=== PATIENT | female | born 1980 | race Caucasian/White ===

== ENCOUNTER 2019-03-11 15:28 | Inpatient (IN) ==
[~2019-03-11 15:28] MED LIST: ETOMIDATE 2 MG/ML 20 ML VIAL IV ONE; ROCURONIUM BROMIDE 10 MG/ML 10 ML VIAL IV ONE
--- OUTSIDE RECORDS SUMMARY | 2019-03-11 15:31 | External Medical Summary | Continuity of Care Document ---
:1980 Author Name Per MAnjum Address Unavailable Unavailable , Care Team Providers Name Role Phone Unavailable Unavailable Unavailable PCP, UNKNOWN Unavailable Unavailable Unavailable Unavailable Unavailable Problems Active medical history not documented Allergies and Adverse Reactions No Known Drug Allergies (Allergy) Medications metFORMIN HCl - 500 MG Oral Tablet; TAKE 2 TABLETS TWICE JULIOCESAR LY , M.D. Refills: 0 Omeprazole 20 MG Oral Tablet Delayed Release; Take 1 tablet daily , M.D. Refills: 0 raNITIdine HCl - 150 MG Oral Tablet; TAKE 1 TABLET TWICE JULIOCESAR LY. , M.D. Refills: 0 Synthroid 300 MCG Oral Tablet; TAKE 1 TABLET Daily TDD:350 m cg , M.D. Refills: 0 Synthroid 50 MCG Oral Tablet; TAKE 1 TABLET Daily TDD:350 mc g , M.D. Refills: 0 Zoloft 100 MG Oral Tablet; TAKE 1 TABLET Daily TDD:150 mg , M.D. Refills: 0 Zoloft 50 MG Oral Tablet; TAKE 1 TABLET Daily TDD:150 mg , M .D. Refills: 0 Procedures Procedures not documented Immunizations Immunizations not documented Plan of Treatment Planned Observations Planned Goals not documented Results No Known Results Results not documented
[2019-03-11] MEDS ORDERED: RAPID SEQUENCE INDUCTION BAG ONE (15:38)
[2019-03-11 15:58] LABS: iSTAT Creatinine 1.1 mg/dl (0.6-1.3); iSTAT Hemoglobin 13.3 g/dl (12.0-16.0); iSTAT Ionized Calcium 1.13 mmol/l (1.12-1.32); iSTAT Potassium 5.6 mEq/L (3.3-5.0)
[2019-03-11 16:06] LABS: Hematocrit (blood only) 37.7 % (37-47); INR 1.2 (0.9-1.1); Mean Corpuscular Hgb Conc 29.2 g/dL (32-36); Mean Corpuscular Volume 80.4 fL (80-100); Mean Platelet Volume 9.6 fL (7.4-10.4); Partial Thromboplastin Ratio 0.8; Partial Thromboplastin Time 22.9 Seconds (21.0-31.0); Platelet Count 239 K/uL (130-400); Prothrombin Time 11.8 Seconds (9.0-12.0); RDW Coefficient of Variation 14.9 % (11.5-14.5); RDW Standard Deviation 43.4 fL (36.4-46.3); Red Blood Count 4.69 M/uL (4.2-5.4); White Blood Count 16.79 K/uL (4.8-10.8)
[2019-03-11 16:12] LABS: Albumin Level 3.9 gm/dl (3.4-5.0); BUN Creatinine Ratio 10.5 (10-20); Calcium 7.5 mg/dl (8.5-10.1); Creatinine Clr Calc Pharmacy 80.8 ml/min; Est GFR (African American) 76.3; Est GFR (Non-African American) 65.8; Magnesium 2.4 mg/dl (1.8-2.4); Potassium 5.5 mmol/L (3.5-5.1)
--- NOTE | 2019-03-11 16:12 | XRay Report ---
XR chest 1V portable CLINICAL HISTORY: Atypical chest pain. Overdose. COMPARISON STUDY: No previous studies for comparison. FINDINGS: The heart is normal in size. There is an endotracheal tube 3 centimeters above the milla.[ There is no pneumothorax on the supine study. There is no focal pulmonary consolidation. There are no pleural effusions. There is mild vascular and interstitial prominence, a finding which may be accent uated by the AP supine technique. Radiographic follow-up is recommended. There are postsurgical deleon es present within the cervical spine. IMPRESSION: 1. Endotracheal tube 3 cm above the milla 2. Mild vascular and interstitial prominence, a finding which may in part be accentuated by the AP acevedo pine technique 3. No evidence of lobar consolidation Electronically signed by: Matt Guillen M.D. 03/11/2019 4:11 PM
[2019-03-11 16:14] LABS: Acetaminophen < 2 ug/ml (10-30); Salicylate < 1.7 mg/dl (2.8-20)
[2019-03-11] MEDS ORDERED: PIPERACILL/TAZOBAC CONSULT ACTIVE PRN ×2 (16:16→19:38)
[2019-03-11] MEDS ORDERED: PIPERACILLIN/TAZOBACTAM 4.5 GM/120 ML BAG IV ONE (16:16)
[2019-03-11 16:17] LABS: Pregnancy Test, Serum Negative (Negative)
[2019-03-11 16:19] LABS: Bilirubin,Total 0.3 mg/dl (0.2-1); Globulin 3.8 gm/dl (2.5-4.0); Total Protein 7.7 gm/dl (6.4-8.2); Troponin I 0.061 ng/ml (0-0.045)
[2019-03-11] MEDS ORDERED: OPTIRAY 320 125ml IV PRN (16:22)
[2019-03-11 16:23] LABS: Appearance Urine Clear (Clear); Bacteria Urine Automated Negative (Negative); Bilirubin Urine Negative (Negative); Blood Urine 1+ (Negative); Color Urine Yellow; Epithelial Cell Urine Auto >30 /lpf (0-5); Glucose Urine UA Negative (Negative); Ketones Urine Negative (Negative); Leukocyte Esterase Urine Negative (Negative); Nitrite Urine Negative (Negative); Protein Urine 1+ (Negative); RBC Urine Automated 0-4 /hpf (0-4); Urobilinogen Urine Negative (Negative)
[2019-03-11 16:23] LABS: Basophils # (auto) 0.02 K/uL (0-0.2); Basophils % (auto) 0.1 %; Eosinophils # (auto) 0.02 K/uL (0-0.5); Eosinophils % (auto) 0.1 %; Hypochromasia Present; Immature Granulocytes # (auto) 0.06 K/uL (0.00-0.02); Immature Granulocytes % (auto) 0.4 %; Lymphocytes # (auto) 1.08 K/uL (1.2-3.4); Lymphocytes % (auto) 6.4 %; Monocytes % (auto) 4.8 %; Neutrophils # (auto) 14.81 K/uL (1.4-6.5); Neutrophils % (auto) 88.2 %; Ovalocytes 1+
[2019-03-11 16:33] LABS: Renal Epithelial Cells Urine 0-5 /lpf (0-5)
--- NOTE | 2019-03-11 16:35 | CT Scan Report ---
CT head/brain wo con CLINICAL HISTORY: altered MS UNRESPONSIVE PATIENT COMPARISON STUDY: No previous studies for comparison. TECHNIQUE: Axial CT of the brain is performed from the vertex to the skull base. IV contrast was not administered for this examination. A dose lowering technique was utilized adhering to the principles of ALARA. CT DOSE: FINDINGS: No intra or extra-axial mass lesions are visualized. There is no CT evidence of acute cortical infarc tion. There is no evidence of midline shift. There is no acute hemorrhage. No calvarial fractures ar e visualized. The study is mildly compromised due to mild motion artifact. There is no evidence of pathologic ventricular dilatation. There is no evidence of acute sinusitis IMPRESSION: No acute intracranial findings Electronically signed by: Matt Guillen M.D. 03/11/2019 4:33 PM
--- NOTE | 2019-03-11 16:39 | CT Scan Report ---
CT ANGIOGRAM OF THE CHEST CLINICAL HISTORY: Unresponsive patient. Possible acute pulmonary embolism. ATYPICAL CHEST PAIN. COMPARISON STUDY: Chest x-ray dated 03/11/2019 TECHNIQUE: Following the IV administration of 120 mL of Optiray-320, CT angiogram of the thorax was p erformed from the thoracic inlet to the lung bases utilizing the pulmonary embolus protocol. Images a re reviewed in the axial, sagittal, and coronal planes. IV contrast was administered without complica tion. MIP imaging was performed. A dose lowering technique was utilized adhering to the principles o f ALARA. CT DOSE: FINDINGS: Visualized portions the upper abdomen reveal hepatic steatosis. No pathologically enlarged axillary mediastinal or hilar lymph nodes were visualized. There was no evidence of thoracic aortic dilatation. There were no pulmonary artery filling defects to indicate acute pulmonary embolism. No pleural effusions are visualized. There are patchy bilateral airspace opacities with dense lower lobe atelectasis/consolidation. Aspira tion must be considered. There is mild interlobular septal edema visualized towards the lung apices. There is an endotracheal tube 22 mm above the milla. IMPRESSION: 1. No evidence of acute pulmonary pulmonary embolism 2. Endotracheal tube 22 mm above the milla 3. Mild interlobular septal edema visualized towards the lung apices 4. Patchy bilateral airspace opacities with dense dependent lower lobe atelectasis/consolidation. Asp iration must be considered. Electronically signed by: Matt Guillen M.D. 03/11/2019 4:37 PM
--- NOTE | 2019-03-11 16:41 | CT Scan Report ---
CT angio head w con CLINICAL HISTORY: Unresponsive patient with altered mental status. TECHNIQUE: CT angiography of the head was performed in a dynamic helical fashion during intravenous a dministration of 120 cc of Optiray 320. MIP imaging was performed. A dose lowering technique was util ized adhering to the principles of ALARA. CT DOSE: COMPARISON STUDY: Noncontrast head CT dated 03/11/2019 FINDINGS: There are no lesion suspicious for aneurysm. There are no major intracranial branch occlusi ons. The dural venous sinuses appear patent. IMPRESSION: Normal study. Electronically signed by: Matt Guillen M.D. 03/11/2019 4:40 PM
[2019-03-11 16:48] LABS: Amphetamines+Metham, Urine Neg (Neg); Barbiturates, Urine Pos (Neg); Benzodiazepine, Urine Pos (Neg); Cocaine, Urine Neg (Neg); MDMA (Ecstacy), Urine Neg (Neg); Methadone, Urine Neg (Neg); Opiate, Urine Pos (Neg); Phencyclidine, Urine Neg (Neg)
--- NOTE | 2019-03-11 16:48 | CT Scan Report ---
CT angio neck with con CLINICAL HISTORY: Altered mental status. Possible stroke. COMPARISON STUDY: No previous studies for comparison. TECHNIQUE: CT angiography was performed from the aortic arch to the skull base. MIP imaging was perfo rmed. The patient was scanned in a dynamic helical fashion during intravenous administration of 120 c c of Optiray 320. A dose lowering technique was utilized adhering to the principles of ALARA. CT DOSE: 2600.27 mGy.cm Technique: CT angiogram of the carotid and vertebral arteries was obtained using intravenous contrast and 3-D reconstruction. NASCET criteria was utilized. Findings: The visualized portions of lung apices reveal endotracheal tube. There is mild apical interlobular se ptal edema. There are bilateral pulmonary airspace opacities. The right carotid revealed no evidence of aneurysm and no evidence of dissection. There is no evidenc e of hemodynamic significant stenosis. The left carotid revealed no evidence of hemodynamic significant stenosis. There is no evidence of an eurysm. There is no evidence of dissection. There is a dominant left vertebral artery. Evaluation of the small right vertebral artery is limited due to artifact from cervical spinal hardware. The right vertebral artery is difficult to visualize a t the C5-C7 levels.. The proximal and distal right vertebral artery appear patent. IMPRESSION: 1. No evidence of hemodynamic significant carotid artery stenosis or dissection 2. Dominant left vertebral artery, no evidence of left vertebral artery stenosis or dissection 3. Nondiagnostic evaluation of the small right vertebral artery at the C5-C7 levels due to artifact f rom cervical spinal hardware Electronically signed by: Matt Guillen M.D. 03/11/2019 4:47 PM
--- NOTE | 2019-03-11 16:56 | CT Scan Report ---
CT SCAN OF THE ABDOMEN AND PELVIS WITH IV CONTRAST CLINICAL HISTORY: Unresponsive. COMPARISON STUDY: Pelvic ultrasound dated 08/24/2009. Abdominal ultrasound dated 08/16/2009. TECHNIQUE: Following the IV administration of 120 cc of Optiray 320, CT scan of the abdomen and pelv is is performed from the lung bases to the proximal femora. Images are reviewed in the axial, sagitta l, and coronal planes. IV contrast was administered without complication. A dose lowering technique w as utilized adhering to the principles of ALARA. The examination is degraded by motion artifact, as w ell as by streak artifact from the arms which could not elevated above the abdomen. FINDINGS: Lung bases: The heart is normal in size and without pericardial effusion. There is dense bibasilar ai rspace consolidation. Trace pleural effusions are noted. Liver: The contrast-enhanced liver is enlarged, measuring 21.5 cm in length. The liver demonstrates d iffusely heterogeneously diminished attenuation consistent with hepatic steatosis. There is nodularit y of the hepatic surface contour indicating early change of cirrhosis. There is no intrahepatic bilia ry ductal dilatation. The hepatic veins and portal veins are patent. There is recanalization of the p eriumbilical vein. Gallbladder: Surgically absent noting clips in the gallbladder fossa. Spleen: The spleen is enlarged, measuring 16.9 cm in length. Pancreas: Unremarkable. Adrenal glands: Adrenal glands appear hyperemic. This is a nonspecific finding and can be seen in set ting of hypotension/shock. Kidneys: The contrast enhanced kidneys are normal in size and without hydronephrosis. The kidneys enh ance symmetrically. There is an 11 mm low-attenuation lesion in the lower pole of the left kidney see n on image #[id number]. Abdominal vasculature: The abdominal aorta is normal in course and caliber. Bowel: Postoperative change is noted in the stomach. There is mild colonic fecal retention. No bowel obstruction is seen. The appendix is well-visualized and normal. Peritoneum: There is no intraperitoneal free air or abdominal ascites. Lymphadenopathy: None. Pelvic viscera: The bladder is partially decompressed and a Du catheter. Foci of intraluminal gas are likely related to instrumentation. The uterus is normal as imaged. There is a dilated tubular str ucture in the left adnexa seen on image #449. The measures up to 12 mm, and the wall appears thickene d and hyperemic. A similar-appearing dilated tubular structure seen in the right adnexa on image #410 . Skeletal structures: No lytic or blastic lesions are seen. IMPRESSION: 1. There is dense bibasilar airspace consolidation, typical in appearance for pneumonia. Clinical cor relation will be required and radiographic follow-up to resolution is recommended. 2. The liver is enlarged, cirrhotic in morphology, and steatotic. 3. Splenomegaly and recanalization of the periumbilical vein indicate portal hypertension. 4. The adrenal glands appear hyperemic. This is a nonspecific finding and can be seen in setting of h ypotension/shock. Clinical correlation will be required. 5. There is an indeterminant 11 mm low-attenuation lesion in the lower pole of the left kidney. This does not represent a simple cyst. Correlation with a nonemergent MRI of the kidneys recommended for f urther assessment. 6. There are dilated tubular structures seen in the adnexa bilaterally. These appear to be thick-wall ed and hyperemic, and may represent hydrosalpinx. Infection is not excluded. Gynecology follow-up is recommended. 7. Additional findings as above. Electronically signed by: Davide Vines M.D. 03/11/2019 4:55 PM
[2019-03-11] MEDS ORDERED: SODIUM CHLORIDE 0.9% 1000ML 1,000 ML IV ONE ×2 (16:57→17:44)
[2019-03-11] MEDS ORDERED: LIDOCAINE HCL 1% 20 ML VIAL INFIL ONE (17:15)
--- NOTE | 2019-03-11 17:40 | History & Physical Report ---
Date of Service March 11, 2019 Assessment & Plan (1) Unresponsive: Uncertain etiology, intubated prior to ED Starting to become responsive, following basic commands Ammonia levels elevated, uncertain as to why Utox + for opiates, benzos, barbituates but pt is prescribed all of these things LP pending, done in the ED Zosyn started in the ED, continue Lactulose given in the ED Holding home meds ICU transfer (2) Elevated troponin: 0.061, serials pending EKG WNL (3) DVT prophylaxis: As per ICU History of Present Illness Primary Care Provider: Endy Stanley 38 y/o F who was brought to the ED after being found unresponsive. She was intubated in the field pre-[facility]. it is unclear why pt is unresponsive. Unable to obtain HPI/ROS due to pt's current status Allergies Allergy/AdvReac Type Severity Reaction Status Date / Time acetaminophen Allergy Unknown FROM Verified 09/29/09 04:38 TYLENOL #3, HIVES/REDDENED SKIN codeine Allergy Unknown FROM Verified 09/29/09 04:38 TYLENOL #3, HIVES/REDDENED SKIN Home Medications Home Medications Medication Instructions Recorded Confirmed Type alprazolam [Xanax] 1 mg PO BID PRN 03/11/19 03/11/19 History aspirin [Aspir-81] 81 mg PO UD 03/11/19 03/11/19 History lykonfnzeh-sbagcjtpllmut-teho 1 cap PO Q4 PRN 03/11/19 03/11/19 History [Esgic] cyclobenzaprine 10 mg PO BID PRN 03/11/19 03/11/19 History esomeprazole magnesium [Nexium] 40 mg PO DAILY 03/11/19 03/11/19 History furosemide [Lasix] 20 mg PO DAILY 03/11/19 03/11/19 History gabapentin [Neurontin] 300 mg PO QID 03/11/19 03/11/19 History hydroxyzine HCl 10 mg PO QID PRN 03/11/19 03/11/19 History levothyroxine 300 mcg PO QAM 03/11/19 03/11/19 History linaclotide [Linzess] 290 mcg PO DAILY 03/11/19 03/11/19 History linagliptin [Tradjenta] 5 mg PO DAILY 03/11/19 03/11/19 History lisinopril 20 mg PO DAILY 03/11/19 03/11/19 History metformin 1,000 mg PO BID 03/11/19 03/11/19 History methocarbamol [Robaxin-750] 1,500 mg PO BID PRN 03/11/19 03/11/19 History nadolol 20 mg PO DAILY 03/11/19 03/11/19 History ondansetron HCl [Zofran] 4 mg PO UD PRN 03/11/19 03/11/19 History oxycodone [Roxicodone] 5 mg PO .Q4-6 PRN 03/11/19 03/11/19 History pantoprazole [Protonix] 40 mg PO QAM 03/11/19 03/11/19 History pseudoephedrine HCl 120 mg PO Q12H PRN 03/11/19 03/11/19 History ranitidine HCl 150 mg PO BID 03/11/19 03/11/19 History rifaximin [Xifaxan] 550 mg PO BID 03/11/19 03/11/19 History ropinirole 6 mg PO HS 03/11/19 03/11/19 History spironolactone [Aldactone] 150 mg PO DAILY 03/11/19 03/11/19 History tramadol [Ultram] 50 mg PO Q6 PRN 03/11/19 03/11/19 History venlafaxine [Effexor XR] 150 mg PO DAILY 03/11/19 03/11/19 History Past Med/Surg History Medical History No known problems Family History Other No known problems Social History Smoking Status: Current every day smoker Physical Exam Constitutional: WD/WN, vitals as above Eyes: normal visual poon by confrontation and + anicteric sclerae Neck: normal visual inspection and trachea midline Respiratory: normal respiratory effort, lungs clear to auscultation Cardiovascular: Rate/Rhythm: regular rate and regular rhythm Gastrointestinal (Abdomen): Inspection/Auscultation: abdomen not distended Percussion/Palpation: abdomen soft; abdomen nontender Musculoskeletal: Head/Neck/Chest: normocephalic; + evidence of head trauma (bruising around mouth) negative for edema, peripheral pulses intact Skin: no rashes, warm and dry Neurologic: awake; not confused Speech / Cognition: normal speech Psychiatric: opens eyes to name and made eye contact Attempting to mushroom picker hands b/l when instructed, but only minimal movement Wiggles toes and attempts to move LE when instructed, but only minimal movement Results & Data Vital Signs (Past 12 Hours) Vital Signs Temp Pulse Resp BP Pulse Ox 03/11/19 16:37 16 03/11/19 16:33 97 H 133/93 100 03/11/19 15:49 106 H 142/96 H 92 03/11/19 15:39 36.4 C L 96 H 10 L 121/88 98 03/11/19 15:32 95 H 9 L 121/88 97 Diagnostic Findings CXR: neg for acute CT head: neg for acute CTAP: 1. There is dense bibasilar airspace consolidation, typical in appearance for pneumonia. Clinical correlation will be required and radiographic follow-up to resolution is recommended. 2. The liver is enlarged, cirrhotic in morphology, and steatotic. 3. Splenomegaly and recanalization of the periumbilical vein indicate portal hypertension. 4. The adrenal glands appear hyperemic. This is a nonspecific finding and can be seen in setting of hypotension/shock. Clinical correlation will be required. 5. There is an indeterminant 11 mm low-attenuation lesion in the lower pole of the left kidney. This does not represent a simple cyst. Correlation with a nonemergent MRI of the kidneys recommended for further assessment. 6. There are dilated tubular structures seen in the adnexa bilaterally. These appear to be thick-walled and hyperemic, and may represent hydrosalpinx. Infection is not excluded. Gynecology follow-up is recommended. 7. Additional findings as above. CTA: neg PE, ?? asp PNA Head/neck CTA: neg for acute ECG Rhythm: normal sinus Code Status & VTE Plan Code Status unable to discuss VTE Prophylaxis Plan VTE Prophylaxis will be ordered: Yes PG Care Time/CCT Total # of Minutes Spent Total Time Spent with Patient: Total time spent is greater than 50% in coordination of care (as documented) at patient's floor/unit and/or counseling patient:
[2019-03-11 18:18] LABS: Total Protein CSF 38.8 mg/dl (15-45)
[2019-03-11 18:37] LABS: Appearance CSF Clear; CSF Count Tube # 3; Color CSF Colorless
[2019-03-11 18:38] LABS: CSF Xanthrochromic No xanthochromia
[2019-03-11] MEDS ORDERED: DEXAMETHASONE SOD PHOSPHATE 10 MG in SYRINGE 0 ML IV SCH (18:40)
[2019-03-11] MEDS ORDERED: cefTRIAXone SODIUM 2,000 MG in DEXTROSE 5% 50 ML IV STA (18:41)
[2019-03-11] MEDS ORDERED: VANCOMYCIN HCL 2,250 MG in SODIUM CHLORIDE 0.9% 500 ML IV STA (18:42)
[2019-03-11] MEDS ORDERED: DEXAMETHASONE SOD INJ 4 MG/ML VIAL IV STA (18:44)
[2019-03-11] MEDS ORDERED: AMPICILLIN 2,000 MG in SODIUM CHLOR 0.9% AD-VAN 100 ML IV ONE (19:30)
--- NOTE | 2019-03-11 19:35 | Emergency Department Note ---
Entered by Sonia Garcia acting as a scribe for Mikal Bellamy DO History of Present Illness General Chief complaint: Unresponsive Stated complaint: UNRESPONESIVE Source: EMS History of Present Illness Provider complaint: Unresponsive Onset (ago): hour(s) 4 Location: head (fatigue) The patient is a 38 year old female who presents to the ED with complaints of an episode of unresponsiveness that happened 4 hours ago. Per EMS: the patient was last talked to at 11 am and was fatigue and wanted to go back to bed. They found a lot of medications around her house including Flexeril and oxycodone. Her stats were low and she looked like she vomited. They note the patient opened her eyes when they talked to her. Her pupils were 4 mm and very sluggish. The patient has a history of a broken neck in December and has a neck collar. The patient had a 7.52 inner tracheal tube and 26 at the lip. HPI is limited secondary to the patients unresponsiveness. Home Medications Home Medications Medication Instructions Recorded Confirmed Type alprazolam [Xanax] 1 mg PO BID PRN 03/11/19 03/11/19 History aspirin [Aspir-81] 81 mg PO DAILY 03/11/19 03/12/19 History vbxtnuhoes-ktpiuhbhkhurc-qune 1 cap PO Q4 PRN 03/11/19 03/11/19 History [Esgic] cyclobenzaprine 10 mg PO BID PRN 03/11/19 03/11/19 History esomeprazole magnesium [Nexium] 40 mg PO DAILY 03/11/19 03/11/19 History furosemide [Lasix] 40 mg PO DAILY 03/11/19 03/12/19 History gabapentin [Neurontin] 900 mg PO QID 03/11/19 03/12/19 History levothyroxine 300 mcg PO QAM 03/11/19 03/11/19 History linaclotide [Linzess] 290 mcg PO DAILY 03/11/19 03/11/19 History linagliptin [Tradjenta] 5 mg PO DAILY 03/11/19 03/11/19 History lisinopril 20 mg PO DAILY 03/11/19 03/11/19 History metformin 500 mg PO BID 03/11/19 03/12/19 History methocarbamol [Robaxin-750] 1,500 mg PO TID PRN 03/11/19 03/12/19 History nadolol 20 mg PO DAILY 03/11/19 03/11/19 History ondansetron HCl [Zofran] 4 mg PO UD PRN 03/11/19 03/11/19 History oxycodone [Roxicodone] 5 mg PO .Q4-6 PRN 03/11/19 03/11/19 History ranitidine HCl 150 mg PO BID 03/11/19 03/11/19 History rifaximin [Xifaxan] 550 mg PO BID 03/11/19 03/11/19 History ropinirole 6 mg PO HS 03/11/19 03/11/19 History spironolactone [Aldactone] 150 mg PO DAILY 03/11/19 03/11/19 History tramadol [Ultram] 50 mg PO Q6 PRN 03/11/19 03/11/19 History venlafaxine [Effexor XR] 150 mg PO DAILY 03/11/19 03/11/19 History lactulose 10 g PO DAILY PRN 03/12/19 03/12/19 History metoclopramide HCl 5 mg PO DAILY PRN 03/12/19 03/12/19 History Allergies Allergy/AdvReac Type Severity Reaction Status Date / Time acetaminophen Allergy Unknown FROM Verified 09/29/09 04:38 TYLENOL #3, HIVES/REDDENED SKIN codeine Allergy Unknown FROM Verified 09/29/09 04:38 TYLENOL #3, HIVES/REDDENED SKIN Past Med/Surg History Medical History No known problems Anemia Cirrhosis Diabetes mellitus, type 2 Fusion of spine Hyperthyroidism Stroke Surgical History History of bilateral tubal ligation History of cholecystectomy Family History Other No known problems Social History Preferred Language: Hungarian Communication Ability: Effective Cottrell Operator Required: No Beliefs That Will Affect Care: None Current Living Situation: Family Other Information That Helps Us Care for You: Yes Feels Safe at Home: Yes Safety Concerns: Feels Safe At This Time Smoking Status: Never smoker Do You Dip or Chew Tobacco: No Second Hand Exposure: No Hx Alcohol Use: No Hx Substance Use: No Review of Systems Other (ROS is limited secondary to the patients unresponsiveness. ) Physical Exam Vital Signs Vital Signs - 24 hr 03/11/19 15:32 03/11/19 15:39 03/11/19 15:49 Temperature 36.4 C L Temperature Source Rectal Sepsis Recent Fever Within 48 Hours No Sepsis New/Unexplained Change in Mental Status No Sepsis Action Taken by Nursing No Action Required End-Tidal CO2 Pulse Rate 95 H 96 H 106 H Pulse Rate from SpO2 Sensor 96 H 107 H Pulse Rhythm Regular Pulse Strength Normal Respiratory Rate 9 L 10 L Blood Pressure 121/88 121/88 142/96 H Blood Pressure Mean 99 99 111 Blood Pressure Position Lying Pulse Oximetry 97 98 92 Oxygen Delivery Method Non-rebreather Oxygen Flow Rate 15 Fraction of Inspired Oxygen 03/11/19 16:33 03/11/19 16:37 03/11/19 16:49 Temperature Temperature Source Sepsis Recent Fever Within 48 Hours Sepsis New/Unexplained Change in Mental Status Sepsis Action Taken by Nursing End-Tidal CO2 61 54 Pulse Rate 97 H 92 H Pulse Rate from SpO2 Sensor 93 H Pulse Rhythm Pulse Strength Respiratory Rate 16 Blood Pressure 133/93 112/80 Blood Pressure Mean 106 90 Blood Pressure Position Pulse Oximetry 100 96 Oxygen Delivery Method Mechanical Vent Mechanical Vent Oxygen Flow Rate Fraction of Inspired Oxygen 100 03/11/19 17:00 03/11/19 17:15 03/11/19 17:31 Temperature Temperature Source Sepsis Recent Fever Within 48 Hours Sepsis New/Unexplained Change in Mental Status Sepsis Action Taken by Nursing End-Tidal CO2 53 49 49 Pulse Rate 90 89 93 H Pulse Rate from SpO2 Sensor 90 89 93 H Pulse Rhythm Pulse Strength Respiratory Rate Blood Pressure 106/79 117/82 109/64 Blood Pressure Mean 88 93 79 Blood Pressure Position Pulse Oximetry 97 99 100 Oxygen Delivery Method Mechanical Vent Mechanical Vent Mechanical Vent Oxygen Flow Rate Fraction of Inspired Oxygen 03/11/19 17:45 Temperature Temperature Source Sepsis Recent Fever Within 48 Hours Sepsis New/Unexplained Change in Mental Status Sepsis Action Taken by Nursing End-Tidal CO2 51 Pulse Rate 92 H Pulse Rate from SpO2 Sensor 92 H Pulse Rhythm Pulse Strength Respiratory Rate Blood Pressure 115/72 Blood Pressure Mean 86 Blood Pressure Position Pulse Oximetry 100 Oxygen Delivery Method Oxygen Flow Rate Fraction of Inspired Oxygen GENERAL: Patient does not respond to verbal or physical stimuli. Somnolent EYES: Pupils were mid-sized and reactive bilaterally. EARS, NOSE, MOUTH AND THROAT: The nose is without any evidence of any deformity. Mucous membranes are moist.Tongue is midline Jaw was quenched and secretion was noted. NECK: Rigid cervical collar was in place prior to arrival. RESPIRATORY: Shallow and ineffective respiration were noted. Scattered rhonchi were noted. to auscultation. CARDIOVASCULAR: Regular rate and rhythm noted. There no murmurs rubs or gallops normal S1 normal S2 GASTROINTESTINAL: The abdomen is soft and moderately distended. No rigidity n oted. Bowel sounds are present in all quadrants. Abdomen is nontender. MUSCULOSKELETAL/EXTREMITIES: There is no evidence of gross deformity. Full range of motion is noted in the hips and shoulders. SKIN: There is no obvious evidence of any rash. There are no petechiae, pallor or cyanosis noted. Cool and pale. No edema appreciated. NEUROLOGIC: Patient does not follow command and does not answer questions. Reflex is absent in extremities. Procedures Lumbar Puncture Time Out Performed: Yes Patient Position: right lateral decubitus Skin Prep: Povidone-Iodine 1% Local Anesthetic: lidocaine 1% Amount of anesthesia used (mL): 4 Spinal Needle Gauge: Other (18G) Interspace Used: L4-L5 Fluid Initially Obtained: clear Complications: none Course 1528: The patient was evaluated in room B1. A complete history and physical exam was performed. 1555: I talked to the family. The patient has a history of encephalopathy. The family notes the patient has been acting funny all day. 1702: I reviewed the patient's case with Dr. Ortega, [employer]. He recommends doing a lumbar puncture. 1707: I reviewed the patient's case with Dr. Suarez, [facility] Hospitalist. Administered Medications Aspirin (Ecotrin Ectab) 81 mg PO QAM [facility] Stop: 04/11/19 09:59 Last Admin: 03/13/19 08:12 Dose: 81 mg Documented by: [id number] Admin: 03/12/19 13:50 Dose: 81 mg Documented by: [id number] Furosemide (Lasix) 40 mg PO DAILY [facility] Stop: 04/11/19 10:29 Last Admin: 03/12/19 12:52 Dose: 40 mg Documented by: [id number] Gabapentin (Neurontin) 900 mg PO QID [facility] Stop: 04/11/19 20:59 Last Admin: 03/13/19 08:11 Dose: 900 mg Documented by: [id number] Admin: 03/12/19 21:04 Dose: 900 mg Documented by: [id number] Insulin Aspart (Novolog Flexpen) 0 units SC ACHS [facility] Stop: 04/11/19 12:40 Last Admin: 03/13/19 08:36 Dose: Not Given Documented by: [id number] Cosigned by: [id number] Admin: 03/12/19 21:24 Dose: Not Given Documented by: [id number] Cosigned by: [id number] Admin: 03/12/19 18:18 Dose: Not Given Documented by: [id number] Cosigned by: [id number] Admin: 03/12/19 14:57 Dose: Not Given Documented by: [id number] Cosigned by: [id number] Ioversol (Optiray 320 125ml) 120 ml IV ONCE PRN PRN Reason: Interaction Checking Stop: 03/15/19 16:21 Last Admin: 03/11/19 16:22 Dose: 120 ml Documented by: [id number] Levothyroxine Sodium (Synthroid) 300 mcg PO QAM [facility] Stop: 04/11/19 10:29 Last Admin: 03/13/19 08:12 Dose: 300 mcg Documented by: [id number] Admin: 03/12/19 12:54 Dose: 300 mcg Documented by: [id number] Metoclopramide HCl (Reglan) 5 mg PO DAILY PRN PRN Reason: Nausea Stop: 04/11/19 17:47 Last Admin: 03/13/19 09:21 Dose: 5 mg Documented by: [id number] Nadolol (Corgard) 20 mg PO DAILY [facility] Stop: 04/11/19 10:29 Last Admin: 03/13/19 08:11 Dose: 20 mg Documented by: [id number] Admin: 03/12/19 12:54 Dose: 20 mg Documented by: [id number] Ondansetron HCl (Zofran) 4 mg IV Q6H PRN PRN Reason: Nausea Stop: 04/12/19 06:17 Last Admin: 03/13/19 08:35 Dose: 4 mg Documented by: [id number] Pantoprazole Sodium (Protonix) 40 mg PO DAILYBB [facility] Stop: 04/11/19 10:29 Last Admin: 03/13/19 06:09 Dose: 40 mg Documented by: [id number] Admin: 03/12/19 12:56 Dose: 40 mg Documented by: [id number] Ranitidine HCl (Zantac) 150 mg PO BID [facility] Stop: 04/11/19 10:29 Last Admin: 03/13/19 08:12 Dose: 150 mg Documented by: [id number] Admin: 03/12/19 21:05 Dose: 150 mg Documented by: [id number] Admin: 03/12/19 12:56 Dose: 150 mg Documented by: [id number] Rifaximin (Xifaxan) 550 mg PO BID [facility] Stop: 04/11/19 10:29 Last Admin: 03/13/19 08:12 Dose: 550 mg Documented by: [id number] Admin: 03/12/19 21:05 Dose: 550 mg Documented by: [id number] Admin: 03/12/19 12:55 Dose: 550 mg Documented by: [id number] Ropinirole HCl (Requip) 6 mg PO HS [facility] Stop: 04/11/19 20:59 Last Admin: 03/12/19 21:04 Dose: 6 mg Documented by: [id number] Spironolactone (Aldactone) 150 mg PO DAILY [facility] Stop: 04/12/19 08:59 Last Admin: 03/13/19 08:10 Dose: 150 mg Documented by: [id number] Venlafaxine HCl (Effexor Extended Release) 150 mg PO DAILY [facility] Stop: 04/11/19 10:29 Last Admin: 03/13/19 08:12 Dose: 150 mg Documented by: [id number] Admin: 03/12/19 12:54 Dose: 150 mg Documented by: [id number] Discontinued Medications Acetaminophen (Tylenol) 325 mg PO NOW STA Stop: 03/13/19 02:59 Last Admin: 03/13/19 03:55 Dose: 325 mg Documented by: [id number] Alprazolam (Xanax) 0.5 mg PO ONE ONE Stop: 03/12/19 22:21 Last Admin: 03/12/19 22:31 Dose: 0.5 mg Documented by: [id number] Piperacillin Sod/Tazobactam Sod (Zosyn) 4.5 gm in 120 mls @ 240 mls/hr IV NOW ONE Stop: 03/11/19 16:45 Last Infusion: 03/11/19 17:15 Dose: 0 mls/hr Documented by: [id number] Admin: 03/11/19 16:46 Dose: 240 mls/hr Documented by: [id number] Sodium Chloride (Nss 1000ml) 1,000 mls @ 999 mls/hr IV .Q1H1M ONE Stop: 03/11/19 17:57 Last Infusion: 03/11/19 17:54 Dose: 0 mls/hr Documented by: [id number] Admin: 03/11/19 17:09 Dose: 999 mls/hr Documented by: [id number] Sodium Chloride (Nss 1000ml) 1,000 mls @ 999 mls/hr IV .Q1H1M ONE Stop: 03/11/19 18:44 Last Infusion: 03/11/19 21:50 Dose: 0 mls/hr Documented by: [id number] Admin: 03/11/19 17:48 Dose: 999 mls/hr Documented by: [id number] Ceftriaxone Sodium 2,000 mg/ (Dextrose) 70 mls @ 140 mls/hr IV NOW STA Stop: 03/11/19 19:10 Last Infusion: 03/11/19 20:30 Dose: 0 mls/hr Documented by: [id number] Admin: 03/11/19 19:49 Dose: 140 mls/hr Documented by: [id number] Vancomycin HCl 2,250 mg/ (Sodium Chloride) 545 mls @ 200 mls/hr IV NOW STA Stop: 03/11/19 21:25 Last Infusion: 03/11/19 23:00 Dose: 0 mls/hr Documented by: [id number] Admin: 03/11/19 19:49 Dose: 200 mls/hr Documented by: [id number] Dexamethasone Sodium Phosphate (10 mg/ Syringe) 2.5 mls @ 1 mls/min IV TODAY@1840 [facility] Stop: 03/11/19 23:59 Last Admin: 03/11/19 19:48 Dose: 1 mls/min Documented by: [id number] Ampicillin Sodium 2,000 mg/ (Sodium Chloride) 100 mls @ 200 mls/hr IV TODAY@1930 ONE Stop: 03/11/19 19:59 Last Infusion: 03/11/19 22:15 Dose: 0 mls/hr Documented by: [id number] Admin: 03/11/19 21:31 Dose: 200 mls/hr Documented by: [id number] Acyclovir Sodium 550 mg/ (Dextrose) 111 mls @ 100 mls/hr IV NOW ONE Stop: 03/11/19 21:06 Last Admin: 03/11/19 21:20 Dose: Not Given Documented by: [id number] Dextrose/Sodium Chloride (D5w And Nss) 1,000 mls @ 100 mls/hr IV .Q10H [facility] Stop: 04/10/19 19:59 Last Admin: 03/11/19 21:50 Dose: Not Given Documented by: [id number] Sodium Chloride (Nss) 500 mls @ 125 mls/hr IV .Q4H [facility] Stop: 03/12/19 00:14 Last Infusion: 03/12/19 01:45 Dose: 0 mls/hr Documented by: [id number] Admin: 03/11/19 21:30 Dose: 125 mls/hr Documented by: [id number] Lidocaine HCl (Xylocaine 1% (Local)) 20 ml INFIL NOW ONE Stop: 03/11/19 17:16 Last Admin: 03/11/19 17:42 Dose: Not Given Documented by: [id number] Miscellaneous () Confirm Administered Dose 1 ea .ROUTE .STK-MED ONE Stop: 03/11/19 15:39 Last Admin: 03/11/19 19:46 Dose: Not Given Documented by: [id number] Ondansetron HCl (Zofran) 4 mg IV ONE ONE Stop: 03/12/19 22:21 Last Admin: 03/12/19 22:31 Dose: 4 mg Documented by: [id number] Medical Decision Making Differential Diagnosis Differential Diagnosis: Etiologies such as metabolic, infection, hypoglycemia, electrolyte abnormalities, cardiac sources, intracerebral event, toxicologic, neurologic, as well as others were entertained, Medical Records Attestation: I reviewed the patient's medical records. Home Medications Current Medication List: was personally reviewed by me Laboratory Data Attestation: I reviewed the patient's lab results. Result diagrams: 03/13/19 06:20 03/13/19 06:20 Lab Results 03/11/19 03/11/19 03/11/19 Range/Units 15:38 15:38 15:38 WBC 16.79 H (4.8-10.8) K/uL RBC 4.69 (4.2-5.4) M/uL Hgb 11.0 L (12.0-16.0) g/dL POC Hgb (12.0-16.0) g/dl Hct 37.7 (37-47) % POC Hct (37-47) % MCV 80.4 (80-100) fL MCH 23.5 L (25-34) pg MCHC 29.2 L (32-36) g/dL RDW Std Deviation 43.4 (36.4-46.3) fL RDW Coeff of Henna 14.9 H (11.5-14.5) % Plt Count 239 (130-400) K/uL MPV 9.6 (7.4-10.4) fL Immature Gran % (Auto) 0.4 % Neut % (Auto) 88.2 % Lymph % (Auto) 6.4 % [place] % (Auto) 4.8 % Eos % (Auto) 0.1 % Baso % (Auto) 0.1 % Immature Gran # (Auto) 0.06 H (0.00-0.02) K/uL Neut # (Auto) 14.81 H (1.4-6.5) K/uL Lymph # (Auto) 1.08 L (1.2-3.4) K/uL [place] # (Auto) 0.80 H (0.11-0.59) K/uL Eos # (Auto) 0.02 (0-0.5) K/uL Baso # (Auto) 0.02 (0-0.2) K/uL Hypochromasia Present Ovalocytes 1+ PT 11.8 (9.0-12.0) Seconds INR 1.2 H (0.9-1.1) APTT 22.9 (21.0-31.0) Seconds PTT Ratio 0.8 Specimen Type POC pH (7.35-7.45) POC pCO2 (35-46) mmHg POC pO2 (80-95) mmHg POC HCO3 (19-24) neil/L POC Base Excess (-9-1.8) neil/L POC Sodium (135-144) mEq/L Sodium 139 (136-145) mmol/L POC Potassium (3.3-5.0) mEq/L Potassium 5.5 H (3.5-5.1) mmol/L POC Chloride (101-112) mEq/L Chloride 109 H (98-107) mmol/L Carbon Dioxide 26 (21-32) mmol/L POC Total CO2 (24-31) mEq/l Anion Gap 5.0 (3-11) POC Anion Gap (16-25) mmol/L POC BUN (7-18) mg/dl BUN 11 (7-18) mg/dl Creatinine 1.07 (0.6-1.2) mg/dl POC Creatinine (0.6-1.3) mg/dl Est Cr Clr Drug Dosing 80.8 ml/min Est GFR ( Amer) 76.3 Est GFR (Non-Af Amer) 65.8 BUN/Creatinine Ratio 10.5 (10-20) Glucose 100 H (70-99) mg/dl POC Glucose (other) (70-99) mg/dl Lactate (0.4-2.0) mmol/L Calcium 7.5 L (8.5-10.1) mg/dl POC Ioniz Calcium Carol (1.12-1.32) mmol/l Magnesium 2.4 (1.8-2.4) mg/dl Total Bilirubin 0.3 (0.2-1) mg/dl AST 137 H (15-37) U/L ALT 49 (12-78) U/L Alkaline Phosphatase 122 H (45-117) U/L Ammonia (11-32) umol/L Total Creatine Kinase 760 H (26-192) U/L Troponin I 0.061 H* (0-0.045) ng/ml Total Protein 7.7 (6.4-8.2) gm/dl Albumin 3.9 (3.4-5.0) gm/dl Globulin 3.8 (2.5-4.0) gm/dl Albumin/Globulin Ratio 1.0 (0.9-2) Lipase 134 (73-393) U/L HCG, Qual (Negative) Urine Color Urine Appearance (Clear) Urine pH (4.5-7.5) Ur Specific [facility] (1.000-1.030) Urine Protein (Negative) Urine Glucose (UA) (Negative) Urine Ketones (Negative) Urine Blood (Negative) Urine Nitrite (Negative) Urine Bilirubin (Negative) Urine Urobilinogen (Negative) Ur Leukocyte Esterase (Negative) Urine WBC (Auto) (0-5) /hpf Urine RBC (Auto) (0-4) /hpf U Hyaline Cast (Auto) (0-5) /lpf U Epithel Cells (Auto) (0-5) /lpf Urine Bacteria (Auto) (Negative) Ur Renal Epithelial Cell (0-5) /lpf CSF Appearance CSF Color Xanthrochromic CSF WBC (0-5) /uL CSF RBC (0-) /uL CSF Cell Count Tube # CSF Chemistry Tube # CSF Glucose (40-70) mg/dl CSF Total Protein (15-45) mg/dl Salicylates (2.8-20) mg/dl Urine Opiates Screen (Neg) Ur Methadone, Qual (Neg) Acetaminophen (10-30) ug/ml Urine Barbiturates (Neg) Ur Phencyclidine (PCP) (Neg) U Amphetamin/Meth Scrn (Neg) MDMA (Ecstasy) Screen (Neg) U Benzodiazepines Scrn (Neg) Ur Cocaine Metabolite (Neg) U Marijuana (THC) Screen (Neg) Ethyl Alcohol mg/dL (0-3) mg/dl 03/11/19 03/11/19 03/11/19 Range/Units 15:38 15:38 15:38 WBC (4.8-10.8) K/uL RBC (4.2-5.4) M/uL Hgb (12.0-16.0) g/dL POC Hgb (12.0-16.0) g/dl Hct (37-47) % POC Hct (37-47) % MCV (80-100) fL MCH (25-34) pg MCHC (32-36) g/dL RDW Std Deviation (36.4-46.3) fL RDW Coeff of Henna (11.5-14.5) % Plt Count (130-400) K/uL MPV (7.4-10.4) fL Immature Gran % (Auto) % Neut % (Auto) % Lymph % (Auto) % [place] % (Auto) % Eos % (Auto) % Baso % (Auto) % Immature Gran # (Auto) (0.00-0.02) K/uL Neut # (Auto) (1.4-6.5) K/uL Lymph # (Auto) (1.2-3.4) K/uL [place] # (Auto) (0.11-0.59) K/uL Eos # (Auto) (0-0.5) K/uL Baso # (Auto) (0-0.2) K/uL Hypochromasia Ovalocytes PT (9.0-12.0) Seconds INR (0.9-1.1) APTT (21.0-31.0) Seconds PTT Ratio Specimen Type POC pH (7.35-7.45) POC pCO2 (35-46) mmHg POC pO2 (80-95) mmHg POC HCO3 (19-24) neil/L POC Base Excess (-9-1.8) neil/L POC Sodium (135-144) mEq/L Sodium (136-145) mmol/L POC Potassium (3.3-5.0) mEq/L Potassium (3.5-5.1) mmol/L POC Chloride (101-112) mEq/L Chloride (98-107) mmol/L Carbon Dioxide (21-32) mmol/L POC Total CO2 (24-31) mEq/l Anion Gap (3-11) POC Anion Gap (16-25) mmol/L POC BUN (7-18) mg/dl BUN (7-18) mg/dl Creatinine (0.6-1.2) mg/dl POC Creatinine (0.6-1.3) mg/dl Est Cr Clr Drug Dosing ml/min Est GFR ( Amer) Est GFR (Non-Af Amer) BUN/Creatinine Ratio (10-20) Glucose (70-99) mg/dl POC Glucose (other) (70-99) mg/dl Lactate (0.4-2.0) mmol/L Calcium (8.5-10.1) mg/dl POC Ioniz Calcium Carol (1.12-1.32) mmol/l Magnesium (1.8-2.4) mg/dl Total Bilirubin (0.2-1) mg/dl AST (15-37) U/L ALT (12-78) U/L Alkaline Phosphatase (45-117) U/L Ammonia (11-32) umol/L Total Creatine Kinase (26-192) U/L Troponin I (0-0.045) ng/ml Total Protein (6.4-8.2) gm/dl Albumin (3.4-5.0) gm/dl Globulin (2.5-4.0) gm/dl Albumin/Globulin Ratio (0.9-2) Lipase (73-393) U/L HCG, Qual Negative (Negative) Urine Color Urine Appearance (Clear) Urine pH (4.5-7.5) Ur Specific [facility] (1.000-1.030) Urine Protein (Negative) Urine Glucose (UA) (Negative) Urine Ketones (Negative) Urine Blood (Negative) Urine Nitrite (Negative) Urine Bilirubin (Negative) Urine Urobilinogen (Negative) Ur Leukocyte Esterase (Negative) Urine WBC (Auto) (0-5) /hpf Urine RBC (Auto) (0-4) /hpf U Hyaline Cast (Auto) (0-5) /lpf U Epithel Cells (Auto) (0-5) /lpf Urine Bacteria (Auto) (Negative) Ur Renal Epithelial Cell (0-5) /lpf CSF Appearance CSF Color Xanthrochromic CSF WBC (0-5) /uL CSF RBC (0-) /uL CSF Cell Count Tube # CSF Chemistry Tube # CSF Glucose (40-70) mg/dl CSF Total Protein (15-45) mg/dl Salicylates < 1.7 L (2.8-20) mg/dl Urine Opiates Screen (Neg) Ur Methadone, Qual (Neg) Acetaminophen < 2 L (10-30) ug/ml Urine Barbiturates (Neg) Ur Phencyclidine (PCP) (Neg) U Amphetamin/Meth Scrn (Neg) MDMA (Ecstasy) Screen (Neg) U Benzodiazepines Scrn (Neg) Ur Cocaine Metabolite (Neg) U Marijuana (THC) Screen (Neg) Ethyl Alcohol mg/dL < 3.0 (0-3) mg/dl 03/11/19 03/11/19 03/11/19 Range/Units 15:39 15:42 15:52 WBC (4.8-10.8) K/uL RBC (4.2-5.4) M/uL Hgb (12.0-16.0) g/dL POC Hgb 13.3 (12.0-16.0) g/dl Hct (37-47) % POC Hct 39 (37-47) % MCV (80-100) fL MCH (25-34) pg MCHC (32-36) g/dL RDW Std Deviation (36.4-46.3) fL RDW Coeff of Henna (11.5-14.5) % Plt Count (130-400) K/uL MPV (7.4-10.4) fL Immature Gran % (Auto) % Neut % (Auto) % Lymph % (Auto) % [place] % (Auto) % Eos % (Auto) % Baso % (Auto) % Immature Gran # (Auto) (0.00-0.02) K/uL Neut # (Auto) (1.4-6.5) K/uL Lymph # (Auto) (1.2-3.4) K/uL [place] # (Auto) (0.11-0.59) K/uL Eos # (Auto) (0-0.5) K/uL Baso # (Auto) (0-0.2) K/uL Hypochromasia Ovalocytes PT (9.0-12.0) Seconds INR (0.9-1.1) APTT (21.0-31.0) Seconds PTT Ratio Specimen Type POC pH (7.35-7.45) POC pCO2 (35-46) mmHg POC pO2 (80-95) mmHg POC HCO3 (19-24) neil/L POC Base Excess (-9-1.8) neil/L POC Sodium 139 (135-144) mEq/L Sodium (136-145) mmol/L POC Potassium 5.6 H (3.3-5.0) mEq/L Potassium (3.5-5.1) mmol/L POC Chloride 104 (101-112) mEq/L Chloride (98-107) mmol/L Carbon Dioxide (21-32) mmol/L POC Total CO2 25 (24-31) mEq/l Anion Gap (3-11) POC Anion Gap 17.0 (16-25) mmol/L POC BUN 11 (7-18) mg/dl BUN (7-18) mg/dl Creatinine (0.6-1.2) mg/dl POC Creatinine 1.1 (0.6-1.3) mg/dl Est Cr Clr Drug Dosing ml/min Est GFR ( Amer) Est GFR (Non-Af Amer) BUN/Creatinine Ratio (10-20) Glucose (70-99) mg/dl POC Glucose (other) 102 H (70-99) mg/dl Lactate 3.0 H* (0.4-2.0) mmol/L Calcium (8.5-10.1) mg/dl POC Ioniz Calcium Carol 1.13 (1.12-1.32) mmol/l Magnesium (1.8-2.4) mg/dl Total Bilirubin (0.2-1) mg/dl AST (15-37) U/L ALT (12-78) U/L Alkaline Phosphatase (45-117) U/L Ammonia 65.0 H (11-32) umol/L Total Creatine Kinase (26-192) U/L Troponin I (0-0.045) ng/ml Total Protein (6.4-8.2) gm/dl Albumin (3.4-5.0) gm/dl Globulin (2.5-4.0) gm/dl Albumin/Globulin Ratio (0.9-2) Lipase (73-393) U/L HCG, Qual (Negative) Urine Color Urine Appearance (Clear) Urine pH (4.5-7.5) Ur Specific [facility] (1.000-1.030) Urine Protein (Negative) Urine Glucose (UA) (Negative) Urine Ketones (Negative) Urine Blood (Negative) Urine Nitrite (Negative) Urine Bilirubin (Negative) Urine Urobilinogen (Negative) Ur Leukocyte Esterase (Negative) Urine WBC (Auto) (0-5) /hpf Urine RBC (Auto) (0-4) /hpf U Hyaline Cast (Auto) (0-5) /lpf U Epithel Cells (Auto) (0-5) /lpf Urine Bacteria (Auto) (Negative) Ur Renal Epithelial Cell (0-5) /lpf CSF Appearance CSF Color Xanthrochromic CSF WBC (0-5) /uL CSF RBC (0-) /uL CSF Cell Count Tube # CSF Chemistry Tube # CSF Glucose (40-70) mg/dl CSF Total Protein (15-45) mg/dl Salicylates (2.8-20) mg/dl Urine Opiates Screen (Neg) Ur Methadone, Qual (Neg) Acetaminophen (10-30) ug/ml Urine Barbiturates (Neg) Ur Phencyclidine (PCP) (Neg) U Amphetamin/Meth Scrn (Neg) MDMA (Ecstasy) Screen (Neg) U Benzodiazepines Scrn (Neg) Ur Cocaine Metabolite (Neg) U Marijuana (THC) Screen (Neg) Ethyl Alcohol mg/dL (0-3) mg/dl 03/11/19 03/11/19 03/11/19 Range/Units 16:01 16:01 17:27 WBC (4.8-10.8) K/uL RBC (4.2-5.4) M/uL Hgb (12.0-16.0) g/dL POC Hgb (12.0-16.0) g/dl Hct (37-47) % POC Hct (37-47) % MCV (80-100) fL MCH (25-34) pg MCHC (32-36) g/dL RDW Std Deviation (36.4-46.3) fL RDW Coeff of [place] (11.5-14.5) % Plt Count (130-400) K/uL MPV (7.4-10.4) fL Immature Gran % (Auto) % Neut % (Auto) % Lymph % (Auto) % [place] % (Auto) % Eos % (Auto) % Baso % (Auto) % Immature Gran # (Auto) (0.00-0.02) K/uL Neut # (Auto) (1.4-6.5) K/uL Lymph # (Auto) (1.2-3.4) K/uL [place] # (Auto) (0.11-0.59) K/uL Eos # (Auto) (0-0.5) K/uL Baso # (Auto) (0-0.2) K/uL Hypochromasia Ovalocytes PT (9.0-12.0) Seconds INR (0.9-1.1) APTT (21.0-31.0) Seconds PTT Ratio Specimen Type POC pH (7.35-7.45) POC pCO2 (35-46) mmHg POC pO2 (80-95) mmHg POC HCO3 (19-24) neil/L POC Base Excess (-9-1.8) neil/L POC Sodium (135-144) mEq/L Sodium (136-145) mmol/L POC Potassium (3.3-5.0) mEq/L Potassium (3.5-5.1) mmol/L POC Chloride (101-112) mEq/L Chloride (98-107) mmol/L Carbon Dioxide (21-32) mmol/L POC Total CO2 (24-31) mEq/l Anion Gap (3-11) POC Anion Gap (16-25) mmol/L POC BUN (7-18) mg/dl BUN (7-18) mg/dl Creatinine (0.6-1.2) mg/dl POC Creatinine (0.6-1.3) mg/dl Est Cr Clr Drug Dosing ml/min Est GFR ( Amer) Est GFR (Non-Af Amer) BUN/Creatinine Ratio (10-20) Glucose (70-99) mg/dl POC Glucose (other) (70-99) mg/dl Lactate (0.4-2.0) mmol/L Calcium (8.5-10.1) mg/dl POC Ioniz Calcium Carol (1.12-1.32) mmol/l Magnesium (1.8-2.4) mg/dl Total Bilirubin (0.2-1) mg/dl AST (15-37) U/L ALT (12-78) U/L Alkaline Phosphatase (45-117) U/L Ammonia (11-32) umol/L Total Creatine Kinase (26-192) U/L Troponin I (0-0.045) ng/ml Total Protein (6.4-8.2) gm/dl Albumin (3.4-5.0) gm/dl Globulin (2.5-4.0) gm/dl Albumin/Globulin Ratio (0.9-2) Lipase (73-393) U/L HCG, Qual (Negative) Urine Color Yellow Urine Appearance Clear (Clear) Urine pH 5.0 (4.5-7.5) Ur Specific [facility] 1.020 (1.000-1.030) Urine Protein 1+ H (Negative) Urine Glucose (UA) Negative (Negative) Urine Ketones Negative (Negative) Urine Blood 1+ H (Negative) Urine Nitrite Negative (Negative) Urine Bilirubin Negative (Negative) Urine Urobilinogen Negative (Negative) Ur Leukocyte Esterase Negative (Negative) Urine WBC (Auto) 1-5 (0-5) /hpf Urine RBC (Auto) 0-4 (0-4) /hpf U Hyaline Cast (Auto) 10-30 H (0-5) /lpf U Epithel Cells (Auto) >30 H (0-5) /lpf Urine Bacteria (Auto) Negative (Negative) Ur Renal Epithelial Cell 0-5 (0-5) /lpf CSF Appearance Clear CSF Color Colorless Xanthrochromic No xanthochromia CSF WBC 1 (0-5) /uL CSF RBC 3 (0-) /uL CSF Cell Count Tube # 3 CSF Chemistry Tube # CSF Glucose (40-70) mg/dl CSF Total Protein (15-45) mg/dl Salicylates (2.8-20) mg/dl Urine Opiates Screen Pos H (Neg) Ur Methadone, Qual Neg (Neg) Acetaminophen (10-30) ug/ml Urine Barbiturates Pos H (Neg) Ur Phencyclidine (PCP) Neg (Neg) U Amphetamin/Meth Scrn Neg (Neg) MDMA (Ecstasy) Screen Neg (Neg) U Benzodiazepines Scrn Pos H (Neg) Ur Cocaine Metabolite Neg (Neg) U Marijuana (THC) Screen Neg (Neg) Ethyl Alcohol mg/dL (0-3) mg/dl 03/11/19 03/11/19 Range/Units 17:27 17:44 WBC (4.8-10.8) K/uL RBC (4.2-5.4) M/uL Hgb (12.0-16.0) g/dL POC Hgb (12.0-16.0) g/dl Hct (37-47) % POC Hct (37-47) % MCV (80-100) fL MCH (25-34) pg MCHC (32-36) g/dL RDW Std Deviation (36.4-46.3) fL RDW Coeff of [place] (11.5-14.5) % Plt Count (130-400) K/uL MPV (7.4-10.4) fL Immature Gran % (Auto) % Neut % (Auto) % Lymph % (Auto) % [place] % (Auto) % Eos % (Auto) % Baso % (Auto) % Immature Gran # (Auto) (0.00-0.02) K/uL Neut # (Auto) (1.4-6.5) K/uL Lymph # (Auto) (1.2-3.4) K/uL [place] # (Auto) (0.11-0.59) K/uL Eos # (Auto) (0-0.5) K/uL Baso # (Auto) (0-0.2) K/uL Hypochromasia Ovalocytes PT (9.0-12.0) Seconds INR (0.9-1.1) APTT (21.0-31.0) Seconds PTT Ratio Specimen Type Arterial POC pH 7.21 L (7.35-7.45) POC pCO2 58 H (35-46) mmHg POC pO2 86 (80-95) mmHg POC HCO3 23 (19-24) neil/L POC Base Excess -5.0 (-9-1.8) neil/L POC Sodium (135-144) mEq/L Sodium (136-145) mmol/L POC Potassium (3.3-5.0) mEq/L Potassium (3.5-5.1) mmol/L POC Chloride (101-112) mEq/L Chloride (98-107) mmol/L Carbon Dioxide (21-32) mmol/L POC Total CO2 25 (24-31) mEq/l Anion Gap (3-11) POC Anion Gap (16-25) mmol/L POC BUN (7-18) mg/dl BUN (7-18) mg/dl Creatinine (0.6-1.2) mg/dl POC Creatinine (0.6-1.3) mg/dl Est Cr Clr Drug Dosing ml/min Est GFR ( Amer) Est GFR (Non-Af Amer) BUN/Creatinine Ratio (10-20) Glucose (70-99) mg/dl POC Glucose (other) (70-99) mg/dl Lactate (0.4-2.0) mmol/L Calcium (8.5-10.1) mg/dl POC Ioniz Calcium Carol (1.12-1.32) mmol/l Magnesium (1.8-2.4) mg/dl Total Bilirubin (0.2-1) mg/dl AST (15-37) U/L ALT (12-78) U/L Alkaline Phosphatase (45-117) U/L Ammonia (11-32) umol/L Total Creatine Kinase (26-192) U/L Troponin I (0-0.045) ng/ml Total Protein (6.4-8.2) gm/dl Albumin (3.4-5.0) gm/dl Globulin (2.5-4.0) gm/dl Albumin/Globulin Ratio (0.9-2) Lipase (73-393) U/L HCG, Qual (Negative) Urine Color Urine Appearance (Clear) Urine pH (4.5-7.5) Ur Specific [facility] (1.000-1.030) Urine Protein (Negative) Urine Glucose (UA) (Negative) Urine Ketones (Negative) Urine Blood (Negative) Urine Nitrite (Negative) Urine Bilirubin (Negative) Urine Urobilinogen (Negative) Ur Leukocyte Esterase (Negative) Urine WBC (Auto) (0-5) /hpf Urine RBC (Auto) (0-4) /hpf U Hyaline Cast (Auto) (0-5) /lpf U Epithel Cells (Auto) (0-5) /lpf Urine Bacteria (Auto) (Negative) Ur Renal Epithelial Cell (0-5) /lpf CSF Appearance CSF Color Xanthrochromic CSF WBC (0-5) /uL CSF RBC (0-) /uL CSF Cell Count Tube # CSF Chemistry Tube # 1 CSF Glucose 97 H (40-70) mg/dl CSF Total Protein 38.8 (15-45) mg/dl Salicylates (2.8-20) mg/dl Urine Opiates Screen (Neg) Ur Methadone, Qual (Neg) Acetaminophen (10-30) ug/ml Urine Barbiturates (Neg) Ur Phencyclidine (PCP) (Neg) U Amphetamin/Meth Scrn (Neg) MDMA (Ecstasy) Screen (Neg) U Benzodiazepines Scrn (Neg) Ur Cocaine Metabolite (Neg) U Marijuana (THC) Screen (Neg) Ethyl Alcohol mg/dL (0-3) mg/dl Imaging Data Radiologist's Impression: Radiology results as stated below per my review and the radiologist's interpretation: XR chest 1V portable CLINICAL HISTORY: Atypical chest pain. Overdose. COMPARISON STUDY: No previous studies for comparison. FINDINGS: The heart is normal in size. There is an endotracheal tube 3 centimeters above the milla.[There is no pneumothorax on the supine study. There is no focal pulmonary consolidation. There are no pleural effusions. There is mild vascular and interstitial prominence, a finding which may be accentuated by the AP supine technique. Radiographic follow-up is recommended. There are postsurgical changes present within the cervical spine. IMPRESSION: 1. Endotracheal tube 3 cm above the milla 2. Mild vascular and interstitial prominence, a finding which may in part be accentuated by the AP supine technique 3. No evidence of lobar consolidation Electronically signed by: Matt Guillen M.D. 03/11/2019 4:[address] head/brain wo con CLINICAL HISTORY: altered MS UNRESPONSIVE PATIENT COMPARISON STUDY: No previous studies for comparison. TECHNIQUE: Axial CT of the brain is performed from the vertex to the skull base. IV contrast was not administered for this examination. A dose lowering technique was utilized adhering to the principles of ALARA. CT DOSE: FINDINGS: No intra or extra-axial mass lesions are visualized. There is no CT evidence of acute cortical infarction. There is no evidence of midline shift. There is no acute hemorrhage. No calvarial fractures are visualized. The study is mildly compromised due to mild motion artifact. There is no evidence of pathologic ventricular dilatation. There is no evidence of acute sinusitis IMPRESSION: No acute intracranial findings Electronically signed by: Matt Guillen M.D. 03/11/2019 4:[address] ANGIOGRAM OF THE CHEST CLINICAL HISTORY: Unresponsive patient. Possible acute pulmonary embolism. ATYPICAL CHEST PAIN. COMPARISON STUDY: Chest x-ray dated 03/11/2019 TECHNIQUE: Following the IV administration of 120 mL of Optiray-320, CT angiogram of the thorax was performed from the thoracic inlet to the lung bases utilizing the pulmonary embolus protocol. Images are reviewed in the axial, sagittal, and coronal planes. IV contrast was administered without complication. MIP imaging was performed. A dose lowering technique was utilized adhering to the principles of ALARA. CT DOSE: FINDINGS: Visualized portions the upper abdomen reveal hepatic steatosis. No pathologically enlarged axillary mediastinal or hilar lymph nodes were visualized. There was no evidence of thoracic aortic dilatation. There were no pulmonary artery filling defects to indicate acute pulmonary embolism. No pleural effusions are visualized. There are patchy bilateral airspace opacities with dense lower lobe atelectasis/consolidation. Aspiration must be considered. There is mild interlobular septal edema visualized towards the lung apices. There is an endotracheal tube 22 mm above the milla. IMPRESSION: 1. No evidence of acute pulmonary pulmonary embolism 2. Endotracheal tube 22 mm above the milla 3. Mild interlobular septal edema visualized towards the lung apices 4. Patchy bilateral airspace opacities with dense dependent lower lobe atelectasis/consolidation. Aspiration must be considered. Electronically signed by: Matt Guillen M.D. 03/11/2019 4:[address] angio head w con CLINICAL HISTORY: Unresponsive patient with altered mental status. TECHNIQUE: CT angiography of the head was performed in a dynamic helical fashion during intravenous administration of 120 cc of Optiray 320. MIP imaging was performed. A dose lowering technique was utilized adhering to the principles of ALARA. CT DOSE: COMPARISON STUDY: Noncontrast head CT dated 03/11/2019 FINDINGS: There are no lesion suspicious for aneurysm. There are no major intracranial branch occlusions. The dural venous sinuses appear patent. IMPRESSION: Normal study. Electronically signed by: Matt Guillen M.D. 03/11/2019 4:[address] SCAN OF THE ABDOMEN AND PELVIS WITH IV CONTRAST CLINICAL HISTORY: Unresponsive. COMPARISON STUDY: Pelvic ultrasound dated 08/24/2009. Abdominal ultrasound dated 08/16/2009. TECHNIQUE: Following the IV administration of 120 cc of Optiray 320, CT scan of the abdomen and pelvis is performed from the lung bases to the proximal femora. Images are reviewed in the axial, sagittal, and coronal planes. IV contrast was administered without complication. A dose lowering technique was utilized adhering to the principles of ALARA. The examination is degraded by motion artifact, as well as by streak artifact from the arms which could not elevated above the abdomen. FINDINGS: Lung bases: The heart is normal in size and without pericardial effusion. There is dense bibasilar airspace consolidation. Trace pleural effusions are noted. Liver: The contrast-enhanced liver is enlarged, measuring 21.5 cm in length. The liver demonstrates diffusely heterogeneously diminished attenuation consistent with hepatic steatosis. There is nodularity of the hepatic surface contour indicating early change of cirrhosis. There is no intrahepatic biliary ductal dilatation. The hepatic veins and portal veins are patent. There is recanalization of the periumbilical vein. Gallbladder: Surgically absent noting clips in the gallbladder fossa. Spleen: The spleen is enlarged, measuring 16.9 cm in length. Pancreas: Unremarkable. Adrenal glands: Adrenal glands appear hyperemic. This is a nonspecific finding and can be seen in setting of hypotension/shock. Kidneys: The contrast enhanced kidneys are normal in size and without hydronephrosis. The kidneys enhance symmetrically. There is an 11 mm low- attenuation lesion in the lower pole of the left kidney seen on image #[id number]. Abdominal vasculature: The abdominal aorta is normal in course and caliber. Bowel: Postoperative change is noted in the stomach. There is mild colonic fecal retention. No bowel obstruction is seen. The appendix is well-visualized and normal. Peritoneum: There is no intraperitoneal free air or abdominal ascites. Lymphadenopathy: None. Pelvic viscera: The bladder is partially decompressed and a Du catheter. Foci of intraluminal gas are likely related to instrumentation. The uterus is normal as imaged. There is a dilated tubular structure in the left adnexa seen on image #449. The measures up to 12 mm, and the wall appears thickened and hyperemic. A similar-appearing dilated tubular structure seen in the right adnexa on image #410. Skeletal structures: No lytic or blastic lesions are seen. IMPRESSION: 1. There is dense bibasilar airspace consolidation, typical in appearance for pneumonia. Clinical correlation will be required and radiographic follow-up to resolution is recommended. 2. The liver is enlarged, cirrhotic in morphology, and steatotic. 3. Splenomegaly and recanalization of the periumbilical vein indicate portal hypertension. 4. The adrenal glands appear hyperemic. This is a nonspecific finding and can be seen in setting of hypotension/shock. Clinical correlation will be required. 5. There is an indeterminant 11 mm low-attenuation lesion in the lower pole of the left kidney. This does not represent a simple cyst. Correlation with a nonemergent MRI of the kidneys recommended for further assessment. 6. There are dilated tubular structures seen in the adnexa bilaterally. These appear to be thick-walled and hyperemic, and may represent hydrosalpinx. I nfection is not excluded. Gynecology follow-up is recommended. 7. Additional findings as above. Electronically signed by: Davide Vines M.D. 03/11/2019 4:[address] angio neck with con CLINICAL HISTORY: Altered mental status. Possible stroke. COMPARISON STUDY: No previous studies for comparison. TECHNIQUE: CT angiography was performed from the aortic arch to the skull base. MIP imaging was performed. The patient was scanned in a dynamic helical fashion during intravenous administration of 120 cc of Optiray 320. A dose lowering technique was utilized adhering to the principles of ALARA. CT DOSE: 2600.27 mGy.cm Technique: CT angiogram of the carotid and vertebral arteries was obtained using intravenous contrast and 3-D reconstruction. NASCET criteria was utilized. Findings: The visualized portions of lung apices reveal endotracheal tube. There is mild apical interlobular septal edema. There are bilateral pulmonary airspace opacities. The right carotid revealed no evidence of aneurysm and no evidence of dissection. There is no evidence of hemodynamic significant stenosis. The left carotid revealed no evidence of hemodynamic significant stenosis. There is no evidence of aneurysm. There is no evidence of dissection. There is a dominant left vertebral artery. Evaluation of the small right vertebral artery is limited due to artifact from cervical spinal hardware. The right vertebral artery is difficult to visualize at the C5-C7 levels.. The proximal and distal right vertebral artery appear patent. IMPRESSION: 1. No evidence of hemodynamic significant carotid artery stenosis or dissection 2. Dominant left vertebral artery, no evidence of left vertebral artery stenosis or dissection 3. Nondiagnostic evaluation of the small right vertebral artery at the C5-C7 levels due to artifact from cervical spinal hardware Electronically signed by: Matt Guillen M.D. 03/11/2019 4:47 PM ECG Data Attestation: I personally reviewed and interpreted this ECG as follows: Indication: altered mental status Rate (beats per minute): 95 Rhythm: normal sinus Findings: + other (Anterior ST segments abnormalities noted); no ectopy Comparison ECG Date: no prior available Blood Pressure Blood Pressure Findings: Normal blood pressure Blood Pressure Disposition: did not require urgent referral MDM Narrative The patient is a 38-year-old female who presented to the emergency department for an evaluation of altered mental status. The patient was noted to be altered with her mentation in the morning. Her felt that it was close to her baseline and put her into bed. When he returned she was completely obtunded. The prehospital personnel were unable to obtain an advanced airway as the patient is in a rigid cervical collar from spinal surgery and is also clenched down. The patient was treated with supplemental oxygen to the best of their ability. The patient was treated with a small amount of Ativan in case this represented a seizure. The patient was intubated immediately as there was significant aspiration signs and emesis in the oropharynx. The patient had suctioning of the oropharynx but there is still significant emesis noted in the posterior oropharynx. The patient was intubated with the glide scope. She tolerated this procedure well. She was placed on a ventilator and her oxygen saturation significantly improved. I discussed the patient's laboratory and rad iographic studies with her significant other. I also discussed her case with the on-call [facility] hospitalist group. They have agreed to evaluate the patient in the emergency department for further management disposition. I also discussed this case with the transition specialist. The patient initially had a lumbar puncture for her altered mental status and possible infection. This was reported out as elevation in the CSF WBC count. She was then treated for meningitis however the lab contacted us hours later to let us know that the patient's CSF initial report was entered and air. On reevaluation it does not appear to be signs of meningitis based on her CSF. Impression & Plan Altered mental status, Hepatic encephalopathy, Pneumonia, Respiratory failure, Aspiration into respiratory tract, Respiratory acidosis Critical Care Time Critical Care Time: Yes Total Critical Care Time: 90 I have personally spent greater than 90 minutes of critical care time in the direct management of this patient. This includes bedside care, interpretation of diagnostic studies, and testing, discussion with consultants, patient, and family members, and other required patient management activities. This 90 minutes is in excess of all separately billable procedures. Discharge Plan Visit Data *Final* Discharge Date/Time: 03/11/19 19:00 Chief Complaint: Unresponsive Stated Complaint: UNRESPONESIVE ED Provider: Mikal Bellamy Discharge Problem: Altered mental status, Hepatic encephalopathy, Pneumonia, Respiratory failure, Aspiration into respiratory tract, Respiratory acidosis Patient Disposition: Admitted As Inpatient Discharge Instructions Interventions: ED Discharge Assessment Last Done: 03/11/19 19:00 Discharge Problem: Altered mental status Qualifiers: Altered mental status type: unspecified Qualified Code(s): R41.82 - Altered mental status, unspecified Pneumonia Qualifiers: Pneumonia type: due to unspecified organism Laterality: unspecified laterality Lung location: unspecified part of lung Qualified Code(s): J18.9 - Pneumonia, unspecified organism Respiratory failure Qualifiers: Chronicity: acute Respiratory failure complication: hypoxia and hypercapnia Qualified Code(s): J96.01 - Acute respiratory failure with hypoxia Aspiration into respiratory tract Qualifiers: Encounter type: initial encounter Qualified Code(s): T17.908A - Unspecified foreign body in respiratory tract, part unspecified causing other injury, initial encounter The scribe's documentation has been prepared under my direction and personally reviewed by me in its entirety. I confirm that the note above accurately reflects all work, treatment, procedures, and medical decision making performed by me.
[2019-03-11] MEDS ORDERED: ICU PROTOCOL FOR HYPERGLYCEMIA PRN (19:38)
[2019-03-11] MEDS ORDERED: LACTULOSE SYRUP 30 GM/45 ML UDP PO PRN (19:59)
[2019-03-11] MEDS ORDERED: ACYCLOVIR SOD 550 MG in DEXTROSE 5% 100 ML IV ONE (20:00)
[2019-03-11] MEDS ORDERED: D5W AND NSS 1,000 ML IV SCH (20:00)
--- NOTE | 2019-03-11 20:10 | Critical Care Consultation ---
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 (Neg) Ur Hydromorphone (GC/MS) Acetaminophen (10-30) ug/ml Urine Barbiturates (Neg) Ur Phencyclidine (PCP) (Neg) U Amphetamin/Meth Scrn (Neg) MDMA (Ecstasy) Screen (Neg) Urine Amobarbital Urine Pentobarbital Urine Phenobarbital Urine Secobarbital U OH-Alprazolam Confrm U Benzodiazepines Scrn (Neg) 7-Amino Clonazepam Ur Nordiazepam Confirm U OH-ethylflurazepam U Lorazepam Cnf GC/MS U Oxazepam Confm GC/MS Ur Temazepam Confirm U OH-Triazolam Confirm U OH-Midazolam Confirm Ur Cocaine Metabolite (Neg) U Marijuana (THC) Screen (Neg) Ethyl Alcohol mg/dL (0-3) mg/dl Herpes Virus Source HSV I DNA PCR HSV II DNA PCR Diagnostic Findings EKG reviewed normal sinus rhythm with QTC of 469. hCG was negative I reviewed the CSF studies there was elevated WBCs 400 and but also elevated white blood cells of 1500 which would be consistent with a traumatic tap. The chemistries were glucose of 97 and protein 38.8. 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
[2019-03-11] MEDS ORDERED: SODIUM CHLORIDE 0.9% 500 ML IV SCH (20:15)
[2019-03-11 20:49] LABS: Potassium 4.4 mmol/L (3.5-5.1)
[2019-03-11 20:50] LABS: Troponin I 0.126 ng/ml (0-0.045)
[2019-03-11 20:51] LABS: Red Blood Cell CSF (A) 3 /uL (0-); Red Blood Cell CSF (B) 2 /uL (0-); White Blood Cell CSF (B) 0 /uL (0-5)
[2019-03-11 21:15] LABS: White Blood Cell CSF (A) 1 /uL (0-5)
[2019-03-11] MEDS ORDERED: PIPERACILLIN/TAZOBACTAM 4.5 GM in DEXTROSE 5% 100 ML IV SCH (22:00)
[2019-03-12 05:52] LABS: BUN Creatinine Ratio 7.5 (10-20); Calcium 7.5 mg/dl (8.5-10.1); Creatinine Clr Calc Pharmacy 106.8 ml/min; Est GFR (African American) 110.1; Phosphorus 3.5 mg/dl (2.5-4.9)
[2019-03-12 05:55] LABS: Hemoglobin 9.2 g/dL (12.0-16.0); Mean Corpuscular Hgb Conc 28.8 g/dL (32-36); Mean Corpuscular Volume 79.2 fL (80-100); Mean Platelet Volume 9.2 fL (7.4-10.4); Platelet Count 78 K/uL (130-400); RDW Coefficient of Variation 14.7 % (11.5-14.5); RDW Standard Deviation 42.3 fL (36.4-46.3); Red Blood Count 4.04 M/uL (4.2-5.4); White Blood Count 6.25 K/uL (4.8-10.8)
[2019-03-12 05:59] LABS: Hypochromasia Present; Immature Granulocytes # (auto) 0.02 K/uL (0.00-0.02); Immature Granulocytes % (auto) 0.3 %; Lymphocytes # (auto) 0.37 K/uL (1.2-3.4); Lymphocytes % (auto) 5.9 %; Monocytes # (auto) 0.41 K/uL (0.11-0.59); Monocytes % (auto) 6.6 %; Neutrophils # (auto) 5.45 K/uL (1.4-6.5); Neutrophils % (auto) 87.2 %; Platelet Estimate Decreased (Normal)
--- NOTE | 2019-03-12 08:37 | Critical Care Progress Note ---
Date of Service March 12, 2019 Assessment & Plan (1) Acute encephalopathy: Reason Critically Ill: 38-year-old female with Hx of traumatic vertebral artery dissection with stroke who presented with acute encephalopathy and is now stable for downgrade. PLAN: Neuro: Acute encephalopathy: Improved Hyperammonemia: -History of hepatic encephalopathy - Lactulose 30 gram as needed twice daily as needed -Possible toxic/medication -Positive for opiates, positive for barbiturates positive for benzodiazepines -Slowly reinstitute sedating medications -Ideally 1 medication per each class not multiple benzodi azepines muscle relaxers in addition to worrisome combination including opiates -Rule out toxic ingestion: Tylenol negative salicylate negative -Rule out meningitis: Unlikely -Cell counts were misidentified, this still does not appear to be meningitis and I have discontinued all anti-infectives History of stroke -Per 's report this is secondary to traumatic dissection of the vertebral artery -81 mg aspirin daily Cervical fracture -Status post fixation [facility] 09 [facility]Dustin Kwon Resp: Acute hypoxic respiratory failure: Improving -Aspiration pneumonitis will hold antibiotics: Improving -speech eval pending given Hx of stroke and difficulty with advancing diet -End-tidal CO2 monitoring: Discontinue CV: Borderline EKG secondary to rightward axis deviation Elevated troponins: Improving -Suspect this is likely from aspiration pneumonitis Fluids/Renal: Elevated lactic acidosis: Resolved Mild hyperkalemia: Resolved ID: Meningitis effectively ruled out GI/Nutrition: Transaminitis - reports fatty liver disease Heme: Anemia -Unknown baseline Leukocytosis DVT prophylaxis: Will consider chemical prophylaxis in the morning however we should be able to ambulate the patient -Patient is able to ambulate therefore lower risk for DVT Endocrine: ICU hyperglycemia protocol Given steroids for possible meningitis -Discontinued steroids at this time -Discontinued dextrose containing fluids Vascular access: Peripheral IVs Code Status: Full code PT OT speech consults given history of trauma and encephalopathy Stable for downgrade out of ICU today (2) Aspiration into respiratory tract: (3) Transaminitis: Supervising Physician Co-Signing Physician Notes Dr. Cheung was resident physician during care of patient. I separately evaluated patient for norton portions of the history and the exam. I was present during the critical portion of medical decision making, and I discussed the case with the resident. I generally agree with the findings and plan. Patient was discussed in multidisciplinary rounds, stable for downgrade out of ICU Subjective Ms. Marla is AAOx2 this AM. Per nursing, having some difficulty with drinking and eating. Pt currently denies RAUSCH, blurry vision, dizziness, chest pain, SOB, palps, abd pain. Review of Systems Review of Systems: All systems reviewed & are unremarkable except as noted in HPI & below Physical Exam Physical Exam: General: Alert, orientedx2 HEENT: NC/AT, neck brace on Chest: Nontender to palpation. CV: RRR, Normal s1, s2. Resp: Breath sounds clear but decreased bilaterally, no increased effort of breathing. Abdomen: Soft, nontender. No guarding. Extremities: No edema. Results & Data Vital Signs (Past 12 Hours) Vital Signs Temp Pulse BP Pulse Ox 03/12/19 06:01 87 95 03/12/19 06:00 85 125/72 97 03/12/19 05:01 94 H 100 03/12/19 05:00 94 H 115/86 100 03/12/19 04:01 37.5 C 91 H 100 03/12/19 04:00 92 H 108/63 100 03/12/19 03:42 98 H 114/69 99 03/12/19 03:01 99 H 99 03/12/19 03:00 97 H 121/100 99 03/12/19 02:01 97 H 99 03/12/19 02:00 97 H 128/79 98 03/12/19 01:00 100 H 110/66 97 03/12/19 00:01 37.4 C 99 H 96 03/12/19 00:00 100 H 106/74 96 03/11/19 23:01 105 H 99 03/11/19 23:00 106 H 142/93 H 98 03/11/19 22:01 104 H 93 03/11/19 22:00 105 H 110/79 93 03/11/19 21:01 103 H 92 03/11/19 21:00 103 H 118/74 92 Laboratory Results Laboratory Results - last 24 hr 03/11/19 03/11/19 03/11/19 15:38 15:38 15:38 WBC 16.79 H RBC 4.69 Hgb 11.0 L POC Hgb Hct 37.7 POC Hct MCV 80.4 MCH 23.5 L MCHC 29.2 L RDW Std Deviation 43.4 RDW Coeff of Henna 14.9 H Plt Count 239 MPV 9.6 Immature Gran % (Auto) 0.4 Neut % (Auto) 88.2 Lymph % (Auto) 6.4 Alfalfa % (Auto) 4.8 Eos % (Auto) 0.1 Baso % (Auto) 0.1 Immature Gran # (Auto) 0.06 H Neut # (Auto) 14.81 H Lymph # (Auto) 1.08 L Alfalfa # (Auto) 0.80 H Eos # (Auto) 0.02 Baso # (Auto) 0.02 Platelet Estimate Hypochromasia Present Ovalocytes 1+ PT 11.8 INR 1.2 H APTT 22.9 PTT Ratio 0.8 Specimen Type POC pH POC pCO2 POC pO2 POC HCO3 POC Base Excess VBG pH POC Sodium Sodium 139 POC Potassium Potassium 5.5 H POC Chloride Chloride 109 H Carbon Dioxide 26 POC Total CO2 Anion Gap 5.0 POC Anion Gap POC BUN BUN 11 Creatinine 1.07 POC Creatinine Est Cr Clr Drug Dosing 80.8 Est GFR ( Amer) 76.3 Est GFR (Non-Af Amer) 65.8 BUN/Creatinine Ratio 10.5 Glucose 100 H POC Glucose POC Glucose (other) Lactate Calcium 7.5 L POC Ioniz Calcium Carol Phosphorus Magnesium 2.4 Total Bilirubin 0.3 AST 137 H ALT 49 Alkaline Phosphatase 122 H Ammonia Total Creatine Kinase 760 H Troponin I 0.061 H* Total Protein 7.7 Albumin 3.9 Globulin 3.8 Albumin/Globulin Ratio 1.0 Lipase 134 HCG, Qual Urine Color Urine Appearance Urine pH Ur Specific [place] Urine Protein Urine Glucose (UA) Urine Ketones Urine Blood Urine Nitrite Urine Bilirubin Urine Urobilinogen Ur Leukocyte Esterase Urine WBC (Auto) Urine RBC (Auto) U Hyaline Cast (Auto) U Epithel Cells (Auto) Urine Bacteria (Auto) Ur Renal Epithelial Cell CSF Appearance CSF Color Xanthrochromic CSF WBC CSF RBC CSF Cell Count Tube # CSF Chemistry Tube # CSF Glucose CSF Total Protein Nasal Screen MRSA (PCR) Urine Butalbital Salicylates Urine Opiates Screen U Codeine Confrm GC/MS Ur Morphine (GC/MS) Ur Hydrocodone (GC/MS) Ur Norhydrocodone Ur Noroxycodone Urine Oxycodone (GC/MS) U Oxymorphone GC/MS Ur Methadone, Qual Ur Hydromorphone (GC/MS) Acetaminophen Urine Barbiturates Ur Phencyclidine (PCP) U Amphetamin/Meth Scrn MDMA (Ecstasy) Screen Urine Amobarbital Urine Pentobarbital Urine Phenobarbital Urine Secobarbital U OH-Alprazolam Confrm U Benzodiazepines Scrn 7-Amino Clonazepam Ur Nordiazepam Confirm U OH-ethylflurazepam U Lorazepam Cnf GC/MS U Oxazepam Confm GC/MS Ur Temazepam Confirm U OH-Triazolam Confirm U OH-Midazolam Confirm Ur Cocaine Metabolite U Marijuana (THC) Screen Ethyl Alcohol mg/dL Cold Agglutinins Herpes Virus Source HSV I DNA PCR HSV II DNA PCR 03/11/19 03/11/19 03/11/19 15:38 15:38 15:38 WBC RBC Hgb POC Hgb Hct POC Hct MCV MCH MCHC RDW Std Deviation RDW Coeff of [place] Plt Count MPV Immature Gran % (Auto) Neut % (Auto) Lymph % (Auto) Alfalfa % (Auto) Eos % (Auto) Baso % (Auto) Immature Gran # (Auto) Neut # (Auto) Lymph # (Auto) Alfalfa # (Auto) Eos # (Auto) Baso # (Auto) Platelet Estimate Hypochromasia Ovalocytes PT INR APTT PTT Ratio Specimen Type POC pH POC pCO2 POC pO2 POC HCO3 POC Base Excess VBG pH POC Sodium Sodium POC Potassium Potassium POC Chloride Chloride Carbon Dioxide POC Total CO2 Anion Gap POC Anion Gap POC BUN BUN Creatinine POC Creatinine Est Cr Clr Drug Dosing Est GFR ( Amer) Est GFR (Non-Af Amer) BUN/Creatinine Ratio Glucose POC Glucose POC Glucose (other) Lactate Calcium POC Ioniz Calcium Carol Phosphorus Magnesium Total Bilirubin AST ALT Alkaline Phosphatase Ammonia Total Creatine Kinase Troponin I Total Protein Albumin Globulin Albumin/Globulin Ratio Lipase HCG, Qual Negative Urine Color Urine Appearance Urine pH Ur Specific [place] Urine Protein Urine Glucose (UA) Urine Ketones Urine Blood Urine Nitrite Urine Bilirubin Urine Urobilinogen Ur Leukocyte Esterase Urine WBC (Auto) Urine RBC (Auto) U Hyaline Cast (Auto) U Epithel Cells (Auto) Urine Bacteria (Auto) Ur Renal Epithelial Cell CSF Appearance CSF Color Xanthrochromic CSF WBC CSF RBC CSF Cell Count Tube # CSF Chemistry Tube # CSF Glucose CSF Total Protein Nasal Screen MRSA (PCR) Urine Butalbital Salicylates < 1.7 L Urine Opiates Screen U Codeine Confrm GC/MS Ur Morphine (GC/MS) Ur Hydrocodone (GC/MS) Ur Norhydrocodone Ur Noroxycodone Urine Oxycodone (GC/MS) U Oxymorphone GC/MS Ur Methadone, Qual Ur Hydromorphone (GC/MS) Acetaminophen < 2 L Urine Barbiturates Ur Phencyclidine (PCP) U Amphetamin/Meth Scrn MDMA (Ecstasy) Screen Urine Amobarbital Urine Pentobarbital Urine Phenobarbital Urine Secobarbital U OH-Alprazolam Confrm U Benzodiazepines Scrn 7-Amino Clonazepam Ur Nordiazepam Confirm U OH-ethylflurazepam U Lorazepam Cnf GC/MS U Oxazepam Confm GC/MS Ur Temazepam Confirm U OH-Triazolam Confirm U OH-Midazolam Confirm Ur Cocaine Metabolite U Marijuana (THC) Screen Ethyl Alcohol mg/dL < 3.0 Cold Agglutinins Herpes Virus Source HSV I DNA PCR HSV II DNA PCR 03/11/19 03/11/19 03/11/19 15:39 15:42 15:52 WBC RBC Hgb POC Hgb 13.3 Hct POC Hct 39 MCV MCH MCHC RDW Std Deviation RDW Coeff of [place] Plt Count MPV Immature Gran % (Auto) Neut % (Auto) Lymph % (Auto) Alfalfa % (Auto) Eos % (Auto) Baso % (Auto) Immature Gran # (Auto) Neut # (Auto) Lymph # (Auto) Alfalfa # (Auto) Eos # (Auto) Baso # (Auto) Platelet Estimate Hypochromasia Ovalocytes PT INR APTT PTT Ratio Specimen Type POC pH POC pCO2 POC pO2 POC HCO3 POC Base Excess VBG pH POC Sodium 139 Sodium POC Potassium 5.6 H Potassium POC Chloride 104 Chloride Carbon Dioxide POC Total CO2 25 Anion Gap POC Anion Gap 17.0 POC BUN 11 BUN Creatinine POC Creatinine 1.1 Est Cr Clr Drug Dosing Est GFR ( Amer) Est GFR (Non-Af Amer) BUN/Creatinine Ratio Glucose POC Glucose POC Glucose (other) 102 H Lactate 3.0 H* Calcium POC Ioniz Calcium Carol 1.13 Phosphorus Magnesium Total Bilirubin AST ALT Alkaline Phosphatase Ammonia 65.0 H Total Creatine Kinase Troponin I Total Protein Albumin Globulin Albumin/Globulin Ratio Lipase HCG, Qual Urine Color Urine Appearance Urine pH Ur Specific [place] Urine Protein Urine Glucose (UA) Urine Ketones Urine Blood Urine Nitrite Urine Bilirubin Urine Urobilinogen Ur Leukocyte Esterase Urine WBC (Auto) Urine RBC (Auto) U Hyaline Cast (Auto) U Epithel Cells (Auto) Urine Bacteria (Auto) Ur Renal Epithelial Cell CSF Appearance CSF Color Xanthrochromic CSF WBC CSF RBC CSF Cell Count Tube # CSF Chemistry Tube # CSF Glucose CSF Total Protein Nasal Screen MRSA (PCR) Urine Butalbital Salicylates Urine Opiates Screen U Codeine Confrm GC/MS Ur Morphine (GC/MS) Ur Hydrocodone (GC/MS) Ur Norhydrocodone Ur Noroxycodone Urine Oxycodone (GC/MS) U Oxymorphone GC/MS Ur Methadone, Qual Ur Hydromorphone (GC/MS) Acetaminophen Urine Barbiturates Ur Phencyclidine (PCP) U Amphetamin/Meth Scrn MDMA (Ecstasy) Screen Urine Amobarbital Urine Pentobarbital Urine Phenobarbital Urine Secobarbital U OH-Alprazolam Confrm U Benzodiazepines Scrn 7-Amino Clonazepam Ur Nordiazepam Confirm U OH-ethylflurazepam U Lorazepam Cnf GC/MS U Oxazepam Confm GC/MS Ur Temazepam Confirm U OH-Triazolam Confirm U OH-Midazolam Confirm Ur Cocaine Metabolite U Marijuana (THC) Screen Ethyl Alcohol mg/dL Cold Agglutinins Herpes Virus Source HSV I DNA PCR HSV II DNA PCR 03/11/19 03/11/19 03/11/19 16:01 16:01 16:01 WBC RBC Hgb POC Hgb Hct POC Hct MCV MCH MCHC RDW Std Deviation RDW Coeff of [place] Plt Count MPV Immature Gran % (Auto) Neut % (Auto) Lymph % (Auto) Alfalfa % (Auto) Eos % (Auto) Baso % (Auto) Immature Gran # (Auto) Neut # (Auto) Lymph # (Auto) Alfalfa # (Auto) Eos # (Auto) Baso # (Auto) Platelet Estimate Hypochromasia Ovalocytes PT INR APTT PTT Ratio Specimen Type POC pH POC pCO2 POC pO2 POC HCO3 POC Base Excess VBG pH POC Sodium Sodium POC Potassium Potassium POC Chloride Chloride Carbon Dioxide POC Total CO2 Anion Gap POC Anion Gap POC BUN BUN Creatinine POC Creatinine Est Cr Clr Drug Dosing Est GFR ( Amer) Est GFR (Non-Af Amer) BUN/Creatinine Ratio Glucose POC Glucose POC Glucose (other) Lactate Calcium POC Ioniz Calcium Carol Phosphorus Magnesium Total Bilirubin AST ALT Alkaline Phosphatase Ammonia Total Creatine Kinase Troponin I Total Protein Albumin Globulin Albumin/Globulin Ratio Lipase HCG, Qual Urine Color Yellow Urine Appearance Clear Urine pH 5.0 Ur Specific [place] 1.020 Urine Protein 1+ H Urine Glucose (UA) Negative Urine Ketones Negative Urine Blood 1+ H Urine Nitrite Negative Urine Bilirubin Negative Urine Urobilinogen Negative Ur Leukocyte Esterase Negative Urine WBC (Auto) 1-5 Urine RBC (Auto) 0-4 U Hyaline Cast (Auto) 10-30 H U Epithel Cells (Auto) >30 H Urine Bacteria (Auto) Negative Ur Renal Epithelial Cell 0-5 CSF Appearance CSF Color Xanthrochromic CSF WBC CSF RBC CSF Cell Count Tube # CSF Chemistry Tube # CSF Glucose CSF Total Protein Nasal Screen MRSA (PCR) Urine Butalbital Pending Salicylates Urine Opiates Screen Pos H U Codeine Confrm GC/MS Pending Ur Morphine (GC/MS) Pending Ur Hydrocodone (GC/MS) Pending Ur Norhydrocodone Pending Ur Noroxycodone Pending Urine Oxycodone (GC/MS) Pending U Oxymorphone GC/MS Pending Ur Methadone, Qual Neg Ur Hydromorphone (GC/MS) Pending Acetaminophen Urine Barbiturates Pos H Ur Phencyclidine (PCP) Neg U Amphetamin/Meth Scrn Neg MDMA (Ecstasy) Screen Neg Urine Amobarbital Pending Urine Pentobarbital Pending Urine Phenobarbital Pending Urine Secobarbital Pending U OH-Alprazolam Confrm Pending U Benzodiazepines Scrn Pos H 7-Amino Clonazepam Pending Ur Nordiazepam Confirm Pending U OH-ethylflurazepam Pending U Lorazepam Cnf GC/MS Pending U Oxazepam Confm GC/MS Pending Ur Temazepam Confirm Pending U OH-Triazolam Confirm Pending U OH-Midazolam Confirm Pending Ur Cocaine Metabolite Neg U Marijuana (THC) Screen Neg Ethyl Alcohol mg/dL Cold Agglutinins Herpes Virus Source HSV I DNA PCR HSV II DNA PCR 03/11/19 03/11/19 03/11/19 17:27 17:27 17:27 WBC RBC Hgb POC Hgb Hct POC Hct MCV MCH MCHC RDW Std Deviation RDW Coeff of [place] Plt Count MPV Immature Gran % (Auto) Neut % (Auto) Lymph % (Auto) Alfalfa % (Auto) Eos % (Auto) Baso % (Auto) Immature Gran # (Auto) Neut # (Auto) Lymph # (Auto) Alfalfa # (Auto) Eos # (Auto) Baso # (Auto) Platelet Estimate Hypochromasia Ovalocytes PT INR APTT PTT Ratio Specimen Type POC pH POC pCO2 POC pO2 POC HCO3 POC Base Excess VBG pH POC Sodium Sodium POC Potassium Potassium POC Chloride Chloride Carbon Dioxide POC Total CO2 Anion Gap POC Anion Gap POC BUN BUN Creatinine POC Creatinine Est Cr Clr Drug Dosing Est GFR ( Amer) Est GFR (Non-Af Amer) BUN/Creatinine Ratio Glucose POC Glucose POC Glucose (other) Lactate Calcium POC Ioniz Calcium Carol Phosphorus Magnesium Total Bilirubin AST ALT Alkaline Phosphatase Ammonia Total Creatine Kinase Troponin I Total Protein Albumin Globulin Albumin/Globulin Ratio Lipase HCG, Qual Urine Color Urine Appearance Urine pH Ur Specific [place] Urine Protein Urine Glucose (UA) Urine Ketones Urine Blood Urine Nitrite Urine Bilirubin Urine Urobilinogen Ur Leukocyte Esterase Urine WBC (Auto) Urine RBC (Auto) U Hyaline Cast (Auto) U Epithel Cells (Auto) Urine Bacteria (Auto) Ur Renal Epithelial Cell CSF Appearance Clear CSF Color Colorless Xanthrochromic No xanthochromia CSF WBC 1 CSF RBC 3 CSF Cell Count Tube # 3 CSF Chemistry Tube # 1 CSF Glucose 97 H CSF Total Protein 38.8 Nasal Screen MRSA (PCR) Urine Butalbital Salicylates Urine Opiates Screen U Codeine Confrm GC/MS Ur Morphine (GC/MS) Ur Hydrocodone (GC/MS) Ur Norhydrocodone Ur Noroxycodone Urine Oxycodone (GC/MS) U Oxymorphone GC/MS Ur Methadone, Qual Ur Hydromorphone (GC/MS) Acetaminophen Urine Barbiturates Ur Phencyclidine (PCP) U Amphetamin/Meth Scrn MDMA (Ecstasy) Screen Urine Amobarbital Urine Pentobarbital Urine Phenobarbital Urine Secobarbital U OH-Alprazolam Confrm U Benzodiazepines Scrn 7-Amino Clonazepam Ur Nordiazepam Confirm U OH-ethylflurazepam U Lorazepam Cnf GC/MS U Oxazepam Confm GC/MS Ur Temazepam Confirm U OH-Triazolam Confirm U OH-Midazolam Confirm Ur Cocaine Metabolite U Marijuana (THC) Screen Ethyl Alcohol mg/dL Cold Agglutinins Herpes Virus Source Pending HSV I DNA PCR Pending HSV II DNA PCR Pending 03/11/19 03/11/19 03/11/19 17:44 20:13 20:13 WBC RBC Hgb POC Hgb Hct POC Hct MCV MCH MCHC RDW Std Deviation RDW Coeff of [place] Plt Count MPV Immature Gran % (Auto) Neut % (Auto) Lymph % (Auto) Alfalfa % (Auto) Eos % (Auto) Baso % (Auto) Immature Gran # (Auto) Neut # (Auto) Lymph # (Auto) Alfalfa # (Auto) Eos # (Auto) Baso # (Auto) Platelet Estimate Hypochromasia Ovalocytes PT INR APTT PTT Ratio Specimen Type Arterial POC pH 7.21 L POC pCO2 58 H POC pO2 86 POC HCO3 23 POC Base Excess -5.0 VBG pH 7.13 L POC Sodium Sodium POC Potassium Potassium 4.4 D POC Chloride Chloride Carbon Dioxide POC Total CO2 25 Anion Gap POC Anion Gap POC BUN BUN Creatinine POC Creatinine Est Cr Clr Drug Dosing Est GFR ( Amer) Est GFR (Non-Af Amer) BUN/Creatinine Ratio Glucose POC Glucose POC Glucose (other) Lactate Calcium POC Ioniz Calcium Carol Phosphorus Magnesium Total Bilirubin AST ALT Alkaline Phosphatase Ammonia Total Creatine Kinase Troponin I 0.126 H* Total Protein Albumin Globulin Albumin/Globulin Ratio Lipase HCG, Qual Urine Color Urine Appearance Urine pH Ur Specific [place] Urine Protein Urine Glucose (UA) Urine Ketones Urine Blood Urine Nitrite Urine Bilirubin Urine Urobilinogen Ur Leukocyte Esterase Urine WBC (Auto) Urine RBC (Auto) U Hyaline Cast (Auto) U Epithel Cells (Auto) Urine Bacteria (Auto) Ur Renal Epithelial Cell CSF Appearance CSF Color Xanthrochromic CSF WBC CSF RBC CSF Cell Count Tube # CSF Chemistry Tube # CSF Glucose CSF Total Protein Nasal Screen MRSA (PCR) Urine Butalbital Salicylates Urine Opiates Screen U Codeine Confrm GC/MS Ur Morphine (GC/MS) Ur Hydrocodone (GC/MS) Ur Norhydrocodone Ur Noroxycodone Urine Oxycodone (GC/MS) U Oxymorphone GC/MS Ur Methadone, Qual Ur Hydromorphone (GC/MS) Acetaminophen Urine Barbiturates Ur Phencyclidine (PCP) U Amphetamin/Meth Scrn MDMA (Ecstasy) Screen Urine Amobarbital Urine Pentobarbital Urine Phenobarbital Urine Secobarbital U OH-Alprazolam Confrm U Benzodiazepines Scrn 7-Amino Clonazepam Ur Nordiazepam Confirm U OH-ethylflurazepam U Lorazepam Cnf GC/MS U Oxazepam Confm GC/MS Ur Temazepam Confirm U OH-Triazolam Confirm U OH-Midazolam Confirm Ur Cocaine Metabolite U Marijuana (THC) Screen Ethyl Alcohol mg/dL Cold Agglutinins Herpes Virus Source HSV I DNA PCR HSV II DNA PCR 03/11/19 03/11/19 03/12/19 20:13 Unknown 00:25 WBC RBC Hgb POC Hgb Hct POC Hct MCV MCH MCHC RDW Std Deviation RDW Coeff of [place] Plt Count MPV Immature Gran % (Auto) Neut % (Auto) Lymph % (Auto) Alfalfa % (Auto) Eos % (Auto) Baso % (Auto) Immature Gran # (Auto) Neut # (Auto) Lymph # (Auto) Alfalfa # (Auto) Eos # (Auto) Baso # (Auto) Platelet Estimate Hypochromasia Ovalocytes PT INR APTT PTT Ratio Specimen Type POC pH POC pCO2 POC pO2 POC HCO3 POC Base Excess VBG pH POC Sodium Sodium POC Potassium Potassium POC Chloride Chloride Carbon Dioxide POC Total CO2 Anion Gap POC Anion Gap POC BUN BUN Creatinine POC Creatinine Est Cr Clr Drug Dosing Est GFR ( Amer) Est GFR (Non-Af Amer) BUN/Creatinine Ratio Glucose POC Glucose 130 H POC Glucose (other) Lactate 1.9 Calcium POC Ioniz Calcium Carol Phosphorus Magnesium Total Bilirubin AST ALT Alkaline Phosphatase Ammonia Total Creatine Kinase Troponin I Total Protein Albumin Globulin Albumin/Globulin Ratio Lipase HCG, Qual Urine Color Urine Appearance Urine pH Ur Specific [place] Urine Protein Urine Glucose (UA) Urine Ketones Urine Blood Urine Nitrite Urine Bilirubin Urine Urobilinogen Ur Leukocyte Esterase Urine WBC (Auto) Urine RBC (Auto) U Hyaline Cast (Auto) U Epithel Cells (Auto) Urine Bacteria (Auto) Ur Renal Epithelial Cell CSF Appearance CSF Color Xanthrochromic CSF WBC CSF RBC CSF Cell Count Tube # CSF Chemistry Tube # CSF Glucose CSF Total Protein Nasal Screen MRSA (PCR) Negative Urine Butalbital Salicylates Urine Opiates Screen U Codeine Confrm GC/MS Ur Morphine (GC/MS) Ur Hydrocodone (GC/MS) Ur Norhydrocodone Ur Noroxycodone Urine Oxycodone (GC/MS) U Oxymorphone GC/MS Ur Methadone, Qual Ur Hydromorphone (GC/MS) Acetaminophen Urine Barbiturates Ur Phencyclidine (PCP) U Amphetamin/Meth Scrn MDMA (Ecstasy) Screen Urine Amobarbital Urine Pentobarbital Urine Phenobarbital Urine Secobarbital U OH-Alprazolam Confrm U Benzodiazepines Scrn 7-Amino Clonazepam Ur Nordiazepam Confirm U OH-ethylflurazepam U Lorazepam Cnf GC/MS U Oxazepam Confm GC/MS Ur Temazepam Confirm U OH-Triazolam Confirm U OH-Midazolam Confirm Ur Cocaine Metabolite U Marijuana (THC) Screen Ethyl Alcohol mg/dL Cold Agglutinins Herpes Virus Source HSV I DNA PCR HSV II DNA PCR 03/12/19 03/12/19 03/12/19 01:30 04:23 04:23 WBC 6.25 D RBC 4.04 L Hgb 9.2 L POC Hgb Hct 32.0 L POC Hct MCV 79.2 L MCH 22.8 L MCHC 28.8 L RDW Std Deviation 42.3 RDW Coeff of [place] 14.7 H Plt Count 78 L D MPV 9.2 Immature Gran % (Auto) 0.3 Neut % (Auto) 87.2 Lymph % (Auto) 5.9 Alfalfa % (Auto) 6.6 Eos % (Auto) 0.0 Baso % (Auto) 0.0 Immature Gran # (Auto) 0.02 Neut # (Auto) 5.45 Lymph # (Auto) 0.37 L Alfalfa # (Auto) 0.41 Eos # (Auto) 0.00 Baso # (Auto) 0.00 Platelet Estimate Decreased L Hypochromasia Present Ovalocytes PT INR APTT PTT Ratio Specimen Type POC pH POC pCO2 POC pO2 POC HCO3 POC Base Excess VBG pH POC Sodium Sodium 140 POC Potassium Potassium 4.0 POC Chloride Chloride 108 H Carbon Dioxide 25 POC Total CO2 Anion Gap 7.0 POC Anion Gap POC BUN BUN 6 L D Creatinine 0.79 POC Creatinine Est Cr Clr Drug Dosing 106.8 Est GFR ( Amer) 110.1 Est GFR (Non-Af Amer) 95.0 BUN/Creatinine Ratio 7.5 L Glucose 133 H POC Glucose POC Glucose (other) Lactate Calcium 7.5 L POC Ioniz Calcium Carol Phosphorus 3.5 Magnesium 2.0 Total Bilirubin AST ALT Alkaline Phosphatase Ammonia Total Creatine Kinase 996 H Troponin I 0.105 H* Total Protein Albumin Globulin Albumin/Globulin Ratio Lipase HCG, Qual Urine Color Urine Appearance Urine pH Ur Specific [place] Urine Protein Urine Glucose (UA) Urine Ketones Urine Blood Urine Nitrite Urine Bilirubin Urine Urobilinogen Ur Leukocyte Esterase Urine WBC (Auto) Urine RBC (Auto) U Hyaline Cast (Auto) U Epithel Cells (Auto) Urine Bacteria (Auto) Ur Renal Epithelial Cell CSF Appearance CSF Color Xanthrochromic CSF WBC CSF RBC CSF Cell Count Tube # CSF Chemistry Tube # CSF Glucose CSF Total Protein Nasal Screen MRSA (PCR) Urine Butalbital Salicylates Urine Opiates Screen U Codeine Confrm GC/MS Ur Morphine (GC/MS) Ur Hydrocodone (GC/MS) Ur Norhydrocodone Ur Noroxycodone Urine Oxycodone (GC/MS) U Oxymorphone GC/MS Ur Methadone, Qual Ur Hydromorphone (GC/MS) Acetaminophen Urine Barbiturates Ur Phencyclidine (PCP) U Amphetamin/Meth Scrn MDMA (Ecstasy) Screen Urine Amobarbital Urine Pentobarbital Urine Phenobarbital Urine Secobarbital U OH-Alprazolam Confrm U Benzodiazepines Scrn 7-Amino Clonazepam Ur Nordiazepam Confirm U OH-ethylflurazepam U Lorazepam Cnf GC/MS U Oxazepam Confm GC/MS Ur Temazepam Confirm U OH-Triazolam Confirm U OH-Midazolam Confirm Ur Cocaine Metabolite U Marijuana (THC) Screen Ethyl Alcohol mg/dL Cold Agglutinins Herpes Virus Source HSV I DNA PCR HSV II DNA PCR 03/12/19 03/12/19 03/12/19 10:54 10:55 10:55 WBC 5.12 RBC 4.06 L Hgb 9.4 L POC Hgb Hct 31.1 L POC Hct MCV 76.6 L MCH 23.2 L MCHC 30.2 L RDW Std Deviation 41.6 RDW Coeff of [place] 14.7 H Plt Count 82 L MPV 10.2 Immature Gran % (Auto) 0.0 Neut % (Auto) 80.3 Lymph % (Auto) 12.1 Alfalfa % (Auto) 7.4 Eos % (Auto) 0.0 Baso % (Auto) 0.2 Immature Gran # (Auto) 0.00 Neut # (Auto) 4.11 Lymph # (Auto) 0.62 L Alfalfa # (Auto) 0.38 Eos # (Auto) 0.00 Baso # (Auto) 0.01 Platelet Estimate Hypochromasia Ovalocytes PT INR APTT PTT Ratio Specimen Type POC pH POC pCO2 POC pO2 POC HCO3 POC Base Excess VBG pH POC Sodium Sodium POC Potassium Potassium POC Chloride Chloride Carbon Dioxide POC Total CO2 Anion Gap POC Anion Gap POC BUN BUN Creatinine POC Creatinine Est Cr Clr Drug Dosing Est GFR ( Amer) Est GFR (Non-Af Amer) BUN/Creatinine Ratio Glucose POC Glucose POC Glucose (other) Lactate Calcium POC Ioniz Calcium Carol Phosphorus Magnesium Total Bilirubin AST ALT Alkaline Phosphatase Ammonia Total Creatine Kinase Pending Troponin I Total Protein Albumin Globulin Albumin/Globulin Ratio Lipase HCG, Qual Urine Color Urine Appearance Urine pH Ur Specific [place] Urine Protein Urine Glucose (UA) Urine Ketones Urine Blood Urine Nitrite Urine Bilirubin Urine Urobilinogen Ur Leukocyte Esterase Urine WBC (Auto) Urine RBC (Auto) U Hyaline Cast (Auto) U Epithel Cells (Auto) Urine Bacteria (Auto) Ur Renal Epithelial Cell CSF Appearance CSF Color Xanthrochromic CSF WBC CSF RBC CSF Cell Count Tube # CSF Chemistry Tube # CSF Glucose CSF Total Protein Nasal Screen MRSA (PCR) Urine Butalbital Salicylates Urine Opiates Screen U Codeine Confrm GC/MS Ur Morphine (GC/MS) Ur Hydrocodone (GC/MS) Ur Norhydrocodone Ur Noroxycodone Urine Oxycodone (GC/MS) U Oxymorphone GC/MS Ur Methadone, Qual Ur Hydromorphone (GC/MS) Acetaminophen Urine Barbiturates Ur Phencyclidine (PCP) U Amphetamin/Meth Scrn MDMA (Ecstasy) Screen Urine Amobarbital Urine Pentobarbital Urine Phenobarbital Urine Secobarbital U OH-Alprazolam Confrm U Benzodiazepines Scrn 7-Amino Clonazepam Ur Nordiazepam Confirm U OH-ethylflurazepam U Lorazepam Cnf GC/MS U Oxazepam Confm GC/MS Ur Temazepam Confirm U OH-Triazolam Confirm U OH-Midazolam Confirm Ur Cocaine Metabolite U Marijuana (THC) Screen Ethyl Alcohol mg/dL Cold Agglutinins Pending Herpes Virus Source HSV I DNA PCR HSV II DNA PCR Medications Administered Home Medications alprazolam [Xanax] 1 mg PO BID PRN 03/11/19 [History Confirmed 03/11/19] aspirin [Aspir-81] 81 mg PO UD 03/11/19 [History Confirmed 03/11/19] pyisjusmsp-xyndljcrfqqca-mirp [Esgic] 1 cap PO Q4 PRN 03/11/19 [History Confirmed 03/11/19] cyclobenzaprine 10 mg PO BID PRN 03/11/19 [History Confirmed 03/11/19] esomeprazole magnesium [Nexium] 40 mg PO DAILY 03/11/19 [History Confirmed 03/11/19] furosemide [Lasix] 20 mg PO DAILY 03/11/19 [History Confirmed 03/11/19] gabapentin [Neurontin] 300 mg PO QID 03/11/19 [History Confirmed 03/11/19] hydroxyzine HCl 10 mg PO QID PRN 03/11/19 [History Confirmed 03/11/19] levothyroxine 300 mcg PO QAM 03/11/19 [History Confirmed 03/11/19] linaclotide [Linzess] 290 mcg PO DAILY 03/11/19 [History Confirmed 03/11/19] linagliptin [Tradjenta] 5 mg PO DAILY 03/11/19 [History Confirmed 03/11/19] lisinopril 20 mg PO DAILY 03/11/19 [History Confirmed 03/11/19] metformin 1,000 mg PO BID 03/11/19 [History Confirmed 03/11/19] methocarbamol [Robaxin-750] 1,500 mg PO BID PRN 03/11/19 [History Confirmed 03/11/19] nadolol 20 mg PO DAILY 03/11/19 [History Confirmed 03/11/19] ondansetron HCl [Zofran] 4 mg PO UD PRN 03/11/19 [History Confirmed 03/11/19] oxycodone [Roxicodone] 5 mg PO .Q4-6 PRN 03/11/19 [History Confirmed 03/11/19] pantoprazole [Protonix] 40 mg PO QAM 03/11/19 [History Confirmed 03/11/19] pseudoephedrine HCl 120 mg PO Q12H PRN 03/11/19 [History Confirmed 03/11/19] ranitidine HCl 150 mg PO BID 03/11/19 [History Confirmed 03/11/19] rifaximin [Xifaxan] 550 mg PO BID 03/11/19 [History Confirmed 03/11/19] ropinirole 6 mg PO HS 03/11/19 [History Confirmed 03/11/19] spironolactone [Aldactone] 150 mg PO DAILY 03/11/19 [History Confirmed 03/11/19] tramadol [Ultram] 50 mg PO Q6 PRN 03/11/19 [History Confirmed 03/11/19] venlafaxine [Effexor XR] 150 mg PO DAILY 03/11/19 [History Confirmed 03/11/19] Active Medications Aspirin (Ecotrin Ectab) 81 mg PO QAM CHERYLE Stop: 04/11/19 09:59 Furosemide (Lasix) 40 mg PO DAILY CHERYLE Stop: 04/11/19 10:29 Ioversol (Optiray 320 125ml) 120 ml IV ONCE PRN PRN Reason: Interaction Checking Stop: 03/15/19 16:21 Last Admin: 03/11/19 16:22 Dose: 120 ml Documented by: Lactulose (Chronulac) 30 gm PO BID PRN PRN Reason: Constipation Stop: 04/10/19 19:58 Levothyroxine Sodium (Synthroid) 300 mcg PO QAM CHERYLE Stop: 04/11/19 10:29 Miscellaneous (Icu Protocol For Hyperglycemia) 1 ea N/A PRN PRN; Protocol PRN Reason: Hyperglycemia Protocol Stop: 03/13/19 19:37 Nadolol (Corgard) 20 mg PO DAILY CHERYLE Stop: 04/11/19 10:29 Pantoprazole Sodium (Protonix) 40 mg PO DAILY CHERYLE Stop: 04/11/19 10:29 Ranitidine HCl (Zantac) 150 mg PO BID CHERYLE Stop: 04/11/19 10:29 Rifaximin (Xifaxan) 550 mg PO BID CHERYLE Stop: 04/11/19 10:29 Venlafaxine HCl (Effexor Extended Release) 150 mg PO DAILY CHERYLE Stop: 04/11/19 10:29 (1) Aspiration into respiratory tract Encounter type: initial encounter Qualified Code(s): T17.908A - Unspecified foreign body in respiratory tract, part unspecified causing other injury, initial encounter
[2019-03-12 09:27] LABS: iSTAT Arterial Blood Gas pCO2 58 mmHg (35-46); iSTAT Arterial Blood Gas pH 7.21 (7.35-7.45)
[2019-03-12 09:28] LABS: iSTAT Arterial Blood Gas HCO3 23 meg/L (19-24); iSTAT Carbon Dioxide 25 mEq/l (24-31); iSTAT Sample Type Arterial
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
[2019-03-12 11:01] LABS: Hematocrit (blood only) 31.1 % (37-47); Hemoglobin 9.4 g/dL (12.0-16.0); Mean Corpuscular Volume 76.6 fL (80-100); RDW Coefficient of Variation 14.7 % (11.5-14.5); RDW Standard Deviation 41.6 fL (36.4-46.3); Red Blood Count 4.06 M/uL (4.2-5.4); White Blood Count 5.12 K/uL (4.8-10.8)
[2019-03-12 11:14] LABS: Basophils # (auto) 0.01 K/uL (0-0.2); Basophils % (auto) 0.2 %; Lymphocytes # (auto) 0.62 K/uL (1.2-3.4); Lymphocytes % (auto) 12.1 %; Mean Corpuscular Hgb Conc 30.2 g/dL (32-36); Mean Platelet Volume 10.2 fL (7.4-10.4); Monocytes # (auto) 0.38 K/uL (0.11-0.59); Monocytes % (auto) 7.4 %; Neutrophils # (auto) 4.11 K/uL (1.4-6.5); Neutrophils % (auto) 80.3 %; Platelet Count 82 K/uL (130-400)
[2019-03-12] MEDS ORDERED: GLUCOSE 40% GEL 15 GM TUBE PO PRN (12:41)
[2019-03-12] MEDS ORDERED: DEXTROSE 50% 50 ML SYRINGE IV PRN (12:41)
[2019-03-12] MEDS ORDERED: GLUCOSE 10 TABS/TUBE PO PRN (12:41)
[2019-03-12] MEDS ORDERED: GLUCAGON FOR INJ 1 MG VIAL SQ PRN (12:41)
[2019-03-12] MEDS ORDERED: CARBOHYDRATES FOR HYPOGLYCEMIA PO PRN (12:41)
[2019-03-12] MEDS: FUROSEMIDE 40 MG TAB PO SCH (12:52)
[2019-03-12] MEDS: NADOLOL 40 MG TAB PO SCH (12:54)
[2019-03-12] MEDS: LEVOTHYROXINE SODIUM 150 MCG TABLET PO SCH (12:54)
[2019-03-12] MEDS: VENLAFAXINE HCL XR 150 MG CAPXR PO SCH (12:54)
[2019-03-12] MEDS: RIFAXIMIN 550 MG TABLET PO SCH ×2 (12:55→21:05)
[2019-03-12] MEDS: PANTOprazole 40 MG TAB PO SCH (12:56)
[2019-03-12 13:17] LABS: Hematocrit (blood only) 31.7 % (37-47); Hemoglobin 9.5 g/dL (12.0-16.0); Mean Corpuscular Volume 77.7 fL (80-100); RDW Coefficient of Variation 14.8 % (11.5-14.5); Red Blood Count 4.08 M/uL (4.2-5.4); White Blood Count 5.67 K/uL (4.8-10.8)
[2019-03-12 13:31] LABS: Albumin Level 3.5 gm/dl (3.4-5.0); Bilirubin Direct 0.1 mg/dl (0-0.2); Bilirubin,Total 0.4 mg/dl (0.2-1); Total Protein 7.2 gm/dl (6.4-8.2)
[2019-03-12 13:36] LABS: Basophils # (auto) 0.01 K/uL (0-0.2); Basophils % (auto) 0.2 %; Immature Granulocytes # (auto) 0.01 K/uL (0.00-0.02); Immature Granulocytes % (auto) 0.2 %; Lymphocytes # (auto) 0.57 K/uL (1.2-3.4); Lymphocytes % (auto) 10.1 %; Mean Platelet Volume 9.4 fL (7.4-10.4); Monocytes # (auto) 0.45 K/uL (0.11-0.59); Monocytes % (auto) 7.9 %; Neutrophils # (auto) 4.63 K/uL (1.4-6.5); Neutrophils % (auto) 81.6 %; Platelet Count 84 K/uL (130-400)
[2019-03-12] MEDS: ASPIRIN 81 MG ECTAB PO SCH (13:50)
[2019-03-12] MEDS: INSULIN ASPART 100 UNITS/ML 3 ML PEN SC SCH ×3 (14:57→21:24)
[2019-03-12] MEDS: GABAPENTIN 300 MG CAP PO SCH (21:04)
[2019-03-12] MEDS: ROPINIROLE HCL 1 MG TABLET PO SCH (21:04)
[2019-03-12] MEDS ORDERED: ONDANSETRON INJ 2 MG/ML 2 ML VIAL IV ONE (22:20)
[2019-03-12] MEDS ORDERED: ALPRAZolam 0.5 MG TABLET PO ONE (22:20)
--- NOTE | 2019-03-13 00:09 | Progress Note ---
Date of Service March 12, 2019 Called by the patient's bedside nurse stating that the patient seemed more restless than she was earlier in the evening. On brief review of the chart, patient was admitted yesterday for acute encephalopathy of unclear source. There is some concern for hepatic encephalopathy versus toxic ingestion. She was transferred out of the ICU earlier in the day due to apparent improvement. Vitals reviewed. Saw patient at bedside. She was sitting at the side of the bed and appeared a little disoriented. Initially she was a bit more conversational on questioning, stating that she was not in any pain. However, she states that she presently is at [facility] and then would not answer further on what city she was in or why she is here. When asked if she had taken any medicine this evening or drugs (heroin, marijuana) previously, she repeatedly said no. Later in our conversation she spontaneously said that she had to throw up. Exam: Patient only has a portion of her [place] J collar in place. She is moving her neck about spontaneously and easily with the portion of collar that is on. She seems to have some difficulty keeping her eyes open at times. She has a very distinct frequent yawn and occasionally makes startling movements with her arms. Her pupils are bilaterally dilated but reactive to light. Not tachycardic. Breathing comfortably on room air. She was cooperative when asked to sit back in the bed when we adjusted her [place] J collar. However immediately after this she again sat up and swung her legs to sit on the side of the bed. No present tremors. She did complain of some nausea and had an episode of dry heaves. A/P: Was called due to the patient's restlessness. It is unclear exactly what this is from, though with the information available & exam I suspect the patient is going through some level of opiate withdrawal. It is hard to know if she has a history of polysubstance abuse as well. - Provided a dose of Zofran IV for nausea. - Provided a single dose of her home Xanax, though at 0.5 mg p.o. - Her [place] J collar was reassembled upon her neck. - Recommended continuous pulse ox monitoring overnight. Doyle Sanchez, PGY3 Overnight call Results & Data Vital Signs (Past 12 Hours) Vital Signs Temp Pulse Pulse Resp BP BP Pulse Ox 03/12/19 23:50 123/82 94 07/19/19 23:41 36.8 C 20 172/111 H 95 03/12/19 23:06 03/12/19 22:03 36.8 C 82 22 150/104 H 94 03/12/19 15:33 36.7 C 82 21 122/84 93 03/12/19 12:40 36.9 C 93 H 18 127/80 95 Pulse Ox 03/12/19 23:50 03/12/19 23:41 03/12/19 23:06 96 03/12/19 22:03 03/12/19 15:33 03/12/19 12:40
[2019-03-13] MEDS ORDERED: ACETAMINOPHEN 325 MG TAB PO STA (02:58)
[2019-03-13] MEDS: PANTOprazole 40 MG TAB PO SCH (06:09)
[2019-03-13 06:34] LABS: Hemoglobin 9.1 g/dL (12.0-16.0); Mean Corpuscular Hgb Conc 30.3 g/dL (32-36); Mean Corpuscular Volume 75.9 fL (80-100); RDW Coefficient of Variation 14.7 % (11.5-14.5); RDW Standard Deviation 41.5 fL (36.4-46.3); Red Blood Count 3.95 M/uL (4.2-5.4); White Blood Count 4.28 K/uL (4.8-10.8)
[2019-03-13 07:15] LABS: BUN Creatinine Ratio 18.6 (10-20); Calcium 8.4 mg/dl (8.5-10.1); Creatinine Clr Calc Pharmacy 147.1 ml/min; Est GFR (African American) 136.3; Est GFR (Non-African American) 117.6; Magnesium 2.1 mg/dl (1.8-2.4); Phosphorus 1.6 mg/dl (2.5-4.9); Potassium 3.1 mmol/L (3.5-5.1)
[2019-03-13 07:25] LABS: Basophils # (auto) 0.01 K/uL (0-0.2); Basophils % (auto) 0.2 %; Eosinophils # (auto) 0.02 K/uL (0-0.5); Eosinophils % (auto) 0.5 %; Immature Granulocytes # (auto) 0.01 K/uL (0.00-0.02); Immature Granulocytes % (auto) 0.2 %; Lymphocytes # (auto) 0.57 K/uL (1.2-3.4); Lymphocytes % (auto) 13.3 %; Monocytes # (auto) 0.45 K/uL (0.11-0.59); Monocytes % (auto) 10.5 %; Neutrophils # (auto) 3.22 K/uL (1.4-6.5); Neutrophils % (auto) 75.3 %; Ovalocytes 1+; Platelet Count 92 K/uL (130-400); Tear Drop Cells 1+
[2019-03-13 07:55] LABS: Ferritin 20.9 ng/ml (8-388)
[2019-03-13 07:58] LABS: Estimated Average Glucose 126 mg/dl
[2019-03-13] MEDS: SPIRONOLACTONE 100 MG TAB PO SCH (08:10)
[2019-03-13] MEDS: GABAPENTIN 300 MG CAP PO SCH ×4 (08:11→20:34)
[2019-03-13] MEDS: NADOLOL 40 MG TAB PO SCH (08:11)
[2019-03-13] MEDS: RIFAXIMIN 550 MG TABLET PO SCH ×2 (08:12→20:36)
[2019-03-13] MEDS: ASPIRIN 81 MG ECTAB PO SCH (08:12)
[2019-03-13] MEDS: VENLAFAXINE HCL XR 150 MG CAPXR PO SCH (08:12)
[2019-03-13] MEDS: LEVOTHYROXINE SODIUM 150 MCG TABLET PO SCH (08:12)
[2019-03-13] MEDS: ONDANSETRON INJ 2 MG/ML 2 ML VIAL IV PRN ×2 (08:35→21:26)
[2019-03-13] MEDS: INSULIN ASPART 100 UNITS/ML 3 ML PEN SC SCH ×4 (08:36→20:54)
[2019-03-13] MEDS ORDERED: POTASSIUM PHOS 3 MMOL/1 ML INFUSION IV STA (08:45)
[2019-03-13] MEDS ORDERED: ALPRAZolam 0.25 MG TABLET PO PRN (08:50)
[2019-03-13] MEDS ORDERED: POTASSIUM PHOSPHATE 21 MMOL in SODIUM CHLORIDE 0.9% 500 ML IV ONE (09:00)
[2019-03-13] MEDS: METOCLOPRAMIDE HCL 5 MG TABLET PO PRN (09:21)
[2019-03-13] MEDS: OXYCODONE HCL IR 5 MG TAB (IMMEDIATE RELEASE) PO PRN ×2 (09:41→20:33)
[2019-03-13] MEDS: POTASSIUM CHLORIDE / WTR 10 MEQ/100 ML PLCT IV SCH ×2 (09:50→10:52)
[2019-03-13] MEDS: FUROSEMIDE 40 MG TAB PO SCH (09:51)
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
[2019-03-13] MEDS: IRON SUCROSE 100 MG in 0.9 % SODIUM CHLORIDE 100 ML IV SCH (17:48)
[2019-03-13] MEDS: ROPINIROLE HCL 1 MG TABLET PO SCH (20:35)
[2019-03-14] MEDS: OXYCODONE HCL IR 5 MG TAB (IMMEDIATE RELEASE) PO PRN ×3 (03:46→16:31)
[2019-03-14] MEDS: PANTOprazole 40 MG TAB PO SCH (05:53)
[2019-03-14 07:01] LABS: Hematocrit (blood only) 28.5 % (37-47); Hemoglobin 8.6 g/dL (12.0-16.0); Mean Corpuscular Hgb Conc 30.2 g/dL (32-36); Mean Corpuscular Volume 76.8 fL (80-100); RDW Coefficient of Variation 14.9 % (11.5-14.5); RDW Standard Deviation 42.4 fL (36.4-46.3); Red Blood Count 3.71 M/uL (4.2-5.4)
[2019-03-14 07:08] LABS: Mean Platelet Volume 9.7 fL (7.4-10.4); Platelet Count 79 K/uL (130-400)
[2019-03-14 07:34] LABS: Eosinophils # (auto) 0.02 K/uL (0-0.5); Eosinophils % (auto) 0.6 %; Hypochromasia Present; Lymphocytes # (auto) 0.57 K/uL (1.2-3.4); Lymphocytes % (auto) 17.3 %; Monocytes # (auto) 0.32 K/uL (0.11-0.59); Monocytes % (auto) 9.7 %; Neutrophils # (auto) 2.39 K/uL (1.4-6.5); Neutrophils % (auto) 72.4 %; Polychromasia 1+; Tear Drop Cells 1+
[2019-03-14 07:38] LABS: Alanine Aminotransferase 30 U/L (12-78); Albumin Level 3.3 gm/dl (3.4-5.0); Aspartate Aminotransferase 37 U/L (15-37); Bilirubin Direct < 0.1 mg/dl (0-0.2); Blood Urea Nitrogen 10 mg/dl (7-18); Calcium 8.3 mg/dl (8.5-10.1); Carbon Dioxide 32 mmol/L (21-32); Chloride 108 mmol/L (98-107); Creatinine Clr Calc Pharmacy 164.4 ml/min; Est GFR (African American) 141.4; Glucose 99 mg/dl (70-99); Potassium 2.9 mmol/L (3.5-5.1); Sodium 144 mmol/L (136-145)
[2019-03-14 07:47] LABS: Alkaline Phosphatase 63 U/L (45-117); Bilirubin,Total 0.3 mg/dl (0.2-1); Phosphorus 3.4 mg/dl (2.5-4.9); Total Protein 6.9 gm/dl (6.4-8.2)
[2019-03-14] MEDS: IRON SUCROSE 100 MG in 0.9 % SODIUM CHLORIDE 100 ML IV SCH (08:11)
[2019-03-14] MEDS: SPIRONOLACTONE 100 MG TAB PO SCH (08:13)
[2019-03-14] MEDS: LEVOTHYROXINE SODIUM 150 MCG TABLET PO SCH (08:13)
[2019-03-14] MEDS: NADOLOL 40 MG TAB PO SCH (08:14)
[2019-03-14] MEDS: VENLAFAXINE HCL XR 150 MG CAPXR PO SCH (08:15)
[2019-03-14] MEDS: GABAPENTIN 300 MG CAP PO SCH ×3 (08:15→17:21)
[2019-03-14] MEDS: INSULIN ASPART 100 UNITS/ML 3 ML PEN SC SCH ×3 (08:17→17:20)
[2019-03-14] MEDS: RIFAXIMIN 550 MG TABLET PO SCH (08:23)
[2019-03-14] MEDS: ASPIRIN 81 MG ECTAB PO SCH (08:23)
[2019-03-14] MEDS: METOCLOPRAMIDE HCL 5 MG TABLET PO PRN (08:31)
[2019-03-14] MEDS ORDERED: POTASSIUM CHLORIDE 20 MEQ TABCR PO STA (08:41)
[2019-03-14] MEDS: POTASSIUM CHLORIDE / WTR 10 MEQ/100 ML PLCT IV SCH ×4 (09:05→15:40)
[2019-03-14] MEDS: FUROSEMIDE 40 MG TAB PO SCH (09:19)
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
[2019-03-14 22:53] LABS: HSV Type 1 DNA Not Detected (Not Detected); HSV Type 1&2 DNA Source CSF; HSV Type 2 DNA Not Detected (Not Detected)
[2019-03-16 11:12] LABS: 7-Aminoclonaz, Confirm NEGATIVE NG/ML (CUTOFF=25); Amobarbital, Urine Conf NEGATIVE NG/ML (CUTOFF=100); Butalbital, Urine 3116 NG/ML (CUTOFF=100); Codeine Urine NEGATIVE NG/ML (CUTOFF=50); Hydro-Alp Ur, GC/MS 193 NG/ML (CUTOFF=25); Hydrocodone Urine NEGATIVE NG/ML (CUTOFF=50); Hydromor Urine NEGATIVE NG/ML (CUTOFF=50); Hydroxyethylflurazepam, Conf NEGATIVE NG/ML (CUTOFF=50); Hydroxytriazolam NEGATIVE NG/ML (CUTOFF=50); Lorazepam, Ur GC/MS NEGATIVE NG/ML (CUTOFF=50); Morphine Urine NEGATIVE NG/ML (CUTOFF=50); Nordiazepam, Confirm NEGATIVE NG/ML (CUTOFF=50); Norhydrocodone Conf Ur NEGATIVE NG/ML (CUTOFF=50); Noroxycodone Urine >20000 NG/ML (CUTOFF=50); Oxazepam Ur, GC/MS NEGATIVE NG/ML (CUTOFF=50); Oxycodone Urine 14400 NG/ML (CUTOFF=50); Oxymorph Urine 716 NG/ML (CUTOFF=50); Pentobarbital, Urine Conf NEGATIVE NG/ML (CUTOFF=100); Phenobarbital, Urine NEGATIVE NG/ML (CUTOFF=100); Secobarbital, Urine Conf NEGATIVE NG/ML (CUTOFF=100); Temazepam, Confirm NEGATIVE NG/ML (CUTOFF=50)
== END 2019-03-14 18:30 | disposition home health service (06) | DRG 208 ==
LOC: ED 15:28 → 1E 18:00 → SUATTDRO 18:00 → 1E 19:00 → 2N 03-12 13:08
DX: Z87.820 Personal history of traumatic brain injury; Z98.890 Other specified postprocedural states; K76.0 Fatty (change of) liver, not elsewhere classified; M62.82 Rhabdomyolysis; I24.8 Other forms of acute ischemic heart disease; F17.200 Nicotine dependence, unspecified, uncomplicated; K72.00 Acute and subacute hepatic failure without coma; K59.00 Constipation, unspecified; E87.6 Hypokalemia; Z79.899 Other long term (current) drug therapy; E11.9 Type 2 diabetes mellitus without complications; E87.5 Hyperkalemia; Z79.82 Long term (current) use of aspirin; J96.01 Acute respiratory failure with hypoxia; T50.905A Adverse effect of unspecified drugs, medicaments and biological substances, initial encounter; G92 Toxic encephalopathy; K76.6 Portal hypertension; J69.0 Pneumonitis due to inhalation of food and vomit; F41.9 Anxiety disorder, unspecified; J96.02 Acute respiratory failure with hypercapnia; Z79.84 Long term (current) use of oral hypoglycemic drugs

== ENCOUNTER 2020-07-31 06:04 | Observation (INO) ==
--- NOTE | 2020-07-11 14:24 | PAT Medication Instructions ---
Medication Instructions Date of Service July 11, 2020 Home Medications Medication Instructions Recorded alprazolam [Xanax] 0.5 mg PO HS PRN #0 tab 03/14/19 galcanezumab-gnlm 120 mg/mL 120 mg SUBCUT MONTHLY 30 Days #1 ml 05/26/20 subcutaneous pen injector Linzess 290 mcg PO QAM Xifaxan 1,100 mg PO QAM furosemide [Lasix] 40 mg PO QAM gabapentin [Neurontin] 900 mg PO QID levothyroxine 300 mcg PO QAM nadolol 20 mg PO QAM ropinirole 6 mg PO HS PRN spironolactone [Aldactone] 150 mg PO QAM venlafaxine [Effexor XR] 150 mg PO QAM lactulose 10 g PO DAILY PRN alprazolam [Xanax] 0.5 mg PO HS PRN linagliptin 5 mg tablet 5 mg PO QAM metformin 500 mg tablet,extended release 24hr 500 mg PO BID famotidine 20 mg tablet 20 mg PO BID omeprazole 40 mg capsule,delayed release 40 mg PO BID prochlorperazine maleate 10 mg tablet 10 mg PO TID PRN galcanezumab-gnlm 120 mg/mL subcutaneous pen injector 120 mg SUBCUT MONTHLY aspirin [Aspir-81] 81 mg PO QAM ipratropium-albuterol [Combivent Respimat] 1 puff INHALATION QID PRN oxycodone [Roxicodone] 10 mg PO BID PRN ASK your prescriber and surgeon aspirin [Aspir-81] 81 mg PO QAM galcanezumab-gnlm 120 mg/mL subcutaneous pen injector 120 mg SUBCUT MONTHLY DO NOT take the morning of surgery Linzess 290 mcg PO QAM furosemide [Lasix] 40 mg PO QAM spironolactone [Aldactone] 150 mg PO QAM linagliptin 5 mg tablet 5 mg PO QAM metformin 500 mg tablet,extended release 24hr 500 mg PO BID famotidine 20 mg tablet 20 mg PO BID Take morning of surgery With a small sip of water, OTHERWISE NOTHING TO EAT OR DRINK AFTER MIDNIGHT: Xifaxan 1,100 mg PO QAM gabapentin [Neurontin] 900 mg PO QID levothyroxine 300 mcg PO QAM nadolol 20 mg PO QAM venlafaxine [Effexor XR] 150 mg PO QAM lactulose 10 g PO DAILY PRN (if needed) famotidine 20 mg tablet 20 mg PO BID omeprazole 40 mg capsule,delayed release 40 mg PO BID prochlorperazine maleate 10 mg tablet 10 mg PO TID PRN (if needed) ipratropium-albuterol [Combivent Respimat] 1 puff INHALATION QID PRN (if needed) oxycodone [Roxicodone] 10 mg PO BID PRN (okay to take up to 4 hours prior to surgery if needed) Take evening before surgery gabapentin [Neurontin] 900 mg PO QID ropinirole 6 mg PO HS PRN (if needed) lactulose 10 g PO DAILY PRN (if needed) alprazolam [Xanax] 0.5 mg PO HS PRN (if needed) metformin 500 mg tablet,extended release 24hr 500 mg PO BID famotidine 20 mg tablet 20 mg PO BID omeprazole 40 mg capsule,delayed release 40 mg PO BID prochlorperazine maleate 10 mg tablet 10 mg PO TID PRN (if needed) ipratropium-albuterol [Combivent Respimat] 1 puff INHALATION QID PRN (if needed) oxycodone [Roxicodone] 10 mg PO BID PRN(if needed) Other Notes If you have any questions please call us at [phone] or [phone] or [phone] or [phone]
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
--- NOTE | 2020-07-14 13:03 | Electrocardiogram Report ---
Test Reason : Blood Pressure : / mmHG Vent. Rate : 063 BPM Atrial Rate : 063 BPM P-R Int : 170 ms QRS Dur : 096 ms QT Int : 476 ms P-R-T Axes : 052 080 031 degrees QTc Int : 487 ms Normal sinus rhythm Prolonged QT Abnormal ECG When compared with ECG of 11-MAR-2019 15:32, Vent. rate has decreased BY 32 BPM T wave amplitude has decreased in Anterior leads Confirmed by Mikal Blue ([id number]) on 07/14/2020 1:03:25 PM Referred By: Donovan Powell Confirmed By:Mikal Blue
[2020-07-14 13:33] LABS: Hematocrit (blood only) 35.8 % (37-47); Hemoglobin 11.1 g/dL (12.0-16.0); Mean Corpuscular Hemoglobin 28.2 pg (25-34); Mean Corpuscular Volume 91.1 fL (80-100); RDW Coefficient of Variation 13.2 % (11.5-14.5); RDW Standard Deviation 44.4 fL (36.4-46.3); Red Blood Count 3.93 M/uL (4.2-5.4); White Blood Count 2.37 K/uL (4.8-10.8)
[2020-07-14 13:43] LABS: Mean Platelet Volume 9.5 fL (7.4-10.4); Platelet Count 71 K/uL (130-400)
[2020-07-14 15:00] LABS: Basophils # (auto) 0.01 K/uL (0-0.2); Basophils % (auto) 0.4 %; Eosinophils # (auto) 0.08 K/uL (0-0.5); Eosinophils % (auto) 3.4 %; Lymphocytes # (auto) 0.54 K/uL (1.2-3.4); Lymphocytes % (auto) 22.8 %; Monocytes # (auto) 0.22 K/uL (0.11-0.59); Monocytes % (auto) 9.3 %; Neutrophils # (auto) 1.52 K/uL (1.4-6.5); Neutrophils % (auto) 64.1 %
[~2020-07-31 06:04] MED LIST changes: -ETOMIDATE 2 MG/ML 20 ML VIAL IV ONE; +LACTATED RINGER'S 1,000 ML IV SCH; +LR 15ML/HR IV SCH; -ROCURONIUM BROMIDE 10 MG/ML 10 ML VIAL IV ONE
[2020-07-31 06:59] LABS: Hemoglobin 12.5 g/dL (12.0-16.0); Mean Corpuscular Hemoglobin 29.3 pg (25-34); Mean Corpuscular Hgb Conc 32.9 g/dL (32-36); RDW Coefficient of Variation 13.6 % (11.5-14.5); RDW Standard Deviation 44.5 fL (36.4-46.3); Red Blood Count 4.27 M/uL (4.2-5.4); White Blood Count 2.71 K/uL (4.8-10.8)
[2020-07-31 07:06] LABS: Mean Platelet Volume 10.1 fL (7.4-10.4); Platelet Count 62 K/uL (130-400)
[2020-07-31] MEDS ORDERED: LARYING-O-JET KIT (LTA) ONE (07:07)
[2020-07-31] MEDS ORDERED: PROPOFOL IV EMULSION 10 MG/ML 20 ML VIAL IV ONE (07:07)
[2020-07-31] MEDS ORDERED: ONDANSETRON INJ 2 MG/ML 2 ML VIAL ONE ×2 (07:07→08:29)
[2020-07-31] MEDS ORDERED: ROCURONIUM BROMIDE 10 MG/ML 5 ML VIAL IV ONE ×3 (07:07→08:29)
[2020-07-31] MEDS ORDERED: NEOSTIGMINE METHYLSULFATE 5 MG/5 ML SYR ONE (07:07)
[2020-07-31] MEDS ORDERED: ePHEDrine sulfate 50 MG/ML SYR ONE (07:07)
[2020-07-31] MEDS ORDERED: MIDAZOLAM HCL 1 MG/ML 2ML VIAL ONE (07:07)
[2020-07-31] MEDS ORDERED: LIDOCAINE HCL 2% 2 ML VIAL/AMP(20MG/ML) INFIL ONE (07:07)
[2020-07-31] MEDS ORDERED: GLYCOPYRROLATE 0.2 MG/ML VIAL ONE (07:07)
[2020-07-31] MEDS ORDERED: PHENYLEPHRINE 100MCG/ML 5ML SYR ONE (07:07)
[2020-07-31] MEDS ORDERED: DEXAMETHASONE SOD INJ 4 MG/ML VIAL ONE ×2 (07:07→08:29)
[2020-07-31] MEDS ORDERED: fentaNYL citrate 100 MCG/2 ML VIAL ONE ×2 (07:08→08:08)
--- NOTE | 2020-07-31 07:13 | History & Physical Bridge Note ---
Date of Service July 31, 2020 History & Physical Bridge Note I have examined the patient, reviewed the History & Physical and in the interval since the performance of the History & Physical I have noted the following changes of clinical significance: no changes noted Note, reviewed higher risk for bleeding with lower platelet count and cirrhosis. Plt count 62 this am. Reviewed higher risk of internal organ injury with prior C/S
[2020-07-31 07:19] LABS: INR 1.2 (0.9-1.1); Partial Thromboplastin Time 27.9 Seconds (21.0-31.0); Prothrombin Time 12.8 Seconds (9.0-12.0)
[2020-07-31] MEDS ORDERED: BUPIVACAINE 0.5 % 5 MG/1 ML MPF 30ML VIAL ONE (07:22)
--- NOTE | 2020-07-31 07:22 | Communication Note ---
Date of Service: July 31, 2020 Spoke with anesthesia regarding her platelet count of 62 recommend having platelets available will do have this checked by staff
[2020-07-31] MEDS ORDERED: PROMETHAZINE HCL 12.5 MG in SODIUM CHLORIDE 0.9% 50 ML IV PRN ×2 (07:30→12:16)
[2020-07-31] MEDS ORDERED: ePHEDrine sulfate 50 MG/ML AMP IV PRN (07:30)
[2020-07-31] MEDS ORDERED: HYDROmorphone INJ 2 MG/ML SYR/VIAL IV PRN (07:30)
[2020-07-31] MEDS ORDERED: METOCLOPRAMIDE HCL INJ 5 MG/ML 2 ML VIAL IV PRN (07:30)
[2020-07-31] MEDS ORDERED: ATROPINE SULFATE 0.1 MG/ML 10ML SYR IV PRN (07:30)
[2020-07-31] MEDS ORDERED: ONDANSETRON INJ 2 MG/ML 2 ML VIAL IV PRN ×2 (07:30→12:16)
[2020-07-31 07:31] LABS: Basophils # (auto) 0.01 K/uL (0-0.2); Basophils % (auto) 0.4 %; Eosinophils # (auto) 0.05 K/uL (0-0.5); Eosinophils % (auto) 1.8 %; Lymphocytes % (auto) 22.1 %; Monocytes # (auto) 0.33 K/uL (0.11-0.59); Monocytes % (auto) 12.2 %; Neutrophils # (auto) 1.72 K/uL (1.4-6.5); Neutrophils % (auto) 63.5 %
[2020-07-31] MEDS ORDERED: TISSEEL FIBRIN SEALANT 4ML TOP ONE (08:36)
--- NOTE | 2020-07-31 10:00 | Operative Report ---
PG Post Operative Report Pre & Post Diagnosis Operation Date: 07/31/20 07:30 Pre-Op Diagnosis: Abnormal Uterine Bleeding, Uterine Fibroid Post-Op Diagnosis: Abnormal Uterine Bleeding, Uterine Fibroid I identified the patient and participated in the time-out.: Yes Procedure Operation Date: 07/31/20 07:30 Actual Procedures p Robotic Total Laparoscopic Hysterectomy, Bilateral Salpingectomy, Cystoscopy(Bilateral) - Donovan Powell MD, FACOG Surgeon Donovan Powell MD, FACOG Rice Drier Operator Dr. Alcaraz Estimated Blood Loss 50 Findings Consistent with Post-Op Diagnosis Specimens Uterus tubes cervix small left paratubal cyst Description of Procedure Patient was given a general anesthetic, prepped and draped in dorsal lithotomy position in yellow fin jesús stirrups. Care was taken to position the legs and arms properly with no excess pressure on any area. Pre-operative antibiotics were given and SCDs applied earlier. Granados catheter was inserted into her bladder, V-Care manipluator was placed in the uterus and sutured in place. Gloves were changed and then a supra-umbilical incision was made with scalpel, using Bryan technique, we dissected through the subcutaneous fat, fascia, split the rectus muscles and then entered the peritoneal cavity.. Blunt tip Bryan Trochar then inserted and balloon inflated to stabilize the port. CO2 gas was then used to insufflate the peritoneal cavity. Findings. Bilateral dilated fallopian tubes, small left charlene tubal cyst Deep tendelenberg position was obtained. 2 robotic ports were then placed, one on the left, one on the right side under direct visualization. 11mm bladeless accessory port placed in left upper quadrant under direct visualization. Robot docked. Arm #1 Monopolar daniel, arm #3 Bipolar [place] grasper. Fallopian tubes were identified and removed with the monoplar daniel and removed thru the accessory port. Ureter was identified on each side and followed a normal course. Distal to the left ovary, the blood supply was coagulated with the bipolar [place] and then cut with Daniel. We were well away from the ureter. Round ligament was coagulated and then cut. Uterine vessels were then skeletonized, bladder flap was sharply dissected away with daniel. Uterine vessels were then coagulated close to the cervix staying away from the left ureter. Vessels then cut. The exact same process was repeated on the right side taking note of the location of the right ureter at all times. Colpotomy was then performed with the monopolar daniel, once completed, the specimen was removed through the vagina. A sponge in a glove was then placed in the vagina to maintain pneumoperitoneum. It should be noted that the colpotomy initially was started on the cervix and there was some old blood within the cervix or possibly a degenerating fibroid in the cervix a yellowish type tissue this was suction irrigated out Instrument exchange then occurred. Arm #3 became the LOUISA needle special education bus driver, Arm # 1 became the [employer] Grasper. 12 inch 2-0 V-Lock 90 day suture was placed through the accessory port. Cuff was closed from left to right, then back taking at least 1cm full thickness bites of vaginal mucosa. Suture was cut so there was no tail, needle removed through the accessory port. Sponge removed from the vagina and seal air tight. Generous irrigation and suction, hemostasis excellent, Tisseal applied to pedicles. Cystoscopy performed and no injury to the bladder, no sutures noted, good strong jets of urine were noted from both right and left ureter openings. Cystoscope removed and a new granados catheter placed. Robot undocked, instruments, ports removed. gas allowed to escape. Incisions injected with Marcaine, fascia closed in the umbilical and a deep stitch into the accessory port with 0-Vicryl. 4-0 subcuticular skin closures on all incisions, dermabond apllied. Sponge and instrument counts correct. I attest to the content of the Intraoperative Record and any orders documented therein. Any exceptions are noted below. Procedure Pre-op/Post-op diagnoses: Pre-Op/Post-Op Diagnoses Operation Date: 07/31/20 07:30 Pre-Op Diagnosis: Abnormal Uterine Bleeding, Uterine Fibroid Post-Op Diagnosis: Abnormal Uterine Bleeding, Uterine Fibroid Procedure: Procedures Operation Date: 07/31/20 07:30 Actual Procedures Side Surgeon p Robotic Total Laparoscopic Hysterectomy, Bilateral Salpingectomy, Cystoscopy Bilateral Donovan Powell MD, FACOG
[2020-07-31] MEDS: fentaNYL citrate 100 MCG/2 ML VIAL IV PRN ×4 (10:40→11:00)
--- NOTE | 2020-07-31 12:02 | Anesthesiology Progress Note ---
Date of Service July 31, 2020 Anesthesia Post Procedure Vital Signs Vital Signs: Temp Pulse Pulse Resp BP BP Pulse Ox 07/31/20 11:40 36.8 C 77 17 138/79 07/31/20 11:30 36.8 C 73 11 L 144/84 H 93 07/31/20 11:20 36.8 C 80 14 138/71 95 07/31/20 11:10 36.8 C 92 H 14 144/82 H 97 07/31/20 11:00 36.8 C 88 21 142/76 H 95 07/31/20 10:50 36.8 C 81 18 137/83 94 07/31/20 10:40 79 15 138/83 97 07/31/20 10:30 88 15 143/81 H 97 07/31/20 10:20 87 17 137/85 97 07/31/20 10:10 36.3 C L 92 H 20 150/92 H 100 07/31/20 10:01 36.3 C L 97 H 16 138/87 100 07/31/20 06:48 37.2 C 77 18 121/81 96 Pain Intensity Head: Pain Intensity: 2 Abdomen: Pain Intensity: 2 Transfer of Care Handoff Completed per policy Notes Mental Status: alert / awake / arousable and participated in evaluation Patient Amnestic to Procedure: Yes Nausea / Vomiting: adequately controlled Pain: adequately controlled Airway Patency, RR, SpO2: stable & adequate BP & HR: stable & adequate Hydration State: stable & adequate Anesthetic Complications: no major complications apparent
[2020-07-31] MEDS ORDERED: IPRATROPIUM BROMIDE/ALBUTEROL respimat INH INH PRN (12:16)
[2020-07-31] MEDS ORDERED: PROMETHAZINE HCL 25 MG in SODIUM CHLORIDE 0.9% 50 ML IV PRN (12:16)
[2020-07-31] MEDS ORDERED: LACTULOSE SYRUP 10 GM/15 ML BTL 960 ML PO PRN (12:16)
[2020-07-31] MEDS ORDERED: rOPINIRole HCL 1 MG TABLET PO PRN (12:16)
[2020-07-31] MEDS ORDERED: MAGNESIUM HYDROXIDE SUSP 30 ML UDC PO PRN (12:16)
[2020-07-31] MEDS ORDERED: bisacodyL 10 MG SUPP PR PRN (12:16)
[2020-07-31] MEDS ORDERED: oxyCODONE/ACETAMINOPHEN 5mg/325mg TAB PO PRN ×2 (12:16)
[2020-07-31] MEDS ORDERED: NON-FORMULARY MEDICATION (Galcanezumab-Gnlm [Emgality Pen] 120 mg/mL pen injector) SQ SCH (12:16)
[2020-07-31] MEDS ORDERED: ALPRAZolam 0.5 MG TABLET PO PRN (12:16)
[2020-07-31] MEDS ORDERED: oxyCODONE HCL IR 5 MG TAB (IMMEDIATE RELEASE) PO PRN (12:16)
[2020-07-31] MEDS ORDERED: MEPERIDINE HCL 50 MG/ML CARP IV PRN (12:16)
[2020-07-31] MEDS: SIMETHICONE 80 MG CHEW PO PRN ×2 (12:56→16:20)
[2020-07-31] MEDS: GABAPENTIN 300 MG CAP PO SCH ×2 (12:59→16:21)
[2020-07-31] MEDS ORDERED: LACTATED RINGER'S 1,000 ML IV SCH (13:00)
[2020-07-31] MEDS ORDERED: MoRPHine SULFATE CR 15 MG TABCR PO SCH (14:00)
[2020-07-31] MEDS ORDERED: LINZESS: ORDER AWAITING ACTION SCH (16:00)
[2020-07-31 16:14] LABS: Hematocrit (blood only) 37.7 % (37-47); Hemoglobin 12.1 g/dL (12.0-16.0); Mean Corpuscular Hemoglobin 28.5 pg (25-34); Mean Corpuscular Hgb Conc 32.1 g/dL (32-36); Mean Corpuscular Volume 88.7 fL (80-100); RDW Coefficient of Variation 13.5 % (11.5-14.5); RDW Standard Deviation 43.9 fL (36.4-46.3); Red Blood Count 4.25 M/uL (4.2-5.4)
[2020-07-31 16:29] LABS: Mean Platelet Volume 10.1 fL (7.4-10.4); Platelet Count 67 K/uL (130-400)
[2020-07-31] MEDS ORDERED: metFORMIN HCL ER 500 MG TABCR PO SCH (17:00)
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
[2020-07-31] MEDS ORDERED: FAMOTIDINE 20 MG TAB PO SCH (21:00)
[2020-07-31] MEDS ORDERED: PANTOprazole 40 MG TAB PO SCH (21:00)
[2020-07-31] MEDS ORDERED: DOCUSATE SODIUM 100 MG CAP PO SCH (21:00)
[2020-08-01] MEDS ORDERED: LEVOTHYROXINE SODIUM 150 MCG TABLET PO SCH (06:30)
[2020-08-01] MEDS ORDERED: ASPIRIN 81 MG ECTAB PO SCH (09:00)
[2020-08-01] MEDS ORDERED: rifAXIMin 550 MG TABLET PO SCH (09:00)
[2020-08-01] MEDS ORDERED: FUROSEMIDE 40 MG TAB PO SCH (09:00)
[2020-08-01] MEDS ORDERED: nadoloL 40 MG TAB PO SCH (09:00)
[2020-08-01] MEDS ORDERED: SPIRONOLACTONE 100 MG TAB PO SCH (09:00)
--- NOTE | 2020-08-02 09:45 | Discharge Summary ---
Date of Service August 02, 2020 Discharge Data Consultations 07/31/20 12:16 Consult Hospitalist Routine Procedures Performed Operation Date: 07/31/20 07:30 Actual Procedures p Robotic Total Laparoscopic Hysterectomy, Bilateral Salpingectomy(Bilateral) - Donovan Powell MD, TANIA s Cystoscopy - Ant Alcaraz Jr, MD, FACOG Hospital Course (1) Pelvic pain: Patient with multiple medical problems including nonalcoholic cirrhosis and a low platelet count had a hysterectomy laparoscopically performed on July 31 this was uncomplicated and blood loss was in normal limits her course in hospital was short she was sent to the floor a repeat platelet count of 67 which was higher than her morning count of 62 was found at 4 PM the patient was ambulating well tolerating an oral diet pain was well controlled and she was discharged at that time she was voiding as well discharge instructions were reviewed and patient was to follow-up in the office and call sooner with any problems Coding Level of Care Code None Diagnoses Pelvic pain R10.2
== END 2020-07-31 17:45 | disposition home or self-care (01) ==
LOC: 4S2 06:04 → ASU 06:04

== ENCOUNTER 2023-01-08 12:33 | Inpatient (IN) ==
[2023-01-08] MEDS ORDERED: SODIUM CHLORIDE 0.9% 1000ML 1,000 ML IV SCH (12:45)
[2023-01-08 13:19] LABS: iSTAT Creatinine 1.4 mg/dl (0.6-1.3); iSTAT Hemoglobin 8.5 g/dl (12.0-16.0); iSTAT Ionized Calcium 1.05 mmol/l (1.12-1.32); iSTAT Potassium 4.4 mmol/L (3.3-5.0)
--- NOTE | 2023-01-08 13:22 | XRay Report ---
SINGLE VIEW CHEST CLINICAL HISTORY: Sepsis. FINDINGS: An AP, portable, upright chest radiograph is compared to chest x-ray and chest CT dated 02/22. The cardiomediastinal silhouette is unremarkable. There is mild elevation of the right hemidi aphragm. The lungs and pleural spaces are clear. No pneumothorax is seen. The bony thorax is grossly intact. Fusion hardware is noted in the lower cervical spine. Calcific tendinopathy is noted in the r ight shoulder. IMPRESSION: No active disease in the chest. ACT 112: Negative or not required by law. Electronically signed by: Davide Vines M.D. 01/08/2023 1:20 PM
[2023-01-08 13:24] LABS: HCO3 VBG 34 mmol/L; Oxygen Saturation VBG 77.3 %; PCO2 VBG 51 mmHg (38-50); PO2 VBG 46 mmHg; pH VBG 7.43 (7.36-7.41)
[2023-01-08 13:35] LABS: Hematocrit (blood only) 26.7 % (37.0-47.0); Hemoglobin 8.8 g/dl (12.0-16.0); Mean Corpuscular Hemoglobin 30.4 pg (25.0-34.0); Mean Corpuscular Volume 92.4 fL (80.0-100.0); Mean Platelet Volume 10.6 fL (9.4-12.4); Platelet Count 62 K/uL (130-400); RDW Coefficient of Variation 17.2 % (11.5-14.5); RDW Standard Deviation 58.7 fL (36.4-46.3); Red Blood Count 2.89 M/uL (4.20-5.40); White Blood Count 3.46 K/ul (4.8-10.8)
--- NOTE | 2023-01-08 13:38 | Electrocardiogram Report ---
Test Reason : Blood Pressure : / mmHG Vent. Rate : 068 BPM Atrial Rate : 068 BPM P-R Int : 136 ms QRS Dur : 092 ms QT Int : 482 ms P-R-T Axes : 048 019 021 degrees QTc Int : 512 ms Normal sinus rhythm Low voltage QRS Poor R wave progression, consider anterior [place] vs. lead placement vs. LVH Prolonged QT Abnormal ECG When compared with ECG of 14-JUL-2020 12:08, Questionable change in QRS axis Confirmed by Rafal Barrera ([id number]) on 01/08/2023 1:38:27 PM Referred By: Confirmed By:Adi Barrera
[2023-01-08 13:51] LABS: Alanine Aminotransferase 50 U/L (7-52); Albumin Level 2.5 gm/dl (3.4-5.0); Alkaline Phosphatase 81 U/L (34-104); Anion Gap 3 (3-11); Aspartate Aminotransferase 120 U/L (13-39); BUN Creatinine Ratio 19.7 (10-20); Bilirubin Direct 0.2 mg/dl (0-0.2); Bilirubin,Total 0.9 mg/dl (0.2-1.0); Blood Urea Nitrogen 24 mg/dl (6-23); Calcium 8.4 mg/dl (8.6-10.3); Chloride 101 mmol/L (98-107); Est GFR (African American) 63.3 ml/min; Est GFR (Non-African American) 54.6 ml/min; Glucose 108 mg/dl (70-99(Fasting)); Magnesium 2.1 mg/dl (1.7-2.4); Potassium 4.5 mmol/L (3.5-5.1); Sodium 138 mmol/L (136-145)
[2023-01-08 13:57] LABS: Troponin I High Sensitivity 5.4 pg/ml (0-14)
[2023-01-08 14:00] LABS: Carbon Dioxide 34 mmol/L (21-32)
--- NOTE | 2023-01-08 14:00 | CT Scan Report ---
CT SCAN OF THE BRAIN WITHOUT IV CONTRAST CLINICAL HISTORY: Fall. COMPARISON STUDY: CT of the brain dated 09/19/2022. TECHNIQUE: Unenhanced axial CT scan of the brain is performed from the vertex to the skull base. A d ose lowering technique was utilized adhering to the principles of ALARA. CT DOSE: 2301.57 mGy.cm FINDINGS: Brain parenchyma: The brain parenchyma is normal in appearance. There is no hemorrhage, mass effect, or evidence of acute territorial ischemia by CT criteria. Hyatt-white matter differentiation is preser chester. No extra-axial fluid collection is seen. Ventricles, sulci, cisterns: Normal in configuration. Intracranial vasculature: The visualized intracranial vasculature at the skull base is normal in appe arance. Calvarium: Unremarkable. Sinuses and mastoids: The visualized paranasal sinuses are clear. The mastoid air cells are well pneu matized. Orbits: The bony orbits are grossly intact. IMPRESSION: No acute intracranial abnormality. ACT 112: Negative or not required by law. Electronically signed by: Davide Vines M.D. 01/08/2023 1:58 PM
[2023-01-08] MEDS ORDERED: OPTIRAY 320 500ml IV ONE (14:02)
[2023-01-08 14:03] LABS: Basophils # (auto) 0.02 K/uL (0-0.2); Basophils % (auto) 0.6 %; Eosinophils # (auto) 0.15 K/uL (0-0.50); Eosinophils % (auto) 4.3 %; Immature Granulocytes # (auto) 0.01 K/uL (0.01-0.20); Immature Granulocytes % (auto) 0.3 %; Lymphocytes # (auto) 0.83 K/uL (1.2-3.4); Monocytes # (auto) 0.38 K/uL (0.11-0.59); Neutrophils # (auto) 2.07 K/uL (1.40-6.50); Neutrophils % (auto) 59.8 %
[2023-01-08] MEDS ORDERED: SODIUM CHLORIDE 0.9% 1000ML 1,000 ML IV ONE (14:10)
--- NOTE | 2023-01-08 14:13 | CT Scan Report ---
CT cervical spine wo con CLINICAL HISTORY: 42 years-old Female with fall. Acute neck pain status post fall COMPARISON: Head CT of same day, CTA neck 09/19/2022 TECHNIQUE: Multiple axial CT images of the cervical spine were obtained without contrast. A dose low ering technique was utilized adhering to the principles of ALARA. FINDINGS: No acute fracture or subluxation identified. Anterior plate and screw with posterior henri an d screw fusion at C5-C7. No evidence of hardware complication. Multilevel degenerative changes. The cervical soft tissues appear unremarkable. The visualized lung apices appear clear. IMPRESSION: No acute fracture or subluxation. ACT 112: Negative or not required by law. The above report was generated using voice recognition software. It may contain grammatical, syntax o r spelling errors. Electronically signed by: Lorenzo Ocampo M.D. 01/08/2023 2:11 PM
--- NOTE | 2023-01-08 14:25 | CT Scan Report ---
CT abd pelvis IV con only CLINICAL HISTORY: fall TECHNIQUE: Helical axial images of the abdomen and pelvis were obtained and displayed. Automated dose lowering techniques and/or adjustment according to patient size were utilized for this exam. This e xam was performed with intravenous contrast. COMPARISON: Comparison is made to CT abdomen pelvis 05/29/2020 FINDINGS: Lower chest: There is a 9 mm nodule in the left lower lobe (series 7 image 26) which was not seen on prior exam. Liver: Nodular contour of the liver is seen compatible with cirrhosis. Gallbladder and biliary tree: Patient is status post cholecystectomy. Physiologic prominence of the b iliary ducts is noted. Pancreas: Unremarkable, no focal lesions. Spleen: Splenomegaly is noted, the spleen measures 21 cm in craniocaudal dimension. Adrenals: Unremarkable. Kidneys and ureters: Unremarkable. Bladder: Unremarkable. Reproductive organs: Patient is status post hysterectomy. Bowel: The appendix is normal. Postsurgical changes are seen about the stomach. Lymph nodes Retroperitoneal: Subcentimeter lymph nodes are noted. Pelvic: Unremarkable. Mesenteric: Subcentimeter lymph nodes are noted. Peritoneum: Diffuse fat stranding and small ascites are noted. Vessels: Atherosclerotic calcifications are seen. Numerous varices are seen. There is recanalization of the paraumbilical vein. Abdominal wall: Body wall edema is seen. Bones: Degenerative changes in the visualized spine. A few bone islands are seen. No evidence of acut e fracture. IMPRESSION: 1. No acute fractures are seen in this patient status post fall. 2. Cirrhosis and portal hypertension findings noted. 3. Nonspecific ascites and mesenteric lymph nodes. 4. Interval hysterectomy. 5. Additional findings as above. ACT 112: Negative or not required by law. Electronically signed by: Mohit Perez M.D. 01/08/2023 2:24 PM
[2023-01-08] MEDS ORDERED: LACTULOSE SYRUP 30 GM/45 ML UDP PO STA (14:28)
[2023-01-08 14:56] LABS: INR 1.4 (0.9-1.1); Partial Thromboplastin Time 27.1 Seconds (21.0-31.0); Prothrombin Time 14.7 Seconds (9.0-12.0)
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
--- NOTE | 2023-01-08 15:28 | XRay Report ---
SINGLE VIEW PELVIS CLINICAL HISTORY: Fall. FINDINGS: An AP supine view of the pelvis is correlated with pelvic CT performed the same day 01/09/20. The skeletal structures are well mineralized. There is no radiographic evidence of acute fracture involving the hips or bony pelvis. The joint spaces of the hips are maintained. The sacroiliac joint s are normal. Excreted IV contrast fills the bladder. The overlying soft tissues are within normal li mits. IMPRESSION: No acute bony abnormality is identified. Electronically signed by: Davide Vines M.D. 01/08/2023 3:26 PM
[2023-01-08] MEDS ORDERED: PANTOPRAZOLE BOLUS/DRIP 1 EACH IV STA (15:39)
[2023-01-08] MEDS ORDERED: cefTRIAXone SODIUM 2,000 MG/70 ML BAG IV STA (15:58)
[2023-01-08] MEDS ORDERED: STAT IV STA (15:58)
[2023-01-08] MEDS ORDERED: PANTOprazole 80 MG in DEXTROSE 5% 100 ML IV ONE (16:00)
[2023-01-08] MEDS ORDERED: OCTREOTIDE ACETATE 50 MCG in SYRINGE 9.5 ML IV ONE (16:30)
--- NOTE | 2023-01-08 16:33 | Ultrasound Report ---
ULTRASOUND BILATERAL LOWER EXTREMITY VENOUS CLINICAL HISTORY: Bilateral leg pain and swelling. COMPARISON STUDY: No priors. TECHNIQUE: Real-time, grayscale, and color Doppler sonography of the deep veins of the right and left lower extremity was performed from the inguinal crease to the calf. Compression and augmentation wer e utilized. FINDINGS: There is no sonographic evidence of deep venous thrombosis identified in the right or left lower extremity. The common femoral, superficial femoral, and popliteal veins are patent and normally compressible bilaterally. The greater saphenous vein and the profunda femoris vein at the junction w ith the common femoral vein are clear in both legs. The visualized calf veins are patent bilaterally. IMPRESSION: There is no sonographic evidence of deep venous thrombosis identified in the right or lef t lower extremity. ACT 112: Negative or not required by law. Electronically signed by: Davide Vines M.D. 01/08/2023 4:31 PM
[2023-01-08] MEDS: Patient's HEIGHT &/or WEIGHT Needed SCH (16:40)
[2023-01-08 16:55] LABS: Iron 48 mcg/dl (35-150); Total Iron Binding Cap Calc 231 mcg/dl (250-450); Transferrin (FE) Percent Satur 21 % (15-50); Unsaturated Iron Binding Cap 183 mcg/dl (155-355)
[2023-01-08] MEDS: PANTOprazole 40 MG in DEXTROSE 5% 100 ML IV SCH ×2 (17:14→22:36)
[2023-01-08 17:15] LABS: Ferritin 46.2 ng/ml (8-388)
[2023-01-08 18:20] LABS: Reticulocyte % 3.7 % (0.5-2.0); Reticulocytes # 0.11 10^6/uL (0.02-0.10)
--- NOTE | 2023-01-08 18:43 | Emergency Department Note ---
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 (6-23) mg/dl Creatinine (0.6-1.2) mg/dl POC Creatinine (0.6-1.3) mg/dl Est Cr Clr Drug Dosing Est GFR ( Amer) ml/min Est GFR (Non-Af Amer) ml/min BUN/Creatinine Ratio (10-20) Glucose (70-99(Fasting)) mg/dl POC Glucose (other) (70-99) mg/dl Lactate (0.4-2.0) mmol/L Calcium (8.6-10.3) mg/dl POC Ioniz Calcium Carol (1.12-1.32) mmol/l Magnesium (1.7-2.4) mg/dl Iron (35-150) mcg/dl TIBC (250-450) mcg/dl Unsaturated IBC (155-355) mcg/dl Transferrin % Sat (15-50) % Ferritin (8-388) ng/ml Total Bilirubin (0.2-1.0) mg/dl Direct Bilirubin (0-0.2) mg/dl AST (13-39) U/L ALT (7-52) U/L Alkaline Phosphatase (34-104) U/L Ammonia (18-72) umol/L Troponin I High Sens (0-14) pg/ml Total Protein (6.0-8.3) gm/dl Albumin (3.4-5.0) gm/dl Vitamin B12 (180-914) pg/ml Folate (>5.38) ng/ml Procalcitonin (0-0.5) ng/ml SARS-CoV-2, RNA, NAAT (NEGATIVE) Blood Type A Positive Antibody Screen NEGATIVE Imaging Data Attestation: I personally reviewed and interpreted this imaging study as follows: My Impression: Chest x-ray negative. Airway clear. No pneumothorax. No consolidation. No cardiomegaly or cephalization.. No free air under the diaphragm. No fractures of the skeletal structures. Radiologist's Impression: Chest X-Ray 01/08/23 12:46 SINGLE VIEW CHEST CLINICAL HISTORY: Sepsis. FINDINGS: An AP, portable, upright chest radiograph is compared to chest x-ray and chest CT dated 03/11/2019. The cardiomediastinal silhouette is unremarkable. There is mild elevation of the right hemidiaphragm. The lungs and pleural spaces are clear. No pneumothorax is seen. The bony thorax is grossly intact. Fusion hardware is noted in the lower cervical spine. Calcific tendinopathy is noted in the right shoulder. IMPRESSION: No active disease in the chest. ACT 112: Negative or not required by law. Electronically signed by: Davide Vines M.D. 01/08/2023 1:20 PM Abdomen/Pelvis CT 01/08/23 12:55 CT abd pelvis IV con only CLINICAL HISTORY: fall TECHNIQUE: Helical axial images of the abdomen and pelvis were obtained and displayed. Automated dose lowering techniques and/or adjustment according to patient size were utilized for this exam. This exam was performed with intravenous contrast. COMPARISON: Comparison is made to CT abdomen pelvis 05/29/2020 FINDINGS: Lower chest: There is a 9 mm nodule in the left lower lobe (series 7 image 26) which was not seen on prior exam. Liver: Nodular contour of the liver is seen compatible with cirrhosis. Gallbladder and biliary tree: Patient is status post cholecystectomy. Physiologic prominence of the biliary ducts is noted. Pancreas: Unremarkable, no focal lesions. Spleen: Splenomegaly is noted, the spleen measures 21 cm in craniocaudal dimension. Adrenals: Unremarkable. Kidneys and ureters: Unremarkable. Bladder: Unremarkable. Reproductive organs: Patient is status post hysterectomy. Bowel: The appendix is normal. Postsurgical changes are seen about the stomach. Lymph nodes Retroperitoneal: Subcentimeter lymph nodes are noted. Pelvic: Unremarkable. Mesenteric: Subcentimeter lymph nodes are noted. Peritoneum: Diffuse fat stranding and small ascites are noted. Vessels: Atherosclerotic calcifications are seen. Numerous varices are seen. There is recanalization of the paraumbilical vein. Abdominal wall: Body wall edema is seen. Bones: Degenerative changes in the visualized spine. A few bone islands are s een. No evidence of acute fracture. IMPRESSION: 1. No acute fractures are seen in this patient status post fall. 2. Cirrhosis and portal hypertension findings noted. 3. Nonspecific ascites and mesenteric lymph nodes. 4. Interval hysterectomy. 5. Additional findings as above. ACT 112: Negative or not required by law. Electronically signed by: Mohit Perez M.D. 01/08/2023 2:[address] 01/08/23 12:55 CT cervical spine wo con CLINICAL HISTORY: 42 years-old Female with fall. Acute neck pain status post fall COMPARISON: Head CT of same day, CTA neck 09/19/2022 TECHNIQUE: Multiple axial CT images of the cervical spine were obtained without contrast. A dose lowering technique was utilized adhering to the principles of ALARA. FINDINGS: No acute fracture or subluxation identified. Anterior plate and screw with posterior henri and screw fusion at C5-C7. No evidence of hardware complication. Multilevel degenerative changes. The cervical soft tissues appear unremarkable. The visualized lung apices appear clear. IMPRESSION: No acute fracture or subluxation. ACT 112: Negative or not required by law. The above report was generated using voice recognition software. It may contain grammatical, syntax or spelling errors. Electronically signed by: Lorenzo Ocampo M.D. 01/08/2023 2:[address] 01/08/23 12:55 CT SCAN OF THE BRAIN WITHOUT IV CONTRAST CLINICAL HISTORY: Fall. COMPARISON STUDY: CT of the brain dated 09/19/2022. TECHNIQUE: Unenhanced axial CT scan of the brain is performed from the vertex to the skull base. A dose lowering technique was utilized adhering to the princ iples of RE. CT DOSE: 2301.57 mGy.cm FINDINGS: Brain parenchyma: The brain parenchyma is normal in appearance. There is no hemorrhage, mass effect, or evidence of acute territorial ischemia by CT criteria. Hyatt-white matter differentiation is preserved. No extra-axial fluid collection is seen. Ventricles, sulci, cisterns: Normal in configuration. Intracranial vasculature: The visualized intracranial vasculature at the skull base is normal in appearance. Calvarium: Unremarkable. Sinuses and mastoids: The visualized paranasal sinuses are clear. The mastoid air cells are well pneumatized. Orbits: The bony orbits are grossly intact. IMPRESSION: No acute intracranial abnormality. ACT 112: Negative or not required by law. Electronically signed by: Davide Vines M.D. 01/08/2023 1:58 PM Pelvis X-Ray 01/08/23 12:55 SINGLE VIEW PELVIS CLINICAL HISTORY: Fall. FINDINGS: An AP supine view of the pelvis is correlated with pelvic CT performed the same day 01/08/2023. The skeletal structures are well mineralized. There is no radiographic evidence of acute fracture involving the hips or bony pelvis. The joint spaces of the hips are maintained. The sacroiliac joints are normal. Excreted IV contrast fills the bladder. The overlying soft tissues are within normal limits. IMPRESSION: No acute bony abnormality is identified. Electronically signed by: Davide Vines M.D. 01/08/2023 3:26 PM Venous Doppler Study 01/08/23 15:33 ULTRASOUND BILATERAL LOWER EXTREMITY VENOUS CLINICAL HISTORY: Bilateral leg pain and swelling. COMPARISON STUDY: No priors. TECHNIQUE: Real-time, grayscale, and color Doppler sonography of the deep veins of the right and left lower extremity was performed from the inguinal crease to the calf. Compression and augmentation were utilized. FINDINGS: There is no sonographic evidence of deep venous thrombosis identified in the right or left lower extremity. The common femoral, superficial femoral, and popliteal veins are patent and normally compressible bilaterally. The greater saphenous vein and the profunda femoris vein at the junction with the common femoral vein are clear in both legs. The visualized calf veins are patent bilaterally. IMPRESSION: There is no sonographic evidence of deep venous thrombosis identified in the right or left lower extremity. ACT 112: Negative or not required by law. Electronically signed by: Davide Vines M.D. 01/08/2023 4:31 PM ECG Data Attestation: I personally reviewed and interpreted this ECG as follows: Rate (beats per minute): 68 Rhythm: + normal sinus ECG Intervals/blocks: + Normal QRS, + Normal NV and + Normal QT-c ECG ST segments: + Normal ST segments MDM Narrative 1245: The patient was evaluated in room C12. A complete history and physical exam was performed Cardiac monitoring: An order was placed for continuous cardiac monitoring. The monitor shows a rate of 90 with sinus rhythm interpreted by me Patient found to be hypotensive. Sepsis protocols initiated. 1430: Vital signs improved status post IV fluid bolus. Imaging shows no traumatic injuries. Labs show a white blood cell count of 3.46 hemoglobin 8.8 platelet count 62. Coagulation studies within normal limits. Patient's venous pH 7.43 venous PCO2 51 venous bicarb 34. AST is 120 ALT 50. Ammonia level is 154. Lactic acid within normal limits. Patient will be treated with lactulose in the emergency department and admitted to the [facility] hospitalist team. Dr. Stevens team notified. Impression & Plan Hepatic encephalopathy Discharge Plan Visit Data Chief Complaint: Hypotension Stated Complaint: EXTREMELY HYPOTENSIVE ED Provider: Qasim Pederson Discharge Problem: Hepatic encephalopathy Patient Disposition: Admitted As Inpatient Discharge Instructions Interventions: ED Discharge Assessment Last Done: 01/08/23 18:26 Forms Stand Alone Forms: My [facility] Prescriptions Prescriptions: No Action torsemide 20 mg tablet 60 mg PO BID quetiapine 50 mg tablet 50 mg PO HS Qty: 30 5RF levothyroxine 25 mcg tablet 25 mcg PO QAM Rx Instructions: take with 300mcg qam venlafaxine 37.5 mg capsule,extended release 24hr 37.5 mg PO QAM Rx Instructions: TAKE WITH 150MG Botox 200 unit recon soln 1 unit intradermal UD Rx Instructions: every 11 weeks omeprazole 40 mg capsule,delayed release(DR/EC) 40 mg PO BID gabapentin [Neurontin] 300 mg capsule 600 mg PO TID PRN (Reason: Pain) spironolactone [Aldactone] 50 mg tablet 100 mg PO BID venlafaxine [Effexor XR] 150 mg capsule,extended release 24hr 150 mg PO QAM Rx Instructions: TAKE WITH 37.5MG ropinirole 2 mg tablet 6 mg PO HS PRN (Reason: Restless Leg(S)) levothyroxine 150 mcg tablet 300 mcg PO QAM Rx Instructions: take with 25mcg qam Xifaxan 550 mg tablet 550 mg PO BID Linzess 290 mcg capsule 290 mcg PO QAM lactulose 10 gram/15 mL Solution 20 g PO DAILY Tradjenta 5 mg tablet 5 mg PO QAM metformin 500 mg tablet extended release 24hr 500 mg PO BID aspirin 81 mg Tablet,Delayed Release (Dr/Ec) 81 mg PO QAM Combivent Respimat 20-100 mcg/actuation Mist 1 puff INHALATION QID PRN (Reason: Wheezing) morphine [MS Contin] 30 mg Tablet Extended Release 30 mg PO TID MDD 3 tabs alprazolam [Xanax] 1 mg tablet 0.5 - 1 mg PO BID PRN (Reason: Anxiety) zolmitriptan [Zomig] 5 mg tablet 5 mg PO UD PRN (Reason: migraine headache) Rx Instructions: 5 mg PO PRN migraine, may repeat after 2 hours prn promethazine 25 mg tablet 25 mg PO Q6H PRN (Reason: Nausea) magnesium 200 mg tablet 500 mg PO QAM Nurtec ODT 75 mg tablet,disintegrating 75 mg PO UD Rx Instructions: 75 mg PO; every other day to prevent migraines. Do not take as needed famotidine 40 mg tablet 40 mg PO DAILY Rx Instructions: take this med daily before a meal oxycodone 15 mg Tablet 15 mg PO Q6H Rx Instructions: oxycodone IR potassium chloride 20 mEq tablet extended release 20 meq PO BIDM Rx Instructions: TAKE WITH 10MEQ potassium chloride 10 mEq capsule, extended release 10 meq PO BIDM Rx Instructions: TAKE WITH 20MEQ zolpidem 10 mg tablet 10 mg PO HS PRN (Reason: Insomnia) hydroxyzine HCl 25 mg tablet 25 mg PO HS PRN (Reason: Insomnia) tizanidine 4 mg tablet 4 mg PO Q6H PRN (Reason: Spasms) tramadol 50 mg Tablet 50 mg PO Q6H PRN (Reason: Pain) sucralfate 1 gram tablet 1 g PO BID cholecalciferol (vitamin D3) 125 mcg (5,000 unit) capsule 125 mcg PO DAILY valacyclovir 500 mg tablet 500 mg PO TID PRN (Reason: .FLARES) clobetasol 0.05 % solution 1 applic TOPICAL DAILY tretinoin 0.1 % Cream 1 applic TOPICAL HS [id number] 50-325-40 mg tablet 2 tab PO Q6H PRN (Reason: Migraine Headache) Referrals Referrals: Endy Stanley D.O. [Primary Care Provider] -
[2023-01-08] MEDS ORDERED: rOPINIRole HCL 2 MG TABLET PO PRN (19:11)
[2023-01-08] MEDS ORDERED: IPRATROPIUM BROMIDE/ALBUTEROL respimat INH INH PRN (19:11)
[2023-01-08] MEDS ORDERED: DEXTROSE 50% 50 ML SYRINGE IV PRN (19:11)
[2023-01-08] MEDS ORDERED: GLUCOSE 40% GEL 15 GM TUBE PO PRN (19:11)
[2023-01-08] MEDS ORDERED: GLUCAGON FOR INJ 1 MG VIAL SQ PRN (19:11)
[2023-01-08] MEDS ORDERED: CARBOHYDRATES FOR HYPOGLYCEMIA PO PRN (19:11)
[2023-01-08] MEDS ORDERED: GLUCOSE 10 TAB/TUBE PO PRN (19:11)
[2023-01-08] MEDS: OCTREOTIDE ACETATE 500 MCG in DEXTROSE 5% 100 ML IV SCH (19:28)
[2023-01-08] MEDS ORDERED: IPRATROPIUM BROMIDE HFA INHALER INH PRN (19:47)
[2023-01-08] MEDS ORDERED: ALBUTEROL HFA 8 GM INHALER INH PRN (19:47)
[2023-01-08 20:23] LABS: Hematocrit (blood only) 31.6 % (37.0-47.0); Hemoglobin 10.4 g/dl (12.0-16.0); Mean Corpuscular Hemoglobin 30.2 pg (25.0-34.0); Mean Corpuscular Hgb Conc 32.9 g/dL (32.0-36.0); Mean Corpuscular Volume 91.9 fL (80.0-100.0); Mean Platelet Volume 10.3 fL (9.4-12.4); Platelet Count 63 K/uL (130-400); RDW Coefficient of Variation 17.4 % (11.5-14.5); RDW Standard Deviation 58.4 fL (36.4-46.3); Red Blood Count 3.44 M/uL (4.20-5.40); White Blood Count 3.37 K/ul (4.8-10.8)
[2023-01-08] MEDS: LACTULOSE SYRUP 30 GM/45 ML UDP PO SCH ×3 (21:11→22:37)
[2023-01-08] MEDS: INSULIN ASPART PER UNIT CHARGE SC SCH (21:11)
[2023-01-08] MEDS: FAMOTIDINE 20 MG in SYRINGE 3 ML IV SCH (21:11)
[2023-01-08] MEDS: rifAXIMin 550 MG TABLET PO SCH (21:13)
[2023-01-08] MEDS: QUEtiapine FUMARATE 25 MG TABLET PO SCH (21:13)
[2023-01-08] MEDS: oxyCODONE HCL IR 5 MG TAB (IMMEDIATE RELEASE) PO PRN (21:23)
[2023-01-08] MEDS: MoRPHine SULFATE CR 15 MG TABCR PO SCH (21:25)
[2023-01-08] MEDS: ALPRAZolam 0.5 MG TABLET PO PRN (21:25)
[2023-01-08] MEDS ORDERED: GABAPENTIN 300 MG CAP PO PRN (22:09)
--- NOTE | 2023-01-08 23:29 | XRay Report ---
LEFT FOOT 3 VIEWS CLINICAL HISTORY: Fifth toe pain. FINDINGS: 3 views of the left foot are obtained. No prior studies are available for comparison at the time of dictation. The skeletal structures are osteopenic. No fracture is seen. There is mild osteoa rthritic change at the first metatarsophalangeal joint. The joint spaces of the foot otherwise mainta ined. Dorsal soft tissue edema is noted. IMPRESSION: Dorsal soft tissue swelling with no acute bony abnormality identified. Electronically signed by: Davide Vines M.D. 01/08/2023 11:27 PM
[2023-01-09 00:56] LABS: Hematocrit (blood only) 27.6 % (37.0-47.0); Hemoglobin 8.8 g/dl (12.0-16.0); Mean Corpuscular Hemoglobin 30.1 pg (25.0-34.0); Mean Corpuscular Hgb Conc 31.9 g/dL (32.0-36.0); Mean Corpuscular Volume 94.5 fL (80.0-100.0); Mean Platelet Volume 9.9 fL (9.4-12.4); Platelet Count 49 K/uL (130-400); RDW Coefficient of Variation 17.5 % (11.5-14.5); RDW Standard Deviation 60.7 fL (36.4-46.3); Red Blood Count 2.92 M/uL (4.20-5.40); White Blood Count 2.66 K/ul (4.8-10.8)
[2023-01-09 01:38] LABS: Appearance Urine Cloudy (Clear); Bacteria Urine Automated 1+ (Negative); Bilirubin Urine Negative (Negative); Blood Urine 3+ (Negative); Color Urine Orange; Epithelial Cell Urine Auto >30 /lpf (0-5); Glucose Urine UA Negative (Negative); Ketones Urine Negative (Negative); Leukocyte Esterase Urine Negative (Negative); Nitrite Urine Negative (Negative); Protein Urine Negative (Negative); Specific Gravity Urine 1.035 (1.000-1.030); Urobilinogen Urine Negative (Negative)
[2023-01-09] MEDS: PANTOprazole 40 MG in DEXTROSE 5% 100 ML IV SCH ×2 (04:30→09:33)
[2023-01-09] MEDS: OCTREOTIDE ACETATE 500 MCG in DEXTROSE 5% 100 ML IV SCH (05:00)
[2023-01-09] MEDS: LEVOTHYROXINE SODIUM 150 MCG TABLET PO SCH (06:39)
[2023-01-09] MEDS: LEVOTHYROXINE SODIUM 25 MCG TABLET PO SCH (06:39)
[2023-01-09] MEDS: Patient's HEIGHT &/or WEIGHT Needed SCH (07:23)
[2023-01-09] MEDS: INSULIN ASPART PER UNIT CHARGE SC SCH ×4 (07:51→20:32)
--- NOTE | 2023-01-09 07:54 | Hospitalist Progress Note ---
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 /hpf U Hyaline Cast (Auto) (0-5) /lpf U Epithel Cells (Auto) (0-5) /lpf Urine Bacteria (Auto) (Negative) Urine Yeast Stool Occult Bld Scrn (Negative) SARS-CoV-2, RNA, NAAT (NEGATIVE) Blood Type Antibody Screen 01/08/23 01/08/23 01/08/23 Range/Units 12:57 12:57 12:57 WBC (4.8-10.8) K/ul RBC (4.20-5.40) M/uL Hgb (12.0-16.0) g/dl POC Hgb (12.0-16.0) g/dl Hct (37.0-47.0) % POC Hct (37-47) % MCV (80.0-100.0) fL MCH (25.0-34.0) pg MCHC (32.0-36.0) g/dL RDW Std Deviation (36.4-46.3) fL RDW Coeff of Hen[place] (11.5-14.5) % Plt Count (130-400) K/uL MPV (9.4-12.4) fL Immature Gran % (Auto) % Neut % (Auto) % Lymph % (Auto) % [place] % (Auto) % Eos % (Auto) % Baso % (Auto) % Reticulocyte % (Auto) 3.7 H (0.5-2.0) % Neut # (Auto) (1.40-6.50) K/uL Lymph # (Auto) (1.2-3.4) K/uL [place] # (Auto) (0.11-0.59) K/uL Eos # (Auto) (0-0.50) K/uL Baso # (Auto) (0-0.2) K/uL Reticulocyte # 0.11 H (0.02-0.10) 10^6/uL Immature Gran # (Auto) (0.01-0.20) K/uL PT INR APTT PTT Ratio VBG pH (7.36-7.41) VBG pCO2 (38-50) mmHg VBG pO2 mmHg VBG HCO3 mmol/L VBG O2 Saturation % VBG Base Excess mEq/L POC Sodium (135-144) mmol/L Sodium (136-145) mmol/L POC Potassium (3.3-5.0) mmol/L Potassium (3.5-5.1) mmol/L POC Chloride (101-112) mmol/L Chloride (98-107) mmol/L Carbon Dioxide (21-32) mmol/L POC Total CO2 (24-31) mmol/L Anion Gap (3-11) POC Anion Gap (16-25) mmol/L POC BUN (7-18) mg/dl BUN (6-23) mg/dl Creatinine (0.6-1.2) mg/dl POC Creatinine (0.6-1.3) mg/dl Est Cr Clr Drug Dosing Est GFR ( Amer) ml/min Est GFR (Non-Af Amer) ml/min BUN/Creatinine Ratio (10-20) Glucose (70-99(Fasting)) mg/dl POC Glucose (70-99) mg/dl POC Glucose (other) (70-99) mg/dl Estimat Average Glucose mg/dl Hemoglobin A1c (4.5-5.6) % Lactate (0.4-2.0) mmol/L Calcium (8.6-10.3) mg/dl POC Ioniz Calcium Carol (1.12-1.32) mmol/l Magnesium (1.7-2.4) mg/dl Iron (35-150) mcg/dl TIBC (250-450) mcg/dl Unsaturated IBC (155-355) mcg/dl Transferrin % Sat (15-50) % Ferritin (8-388) ng/ml Total Bilirubin (0.2-1.0) mg/dl Direct Bilirubin (0-0.2) mg/dl AST (13-39) U/L ALT (7-52) U/L Alkaline Phosphatase (34-104) U/L Ammonia 154.0 H (18-72) umol/L Troponin I High Sens (0-14) pg/ml Total Protein (6.0-8.3) gm/dl Albumin (3.4-5.0) gm/dl Globulin (2.5-4.0) gm/dl Albumin/Globulin Ratio (0.9-2) Vitamin B12 (180-914) pg/ml Folate (>5.38) ng/ml Procalcitonin 0.12 (0-0.5) ng/ml TSH (0.300-4.500) uIu/ml Free T4 (0.61-1.60) ng/dl Urine Color Urine Appearance (Clear) Urine pH (4.5-7.5) Ur Specific [place] (1.000-1.030) Urine Protein (Negative) Urine Glucose (UA) (Negative) Urine Ketones (Negative) Urine Blood (Negative) Urine Nitrite (Negative) Urine Bilirubin (Negative) Urine Urobilinogen (Negative) Ur Leukocyte Esterase (Negative) Urine WBC (Auto) (0-5) /hpf Urine RBC (Auto) (0-4) /hpf U Hyaline Cast (Auto) (0-5) /lpf U Epithel Cells (Auto) (0-5) /lpf Urine Bacteria (Auto) (Negative) Urine Yeast Stool Occult Bld Scrn (Negative) SARS-CoV-2, RNA, NAAT (NEGATIVE) Blood Type Antibody Screen 01/08/23 01/08/23 01/08/23 Range/Units 12:57 12:57 12:57 WBC (4.8-10.8) K/ul RBC (4.20-5.40) M/uL Hgb (12.0-16.0) g/dl POC Hgb (12.0-16.0) g/dl Hct (37.0-47.0) % POC Hct (37-47) % MCV (80.0-100.0) fL MCH (25.0-34.0) pg MCHC (32.0-36.0) g/dL RDW Std Deviation (36.4-46.3) fL RDW Coeff of Henna (11.5-14.5) % Plt Count (130-400) K/uL MPV (9.4-12.4) fL Immature Gran % (Auto) % Neut % (Auto) % Lymph % (Auto) % [place] % (Auto) % Eos % (Auto) % Baso % (Auto) % Reticulocyte % (Auto) (0.5-2.0) % Neut # (Auto) (1.40-6.50) K/uL Lymph # (Auto) (1.2-3.4) K/uL [place] # (Auto) (0.11-0.59) K/uL Eos # (Auto) (0-0.50) K/uL Baso # (Auto) (0-0.2) K/uL Reticulocyte # (0.02-0.10) 10^6/uL Immature Gran # (Auto) (0.01-0.20) K/uL PT Cancelled INR Cancelled APTT Cancelled PTT Ratio Cancelled VBG pH (7.36-7.41) VBG pCO2 (38-50) mmHg VBG pO2 mmHg VBG HCO3 mmol/L VBG O2 Saturation % VBG Base Excess mEq/L POC Sodium (135-144) mmol/L Sodium 138 (136-145) mmol/L POC Potassium (3.3-5.0) mmol/L Potassium 4.5 (3.5-5.1) mmol/L POC Chloride (101-112) mmol/L Chloride 101 (98-107) mmol/L Carbon Dioxide 34 H (21-32) mmol/L POC Total CO2 (24-31) mmol/L Anion Gap 3 (3-11) POC Anion Gap (16-25) mmol/L POC BUN (7-18) mg/dl BUN 24 H (6-23) mg/dl Creatinine 1.22 H (0.6-1.2) mg/dl POC Creatinine (0.6-1.3) mg/dl Est Cr Clr Drug Dosing Not Reportable Est GFR ( Amer) 63.3 ml/min Est GFR (Non-Af Amer) 54.6 ml/min BUN/Creatinine Ratio 19.7 (10-20) Glucose 108 H (70-99(Fasting)) mg/dl POC Glucose (70-99) mg/dl POC Glucose (other) (70-99) mg/dl Estimat Average Glucose mg/dl Hemoglobin A1c (4.5-5.6) % Lactate 1.7 (0.4-2.0) mmol/L Calcium 8.4 L (8.6-10.3) mg/dl POC Ioniz Calcium Carol (1.12-1.32) mmol/l Magnesium 2.1 (1.7-2.4) mg/dl Iron 48 (35-150) mcg/dl TIBC 231 L (250-450) mcg/dl Unsaturated IBC 183 (155-355) mcg/dl Transferrin % Sat 21 (15-50) % Ferritin 46.2 (8-388) ng/ml Total Bilirubin 0.9 (0.2-1.0) mg/dl Direct Bilirubin 0.2 (0-0.2) mg/dl AST 120 H (13-39) U/L ALT 50 (7-52) U/L Alkaline Phosphatase 81 (34-104) U/L Ammonia (18-72) umol/L Troponin I High Sens 5.4 (0-14) pg/ml Total Protein 5.0 L (6.0-8.3) gm/dl Albumin 2.5 L (3.4-5.0) gm/dl Globulin (2.5-4.0) gm/dl Albumin/Globulin Ratio (0.9-2) Vitamin B12 (180-914) pg/ml Folate (>5.38) ng/ml Procalcitonin (0-0.5) ng/ml TSH (0.300-4.500) uIu/ml Free T4 (0.61-1.60) ng/dl Urine Color Urine Appearance (Clear) Urine pH (4.5-7.5) Ur Specific [place] (1.000-1.030) Urine Protein (Negative) Urine Glucose (UA) (Negative) Urine Ketones (Negative) Urine Blood (Negative) Urine Nitrite (Negative) Urine Bilirubin (Negative) Urine Urobilinogen (Negative) Ur Leukocyte Esterase (Negative) Urine WBC (Auto) (0-5) /hpf Urine RBC (Auto) (0-4) /hpf U Hyaline Cast (Auto) (0-5) /lpf U Epithel Cells (Auto) (0-5) /lpf Urine Bacteria (Auto) (Negative) Urine Yeast Stool Occult Bld Scrn (Negative) SARS-CoV-2, RNA, NAAT (NEGATIVE) Blood Type Antibody Screen 01/08/23 Range/Units 12:57 WBC 3.46 L (4.8-10.8) K/ul RBC 2.89 L (4.20-5.40) M/uL Hgb 8.8 L (12.0-16.0) g/dl POC Hgb (12.0-16.0) g/dl Hct 26.7 L (37.0-47.0) % POC Hct (37-47) % MCV 92.4 (80.0-100.0) fL MCH 30.4 (25.0-34.0) pg MCHC 33.0 (32.0-36.0) g/dL RDW Std Deviation 58.7 H (36.4-46.3) fL RDW Coeff of Henna 17.2 H (11.5-14.5) % Plt Count 62 L (130-400) K/uL MPV 10.6 (9.4-12.4) fL Immature Gran % (Auto) 0.3 % Neut % (Auto) 59.8 % Lymph % (Auto) 24.0 % [place] % (Auto) 11.0 % Eos % (Auto) 4.3 % Baso % (Auto) 0.6 % Reticulocyte % (Auto) (0.5-2.0) % Neut # (Auto) 2.07 (1.40-6.50) K/uL Lymph # (Auto) 0.83 L (1.2-3.4) K/uL [place] # (Auto) 0.38 (0.11-0.59) K/uL Eos # (Auto) 0.15 (0-0.50) K/uL Baso # (Auto) 0.02 (0-0.2) K/uL Reticulocyte # (0.02-0.10) 10^6/uL Immature Gran # (Auto) 0.01 (0.01-0.20) K/uL PT INR APTT PTT Ratio VBG pH (7.36-7.41) VBG pCO2 (38-50) mmHg VBG pO2 mmHg VBG HCO3 mmol/L VBG O2 Saturation % VBG Base Excess mEq/L POC Sodium (135-144) mmol/L Sodium (136-145) mmol/L POC Potassium (3.3-5.0) mmol/L Potassium (3.5-5.1) mmol/L POC Chloride (101-112) mmol/L Chloride (98-107) mmol/L Carbon Dioxide (21-32) mmol/L POC Total CO2 (24-31) mmol/L Anion Gap (3-11) POC Anion Gap (16-25) mmol/L POC BUN (7-18) mg/dl BUN (6-23) mg/dl Creatinine (0.6-1.2) mg/dl POC Creatinine (0.6-1.3) mg/dl Est Cr Clr Drug Dosing Est GFR ( Amer) ml/min Est GFR (Non-Af Amer) ml/min BUN/Creatinine Ratio (10-20) Glucose (70-99(Fasting)) mg/dl POC Glucose (70-99) mg/dl POC Glucose (other) (70-99) mg/dl Estimat Average Glucose mg/dl Hemoglobin A1c (4.5-5.6) % Lactate (0.4-2.0) mmol/L Calcium (8.6-10.3) mg/dl POC Ioniz Calcium Carol (1.12-1.32) mmol/l Magnesium (1.7-2.4) mg/dl Iron (35-150) mcg/dl TIBC (250-450) mcg/dl Unsaturated IBC (155-355) mcg/dl Transferrin % Sat (15-50) % Ferritin (8-388) ng/ml Total Bilirubin (0.2-1.0) mg/dl Direct Bilirubin (0-0.2) mg/dl AST (13-39) U/L ALT (7-52) U/L Alkaline Phosphatase (34-104) U/L Ammonia (18-72) umol/L Troponin I High Sens (0-14) pg/ml Total Protein (6.0-8.3) gm/dl Albumin (3.4-5.0) gm/dl Globulin (2.5-4.0) gm/dl Albumin/Globulin Ratio (0.9-2) Vitamin B12 (180-914) pg/ml Folate (>5.38) ng/ml Procalcitonin (0-0.5) ng/ml TSH (0.300-4.500) uIu/ml Free T4 (0.61-1.60) ng/dl Urine Color Urine Appearance (Clear) Urine pH (4.5-7.5) Ur Specific [place] (1.000-1.030) Urine Protein (Negative) Urine Glucose (UA) (Negative) Urine Ketones (Negative) Urine Blood (Negative) Urine Nitrite (Negative) Urine Bilirubin (Negative) Urine Urobilinogen (Negative) Ur Leukocyte Esterase (Negative) Urine WBC (Auto) (0-5) /hpf Urine RBC (Auto) (0-4) /hpf U Hyaline Cast (Auto) (0-5) /lpf U Epithel Cells (Auto) (0-5) /lpf Urine Bacteria (Auto) (Negative) Urine Yeast Stool Occult Bld Scrn (Negative) SARS-CoV-2, RNA, NAAT (NEGATIVE) Blood Type Antibody Screen Diagnostic Findings Chest X-Ray 01/08/23 12:46 SINGLE VIEW CHEST CLINICAL HISTORY: Sepsis. FINDINGS: An AP, portable, upright chest radiograph is compared to chest x-ray and chest CT dated 03/11/2019. The cardiomediastinal silhouette is unremarkable. There is mild elevation of the right hemidiaphragm. The lungs and pleural spaces are clear. No pneumothorax is seen. The bony thorax is grossly intact. Fusion hardware is noted in the lower cervical spine. Calcific tendinopathy is noted in the right shoulder. IMPRESSION: No active disease in the chest. ACT 112: Negative or not required by law. Electronically signed by: Davide Vines M.D. 01/08/2023 1:20 PM Abdomen/Pelvis CT 01/08/23 12:55 CT abd pelvis IV con only CLINICAL HISTORY: fall TECHNIQUE: Helical axial images of the abdomen and pelvis were obtained and displayed. Automated dose lowering techniques and/or adjustment according to patient size were utilized for this exam. This exam was performed with intravenous contrast. COMPARISON: Comparison is made to CT abdomen pelvis 05/29/2020 FINDINGS: Lower chest: There is a 9 mm nodule in the left lower lobe (series 7 image 26) which was not seen on prior exam. Liver: Nodular contour of the liver is seen compatible with cirrhosis. Gallbladder and biliary tree: Patient is status post cholecystectomy. Physiologic prominence of the biliary ducts is noted. Pancreas: Unremarkable, no focal lesions. Spleen: Splenomegaly is noted, the spleen measures 21 cm in craniocaudal dimension. Adrenals: Unremarkable. Kidneys and ureters: Unremarkable. Bladder: Unremarkable. Reproductive organs: Patient is status post hysterectomy. Bowel: The appendix is normal. Postsurgical changes are seen about the stomach. Lymph nodes Retroperitoneal: Subcentimeter lymph nodes are noted. Pelvic: Unremarkable. Mesenteric: Subcentimeter lymph nodes are noted. Peritoneum: Diffuse fat stranding and small ascites are noted. Vessels: Atherosclerotic calcifications are seen. Numerous varices are seen. There is recanalization of the paraumbilical vein. Abdominal wall: Body wall edema is seen. Bones: Degenerative changes in the visualized spine. A few bone islands are seen. No evidence of acute fracture. IMPRESSION: 1. No acute fractures are seen in this patient status post fall. 2. Cirrhosis and portal hypertension findings noted. 3. Nonspecific ascites and mesenteric lymph nodes. 4. Interval hysterectomy. 5. Additional findings as above. ACT 112: Negative or not required by law. Electronically signed by: Mohit Perez M.D. 01/08/2023 2:[address] 01/08/23 12:55 CT cervical spine wo con CLINICAL HISTORY: 42 years-old Female with fall. Acute neck pain status post fall COMPARISON: Head CT of same day, CTA neck 09/19/2022 TECHNIQUE: Multiple axial CT images of the cervical spine were obtained without contrast. A dose lowering technique was utilized adhering to the principles of ALARA. FINDINGS: No acute fracture or subluxation identified. Anterior plate and screw with posterior henri and screw fusion at C5-C7. No evidence of hardware complication. Multilevel degenerative changes. The cervical soft tissues appear unremarkable. The visualized lung apices appear clear. IMPRESSION: No acute fracture or subluxation. ACT 112: Negative or not required by law. The above report was generated using voice recognition software. It may contain grammatical, syntax or spelling errors. Electronically signed by: Lorenzo Ocampo M.D. 01/08/2023 2:[address] 01/08/23 12:55 CT SCAN OF THE BRAIN WITHOUT IV CONTRAST CLINICAL HISTORY: Fall. COMPARISON STUDY: CT of the brain dated 09/19/2022. TECHNIQUE: Unenhanced axial CT scan of the brain is performed from the vertex to the skull base. A dose lowering technique was utilized adhering to the principles of ALARA. CT DOSE: 2301.57 mGy.cm FINDINGS: Brain parenchyma: The brain parenchyma is normal in appearance. There is no hemorrhage, mass effect, or evidence of acute territorial ischemia by CT criteria. Hyatt-white matter differentiation is preserved. No extra-axial fluid collection is seen. Ventricles, sulci, cisterns: Normal in configuration. Intracranial vasculature: The visualized intracranial vasculature at the skull base is normal in appearance. Calvarium: Unremarkable. Sinuses and mastoids: The visualized paranasal sinuses are clear. The mastoid air cells are well pneumatized. Orbits: The bony orbits are grossly intact. IMPRESSION: No acute intracranial abnormality. ACT 112: Negative or not required by law. Electronically signed by: Davide Vines M.D. 01/08/2023 1:58 PM Pelvis X-Ray 01/08/23 12:55 SINGLE VIEW PELVIS CLINICAL HISTORY: Fall. FINDINGS: An AP supine view of the pelvis is correlated with pelvic CT performed the same day 01/08/2023. The skeletal structures are well mineralized. There is no radiographic evidence of acute fracture involving the hips or bony pelvis. The joint spaces of the hips are maintained. The sacroiliac joints are normal. Excreted IV contrast fills the bladder. The overlying soft tissues are within normal limits. IMPRESSION: No acute bony abnormality is identified. Electronically signed by: Davide Vines M.D. 01/08/2023 3:26 PM Foot X-Ray 01/08/23 15:32 LEFT FOOT 3 VIEWS CLINICAL HISTORY: Fifth toe pain. FINDINGS: 3 views of the left foot are obtained. No prior studies are available for comparison at the time of dictation. The skeletal structures are osteopenic. No fracture is seen. There is mild osteoarthritic change at the first metatarsophalangeal joint. The joint spaces of the foot otherwise maintained. Dorsal soft tissue edema is noted. IMPRESSION: Dorsal soft tissue swelling with no acute bony abnormality identified. ADDENDUM: Question mild cortical irregularity at the base of the fifth proximal phalanx. This may be artifactual. If there is clinical concern for fracture then dedicated views of the fifth toe should be obtained. Electronically signed by: Davide Vines M.D. 01/08/2023 11:27 PM Venous Doppler Study 01/08/23 15:33 ULTRASOUND BILATERAL LOWER EXTREMITY VENOUS CLINICAL HISTORY: Bilateral leg pain and swelling. COMPARISON STUDY: No priors. TECHNIQUE: Real-time, grayscale, and color Doppler sonography of the deep veins of the right and left lower extremity was performed from the inguinal crease to the calf. Compression and augmentation were utilized. FINDINGS: There is no sonographic evidence of deep venous thrombosis identified in the right or left lower extremity. The common femoral, superficial femoral, and popliteal veins are patent and normally compressible bilaterally. The greater saphenous vein and the profunda femoris vein at the junction with the common femoral vein are clear in both legs. The visualized calf veins are patent bilaterally. IMPRESSION: There is no sonographic evidence of deep venous thrombosis identified in the right or left lower extremity. ACT 112: Negative or not required by law. Electronically signed by: Davide Vines M.D. 01/08/2023 4:31 PM PG Care Time/CCT Total # of Minutes Spent Total Time Spent with Patient: Total time spent is greater than 50% in coordination of care (as documented) at patient's floor/unit and/or counseling patient: Coding Level of Care Code 24247 SUB INP/OBS CARE 3/50MIN Diagnoses Acute hypotension I95.9 Hepatic encephalopathy K72.90 Polypharmacy Z79.899 Low back pain M54.50 RUBEN (iron deficiency anemia) D50.9 Acute GI bleeding K92.2 Bilateral lower extremity edema R60.0 Constipation K59.00 Anxiety F41.9 Neuropathic pain M79.2 Hypothyroidism E03.9 Ascites R18.8 History of CVA (cerebrovascular accident) Z86.73 Diabetes mellitus E11.9 RLS (restless legs syndrome) G25.81 Transaminitis R74.0 Cirrhosis K74.60 Pancytopenia D61.818
[2023-01-09 08:05] LABS: Basophils # (auto) 0.02 K/uL (0-0.2); Basophils % (auto) 0.9 %; Eosinophils # (auto) 0.14 K/uL (0-0.50); Eosinophils % (auto) 6.4 %; Hematocrit (blood only) 29.3 % (37.0-47.0); Hemoglobin 9.4 g/dl (12.0-16.0); Immature Granulocytes # (auto) 0.01 K/uL (0.01-0.20); Immature Granulocytes % (auto) 0.5 %; Lymphocytes # (auto) 0.68 K/uL (1.2-3.4); Lymphocytes % (auto) 30.9 %; Mean Corpuscular Hemoglobin 30.1 pg (25.0-34.0); Mean Corpuscular Hgb Conc 32.1 g/dL (32.0-36.0); Mean Corpuscular Volume 93.9 fL (80.0-100.0); Monocytes # (auto) 0.19 K/uL (0.11-0.59); Monocytes % (auto) 8.6 %; Neutrophils # (auto) 1.16 K/uL (1.40-6.50); Neutrophils % (auto) 52.7 %; Platelet Count 52 K/uL (130-400); RDW Coefficient of Variation 17.5 % (11.5-14.5); RDW Standard Deviation 59.7 fL (36.4-46.3); Red Blood Count 3.12 M/uL (4.20-5.40)
[2023-01-09 08:20] LABS: Albumin Level 2.7 gm/dl (3.4-5.0); BUN Creatinine Ratio 20.2 (10-20); Bilirubin,Total 1.4 mg/dl (0.2-1.0); Calcium 8.9 mg/dl (8.6-10.3); Creatinine Clr Calc Pharmacy 81.6 ml/min; Est GFR (African American) 76.7 ml/min; Est GFR (Non-African American) 66.2 ml/min; Globulin 2.7 gm/dl (2.5-4.0); Potassium 4.1 mmol/L (3.5-5.1); Total Protein 5.4 gm/dl (6.0-8.3)
[2023-01-09 08:33] LABS: Thyroid Stimulating Hormone 0.114 uIu/ml (0.300-4.500)
[2023-01-09 08:34] LABS: INR 1.3 (0.9-1.1)
[2023-01-09 09:11] LABS: T4 Free Thyroxine 1.35 ng/dl (0.61-1.60)
[2023-01-09] MEDS: MoRPHine SULFATE CR 15 MG TABCR PO SCH ×3 (09:13→20:25)
[2023-01-09] MEDS: LACTULOSE SYRUP 30 GM/45 ML UDP PO SCH ×3 (09:13→17:47)
[2023-01-09] MEDS: FAMOTIDINE 20 MG in SYRINGE 3 ML IV SCH ×2 (09:13→20:25)
[2023-01-09] MEDS: CHOLECALCIFEROL 5,000 UNITS 125 MCG TAB PO SCH (09:13)
[2023-01-09] MEDS: VENLAFAXINE HCL XR 37.5 MG CAPXR PO SCH (09:14)
[2023-01-09] MEDS: rifAXIMin 550 MG TABLET PO SCH ×2 (09:14→20:25)
[2023-01-09] MEDS: LINACLOTIDE 145 MCG CAPSULE PO SCH (09:14)
[2023-01-09] MEDS: VENLAFAXINE HCL XR 150 MG CAPXR PO SCH (09:14)
[2023-01-09] MEDS: MAGNESIUM OXIDE 400 MG TAB PO SCH (09:14)
[2023-01-09 10:18] LABS: Estimated Average Glucose 108 mg/dl; Hemoglobin A1C 5.4 % (4.5-5.6)
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
[2023-01-09] MEDS: PANTOprazole 40 MG in SYRINGE 0 ML IV SCH ×2 (13:20→20:26)
[2023-01-09] MEDS: SUCRALFATE 1 GM/10 ML UDC PO SCH ×3 (13:20→20:26)
[2023-01-09] MEDS: oxyCODONE HCL IR 5 MG TAB (IMMEDIATE RELEASE) PO PRN ×2 (14:35→23:11)
[2023-01-09] MEDS ORDERED: cefTRIAXone SODIUM 2,000 MG in DEXTROSE 5% 50 ML IV SCH (16:00)
--- NOTE | 2023-01-09 16:06 | XRay Report ---
XR toe(s) LT min 2V CLINICAL HISTORY: 5th toe pain, eval fx COMPARISON: Left foot radiographs January 08, 2023. FINDINGS: No acute fracture within the left fifth toe is noted. The possible fracture within the bas e of the left fifth proximal phalanx on radiographs of January 08, 2023 was artifactual. There is osteoph ytosis at the left first PIP joint. There is no soft tissue swelling is present. IMPRESSION: 1. No acute fracture or dislocation within the left fifth toe. 2. Left fifth toe soft tissue swelling. ACT 112: Negative or not required by law. Electronically signed by: Guero Garcia M.D. 01/09/2023 4:05 PM
[2023-01-09] MEDS: TORSEMIDE 10 MG TAB PO SCH (16:46)
[2023-01-09] MEDS: PROMETHAZINE HCL 25 MG TAB PO PRN (17:51)
[2023-01-09] MEDS: QUEtiapine FUMARATE 25 MG TABLET PO SCH (20:26)
[2023-01-09] MEDS: SPIRONOLACTONE 25 MG TAB PO SCH (20:27)
[2023-01-09] MEDS: BENZOCAINE 20% (ORAJEL) 11.9 GM TUBE MT PRN (23:11)
[2023-01-09] MEDS: ALPRAZolam 0.5 MG TABLET PO PRN (23:11)
[2023-01-10 04:50] LABS: Hematocrit (blood only) 31.2 % (37.0-47.0); Hemoglobin 10.2 g/dl (12.0-16.0); Mean Corpuscular Hemoglobin 30.7 pg (25.0-34.0); Mean Corpuscular Hgb Conc 32.7 g/dL (32.0-36.0); Platelet Count 70 K/uL (130-400); RDW Coefficient of Variation 17.3 % (11.5-14.5); RDW Standard Deviation 59.1 fL (36.4-46.3); Red Blood Count 3.32 M/uL (4.20-5.40); White Blood Count 4.04 K/ul (4.8-10.8)
[2023-01-10 05:05] LABS: Albumin Globulin Ratio 0.9 (0.9-2); Albumin Level 2.7 gm/dl (3.4-5.0); BUN Creatinine Ratio 18.8 (10-20); Calcium 8.3 mg/dl (8.6-10.3); Creatinine Clr Calc Pharmacy 99.8 ml/min; Est GFR (Non-African American) 84.5 ml/min; Globulin 2.9 gm/dl (2.5-4.0); Magnesium 1.9 mg/dl (1.7-2.4); Potassium 3.8 mmol/L (3.5-5.1); Total Protein 5.6 gm/dl (6.0-8.3)
[2023-01-10] MEDS: LEVOTHYROXINE SODIUM 150 MCG TABLET PO SCH (05:23)
[2023-01-10] MEDS: LEVOTHYROXINE SODIUM 25 MCG TABLET PO SCH (05:23)
[2023-01-10 05:36] LABS: INR 1.3 (0.9-1.1); Prothrombin Time 14.2 Seconds (9.0-12.0)
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
[2023-01-10] MEDS: PROMETHAZINE HCL 25 MG TAB PO PRN (09:05)
[2023-01-10] MEDS: INSULIN ASPART PER UNIT CHARGE SC SCH ×2 (09:12→12:40)
[2023-01-10] MEDS: BENZOCAINE 20% (ORAJEL) 11.9 GM TUBE MT PRN (09:18)
[2023-01-10] MEDS: SUCRALFATE 1 GM/10 ML UDC PO SCH ×2 (09:19→12:41)
[2023-01-10] MEDS: FAMOTIDINE 20 MG in SYRINGE 3 ML IV SCH (09:19)
[2023-01-10] MEDS: LACTULOSE SYRUP 30 GM/45 ML UDP PO SCH ×2 (09:19→14:56)
[2023-01-10] MEDS: rifAXIMin 550 MG TABLET PO SCH (09:20)
[2023-01-10] MEDS: VENLAFAXINE HCL XR 150 MG CAPXR PO SCH (09:20)
[2023-01-10] MEDS: PANTOprazole 40 MG in SYRINGE 0 ML IV SCH (09:20)
[2023-01-10] MEDS: CHOLECALCIFEROL 5,000 UNITS 125 MCG TAB PO SCH (09:20)
[2023-01-10] MEDS: LINACLOTIDE 145 MCG CAPSULE PO SCH (09:20)
[2023-01-10] MEDS: VENLAFAXINE HCL XR 37.5 MG CAPXR PO SCH (09:21)
[2023-01-10] MEDS: MAGNESIUM OXIDE 400 MG TAB PO SCH (09:21)
[2023-01-10] MEDS: TORSEMIDE 10 MG TAB PO SCH ×2 (09:21→14:56)
[2023-01-10] MEDS: SPIRONOLACTONE 25 MG TAB PO SCH (09:21)
[2023-01-10] MEDS: MoRPHine SULFATE CR 15 MG TABCR PO SCH ×2 (09:22→14:50)
[2023-01-10] MEDS ORDERED: BENZONATATE 100 MG CAPSULE PO ONE (11:00)
--- NOTE | 2023-01-10 11:38 | Discharge Summary ---
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 The patient reports decline over the last week but minimizes her problems per her . Her is concerned regarding significant decline over the last month where she has been more confused, moving around less and complaining of back pain. No back pain from before a month ago. No radiation down her legs, worse on standing up and having to flex at her hips to reduce the pain. No change in bowel/urine incontinence but also only having one bowel movement per week. Regarding her anemia she reports no abdominal pain, melena, hematochezia, nausea or vomiting. She reports last EGD in December 11 by [facility] gastroenterology as part of routine monitoring which did show some small varices and persistent gastric ulcer. She has been having regular iron infusion with her motor vehicle lecturer for ongoing iron deficiency anemia. Regarding her fluid status, unknown regarding weight gain, she denies worsening shortness of breath. Leg swelling has been getting progressively worse over the last month and her PCP has been increasing her diuretics. Recently increased torsemide to 60mg PO BID in addition to her spironolactone. She is urinating frequently. Despite the increase in diuretics this has not helped her leg swelling. Never had paracentesis previously. Regarding her weakness she reports this is generalized but she has residual deficit on the left side due to a previous stroke. No upper respiratory or urinary infective symptoms. Her at bedside reports she appears much more cognitively alert after IV fluids given in the ER. Admission Exam Per Admitting Provider Constitutional: well developed; + not well nourished and no acute distress Eyes: PERRL, conjunctivae normal, anicteric sclerae ENMT: Mouth: + dry oral mucous membranes Neck: trachea midline, no thyromegaly Respiratory: normal respiratory effort, lungs clear to auscultation Cardiovascular: Rate/Rhythm: regular rate and regular rhythm Heart Sounds: no murmur Extremities: normal capillary refill, + calf tenderness (b/l) and + pedal edema (2+ b/l equal) Gastrointestinal (Abdomen): normal bowel sounds, soft, nontender, no hepatosplenomegaly Musculoskeletal: no cyanosis or clubbing, extremities motor strength 5/5 Skin: no rashes, warm and dry Neurologic: moves all extremities, + focal motor deficit (mild LLE weakness compared to RLE) and awake; not confused Speech / Cognition: normal speech Motor/Sensory: no tremor, no pronator drift and no asterixis Cranial Nerves: PERRL, EOM intact bilaterally, normal facial strength, able to rotate head bilaterally, able to elevate shoulders bilaterally, no nystagmus and symmetric palate elevation Coordination: normal [id number] test Psychiatric: A+Ox3, euthymic affect Genitourinary: no CVA tenderness Principal Diagnosis Hepatic Encephalopathy, Hyperammonemia , Hypotension Discharge Exam General: WD chronically ill appearing female , looks older than stated age, sitting up in recliner, NAD, wanting to go home to watch her son go to [facility] tomorrow HEENT: head normocephalic, mmm, trachea midline, prior scar to thyroid s/p thyroidectomy Resp: CTA, no w/c, slightly diminished in the bases, on room air CV: regular rhythm, rate (90s), no significant m/r/g, 1-2+ b/l LE edema, calves nontender GI: +BS, softer, less distension, nontender : no granados MSK/Neuro: moves all extremities, follows commands, no asterixis, slight LLE weakness compared to the right, walking in room Psych: alert to person/place/time, wanting to go home Discharge Data Allergies Allergy/AdvReac Type Severity Reaction Status Date / Time codeine Allergy Unknown Hives, Verified 01/08/23 16:54 [From Tylenol-Codeine #3] skin redness (Tyenol #3) Consultations 01/08/23 14:28 ED Decision to Admit Stat 01/08/23 19:11 Consult Gastroenterology Routine Ordered Studies Chest X-Ray 01/08/23 12:46 SINGLE VIEW CHEST CLINICAL HISTORY: Sepsis. FINDINGS: An AP, portable, upright chest radiograph is compared to chest x-ray and chest CT dated 03/11/2019. The cardiomediastinal silhouette is unremarkable. There is mild elevation of the right hemidiaphragm. The lungs and pleural spaces are clear. No pneumothorax is seen. The bony thorax is grossly intact. Fusion hardware is noted in the lower cervical spine. Calcific tendinopathy is noted in the right shoulder. IMPRESSION: No active disease in the chest. ACT 112: Negative or not required by law. Electronically signed by: Davide Vines M.D. 01/08/2023 1:20 PM Abdomen/Pelvis CT 01/08/23 12:55 CT abd pelvis IV con only CLINICAL HISTORY: fall TECHNIQUE: Helical axial images of the abdomen and pelvis were obtained and displayed. Automated dose lowering techniques and/or adjustment according to patient size were utilized for this exam. This exam was performed with intravenous contrast. COMPARISON: Comparison is made to CT abdomen pelvis 05/29/2020 FINDINGS: Lower chest: There is a 9 mm nodule in the left lower lobe (series 7 image 26) which was not seen on prior exam. Liver: Nodular contour of the liver is seen compatible with cirrhosis. Gallbladder and biliary tree: Patient is status post cholecystectomy. Physiologic prominence of the biliary ducts is noted. Pancreas: Unremarkable, no focal lesions. Spleen: Splenomegaly is noted, the spleen measures 21 cm in craniocaudal dimension. Adrenals: Unremarkable. Kidneys and ureters: Unremarkable. Bladder: Unremarkable. Reproductive organs: Patient is status post hysterectomy. Bowel: The appendix is normal. Postsurgical changes are seen about the stomach. Lymph nodes Retroperitoneal: Subcentimeter lymph nodes are noted. Pelvic: Unremarkable. Mesenteric: Subcentimeter lymph nodes are noted. Peritoneum: Diffuse fat stranding and small ascites are noted. Vessels: Atherosclerotic calcifications are seen. Numerous varices are seen. There is recanalization of the paraumbilical vein. Abdominal wall: Body wall edema is seen. Bones: Degenerative changes in the visualized spine. A few bone islands are seen. No evidence of acute fracture. IMPRESSION: 1. No acute fractures are seen in this patient status post fall. 2. Cirrhosis and portal hypertension findings noted. 3. Nonspecific ascites and mesenteric lymph nodes. 4. Interval hysterectomy. 5. Additional findings as above. ACT 112: Negative or not required by law. Electronically signed by: Mohit Perez M.D. 01/08/2023 2:[address] 01/08/23 12:55 CT cervical spine wo con CLINICAL HISTORY: 42 years-old Female with fall. Acute neck pain status post fall COMPARISON: Head CT of same day, CTA neck 09/19/2022 TECHNIQUE: Multiple axial CT images of the cervical spine were obtained without contrast. A dose lowering technique was utilized adhering to the principles of ALARA. FINDINGS: No acute fracture or subluxation identified. Anterior plate and screw with posterior henri and screw fusion at C5-C7. No evidence of hardware complication. Multilevel degenerative changes. The cervical soft tissues appear unremarkable. The visualized lung apices appear clear. IMPRESSION: No acute fracture or subluxation. ACT 112: Negative or not required by law. The above report was generated using voice recognition software. It may contain grammatical, syntax or spelling errors. Electronically signed by: Lorenzo Ocampo M.D. 01/08/2023 2:[address] 01/08/23 12:55 CT SCAN OF THE BRAIN WITHOUT IV CONTRAST CLINICAL HISTORY: Fall. COMPARISON STUDY: CT of the brain dated 09/19/2022. TECHNIQUE: Unenhanced axial CT scan of the brain is performed from the vertex to the skull base. A dose lowering technique was utilized adhering to the principles of ALARA. CT DOSE: 2301.57 mGy.cm FINDINGS: Brain parenchyma: The brain parenchyma is normal in appearance. There is no hemorrhage, mass effect, or evidence of acute territorial ischemia by CT criteria. Hyatt-white matter differentiation is preserved. No extra-axial fluid collection is seen. Ventricles, sulci, cisterns: Normal in configuration. Intracranial vasculature: The visualized intracranial vasculature at the skull base is normal in appearance. Calvarium: Unremarkable. Sinuses and mastoids: The visualized paranasal sinuses are clear. The mastoid air cells are well pneumatized. Orbits: The bony orbits are grossly intact. IMPRESSION: No acute intracranial abnormality. ACT 112: Negative or not required by law. Electronically signed by: Davide Vines M.D. 01/08/2023 1:58 PM Pelvis X-Ray 01/08/23 12:55 SINGLE VIEW PELVIS CLINICAL HISTORY: Fall. FINDINGS: An AP supine view of the pelvis is correlated with pelvic CT performed the same day 01/08/2023. The skeletal structures are well mineralized. There is no radiographic evidence of acute fracture involving the hips or bony pelvis. The joint spaces of the hips are maintained. The sacroiliac joints are normal. Excreted IV contrast fills the bladder. The overlying soft tissues are within normal limits. IMPRESSION: No acute bony abnormality is identified. Electronically signed by: Davide Vines M.D. 01/08/2023 3:26 PM Foot X-Ray 01/08/23 15:32 LEFT FOOT 3 VIEWS CLINICAL HISTORY: Fifth toe pain. FINDINGS: 3 views of the left foot are obtained. No prior studies are available for comparison at the time of dictation. The skeletal structures are osteopenic. No fracture is seen. There is mild osteoarthritic change at the first metatarsophalangeal joint. The joint spaces of the foot otherwise maintained. Dorsal soft tissue edema is noted. IMPRESSION: Dorsal soft tissue swelling with no acute bony abnormality identified. Electronically signed by: Davide Vines M.D. 01/08/2023 11:27 PM Venous Doppler Study 01/08/23 15:33 ULTRASOUND BILATERAL LOWER EXTREMITY VENOUS CLINICAL HISTORY: Bilateral leg pain and swelling. COMPARISON STUDY: No priors. TECHNIQUE: Real-time, grayscale, and color Doppler sonography of the deep veins of the right and left lower extremity was performed from the inguinal crease to the calf. Compression and augmentation were utilized. FINDINGS: There is no sonographic evidence of deep venous thrombosis identified in the right or left lower extremity. The common femoral, superficial femoral, and popliteal veins are patent and normally compressible bilaterally. The greater saphenous vein and the profunda femoris vein at the junction with the common femoral vein are clear in both legs. The visualized calf veins are patent bilaterally. IMPRESSION: There is no sonographic evidence of deep venous thrombosis identified in the right or left lower extremity. ACT 112: Negative or not required by law. Electronically signed by: Davide Vines M.D. 01/08/2023 4:31 PM Toe X-Ray 01/09/23 12:28 XR toe(s) LT min 2V CLINICAL HISTORY: 5th toe pain, eval fx COMPARISON: Left foot radiographs January 08, 2023. FINDINGS: No acute fracture within the left fifth toe is noted. The possible fracture within the base of the left fifth proximal phalanx on radiographs of 2022 was artifactual. There is osteophytosis at the left first PIP joint. There is no soft tissue swelling is present. IMPRESSION: 1. No acute fracture or dislocation within the left fifth toe. 2. Left fifth toe soft tissue swelling. ACT 112: Negative or not required by law. Electronically signed by: Guero Garcia M.D. 01/09/2023 4:05 PM Hospital Course (1) Acute hypotension: Hypotensive on arrival w/ lactic acid wnl at 1.7 Had recently apparently had her torsemide dose doubled to 60mg twice daily (med rec from PCP office obtained, does appear she has her spironolactone 50mg 2 tablets twice daily, torsemide 20mg three tablets twice daily -- she told me she takes "10 pills" and takes them in the morning and around 2pm with split dosing) Given 2L NSS on admission Cr normalized after IVF on admission and BPs stable and remained stable with resuming spironolactone 50mg BID and torsemide 20mg BID but did have some increased edema to legs and decision to dc on spironolactone 50mg BID and torsemide 40mg BID and had CM arrange for close f/u PCP on Friday for continued monitoring of blood pressure/can increase if needed but appears overdiuresis (in combination w/ elevated ammonia to 154/noncompliance with lactulose at home and only taking 20g daily but on HEAVY narcotic regimen - see below) BP 123/78 prior to discharge Encouraged patient to stay additional day but was alert/oriented, ammonia improving and labs stable. Eval by supervising provider and ok for discharge today and CLOSE f/u PCP (2) Hepatic encephalopathy: Ammonia 154 on admission. Only having once bowel movement a week likely exacerbated by opiate use and only on 20g daily lactulose Placed on lactulose 30mg QID, copious BMs, repeat in evening as she wanted to cut back the lactulose but was still in the 70s and was continued but decreased to TID Discussed with patient and recs to continue 30g TID for now and can back down to BID LONG SHE IS HAVING AT LEAST 3-4BM daily. Strongly encouraged her to continue through loose stools while on heavy opiates to prevent issues as this appears to happen quite frequently and she states there are whole weekends she cant rememebr (Ie w/ friends over for NFL draft and didn't remember entire course) Repeat ammonia improved to 69 but again, strongly encouraged heavy regimen at d/c to prevent issues Continued rifaximin BID, states is taking this at home Discussed decreased morphine ER to 15mg TID and would dc tramadol and limit to just as needed oxycodone to limit constipation/encephalopathy Was given Ceftriaxone x 2 days, no susp for SBP/pain reported above her baseline. No fever. Urine cx appeared infected, denied symptoms. >30 epi, 1+ bacteria but no WBC or leuk est. Pinpoint growth on preliminary but given no sx, no further abx at dc (3) Polypharmacy: Patient takes morphine ER 30mg TID, oxycodone 15mg QID, tramadol 50mg QID, Xanax, quetiapine, ropinerole, gabapentin and 5 days ago added zolpidem. Also on venlafaxine which likely not ideal w/ liver dysfunction Currently on morphine 15mg TID inpatient and tolerable pain w/ as needed oxycodone 15mg Discussed continuing the lower dose morphine at d/c and prn dosing oxycodone given repeated confusion/constipation/encephalopathy at home. DISCONTINUE tramadol She stated she would be agreeable CLose follow up with PCP -- arranged for friday Reduced ropinirole to 4mg HS as at max and likely 6mg daily contributing to her lethargy as well as other meds. Appears in past had even had rx for methocarbamol, not ideal strongly encourage f/u with pcp to see about further condensing medication regimen in patient in follow up (4) Low back pain: New over the last month. ?constipation from lack of bowel movements. Not as significant reported since moving her bowels Improving w/ bowel movements No fracture on CTAP PT/OT consulted, ok for return home and reported moving better than prior baseline function and wanting to go home (5) RUBEN (iron deficiency anemia): Ferritin, transferrin saturations. Discussed w/ heme/onc ASHLEY Hess and just got two iron transfusions in october, labs stable and would NOT order further iron Hgb stable, on IVF on admit for hypotension improved back to baseline w/ resuming diuretics outpt f/u CCP (6) Acute GI bleeding: Fluctuating, recent egd w/ nonhealing ulcer. Hgb was 11 in october, had egd w/ findings in November outpatient. 8.8 on admit, repeat 10.4 then 8.8, 9.4 fecal occult positive gi consulted, felt stable and stable cr and no plans for inpatient scope and to have outpt f/u [facility] hepatology. Stopped PPI gtt, convert to BID, stop octreotide Continued PPI BID, added carafate and continued carafate QID at discharge On aspirin due to hx CVA -- follows neurology. Switched to plavix given ongoing GI bleeding issues for less issues Outpt f/u hepatology as well as her usual neurology (7) Bilateral lower extremity edema: US venous doppler b/l to r/o DV -- NEGATIVE (8) Constipation: improving Linzess Lactulose as above Reduce opiates as above (9) Anxiety: Continued Xanax - consider switch to longer acting benzodiazepine as outpatient if taking regularly w/ PCP at dc (10) Neuropathic pain: Continued gabapentin PRN (11) Hypothyroidism: s/p thyroidectomy for hyperthyroidism. TSH low in May 2022, repeated with AM labs. Continue her usual levothyroxine dosing 325mcg TSH low, T4 wnl. T3 wnl F/u PCP (12) Ascites: No abdominal pain, low suspicion of SBP on exam. reports chronic nausea not worse than usual, likely from her nonhealing ulcer. tx as above (13) History of CVA (cerebrovascular accident): Hold aspirin due to concern for acute GI bleed -- prior neuro note suggests possible plavix in place of aspirin. Ordered while inpatient plavix and rx at [place] head negative on admit (14) Diabetes mellitus: HbA1C 5.6 [05/2022], repeat 5.4 SSI while inpatient, BSGs acceptable Continued home meds at dc f/u pcp (15) RLS (restless legs syndrome): Continued ropinirole but will reduce dose as above maximum recommended --> decreased to 4mg daily (16) Transaminitis: Known history of GILLESPIE causing liver cirrhosis, continue to monitor monitor meld labs in am -- currently 11 (17) Cirrhosis: 2/2 GILLESPIE (18) Pancytopenia: suspected due to liver cirrhosis -- also suspected such per discussion w/ heme/oncology improved on repeat outpt f/u heme/onc -- she plans on seeing in next 2 weeks Plan VTE Prophylaxis - SCDs, chemical contraindicated given bleeding Total Time Total Time Spent Total Time Spent (In Minutes): 50 Discharge Plan Discharge Items Patient Disposition: Home - Self-Care Reason For Visit: HYPOTENSION, HEPATORENAL SYNDROME, HEPATIC ENCEPHA Discharge Diagnosis: Hepatic Encephalopathy, elevated ammonia, Hypotension Goals: You have been hospitalized for an acute medical problem. During your stay at [facility], we have made an effort to correct the problem that brought you to the hospital while keeping you as comfortable as possible. Medications were used to bring your condition under control and your discharge instructions will include directions for any medications you should take after leaving the hospital. Please make sure you see your Primary Care Provider as part of your follow up plan. Activity: As commented below Non-emergency contact: Primary Care Provider and Building Construction Ironworker Call non-emergency contact if: you have any medication questions, your symptoms worsen, your pain is not controlled and you have a fever Follow-up/Referrals: Endy Stanley D.O. [Primary Care Provider] - 01/13/23 12:40 pm Diet: Heart Healthy and Low Sodium (2gm) Addtl Attending Provider Instructions: You have been hospitalized for low blood pressure and confusion which was likely from diuretics which were increased as an outpatient and your lack of bowel movements with elevated ammonia level. You were given lactulose for your elevated ammonia level and have had multiple bowel movements and this level has been decreasing. We recommend taking this at LEAST 2-3 times a day at home to ensure having at least 4 bowel movements a day and need to take extra if not moving them as frequently. We had consulted GI inpatient and they added Carafate four times daily before meals for the chronic ulcer. You should continue your omeprazole 40mg by mouth twice daily. Your spironolactone has been reduced to 50mg by mouth TWICE daily. Your torsemide is continued at 40mg by mouth TWICE daily. You will need close follow up with primary care to see about adjustments to the diuretics if your weight goes up/worsening swelling in your legs or belly but I suspect these may have been a little on the high side. We are recommending you decrease your morphine to 15mg by mouth three times a day to prevent worsening constipation which causes elevated ammonia levels. We have switched your aspirin to plavix daily to help prevent bleeding issues but that you need to be continued on daily medication to prevent strokes. Your CT of the head was negative on admission. We are arranging for close follow up with primary care this upcoming friday/friday and you should have repeat labs with your primary care provider. Please follow up with your meringuer as previously scheduled. Pending Studies at Discharge: Yes Studies:: blood, urine cultures -- no growth to date Stand-Alone Forms: My [employer], Smoking Cessation Medications and DC Order Prescriptions: New clopidogrel 75 mg tablet 75 mg PO DAILY Qty: 30 0RF Continued quetiapine 50 mg tablet 50 mg PO HS Qty: 30 5RF levothyroxine 25 mcg tablet 25 mcg PO QAM Rx Instructions: take with 300mcg qam venlafaxine 37.5 mg capsule,extended release 24hr 37.5 mg PO QAM Rx Instructions: TAKE WITH 150MG Botox 200 unit recon soln 1 unit intradermal UD Rx Instructions: every 11 weeks omeprazole 40 mg capsule,delayed release(DR/EC) 40 mg PO BID gabapentin [Neurontin] 300 mg capsule 600 mg PO TID PRN (Reason: Pain) venlafaxine [Effexor XR] 150 mg capsule,extended release 24hr 150 mg PO QAM Rx Instructions: TAKE WITH 37.5MG levothyroxine 150 mcg tablet 300 mcg PO QAM Rx Instructions: take with 25mcg qam Xifaxan 550 mg tablet 550 mg PO BID Linzess 290 mcg capsule 290 mcg PO QAM Tradjenta 5 mg tablet 5 mg PO QAM metformin 500 mg tablet extended release 24hr 500 mg PO BID Combivent Respimat 20-100 mcg/actuation Mist 1 puff INHALATION QID PRN (Reason: Wheezing) alprazolam [Xanax] 1 mg tablet 0.5 - 1 mg PO BID PRN (Reason: Anxiety) zolmitriptan [Zomig] 5 mg tablet 5 mg PO UD PRN (Reason: migraine headache) Rx Instructions: 5 mg PO PRN migraine, may repeat after 2 hours prn promethazine 25 mg tablet 25 mg PO Q6H PRN (Reason: Nausea) magnesium 200 mg tablet 500 mg PO QAM Nurtec ODT 75 mg tablet,disintegrating 75 mg PO UD Rx Instructions: 75 mg PO; every other day to prevent migraines. Do not take as needed famotidine 40 mg tablet 40 mg PO DAILY Rx Instructions: take this med daily before a meal oxycodone 15 mg Tablet 15 mg PO Q6H Rx Instructions: oxycodone IR potassium chloride 20 mEq tablet extended release 20 meq PO BIDM Rx Instructions: TAKE WITH 10MEQ hydroxyzine HCl 25 mg tablet 25 mg PO HS PRN (Reason: Itching) tizanidine 4 mg tablet 4 mg PO Q6H PRN (Reason: Spasms) cholecalciferol (vitamin D3) 125 mcg (5,000 unit) capsule 125 mcg PO DAILY valacyclovir 500 mg tablet 500 mg PO TID PRN (Reason: COLD SORE) clobetasol 0.05 % solution 1 applic TOPICAL DAILY PRN (Reason: SEBORRHEIC DERMATITIS) tretinoin 0.1 % Cream 1 applic TOPICAL HS PRN (Reason: Acne) [id number] 50-325-40 mg tablet 2 tab PO Q6H PRN (Reason: Migraine Headache) Changed torsemide 20 mg tablet 40 mg PO BID Qty: 60 0RF sucralfate 1 gram tablet 1 g PO QID Qty: 120 0RF morphine [MS Contin] 30 mg Tablet Extended Release 15 mg PO TID MDD 3 tabs Qty: 1 0RF ropinirole 2 mg tablet 4 mg PO HS PRN (Reason: Restless Leg(S)) Qty: 1 0RF spironolactone [Aldactone] 50 mg tablet 50 mg PO BID Qty: 60 0RF lactulose 10 gram/15 mL Solution 30 g PO TID Qty: 473 0RF Discontinued aspirin 81 mg Tablet,Delayed Release (Dr/Ec) 81 mg PO QAM potassium chloride 10 mEq capsule, extended release 10 meq PO BIDM Rx Instructions: TAKE WITH 20MEQ zolpidem 10 mg tablet 10 mg PO HS PRN (Reason: Insomnia) tramadol 50 mg Tablet 50 mg PO Q6H PRN (Reason: Pain) Discharge Orders: Discharge Order (Routine); Ordered 01/10/23 Ordered By: Kimberley Ta Admission Data Admit Date/Time: 01/08/23 16:02 Attending Provider: Ned Park Admit Provider: Yan Stevens Primary Care Provider: Endy Stanley Other Providers: Yan Stevens ; Horacio Barrett ; Ned Park Other Interventions: Discharge Summary Assessment (RN) Last Done: 01/10/23 14:59 Supervising Physician Co-Signing Physician Notes The patient was seen by me. The chart was reviewed. Case discussed with ASHLEY Powell. She is mildly lethargic due to multiple medications. Her PCP will need to address this. Agree with assessment and plan. She will be discharged home today. Coding Level of Care Code 98862 INP/OBS DISCH >30 MIN Diagnoses Acute hypotension I95.9 Hepatic encephalopathy K72.90 Polypharmacy Z79.899 Low back pain M54.50 RUBEN (iron deficiency anemia) D50.9 Acute GI bleeding K92.2 Bilateral lower extremity edema R60.0 Constipation K59.00 Anxiety F41.9 Neuropathic pain M79.2 Hypothyroidism E03.9 Ascites R18.8 History of CVA (cerebrovascular accident) Z86.73 Diabetes mellitus E11.9 RLS (restless legs syndrome) G25.81 Transaminitis R74.0 Cirrhosis K74.60 Pancytopenia D61.818
[2023-01-10] MEDS ORDERED: CLOPIDOGREL BISULFATE 75 MG TAB PO ONE (11:45)
== END 2023-01-10 16:28 | disposition home or self-care (01) | DRG 315 ==
LOC: ED 12:33 → 4W 16:02 → SUATTDRO 16:02 → 4W 18:26

== ENCOUNTER 2023-02-04 08:52 | Inpatient (IN) ==
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
[2023-02-04 10:24] LABS: Basophils # (auto) 0.05 K/uL (0-0.2); Basophils % (auto) 0.3 %; Eosinophils % (auto) 1.3 %; Hematocrit (blood only) 30.9 % (37.0-47.0); Immature Granulocytes # (auto) 0.14 K/uL (0.01-0.20); Immature Granulocytes % (auto) 0.9 %; Lymphocytes # (auto) 1.34 K/uL (1.2-3.4); Lymphocytes % (auto) 8.5 %; Mean Corpuscular Hemoglobin 28.4 pg (25.0-34.0); Mean Corpuscular Hgb Conc 32.4 g/dL (32.0-36.0); Mean Corpuscular Volume 87.8 fL (80.0-100.0); Mean Platelet Volume 9.4 fL (9.4-12.4); Monocytes # (auto) 1.17 K/uL (0.11-0.59); Monocytes % (auto) 7.4 %; Neutrophils # (auto) 12.94 K/uL (1.40-6.50); Neutrophils % (auto) 81.6 %; Platelet Count 183 K/uL (130-400); RDW Coefficient of Variation 15.6 % (11.5-14.5); RDW Standard Deviation 49.1 fL (36.4-46.3); Red Blood Count 3.52 M/uL (4.20-5.40); White Blood Count 15.84 K/ul (4.8-10.8)
[2023-02-04 10:52] LABS: Albumin Globulin Ratio 0.9 (0.9-2); Albumin Level 2.7 gm/dl (3.4-5.0); BUN Creatinine Ratio 10.9 (10-20); Bilirubin,Total 3.1 mg/dl (0.2-1.0); Calcium 8.4 mg/dl (8.6-10.3); Creatinine Clr Calc Pharmacy 28.3 ml/min; Est GFR (African American) 22.8 ml/min; Est GFR (Non-African American) 19.7 ml/min; Potassium 3.8 mmol/L (3.5-5.1); Total Protein 5.7 gm/dl (6.0-8.3)
--- NOTE | 2023-02-04 10:53 | XRay Report ---
XR chest 1V portable HISTORY: 42 years-old Female Altered Mental Status acutely altered mental status COMPARISON: 01/08/2023 TECHNIQUE: AP view of the chest FINDINGS: Cardiac silhouette is enlarged. Cervical spinal fusion hardware. No pneumothorax, pleural effusion, a irspace consolidation or pulmonary edema. Bones appear grossly intact. IMPRESSION: No acute process. ACT 112: Negative or not required by law. The above report was generated using voice recognition software. It may contain grammatical, syntax o r spelling errors. Electronically signed by: Lorenzo Ocampo M.D. 02/04/2023 10:51 AM
[2023-02-04 10:59] LABS: Appearance Urine Cloudy (Clear); Blood Urine 1+ (Negative); Color Urine Dark Yellow; Epithelial Cell Urine Auto 20-30 /lpf (0-5); Glucose Urine UA Negative (Negative); Ketones Urine Trace (Negative); Leukocyte Esterase Urine Trace (Negative); Nitrite Urine Negative (Negative); Protein Urine Negative (Negative); Specific Gravity Urine 1.016 (1.000-1.030); Urobilinogen Urine Negative (Negative)
[2023-02-04 11:23] LABS: Amphetamines+Metham, Urine Neg (Neg); Barbiturates, Urine Pos (Neg); Benzodiazepine, Urine Pos (Neg); Cocaine, Urine Neg (Neg); MDMA (Ecstacy), Urine Neg (Neg); Methadone, Urine Neg (Neg); Opiate, Urine Pos (Neg); Phencyclidine, Urine Neg (Neg)
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
[2023-02-04 12:11] LABS: Bilirubin Urine 1+ (Negative)
--- NOTE | 2023-02-04 12:11 | Electrocardiogram Report ---
Test Reason : Blood Pressure : / mmHG Vent. Rate : 093 BPM Atrial Rate : 093 BPM P-R Int : 158 ms QRS Dur : 082 ms QT Int : 408 ms P-R-T Axes : 023 004 034 degrees QTc Int : 507 ms Normal sinus rhythm Low voltage QRS Poor R wave progression, consider anterior AK vs. lead placement vs. LVH Prolonged QT Abnormal ECG When compared with ECG of 08-JAN-2023 12:55, Questionable change in initial forces of Anteroseptal leads Confirmed by Rafal Barrera ([id number]) on 02/04/2023 12:11:07 PM Referred By: REFERRED SELF Confirmed By:Adi Barrera
[2023-02-04 12:16] LABS: INR 1.7 (0.9-1.1); Partial Thromboplastin Time 27.1 Seconds (21.0-31.0); Prothrombin Time 17.9 Seconds (9.0-12.0)
[2023-02-04 12:23] LABS: Mucus Urine Present (None Prsent)
[2023-02-04 12:26] LABS: Bacteria Urine Automated 1+ (Negative)
[2023-02-04] MEDS ORDERED: cefTRIAXone SODIUM 2,000 MG/70 ML BAG IV STA (12:32)
--- NOTE | 2023-02-04 13:29 | CT Scan Report ---
CT OF THE ABDOMEN AND PELVIS WITHOUT CONTRAST CLINICAL HISTORY: Left flank pain, splenomegaly, falls w bruising. COMPARISON STUDY: CT of the abdomen and pelvis January 08, 2023. TECHNIQUE: Axial images of the abdomen and pelvis were obtained without IV contrast. Images were revi ewed in the axial, sagittal, and coronal planes. Automated exposure control was utilized for the eric dy. A dose lowering technique was utilized adhering to the principles of ALARA. FINDINGS: No acute rib fractures are identified within visualized portions of the lower chest. There is a trace left pleural effusion. Moderate ascites has increased since CT of January 08, 2023. Splenomega ly is again noted. Size of the spleen has decreased since prior CT. Low-attenuation perisplenic fluid represents ascites. There is no evidence for traumatic injury to the spleen although evaluation is s uboptimal on this unenhanced exam. The liver is cirrhotic. Abdominal varices are again noted. Unenhan ab images of the adrenal glands, kidneys and pancreas are normal. There is no pancreatic ductal dila tation. Mild dilatation of the common bile duct is unchanged and likely related to cholecystectomy. T here is no evidence for a bowel obstruction. There are postoperative findings within the stomach. No acute fractures are identified within the lumbar spine, pelvis or hips. Body wall edema favors anasar ca. No hemoperitoneum or pneumoperitoneum is identified. Sclerotic lesions within the pelvis are unch anged from earlier exams. These are benign. IMPRESSION: 1. No acute traumatic findings within the abdomen or pelvis although evaluation suboptimal on this un enhanced exam. 2. Cirrhosis with splenomegaly and varices formation. Increase in moderate ascites since CT of December. 3. Body wall edema suggestive of anasarca. 4. No acute fractures. ACT 112: Negative or not required by law. Electronically signed by: Guero Garcia M.D. 02/04/2023 1:27 PM
[2023-02-04] MEDS ORDERED: SODIUM CHLORIDE 0.9% 1000ML 1,000 ML IV ONE (13:34)
[2023-02-04] MEDS ORDERED: NALOXONE HCL 0.4 MG/1 ML VIAL/CARP IV PRN (13:52)
[2023-02-04] MEDS ORDERED: SODIUM CHLORIDE 0.9% 1000ML 500 ML IV ONE (15:28)
[2023-02-04] MEDS ORDERED: CARBOHYDRATES FOR HYPOGLYCEMIA PO PRN (15:45)
[2023-02-04] MEDS ORDERED: GLUCOSE 10 TAB/TUBE PO PRN (15:45)
[2023-02-04] MEDS ORDERED: GABAPENTIN 300 MG CAP PO PRN (15:45)
[2023-02-04] MEDS ORDERED: DEXTROSE 50% 50 ML SYRINGE IV PRN (15:45)
[2023-02-04] MEDS ORDERED: IPRATROPIUM BROMIDE/ALBUTEROL respimat INH INH PRN (15:45)
[2023-02-04] MEDS ORDERED: GLUCOSE 40% GEL 15 GM TUBE PO PRN (15:45)
[2023-02-04] MEDS ORDERED: GLUCAGON FOR INJ 1 MG VIAL SQ PRN (15:45)
[2023-02-04] MEDS: ALBUMIN 25% 25 GM/100 ML VIAL IV SCH ×5 (16:03→23:53)
[2023-02-04] MEDS ORDERED: Ipratropium HFA Inhaler (Combivent Respimat P&T Subs) INH PRN (16:12)
[2023-02-04] MEDS ORDERED: Albuterol HFA 8 GM Inhaler (Combivent Respimat P&T Subs) INH PRN (16:12)
[2023-02-04] MEDS: POTASSIUM CHLORIDE CRTAB 20 MEQ TABCR PO SCH (16:34)
[2023-02-04] MEDS: SUCRALFATE 1 GM TAB PO SCH ×2 (16:34→19:25)
[2023-02-04] MEDS: INSULIN ASPART PER UNIT CHARGE SC SCH ×2 (16:50→20:08)
[2023-02-04] MEDS: LACTULOSE SYRUP 30 GM/45 ML UDP PO SCH ×2 (18:15→22:38)
[2023-02-04] MEDS ORDERED: PHYTONADIONE 5 MG in DEXTROSE 5% 50 ML IV ONE (18:45)
[2023-02-04] MEDS: rifAXIMin 550 MG TABLET PO SCH (19:31)
[2023-02-04 20:10] LABS: Fibrinogen 115 mg/dl (184-400)
[2023-02-05] MEDS: ALBUMIN 25% 25 GM/100 ML VIAL IV SCH (01:30)
[2023-02-05] MEDS: LEVOTHYROXINE SODIUM 150 MCG TABLET PO SCH (05:15)
[2023-02-05] MEDS: FAMOTIDINE 40 MG TABLET PO SCH (05:15)
[2023-02-05 06:56] LABS: INR 2.1 (0.9-1.1); Prothrombin Time 21.9 Seconds (9.0-12.0)
[2023-02-05 06:59] LABS: Albumin Level 3.8 gm/dl (3.4-5.0); BUN Creatinine Ratio 13.6 (10-20); Bilirubin,Total 3.6 mg/dl (0.2-1.0); Calcium 8.3 mg/dl (8.6-10.3); Creatinine Clr Calc Pharmacy 33.9 ml/min; Est GFR (African American) 25.6 ml/min; Est GFR (Non-African American) 22.1 ml/min; Globulin 1.9 gm/dl (2.5-4.0); Potassium 3.8 mmol/L (3.5-5.1); Total Protein 5.7 gm/dl (6.0-8.3)
[2023-02-05 07:00] LABS: Basophils # (auto) 0.03 K/uL (0-0.2); Basophils % (auto) 0.4 %; Eosinophils # (auto) 0.21 K/uL (0-0.50); Eosinophils % (auto) 2.9 %; Hematocrit (blood only) 21.2 % (37.0-47.0); Immature Granulocytes # (auto) 0.02 K/uL (0.01-0.20); Immature Granulocytes % (auto) 0.3 %; Mean Corpuscular Hemoglobin 28.9 pg (25.0-34.0); Mean Corpuscular Volume 87.6 fL (80.0-100.0); Mean Platelet Volume 9.6 fL (9.4-12.4); Monocytes # (auto) 0.81 K/uL (0.11-0.59); Monocytes % (auto) 11.4 %; Neutrophils # (auto) 4.56 K/uL (1.40-6.50); Platelet Count 90 K/uL (130-400); Platelet Estimate Decreased (Normal); RBC Morphology Unremarkable; RDW Coefficient of Variation 15.5 % (11.5-14.5); RDW Standard Deviation 49.6 fL (36.4-46.3); Red Blood Count 2.42 M/uL (4.20-5.40); White Blood Count 7.13 K/ul (4.8-10.8)
[2023-02-05] MEDS: SUCRALFATE 1 GM TAB PO SCH ×4 (08:29→20:21)
[2023-02-05] MEDS: rifAXIMin 550 MG TABLET PO SCH ×2 (08:29→20:22)
[2023-02-05] MEDS: VENLAFAXINE HCL XR 150 MG CAPXR PO SCH (08:30)
[2023-02-05] MEDS: POTASSIUM CHLORIDE CRTAB 20 MEQ TABCR PO SCH ×2 (08:30→17:23)
[2023-02-05] MEDS: CLOPIDOGREL BISULFATE 75 MG TAB PO SCH (08:30)
[2023-02-05] MEDS: VENLAFAXINE HCL XR 37.5 MG CAPXR PO SCH (08:30)
[2023-02-05] MEDS: rOPINIRole HCL 2 MG TABLET PO PRN (08:30)
[2023-02-05] MEDS: LACTULOSE SYRUP 30 GM/45 ML UDP PO SCH ×3 (08:31→20:21)
[2023-02-05] MEDS: INSULIN ASPART PER UNIT CHARGE SC SCH ×4 (08:32→21:27)
[2023-02-05] MEDS ORDERED: NON-FORMULARY MEDICATION (Linaclotide [Linzess] 290 mcg capsule) PO SCH (09:00)
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
[2023-02-05] MEDS: PROMETHAZINE HCL 25 MG TAB PO PRN ×2 (11:05→18:45)
--- NOTE | 2023-02-05 15:07 | Hospitalist Progress Note ---
Date of Service February 05, 2023 Assessment & Plan (1) Acute hepatic encephalopathy: Plan: Patient has a history of [place], presents with acute encephalopathy. Although at home, on a lot of medications like opiates barbiturates benzos which could be contributing as well. Ammonia level elevated upon admission. CT scan of the head did not show any acute pathology. Was started on lactulose, although according to the has been taking lactulose at home with frequent loose stools. Upon further evaluation this morning, encephalopathy almost resolved according to the . We will continue to monitor ammonia level. While in hospital, will taper down her opiates., According to the she takes 30 mg of morphine in the morning 30 mg of OxyCodone in the morning and also 30 mg of morphine at night and 15 mg of oxycodone at night We will continue only 15 mg OxyContin every 6 as needed for now (2) DUNAWAY (nonalcoholic steatohepatitis): Plan: DUNAWAY cirrhosis with acute on chronic hepatic encephalopathy Leukocytosis of 15.8 with neutrophilic predominance but no left shift Last EGD 11/2022 at [facility], has known esophageal varices and a small gastric ulcer - Last colo [facility] 09/16 for RUBEN: Diverticulosis without diverticulitis. - Last prior CT of the abdomen pelvis has shown cirrhosis with portal hypertension, nonocclusive portal splenic thrombus Patient is on spironolactone 50 mg twice daily and torsemide 40 mg p.o. bid No hematemesis, melena, hematochezia in the last week Lactulose 30 g 4 times daily, titrate to 4 bowel movements daily. Her reports that he has been giving her at least 90 g daily, and she has been going to the bathroom near continuously for the last few days. LFTs are elevated above baseline. T. bili/AST/ALT/alk phos on admit are 3 .1/591/164/110 BP 130s/7080s in ER, mild tachycardia at 90 CTA/P:1. No acute traumatic findings within the abdomen or pelvis although evaluation suboptimal on this unenhanced exam. 2. Cirrhosis with splenomegaly and varices formation. Increase in moderate ascites since CT of January 08, 2023. 3. Body wall edema suggestive of anasarca. 4. No acute fractures. INR: 1.7 Continue Xifaxan Continue Linzess Continue Carafate, Protonix twice daily GI has followed) colonoscopy in August; however [facility] hepatology has requested keeping all of her routine GI and hepatology care within [facility] system for continuity as much as possible and failure to keep routine care within their system could result in dismissal MELDNa score 30 (creatinine 2.84, bilirubin 3.1, INR 1.7, sodium 129) 52% 3- month mortality Child-Chaudhari class C (bilirubin greater than 3, albumin less than 2.8, INR 1.7, moderate ascites with at least grade 12 encephalopathy) Message has been left with patient's [facility] hepatology group Dr. Prado/Dr. Liz for low back due to her progressive worsening and increased Child-Chaudhari/MELD scores. Pending callback Diagnostic and therapeutic paracentesis ordered. Will require albumin replacement (3) UTI (urinary tract infection): Plan: Urinalysis shows evidence of UTI Started empirically on IV ceftriaxone Monitor urine cultures (4) Diabetes mellitus: Plan: Recent A1c's have been normal We will hold long-acting; conservative sliding scale ordered based on weight - CF 45, carb ratio 15 Goal BSG [id number] -Glucose checks AC/at bedtime or every 6 hours if NPO (5) Ascites: (6) Thrombocytopenia: (7) Hepatic encephalopathy: (8) History of CVA (cerebrovascular accident): (9) Cancer: (10) Diabetes mellitus, type 2: (11) Esophageal varices: (12) Neurogenic bladder: (13) Neuropathy: (14) JOANNA (acute kidney injury): Plan DVT prophylaxis: Pharmacoppx deferred due to history of bleeding and varices Diet: Low-salt Disposition: telemetry for acute renal failure, cirrhosis with electrolyte abnormalities CODE STATUS: Full code Admission and Anticipated Discharge Date Admission Date: February 04, 2023 Subjective Patient seen and examined, by the bedside, according to the , and encephalopathy has resolved Review of Systems Review of Systems: All systems reviewed are negative, apart from the ones contained in the history. Physical Exam Physical Exam: The patient is awake, alert and oriented 3, well developed and well nourished, normocephalic and atraumatic, lying in bed and in no acute distress. HEENT--PERRL, EOMI, mucous membranes and oropharynx mildly dry Neck--supple. No JVD. No bruits. Thyroid normal, trachea midline, no adenopathy. Heart--normal S1 and S2. No murmurs, rubs or gallops. Lungs--clear bilaterally, no respiratory distress, no accessory muscle use. Abdomen--distended Extremities--no cyanosis or clubbing. No edema. Dermatologic--normal skin turgor, normal color, no abnormal lymph nodes, no rash. Neurologic--cranial nerves II through XII grossly intact. Rheumatologic--normal range of motion. Psychiatric--normal affect. Results & Data Results & Data Vital Signs (Past 12 Hours) Vital Signs Temp Pulse Resp BP Pulse Ox O2 Del Method 02/05/23 11:45 98.2 F 95 H 18 122/63 99 Room Air 02/05/23 07:49 98.2 F 91 H 18 112/72 97 Room Air PG Care Time/CCT Total # of Minutes Spent Total Time Spent with Patient: Total time spent is greater than 50% in coordination of care (as documented) at patient's floor/unit and/or counseling patient: Coding Level of Care Code 78371 SUB INP/OBS CARE 2/35MIN Diagnoses Acute hepatic encephalopathy K76.82 DUNAWAY (nonalcoholic steatohepatitis) K75.81 UTI (urinary tract infection) N39.0 Diabetes mellitus E11.9 Ascites R18.8 Thrombocytopenia D69.6 Hepatic encephalopathy K72.90 History of CVA (cerebrovascular accident) Z86.73 Cancer C80.1 Diabetes mellitus, type 2 E11.9 Esophageal varices I85.00 Neurogenic bladder N31.9 Neuropathy G62.9 JOANNA (acute kidney injury) N17.9 Time Spent (min) 35
[2023-02-05] MEDS: cefTRIAXone SODIUM 2,000 MG in DEXTROSE 5% 50 ML IV SCH (15:16)
[2023-02-05 17:24] LABS: Hematocrit (blood only) 22.3 % (37.0-47.0); Hemoglobin 7.3 g/dl (12.0-16.0)
--- NOTE | 2023-02-05 17:41 | Ultrasound Report ---
Ultrasound-guided paracentesis INDICATION: Ascites PROCEDURE: Procedure and risks were explained. Informed consent was obtained. A final time out was co mpleted. The left lower quadrant was prepped and draped in sterile fashion. 1% buffered lidocaine was utilized for skin anesthesia. Utilizing ultrasound guidance, a 5 [place] safety centesis catheter was advanced into the left lower q uadrant pocket of ascites. Ultrasound images were obtained. A total of 2.2 L of elda-colored fluid w as removed, with 1 L sent to lab for analysis. The catheter was removed and Band-Aid applied. The pat ient tolerated the procedure well. Vital signs will be monitored postprocedure. IMPRESSION: Ultrasound-guided paracentesis as above. Performed, dictated, and signed by Marvin Greene PA-C; to be co-signed by Dr. Mohit Perez. Electronically signed by: Mohit Perez M.D. 02/05/2023 5:39 PM
[2023-02-05] MEDS ORDERED: bisacodyL 10 MG SUPP PR STA (18:07)
[2023-02-05] MEDS: oxyCODONE HCL IR 5 MG TAB (IMMEDIATE RELEASE) PO PRN (20:21)
[2023-02-06] MEDS: rOPINIRole HCL 2 MG TABLET PO PRN ×2 (01:19→22:16)
[2023-02-06] MEDS: PROMETHAZINE HCL 25 MG TAB PO PRN ×2 (03:15→09:39)
[2023-02-06] MEDS: oxyCODONE HCL IR 5 MG TAB (IMMEDIATE RELEASE) PO PRN ×3 (04:53→22:34)
[2023-02-06] MEDS: FAMOTIDINE 40 MG TABLET PO SCH (04:54)
[2023-02-06] MEDS: LEVOTHYROXINE SODIUM 150 MCG TABLET PO SCH (04:55)
[2023-02-06 06:32] LABS: Basophils # (auto) 0.03 K/uL (0-0.2); Basophils % (auto) 0.4 %; Eosinophils # (auto) 0.11 K/uL (0-0.50); Eosinophils % (auto) 1.3 %; Hematocrit (blood only) 22.6 % (37.0-47.0); Hemoglobin 7.4 g/dl (12.0-16.0); Immature Granulocytes # (auto) 0.03 K/uL (0.01-0.20); Immature Granulocytes % (auto) 0.4 %; Lymphocytes # (auto) 1.23 K/uL (1.2-3.4); Lymphocytes % (auto) 15.1 %; Mean Corpuscular Hemoglobin 27.9 pg (25.0-34.0); Mean Corpuscular Hgb Conc 32.7 g/dL (32.0-36.0); Mean Corpuscular Volume 85.3 fL (80.0-100.0); Mean Platelet Volume 9.4 fL (9.4-12.4); Monocytes # (auto) 0.92 K/uL (0.11-0.59); Monocytes % (auto) 11.3 %; Neutrophils # (auto) 5.84 K/uL (1.40-6.50); Neutrophils % (auto) 71.5 %; Platelet Count 98 K/uL (130-400); RDW Coefficient of Variation 15.9 % (11.5-14.5); RDW Standard Deviation 48.4 fL (36.4-46.3); Red Blood Count 2.65 M/uL (4.20-5.40); White Blood Count 8.16 K/ul (4.8-10.8)
[2023-02-06 06:57] LABS: Polychromasia 1+
[2023-02-06 06:58] LABS: Albumin Globulin Ratio 1.6 (0.9-2); Albumin Level 3.3 gm/dl (3.4-5.0); BUN Creatinine Ratio 21.3 (10-20); Bilirubin,Total 2.8 mg/dl (0.2-1.0); Calcium 8.2 mg/dl (8.6-10.3); Creatinine Clr Calc Pharmacy 69.8 ml/min; Est GFR (African American) 63.3 ml/min; Est GFR (Non-African American) 54.6 ml/min; Globulin 2.1 gm/dl (2.5-4.0); Potassium 3.7 mmol/L (3.5-5.1); Total Protein 5.4 gm/dl (6.0-8.3)
[2023-02-06] MEDS: LACTULOSE SYRUP 30 GM/45 ML UDP PO SCH ×3 (08:56→21:17)
[2023-02-06] MEDS: POTASSIUM CHLORIDE CRTAB 20 MEQ TABCR PO SCH ×2 (08:56→17:11)
[2023-02-06] MEDS: CLOPIDOGREL BISULFATE 75 MG TAB PO SCH (08:56)
[2023-02-06] MEDS: rifAXIMin 550 MG TABLET PO SCH ×2 (08:56→21:18)
[2023-02-06] MEDS: VENLAFAXINE HCL XR 37.5 MG CAPXR PO SCH (08:56)
[2023-02-06] MEDS: VENLAFAXINE HCL XR 150 MG CAPXR PO SCH (08:56)
[2023-02-06] MEDS: SUCRALFATE 1 GM TAB PO SCH (08:56)
[2023-02-06] MEDS: INSULIN ASPART PER UNIT CHARGE SC SCH ×4 (08:58→21:00)
--- NOTE | 2023-02-06 11:16 | Gastroenterology Progress Note ---
Date of Service February 06, 2023 Assessment & Plan (1) Acute hepatic encephalopathy: (2) Ascites: (3) Cirrhosis: (4) Hepatic encephalopathy: (5) GILLESPIE (nonalcoholic steatohepatitis): Plan Patient is a 42 y.o. female with GILLESPIE cirrhosis followed by [facility] hepatology admitted with AMS changes and HE in the setting of polypharmacy and UTI. MELD-Na 30. -I had a long discussion with the patient and her significant other about the dangers of ongoing opiate use in the setting ESLD. Consider outpatient pain management evaluation. -Continue Lactulose 30 g TID with dose titration for goal of 3 bms daily and Xifaxan 550 mg BID. -If worsening abdominal distention or lower extremity edema, add Aldactone/Lasix. -Continue IV abx as currently prescribed. -Will stop tablet Carafate and initiate Carafate 10 ml QID as she reports intolerance to the oral formulation. -Outpatient follow up with hepatology. 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 Admission and Anticipated Discharge Date Admission Date: February 04, 2023 Subjective Patient with a tremor and reporting some nausea with medications. Refusing her oral Carafate. No confusion overnight. Has been adherent to her lactulose per nursing. H&H is stable. No overt GIB. No abdominal pain reported. Review of Systems Constitutional: + fatigue and + weakness Gastrointestinal: as per Subjective / HPI Physical Exam Constitutional: + morbidly obese; no acute distress Eyes: + dilated pupils and + fixed pupils Neck: normal visual inspection Respiratory: normal respiratory effort, lungs clear to auscultation Cardiovascular: Rate/Rhythm: regular rate and regular rhythm Gastrointestinal (Abdomen): Inspection/Auscultation: normal bowel sounds Percussion/Palpation: abdomen soft; abdomen nontender Musculoskeletal: Extremities: + lower leg abnormality (trace edema) Bilateral Results & Data Results & Data Vital Signs (Past 12 Hours) Vital Signs Temp Pulse Pulse Resp BP BP Pulse Ox 02/06/23 07:29 36.8 C 90 20 117/63 96 02/06/23 02:59 37.3 C 90 20 107/55 L 97 02/06/23 00:43 90 02/05/23 23:23 37.1 C 88 18 113/71 100 O2 Del Method 02/06/23 07:29 Room Air 02/06/23 02:59 Room Air 02/06/23 00:43 02/05/23 23:23 Room Air Diagnostic Findings Laboratory Results WBC 8.16 K/ul (4.8-10.8) 02/06/23 05:54 RBC 2.65 M/uL (4.20-5.40) L 02/06/23 05:54 Hgb 7.4 g/dl (12.0-16.0) L 02/06/23 05:54 Hct 22.6 % (37.0-47.0) L 02/06/23 05:54 MCV 85.3 fL (80.0-100.0) 02/06/23 05:54 MCH 27.9 pg (25.0-34.0) 02/06/23 05:54 MCHC 32.7 g/dL (32.0-36.0) 02/06/23 05:54 RDW Std Deviation 48.4 fL (36.4-46.3) H 02/06/23 05:54 RDW Coeff of Hen[place] 15.9 % (11.5-14.5) H 02/06/23 05:54 Plt Count 98 K/uL (130-400) L 02/06/23 05:54 MPV 9.4 fL (9.4-12.4) 02/06/23 05:54 Immature Gran % (Auto) 0.4 % 02/06/23 05:54 Neut % (Auto) 71.5 % 02/06/23 05:54 Lymph % (Auto) 15.1 % 02/06/23 05:54 [place] % (Auto) 11.3 % 02/06/23 05:54 Eos % (Auto) 1.3 % 02/06/23 05:54 Baso % (Auto) 0.4 % 02/06/23 05:54 Neut # (Auto) 5.84 K/uL (1.40-6.50) 02/06/23 05:54 Lymph # (Auto) 1.23 K/uL (1.2-3.4) 02/06/23 05:54 Benton # (Auto) 0.92 K/uL (0.11-0.59) H 02/06/23 05:54 Eos # (Auto) 0.11 K/uL (0-0.50) 02/06/23 05:54 Baso # (Auto) 0.03 K/uL (0-0.2) 02/06/23 05:54 Immature Gran # (Auto) 0.03 K/uL (0.01-0.20) 02/06/23 05:54 Platelet Estimate Decreased (Normal) L 02/05/23 06:12 RBC Morphology Unremarkable 02/05/23 06:12 Polychromasia 1+ 02/06/23 05:54 PT 21.9 Seconds (9.0-12.0) H 02/05/23 06:12 INR 2.1 (0.9-1.1) H 02/05/23 06:12 APTT 27.1 Seconds (21.0-31.0) 02/04/23 09:24 PTT Ratio 1.0 02/04/23 09:24 Fibrinogen 115 mg/dl (184-400) L 02/04/23 19:06 Sodium 138 mmol/L (136-145) 02/06/23 05:54 Potassium 3.7 mmol/L (3.5-5.1) 02/06/23 05:54 Chloride 99 mmol/L (98-107) 02/06/23 05:54 Carbon Dioxide 30 mmol/L (21-32) 02/06/23 05:54 Anion Gap 9 (3-11) 02/06/23 05:54 BUN 26 mg/dl (6-23) H 02/06/23 05:54 Creatinine 1.22 mg/dl (0.6-1.2) H D 02/06/23 05:54 Est Cr Clr Drug Dosing 69.8 ml/min 02/06/23 05:54 Est GFR ( Amer) 63.3 ml/min 02/06/23 05:54 Est GFR (Non-Af Amer) 54.6 ml/min 02/06/23 05:54 BUN/Creatinine Ratio 21.3 (10-20) H 02/06/23 05:54 Glucose 104 mg/dl (70-99(Fasting)) H 02/06/23 05:54 POC Glucose 104 mg/dl (70-99) H 02/06/23 07:19 Lactate 1.6 mmol/L (0.4-2.0) 02/05/23 06:12 Calcium 8.2 mg/dl (8.6-10.3) L 02/06/23 05:54 Total Bilirubin 2.8 mg/dl (0.2-1.0) H 02/06/23 05:54 AST 468 U/L (13-39) H 02/06/23 05:54 ALT 131 U/L (7-52) H 02/06/23 05:54 Alkaline Phosphatase 78 U/L (34-104) 02/06/23 05:54 Ammonia 146.0 umol/L (18-72) H 02/04/23 09:24 Total Protein 5.4 gm/dl (6.0-8.3) L 02/06/23 05:54 Albumin 3.3 gm/dl (3.4-5.0) L 02/06/23 05:54 Globulin 2.1 gm/dl (2.5-4.0) L 02/06/23 05:54 Albumin/Globulin Ratio 1.6 (0.9-2) 02/06/23 05:54 Urine Color Dark Yellow 02/04/23 10:35 Urine Appearance Cloudy (Clear) A 02/04/23 10:35 Urine pH 5.0 (4.5-7.5) 02/04/23 10:35 Ur Specific [place] 1.016 (1.000-1.030) 02/04/23 10:35 Urine Protein Negative (Negative) 02/04/23 10:35 Urine Glucose (UA) Negative (Negative) 02/04/23 10:35 Urine Ketones Trace (Negative) H 02/04/23 10:35 Urine Blood 1+ (Negative) H 02/04/23 10:35 Urine Nitrite Negative (Negative) 02/04/23 10:35 Urine Bilirubin 1+ (Negative) H 02/04/23 10:35 Urine Urobilinogen Negative (Negative) 02/04/23 10:35 Ur Leukocyte Esterase Trace (Negative) H 02/04/23 10:35 Urine WBC (Auto) 1-5 /hpf (0-5) 02/04/23 10:35 Urine RBC (Auto) 10-30 /hpf (0-4) H 02/04/23 10:35 U Hyaline Cast (Auto) 5-10 /lpf (0-5) H 02/04/23 10:35 U Epithel Cells (Auto) 20-30 /lpf (0-5) H 02/04/23 10:35 Urine Bacteria (Auto) 1+ (Negative) H 02/04/23 10:35 Urine Mucus Present (None Prsent) A 02/04/23 10:35 Urine Opiates Screen Pos (Neg) H 02/04/23 10:35 Ur Methadone, Qual Neg (Neg) 02/04/23 10:35 Urine Barbiturates Pos (Neg) H 02/04/23 10:35 Ur Phencyclidine (PCP) Neg (Neg) 02/04/23 10:35 U Amphetamin/Meth Scrn Neg (Neg) 02/04/23 10:35 MDMA (Ecstasy) Screen Neg (Neg) 02/04/23 10:35 U Benzodiazepines Scrn Pos (Neg) H 02/04/23 10:35 Ur Cocaine Metabolite Neg (Neg) 02/04/23 10:35 U Marijuana (THC) Screen Neg (Neg) 02/04/23 10:35 SARS-CoV-2, RNA, NAAT NEGATIVE (NEGATIVE) 02/04/23 10:43 Impressions Chest X-Ray 02/04/23 09:41 XR chest 1V portable HISTORY: 42 years-old Female Altered Mental Status acutely altered mental status COMPARISON: 01/08/2023 TECHNIQUE: AP view of the chest FINDINGS: Cardiac silhouette is enlarged. Cervical spinal fusion hardware. No pneumothorax, pleural effusion, airspace consolidation or pulmonary edema. Bones appear grossly intact. IMPRESSION: No acute process. ACT 112: Negative or not required by law. The above report was generated using voice recognition software. It may contain grammatical, syntax or spelling errors. Electronically signed by: Lorenzo Ocampo M.D. 02/04/2023 10:[address] 02/04/23 09:41 CT OF THE HEAD WITHOUT CONTRAST CLINICAL HISTORY: Trauma; Fell and hit head. COMPARISON STUDY: MRI of the brain May 18, [address] January 08, 2023. CT DOSE: 547.75 mGy.cm TECHNIQUE: Helical axial images of the head were obtained without IV contrast. Automated exposure control was utilized for the study. A dose lowering technique was utilized adhering to the principles of ALARA. FINDINGS: No acute intracranial hemorrhage, midline shift or mass effect is present. A hypodensity within left basal ganglia is unchanged. The ventricular system is unremarkable. The basal cisterns are patent. No extra-axial collections are present. There are no findings to suggest acute dural sinus thrombosis or acute territorial infarct. No significant calvarial abnormalities are present. Visualized portions of the sinuses and mastoid air cells are clear. There are no calvarial fractures. IMPRESSION: 1. No acute intracranial findings. 2. No calvarial fractures. ACT 112: Negative or not required by law. Electronically signed by: Guero Garcia M.D. 02/04/2023 10:08 AM Abdomen/Pelvis CT 02/04/23 11:39 CT OF THE ABDOMEN AND PELVIS WITHOUT CONTRAST CLINICAL HISTORY: Left flank pain, splenomegaly, falls w bruising. COMPARISON STUDY: CT of the abdomen and pelvis January 08, 2023. TECHNIQUE: Axial images of the abdomen and pelvis were obtained without IV contrast. Images were reviewed in the axial, sagittal, and coronal planes. Automated exposure control was utilized for the study. A dose lowering technique was utilized adhering to the principles of ALARA. FINDINGS: No acute rib fractures are identified within visualized portions of the lower chest. There is a trace left pleural effusion. Moderate ascites has increased since CT of January 08, 2023. Splenomegaly is again noted. Size of the spleen has decreased since prior CT. Low-attenuation perisplenic fluid represents ascites. There is no evidence for traumatic injury to the spleen although evaluation is suboptimal on this unenhanced exam. The liver is cirrhotic. Abdominal varices are again noted. Unenhanced images of the adrenal glands, kidneys and pancreas are normal. There is no pancreatic ductal dilatation. Mild dilatation of the common bile duct is unchanged and likely related to cholecystectomy. There is no evidence for a bowel obstruction. There are postoperative findings within the stomach. No acute fractures are identified within the lumbar spine, pelvis or hips. Body wall edema favors anasarca. No hemoperitoneum or pneumoperitoneum is identified. Sclerotic lesions within the pelvis are unchanged from earlier exams. These are benign. IMPRESSION: 1. No acute traumatic findings within the abdomen or pelvis although evaluation suboptimal on this unenhanced exam. 2. Cirrhosis with splenomegaly and varices formation. Increase in moderate a scites since CT of January 08, 2023. 3. Body wall edema suggestive of anasarca. 4. No acute fractures. ACT 112: Negative or not required by law. Electronically signed by: Guero Garcia M.D. 02/04/2023 1:27 PM Paracentesis Ultrasound 02/05/23 10:30 Ultrasound-guided paracentesis INDICATION: Ascites PROCEDURE: Procedure and risks were explained. Informed consent was obtained. A final time out was completed. The left lower quadrant was prepped and draped in sterile fashion. 1% buffered lidocaine was utilized for skin anesthesia. Utilizing ultrasound guidance, a 5 Wallisian safety centesis catheter was advanced into the left lower quadrant pocket of ascites. Ultrasound images were obtained. A total of 2.2 L of elda-colored fluid was removed, with 1 L sent to lab for analysis. The catheter was removed and Band-Aid applied. The patient tolerated the procedure well. Vital signs will be monitored postprocedure. IMPRESSION: Ultrasound-guided paracentesis as above. Performed, dictated, and signed by Marvin Greene PA-C; to be co-signed by Dr. Mohit Perez. Electronically signed by: Mohit Perez M.D. 02/05/2023 5:39 PM PG Care Time/CCT Total # of Minutes Spent Total Time Spent with Patient: Total time spent is greater than 50% in coordination of care (as documented) at patient's floor/unit and/or counseling patient: Coding Level of Care Code 69872 SUB INP/OBS CARE 3/50MIN Diagnoses Acute hepatic encephalopathy K76.82 Ascites R18.8 Cirrhosis K74.60 Hepatic encephalopathy K72.90 GILLESPIE (nonalcoholic steatohepatitis) K75.81
[2023-02-06] MEDS: ONDANSETRON INJ 2 MG/ML 2 ML VIAL IV PRN (11:52)
[2023-02-06] MEDS: SUCRALFATE 1 GM/10 ML UDC PO SCH ×3 (13:06→21:17)
[2023-02-06 13:11] LABS: 7-Aminoclonaz, Confirm NEGATIVE ng/mL (<25); Amobarbital, Urine Conf NEGATIVE ng/mL (<100); Butalbital, Urine 208 ng/mL (<100); Codeine Urine NEGATIVE ng/mL (<50); Hydro-Alp Ur, GC/MS 302 ng/mL (<25); Hydrocodone Urine NEGATIVE ng/mL (<50); Hydromor Urine 174 ng/mL (<50); Hydroxyethylflurazepam, Conf NEGATIVE ng/mL (<50); Hydroxymidazolam Ur, GC/MS NEGATIVE ng/mL (<50); Hydroxytriazolam NEGATIVE ng/mL (<50); Lorazepam, Ur GC/MS NEGATIVE ng/mL (<50); Morphine Urine >10000 ng/mL (<50); Nordiazepam, Confirm NEGATIVE ng/mL (<50); Norhydrocodone Conf Ur NEGATIVE ng/mL (<50); Noroxycodone Urine >10000 ng/mL (<50); Oxazepam Ur, GC/MS NEGATIVE ng/mL (<50); Oxycodone Urine >10000 ng/mL (<50); Oxymorph Urine 1510 ng/mL (<50); Pentobarbital, Urine Conf NEGATIVE ng/mL (<100); Phenobarbital, Urine NEGATIVE ng/mL (<100); Secobarbital, Urine Conf NEGATIVE ng/mL (<100); Temazepam, Confirm NEGATIVE ng/mL (<50)
[2023-02-06] MEDS: cefTRIAXone SODIUM 2,000 MG in DEXTROSE 5% 50 ML IV SCH (13:30)
[2023-02-06] MEDS ORDERED: DICYCLOMINE HCL 10 MG CAP PO ONE (13:45)
--- NOTE | 2023-02-06 14:14 | Hospitalist Progress Note ---
Date of Service February 06, 2023 Assessment & Plan (1) Acute hepatic encephalopathy: Plan: Patient has a history of [place], presents with acute encephalopathy. Although at home, on a lot of medications like opiates barbiturates benzos which could be contributing as well. Ammonia level elevated upon admission, but trending down CT scan of the head did not show any acute pathology. Continue Lactulose We will continue to monitor ammonia level. Encephlaopathy has resolved While in hospital, will taper down her opiates., According to the she takes 30 mg of morphine in the morning 30 mg of OxyCodone in the morning and also 30 mg of morphine at night and 15 mg of oxycodone at night We will continue only 15 mg OxyContin every 6 as needed for now (2) DUNAWAY (nonalcoholic steatohepatitis): Plan: DUNAWAY cirrhosis with acute on chronic hepatic encephalopathy Leukocytosis of 15.8 with neutrophilic predominance but no left shift Last EGD 11/2022 at [facility], has known esophageal varices and a small gastric ulcer - Last colo [facility] 09/16 for RUBEN: Diverticulosis without diverticulitis. - Last prior CT of the abdomen pelvis has shown cirrhosis with portal hypertension, nonocclusive portal splenic thrombus Patient is on spironolactone 50 mg twice daily and torsemide 40 mg p.o. bid No hematemesis, melena, hematochezia in the last week -Continue Lactulose Continue Xifaxan Continue Linzess Continue Carafate, Protonix twice daily GI has followed) colonoscopy in August; however [facility] hepatology has requested keeping all of her routine GI and hepatology care within [facility] system for continuity as much as possible and failure to keep routine care within their system could result in dismissal MELDNa score 30 (creatinine 2.84, bilirubin 3.1, INR 1.7, sodium 129) 52% 3- month mortality Child-Chaudhari class C (bilirubin greater than 3, albumin less than 2.8, INR 1.7, moderate ascites with at least grade 12 encephalopathy) Message has been left with patient's [facility] hepatology group Dr. Prado/Dr. Liz for low back due to her progressive worsening and increased Child-Chaudhari/MELD scores. Pending callback Diagnostic and therapeutic paracentesis done (3) UTI (urinary tract infection): Plan: Urinalysis shows evidence of UTI Started empirically on IV ceftriaxone Monitor urine cultures (4) Diabetes mellitus: Plan: Recent A1c's have been normal We will hold long-acting; conservative sliding scale ordered based on weight - CF 45, carb ratio 15 Goal BSG [id number] -Glucose checks AC/at bedtime or every 6 hours if NPO (5) Ascites: Plan: s/p paracentesis (6) Thrombocytopenia: Plan: from liver disease monitor (7) Hepatic encephalopathy: (8) History of CVA (cerebrovascular accident): (9) Cancer: (10) Diabetes mellitus, type 2: (11) Esophageal varices: (12) Neurogenic bladder: (13) Neuropathy: (14) JOANNA (acute kidney injury): Plan DVT prophylaxis: Pharmacoppx deferred due to history of bleeding and varices Diet: Low-salt Disposition: telemetry for acute renal failure, cirrhosis with electrolyte abnormalities CODE STATUS: Full code Admission and Anticipated Discharge Date Admission Date: February 04, 2023 Subjective patient seen and examined, said she had some abdominal cramps Review of Systems Review of Systems: All systems reviewed are negative, apart from the ones contained in the history. Physical Exam Physical Exam: The patient is awake, alert and oriented 3, well developed and well nourished, normocephalic and atraumatic, lying in bed and in no acute distress. HEENT--PERRL, EOMI, mucous membranes and oropharynx mildly dry Neck--supple. No JVD. No bruits. Thyroid normal, trachea midline, no adenopathy. Heart--normal S1 and S2. No murmurs, rubs or gallops. Lungs--clear bilaterally, no respiratory distress, no accessory muscle use. Abdomen--distended Extremities--no cyanosis or clubbing. No edema. Dermatologic--normal skin turgor, normal color, no abnormal lymph nodes, no rash. Neurologic--cranial nerves II through XII grossly intact. Rheumatologic--normal range of motion. Psychiatric--normal affect. Results & Data Results & Data Vital Signs (Past 12 Hours) Vital Signs Temp Pulse Resp BP BP Pulse Ox O2 Del Method 02/06/23 11:32 98.2 F 87 20 134/77 96 Room Air 02/06/23 07:29 98.2 F 90 20 117/63 96 Room Air 06/15/23 02:59 99.1 F 90 20 107/55 L 97 Room Air PG Care Time/CCT Total # of Minutes Spent Total Time Spent with Patient: Total time spent is greater than 50% in coordination of care (as documented) at patient's floor/unit and/or counseling patient: Coding Level of Care Code 39990 SUB INP/OBS CARE 2/35MIN Diagnoses Acute hepatic encephalopathy K76.82 DUNAWAY (nonalcoholic steatohepatitis) K75.81 UTI (urinary tract infection) N39.0 Diabetes mellitus E11.9 Ascites R18.8 Thrombocytopenia D69.6 Hepatic encephalopathy K72.90 History of CVA (cerebrovascular accident) Z86.73 Cancer C80.1 Diabetes mellitus, type 2 E11.9 Esophageal varices I85.00 Neurogenic bladder N31.9 Neuropathy G62.9 JOANNA (acute kidney injury) N17.9 Time Spent (min) 35
[2023-02-06] MEDS: MELATONIN 3 MG TAB PO PRN (21:17)
[2023-02-07] MEDS: FAMOTIDINE 40 MG TABLET PO SCH (05:09)
[2023-02-07] MEDS: LEVOTHYROXINE SODIUM 150 MCG TABLET PO SCH (05:10)
[2023-02-07 06:53] LABS: Basophils # (auto) 0.03 K/uL (0-0.2); Basophils % (auto) 0.5 %; Eosinophils # (auto) 0.13 K/uL (0-0.50); Hematocrit (blood only) 24.1 % (37.0-47.0); Hemoglobin 7.7 g/dl (12.0-16.0); Immature Granulocytes # (auto) 0.09 K/uL (0.01-0.20); Immature Granulocytes % (auto) 1.4 %; Lymphocytes # (auto) 1.35 K/uL (1.2-3.4); Lymphocytes % (auto) 20.3 %; Mean Corpuscular Hemoglobin 28.2 pg (25.0-34.0); Mean Corpuscular Volume 88.3 fL (80.0-100.0); Mean Platelet Volume 9.4 fL (9.4-12.4); Monocytes # (auto) 0.72 K/uL (0.11-0.59); Monocytes % (auto) 10.8 %; Neutrophils # (auto) 4.33 K/uL (1.40-6.50); Platelet Count 78 K/uL (130-400); RDW Coefficient of Variation 16.1 % (11.5-14.5); RDW Standard Deviation 50.7 fL (36.4-46.3); Red Blood Count 2.73 M/uL (4.20-5.40); White Blood Count 6.65 K/ul (4.8-10.8)
[2023-02-07 07:18] LABS: Albumin Globulin Ratio 1.5 (0.9-2); Albumin Level 3.2 gm/dl (3.4-5.0); BUN Creatinine Ratio 17.1 (10-20); Bilirubin,Total 3.6 mg/dl (0.2-1.0); Calcium 8.6 mg/dl (8.6-10.3); Creatinine Clr Calc Pharmacy 103.1 ml/min; Est GFR (African American) 102.3 ml/min; Est GFR (Non-African American) 88.3 ml/min; Globulin 2.2 gm/dl (2.5-4.0); Potassium 3.4 mmol/L (3.5-5.1); Total Protein 5.4 gm/dl (6.0-8.3)
[2023-02-07 07:26] LABS: Polychromasia 1+
[2023-02-07] MEDS: CLOPIDOGREL BISULFATE 75 MG TAB PO SCH (08:22)
[2023-02-07] MEDS: rifAXIMin 550 MG TABLET PO SCH ×2 (08:22→21:14)
[2023-02-07] MEDS: VENLAFAXINE HCL XR 150 MG CAPXR PO SCH (08:22)
[2023-02-07] MEDS: VENLAFAXINE HCL XR 37.5 MG CAPXR PO SCH (08:22)
[2023-02-07] MEDS: SUCRALFATE 1 GM/10 ML UDC PO SCH ×4 (08:23→21:12)
[2023-02-07] MEDS: LACTULOSE SYRUP 30 GM/45 ML UDP PO SCH ×3 (08:23→21:13)
[2023-02-07] MEDS: PROMETHAZINE HCL 25 MG TAB PO PRN ×2 (08:27→21:44)
[2023-02-07] MEDS: POTASSIUM CHLORIDE CRTAB 20 MEQ TABCR PO SCH ×2 (08:27→17:56)
[2023-02-07] MEDS: INSULIN ASPART PER UNIT CHARGE SC SCH ×4 (08:54→21:13)
[2023-02-07] MEDS: oxyCODONE HCL IR 5 MG TAB (IMMEDIATE RELEASE) PO PRN ×2 (10:06→21:11)
--- NOTE | 2023-02-07 10:40 | Hospitalist Progress Note ---
Date of Service February 07, 2023 Assessment & Plan (1) Acute hepatic encephalopathy: Plan: Now resolved Patient has a history of Gillespie, presents with acute encephalopathy. Although at home, on a lot of medications like opiates barbiturates benzos which could be contributing as well. Ammonia level elevated upon admission, but trending down CT scan of the head did not show any acute pathology. Continue Lactulose, although she often refuses We will continue to monitor ammonia level. While in hospital, will continue to taper down her opiates., According to the she takes 30 mg of morphine in the morning 30 mg of OxyCodone in the morning and also 30 mg of morphine at night and 15 mg of oxycodone at night We will continue only 15 mg OxyContin every 6 as needed for now (2) GILLESPIE (nonalcoholic steatohepatitis): Plan: GILLESPIE cirrhosis with acute on chronic hepatic encephalopathy Leukocytosis of 15.8 with neutrophilic predominance but no left shift Last EGD 11/2022 at [facility], has known esophageal varices and a small gastric ulcer - Last colo [facility] 09/16 for RUBEN: Diverticulosis without diverticulitis. - Last prior CT of the abdomen pelvis has shown cirrhosis with portal hyperten juli, nonocclusive portal splenic thrombus Patient is on spironolactone 50 mg twice daily and torsemide 40 mg p.o. bid No hematemesis, melena, hematochezia in the last week -Continue Lactulose Continue Xifaxan Continue Linzess Continue Carafate, Protonix twice daily GI has followed) colonoscopy in August; however [facility] hepatology has requested keeping all of her routine GI and hepatology care within [facility] system for continuity as much as possible and failure to keep routine care within their system could result in dismissal Diagnostic and therapeutic paracentesis done (3) UTI (urinary tract infection): Plan: Urinalysis shows evidence of UTI Started empirically on IV ceftriaxone cultures negative for now (4) Diabetes mellitus: Plan: Recent A1c's have been normal We will hold long-acting; conservative sliding scale ordered based on weight - CF 45, carb ratio 15 Goal BSG 404320 -Glucose checks AC/at bedtime or every 6 hours if NPO (5) Ascites: Plan: s/p paracentesis (6) Thrombocytopenia: Plan: from liver disease monitor (7) Hepatic encephalopathy: Plan: Resolved (8) History of CVA (cerebrovascular accident): (9) Cancer: (10) Diabetes mellitus, type 2: (11) Esophageal varices: (12) Neurogenic bladder: (13) Neuropathy: (14) JOANNA (acute kidney injury): Plan DVT prophylaxis: Pharmacoppx deferred due to history of bleeding and varices Diet: Low-salt Disposition: telemetry for acute renal failure, cirrhosis with electrolyte abnormalities CODE STATUS: Full code Hopefully d/c to SNF Admission and Anticipated Discharge Date Admission Date: February 04, 2023 Subjective patient seen and examined, worried about getting outpatient evaluation from a [employer] Systems [employer]ic Review of Systems Review of Systems: All systems reviewed are negative, apart from the ones contained in the history. Physical Exam Physical Exam: The patient is awake, alert and oriented 3, well developed and well nourished, normocephalic and atraumatic, lying in bed and in no acute distress. HEENT--PERRL, EOMI, mucous membranes and oropharynx mildly dry Neck--supple. No JVD. No bruits. Thyroid normal, trachea midline, no adenopathy. Heart--normal S1 and S2. No murmurs, rubs or gallops. Lungs--clear bilaterally, no respiratory distress, no accessory muscle use. Abdomen--distended Extremities--no cyanosis or clubbing. No edema. Dermatologic--normal skin turgor, normal color, no abnormal lymph nodes, no rash. Neurologic--cranial nerves II through XII grossly intact. Rheumatologic--normal range of motion. Psychiatric--normal affect. Results & Data Results & Data Vital Signs (Past 12 Hours) Vital Signs Temp Pulse Pulse Resp BP Pulse Ox O2 Del Method 02/07/23 07:45 78 02/07/23 07:27 98.2 F 83 18 148/77 H 98 Room Air 02/07/23 03:45 98.6 F 81 18 144/80 H 95 Room Air 02/06/23 23:00 87 PG Care Time/CCT Total # of Minutes Spent Total Time Spent with Patient: Total time spent is greater than 50% in coordination of care (as documented) at patient's floor/unit and/or counseling patient: Coding Level of Care Code 79821 SUB INP/OBS CARE 2/35MIN Diagnoses Acute hepatic encephalopathy K76.82 GILLESPIE (nonalcoholic steatohepatitis) K75.81 UTI (urinary tract infection) N39.0 Diabetes mellitus E11.9 Ascites R18.8 Thrombocytopenia D69.6 Hepatic encephalopathy K72.90 History of CVA (cerebrovascular accident) Z86.73 Cancer C80.1 Diabetes mellitus, type 2 E11.9 Esophageal varices I85.00 Neurogenic bladder N31.9 Neuropathy G62.9 JOANNA (acute kidney injury) N17.9 Time Spent (min) 35
[2023-02-07] MEDS: cefTRIAXone SODIUM 2,000 MG in DEXTROSE 5% 50 ML IV SCH (13:53)
[2023-02-07] MEDS ORDERED: FAMOTIDINE 40 MG TABLET PO ONE (20:30)
[2023-02-07] MEDS ORDERED: CALCIUM CARBONATE 500 MG CHEWABLE TAB PO ONE (20:30)
[2023-02-07] MEDS: MELATONIN 3 MG TAB PO PRN (21:11)
[2023-02-07] MEDS: ONDANSETRON INJ 2 MG/ML 2 ML VIAL IV PRN (21:12)
[2023-02-07] MEDS: rOPINIRole HCL 2 MG TABLET PO PRN (21:12)
[2023-02-07] MEDS: SPIRONOLACTONE 25 MG TAB PO SCH (21:14)
[2023-02-07] MEDS: TORSEMIDE 20 MG TAB PO SCH (21:15)
[2023-02-08] MEDS: LEVOTHYROXINE SODIUM 150 MCG TABLET PO SCH (06:10)
[2023-02-08] MEDS: FAMOTIDINE 40 MG TABLET PO SCH (06:10)
[2023-02-08 06:25] LABS: Hematocrit (blood only) 25.2 % (37.0-47.0); Hemoglobin 7.8 g/dl (12.0-16.0); Mean Corpuscular Hemoglobin 28.3 pg (25.0-34.0); Mean Corpuscular Volume 91.3 fL (80.0-100.0); Mean Platelet Volume 9.4 fL (9.4-12.4); Platelet Count 66 K/uL (130-400); RDW Coefficient of Variation 15.8 % (11.5-14.5); RDW Standard Deviation 51.8 fL (36.4-46.3); Red Blood Count 2.76 M/uL (4.20-5.40); White Blood Count 5.41 K/ul (4.8-10.8)
[2023-02-08 06:55] LABS: Albumin Globulin Ratio 1.3 (0.9-2); Albumin Level 3.1 gm/dl (3.4-5.0); Calcium 8.8 mg/dl (8.6-10.3); Creatinine Clr Calc Pharmacy 109.9 ml/min; Est GFR (African American) 110.4 ml/min; Est GFR (Non-African American) 95.2 ml/min; Globulin 2.4 gm/dl (2.5-4.0); Potassium 3.1 mmol/L (3.5-5.1); Total Protein 5.5 gm/dl (6.0-8.3)
[2023-02-08] MEDS ORDERED: POTASSIUM CHLORIDE CRTAB 20 MEQ TABCR PO STA (07:16)
[2023-02-08] MEDS: VENLAFAXINE HCL XR 150 MG CAPXR PO SCH (08:46)
[2023-02-08] MEDS: TORSEMIDE 20 MG TAB PO SCH ×2 (08:46→21:03)
[2023-02-08] MEDS: VENLAFAXINE HCL XR 37.5 MG CAPXR PO SCH (08:46)
[2023-02-08] MEDS: rifAXIMin 550 MG TABLET PO SCH ×2 (08:47→20:59)
[2023-02-08] MEDS: POTASSIUM CHLORIDE CRTAB 20 MEQ TABCR PO SCH ×2 (08:47→17:20)
[2023-02-08] MEDS: SPIRONOLACTONE 25 MG TAB PO SCH ×2 (08:47→21:03)
[2023-02-08] MEDS: SUCRALFATE 1 GM/10 ML UDC PO SCH ×4 (08:47→20:57)
[2023-02-08] MEDS: LACTULOSE SYRUP 30 GM/45 ML UDP PO SCH ×3 (08:47→20:57)
[2023-02-08] MEDS: CLOPIDOGREL BISULFATE 75 MG TAB PO SCH (08:47)
[2023-02-08] MEDS: INSULIN ASPART PER UNIT CHARGE SC SCH ×4 (09:31→20:13)
[2023-02-08] MEDS: cefTRIAXone SODIUM 2,000 MG in DEXTROSE 5% 50 ML IV SCH (13:44)
--- NOTE | 2023-02-08 15:26 | Hospitalist Progress Note ---
Date of Service February 08, 2023 Assessment & Plan (1) Acute hepatic encephalopathy: Plan: Now resolved Patient has a history of Gillespie, presents with acute encephalopathy. Although at home, on a lot of medications like opiates barbiturates benzos which could be contributing as well. Ammonia level elevated upon admission, but trending down CT scan of the head did not show any acute pathology. Continue Lactulose, although she often refuses We will continue to monitor ammonia level. While in hospital, will continue to taper down her opiates., According to the she takes 30 mg of morphine in the morning 30 mg of OxyCodone in the morning and also 30 mg of morphine at night and 15 mg of oxycodone at night We will continue only 15 mg OxyContin every 6 as needed for now (2) GILLESPIE (nonalcoholic steatohepatitis): Plan: GILLESPIE cirrhosis with acute on chronic hepatic encephalopathy Leukocytosis of 15.8 with neutrophilic predominance but no left shift Last EGD 11/2022 at [facility], has known esophageal varices and a small gastric ulcer - Last colo [facility] 09/16 for RUBEN: Diverticulosis without diverticulitis. - Last prior CT of the abdomen pelvis has shown cirrhosis with portal hyperten juli, nonocclusive portal splenic thrombus Patient is on spironolactone 50 mg twice daily and torsemide 40 mg p.o. bid No hematemesis, melena, hematochezia -Continue Lactulose Continue Xifaxan Continue Linzess Continue Carafate, famotidine GI has followed) colonoscopy in August; however [facility] hepatology has requested keeping all of her routine GI and hepatology care within [facility] system for continuity as much as possible and failure to keep routine care within their system could result in dismissal Diagnostic and therapeutic paracentesis done (3) UTI (urinary tract infection): Plan: Urinalysis shows evidence of UTI Started empirically on IV ceftriaxone cultures negative for now (4) Diabetes mellitus: Plan: Recent A1c's have been normal We will hold long-acting; conservative sliding scale ordered based on weight - CF 45, carb ratio 15 Goal BSG 567688 -Glucose checks AC/at bedtime or every 6 hours if NPO (5) Ascites: Plan: s/p paracentesis (6) Thrombocytopenia: Plan: from liver disease monitor (7) Hepatic encephalopathy: Plan: Resolved (8) History of CVA (cerebrovascular accident): (9) Cancer: (10) Diabetes mellitus, type 2: (11) Esophageal varices: (12) Neurogenic bladder: (13) Neuropathy: (14) JOANNA (acute kidney injury): Plan DVT prophylaxis: Pharmacoppx deferred due to history of bleeding and varices Diet: Low-salt Disposition: telemetry for acute renal failure, cirrhosis with electrolyte abnormalities CODE STATUS: Full code Hopefully d/c to SNF on friday Admission and Anticipated Discharge Date Admission Date: February 04, 2023 Subjective patient seen and examined, worried about itchy eyes today Review of Systems Review of Systems: All systems reviewed are negative, apart from the ones contained in the history. Physical Exam Physical Exam: The patient is awake, alert and oriented 3, well developed and well nourished, normocephalic and atraumatic, lying in bed and in no acute distress. HEENT--PERRL, EOMI, mucous membranes and oropharynx mildly dry Neck--supple. No JVD. No bruits. Thyroid normal, trachea midline, no adenopathy. Heart--normal S1 and S2. No murmurs, rubs or gallops. Lungs--clear bilaterally, no respiratory distress, no accessory muscle use. Abdomen--distended Extremities--no cyanosis or clubbing. No edema. Dermatologic--normal skin turgor, normal color, no abnormal lymph nodes, no rash. Neurologic--cranial nerves II through XII grossly intact. Rheumatologic--normal range of motion. Psychiatric--normal affect. Results & Data Results & Data Vital Signs (Past 12 Hours) Vital Signs Temp Pulse Pulse Resp BP Pulse Ox O2 Del Method 02/08/23 15:08 98.4 F 80 18 120/68 95 Room Air 02/08/23 12:18 98.1 F 86 17 128/72 100 Room Air 02/08/23 07:30 79 02/08/23 07:16 99.1 F 81 18 139/77 98 Room Air PG Care Time/CCT Total # of Minutes Spent Total Time Spent with Patient: Total time spent is greater than 50% in coordination of care (as documented) at patient's floor/unit and/or counseling patient: Coding Level of Care Code 33622 SUB INP/OBS CARE 2/35MIN Diagnoses Acute hepatic encephalopathy K76.82 GILLESPIE (nonalcoholic steatohepatitis) K75.81 UTI (urinary tract infection) N39.0 Diabetes mellitus E11.9 Ascites R18.8 Thrombocytopenia D69.6 Hepatic encephalopathy K72.90 History of CVA (cerebrovascular accident) Z86.73 Cancer C80.1 Diabetes mellitus, type 2 E11.9 Esophageal varices I85.00 Neurogenic bladder N31.9 Neuropathy G62.9 JOANNA (acute kidney injury) N17.9 Time Spent (min) 35
[2023-02-08] MEDS: oxyCODONE HCL IR 5 MG TAB (IMMEDIATE RELEASE) PO PRN (20:58)
[2023-02-08] MEDS: MELATONIN 3 MG TAB PO PRN (20:58)
[2023-02-08] MEDS: rOPINIRole HCL 2 MG TABLET PO PRN (20:58)
[2023-02-09] MEDS: LEVOTHYROXINE SODIUM 150 MCG TABLET PO SCH (06:32)
[2023-02-09] MEDS: FAMOTIDINE 40 MG TABLET PO SCH (06:32)
[2023-02-09] MEDS: VENLAFAXINE HCL XR 150 MG CAPXR PO SCH (08:40)
[2023-02-09] MEDS: SUCRALFATE 1 GM/10 ML UDC PO SCH ×2 (08:40→12:02)
[2023-02-09] MEDS: LACTULOSE SYRUP 30 GM/45 ML UDP PO SCH ×2 (08:40→14:17)
[2023-02-09] MEDS: rifAXIMin 550 MG TABLET PO SCH (08:40)
[2023-02-09] MEDS: TORSEMIDE 20 MG TAB PO SCH (08:40)
[2023-02-09] MEDS: POTASSIUM CHLORIDE CRTAB 20 MEQ TABCR PO SCH (08:40)
[2023-02-09] MEDS: SPIRONOLACTONE 25 MG TAB PO SCH (08:41)
[2023-02-09] MEDS: VENLAFAXINE HCL XR 37.5 MG CAPXR PO SCH (08:41)
[2023-02-09] MEDS: CLOPIDOGREL BISULFATE 75 MG TAB PO SCH (08:41)
[2023-02-09] MEDS: INSULIN ASPART PER UNIT CHARGE SC SCH ×2 (08:47→12:01)
--- NOTE | 2023-02-09 13:29 | Discharge Summary ---
Date of Service February 09, 2023 Admission HPI Per Admitting Provider Chaparrita is a 43-year-old female with a past medical history of Dunaway recently admitted from 01/08 - 01/10 for low back pain, lethargy, and hypotension with increased confusion. During that hospital admission she was hypotensive with hepatic encephalopathy and an ammonia of 154 with only 1 bowel movement a week exacerbated by opioid use, had notable sedation with polypharmacy, iron deficiency anemia, and GI bleeding that did not require endoscopy in which improved on PPI twice daily with Carafate added as adjunct. Chaparrita Teran presents to the ER 02/04 for confusion. Morning of admission she had a fall around 5:30 in the morning, fall was unwitnessed and while she did not lose consciousness she reports she did hit her head. found her talking to a water bottle thinking she was in a doctor's office. manages her opioid medications, but is not sure whether patient was taking her other medications properly. She is a [facility] GI/hepatology patient. She notes she has been peeing less than normal, urine has been more dark? Odoriferous. Denies fever/chills. Denies cough Per Pt with at bedside: Fell this morning against gun case. Was found on the ground talking to a water bottle She has ahistory of NAFLD. Denies ETOH use Significantly worsening over the last 3 months, much worse in the last week Weak, has trouble standing, has trouble walking at baseline but cannot support her weight or even sit up on the toilet with her own strength in the last week Seems like she drifts and daydreams in and out, is frequently very confused at home which is worse in the last week has been giving her the full 90mg of lactuolose daily total (uses the crystalose version). Has been 'going ot the bathroom everywhere'. Falls off the toilet and cannot sit up. Having bowel movements continuously for the last week - Peeing less often in the last week. No dysuria. - No cough, chest pain, chest pressure, nausea, vomiting - Has been on water pills to reduce fluid from legs. Legs seems worse than normal per her Abdomen is the worst it has ever been, significantly swollen. Abdomen is not tender, no warmth/redness/ They note she did have some medication changes after last hospitalization MS Contin went from 30mg q8h to 30mg q12h. Oxycodone 15mg q6h PRN. Has not been taking this lately due to sedation. Not sure about other mediscations Sees [facility] Hepatology. Sees Dr. Mathias [facility] and a doctor in [place] that she does not remember the name of (?Dr. Aaron) and Dr. Grider. Per her they are waiting for he rto worsen before making any interventions/changes. No tsure when next followup appt it. Medical History: Reviewed Medications: Reviewed Surgical History: Reviewed Family history: Reviewed Allergies: Reviewed Social History: Denies tobacco/alcohol Code Status: Full code Principal Diagnosis Acute hepatic encephalopathy Discharge Exam The patient is awake, alert and oriented 3, well developed and well nourished, normocephalic and atraumatic, lying in bed and in no acute distress. HEENT--PERRL, EOMI, mucous membranes and oropharynx mildly dry Neck--supple. No JVD. No bruits. Thyroid normal, trachea midline, no adenopathy. Heart--normal S1 and S2. No murmurs, rubs or gallops. Lungs--clear bilaterally, no respiratory distress, no accessory muscle use. Abdomen--distended Extremities--no cyanosis or clubbing. No edema. Dermatologic--normal skin turgor, normal color, no abnormal lymph nodes, no rash. Neurologic--cranial nerves II through XII grossly intact. Rheumatologic--normal range of motion. Psychiatric--normal affect. Discharge Data Allergies Allergy/AdvReac Type Severity Reaction Status Date / Time codeine Allergy Unknown Hives, Verified 02/04/23 13:33 [From Tylenol-Codeine #3] skin redness (Tyenol #3) Consultations 02/04/23 12:35 ED Decision to Admit Stat 02/04/23 13:59 Consult Gastroenterology Routine Ordered Studies 02/04/23 09:41 CT head/brain wo con Urgent 02/04/23 11:39 CT abd pelvis wo con Stat 02/05/23 10:30 IR paracentesis abd w/img US Routine Hospital Course (1) Acute hepatic encephalopathy: Now resolved Patient has a history of Dunaway, presents with acute encephalopathy. Although at home, on a lot of medications like opiates barbiturates benzos which could be contributing as well. Ammonia level elevated upon admission, but trending down CT scan of the head did not show any acute pathology. Continue Lactulose, although she often refuses We will continue to monitor ammonia level. While in hospital, will continue to taper down her opiates., According to the she takes 30 mg of morphine in the morning 30 mg of OxyCodone in the morning and also 30 mg of morphine at night and 15 mg of oxycodone at night We will continue only 15 mg OxyContin every 6 as needed for now (2) DUNAWAY (nonalcoholic steatohepatitis): DUNAWAY cirrhosis with acute on chronic hepatic encephalopathy Leukocytosis of 15.8 with neutrophilic predominance but no left shift Last EGD 11/2022 at [facility], has known esophageal varices and a small gastric ulcer - Last colo [facility] 09/16 for RUBEN: Diverticulosis without diverticulitis. - Last prior CT of the abdomen pelvis has shown cirrhosis with portal hypertension, nonocclusive portal splenic thrombus Patient is on spironolactone 50 mg twice daily and torsemide 40 mg p.o. bid No hematemesis, melena, hematochezia -Continue Lactulose Continue Xifaxan Continue Linzess Continue Carafate, famotidine GI has followed) colonoscopy in August; however [facility] hepatology has requested keeping all of her routine GI and hepatology care within [facility] system for continuity as much as possible and failure to keep routine care within their system could result in dismissal Diagnostic and therapeutic paracentesis done (3) UTI (urinary tract infection): Urinalysis shows evidence of UTI Started empirically on IV ceftriaxone cultures negative for now (4) Diabetes mellitus: Recent A1c's have been normal We will hold long-acting; conservative sliding scale ordered based on weight - CF 45, carb ratio 15 Goal BSG [id number] -Glucose checks AC/at bedtime or every 6 hours if NPO (5) Ascites: s/p paracentesis (6) Thrombocytopenia: from liver disease monitor (7) Hepatic encephalopathy: Resolved (8) History of CVA (cerebrovascular accident): (9) Cancer: (10) Diabetes mellitus, type 2: (11) Esophageal varices: (12) Neurogenic bladder: (13) Neuropathy: (14) JOANNA (acute kidney injury): Plan DVT prophylaxis: Pharmacoppx deferred due to history of bleeding and varices Diet: Low-salt Disposition: telemetry for acute renal failure, cirrhosis with electrolyte abnormalities CODE STATUS: Full code Discharge to SNF Total Time Total Time Spent Total Time Spent (In Minutes): 35 Discharge Plan Discharge Items Patient Disposition: Transfer Long-Term Fac Reason For Visit: UTI,AOC,ENCEPHALOPATHY,DUNAWAY Discharge Diagnosis: hepatic encephalopathy, UTI Activity: Resume your previous activity Non-emergency contact: Primary Care Provider and Range Operator Call non-emergency contact if: you have any medication questions Follow-up/Referrals: Endy Stanley D.O. [Primary Care Provider] - Diet: Regular Addtl Attending Provider Instructions: please follow up with your county treasurer Pending Studies at Discharge: No Stand-Alone Forms: My [facility] Skilled Items Patient informed of condition?: Yes DNR: No Discharge Level of Care: Skilled Communicable Disease: No Discharge Prognosis: Stable Lines: None Urinary Catheter: No Medications and DC Order Prescriptions: Continued quetiapine 50 mg tablet 50 mg PO HS Qty: 30 5RF venlafaxine [Effexor XR] 150 mg capsule,extended release 24hr 150 mg PO QAM Rx Instructions: TAKE WITH 37.5MG Xifaxan 550 mg tablet 550 mg PO BID Linzess 290 mcg capsule 290 mcg PO QAM Rx Instructions: said she is still on this but has not been filled since 09/26/22 for 30 day supply. Tradjenta 5 mg tablet 5 mg PO QAM metformin 500 mg tablet extended release 24hr 500 mg PO BID Rx Instructions: This was on last list but I can not see that it has been filled. Combivent Respimat 20-100 mcg/actuation Mist 1 puff INHALATION QID PRN (Reason: Wheezing) zolmitriptan [Zomig] 5 mg tablet 5 mg PO UD PRN (Reason: migraine headache) Rx Instructions: 5 mg PO PRN migraine, may repeat after 2 hours prn promethazine 25 mg tablet 25 mg PO Q6H PRN (Reason: Nausea) magnesium 200 mg tablet 500 mg PO QAM famotidine 40 mg tablet 40 mg PO DAILY Rx Instructions: take this med daily before a meal oxycodone 15 mg Tablet 15 mg PO Q6H Rx Instructions: oxycodone IR potassium chloride 20 mEq tablet extended release 20 meq PO BIDM Rx Instructions: TAKE WITH 10MEQ cholecalciferol (vitamin D3) 125 mcg (5,000 unit) capsule 125 mcg PO DAILY valacyclovir 500 mg tablet 500 mg PO TID PRN (Reason: COLD SORE) clobetasol 0.05 % solution 1 applic TOPICAL DAILY PRN (Reason: SEBORRHEIC DERMATITIS) tretinoin 0.1 % Cream 1 applic TOPICAL HS PRN (Reason: Acne) fnoiqacrjv-auushtjeoqjqc-foce 50-325-40 mg tablet 2 tab PO Q6H PRN (Reason: Migraine Headache) clopidogrel 75 mg tablet 75 mg PO DAILY Qty: 30 0RF torsemide 20 mg tablet 40 mg PO BID Qty: 60 0RF ropinirole 2 mg tablet 4 mg PO HS PRN (Reason: Restless Leg(S)) Qty: 1 0RF spironolactone [Aldactone] 50 mg tablet 50 mg PO BID Qty: 60 0RF lactulose 10 gram/15 mL Solution 30 g PO TID Qty: 473 0RF levothyroxine 300 mcg tablet 300 mcg PO DAILY Rx Instructions: Per Dr 1st Discontinued Botox 200 unit recon soln 1 unit intradermal UD Rx Instructions: every 11 weeks omeprazole 40 mg capsule,delayed release(DR/EC) 40 mg PO BID gabapentin [Neurontin] 300 mg capsule 600 mg PO TID PRN (Reason: Pain) alprazolam [Xanax] 1 mg tablet 0.5 - 1 mg PO BID PRN (Reason: Anxiety) hydroxyzine HCl 25 mg tablet 25 mg PO HS tizanidine 4 mg tablet 4 mg PO Q6H PRN (Reason: Spasms) sucralfate 1 gram tablet 1 g PO QID Qty: 120 0RF morphine [MS Contin] 30 mg tablet extended release 15 mg PO Q12 MDD 3 tabs Rx Instructions: states this dose. Discharge Orders: Discharge Order (Routine); Ordered 02/09/23 Ordered By: Tere Carrion Admission Data Admit Date/Time: 02/04/23 13:51 Attending Provider: Tere Carrion Admit Provider: Davide Galvez Primary Care Provider: Endy Stanley Other Providers: Horacio Barrett ; Davide Galvez ; [facility] Other Interventions: Discharge Summary Assessment (RN) Last Done: 06/18/23 10:12 Coding Level of Care Code 00070 INP/OBS DISCH >30 MIN Diagnoses Acute hepatic encephalopathy K76.82 DUNAWAY (nonalcoholic steatohepatitis) K75.81 UTI (urinary tract infection) N39.0 Diabetes mellitus E11.9 Ascites R18.8 Thrombocytopenia D69.6 Hepatic encephalopathy K72.90 History of CVA (cerebrovascular accident) Z86.73 Cancer C80.1 Diabetes mellitus, type 2 E11.9 Esophageal varices I85.00 Neurogenic bladder N31.9 Neuropathy G62.9 JOANNA (acute kidney injury) N17.9 Time Spent (min) 35
[2023-02-09] MEDS: cefTRIAXone SODIUM 2,000 MG in DEXTROSE 5% 50 ML IV SCH (14:17)
== END 2023-02-09 16:28 | DRG 441 ==
LOC: ED 08:52 → 2E 13:51 → SUATTDRO 13:51 → 2E 15:12

== ENCOUNTER 2023-02-14 19:07 | Inpatient (IN) ==
[2023-02-14 20:04] LABS: Basophils # (auto) 0.07 K/uL (0-0.2); Basophils % (auto) 0.6 %; Eosinophils # (auto) 0.38 K/uL (0-0.50); Hematocrit (blood only) 28.6 % (37.0-47.0); Hemoglobin 8.9 g/dl (12.0-16.0); Immature Granulocytes # (auto) 0.06 K/uL (0.01-0.20); Immature Granulocytes % (auto) 0.5 %; Lymphocytes # (auto) 2.52 K/uL (1.2-3.4); Lymphocytes % (auto) 19.9 %; Mean Corpuscular Hemoglobin 28.1 pg (25.0-34.0); Mean Corpuscular Hgb Conc 31.1 g/dL (32.0-36.0); Mean Corpuscular Volume 90.2 fL (80.0-100.0); Mean Platelet Volume 10.5 fL (9.4-12.4); Monocytes # (auto) 1.79 K/uL (0.11-0.59); Monocytes % (auto) 14.1 %; Neutrophils # (auto) 7.84 K/uL (1.40-6.50); Neutrophils % (auto) 61.9 %; Platelet Count 132 K/uL (130-400); RDW Coefficient of Variation 16.9 % (11.5-14.5); RDW Standard Deviation 54.7 fL (36.4-46.3); Red Blood Count 3.17 M/uL (4.20-5.40); White Blood Count 12.66 K/ul (4.8-10.8)
[2023-02-14 20:18] LABS: Alanine Aminotransferase 75 U/L (7-52); Albumin Globulin Ratio 1.1 (0.9-2); Albumin Level 3.4 gm/dl (3.4-5.0); Alkaline Phosphatase 107 U/L (34-104); Anion Gap 9 (3-11); Aspartate Aminotransferase 105 U/L (13-39); BUN Creatinine Ratio 21.7 (10-20); Bilirubin,Total 3.8 mg/dl (0.2-1.0); Blood Urea Nitrogen 39 mg/dl (6-23); Calcium 9.6 mg/dl (8.6-10.3); Carbon Dioxide 32 mmol/L (21-32); Chloride 88 mmol/L (98-107); Est GFR (African American) 39.5 ml/min; Est GFR (Non-African American) 34.1 ml/min; Glucose 93 mg/dl (70-99(Fasting)); Magnesium 1.8 mg/dl (1.7-2.4); Potassium 4.4 mmol/L (3.5-5.1); Sodium 129 mmol/L (136-145); Total Protein 6.4 gm/dl (6.0-8.3)
[2023-02-14 20:24] LABS: Troponin I High Sensitivity 4.9 pg/ml (0-14)
[2023-02-14 20:44] LABS: INR 1.9 (0.9-1.1); Partial Thromboplastin Time 29.4 Seconds (21.0-31.0); Prothrombin Time 20.2 Seconds (9.0-12.0)
[2023-02-14] MEDS: SODIUM CHLORIDE 0.9% 1000ML 1,000 ML IV SCH (20:54)
[2023-02-14] MEDS ORDERED: SODIUM CHLORIDE 0.9% 1000ML 1,000 ML IV ONE (21:01)
[2023-02-14] MEDS ORDERED: cefTRIAXone SODIUM 2,000 MG/70 ML BAG IV STA (21:17)
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
[2023-02-14 22:11] LABS: Appearance Urine Clear (Clear); Bilirubin Urine Negative (Negative); Blood Urine Negative (Negative); Color Urine Dark Yellow; Glucose Urine UA Negative (Negative); Ketones Urine Trace (Negative); Leukocyte Esterase Urine Negative (Negative); Nitrite Urine Negative (Negative); Protein Urine Negative (Negative); Specific Gravity Urine 1.013 (1.000-1.030); Urobilinogen Urine Negative (Negative)
--- NOTE | 2023-02-14 22:30 | XRay Report ---
SINGLE VIEW CHEST CLINICAL HISTORY: Generalized weakness. FINDINGS: An AP, portable, upright chest radiograph is compared to study dated 02/04/2023. The cardiom ediastinal silhouette is unremarkable. There are low lung volumes. The lungs and pleural spaces are c lear. No pneumothorax is seen. The bony thorax is grossly intact. Fusion hardware is seen at the in t he lower cervical spine. Calcific tendinopathy is noted in the right shoulder. Cholecystectomy clips are seen in the right upper quadrant. IMPRESSION: Low lung volumes with no active disease in the chest. ACT 112: Negative or not required by law. Electronically signed by: Davide Vines M.D. 02/14/2023 10:29 PM
[2023-02-15] MEDS ORDERED: GLUCOSE 40% GEL 15 GM TUBE PO PRN (00:29)
[2023-02-15] MEDS ORDERED: IPRATROPIUM BROMIDE/ALBUTEROL respimat INH INH PRN (00:29)
[2023-02-15] MEDS ORDERED: CARBOHYDRATES FOR HYPOGLYCEMIA PO PRN (00:29)
[2023-02-15] MEDS ORDERED: GLUCOSE 10 TAB/TUBE PO PRN (00:29)
[2023-02-15] MEDS ORDERED: GLUCAGON FOR INJ 1 MG VIAL SQ PRN (00:29)
[2023-02-15] MEDS ORDERED: DEXTROSE 50% 50 ML SYRINGE IV PRN (00:29)
[2023-02-15] MEDS ORDERED: Ipratropium HFA Inhaler (Combivent Respimat P&T Subs) INH PRN (01:14)
[2023-02-15] MEDS ORDERED: Albuterol HFA 8 GM Inhaler (Combivent Respimat P&T Subs) INH PRN (01:14)
[2023-02-15] MEDS: SODIUM CHLORIDE 0.9% 1000ML 1,000 ML IV SCH ×3 (01:22→05:21)
[2023-02-15] MEDS: LEVOTHYROXINE SODIUM 150 MCG TABLET PO SCH (05:21)
[2023-02-15 08:08] LABS: Albumin Level 2.9 gm/dl (3.4-5.0); BUN Creatinine Ratio 24.7 (10-20); Basophils # (auto) 0.04 K/uL (0-0.2); Basophils % (auto) 0.4 %; Bilirubin,Total 3.9 mg/dl (0.2-1.0); Calcium 8.9 mg/dl (8.6-10.3); Creatinine Clr Calc Pharmacy 53.1 ml/min; Eosinophils # (auto) 0.25 K/uL (0-0.50); Eosinophils % (auto) 2.8 %; Est GFR (African American) 49.3 ml/min; Est GFR (Non-African American) 42.5 ml/min; Globulin 2.9 gm/dl (2.5-4.0); Hematocrit (blood only) 26.1 % (37.0-47.0); Hemoglobin 8.4 g/dl (12.0-16.0); Immature Granulocytes # (auto) 0.04 K/uL (0.01-0.20); Immature Granulocytes % (auto) 0.4 %; Lymphocytes # (auto) 1.43 K/uL (1.2-3.4); Lymphocytes % (auto) 15.9 %; Magnesium 1.6 mg/dl (1.7-2.4); Mean Corpuscular Hemoglobin 28.1 pg (25.0-34.0); Mean Corpuscular Hgb Conc 32.2 g/dL (32.0-36.0); Mean Corpuscular Volume 87.3 fL (80.0-100.0); Mean Platelet Volume 10.4 fL (9.4-12.4); Monocytes # (auto) 1.33 K/uL (0.11-0.59); Monocytes % (auto) 14.8 %; Neutrophils # (auto) 5.89 K/uL (1.40-6.50); Neutrophils % (auto) 65.7 %; Platelet Count 103 K/uL (130-400); Potassium 4.1 mmol/L (3.5-5.1); RDW Coefficient of Variation 16.7 % (11.5-14.5); RDW Standard Deviation 51.8 fL (36.4-46.3); Red Blood Count 2.99 M/uL (4.20-5.40); Total Protein 5.8 gm/dl (6.0-8.3); White Blood Count 8.98 K/ul (4.8-10.8)
[2023-02-15 08:15] LABS: Partial Thromboplastin Ratio 1.1; Partial Thromboplastin Time 30.8 Seconds (21.0-31.0); Prothrombin Time 21.1 Seconds (9.0-12.0)
[2023-02-15] MEDS: LACTULOSE SYRUP 30 GM/45 ML UDP PO SCH ×3 (08:26→21:47)
[2023-02-15] MEDS: CLOPIDOGREL BISULFATE 75 MG TAB PO SCH (08:27)
[2023-02-15] MEDS: FAMOTIDINE 40 MG TABLET PO SCH (08:27)
[2023-02-15] MEDS: rifAXIMin 550 MG TABLET PO SCH ×2 (08:27→21:47)
[2023-02-15] MEDS: CHOLECALCIFEROL 5,000 UNITS 125 MCG TAB PO SCH (08:27)
[2023-02-15] MEDS: INSULIN ASPART PER UNIT CHARGE SC SCH ×4 (08:31→21:41)
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
[2023-02-15] MEDS: ONDANSETRON INJ 2 MG/ML 2 ML VIAL IV PRN ×3 (09:04→21:41)
[2023-02-15] MEDS: MAGNESIUM SULFATE / D5W 1 GM/100 ML BAG IV SCH ×5 (09:07→22:12)
[2023-02-15] MEDS ORDERED: LORazepam 1 MG TAB PO STA (10:11)
[2023-02-15] MEDS: oxyCODONE HCL IR 5 MG TAB (IMMEDIATE RELEASE) PO SCH ×3 (11:13→22:15)
--- NOTE | 2023-02-15 11:48 | XRay Report ---
XR KUB/Abdomen 1 view CLINICAL HISTORY: eval for clips TECHNIQUE: 1 view of the abdomen was obtained. Comparison: None available at the time of this dictation. FINDINGS: Cholecystomy clips are seen in the right upper quadrant. Postsurgical changes are seen about the stom ach likely due to gastric bypass surgery The osseous structures are grossly unremarkable. The bowel g as pattern is nonobstructive. A moderate amount of stool is noted within the large bowel. IMPRESSION: Cholecystomy clips are seen. No evidence of endoscopic clips on current exam or chest radiograph of . ACT 112: Negative or not required by law. Electronically signed by: Mohit Perez M.D. 02/15/2023 11:46 AM
--- NOTE | 2023-02-15 14:26 | Magnetic Resonance Report ---
MR brain wo con CLINICAL HISTORY: CT with basal ganglia infarct, confused TECHNIQUE: Multiplanar and multisequence MR images of the brain were obtained without intravenous con trast. Comparison: Comparison is made to CT head 02/14/2023 and MRI brain 05/18/2020 FINDINGS: No abnormal restricted diffusion is identified. Foci of T2 and FLAIR hyperintensity are noted in the paraventricular areas consistent with chronic small vessel ischemic disease. Focal encephalomalacia i s in the left basal ganglia compatible with lacunar infarct. The ventricular system is normal in appe arance. No mass is seen. There is no mass effect or midline shift. There is no evidence of acute intr aparenchymal hemorrhage. No extra axial fluid collections are seen. The corpus callosum, pituitary gl and, and cerebellar tonsils appear grossly unremarkable. Flow voids of the major intracranial arterial vessels are identified. The imaged portions of the para nasal sinuses, mastoid air cells, and orbits are unremarkable. IMPRESSION: Old lacunar infarct in the paranasal. No evidence of acute infarct. ACT 112: Negative or not required by law. Electronically signed by: Mohit Perez M.D. 02/15/2023 2:24 PM
[2023-02-15] MEDS ORDERED: BENZOCAINE 20% (ORAJEL) 11.9 GM TUBE MT PRN (15:06)
--- NOTE | 2023-02-15 17:35 | Electrocardiogram Report ---
Test Reason : Blood Pressure : / mmHG Vent. Rate : 082 BPM Atrial Rate : 082 BPM P-R Int : 138 ms QRS Dur : 092 ms QT Int : 400 ms P-R-T Axes : 016 034 037 degrees QTc Int : 468 ms Normal sinus rhythm Cannot rule out Anterior infarct (cited on or before 14-FEB-2023) Abnormal ECG When compared with ECG of 04-FEB-2023 09:51, Questionable change in initial forces of Anteroseptal leads Confirmed by Howard Pagan [id number]) on 02/15/2023 5:34:54 PM Referred By: [facility] Confirmed By:Howard Pagan
--- NOTE | 2023-02-15 18:09 | Billing Data ---
Date of Service February 15, 2023 Coding Level of Care Code 55412 SUB INP/OBS CARE MIN
[2023-02-15] MEDS: DICLOFENAC SOD 1% GEL 100 GM TUBE EXT SCH (21:44)
[2023-02-15] MEDS: QUEtiapine FUMARATE 25 MG TABLET PO SCH (21:47)
[2023-02-15] MEDS ORDERED: cefTRIAXone SODIUM 2,000 MG in DEXTROSE 5% 50 ML IV SCH (22:00)
[2023-02-16] MEDS: oxyCODONE HCL IR 5 MG TAB (IMMEDIATE RELEASE) PO SCH ×4 (05:27→22:44)
[2023-02-16] MEDS: LEVOTHYROXINE SODIUM 150 MCG TABLET PO SCH (05:27)
[2023-02-16 05:46] LABS: Basophils # (auto) 0.03 K/uL (0-0.2); Basophils % (auto) 0.5 %; Eosinophils # (auto) 0.27 K/uL (0-0.50); Eosinophils % (auto) 4.2 %; Hematocrit (blood only) 26.2 % (37.0-47.0); Hemoglobin 8.1 g/dl (12.0-16.0); Immature Granulocytes # (auto) 0.01 K/uL (0.01-0.20); Immature Granulocytes % (auto) 0.2 %; Lymphocytes % (auto) 29.4 %; Mean Corpuscular Hemoglobin 27.6 pg (25.0-34.0); Mean Corpuscular Hgb Conc 30.9 g/dL (32.0-36.0); Mean Corpuscular Volume 89.4 fL (80.0-100.0); Monocytes % (auto) 20.1 %; Neutrophils # (auto) 2.95 K/uL (1.40-6.50); Neutrophils % (auto) 45.6 %; Platelet Count 78 K/uL (130-400); RDW Coefficient of Variation 16.8 % (11.5-14.5); RDW Standard Deviation 54.3 fL (36.4-46.3); Red Blood Count 2.93 M/uL (4.20-5.40); White Blood Count 6.46 K/ul (4.8-10.8)
[2023-02-16 06:05] LABS: Albumin Globulin Ratio 0.9 (0.9-2); Albumin Level 2.9 gm/dl (3.4-5.0); BUN Creatinine Ratio 22.6 (10-20); Bilirubin,Total 3.2 mg/dl (0.2-1.0); Calcium 8.9 mg/dl (8.6-10.3); Est GFR (Non-African American) 53.5 ml/min; Globulin 3.1 gm/dl (2.5-4.0); Magnesium 2.3 mg/dl (1.7-2.4); Potassium 3.4 mmol/L (3.5-5.1)
[2023-02-16 06:19] LABS: INR 1.9 (0.9-1.1); Partial Thromboplastin Ratio 1.1; Partial Thromboplastin Time 29.9 Seconds (21.0-31.0); Prothrombin Time 20.2 Seconds (9.0-12.0)
[2023-02-16 06:25] LABS: Ferritin 33.3 ng/ml (8-388)
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
[2023-02-16] MEDS: CHOLECALCIFEROL 5,000 UNITS 125 MCG TAB PO SCH (08:19)
[2023-02-16] MEDS: FAMOTIDINE 40 MG TABLET PO SCH (08:19)
[2023-02-16] MEDS: rifAXIMin 550 MG TABLET PO SCH ×2 (08:19→22:44)
[2023-02-16] MEDS: LACTULOSE SYRUP 30 GM/45 ML UDP PO SCH ×3 (08:19→20:09)
[2023-02-16] MEDS: DICLOFENAC SOD 1% GEL 100 GM TUBE EXT SCH ×4 (08:19→22:45)
[2023-02-16] MEDS: CLOPIDOGREL BISULFATE 75 MG TAB PO SCH (08:19)
[2023-02-16] MEDS: ONDANSETRON INJ 2 MG/ML 2 ML VIAL IV PRN ×3 (08:22→22:45)
[2023-02-16] MEDS: INSULIN ASPART PER UNIT CHARGE SC SCH ×4 (08:24→20:49)
[2023-02-16] MEDS ORDERED: IRON SUCROSE 300 MG in SODIUM CHLORIDE 0.9% 250 ML IV ONE (08:30)
[2023-02-16] MEDS ORDERED: LORazepam 0.5 MG TAB PO STA (17:15)
--- NOTE | 2023-02-16 18:53 | Billing Data ---
Date of Service February 16, 2023 Coding Level of Care Code 02901 SUB INP/OBS CARE
[2023-02-16] MEDS: QUEtiapine FUMARATE 25 MG TABLET PO SCH (22:44)
[2023-02-17] MEDS: oxyCODONE HCL IR 5 MG TAB (IMMEDIATE RELEASE) PO SCH ×3 (05:16→17:34)
[2023-02-17] MEDS: LEVOTHYROXINE SODIUM 150 MCG TABLET PO SCH (05:16)
[2023-02-17 06:15] LABS: Basophils # (auto) 0.05 K/uL (0-0.2); Basophils % (auto) 0.9 %; Eosinophils # (auto) 0.21 K/uL (0-0.50); Eosinophils % (auto) 3.9 %; Hemoglobin 7.6 g/dl (12.0-16.0); Immature Granulocytes # (auto) 0.02 K/uL (0.01-0.20); Immature Granulocytes % (auto) 0.4 %; Lymphocytes # (auto) 1.31 K/uL (1.2-3.4); Lymphocytes % (auto) 24.3 %; Mean Corpuscular Hemoglobin 27.2 pg (25.0-34.0); Mean Corpuscular Hgb Conc 30.4 g/dL (32.0-36.0); Mean Corpuscular Volume 89.6 fL (80.0-100.0); Mean Platelet Volume 9.8 fL (9.4-12.4); Monocytes # (auto) 0.89 K/uL (0.11-0.59); Monocytes % (auto) 16.5 %; Platelet Count 68 K/uL (130-400); RDW Coefficient of Variation 16.6 % (11.5-14.5); RDW Standard Deviation 54.2 fL (36.4-46.3); Red Blood Count 2.79 M/uL (4.20-5.40); White Blood Count 5.38 K/ul (4.8-10.8)
[2023-02-17 06:35] LABS: RBC Morphology Unremarkable
[2023-02-17 06:36] LABS: Albumin Level 2.8 gm/dl (3.4-5.0); BUN Creatinine Ratio 16.5 (10-20); Bilirubin,Total 2.3 mg/dl (0.2-1.0); Calcium 8.5 mg/dl (8.6-10.3); Creatinine Clr Calc Pharmacy 82.1 ml/min; Est GFR (African American) 83.5 ml/min; Globulin 2.8 gm/dl (2.5-4.0); Magnesium 1.9 mg/dl (1.7-2.4); Potassium 3.4 mmol/L (3.5-5.1); Total Protein 5.6 gm/dl (6.0-8.3)
[2023-02-17 06:53] LABS: INR 1.9 (0.9-1.1); Partial Thromboplastin Ratio 1.2; Partial Thromboplastin Time 34.5 Seconds (21.0-31.0); Prothrombin Time 20.2 Seconds (9.0-12.0)
[2023-02-17] MEDS: CHOLECALCIFEROL 5,000 UNITS 125 MCG TAB PO SCH (08:46)
[2023-02-17] MEDS: FAMOTIDINE 40 MG TABLET PO SCH (08:46)
[2023-02-17] MEDS: LACTULOSE SYRUP 30 GM/45 ML UDP PO SCH ×2 (08:46→14:43)
[2023-02-17] MEDS: rifAXIMin 550 MG TABLET PO SCH (08:46)
[2023-02-17] MEDS: CLOPIDOGREL BISULFATE 75 MG TAB PO SCH (08:46)
[2023-02-17] MEDS: DICLOFENAC SOD 1% GEL 100 GM TUBE EXT SCH ×3 (08:47→17:34)
[2023-02-17] MEDS: ONDANSETRON INJ 2 MG/ML 2 ML VIAL IV PRN ×2 (08:47→14:45)
[2023-02-17] MEDS: INSULIN ASPART PER UNIT CHARGE SC SCH ×3 (08:56→17:34)
[2023-02-17] MEDS ORDERED: VENLAFAXINE HCL 50 MG TAB PO SCH (11:15)
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
[2023-02-17] MEDS ORDERED: VENLAFAXINE HCL XR 150 MG CAPXR PO SCH (11:30)
== END 2023-02-17 18:51 | DRG 71 ==
LOC: ED 19:07 → 4W 22:03 → SUATTDRO 22:03 → 4W 02-15 00:03

== ENCOUNTER 2023-03-04 16:32 | Inpatient (IN) ==
--- NOTE | 2023-03-04 16:37 | ED Triage Note ---
Date of Service March 04, 2023 History of Present Illness This patient was briefly evaluated while in triage. An abbreviated physical exam was performed. This patient is a 42-year-old Female who presents to the ED for evaluation of fluid in the abdomen. She was referred today by PCP. Last had paracentesis a few weeks ago she believes. No fevers. She notes here a few days ago. Physical Exam GENERAL: 42 year old female. In no acute distress. SKIN: No lesions or rashes. HEART: Regular rate and rhythm. LUNGS: Clear to auscultation. ABDOMEN: Bowel sounds normoactive. Ascites noted. NEURO: Alert and oriented. No deficits. MUSCULOSKELETAL: No deformities to inspection of the extremities. PSYCH: Patient is pleasant and answers all questions appropriately. Initial orders for labs and / or imaging were placed and patient was placed in the waiting area until a bed is available. Please see further documentation for the full ED course.
[2023-03-04 17:35] LABS: Appearance Urine Clear (Clear); Bilirubin Urine Negative (Negative); Blood Urine Negative (Negative); Color Urine Yellow; Glucose Urine UA Negative (Negative); Ketones Urine Negative (Negative); Leukocyte Esterase Urine Negative (Negative); Nitrite Urine Negative (Negative); Protein Urine Negative (Negative); Specific Gravity Urine 1.018 (1.000-1.030); Urobilinogen Urine Negative (Negative); pH Urine 5.5 (4.5-7.5)
[2023-03-04 17:41] LABS: Basophils # (auto) 0.05 K/uL (0-0.2); Basophils % (auto) 0.8 %; Eosinophils # (auto) 0.17 K/uL (0-0.50); Eosinophils % (auto) 2.7 %; Hemoglobin 8.7 g/dl (12.0-16.0); Immature Granulocytes # (auto) 0.02 K/uL (0.01-0.20); Immature Granulocytes % (auto) 0.3 %; Lymphocytes # (auto) 1.29 K/uL (1.2-3.4); Lymphocytes % (auto) 20.7 %; Mean Corpuscular Hemoglobin 27.8 pg (25.0-34.0); Mean Corpuscular Hgb Conc 31.1 g/dL (32.0-36.0); Mean Corpuscular Volume 89.5 fL (80.0-100.0); Mean Platelet Volume 9.9 fL (9.4-12.4); Monocytes # (auto) 0.81 K/uL (0.11-0.59); Neutrophils # (auto) 3.89 K/uL (1.40-6.50); Neutrophils % (auto) 62.5 %; Platelet Count 105 K/uL (130-400); RDW Coefficient of Variation 18.5 % (11.5-14.5); RDW Standard Deviation 58.9 fL (36.4-46.3); Red Blood Count 3.13 M/uL (4.20-5.40); White Blood Count 6.23 K/ul (4.8-10.8)
[2023-03-04 17:53] LABS: Alanine Aminotransferase 48 U/L (7-52); Albumin Globulin Ratio 0.8 (0.9-2); Albumin Level 2.8 gm/dl (3.4-5.0); Alkaline Phosphatase 107 U/L (34-104); Anion Gap 5 (3-11); Aspartate Aminotransferase 112 U/L (13-39); BUN Creatinine Ratio 15.2 (10-20); Bilirubin,Total 1.8 mg/dl (0.2-1.0); Blood Urea Nitrogen 21 mg/dl (6-23); Calcium 8.7 mg/dl (8.6-10.3); Carbon Dioxide 29 mmol/L (21-32); Chloride 101 mmol/L (98-107); Est GFR (African American) 54.5 ml/min; Globulin 3.4 gm/dl (2.5-4.0); Glucose 131 mg/dl (70-99(Fasting)); Lipase 33 U/L (11-82); Magnesium 1.8 mg/dl (1.7-2.4); Potassium 3.8 mmol/L (3.5-5.1); Sodium 135 mmol/L (136-145); Total Protein 6.2 gm/dl (6.0-8.3)
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
[2023-03-04 18:06] LABS: INR 1.6 (0.9-1.1); Prothrombin Time 16.8 Seconds (9.0-12.0)
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
[2023-03-04] MEDS ORDERED: HYDROmorphone INJ 0.5 MG/0.5 ML SYR IV STA (21:53)
[2023-03-04] MEDS ORDERED: ONDANSETRON INJ 2 MG/ML 2 ML VIAL IV STA (21:53)
[2023-03-04 22:06] LABS: Influenza A virus by PCR Negative (Neg); Influenza B virus by PCR Negative (Neg); RSV by PCR Negative (Neg); SARS CoV2 RNA(COVID-19) Ceph NEGATIVE (Negative)
[2023-03-04] MEDS ORDERED: PROCHLORPERAZINE MALEATE 10 MG TAB PO STA (22:58)
[2023-03-04] MEDS ORDERED: oxyCODONE HCL IR 5 MG TAB (IMMEDIATE RELEASE) PO STA (22:58)
[2023-03-05] MEDS ORDERED: IPRATROPIUM BROMIDE/ALBUTEROL respimat INH INH SCH (00:13)
[2023-03-05] MEDS ORDERED: CARBOHYDRATES FOR HYPOGLYCEMIA PO PRN (00:13)
[2023-03-05] MEDS ORDERED: DOCUSATE SODIUM/SENNA 50/8.6MG TAB PO PRN (00:13)
[2023-03-05] MEDS ORDERED: GLUCAGON FOR INJ 1 MG VIAL SQ PRN (00:13)
[2023-03-05] MEDS ORDERED: LACTULOSE SYRUP 20 GM/30 ML UDC PO SCH ×3 (00:13→14:00)
[2023-03-05] MEDS ORDERED: PROCHLORPERAZINE MALEATE 5 MG TAB PO PRN (00:13)
[2023-03-05] MEDS ORDERED: DEXTROSE 50% 50 ML SYRINGE IV PRN (00:13)
[2023-03-05] MEDS ORDERED: HYDROmorphone INJ 0.5 MG/0.5 ML SYR IV PRN (00:13)
[2023-03-05] MEDS ORDERED: GLUCOSE 40% GEL 15 GM TUBE PO PRN (00:13)
[2023-03-05] MEDS ORDERED: GLUCOSE 10 TAB/TUBE PO PRN (00:13)
[2023-03-05] MEDS ORDERED: PHYTONADIONE 5 MG in DEXTROSE 5% 50 ML IV ONE (00:45)
[2023-03-05] MEDS: POTASSIUM CHLORIDE CRTAB 20 MEQ TABCR PO SCH ×3 (01:22→17:35)
[2023-03-05] MEDS: FUROSEMIDE 80 MG TAB PO SCH ×5 (01:23→17:37)
[2023-03-05] MEDS: SPIRONOLACTONE 25 MG TAB PO SCH ×3 (01:25→17:35)
[2023-03-05] MEDS: rifAXIMin 550 MG TABLET PO SCH ×3 (01:25→20:33)
[2023-03-05] MEDS: rOPINIRole HCL 2 MG TABLET PO PRN ×2 (01:47→20:34)
[2023-03-05] MEDS: IPRATROPIUM BROMIDE HFA INHALER INH SCH ×5 (02:05→19:25)
[2023-03-05] MEDS: ALBUTEROL HFA 8 GM INHALER INH SCH ×5 (02:05→19:25)
[2023-03-05 02:09] LABS: Phosphorus 3.5 mg/dl (2.5-4.9)
[2023-03-05] MEDS: MELATONIN 3 MG TAB PO PRN (02:18)
[2023-03-05] MEDS: ACETAMINOPHEN 325 MG TAB PO PRN (03:39)
[2023-03-05] MEDS: LEVOTHYROXINE SODIUM 25 MCG TABLET PO SCH (05:56)
[2023-03-05] MEDS: LEVOTHYROXINE SODIUM 150 MCG TABLET PO SCH (05:56)
[2023-03-05] MEDS: oxyCODONE HCL IR 5 MG TAB (IMMEDIATE RELEASE) PO PRN ×2 (05:56→16:35)
[2023-03-05 07:37] LABS: Hematocrit (blood only) 27.5 % (37.0-47.0); Hemoglobin 8.8 g/dl (12.0-16.0); Mean Corpuscular Hemoglobin 27.3 pg (25.0-34.0); Mean Corpuscular Volume 85.4 fL (80.0-100.0); Mean Platelet Volume 9.3 fL (9.4-12.4); Platelet Count 80 K/uL (130-400); RDW Coefficient of Variation 18.7 % (11.5-14.5); RDW Standard Deviation 58.7 fL (36.4-46.3); Red Blood Count 3.22 M/uL (4.20-5.40); White Blood Count 6.33 K/ul (4.8-10.8)
[2023-03-05 07:54] LABS: Albumin Level 2.8 gm/dl (3.4-5.0); BUN Creatinine Ratio 16.1 (10-20); Bilirubin Direct 0.8 mg/dl (0-0.2); Bilirubin,Total 2.2 mg/dl (0.2-1.0); Calcium 8.3 mg/dl (8.6-10.3); Creatinine Clr Calc Pharmacy 90.3 ml/min; Est GFR (African American) 87.9 ml/min; Est GFR (Non-African American) 75.8 ml/min; Potassium 3.3 mmol/L (3.5-5.1)
[2023-03-05 07:59] LABS: INR 1.6 (0.9-1.1); Prothrombin Time 16.9 Seconds (9.0-12.0)
[2023-03-05] MEDS ORDERED: POTASSIUM CHLORIDE CRTAB 20 MEQ TABCR PO STA (08:12)
--- NOTE | 2023-03-05 08:14 | Hospitalist Progress Note ---
Date of Service March 05, 2023 Assessment & Plan (1) Abdominal ascites: Plan: 42yo female with NAFLD, Cirrhosis with known varices, abdominal ascites and hepatic encephalopathy presenting with acute on chronic liver failure - worsening ascites despite diuretic therapy as well as generalized weakness and ambulatory dysfunction. Patient recently returned from rehab and has been having a difficult time at home. She is afebrile, HD stable and NAD +abdominal ascites, abdomen is soft but is tender Labs otherwise with stable normochromic/normocytic anemia, thrombocytopenia with platelets of 105 - improved from prior level of 68 on 02/17/23 INR=1.6 - improved from prior of 1.9 Tv=428. BUN and Cr are near baseline. -Continue Oxycodone 15mg po q 6 hours PRN -Dilaudid 0.25mg IV q 6 hours as needed for pain -Zofran as needed for nausea -Prochlorperazine as needed for nausea -Vitamin K 5mg IV x 1 dose now -Repeat INR in AM -IR consultation appreciated for paracentesis - check cell count, gram stain and culture -Continue diuretics - Spironolactone and Lasix (while admitted - patient is on Torsemide outpatient) 03/05 Plavix on hold for para, patient stable. Diet ordered (also discussed w/ IR provider, does not need to be NPO for paracentesis and he will plan for tomorrow at 9am) GI on consult * rec aldactone:lasix 100:40 ratio. 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 Apparently had reductions in diuretics due to hypotension recently. ?causing increased ascites Continue aldactone/lasix at present dose for now. Renal function stable/Cr back to baseline, BP stable Continues on metoprolol (states this is new medication recently since diuretics reduced) Lactulose increased to 30mg TID and titrate to aim for 3-4BM/daily. Discussed can hold 2pm dose and continue tonight given continued BMs as she does at [facility] Continue protonix, pepcid. Patient on omeprazole at home -- discussed as she reports this works better that if someone wanted to bring in we can have pharmacy label/provide Continue rifaximin BID. Ammonia 66 on admit Monitor labs on repeat (2) Esophageal varices: Plan: continue PPI, pepcid. Prior carafate use noted given +fecal occult testing (I switched her from aspirin to plavix earlier this year to prevent GI bleeding issues as well given hx CVA) (3) Diabetes mellitus, type 2: Plan: Chronic. Well controlled. Last [id number]=0.4 on 01/09/23. Patient is on Tradjenta outpatient -ISS. No basal insulin - well controlled -Goal blood sugar 110 - 140 Monitor BSGs (4) GILLESPIE (nonalcoholic steatohepatitis): Plan: as above, needs hepatology [facility] f/u (5) Hypothyroidism: Plan: Chronic. -Continue Synthroid (6) History of CVA (cerebrovascular accident): Plan: Chronic. Stable. Alert/oriented -Holding Plavix in preparation for paracentesis actually appears much better than I've had during prior admission at present resume plavix as able Plan planning for paracentesis in AM (does not need to be NPO) Admission and Anticipated Discharge Date Admission Date: March 04, 2023 Supervising Physician Co-Signing Physician Notes The patient was not seen by me. The chart was reviewed. Case discussed with ASHLEY Cortez. Agree with assessment and plan Subjective eval this morning, doing alright. increased lactulose this morning and softer BM. Discussed at least 3-4BM daily. She reports being told 5x in the past. Discussed aiming for loose stools and prevention of constipation. Currently hungry, awaiting paracentesis which should be this afternoon. GI on consult as well. No chest pain/shortness of breath. To see Tasha Lawrence in place of [facility] end of next month w/ daughter for iron infusions and wanting levels checked. Also now on Plavix in place of aspirin. Needing refill once done at [facility]. Can send closer to [place] to ensure she has this. Questions/concerns addressed at this time. Her last dose of Plavix was yesterday morning -- will need to touch base w/ IR provider to ensure paracentesis for today vs waiting the 3 days. Will wait until tomorrow and aim for 9am. Physical Exam Physical Exam: General: WD, chronically ill appearing female sitting up in bed (appears improved from last time I saw her), NAD HEENT: head atraumatic, normocephalic,mm slightly dry, trachea midline Resp: CTA, diminished in the bases, no w/c, on room air CV: RRR, no significant m/r/g, 2+ pitting edema, calves nontender GI: significant distension, mild-mod tenderness to palpation, soft, no guarding/rigidity, no warmth/erythema : no granados Ext: warm, 2+ pulses in UE/LE bilaterally, no clubbing/cyanosis, 2+ pitting edema Neuro: nonfocal, patient AA&O x 4, speech intact, no facial droop, moving all extremities on command with equal strength 5/5, no asterixis at present Results & Data Results & Data Vital Signs (Past 12 Hours) Vital Signs Temp Pulse Pulse Resp BP BP Pulse Ox 03/05/23 07:44 36.8 C 111 H 16 106/70 94 03/05/23 07:15 108 H 18 96 03/05/23 06:55 95 H 03/05/23 00:30 36.9 C 93 H 18 147/88 H 98 03/05/23 03:37 37.0 C 108 H 18 157/81 H 97 03/05/23 00:03 36.9 C 93 H 18 147/88 H 98 03/05/23 02:09 99 H 18 98 03/04/23 22:50 99 03/04/23 22:40 97 03/04/23 22:30 95 03/04/23 22:30 18 105/56 L 03/04/23 22:20 95 03/04/23 22:10 96 03/04/23 22:03 99 03/04/23 22:03 18 118/89 03/04/23 22:02 96 03/04/23 21:46 93 H 03/04/23 21:20 103 H 03/04/23 21:10 90 03/04/23 21:00 92 H 18 03/04/23 20:50 93 H 20 03/04/23 20:40 90 13 03/04/23 20:30 88 20 03/04/23 20:20 100 H 16 O2 Del Method 03/05/23 07:44 Room Air 03/05/23 07:15 Room Air 03/05/23 06:55 03/05/23 00:30 Room Air 03/05/23 03:37 Room Air 03/05/23 00:03 Room Air 03/05/23 02:09 Room Air 03/04/23 22:50 03/04/23 22:40 03/04/23 22:30 03/04/23 22:30 03/04/23 22:20 03/04/23 22:10 03/04/23 22:03 03/04/23 22:03 03/04/23 22:02 03/04/23 21:46 03/04/23 21:20 03/04/23 21:10 03/04/23 21:00 03/04/23 20:50 03/04/23 20:40 03/04/23 20:30 03/04/23 20:20 Laboratory Results 03/05/23 03/05/23 03/05/23 Range/Units 11:42 06:44 06:44 WBC (4.8-10.8) K/ul RBC (4.20-5.40) M/uL Hgb (12.0-16.0) g/dl Hct (37.0-47.0) % MCV (80.0-100.0) fL MCH (25.0-34.0) pg MCHC (32.0-36.0) g/dL RDW Std Deviation (36.4-46.3) fL RDW Coeff of Henna (11.5-14.5) % Plt Count (130-400) K/uL MPV (9.4-12.4) fL Immature Gran % (Auto) % Neut % (Auto) % Lymph % (Auto) % Garvin % (Auto) % Eos % (Auto) % Baso % (Auto) % Neut # (Auto) (1.40-6.50) K/uL Lymph # (Auto) (1.2-3.4) K/uL Garvin # (Auto) (0.11-0.59) K/uL Eos # (Auto) (0-0.50) K/uL Baso # (Auto) (0-0.2) K/uL Immature Gran # (Auto) (0.01-0.20) K/uL PT 16.9 H (9.0-12.0) Seconds INR 1.6 H (0.9-1.1) APTT (21.0-31.0) Seconds PTT Ratio Sodium 136 (136-145) mmol/L Potassium 3.3 L (3.5-5.1) mmol/L Chloride 101 (98-107) mmol/L Carbon Dioxide 28 (21-32) mmol/L Anion Gap 7 (3-11) BUN 15 (6-23) mg/dl Creatinine 0.93 D (0.6-1.2) mg/dl Est Cr Clr Drug Dosing 90.3 Est GFR ( Amer) 87.9 ml/min Est GFR (Non-Af Amer) 75.8 ml/min BUN/Creatinine Ratio 16.1 (10-20) Glucose 104 H (70-99(Fasting)) mg/dl POC Glucose 111 H (70-99) mg/dl Calcium 8.3 L (8.6-10.3) mg/dl Phosphorus (2.5-4.9) mg/dl Magnesium 1.5 L (1.7-2.4) mg/dl Total Bilirubin 2.2 H (0.2-1.0) mg/dl Direct Bilirubin 0.8 H (0-0.2) mg/dl AST 102 H (13-39) U/L ALT 45 (7-52) U/L Alkaline Phosphatase 81 (34-104) U/L Ammonia (18-72) umol/L Total Protein 6.0 (6.0-8.3) gm/dl Albumin 2.8 L (3.4-5.0) gm/dl Globulin (2.5-4.0) gm/dl Albumin/Globulin Ratio (0.9-2) Lipase (11-82) U/L Urine Color Urine Appearance (Clear) Urine pH (4.5-7.5) Ur Specific Sayre (1.000-1.030) Urine Protein (Negative) Urine Glucose (UA) (Negative) Urine Ketones (Negative) Urine Blood (Negative) Urine Nitrite (Negative) Urine Bilirubin (Negative) Urine Urobilinogen (Negative) Ur Leukocyte Esterase (Negative) Nasal Screen MRSA (PCR) (Negative) SARS-CoV-2 (PCR) (Negative) Influenza Type A (PCR) (Neg) Influenza Type B (PCR) (Neg) RSV (RT-PCR) (Neg) 03/05/23 03/05/23 03/05/23 Range/Units 06:44 06:00 00:07 WBC 6.33 (4.8-10.8) K/ul RBC 3.22 L (4.20-5.40) M/uL Hgb 8.8 L (12.0-16.0) g/dl Hct 27.5 L (37.0-47.0) % MCV 85.4 (80.0-100.0) fL MCH 27.3 (25.0-34.0) pg MCHC 32.0 (32.0-36.0) g/dL RDW Std Deviation 58.7 H (36.4-46.3) fL RDW Coeff of Henna 18.7 H (11.5-14.5) % Plt Count 80 L (130-400) K/uL MPV 9.3 L (9.4-12.4) fL Immature Gran % (Auto) % Neut % (Auto) % Lymph % (Auto) % Garvin % (Auto) % Eos % (Auto) % Baso % (Auto) % Neut # (Auto) (1.40-6.50) K/uL Lymph # (Auto) (1.2-3.4) K/uL Garvin # (Auto) (0.11-0.59) K/uL Eos # (Auto) (0-0.50) K/uL Baso # (Auto) (0-0.2) K/uL Immature Gran # (Auto) (0.01-0.20) K/uL PT (9.0-12.0) Seconds INR (0.9-1.1) APTT (21.0-31.0) Seconds PTT Ratio Sodium (136-145) mmol/L Potassium (3.5-5.1) mmol/L Chloride (98-107) mmol/L Carbon Dioxide (21-32) mmol/L Anion Gap (3-11) BUN (6-23) mg/dl Creatinine (0.6-1.2) mg/dl Est Cr Clr Drug Dosing Est GFR ( Amer) ml/min Est GFR (Non-Af Amer) ml/min BUN/Creatinine Ratio (10-20) Glucose (70-99(Fasting)) mg/dl POC Glucose 134 H (70-99) mg/dl Calcium (8.6-10.3) mg/dl Phosphorus (2.5-4.9) mg/dl Magnesium (1.7-2.4) mg/dl Total Bilirubin (0.2-1.0) mg/dl Direct Bilirubin (0-0.2) mg/dl AST (13-39) U/L ALT (7-52) U/L Alkaline Phosphatase (34-104) U/L Ammonia (18-72) umol/L Total Protein (6.0-8.3) gm/dl Albumin (3.4-5.0) gm/dl Globulin (2.5-4.0) gm/dl Albumin/Globulin Ratio (0.9-2) Lipase (11-82) U/L Urine Color Urine Appearance (Clear) Urine pH (4.5-7.5) Ur Specific Sayre (1.000-1.030) Urine Protein (Negative) Urine Glucose (UA) (Negative) Urine Ketones (Negative) Urine Blood (Negative) Urine Nitrite (Negative) Urine Bilirubin (Negative) Urine Urobilinogen (Negative) Ur Leukocyte Esterase (Negative) Nasal Screen MRSA (PCR) Negative (Negative) SARS-CoV-2 (PCR) (Negative) Influenza Type A (PCR) (Neg) Influenza Type B (PCR) (Neg) RSV (RT-PCR) (Neg) 03/04/23 03/04/23 03/04/23 Range/Units 21:13 17:51 17:21 WBC (4.8-10.8) K/ul RBC (4.20-5.40) M/uL Hgb (12.0-16.0) g/dl Hct (37.0-47.0) % MCV (80.0-100.0) fL MCH (25.0-34.0) pg MCHC (32.0-36.0) g/dL RDW Std Deviation (36.4-46.3) fL RDW Coeff of Henna (11.5-14.5) % Plt Count (130-400) K/uL MPV (9.4-12.4) fL Immature Gran % (Auto) % Neut % (Auto) % Lymph % (Auto) % Garvin % (Auto) % Eos % (Auto) % Baso % (Auto) % Neut # (Auto) (1.40-6.50) K/uL Lymph # (Auto) (1.2-3.4) K/uL Garvin # (Auto) (0.11-0.59) K/uL Eos # (Auto) (0-0.50) K/uL Baso # (Auto) (0-0.2) K/uL Immature Gran # (Auto) (0.01-0.20) K/uL PT (9.0-12.0) Seconds INR (0.9-1.1) APTT (21.0-31.0) Seconds PTT Ratio Sodium (136-145) mmol/L Potassium (3.5-5.1) mmol/L Chloride (98-107) mmol/L Carbon Dioxide (21-32) mmol/L Anion Gap (3-11) BUN (6-23) mg/dl Creatinine (0.6-1.2) mg/dl Est Cr Clr Drug Dosing Est GFR ( Amer) ml/min Est GFR (Non-Af Amer) ml/min BUN/Creatinine Ratio (10-20) Glucose (70-99(Fasting)) mg/dl POC Glucose (70-99) mg/dl Calcium (8.6-10.3) mg/dl Phosphorus (2.5-4.9) mg/dl Magnesium (1.7-2.4) mg/dl Total Bilirubin (0.2-1.0) mg/dl Direct Bilirubin (0-0.2) mg/dl AST (13-39) U/L ALT (7-52) U/L Alkaline Phosphatase (34-104) U/L Ammonia 66.0 (18-72) umol/L Total Protein (6.0-8.3) gm/dl Albumin (3.4-5.0) gm/dl Globulin (2.5-4.0) gm/dl Albumin/Globulin Ratio (0.9-2) Lipase (11-82) U/L Urine Color Yellow Urine Appearance Clear (Clear) Urine pH 5.5 (4.5-7.5) Ur Specific Sayre 1.018 (1.000-1.030) Urine Protein Negative (Negative) Urine Glucose (UA) Negative (Negative) Urine Ketones Negative (Negative) Urine Blood Negative (Negative) Urine Nitrite Negative (Negative) Urine Bilirubin Negative (Negative) Urine Urobilinogen Negative (Negative) Ur Leukocyte Esterase Negative (Negative) Nasal Screen MRSA (PCR) (Negative) SARS-CoV-2 (PCR) NEGATIVE (Negative) Influenza Type A (PCR) Negative (Neg) Influenza Type B (PCR) Negative (Neg) RSV (RT-PCR) Negative (Neg) 03/04/23 03/04/23 03/04/23 Range/Units 17:21 17:21 17:21 WBC 6.23 (4.8-10.8) K/ul RBC 3.13 L (4.20-5.40) M/uL Hgb 8.7 L (12.0-16.0) g/dl Hct 28.0 L (37.0-47.0) % MCV 89.5 (80.0-100.0) fL MCH 27.8 (25.0-34.0) pg MCHC 31.1 L (32.0-36.0) g/dL RDW Std Deviation 58.9 H (36.4-46.3) fL RDW Coeff of Henna 18.5 H (11.5-14.5) % Plt Count 105 L (130-400) K/uL MPV 9.9 (9.4-12.4) fL Immature Gran % (Auto) 0.3 % Neut % (Auto) 62.5 % Lymph % (Auto) 20.7 % Garvin % (Auto) 13.0 % Eos % (Auto) 2.7 % Baso % (Auto) 0.8 % Neut # (Auto) 3.89 (1.40-6.50) K/uL Lymph # (Auto) 1.29 (1.2-3.4) K/uL Garvin # (Auto) 0.81 H (0.11-0.59) K/uL Eos # (Auto) 0.17 (0-0.50) K/uL Baso # (Auto) 0.05 (0-0.2) K/uL Immature Gran # (Auto) 0.02 (0.01-0.20) K/uL PT 16.8 H (9.0-12.0) Seconds INR 1.6 H (0.9-1.1) APTT 27.0 (21.0-31.0) Seconds PTT Ratio 1.0 Sodium 135 L (136-145) mmol/L Potassium 3.8 (3.5-5.1) mmol/L Chloride 101 (98-107) mmol/L Carbon Dioxide 29 (21-32) mmol/L Anion Gap 5 (3-11) BUN 21 (6-23) mg/dl Creatinine 1.38 H (0.6-1.2) mg/dl Est Cr Clr Drug Dosing Not Reportable Est GFR ( Amer) 54.5 ml/min Est GFR (Non-Af Amer) 47.0 ml/min BUN/Creatinine Ratio 15.2 (10-20) Glucose 131 H (70-99(Fasting)) mg/dl POC Glucose (70-99) mg/dl Calcium 8.7 (8.6-10.3) mg/dl Phosphorus 3.5 (2.5-4.9) mg/dl Magnesium 1.8 (1.7-2.4) mg/dl Total Bilirubin 1.8 H (0.2-1.0) mg/dl Direct Bilirubin (0-0.2) mg/dl AST 112 H (13-39) U/L ALT 48 (7-52) U/L Alkaline Phosphatase 107 H (34-104) U/L Ammonia (18-72) umol/L Total Protein 6.2 (6.0-8.3) gm/dl Albumin 2.8 L (3.4-5.0) gm/dl Globulin 3.4 (2.5-4.0) gm/dl Albumin/Globulin Ratio 0.8 L (0.9-2) Lipase 33 (11-82) U/L Urine Color Urine Appearance (Clear) Urine pH (4.5-7.5) Ur Specific Sayre (1.000-1.030) Urine Protein (Negative) Urine Glucose (UA) (Negative) Urine Ketones (Negative) Urine Blood (Negative) Urine Nitrite (Negative) Urine Bilirubin (Negative) Urine Urobilinogen (Negative) Ur Leukocyte Esterase (Negative) Nasal Screen MRSA (PCR) (Negative) SARS-CoV-2 (PCR) (Negative) Influenza Type A (PCR) (Neg) Influenza Type B (PCR) (Neg) RSV (RT-PCR) (Neg) PG Care Time/CCT Total # of Minutes Spent Total Time Spent with Patient: Total time spent is greater than 50% in coordination of care (as documented) at patient's floor/unit and/or counseling patient: Coding Level of Care Code 74305 SUB INP/OBS CARE 350MIN Diagnoses Abdominal ascites R18.8 Esophageal varices I85.00 Diabetes mellitus, type 2 E11.9 GILLESPIE (nonalcoholic steatohepatitis) K75.81 Hypothyroidism E03.9 History of CVA (cerebrovascular accident) Z86.73
[2023-03-05] MEDS: METOPROLOL SUCC 25MG EXT REL TAB PO SCH (08:38)
[2023-03-05] MEDS: FAMOTIDINE 40 MG TABLET PO SCH (08:40)
[2023-03-05] MEDS: INSULIN ASPART PER UNIT CHARGE SC SCH ×4 (08:48→20:27)
[2023-03-05] MEDS ORDERED: PANTOprazole 40 MG TAB PO SCH (09:00)
[2023-03-05 09:18] LABS: Magnesium 1.5 mg/dl (1.7-2.4)
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
[2023-03-05] MEDS: PANTOprazole 40 MG in SYRINGE 0 ML IV SCH ×2 (11:02→20:33)
[2023-03-05] MEDS ORDERED: Nursing to Pharmacy Communication SCH (11:15)
[2023-03-05] MEDS: LACTULOSE SYRUP 20 GM/30 ML UDC PO SCH ×3 (11:21→20:33)
[2023-03-05] MEDS: ONDANSETRON INJ 2 MG/ML 2 ML VIAL IV PRN (11:36)
--- NOTE | 2023-03-05 14:13 | Electrocardiogram Report ---
Test Reason : Blood Pressure : / mmHG Vent. Rate : 096 BPM Atrial Rate : 096 BPM P-R Int : 142 ms QRS Dur : 088 ms QT Int : 378 ms P-R-T Axes : 057 007 050 degrees QTc Int : 477 ms Normal sinus rhythm Poor R wave progression, consider anterior DE vs. lead placement vs. LVH Abnormal ECG When compared with ECG of 14-FEB-2023 19:42, QT has shortened Confirmed by Rafal Barrera ([id number]) on 03/05/2023 2:12:30 PM Referred By: REFERRED SELF Confirmed By:Adi Barrera
[2023-03-05] MEDS: VENLAFAXINE HCL 37.5 MG TAB PO SCH (15:26)
[2023-03-05] MEDS: MAGNESIUM SULFATE / D5W 1 GM/100 ML BAG IV SCH ×3 (15:27→20:06)
[2023-03-06] MEDS: ONDANSETRON INJ 2 MG/ML 2 ML VIAL IV PRN ×3 (02:18→23:21)
[2023-03-06] MEDS: oxyCODONE HCL IR 5 MG TAB (IMMEDIATE RELEASE) PO PRN ×4 (02:18→23:08)
[2023-03-06] MEDS: ACETAMINOPHEN 325 MG TAB PO PRN (04:23)
[2023-03-06] MEDS: LEVOTHYROXINE SODIUM 25 MCG TABLET PO SCH (06:40)
[2023-03-06] MEDS: LEVOTHYROXINE SODIUM 150 MCG TABLET PO SCH (06:40)
[2023-03-06] MEDS: IPRATROPIUM BROMIDE HFA INHALER INH SCH ×4 (07:16→19:10)
[2023-03-06] MEDS: ALBUTEROL HFA 8 GM INHALER INH SCH ×4 (07:17→19:09)
--- NOTE | 2023-03-06 07:57 | Hospitalist Progress Note ---
Date of Service March 06, 2023 Assessment & Plan (1) Abdominal ascites: Plan: 42yo female with NAFLD, Cirrhosis with known varices, abdominal ascites and hepatic encephalopathy presenting with acute on chronic liver failure - worsening ascites despite diuretic therapy as well as generalized weakness and ambulatory dysfunction. Patient recently returned from rehab and has been having a difficult time at home. +abdominal ascites, abdomen is soft but is tender Labs otherwise with stable normochromic/normocytic anemia, thrombocytopenia with platelets of 105 - improved from prior level of 68 on 02/17/23 INR=1.6 - improved from prior of 1.9 Ad=969. BUN and Cr are near baseline. 03/06 Plavix placed on hold for paracentesis, completed this morning for 5L volume. 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 Has appt telehealth with GI provider tomorrow morning. Can also reach out to Dr Stanley to discuss regimen. Will continue current regimen for now given large volume paracentesis to prevent hypotension issues. Stable VSS/exam and no need for albumin per discussion w/ supervising provider at present Lactulose decreased to 20mg TID -- continue for now. Moving her bowels. Continues rifaximin BID. Ammonia w/o significant elevation on admission. Mentation stable on exam LFTs improving Fluid restriction IV mag replacement -- will start mag-oxide BID. K replacement and again, likely benefit from increasing her dose of aldactone Daily weights ordered Continue her usual PPI/Pepcid as takes at home (if someone brings omeprazole can utilize this instead as she reports improvement) Plavix able to be resumed tomorrow morning PT/OT consulted -- wanting to return to [facility] to follow Monitor status on repeat exam/labs GI consulted --rec aldatone:lasix 100L40 ration. Discussed this AM given her current dosing -- defers on adjustment at this time. MELD score currently 16 F.u GI provider tomorrow morning (2) Esophageal varices: Plan: continue PPI, pepcid. Prior carafate use noted given +fecal occult testing (I switched her from aspirin to plavix earlier this year to prevent GI bleeding issues as well given hx CVA) (3) Diabetes mellitus, type 2: Plan: Chronic. Well controlled. Last QafO7X=3.4 on 01/09/23. Patient is on Tradjenta outpatient ISS ordered but has only required 1unit during entire inpatient stay and is tolerating diet and wanting to avoid at present D/c Insulin orders -- if BSGs stable today can stop finger sticks (4) GILLESPIE (nonalcoholic steatohepatitis): Plan: as above, needs f/u GI at discharge (5) Hypothyroidism: Plan: Chronic. Continue Synthroid (6) History of CVA (cerebrovascular accident): Plan: Chronic. Stable. Alert/oriented Appears much better than I've had during prior admission at present -Held Plavix in preparation for paracentesis --> to resume for tomorrow (7) Depression: Plan: prior on seroquel, ambien, effexor, requip, opiates -- meds have been changed and mood appears stable had been off her effexor/issues w/ withdrawal symptoms -improved since restarting lower dose effexor 75mg and discussed w/ her cirrhosis the higher doses were really not ideal as discussed prior admissions (max dose rec was 112.5mg and was taking 150+mg daily previously) -if stable on the 75mg dose would recommend decreasing to 37.5mg next week to prevent worsening issues w/ her cirrhosis (8) Anemia: Plan: chronic anemia, component related to her liver dysfunction prior + fecal occult testing on ASA. Switched to plavix per neuro recs given hx CVA Continues on PPI BID, pepcid Hgb stable compared to priors, suspect decrease dilutional from significant ascites Iron studies obtained, Venofer transfusion ordered as done previously for iron 27, trans % sat 14. Ferritin low at 50.8 Outpt f/u CCP next month -- can see if CM able to arrange sooner No bleeding reported Monitor CBC on repeat (9) Hypomagnesemia: Plan: low on check, prior lows -- IV replacement (not completed last night) and repeat again low. IV replacement ordered and plan to start mag-oxide BID to prevent need for IV/volume replacement and can continue at discharge (consider slow mag if needed for diarrhea complaints, but using lactulose to assit w/ BMs/pr evention of hepatic encephalopathy) monitor level on repeat in AM Plan continued inpatient stay, PT/OT consults pending but hopeful for d/c back to [facility] tomorrow Admission and Anticipated Discharge Date Admission Date: March 04, 2023 Supervising Physician Co-Signing Physician Notes The patient was not seen by me. The chart was reviewed. Case discussed with ASHLEY Cortez. Agree with assessment and plan Subjective Eval this afternoon, working with therapy. Wanting to go back to [facility] CM to follow. Had paracentesis this morning for 5L. Feeling much better since. Discussed diuretics. Initially once daily Aldactone/Lasix. Then had it increased to two Aldactone and changed to once torsemide before increasing to twice daily Aldactone and torsemide most recently. Has appt w/ her GI telehealth [facility] tomorrow. Number is [phone]. To touch base after appt to confirm medication regimen. Discussed Aldactone probably better in higher amount to prevent hypokalemia and maintain volume status. No fever/chills, chest pain/shortness of breath. Wanting powerade. Discussed will have RN provide. Loosen fluid restriction but also discussed limiting total volume in general as well as salt. Did resume effexor, discussed at lower dose and if stable can decrease further to 37.5mg and recommended limiting to effective dose given effects on liver. 1-2BM thus far, continues on 20mg lactulose TID. If 1-2 more today, can hold off dose this evening. Tolerating diet. Questioning insulin/carbs. Will look into such. States recent d/c of her metformin given liver dysfunction. Questions/concerns addressed at this time. Hopeful for dc back to [facility] tomorrow. CM to f/u. Review of Systems Review of Systems: All systems reviewed & are unremarkable except as noted in HPI & below Physical Exam Physical Exam: General: WD, chronically ill appearing female ambulating with walker with therapy, NAD HEENT: head atraumatic, normocephalic,mmm, trachea midline Resp: CTA, diminished in the bases, no w/c, on room air CV: RRR, +murmur, +pitting edema/no calf tenderness GI: +BS, decreased distension/ascites, decreased tenderness, no guarding/rigidity/warmth/erythema : no granados Ext: warm, 2+ pulses in UE/LE bilaterally, no clubbing/cyanosis, 2+ pitting edema Neuro: nonfocal, patient AA&O x 4, speech intact, no facial droop, moving all extremities on command with equal strength bilaterally (slightly reduced dorsiflexion), no asterixis at present Results & Data Results & Data Vital Signs (Past 12 Hours) Vital Signs Temp Pulse Pulse Resp BP Pulse Ox O2 Del Method 03/06/23 07:27 72 03/06/23 07:17 89 18 98 Room Air 03/05/23 22:34 81 03/06/23 04:13 36.7 C 89 18 118/73 94 Room Air 03/05/23 22:59 36.7 C 81 18 108/57 L 96 Room Air Laboratory Results 03/06/23 03/06/23 03/06/23 Range/Units 11:39 09:30 09:30 WBC (4.8-10.8) K/ul RBC (4.20-5.40) M/uL Hgb (12.0-16.0) g/dl Hct (37.0-47.0) % MCV (80.0-100.0) fL MCH (25.0-34.0) pg MCHC (32.0-36.0) g/dL RDW Std Deviation (36.4-46.3) fL RDW Coeff of Henna (11.5-14.5) % Plt Count (130-400) K/uL MPV (9.4-12.4) fL PT (9.0-12.0) Seconds INR (0.9-1.1) Sodium (136-145) mmol/L Potassium (3.5-5.1) mmol/L Chloride (98-107) mmol/L Carbon Dioxide (21-32) mmol/L Anion Gap (3-11) BUN (6-23) mg/dl Creatinine (0.6-1.2) mg/dl Est Cr Clr Drug Dosing ml/min Est GFR ( Amer) ml/min Est GFR (Non-Af Amer) ml/min BUN/Creatinine Ratio (10-20) Glucose (70-99(Fasting)) mg/dl POC Glucose 129 H (70-99) mg/dl Calcium (8.6-10.3) mg/dl Magnesium (1.7-2.4) mg/dl Iron (35-150) mcg/dl TIBC (250-450) mcg/dl Unsaturated IBC (155-355) mcg/dl Transferrin % Sat (15-50) % Ferritin (8-388) ng/ml Total Bilirubin (0.2-1.0) mg/dl Direct Bilirubin (0-0.2) mg/dl AST (13-39) U/L ALT (7-52) U/L Alkaline Phosphatase (34-104) U/L Total Protein (6.0-8.3) gm/dl Albumin (3.4-5.0) gm/dl Fluid Neutrophils % % Fluid Lymphocytes % % Fluid Meso/Macro/Barnes % % Fluid Comment Peritoneal Color Peritoneal Appearance Peritoneal WBC (Auto) (0-300) /ul Peritoneal RBC (Auto) /uL Peritoneal Tot Protein < 3.0 gm/dl Peritoneal Albumin < 1.5 Cancelled 03/06/23 03/06/23 03/06/23 Range/Units 09:30 07:56 06:43 WBC (4.8-10.8) K/ul RBC (4.20-5.40) M/uL Hgb (12.0-16.0) g/dl Hct (37.0-47.0) % MCV (80.0-100.0) fL MCH (25.0-34.0) pg MCHC (32.0-36.0) g/dL RDW Std Deviation (36.4-46.3) fL RDW Coeff of Henna (11.5-14.5) % Plt Count (130-400) K/uL MPV (9.4-12.4) fL PT (9.0-12.0) Seconds INR (0.9-1.1) Sodium 135 L (136-145) mmol/L Potassium 3.4 L (3.5-5.1) mmol/L Chloride 100 (98-107) mmol/L Carbon Dioxide 31 (21-32) mmol/L Anion Gap 4 (3-11) BUN 12 (6-23) mg/dl Creatinine 0.85 (0.6-1.2) mg/dl Est Cr Clr Drug Dosing 100.2 ml/min Est GFR ( Amer) 98.0 ml/min Est GFR (Non-Af Amer) 84.5 ml/min BUN/Creatinine Ratio 14.1 (10-20) Glucose 112 H (70-99(Fasting)) mg/dl POC Glucose 106 H (70-99) mg/dl Calcium 7.8 L (8.6-10.3) mg/dl Magnesium 1.5 L (1.7-2.4) mg/dl Iron 27 L (35-150) mcg/dl TIBC 190 L (250-450) mcg/dl Unsaturated IBC 163 (155-355) mcg/dl Transferrin % Sat 14 L (15-50) % Ferritin 50.8 (8-388) ng/ml Total Bilirubin 1.8 H (0.2-1.0) mg/dl Direct Bilirubin 0.8 H (0-0.2) mg/dl AST 81 H (13-39) U/L ALT 38 (7-52) U/L Alkaline Phosphatase 76 (34-104) U/L Total Protein 5.8 L (6.0-8.3) gm/dl Albumin 2.7 L (3.4-5.0) gm/dl Fluid Neutrophils % 17 % Fluid Lymphocytes % 63 % Fluid Meso/Macro/Barnes % 20 % Fluid Comment Peritoneal Color Pale Yellow Peritoneal Appearance Hazy Peritoneal WBC (Auto) 421 H (0-300) /ul Peritoneal RBC (Auto) < 2000 /uL Peritoneal Tot Protein gm/dl Peritoneal Albumin 03/06/23 03/06/23 03/05/23 Range/Units 06:43 06:43 20:05 WBC 5.01 (4.8-10.8) K/ul RBC 3.06 L (4.20-5.40) M/uL Hgb 8.3 L (12.0-16.0) g/dl Hct 26.3 L (37.0-47.0) % MCV 85.9 (80.0-100.0) fL MCH 27.1 (25.0-34.0) pg MCHC 31.6 L (32.0-36.0) g/dL RDW Std Deviation 59.6 H (36.4-46.3) fL RDW Coeff of Henna 19.2 H (11.5-14.5) % Plt Count 81 L (130-400) K/uL MPV 9.9 (9.4-12.4) fL PT 16.7 H (9.0-12.0) Seconds INR 1.6 H (0.9-1.1) Sodium (136-145) mmol/L Potassium (3.5-5.1) mmol/L Chloride (98-107) mmol/L Carbon Dioxide (21-32) mmol/L Anion Gap (3-11) BUN (6-23) mg/dl Creatinine (0.6-1.2) mg/dl Est Cr Clr Drug Dosing ml/min Est GFR ( Amer) ml/min Est GFR (Non-Af Amer) ml/min BUN/Creatinine Ratio (10-20) Glucose (70-99(Fasting)) mg/dl POC Glucose 143 H (70-99) mg/dl Calcium (8.6-10.3) mg/dl Magnesium (1.7-2.4) mg/dl Iron (35-150) mcg/dl TIBC (250-450) mcg/dl Unsaturated IBC (155-355) mcg/dl Transferrin % Sat (15-50) % Ferritin (8-388) ng/ml Total Bilirubin (0.2-1.0) mg/dl Direct Bilirubin (0-0.2) mg/dl AST (13-39) U/L ALT (7-52) U/L Alkaline Phosphatase (34-104) U/L Total Protein (6.0-8.3) gm/dl Albumin (3.4-5.0) gm/dl Fluid Neutrophils % % Fluid Lymphocytes % % Fluid Meso/Macro/Barnes % % Fluid Comment Peritoneal Color Peritoneal Appearance Peritoneal WBC (Auto) (0-300) /ul Peritoneal RBC (Auto) /uL Peritoneal Tot Protein gm/dl Peritoneal Albumin Diagnostic Findings Paracentesis Ultrasound 03/06/23 09:00 Ultrasound-guided paracentesis INDICATION: Ascites PROCEDURE: Procedure and risks were explained. Informed consent was obtained. A final time out was completed. The left lower quadrant was prepped and draped in sterile fashion. 1% buffered lidocaine was utilized for skin anesthesia. Utilizing ultrasound guidance, a 5 German safety centesis catheter was advanced into the left lower quadrant pocket of ascites. Ultrasound images were obtained. A total of 5 L of yellow-colored fluid was removed, with 1 L sent to lab for analysis. The catheter was removed and Band-Aid applied. The patient tolerated the procedure well. Vital signs will be monitored postprocedure. IMPRESSION: Ultrasound-guided paracentesis as above. Performed, dictated, and signed by Marvin Greene PA-C; to be co-signed by Dr. Lorenzo Ocampo. Electronically signed by: Lorenzo Ocampo M.D. 03/06/2023 1:51 PM PG Care Time/CCT Total # of Minutes Spent Total Time Spent with Patient: Total time spent is greater than 50% in coordination of care (as documented) at patient's floor/unit and/or counseling patient: Coding Level of Care Code 26827 SUB INP/OBS CARE 3/50MIN Diagnoses Abdominal ascites R18.8 Esophageal varices I85.00 Diabetes mellitus, type 2 E11.9 GILLESPIE (nonalcoholic steatohepatitis) K75.81 Hypothyroidism E03.9 History of CVA (cerebrovascular accident) Z86.73 Depression F32.9 Anemia D64.9 Hypomagnesemia E83.42
[2023-03-06 08:05] LABS: Hematocrit (blood only) 26.3 % (37.0-47.0); Hemoglobin 8.3 g/dl (12.0-16.0); Mean Corpuscular Hemoglobin 27.1 pg (25.0-34.0); Mean Corpuscular Hgb Conc 31.6 g/dL (32.0-36.0); Mean Corpuscular Volume 85.9 fL (80.0-100.0); Mean Platelet Volume 9.9 fL (9.4-12.4); Platelet Count 81 K/uL (130-400); RDW Coefficient of Variation 19.2 % (11.5-14.5); RDW Standard Deviation 59.6 fL (36.4-46.3); Red Blood Count 3.06 M/uL (4.20-5.40); White Blood Count 5.01 K/ul (4.8-10.8)
[2023-03-06] MEDS: BENZOCAINE 20% (ORAJEL) 11.9 GM TUBE MT PRN ×2 (08:08→16:42)
[2023-03-06] MEDS: rifAXIMin 550 MG TABLET PO SCH ×2 (08:10→23:08)
[2023-03-06] MEDS: PANTOprazole 40 MG in SYRINGE 0 ML IV SCH ×2 (08:10→23:08)
[2023-03-06] MEDS: VENLAFAXINE HCL 37.5 MG TAB PO SCH (08:10)
[2023-03-06] MEDS: POTASSIUM CHLORIDE CRTAB 20 MEQ TABCR PO SCH ×3 (08:10→16:41)
[2023-03-06] MEDS: METOPROLOL SUCC 25MG EXT REL TAB PO SCH (08:11)
[2023-03-06] MEDS: FAMOTIDINE 40 MG TABLET PO SCH (08:11)
[2023-03-06] MEDS: SPIRONOLACTONE 25 MG TAB PO SCH ×2 (08:11→16:44)
[2023-03-06] MEDS: FUROSEMIDE 80 MG TAB PO SCH ×3 (08:11→16:42)
[2023-03-06 08:14] LABS: Albumin Level 2.7 gm/dl (3.4-5.0); BUN Creatinine Ratio 14.1 (10-20); Bilirubin Direct 0.8 mg/dl (0-0.2); Bilirubin,Total 1.8 mg/dl (0.2-1.0); Calcium 7.8 mg/dl (8.6-10.3); Creatinine Clr Calc Pharmacy 100.2 ml/min; Est GFR (Non-African American) 84.5 ml/min; Magnesium 1.5 mg/dl (1.7-2.4); Potassium 3.4 mmol/L (3.5-5.1); Total Protein 5.8 gm/dl (6.0-8.3)
[2023-03-06] MEDS: LACTULOSE SYRUP 20 GM/30 ML UDC PO SCH ×3 (08:15→21:05)
[2023-03-06 08:20] LABS: INR 1.6 (0.9-1.1); Prothrombin Time 16.7 Seconds (9.0-12.0)
[2023-03-06 08:33] LABS: Ferritin 50.8 ng/ml (8-388)
[2023-03-06] MEDS ORDERED: IRON SUCROSE 300 MG in SODIUM CHLORIDE 0.9% 250 ML IV ONE (08:55)
[2023-03-06] MEDS: INSULIN ASPART PER UNIT CHARGE SC SCH ×2 (11:08→12:50)
[2023-03-06 11:37] LABS: Albumin Peritoneal Fluid < 1.5 gm/dl
[2023-03-06 11:42] LABS: Total Protein Peritoneal Fluid < 3.0 gm/dl
[2023-03-06 12:17] LABS: Appearance Peritoneal Fluid Hazy; Color Peritoneal Fluid Pale Yellow; RBC Peritoneal Fluid Auto < 2000 /uL; WBC Peritoneal Fluid Auto 421 /ul (0-300)
[2023-03-06 12:18] LABS: Lymphocytes, Fluid 63 %; Mono,Macrophage,Mesothelial 20 %; Neutrophils, Fluid 17 %
[2023-03-06] MEDS: MAGNESIUM SULFATE / D5W 1 GM/100 ML BAG IV SCH ×3 (12:49→16:52)
--- NOTE | 2023-03-06 13:51 | Ultrasound Report ---
Ultrasound-guided paracentesis INDICATION: Ascites PROCEDURE: Procedure and risks were explained. Informed consent was obtained. A final time out was co mpleted. The left lower quadrant was prepped and draped in sterile fashion. 1% buffered lidocaine was utilized for skin anesthesia. Utilizing ultrasound guidance, a 5 Israeli safety centesis catheter was advanced into the left lower q uadrant pocket of ascites. Ultrasound images were obtained. A total of 5 L of yellow-colored fluid wa s removed, with 1 L sent to lab for analysis. The catheter was removed and Band-Aid applied. The chelly ent tolerated the procedure well. Vital signs will be monitored postprocedure. IMPRESSION: Ultrasound-guided paracentesis as above. Performed, dictated, and signed by Marvin Greene PA-C; to be co-signed by Dr. Lorenzo Ocampo. Electronically signed by: Lorenzo Ocampo M.D. 03/06/2023 1:51 PM
[2023-03-06] MEDS: MAGNESIUM OXIDE 400 MG TAB PO SCH (23:07)
[2023-03-06] MEDS: MELATONIN 3 MG TAB PO PRN (23:07)
[2023-03-06] MEDS: rOPINIRole HCL 2 MG TABLET PO PRN (23:08)
[2023-03-07] MEDS: ACETAMINOPHEN 325 MG TAB PO PRN (03:24)
[2023-03-07] MEDS: oxyCODONE HCL IR 5 MG TAB (IMMEDIATE RELEASE) PO PRN ×2 (06:26→14:28)
[2023-03-07] MEDS: LEVOTHYROXINE SODIUM 150 MCG TABLET PO SCH (06:26)
[2023-03-07] MEDS: LEVOTHYROXINE SODIUM 25 MCG TABLET PO SCH (06:26)
[2023-03-07] MEDS: ALBUTEROL HFA 8 GM INHALER INH SCH ×3 (06:58→15:15)
[2023-03-07] MEDS: IPRATROPIUM BROMIDE HFA INHALER INH SCH ×3 (06:58→15:16)
--- NOTE | 2023-03-07 07:33 | Hospitalist Progress Note ---
Date of Service March 07, 2023 Assessment & Plan (1) Abdominal ascites: Plan: 42yo female with NAFLD, Cirrhosis with known varices, abdominal ascites and hepatic encephalopathy presenting with acute on chronic liver failure - worsening ascites despite diuretic therapy as well as generalized weakness and ambulatory dysfunction. Patient recently returned from rehab and has been having a difficult time at home. +abdominal ascites, abdomen is soft but is tender Labs otherwise with stable normochromic/normocytic anemia, thrombocytopenia with platelets of 105 - improved from prior level of 68 on 02/17/23 INR=1.6 - improved from prior of 1.9 Gf=863. BUN and Cr are near baseline. 03/06 Plavix placed on hold for paracentesis, completed this morning for 5L volume. 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 Has appt telehealth with GI provider tomorrow morning. Can also reach out to Dr Stanley to discuss regimen. Will continue current regimen for now given large volume paracentesis to prevent hypotension issues. Stable VSS/exam and no need for albumin per discussion w/ supervising provider at present Lactulose decreased to 20mg TID -- continue for now. Moving her bowels. Continues rifaximin BID. Ammonia w/o significant elevation on admission. Mentation stable on exam LFTs improving Fluid restriction IV mag replacement -- will start mag-oxide BID. K replacement and again, likely benefit from increasing her dose of aldactone Daily weights ordered Continue her usual PPI/Pepcid as takes at home (if someone brings omeprazole can utilize this instead as she reports improvement) Plavix able to be resumed tomorrow morning PT/OT consulted -- wanting to return to [facility]. to follow Monitor status on repeat exam/labs GI consulted --rec aldatone:lasix 100L40 ration. Discussed this AM given her current dosing -- defers on adjustment at this time. MELD score currently 16 F.u GI provider tomorrow morning (2) Esophageal varices: Plan: continue PPI, pepcid. Prior carafate use noted given +fecal occult testing (I switched her from aspirin to plavix earlier this year to prevent GI bleeding issues as well given hx CVA) (3) Diabetes mellitus, type 2: Plan: Chronic. Well controlled. Last [id number]=9.4 on 01/09/23. Patient is on Tradjenta outpatient ISS ordered but has only required 1unit during entire inpatient stay and is tolerating diet and wanting to avoid at present D/c Insulin orders -- if BSGs stable today can stop finger sticks (4) GILLESPIE (nonalcoholic steatohepatitis): Plan: as above, needs f/u GI at discharge (5) Hypothyroidism: Plan: Chronic. Continue Synthroid (6) History of CVA (cerebrovascular accident): Plan: Chronic. Stable. Alert/oriented Appears much better than I've had during prior admission at present -Held Plavix in preparation for paracentesis --> to resume for tomorrow (7) Depression: Plan: prior on seroquel, ambien, effexor, requip, opiates -- meds have been changed and mood appears stable had been off her effexor/issues w/ withdrawal symptoms -improved since restarting lower dose effexor 75mg and discussed w/ her cirrhosis the higher doses were really not ideal as discussed prior admissions (max dose rec was 112.5mg and was taking 150+mg daily previously) -if stable on the 75mg dose would recommend decreasing to 37.5mg next week to prevent worsening issues w/ her cirrhosis (8) Anemia: Plan: chronic anemia, component related to her liver dysfunction prior + fecal occult testing on ASA. Switched to plavix per neuro recs given hx CVA Continues on PPI BID, pepcid Hgb stable compared to priors, suspect decrease dilutional from significant ascites Iron studies obtained, Venofer transfusion ordered as done previously for iron 27, trans % sat 14. Ferritin low at 50.8 Outpt f/u [facility] next month -- can see if CM able to arrange sooner No bleeding reported Monitor CBC on repeat (9) Hypomagnesemia: Plan: low on check, prior lows -- IV replacement (not completed last night) and repeat again low. IV replacement ordered and plan to start mag-oxide BID to prevent need for IV/volume replacement and can continue at discharge (consider slow mag if needed for diarrhea complaints, but using lactulose to assit w/ BMs/pr evention of hepatic encephalopathy) monitor level on repeat in AM Plan continued inpatient stay, PT/OT consults pending but hopeful for d/c back to [facility] tomorrow Admission and Anticipated Discharge Date Admission Date: March 04, 2023 Subjective eval this morning had appt w/ Anju from [facility] this morning. Stated would be better served with following locally and not following with them as progression seems quick. She is ok w following Dr Barrett but needing hepatology through [facility] -- appt in June. Wanting to see if we can set her up local. She feels better but having increased abd fluid. Discussed held PM lasix, resumed this morning but to increase her aldactone to 75mg BID (eventual hope to get to 100mg BID) and switch her back to usual torsemide for increased gut absorption. Discussed if unable to maintain her fluid balance w/ increasing diuretics may be able ot get scheduled for paracentesis to prevent need for hospitalization. Waiting determination to [facility]. Moving bowels -- 2x thus far. Will dc tele monitor as well. Hopeful d/c [facility] tomorrow. Results & Data Results & Data Vital Signs (Past 12 Hours) Vital Signs Temp Pulse Pulse Resp BP Pulse Ox O2 Del Method 03/07/23 07:01 87 20 95 Room Air 03/06/23 20:00 Room Air 03/06/23 23:31 36.5 C 71 18 94 Room Air 03/06/23 20:17 36.4 C L 18 L 74 97 H 119/77 Room Air PG Care Time/CCT Total # of Minutes Spent Total Time Spent with Patient: Total time spent is greater than 50% in coordination of care (as documented) at patient's floor/unit and/or counseling patient: Coding Diagnoses Abdominal ascites R18.8 Esophageal varices I85.00 Diabetes mellitus, type 2 E11.9 GILLESPIE (nonalcoholic steatohepatitis) K75.81 Hypothyroidism E03.9 History of CVA (cerebrovascular accident) Z86.73 Depression F32.9 Anemia D64.9 Hypomagnesemia E83.42
[2023-03-07 07:56] LABS: Hematocrit (blood only) 30.7 % (37.0-47.0); Hemoglobin 9.6 g/dl (12.0-16.0); Mean Corpuscular Hgb Conc 31.3 g/dL (32.0-36.0); Mean Corpuscular Volume 86.5 fL (80.0-100.0); Mean Platelet Volume 9.3 fL (9.4-12.4); Platelet Count 96 K/uL (130-400); RDW Coefficient of Variation 18.5 % (11.5-14.5); RDW Standard Deviation 58.2 fL (36.4-46.3); Red Blood Count 3.55 M/uL (4.20-5.40)
[2023-03-07 08:03] LABS: Albumin Level 2.8 gm/dl (3.4-5.0); BUN Creatinine Ratio 11.8 (10-20); Bilirubin Direct 0.9 mg/dl (0-0.2); Bilirubin,Total 2.3 mg/dl (0.2-1.0); Calcium 7.5 mg/dl (8.6-10.3); Creatinine Clr Calc Pharmacy 108.2 ml/min; Est GFR (African American) 112.1 ml/min; Est GFR (Non-African American) 96.8 ml/min; Magnesium 1.8 mg/dl (1.7-2.4); Potassium 3.8 mmol/L (3.5-5.1); Total Protein 6.7 gm/dl (6.0-8.3)
[2023-03-07 08:21] LABS: INR 1.4 (0.9-1.1); Prothrombin Time 15.2 Seconds (9.0-12.0)
[2023-03-07] MEDS: SPIRONOLACTONE 25 MG TAB PO SCH (08:36)
[2023-03-07] MEDS: rifAXIMin 550 MG TABLET PO SCH (08:36)
[2023-03-07] MEDS: MAGNESIUM OXIDE 400 MG TAB PO SCH (08:36)
[2023-03-07] MEDS: PANTOprazole 40 MG in SYRINGE 0 ML IV SCH (08:36)
[2023-03-07] MEDS: POTASSIUM CHLORIDE CRTAB 20 MEQ TABCR PO SCH (08:36)
[2023-03-07] MEDS: FUROSEMIDE 80 MG TAB PO SCH (08:36)
[2023-03-07] MEDS: FAMOTIDINE 40 MG TABLET PO SCH (08:37)
[2023-03-07] MEDS: VENLAFAXINE HCL 37.5 MG TAB PO SCH (08:37)
[2023-03-07] MEDS: METOPROLOL SUCC 25MG EXT REL TAB PO SCH (08:38)
[2023-03-07] MEDS: LACTULOSE SYRUP 20 GM/30 ML UDC PO SCH ×2 (08:38→13:46)
[2023-03-07] MEDS: ONDANSETRON INJ 2 MG/ML 2 ML VIAL IV PRN ×2 (08:51→14:26)
[2023-03-07] MEDS ORDERED: CLOPIDOGREL BISULFATE 75 MG TAB PO SCH (09:00)
[2023-03-07] MEDS ORDERED: BUTALBITAL/ACETAMIN/CAFFEINE TAB PO STA (10:05)
[2023-03-07] MEDS ORDERED: IRON SUCROSE 300 MG in SODIUM CHLORIDE 0.9% 250 ML IV ONE (12:00)
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
[2023-03-07] MEDS ORDERED: SPIRONOLACTONE 25 MG TAB PO SCH (17:00)
[2023-03-07] MEDS ORDERED: TORSEMIDE 10 MG TAB PO SCH (21:00)
[2023-03-07] MEDS ORDERED: PANTOprazole 40 MG TAB PO SCH (21:00)
== END 2023-03-07 16:00 | DRG 442 ==
LOC: ED 16:32 → 2W 20:02 → SUATTDRO 20:02 → 2W 23:36

== ENCOUNTER 2023-03-26 08:08 | Inpatient (IN) ==
[2023-03-26 09:39] LABS: Basophils # (auto) 0.05 K/uL (0-0.2); Basophils % (auto) 0.6 %; Eosinophils # (auto) 0.01 K/uL (0-0.50); Eosinophils % (auto) 0.1 %; Hematocrit (blood only) 36.1 % (37.0-47.0); Immature Granulocytes # (auto) 0.03 K/uL (0.01-0.20); Immature Granulocytes % (auto) 0.4 %; Lymphocytes # (auto) 1.09 K/uL (1.2-3.4); Lymphocytes % (auto) 13.8 %; Mean Corpuscular Hemoglobin 28.6 pg (25.0-34.0); Mean Corpuscular Hgb Conc 33.2 g/dL (32.0-36.0); Mean Platelet Volume 9.5 fL (9.4-12.4); Monocytes # (auto) 0.76 K/uL (0.11-0.59); Monocytes % (auto) 9.6 %; Neutrophils # (auto) 5.94 K/uL (1.40-6.50); Neutrophils % (auto) 75.5 %; Platelet Count 142 K/uL (130-400); RDW Coefficient of Variation 20.3 % (11.5-14.5); White Blood Count 7.88 K/ul (4.8-10.8)
[2023-03-26 09:40] LABS: Albumin Level 3.1 gm/dl (3.4-5.0); Anion Gap 8 (3-11); Bilirubin Direct 0.9 mg/dl (0-0.2); Bilirubin,Total 2.9 mg/dl (0.2-1.0); Calcium 9.2 mg/dl (8.6-10.3); Carbon Dioxide 35 mmol/L (21-32); Chloride 90 mmol/L (98-107); Magnesium 1.8 mg/dl (1.7-2.4); Potassium 2.9 mmol/L (3.5-5.1); Sodium 133 mmol/L (136-145)
[2023-03-26 09:46] LABS: Alanine Aminotransferase 41 U/L (7-52); Albumin Globulin Ratio 0.7 (0.9-2); Alkaline Phosphatase 102 U/L (34-104); Aspartate Aminotransferase 92 U/L (13-39); BUN Creatinine Ratio 8.8 (10-20); Blood Urea Nitrogen 7 mg/dl (6-23); Est GFR (African American) 105.4 ml/min; Est GFR (Non-African American) 90.9 ml/min; Globulin 4.2 gm/dl (2.5-4.0); Glucose 105 mg/dl (70-99(Fasting)); Total Protein 7.3 gm/dl (6.0-8.3)
[2023-03-26 09:51] LABS: Troponin I High Sensitivity 4.7 pg/ml (0-14)
[2023-03-26 09:56] LABS: Anisocytosis Present; Polychromasia 1+
--- NOTE | 2023-03-26 09:56 | XRay Report ---
XR chest 1V portable HISTORY: 42 years-old Female Weakness acute weakness COMPARISON: Chest radiograph 03/15/2023 TECHNIQUE: AP view of the chest FINDINGS: Cardiac silhouette is upper limits of normal in size. No pneumothorax, pleural effusion, airspace con solidation or pulmonary edema. Hypoinflation with bronchovascular crowding. Right shoulder rotator cu ff calcific tendinosis. Cervical spinal fusion hardware. IMPRESSION: No acute process. ACT 112: Negative or not required by law. The above report was generated using voice recognition software. It may contain grammatical, syntax o r spelling errors. Electronically signed by: Lorenzo Ocampo M.D. 03/26/2023 9:54 AM
[2023-03-26 10:05] LABS: INR 1.4 (0.9-1.1); Partial Thromboplastin Time 28.4 Seconds (21.0-31.0); Prothrombin Time 15.4 Seconds (9.0-12.0)
[2023-03-26 10:08] LABS: Thyroid Stimulating Hormone 0.248 uIu/ml (0.300-4.500)
[2023-03-26 10:34] LABS: Appearance Urine Cloudy (Clear); Bacteria Urine Automated Negative (Negative); Blood Urine Negative (Negative); Color Urine Dark Yellow; Epithelial Cell Urine Auto >30 /lpf (0-5); Glucose Urine UA Negative (Negative); Ketones Urine Trace (Negative); Leukocyte Esterase Urine Negative (Negative); Nitrite Urine Negative (Negative); Protein Urine Negative (Negative); Specific Gravity Urine 1.019 (1.000-1.030); Urobilinogen Urine Negative (Negative); pH Urine 5.5 (4.5-7.5)
[2023-03-26 10:35] LABS: Bilirubin Urine 1+ (Negative)
--- NOTE | 2023-03-26 10:39 | Emergency Department Note ---
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 Documented By: Infusion: 03/26/23 13:27 Dose: 100 mls/hr Documented By: Admin: 03/26/23 12:27 Dose: 100 mls/hr Documented By: QGV Sodium Chloride (Nss) 500 mls @ 80 mls/hr IV .[id number] CHERYLE Stop: 04/25/23 11:59 Last Infusion: 03/26/23 18:17 Dose: 0 mls/hr Documented By: Admin: 03/26/23 12:27 Dose: 80 mls/hr Documented By: QGV Potassium Chloride (K Sal / Wtr) 10 meq in 100 mls @ 100 mls/hr IV Q1H CHERYLE Stop: 03/26/23 17:29 Last Infusion: 03/26/23 19:28 Dose: 0 mls/hr Documented By: Admin: 03/26/23 18:22 Dose: 100 mls/hr Documented By: Infusion: 03/26/23 17:54 Dose: 0 mls/hr Documented By: Admin: 03/26/23 16:33 Dose: 100 mls/hr Documented By: QGV Ioversol (Optiray 320 100ml) 92 ml IV ONCE ONE Stop: 03/26/23 12:04 Last Admin: 03/26/23 12:04 Dose: 92 ml Documented By: DANNYP Imaging Data Radiologist's Impression: Cervical Spine CT 03/26/23 09:39 CT cervical spine wo con CLINICAL HISTORY: 42 years-old Female with fall pain ams. Acute neck pain status post fall COMPARISON: CT cervical spine 01/08/2023. TECHNIQUE: Multiple axial CT images of the cervical spine were obtained without contrast. A dose lowering technique was utilized adhering to the principles of ALARA. FINDINGS: Anterior plate and screw fusion with posterior interbody fusion again noted at C5-C7. The left-sided C7 posterior screw partially extends into the C7- T1 facet joint. No acute cervical spine fracture or subluxation. The cervical soft tissues appear unremarkable. The visualized lung apices appear clear. IMPRESSION: 1. No acute cervical spine fracture or subluxation. 2. Anterior and posterior fusion of the cervical spine again noted at C5-C7. The left-sided C7 posterior screw partially extends into the C7-T1 facet joint. ACT 112: Negative or not required by law. The above report was generated using voice recognition software. It may contain grammatical, syntax or spelling errors. Electronically signed by: Lorenzo Ocampo M.D. 03/26/2023 12:[address] 03/26/23 09:39 CT OF THE CHEST WITH IV CONTRAST CLINICAL HISTORY: fall pain ams COMPARISON STUDY: Chest CT March 11, 2019. Chest radiograph performed earlier today. TECHNIQUE: Following IV administration of Optiray, helical axial images of the chest were obtained. Sagittal and coronal reconstructions were viewed as well as maximal intensity projections on an independent 3-D workstation. Automated exposure control was utilized for the study. A dose lowering technique was utilized adhering to the principles of ALARA. FINDINGS: There is no evidence for traumatic injury to the thoracic aorta. There is no pericardial effusion. No mediastinal hematoma is present. There is mild cardiomegaly. No pneumothorax or pleural effusion is present. There is no pulmonary contusion. Lungs are clear. No acute rib or thoracic spine fracture is noted. Postoperative findings within the cervical spine are partially imaged. Large volume ascites is better depicted on the abdomen and pelvis CT which will be reported separately. Abdominal varices, splenomegaly as well as body wall edema are better depicted on that exam. IMPRESSION: 1. No acute traumatic findings within the chest. 2. Cirrhosis with splenomegaly, varices and large volume ascites better depicted on the CT of the abdomen and pelvis which will be reported separately. ACT 112: Negative or not required by law. Electronically signed by: Guero Garcia M.D. 03/26/2023 12:[address] 03/26/23 09:39 CT head/brain wo con CLINICAL HISTORY: 42 years-old Female with fall pain ams. Acute head and neck injury status post fall TECHNIQUE: Multiple axial CT images of the head were obtained without contrast. A dose lowering technique was utilized adhering to the principles of ALARA. COMPARISON: CT cervical spine of same day, head CT 02/14/2023 FINDINGS: No acute intracranial hemorrhage, midline shift, intracranial mass, hydroc ephalus, territorial ischemia or abnormal extra-axial collection. Calcifications of the falx cerebri. The study is motion degraded. Unchanged hypodense focus in the inferior left lentiform nuclear distribution, likely a prominent perivascular space. The calvarium is intact. The paranasal sinuses, mastoid air cells, and middle ear cavities are clear. IMPRESSION: No acute intracranial abnormality. ACT 112: Negative or not required by law. The above report was generated using voice recognition software. It may contain grammatical, syntax or spelling errors. Electronically signed by: Lorenzo Ocampo M.D. 03/26/2023 12:50 PM Abdomen/Pelvis CT 03/26/23 09:41 CT SCAN OF THE ABDOMEN AND PELVIS WITH IV CONTRAST CLINICAL HISTORY: Fall. COMPARISON STUDY: Abdominal CT dated 02/04/2023. TECHNIQUE: Following the IV administration of 92 cc of Optiray 320, CT scan of the abdomen and pelvis is performed from the lung bases to the proximal femora. Images are reviewed in the axial, sagittal, and coronal planes. IV contrast was administered without complication. A dose lowering technique was utilized adhering to the principles of ALARA. The examination is degraded by streak artifact from the arms which could not be elevated above the abdomen or pelvis. CT DOSE: 4485.66 mGy.cm FINDINGS: Lung bases: The heart is normal in size and without pericardial effusion. The lung bases are clear. Liver: The contrast-enhanced liver is cirrhotic in morphology and heterogeneous in attenuation. There is nodularity of the hepatic surface contour. There is no intrahepatic biliary ductal dilatation. There is nonocclusive thrombus within the main portal vein, the portosplenic confluence, and within the splenic vein. The intrahepatic portal veins are patent. There is recanalization of the periumbilical vein. Gallbladder: Surgically absent noting clips in the gallbladder fossa. Spleen: The spleen is enlarged, measuring 18.9 cm in length. Pancreas: Moderately atrophic and grossly unremarkable. Adrenal glands: Unremarkable. Kidneys: The contrast enhanced kidneys are normal in size and without hydronephrosis. The kidneys enhance symmetrically. Abdominal vasculature: The abdominal aorta is normal in course and caliber. Bowel: Postsurgical changes noted in the stomach. No bowel obstruction is seen. There is mild colonic diverticulosis without CT evidence of acute diverticulitis. There are perirectal varices. The appendix is well-visualized and normal. Peritoneum: There is a moderate volume of abdominopelvic ascites. No intraperitoneal free air is identified. Lymphadenopathy: None. Pelvic viscera: The bladder is normal as visualized. The uterus is surgically absent. No adnexal lesion is seen. Skeletal structures: No lytic or blastic lesions are seen. Soft tissues: There is anasarca of the body wall. IMPRESSION: 1. The liver is cirrhotic in morphology and heterogeneous in attenuation. 2. There is nonocclusive thrombus within the main portal vein, the portosplenic confluence, and the splenic vein. Thrombus in the splenic vein has significantly increased from prior studies. 3. Marked splenomegaly, a moderate volume of abdominopelvic ascites, recanalization of the periumbilical vein, upper abdominal varices, and perirecta l varices indicate portal hypertension. 4. No acute infectious or inflammatory findings are identified and there is no evidence of solid organ injury in the abdomen or pelvis. 5. Additional findings as above. ACT 112: Negative or not required by law. Electronically signed by: Davide Vines M.D. 03/26/2023 12:39 PM Discharge Plan Visit Data Chief Complaint: Altered Mental Status Stated Complaint: LIVER ISSUES,SWELLING TO STOMACH,PAIN,FALLING,AMS ED Provider: Myron Reyes Discharge Problem: Confusion, Abdominal ascites, Splenic vein thrombosis, Portal hypertension, Hypokalemia, Liver cirrhosis secondary to DUNAWAY Patient Disposition: Admitted As Inpatient Discharge Instructions Interventions: ED Discharge Assessment Last Done: 03/26/23 16:13
[2023-03-26 10:45] LABS: RBC Urine Automated 0-4 /hpf (0-4)
[2023-03-26 10:48] LABS: T4 Free Thyroxine 2.07 ng/dl (0.61-1.60)
[2023-03-26 11:14] LABS: Base Excess VBG 10.8 mEq/L; HCO3 VBG 36 mmol/L; Oxygen Saturation VBG 80.5 %; PCO2 VBG 48 mmHg (38-50); PO2 VBG 51 mmHg; pH VBG 7.48 (7.36-7.41)
[2023-03-26 11:20] LABS: Amphetamines+Metham, Urine Neg (Neg); Barbiturates, Urine Pos (Neg); Benzodiazepine, Urine Pos (Neg); Cocaine, Urine Neg (Neg); MDMA (Ecstacy), Urine Neg (Neg); Methadone, Urine Neg (Neg); Opiate, Urine Neg (Neg); Phencyclidine, Urine Neg (Neg)
[2023-03-26] MEDS ORDERED: SODIUM CHLORIDE 0.9% 500 ML IV SCH (12:00)
[2023-03-26] MEDS ORDERED: OPTIRAY 320 100ml IV ONE (12:03)
[2023-03-26] MEDS: POTASSIUM CHLORIDE / WTR 10 MEQ/100 ML PLCT IV SCH ×4 (12:27→18:22)
--- NOTE | 2023-03-26 12:40 | CT Scan Report ---
CT SCAN OF THE ABDOMEN AND PELVIS WITH IV CONTRAST CLINICAL HISTORY: Fall. COMPARISON STUDY: Abdominal CT dated 02/04/2023. TECHNIQUE: Following the IV administration of 92 cc of Optiray 320, CT scan of the abdomen and pelvi s is performed from the lung bases to the proximal femora. Images are reviewed in the axial, sagittal , and coronal planes. IV contrast was administered without complication. A dose lowering technique wa s utilized adhering to the principles of ALARA. The examination is degraded by streak artifact from t he arms which could not be elevated above the abdomen or pelvis. CT DOSE: 4485.66 mGy.cm FINDINGS: Lung bases: The heart is normal in size and without pericardial effusion. The lung bases are clear. Liver: The contrast-enhanced liver is cirrhotic in morphology and heterogeneous in attenuation. There is nodularity of the hepatic surface contour. There is no intrahepatic biliary ductal dilatation. Th ere is nonocclusive thrombus within the main portal vein, the portosplenic confluence, and within the splenic vein. The intrahepatic portal veins are patent. There is recanalization of the periumbilical vein. Gallbladder: Surgically absent noting clips in the gallbladder fossa. Spleen: The spleen is enlarged, measuring 18.9 cm in length. Pancreas: Moderately atrophic and grossly unremarkable. Adrenal glands: Unremarkable. Kidneys: The contrast enhanced kidneys are normal in size and without hydronephrosis. The kidneys enh ance symmetrically. Abdominal vasculature: The abdominal aorta is normal in course and caliber. Bowel: Postsurgical changes noted in the stomach. No bowel obstruction is seen. There is mild colonic diverticulosis without CT evidence of acute diverticulitis. There are perirectal varices. The append ix is well-visualized and normal. Peritoneum: There is a moderate volume of abdominopelvic ascites. No intraperitoneal free air is iden tified. Lymphadenopathy: None. Pelvic viscera: The bladder is normal as visualized. The uterus is surgically absent. No adnexal lesi on is seen. Skeletal structures: No lytic or blastic lesions are seen. Soft tissues: There is anasarca of the body wall. IMPRESSION: 1. The liver is cirrhotic in morphology and heterogeneous in attenuation. 2. There is nonocclusive thrombus within the main portal vein, the portosplenic confluence, and the s plenic vein. Thrombus in the splenic vein has significantly increased from prior studies. 3. Marked splenomegaly, a moderate volume of abdominopelvic ascites, recanalization of the periumbili kvng vein, upper abdominal varices, and perirectal varices indicate portal hypertension. 4. No acute infectious or inflammatory findings are identified and there is no evidence of solid orga n injury in the abdomen or pelvis. 5. Additional findings as above. ACT 112: Negative or not required by law. Electronically signed by: Davide Vines M.D. 03/26/2023 12:39 PM
--- NOTE | 2023-03-26 12:42 | CT Scan Report ---
CT OF THE CHEST WITH IV CONTRAST CLINICAL HISTORY: fall pain ams COMPARISON STUDY: Chest CT March 11, 2019. Chest radiograph performed earlier today. TECHNIQUE: Following IV administration of Optiray, helical axial images of the chest were obtained. Sagittal and coronal reconstructions were viewed as well as maximal intensity projections on an [employer] 3-D workstation. Automated exposure control was utilized for the study. A dose lowering lucero hnique was utilized adhering to the principles of ALARA. FINDINGS: There is no evidence for traumatic injury to the thoracic aorta. There is no pericardial e ffusion. No mediastinal hematoma is present. There is mild cardiomegaly. No pneumothorax or pleural e ffusion is present. There is no pulmonary contusion. Lungs are clear. No acute rib or thoracic spine fracture is noted. Postoperative findings within the cervical spine are partially imaged. Large volum e ascites is better depicted on the abdomen and pelvis CT which will be reported separately. Abdomina l varices, splenomegaly as well as body wall edema are better depicted on that exam. IMPRESSION: 1. No acute traumatic findings within the chest. 2. Cirrhosis with splenomegaly, varices and large volume ascites better depicted on the CT of the abd omen and pelvis which will be reported separately. ACT 112: Negative or not required by law. Electronically signed by: Guero Garcia M.D. 03/26/2023 12:40 PM
--- NOTE | 2023-03-26 12:51 | CT Scan Report ---
CT cervical spine wo con CLINICAL HISTORY: 42 years-old Female with fall pain ams. Acute neck pain status post fall COMPARISON: CT cervical spine 01/08/2023. TECHNIQUE: Multiple axial CT images of the cervical spine were obtained without contrast. A dose low ering technique was utilized adhering to the principles of ALARA. FINDINGS: Anterior plate and screw fusion with posterior interbody fusion again noted at C5-C7. The l eft-sided C7 posterior screw partially extends into the C7-T1 facet joint. No acute cervical spine fr acture or subluxation. The cervical soft tissues appear unremarkable. The visualized lung apices appear clear. IMPRESSION: 1. No acute cervical spine fracture or subluxation. 2. Anterior and posterior fusion of the cervical spine again noted at C5-C7. The left-sided C7 ict help desk technician ior screw partially extends into the C7-T1 facet joint. ACT 112: Negative or not required by law. The above report was generated using voice recognition software. It may contain grammatical, syntax o r spelling errors. Electronically signed by: Lorenzo Ocampo M.D. 03/26/2023 12:50 PM
--- NOTE | 2023-03-26 12:52 | CT Scan Report ---
CT head/brain wo con CLINICAL HISTORY: 42 years-old Female with fall pain ams. Acute head and neck injury status post fal l TECHNIQUE: Multiple axial CT images of the head were obtained without contrast. A dose lowering tech nique was utilized adhering to the principles of ALARA. COMPARISON: CT cervical spine of same day, head CT 02/14/2023 FINDINGS: No acute intracranial hemorrhage, midline shift, intracranial mass, hydrocephalus, territorial ischem ia or abnormal extra-axial collection. Calcifications of the falx cerebri. The study is motion degrad ed. Unchanged hypodense focus in the inferior left lentiform nuclear distribution, likely a prominent perivascular space. The calvarium is intact. The paranasal sinuses, mastoid air cells, and middle ear cavities are clear . IMPRESSION: No acute intracranial abnormality. ACT 112: Negative or not required by law. The above report was generated using voice recognition software. It may contain grammatical, syntax o r spelling errors. Electronically signed by: Lorenzo Ocampo M.D. 03/26/2023 12:50 PM
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
[2023-03-26] MEDS ORDERED: CARBOHYDRATES FOR HYPOGLYCEMIA PO PRN (15:23)
[2023-03-26] MEDS ORDERED: GLUCOSE 10 TAB/TUBE PO PRN (15:23)
[2023-03-26] MEDS ORDERED: GLUCOSE 40% GEL 15 GM TUBE PO PRN (15:23)
[2023-03-26] MEDS ORDERED: PHARMACY GLYCEMIC MGMT CONSULT PRN (15:23)
[2023-03-26] MEDS ORDERED: DEXTROSE 50% 50 ML SYRINGE IV PRN (15:23)
[2023-03-26] MEDS ORDERED: GLUCAGON FOR INJ 1 MG VIAL SQ PRN (15:23)
--- NOTE | 2023-03-26 16:43 | Ultrasound Report ---
Ultrasound-guided paracentesis INDICATION: Ascites PROCEDURE: Procedure and risks were explained. Informed consent was obtained. A final time out was co mpleted. The left lower quadrant was prepped and draped in sterile fashion. 1% buffered lidocaine was utilized for skin anesthesia. Utilizing ultrasound guidance, a 5 [place] safety centesis catheter was advanced into the left lower q uadrant pocket of ascites. Ultrasound images were obtained. A total of 3.9 L of yellow ascites fluid was removed, with 1 L sent to lab for analysis. The catheter was removed and Band-Aid applied. The pa tient tolerated the procedure well. Vital signs will be monitored postprocedure. IMPRESSION: Ultrasound-guided paracentesis as above. Performed, dictated, and signed by Marvin Greene PA-C; to be co-signed by Dr. Guero Garcia. Electronically signed by: Guero Garcia M.D. 03/26/2023 7:08 PM
[2023-03-26] MEDS ORDERED: IPRATROPIUM BROMIDE/ALBUTEROL respimat INH INH PRN (17:20)
[2023-03-26] MEDS ORDERED: rOPINIRole HCL 2 MG TABLET PO PRN (17:20)
[2023-03-26] MEDS ORDERED: hydrOXYzine HCl 10 MG TAB PO PRN (17:20)
[2023-03-26] MEDS ORDERED: bisacodyL 10 MG SUPP PR PRN (17:20)
[2023-03-26] MEDS ORDERED: ENOXAPARIN 1 MG/KG SQ SCH (17:20)
[2023-03-26] MEDS ORDERED: PROCHLORPERAZINE MALEATE 5 MG TAB PO PRN (17:20)
[2023-03-26] MEDS ORDERED: DOCUSATE SODIUM/SENNA 50/8.6MG TAB PO PRN (17:20)
[2023-03-26] MEDS ORDERED: POLYETHYLENE (MIRALAX) 17 GM PACK PO PRN (17:20)
[2023-03-26] MEDS ORDERED: IPRATROPIUM BROMIDE HFA INHALER INH PRN (17:55)
[2023-03-26] MEDS ORDERED: ALBUTEROL HFA 8 GM INHALER INH PRN (17:55)
[2023-03-26] MEDS: INSULIN ASPART PER UNIT CHARGE SC SCH ×2 (18:07→21:03)
[2023-03-26] MEDS: SPIRONOLACTONE 25 MG TAB PO SCH (18:20)
[2023-03-26 19:03] LABS: Appearance Peritoneal Fluid Hazy; Color Peritoneal Fluid Yellow; RBC Peritoneal Fluid Auto < 2000 /uL; WBC Peritoneal Fluid Auto 307 /ul (0-300)
[2023-03-26 19:22] LABS: BUN Creatinine Ratio 8.8 (10-20); Calcium 8.4 mg/dl (8.6-10.3); Creatinine Clr Calc Pharmacy 62.4 ml/min; Est GFR (Non-African American) 107.9 ml/min; Potassium 3.1 mmol/L (3.5-5.1)
[2023-03-26 19:29] LABS: Lymphocytes, Fluid 39 %; Mono,Macrophage,Mesothelial 53 %; Neutrophils, Fluid 8 %
[2023-03-26] MEDS: cefTRIAXone SODIUM 2,000 MG in DEXTROSE 5% 50 ML IV SCH (19:47)
[2023-03-26] MEDS: TORSEMIDE 10 MG TAB PO SCH (20:20)
[2023-03-26] MEDS: MAGNESIUM OXIDE 400 MG TAB PO SCH (20:20)
[2023-03-26] MEDS: LACTULOSE SYRUP 20 GM/30 ML UDC PO SCH (20:20)
[2023-03-26] MEDS: rifAXIMin 550 MG TABLET PO SCH (20:20)
[2023-03-26] MEDS: POTASSIUM CHLORIDE CRTAB 20 MEQ TABCR PO SCH (20:20)
[2023-03-26] MEDS: ENOXAPARIN INJ 40 MG/0.4 ML SYR SQ SCH (22:27)
[2023-03-26 23:59] LABS: BUN Creatinine Ratio 8.1 (10-20); Calcium 8.3 mg/dl (8.6-10.3); Creatinine Clr Calc Pharmacy 57.4 ml/min; Est GFR (African American) 115.8 ml/min; Est GFR (Non-African American) 99.9 ml/min; Potassium 3.2 mmol/L (3.5-5.1)
[2023-03-27] MEDS: oxyCODONE HCL IR 5 MG TAB (IMMEDIATE RELEASE) PO PRN ×3 (03:08→23:00)
[2023-03-27] MEDS ORDERED: LEVOTHYROXINE SODIUM 150 MCG TABLET PO SCH (06:30)
[2023-03-27 07:15] LABS: Basophils # (auto) 0.09 K/uL (0-0.2); Eosinophils # (auto) 0.24 K/uL (0-0.50); Eosinophils % (auto) 2.5 %; Hematocrit (blood only) 31.6 % (37.0-47.0); Hemoglobin 10.6 g/dl (12.0-16.0); Immature Granulocytes # (auto) 0.02 K/uL (0.01-0.20); Immature Granulocytes % (auto) 0.2 %; Lymphocytes # (auto) 2.91 K/uL (1.2-3.4); Lymphocytes % (auto) 30.8 %; Mean Corpuscular Hemoglobin 28.4 pg (25.0-34.0); Mean Corpuscular Hgb Conc 33.5 g/dL (32.0-36.0); Mean Corpuscular Volume 84.7 fL (80.0-100.0); Mean Platelet Volume 9.5 fL (9.4-12.4); Monocytes # (auto) 1.31 K/uL (0.11-0.59); Monocytes % (auto) 13.8 %; Neutrophils # (auto) 4.89 K/uL (1.40-6.50); Neutrophils % (auto) 51.7 %; Platelet Count 140 K/uL (130-400); RDW Coefficient of Variation 20.8 % (11.5-14.5); RDW Standard Deviation 64.1 fL (36.4-46.3); Red Blood Count 3.73 M/uL (4.20-5.40); White Blood Count 9.46 K/ul (4.8-10.8)
[2023-03-27 07:35] LABS: Polychromasia 1+
[2023-03-27 07:37] LABS: Albumin Globulin Ratio 0.7 (0.9-2); Albumin Level 2.5 gm/dl (3.4-5.0); BUN Creatinine Ratio 8.3 (10-20); Bilirubin,Total 3.3 mg/dl (0.2-1.0); Calcium 8.5 mg/dl (8.6-10.3); Creatinine Clr Calc Pharmacy 112.5 ml/min; Est GFR (African American) 119.7 ml/min; Est GFR (Non-African American) 103.3 ml/min; Globulin 3.5 gm/dl (2.5-4.0); Magnesium 1.8 mg/dl (1.7-2.4); Potassium 3.3 mmol/L (3.5-5.1)
[2023-03-27] MEDS: INSULIN ASPART PER UNIT CHARGE SC SCH ×4 (08:20→20:17)
[2023-03-27] MEDS: FAMOTIDINE 40 MG TABLET PO SCH (08:21)
[2023-03-27] MEDS: VENLAFAXINE HCL XR 75 MG CAPXR PO SCH (08:21)
[2023-03-27] MEDS: PANTOprazole 40 MG TAB PO SCH (08:22)
[2023-03-27] MEDS: DOCUSATE SODIUM 100 MG CAP PO SCH (08:23)
[2023-03-27] MEDS: METOPROLOL SUCC 25MG EXT REL TAB PO SCH (08:23)
[2023-03-27] MEDS: CHOLECALCIFEROL 5,000 UNITS 125 MCG TAB PO SCH (08:24)
[2023-03-27] MEDS: SPIRONOLACTONE 25 MG TAB PO SCH ×2 (08:25→16:00)
[2023-03-27] MEDS: rifAXIMin 550 MG TABLET PO SCH ×2 (08:25→20:19)
[2023-03-27] MEDS: LACTULOSE SYRUP 20 GM/30 ML UDC PO SCH ×3 (08:25→20:17)
[2023-03-27] MEDS: POTASSIUM CHLORIDE CRTAB 20 MEQ TABCR PO SCH ×2 (08:25→20:19)
[2023-03-27] MEDS: MAGNESIUM OXIDE 400 MG TAB PO SCH ×2 (08:26→20:22)
[2023-03-27] MEDS: TORSEMIDE 10 MG TAB PO SCH ×2 (08:26→20:18)
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
[2023-03-27] MEDS: ENOXAPARIN INJ 40 MG/0.4 ML SYR SQ SCH (10:04)
--- NOTE | 2023-03-27 13:50 | Hospitalist Progress Note ---
Date of Service March 27, 2023 Assessment & Plan (1) Acute hepatic encephalopathy: Plan: Acute hepatic encephalopathy, exacerbated by use of narcotics -Patient continues to take narcotics at home despite repeated attempts to wean her off -Also claims to be compliant with her lactulose and rifaximin -Serum ammonia level 51 on admission, will recheck -Continue lactulose and rifaximin, titrate to at least 3 bowel movements daily. -Avoid narcotics (2) Diabetes mellitus: Plan: Type II DM A1c 5.4 on 12/2022 ISS Goal BSG [id number] - Glycemic consult placed, following (3) Ascites: Plan: Secondary to liver cirrhosis Patient had paracentesis yesterday at the ER, with tapping of 4 L of fluid. Sent to the labs, awaiting results. Patient has an appointment with transplant team at [facility] tomorrow, she has been urged to make the appointment. (4) Splenic vein thrombosis: Plan: Nonocclusive portal vein thrombus, splenic vein thrombus Increased on repeat imaging despite Plavix treatment GI consulted to follow as inpatient Did discuss with Dr. Lawrence at [facility] hepatology. Patient is scheduled to establish with [facility] hepatology as outpatient this coming week. Given advanced portal vein thrombus despite Plavix treatment do recommend anticoagulation at this time. While sometimes these are not treated and followed, given that she is a potential transplant candidate in the future and untreated advancement of thrombus is with increased risk of bleeding due to portal pressure do agree with anticoagulation at this time. recommend Lovenox twice daily as therapeutic option, studies with good data for efficacy and recommend use out to 1 year. Can also be held around paracentesis as needed patient is at risk of bleeding, her platelets are currently improved from prior. Would not hold anticoagulation based on these unless critically low. She is at risk of bleeding, and if bleeding would require transfer to tertiary care where IR and additional services are available; however do not recommend that patient be transferred at this time. Recommend initiating anticoagulation and following and then if clinical bleeding occurs, transfer at that time. Appreciate consultation. We will start Lovenox 1 M PK twice daily 6 hours post paracentesis Child-Chaudhari, MELD score is noted (5) Esophageal varices: (6) Hypokalemia: (7) Hepatic encephalopathy: (8) History of CVA (cerebrovascular accident): (9) Opioid dependence: (10) Sleep apnea: (11) Neurogenic bladder: Plan Continue hospitalization, plan is to discharge tomorrow so she can make an appointment with [facility] transplant Admission and Anticipated Discharge Date Admission Date: March 26, 2023 Subjective Patient seen and examined, by the bedside, has an appointment tomorrow with hepatology at [facility], Review of Systems Review of Systems: All systems reviewed are negative, apart from the ones contained in the history. Physical Exam Physical Exam: The patient is awake, alert and oriented 3, well developed and well nourished, HEENT--PERRL, EOMI, mucous membranes and oropharynx mildly dry Neck--supple. No JVD. No bruits. Thyroid normal, trachea midline, no adenopathy. Heart--normal S1 and S2. No murmurs, rubs or gallops. Lungs--clear bilaterally, no respiratory distress, no accessory muscle use. Abdomen--distended abdomen Extremities--no cyanosis or clubbing. No edema. Dermatologic--normal skin turgor, normal color, no abnormal lymph nodes, no rash. Neurologic--coarse tremors Rheumatologic--normal range of motion. Psychiatric--normal affect. Results & Data Results & Data Vital Signs (Past 12 Hours) Vital Signs Temp Pulse Resp BP Pulse Ox O2 Del Method 03/27/23 12:29 98.2 F 86 18 141/85 H 95 Room Air 03/27/23 09:15 98.2 F 81 18 147/89 H 97 Room Air 03/27/23 03:14 98.1 F 88 20 127/82 94 Room Air PG Care Time/CCT Total # of Minutes Spent Total Time Spent with Patient: Total time spent is greater than 50% in coordination of care (as documented) at patient's floor/unit and/or counseling patient: Coding Level of Care Code 76661 SUB INP/OBS CARE 2/35MIN Diagnoses Acute hepatic encephalopathy K76.82 Diabetes mellitus E11.9 Ascites R18.8 Splenic vein thrombosis I82.890 Esophageal varices I85.00 Hypokalemia E87.6 Hepatic encephalopathy K72.90 History of CVA (cerebrovascular accident) Z86.73 Opioid dependence F11.20 Sleep apnea G47.30 Neurogenic bladder N31.9 Time Spent (min) 35
--- NOTE | 2023-03-27 15:01 | Pharmacy Report ---
Pharmacy Glycemic Short Note 2 - Date of Service March 27, 2023 - Glycemic Short BSG Results (Last 24 hours): 03/26/23 03/26/23 03/26/23 17:58 18:19 20:42 Glucose 112 H POC Glucose 93 99 03/26/23 03/27/23 03/27/23 23:27 06:32 07:32 Glucose 94 93 POC Glucose 87 03/27/23 11:10 Glucose POC Glucose 124 H OUTPATIENT ANTIDIABETIC REGIMEN: * Tradjenta 5 mg daily * A1c 5.4% 01/09/23 ASSESSMENT: * Patient admitted 03/26 with encephalopathy. Patient has hx of hepatic encephalopathy, ascites secondary to cirrhosis. * Now alert and oriented, ordered type II DM diet, plan for discharge tomorrow with follow up with hepatology * BSGs have ranged 87-124 mg/dL in the past 24 hours with 2 units of insulin. Will continue the current novolog parameters * Hold basal PLAN FOR INPATIENT GLYCEMIC CONTROL: * Hold outpatient oral diabetes medications * Basal insulin * hold * Bolus insulin * NovoLog per scale ACHS or Q6hrs while NPO * Goal Range: Low 110 mg/dL - High 140 mg/dL * Correction Factor: 25 mg/dL/unit * Nutritional / Prandial insulin per carb ratio of 1 unit per 14 grams CHO consumed
[2023-03-27] MEDS: cefTRIAXone SODIUM 2,000 MG in DEXTROSE 5% 50 ML IV SCH (17:05)
[2023-03-27] MEDS ORDERED: ACETAMINOPHEN 325 MG TAB ONE ×2 (19:59→20:24)
[2023-03-27] MEDS: ENOXAPARIN 100 MG/1ML SYR SQ SCH (23:11)
[2023-03-28 07:07] LABS: Albumin Globulin Ratio 0.7 (0.9-2); Albumin Level 2.4 gm/dl (3.4-5.0); BUN Creatinine Ratio 6.9 (10-20); Bilirubin,Total 2.2 mg/dl (0.2-1.0); Creatinine Clr Calc Pharmacy 93.1 ml/min; Est GFR (African American) 95.2 ml/min; Est GFR (Non-African American) 82.2 ml/min; Globulin 3.5 gm/dl (2.5-4.0); Potassium 3.3 mmol/L (3.5-5.1); Total Protein 5.9 gm/dl (6.0-8.3)
--- NOTE | 2023-03-28 07:08 | Electrocardiogram Report ---
Test Reason : Blood Pressure : / mmHG Vent. Rate : 083 BPM Atrial Rate : 083 BPM P-R Int : 144 ms QRS Dur : 094 ms QT Int : 476 ms P-R-T Axes : 059 000 020 degrees QTc Int : 559 ms Poor data quality, interpretation may be adversely affected Normal sinus rhythm Cannot rule out Anterior infarct (cited on or before 15-MAR-2023) Prolonged QT Nonspecific T wave abnormality Abnormal ECG When compared with ECG of 15-MAR-2023 15:33, No significant change was found Confirmed by Jose Azul ([id number]) on 03/28/2023 7:08:10 AM Referred By: REFERRED SELF Confirmed By:Jose Azul
[2023-03-28] MEDS: oxyCODONE HCL IR 5 MG TAB (IMMEDIATE RELEASE) PO PRN (08:23)
[2023-03-28] MEDS: FAMOTIDINE 40 MG TABLET PO SCH (08:24)
[2023-03-28] MEDS: MAGNESIUM OXIDE 400 MG TAB PO SCH (08:24)
[2023-03-28] MEDS: VENLAFAXINE HCL XR 75 MG CAPXR PO SCH (08:25)
[2023-03-28] MEDS: POTASSIUM CHLORIDE CRTAB 20 MEQ TABCR PO SCH (08:25)
[2023-03-28] MEDS: DOCUSATE SODIUM 100 MG CAP PO SCH (08:25)
[2023-03-28] MEDS: rifAXIMin 550 MG TABLET PO SCH (08:25)
[2023-03-28] MEDS: CHOLECALCIFEROL 5,000 UNITS 125 MCG TAB PO SCH (08:26)
[2023-03-28] MEDS: METOPROLOL SUCC 25MG EXT REL TAB PO SCH (08:26)
[2023-03-28] MEDS: SPIRONOLACTONE 25 MG TAB PO SCH (08:27)
[2023-03-28] MEDS: PANTOprazole 40 MG TAB PO SCH (08:27)
[2023-03-28] MEDS: TORSEMIDE 10 MG TAB PO SCH (08:27)
[2023-03-28] MEDS: LACTULOSE SYRUP 20 GM/30 ML UDC PO SCH (08:28)
[2023-03-28] MEDS: INSULIN ASPART PER UNIT CHARGE SC SCH (08:36)
[2023-03-28 09:37] LABS: 7-Aminoclonaz, Confirm NEGATIVE ng/mL (<25); Amobarbital, Urine Conf NEGATIVE ng/mL (<100); Butalbital, Urine 237 ng/mL (<100); Hydro-Alp Ur, GC/MS 1170 ng/mL (<25); Hydroxyethylflurazepam, Conf NEGATIVE ng/mL (<50); Hydroxymidazolam Ur, GC/MS NEGATIVE ng/mL (<50); Hydroxytriazolam NEGATIVE ng/mL (<50); Lorazepam, Ur GC/MS NEGATIVE ng/mL (<50); Nordiazepam, Confirm NEGATIVE ng/mL (<50); Oxazepam Ur, GC/MS NEGATIVE ng/mL (<50); Pentobarbital, Urine Conf NEGATIVE ng/mL (<100); Phenobarbital, Urine NEGATIVE ng/mL (<100); Secobarbital, Urine Conf NEGATIVE ng/mL (<100); Temazepam, Confirm NEGATIVE ng/mL (<50)
[2023-03-28] MEDS: ENOXAPARIN 100 MG/1ML SYR SQ SCH (10:20)
--- NOTE | 2023-03-28 13:43 | Discharge Summary ---
Date of Service March 28, 2023 Admission HPI Per Admitting Provider 42yo F Chart Review: MELD- MELD17. 6% 3-Month Mortality Bili 2.9 Albumin 3.1 INR 1.4 Mod ascites, Mod encephalopathy Child Chaudhari Class C Admit 03/15/-03/17 for hyperammonemia + encephalopathy. Started on xifaxan. Outpt GI 03/14/23. GI concerned for med compliance. Pending enrollment with hepatology in June. Per GI 03/05/23: Lactulose 30g TID, Xifaxan 550mg BID, Aldactone:lasix 100:40 for ascites (50 mg Aldactone twice daily, Lasix 80 mg twice daily (. Had paracentesis at that hospitalization 5 L withdrawn 03/06. Admitted 01/08 - 01/10/2023 for pain, lethargy, confusion 2/2 hepatic encepha lopathy worsened with chronic opioid use and GI bleed. Switched from aspirin to Plavix during that admission. 02/04 - 02/09/2023: Confusion, falls, hepatic encephalopathy in the setting of UTI. Paracentesis of 2.2 L and discharged to [facility] Admitted 02/14 - 02/17/2023 with altered mental status suspected due to hepatic encephalopathy with additional baclofen use and hyponatremia. Baclofen discon tinued, mental state improved. Return to [facility] and was discharged home 03/01/2023 Admitted 03/04/2023 - 03/07/2023 for upper abdominal pain, back pain, poor p.o. intake and significant ascites. In admission she saw GI who made diuretic recommendations, patient had 5 L paracentesis on 03/06 by IR. She was discharged to [facility] 03/07 and then was discharged home 03/14. MHX: Hepatic Encephalopathy, migraine without aura, GERD, portal HTN, GILLESPIE cirrhosis, thrombocytopenia NAFLD with cirrhosis, known esophageal varices and gastric ulcer (per EGD 11/2022 at [facility]). Follows [facility] Hepatology. CT-A/P: 1. The liver is cirrhotic in morphology and heterogeneous in attenuation. 2. There is nonocclusive thrombus within the main portal vein, the portosplenic confluence, and the splenic vein. Thrombus in the splenic vein has significantly increased from prior studies. 3. Marked splenomegaly, a moderate volume of abdominopelvic ascites, recanalization of the periumbilical vein, upper abdominal varices, and perirectal varices indicate portal hypertension. 4. No acute infectious or inflammatory findings are identified and there is no evidence of solid organ injury in the abdomen or pelvis. 5. Additional findings as above. Exam limited by somnolence and encephalopathy. Answers some questions appropriately, increased speech latency and falls asleep easily Taking medication as directed. Thinks she is taking her rifaxamin and lactulose as directed. Takes oxycodone TID. No extra. Denies taking butalbitol for headache, takes excedrine instead once every few days. Last hospitalization reports they took of 9L paracentis Paracentesis every 2 weeks current. With tha IR at [facility]. Endorses abdominal discomfort. Denies fever, chills, sweats. Denies melena/hem atochezia/hematemesis. Does feel nauseous. Does feel shaky. Reports she has taking all medications as directed and took her medications this morning Medical History: Reviewed Medications: Reviewed Surgical History: Reviewed Family history: Reviewed Allergies: Reviewed Social History: Denies tobacco, etoh use Code Status: Full Code Principal Diagnosis Splenic vein thrombosis Discharge Exam The patient is awake, alert and oriented 3, well developed and well nourished, HEENT--PERRL, EOMI, mucous membranes and oropharynx mildly dry Neck--supple. No JVD. No bruits. Thyroid normal, trachea midline, no adenopathy. Heart--normal S1 and S2. No murmurs, rubs or gallops. Lungs--clear bilaterally, no respiratory distress, no accessory muscle use. Abdomen--distended abdomen Extremities--no cyanosis or clubbing. No edema. Dermatologic--normal skin turgor, normal color, no abnormal lymph nodes, no rash. Neurologic--coarse tremors Rheumatologic--normal range of motion. Psychiatric--normal affect. Discharge Data Allergies Allergy/AdvReac Type Severity Reaction Status Date / Time codeine Allergy Unknown Hives, Verified 03/14/23 15:40 [From Tylenol-Codeine #3] skin redness (Tyenol #3) Consultations 03/26/23 12:44 ED Decision to Admit Stat 03/26/23 17:20 Consult Gastroenterology Routine Ordered Studies 03/26/23 09:39 CT cervical spine wo con Stat CT chest diagnostic w con Stat CT head/brain wo con Stat 03/26/23 09:41 CT abd pelvis IV con only Stat 03/26/23 15:22 IR paracentesis abd w/img US Stat Hospital Course (1) Acute hepatic encephalopathy: Acute hepatic encephalopathy, exacerbated by use of narcotics -Patient continues to take narcotics at home despite repeated attempts to wean her off -Also claims to be compliant with her lactulose and rifaximin -Serum ammonia level 51 on admission, -Continue lactulose and rifaximin, titrate to at least 3 bowel movements daily. -Avoid narcotics (2) Diabetes mellitus: Type II DM A1c 5.4 on 12/2022 ISS Goal BSG [id number] - Glycemic consult placed, following (3) Ascites: Secondary to liver cirrhosis Patient had paracentesis yesterday at the ER, with tapping of 4 L of fluid. Sent to the labs, awaiting results. Patient has an appointment with transplant team at [facility] today, she has been urged to make the appointment. 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 Lawrence at [facility] hepatology. Patient is scheduled to establish with [facility] hepatology as outpatient this coming week. Given advanced portal vein thrombus despite Plavix treatment do recommend anticoagulation at this time. While sometimes these are not treated and followed, given that she is a potential transplant candidate in the future and untreated advancement of thrombus is with increased risk of bleeding due to portal pressure do agree with anticoagulation at this time. recommend Lovenox twice daily as therapeutic option, studies with good data for efficacy and recommend use out to 1 year. Can also be held around paracentesis as needed patient is at risk of bleeding, her platelets are currently improved from prior. Would not hold anticoagulation based on these unless critically low. She is at risk of bleeding, and if bleeding would require transfer to tertiary care where IR and additional services are available; however do not recommend that patient be transferred at this time. Recommend initiating anticoagulation and following and then if clinical bleeding occurs, transfer at that time. Appreciate consultation. We will start Lovenox 1 M PK twice daily 6 hours post paracentesis Child-Chaudhari, MELD score is noted (5) Esophageal varices: (6) Hypokalemia: (7) Hepatic encephalopathy: (8) History of CVA (cerebrovascular accident): (9) Opioid dependence: (10) Sleep apnea: (11) Neurogenic bladder: Plan Patient has an appointment with [facility] transplant team today, she will make the appointment Total Time Total Time Spent Total Time Spent (In Minutes): 35 Discharge Plan Discharge Items Patient Disposition: Home - Self-Care Reason For Visit: AMS, SPLENTIC THROMBOSIS, GILLESPIE Discharge Diagnosis: splenic thrombosis Activity: Resume your previous activity Non-emergency contact: Primary Care Provider and [employer] Call non-emergency contact if: you have any medication questions Follow-up/Referrals: Endy Stanley D.O. [Primary Care Provider] - Diet: Regular Addtl Attending Provider Instructions: please follow up with your transplant team at [facility] Pending Studies at Discharge: No Stand-Alone Forms: [employer], Smoking Cessation Medications and DC Order Prescriptions: New enoxaparin 100 mg/mL Syringe 100 mg subcut Q12H 30 Days Qty: 60 0RF Continued acetaminophen 500 mg capsule 500 mg PO Q6H PRN (Reason: Pain) venlafaxine 75 mg tablet 75 mg PO DAILY Rx Instructions: per they are trying to cut her down and wean her off pantoprazole 40 mg tablet,delayed release (DR/EC) 40 mg PO DAILY docusate sodium 100 mg capsule 100 mg PO DAILY bisacodyl 10 mg suppository 10 mg MO DAILY PRN (Reason: Constipation) hydroxyzine HCl 10 mg tablet 10 mg PO TID PRN (Reason: other) levothyroxine 300 mcg tablet 300 mcg PO DAILY levothyroxine 25 mcg Tablet 0 mcg PO DAILY Rx Instructions: isn't sure, he says he only saw 300 mg on her paper. spironolactone 25 mg Tablet 75 mg PO BID17 30 Days Qty: 180 0RF magnesium oxide 400 mg (241.3 mg magnesium) Tablet 400 mg PO BID Qty: 60 0RF lactulose 20 gram/30 mL solution 20 g PO TID Qty: 1200 0RF torsemide 20 mg tablet See Rx Instructions .ROUTE .COMPLEX Rx Instructions: per pt she takes 2 two times daily polyethylene glycol 3350 [Miralax] 17 gram Powder In Packet 17 g PO BID PRN (Reason: Constipation) Rx Instructions: gIVE AT LUNCH naloxone 0.4 mg/mL Solution 0 mg intranasal DIRECTED PRN (Reason: .OPIOD OD) prochlorperazine maleate 5 mg Tablet 5 mg PO Q6 PRN (Reason: Nausea) ondansetron HCl 4 mg Tablet 8 mg PO Q4 PRN (Reason: Nausea) Rx Instructions: per pt 8 mg sennosides-docusate sodium [Senna-S] 8.6-50 mg Tablet 1 tab-cap PO DAILY PRN (Reason: Constipation) valacyclovir 500 mg Tablet 500 mg PO Q8 PRN (Reason: .BREAKOUTS) famotidine 20 mg Tablet 40 mg PO DAILY ropinirole 2 mg Tablet 4 mg PO HS PRN (Reason: .restless legs) Rx Instructions: per pt she takes 3 tablet administer 1-3 hours before bedtime metoprolol succinate [Toprol XL] 25 mg Tablet Extended Release 24 Hr 12.5 mg PO DAILY oxycodone 5 mg Tablet 15 mg PO Q6H Rx Instructions: MAY REQUEST LOWER DOSE OF LESS POTENT MED. Mouth [place] Aerosol,[place] 1 spray MUCOUS MEMBRANE QID PRN (Reason: .DRY MOUTH) cholecalciferol (vitamin D3) [Vitamin D3] 125 mcg (5,000 unit) Tablet 125 mcg PO DAILY Xifaxan 550 mg tablet 550 mg PO Q12 Tradjenta 5 mg tablet 5 mg PO DAILY potassium chloride 20 mEq tablet extended release 20 meq PO BID Hold Instructions: Resume on 03/08/23. can resume if repeat labs with hypokalemia Combivent Respimat 20-100 mcg/actuation Mist 1 puff INHALATION QID PRN (Reason: Other) Rx Instructions: space evenly during waking hours Kristalose Powder 1 dose PO TID Rx Instructions: 30 GRAM PER 1.5 PACKET. Tums Gas Relief 750mg/80mg 1 tab PO Q6 Discharge Orders: Discharge Order (Routine); Ordered 03/28/23 Ordered By: Tere Carrion Admission Data Admit Date/Time: 03/26/23 15:18 Attending Provider: Tere Carrion Admit Provider: Davide Galvez Primary Care Provider: Endy Stanley Other Providers: Davide Galvez ; Horacio Barrett G. Other Interventions: Discharge Summary Assessment (RN) Last Done: 03/28/23 10:21 Coding Level of Care Code 68266 INP/OBS DISCH >30 MIN Diagnoses Acute hepatic encephalopathy K76.82 Diabetes mellitus E11.9 Ascites R18.8 Splenic vein thrombosis I82.890 Esophageal varices I85.00 Hypokalemia E87.6 Hepatic encephalopathy K72.90 History of CVA (cerebrovascular accident) Z86.73 Opioid dependence F11.20 Sleep apnea G47.30 Neurogenic bladder N31.9 Time Spent (min) 35
[2023-03-29] MEDS ORDERED: LEVOTHYROXINE SODIUM 125 MCG TABLET PO SCH (06:30)
== END 2023-03-28 11:06 | disposition home or self-care (01) | DRG 441 ==
LOC: ED 08:08 → 2E 15:18 → SUATTDRO 15:18 → 2E 16:13

== ENCOUNTER 2023-03-30 11:38 | Inpatient (IN) ==
[2023-03-30] MEDS ORDERED: RAPID SEQUENCE INDUCTION BAG ONE (11:39)
[2023-03-30] MEDS ORDERED: NALOXONE HCL 0.4 MG/1 ML VIAL/CARP ONE (11:40)
--- NOTE | 2023-03-30 11:49 | Emergency Department Note ---
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 (Negative) Urine Glucose (UA) Negative (Negative) Urine Ketones Negative (Negative) Urine Blood Negative (Negative) Urine Nitrite Negative (Negative) Urine Bilirubin Negative (Negative) Urine Urobilinogen Negative (Negative) Ur Leukocyte Esterase Negative (Negative) Salicylates (3.0-30) mg/dl Urine Opiates Screen Pos H (Neg) Ur Methadone, Qual Neg (Neg) Acetaminophen (10-30) ug/ml Urine Barbiturates Pos H (Neg) Ur Phencyclidine (PCP) Neg (Neg) U Amphetamin/Meth Scrn Neg (Neg) MDMA (Ecstasy) Screen Neg (Neg) U Benzodiazepines Scrn Pos H (Neg) Ur Cocaine Metabolite Neg (Neg) U Marijuana (THC) Screen Neg (Neg) Ethyl Alcohol mg/dL (<10.0) mg/dl SARS-CoV-2, RNA, NAAT (NEGATIVE) 03/30/23 03/30/23 03/30/23 Range/Units 12:27 12:53 12:53 WBC (4.8-10.8) K/ul RBC (4.20-5.40) M/uL Hgb (12.0-16.0) g/dl POC Hgb (12.0-16.0) g/dl Hct (37.0-47.0) % POC Hct (37-47) % MCV (80.0-100.0) fL MCH (25.0-34.0) pg MCHC (32.0-36.0) g/dL RDW Std Deviation (36.4-46.3) fL RDW Coeff of Henna (11.5-14.5) % Plt Count (130-400) K/uL MPV (9.4-12.4) fL Immature Gran % (Auto) % Neut % (Auto) % Lymph % (Auto) % [place] % (Auto) % Eos % (Auto) % Baso % (Auto) % Neut # (Auto) (1.40-6.50) K/uL Lymph # (Auto) (1.2-3.4) K/uL Waller # (Auto) (0.11-0.59) K/uL Eos # (Auto) (0-0.50) K/uL Baso # (Auto) (0-0.2) K/uL Immature Gran # (Auto) (0.01-0.20) K/uL Polychromasia Anisocytosis PT (9.0-12.0) Seconds INR (0.9-1.1) ABG pH (7.35-7.45) ABG pCO2 (35-46) mmHg ABG pO2 (80-95) mmHg ABG HCO3 (19-24) mmol/L ABG O2 Saturation (90-95) % ABG Base Excess (-9-1.8) mEq/L Rodrigue Test (Pos) Oxygen Given POC Sodium (135-144) mmol/L Sodium (136-145) mmol/L POC Potassium (3.3-5.0) mmol/L Potassium (3.5-5.1) mmol/L POC Chloride (101-112) mmol/L Chloride (98-107) mmol/L Carbon Dioxide (21-32) mmol/L POC Total CO2 (24-31) mmol/L Anion Gap (3-11) POC Anion Gap (16-25) mmol/L POC BUN (7-18) mg/dl BUN (6-23) mg/dl Creatinine (0.6-1.2) mg/dl POC Creatinine (0.6-1.3) mg/dl Est Cr Clr Drug Dosing ml/min Est GFR ( Amer) ml/min Est GFR (Non-Af Amer) ml/min BUN/Creatinine Ratio (10-20) Glucose (70-99(Fasting)) mg/dl POC Glucose (other) (70-99) mg/dl Lactate 4.5 H* (0.4-2.0) mmol/L Calcium (8.6-10.3) mg/dl POC Ioniz Calcium Carol (1.12-1.32) mmol/l Magnesium (1.7-2.4) mg/dl Total Bilirubin (0.2-1.0) mg/dl AST (13-39) U/L ALT (7-52) U/L Alkaline Phosphatase (34-104) U/L Ammonia (18-72) umol/L Troponin I High Sens (0-14) pg/ml Total Protein (6.0-8.3) gm/dl Albumin (3.4-5.0) gm/dl Globulin (2.5-4.0) gm/dl Albumin/Globulin Ratio (0.9-2) Procalcitonin 0.22 Urine Color Urine Appearance (Clear) Urine pH (4.5-7.5) Ur Specific [place] (1.000-1.030) Urine Protein (Negative) Urine Glucose (UA) (Negative) Urine Ketones (Negative) Urine Blood (Negative) Urine Nitrite (Negative) Urine Bilirubin (Negative) Urine Urobilinogen (Negative) Ur Leukocyte Esterase (Negative) Salicylates (3.0-30) mg/dl Urine Opiates Screen (Neg) Ur Methadone, Qual (Neg) Acetaminophen (10-30) ug/ml Urine Barbiturates (Neg) Ur Phencyclidine (PCP) (Neg) U Amphetamin/Meth Scrn (Neg) MDMA (Ecstasy) Screen (Neg) U Benzodiazepines Scrn (Neg) Ur Cocaine Metabolite (Neg) U Marijuana (THC) Screen (Neg) Ethyl Alcohol mg/dL < 10.0 (<10.0) mg/dl SARS-CoV-2, RNA, NAAT (NEGATIVE) 03/30/23 03/30/23 03/30/23 Range/Units 14:14 14:14 15:15 WBC (4.8-10.8) K/ul RBC (4.20-5.40) M/uL Hgb (12.0-16.0) g/dl POC Hgb (12.0-16.0) g/dl Hct (37.0-47.0) % POC Hct (37-47) % MCV (80.0-100.0) fL MCH (25.0-34.0) pg MCHC (32.0-36.0) g/dL RDW Std Deviation (36.4-46.3) fL RDW Coeff of Henna (11.5-14.5) % Plt Count (130-400) K/uL MPV (9.4-12.4) fL Immature Gran % (Auto) % Neut % (Auto) % Lymph % (Auto) % [place] % (Auto) % Eos % (Auto) % Baso % (Auto) % Neut # (Auto) (1.40-6.50) K/uL Lymph # (Auto) (1.2-3.4) K/uL [place] # (Auto) (0.11-0.59) K/uL Eos # (Auto) (0-0.50) K/uL Baso # (Auto) (0-0.2) K/uL Immature Gran # (Auto) (0.01-0.20) K/uL Polychromasia Anisocytosis PT (9.0-12.0) Seconds INR (0.9-1.1) ABG pH (7.35-7.45) ABG pCO2 (35-46) mmHg ABG pO2 (80-95) mmHg ABG HCO3 (19-24) mmol/L ABG O2 Saturation (90-95) % ABG Base Excess (-9-1.8) mEq/L Rodrigue Test (Pos) Oxygen Given POC Sodium (135-144) mmol/L Sodium (136-145) mmol/L POC Potassium (3.3-5.0) mmol/L Potassium (3.5-5.1) mmol/L POC Chloride (101-112) mmol/L Chloride (98-107) mmol/L Carbon Dioxide (21-32) mmol/L POC Total CO2 (24-31) mmol/L Anion Gap (3-11) POC Anion Gap (16-25) mmol/L POC BUN (7-18) mg/dl BUN (6-23) mg/dl Creatinine (0.6-1.2) mg/dl POC Creatinine (0.6-1.3) mg/dl Est Cr Clr Drug Dosing ml/min Est GFR ( Amer) ml/min Est GFR (Non-Af Amer) ml/min BUN/Creatinine Ratio (10-20) Glucose (70-99(Fasting)) mg/dl POC Glucose (other) (70-99) mg/dl Lactate 5.1 H* (0.4-2.0) mmol/L Calcium (8.6-10.3) mg/dl POC Ioniz Calcium Carol (1.12-1.32) mmol/l Magnesium (1.7-2.4) mg/dl Total Bilirubin (0.2-1.0) mg/dl AST (13-39) U/L ALT (7-52) U/L Alkaline Phosphatase (34-104) U/L Ammonia (18-72) umol/L Troponin I High Sens 58.9 H* (0-14) pg/ml Total Protein (6.0-8.3) gm/dl Albumin (3.4-5.0) gm/dl Globulin (2.5-4.0) gm/dl Albumin/Globulin Ratio (0.9-2) Procalcitonin Urine Color Urine Appearance (Clear) Urine pH (4.5-7.5) Ur Specific [place] (1.000-1.030) Urine Protein (Negative) Urine Glucose (UA) (Negative) Urine Ketones (Negative) Urine Blood (Negative) Urine Nitrite (Negative) Urine Bilirubin (Negative) Urine Urobilinogen (Negative) Ur Leukocyte Esterase (Negative) Salicylates (3.0-30) mg/dl Urine Opiates Screen (Neg) Ur Methadone, Qual (Neg) Acetaminophen (10-30) ug/ml Urine Barbiturates (Neg) Ur Phencyclidine (PCP) (Neg) U Amphetamin/Meth Scrn (Neg) MDMA (Ecstasy) Screen (Neg) U Benzodiazepines Scrn (Neg) Ur Cocaine Metabolite (Neg) U Marijuana (THC) Screen (Neg) Ethyl Alcohol mg/dL (<10.0) mg/dl SARS-CoV-2, RNA, NAAT NEGATIVE (NEGATIVE) 03/30/23 Range/Units 15:15 WBC (4.8-10.8) K/ul RBC (4.20-5.40) M/uL Hgb (12.0-16.0) g/dl POC Hgb (12.0-16.0) g/dl Hct (37.0-47.0) % POC Hct (37-47) % MCV (80.0-100.0) fL MCH (25.0-34.0) pg MCHC (32.0-36.0) g/dL RDW Std Deviation (36.4-46.3) fL RDW Coeff of [place] (11.5-14.5) % Plt Count (130-400) K/uL MPV (9.4-12.4) fL Immature Gran % (Auto) % Neut % (Auto) % Lymph % (Auto) % [place] % (Auto) % Eos % (Auto) % Baso % (Auto) % Neut # (Auto) (1.40-6.50) K/uL Lymph # (Auto) (1.2-3.4) K/uL [place] # (Auto) (0.11-0.59) K/uL Eos # (Auto) (0-0.50) K/uL Baso # (Auto) (0-0.2) K/uL Immature Gran # (Auto) (0.01-0.20) K/uL Polychromasia Anisocytosis PT (9.0-12.0) Seconds INR (0.9-1.1) ABG pH 7.30 L (7.35-7.45) ABG pCO2 57 H (35-46) mmHg ABG pO2 127 H (80-95) mmHg ABG HCO3 28 H (19-24) mmol/L ABG O2 Saturation 99.6 H (90-95) % ABG Base Excess 0.4 (-9-1.8) mEq/L Rodrigue Test POS (Pos) Oxygen Given 4 L POC Sodium (135-144) mmol/L Sodium (136-145) mmol/L POC Potassium (3.3-5.0) mmol/L Potassium (3.5-5.1) mmol/L POC Chloride (101-112) mmol/L Chloride (98-107) mmol/L Carbon Dioxide (21-32) mmol/L POC Total CO2 (24-31) mmol/L Anion Gap (3-11) POC Anion Gap (16-25) mmol/L POC BUN (7-18) mg/dl BUN (6-23) mg/dl Creatinine (0.6-1.2) mg/dl POC Creatinine (0.6-1.3) mg/dl Est Cr Clr Drug Dosing ml/min Est GFR ( Amer) ml/min Est GFR (Non-Af Amer) ml/min BUN/Creatinine Ratio (10-20) Glucose (70-99(Fasting)) mg/dl POC Glucose (other) (70-99) mg/dl Lactate (0.4-2.0) mmol/L Calcium (8.6-10.3) mg/dl POC Ioniz Calcium Carol (1.12-1.32) mmol/l Magnesium (1.7-2.4) mg/dl Total Bilirubin (0.2-1.0) mg/dl AST (13-39) U/L ALT (7-52) U/L Alkaline Phosphatase (34-104) U/L Ammonia (18-72) umol/L Troponin I High Sens (0-14) pg/ml Total Protein (6.0-8.3) gm/dl Albumin (3.4-5.0) gm/dl Globulin (2.5-4.0) gm/dl Albumin/Globulin Ratio (0.9-2) Procalcitonin Urine Color Urine Appearance (Clear) Urine pH (4.5-7.5) Ur Specific [place] (1.000-1.030) Urine Protein (Negative) Urine Glucose (UA) (Negative) Urine Ketones (Negative) Urine Blood (Negative) Urine Nitrite (Negative) Urine Bilirubin (Negative) Urine Urobilinogen (Negative) Ur Leukocyte Esterase (Negative) Salicylates (3.0-30) mg/dl Urine Opiates Screen (Neg) Ur Methadone, Qual (Neg) Acetaminophen (10-30) ug/ml Urine Barbiturates (Neg) Ur Phencyclidine (PCP) (Neg) U Amphetamin/Meth Scrn (Neg) MDMA (Ecstasy) Screen (Neg) U Benzodiazepines Scrn (Neg) Ur Cocaine Metabolite (Neg) U Marijuana (THC) Screen (Neg) Ethyl Alcohol mg/dL (<10.0) mg/dl SARS-CoV-2, RNA, NAAT (NEGATIVE) Administered Medications Sodium Chloride (Nss 1000ml) 2,000 mls @ 999 mls/hr IV .Q2H1M ONE Stop: 03/30/23 16:32 Last Admin: 03/30/23 15:48 Dose: 999 mls/hr Documented By: ACC Discontinued Medications Ceftriaxone Sodium (Rocephin) 2,000 mg in 70 mls @ 140 mls/hr IV NOW STA Stop: 03/30/23 12:27 Last Infusion: 03/30/23 13:40 Dose: 0 mls/hr Documented By: Admin: 03/30/23 12:29 Dose: 140 mls/hr Documented By: ARCHANAK Sodium Chloride (Nss 1000ml) 1,000 mls @ 999 mls/hr IV .Q1H1M ONE Stop: 03/30/23 14:27 Last Admin: 03/30/23 13:49 Dose: 999 mls/hr Documented By: AP Ioversol (Optiray 350 500ml) 87 ml IV ONCE ONE Stop: 03/30/23 15:39 Last Admin: 03/30/23 15:40 Dose: 87 ml Documented By: LANETTE Lactulose (Lactulose Syrup 20 Gm/30 Ml Udc) 20 gm NG NOW ONE Stop: 03/30/23 12:21 Last Admin: 03/30/23 12:52 Dose: 20 gm Documented By: MITZI Miscellaneous (Rapid Sequence Induction Bag) Confirm Administered Dose 1 each N/A .STK-MED ONE Stop: 03/30/23 11:40 Last Admin: 03/30/23 12:57 Dose: Not Given Documented By: MITZI Naloxone HCl (Naloxone Hcl 0.4 Mg/1 Ml Vial/Carp) Confirm Administered Dose 0.8 mg .ROUTE .STK-MED ONE Stop: 03/30/23 11:41 Last Admin: 03/30/23 12:57 Dose: Not Given Documented By: MITZI Imaging Data Radiologist's Impression: Head CT 03/30/23 11:45 CT head/brain wo con CLINICAL HISTORY: 42 years-old Female with altered mental status. Acute altered mental status TECHNIQUE: Multiple axial CT images of the head were obtained without contrast. A dose lowering technique was utilized adhering to the principles of ALARA. CT DOSE: 1094.10 mGy.cm COMPARISON: 03/26/2023 FINDINGS: No acute intracranial hemorrhage, midline shift, intracranial mass, hydrocephalus, territorial ischemia or abnormal extra-axial collection. Calcifications of the falx cerebri. The study is motion degraded. Unchanged hypodense focus in the inferior left lentiform nuclear distribution, likely a prominent perivascular space or chronic lacunar infarct. The calvarium is intact. Small left maxillary air-fluid level. Mastoid air cells are clear. IMPRESSION: No acute intracranial abnormality. ACT 112: Negative or not required by law. The above report was generated using voice recognition software. It may contain grammatical, syntax or spelling errors. Electronically signed by: Lorenzo Ocampo M.D. 03/30/2023 12:24 PM Chest X-Ray 03/30/23 12:31 XR chest 1V portable HISTORY: NG tube placement. COMPARISON: Chest 03/26/2023. FINDINGS: A nasogastric tube is not identified on this study. Cervical spinal fusion hardware persists. There are low lung volumes. Perihilar interstitial thickening could be due to the vascular crowding from the low lung volumes or mild congestive change. Otherwise, no new focal lung consolidations to suggest a pneumonia. No pleural effusions. No pneumothorax. The cardiac silhouette is stable in size. No acute fractures. IMPRESSION: 1. A nasogastric tube is not identified on this study. 2. Low lung volumes. 3. Perihilar interstitial thickening. This is likely due to vascular crowding from the low lung volumes. Mild congestive change could also have a similar appearance. ACT 112: Negative or not required by law. Electronically signed by: Forrest Byrne M.D. 03/30/2023 3:09 PM Discharge Plan Visit Data Chief Complaint: Altered Mental Status Stated Complaint: SEMI RESPONSIVE, ED Provider: Nighat Best Discharge Problem: AMS (altered mental status), Hyperammonemia, Non-ST elevation GA (NSTEMI), JOANNA (acute kidney injury), Elevated lactic acid level Forms Stand Alone Forms: [facility] Prescriptions Prescriptions: No Action acetaminophen 500 mg capsule 500 mg PO Q6H PRN (Reason: Pain) venlafaxine 75 mg tablet 75 mg PO DAILY Rx Instructions: per they are trying to cut her down and wean her off pantoprazole 40 mg tablet,delayed release (DR/EC) 40 mg PO DAILY docusate sodium 100 mg capsule 100 mg PO DAILY bisacodyl 10 mg suppository 10 mg NE DAILY PRN (Reason: Constipation) hydroxyzine HCl 10 mg tablet 10 mg PO TID PRN (Reason: other) levothyroxine 300 mcg tablet 300 mcg PO DAILY levothyroxine 25 mcg Tablet 0 mcg PO DAILY Rx Instructions: isn't sure, he says he only saw 300 mg on her paper. magnesium oxide 400 mg (241.3 mg magnesium) Tablet 400 mg PO BID Qty: 60 0RF lactulose 20 gram/30 mL solution 20 g PO TID Qty: 1200 0RF enoxaparin 100 mg/mL Syringe 100 mg subcut Q12H 30 Days Qty: 60 0RF polyethylene glycol 3350 [Miralax] 17 gram Powder In Packet 17 g PO BID PRN (Reason: Constipation) Rx Instructions: gIVE AT LUNCH naloxone 0.4 mg/mL Solution 0 mg intranasal DIRECTED PRN (Reason: .OPIOD OD) prochlorperazine maleate 5 mg Tablet 5 mg PO Q6 PRN (Reason: Nausea) ondansetron HCl 4 mg Tablet 8 mg PO Q4 PRN (Reason: Nausea) Rx Instructions: per pt 8 mg sennosides-docusate sodium [Senna-S] 8.6-50 mg Tablet 1 tab-cap PO DAILY PRN (Reason: Constipation) valacyclovir 500 mg Tablet 500 mg PO Q8 PRN (Reason: .BREAKOUTS) famotidine 20 mg Tablet 40 mg PO DAILY ropinirole 2 mg Tablet 4 mg PO HS PRN (Reason: .restless legs) Rx Instructions: per pt she takes 3 tablet administer 1-3 hours before bedtime metoprolol succinate [Toprol XL] 25 mg Tablet Extended Release 24 Hr 12.5 mg PO DAILY oxycodone 5 mg Tablet 15 mg PO Q6H Rx Instructions: MAY REQUEST LOWER DOSE OF LESS POTENT MED. Mouth Kote Aerosol,Excelsior 1 spray MUCOUS MEMBRANE QID PRN (Reason: .DRY MOUTH) cholecalciferol (vitamin D3) [Vitamin D3] 125 mcg (5,000 unit) Tablet 125 mcg PO DAILY Xifaxan 550 mg tablet 550 mg PO Q12 Tradjenta 5 mg tablet 5 mg PO DAILY potassium chloride 20 mEq tablet extended release 20 meq PO BID Hold Instructions: Resume on 03/08/23. can resume if repeat labs with hypokalemia Combivent Respimat 20-100 mcg/actuation Mist 1 puff INHALATION QID PRN (Reason: Other) Rx Instructions: space evenly during waking hours Kristalose Powder 1 dose PO TID Rx Instructions: 30 GRAM PER 1.5 PACKET. Tums Gas Relief 750mg/80mg 1 tab PO Q6 alprazolam 1 mg tablet See Rx Instructions .ROUTE .COMPLEX PRN (Reason: Other) Rx Instructions: as directed bumetanide 1 mg tablet 0 mg PO USEASDIRECTD Rx Instructions: took first dose last night at 7pm. thinks this is what caused her to be sick bupropion HCl 150 mg tablet extended release 24 hr 150 mg PO DAILY spironolactone 25 mg tablet 0 mg PO [id number] Rx Instructions: per its now 100 mg bid Referrals Referrals: Endy Stanley D.O. [Primary Care Provider] -
[2023-03-30] MEDS ORDERED: cefTRIAXone SODIUM 2,000 MG/70 ML BAG IV STA (11:58)
[2023-03-30 12:05] LABS: Basophils # (auto) 0.11 K/uL (0-0.2); Basophils % (auto) 0.8 %; Eosinophils # (auto) 0.01 K/uL (0-0.50); Eosinophils % (auto) 0.1 %; Hematocrit (blood only) 39.3 % (37.0-47.0); Hemoglobin 12.3 g/dl (12.0-16.0); Immature Granulocytes # (auto) 0.05 K/uL (0.01-0.20); Immature Granulocytes % (auto) 0.4 %; Lymphocytes # (auto) 1.63 K/uL (1.2-3.4); Lymphocytes % (auto) 12.4 %; Mean Corpuscular Hemoglobin 28.5 pg (25.0-34.0); Mean Corpuscular Hgb Conc 31.3 g/dL (32.0-36.0); Mean Platelet Volume 8.7 fL (9.4-12.4); Monocytes # (auto) 1.57 K/uL (0.11-0.59); Monocytes % (auto) 11.9 %; Neutrophils # (auto) 9.82 K/uL (1.40-6.50); Neutrophils % (auto) 74.4 %; Platelet Count 182 K/uL (130-400); RDW Coefficient of Variation 21.2 % (11.5-14.5); RDW Standard Deviation 69.5 fL (36.4-46.3); Red Blood Count 4.32 M/uL (4.20-5.40); White Blood Count 13.19 K/ul (4.8-10.8)
[2023-03-30 12:07] LABS: iSTAT Creatinine 1.4 mg/dl (0.6-1.3); iSTAT Hemoglobin 13.3 g/dl (12.0-16.0); iSTAT Ionized Calcium 1.04 mmol/l (1.12-1.32); iSTAT Potassium 4.7 mmol/L (3.3-5.0)
[2023-03-30 12:16] LABS: Acetaminophen < 3 ug/ml (10-30); Salicylate < 3.0 mg/dl (3.0-30)
[2023-03-30 12:20] LABS: Albumin Globulin Ratio 0.7 (0.9-2); Albumin Level 2.7 gm/dl (3.4-5.0); BUN Creatinine Ratio 9.2 (10-20); Bilirubin,Total 2.6 mg/dl (0.2-1.0); Calcium 8.7 mg/dl (8.6-10.3); Creatinine Clr Calc Pharmacy 69.6 ml/min; Est GFR (African American) 58.6 ml/min; Est GFR (Non-African American) 50.6 ml/min; Globulin 4.1 gm/dl (2.5-4.0); Potassium 4.6 mmol/L (3.5-5.1); Total Protein 6.8 gm/dl (6.0-8.3)
[2023-03-30] MEDS ORDERED: LACTULOSE SYRUP 20 GM/30 ML UDC NG ONE (12:20)
[2023-03-30 12:23] LABS: Anisocytosis Present; Polychromasia 1+
--- NOTE | 2023-03-30 12:25 | CT Scan Report ---
CT head/brain wo con CLINICAL HISTORY: 42 years-old Female with altered mental status. Acute altered mental status TECHNIQUE: Multiple axial CT images of the head were obtained without contrast. A dose lowering tech nique was utilized adhering to the principles of ALARA. CT DOSE: 1094.10 mGy.cm COMPARISON: 03/26/2023 FINDINGS: No acute intracranial hemorrhage, midline shift, intracranial mass, hydrocephalus, territorial ischem ia or abnormal extra-axial collection. Calcifications of the falx cerebri. The study is motion degrad ed. Unchanged hypodense focus in the inferior left lentiform nuclear distribution, likely a prominent perivascular space or chronic lacunar infarct. The calvarium is intact. Small left maxillary air-flu id level. Mastoid air cells are clear. IMPRESSION: No acute intracranial abnormality. ACT 112: Negative or not required by law. The above report was generated using voice recognition software. It may contain grammatical, syntax o r spelling errors. Electronically signed by: Lorenzo Ocampo M.D. 03/30/2023 12:24 PM
[2023-03-30 12:29] LABS: Troponin I High Sensitivity 67.6 pg/ml (0-14)
[2023-03-30 12:35] LABS: INR 1.6 (0.9-1.1); Prothrombin Time 16.7 Seconds (9.0-12.0)
[2023-03-30 12:40] LABS: Appearance Urine Clear (Clear); Bilirubin Urine Negative (Negative); Blood Urine Negative (Negative); Color Urine Dark Yellow; Glucose Urine UA Negative (Negative); Ketones Urine Negative (Negative); Leukocyte Esterase Urine Negative (Negative); Nitrite Urine Negative (Negative); Protein Urine Negative (Negative); Specific Gravity Urine 1.016 (1.000-1.030); Urobilinogen Urine Negative (Negative)
--- NOTE | 2023-03-30 12:45 | Electrocardiogram Report ---
Test Reason : Blood Pressure : / mmHG Vent. Rate : 106 BPM Atrial Rate : 106 BPM P-R Int : 136 ms QRS Dur : 082 ms QT Int : 398 ms P-R-T Axes : 065 000 028 degrees QTc Int : 528 ms Sinus tachycardia Low voltage QRS Prolonged QT Abnormal ECG Confirmed by Rafal Barrera ([id number]) on 03/30/2023 12:44:50 PM Referred By: Confirmed By:Adi Barrera
[2023-03-30 13:22] LABS: Amphetamines+Metham, Urine Neg (Neg); Barbiturates, Urine Pos (Neg); Benzodiazepine, Urine Pos (Neg); Cocaine, Urine Neg (Neg); MDMA (Ecstacy), Urine Neg (Neg); Methadone, Urine Neg (Neg); Opiate, Urine Pos (Neg); Phencyclidine, Urine Neg (Neg)
[2023-03-30] MEDS ORDERED: SODIUM CHLORIDE 0.9% 1,000 ML IV ONE (13:27)
[2023-03-30] MEDS ORDERED: SODIUM CHLORIDE 0.9% 2,000 ML IV ONE (14:32)
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
--- NOTE | 2023-03-30 15:12 | XRay Report ---
XR chest 1V portable HISTORY: NG tube placement. COMPARISON: Chest 03/26/2023. FINDINGS: A nasogastric tube is not identified on this study. Cervical spinal fusion hardware persist s. There are low lung volumes. Perihilar interstitial thickening could be due to the vascular crowdin g from the low lung volumes or mild congestive change. Otherwise, no new focal lung consolidations to suggest a pneumonia. No pleural effusions. No pneumothorax. The cardiac silhouette is stable in size . No acute fractures. IMPRESSION: 1. A nasogastric tube is not identified on this study. 2. Low lung volumes. 3. Perihilar interstitial thickening. This is likely due to vascular crowding from the low lung volum es. Mild congestive change could also have a similar appearance. ACT 112: Negative or not required by law. Electronically signed by: Forrest Byrne M.D. 03/30/2023 3:09 PM
[2023-03-30 15:30] LABS: Base Excess ABG 0.4 mEq/L (-9-1.8); HCO3 ABG 28 mmol/L (19-24); Oxygen Saturation ABG 99.6 % (90-95); PCO2 ABG 57 mmHg (35-46); PO2 ABG 127 mmHg (80-95)
[2023-03-30 15:31] LABS: Allen Test POS (Pos)
[2023-03-30] MEDS ORDERED: OPTIRAY 350 500ml IV ONE (15:38)
--- NOTE | 2023-03-30 16:17 | CT Scan Report ---
ABDOMEN AND PELVIS CT WITH IV CONTRAST CT DOSE: 1923.69 mGy.cm HISTORY: Generalized abdominal pain, encephalopathy, Dunaway splenic thrombus hx TECHNIQUE: Multiaxial CT images of the abdomen and pelvis were performed following the use of intrave nous contrast. A dose lowering technique was utilized adhering to the principles of ALARA. COMPARISON STUDY: Abdomen and pelvis CT 03/26/2023. FINDINGS: Lung bases: The heart is normal in size and without pericardial effusion. The lung bases are clear. Liver: The contrast-enhanced liver is cirrhotic in morphology and heterogeneous in attenuation. There is nodularity of the hepatic surface contour. There is no intrahepatic biliary ductal dilatation. Th ere is nonocclusive thrombus within the main portal vein, the portosplenic confluence, and within the splenic vein. This remains unchanged. The intrahepatic portal veins are patent. There is recanalizat ion of the periumbilical vein. Gallbladder: Surgically absent noting clips in the gallbladder fossa. Spleen: The spleen is enlarged, measuring 18.9 cm in length, unchanged. Heterogeneous enhancement wit hin the spleen is likely due to the timing of contrast. No splenic masses. Pancreas: Moderately atrophic and grossly unremarkable. Adrenal glands: Unremarkable. Kidneys: Subtle heterogeneous enhancement within the kidneys may be due to the timing of contrast. No perinephric fat stranding to suggest an infectious process. Recommend correlation with urinalysis to exclude the less likely possibility of an underlying pyelonephritis. No hydronephrosis. Abdominal vasculature: The abdominal aorta is normal in course and caliber. Bowel: Postsurgical changes noted in the stomach. No bowel obstruction is seen. There is mild colonic diverticulosis without CT evidence of acute diverticulitis. There are perirectal varices. The append ix is well-visualized and normal. Mild thickening within the ascending colon likely represents a por serina colopathy. A low-grade colitis could also have a similar appearance. Peritoneum: There is a moderate volume of abdominopelvic ascites, unchanged. No intraperitoneal free air is identified. Lymphadenopathy: None. Pelvic viscera: The bladder is decompressed by a Du catheter. The uterus is surgically absent. No adnexal lesion is seen. Skeletal structures: No lytic or blastic lesions are seen. Soft tissues: There is anasarca of the body wall. IMPRESSION: 1. The liver is cirrhotic in morphology and heterogeneous in attenuation. 2. There is nonocclusive thrombus within the main portal vein, the portosplenic confluence, and the s plenic vein. This is similar to the prior study. 3. Splenomegaly, a moderate volume of abdominopelvic ascites, recanalization of the periumbilical vei n, upper abdominal varices, and perirectal varices indicate portal hypertension. 4. Mild thickening of the ascending colon likely represents a portal colopathy. A nonspecific colitis is considered less likely but not entirely excluded. 5. Subtle heterogeneous enhancement within the kidneys likely due to the timing of contrast. A pyelon ephritis is considered less likely but not entirely excluded. Recommend correlation with urinalysis. 6. Additional findings as above. ACT 112: Negative or not required by law. Electronically signed by: Forrest Byrne M.D. 03/30/2023 4:14 PM
[2023-03-30 16:48] LABS: Base Excess VBG 0.5 mEq/L; HCO3 VBG 29 mmol/L; Oxygen Saturation VBG 98.6 %; PCO2 VBG 61 mmHg (38-50); PO2 VBG 98 mmHg; pH VBG 7.28 (7.36-7.41)
[2023-03-30] MEDS ORDERED: CARBOHYDRATES FOR HYPOGLYCEMIA PO PRN (17:48)
[2023-03-30] MEDS ORDERED: GLUCAGON FOR INJ 1 MG VIAL SQ PRN (17:48)
[2023-03-30] MEDS ORDERED: DEXTROSE 50% 50 ML SYRINGE IV PRN (17:48)
[2023-03-30] MEDS ORDERED: PLASMA-LYTE A 1,000 ML IV SCH (17:48)
[2023-03-30] MEDS ORDERED: POLYETHYLENE (MIRALAX) 17 GM PACK PO PRN (17:48)
[2023-03-30] MEDS ORDERED: GLUCOSE 10 TAB/TUBE PO PRN (17:48)
[2023-03-30] MEDS ORDERED: bisacodyL 10 MG SUPP PR PRN (17:48)
[2023-03-30] MEDS ORDERED: GLUCOSE 40% GEL 15 GM TUBE PO PRN (17:48)
[2023-03-30] MEDS ORDERED: IPRATROPIUM BROMIDE/ALBUTEROL respimat INH INH PRN (17:48)
[2023-03-30] MEDS ORDERED: DOCUSATE SODIUM/SENNA 50/8.6MG TAB PO PRN (17:48)
[2023-03-30] MEDS ORDERED: IPRATROPIUM BROMIDE HFA INHALER INH PRN (18:33)
[2023-03-30] MEDS ORDERED: ALBUTEROL HFA 8 GM INHALER INH PRN (18:33)
[2023-03-30] MEDS: INSULIN ASPART PER UNIT CHARGE SC SCH ×2 (19:03→19:58)
[2023-03-30] MEDS ORDERED: LORazepam 2 MG/1 ML VIAL IV STA (19:39)
[2023-03-30] MEDS: ENOXAPARIN 100 MG/1ML SYR SQ SCH (19:55)
[2023-03-30] MEDS: LACTULOSE SYRUP 20 GM/30 ML UDC PO SCH (19:58)
[2023-03-30] MEDS: MAGNESIUM OXIDE 400 MG TAB PO SCH (19:59)
[2023-03-30] MEDS: rifAXIMin 550 MG TABLET PO SCH (19:59)
[2023-03-30] MEDS: POTASSIUM CHLORIDE CRTAB 20 MEQ TABCR PO SCH (19:59)
[2023-03-30 20:37] LABS: iSTAT Allen Test Pass; iSTAT Art Bld Gas pCO2 Correct 57 mmHg (35-46); iSTAT Arterial Blood Gas HCO3 29 meg/L (19-24); iSTAT Arterial Blood Gas pCO2 57 mmHg (35-46); iSTAT Arterial Blood Gas pH 7.31 (7.35-7.45); iSTAT Arterial Blood Gas pO2 91 mmHg (80-95); iSTAT Arterial Blood Gas pO2 C 90; iSTAT Carbon Dioxide 30 mmol/L (24-31); iSTAT Hematocrit 36 % (37-47); iSTAT Hemoglobin 12.2 g/dl (12.0-16.0); iSTAT Potassium 4.3 mmol/L (3.3-5.0); iSTAT Site R Radial; iSTAT Sodium 135 mmol/L (135-144)
[2023-03-30] MEDS: NALOXONE HCL 0.4 MG/1 ML VIAL/CARP IV PRN ×2 (21:17→23:11)
[2023-03-30 21:20] LABS: HCO3 VBG 28 mmol/L; Oxygen Saturation VBG 98.2 %; PCO2 VBG 53 mmHg (38-50); PO2 VBG 88 mmHg; pH VBG 7.33 (7.36-7.41)
[2023-03-31 00:27] LABS: Base Excess VBG 7.5 mEq/L; HCO3 VBG 33 mmol/L; Oxygen Saturation VBG 88.7 %; PCO2 VBG 50 mmHg (38-50); PO2 VBG 56 mmHg; pH VBG 7.43 (7.36-7.41)
[2023-03-31] MEDS: NALOXONE HCL 0.4 MG/1 ML VIAL/CARP IV PRN (02:13)
[2023-03-31] MEDS: LACTULOSE SYRUP 20 GM/30 ML UDC PO SCH ×4 (02:17→20:17)
[2023-03-31 04:29] LABS: Albumin Globulin Ratio 0.7 (0.9-2); Albumin Level 2.4 gm/dl (3.4-5.0); BUN Creatinine Ratio 13.6 (10-20); Bilirubin,Total 2.2 mg/dl (0.2-1.0); Calcium 8.1 mg/dl (8.6-10.3); Creatinine Clr Calc Pharmacy 89.3 ml/min; Est GFR (African American) 77.6 ml/min; Globulin 3.5 gm/dl (2.5-4.0); Potassium 4.5 mmol/L (3.5-5.1); Total Protein 5.9 gm/dl (6.0-8.3)
[2023-03-31] MEDS: LEVOTHYROXINE SODIUM 125 MCG TABLET PO SCH (05:25)
--- NOTE | 2023-03-31 05:38 | Communication Note ---
Date of Service: March 31, 2023 Upon admission, patient was fighting off use of bipap. She did become obtunded likely due to respiratory acidosis as seen on blood gas. Once obtunded, bipap was able to be used appropriately. VBGs were monitored q4h. There was some thought her state was due to narcotic use at home so several doses of Narcan were administered every couple of hours. Around 0100, patient was alert and speaking through the bipap. VBG was improved so we decided to trial her without the bipap and she maintained quite well. She was the able to take her evening lactulose dose as well. Unclear if narcan played a role in her overall improvement. Cont. to monitor VBG and clinical stability. Resident Activity Tracking Resident Involvement: Resident Care Provided Care Provided: Adult Hospital Medicine
[2023-03-31 05:50] LABS: Basophils # (auto) 0.08 K/uL (0-0.2); Basophils % (auto) 0.8 %; Eosinophils # (auto) 0.17 K/uL (0-0.50); Eosinophils % (auto) 1.7 %; Hematocrit (blood only) 33.1 % (37.0-47.0); Hemoglobin 10.3 g/dl (12.0-16.0); Immature Granulocytes # (auto) 0.03 K/uL (0.01-0.20); Immature Granulocytes % (auto) 0.3 %; Lymphocytes # (auto) 1.91 K/uL (1.2-3.4); Lymphocytes % (auto) 19.3 %; Mean Corpuscular Hemoglobin 28.5 pg (25.0-34.0); Mean Corpuscular Hgb Conc 31.1 g/dL (32.0-36.0); Mean Corpuscular Volume 91.4 fL (80.0-100.0); Mean Platelet Volume 8.9 fL (9.4-12.4); Monocytes # (auto) 1.36 K/uL (0.11-0.59); Monocytes % (auto) 13.7 %; Neutrophils # (auto) 6.36 K/uL (1.40-6.50); Neutrophils % (auto) 64.2 %; Platelet Count 104 K/uL (130-400); RDW Coefficient of Variation 21.1 % (11.5-14.5); Red Blood Count 3.62 M/uL (4.20-5.40); White Blood Count 9.91 K/ul (4.8-10.8)
[2023-03-31 06:14] LABS: Anisocytosis Present; Polychromasia 1+
[2023-03-31] MEDS: MAGNESIUM OXIDE 400 MG TAB PO SCH ×2 (07:58→20:18)
[2023-03-31] MEDS: POTASSIUM CHLORIDE CRTAB 20 MEQ TABCR PO SCH ×2 (07:58→20:18)
[2023-03-31] MEDS: buPROPion XL 150 MG TABCR PO SCH (07:58)
[2023-03-31] MEDS: FAMOTIDINE 40 MG TABLET PO SCH (07:58)
[2023-03-31] MEDS: CHOLECALCIFEROL 5,000 UNITS 125 MCG TAB PO SCH (07:59)
[2023-03-31] MEDS: VENLAFAXINE HCL XR 75 MG CAPXR PO SCH (07:59)
[2023-03-31] MEDS: PANTOprazole 40 MG TAB PO SCH (07:59)
[2023-03-31] MEDS: METOPROLOL SUCC 25MG EXT REL TAB PO SCH (07:59)
[2023-03-31] MEDS: rifAXIMin 550 MG TABLET PO SCH ×2 (07:59→20:17)
[2023-03-31] MEDS: DOCUSATE SODIUM 100 MG CAP PO SCH (07:59)
[2023-03-31] MEDS: ENOXAPARIN 100 MG/1ML SYR SQ SCH ×2 (07:59→20:17)
[2023-03-31 08:08] LABS: Estimated Average Glucose 85 mg/dl; Hemoglobin A1C 4.6 % (4.5-5.6)
[2023-03-31] MEDS: INSULIN ASPART PER UNIT CHARGE SC SCH ×4 (08:46→20:37)
[2023-03-31] MEDS: ACETAMINOPHEN 325 MG TAB PO PRN ×2 (10:31→22:01)
--- NOTE | 2023-03-31 13:31 | Hospitalist Progress Note ---
Date of Service March 31, 2023 Assessment & Plan (1) Acute encephalopathy: Plan: improved/back to baseline multifactorial - elevated ammonia levels, hypercapnea, polypharmacy (narcotics, benzos) - PDMP confirms Rx for both of these meds, etc. cannot rule out subacute CVA but less likely - MRI brain pending ammonia being treated with lactulose/rifaximin hypercapnea - BIPAP overnight benzos/narcs held (received narcan multiple times overnight) blood cx's pending to r/o infection doubt SBP but obtain paracentesis tomorrow - on rocephin until blood cx's neg and paracentesis is done (2) Acute hypercapnic respiratory failure: Plan: resolved s/p BIPAP overnight etiology? narcotics/benzos leading to CO2 retention? hepatic encephalopathy along with controlled substances? she also has untreated CHIVO despite having sleep study confirmed CHIVO (3) Ascites: Plan: last paracentesis 03/26 with nearly 4 L removed has reaccumulated since then cell counts 03/26 without SBP will order paracentesis for tomorrow hold lovenox tomorrow am in prep for paracentesis (4) Opioid dependence: Plan: as confirmed by PDMP (5) Hyperammonemia: Plan: improved cont lactulose - aim 3BMs/day cont rifaximin (6) JOANNA (acute kidney injury): Plan: presenting Cr 1.3 now 1 today resolved (7) 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: Plan: just saw [facility] at [facility] last week per known varices 03/26/23 - last paracentesis at [facility] (no evidence SBP by way of cell counts) aldactone/bumex on hold due to JOANNA can resume these following paracentesis continue rifaximin and lactulose paracentesis ordered for tomorrow with IR (Marvin RAMIREZ) has not gone on transplant list yet (8) Sleep apnea: Plan: known dx but is not on CPAP sleep study was several years ago in 2019 report stated it was moderate she never had CPAP trial she would need a repeat study in the near future (9) Neurogenic bladder: Plan: granados (10) Esophageal varices: Plan: would benefit from BB uncertain why she is not on inderal or nadalol defer to GI hemoglobin stable; no signs of GI bleeding (11) Polypharmacy: Plan: benzos, narcotics, etc (12) 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 will obtain MRI brain (she thinks she can tolerate such) to r/o subacute CVA given her altered MS at time of admission and charlene-oral paresthesias (13) Diabetes mellitus: Plan: resolved a1c <6% (14) Hypothyroidism: Plan: last several TSH levels all low agree with dose reduction from 300mcg/day to 275 mcg/day or 250mcg/day (15) Portal vein thrombosis: Plan: as seen on imaging Dr Galvez spoke with hepatology at [facility] they advised lovenox 100mg BID and to stop plavix (16) Splenic vein thrombosis: Plan: as seen on imaging Dr Galvez spoke with hepatology at [facility] they advised lovenox 100mg BID and to stop plavix Plan updated by phone this evening Admission and Anticipated Discharge Date Admission Date: March 30, 2023 Subjective patient had just finished eating lunch during my visit she feels much better today awake, alert denies complaints except for occipital headache that she has had for 4-5 days she has baseline memory difficulties but feels she is about at baseline thinks she had GI appointment at [facility] yesterday?? ( reported it was last Friday) denies frontal headache denies fevers or chills denies focal motor weakness of arms/legs she reports mild numbness around her lips/mouth?? has been getting paracentesis about every 1-2 weeks at [facility] by Cole RAMIREZ she feels she is ready for one -- is very distended and full in her abdomen Review of Systems Review of Systems: gen - no fevers or chills cv - no chest pain pulm - no dyspnea or cough GI - bloating/distension but no pain; no nausea or vomiting Physical Exam Physical Exam: gen - sitting at side of bed; NAD, looks well; mild memory issues neck - no obvious JVD face - no facial asymmetry mouth - MMM heart - RRR, s1 s2 lungs - CTA b/l abd - distended with ascites, nontender, liver edge not palpable, BS+ ext - pulses 2+ b/l; trace edema neuro - no asterixis; strength 5/5 x 4 exts; no dysarthria or aphasia; nonfocal exam psych - awake, alert, oriented to person/place Results & Data Results & Data Vital Signs (Past 12 Hours) Vital Signs Temp Pulse Pulse Resp BP Pulse Ox O2 Del Method 03/31/23 07:16 92 H 03/31/23 11:20 36.6 C 86 17 125/76 95 Room Air 03/31/23 07:04 37.3 C 92 H 20 142/87 H 97 Room Air 03/31/23 04:16 37.4 C 93 H 16 132/76 94 Room Air 03/31/23 02:11 98 H 11 L 97 Nasal Cannula O2 Flow Rate 03/31/23 07:16 03/31/23 11:20 03/31/23 07:04 03/31/23 04:16 03/31/23 02:11 2 Laboratory Results Laboratory Results - last 48 hr 03/30/23 03/30/23 03/30/23 11:49 11:49 11:49 WBC 13.19 H RBC 4.32 Hgb 12.3 POC Hgb Hct 39.3 POC Hct MCV 91.0 MCH 28.5 MCHC 31.3 L RDW Std Deviation 69.5 H RDW Coeff of Henna 21.2 H Plt Count 182 MPV 8.7 L Immature Gran % (Auto) 0.4 Neut % (Auto) 74.4 Lymph % (Auto) 12.4 [place] % (Auto) 11.9 Eos % (Auto) 0.1 Baso % (Auto) 0.8 Neut # (Auto) 9.82 H Lymph # (Auto) 1.63 [place] # (Auto) 1.57 H Eos # (Auto) 0.01 Baso # (Auto) 0.11 Immature Gran # (Auto) 0.05 Absolute Nucleated RBC Nucleated RBC % (auto) Neutrophils % (Manual) Band Neutrophils % Lymphocytes % (Manual) Prolymphocyte % Reactive Lymphs % (Man) Monocytes % (Manual) Eosinophils % (Manual) Basophils % (Manual) Metamyelocytes % (Man) Myelocytes % (Man) Promyelocytes % (Man) Blast Cells % (Manual) Plasma Cell % (Manual) Other Cells % Nucleated RBC % Neutrophils # (Manual) Band Neutrophils # Total Absolute Neuts Lymphocytes # (Manual) Prolymphocyte # Reactive Lymphs # Total Abs Lymphocytes Monocytes # (Manual) Eosinophils # (Manual) Basophils # (Manual) Metamyelocytes # (Man) Myelocytes # (Manual) Promyelocytes # (Man) Blast Cells # (Man) Plasma Cell # (Manual) Other Cells # Nucleated RBCs # (Man) Hypersegmented Neuts Hyposegmented Neuts Hypogranular Neuts Large Granular Lymphs # Lrg Granular Lymphs Hairy Cells Smudge Cells Toxic Granulation Toxic Vacuolation Dohle Bodies Herebr[place] Rods Platelet Estimate Hypogranular Platelets Giant Platelets Platelet Satelliting RBC Morphology Polychromasia 1+ Hypochromasia Poikilocytosis Basophilic Stippling Anisocytosis Present Microcytosis Macrocytosis Spherocytes Pappenheimer Bodies Sickle Cells Target Cells Tear Drop Cells Ovalocytes Stomatocytes [place] Bodies Echinocytes Acanthocytes (Spur) Rouleaux RBC Agglutinates Schistocytes Sezary Cell PT 16.7 H INR 1.6 H Sample Site POC pH POC pCO2 POC pO2 POC HCO3 POC Base Excess ABG pH ABG pH (Temp Correct) ABG pCO2 ABG pCO2 (Temp Corrct ABG pO2 POC ABG pO2 at Pt Temp ABG HCO3 POC ABG O2 Sat ABG O2 Saturation ABG Base Excess Rodrigue Test VBG pH VBG pCO2 VBG pO2 VBG HCO3 VBG O2 Saturation VBG Base Excess Barometric Pressure Oxygen Given O2 Delivery Device POC Sodium Sodium 133 L POC Potassium Potassium 4.6 POC Chloride Chloride 96 L Carbon Dioxide 29 POC Total CO2 Anion Gap 8 POC Anion Gap POC BUN BUN 12 Creatinine 1.30 H POC Creatinine Est Cr Clr Drug Dosing 69.6 Est GFR ( Amer) 58.6 Est GFR (Non-Af Amer) 50.6 BUN/Creatinine Ratio 9.2 L Glucose 115 H POC Glucose POC Glucose (other) Estimat Average Glucose Hemoglobin A1c Lactate Calcium 8.7 POC Ioniz Calcium Carol Magnesium 2.0 Total Bilirubin 2.6 H AST 100 H ALT 38 Alkaline Phosphatase 93 Ammonia Troponin I High Sens 67.6 H* Total Protein 6.8 Albumin 2.7 L Globulin 4.1 H Albumin/Globulin Ratio 0.7 L Procalcitonin Urine Color Urine Appearance Urine pH Ur Specific [place] Urine Protein Urine Glucose (UA) Urine Ketones Urine Blood Urine Nitrite Urine Bilirubin Urine Urobilinogen Ur Leukocyte Esterase Salicylates Urine Opiates Screen Ur Methadone, Qual Acetaminophen Urine Barbiturates Ur Phencyclidine (PCP) U Amphetamin/Meth Scrn MDMA (Ecstasy) Screen U Benzodiazepines Scrn Ur Cocaine Metabolite U Marijuana (THC) Screen Ethyl Alcohol mg/dL SARS-CoV-2, RNA, NAAT Blood Parasites ID 03/30/23 03/30/23 03/30/23 11:49 11:49 11:49 WBC RBC Hgb POC Hgb Hct POC Hct MCV MCH MCHC RDW Std Deviation RDW Coeff of [place] Plt Count MPV Immature Gran % (Auto) Neut % (Auto) Lymph % (Auto) [place] % (Auto) Eos % (Auto) Baso % (Auto) Neut # (Auto) Lymph # (Auto) [place] # (Auto) Eos # (Auto) Baso # (Auto) Immature Gran # (Auto) Absolute Nucleated RBC Nucleated RBC % (auto) Neutrophils % (Manual) Band Neutrophils % Lymphocytes % (Manual) Prolymphocyte % Reactive Lymphs % (Man) Monocytes % (Manual) Eosinophils % (Manual) Basophils % (Manual) Metamyelocytes % (Man) Myelocytes % (Man) Promyelocytes % (Man) Blast Cells % (Manual) Plasma Cell % (Manual) Other Cells % Nucleated RBC % Neutrophils # (Manual) Band Neutrophils # Total Absolute Neuts Lymphocytes # (Manual) Prolymphocyte # Reactive Lymphs # Total Abs Lymphocytes Monocytes # (Manual) Eosinophils # (Manual) Basophils # (Manual) Metamyelocytes # (Man) Myelocytes # (Manual) Promyelocytes # (Man) Blast Cells # (Man) Plasma Cell # (Manual) Other Cells # Nucleated RBCs # (Man) Hypersegmented Neuts Hyposegmented Neuts Hypogranular Neuts Large Granular Lymphs # Lrg Granular Lymphs Hairy Cells Smudge Cells Toxic Granulation Toxic Vacuolation Dohle Bodies Herbert Rods Platelet Estimate Hypogranular Platelets Giant Platelets Platelet Satelliting RBC Morphology Polychromasia Hypochromasia Poikilocytosis Basophilic Stippling Anisocytosis Microcytosis Macrocytosis Spherocytes Pappenheimer Bodies Sickle Cells Target Cells Tear Drop Cells Ovalocytes Stomatocytes [place] Bodies Echinocytes Acanthocytes (Spur) Rouleaux RBC Agglutinates Schistocytes Sezary Cell PT INR Sample Site POC pH POC pCO2 POC pO2 POC HCO3 POC Base Excess ABG pH ABG pH (Temp Correct) ABG pCO2 ABG pCO2 (Temp Corrct ABG pO2 POC ABG pO2 at Pt Temp ABG HCO3 POC ABG O2 Sat ABG O2 Saturation ABG Base Excess Rodrigue Test VBG pH VBG pCO2 VBG pO2 VBG HCO3 VBG O2 Saturation VBG Base Excess Barometric Pressure Oxygen Given O2 Delivery Device POC Sodium Sodium POC Potassium Potassium POC Chloride Chloride Carbon Dioxide POC Total CO2 Anion Gap POC Anion Gap POC BUN BUN Creatinine POC Creatinine Est Cr Clr Drug Dosing Est GFR ( Amer) Est GFR (Non-Af Amer) BUN/Creatinine Ratio Glucose POC Glucose POC Glucose (other) Estimat Average Glucose Hemoglobin A1c Lactate Calcium POC Ioniz Calcium Carol Magnesium Total Bilirubin AST ALT Alkaline Phosphatase Ammonia 98.0 H Troponin I High Sens Total Protein Albumin Globulin Albumin/Globulin Ratio Procalcitonin Cancelled Urine Color Urine Appearance Urine pH Ur Specific [place] Urine Protein Urine Glucose (UA) Urine Ketones Urine Blood Urine Nitrite Urine Bilirubin Urine Urobilinogen Ur Leukocyte Esterase Salicylates < 3.0 L Urine Opiates Screen Ur Methadone, Qual Acetaminophen < 3 L Urine Barbiturates Ur Phencyclidine (PCP) U Amphetamin/Meth Scrn MDMA (Ecstasy) Screen U Benzodiazepines Scrn Ur Cocaine Metabolite U Marijuana (THC) Screen Ethyl Alcohol mg/dL SARS-CoV-2, RNA, NAAT Blood Parasites ID 03/30/23 03/30/23 03/30/23 11:54 11:55 11:55 WBC RBC Hgb POC Hgb 13.3 Hct POC Hct 39 MCV MCH MCHC RDW Std Deviation RDW Coeff of [place] Plt Count MPV Immature Gran % (Auto) Neut % (Auto) Lymph % (Auto) [place] % (Auto) Eos % (Auto) Baso % (Auto) Neut # (Auto) Lymph # (Auto) [place] # (Auto) Eos # (Auto) Baso # (Auto) Immature Gran # (Auto) Absolute Nucleated RBC Nucleated RBC % (auto) Neutrophils % (Manual) Band Neutrophils % Lymphocytes % (Manual) Prolymphocyte % Reactive Lymphs % (Man) Monocytes % (Manual) Eosinophils % (Manual) Basophils % (Manual) Metamyelocytes % (Man) Myelocytes % (Man) Promyelocytes % (Man) Blast Cells % (Manual) Plasma Cell % (Manual) Other Cells % Nucleated RBC % Neutrophils # (Manual) Band Neutrophils # Total Absolute Neuts Lymphocytes # (Manual) Prolymphocyte # Reactive Lymphs # Total Abs Lymphocytes Monocytes # (Manual) Eosinophils # (Manual) Basophils # (Manual) Metamyelocytes # (Man) Myelocytes # (Manual) Promyelocytes # (Man) Blast Cells # (Man) Plasma Cell # (Manual) Other Cells # Nucleated RBCs # (Man) Hypersegmented Neuts Hyposegmented Neuts Hypogranular Neuts Large Granular Lymphs # Lrg Granular Lymphs Hairy Cells Smudge Cells Toxic Granulation Toxic Vacuolation Dohle Bodies Herbert Rods Platelet Estimate Hypogranular Platelets Giant Platelets Platelet Satelliting RBC Morphology Polychromasia Hypochromasia Poikilocytosis Basophilic Stippling Anisocytosis Microcytosis Macrocytosis Spherocytes Pappenheimer Bodies Sickle Cells Target Cells Tear Drop Cells Ovalocytes Stomatocytes [place] Bodies Echinocytes Acanthocytes (Spur) Rouleaux RBC Agglutinates Schistocytes Sezary Cell PT INR Sample Site POC pH POC pCO2 POC pO2 POC HCO3 POC Base Excess ABG pH ABG pH (Temp Correct) ABG pCO2 ABG pCO2 (Temp Corrct ABG pO2 POC ABG pO2 at Pt Temp ABG HCO3 POC ABG O2 Sat ABG O2 Saturation ABG Base Excess Rodrigue Test VBG pH VBG pCO2 VBG pO2 VBG HCO3 VBG O2 Saturation VBG Base Excess Barometric Pressure Oxygen Given O2 Delivery Device POC Sodium 134 L Sodium POC Potassium 4.7 Potassium POC Chloride 95 L Chloride Carbon Dioxide POC Total CO2 31 Anion Gap POC Anion Gap 13.0 L POC BUN 11 BUN Creatinine POC Creatinine 1.4 H Est Cr Clr Drug Dosing Est GFR ( Amer) Est GFR (Non-Af Amer) BUN/Creatinine Ratio Glucose POC Glucose POC Glucose (other) 111 H Estimat Average Glucose Hemoglobin A1c Lactate Calcium POC Ioniz Calcium Carol 1.04 L Magnesium Total Bilirubin AST ALT Alkaline Phosphatase Ammonia Troponin I High Sens Total Protein Albumin Globulin Albumin/Globulin Ratio Procalcitonin Urine Color Dark Yellow Urine Appearance Clear Urine pH 5.0 Ur Specific [place] 1.016 Urine Protein Negative Urine Glucose (UA) Negative Urine Ketones Negative Urine Blood Negative Urine Nitrite Negative Urine Bilirubin Negative Urine Urobilinogen Negative Ur Leukocyte Esterase Negative Salicylates Urine Opiates Screen Pos H Ur Methadone, Qual Neg Acetaminophen Urine Barbiturates Pos H Ur Phencyclidine (PCP) Neg U Amphetamin/Meth Scrn Neg MDMA (Ecstasy) Screen Neg U Benzodiazepines Scrn Pos H Ur Cocaine Metabolite Neg U Marijuana (THC) Screen Neg Ethyl Alcohol mg/dL SARS-CoV-2, RNA, NAAT Blood Parasites ID 03/30/23 03/30/23 03/30/23 12:27 12:53 12:53 WBC RBC Hgb POC Hgb Hct POC Hct MCV MCH MCHC RDW Std Deviation RDW Coeff of [place] Plt Count MPV Immature Gran % (Auto) Neut % (Auto) Lymph % (Auto) [place] % (Auto) Eos % (Auto) Baso % (Auto) Neut # (Auto) Lymph # (Auto) [place] # (Auto) Eos # (Auto) Baso # (Auto) Immature Gran # (Auto) Absolute Nucleated RBC Nucleated RBC % (auto) Neutrophils % (Manual) Band Neutrophils % Lymphocytes % (Manual) Prolymphocyte % Reactive Lymphs % (Man) Monocytes % (Manual) Eosinophils % (Manual) Basophils % (Manual) Metamyelocytes % (Man) Myelocytes % (Man) Promyelocytes % (Man) Blast Cells % (Manual) Plasma Cell % (Manual) Other Cells % Nucleated RBC % Neutrophils # (Manual) Band Neutrophils # Total Absolute Neuts Lymphocytes # (Manual) Prolymphocyte # Reactive Lymphs # Total Abs Lymphocytes Monocytes # (Manual) Eosinophils # (Manual) Basophils # (Manual) Metamyelocytes # (Man) Myelocytes # (Manual) Promyelocytes # (Man) Blast Cells # (Man) Plasma Cell # (Manual) Other Cells # Nucleated RBCs # (Man) Hypersegmented Neuts Hyposegmented Neuts Hypogranular Neuts Large Granular Lymphs # Lrg Granular Lymphs Hairy Cells Smudge Cells Toxic Granulation Toxic Vacuolation Dohle Bodies Herbert Rods Platelet Estimate Hypogranular Platelets Giant Platelets Platelet Satelliting RBC Morphology Polychromasia Hypochromasia Poikilocytosis Basophilic Stippling Anisocytosis Microcytosis Macrocytosis Spherocytes Pappenheimer Bodies Sickle Cells Target Cells Tear Drop Cells Ovalocytes Stomatocytes [place] Bodies Echinocytes Acanthocytes (Spur) Rouleaux RBC Agglutinates Schistocytes Sezary Cell PT INR Sample Site POC pH POC pCO2 POC pO2 POC HCO3 POC Base Excess ABG pH ABG pH (Temp Correct) ABG pCO2 ABG pCO2 (Temp Corrct ABG pO2 POC ABG pO2 at Pt Temp ABG HCO3 POC ABG O2 Sat ABG O2 Saturation ABG Base Excess Rodrigue Test VBG pH VBG pCO2 VBG pO2 VBG HCO3 VBG O2 Saturation VBG Base Excess Barometric Pressure Oxygen Given O2 Delivery Device POC Sodium Sodium POC Potassium Potassium POC Chloride Chloride Carbon Dioxide POC Total CO2 Anion Gap POC Anion Gap POC BUN BUN Creatinine POC Creatinine Est Cr Clr Drug Dosing Est GFR ( Amer) Est GFR (Non-Af Amer) BUN/Creatinine Ratio Glucose POC Glucose POC Glucose (other) Estimat Average Glucose Hemoglobin A1c Lactate 4.5 H* Calcium POC Ioniz Calcium Carol Magnesium Total Bilirubin AST ALT Alkaline Phosphatase Ammonia Troponin I High Sens Total Protein Albumin Globulin Albumin/Globulin Ratio Procalcitonin 0.22 Urine Color Urine Appearance Urine pH Ur Specific [place] Urine Protein Urine Glucose (UA) Urine Ketones Urine Blood Urine Nitrite Urine Bilirubin Urine Urobilinogen Ur Leukocyte Esterase Salicylates Urine Opiates Screen Ur Methadone, Qual Acetaminophen Urine Barbiturates Ur Phencyclidine (PCP) U Amphetamin/Meth Scrn MDMA (Ecstasy) Screen U Benzodiazepines Scrn Ur Cocaine Metabolite U Marijuana (THC) Screen Ethyl Alcohol mg/dL < 10.0 SARS-CoV-2, RNA, NAAT Blood Parasites ID 03/30/23 03/30/23 03/30/23 14:14 14:14 15:15 WBC RBC Hgb POC Hgb Hct POC Hct MCV MCH MCHC RDW Std Deviation RDW Coeff of [place] Plt Count MPV Immature Gran % (Auto) Neut % (Auto) Lymph % (Auto) [place] % (Auto) Eos % (Auto) Baso % (Auto) Neut # (Auto) Lymph # (Auto) [place] # (Auto) Eos # (Auto) Baso # (Auto) Immature Gran # (Auto) Absolute Nucleated RBC Nucleated RBC % (auto) Neutrophils % (Manual) Band Neutrophils % Lymphocytes % (Manual) Prolymphocyte % Reactive Lymphs % (Man) Monocytes % (Manual) Eosinophils % (Manual) Basophils % (Manual) Metamyelocytes % (Man) Myelocytes % (Man) Promyelocytes % (Man) Blast Cells % (Manual) Plasma Cell % (Manual) Other Cells % Nucleated RBC % Neutrophils # (Manual) Band Neutrophils # Total Absolute Neuts Lymphocytes # (Manual) Prolymphocyte # Reactive Lymphs # Total Abs Lymphocytes Monocytes # (Manual) Eosinophils # (Manual) Basophils # (Manual) Metamyelocytes # (Man) Myelocytes # (Manual) Promyelocytes # (Man) Blast Cells # (Man) Plasma Cell # (Manual) Other Cells # Nucleated RBCs # (Man) Hypersegmented Neuts Hyposegmented Neuts Hypogranular Neuts Large Granular Lymphs # Lrg Granular Lymphs Hairy Cells Smudge Cells Toxic Granulation Toxic Vacuolation Dohle Bodies Herbert Rods Platelet Estimate Hypogranular Platelets Giant Platelets Platelet Satelliting RBC Morphology Polychromasia Hypochromasia Poikilocytosis Basophilic Stippling Anisocytosis Microcytosis Macrocytosis Spherocytes Pappenheimer Bodies Sickle Cells Target Cells Tear Drop Cells Ovalocytes Stomatocytes [place] Bodies Echinocytes Acanthocytes (Spur) Rouleaux RBC Agglutinates Schistocytes Sezary Cell PT INR Sample Site POC pH POC pCO2 POC pO2 POC HCO3 POC Base Excess ABG pH ABG pH (Temp Correct) ABG pCO2 ABG pCO2 (Temp Corrct ABG pO2 POC ABG pO2 at Pt Temp ABG HCO3 POC ABG O2 Sat ABG O2 Saturation ABG Base Excess Rodrigue Test VBG pH VBG pCO2 VBG pO2 VBG HCO3 VBG O2 Saturation VBG Base Excess Barometric Pressure Oxygen Given O2 Delivery Device POC Sodium Sodium POC Potassium Potassium POC Chloride Chloride Carbon Dioxide POC Total CO2 Anion Gap POC Anion Gap POC BUN BUN Creatinine POC Creatinine Est Cr Clr Drug Dosing Est GFR ( Amer) Est GFR (Non-Af Amer) BUN/Creatinine Ratio Glucose POC Glucose POC Glucose (other) Estimat Average Glucose Hemoglobin A1c Lactate 5.1 H* Calcium POC Ioniz Calcium Carol Magnesium Total Bilirubin AST ALT Alkaline Phosphatase Ammonia Troponin I High Sens 58.9 H* Total Protein Albumin Globulin Albumin/Globulin Ratio Procalcitonin Urine Color Urine Appearance Urine pH Ur Specific [place] Urine Protein Urine Glucose (UA) Urine Ketones Urine Blood Urine Nitrite Urine Bilirubin Urine Urobilinogen Ur Leukocyte Esterase Salicylates Urine Opiates Screen Ur Methadone, Qual Acetaminophen Urine Barbiturates Ur Phencyclidine (PCP) U Amphetamin/Meth Scrn MDMA (Ecstasy) Screen U Benzodiazepines Scrn Ur Cocaine Metabolite U Marijuana (THC) Screen Ethyl Alcohol mg/dL SARS-CoV-2, RNA, NAAT NEGATIVE Blood Parasites ID 03/30/23 03/30/23 03/30/23 15:15 16:36 16:36 WBC RBC Hgb POC Hgb Hct POC Hct MCV MCH MCHC RDW Std Deviation RDW Coeff of [place] Plt Count MPV Immature Gran % (Auto) Neut % (Auto) Lymph % (Auto) [place] % (Auto) Eos % (Auto) Baso % (Auto) Neut # (Auto) Lymph # (Auto) [place] # (Auto) Eos # (Auto) Baso # (Auto) Immature Gran # (Auto) Absolute Nucleated RBC Nucleated RBC % (auto) Neutrophils % (Manual) Band Neutrophils % Lymphocytes % (Manual) Prolymphocyte % Reactive Lymphs % (Man) Monocytes % (Manual) Eosinophils % (Manual) Basophils % (Manual) Metamyelocytes % (Man) Myelocytes % (Man) Promyelocytes % (Man) Blast Cells % (Manual) Plasma Cell % (Manual) Other Cells % Nucleated RBC % Neutrophils # (Manual) Band Neutrophils # Total Absolute Neuts Lymphocytes # (Manual) Prolymphocyte # Reactive Lymphs # Total Abs Lymphocytes Monocytes # (Manual) Eosinophils # (Manual) Basophils # (Manual) Metamyelocytes # (Man) Myelocytes # (Manual) Promyelocytes # (Man) Blast Cells # (Man) Plasma Cell # (Manual) Other Cells # Nucleated RBCs # (Man) Hypersegmented Neuts Hyposegmented Neuts Hypogranular Neuts Large Granular Lymphs # Lrg Granular Lymphs Hairy Cells Smudge Cells Toxic Granulation Toxic Vacuolation Dohle Bodies Herbert Rods Platelet Estimate Hypogranular Platelets Giant Platelets Platelet Satelliting RBC Morphology Polychromasia Hypochromasia Poikilocytosis Basophilic Stippling Anisocytosis Microcytosis Macrocytosis Spherocytes Pappenheimer Bodies Sickle Cells Target Cells Tear Drop Cells Ovalocytes Stomatocytes [place] Bodies Echinocytes Acanthocytes (Spur) Rouleaux RBC Agglutinates Schistocytes Sezary Cell PT INR Sample Site POC pH POC pCO2 POC pO2 POC HCO3 POC Base Excess ABG pH 7.30 L ABG pH (Temp Correct) ABG pCO2 57 H ABG pCO2 (Temp Corrct ABG pO2 127 H POC ABG pO2 at Pt Temp ABG HCO3 28 H POC ABG O2 Sat ABG O2 Saturation 99.6 H ABG Base Excess 0.4 Rodrigue Test POS VBG pH 7.28 L VBG pCO2 61 H VBG pO2 98 VBG HCO3 29 VBG O2 Saturation 98.6 VBG Base Excess 0.5 Barometric Pressure Oxygen Given 4 L O2 Delivery Device POC Sodium Sodium POC Potassium Potassium POC Chloride Chloride Carbon Dioxide POC Total CO2 Anion Gap POC Anion Gap POC BUN BUN Creatinine POC Creatinine Est Cr Clr Drug Dosing Est GFR ( Amer) Est GFR (Non-Af Amer) BUN/Creatinine Ratio Glucose POC Glucose POC Glucose (other) Estimat Average Glucose Hemoglobin A1c Lactate 4.3 H* Calcium POC Ioniz Calcium Carol Magnesium Total Bilirubin AST ALT Alkaline Phosphatase Ammonia Troponin I High Sens Total Protein Albumin Globulin Albumin/Globulin Ratio Procalcitonin Urine Color Urine Appearance Urine pH Ur Specific [place] Urine Protein Urine Glucose (UA) Urine Ketones Urine Blood Urine Nitrite Urine Bilirubin Urine Urobilinogen Ur Leukocyte Esterase Salicylates Urine Opiates Screen Ur Methadone, Qual Acetaminophen Urine Barbiturates Ur Phencyclidine (PCP) U Amphetamin/Meth Scrn MDMA (Ecstasy) Screen U Benzodiazepines Scrn Ur Cocaine Metabolite U Marijuana (THC) Screen Ethyl Alcohol mg/dL SARS-CoV-2, RNA, NAAT Blood Parasites ID 03/30/23 03/30/23 03/30/23 18:22 18:40 19:45 WBC RBC Hgb POC Hgb 12.2 Hct POC Hct 36 L MCV MCH MCHC RDW Std Deviation RDW Coeff of [place] Plt Count MPV Immature Gran % (Auto) Neut % (Auto) Lymph % (Auto) [place] % (Auto) Eos % (Auto) Baso % (Auto) Neut # (Auto) Lymph # (Auto) [place] # (Auto) Eos # (Auto) Baso # (Auto) Immature Gran # (Auto) Absolute Nucleated RBC Nucleated RBC % (auto) Neutrophils % (Manual) Band Neutrophils % Lymphocytes % (Manual) Prolymphocyte % Reactive Lymphs % (Man) Monocytes % (Manual) Eosinophils % (Manual) Basophils % (Manual) Metamyelocytes % (Man) Myelocytes % (Man) Promyelocytes % (Man) Blast Cells % (Manual) Plasma Cell % (Manual) Other Cells % Nucleated RBC % Neutrophils # (Manual) Band Neutrophils # Total Absolute Neuts Lymphocytes # (Manual) Prolymphocyte # Reactive Lymphs # Total Abs Lymphocytes Monocytes # (Manual) Eosinophils # (Manual) Basophils # (Manual) Metamyelocytes # (Man) Myelocytes # (Manual) Promyelocytes # (Man) Blast Cells # (Man) Plasma Cell # (Manual) Other Cells # Nucleated RBCs # (Man) Hypersegmented Neuts Hyposegmented Neuts Hypogranular Neuts Large Granular Lymphs # Lrg Granular Lymphs Hairy Cells Smudge Cells Toxic Granulation Toxic Vacuolation Dohle Bodies Herbert Rods Platelet Estimate Hypogranular Platelets Giant Platelets Platelet Satelliting RBC Morphology Polychromasia Hypochromasia Poikilocytosis Basophilic Stippling Anisocytosis Microcytosis Macrocytosis Spherocytes Pappenheimer Bodies Sickle Cells Target Cells Tear Drop Cells Ovalocytes Stomatocytes [place]uff[place] Bodies Echinocytes Acanthocytes (Spur) Rouleaux RBC Agglutinates Schistocytes Sezary Cell PT INR Sample Site R Radial POC pH 7.31 L POC pCO2 57 H POC pO2 91 POC HCO3 29 H POC Base Excess 2.0 H ABG pH ABG pH (Temp Correct) 7.310 L ABG pCO2 ABG pCO2 (Temp Corrct 57 H ABG pO2 POC ABG pO2 at Pt Temp 90 ABG HCO3 POC ABG O2 Sat 96.0 H ABG O2 Saturation ABG Base Excess Rodrigue Test Pass VBG pH VBG pCO2 VBG pO2 VBG HCO3 VBG O2 Saturation VBG Base Excess Barometric Pressure Oxygen Given O2 Delivery Device Cannula POC Sodium 135 Sodium POC Potassium 4.3 Potassium POC Chloride Chloride Carbon Dioxide POC Total CO2 30 Anion Gap POC Anion Gap POC BUN BUN Creatinine POC Creatinine Est Cr Clr Drug Dosing Est GFR ( Amer) Est GFR (Non-Af Amer) BUN/Creatinine Ratio Glucose POC Glucose 122 H POC Glucose (other) Estimat Average Glucose Hemoglobin A1c Lactate 6.5 H* Calcium POC Ioniz Calcium Carol Magnesium Total Bilirubin AST ALT Alkaline Phosphatase Ammonia Troponin I High Sens Total Protein Albumin Globulin Albumin/Globulin Ratio Procalcitonin Urine Color Urine Appearance Urine pH Ur Specific [place] Urine Protein Urine Glucose (UA) Urine Ketones Urine Blood Urine Nitrite Urine Bilirubin Urine Urobilinogen Ur Leukocyte Esterase Salicylates Urine Opiates Screen Ur Methadone, Qual Acetaminophen Urine Barbiturates Ur Phencyclidine (PCP) U Amphetamin/Meth Scrn MDMA (Ecstasy) Screen U Benzodiazepines Scrn Ur Cocaine Metabolite U Marijuana (THC) Screen Ethyl Alcohol mg/dL SARS-CoV-2, RNA, NAAT Blood Parasites ID 03/30/23 03/31/23 21:06 00:22 WBC RBC Hgb POC Hgb Hct POC Hct MCV MCH MCHC RDW Std Deviation RDW Coeff of [place] Plt Count MPV Immature Gran % (Auto) Neut % (Auto) Lymph % (Auto) [place] % (Auto) Eos % (Auto) Baso % (Auto) Neut # (Auto) Lymph # (Auto) [place] # (Auto) Eos # (Auto) Baso # (Auto) Immature Gran # (Auto) Absolute Nucleated RBC Nucleated RBC % (auto) Neutrophils % (Manual) Band Neutrophils % Lymphocytes % (Manual) Prolymphocyte % Reactive Lymphs % (Man) Monocytes % (Manual) Eosinophils % (Manual) Basophils % (Manual) Metamyelocytes % (Man) Myelocytes % (Man) Promyelocytes % (Man) Blast Cells % (Manual) Plasma Cell % (Manual) Other Cells % Nucleated RBC % Neutrophils # (Manual) Band Neutrophils # Total Absolute Neuts Lymphocytes # (Manual) Prolymphocyte # Reactive Lymphs # Total Abs Lymphocytes Monocytes # (Manual) Eosinophils # (Manual) Basophils # (Manual) Metamyelocytes # (Man) Myelocytes # (Manual) Promyelocytes # (Man) Blast Cells # (Man) Plasma Cell # (Manual) Other Cells # Nucleated RBCs # (Man) Hypersegmented Neuts Hyposegmented Neuts Hypogranular Neuts Large Granular Lymphs # Lrg Granular Lymphs Hairy Cells Smudge Cells Toxic Granulation Toxic Vacuolation Dohle Bodies Herbert Rods Platelet Estimate Hypogranular Platelets Giant Platelets Platelet Satelliting RBC Morphology Polychromasia Hypochromasia Poikilocytosis Basophilic Stippling Anisocytosis Microcytosis Macrocytosis Spherocytes Pappenheimer Bodies Sickle Cells Target Cells Tear Drop Cells Ovalocytes Stomatocytes [place] Bodies Echinocytes Acanthocytes (Spur) Rouleaux RBC Agglutinates Schistocytes Sezary Cell PT INR Sample Site POC pH POC pCO2 POC pO2 POC HCO3 POC Base Excess ABG pH ABG pH (Temp Correct) ABG pCO2 ABG pCO2 (Temp Corrct ABG pO2 POC ABG pO2 at Pt Temp ABG HCO3 POC ABG O2 Sat ABG O2 Saturation ABG Base Excess Rodrigue Test VBG pH 7.33 L 7.43 H VBG pCO2 53 H 50 VBG pO2 88 56 VBG HCO3 28 33 VBG O2 Saturation 98.2 88.7 VBG Base Excess 1.0 7.5 Barometric Pressure Oxygen Given O2 Delivery Device POC Sodium Sodium POC Potassium Potassium POC Chloride Chloride Carbon Dioxide POC Total CO2 Anion Gap POC Anion Gap POC BUN BUN Creatinine POC Creatinine Est Cr Clr Drug Dosing Est GFR ( Amer) Est GFR (Non-Af Amer) BUN/Creatinine Ratio Glucose POC Glucose POC Glucose (other) Estimat Average Glucose Hemoglobin A1c Lactate Calcium POC Ioniz Calcium Carol Magnesium Total Bilirubin AST ALT Alkaline Phosphatase Ammonia Troponin I High Sens Total Protein Albumin Globulin Albumin/Globulin Ratio Procalcitonin Urine Color Urine Appearance Urine pH Ur Specific [place] Urine Protein Urine Glucose (UA) Urine Ketones Urine Blood Urine Nitrite Urine Bilirubin Urine Urobilinogen Ur Leukocyte Esterase Salicylates Urine Opiates Screen Ur Methadone, Qual Acetaminophen Urine Barbiturates Ur Phencyclidine (PCP) U Amphetamin/Meth Scrn MDMA (Ecstasy) Screen U Benzodiazepines Scrn Ur Cocaine Metabolite U Marijuana (THC) Screen Ethyl Alcohol mg/dL SARS-CoV-2, RNA, NAAT Blood Parasites ID 03/31/23 03:58 WBC RBC Hgb POC Hgb Hct POC Hct MCV MCH MCHC RDW Std Deviation RDW Coeff of [place] Plt Count MPV Immature Gran % (Auto) Neut % (Auto) Lymph % (Auto) [place] % (Auto) Eos % (Auto) Baso % (Auto) Neut # (Auto) Lymph # (Auto) [place] # (Auto) Eos # (Auto) Baso # (Auto) Immature Gran # (Auto) Absolute Nucleated RBC Nucleated RBC % (auto) Neutrophils % (Manual) Band Neutrophils % Lymphocytes % (Manual) Prolymphocyte % Reactive Lymphs % (Man) Monocytes % (Manual) Eosinophils % (Manual) Basophils % (Manual) Metamyelocytes % (Man) Myelocytes % (Man) Promyelocytes % (Man) Blast Cells % (Manual) Plasma Cell % (Manual) Other Cells % Nucleated RBC % Neutrophils # (Manual) Band Neutrophils # Total Absolute Neuts Lymphocytes # (Manual) Prolymphocyte # Reactive Lymphs # Total Abs Lymphocytes Monocytes # (Manual) Eosinophils # (Manual) Basophils # (Manual) Metamyelocytes # (Man) Myelocytes # (Manual) Promyelocytes # (Man) Blast Cells # (Man) Plasma Cell # (Manual) Other Cells # Nucleated RBCs # (Man) Hypersegmented Neuts Hyposegmented Neuts Hypogranular Neuts Large Granular Lymphs # Lrg Granular Lymphs Hairy Cells Smudge Cells Toxic Granulation Toxic Vacuolation Dohle Bodies Herbert Rods Platelet Estimate Hypogranular Platelets Giant Platelets Platelet Satelliting RBC Morphology Polychromasia Hypochromasia Poikilocytosis Basophilic Stippling Anisocytosis Microcytosis Macrocytosis Spherocytes Pappenheimer Bodies Sickle Cells Target Cells Tear Drop Cells Ovalocytes Stomatocytes [place] Bodies Echinocytes Acanthocytes (Spur) Rouleaux RBC Agglutinates Schistocytes Sezary Cell PT INR Sample Site POC pH POC pCO2 POC pO2 POC HCO3 POC Base Excess ABG pH ABG pH (Temp Correct) ABG pCO2 ABG pCO2 (Temp Corrct ABG pO2 POC ABG pO2 at Pt Temp ABG HCO3 POC ABG O2 Sat ABG O2 Saturation ABG Base Excess Rodrigue Test VBG pH VBG pCO2 VBG pO2 VBG HCO3 VBG O2 Saturation VBG Base Excess Barometric Pressure Oxygen Given O2 Delivery Device POC Sodium Sodium 135 L POC Potassium Potassium 4.5 POC Chloride Chloride 99 Carbon Dioxide 30 POC Total CO2 Anion Gap 6 POC Anion Gap POC BUN BUN 14 Creatinine 1.03 POC Creatinine Est Cr Clr Drug Dosing 89.3 Est GFR ( Amer) 77.6 Est GFR (Non-Af Amer) 67.0 BUN/Creatinine Ratio 13.6 Glucose 124 H POC Glucose POC Glucose (other) Estimat Average Glucose Hemoglobin A1c Lactate Calcium 8.1 L POC Ioniz Calcium Carol Magnesium Total Bilirubin 2.2 H AST 97 H ALT 34 Alkaline Phosphatase 72 Ammonia Troponin I High Sens Total Protein 5.9 L Albumin 2.4 L Globulin 3.5 Albumin/Globulin Ratio 0.7 L Procalcitonin Urine Color Urine Appearance Urine pH Ur Specific [place] Urine Protein Urine Glucose (UA) Urine Ketones Urine Blood Urine Nitrite Urine Bilirubin Urine Urobilinogen Ur Leukocyte Esterase Salicylates Urine Opiates Screen Ur Methadone, Qual Acetaminophen Urine Barbiturates Ur Phencyclidine (PCP) U Amphetamin/Meth Scrn MDMA (Ecstasy) Screen U Benzodiazepines Scrn Ur Cocaine Metabolite U Marijuana (THC) Screen Ethyl Alcohol mg/dL SARS-CoV-2, RNA, NAAT Blood Parasites ID 03/31/23 03/31/23 03/31/23 05:00 05:27 07:28 WBC 9.91 RBC 3.62 L Hgb 10.3 L POC Hgb Hct 33.1 L POC Hct MCV 91.4 MCH 28.5 MCHC 31.1 L RDW Std Deviation 70.0 H RDW Coeff of [place] 21.1 H Plt Count 104 L MPV 8.9 L Immature Gran % (Auto) 0.3 Neut % (Auto) 64.2 Lymph % (Auto) 19.3 [place] % (Auto) 13.7 Eos % (Auto) 1.7 Baso % (Auto) 0.8 Neut # (Auto) 6.36 Lymph # (Auto) 1.91 [place] # (Auto) 1.36 H Eos # (Auto) 0.17 Baso # (Auto) 0.08 Immature Gran # (Auto) 0.03 Absolute Nucleated RBC Nucleated RBC % (auto) Neutrophils % (Manual) Band Neutrophils % Lymphocytes % (Manual) Prolymphocyte % Reactive Lymphs % (Man) Monocytes % (Manual) Eosinophils % (Manual) Basophils % (Manual) Metamyelocytes % (Man) Myelocytes % (Man) Promyelocytes % (Man) Blast Cells % (Manual) Plasma Cell % (Manual) Other Cells % Nucleated RBC % Neutrophils # (Manual) Band Neutrophils # Total Absolute Neuts Lymphocytes # (Manual) Prolymphocyte # Reactive Lymphs # Total Abs Lymphocytes Monocytes # (Manual) Eosinophils # (Manual) Basophils # (Manual) Metamyelocytes # (Man) Myelocytes # (Manual) Promyelocytes # (Man) Blast Cells # (Man) Plasma Cell # (Manual) Other Cells # Nucleated RBCs # (Man) Hypersegmented Neuts Hyposegmented Neuts Hypogranular Neuts Large Granular Lymphs # Lrg Granular Lymphs Hairy Cells Smudge Cells Toxic Granulation Toxic Vacuolation Dohle Bodies Herbert Rods Platelet Estimate Hypogranular Platelets [place] Platelets Platelet Satelliting RBC Morphology Polychromasia 1+ Hypochromasia Poikilocytosis Basophilic Stippling Anisocytosis Present Microcytosis Macrocytosis Spherocytes Pappenheimer Bodies Sickle Cells Target Cells Tear Drop Cells Ovalocytes Stomatocytes [place] Bodies Echinocytes Acanthocytes (Spur) Rouleaux RBC Agglutinates Schistocytes Sezary Cell PT INR Sample Site POC pH POC pCO2 POC pO2 POC HCO3 POC Base Excess ABG pH ABG pH (Temp Correct) ABG pCO2 ABG pCO2 (Temp Corrct ABG pO2 POC ABG pO2 at Pt Temp ABG HCO3 POC ABG O2 Sat ABG O2 Saturation ABG Base Excess Rodrigue Test VBG pH VBG pCO2 VBG pO2 VBG HCO3 VBG O2 Saturation VBG Base Excess Barometric Pressure Oxygen Given O2 Delivery Device POC Sodium Sodium POC Potassium Potassium POC Chloride Chloride Carbon Dioxide POC Total CO2 Anion Gap POC Anion Gap POC BUN BUN Creatinine POC Creatinine Est Cr Clr Drug Dosing Est GFR ( Amer) Est GFR (Non-Af Amer) BUN/Creatinine Ratio Glucose POC Glucose 107 H POC Glucose (other) Estimat Average Glucose 85 Hemoglobin A1c 4.6 Lactate Calcium POC Ioniz Calcium Carol Magnesium Total Bilirubin AST ALT Alkaline Phosphatase Ammonia Troponin I High Sens Total Protein Albumin Globulin Albumin/Globulin Ratio Procalcitonin Urine Color Urine Appearance Urine pH Ur Specific [place] Urine Protein Urine Glucose (UA) Urine Ketones Urine Blood Urine Nitrite Urine Bilirubin Urine Urobilinogen Ur Leukocyte Esterase Salicylates Urine Opiates Screen Ur Methadone, Qual Acetaminophen Urine Barbiturates Ur Phencyclidine (PCP) U Amphetamin/Meth Scrn MDMA (Ecstasy) Screen U Benzodiazepines Scrn Ur Cocaine Metabolite U Marijuana (THC) Screen Ethyl Alcohol mg/dL SARS-CoV-2, RNA, NAAT Blood Parasites ID PG Care Time/CCT Total # of Minutes Spent Total Time Spent with Patient: Total time spent is greater than 50% in coordination of care (as documented) at patient's floor/unit and/or counseling patient: Coding Level of Care Code 80115 SUB INP/OBS CARE 3/50MIN Diagnoses Acute encephalopathy G93.40 Acute hypercapnic respiratory failure J96.02 Ascites R18.8 Opioid dependence F11.20 Hyperammonemia E72.20 JOANNA (acute kidney injury) N17.9 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 Sleep apnea G47.30 Neurogenic bladder N31.9 Esophageal varices I85.00 Polypharmacy Z79.899 History of CVA (cerebrovascular accident) Z86.73 Diabetes mellitus E11.9 Hypothyroidism E03.9 Portal vein thrombosis I81 Splenic vein thrombosis I82.890
[2023-03-31] MEDS: cefTRIAXone SODIUM 2,000 MG in DEXTROSE 5% 50 ML IV SCH (17:47)
[2023-03-31] MEDS ORDERED: rOPINIRole HCL 2 MG TABLET PO PRN (19:36)
[2023-04-01] MEDS: PROCHLORPERAZINE MALEATE 5 MG TAB PO PRN ×3 (00:23→13:46)
--- NOTE | 2023-04-01 01:12 | Communication Note ---
Date of Service: April 01, 2023 Pt was unable to perform MRI due to orthopnea. She felt the sob was due to abdominal distention. Lungs clear. May need therapeutic paracentesis in the . Will hold off on MRI for now. Resident Activity Tracking Resident Involvement: Resident Care Provided Care Provided: Adult Hospital Medicine
[2023-04-01] MEDS: LEVOTHYROXINE SODIUM 125 MCG TABLET PO SCH (05:56)
--- NOTE | 2023-04-01 07:54 | Hospitalist Progress Note ---
Date of Service April 01, 2023 Assessment & Plan (1) Acute encephalopathy: Plan: Resolved, now at baseline Metabolic multifactorial encephalopathy - elevated ammonia levels, hypercapnia, polypharmacy with prescribed medications (narcotics, benzos) MRI brain unable to be performed due to orthopnea from ascites, however less likely given resolution at this time Hyperammonemia resolved with lactulose/rifaximin Hypercapnia - recommend BIPAP overnight Benzos/narcs held, only prn in outpatient setting with oversight by caregiver to monitor use given obtundation Hx blood cx's NGTD Doubt SBP, paracentesis without elevated WBCs or increased PMNs, ceftriaxone discontinued (2) Acute hypercapnic respiratory failure: Plan: Resolved s/p BIPAP overnight 03/31 Question involvement of narcotics/benzos leading to CO2 retention, multifactorial with hepatic encephalopathy Also with Hx CHIVO (3) Ascites: Plan: Paracentesis 03/26 with nearly 4 L removed Today 04/01 with removal of 7.5L ascitic fluid, ordered albumin 25g following this Follow up with Hepatology Resume spironolactone 100mg BID, Bumex 1mg BID tomorrow AM (recently adjusted by [facility] after last admission) (4) Opioid dependence: Plan: As confirmed by PDMP Highly recommend cessation if possible however at least moving to PRN dosing given by for severe pain (5) Hyperammonemia: Plan: Resolved Cont lactulose - aim 3 BMs/day Cont rifaximin (6) JOANNA (acute kidney injury): Plan: Creatinine 0.65 today, JOANNA resolved Resume home dose diuretics tomorrow (7) 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: Plan: Saw [facility] at [facility], getting records Known varices 03/26/23 - last paracentesis at [facility] (no evidence SBP by way of cell counts) aldactone/bumex resumed as JOANNA has resolved Continue rifaximin and lactulose Has not gone on transplant list yet (8) Sleep apnea: Plan: Known dx but is not on CPAP Sleep study was several years ago in 2020, needs repeat study and stressed importance of this (9) Neurogenic bladder: Plan: Du (10) Esophageal varices: Plan: would benefit from BB uncertain why she is not on inderal or nadalol defer to GI hemoglobin stable; no signs of GI bleeding (11) Polypharmacy: Plan: benzos, narcotics, etc (12) 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 Unable to tolerate MRI as above, defer at this time (13) Diabetes mellitus: Plan: Resolved A1c <6% (14) Hypothyroidism: Plan: Last several TSH levels all low Agree with levothyroxine dose reduction to 250mcg/day (15) Portal vein thrombosis: Plan: Dr Galvez [facility] advised Lovenox 100mg BID and to stop Plavix (16) Splenic vein thrombosis: Plan: Dr Galvez spoke [facility] they advised Lovenox 100mg BID and to stop Plavix Plan CM assisting with outpatient needs, will need pill packs and new prescriptions, good advisement on next steps for patient and her who are both overwhelmed with the medical changes Admission and Anticipated Discharge Date Admission Date: March 30, 2023 Subjective Very uncomfortable prior to paracentesis, however with significant improvement in symptoms post para. Denies abdominal pain. Feeling very anxious. Review of Systems Review of Systems: All systems reviewed & are unremarkable except as noted in Subjective Physical Exam Constitutional: WD/WN, vitals as above Respiratory: normal respiratory effort, lungs clear to auscultation Cardiovascular: RRR, no murmur, no edema Gastrointestinal (Abdomen): abdomen soft, distended, no abd pain but some pressure sensation Skin: no rashes, warm and dry Psychiatric: alert and oriented, anxious affect Results & Data Results & Data Vital Signs (Past 12 Hours) Vital Signs Temp Pulse Pulse Resp BP BP Pulse Ox 04/01/23 07:26 36.9 C 95 H 20 110/75 96 04/01/23 02:54 36.7 C 84 18 135/73 94 03/31/23 23:13 87 03/31/23 23:10 36.9 C 86 18 115/68 95 03/31/23 20:03 37.1 C 88 20 138/84 98 O2 Del Method 04/01/23 07:26 Room Air 04/01/23 02:54 Room Air 03/31/23 23:13 03/31/23 23:10 Room Air 03/31/23 20:03 Room Air PG Care Time/CCT Total # of Minutes Spent Total Time Spent with Patient: Total time spent is greater than 50% in coordination of care (as documented) at patient's floor/unit and/or counseling patient: Coding Level of Care Code 20424 SUB INP/OBS CARE 3/50MIN Diagnoses Acute encephalopathy G93.40 Acute hypercapnic respiratory failure J96.02 Ascites R18.8 Opioid dependence F11.20 Hyperammonemia E72.20 JOANNA (acute kidney injury) N17.9 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 Sleep apnea G47.30 Neurogenic bladder N31.9 Esophageal varices I85.00 Polypharmacy Z79.899 History of CVA (cerebrovascular accident) Z86.73 Diabetes mellitus E11.9 Hypothyroidism E03.9 Portal vein thrombosis I81 Splenic vein thrombosis I82.890
[2023-04-01 08:01] LABS: Basophils # (auto) 0.07 K/uL (0-0.2); Basophils % (auto) 0.7 %; Eosinophils # (auto) 0.37 K/uL (0-0.50); Eosinophils % (auto) 3.8 %; Hematocrit (blood only) 33.6 % (37.0-47.0); Hemoglobin 11.1 g/dl (12.0-16.0); Immature Granulocytes # (auto) 0.05 K/uL (0.01-0.20); Immature Granulocytes % (auto) 0.5 %; Lymphocytes # (auto) 1.92 K/uL (1.2-3.4); Lymphocytes % (auto) 19.6 %; Mean Corpuscular Volume 87.7 fL (80.0-100.0); Mean Platelet Volume 9.1 fL (9.4-12.4); Monocytes # (auto) 1.07 K/uL (0.11-0.59); Monocytes % (auto) 10.9 %; Neutrophils # (auto) 6.31 K/uL (1.40-6.50); Neutrophils % (auto) 64.5 %; Platelet Count 122 K/uL (130-400); RDW Coefficient of Variation 21.3 % (11.5-14.5); RDW Standard Deviation 68.6 fL (36.4-46.3); Red Blood Count 3.83 M/uL (4.20-5.40); White Blood Count 9.79 K/ul (4.8-10.8)
[2023-04-01 08:29] LABS: Anisocytosis Present
[2023-04-01] MEDS: PANTOprazole 40 MG TAB PO SCH (08:52)
[2023-04-01] MEDS: POTASSIUM CHLORIDE CRTAB 20 MEQ TABCR PO SCH ×2 (08:53→20:13)
[2023-04-01] MEDS: rifAXIMin 550 MG TABLET PO SCH ×2 (08:54→20:13)
[2023-04-01] MEDS: FAMOTIDINE 40 MG TABLET PO SCH (08:54)
[2023-04-01] MEDS: CHOLECALCIFEROL 5,000 UNITS 125 MCG TAB PO SCH (08:55)
[2023-04-01] MEDS: DOCUSATE SODIUM 100 MG CAP PO SCH (08:57)
[2023-04-01] MEDS: METOPROLOL SUCC 25MG EXT REL TAB PO SCH (08:58)
[2023-04-01] MEDS: VENLAFAXINE HCL XR 75 MG CAPXR PO SCH (08:59)
[2023-04-01] MEDS: buPROPion XL 150 MG TABCR PO SCH (08:59)
[2023-04-01] MEDS: MAGNESIUM OXIDE 400 MG TAB PO SCH ×2 (09:00→20:12)
[2023-04-01] MEDS: LACTULOSE SYRUP 20 GM/30 ML UDC PO SCH ×3 (09:01→20:15)
[2023-04-01] MEDS ORDERED: LORazepam 0.5 MG TAB PO STA ×2 (09:08→16:39)
[2023-04-01] MEDS: INSULIN ASPART PER UNIT CHARGE SC SCH ×4 (09:28→20:54)
[2023-04-01] MEDS ORDERED: ONDANSETRON INJ 2 MG/ML 2 ML VIAL IV STA (09:37)
[2023-04-01 10:46] LABS: BUN Creatinine Ratio 16.9 (10-20); Calcium 8.6 mg/dl (8.6-10.3); Creatinine Clr Calc Pharmacy 140.8 ml/min; Est GFR (African American) 126.9 ml/min; Est GFR (Non-African American) 109.5 ml/min; Potassium 3.5 mmol/L (3.5-5.1)
[2023-04-01] MEDS: rOPINIRole HCL 2 MG TABLET PO PRN ×2 (13:43→21:43)
--- NOTE | 2023-04-01 15:59 | Ultrasound Report ---
Ultrasound-guided paracentesis INDICATION: Ascites PROCEDURE: Procedure and risks were explained. Informed consent was obtained. A final time out was co mpleted. The left lower quadrant was prepped and draped in sterile fashion. 1% buffered lidocaine was utilized for skin anesthesia. Utilizing ultrasound guidance, a 5 Brazilian safety centesis catheter was advanced into the left lower q uadrant pocket of ascites. Ultrasound images were obtained. A total of 7.4 L of yellow ascites fluid was removed, with 1 L sent to lab for analysis. The catheter was removed and Band-Aid applied. The pa tient tolerated the procedure well. Vital signs will be monitored postprocedure. IMPRESSION: Ultrasound-guided paracentesis as above. Performed, dictated, and signed by Marvin Greene PA-C; to be co-signed by Dr. Forrest Byrne. Electronically signed by: Forrest Byrne M.D. 04/01/2023 3:59 PM
[2023-04-01] MEDS: cefTRIAXone SODIUM 2,000 MG in DEXTROSE 5% 50 ML IV SCH (16:12)
[2023-04-01 16:44] LABS: Appearance Peritoneal Fluid Clear; Color Peritoneal Fluid Pale Yellow; Eosinophils, Fluid 1 %; Lymphocytes, Fluid 46 %; Mono,Macrophage,Mesothelial 30 %; Neutrophils, Fluid 23 %; RBC Peritoneal Fluid Auto < 2000 /uL; WBC Peritoneal Fluid Auto 215 /ul (0-300)
[2023-04-01] MEDS ORDERED: ALBUMIN 25% 25 GM/100 ML VIAL IV ONE (18:00)
[2023-04-01] MEDS: PROCHLORPERAZINE 5 MG in SYRINGE 4 ML IV PRN (18:09)
[2023-04-01] MEDS ORDERED: BUMETANIDE 1 MG TAB PO SCH (21:00)
[2023-04-01] MEDS ORDERED: LORazepam 2 MG/1 ML VIAL IV STA (23:34)
[2023-04-02] MEDS: LEVOTHYROXINE SODIUM 125 MCG TABLET PO SCH (05:45)
[2023-04-02 07:18] LABS: Basophils # (auto) 0.05 K/uL (0-0.2); Basophils % (auto) 0.7 %; Eosinophils # (auto) 0.18 K/uL (0-0.50); Eosinophils % (auto) 2.7 %; Hematocrit (blood only) 30.1 % (37.0-47.0); Hemoglobin 9.8 g/dl (12.0-16.0); Immature Granulocytes # (auto) 0.02 K/uL (0.01-0.20); Immature Granulocytes % (auto) 0.3 %; Mean Corpuscular Hgb Conc 32.6 g/dL (32.0-36.0); Mean Platelet Volume 9.4 fL (9.4-12.4); Monocytes # (auto) 0.78 K/uL (0.11-0.59); Monocytes % (auto) 11.7 %; Neutrophils # (auto) 4.05 K/uL (1.40-6.50); Neutrophils % (auto) 60.6 %; Platelet Count 97 K/uL (130-400); RDW Coefficient of Variation 21.6 % (11.5-14.5); RDW Standard Deviation 67.4 fL (36.4-46.3); White Blood Count 6.68 K/ul (4.8-10.8)
[2023-04-02 07:30] LABS: Creatinine Clr Calc Pharmacy 154.5 ml/min; Est GFR (African American) 132.5 ml/min; Est GFR (Non-African American) 114.3 ml/min
[2023-04-02 07:46] LABS: Anisocytosis Present
[2023-04-02] MEDS: INSULIN ASPART PER UNIT CHARGE SC SCH (07:54)
--- NOTE | 2023-04-02 07:58 | Discharge Summary ---
Discharge Summary Date of Service April 02, 2023 Notes For Next Care Provider Decrease levothyroxine home dose with repeat TSH in future Lovenox 100 BID SQ for portal/splenic vein thrombosis Bumex 1mg BID, spironolactone 100mg BID per Hepatology on 03/28 Patient doing home pill packs, handling opiate medications to prevent obtundation from polypharmacy Admission HPI Per Admitting Provider Admit sx: GI appointment 03/29: Per patient switched to Bumex twice daily, Spyro increased to 100 twice daily, Lovenox held pending clarification of Plavix recommendations due to bleeding risk Admit 03/26 - 03/28: Hepatic encephalopathy, hyperammonemia. Started on Lovenox in place of Plavix for extension of splenic thrombus after discussion with [facility] hepatology Admit -03/17 for hyperammonemia + encephalopathy. Started on xifaxan. Outpt GI 03/14/23. GI concerned for med compliance. Pending enrollment with hepatology in June. Per GI 03/05/23: Lactulose 30g TID, Xifaxan 550mg BID, Aldactone:lasix 100:40 for ascites (50 mg Aldactone twice daily, Lasix 80 mg twice daily (. Had paracentesis at that hospitalization 5 L withdrawn 03/06. Admitted 01/08 - 01/10/2023 for pain, lethargy, confusion 2/2 hepatic encephalopathy worsened with chronic opioid use and GI bleed. Switched from aspirin to Plavix during that admission. 02/04 - 02/09/2023: Confusion, falls, hepatic encephalopathy in the setting of UTI. Paracentesis of 2.2 L and discharged to [facility] Admitted 02/14 - 02/17/2023 with altered mental status suspected due to hepatic encephalopathy with additional baclofen use and hyponatremia. Baclofen discontinued, mental state improved. Return to [facility] and was discharged home 03/01/2023 Admitted 03/04/2023 - 03/07/2023 for upper abdominal pain, back pain, poor p.o. intake and significant ascites. In admission she saw GI who made diuretic recommendations, patient had 5 L paracentesis on 03/06 by IR. She was discharged to [facility] 03/07 and then was discharged home 03/14. Patient seen at the bedside. Her called 91 this morning when she was found on the couch altered with decreased responsiveness and coarse breath sounds. Patient was brought in by ambulance with intermittent periods of apnea. Has been taking medications as directed per report. While under ER care patient reportedly had episodes in which eyes rolled back into her head and become slightly apneic, but did not have shaking and would respond shortly after and did not appear postictal. Patient's reports that they just saw Jessica hepatology for the first time at [facility] yesterday. They held Lovenox pending clarification of what to do with her Plavix due to bleeding risk. They also changed her torsemide to Bumex and increased her spironolactone to 100 mg twice daily. She is not yet on a liver transplant list but was pending a follow-up visit later this month to do potential transplant intake evaluation. She reports she did well up until Friday and that appointment, and then she seemed a little off over the weekend and ultimately was found to be apneic with greatly increased confusion as otherwise noted. At bedside history is limited by hepatic encephalopathy. She awakens to voice and responds and follows some one-step commands, but is very somnolent and intermittently falls asleep and then wakes back up. Frequently says that she has to pee, expresses confusion over the fact that she can be with a Du catheter in place and recurrently tries to get out of bed. Somewhat difficult to reorient. Denies chest pain, chest pressure. Reports she felt very cold last night. Endorses abdominal tenderness. Her and her at bedside who offers collateral report that she is taking medications as directed, has not taken any extra narcotic medications, and has not missed any occasions other than having the Lovenox stopped. Her mentation and breathing did not improve following administration of 1 dose of Narcan while in the ER. Medical History: Reviewed Medications: Reviewed Surgical History: Reviewed Family history: Reviewed Allergies: Reviewed Social History: Reviewed Code Status: Full Admission Exam Per Admitting Provider General: Extremely somnolent, awakens transiently. Appears confused. HEENT: Atraumatic, normocephalic. Pulm: Coarse upper airway respirations, lower poon clear and without rales symmetrical chest rise. No increased work of breathing. No respiratory distress. Cardiac: Regular, tachycardia. Radial pulses intact and symmetrical. Abdominal: Distended, moderate ascites. Mildly tender diffusely to palpation, no rebound tenderness/guarding. Principal Dx & Hospital Course #1 = Principal Diagnosis (1) Acute encephalopathy: Resolved, now at baseline Metabolic multifactorial encephalopathy - elevated ammonia levels, hypercapnia, polypharmacy with prescribed medications (narcotics, benzos) MRI brain unable to be performed due to orthopnea from ascites, however less likely CVA related given resolution at this time Hyperammonemia resolved with lactulose/rifaximin Hypercapnia - recommend BIPAP overnights Benzos/narcs held, only prn in outpatient setting with oversight by caregiver to monitor use given obtundation Hx Blood cx's NGTD Doubt SBP, paracentesis without elevated WBCs or increased PMNs, ceftriaxone discontinued (2) Acute hypercapnic respiratory failure: Resolved s/p BIPAP overnight 03/31 Question involvement of narcotics/benzos leading to CO2 retention, multifactorial with hepatic encephalopathy Also with Hx CHIVO (3) Ascites: Paracentesis 03/26 with nearly 4 L removed 04/01 had paracentesis with removal of 7.5L ascitic fluid, ordered albumin 25g following this Follow up with Hepatology Resume spironolactone 100mg BID, Bumex 1mg BID (recently adjusted by [facility]atology on 03/28) Close GI follow up for serial paracentesis and medication adjustment (4) Opioid dependence: As confirmed by PDMP Highly recommend cessation if possible however at least moving to PRN sparing dosing given by for severe pain (5) Hyperammonemia: Resolved Cont lactulose - aim 3 BMs/day Cont rifaximin (6) JOANNA (acute kidney injury): Creatinine reviewed, 0.57 today, JOANNA resolved Resume home dose diuretics (7) 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: Saw Jessica GI at [facility] on 03/28/23, getting records placed into chart Known varices No evidence of SBP on para 04/01 Aldactone/Bumex resumed as JOANNA has resolved Continue rifaximin and lactulose Has not gone on transplant list yet Has a lot of illness related anxiety and depression, given resources for counseling and also to f/u PCP for antidepressant adjustment (8) Sleep apnea: Known dx but is not on CPAP Sleep study was several years ago in 2020, needs repeat study and stressed importance of this given can contribute greatly to obtundation (9) Neurogenic bladder: Du (10) Esophageal varices: Would benefit from BB Uncertain why she is not on inderal or nadalol Defer to GI Hemoglobin stable; no signs of GI bleeding (11) 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 Unable to tolerate MRI as above, defer at this time (12) Diabetes mellitus: Resolved A1c <6% (13) Hypothyroidism: Last several TSH levels all low Agree with levothyroxine dose reduction from 300mcg daily (14) Portal vein thrombosis: Dr Galvez spoke with hepatology at [facility] They advised Lovenox 100mg BID and to stop Plavix (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: Dr Galvez spoke with hepatology at [facility] they advised Lovenox 100mg BID and to stop Plavix Plan CM assisting with outpatient needs, will need pill packs and new prescriptions, good advisement on next steps for patient and her who are both overwhelmed with the medical changes Discharge Exam Constitutional WD/WN, vitals as above Respiratory normal respiratory effort, lungs clear to auscultation Gastrointestinal (Abdomen) abdomen distended but skin not tight, much improved from yesterday's exam, some ecchymosis without drainage or bleeding from puncture site in left abdominal wall Skin no rashes, warm and dry Psychiatric A+Ox3, euthymic affect Updated Medication List Medication Instructions Recorded Confirmed Type Kristalose Powder 1 dose PO TID 02/14/23 03/30/23 History Tums Gas Relief 750mg/80mg 1 tab PO Q6 02/14/23 03/30/23 History artificial saliva (yerba demar and 1 spray mucous membrane QID PRN 02/14/23 03/30/23 History lytes) spray (Mouth [place]) .DRY MOUTH cholecalciferol (vitamin D3) 125 125 mcg PO DAILY 02/14/23 03/30/23 History mcg (5,000 unit) tablet (Vitamin D3) famotidine 20 mg tablet 40 mg PO DAILY 02/14/23 03/30/23 History ipratropium 20 mcg-albuterol 100 1 puff inhalation QID PRN Other 02/14/23 03/30/23 History mcg/actuation mist for inhalation (Combivent Respimat) linagliptin 5 mg tablet (Tradjenta) 5 mg PO DAILY 02/14/23 03/30/23 History metoprolol succinate 25 mg 12.5 mg PO DAILY 02/14/23 03/30/23 History tablet,extended release 24 hr (Toprol XL) naloxone 0.4 mg/mL injection 0 mg intranasal DIRECTED PRN 02/14/23 03/30/23 History solution .OPIOD OD ondansetron HCl 4 mg tablet 8 mg PO Q4 PRN Nausea 02/14/23 03/30/23 History oxycodone 5 mg tablet 15 mg PO Q6H 02/14/23 03/30/23 History polyethylene glycol 3350 17 gram 17 g PO BID PRN Constipation 02/14/23 03/30/23 History oral powder packet (Miralax) potassium chloride 20 mEq 20 meq PO BID 02/14/23 03/30/23 History tablet,extended release prochlorperazine maleate 5 mg 5 mg PO Q6 PRN Nausea 02/14/23 03/30/23 History tablet rifaximin 550 mg tablet (Xifaxan) 550 mg PO Q12 02/14/23 03/30/23 History ropinirole 2 mg tablet 4 mg PO HS PRN .restless legs 02/14/23 03/30/23 History sennosides 8.6 mg-docusate sodium 1 tab-cap PO DAILY PRN Constipation 02/14/23 03/30/23 History 50 mg tablet (Senna-S) valacyclovir 500 mg tablet 500 mg PO Q8 PRN .BREAKOUTS 02/14/23 03/30/23 History levothyroxine 25 mcg tablet 0 mcg PO DAILY 03/04/23 03/26/23 History levothyroxine 300 mcg tablet 300 mcg PO DAILY 03/04/23 03/30/23 History lactulose 20 gram/30 mL oral 20 g (30 mL) PO TID #1,200 mL 03/07/23 03/30/23 Rx solution magnesium oxide 400 mg (241.3 mg 400 mg PO BID #60 tabs 03/07/23 03/30/23 Rx magnesium) tablet acetaminophen 500 mg capsule 500 mg PO Q6H PRN Pain 03/14/23 03/30/23 History bisacodyl 10 mg rectal suppository 10 mg W[place] DAILY PRN Constipation 03/14/23 03/30/23 History docusate sodium 100 mg capsule 100 mg PO DAILY 03/14/23 03/30/23 History hydroxyzine HCl 10 mg tablet 10 mg PO TID PRN other 03/14/23 03/30/23 History pantoprazole 40 mg tablet,delayed 40 mg PO DAILY 03/14/23 03/30/23 History release venlafaxine 75 mg tablet 75 mg PO DAILY 03/14/23 03/30/23 History enoxaparin 100 mg/mL subcutaneous 100 mg subcut Q12H 30 days #60 mL 03/28/23 03/30/23 Rx syringe alprazolam 1 mg tablet See Rx Instructions .Route 03/30/23 03/30/23 History .COMPLEX PRN Other bupropion HCl 150 mg 24 hr tablet, 150 mg PO DAILY 03/30/23 03/30/23 History extended release bumetanide 1 mg tablet 1 mg PO BID #60 tabs 04/02/23 03/30/23 Rx spironolactone 25 mg tablet 100 mg PO BID17 30 days #120 tabs 04/02/23 03/30/23 Rx Hospital Stay Data Consultations 04/01/23 12:57 Consult Behavioral Health Liaison Routine Diagnostic Imagining Performed 03/30/23 11:45 CT head/brain wo con Stat 03/30/23 14:54 CT Abd and Pelvis [CT abd pelvis IV con only] Stat 04/01/23 06:43 IR paracentesis abd w/img US Routine Discharge Instructions Given to Patient (Per Discharging Provider) You were admitted to the hospital for evaluation and management of altered mental status and elevated ammonia levels. You were also given a paracentesis for your ascites, and had 7.5 L taken off. You were given medications to help you have bowel movements, and your ammonia level returned to normal. With these interventions, your symptoms improved greatly. Please continue the medications as described on this medication list below. If any of the medications do not match the medications that you have at home, please immediately call your primary care provider/family doctor. It is critical that you maintain a low-sodium diet, and that you only take your opiate pain medications on an as-needed basis in the instances of very severe pain, because you are at increased risk for mental status changes due to your liver troubles. You will have services at home in order to help with your therapy, blood draws, and any other care needs you may have. You should contact your pharmacy in [place] in order to opt in for the $5 a month pill packs, to make your medications easier. In order to set this up, you have to take all of your medications in a bag to your pharmacist, and they will take the medications and make pill packs out of them. They will ask you to bring every medication you use, including as needed medications. They will also ask you to keep about a week's worth at home, so that they can have time to make the packs. It is critical that you maintain contact with both hepatology and GI services, as we anticipate that you will need paracentesis on an intermittent basis until you are evaluated for liver transplant. Total Time Total Time Spent Total Time Spent (In Minutes): 45 mins Coding Level of Care Code 68680 INP/OBS DISCH >30 MIN Diagnoses Acute encephalopathy G93.40 Acute hypercapnic respiratory failure J96.02 Ascites R18.8 Opioid dependence F11.20 Hyperammonemia E72.20 JOANNA (acute kidney injury) N17.9 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 Sleep apnea G47.30 Neurogenic bladder N31.9 Esophageal varices I85.00 History of CVA (cerebrovascular accident) Z86.73 Diabetes mellitus E11.9 Hypothyroidism E03.9 Portal vein thrombosis I81 Splenic vein thrombosis I82.890
[2023-04-02] MEDS: buPROPion XL 150 MG TABCR PO SCH (08:50)
[2023-04-02] MEDS: CHOLECALCIFEROL 5,000 UNITS 125 MCG TAB PO SCH (08:50)
[2023-04-02] MEDS: DOCUSATE SODIUM 100 MG CAP PO SCH (08:51)
[2023-04-02] MEDS: FAMOTIDINE 40 MG TABLET PO SCH (08:51)
[2023-04-02] MEDS: MAGNESIUM OXIDE 400 MG TAB PO SCH (08:53)
[2023-04-02] MEDS: LACTULOSE SYRUP 20 GM/30 ML UDC PO SCH (08:53)
[2023-04-02] MEDS: METOPROLOL SUCC 25MG EXT REL TAB PO SCH (08:54)
[2023-04-02] MEDS: PANTOprazole 40 MG TAB PO SCH (08:54)
[2023-04-02] MEDS: POTASSIUM CHLORIDE CRTAB 20 MEQ TABCR PO SCH (08:55)
[2023-04-02] MEDS: rifAXIMin 550 MG TABLET PO SCH (08:56)
[2023-04-02] MEDS: VENLAFAXINE HCL XR 75 MG CAPXR PO SCH (08:57)
[2023-04-02] MEDS ORDERED: SPIRONOLACTONE 100 MG TAB PO SCH (09:00)
[2023-04-02] MEDS ORDERED: BUMETANIDE 1 MG TAB PO SCH (09:00)
[2023-04-02] MEDS: PROCHLORPERAZINE 5 MG in SYRINGE 4 ML IV PRN (09:39)
[2023-04-02] MEDS: ENOXAPARIN 100 MG/1ML SYR SQ SCH (10:54)
[2023-04-02 11:17] LABS: 7-Aminoclonaz, Confirm NEGATIVE ng/mL (<25); Amobarbital, Urine Conf NEGATIVE ng/mL (<100); Butalbital, Urine 117 ng/mL (<100); Codeine Urine NEGATIVE ng/mL (<50); Hydro-Alp Ur, GC/MS 387 ng/mL (<25); Hydrocodone Urine NEGATIVE ng/mL (<50); Hydromor Urine NEGATIVE ng/mL (<50); Hydroxyethylflurazepam, Conf NEGATIVE ng/mL (<50); Hydroxymidazolam Ur, GC/MS NEGATIVE ng/mL (<50); Hydroxytriazolam NEGATIVE ng/mL (<50); Lorazepam, Ur GC/MS NEGATIVE ng/mL (<50); Morphine Urine >10000 ng/mL (<50); Nordiazepam, Confirm NEGATIVE ng/mL (<50); Norhydrocodone Conf Ur NEGATIVE ng/mL (<50); Noroxycodone Urine >10000 ng/mL (<50); Oxazepam Ur, GC/MS NEGATIVE ng/mL (<50); Oxycodone Urine >10000 ng/mL (<50); Oxymorph Urine 668 ng/mL (<50); Pentobarbital, Urine Conf NEGATIVE ng/mL (<100); Phenobarbital, Urine NEGATIVE ng/mL (<100); Secobarbital, Urine Conf NEGATIVE ng/mL (<100); Temazepam, Confirm NEGATIVE ng/mL (<50)
== END 2023-04-02 11:25 | disposition home health service (06) | DRG 70 ==
LOC: ED 11:38 → 2S 16:33 → SUATTDRO 16:33 → 2S 17:31

== ENCOUNTER 2023-04-27 15:42 | Inpatient (IN) ==
[2023-04-27 16:40] LABS: Basophils # (auto) 0.04 K/uL (0.00-0.20); Basophils % (auto) 0.7 %; Eosinophils # (auto) 0.35 K/uL (0.00-0.50); Eosinophils % (auto) 6.1 %; Hematocrit (blood only) 24.5 % (37.0-47.0); Hemoglobin 7.9 g/dl (12.0-16.0); Immature Granulocytes # (auto) 0.02 K/uL (0.01-0.20); Immature Granulocytes % (auto) 0.3 %; Lymphocytes # (auto) 0.95 K/uL (1.20-3.40); Lymphocytes % (auto) 16.5 %; Mean Corpuscular Hemoglobin 29.2 pg (25.0-34.0); Mean Corpuscular Hgb Conc 32.2 g/dL (32.0-36.0); Mean Corpuscular Volume 90.4 fL (80.0-100.0); Mean Platelet Volume 9.8 fL (9.4-12.4); Monocytes # (auto) 0.77 K/uL (0.11-0.59); Monocytes % (auto) 13.4 %; Neutrophils # (auto) 3.62 K/uL (1.40-6.50); Platelet Count 115 K/uL (130-400); RDW Coefficient of Variation 19.4 % (11.5-14.5); Red Blood Count 2.71 M/uL (4.20-5.40); White Blood Count 5.75 K/ul (4.8-10.8)
[2023-04-27 16:54] LABS: Alanine Aminotransferase 28 U/L (7-52); Albumin Globulin Ratio 1.2 (0.9-2); Albumin Level 2.8 gm/dl (3.4-5.0); Alkaline Phosphatase 71 U/L (34-104); Anion Gap 6 (3-11); Aspartate Aminotransferase 52 U/L (13-39); BUN Creatinine Ratio 14.4 (10-20); Bilirubin,Total 1.7 mg/dl (0.2-1.0); Blood Urea Nitrogen 18 mg/dl (6-23); Calcium 8.5 mg/dl (8.6-10.3); Carbon Dioxide 27 mmol/L (21-32); Chloride 100 mmol/L (98-107); Est GFR (African American) 61.4 ml/min; Globulin 2.4 gm/dl (2.5-4.0); Glucose 139 mg/dl (70-99(Fasting)); Sodium 133 mmol/L (136-145); Total Protein 5.2 gm/dl (6.0-8.3)
[2023-04-27 16:59] LABS: Hypochromasia Present; Polychromasia 1+; Tear Drop Cells 1+
[2023-04-27 17:25] LABS: Lipase 37 U/L (11-82)
[2023-04-27 18:27] LABS: INR 1.4 (0.9-1.1); Partial Thromboplastin Ratio 1.1; Partial Thromboplastin Time 30.3 Seconds (21.0-31.0); Prothrombin Time 15.1 Seconds (9.0-12.0)
[2023-04-27] MEDS ORDERED: PANTOprazole 80 MG in DEXTROSE 5% 100 ML IV ONE (18:53)
[2023-04-27] MEDS ORDERED: PANTOPRAZOLE BOLUS/DRIP IV STA (18:53)
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
[2023-04-27 19:51] LABS: Influenza A virus by PCR Negative (Neg); Influenza B virus by PCR Negative (Neg); RSV by PCR Negative (Neg); SARS CoV2 RNA(COVID-19) Ceph NEGATIVE (Negative)
[2023-04-27] MEDS: PANTOprazole 40 MG in DEXTROSE 5% 100 ML IV SCH (20:16)
--- NOTE | 2023-04-27 21:02 | CT Scan Report ---
Exam(s): CT HEAD Without Contrast EXAM: CT Head Without Intravenous Contrast CLINICAL HISTORY: Reason for exam: weakness confusion. TECHNIQUE: Axial computed tomography images of the head/brain without intravenous contrast. CTDI is 36.62 mGy and DLP is 547.75 mGy-cm. Automated exposure control was utilized for the study. A dose lowering technique was utilized adhering to the principles of ALARA. COMPARISON: No relevant prior studies available. FINDINGS: No acute intracranial hemorrhage. No midline shift or mass effect. The territorial coelho-white matter differentiation is maintained throughout. The ventricles and sulci are commensurate with age. The visualized orbits appear grossly unremarkable. The calvarium is intact. The visualized paranasal sinuses and mastoid air cells are grossly clear. IMPRESSION: No acute intracranial hemorrhage, midline shift, or mass effect. Electronically signed by: Lito Urias MD 04/27/23 21:01 PM
[2023-04-27] MEDS ORDERED: LACTULOSE SYRUP 30 GM/45 ML UDP PO STA (21:04)
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
[2023-04-28] MEDS: PANTOprazole 40 MG in DEXTROSE 5% 100 ML IV SCH ×3 (00:55→13:11)
[2023-04-28] MEDS ORDERED: rOPINIRole HCL 2 MG TABLET PO ONE (01:47)
[2023-04-28] MEDS ORDERED: ONDANSETRON INJ 2 MG/ML 2 ML VIAL IV PRN (02:08)
[2023-04-28] MEDS ORDERED: bisacodyL 10 MG SUPP PR PRN (02:08)
[2023-04-28] MEDS ORDERED: hydrOXYzine HCl 10 MG TAB PO PRN (02:08)
[2023-04-28] MEDS ORDERED: IPRATROPIUM BROMIDE/ALBUTEROL respimat INH INH PRN (02:08)
[2023-04-28] MEDS ORDERED: ACETAMINOPHEN 500 MG TAB PO PRN (02:30)
[2023-04-28] MEDS ORDERED: Albuterol HFA 8 GM Inhaler (Combivent Respimat P&T Subs) INH PRN (02:35)
[2023-04-28] MEDS ORDERED: Ipratropium HFA Inhaler (Combivent Respimat P&T Subs) INH PRN (02:36)
[2023-04-28 03:08] LABS: Basophils # (auto) 0.05 K/uL (0.00-0.20); Basophils % (auto) 0.9 %; Eosinophils # (auto) 0.33 K/uL (0.00-0.50); Eosinophils % (auto) 6.1 %; Hematocrit (blood only) 24.9 % (37.0-47.0); Hemoglobin 7.9 g/dl (12.0-16.0); Immature Granulocytes # (auto) 0.02 K/uL (0.01-0.20); Immature Granulocytes % (auto) 0.4 %; Lymphocytes # (auto) 1.14 K/uL (1.20-3.40); Lymphocytes % (auto) 21.2 %; Mean Corpuscular Hemoglobin 29.2 pg (25.0-34.0); Mean Corpuscular Hgb Conc 31.7 g/dL (32.0-36.0); Mean Corpuscular Volume 91.9 fL (80.0-100.0); Mean Platelet Volume 9.7 fL (9.4-12.4); Monocytes # (auto) 0.62 K/uL (0.11-0.59); Monocytes % (auto) 11.5 %; Neutrophils # (auto) 3.23 K/uL (1.40-6.50); Neutrophils % (auto) 59.9 %; Platelet Count 99 K/uL (130-400); RDW Coefficient of Variation 19.9 % (11.5-14.5); RDW Standard Deviation 67.6 fL (36.4-46.3); Red Blood Count 2.71 M/uL (4.20-5.40); White Blood Count 5.39 K/ul (4.8-10.8)
[2023-04-28 03:19] LABS: Albumin Globulin Ratio 1.1 (0.9-2); Albumin Level 2.7 gm/dl (3.4-5.0); BUN Creatinine Ratio 14.1 (10-20); Bilirubin,Total 1.8 mg/dl (0.2-1.0); Calcium 8.3 mg/dl (8.6-10.3); Creatinine Clr Calc Pharmacy 65.7 ml/min; Est GFR (African American) 59.7 ml/min; Est GFR (Non-African American) 51.5 ml/min; Globulin 2.4 gm/dl (2.5-4.0); Potassium 3.4 mmol/L (3.5-5.1); Total Protein 5.1 gm/dl (6.0-8.3)
[2023-04-28 03:56] LABS: Polychromasia 1+
[2023-04-28] MEDS: LEVOTHYROXINE SODIUM 150 MCG TABLET PO SCH (06:24)
[2023-04-28] MEDS ORDERED: LEVOTHYROXINE SODIUM 25 MCG TABLET PO SCH (09:00)
--- NOTE | 2023-04-28 09:02 | Hospitalist Progress Note ---
Date of Service April 28, 2023 Assessment & Plan (1) Abdominal ascites: Plan: 42 year old female w/ complex past history for cirrhosis admitted for possible GI bleeding and ascites. Abdominal Ascites/Possible GI bleeding: -Patient with history of G[place]E cirrhosis, weekly paracentesis, which patient states has not been adequate as of late. -Ammonia 116, higher than last admission. -CT head negative. -Consulted GI for recommendations regarding ascites, possible paracentesis. -This is patient's second admission in the past month, would greatly benefit from liver transplant. -Continue lactulose and rifaximin, transition to bolus pantoprazole at this point - MELD score calculated on 04/28 to be 17 with a 6% 3-month mortality Anemia: -Hgb 7.9 on admission, has been slowly coming down over past month, previously 11 at the beginning of March. -Fecal occult positive in the ED. -History of varices however no margoth blood in vomit per patient. - continue pantoprazole -Type and screen ordered, will trend Hgb with daily CBC. Hx of splenic vein thrombosis: -Patient with past history of splenic vein thrombosis, on Lovenox daily. -Given potential for GI bleed with declining hemoglobin will pause Lovenox and place on SCD. May restart Lovenox after therapeutic paracentesis which is likely be performed on 04/29 JOANNA: CKD2 -Creatinine 1.25 on admission. -Baseline 0.65-1.0. -May be secondary to anemia and fluid depletion from ascites -Will trend with AM CMP. Hypothyroidism: -Continue home levothyroxine. T2DM: -A1c of 4.6 on 03/31. -Can add glycemic control if necessary. CHIVO: -CPAP nightly. F/E/N/GI: Low sodium diet. DVT Prophlyaxis: SCDs Code status: Full (2) JOANNA (acute kidney injury): (3) Splenic vein thrombosis: (4) Hypothyroidism: (5) Cirrhosis: (6) Sleep apnea: (7) Esophageal varices: (8) Polypharmacy: (9) Neurogenic bladder: (10) Acute GI bleeding: (11) Anxiety: Admission and Anticipated Discharge Date Admission Date: April 27, 2023 Subjective pt is with slow mentation but is able to speak and make sense. Pt with ascites, but non tender but examines like recurrent ascites Physical Exam Physical Exam: pt is awake and alert, abdomen is with dullness and fluid wave Results & Data Results & Data Vital Signs (Past 12 Hours) Vital Signs Temp Pulse Pulse Resp BP Pulse Ox Pulse Ox 04/28/23 06:00 83 04/28/23 05:33 87 18 127/70 100 04/28/23 05:33 100 04/28/23 02:50 97.9 F 81 17 111/68 96 04/28/23 00:00 97.7 F 83 17 111/67 99 O2 Del Method O2 Del Method 04/28/23 06:00 04/28/23 05:33 Room Air 04/28/23 05:33 Room Air 04/28/23 02:50 Room Air 04/28/23 00:00 Room Air Laboratory Results normal CBC normal PRP reviewed INR PG Care Time/CCT Total # of Minutes Spent Total Time Spent with Patient: Total time spent is greater than 50% in coordination of care (as documented) at patient's floor/unit and/or counseling patient: Coding Level of Care Code 00003 SUB INP/OBS CARE 3/50MIN Diagnoses Abdominal ascites R18.8 JOANNA (acute kidney injury) N17.9 Splenic vein thrombosis I82.890 Hypothyroidism E03.9 Cirrhosis K74.60 Sleep apnea G47.30 Esophageal varices I85.00 Polypharmacy Z79.899 Neurogenic bladder N31.9 Acute GI bleeding K92.2 Anxiety F41.9
[2023-04-28] MEDS: BUMETANIDE 1 MG TAB PO SCH ×2 (09:29→17:44)
[2023-04-28] MEDS: CHOLECALCIFEROL 5,000 UNITS 125 MCG TAB PO SCH (09:30)
[2023-04-28] MEDS: buPROPion XL 300 MG TABCR PO SCH (09:30)
[2023-04-28] MEDS: MAGNESIUM OXIDE 400 MG TAB PO SCH ×2 (09:31→20:58)
[2023-04-28] MEDS: METOPROLOL SUCC 25MG EXT REL TAB PO SCH (09:32)
[2023-04-28] MEDS: rifAXIMin 550 MG TABLET PO SCH ×2 (09:32→20:58)
[2023-04-28] MEDS: SPIRONOLACTONE 100 MG TAB PO SCH ×2 (09:33→17:44)
[2023-04-28] MEDS: oxyCODONE HCL IR 5 MG TAB (IMMEDIATE RELEASE) PO PRN ×2 (09:33→17:42)
[2023-04-28] MEDS: VENLAFAXINE HCL 37.5 MG TAB PO SCH (09:33)
[2023-04-28] MEDS: LACTULOSE SYRUP 20 GM/30 ML UDC PO SCH ×3 (10:36→20:58)
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
[2023-04-28] MEDS: PANTOprazole 40 MG in SYRINGE 0 ML IV SCH (20:58)
[2023-04-29] MEDS: oxyCODONE HCL IR 5 MG TAB (IMMEDIATE RELEASE) PO PRN ×2 (01:49→08:13)
[2023-04-29] MEDS: LEVOTHYROXINE SODIUM 150 MCG TABLET PO SCH (05:38)
[2023-04-29 07:47] LABS: Basophils # (auto) 0.09 K/uL (0.00-0.20); Basophils % (auto) 1.3 %; Eosinophils # (auto) 0.48 K/uL (0.00-0.50); Eosinophils % (auto) 6.8 %; Hematocrit (blood only) 24.6 % (37.0-47.0); Hemoglobin 7.9 g/dl (12.0-16.0); Immature Granulocytes # (auto) 0.02 K/uL (0.01-0.20); Immature Granulocytes % (auto) 0.3 %; Lymphocytes % (auto) 21.3 %; Mean Corpuscular Hemoglobin 28.6 pg (25.0-34.0); Mean Corpuscular Hgb Conc 32.1 g/dL (32.0-36.0); Mean Corpuscular Volume 89.1 fL (80.0-100.0); Mean Platelet Volume 9.1 fL (9.4-12.4); Monocytes # (auto) 0.84 K/uL (0.11-0.59); Monocytes % (auto) 11.9 %; Neutrophils # (auto) 4.11 K/uL (1.40-6.50); Neutrophils % (auto) 58.4 %; Platelet Count 107 K/uL (130-400); RDW Coefficient of Variation 19.6 % (11.5-14.5); RDW Standard Deviation 64.1 fL (36.4-46.3); Red Blood Count 2.76 M/uL (4.20-5.40); White Blood Count 7.04 K/ul (4.8-10.8)
[2023-04-29] MEDS: LACTULOSE SYRUP 20 GM/30 ML UDC PO SCH ×3 (08:02→21:01)
[2023-04-29] MEDS: PANTOprazole 40 MG in SYRINGE 0 ML IV SCH ×2 (08:02→21:12)
[2023-04-29] MEDS: CHOLECALCIFEROL 5,000 UNITS 125 MCG TAB PO SCH (08:03)
[2023-04-29] MEDS: buPROPion XL 300 MG TABCR PO SCH (08:03)
[2023-04-29 08:04] LABS: Albumin Level 2.8 gm/dl (3.4-5.0); BUN Creatinine Ratio 14.8 (10-20); Calcium 7.9 mg/dl (8.6-10.3); Creatinine Clr Calc Pharmacy 65.9 ml/min; Est GFR (African American) 59.7 ml/min; Est GFR (Non-African American) 51.5 ml/min; Globulin 2.8 gm/dl (2.5-4.0); Potassium 3.8 mmol/L (3.5-5.1); Total Protein 5.6 gm/dl (6.0-8.3)
[2023-04-29] MEDS: METOPROLOL SUCC 25MG EXT REL TAB PO SCH (08:04)
[2023-04-29] MEDS: rifAXIMin 550 MG TABLET PO SCH ×2 (08:04→21:12)
[2023-04-29] MEDS: MAGNESIUM OXIDE 400 MG TAB PO SCH ×2 (08:05→21:12)
[2023-04-29] MEDS: SPIRONOLACTONE 100 MG TAB PO SCH ×2 (08:05→16:32)
[2023-04-29] MEDS: VENLAFAXINE HCL 37.5 MG TAB PO SCH (08:05)
[2023-04-29] MEDS: BUMETANIDE 1 MG TAB PO SCH ×2 (08:06→16:32)
[2023-04-29 08:09] LABS: RBC Morphology Unremarkable
[2023-04-29] MEDS ORDERED: LACTULOSE SYRUP 20 GM/30 ML UDC PO SCH (09:00)
--- NOTE | 2023-04-29 11:26 | Gastroenterology Progress Note ---
Date of Service April 29, 2023 Assessment & Plan (1) Cirrhosis: (2) Acute encephalopathy: (3) Ascites: Plan GILLESPIE cirrhosis with ascites and HE, MELD-Na is 17 recs: --obtain paracentesis tomorrow but would be careful upon removing too much fluid given her JOANNA, send for diagnostic studies to r/o SBP given her confusion --rifaximin 550 mg BID, lactulose 20 mg TID titrate to 3 loose bowel movements daily, zinc sulfate daily --continue beta chacha for her varices/portal HTN, <2 g Na diet daily --consider TIPS evaluation in the near future. This was discussed with Dr. Calvert who follows her for hepatology outpt. -Avoid substances harmful to the liver such as alcohol. Avoid raw oysters due to vibrio concerns. Avoid NSAIDs. Ok to use Tylenol with a total daily limit of 2000 mg daily divided between q 6 hr doses if needed. -Would strongly emphasize the importance of making a plan to eliminate her chronic narcotic use as this seems to be exacerbating her episodes of confusion/HE contributing to her frequent readmissions. -Compliance with medications should be repeatedly emphasized as patient did seem to do better when her medications were administered to her at her acute rehab facility vs when she is responsible for administering her own medications. -Continue to trend MELD labs. -If patient acutely decompensates, would transfer to [facility] at that time Thank you for allowing me to participate in the care of this patient Admission and Anticipated Discharge Date Admission Date: April 27, 2023 Supervising Physician Co-Signing Physician Notes I saw the patient and agree with the findings as documented by FRANK Donnelly Subjective Patient was evaluated while consuming her breakfast this morning. She reports she is feeling full in her abdomen awaiting her next paracentesis tomorrow. Labs stable. Review of Systems Constitutional: no fever and no chills Gastrointestinal: as per Subjective / HPI Physical Exam Constitutional: no acute distress Respiratory: normal respiratory effort, lungs clear to auscultation Cardiovascular: Rate/Rhythm: regular rate and regular rhythm Gastrointestinal (Abdomen): Inspection/Auscultation: normal bowel sounds Percussion/Palpation: + ascites; abdomen nontender, no guarding and abdomen not rigid Psychiatric: A+Ox3, euthymic affect Results & Data Results & Data Vital Signs (Past 12 Hours) Vital Signs Temp Pulse Resp BP Pulse Ox O2 Del Method 09/05/23 08:08 36.8 C 90 16 131/84 97 Room Air 04/29/23 04:27 36.9 C 90 18 129/80 98 Room Air Diagnostic Findings Laboratory Results WBC 7.04 K/ul (4.8-10.8) 04/29/23 07:25 RBC 2.76 M/uL (4.20-5.40) L 04/29/23 07:25 Hgb 7.9 g/dl (12.0-16.0) L 04/29/23 07:25 Hct 24.6 % (37.0-47.0) L 04/29/23 07:25 MCV 89.1 fL (80.0-100.0) 04/29/23 07:25 MCH 28.6 pg (25.0-34.0) 04/29/23 07:25 MCHC 32.1 g/dL (32.0-36.0) 04/29/23 07:25 RDW Std Deviation 64.1 fL (36.4-46.3) H 04/29/23 07:25 RDW Coeff of Henna 19.6 % (11.5-14.5) H 04/29/23 07:25 Plt Count 107 K/uL (130-400) L 04/29/23 07:25 MPV 9.1 fL (9.4-12.4) L 04/29/23 07:25 Immature Gran % (Auto) 0.3 % 04/29/23 07:25 Neut % (Auto) 58.4 % 04/29/23 07:25 Lymph % (Auto) 21.3 % 04/29/23 07:25 Tillman % (Auto) 11.9 % 04/29/23 07:25 Eos % (Auto) 6.8 % 04/29/23 07:25 Baso % (Auto) 1.3 % 04/29/23 07:25 Neut # (Auto) 4.11 K/uL (1.40-6.50) 04/29/23 07:25 Lymph # (Auto) 1.50 K/uL (1.20-3.40) 04/29/23 07:25 Tillman # (Auto) 0.84 K/uL (0.11-0.59) H 04/29/23 07:25 Eos # (Auto) 0.48 K/uL (0.00-0.50) 04/29/23 07:25 Baso # (Auto) 0.09 K/uL (0.00-0.20) 04/29/23 07:25 Immature Gran # (Auto) 0.02 K/uL (0.01-0.20) 04/29/23 07:25 RBC Morphology Unremarkable 04/29/23 07:25 Polychromasia 1+ 04/28/23 02:33 Hypochromasia Present 04/27/23 16:04 Tear Drop Cells 1+ 04/27/23 16:04 PT 15.1 Seconds (9.0-12.0) H 04/27/23 16:04 INR 1.4 (0.9-1.1) H 04/27/23 16:04 APTT 30.3 Seconds (21.0-31.0) 04/27/23 16:04 PTT Ratio 1.1 04/27/23 16:04 Sodium 133 mmol/L (136-145) L 04/29/23 07:25 Potassium 3.8 mmol/L (3.5-5.1) 04/29/23 07:25 Chloride 100 mmol/L (98-107) 04/29/23 07:25 Carbon Dioxide 27 mmol/L (21-32) 04/29/23 07:25 Anion Gap 6 (3-11) 04/29/23 07:25 BUN 19 mg/dl (6-23) 04/29/23 07:25 Creatinine 1.28 mg/dl (0.6-1.2) H 04/29/23 07:25 Est Cr Clr Drug Dosing 65.9 ml/min 04/29/23 07:25 Est GFR ( Amer) 59.7 ml/min 04/29/23 07:25 Est GFR (Non-Af Amer) 51.5 ml/min 04/29/23 07:25 BUN/Creatinine Ratio 14.8 (10-20) 04/29/23 07:25 Glucose 210 mg/dl (70-99(Fasting)) H 04/29/23 07:25 Calcium 7.9 mg/dl (8.6-10.3) L 04/29/23 07:25 Magnesium 2.0 mg/dl (1.7-2.4) 04/27/23 16:04 Total Bilirubin 2.0 mg/dl (0.2-1.0) H 04/29/23 07:25 AST 47 U/L (13-39) H 04/29/23 07:25 ALT 26 U/L (7-52) 04/29/23 07:25 Alkaline Phosphatase 71 U/L (34-104) 04/29/23 07:25 Ammonia 96.0 umol/L (18-72) H 04/29/23 07:25 Total Protein 5.6 gm/dl (6.0-8.3) L 04/29/23 07:25 Albumin 2.8 gm/dl (3.4-5.0) L 04/29/23 07:25 Globulin 2.8 gm/dl (2.5-4.0) 04/29/23 07:25 Albumin/Globulin Ratio 1.0 (0.9-2) 04/29/23 07:25 Lipase 37 U/L (11-82) 04/27/23 16:04 SARS-CoV-2 (PCR) NEGATIVE (Negative) 04/27/23 18:48 Influenza Type A (PCR) Negative (Neg) 04/27/23 18:48 Influenza Type B (PCR) Negative (Neg) 04/27/23 18:48 RSV (RT-PCR) Negative (Neg) 04/27/23 18:48 Blood Type A Positive 04/28/23 02:33 Antibody Screen NEGATIVE 04/28/23 02:[address] 04/27/23 18:40 Exam(s): CT HEAD Without Contrast EXAM: CT Head Without Intravenous Contrast CLINICAL HISTORY: Reason for exam: weakness confusion. TECHNIQUE: Axial computed tomography images of the head/brain without intravenous contrast. CTDI is 36.62 mGy and DLP is 547.75 mGy-cm. Automated exposure control was utilized for the study. A dose lowering technique was utilized adhering to the principles of ALARA. COMPARISON: No relevant prior studies available. FINDINGS: No acute intracranial hemorrhage. No midline shift or mass effect. The territorial coelho-white matter differentiation is maintained throughout. The ventricles and sulci are commensurate with age. The visualized orbits appear grossly unremarkable. The calvarium is intact. The visualized paranasal sinuses and mastoid air cells are grossly clear. IMPRESSION: No acute intracranial hemorrhage, midline shift, or mass effect. Electronically signed by: Lito Urias MD 04/27/23 21:01 PM PG Care Time/CCT Total # of Minutes Spent Total Time Spent with Patient: Total time spent is greater than 50% in coordination of care (as documented) at patient's floor/unit and/or counseling patient: Coding Level of Care Code 37332 SUB INP/OBS CARE 3/50MIN Diagnoses Cirrhosis K74.60 Acute encephalopathy G93.40 Ascites R18.8
--- NOTE | 2023-04-29 13:29 | Hospitalist Progress Note ---
Date of Service April 29, 2023 Assessment & Plan (1) Abdominal ascites: Plan: 42 year old female w/ complex past history for cirrhosis admitted for possible GI bleeding and ascites. Abdominal Ascites/Possible GI bleeding: -Patient with history of GILLESPIE cirrhosis, weekly paracentesis, 04/30/23 will be next -Ammonia improved with reinforced lactulose -CT head negative. -Consulted GI for recommendations endorses paracentesis. -This is patient's second admission in the past month, would greatly benefit from liver transplant. -Continue lactulose and rifaximin, transition to bolus pantoprazole at this point - MELD score calculated on 04/28 to be 17 with a 6% 3-month mortality Anemia: -Hgb 7.9 on admission, stable at 7.9 on repeat -Fecal occult positive in the ED. -History of varices however no margoth blood in vomit per patient. - continue pantoprazole -GI medicine followed Hx of splenic vein thrombosis: -Patient with past history of splenic vein thrombosis, on Lovenox daily. -Given potential for GI bleed with declining hemoglobin will pause Lovenox and place on SCD. May restart Lovenox after therapeutic paracentesis which is likely be performed on 04/30 JOANNA: CKD2 -Creatinine 1.25 on admission. -Baseline 0.65-1.0. -May be secondary to anemia and fluid depletion from ascites Hypothyroidism: -Continue home levothyroxine. T2DM: -A1c of 4.6 on 03/31. -Can add glycemic control if necessary. CHIVO: -CPAP nightly. F/E/N/GI: Low sodium diet. DVT Prophlyaxis: SCDs Code status: Full (2) Splenic vein thrombosis: (3) Sleep apnea: Admission and Anticipated Discharge Date Admission Date: April 27, 2023 Subjective pt is improving although a modest change in her ammonia, was seen by GI medicine and endorsed repeat paracentesis Physical Exam Physical Exam: pt is awake and alert, abdomen is with dullness and fluid wave claims is leaking at abdominal site, bandage in place, will suture if needed Results & Data Results & Data Vital Signs (Past 12 Hours) Vital Signs Temp Pulse Pulse Resp BP Pulse Ox O2 Del Method 04/29/23 08:00 96 H 04/29/23 12:02 98.6 F 91 H 18 125/76 96 Room Air 09/05/23 08:08 98.2 F 90 16 131/84 97 Room Air 04/29/23 04:27 98.4 F 90 18 129/80 98 Room Air Laboratory Results reviewed cbc reviewed chemistry PG Care Time/CCT Total # of Minutes Spent Total Time Spent with Patient: Total time spent is greater than 50% in coordination of care (as documented) at patient's floor/unit and/or counseling patient: Coding Level of Care Code 88278 SUB INP/OBS CARE 3/50MIN Diagnoses Abdominal ascites R18.8 Splenic vein thrombosis I82.890 Sleep apnea G47.30
[2023-04-29] MEDS: rOPINIRole HCL 2 MG TABLET PO PRN (21:57)
[2023-04-30] MEDS: ALPRAZolam 0.5 MG TABLET PO PRN (01:12)
[2023-04-30] MEDS: LEVOTHYROXINE SODIUM 150 MCG TABLET PO SCH (06:41)
[2023-04-30 07:06] LABS: Basophils # (auto) 0.07 K/uL (0.00-0.20); Basophils % (auto) 1.2 %; Eosinophils % (auto) 8.3 %; Hematocrit (blood only) 23.8 % (37.0-47.0); Hemoglobin 7.8 g/dl (12.0-16.0); Immature Granulocytes # (auto) 0.02 K/uL (0.01-0.20); Immature Granulocytes % (auto) 0.3 %; Lymphocytes # (auto) 1.35 K/uL (1.20-3.40); Lymphocytes % (auto) 22.3 %; Mean Corpuscular Hemoglobin 29.3 pg (25.0-34.0); Mean Corpuscular Hgb Conc 32.8 g/dL (32.0-36.0); Mean Corpuscular Volume 89.5 fL (80.0-100.0); Mean Platelet Volume 9.7 fL (9.4-12.4); Monocytes # (auto) 0.85 K/uL (0.11-0.59); Neutrophils # (auto) 3.26 K/uL (1.40-6.50); Neutrophils % (auto) 53.9 %; Platelet Count 86 K/uL (130-400); RDW Coefficient of Variation 18.8 % (11.5-14.5); RDW Standard Deviation 62.4 fL (36.4-46.3); Red Blood Count 2.66 M/uL (4.20-5.40); White Blood Count 6.05 K/ul (4.8-10.8)
[2023-04-30 07:26] LABS: Polychromasia 1+
[2023-04-30 07:33] LABS: Albumin Level 2.7 gm/dl (3.4-5.0); Bilirubin,Total 1.8 mg/dl (0.2-1.0); Calcium 7.9 mg/dl (8.6-10.3); Creatinine Clr Calc Pharmacy 94.7 ml/min; Est GFR (African American) 92.7 ml/min; Est GFR (Non-African American) 79.9 ml/min; Globulin 2.8 gm/dl (2.5-4.0); Potassium 3.5 mmol/L (3.5-5.1); Total Protein 5.5 gm/dl (6.0-8.3)
[2023-04-30] MEDS: oxyCODONE HCL IR 5 MG TAB (IMMEDIATE RELEASE) PO PRN ×3 (07:51→23:37)
[2023-04-30] MEDS: CHOLECALCIFEROL 5,000 UNITS 125 MCG TAB PO SCH (10:00)
[2023-04-30] MEDS: BUMETANIDE 1 MG TAB PO SCH ×2 (10:00→16:52)
[2023-04-30] MEDS: buPROPion XL 300 MG TABCR PO SCH (10:01)
[2023-04-30] MEDS: LACTULOSE SYRUP 20 GM/30 ML UDC PO SCH ×3 (10:01→20:01)
[2023-04-30] MEDS: METOPROLOL SUCC 25MG EXT REL TAB PO SCH (10:01)
[2023-04-30] MEDS: rifAXIMin 550 MG TABLET PO SCH ×2 (10:03→20:02)
[2023-04-30] MEDS: PANTOprazole 40 MG in SYRINGE 0 ML IV SCH ×2 (10:03→20:04)
[2023-04-30] MEDS: SPIRONOLACTONE 100 MG TAB PO SCH ×2 (10:04→16:52)
[2023-04-30] MEDS: VENLAFAXINE HCL 37.5 MG TAB PO SCH (10:04)
[2023-04-30] MEDS ORDERED: LORATADINE 10 MG TAB PO ONE (11:15)
[2023-04-30] MEDS ORDERED: FUROSEMIDE 40 MG/4 ML VIAL IV ONE (11:30)
[2023-04-30] MEDS: ALBUMIN 25% 25 GM/100 ML VIAL IV SCH ×2 (11:43→13:42)
[2023-04-30] MEDS: MAGNESIUM OXIDE 400 MG TAB PO SCH ×2 (12:08→20:36)
--- NOTE | 2023-04-30 12:37 | Ultrasound Report ---
Ultrasound-guided paracentesis INDICATION: Ascites PROCEDURE: Procedure and risks were explained. Informed consent was obtained. A final time out was co mpleted. The right lower quadrant was prepped and draped in sterile fashion. 1% buffered lidocaine wa s utilized for skin anesthesia. Utilizing ultrasound guidance, a 5 Malay safety centesis catheter was advanced into the right lower quadrant pocket of ascites. Ultrasound images were obtained. A total of 5.7 L of yellow-colored fluid was removed, with 1 L sent to lab for analysis. The catheter was removed and Band-Aid applied. The p atient tolerated the procedure well. Vital signs will be monitored postprocedure. IMPRESSION: Ultrasound-guided paracentesis as above. Performed, dictated, and signed by Marvin Greene PA-C; to be co-signed by Dr. Lorenzo Ocampo. Electronically signed by: Lorenzo Ocampo M.D. 04/30/2023 12:42 PM
[2023-04-30] MEDS ORDERED: LIDOCAINE 1% LOCAL 20 ML VIAL INFIL ONE (17:14)
--- NOTE | 2023-04-30 18:30 | Hospitalist Progress Note ---
Date of Service April 30, 2023 Assessment & Plan (1) Abdominal ascites: Plan: 42 year old female w/ complex past history for cirrhosis admitted for possible GI bleeding and ascites. Abdominal Ascites/Possible GI bleeding: -Patient with history of GILLESPIE cirrhosis, weekly paracentesis, 04/30/23 will be next -Ammonia improved with reinforced lactulose -CT head negative. -Consulted GI for recommendations endorses paracentesis 4.7 L obtained 50 g of albumin given Lasix given after that -This is patient's second admission in the past month, would greatly benefit from liver transplant. -Continue lactulose and rifaximin, transition to bolus pantoprazole at this point - MELD score calculated on 04/28 to be 17 with a 6% 3-month mortality Anemia: -Hgb 7.9 on admission, stable at 7.9 on repeat -Fecal occult positive in the ED. -History of varices however no margoth blood in vomit per patient. - continue pantoprazole -GI medicine followed Hx of splenic vein thrombosis: -Patient with past history of splenic vein thrombosis, on Lovenox daily. -Given potential for GI bleed with declining hemoglobin will pause Lovenox and place on SCD. Consideration to restart Lovenox 05/01/2023 JOANNA: CKD2 -Creatinine 1.25 on admission. -Baseline 0.65-1.0. -May be secondary to anemia and fluid depletion from ascites Hypothyroidism: -Continue home levothyroxine. T2DM: -A1c of 4.6 on 03/31. -Can add glycemic control if necessary. CHIVO: -CPAP nightly. F/E/N/GI: Low sodium diet. DVT Prophlyaxis: SCDs Code status: Full (2) Splenic vein thrombosis: (3) Sleep apnea: Admission and Anticipated Discharge Date Admission Date: April 27, 2023 Subjective Patient had moderate volume paracentesis of almost 5 L today. She given albumin after the procedure. She given additional Lasix due to peripheral edema and her feeling uncomfortable due to her leg swelling as her legs were "almost gone apart". Persistent leaking from left-sided previous paracentesis site was closed under sterile technique with 4-0 Prolene in a [id number]-wn-gojrn stitch non- epinephrine lidocaine was used to anesthetize the area prior to procedure and verbal consent was given to me by the patient. Physical Exam Physical Exam: pt is awake and alert, abdomen is with dullness and fluid wave claims is leaking at abdominal site, there is a small area in the left side that is leaking clear fluid. This area was cleaned and prepped with ChloraPrep. It was anesthetized with 2 mL of lidocaine plain 1% there is a figure it states stitch placed of 4-0 nylon good achievement of reduction of ascitic fluid escaping was accomplished there was some mild bleeding from the puncture wounds of the nylon. A folded 4 x 4 was placed and we will see if this accomplishes stopping the paracentesis site leak Results & Data Results & Data Vital Signs (Past 12 Hours) Vital Signs Temp Pulse Pulse Resp BP Pulse Ox O2 Del Method 04/30/23 16:00 97.7 F 97 H 18 128/66 98 Room Air 04/30/23 16:27 92 H 04/30/23 16:25 92 H 04/30/23 12:28 97.5 F L 88 16 130/73 04/30/23 11:52 86 128/83 04/30/23 11:00 82 109/69 04/30/23 08:03 88 PG Care Time/CCT Total # of Minutes Spent Total Time Spent with Patient: Total time spent is greater than 50% in coordination of care (as documented) at patient's floor/unit and/or counseling patient: Coding Level of Care Code 26629 SUB INP/OBS CARE 3/50MIN Diagnoses Abdominal ascites R18.8 Splenic vein thrombosis I82.890 Sleep apnea G47.30 Comment Includes figure 8 stitch to stave off paracentesis site leaking
[2023-04-30] MEDS: ACETIC AC/HYDROCORTISONE OTIC 10ML BTL OT SCH (20:01)
[2023-04-30] MEDS: rOPINIRole HCL 2 MG TABLET PO PRN (23:37)
[2023-05-01] MEDS: LEVOTHYROXINE SODIUM 150 MCG TABLET PO SCH (05:37)
--- NOTE | 2023-05-01 07:24 | Hospitalist Progress Note ---
Date of Service May 01, 2023 Assessment & Plan (1) Abdominal ascites: Plan: 42 year old female w/ complex past history for cirrhosis admitted for possible GI bleeding and ascites. Abdominal Ascites/Possible GI bleeding: -Patient with history of GILLESPIE cirrhosis, weekly paracentesis, 04/30/23 will be next -Ammonia improved with reinforced lactulose -CT head negative. -Consulted GI for recommendations endorses paracentesis 4.7 L obtained 50 g of albumin given Lasix given after that significant LE edema given additional lasix 05/01/23 -This is patient's second admission in the past month, would greatly benefit from liver transplant, follows locally with Dr. Enrike whitaker GI -Continue lactulose and rifaximin, transition to bolus pantoprazole at this point - MELD score calculated on 04/28 to be 17 with a 6% 3-month mortality Anemia: -Hgb 7.9 on admission, stable at 7.9 on repeat -Fecal occult positive in the ED. -History of varices however no margoth blood in vomit per patient. - continue pantoprazole Hx of splenic vein thrombosis: -Patient with past history of splenic vein thrombosis, on Lovenox daily. -Given potential for GI bleed with declining hemoglobin will pause Lovenox and place on SCD. restart Lovenox 05/01/2023 JOANNA: CKD2, joanna resolved -Creatinine 1.25 on admission. -Baseline 0.65-1.0. Hypothyroidism: -Continue home levothyroxine. T2DM: -A1c of 4.6 on 03/31. -Can add glycemic control if necessary. CHIVO: -CPAP nightly. F/E/N/GI: Low sodium diet. DVT Prophlyaxis: SCDs Code status: Full Persistent leaking from left-sided previous paracentesis site was closed under sterile technique with 4-0 Prolene in a [id number] stitch non-epinephrine lidocaine was used to anesthetize the area prior to procedure and verbal consent was given to me by the patient. suture out next paracentesis possible dc 05/02/23 (2) Splenic vein thrombosis: (3) Sleep apnea: Admission and Anticipated Discharge Date Admission Date: April 27, 2023 Subjective Patient had moderate volume paracentesis of almost 5 L 04/30/23. She given albumin after the procedure. She given additional Lasix, peripheral edema and her feeling uncomfortable due to her leg swelling Physical Exam Physical Exam: pt is awake and alert, abdomen is with dullness and fluid wave claims is leaking at abdominal site, there is a small area in the left side that is leaking clear fluid. This area was cleaned and prepped with ChloraPrep. It was anesthetized with 2 mL of lidocaine plain 1% there is a figure it states stitch placed of 4-0 nylon good achievement of reduction of ascitic fluid escaping was accomplished there was some mild bleeding from the puncture wounds of the nylon. A folded 4 x 4 was placed and we will see if this accomplishes stopping the paracentesis site leak Results & Data Results & Data Vital Signs (Past 12 Hours) Vital Signs Temp Pulse Pulse Resp BP Pulse Ox O2 Del Method 05/01/23 05:00 05/01/23 04:24 98.2 F 80 18 121/79 98 Room Air 05/01/23 01:02 92 H 04/30/23 23:46 98.1 F 89 18 115/74 98 Room Air 04/30/23 19:34 98.1 F 65 18 129/71 97 Room Air O2 Del Method 05/01/23 05:00 Room Air 05/01/23 04:24 05/01/23 01:02 04/30/23 23:46 04/30/23 19:34 Laboratory Results reviewed chemistry reviewed lft's PG Care Time/CCT Total # of Minutes Spent Total Time Spent with Patient: Total time spent is greater than 50% in coordination of care (as documented) at patient's floor/unit and/or counseling patient: Coding Level of Care Code 56089 SUB INP/OBS CARE 2/35MIN Diagnoses Abdominal ascites R18.8 Splenic vein thrombosis I82.890 Sleep apnea G47.30
[2023-05-01] MEDS: BUMETANIDE 1 MG TAB PO SCH ×2 (08:28→16:42)
[2023-05-01] MEDS: rifAXIMin 550 MG TABLET PO SCH ×2 (08:28→20:33)
[2023-05-01] MEDS: LACTULOSE SYRUP 20 GM/30 ML UDC PO SCH ×3 (08:29→20:32)
[2023-05-01] MEDS: LORATADINE 10 MG TAB PO SCH (08:29)
[2023-05-01] MEDS: buPROPion XL 300 MG TABCR PO SCH (08:29)
[2023-05-01] MEDS: CHOLECALCIFEROL 5,000 UNITS 125 MCG TAB PO SCH (08:29)
[2023-05-01] MEDS: METOPROLOL SUCC 25MG EXT REL TAB PO SCH (08:29)
[2023-05-01] MEDS: PANTOprazole 40 MG in SYRINGE 0 ML IV SCH ×2 (08:35→20:33)
[2023-05-01] MEDS: ACETIC AC/HYDROCORTISONE OTIC 10ML BTL OT SCH ×2 (08:36→20:42)
[2023-05-01] MEDS: VENLAFAXINE HCL 37.5 MG TAB PO SCH (08:36)
[2023-05-01 09:56] LABS: Albumin Globulin Ratio 1.1 (0.9-2); Albumin Level 3.2 gm/dl (3.4-5.0); BUN Creatinine Ratio 18.5 (10-20); Bilirubin,Total 1.8 mg/dl (0.2-1.0); Calcium 8.4 mg/dl (8.6-10.3); Creatinine Clr Calc Pharmacy 91.6 ml/min; Est GFR (Non-African American) 76.8 ml/min; Globulin 2.8 gm/dl (2.5-4.0); Potassium 3.6 mmol/L (3.5-5.1)
[2023-05-01] MEDS: MAGNESIUM OXIDE 400 MG TAB PO SCH ×2 (09:59→20:28)
[2023-05-01] MEDS: SPIRONOLACTONE 100 MG TAB PO SCH ×2 (09:59→16:42)
[2023-05-01] MEDS: oxyCODONE HCL IR 5 MG TAB (IMMEDIATE RELEASE) PO PRN ×2 (12:25→20:40)
[2023-05-01] MEDS ORDERED: BUMETANIDE 1 MG in SYRINGE 0 ML IV ONE (13:31)
[2023-05-01] MEDS: cephALEXin 500 MG CAP PO SCH ×3 (13:41→20:33)
[2023-05-01] MEDS: ALPRAZolam 0.5 MG TABLET PO PRN (20:28)
[2023-05-01] MEDS: rOPINIRole HCL 2 MG TABLET PO PRN (20:32)
[2023-05-02] MEDS: LEVOTHYROXINE SODIUM 150 MCG TABLET PO SCH (06:13)
[2023-05-02] MEDS: oxyCODONE HCL IR 5 MG TAB (IMMEDIATE RELEASE) PO PRN ×2 (06:17→13:04)
[2023-05-02] MEDS: LORATADINE 10 MG TAB PO SCH (08:55)
[2023-05-02] MEDS: buPROPion XL 300 MG TABCR PO SCH (08:55)
[2023-05-02] MEDS: ACETIC AC/HYDROCORTISONE OTIC 10ML BTL OT SCH (08:55)
[2023-05-02] MEDS: PANTOprazole 40 MG in SYRINGE 0 ML IV SCH (08:55)
[2023-05-02] MEDS: BUMETANIDE 1 MG TAB PO SCH ×2 (08:55→16:46)
[2023-05-02] MEDS: LACTULOSE SYRUP 20 GM/30 ML UDC PO SCH ×2 (08:55→13:00)
[2023-05-02] MEDS: rifAXIMin 550 MG TABLET PO SCH (08:56)
[2023-05-02] MEDS: MAGNESIUM OXIDE 400 MG TAB PO SCH (08:56)
[2023-05-02] MEDS: CHOLECALCIFEROL 5,000 UNITS 125 MCG TAB PO SCH (08:56)
[2023-05-02] MEDS: cephALEXin 500 MG CAP PO SCH ×3 (08:56→16:46)
[2023-05-02] MEDS: VENLAFAXINE HCL 37.5 MG TAB PO SCH (08:56)
[2023-05-02] MEDS: METOPROLOL SUCC 25MG EXT REL TAB PO SCH (08:57)
[2023-05-02] MEDS: SPIRONOLACTONE 100 MG TAB PO SCH ×2 (08:57→16:46)
--- NOTE | 2023-05-02 12:29 | Discharge Summary ---
Date of Service May 02, 2023 Admission HPI Per Admitting Provider Niesha is a 42 year old female w/ PmHx hepatic encephalopathy, migraine without aura, GERD, portal HTN, GILLESPIE cirrhosis, thrombocytopenia, NAFLD w/ cirrhosis, known esophageal varices and gastric ulcer (per EGD 11/2022 at [facility]) coming into the ED for abdominal distention and worsening weakness/fatigue. Patient relays that she follows with Dr. Hilda Calvert in hepatology outpatient as well as IR here for weekly paracentesis. She usually gets paracentesis draw every Friday and usually has around 7.5L drained every time she goes. She has been in talks with her doctor on getting drainage twice a week however her doctor stated it would not be ideal. She states that her belly reaccumulating fluid is one of the reasons why she came in tonight. Another reason is due to overwhelming fatigue that has been plaguing her. She states she is beyond beat which makes her want to sleep but she doesn't want to just sleep all the time. She has had some chills since first getting paracentesis and this has persisted. She feels some abdominal pain due to the accumulation of the fluid but no change in bowel habits. She has also had some vomiting and relays the vomit is green in appearance without any blood. She has a past history of varices which were too small to be ligated at the time of her EGD. In the ED Hgb 7.9, WBC 5.75, platelet 115, PT 15.1, INR 1.4, Na 133, Creatinine 1.25, T bili 1.7, AST 52, ALT 28, Ammonia 116, COVID/Flu/RSV negative. CT head negative for any acute processes. She was given lactulose and started on pantoprazole bolus and drip. Admission Exam Per Admitting Provider Constitutional: WD/WN, vitals as above Respiratory: normal respiratory effort, lungs clear to auscultation Cardiovascular: Rate/Rhythm: + tachycardic Heart Sounds: normal S1 and normal S2 3+ pitting edema at the bilateral lower extremities going up to the knees. Gastrointestinal (Abdomen): BS+, distended abdomen, area of drainage for last paracentesis with some scar tissue without active drainage. B Psychiatric: Patient slow to speak with difficulty finding short and terminal worker memories at times. Principal Diagnosis Abdominal ascites and fluid overload related to cirrhosis JOANNA on CKD, resolved Discharge Exam general: Awake, conversant Heart: S1, S2/regular rate and rhythm, no murmur rubs or gallops Lungs: Clear to auscultation bilaterally. Normal effort Abdomen: Soft/nontender/nondistended. Extremities: No clubbing/cyanosis. 1+ pitting bilateral edema Behavior: Appropriate, cooperative Discharge Data Allergies Allergy/AdvReac Type Severity Reaction Status Date / Time codeine Allergy Unknown Hives, Verified 04/27/23 22:16 [From Tylenol-Codeine #3] skin redness (Tyenol #3) Consultations 04/27/23 21:09 ED Decision to Admit Stat 04/28/23 02:08 Consult Gastroenterology Routine Ordered Studies 04/27/23 18:40 CT head/brain wo con Stat 04/30/23 08:00 IR paracentesis abd w/img US Routine Hospital Course (1) Abdominal ascites: 42 year old female w/ complex past history for cirrhosis admitted for possible GI bleeding and ascites. Abdominal Ascites/Possible GI bleeding: -Patient with history of GILLESPIE cirrhosis, weekly paracentesis -CT head negative. -Consulted GI for recommendations endorses paracentesis 4.7 L obtained 50 g of albumin given Lasix given after that significant LE edema given additional lasix 05/01/23 -This is patient's second admission in the past month, would greatly benefit from liver transplant, follows locally with Dr. Enrike whitaker GI -Continue lactulose and rifaximin - MELD score calculated on 04/28 to be 17 with a 6% 3-month mortality Ammonia level is high but the patient is clinically not encephalopathic. She is awake, able to hold a conversation. She is walking around in the room in the hallway. Anemia: -Hgb 7.9 on admission, stable at 7.9 on repeat -Fecal occult positive in the ED. -History of varices however no margoth blood in vomit per patient. - continue pantoprazole Hx of splenic vein thrombosis: -Patient with past history of splenic vein thrombosis, on Lovenox daily. -Given potential for GI bleed with declining hemoglobin . Lovenox was paused. restart Lovenox now that hemoglobin stable and no GI bleed Follow-up with coagulation clinic at [facility]. Patient already has an appointment, was referred to by air defense artillery officer JOANNA: CKD2, joanna resolved -Creatinine 1.25 on admission. -Baseline 0.65-1.0. Hypothyroidism: -Continue home levothyroxine. T2DM: -A1c of 4.6 on 03/31. -Can add glycemic control if necessary. CHIVO: -CPAP nightly. F/E/N/GI: Low sodium diet. DVT Prophlyaxis: SCDs Code status: Full Discharge to home (2) Splenic vein thrombosis: (3) Sleep apnea: Total Time Total Time Spent Total Time Spent (In Minutes): 35 Discharge Plan Discharge Items Patient Disposition: Home - Self-Care Reason For Visit: WEAKNESS, ASCITES Discharge Diagnosis: Ascites Activity: Resume your previous activity Non-emergency contact: Primary Care Provider Call non-emergency contact if: you have any medication questions and your symptoms worsen Follow-up/Referrals: Endy Stanley D.O. [Primary Care Provider] - (Pt will call coag clinic when she gets home and [facility] PCP.) Diet: Low Sodium (2gm) Addtl Attending Provider Instructions: Advised to follow-up with PCP in 1 week, GI stand up forklift operator in 1 week, air defense artillery officer in 2 weeks, coagulation clinic at [facility] in 1 week Pending Studies at Discharge: No Stand-Alone Forms: [facility] [place] Medications and DC Order Prescriptions: New cephalexin 500 mg Capsule 500 mg PO BID 6 Days Qty: 12 0RF potassium chloride 20 mEq/15 mL liquid 20 meq PO BID Qty: 473 0RF Continued acetaminophen 500 mg capsule 500 mg PO Q6H PRN (Reason: Pain) docusate sodium 100 mg capsule 100 mg PO DAILY bisacodyl 10 mg suppository 10 mg KS DAILY PRN (Reason: Constipation) hydroxyzine HCl 10 mg tablet 10 mg PO TID PRN (Reason: other) levothyroxine 300 mcg tablet 300 mcg PO DAILY levothyroxine 25 mcg Tablet 0 mcg PO DAILY Rx Instructions: isn't sure, he says he only saw 300 mg on her paper. magnesium oxide 400 mg (241.3 mg magnesium) Tablet 400 mg PO BID Qty: 60 0RF lactulose 20 gram/30 mL solution 20 g PO TID Qty: 1200 0RF polyethylene glycol 3350 [Miralax] 17 gram Powder In Packet 17 g PO BID PRN (Reason: Constipation) Rx Instructions: gIVE AT LUNCH naloxone 0.4 mg/mL Solution 0 mg intranasal DIRECTED PRN (Reason: .OPIOD OD) prochlorperazine maleate 5 mg Tablet 5 mg PO Q6 PRN (Reason: Nausea) ondansetron HCl 4 mg Tablet 8 mg PO Q4 PRN (Reason: Nausea) Rx Instructions: per pt 8 mg sennosides-docusate sodium [Senna-S] 8.6-50 mg Tablet 1 tab-cap PO DAILY PRN (Reason: Constipation) valacyclovir 500 mg Tablet 500 mg PO Q8 PRN (Reason: .BREAKOUTS) famotidine 20 mg Tablet 40 mg PO DAILY ropinirole 2 mg Tablet 4 mg PO HS PRN (Reason: .restless legs) Rx Instructions: per pt she takes 3 tablet administer 1-3 hours before bedtime metoprolol succinate [Toprol XL] 25 mg Tablet Extended Release 24 Hr 12.5 mg PO DAILY oxycodone 5 mg Tablet 15 mg PO Q6H PRN (Reason: Pain) Rx Instructions: MAY REQUEST LOWER DOSE OF LESS POTENT MED. Mouth [place] A[place] 1 spray MUCOUS MEMBRANE QID PRN (Reason: .DRY MOUTH) cholecalciferol (vitamin D3) [Vitamin D3] 125 mcg (5,000 unit) Tablet 125 mcg PO DAILY Xifaxan 550 mg tablet 550 mg PO Q12 Tradjenta 5 mg tablet 5 mg PO DAILY Combivent Respimat 20-100 mcg/actuation Mist 1 puff INHALATION QID PRN (Reason: Other) Rx Instructions: space evenly during waking hours Kristalose Powder 1 dose PO TID Rx Instructions: 30 GRAM PER 1.5 PACKET. Does not take as much if she has more then 3 bms or gets diarrhea. Tums Gas Relief 750mg/80mg 1 tab PO Q6 alprazolam 1 mg tablet 1 mg PO BID PRN (Reason: Anxiety) bupropion HCl 150 mg tablet extended release 24 hr 300 mg PO DAILY Rx Instructions: This dose was from patient spironolactone 25 mg tablet 100 mg PO BID17 30 Days Qty: 120 0RF Rx Instructions: per its now 100 mg bid bumetanide 1 mg tablet 1 mg PO BID Qty: 60 0RF omeprazole 40 mg capsule,delayed release(DR/EC) 40 mg PO BID venlafaxine 37.5 mg tablet 37.5 mg PO DAILY enoxaparin 100 mg/mL syringe 0 mg subcut DAILY promethazine 25 mg tablet 25 mg PO DIRECTED Discontinued potassium chloride 20 mEq tablet extended release 20 meq PO BID Hold Instructions: Resume on 03/08/23. can resume if repeat labs with hypokalemia Discharge Orders: Discharge Order (Routine); Ordered 05/02/23 Ordered By: Jose Heath Admission Data Admit Date/Time: 04/27/23 23:10 Attending Provider: Jose Heath Admit Provider: Shravan Salas Primary Care Provider: Endy Stanley Other Providers: Angel Hope ; Paulino Cerrato ; [place] Other Interventions: Discharge Summary Assessment (RN) Last Done: 05/02/23 11:45 Coding Level of Care Code 28527 INP/OBS DISCH >30 MIN Diagnoses Abdominal ascites R18.8 Splenic vein thrombosis I82.890 Sleep apnea G47.30
--- NOTE | 2023-05-05 16:20 | Billing Data ---
Date of Service May 05, 2023 Coding Level of Care Code 45593 INT INP/OBS CARE
== END 2023-05-02 17:58 | disposition home health service (06) | DRG 433 ==
LOC: ED 15:42 → EDINP 23:10 → SUATTDRO 23:10 → EDINP 04-28 14:19 → 2E 04-28 14:49

== ENCOUNTER 2023-06-05 12:03 | Inpatient (IN) ==
[2023-06-05] MEDS ORDERED: FUROSEMIDE 40 MG/4 ML VIAL IV STA (12:54)
[2023-06-05 13:22] LABS: Basophils # (auto) 0.07 K/uL (0.00-0.20); Basophils % (auto) 1.3 %; Eosinophils # (auto) 0.41 K/uL (0.00-0.50); Eosinophils % (auto) 7.4 %; Hematocrit (blood only) 24.1 % (37.0-47.0); Hemoglobin 7.4 g/dl (12.0-16.0); Immature Granulocytes # (auto) 0.02 K/uL (0.01-0.20); Immature Granulocytes % (auto) 0.4 %; Lymphocytes % (auto) 14.4 %; Mean Corpuscular Hemoglobin 26.8 pg (25.0-34.0); Mean Corpuscular Hgb Conc 30.7 g/dL (32.0-36.0); Mean Corpuscular Volume 87.3 fL (80.0-100.0); Mean Platelet Volume 10.1 fL (9.4-12.4); Monocytes # (auto) 0.64 K/uL (0.11-0.59); Monocytes % (auto) 11.5 %; Neutrophils # (auto) 3.62 K/uL (1.40-6.50); Platelet Count 101 K/uL (130-400); RDW Coefficient of Variation 16.5 % (11.5-14.5); RDW Standard Deviation 52.4 fL (36.4-46.3); Red Blood Count 2.76 M/uL (4.20-5.40); White Blood Count 5.56 K/ul (4.8-10.8)
--- NOTE | 2023-06-05 13:39 | XRay Report ---
XR chest 1V portable HISTORY: 42 years-old Female Chest pain, nonspecific COMPARISON: 05/07/2023 TECHNIQUE: AP view the chest FINDINGS: Cardiac silhouette is enlarged. No pneumothorax, pleural effusion, airspace consolidation or pulmonar y edema. Bones appear grossly intact. Cervical spinal fusion hardware. IMPRESSION: No acute process. ACT 112: Negative or not required by law. The above report was generated using voice recognition software. It may contain grammatical, syntax o r spelling errors. Electronically signed by: Lorenzo Ocampo M.D. 06/05/2023 1:38 PM
[2023-06-05 13:46] LABS: Troponin I High Sensitivity < 2.3 pg/ml (0-14)
[2023-06-05 13:47] LABS: Alanine Aminotransferase 23 U/L (7-52); Albumin Globulin Ratio 1.1 (0.9-2); Albumin Level 3.1 gm/dl (3.4-5.0); Alkaline Phosphatase 68 U/L (34-104); Anion Gap 4 (3-11); Aspartate Aminotransferase 44 U/L (13-39); BUN Creatinine Ratio 19.8 (10-20); Bilirubin,Total 1.2 mg/dl (0.2-1.0); Blood Urea Nitrogen 17 mg/dl (6-23); Calcium 8.8 mg/dl (8.6-10.3); Carbon Dioxide 31 mmol/L (21-32); Chloride 97 mmol/L (98-107); Est GFR (African American) 96.6 ml/min; Est GFR (Non-African American) 83.3 ml/min; Globulin 2.7 gm/dl (2.5-4.0); Glucose 137 mg/dl (70-99(Fasting)); Potassium 4.4 mmol/L (3.5-5.1); Sodium 132 mmol/L (136-145); Total Protein 5.8 gm/dl (6.0-8.3)
[2023-06-05 13:50] LABS: Polychromasia 1+
--- NOTE | 2023-06-05 14:00 | Electrocardiogram Report ---
Test Reason : Blood Pressure : / mmHG Vent. Rate : 083 BPM Atrial Rate : 083 BPM P-R Int : 132 ms QRS Dur : 086 ms QT Int : 412 ms P-R-T Axes : 029 087 043 degrees QTc Int : 484 ms Normal sinus rhythm Low voltage QRS Poor R wave progression, consider anterior OH vs. lead placement vs. LVH Abnormal ECG When compared with ECG of 07-MAY-2023 07:50, No significant change Confirmed by Mikal Blue ([id number]) on 06/05/2023 1:59:57 PM Referred By: Confirmed By:Mikal Blue
[2023-06-05 14:12] LABS: Magnesium 1.8 mg/dl (1.7-2.4)
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
[2023-06-05] MEDS ORDERED: CARBOHYDRATES FOR HYPOGLYCEMIA PO PRN (16:06)
[2023-06-05] MEDS ORDERED: GLUCAGON FOR INJ 1 MG VIAL SQ PRN (16:06)
[2023-06-05] MEDS ORDERED: DEXTROSE 50% 50 ML SYRINGE IV PRN (16:06)
[2023-06-05] MEDS ORDERED: GLUCOSE 40% GEL 15 GM TUBE PO PRN (16:06)
[2023-06-05] MEDS ORDERED: GLUCOSE 10 TAB/TUBE PO PRN (16:06)
[2023-06-05 16:10] LABS: INR 1.3 (0.9-1.1); Partial Thromboplastin Ratio 0.9; Partial Thromboplastin Time 25.9 Seconds (21.0-31.0); Prothrombin Time 14.3 Seconds (9.0-12.0)
[2023-06-05] MEDS ORDERED: IPRATROPIUM BROMIDE/ALBUTEROL respimat INH INH PRN (18:04)
[2023-06-05] MEDS ORDERED: Albuterol HFA 8 GM Inhaler (Combivent Respimat P&T Subs) INH PRN (19:03)
[2023-06-05] MEDS ORDERED: Ipratropium HFA Inhaler (Combivent Respimat P&T Subs) INH PRN (19:04)
[2023-06-05] MEDS: oxyCODONE HCL IR 5 MG TAB (IMMEDIATE RELEASE) PO PRN (19:07)
[2023-06-05] MEDS ORDERED: ONDANSETRON INJ 2 MG/ML 2 ML VIAL ONE (19:21)
[2023-06-05] MEDS: INSULIN ASPART PER UNIT CHARGE SC SCH ×2 (19:23→22:10)
[2023-06-05] MEDS: SPIRONOLACTONE 100 MG TAB PO SCH (21:47)
[2023-06-05] MEDS: MAGNESIUM OXIDE 400 MG TAB PO SCH (21:49)
[2023-06-05] MEDS: rOPINIRole HCL 2 MG TABLET PO SCH (21:49)
[2023-06-05] MEDS: POTASSIUM CHLORIDE 20 MEQ/15 ML UDC PO SCH (21:50)
[2023-06-05] MEDS: LACTULOSE SYRUP 30 GM/45 ML UDP PO SCH (21:50)
[2023-06-05] MEDS: rifAXIMin 550 MG TABLET PO SCH (22:05)
[2023-06-05] MEDS: BENZOCAINE 20% (ORAJEL) 11.9 GM TUBE MT SCH (23:40)
[2023-06-05] MEDS: ALPRAZolam 0.5 MG TABLET PO PRN (23:56)
[2023-06-06] MEDS: BENZOCAINE 20% (ORAJEL) 11.9 GM TUBE MT SCH ×6 (01:22→20:30)
[2023-06-06] MEDS: oxyCODONE HCL IR 5 MG TAB (IMMEDIATE RELEASE) PO PRN ×2 (05:37→11:40)
[2023-06-06] MEDS: LEVOTHYROXINE SODIUM 150 MCG TABLET PO SCH (05:37)
[2023-06-06] MEDS: METHOCARBAMOL 750 MG TABLET PO PRN ×3 (05:38→21:13)
[2023-06-06] MEDS: DOCUSATE SODIUM 100 MG CAP PO SCH (07:45)
[2023-06-06] MEDS: CHOLECALCIFEROL 5,000 UNITS 125 MCG TAB PO SCH (07:45)
[2023-06-06] MEDS: ESCITALOPRAM OXALATE 10 MG TAB PO SCH (07:45)
[2023-06-06] MEDS: FAMOTIDINE 40 MG TABLET PO SCH (07:46)
[2023-06-06] MEDS: LACTULOSE SYRUP 30 GM/45 ML UDP PO SCH ×3 (07:48→21:12)
[2023-06-06] MEDS: MAGNESIUM OXIDE 400 MG TAB PO SCH ×2 (07:50→21:13)
[2023-06-06] MEDS: METOPROLOL SUCC 25MG EXT REL TAB PO SCH (07:50)
[2023-06-06] MEDS: POTASSIUM CHLORIDE 20 MEQ/15 ML UDC PO SCH ×2 (07:51→21:15)
[2023-06-06] MEDS: rOPINIRole HCL 2 MG TABLET PO SCH ×3 (07:52→21:14)
[2023-06-06] MEDS: rifAXIMin 550 MG TABLET PO SCH ×2 (07:52→21:15)
[2023-06-06] MEDS: SPIRONOLACTONE 100 MG TAB PO SCH ×2 (07:52→17:53)
[2023-06-06] MEDS ORDERED: FUROSEMIDE 40 MG/4 ML VIAL IV SCH (09:00)
[2023-06-06] MEDS: INSULIN ASPART PER UNIT CHARGE SC SCH ×4 (09:22→21:20)
[2023-06-06] MEDS ORDERED: ALBUMIN 25% 25 GM/100 ML VIAL IV ONE ×2 (12:42→15:43)
--- NOTE | 2023-06-06 12:47 | Hospitalist Progress Note ---
Date of Service June 06, 2023 Assessment & Plan (1) Refractory ascites: Plan: weekly paracentesis since early February 2023. this is despite use of bumex BID + aldactone BID. uncertain of compliance with her diuretics, salt restriction, etc. she just had a paracentesis on 06/04/23 at [facility]. she has already had reaccumulation of ascites since the , and is quite uncomfortable. ordered paracentesis with IR and 6 liters of fluid removed w/o incident today. total of 50grams of albumin administered before/after the tap. cell counts NOT c/w SBP. will call [facility] in am tomorrow to request transfer for consideration of TIPS procedure. BMP this afternoon is stable. resume normal bumex dosing. stop IV lasix. cont aldactone BID. (2) Dyspnea: Plan: o2 sats 100% in RA. CXR wnl. likely 2nd to restriction from morbid obesity as well as severe abd distension from massive ascites. 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 bili 1.2, INR 1.3 -- MELD score of 10 Ammonia level is wnl; she overtly has no symptoms/signs of hepatic encephalop athy Follows with Dr Calvert - [facility]hepatology at [facility] Has upcoming appt with Dr Calvert Cont lactulose TID Cont rifaximin BID (5) Portal vein thrombosis: Plan: known diagnosis has been on lovenox 150mg once daily over the last several months on hold for paracentesis today also with splenic vein thrombosis (6) Hypothyroidism: Plan: TSH was low, and FT4 was high in March repeat TFTs while here cont synthroid in meantime (7) Opioid dependence: Plan: PDMP shows ongoing scripts for oxycodone and tramadol (8) Sleep apnea: (9) Splenic vein thrombosis: Plan: lovenox 150mg daily known diagnosis (10) Hyponatremia: Plan: 2nd to cirrhosis chronic, stable (11) Esophageal varices: Plan: known diagnosis previously on beta chacha but was ultimately d/c per records (12) Portal hypertension: (13) History of CVA (cerebrovascular accident): Plan: 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 previously on plavix - has been d/c (14) Morbid obesity with BMI of 40.0-44.9, adult: (15) Diabetes mellitus, type 2: Plan: a1c <5% in March suspect this may not be accurate due to anemia and frequent PRBC infusions with that said glucose levels have been wnl follow Plan called and spoke with pt's by phone this evening change OBS to admission status Admission and Anticipated Discharge Date Admission Date: June 05, 2023 Subjective patient c/o ongoing severe abd distension from her ascites she is uncomfortable could not sleep at home due to the amount of ascites she just had a paracentesis on 06/04 at [facility] -- 6.7 L removed she is hoping to have another tap due to how uncomfortable she is denies abd pain denies melena stool she reports she sees Dr Calvert - [facility]/hepatology - at [facility] there has been discussion about possible TIPS procedure in the future due to refractory ascites there has been some early discussion about transplant as well pt denies any cough/congestion she has had numerous stools today (5+) later in the afternoon a repeat hemoglobin was 6.8 consent obtained from patient for PRBCs 1 unit of PRBCs ordered to be transfused she has had blood and iron infusions in the past w/o difficulty after seeing her I called radiology and they were agreeable to paracentesis I also spoke with Jessica MILES (in [place]) informally and, given the frequency of paracentesis, very reasonable to see if we can get her transferred to [place] for consideration of TIPS procedure Review of Systems Review of Systems: gen - no fevers or chills cv - no chest pain; no orthopnea pulm - dyspnea and YAN due to the abd ascites causing distension GI - chronic nausea; no melena or BRBPR Physical Exam Physical Exam: gen - obese, NAD, lying in bed face - hemangioma on left lower face mouth - MMM neck - no JVD heart - RRR, s1 s2, 2/6 EDUARDO LSB lungs - CTA b/l abd - severe distension due to ascites, NT; dressing on right side of abdomen clean (from prior paracentesis) ext - severe edema, 3-4+ from feet to upper thighs neuro - no asterixis; speech is slow but not dysarthric psych - a/o x 3 Results & Data Results & Data Vital Signs (Past 12 Hours) Vital Signs Temp Pulse Resp BP Pulse Ox O2 Del Method 06/06/23 07:57 36.8 C 89 16 138/84 100 Room Air Laboratory Results Laboratory Results - last 48 hr 06/05/23 06/06/23 06/06/23 22:09 07:52 11:35 WBC RBC Hgb Hct MCV MCH MCHC RDW Std Deviation RDW Coeff of Henna Plt Count MPV Sodium Potassium Chloride Carbon Dioxide Anion Gap BUN Creatinine Est Cr Clr Drug Dosing Est GFR ( Amer) Est GFR (Non-Af Amer) BUN/Creatinine Ratio Glucose POC Glucose 110 H 148 H 114 H Calcium Iron TIBC Unsaturated IBC Transferrin % Sat Ferritin Urine Test Fluid Neutrophils % Fluid Lymphocytes % Fluid [place] % Fluid Comment Peritoneal Color Peritoneal Appearance Peritoneal WBC (Auto) Peritoneal RBC (Auto) Blood Type Antibody Screen Crossmatch 06/06/23 06/06/23 06/06/23 14:57 16:51 16:51 WBC 5.09 RBC 2.51 L Hgb 6.8 L* Hct 21.2 L MCV 84.5 MCH 27.1 MCHC 32.1 RDW Std Deviation 51.3 H RDW Coeff of Henna 16.5 H Plt Count 76 L MPV 9.7 Sodium 132 L Potassium 4.6 Chloride 98 Carbon Dioxide 32 Anion Gap 2 L BUN 15 Creatinine 1.14 Est Cr Clr Drug Dosing 76.1 Est GFR ( Amer) 68.7 Est GFR (Non-Af Amer) 59.3 BUN/Creatinine Ratio 13.2 Glucose 82 POC Glucose Calcium 8.4 L Iron TIBC Unsaturated IBC Transferrin % Sat Ferritin Urine Test Fluid Neutrophils % 11 Fluid Lymphocytes % 48 Fluid [place] % 41 Fluid Comment Peritoneal Color Pale Yellow Peritoneal Appearance Hazy Peritoneal WBC (Auto) 278 Peritoneal RBC (Auto) 3000 Blood Type Antibody Screen Crossmatch 06/06/23 06/06/23 16:57 19:30 WBC RBC Hgb Hct MCV MCH MCHC RDW Std Deviation RDW Coeff of Henna Plt Count MPV Sodium Potassium Chloride Carbon Dioxide Anion Gap BUN Creatinine Est Cr Clr Drug Dosing Est GFR ( Amer) Est GFR (Non-Af Amer) BUN/Creatinine Ratio Glucose POC Glucose 97 Calcium Iron TIBC Unsaturated IBC Transferrin % Sat Ferritin Urine Test Fluid Neutrophils % Fluid Lymphocytes % Fluid [place] % Fluid Comment Peritoneal Color Peritoneal Appearance Peritoneal WBC (Auto) Peritoneal RBC (Auto) Blood Type A Positive Antibody Screen NEGATIVE Crossmatch See Detail PG Care Time/CCT Total # of Minutes Spent Total Time Spent with Patient: Total time spent is greater than 50% in coordination of care (as documented) at patient's floor/unit and/or counseling patient: Coding Level of Care Code 10744 SUB INP/OBS CARE 3/50MIN Diagnoses Refractory ascites R18.8 Dyspnea R06.00 Anemia D64.9 Cirrhosis K74.60 Portal vein thrombosis I81 Hypothyroidism E03.9 Opioid dependence F11.20 Sleep apnea G47.30 Splenic vein thrombosis I82.890 Hyponatremia E87.1 Esophageal varices I85.00 Portal hypertension K76.6 History of CVA (cerebrovascular accident) Z86.73 Morbid obesity with BMI of 40.0-44.9, adult E66.01; Z68.41 Diabetes mellitus, type 2 E11.9
--- NOTE | 2023-06-06 15:33 | Ultrasound Report ---
ULTRASOUND-GUIDED DIAGNOSTIC AND THERAPEUTIC PARACENTESIS: HISTORY: Ascites. Procedure: The procedure and its risks, benefits and alternatives were discussed with the patient and written informed consent was obtained. Preliminary ultrasound of the abdomen was performed to determ ine a safe needle entry site. The left lateral abdomen was prepped and draped in the usual sterile fashion. 1% Lidocaine was used f or local anesthesia. A paracentesis needle-sheath was inserted into the peritoneal space using ultras ound guidance. The needle was removed and the sheath was connected to tubing and a vacuum suction dev ice. A total of 6 liters of cloudy yellow ascites was aspirated. The sheath was removed and a sterile dressing applied. The patient tolerated the procedure well and there were no immediate complications. IMPRESSION: Ultrasound-guided therapeutic and diagnostic paracentesis with aspiration of 6 liters of ascites. 1 L was sent to the laboratory at the request of the referring physician. ACT 112: Negative or not required by law. Electronically signed by: Forrest Byrne M.D. 06/06/2023 3:32 PM
[2023-06-06 16:57] LABS: Appearance Peritoneal Fluid Hazy; Color Peritoneal Fluid Pale Yellow; RBC Peritoneal Fluid Auto 3000 /uL; WBC Peritoneal Fluid Auto 278 /ul (0-300)
[2023-06-06 17:31] LABS: BUN Creatinine Ratio 13.2 (10-20); Calcium 8.4 mg/dl (8.6-10.3); Creatinine Clr Calc Pharmacy 76.1 ml/min; Est GFR (African American) 68.7 ml/min; Est GFR (Non-African American) 59.3 ml/min; Potassium 4.6 mmol/L (3.5-5.1)
[2023-06-06 17:42] LABS: Hematocrit (blood only) 21.2 % (37.0-47.0); Hemoglobin 6.8 g/dl (12.0-16.0); Mean Corpuscular Hemoglobin 27.1 pg (25.0-34.0); Mean Corpuscular Hgb Conc 32.1 g/dL (32.0-36.0); Mean Corpuscular Volume 84.5 fL (80.0-100.0); Mean Platelet Volume 9.7 fL (9.4-12.4); Platelet Count 76 K/uL (130-400); RDW Coefficient of Variation 16.5 % (11.5-14.5); RDW Standard Deviation 51.3 fL (36.4-46.3); Red Blood Count 2.51 M/uL (4.20-5.40); White Blood Count 5.09 K/ul (4.8-10.8)
[2023-06-06] MEDS ORDERED: SODIUM CHLORIDE 0.9% 250 ML IV PRN (18:29)
[2023-06-06 18:46] LABS: Lymphocytes, Fluid 48 %; Neutrophils, Fluid 11 %
[2023-06-06 18:47] LABS: Mono,Macrophage,Mesothelial 41 %
[2023-06-07] MEDS: oxyCODONE HCL IR 5 MG TAB (IMMEDIATE RELEASE) PO PRN ×3 (00:20→23:09)
[2023-06-07] MEDS: ACETAMINOPHEN 500 MG TAB PO PRN (00:20)
[2023-06-07] MEDS: BENZOCAINE 20% (ORAJEL) 11.9 GM TUBE MT SCH ×7 (00:22→23:12)
[2023-06-07 02:44] LABS: Pregnancy Test, Urine Negative (Negative)
[2023-06-07] MEDS: LEVOTHYROXINE SODIUM 150 MCG TABLET PO SCH (05:32)
[2023-06-07 08:01] LABS: Hematocrit (blood only) 25.2 % (37.0-47.0); Mean Corpuscular Hemoglobin 27.1 pg (25.0-34.0); Mean Corpuscular Hgb Conc 31.7 g/dL (32.0-36.0); Mean Corpuscular Volume 85.4 fL (80.0-100.0); Mean Platelet Volume 9.9 fL (9.4-12.4); Platelet Count 81 K/uL (130-400); RDW Coefficient of Variation 16.5 % (11.5-14.5); RDW Standard Deviation 50.9 fL (36.4-46.3); Red Blood Count 2.95 M/uL (4.20-5.40)
[2023-06-07] MEDS: INSULIN ASPART PER UNIT CHARGE SC SCH ×4 (09:06→20:21)
[2023-06-07] MEDS: rOPINIRole HCL 2 MG TABLET PO SCH ×3 (09:08→20:16)
[2023-06-07] MEDS: POTASSIUM CHLORIDE 20 MEQ/15 ML UDC PO SCH ×2 (09:08→20:10)
[2023-06-07] MEDS: rifAXIMin 550 MG TABLET PO SCH ×2 (09:08→20:16)
[2023-06-07] MEDS: CHOLECALCIFEROL 5,000 UNITS 125 MCG TAB PO SCH (09:09)
[2023-06-07] MEDS: MAGNESIUM OXIDE 400 MG TAB PO SCH ×2 (09:09→20:16)
[2023-06-07] MEDS: SPIRONOLACTONE 100 MG TAB PO SCH ×2 (09:09→16:20)
[2023-06-07] MEDS: FAMOTIDINE 40 MG TABLET PO SCH (09:09)
[2023-06-07] MEDS: ESCITALOPRAM OXALATE 10 MG TAB PO SCH (09:09)
[2023-06-07] MEDS: METOPROLOL SUCC 25MG EXT REL TAB PO SCH (09:09)
[2023-06-07] MEDS: LACTULOSE SYRUP 30 GM/45 ML UDP PO SCH ×3 (09:09→20:15)
[2023-06-07] MEDS: DOCUSATE SODIUM 100 MG CAP PO SCH (09:19)
[2023-06-07] MEDS: ONDANSETRON INJ 2 MG/ML 2 ML VIAL IV PRN ×3 (09:19→23:10)
[2023-06-07 09:36] LABS: Calcium 8.7 mg/dl (8.6-10.3); Potassium 4.5 mmol/L (3.5-5.1)
[2023-06-07 09:42] LABS: BUN Creatinine Ratio 15.7 (10-20); Creatinine Clr Calc Pharmacy 80.3 ml/min; Est GFR (African American) 73.3 ml/min; Est GFR (Non-African American) 63.3 ml/min
[2023-06-07] MEDS: BUMETANIDE 1 MG TAB PO SCH ×2 (12:31→16:21)
[2023-06-07 14:51] LABS: Hematocrit (blood only) 23.8 % (37.0-47.0); Hemoglobin 7.6 g/dl (12.0-16.0)
[2023-06-07 15:30] LABS: Ferritin 18.3 ng/ml (8-388)
[2023-06-07] MEDS ORDERED: METOCLOPRAMIDE HCL INJ 5 MG/ML 2 ML VIAL IV ONE (15:30)
[2023-06-07] MEDS ORDERED: IRON SUCROSE 300 MG in SODIUM CHLORIDE 0.9% 250 ML IV ONE (15:45)
[2023-06-07] MEDS: TRIAMCINOLONE ACET 0.1% CR 15 GM TUBE EXT SCH ×2 (15:57→20:10)
[2023-06-07] MEDS: PANTOprazole 40 MG in SYRINGE 0 ML IV SCH ×2 (15:58→23:04)
--- NOTE | 2023-06-07 21:16 | Hospitalist Progress Note ---
Date of Service June 07, 2023 Assessment & Plan (1) Refractory ascites: Plan: weekly paracentesis since early February 2023. this is despite use of bumex BID + aldactone BID. uncertain of compliance with her diuretics, salt restriction, etc. she just had a paracentesis on 06/04/23 at [facility]. required a 2nd one yesterday, 06/06/23, with 6 L removed. cell counts NOT c/w SBP. cx from 06/06/23 fluid negative to date. spoke with transfer center at [facility] this am -- request to transfer acutely for consideration of TIPS procedure declined. GI there felt she needs additional pre-TIPS w/u including echo while here, followed by f/u with Dr Calvert this week at GI clinic [facility]. cont bumex 2mg BID. cont aldactone 100mg BID. ascites today- stable. (2) Dyspnea: Plan: o2 sats 100% in RA. CXR wnl. likely 2nd to restriction from morbid obesity as well as severe abd distension from massive ascites. no dyspnea or YAN today. (3) Anemia: Plan: acute/chronic h/o iron deficiency Hb baseline 8-9 6.8 yesterday s/p 1 unit PRBCs appropriate response to such, then trended back down to 7.6 this afternoon stools w/o melena or BRBPR ; no overt GI bleeding; holding lovenox until we know for sure that there is no occult bleeding Fe studies c/w Fe def - will give 300mg of IV venofer today B12/folate both normal in January 2023 repeat CBC am (4) Cirrhosis: Plan: 2nd to [place] cirrhosis Decompensated - massive ascites, severe LE edema Sodium 132, T. bili 1.2, INR 1.3 -- MELD score of 10 Ammonia level is wnl; she overtly has no symptoms/signs of hepatic encephalopathy Follows with Dr Calvert - Jessica GI/hepatology at [facility] Has upcoming appt with Dr Calvert Cont lactulose TID Cont rifaximin BID see #1 above re: discussion with [facility] this am (5) Portal vein thrombosis: Plan: known diagnosis has been on lovenox 150mg once daily over the last several months on hold due to H/H trending down; ?bleeding? also with splenic vein thrombosis (6) Hypothyroidism: Plan: TSH was low, and FT4 was high in March repeat TFTs in am tomorrow cont synthroid in meantime (7) Opioid dependence: Plan: PDMP shows ongoing scripts for oxycodone and tramadol cont oxy 10mg prn (8) Sleep apnea: Plan: should be on therapy for such but is no longer on Rx (9) Splenic vein thrombosis: Plan: lovenox 150mg daily when felt safe from hemoglobin standpoint known diagnosis (10) Hyponatremia: Plan: 2nd to cirrhosis chronic, stable BMP am (11) Esophageal varices: Plan: known diagnosis previously on beta chacha but was ultimately d/c per records should ideally be on PPI - will add, especially in light of upper GI symptoms today (12) Portal hypertension: (13) History of CVA (cerebrovascular accident): Plan: 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 Admission and Anticipated Discharge Date Admission Date: June 06, 2023 Subjective pt's main complaint today is that of nausea, dry heaves no hematemesis or coffee-grounds she also has headache she has these symptoms at home frequently denies abd pain has had 3 stools already today - no melena, no BRBPR this am I called the transfer center at [facility] I was connected with the chief system triage medical genetics director and on-call GI I requested transfer for consideration of TIPS procedure in light of refractory ascites discussed her case in detail GI there was in agreement with TIPS if deemed a candidate they confirmed she has f/u with Dr Calvert within the next week at [facility] GI at [facility] recommended an echo in preparation for TIPS ultimately they did not feel she should be acutely transferred; preferred outpatient management of this they advised ongoing paracentesis even if it is 2x/week Review of Systems Review of Systems: gen - no fevers or chills cv - no chest pain pulm - no dyspnea; no YAN with walking the hallways GI - no abd pain Physical Exam Physical Exam: gen - obese, NAD, sitting at side of bed face - hemangioma on left lower face mouth - MMM neck - no JVD heart - RRR, s1 s2, 2/6 EDUARDO LSB lungs - CTA b/l abd - distension from ascites mildly improved s/p paracentesis yesterday; NT; dressing on right side of abdomen lifted up - prior paracentesis site with sutures in place; 1-2 drops of ascites fluid drained from site with pushing on abdomen ext - severe edema, 3-4+ from feet to upper thighs neuro - no asterixis; speech is slow but not dysarthric psych - a/o x 3 Results & Data Results & Data Vital Signs (Past 12 Hours) Vital Signs Temp Pulse Resp BP Pulse Ox O2 Del Method 06/07/23 15:23 37.0 C 74 18 110/68 98 Room Air Laboratory Results Laboratory Results - last 24 hr 06/06/23 06/07/23 06/07/23 19:30 02:20 07:26 WBC RBC Hgb Hct MCV MCH MCHC RDW Std Deviation RDW Coeff of Henna Plt Count MPV Sodium Potassium Chloride Carbon Dioxide Anion Gap BUN Creatinine Est Cr Clr Drug Dosing Est GFR ( Amer) Est GFR (Non-Af Amer) BUN/Creatinine Ratio Glucose POC Glucose 94 Calcium Iron TIBC Unsaturated IBC Transferrin % Sat Ferritin Urine Test Negative Blood Type A Positive Antibody Screen NEGATIVE Crossmatch See Detail 06/07/23 06/07/23 06/07/23 07:40 07:40 11:36 WBC 5.30 RBC 2.95 L Hgb 8.0 L Hct 25.2 L MCV 85.4 MCH 27.1 MCHC 31.7 L RDW Std Deviation 50.9 H RDW Coeff of Henna 16.5 H Plt Count 81 L MPV 9.9 Sodium 132 L Potassium 4.5 Chloride 98 Carbon Dioxide 30 Anion Gap 4 BUN 17 Creatinine 1.08 Est Cr Clr Drug Dosing 80.3 Est GFR ( Amer) 73.3 Est GFR (Non-Af Amer) 63.3 BUN/Creatinine Ratio 15.7 Glucose 86 POC Glucose 116 H Calcium 8.7 Iron TIBC Unsaturated IBC Transferrin % Sat Ferritin Urine Test Blood Type Antibody Screen Crossmatch 06/07/23 06/07/23 06/07/23 14:27 14:27 16:29 WBC RBC Hgb 7.6 L Hct 23.8 L MCV MCH MCHC RDW Std Deviation RDW Coeff of Henna Plt Count MPV Sodium Potassium Chloride Carbon Dioxide Anion Gap BUN Creatinine Est Cr Clr Drug Dosing Est GFR ( Amer) Est GFR (Non-Af Amer) BUN/Creatinine Ratio Glucose POC Glucose 94 Calcium Iron 13 L TIBC 206 L Unsaturated IBC 193 Transferrin % Sat 6 L Ferritin 18.3 Urine Test Blood Type Antibody Screen Crossmatch 06/07/23 20:20 WBC RBC Hgb Hct MCV MCH MCHC RDW Std Deviation RDW Coeff of Henna Plt Count MPV Sodium Potassium Chloride Carbon Dioxide Anion Gap BUN Creatinine Est Cr Clr Drug Dosing Est GFR ( Amer) Est GFR (Non-Af Amer) BUN/Creatinine Ratio Glucose POC Glucose 140 H Calcium Iron TIBC Unsaturated IBC Transferrin % Sat Ferritin Urine Test Blood Type Antibody Screen Crossmatch PG Care Time/CCT Total # of Minutes Spent Total Time Spent with Patient: Total time spent is greater than 50% in coordination of care (as documented) at patient's floor/unit and/or counseling patient: Coding Level of Care Code 53207 SUB INP/OBS CARE 3/50MIN Diagnoses Refractory ascites R18.8 Dyspnea R06.00 Anemia D64.9 Cirrhosis K74.60 Portal vein thrombosis I81 Hypothyroidism E03.9 Opioid dependence F11.20 Sleep apnea G47.30 Splenic vein thrombosis I82.890 Hyponatremia E87.1 Esophageal varices I85.00 Portal hypertension K76.6 History of CVA (cerebrovascular accident) Z86.73 Morbid obesity with BMI of 40.0-44.9, adult E66.01; Z68.41 Diabetes mellitus, type 2 E11.9 Nausea & vomiting R11.2
--- NOTE | 2023-06-07 22:59 | XCELERA ---
[id number]
[2023-06-07] MEDS: ALPRAZolam 0.5 MG TABLET PO PRN (23:09)
[2023-06-07] MEDS: METHOCARBAMOL 750 MG TABLET PO PRN (23:10)
[2023-06-08] MEDS: LEVOTHYROXINE SODIUM 150 MCG TABLET PO SCH (05:12)
[2023-06-08] MEDS: ONDANSETRON INJ 2 MG/ML 2 ML VIAL IV PRN ×2 (05:24→11:45)
[2023-06-08] MEDS: BENZOCAINE 20% (ORAJEL) 11.9 GM TUBE MT SCH ×5 (05:26→21:00)
[2023-06-08 07:46] LABS: Hematocrit (blood only) 23.2 % (37.0-47.0); Hemoglobin 7.4 g/dl (12.0-16.0); Mean Corpuscular Hemoglobin 26.5 pg (25.0-34.0); Mean Corpuscular Hgb Conc 31.9 g/dL (32.0-36.0); Mean Corpuscular Volume 83.2 fL (80.0-100.0); Mean Platelet Volume 10.4 fL (9.4-12.4); Platelet Count 79 K/uL (130-400); RDW Coefficient of Variation 16.7 % (11.5-14.5); RDW Standard Deviation 50.4 fL (36.4-46.3); Red Blood Count 2.79 M/uL (4.20-5.40); White Blood Count 5.82 K/ul (4.8-10.8)
[2023-06-08 08:01] LABS: BUN Creatinine Ratio 16.4 (10-20); Calcium 8.2 mg/dl (8.6-10.3); Creatinine Clr Calc Pharmacy 78.8 ml/min; Est GFR (African American) 71.7 ml/min; Est GFR (Non-African American) 61.9 ml/min; Potassium 3.7 mmol/L (3.5-5.1)
[2023-06-08] MEDS: PANTOprazole 40 MG in SYRINGE 0 ML IV SCH ×2 (08:15→20:58)
[2023-06-08] MEDS: BUMETANIDE 1 MG TAB PO SCH ×2 (08:15→16:46)
[2023-06-08] MEDS: METHOCARBAMOL 750 MG TABLET PO PRN ×2 (08:15→23:14)
[2023-06-08] MEDS: ESCITALOPRAM OXALATE 10 MG TAB PO SCH (08:16)
[2023-06-08] MEDS: rOPINIRole HCL 2 MG TABLET PO SCH ×3 (08:16→20:59)
[2023-06-08] MEDS: MAGNESIUM OXIDE 400 MG TAB PO SCH ×2 (08:16→20:58)
[2023-06-08] MEDS: SPIRONOLACTONE 100 MG TAB PO SCH ×2 (08:16→16:46)
[2023-06-08] MEDS: FAMOTIDINE 40 MG TABLET PO SCH (08:16)
[2023-06-08] MEDS: METOPROLOL SUCC 25MG EXT REL TAB PO SCH (08:16)
[2023-06-08] MEDS: CHOLECALCIFEROL 5,000 UNITS 125 MCG TAB PO SCH (08:16)
[2023-06-08] MEDS: rifAXIMin 550 MG TABLET PO SCH ×2 (08:16→20:59)
[2023-06-08 08:18] LABS: Thyroid Stimulating Hormone 17.663 uIu/ml (0.300-4.500)
[2023-06-08 08:20] LABS: T4 Free Thyroxine 1.8 ng/dl (0.61-1.60)
[2023-06-08] MEDS: POTASSIUM CHLORIDE 20 MEQ/15 ML UDC PO SCH ×2 (08:27→20:59)
[2023-06-08] MEDS: LACTULOSE SYRUP 30 GM/45 ML UDP PO SCH ×3 (08:28→21:01)
[2023-06-08] MEDS: DOCUSATE SODIUM 100 MG CAP PO SCH (08:29)
[2023-06-08] MEDS: TRIAMCINOLONE ACET 0.1% CR 15 GM TUBE EXT SCH ×3 (08:30→21:00)
[2023-06-08] MEDS: INSULIN ASPART PER UNIT CHARGE SC SCH ×4 (08:52→21:01)
[2023-06-08] MEDS ORDERED: IRON SUCROSE 300 MG in SODIUM CHLORIDE 0.9% 250 ML IV ONE (09:00)
[2023-06-08] MEDS: SUCRALFATE 1 GM/10 ML UDC PO SCH ×4 (09:40→20:59)
[2023-06-08] MEDS: oxyCODONE HCL IR 5 MG TAB (IMMEDIATE RELEASE) PO PRN ×2 (11:46→23:13)
--- NOTE | 2023-06-08 13:59 | Emergency Department Note ---
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 CHERYLE Stop: 07/08/23 08:59 Last Admin: 06/08/23 11:51 Dose: 1 gm Documented By: Admin: 06/08/23 09:40 Dose: 1 gm Documented By: ELIZABETH Triamcinolone Acetonide (Triamcinolone Acet 0.1% Cr 15 Gm Tube) 1 appln EXT TID CHERYLE Stop: 07/07/23 15:29 Last Admin: 06/08/23 12:32 Dose: 1 appln Documented By: Admin: 06/08/23 08:30 Dose: 1 appln Documented By: Admin: 06/07/23 20:10 Dose: 1 appln Documented By: Admin: 06/07/23 15:57 Dose: 1 appln Documented By: ELIZABETH Vitamin D (Cholecalciferol 5,000 Units 125 Mcg Tab) 5,000 units PO DAILY CHERYLE Stop: 07/06/23 08:59 Last Admin: 06/08/23 08:16 Dose: 5,000 units Documented By: Admin: 06/07/23 09:09 Dose: 5,000 units Documented By: Admin: 06/06/23 07:45 Dose: 5,000 units Documented By: ELIZABETH Discontinued Medications Furosemide (Furosemide 40 Mg/4 Ml Vial) 80 mg IV NOW STA Stop: 06/05/23 12:55 Last Admin: 06/05/23 13:16 Dose: 80 mg Documented By: EDGAR Albumin Human (Albumin 25%) 25 gm in 100 mls @ 50 mls/hr IV ONE ONE Stop: 06/06/23 14:41 Last Infusion: 06/06/23 17:48 Dose: 0 mls/hr Documented By: Admin: 06/06/23 15:46 Dose: 50 mls/hr Documented By: ELIZABETH Albumin Human (Albumin 25%) 25 gm in 100 mls @ 50 mls/hr IV ONE ONE Stop: 06/06/23 17:42 Last Infusion: 06/06/23 19:39 Dose: 0 mls/hr Documented By: Admin: 06/06/23 17:54 Dose: 50 mls/hr Documented By: ELIZABETH Iron Sucrose 300 mg/ Sodium (Chloride) 265 mls @ 176.667 mls/hr IV ONE ONE Stop: 06/07/23 17:14 Last Infusion: 06/07/23 17:53 Dose: 0 mls/hr Documented By: Admin: 06/07/23 16:21 Dose: 176.7 mls/hr Documented By: ELIZABETH Iron Sucrose 300 mg/ Sodium (Chloride) 265 mls @ 176.667 mls/hr IV 0900 ONE Stop: 06/08/23 10:29 Last Infusion: 06/08/23 11:50 Dose: 0 mls/hr Documented By: Admin: 06/08/23 09:43 Dose: 176.7 mls/hr Documented By: ELIZABETH Metoclopramide HCl (Metoclopramide Hcl Inj 5 Mg/Ml 2 Ml Vial) 5 mg IV ONE ONE Stop: 06/07/23 15:31 Last Admin: 06/07/23 16:46 Dose: 5 mg Documented By: ELIZABETH Ondansetron HCl (Ondansetron Inj 2 Mg/Ml 2 Ml Vial) Confirm Administered Dose 4 mg .ROUTE .STK-MED ONE Stop: 06/05/23 19:22 Last Admin: 06/05/23 19:23 Dose: 4 mg Documented By: EDGAR Imaging Data Radiologist's Impression: Chest X-Ray 06/05/23 12:20 XR chest 1V portable HISTORY: 42 years-old Female Chest pain, nonspecific COMPARISON: 05/07/2023 TECHNIQUE: AP view the chest FINDINGS: Cardiac silhouette is enlarged. No pneumothorax, pleural effusion, airspace consolidation or pulmonary edema. Bones appear grossly intact. Cervical spinal fusion hardware. IMPRESSION: No acute process. ACT 112: Negative or not required by law. The above report was generated using voice recognition software. It may contain grammatical, syntax or spelling errors. Electronically signed by: Lorenzo Ocampo M.D. 06/05/2023 1:38 PM Paracentesis Ultrasound 06/06/23 12:34 ULTRASOUND-GUIDED DIAGNOSTIC AND THERAPEUTIC PARACENTESIS: HISTORY: Ascites. Procedure: The procedure and its risks, benefits and alternatives were discussed with the patient and written informed consent was obtained. Preliminary ultrasound of the abdomen was performed to determine a safe needle entry site. The left lateral abdomen was prepped and draped in the usual sterile fashion. 1% Lidocaine was used for local anesthesia. A paracentesis needle-sheath was inserted into the peritoneal space using ultrasound guidance. The needle was removed and the sheath was connected to tubing and a vacuum suction device. A total of 6 liters of cloudy yellow ascites was aspirated. The sheath was removed and a sterile dressing applied. The patient tolerated the procedure well and there were no immediate complications. IMPRESSION: Ultrasound-guided therapeutic and diagnostic paracentesis with aspiration of 6 liters of ascites. 1 L was sent to the laboratory at the request of the referring physician. ACT 112: Negative or not required by law. Electronically signed by: Forrest Byrne M.D. 06/06/2023 3:32 PM Discharge Plan Visit Data Chief Complaint: Shortness of Breath/Dyspnea Stated Complaint: SOB,DOC REF ED Provider: Jolene Sanchez Discharge Problem: Abdominal ascites Patient Disposition: Admitted As Inpatient Discharge Instructions Interventions: ED Discharge Assessment Last Done: 06/05/23 18:03
[2023-06-08 14:32] LABS: Hematocrit (blood only) 26.1 % (37.0-47.0); Hemoglobin 8.5 g/dl (12.0-16.0)
--- NOTE | 2023-06-08 17:06 | Hospitalist Progress Note ---
Date of Service June 08, 2023 Assessment & Plan (1) Refractory ascites: Plan: weekly paracentesis since early February 2023. this is despite use of bumex BID + aldactone BID. uncertain of compliance with her diuretics, salt restriction, etc. she just had a paracentesis on 06/04/23 at [facility]. required a 2nd one yesterday, 06/06/23, with 6 L removed. cell counts NOT c/w SBP. cx from 06/06/23 fluid negative to date. spoke with transfer center at [facility] AM of 06/07 -- request to transfer acutely for consideration of TIPS procedure declined. GI there felt she needs additional pre-TIPS w/u including echo while here, followed by f/u with Dr Calvert this week at GI clinic [facility] (06/13). cont bumex 2mg BID. cont aldactone 100mg BID. ascites today- stable. may need a stitch in prior paracentesis site if it continues to leak; place ostomy bag over site in meantime. (2) Dyspnea: Plan: o2 sats 100% in RA. CXR wnl. likely 2nd to restriction from morbid obesity as well as severe abd distension from massive ascites. no dyspnea or YAN today. 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 bili 1.2, INR 1.3 -- MELD score of 10 Ammonia level is wnl; she overtly has no symptoms/signs of hepatic encephalopathy Follows with Dr Calvert - [facility]ology at [facility] Has upcoming appt with Dr Calvert Cont lactulose TID Cont rifaximin BID see #1 above re: discussion with [facility] this am will reach out via [place] to Dr Calvert tomorrow on Friday (5) Portal vein thrombosis: Plan: known diagnosis has been on lovenox 150mg once daily over the last several months on hold due to H/H trending down; ?bleeding? also with splenic vein thrombosis (6) Hypothyroidism: Plan: TSH was low, and FT4 was high in March today TSH is high, FT4 is high - will reach out to Dr Workman for assistance with this cont synthroid in meantime (7) Opioid dependence: Plan: PDMP shows ongoing scripts for oxycodone and tramadol cont oxy 10mg prn (8) Sleep apnea: Plan: should be on therapy for such but is no longer on Rx (9) Splenic vein thrombosis: Plan: lovenox 150mg daily when felt safe from hemoglobin standpoint known diagnosis (10) Hyponatremia: Plan: 2nd to cirrhosis chronic, stable BMP am (11) Esophageal varices: Plan: known diagnosis previously on beta chacha but was ultimately d/c per records should ideally be on PPI - I did add such (12) Portal hypertension: (13) History of CVA (cerebrovascular accident): Plan: 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 cont PPI cont pepcid 40mg daily cont carafate Plan called and spoke with pt's by phone richy - gave update home tomorrow ?? depends on conversation with [facility] and how ascites is doing Admission and Anticipated Discharge Date Admission Date: June 06, 2023 Subjective no new events except she states she is having constant liquid stools - 10+ since overnight ? no abd pain dyspepsia/dry heaves - improved NO coffee-ground emesis, hematemesis per nursing - stools are NOT melena, no BRB pt's prior paracentesis site on left is leaking ascitic fluid denies new complaints she is upset that [facility] did not accept her in transfer to [facility] for TIPS Review of Systems Review of Systems: gen - no fevers cv - no chest pain; LE edema slightly improved; "I can see space in between my toes!" pulm - dyspnea at times from her massive ascites GI - no vomiting today Physical Exam Physical Exam: gen - obese, NAD, sitting at side of bed - looks better today face - hemangioma on left lower face unchanged mouth - MMM neck - no JVD heart - RRR, s1 s2, 2/6 EDUARDO LSB lungs - CTA b/l abd - distension from ascites unchanged; NT; dressing on right side of abdomen intact; paracentesis site L abdomen leaking fluid - clear ext - severe edema, 3+ from feet to upper thighs neuro - no asterixis; speech is slow but not dysarthric (baseline) psych - a/o x 3 Results & Data Results & Data Vital Signs (Past 12 Hours) Vital Signs Temp Pulse Pulse Resp BP BP Pulse Ox 06/08/23 09:05 06/08/23 08:00 36.7 C 73 16 126/72 98 06/08/23 06:08 36.8 C 85 18 105/62 95 O2 Del Method 06/08/23 09:05 Room Air 06/08/23 08:00 Room Air 06/08/23 06:08 Room Air Laboratory Results Laboratory Results - last 24 hr 06/07/23 06/08/23 06/08/23 20:20 06:44 06:44 WBC 5.82 RBC 2.79 L Hgb 7.4 L Hct 23.2 L MCV 83.2 MCH 26.5 MCHC 31.9 L RDW Std Deviation 50.4 H RDW Coeff of Henna 16.7 H Plt Count 79 L MPV 10.4 Sodium 132 L Potassium 3.7 Chloride 98 Carbon Dioxide 29 Anion Gap 5 BUN 18 Creatinine 1.10 Est Cr Clr Drug Dosing 78.8 Est GFR ( Amer) 71.7 Est GFR (Non-Af Amer) 61.9 BUN/Creatinine Ratio 16.4 Glucose 116 H POC Glucose 140 H Calcium 8.2 L TSH 17.663 H Free T4 1.80 H 06/08/23 06/08/23 06/08/23 08:20 12:17 14:20 WBC RBC Hgb 8.5 L Hct 26.1 L MCV MCH MCHC RDW Std Deviation RDW Coeff of Henna Plt Count MPV Sodium Potassium Chloride Carbon Dioxide Anion Gap BUN Creatinine Est Cr Clr Drug Dosing Est GFR ( Amer) Est GFR (Non-Af Amer) BUN/Creatinine Ratio Glucose POC Glucose 122 H 128 H Calcium TSH Free T4 Diagnostic Findings ascites culture from 06/06 negative to date PG Care Time/CCT Total # of Minutes Spent Total Time Spent with Patient: Total time spent is greater than 50% in coordination of care (as documented) at patient's floor/unit and/or counseling patient: Coding Level of Care Code 21571 SUB INP/OBS CARE 3/50MIN Diagnoses Refractory ascites R18.8 Dyspnea R06.00 Anemia D64.9 Cirrhosis K74.60 Portal vein thrombosis I81 Hypothyroidism E03.9 Opioid dependence F11.20 Sleep apnea G47.30 Splenic vein thrombosis I82.890 Hyponatremia E87.1 Esophageal varices I85.00 Portal hypertension K76.6 History of CVA (cerebrovascular accident) Z86.73 Morbid obesity with BMI of 40.0-44.9, adult E66.01; Z68.41 Diabetes mellitus, type 2 E11.9 Nausea & vomiting R11.2
[2023-06-08] MEDS: METOCLOPRAMIDE HCL INJ 5 MG/ML 2 ML VIAL IV PRN (19:53)
[2023-06-08] MEDS: ALPRAZolam 0.5 MG TABLET PO PRN (23:14)
[2023-06-09] MEDS: BENZOCAINE 20% (ORAJEL) 11.9 GM TUBE MT SCH ×7 (00:01→23:12)
[2023-06-09] MEDS: ACETAMINOPHEN 500 MG TAB PO PRN ×2 (02:10→10:47)
[2023-06-09] MEDS ORDERED: BUTALBITAL/ACETAMIN/CAFFEINE TAB PO STA (02:16)
[2023-06-09] MEDS: LEVOTHYROXINE SODIUM 150 MCG TABLET PO SCH (05:10)
[2023-06-09] MEDS: METHOCARBAMOL 750 MG TABLET PO PRN ×3 (07:10→23:01)
[2023-06-09] MEDS: SUCRALFATE 1 GM/10 ML UDC PO SCH ×4 (07:13→20:55)
[2023-06-09] MEDS: oxyCODONE HCL IR 5 MG TAB (IMMEDIATE RELEASE) PO PRN ×3 (07:28→23:01)
[2023-06-09 07:40] LABS: Hematocrit (blood only) 25.8 % (37.0-47.0); Hemoglobin 8.2 g/dl (12.0-16.0); Mean Corpuscular Hemoglobin 27.1 pg (25.0-34.0); Mean Corpuscular Hgb Conc 31.8 g/dL (32.0-36.0); Mean Corpuscular Volume 85.1 fL (80.0-100.0); Mean Platelet Volume 10.3 fL (9.4-12.4); Platelet Count 100 K/uL (130-400); RDW Coefficient of Variation 16.8 % (11.5-14.5); RDW Standard Deviation 51.7 fL (36.4-46.3); Red Blood Count 3.03 M/uL (4.20-5.40); White Blood Count 9.54 K/ul (4.8-10.8)
[2023-06-09 08:01] LABS: Albumin Globulin Ratio 1.2 (0.9-2); Albumin Level 3.1 gm/dl (3.4-5.0); BUN Creatinine Ratio 13.2 (10-20); Bilirubin,Total 1.4 mg/dl (0.2-1.0); Calcium 8.5 mg/dl (8.6-10.3); Creatinine Clr Calc Pharmacy 67.2 ml/min; Est GFR (African American) 59.2 ml/min; Globulin 2.5 gm/dl (2.5-4.0); Total Protein 5.6 gm/dl (6.0-8.3)
[2023-06-09] MEDS: CHOLECALCIFEROL 5,000 UNITS 125 MCG TAB PO SCH (08:32)
[2023-06-09] MEDS: ESCITALOPRAM OXALATE 10 MG TAB PO SCH (08:32)
[2023-06-09] MEDS: rifAXIMin 550 MG TABLET PO SCH ×2 (08:32→20:54)
[2023-06-09] MEDS: FAMOTIDINE 40 MG TABLET PO SCH (08:32)
[2023-06-09] MEDS: BUMETANIDE 1 MG TAB PO SCH ×2 (08:33→17:35)
[2023-06-09] MEDS: MAGNESIUM OXIDE 400 MG TAB PO SCH ×2 (08:33→20:54)
[2023-06-09] MEDS: SPIRONOLACTONE 100 MG TAB PO SCH ×2 (08:33→17:36)
[2023-06-09] MEDS: rOPINIRole HCL 2 MG TABLET PO SCH ×3 (08:33→20:54)
[2023-06-09] MEDS: TRIAMCINOLONE ACET 0.1% CR 15 GM TUBE EXT SCH ×3 (08:34→20:55)
[2023-06-09] MEDS: PANTOprazole 40 MG in SYRINGE 0 ML IV SCH ×2 (08:34→20:54)
[2023-06-09] MEDS: POTASSIUM CHLORIDE 20 MEQ/15 ML UDC PO SCH ×2 (08:36→20:54)
[2023-06-09] MEDS: INSULIN ASPART PER UNIT CHARGE SC SCH ×4 (08:47→21:00)
[2023-06-09] MEDS: DOCUSATE SODIUM 100 MG CAP PO SCH (09:51)
[2023-06-09] MEDS: LACTULOSE SYRUP 30 GM/45 ML UDP PO SCH ×3 (09:51→20:49)
[2023-06-09] MEDS: METOPROLOL SUCC 25MG EXT REL TAB PO SCH (09:51)
[2023-06-09] MEDS ORDERED: IRON SUCROSE 300 MG in SODIUM CHLORIDE 0.9% 250 ML IV ONE (11:01)
[2023-06-09] MEDS ORDERED: FEXOFENADINE 60 MG TAB PO ONE (15:35)
--- NOTE | 2023-06-09 15:36 | Hospitalist Progress Note ---
Date of Service June 09, 2023 Assessment & Plan (1) Refractory ascites: Plan: weekly paracentesis since early February 2023. this is despite use of bumex BID + aldactone BID. suspect some element of noncompliance with her diuretics, salt restriction, etc. she just had a paracentesis on 06/04/23 at [facility]. required a 2nd one on 06/06/23 (while inpatient) -- 6 L removed. she feels she is ready for another tap - ordered for tomorrow AM; remove 6 L again. will need IV albumin after the tap. cell counts from 06/06/23 paracentesis NOT c/w SBP. cx from 06/06/23 fluid negative to date. spoke with transfer center at [facility] AM of 06/07 -- request for transfer for consideration of TIPS procedure was declined. GI there felt she needs additional pre-TIPS w/u including echo while here, followed by f/u with Dr Calvert this week at GI clinic [facility] (06/13). I spoke today with Dr Hilda Calvert, [facility] Hepatology/GI, who agrees with decision made by Francisco Javier on 06/07. Dr Calvert confirmed that Arjun sees her on Friday of this week - [facility] office. Dr Calvert encouraged compliance with diuretics, salt restriction, etc. cont bumex 2mg BID. cont aldactone 100mg BID. unfortunately her prior paracentesis site on left continues to leak; placed ostomy bag over site. Sent message to Cole Greene from IR for consideration of suture closure tomorrow during her paracentesis if it is still leaking. she has sutures in place from her 06/04/23 paracentesis on right abdomen - these will need to be removed at 10 days out (06/14/23). (2) Dyspnea: Plan: o2 sats 100% in RA. CXR wnl. 2nd to restriction from morbid obesity as well as severe abd distension from massive ascites. mild dyspnea only when she lays in bed. 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 bili 1.2, INR 1.3 -- MELD score of 10 Ammonia level is wnl; she overtly has no symptoms/signs of hepatic encephalopathy Follows with Dr Calvert - [facility]hepatology at [facility] Has upcoming appt with Dr Calvert as noted above Cont lactulose TID Cont rifaximin BID (5) Portal vein thrombosis: Plan: known diagnosis has been on lovenox 150mg once daily over the last several months for this on hold due to H/H trending down early in the stay and need for paracentesis on 06/10 also with splenic vein thrombosis resume lovenox at d/c (6) Hypothyroidism: Plan: TSH was low, and FT4 was high in March this admission -- TSH is high, FT4 is high - sent [place] message to Dr Workman for assistance with this (he sees her in endo clinic) cont synthroid in meantime (7) Opioid dependence: Plan: PDMP shows ongoing scripts for oxycodone and tramadol cont oxy 10mg prn (8) Sleep apnea: Plan: should be on therapy for such but is no longer on Rx (9) Splenic vein thrombosis: Plan: lovenox 150mg daily when felt safe from hemoglobin standpoint and after procedures are complete known diagnosis (10) Hyponatremia: Plan: 2nd to cirrhosis chronic, stable BMP am (11) Esophageal varices: Plan: known diagnosis previously on beta chacha but was ultimately d/c per records should ideally be on PPI - I did add such while here (12) Portal hypertension: (13) History of CVA (cerebrovascular accident): Plan: 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 cont PPI cont pepcid 40mg daily cont carafate but would not prescribe at d/c Plan pt's updated at bedside today care d/w Dr Calvert - [facility] Hepatology corresponded with Cole RAMIREZ (IR) home tomorrow if AM labs stable and following his paracentesis Admission and Anticipated Discharge Date Admission Date: June 06, 2023 Subjective patient reports that her prior paracentesis site on the left continues to leak clear ascitic fluid we placed an ostomy bag over the site and she is remaining dry she is eating better no further nausea/emesis walking the hallway she states she has a scheduled paracentesis with Cole RAMIREZ - IR - tomorrow am tolerated her IV venofer again today during my visit arrived; gave him update did tell them I spoke with Dr Calvert from [facility] she has f/u with Dr Calvert THIS FRIDAY Dr Calvert agrees with Chilo that there is no indication for urgent transfer for TIPS procedure told Niesha that I would consult nutrition to give her dietary information/handouts on low salt diet we briefly discussed high salt foods Review of Systems Review of Systems: gen - no fevers/chills cv - no chest pain pulm - no cough; some dyspnea at times when laying down due to severe ascites skin - stasis rash on abd wall improved with steroid cream Physical Exam Physical Exam: gen - obese, NAD, sitting at side of bed face - hemangioma on left lower face unchanged mouth - MMM neck - no JVD heart - RRR, s1 s2, 2/6 EDUARDO LSB lungs - CTA b/l abd - distension from ascites unchanged or slightly worse; NT; dressing on right side of abdomen intact; paracentesis site L abdomen cont leaking fluid - clear - ostomy bag over site ext - severe edema, 3+ from feet to upper thighs - no change neuro - no asterixis; speech is slow but not dysarthric (baseline) psych - a/o x 3 Results & Data Results & Data Vital Signs (Past 12 Hours) Vital Signs Temp Pulse Resp BP Pulse Ox O2 Del Method 06/09/23 15:28 36.8 C 73 18 124/79 97 Room Air 06/09/23 07:34 36.8 C 77 16 97/58 L 95 Room Air Laboratory Results Laboratory Results - last 24 hr 06/09/23 06/09/23 06/09/23 07:12 07:12 08:05 WBC 9.54 RBC 3.03 L Hgb 8.2 L Hct 25.8 L MCV 85.1 MCH 27.1 MCHC 31.8 L RDW Std Deviation 51.7 H RDW Coeff of Henna 16.8 H Plt Count 100 L MPV 10.3 Sodium 132 L Potassium 4.0 Chloride 98 Carbon Dioxide 28 Anion Gap 6 BUN 17 Creatinine 1.29 H Est Cr Clr Drug Dosing 67.2 Est GFR ( Amer) 59.2 Est GFR (Non-Af Amer) 51.0 BUN/Creatinine Ratio 13.2 Glucose 134 H POC Glucose 127 H Calcium 8.5 L Total Bilirubin 1.4 H AST 52 H ALT 25 Alkaline Phosphatase 75 Total Protein 5.6 L Albumin 3.1 L Globulin 2.5 Albumin/Globulin Ratio 1.2 06/09/23 12:17 WBC RBC Hgb Hct MCV MCH MCHC RDW Std Deviation RDW Coeff of Henna Plt Count MPV Sodium Potassium Chloride Carbon Dioxide Anion Gap BUN Creatinine Est Cr Clr Drug Dosing Est GFR ( Amer) Est GFR (Non-Af Amer) BUN/Creatinine Ratio Glucose POC Glucose 137 H Calcium Total Bilirubin AST ALT Alkaline Phosphatase Total Protein Albumin Globulin Albumin/Globulin Ratio PG Care Time/CCT Total # of Minutes Spent Total Time Spent with Patient: Total time spent is greater than 50% in coordination of care (as documented) at patient's floor/unit and/or counseling patient: Coding Level of Care Code 91304 SUB INP/OBS CARE 3/50MIN Diagnoses Refractory ascites R18.8 Dyspnea R06.00 Anemia D64.9 Cirrhosis K74.60 Portal vein thrombosis I81 Hypothyroidism E03.9 Opioid dependence F11.20 Sleep apnea G47.30 Splenic vein thrombosis I82.890 Hyponatremia E87.1 Esophageal varices I85.00 Portal hypertension K76.6 History of CVA (cerebrovascular accident) Z86.73 Morbid obesity with BMI of 40.0-44.9, adult E66.01; Z68.41 Diabetes mellitus, type 2 E11.9 Nausea & vomiting R11.2
[2023-06-09] MEDS: METOCLOPRAMIDE HCL INJ 5 MG/ML 2 ML VIAL IV PRN (16:26)
[2023-06-09] MEDS: ALPRAZolam 0.5 MG TABLET PO PRN (23:01)
[2023-06-10] MEDS: BENZOCAINE 20% (ORAJEL) 11.9 GM TUBE MT SCH ×5 (04:10→19:39)
[2023-06-10] MEDS: LEVOTHYROXINE SODIUM 150 MCG TABLET PO SCH (05:03)
[2023-06-10] MEDS: LACTULOSE SYRUP 30 GM/45 ML UDP PO SCH ×3 (08:16→20:04)
[2023-06-10 08:37] LABS: Hematocrit (blood only) 25.6 % (37.0-47.0); Hemoglobin 8.1 g/dl (12.0-16.0); Mean Corpuscular Hemoglobin 26.8 pg (25.0-34.0); Mean Corpuscular Hgb Conc 31.6 g/dL (32.0-36.0); Mean Corpuscular Volume 84.8 fL (80.0-100.0); Mean Platelet Volume 9.8 fL (9.4-12.4); Platelet Count 100 K/uL (130-400); RDW Coefficient of Variation 16.9 % (11.5-14.5); Red Blood Count 3.02 M/uL (4.20-5.40); White Blood Count 9.22 K/ul (4.8-10.8)
[2023-06-10 08:38] LABS: BUN Creatinine Ratio 13.2 (10-20); Calcium 8.2 mg/dl (8.6-10.3); Creatinine Clr Calc Pharmacy 76.1 ml/min; Est GFR (African American) 68.7 ml/min; Est GFR (Non-African American) 59.3 ml/min; Magnesium 2.4 mg/dl (1.7-2.4); Potassium 4.1 mmol/L (3.5-5.1)
[2023-06-10] MEDS: INSULIN ASPART PER UNIT CHARGE SC SCH ×4 (08:38→20:37)
[2023-06-10] MEDS: SUCRALFATE 1 GM/10 ML UDC PO SCH ×4 (08:39→20:00)
[2023-06-10] MEDS: DOCUSATE SODIUM 100 MG CAP PO SCH (10:08)
[2023-06-10] MEDS: rifAXIMin 550 MG TABLET PO SCH ×2 (10:09→20:00)
[2023-06-10] MEDS: ESCITALOPRAM OXALATE 10 MG TAB PO SCH (10:10)
[2023-06-10] MEDS: POTASSIUM CHLORIDE 20 MEQ/15 ML UDC PO SCH ×2 (10:10→20:00)
[2023-06-10] MEDS: METOPROLOL SUCC 25MG EXT REL TAB PO SCH (10:10)
[2023-06-10] MEDS: FAMOTIDINE 40 MG TABLET PO SCH (10:10)
[2023-06-10] MEDS: MAGNESIUM OXIDE 400 MG TAB PO SCH ×2 (10:11→20:00)
[2023-06-10] MEDS: BUMETANIDE 1 MG TAB PO SCH ×2 (10:11→17:07)
[2023-06-10] MEDS: CHOLECALCIFEROL 5,000 UNITS 125 MCG TAB PO SCH (10:11)
[2023-06-10] MEDS: SPIRONOLACTONE 100 MG TAB PO SCH ×2 (10:12→17:07)
[2023-06-10] MEDS: rOPINIRole HCL 2 MG TABLET PO SCH ×3 (10:12→20:00)
[2023-06-10] MEDS: TRIAMCINOLONE ACET 0.1% CR 15 GM TUBE EXT SCH ×3 (10:14→20:00)
[2023-06-10] MEDS: PANTOprazole 40 MG TAB PO SCH (10:16)
[2023-06-10] MEDS: oxyCODONE HCL IR 5 MG TAB (IMMEDIATE RELEASE) PO PRN (10:25)
--- NOTE | 2023-06-10 12:45 | Ultrasound Report ---
Ultrasound-guided paracentesis INDICATION: Ascites PROCEDURE: Procedure and risks were explained. Informed consent was obtained. A final timeout was com pleted. The abdomen was prepped and draped in sterile fashion. 1% buffered lidocaine was utilized for skin anesthesia. Utilizing ultrasound guidance, a 5 Indian safety centesis catheter was advanced into the left lower q uadrant pocket of ascites. Ultrasound images were obtained. A total of 6 L of ascites fluid was remov ed, with 1 L sent to lab for analysis. The catheter was removed and one 2-0 silk suture was utilized to close the puncture site. The patient tolerated the procedure well. Vital signs will be monitored o n the floor. IMPRESSION: Paracentesis as above. Performed, dictated, and signed by Marvin Greene PA-C; to be co-signed by Dr. Lorenzo Ocampo. Electronically signed by: Lorenzo Ocampo M.D. 06/10/2023 1:26 PM
--- NOTE | 2023-06-10 18:55 | Hospitalist Progress Note ---
Date of Service June 10, 2023 Assessment & Plan (1) Refractory ascites: Plan: weekly paracentesis since early February 2023. this is despite use of bumex BID + aldactone BID. suspect some element of noncompliance with her diuretics, salt restriction, etc. she just had a paracentesis on 06/04/23 at [facility]. required a 2nd one on 06/06/23 (while inpatient) -- 6 L removed. she feels she is ready for another tap - ordered for tomorrow AM; remove 6 L again. will need IV albumin after the tap. cell counts from 06/06/23 paracentesis NOT c/w SBP. cx from 06/06/23 fluid negative to date. spoke with transfer center at [facility] AM of 06/07 -- request for transfer for consideration of TIPS procedure was declined. GI there felt she needs additional pre-TIPS w/u including echo while here, followed by f/u with Dr Calvert this week at GI clinic [facility] (06/13). Dr. Rodriguez spoke with Dr Hilda Calvert, [facility] Hepatology/GI, who agrees with decision made by Francisco Javier on 06/07. Dr Calvert confirmed that rAjun sees her on Friday of this week - [facility] office. Dr Calvert encouraged compliance with diuretics, salt restriction, etc. cont bumex 2mg BID. cont aldactone 100mg BID. she has sutures in place from her 06/04/23 paracentesis on right abdomen - these will need to be removed at 10 days out (06/14/23). (2) Dyspnea: Plan: o2 sats 100% in RA. CXR wnl. 2nd to restriction from morbid obesity as well as severe abd distension from massive ascites. mild dyspnea only when she lays in bed. 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 bili 1.2, INR 1.3 -- MELD score of 10 Ammonia level is wnl; she overtly has no symptoms/signs of hepatic encephalopathy Follows with Dr Calvert - faye GI/hepatology at [facility] Has upcoming appt with Dr Calvert as noted above Cont lactulose TID Cont rifaximin BID (5) Portal vein thrombosis: Plan: known diagnosis has been on lovenox 150mg once daily over the last several months for this on hold due to H/H trending down early in the stay and need for paracentesis on 06/10 also with splenic vein thrombosis resume lovenox at d/c (6) Hypothyroidism: Plan: TSH was low, and FT4 was high in March this admission -- TSH is high, FT4 is high - sent [place] message to Dr Workman for assistance with this (he sees her in endo clinic) cont synthroid in meantime (7) Opioid dependence: Plan: PDMP shows ongoing scripts for oxycodone and tramadol cont oxy 10mg prn (8) Sleep apnea: Plan: should be on therapy for such but is no longer on Rx (9) Splenic vein thrombosis: Plan: lovenox 150mg daily when felt safe from hemoglobin standpoint and after procedures are complete known diagnosis (10) Hyponatremia: Plan: 2nd to cirrhosis chronic, stable BMP am (11) Esophageal varices: Plan: known diagnosis previously on beta chacha but was ultimately d/c per records should ideally be on PPI - I did add such while here (12) Portal hypertension: (13) History of CVA (cerebrovascular accident): Plan: 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 cont PPI cont pepcid 40mg daily cont carafate but would not prescribe at d/c Plan home tomorrow Admission and Anticipated Discharge Date Admission Date: June 06, 2023 Subjective Patient feels well. Complains of oozing from previous paracentesis site. She had a paracentesis done today. Review of Systems Review of Systems: All systems reviewed & are unremarkable except as noted in Subjective Physical Exam Physical Exam: General: Awake, conversant Heart: S1, S2/regular rate and rhythm, no murmur rubs or gallops Lungs: Clear to auscultation bilaterally. Normal effort Abdomen: Soft/nontender/distended. Positive ascites . positive bowel sounds. Extremities: No clubbing/cyanosis. No edema Behavior: Appropriate, cooperative Results & Data Results & Data Vital Signs (Past 12 Hours) Vital Signs Temp Pulse Resp BP Pulse Ox O2 Del Method 06/10/23 15:24 72 110/60 100 Room Air 06/10/23 15:17 36.5 C 121 H 18 93/55 L 99 Room Air 06/10/23 12:44 36.7 C 76 18 118/58 L 97 Room Air 06/10/23 12:13 36.8 C 78 16 122/74 98 Room Air 06/10/23 11:32 36.8 C 75 16 96/56 L 94 Room Air 06/10/23 10:19 36.9 C 89 19 111/64 100 Room Air 06/10/23 07:41 36.7 C 83 16 110/62 96 Room Air Laboratory Results Abnormal lab results 06/09/23 06/10/23 06/10/23 Range/Units 20:29 07:44 08:10 RBC 3.02 L (4.20-5.40) M/uL Hgb 8.1 L (12.0-16.0) g/dl Hct 25.6 L (37.0-47.0) % MCHC 31.6 L (32.0-36.0) g/dL RDW Std Deviation 51.0 H (36.4-46.3) fL RDW Coeff of Henna 16.9 H (11.5-14.5) % Plt Count 100 L (130-400) K/uL Sodium (136-145) mmol/L Glucose (70-99(Fasting)) mg/dl POC Glucose 180 H 146 H (70-99) mg/dl Calcium (8.6-10.3) mg/dl 06/10/23 06/10/23 06/10/23 Range/Units 08:10 11:33 16:27 RBC (4.20-5.40) M/uL Hgb (12.0-16.0) g/dl Hct (37.0-47.0) % MCHC (32.0-36.0) g/dL RDW Std Deviation (36.4-46.3) fL RDW Coeff of [place]na (11.5-14.5) % Plt Count (130-400) K/uL Sodium 132 L (136-145) mmol/L Glucose 122 H (70-99(Fasting)) mg/dl POC Glucose 127 H 129 H (70-99) mg/dl Calcium 8.2 L (8.6-10.3) mg/dl Diagnostic Findings Paracentesis Ultrasound 06/10/23 07:30 Ultrasound-guided paracentesis INDICATION: Ascites PROCEDURE: Procedure and risks were explained. Informed consent was obtained. A final timeout was completed. The abdomen was prepped and draped in sterile fashion. 1% buffered lidocaine was utilized for skin anesthesia. Utilizing ultrasound guidance, a 5 Tamazight safety centesis catheter was advanced into the left lower quadrant pocket of ascites. Ultrasound images were obtained. A total of 6 L of ascites fluid was removed, with 1 L sent to lab for analysis. The catheter was removed and one 2-0 silk suture was utilized to close the puncture site. The patient tolerated the procedure well. Vital signs will be monitored on the floor. IMPRESSION: Paracentesis as above. Performed, dictated, and signed by Marvin Greene PA-C; to be co-signed by Dr. Lorenzo Ocampo. Electronically signed by: Lorenzo Ocampo M.D. 06/10/2023 1:26 PM PG Care Time/CCT Total # of Minutes Spent Total Time Spent with Patient: Total time spent is greater than 50% in coordination of care (as documented) at patient's floor/unit and/or counseling patient: Coding Level of Care Code 99568 SUB INP/OBS CARE 2/35MIN Diagnoses Refractory ascites R18.8 Dyspnea R06.00 Anemia D64.9 Cirrhosis K74.60 Portal vein thrombosis I81 Hypothyroidism E03.9 Opioid dependence F11.20 Sleep apnea G47.30 Splenic vein thrombosis I82.890 Hyponatremia E87.1 Esophageal varices I85.00 Portal hypertension K76.6 History of CVA (cerebrovascular accident) Z86.73 Morbid obesity with BMI of 40.0-44.9, adult E66.01; Z68.41 Diabetes mellitus, type 2 E11.9 Nausea & vomiting R11.2
[2023-06-10] MEDS ORDERED: ALBUMIN 25% 12.5 GM/50 ML VIAL IV ONE (19:11)
[2023-06-10] MEDS: METOCLOPRAMIDE HCL INJ 5 MG/ML 2 ML VIAL IV PRN (20:03)
[2023-06-11] MEDS: METHOCARBAMOL 750 MG TABLET PO PRN (00:01)
[2023-06-11] MEDS: oxyCODONE HCL IR 5 MG TAB (IMMEDIATE RELEASE) PO PRN ×2 (00:07→11:38)
[2023-06-11] MEDS: ALPRAZolam 0.5 MG TABLET PO PRN (00:07)
[2023-06-11] MEDS: BENZOCAINE 20% (ORAJEL) 11.9 GM TUBE MT SCH ×4 (00:30→11:39)
[2023-06-11] MEDS: LEVOTHYROXINE SODIUM 150 MCG TABLET PO SCH (05:41)
[2023-06-11] MEDS: SUCRALFATE 1 GM/10 ML UDC PO SCH ×2 (08:09→11:39)
[2023-06-11] MEDS: ESCITALOPRAM OXALATE 10 MG TAB PO SCH (08:09)
[2023-06-11] MEDS: SPIRONOLACTONE 100 MG TAB PO SCH (08:09)
[2023-06-11] MEDS: CHOLECALCIFEROL 5,000 UNITS 125 MCG TAB PO SCH (08:09)
[2023-06-11] MEDS: PANTOprazole 40 MG TAB PO SCH (08:10)
[2023-06-11] MEDS: MAGNESIUM OXIDE 400 MG TAB PO SCH (08:10)
[2023-06-11] MEDS: POTASSIUM CHLORIDE 20 MEQ/15 ML UDC PO SCH (08:10)
[2023-06-11] MEDS: METOPROLOL SUCC 25MG EXT REL TAB PO SCH (08:10)
[2023-06-11] MEDS: rOPINIRole HCL 2 MG TABLET PO SCH ×2 (08:10→14:43)
[2023-06-11] MEDS: BUMETANIDE 1 MG TAB PO SCH (08:10)
[2023-06-11] MEDS: rifAXIMin 550 MG TABLET PO SCH (08:10)
[2023-06-11] MEDS: FAMOTIDINE 40 MG TABLET PO SCH (08:10)
[2023-06-11] MEDS: TRIAMCINOLONE ACET 0.1% CR 15 GM TUBE EXT SCH ×2 (08:12→14:43)
[2023-06-11] MEDS: LACTULOSE SYRUP 30 GM/45 ML UDP PO SCH ×2 (08:14→14:43)
[2023-06-11] MEDS: INSULIN ASPART PER UNIT CHARGE SC SCH ×2 (08:53→12:44)
[2023-06-11] MEDS: DOCUSATE SODIUM 100 MG CAP PO SCH (08:55)
[2023-06-11] MEDS: METOCLOPRAMIDE HCL INJ 5 MG/ML 2 ML VIAL IV PRN (10:16)
--- NOTE | 2023-06-11 13:00 | Discharge Summary ---
Date of Service June 11, 2023 Admission HPI Per Admitting Provider Niesha reports she has been having paracentesis every or with Cole who she reports she really likes. He was unfortunately away this week, but still had a therapeutic paracentesis yesterday with radiology. Took off 7.8L yesterday, largest volume she has had to have removed was ~9L. She has had 2x leakes which improved with suturing at prior paracentesis sites. She reports she feels very weak and confused, and cannot ambulate due to severe shortness of breath due to fullness in her abdomen. She reports she feels that she still has a large amount of fluid, notices a weight, and is too weak to return home. Her L side was reportedly dry to US, but R sided fluid pocket could not be accessed and did not appear amenable to drainage at that time. Medical History: Reviewed Medications: Reviewed Surgical History: Reviewed Family history: Reviewed Allergies: Reviewed Social History: Reviewed Code Status: Full Code Admission Exam Per Admitting Provider General: Fatigued but well oriented .NAD. Cooperative. HEENT: Atraumatic, normocephalic. Pulm: Diminished. -wheezes, -rales, -rhonchi. Symmetrical chest rise. No increased work of breathing. No respiratory distress. Cardiac: RRR, -mrg. Radial pulses intact and symmetrical. Abdominal: Tensely distended. +fluid wave. No warmth/tenderness. Ext: Warm/dry. +Pitting edema of the legs bilaterally. Principal Diagnosis 1. refractory ascites Patient to follow-up with [facility] hepatology/GI Dr. Hilda Calvert 2. GILLESPIE cirrhosis Discharge Exam General: Awake, conversant Heart: S1, S2/regular rate and rhythm, no murmur rubs or gallops Lungs: Clear to auscultation bilaterally. Normal effort Abdomen: Soft/nontender/distended. Positive ascites . positive bowel sounds. Extremities: No clubbing/cyanosis. trace bilateral edema Behavior: Appropriate, cooperative Discharge Data Allergies Allergy/AdvReac Type Severity Reaction Status Date / Time codeine Allergy Unknown Hives, Verified 06/05/23 15:52 [From Tylenol-Codeine #3] skin redness (Tyenol #3) Consultations 06/05/23 14:19 ED Decision to Admit Stat Ordered Studies 06/06/23 12:34 IR paracentesis abd w/img US Urgent 06/10/23 07:30 IR paracentesis abd w/img US Routine Hospital Course (1) Refractory ascites: weekly paracentesis since early February 2023. this is despite use of bumex BID + aldactone BID. suspect some element of noncompliance with her diuretics, salt restriction, etc. she just had a paracentesis on 06/04/23 at [facility]. required a 2nd one on 06/06/23 (while inpatient) -- 6 L removed. she had another paracentesis done on 06/10 followed by IV albumin cell counts from 06/06/23 paracentesis NOT c/w SBP. cx from 06/06/23 fluid negative to date. spoke with transfer center at [facility] AM of 06/07 -- request for transfer for consideration of TIPS procedure was declined. GI there felt she needs additional pre-TIPS w/u including echo while here, followed by f/u with Dr Calvert this week at GI clinic [facility] (06/13). Dr. Rodriguez spoke with Dr Hilda Calvert, [facility] Hepatology/GI, who agrees with decision made by Francisco Javier on 06/07. Dr Calvert confirmed that Arjun sees her on Friday of this week - [facility] office. Dr Calvert encouraged compliance with diuretics, salt restriction, etc. cont bumex 2mg BID. cont aldactone 100mg BID. she has sutures in place from her 06/04/23 paracentesis on right abdomen - these will need to be removed at 10 days out (06/14/23). (2) Dyspnea: o2 sats 100% in RA. CXR wnl. 2nd to restriction from morbid obesity as well as severe abd distension from massive ascites. mild dyspnea only when she lays in bed. (3) Anemia: acute/chronic iron deficient Hb baseline 8-9 6.8 - lowest Hb here - s/p 1 unit PRBCs appropriate response to such with Hemoglobin in the 8's since stools w/o melena or BRBPR ; no overt GI bleeding; holding lovenox Fe studies c/w Fe def - gave 3rd dose of 300mg of IV venofer today; stop after the 3rd dose B12/folate both normal in January 2023 (4) Cirrhosis: 2nd to GILLESPIE cirrhosis Decompensated - massive ascites, severe LE edema Sodium 132, T. bili 1.2, INR 1.3 -- MELD score of 10 Ammonia level is wnl; she overtly has no symptoms/signs of hepatic encephalopathy Follows with Dr Calvert - faye GI/hepatology at [facility] Has upcoming appt with Dr Calvert as noted above Cont lactulose TID Cont rifaximin BID (5) Portal vein thrombosis: known diagnosis has been on lovenox 150mg once daily over the last several months for this on hold due to H/H trending down early in the stay and need for paracentesis on 06/10 also with splenic vein thrombosis resume lovenox at d/c (6) Hypothyroidism: TSH was low, and FT4 was high in March this admission -- TSH is high, FT4 is high - sent [place] message to Dr Workman for assistance with this (he sees her in endo clinic) cont synthroid in meantime (7) Opioid dependence: PDMP shows ongoing scripts for oxycodone and tramadol cont oxy 10mg prn (8) Sleep apnea: should be on therapy for such but is no longer on Rx (9) Splenic vein thrombosis: lovenox 150mg daily when felt safe from hemoglobin standpoint and after procedures are complete known diagnosis (10) Hyponatremia: 2nd to cirrhosis chronic, stable BMP am (11) Esophageal varices: known diagnosis previously on beta chacha but was ultimately d/c per records should ideally be on PPI - I did add such while here (12) Portal hypertension: (13) History of CVA (cerebrovascular accident): 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 previously on plavix - has been d/c (14) Morbid obesity with BMI of 40.0-44.9, adult: BMI low 40s (15) Diabetes mellitus, type 2: a1c <5% in March suspect this may not be accurate due to anemia and frequent PRBC infusions with that said glucose levels have been wnl follow (16) Nausea & vomiting: chronic reglan working better than zofran - cont with former gastroparesis?? cont PPI cont pepcid 40mg daily cont carafate Plan home today Total Time Total Time Spent Total Time Spent (In Minutes): 35 Discharge Plan Discharge Items Patient Disposition: Home - Home Health Services Reason For Visit: REFRACTORY ASCITES, ACUTE/CHRONIC ANEMIA Discharge Diagnosis: 1. refractory ascites Patient to follow-up with [facility]/GI Dr. Hilda Calvert 2. GILLESPIE cirrhosis Activity: Resume your previous activity Non-emergency contact: Primary Care Provider Call non-emergency contact if: you have any medication questions and your symptoms worsen Follow-up/Referrals: Endy Stanley D.O. [Primary Care Provider] - 06/16/23 10:30 am Diet: Carb Consistent or DM2 and Low Sodium (2gm) Addtl Attending Provider Instructions: Advised to follow-up with PCP in 1 week Advised to follow-up with [facility]GI. Confirmed that you have an appointment this Wednesday 06/13. Emphasized on the importance of compliance with diuretics and salt restriction. Pending Studies at Discharge: No Stand-Alone Forms: [facility] Medications and DC Order Prescriptions: New pantoprazole 40 mg Tablet,Delayed Release (Dr/Ec) 40 mg PO QAM 14 Days Qty: 14 0RF sucralfate 100 mg/mL Suspension 1 g PO ACHS 7 Days Qty: 70 0RF Continued acetaminophen 500 mg capsule 500 mg PO Q6H PRN (Reason: Pain) docusate sodium 100 mg capsule 100 mg PO DAILY levothyroxine 300 mcg tablet 300 mcg PO DAILY magnesium oxide 400 mg (241.3 mg magnesium) Tablet 400 mg PO BID Qty: 60 0RF bumetanide 1 mg tablet 2 mg PO BID ondansetron 8 mg tablet,disintegrating 8 mg translingual Q8 PRN (Reason: Nausea) oxycodone 15 mg tablet 15 mg PO Q6 PRN (Reason: Pain) methocarbamol 750 mg Tablet 750 mg PO TID PRN (Reason: muscle spasms) ropinirole 4 mg tablet 4 mg PO TID escitalopram oxalate 10 mg tablet 10 mg PO DAILY alprazolam 1 mg tablet 1 mg PO BID PRN (Reason: Anxiety) valacyclovir 500 mg Tablet 500 mg PO Q8 PRN (Reason: .BREAKOUTS) famotidine 20 mg Tablet 40 mg PO DAILY metoprolol succinate [Toprol XL] 25 mg Tablet Extended Release 24 Hr 12.5 mg PO DAILY Mouth Kote Aerosol,[place] 1 spray MUCOUS MEMBRANE QID PRN (Reason: .DRY MOUTH) cholecalciferol (vitamin D3) [Vitamin D3] 125 mcg (5,000 unit) Tablet 125 mcg PO DAILY Xifaxan 550 mg tablet 550 mg PO Q12 Tradjenta 5 mg tablet 5 mg PO DAILY Combivent Respimat 20-100 mcg/actuation Mist 1 puff INHALATION QID PRN (Reason: Other) Rx Instructions: space evenly during waking hours Kristalose Powder 1 dose PO TID Rx Instructions: 30 GRAM PER 1.5 PACKET. Does not take as much if she has more then 3 bms or gets diarrhea. Tums Gas Relief 750mg/80mg 1 tab PO Q6 potassium chloride 20 mEq/15 mL liquid 20 meq PO BID Qty: 473 0RF Rx Instructions: Patient thinks she is taking 40 meq bid spironolactone 100 mg Tablet 100 mg PO BID17 Qty: 60 5RF enoxaparin 100 mg/mL syringe 150 mg subcut DAILY Qty: 45 3RF Rx Instructions: take once a day if you have 150mg syringes substitute and make one month supply Discharge Orders: Discharge Order (Routine); Ordered 06/11/23 Ordered By: Jose Heath Admission Data Admit Date/Time: 06/06/23 18:31 Attending Provider: Jose Heath Admit Provider: Davide Galvez Primary Care Provider: Endy Stanley Other Providers: Davide Galvez ; [place] Other Interventions: Discharge Summary Assessment (RN) Last Done: 06/11/23 13:20 Coding Level of Care Code 99306 INP/OBS DISCH >30 MIN Diagnoses Refractory ascites R18.8 Dyspnea R06.00 Anemia D64.9 Cirrhosis K74.60 Portal vein thrombosis I81 Hypothyroidism E03.9 Opioid dependence F11.20 Sleep apnea G47.30 Splenic vein thrombosis I82.890 Hyponatremia E87.1 Esophageal varices I85.00 Portal hypertension K76.6 History of CVA (cerebrovascular accident) Z86.73 Morbid obesity with BMI of 40.0-44.9, adult E66.01; Z68.41 Diabetes mellitus, type 2 E11.9 Nausea & vomiting R11.2
== END 2023-06-11 15:40 | disposition home health service (06) | DRG 432 ==
LOC: ED 12:03 → EDINP 12:03 → SUATTDRO 15:56 → EDINP 18:03 → 3N 22:36 → SUATTDRO 06-06 18:31

== ENCOUNTER 2023-06-15 10:05 | Inpatient (IN) ==
--- NOTE | 2023-06-15 11:11 | XRay Report ---
XR chest 1V portable CLINICAL HISTORY: ams TECHNIQUE: Single frontal radiograph of the chest was obtained. Comparison: Comparison is made to chest radiograph 06/05/2023 FINDINGS: Cervical fixation hardware is seen. The cardiomediastinal silhouette is normal. The lungs are clear. No evidence of pleural effusion or pneumothorax. IMPRESSION: No acute chest disease. ACT 112: Negative or not required by law. Electronically signed by: Mohit Perez M.D. 06/15/2023 11:10 AM
[2023-06-15 11:15] LABS: Basophils # (auto) 0.06 K/uL (0.00-0.20); Eosinophils # (auto) 0.26 K/uL (0.00-0.50); Eosinophils % (auto) 4.5 %; Hematocrit (blood only) 29.4 % (37.0-47.0); Hemoglobin 9.3 g/dl (12.0-16.0); Immature Granulocytes # (auto) 0.02 K/uL (0.01-0.20); Immature Granulocytes % (auto) 0.3 %; Lymphocytes # (auto) 0.88 K/uL (1.20-3.40); Lymphocytes % (auto) 15.1 %; Mean Corpuscular Hemoglobin 27.5 pg (25.0-34.0); Mean Corpuscular Hgb Conc 31.6 g/dL (32.0-36.0); Monocytes # (auto) 0.56 K/uL (0.11-0.59); Monocytes % (auto) 9.6 %; Neutrophils # (auto) 4.04 K/uL (1.40-6.50); Neutrophils % (auto) 69.5 %; Platelet Count 72 K/uL (130-400); RDW Coefficient of Variation 19.9 % (11.5-14.5); RDW Standard Deviation 61.4 fL (36.4-46.3); Red Blood Count 3.38 M/uL (4.20-5.40); White Blood Count 5.82 K/ul (4.8-10.8)
[2023-06-15 11:33] LABS: Albumin Level 3.4 gm/dl (3.4-5.0); BUN Creatinine Ratio 18.2 (10-20); Bilirubin Direct 0.8 mg/dl (0-0.2); Bilirubin,Total 2.6 mg/dl (0.2-1.0); Creatinine Clr Calc Pharmacy 92.8 ml/min; Est GFR (African American) 93.9 ml/min; Magnesium 2.1 mg/dl (1.7-2.4); Potassium 3.5 mmol/L (3.5-5.1); Total Protein 6.3 gm/dl (6.0-8.3)
[2023-06-15 11:38] LABS: Base Excess VBG 4.7 mEq/L; HCO3 VBG 29 mmol/L; Oxygen Saturation VBG < 60.0 %; PCO2 VBG 42 mmHg (38-50); PO2 VBG 34 mmHg; pH VBG 7.45 (7.36-7.41)
[2023-06-15 11:40] LABS: INR 1.4 (0.9-1.1); Partial Thromboplastin Time 27.4 Seconds (21.0-31.0); Prothrombin Time 14.9 Seconds (9.0-12.0)
--- NOTE | 2023-06-15 12:04 | CT Scan Report ---
CT head/brain wo con CLINICAL HISTORY: ams Technique: Contiguous axial CT images of the head were acquired from the base of the skull to the jean carlos salvador without intravenous contrast administration. Images were viewed in brain, subdural and bone [facility]. Automated dose lowering techniques and/or adjustment according to patient size were utilized for this exam. Comparison: Comparison is made to CT head 05/07/2023 Findings: The ventricles, basal cisterns, and cerebral sulci are normal. There is no acute intracranial hemorrh age or evidence of acute territorial infarction. Neither mass effect, shift of the midline structures , nor abnormal extra-axial fluid collections are shown. Calcification of the falx is seen. Imaged portions of the paranasal sinuses and mastoid air cells are clear. The orbits appear normal. There are no acute fractures of the calvaria or scalp swelling. Impression: No acute intracranial hemorrhage, no evidence of acute territorial infarction or other acute intracra nial disease process. ACT 112: Negative or not required by law. Electronically signed by: Mohit Perez M.D. 06/15/2023 12:02 PM
[2023-06-15] MEDS ORDERED: LACTULOSE SYRUP 30 GM/45 ML UDP PO STA (12:16)
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
[2023-06-15] MEDS ORDERED: cefTRIAXone SODIUM 1,000 MG in DEXTROSE 5 % MINI-B 50 ML IV STA (13:06)
[2023-06-15] MEDS ORDERED: cefTRIAXone SODIUM 2,000 MG in DEXTROSE 5 % MINI-B 50 ML IV STA (13:13)
[2023-06-15] MEDS ORDERED: PANTOprazole 40 MG TAB PO STA (13:20)
[2023-06-15] MEDS ORDERED: rifAXIMin 550 MG TABLET PO STA (13:26)
[2023-06-15] MEDS ORDERED: METOPROLOL SUCC 50MG EXT REL TAB PO STA (13:26)
[2023-06-15] MEDS ORDERED: FAMOTIDINE 40 MG TABLET PO ONE (13:30)
[2023-06-15] MEDS ORDERED: GLUCAGON FOR INJ 1 MG VIAL SQ PRN (13:38)
[2023-06-15] MEDS ORDERED: GLUCOSE 40% GEL 15 GM TUBE PO PRN (13:38)
[2023-06-15] MEDS ORDERED: DEXTROSE 50% 50 ML SYRINGE IV PRN (13:38)
[2023-06-15] MEDS ORDERED: GLUCOSE 10 TAB/TUBE PO PRN (13:38)
[2023-06-15] MEDS ORDERED: CARBOHYDRATES FOR HYPOGLYCEMIA PO PRN (13:38)
[2023-06-15 14:08] LABS: C Reactive Protein 0.64 mg/dl (0-0.5)
[2023-06-15 14:30] LABS: Appearance Urine Clear (Clear); Bilirubin Urine Negative (Negative); Blood Urine Negative (Negative); Color Urine Dark Yellow; Glucose Urine UA Negative (Negative); Ketones Urine Negative (Negative); Leukocyte Esterase Urine Negative (Negative); Nitrite Urine Negative (Negative); Protein Urine Negative (Negative); Specific Gravity Urine 1.024 (1.000-1.030); Urobilinogen Urine Negative (Negative); pH Urine 5.5 (4.5-7.5)
[2023-06-15] MEDS ORDERED: OPTIRAY 320 100ml IV ONE (15:17)
--- NOTE | 2023-06-15 15:36 | CT Scan Report ---
CT abd pelvis IV con only CLINICAL HISTORY: cirrhosis, concern for SBO/abd infection TECHNIQUE: Helical axial images of the abdomen and pelvis were obtained and displayed. Automated dose lowering techniques and/or adjustment according to patient size were utilized for this exam. This e xam was performed with intravenous contrast. CT DOSE: 1392.54 mGy.cm COMPARISON: Comparison is made to CT abdomen pelvis 03/30/2023 FINDINGS: Lower chest: No acute abnormality. Liver: Nodular contour of the liver is seen compatible with cirrhosis. Gallbladder and biliary tree: Patient is status post cholecystectomy. No intra- or extrahepatic bilia ry ductal dilation. Pancreas: Unremarkable, no focal lesions. Spleen: Splenomegaly is noted, the spleen measures 17.6 cm. Adrenals: Unremarkable. Kidneys and ureters: Unremarkable. Bladder: Limited evaluation due to underdistention. Reproductive organs: Patient is status post hysterectomy. Bowel: Patient is status post gastric surgery. No evidence of small bowel obstruction or other acute abnormality. Lymph nodes Retroperitoneal: Unremarkable. Pelvic: Unremarkable. Mesenteric: Unremarkable. Peritoneum: Moderate to large ascites noted. Vessels: Varices are seen most prominently about the spleen. There is recanalization of the umbilical vein. Abdominal wall: Body wall edema is seen. Soft tissue densities in the anterior pannus may represent i njection granulomata. Bones: Unremarkable. IMPRESSION: 1. No acute abnormalities and in particular no evidence of small bowel obstruction. 2. Cirrhosis with stigmata of portal hypertension. 3. Moderate to large ascites and body wall edema. ACT 112: Negative or not required by law. Electronically signed by: Mohit Perez M.D. 06/15/2023 3:34 PM
[2023-06-15] MEDS ORDERED: IPRATROPIUM BROMIDE/ALBUTEROL respimat INH INH PRN (15:42)
[2023-06-15] MEDS ORDERED: ARTIFICIAL SALIVA MUCOUS MEMBRANE PRN (15:42)
[2023-06-15] MEDS ORDERED: BUMETANIDE 4 MG in SYRINGE 0 ML IV ONE (16:30)
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
[2023-06-15] MEDS: rOPINIRole HCL 2 MG TABLET PO SCH ×2 (16:52→20:05)
[2023-06-15] MEDS ORDERED: BUMETANIDE 1 MG TAB PO SCH (17:00)
[2023-06-15] MEDS: INSULIN ASPART PER UNIT CHARGE SC SCH ×2 (18:21→21:18)
[2023-06-15] MEDS: CALCIUM CARBONATE 500 MG CHEWABLE TAB PO SCH (18:22)
[2023-06-15] MEDS: SUCRALFATE 1 GM/10 ML UDC PO SCH ×2 (18:22→20:08)
[2023-06-15] MEDS: SPIRONOLACTONE 100 MG TAB PO SCH (18:22)
[2023-06-15] MEDS: MAGNESIUM OXIDE 400 MG TAB PO SCH (20:06)
[2023-06-15] MEDS: LACTULOSE SYRUP 30 GM/45 ML UDP PO SCH ×2 (20:06→22:13)
[2023-06-15] MEDS: rifAXIMin 550 MG TABLET PO SCH (20:06)
[2023-06-15] MEDS: POTASSIUM CHLORIDE 20 MEQ/15 ML UDC PO SCH (20:08)
[2023-06-15] MEDS: Ipratropium HFA Inhaler (Combivent Respimat P&T Subs) INH SCH (20:13)
[2023-06-15] MEDS: Albuterol HFA 8 GM Inhaler (Combivent Respimat P&T Subs) INH SCH (20:14)
[2023-06-15] MEDS ORDERED: KETOROLAC TROMETHAMINE 15 MG/ML VIAL IV ONE (21:14)
[2023-06-15] MEDS: ACETAMINOPHEN 500 MG TAB PO PRN (21:18)
[2023-06-15] MEDS: BUMETANIDE 4 MG in SYRINGE 0 ML IV SCH (21:19)
[2023-06-15] MEDS: ALPRAZolam 0.5 MG TABLET PO PRN (21:20)
[2023-06-16] MEDS: CALCIUM CARBONATE 500 MG CHEWABLE TAB PO SCH ×5 (01:25→22:26)
[2023-06-16 06:06] LABS: Basophils # (auto) 0.04 K/uL (0.00-0.20); Eosinophils % (auto) 7.3 %; Hemoglobin 8.5 g/dl (12.0-16.0); Immature Granulocytes # (auto) 0.02 K/uL (0.01-0.20); Immature Granulocytes % (auto) 0.5 %; Lymphocytes # (auto) 0.72 K/uL (1.20-3.40); Lymphocytes % (auto) 17.6 %; Mean Corpuscular Hemoglobin 28.1 pg (25.0-34.0); Mean Corpuscular Hgb Conc 32.7 g/dL (32.0-36.0); Mean Corpuscular Volume 85.8 fL (80.0-100.0); Mean Platelet Volume 9.7 fL (9.4-12.4); Monocytes # (auto) 0.46 K/uL (0.11-0.59); Monocytes % (auto) 11.2 %; Neutrophils # (auto) 2.56 K/uL (1.40-6.50); Neutrophils % (auto) 62.4 %; Platelet Count 52 K/uL (130-400); RDW Coefficient of Variation 20.2 % (11.5-14.5); RDW Standard Deviation 61.5 fL (36.4-46.3); Red Blood Count 3.03 M/uL (4.20-5.40)
[2023-06-16 06:24] LABS: Albumin Globulin Ratio 1.1 (0.9-2); Albumin Level 2.9 gm/dl (3.4-5.0); BUN Creatinine Ratio 13.8 (10-20); Calcium 8.3 mg/dl (8.6-10.3); Creatinine Clr Calc Pharmacy 86.9 ml/min; Est GFR (African American) 86.7 ml/min; Est GFR (Non-African American) 74.8 ml/min; Globulin 2.6 gm/dl (2.5-4.0); Magnesium 1.9 mg/dl (1.7-2.4); Potassium 3.1 mmol/L (3.5-5.1); Total Protein 5.5 gm/dl (6.0-8.3)
[2023-06-16 06:29] LABS: Anisocytosis Present; Tear Drop Cells 1+
[2023-06-16] MEDS: LEVOTHYROXINE SODIUM 150 MCG TABLET PO SCH (06:40)
[2023-06-16 06:42] LABS: INR 1.5 (0.9-1.1); Prothrombin Time 16.1 Seconds (9.0-12.0)
[2023-06-16] MEDS: Ipratropium HFA Inhaler (Combivent Respimat P&T Subs) INH SCH (07:05)
[2023-06-16] MEDS: Albuterol HFA 8 GM Inhaler (Combivent Respimat P&T Subs) INH SCH (07:05)
[2023-06-16] MEDS: SPIRONOLACTONE 100 MG TAB PO SCH ×2 (08:50→17:28)
[2023-06-16] MEDS: PANTOprazole 40 MG TAB PO SCH (08:50)
[2023-06-16] MEDS: rOPINIRole HCL 2 MG TABLET PO SCH ×3 (08:50→21:28)
[2023-06-16] MEDS: MAGNESIUM OXIDE 400 MG TAB PO SCH ×2 (08:51→21:27)
[2023-06-16] MEDS: SUCRALFATE 1 GM/10 ML UDC PO SCH ×4 (08:51→21:29)
[2023-06-16] MEDS: BUMETANIDE 4 MG in SYRINGE 0 ML IV SCH ×2 (08:51→21:27)
[2023-06-16] MEDS: DOCUSATE SODIUM 100 MG CAP PO SCH (08:52)
[2023-06-16] MEDS: rifAXIMin 550 MG TABLET PO SCH ×2 (08:52→21:28)
[2023-06-16] MEDS: ESCITALOPRAM OXALATE 10 MG TAB PO SCH (08:52)
[2023-06-16] MEDS: FAMOTIDINE 40 MG TABLET PO SCH (08:52)
[2023-06-16] MEDS: LACTULOSE SYRUP 30 GM/45 ML UDP PO SCH ×3 (08:53→21:29)
[2023-06-16] MEDS: POTASSIUM CHLORIDE 20 MEQ/15 ML UDC PO SCH ×2 (08:53→21:27)
[2023-06-16] MEDS ORDERED: ALBUTEROL HFA 8 GM INHALER INH PRN (08:55)
[2023-06-16] MEDS ORDERED: IPRATROPIUM BROMIDE HFA INHALER INH PRN (08:56)
[2023-06-16] MEDS: INSULIN ASPART PER UNIT CHARGE SC SCH ×4 (08:56→21:24)
[2023-06-16] MEDS ORDERED: METOPROLOL SUCC 25MG EXT REL TAB PO SCH (09:00)
[2023-06-16 11:44] LABS: Albumin Peritoneal Fluid < 1.5 gm/dl
--- NOTE | 2023-06-16 11:47 | Ultrasound Report ---
Ultrasound-guided paracentesis INDICATION: Ascites PROCEDURE: Procedure and risks were explained. Informed consent was obtained. A final timeout was com pleted. The abdomen was prepped and draped in sterile fashion. 1% buffered lidocaine was utilized for skin anesthesia. Utilizing ultrasound guidance, a 5 [place]ian safety centesis catheter was advanced into the left upper q uadrant pocket of ascites. Ultrasound images were obtained. A total of 3.4 L of ascites fluid was rem kurtis, with 1 L sent to lab for analysis. The catheter was removed and one 2-0 silk suture was utilize d to close the puncture site. The patient tolerated the procedure well. Vital signs will be monitored on the floor. IMPRESSION: Paracentesis as above. Performed, dictated, and signed by Marvin Greene PA-C; to be co-signed by Dr. Guero Garcia. Electronically signed by: Guero Garcia M.D. 06/16/2023 5:19 PM
[2023-06-16 11:49] LABS: LDH Peritoneal Fluid 36 U/L; Total Protein Peritoneal Fluid < 3.0 gm/dl
[2023-06-16] MEDS ORDERED: ONDANSETRON INJ 2 MG/ML 2 ML VIAL IV PRN (12:49)
[2023-06-16] MEDS ORDERED: cefTRIAXone SODIUM 2,000 MG in DEXTROSE 5 % MINI-B 50 ML IV SCH (13:00)
[2023-06-16] MEDS ORDERED: ALBUMIN 25% 12.5 GM/50 ML VIAL IV ONE (13:41)
--- NOTE | 2023-06-16 13:47 | Hospitalist Progress Note ---
Date of Service June 16, 2023 Assessment & Plan (1) AMS (altered mental status): Plan: seems to have resolved. Seems to be at baseline Mental status No leukocytosis. CT head negative. There is concern for SBP and thus the patient was started on empiric ce ftriaxone We will continue until ascitic fluid analysis returns (2) Abdominal pain: Plan: -Concern for SBP with increased distention, peritoneal pain, and discolored drainage -Blood cultures sent, pending results Started on IV ceftriaxone. We will continue ascites fluid analysis sent after paracentesis done today -Home pain meds (3) Diabetes mellitus, type 2: Plan: -Monitor BSG ACHS , goal is 110-140 -Last A1c in March was 4.6 -CF 50 ACHS -HH/DMII with 2gm sodium restriction (4) Cirrhosis: Plan: -LFT's are currently stable, does not appear to be in decompensation -Will continue Lactulose and Xifaxan -Patient is significantly volume overloaded on exam, states has not been taking medications consistently -Will hold oral bumex and continue 4 mg IV BID -Continue spironolactone -Will place granados cath for close I's & O's monitoring (5) Hyperammonemia: Plan: -Noted to be 89 , came down to 50s today -Did not take her typical meds yesterday -Given 30 gm PO lactulose in the ED -Conitnue home lactulose and Xifaxan (6) Hyponatremia: Plan: -Sodium at 135 today -Chronic issue due to Cirrhosis -Has been stable at 132 -Continue typical cirrhosis management (7) Portal vein thrombosis: Plan: paracentesis completed Resume Lovenox (8) Hypothyroidism: Plan: -Continue levothyroxine (9) Opioid dependence: Plan: -Will try and hold her home oxy for now with confusion (10) Sleep apnea: Plan: -No longer is compliant with HS CPAP (11) History of CVA (cerebrovascular accident): Plan: -Due to previous vertebral dissection -Previously taken off plavix -Monitor Admission and Anticipated Discharge Date Admission Date: June 15, 2023 Subjective patient was discharged in the hospital on 06/11. She was supposed to follow-up with [facility] hepatology on 06/13. However she missed that appointment. She says that she was getting her paracentesis done and [facility] She comes back to the hospital with altered mental status, abdominal pain, increasing abdominal distention. She was admitted with concerns for SBP. She was started on empiric ceftriaxone. She had a paracentesis done today and labs were sent for fluid analysis. She says that she is feeling better. Review of Systems Review of Systems: All systems reviewed & are unremarkable except as noted in Subjective Physical Exam Physical Exam: General: Awake, conversant Heart: S1, S2/regular rate and rhythm, no murmur rubs or gallops Lungs: Clear to auscultation bilaterally. Normal effort Abdomen: distended abdomen. Positive for ascites. Mild tenderness to palpation diffusely without rebound, rigidity or guarding. No hepatosplenomegaly Extremities: No clubbing/cyanosis. 1-2+ bilateral pitting edema that is her baseline Behavior: Appropriate, cooperative Results & Data Results & Data Vital Signs (Past 12 Hours) Vital Signs Temp Pulse Pulse Resp BP Pulse Ox O2 Del Method 06/16/23 09:00 Room Air 06/16/23 07:58 36.6 C 80 16 96/55 L 98 Room Air 06/16/23 07:00 80 06/16/23 07:06 78 16 99 Room Air 06/16/23 04:06 36.4 C L 78 20 94/49 L 98 Room Air Laboratory Results Abnormal lab results 06/15/23 06/15/23 06/16/23 Range/Units 17:09 20:35 05:51 WBC 4.10 L (4.8-10.8) K/ul RBC 3.03 L (4.20-5.40) M/uL Hgb 8.5 L (12.0-16.0) g/dl Hct 26.0 L (37.0-47.0) % RDW Std Deviation 61.5 H (36.4-46.3) fL RDW Coeff of Henna 20.2 H (11.5-14.5) % Plt Count 52 L (130-400) K/uL Lymph # (Auto) 0.72 L (1.20-3.40) K/uL PT (9.0-12.0) Seconds INR (0.9-1.1) Sodium (136-145) mmol/L Potassium (3.5-5.1) mmol/L POC Glucose 105 H 208 H (70-99) mg/dl Calcium (8.6-10.3) mg/dl Total Bilirubin (0.2-1.0) mg/dl AST (13-39) U/L Total Protein (6.0-8.3) gm/dl Albumin (3.4-5.0) gm/dl 06/16/23 06/16/23 06/16/23 Range/Units 05:51 05:51 08:17 WBC (4.8-10.8) K/ul RBC (4.20-5.40) M/uL Hgb (12.0-16.0) g/dl Hct (37.0-47.0) % RDW Std Deviation (36.4-46.3) fL RDW Coeff of Henna (11.5-14.5) % Plt Count (130-400) K/uL Lymph # (Auto) (1.20-3.40) K/uL PT 16.1 H (9.0-12.0) Seconds INR 1.5 H (0.9-1.1) Sodium 135 L (136-145) mmol/L Potassium 3.1 L (3.5-5.1) mmol/L POC Glucose 108 H (70-99) mg/dl Calcium 8.3 L (8.6-10.3) mg/dl Total Bilirubin 3.0 H (0.2-1.0) mg/dl AST 57 H (13-39) U/L Total Protein 5.5 L (6.0-8.3) gm/dl Albumin 2.9 L (3.4-5.0) gm/dl 06/16/23 Range/Units 12:13 WBC (4.8-10.8) K/ul RBC (4.20-5.40) M/uL Hgb (12.0-16.0) g/dl Hct (37.0-47.0) % RDW Std Deviation (36.4-46.3) fL RDW Coeff of Ehnna (11.5-14.5) % Plt Count (130-400) K/uL Lymph # (Auto) (1.20-3.40) K/uL PT (9.0-12.0) Seconds INR (0.9-1.1) Sodium (136-145) mmol/L Potassium (3.5-5.1) mmol/L POC Glucose 157 H (70-99) mg/dl Calcium (8.6-10.3) mg/dl Total Bilirubin (0.2-1.0) mg/dl AST (13-39) U/L Total Protein (6.0-8.3) gm/dl Albumin (3.4-5.0) gm/dl Diagnostic Findings Abdomen/Pelvis CT 06/15/23 13:10 CT abd pelvis IV con only CLINICAL HISTORY: cirrhosis, concern for SBO/abd infection TECHNIQUE: Helical axial images of the abdomen and pelvis were obtained and displayed. Automated dose lowering techniques and/or adjustment according to patient size were utilized for this exam. This exam was performed with intravenous contrast. CT DOSE: 1392.54 mGy.cm COMPARISON: Comparison is made to CT abdomen pelvis 03/30/2023 FINDINGS: Lower chest: No acute abnormality. Liver: Nodular contour of the liver is seen compatible with cirrhosis. Gallbladder and biliary tree: Patient is status post cholecystectomy. No intra- or extrahepatic biliary ductal dilation. Pancreas: Unremarkable, no focal lesions. Spleen: Splenomegaly is noted, the spleen measures 17.6 cm. Adrenals: Unremarkable. Kidneys and ureters: Unremarkable. Bladder: Limited evaluation due to underdistention. Reproductive organs: Patient is status post hysterectomy. Bowel: Patient is status post gastric surgery. No evidence of small bowel obstruction or other acute abnormality. Lymph nodes Retroperitoneal: Unremarkable. Pelvic: Unremarkable. Mesenteric: Unremarkable. Peritoneum: Moderate to large ascites noted. Vessels: Varices are seen most prominently about the spleen. There is recanalization of the umbilical vein. Abdominal wall: Body wall edema is seen. Soft tissue densities in the anterior pannus may represent injection granulomata. Bones: Unremarkable. IMPRESSION: 1. No acute abnormalities and in particular no evidence of small bowel obstruction. 2. Cirrhosis with stigmata of portal hypertension. 3. Moderate to large ascites and body wall edema. ACT 112: Negative or not required by law. Electronically signed by: Mohit Perez M.D. 06/15/2023 3:34 PM Paracentesis Ultrasound 06/16/23 00:00 Ultrasound-guided paracentesis INDICATION: Ascites PROCEDURE: Procedure and risks were explained. Informed consent was obtained. A final timeout was completed. The abdomen was prepped and draped in sterile fashion. 1% buffered lidocaine was utilized for skin anesthesia. Utilizing ultrasound guidance, a 5 Latvian safety centesis catheter was advanced into the left upper quadrant pocket of ascites. Ultrasound images were obtained. A total of 3.4 L of ascites fluid was removed, with 1 L sent to lab for analysis. The catheter was removed and one 2-0 silk suture was utilized to close the puncture site. The patient tolerated the procedure well. Vital signs will be monitored on the floor. IMPRESSION: Paracentesis as above. Performed, dictated, and signed by Marvin Greene PA-C; to be co-signed by Dr. Guero Garcia. PG Care Time/CCT Total # of Minutes Spent Total Time Spent with Patient: Total time spent is greater than 50% in coordination of care (as documented) at patient's floor/unit and/or counseling patient: Coding Level of Care Code 11626 SUB INP/OBS CARE 2/35MIN Diagnoses AMS (altered mental status) R41.82 Abdominal pain R10.9 Diabetes mellitus, type 2 E11.9 Cirrhosis K74.60 Hyperammonemia E72.20 Hyponatremia E87.1 Portal vein thrombosis I81 Hypothyroidism E03.9 Opioid dependence F11.20 Sleep apnea G47.30 History of CVA (cerebrovascular accident) Z86.73
[2023-06-16 14:14] LABS: Appearance Peritoneal Fluid Cloudy; Color Peritoneal Fluid Yellow; Lymphocytes, Fluid 27 %; Mono,Macrophage,Mesothelial 68 %; Neutrophils, Fluid 5 %; RBC Peritoneal Fluid Auto 6000 /uL; WBC Peritoneal Fluid Auto 302 /ul (0-300)
[2023-06-16] MEDS: ALPRAZolam 0.5 MG TABLET PO PRN (21:26)
[2023-06-16] MEDS: ACETAMINOPHEN 500 MG TAB PO PRN (21:26)
[2023-06-17] MEDS ORDERED: KETOROLAC TROMETHAMINE 15 MG/ML VIAL IV ONE (00:32)
[2023-06-17] MEDS: CALCIUM CARBONATE 500 MG CHEWABLE TAB PO SCH ×3 (05:35→17:39)
[2023-06-17] MEDS: LEVOTHYROXINE SODIUM 150 MCG TABLET PO SCH (06:01)
--- NOTE | 2023-06-17 06:08 | Electrocardiogram Report ---
Test Reason : Blood Pressure : / mmHG Vent. Rate : 083 BPM Atrial Rate : 083 BPM P-R Int : 150 ms QRS Dur : 090 ms QT Int : 414 ms P-R-T Axes : 055 -21 015 degrees QTc Int : 487 ms Normal sinus rhythm Possible Anterior infarct (cited on or before 15-JUN-2023) Prolonged QT Nonspecific T wave abnormality Abnormal ECG When compared with ECG of 05-JUN-2023 12:40, Questionable change in QRS axis Inverted T waves have replaced nonspecific T wave abnormality in Inferior leads Nonspecific T wave abnormality now evident in Anterior leads QT has lengthened Confirmed by Jose Azul ([id number]) on 06/17/2023 6:07:46 AM Referred By: REFERRED SELF Confirmed By:Jose Azul
[2023-06-17 06:39] LABS: Hematocrit (blood only) 23.7 % (37.0-47.0); Hemoglobin 7.4 g/dl (12.0-16.0); Mean Corpuscular Hemoglobin 27.6 pg (25.0-34.0); Mean Corpuscular Hgb Conc 31.2 g/dL (32.0-36.0); Mean Corpuscular Volume 88.4 fL (80.0-100.0); Mean Platelet Volume 11.1 fL (9.4-12.4); Platelet Count 42 K/uL (130-400); RDW Coefficient of Variation 19.9 % (11.5-14.5); RDW Standard Deviation 64.2 fL (36.4-46.3); Red Blood Count 2.68 M/uL (4.20-5.40); White Blood Count 2.87 K/ul (4.8-10.8)
[2023-06-17 06:54] LABS: Anisocytosis Present; Basophils # (auto) 0.02 K/uL (0.00-0.20); Basophils % (auto) 0.7 %; Eosinophils # (auto) 0.27 K/uL (0.00-0.50); Eosinophils % (auto) 9.4 %; Immature Granulocytes # (auto) 0.01 K/uL (0.01-0.20); Immature Granulocytes % (auto) 0.3 %; Lymphocytes # (auto) 0.68 K/uL (1.20-3.40); Lymphocytes % (auto) 23.7 %; Monocytes # (auto) 0.33 K/uL (0.11-0.59); Monocytes % (auto) 11.5 %; Neutrophils # (auto) 1.56 K/uL (1.40-6.50); Neutrophils % (auto) 54.4 %; Polychromasia 1+
[2023-06-17 07:10] LABS: INR 1.6 (0.9-1.1); Prothrombin Time 17.3 Seconds (9.0-12.0)
[2023-06-17 07:41] LABS: Albumin Globulin Ratio 1.1 (0.9-2); Albumin Level 2.5 gm/dl (3.4-5.0); BUN Creatinine Ratio 13.7 (10-20); Bilirubin,Total 1.6 mg/dl (0.2-1.0); Calcium 8.2 mg/dl (8.6-10.3); Creatinine Clr Calc Pharmacy 62.3 ml/min; Est GFR (African American) 58.1 ml/min; Est GFR (Non-African American) 50.1 ml/min; Globulin 2.3 gm/dl (2.5-4.0); Magnesium 2.2 mg/dl (1.7-2.4); Potassium 3.6 mmol/L (3.5-5.1); Total Protein 4.8 gm/dl (6.0-8.3)
[2023-06-17] MEDS ORDERED: ENOXAPARIN 150 MG/ML SYR SQ SCH (08:00)
[2023-06-17] MEDS: INSULIN ASPART PER UNIT CHARGE SC SCH ×4 (08:53→21:15)
[2023-06-17] MEDS: rifAXIMin 550 MG TABLET PO SCH ×2 (09:01→21:27)
[2023-06-17] MEDS: DOCUSATE SODIUM 100 MG CAP PO SCH (09:02)
[2023-06-17] MEDS: LACTULOSE SYRUP 30 GM/45 ML UDP PO SCH ×3 (09:02→21:26)
[2023-06-17] MEDS: SUCRALFATE 1 GM/10 ML UDC PO SCH ×4 (09:02→21:27)
[2023-06-17] MEDS: rOPINIRole HCL 2 MG TABLET PO SCH ×3 (09:03→21:28)
[2023-06-17] MEDS: ESCITALOPRAM OXALATE 10 MG TAB PO SCH (09:03)
[2023-06-17] MEDS: PANTOprazole 40 MG TAB PO SCH (09:03)
[2023-06-17] MEDS: FAMOTIDINE 40 MG TABLET PO SCH (09:04)
[2023-06-17] MEDS: MAGNESIUM OXIDE 400 MG TAB PO SCH ×2 (09:04→21:27)
[2023-06-17] MEDS: POTASSIUM CHLORIDE 20 MEQ/15 ML UDC PO SCH ×2 (09:04→21:27)
[2023-06-17] MEDS: MIDODRINE HCL 2.5 MG TAB PO SCH ×3 (09:31→16:02)
[2023-06-17] MEDS: ACETAMINOPHEN 500 MG TAB PO PRN (12:15)
[2023-06-17] MEDS ORDERED: cefTRIAXone SODIUM 2,000 MG in DEXTROSE 5% MINI-B 100 ML IV SCH (13:00)
[2023-06-17 15:27] LABS: Hemoglobin 8.9 g/dl (12.0-16.0); Mean Corpuscular Hemoglobin 27.4 pg (25.0-34.0); Mean Corpuscular Hgb Conc 30.7 g/dL (32.0-36.0); Mean Corpuscular Volume 89.2 fL (80.0-100.0); Platelet Count 69 K/uL (130-400); RDW Standard Deviation 65.8 fL (36.4-46.3); Red Blood Count 3.25 M/uL (4.20-5.40); White Blood Count 5.22 K/ul (4.8-10.8)
[2023-06-17 15:32] LABS: Creatinine Clr Calc Pharmacy 57.1 ml/min; Est GFR (African American) 52.2 ml/min; Est GFR (Non-African American) 45.1 ml/min
--- NOTE | 2023-06-17 15:52 | Hospitalist Progress Note ---
Date of Service June 17, 2023 Assessment & Plan (1) JOANNA (acute kidney injury): Plan: baseline Cr <1 was 1.3 this am then 1.4 again this afternoon appears intra-vascularly volume depleted she has been getting frequent paracentesis and her diuretics had been pushed to 4mg IV BID earlier in this stay she was hypotensive overnight as well consistent with the above thus - HOLD bumex; HOLD aldactone; HOLD metoprolol start midodrine 2.5mg TID start albumin 25% - 1gm/kg/day x 48 hours hopefully JOANNA resolves with the above defer on octreotide for now BMP am (2) Abdominal pain: Plan: s/p paracentesis yesterday, 06/16. cell counts not c/w SBP and culture thus far negative. she had abdominal pain during her prior hospitalization (06/06 to 06/11) -- pain had improved then with IV PPI + carafate QID. will change PPI back to IV PPI and continue the carafate along with pepcid. CT a/p without acute findings. she does not have clinical evidence of abdominal wall cellulitis or panniculitis. [facility] - need for EGD due to h/o varices, gastritis, etc?? defer that decision to GI. will keep NPO after MN tonight in the event they proceed with EGD. although H/H were lower this am (Hb 7.4) repeat Hb later in the day was 8.9. further, no overt GI bleeding (staff report normal appearing brown stool). (3) AMS (altered mental status): Plan: resolved mild hepatic encephalopathy at admission?? cont lactulose - titrate for 3+ BMs/day cont rifaximin BID (4) Diabetes mellitus, type 2: Plan: Cont DM diet last hemoglobin a1c4.6% in 03/2023 suspect that value is not accurate due to ongoing anemia issues (5) Cirrhosis: Plan: with weekly paracentesis since ~February 2023 last 2 weeks has been requiring twice weekly paracentesis last paracentesis was yesterday, 06/16; cell counts not c/w SBP her edema of the LEs and ascites is actually MUCH better than my prior exams during the previous hospitalization last week she had hypotension overnight and creatinine has risen today - may be intravascularly volume contracted due to aggressive diuresis last couple of days place BB and diuretics on hold - see "JOANNA" below consult [facility] due to abdominal pain cont lactulose cont rifaximin for HE prophylaxis follows with Dr Calvert - [facility] - TIPS procedure has been discussed recently and referral was being arranged unfortunately she missed her appt with Dr Calvert on 06/13/23, at [facility] (6) Hyperammonemia: Plan: Noted to be 89 at admission, now down to 50s Cont home lactulose and Xifaxan (7) Hyponatremia: Plan: 2nd cirrhosis 2nd JOANNA 2nd to diuretics BMP am (8) Portal vein thrombosis: Plan: On chronic lovenox but held yesterday due to paracentesis and held today due to fluctuating H/H levels and potential for needing EGD due to abdominal pain (9) Hypothyroidism: Plan: Continue levothyroxine On very large dose Follows with [facility] (10) Opioid dependence: Plan: Holding oxycodone prn for now due to recent confusion and episodes of sleepiness (11) Sleep apnea: Plan: No longer on HS CPAP (12) History of CVA (cerebrovascular accident): Plan: 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 Previously was on plavix - this has been stopped (13) Morbid obesity with BMI of 40.0-44.9, adult: (14) Refractory ascites: Plan: now having paracentesis about twice weekly outpatient GI - [facility] Dr Calvert had been preparing referral for TIPS procedure noncompliance with diuretics and salt restriction have been 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 refractory ascites (15) RUBEN (iron deficiency anemia): Plan: most recent ferritin 18 during previous admission s/p Venofer IV x 3 doses during that admission H/H fluctuate during her hospital stays was <8 this am; repeat this afternoon 8.9 no overt GI bleeding repeat CBC and ferritin in am if ferritin still low consider additional IV venofer follows with CCP for iron management (16) Splenic vein thrombosis: Plan: previous dx typically on once daily lovenox SC (17) Hepatic encephalopathy: Plan: resolved clinically cont lactulose cont rifaximin (18) Esophageal varices: Plan: known diagnosis holding beta chacha due to JOANNA and hypotension Plan leaking paracentesis site on left despite suture in place -- if still leaking tomorrow will ask IR to place additional suture, etc Admission and Anticipated Discharge Date Admission Date: June 15, 2023 Subjective tele overnight wnl patient reports diffuse abdominal pain - some of it feels on the surface, some o f it deep; worse upper portions of abdomen despite the pain she is eating - states that food doesn't make pain worse she continues to drain ascites fluid from her prior paracentesis site despite the site having a suture in it (last paracentesis - 06/16/23 by IR here) ostomy bag is present to collect the fluid states she vomited yesterday but no vomiting today ongoing nausea edema in legs much better in comparison to last week ascites overall improved denies any dyspnea or orthopnea/PND per staff stools have been wnl -- NO melena, NO BRBPR Review of Systems Review of Systems: gen - no fevers cv - no chest pain pulm - no cough GI - no hematemesis or coffee-ground emesis HENT - denies URI symptoms Physical Exam Physical Exam: gen - sleepy but arouses easily and answers questions mouth - MM and lips dry neck - no JVD heart - RRR, s1 s2, 1/6 EDUARDO LSB lungs - CTA b/l abd - moderate ascites but improved from prior exams during last hospitalization; despite c/o pain she was not tender in any location on exam; prior paracentesis site on left abdomen with suture intact but indeed there is ascites leaking into ostomy bag; fluid is clear, not cloudy; prior paracentesis sites on right abdomen and LLQ are healed; no HSM; no peritoneal signs ext -1-2+ edema b/l, pulses 2+ b/l; edema is improved in comparison to prior exams neuro - mild tremor but no asterixis Results & Data Results & Data Vital Signs (Past 12 Hours) Vital Signs Temp Pulse Pulse Resp BP BP Pulse Ox 06/17/23 11:42 06/17/23 11:06 36.7 C 60 18 97/62 L 97 06/17/23 07:35 36.4 C L 57 L 19 89/52 L 98 06/17/23 07:00 63 O2 Del Method 06/17/23 11:42 Room Air 06/17/23 11:06 Room Air 06/17/23 07:35 Room Air 06/17/23 07:00 Laboratory Results Laboratory Results - last 24 hr 06/17/23 06/17/23 06/17/23 05:53 05:53 05:53 WBC 2.87 L RBC 2.68 L Hgb 7.4 L Hct 23.7 L MCV 88.4 MCH 27.6 MCHC 31.2 L RDW Std Deviation 64.2 H RDW Coeff of Henna 19.9 H Plt Count 42 L MPV 11.1 Immature Gran % (Auto) 0.3 Neut % (Auto) 54.4 Lymph % (Auto) 23.7 [place] % (Auto) 11.5 Eos % (Auto) 9.4 Baso % (Auto) 0.7 Neut # (Auto) 1.56 Lymph # (Auto) 0.68 L [place] # (Auto) 0.33 Eos # (Auto) 0.27 Baso # (Auto) 0.02 Immature Gran # (Auto) 0.01 Polychromasia 1+ Anisocytosis Present PT 17.3 H INR 1.6 H Sodium 131 L Potassium 3.6 Chloride 99 Carbon Dioxide 28 Anion Gap 4 BUN 18 Creatinine 1.31 H D Est Cr Clr Drug Dosing 62.3 Est GFR ( Amer) 58.1 Est GFR (Non-Af Amer) 50.1 BUN/Creatinine Ratio 13.7 Glucose 105 H POC Glucose Calcium 8.2 L Magnesium 2.2 Total Bilirubin 1.6 H AST 46 H ALT 24 Alkaline Phosphatase 48 Total Protein 4.8 L Albumin 2.5 L Globulin 2.3 L Albumin/Globulin Ratio 1.1 06/17/23 06/17/23 06/17/23 12:29 14:45 14:45 WBC 5.22 RBC 3.25 L Hgb 8.9 L Hct 29.0 L MCV 89.2 MCH 27.4 MCHC 30.7 L RDW Std Deviation 65.8 H RDW Coeff of Henna 20.0 H Plt Count 69 L D MPV 10.0 Immature Gran % (Auto) Neut % (Auto) Lymph % (Auto) [place] % (Auto) Eos % (Auto) Baso % (Auto) Neut # (Auto) Lymph # (Auto) [place] # (Auto) Eos # (Auto) Baso # (Auto) Immature Gran # (Auto) Polychromasia Anisocytosis PT INR Sodium Potassium Chloride Carbon Dioxide Anion Gap BUN Creatinine 1.43 H Est Cr Clr Drug Dosing 57.1 Est GFR ( Amer) 52.2 Est GFR (Non-Af Amer) 45.1 BUN/Creatinine Ratio Glucose POC Glucose 132 H Calcium Magnesium Total Bilirubin AST ALT Alkaline Phosphatase Total Protein Albumin Globulin Albumin/Globulin Ratio 06/17/23 06/17/23 16:35 20:28 WBC RBC Hgb Hct MCV MCH MCHC RDW Std Deviation RDW Coeff of Henna Plt Count MPV Immature Gran % (Auto) Neut % (Auto) Lymph % (Auto) [place] % (Auto) Eos % (Auto) Baso % (Auto) Neut # (Auto) Lymph # (Auto) [place] # (Auto) Eos # (Auto) Baso # (Auto) Immature Gran # (Auto) Polychromasia Anisocytosis PT INR Sodium Potassium Chloride Carbon Dioxide Anion Gap BUN Creatinine Est Cr Clr Drug Dosing Est GFR ( Amer) Est GFR (Non-Af Amer) BUN/Creatinine Ratio Glucose POC Glucose 128 H 123 H Calcium Magnesium Total Bilirubin AST ALT Alkaline Phosphatase Total Protein Albumin Globulin Albumin/Globulin Ratio PG Care Time/CCT Total # of Minutes Spent Total Time Spent with Patient: Total time spent is greater than 50% in coordination of care (as documented) at patient's floor/unit and/or counseling patient: Coding Level of Care Code 46605 SUB INP/OBS CARE 3/50MIN Diagnoses JOANNA (acute kidney injury) N17.9 Abdominal pain R10.9 AMS (altered mental status) R41.82 Diabetes mellitus, type 2 E11.9 Cirrhosis K74.60 Hyperammonemia E72.20 Hyponatremia E87.1 Portal vein thrombosis I81 Hypothyroidism E03.9 Opioid dependence F11.20 Sleep apnea G47.30 History of CVA (cerebrovascular accident) Z86.73 Morbid obesity with BMI of 40.0-44.9, adult E66.01; Z68.41 Refractory ascites R18.8 RUBEN (iron deficiency anemia) D50.9 Splenic vein thrombosis I82.890 Hepatic encephalopathy K72.90 Esophageal varices I85.00
[2023-06-17] MEDS: ALBUMIN 25% 25 GM/100 ML VIAL IV SCH ×2 (16:00→22:31)
[2023-06-17] MEDS: BENZOCAINE 20% (ORAJEL) 11.9 GM TUBE MT PRN (21:24)
[2023-06-17] MEDS: ALPRAZolam 0.5 MG TABLET PO PRN (21:28)
[2023-06-17] MEDS: PANTOprazole 40 MG in SYRINGE 0 ML IV SCH (21:28)
[2023-06-18] MEDS: CALCIUM CARBONATE 500 MG CHEWABLE TAB PO SCH ×5 (00:33→23:39)
[2023-06-18] MEDS: ALBUMIN 25% 25 GM/100 ML VIAL IV SCH ×4 (04:11→21:51)
[2023-06-18] MEDS: LEVOTHYROXINE SODIUM 150 MCG TABLET PO SCH (05:47)
[2023-06-18 07:09] LABS: Basophils # (auto) 0.04 K/uL (0.00-0.20); Basophils % (auto) 1.3 %; Eosinophils # (auto) 0.23 K/uL (0.00-0.50); Eosinophils % (auto) 7.4 %; Hematocrit (blood only) 25.6 % (37.0-47.0); Lymphocytes # (auto) 0.78 K/uL (1.20-3.40); Lymphocytes % (auto) 25.2 %; Mean Corpuscular Hgb Conc 31.3 g/dL (32.0-36.0); Mean Corpuscular Volume 89.5 fL (80.0-100.0); Monocytes # (auto) 0.33 K/uL (0.11-0.59); Monocytes % (auto) 10.6 %; Neutrophils # (auto) 1.72 K/uL (1.40-6.50); Neutrophils % (auto) 55.5 %; Platelet Count 48 K/uL (130-400); RDW Coefficient of Variation 19.8 % (11.5-14.5); RDW Standard Deviation 63.5 fL (36.4-46.3); Red Blood Count 2.86 M/uL (4.20-5.40)
[2023-06-18 07:27] LABS: Albumin Globulin Ratio 1.7 (0.9-2); Albumin Level 3.7 gm/dl (3.4-5.0); BUN Creatinine Ratio 14.6 (10-20); Bilirubin,Total 1.5 mg/dl (0.2-1.0); Creatinine Clr Calc Pharmacy 61.5 ml/min; Est GFR (African American) 58.6 ml/min; Est GFR (Non-African American) 50.6 ml/min; Globulin 2.2 gm/dl (2.5-4.0); Potassium 3.9 mmol/L (3.5-5.1); Total Protein 5.9 gm/dl (6.0-8.3)
[2023-06-18 07:33] LABS: INR 1.6 (0.9-1.1); Prothrombin Time 16.7 Seconds (9.0-12.0)
[2023-06-18 07:48] LABS: Ferritin 92.8 ng/ml (8-388)
[2023-06-18] MEDS: PANTOprazole 40 MG in SYRINGE 0 ML IV SCH ×2 (08:35→21:50)
[2023-06-18] MEDS: MAGNESIUM OXIDE 400 MG TAB PO SCH ×2 (08:35→21:51)
[2023-06-18] MEDS: rOPINIRole HCL 2 MG TABLET PO SCH ×3 (08:35→21:50)
[2023-06-18] MEDS: LACTULOSE SYRUP 30 GM/45 ML UDP PO SCH ×3 (08:36→21:51)
[2023-06-18] MEDS: rifAXIMin 550 MG TABLET PO SCH ×2 (08:36→21:50)
[2023-06-18] MEDS: ESCITALOPRAM OXALATE 10 MG TAB PO SCH (08:37)
[2023-06-18] MEDS: DOCUSATE SODIUM 100 MG CAP PO SCH (08:37)
[2023-06-18] MEDS: FAMOTIDINE 40 MG TABLET PO SCH (08:38)
[2023-06-18] MEDS: MIDODRINE HCL 2.5 MG TAB PO SCH ×3 (08:38→16:13)
[2023-06-18] MEDS: POTASSIUM CHLORIDE 20 MEQ/15 ML UDC PO SCH (08:39)
[2023-06-18] MEDS: SUCRALFATE 1 GM/10 ML UDC PO SCH ×4 (08:40→21:49)
[2023-06-18] MEDS: INSULIN ASPART PER UNIT CHARGE SC SCH ×4 (08:43→21:09)
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
[2023-06-18] MEDS ORDERED: oxyCODONE HCL IR 5 MG TAB (IMMEDIATE RELEASE) PO PRN (18:41)
[2023-06-18] MEDS: ALPRAZolam 0.5 MG TABLET PO PRN (21:47)
[2023-06-18] MEDS: TRIAMCINOLONE ACET 0.1% CR 15 GM TUBE EXT SCH (21:49)
--- NOTE | 2023-06-18 23:13 | Hospitalist Progress Note ---
Date of Service June 18, 2023 Assessment & Plan (1) JOANNA (acute kidney injury): Plan: baseline Cr <1 peak Cr 1.4 now 1.3 IMPROVED s/p holding diuretics/beta chacha and starting 1gm/kg albumin daily x 48 hours & midodrine 2.5mg TID BPs also improved cont midodrine 2.5mg TID cont albumin 25% - 1gm/kg/day x 48 hours - day #2 today defer on octreotide for now BMP am (2) Abdominal pain: Plan: etiology?? s/p paracentesis 06/16. cell counts not c/w SBP and culture remains negative. she had abdominal pain during her prior hospitalization (06/06 to 06/11) -- pain had improved then with IV PPI + carafate QID. cont PPI continue carafate along with pepcid. CT a/p without acute findings. she does not have clinical evidence of abdominal wall cellulitis or panniculitis. consulted Dr Barrett from GI - need for EGD? (3) AMS (altered mental status): Plan: resolved mild hepatic encephalopathy at admission cont lactulose - titrate for 3 BMs/day cont rifaximin BID (4) Diabetes mellitus, type 2: Plan: Cont DM diet BSGs well controlled last hemoglobin a1c4.6% in 03/2023 suspect that value is not accurate due to ongoing anemia issues (5) Cirrhosis: Plan: with weekly paracentesis since ~February 2023 last 2 weeks has been requiring twice weekly paracentesis last paracentesis was 06/16; cell counts not c/w SBP her edema of the LEs and ascites is actually MUCH better than my prior exams during the previous hospitalization last week she had hypotension overnight and creatinine has risen today - may be intravascularly volume contracted due to aggressive diuresis last week placed BB and diuretics on hold - see "JOANNA" below cont lactulose cont rifaximin for HE prophylaxis follows with Dr Calvert - [facility] - TIPS procedure has been discussed recently and referral was being arranged unfortunately she missed her appt with Dr Calvert on 06/13/23, at [facility] she has continued leak from her LUQ paracentesis site - fluid collected w/ ostomy bag will inform interventional radiology about this (6) Hyperammonemia: Plan: Noted to be 89 at admission, now down to 50s Cont home lactulose and Xifaxan (7) Hyponatremia: Plan: 2nd cirrhosis 2nd JOANNA 2nd to diuretics stable at 133 today BMP am (8) Portal vein thrombosis: Plan: On chronic lovenox but held due to recent paracentesis and potential for needing EGD due to abdominal pain (9) Hypothyroidism: Plan: Continue levothyroxine On very large dose Follows with [facility] (10) Opioid dependence: Plan: resume oxycodone prn albeit at low doses (11) Sleep apnea: Plan: No longer on HS CPAP could consider overnight oximetry study prior to d/c to see if we can qualify her for home night-time O2 (12) History of CVA (cerebrovascular accident): Plan: 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 Previously was on plavix - this has been stopped (13) Morbid obesity with BMI of 40.0-44.9, adult: (14) Refractory ascites: Plan: now having paracentesis about twice weekly outpatient GI - [facility] [address] hepatology Dr Calvert had been preparing referral for TIPS procedure noncompliance with diuretics and salt restriction 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 ascites (15) RUBEN (iron deficiency anemia): Plan: most recent ferritin 18 during previous admission s/p Venofer IV x 3 doses during that admission H/H fluctuate during her hospital stays was <8 this am; repeat this afternoon 8.9 no overt GI bleeding ferritin today in the 90s defer on additional IV venofer follows with CCP for iron management (16) Splenic vein thrombosis: Plan: previous dx typically on once daily lovenox SC (17) Hepatic encephalopathy: Plan: resolved clinically cont lactulose cont rifaximin (18) Esophageal varices: Plan: known diagnosis holding beta chacha due to JOANNA and hypotension Plan care d/w [facility] today ok to d/c monitors Admission and Anticipated Discharge Date Admission Date: June 15, 2023 Subjective patient continues with abdominal pain - still in multiple locations - no worse, but no better able to tolerate a diet still states she is having dry heaves but no margoth emesis stools are "near-normal" - no melena, no BRBPR, no diarrhea - near-normal calibre asks for steroid cream for abd wall due to itching her prior paracentesis site LUQ continues to leak about 1L/day despite a suture in place over the site tele overnight wnl asks for pain meds as well for pain patient has requested a hospital bed for home due to difficulty breathing from her ascites the ascites is very uncomfortable for her I agree w/ such - currently has to sleep with bed elevated here, and at home sleeping on 4+ pillows also w/ the ascites she has hard time getting out of a normal bed at home THUS -- Patient needs a hospital bed due to requiring frequent changes in body position. The patient requires positioning of the body not feasible with an ordinary bed in order to alleviate pain and discomfort. Review of Systems Review of Systems: gen - no fevers or chills cv - no chest pain pulm - no cough or dyspnea today GI - no hematemesis; no coffee-ground emesis Physical Exam Physical Exam: gen - awake, alert, just finished eating; best she has looked in the last 2 weeks mouth - MMM neck - no JVD heart - RRR, s1 s2, 1/6 EDUARDO LSB lungs - CTA b/l abd - mild-moderate ascites at most today; prior paracentesis site on left abdomen with suture intact but continues with ascites leaking into ostomy bag; fluid is clear, not cloudy; prior paracentesis sites on right abdomen and LLQ are healed; no HSM; no peritoneal signs; despite her c/o pain she is nontender on exam today ext - 1-2+ edema b/l, pulses 2+ b/l neuro - mild tremor but no asterixis psych - a/o x 3 Results & Data Results & Data Vital Signs (Past 12 Hours) Vital Signs Temp Pulse Pulse Resp BP BP Pulse Ox 06/18/23 19:19 37.1 C 75 18 108/67 100 06/18/23 14:08 63 06/18/23 15:40 36.8 C 82 20 113/64 96 06/18/23 11:13 36.9 C 84 18 118/70 99 O2 Del Method 06/18/23 19:19 Room Air 06/18/23 14:08 06/18/23 15:40 Room Air 06/18/23 11:13 Room Air Laboratory Results Laboratory Results - last 24 hr 06/18/23 06/18/23 06/18/23 06:15 06:15 06:15 WBC 3.10 L RBC 2.86 L Hgb 8.0 L Hct 25.6 L MCV 89.5 MCH 28.0 MCHC 31.3 L RDW Std Deviation 63.5 H RDW Coeff of [place] 19.8 H Plt Count 48 L MPV 11.0 Immature Gran % (Auto) 0.0 Neut % (Auto) 55.5 Lymph % (Auto) 25.2 [place] % (Auto) 10.6 Eos % (Auto) 7.4 Baso % (Auto) 1.3 Neut # (Auto) 1.72 Lymph # (Auto) 0.78 L [place] # (Auto) 0.33 Eos # (Auto) 0.23 Baso # (Auto) 0.04 Immature Gran # (Auto) 0.00 L PT 16.7 H INR 1.6 H Sodium 133 L Potassium 3.9 Chloride 98 Carbon Dioxide 30 Anion Gap 5 BUN 19 Creatinine 1.30 H Est Cr Clr Drug Dosing 61.5 Est GFR ( Amer) 58.6 Est GFR (Non-Af Amer) 50.6 BUN/Creatinine Ratio 14.6 Glucose 79 POC Glucose Calcium 9.0 Ferritin 92.8 Total Bilirubin 1.5 H AST 54 H ALT 26 Alkaline Phosphatase 55 Total Protein 5.9 L D Albumin 3.7 Globulin 2.2 L Albumin/Globulin Ratio 1.7 06/18/23 06/18/23 06/18/23 08:19 12:42 17:49 WBC RBC Hgb Hct MCV MCH MCHC RDW Std Deviation RDW Coeff of [place] Plt Count MPV Immature Gran % (Auto) Neut % (Auto) Lymph % (Auto) [place] % (Auto) Eos % (Auto) Baso % (Auto) Neut # (Auto) Lymph # (Auto) [place] # (Auto) Eos # (Auto) Baso # (Auto) Immature Gran # (Auto) PT INR Sodium Potassium Chloride Carbon Dioxide Anion Gap BUN Creatinine Est Cr Clr Drug Dosing Est GFR ( Amer) Est GFR (Non-Af Amer) BUN/Creatinine Ratio Glucose POC Glucose 94 109 H 105 H Calcium Ferritin Total Bilirubin AST ALT Alkaline Phosphatase Total Protein Albumin Globulin Albumin/Globulin Ratio 06/18/23 20:08 WBC RBC Hgb Hct MCV MCH MCHC RDW Std Deviation RDW Coeff of [place] Plt Count MPV Immature Gran % (Auto) Neut % (Auto) Lymph % (Auto) [place] % (Auto) Eos % (Auto) Baso % (Auto) Neut # (Auto) Lymph # (Auto) [place] # (Auto) Eos # (Auto) Baso # (Auto) Immature Gran # (Auto) PT INR Sodium Potassium Chloride Carbon Dioxide Anion Gap BUN Creatinine Est Cr Clr Drug Dosing Est GFR ( Amer) Est GFR (Non-Af Amer) BUN/Creatinine Ratio Glucose POC Glucose 92 Calcium Ferritin Total Bilirubin AST ALT Alkaline Phosphatase Total Protein Albumin Globulin Albumin/Globulin Ratio PG Care Time/CCT Total # of Minutes Spent Total Time Spent with Patient: Total time spent is greater than 50% in coordination of care (as documented) at patient's floor/unit and/or counseling patient: Coding Level of Care Code 08159 SUB INP/OBS CARE 3/50MIN Diagnoses JOANNA (acute kidney injury) N17.9 Abdominal pain R10.9 AMS (altered mental status) R41.82 Diabetes mellitus, type 2 E11.9 Cirrhosis K74.60 Hyperammonemia E72.20 Hyponatremia E87.1 Portal vein thrombosis I81 Hypothyroidism E03.9 Opioid dependence F11.20 Sleep apnea G47.30 History of CVA (cerebrovascular accident) Z86.73 Morbid obesity with BMI of 40.0-44.9, adult E66.01; Z68.41 Refractory ascites R18.8 RUBEN (iron deficiency anemia) D50.9 Splenic vein thrombosis I82.890 Hepatic encephalopathy K72.90 Esophageal varices I85.00
[2023-06-19] MEDS: ALBUMIN 25% 25 GM/100 ML VIAL IV SCH ×2 (04:28→10:33)
[2023-06-19] MEDS: LEVOTHYROXINE SODIUM 150 MCG TABLET PO SCH (05:44)
[2023-06-19] MEDS: CALCIUM CARBONATE 500 MG CHEWABLE TAB PO SCH ×4 (05:44→23:25)
[2023-06-19 08:05] LABS: BUN Creatinine Ratio 16.7 (10-20); Calcium 8.9 mg/dl (8.6-10.3); Creatinine Clr Calc Pharmacy 51.3 ml/min; Est GFR (Non-African American) 40.6 ml/min
[2023-06-19 08:15] LABS: Hematocrit (blood only) 21.7 % (37.0-47.0); Hemoglobin 6.6 g/dl (12.0-16.0); Mean Corpuscular Hgb Conc 30.4 g/dL (32.0-36.0); Mean Corpuscular Volume 91.9 fL (80.0-100.0); Mean Platelet Volume 10.6 fL (9.4-12.4); Platelet Count 37 K/uL (130-400); RDW Coefficient of Variation 20.3 % (11.5-14.5); RDW Standard Deviation 67.3 fL (36.4-46.3); Red Blood Count 2.36 M/uL (4.20-5.40); White Blood Count 2.09 K/ul (4.8-10.8)
[2023-06-19] MEDS: INSULIN ASPART PER UNIT CHARGE SC SCH ×4 (08:30→22:07)
[2023-06-19] MEDS ORDERED: SODIUM CHLORIDE 0.9% 250 ML IV PRN ×2 (08:51→13:51)
[2023-06-19 09:24] LABS: Hematocrit (blood only) 22.4 % (37.0-47.0); Hemoglobin 6.8 g/dl (12.0-16.0); Mean Corpuscular Hemoglobin 27.8 pg (25.0-34.0); Mean Corpuscular Hgb Conc 30.4 g/dL (32.0-36.0); Mean Corpuscular Volume 91.4 fL (80.0-100.0); Mean Platelet Volume 9.7 fL (9.4-12.4); Platelet Count 37 K/uL (130-400); RDW Standard Deviation 66.1 fL (36.4-46.3); Red Blood Count 2.45 M/uL (4.20-5.40); White Blood Count 2.25 K/ul (4.8-10.8)
[2023-06-19] MEDS: SUCRALFATE 1 GM/10 ML UDC PO SCH ×4 (10:03→22:02)
[2023-06-19] MEDS: LACTULOSE SYRUP 30 GM/45 ML UDP PO SCH ×3 (10:03→22:02)
[2023-06-19] MEDS: MAGNESIUM OXIDE 400 MG TAB PO SCH ×2 (10:04→22:03)
[2023-06-19] MEDS: rifAXIMin 550 MG TABLET PO SCH ×2 (10:04→22:05)
[2023-06-19] MEDS: DOCUSATE SODIUM 100 MG CAP PO SCH (10:04)
[2023-06-19] MEDS: rOPINIRole HCL 2 MG TABLET PO SCH ×3 (10:04→22:06)
[2023-06-19] MEDS: ESCITALOPRAM OXALATE 10 MG TAB PO SCH (10:04)
[2023-06-19] MEDS: FAMOTIDINE 40 MG TABLET PO SCH (10:05)
[2023-06-19] MEDS: MIDODRINE HCL 2.5 MG TAB PO SCH ×3 (10:05→17:46)
[2023-06-19] MEDS: PANTOprazole 40 MG in SYRINGE 0 ML IV SCH ×2 (10:09→22:03)
[2023-06-19] MEDS: TRIAMCINOLONE ACET 0.1% CR 15 GM TUBE EXT SCH ×3 (10:33→22:04)
[2023-06-19] MEDS ORDERED: STAT IV/IM STA (11:00)
--- NOTE | 2023-06-19 12:20 | Gastroenterology Progress Note ---
Date of Service June 19, 2023 Assessment & Plan (1) Anemia: Plan: Acute on chronic. Sees hematology for this. H/H 6.8/22.4 at present without overt GI bleeding. -Continue IV PPI -No current clinical evidence of active/uncontrolled variceal bleeding. It does appear Octreotide is initiated by primary team. -NPO after midnight for EGD on 06/20/23 Admission and Anticipated Discharge Date Admission Date: June 15, 2023 Subjective Our service was contacted after rounds on 06/19/23 due to concerns regarding patients H/H. H/H 6.8/22.4. No overt bleeding. Patient has had this happen while hospitalized during previous admissions as well. She is on IV Protonix, no overt signs of variceal bleeding. Vitals are stable. She is not NPO at this time. PG Care Time/CCT Total # of Minutes Spent Total Time Spent with Patient: Total time spent is greater than 50% in coordination of care (as documented) at patient's floor/unit and/or counseling patient: Coding Level of Care Code None Diagnoses Anemia D64.9
[2023-06-19] MEDS: OCTREOTIDE ACETATE 500 MCG in 0.9 % SODIUM CHLORIDE 100 ML IV SCH ×2 (13:29→23:23)
--- NOTE | 2023-06-19 13:53 | Hospitalist Progress Note ---
Date of Service June 19, 2023 Assessment & Plan (1) JOANNA (acute kidney injury): Plan: baseline Cr <1 now 1.5 despite supportive care including albumin x 48 hours, midodrine 2.5mg TID and holding diuretics/beta chacha cont midodrine but increase to 5mg TID start octreotide drip (to treat potential HRS and, if there is GI bleeding from varices, will help w/ that as well) BMP tonight and in am cont granados for now (2) Abdominal pain: Plan: etiology?? s/p paracentesis 06/16. cell counts not c/w SBP and culture remains negative. she had abdominal pain during her prior hospitalization (06/06 to 06/11) -- pain had improved then with IV PPI + carafate QID. cont PPI continue carafate along with pepcid. CT a/p without acute findings. she does not have clinical evidence of abdominal wall cellulitis or panniculitis. consulted [facility] - likely EGD tomorrow cont PPI with carafate octreotide drip as above (3) AMS (altered mental status): Plan: resolved mild hepatic encephalopathy at admission cont lactulose - titrate for 3 BMs/day cont rifaximin BID c diff negative today (4) Diabetes mellitus, type 2: Plan: Cont DM diet BSGs well controlled last hemoglobin a1c4.6% in 03/2023 suspect that value is not accurate due to ongoing anemia issues (5) Cirrhosis: Plan: with weekly paracentesis since ~February 2023 last 2 weeks has been requiring twice weekly paracentesis last paracentesis was 06/16; cell counts not c/w SBP her edema of the LEs and ascites is actually MUCH better than my prior exams during the previous hospitalization last week she had hypotension earlier this week and developed JOANNA placed BB and diuretics on hold - see "JOANNA" below cont lactulose cont rifaximin for HE prophylaxis follows with Dr Calvert [facility] - TIPS procedure has been discussed recently and referral was being arranged unfortunately she missed her appt with Dr Calvert on 06/13/23, at [facility] she has continued leak from her LUQ paracentesis site - fluid collected w/ ostomy bag informed IR about this also discussed informally with general surgery - concensus is to leave para site alone since it is already stitched and hopefully tract will close soon (6) Hyperammonemia: Plan: Noted to be 89 at admission, now down to 50s Cont home lactulose and Xifaxan (7) Hyponatremia: Plan: 2nd cirrhosis 2nd JOANNA 2nd to diuretics serial BMP (8) Portal vein thrombosis: Plan: On chronic lovenox but held due to recent paracentesis and ?GI bleeding (9) Hypothyroidism: Plan: Continue levothyroxine On very large dose Follows with [facility] recent TFTs were abnormal - repeat in 3-4 weeks (10) Opioid dependence: Plan: resumed oxycodone prn albeit at low doses (11) Sleep apnea: Plan: No longer on HS CPAP could consider overnight oximetry study prior to d/c to see if we can qualify her for home night-time O2 (12) History of CVA (cerebrovascular accident): Plan: 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 Previously was on plavix - this has been stopped (13) Morbid obesity with BMI of 40.0-44.9, adult: (14) Refractory ascites: Plan: now having paracentesis about twice weekly outpatient GI - [facility] Dr Calvert had been preparing referral for TIPS procedure noncompliance with diuretics and salt restriction 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 (15) RUBEN (iron deficiency anemia): Plan: most recent ferritin 18 during previous admission s/p Venofer IV x 3 doses during that admission H/H fluctuate during her hospital stays but this am her Hb x 2 is <7 no overt GI bleeding but certainly the acute drop is worrisome for such ferritin this admission in the 90s defer on additional IV venofer at this time follows with CCP for iron management plan - Tx 1 unit of PRBCs; serial H/H's EGD tomorrow am by [facility] (16) Splenic vein thrombosis: Plan: previous dx typically on once daily lovenox SC but holding for now (17) Hepatic encephalopathy: Plan: resolved clinically cont lactulose cont rifaximin (18) Esophageal varices: Plan: known diagnosis holding beta chacha due to JOANNA and hypotension octreotide drip --- see above discussion Plan care d/w [facility] Admission and Anticipated Discharge Date Admission Date: June 15, 2023 Subjective patient had a slimy, dark-appearing loose stool earlier today sent for c. diff and was negative she continues with abdominal pain but is tolerating meals no hematemesis or coffee-ground emesis she asks for steroid cream for her abdominal wall to control itching continues to drain from former paracentesis site LUQ ambulating without dizziness asks permission to shower Review of Systems Review of Systems: gen - weak; no fever or chills cv - no chest pain pulm - no dyspnea or YAN GI - no vomiting - granados in place Physical Exam Physical Exam: gen - awake, alert, sitting on side of bed, looks similar to yesterday mouth - MMM neck - no JVD heart - RRR, s1 s2, 1/6 EDUARDO LSB lungs - CTA b/l abd - mild-moderate ascites at most today; prior paracentesis site on left abdomen with suture intact but continues with ascites leaking into ostomy bag; fluid is clear, not cloudy; no HSM; no peritoneal signs; nontender all quadrants ext - 1+ edema b/l, pulses 2+ b/l neuro - mild tremor but no asterixis psych - a/o x 3 skin - mild scaly dry skin on abdominal wall; stasis changes b/l shins; generalized pallor Results & Data Results & Data Vital Signs (Past 12 Hours) Vital Signs Temp Pulse Pulse Resp BP BP Pulse Ox 06/19/23 18:49 36.7 C 68 16 106/63 98 06/19/23 16:35 36.8 C 68 16 113/67 98 06/19/23 15:15 36.9 C 61 18 114/68 97 06/19/23 14:59 37.0 C 65 18 110/68 96 Laboratory Results Laboratory Results - last 48 hr 06/18/23 06/18/23 06/18/23 08:19 12:42 17:49 WBC RBC Hgb Hct MCV MCH MCHC RDW Std Deviation RDW Coeff of Henna Plt Count MPV Immature Gran % (Auto) Neut % (Auto) Lymph % (Auto) [place] % (Auto) Eos % (Auto) Baso % (Auto) Neut # (Auto) Lymph # (Auto) [place] # (Auto) Eos # (Auto) Baso # (Auto) Immature Gran # (Auto) PT INR Sodium Potassium Chloride Carbon Dioxide Anion Gap BUN Creatinine Est Cr Clr Drug Dosing Est GFR ( Amer) Est GFR (Non-Af Amer) BUN/Creatinine Ratio Glucose POC Glucose 94 109 H 105 H Calcium Stl C. diff Tox B Gene Blood Type Antibody Screen Crossmatch 06/18/23 06/19/23 06/19/23 20:08 07:14 07:14 WBC 2.09 L RBC 2.36 L Hgb 6.6 L* Hct 21.7 L MCV 91.9 MCH 28.0 MCHC 30.4 L RDW Std Deviation 67.3 H RDW Coeff of Henna 20.3 H Plt Count 37 L MPV 10.6 Immature Gran % (Auto) Neut % (Auto) Lymph % (Auto) [place] % (Auto) Eos % (Auto) Baso % (Auto) Neut # (Auto) Lymph # (Auto) [place] # (Auto) Eos # (Auto) Baso # (Auto) Immature Gran # (Auto) PT INR Sodium 132 L Potassium 4.0 Chloride 100 Carbon Dioxide 28 Anion Gap 4 BUN 26 H Creatinine 1.56 H Est Cr Clr Drug Dosing 51.3 Est GFR ( Amer) 47.0 Est GFR (Non-Af Amer) 40.6 BUN/Creatinine Ratio 16.7 Glucose 103 H POC Glucose 92 Calcium 8.9 Stl C. diff Tox B Gene Blood Type Antibody Screen Crossmatch 06/19/23 06/19/23 06/19/23 07:37 09:00 09:00 WBC 2.25 L RBC 2.45 L Hgb 6.8 L* Hct 22.4 L MCV 91.4 MCH 27.8 MCHC 30.4 L RDW Std Deviation 66.1 H RDW Coeff of Henna 20.0 H Plt Count 37 L MPV 9.7 Immature Gran % (Auto) Neut % (Auto) Lymph % (Auto) [place] % (Auto) Eos % (Auto) Baso % (Auto) Neut # (Auto) Lymph # (Auto) [place] # (Auto) Eos # (Auto) Baso # (Auto) Immature Gran # (Auto) PT INR Sodium Potassium Chloride Carbon Dioxide Anion Gap BUN Creatinine Est Cr Clr Drug Dosing Est GFR ( Amer) Est GFR (Non-Af Amer) BUN/Creatinine Ratio Glucose POC Glucose 116 H Calcium Stl C. diff Tox B Gene Blood Type A Positive Antibody Screen NEGATIVE Crossmatch See Detail 06/19/23 06/19/23 06/19/23 11:36 14:20 16:57 WBC RBC Hgb Hct MCV MCH MCHC RDW Std Deviation RDW Coeff of Henna Plt Count MPV Immature Gran % (Auto) Neut % (Auto) Lymph % (Auto) [place] % (Auto) Eos % (Auto) Baso % (Auto) Neut # (Auto) Lymph # (Auto) [place] # (Auto) Eos # (Auto) Baso # (Auto) Immature Gran # (Auto) PT INR Sodium Potassium Chloride Carbon Dioxide Anion Gap BUN Creatinine Est Cr Clr Drug Dosing Est GFR ( Amer) Est GFR (Non-Af Amer) BUN/Creatinine Ratio Glucose POC Glucose 127 H 296 H Calcium Stl C. diff Tox B Gene Negative Cdiff Gene Blood Type Antibody Screen Crossmatch PG Care Time/CCT Total # of Minutes Spent Total Time Spent with Patient: Total time spent is greater than 50% in coordination of care (as documented) at patient's floor/unit and/or counseling patient: Coding Level of Care Code 88742 SUB INP/OBS CARE 3/50MIN Diagnoses JOANNA (acute kidney injury) N17.9 Abdominal pain R10.9 AMS (altered mental status) R41.82 Diabetes mellitus, type 2 E11.9 Cirrhosis K74.60 Hyperammonemia E72.20 Hyponatremia E87.1 Portal vein thrombosis I81 Hypothyroidism E03.9 Opioid dependence F11.20 Sleep apnea G47.30 History of CVA (cerebrovascular accident) Z86.73 Morbid obesity with BMI of 40.0-44.9, adult E66.01; Z68.41 Refractory ascites R18.8 RUBEN (iron deficiency anemia) D50.9 Splenic vein thrombosis I82.890 Hepatic encephalopathy K72.90 Esophageal varices I85.00
[2023-06-19] MEDS: ACETAMINOPHEN 500 MG TAB PO PRN (14:44)
[2023-06-19] MEDS: BENZOCAINE 20% (ORAJEL) 11.9 GM TUBE MT PRN (15:53)
[2023-06-19] MEDS: LIDOCAINE 5% 1 PATCH TD SCH (15:53)
[2023-06-19 21:52] LABS: Basophils # (auto) 0.05 K/uL (0.00-0.20); Basophils % (auto) 1.1 %; Eosinophils # (auto) 0.38 K/uL (0.00-0.50); Eosinophils % (auto) 8.4 %; Hematocrit (blood only) 25.7 % (37.0-47.0); Hemoglobin 8.1 g/dl (12.0-16.0); Immature Granulocytes # (auto) 0.01 K/uL (0.01-0.20); Immature Granulocytes % (auto) 0.2 %; Lymphocytes # (auto) 0.91 K/uL (1.20-3.40); Lymphocytes % (auto) 20.1 %; Mean Corpuscular Hemoglobin 28.1 pg (25.0-34.0); Mean Corpuscular Hgb Conc 31.5 g/dL (32.0-36.0); Mean Corpuscular Volume 89.2 fL (80.0-100.0); Mean Platelet Volume 11.4 fL (9.4-12.4); Monocytes % (auto) 15.5 %; Neutrophils # (auto) 2.47 K/uL (1.40-6.50); Neutrophils % (auto) 54.7 %; Platelet Count 58 K/uL (130-400); RDW Coefficient of Variation 19.2 % (11.5-14.5); RDW Standard Deviation 61.4 fL (36.4-46.3); Red Blood Count 2.88 M/uL (4.20-5.40); White Blood Count 4.52 K/ul (4.8-10.8)
[2023-06-19 22:02] LABS: BUN Creatinine Ratio 18.7 (10-20); Calcium 9.2 mg/dl (8.6-10.3); Creatinine Clr Calc Pharmacy 53.3 ml/min; Est GFR (African American) 49.3 ml/min; Est GFR (Non-African American) 42.5 ml/min; Potassium 4.1 mmol/L (3.5-5.1)
[2023-06-19 22:21] LABS: INR 1.7 (0.9-1.1)
[2023-06-19] MEDS: ALPRAZolam 0.5 MG TABLET PO PRN (23:24)
[2023-06-20] MEDS: LEVOTHYROXINE SODIUM 150 MCG TABLET PO SCH (05:00)
[2023-06-20] MEDS: CALCIUM CARBONATE 500 MG CHEWABLE TAB PO SCH ×4 (05:00→23:34)
[2023-06-20 06:45] LABS: Hematocrit (blood only) 25.3 % (37.0-47.0); Hemoglobin 8.1 g/dl (12.0-16.0)
[2023-06-20] MEDS ORDERED: MIDAZOLAM HCL 1 MG/ML 2ML VIAL ONE (08:29)
[2023-06-20] MEDS ORDERED: LIDOCAINE 2% 2 ML VIAL/AMP(20MG/ML) INFIL ONE (08:33)
[2023-06-20] MEDS ORDERED: ONDANSETRON INJ 2 MG/ML 2 ML VIAL ONE (08:33)
[2023-06-20] MEDS ORDERED: DEXAMETHASONE SOD INJ 4 MG/ML VIAL ONE (08:33)
[2023-06-20] MEDS ORDERED: PROPOFOL IV EMULSION 10 MG/ML 20 ML VIAL IV ONE (08:33)
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
[2023-06-20 08:50] LABS: BUN Creatinine Ratio 20.1 (10-20); Calcium 8.9 mg/dl (8.6-10.3); Creatinine Clr Calc Pharmacy 59.7 ml/min; Est GFR (African American) 56.5 ml/min; Est GFR (Non-African American) 48.7 ml/min; Potassium 4.3 mmol/L (3.5-5.1)
--- NOTE | 2023-06-20 08:54 | History & Physical Bridge Note ---
Date of Service June 20, 2023 History & Physical Bridge Note I have examined the patient, reviewed the History & Physical and in the interval since the performance of the History & Physical I have noted the following changes of clinical significance: no changes noted Proceed with EGD. risks/benefits and procedure discussed with patient, who agrees to proceed
[2023-06-20] MEDS ORDERED: ePHEDrine sulfate 50 MG/ML AMP ONE (09:13)
[2023-06-20] MEDS ORDERED: PHENYLEPHRINE HCL 10 MG/ML VIAL ONE (09:13)
--- NOTE | 2023-06-20 09:37 | GI REPORT ---
Patient Name: Niesha Gutiérrez Procedure Date: 06/20/2023 8:42 AM Date of : 1980 Admit Type: Inpatient Age: 42 Gender: Female Attending MD: Paulino Cerrato MD, Procedure: Upper GI endoscopy Providers: Paulino Cerrato MD Referring MD: Yan Rodriguez Indications: Unexplained iron deficiency anemia Medicines: Monitored Anesthesia Care Complications: No immediate complications. Estimated blood loss: None. Estimated Blood Loss: Estimated blood loss: none. Procedure: Pre-Anesthesia Assessment: - Prior Anticoagulants: The patient has taken no anticoagulant or antiplatelet agents. - ASA Grade Assessment: IV - A patient with severe systemic disease that is a constant threat to life. After obtaining informed consent, the endoscope was passed under direct vision. Throughout the procedure, the patient's blood pressure, pulse, and oxygen saturations were monitored continuously. The Endoscope was introduced through the mouth, and advanced to the second part of duodenum. The upper GI endoscopy was accomplished without difficulty. The patient tolerated the procedure well. Findings: The examined esophagus was normal. No evidence of esophageal varices. Diffuse moderate inflammation characterized by erythema was found in the stomach. Biopsies were taken with a cold forceps for Helicobacter pylori testing. Estimated blood loss: none. The duodenal bulb and second portion of the duodenum were normal. no active bleeding noted. Impression: - Normal esophagus. - Gastritis. Biopsied. - Normal duodenal bulb and second portion of the duodenum. Recommendation: - [facility] patient to [facility] for [facility] care. - Advance diet as tolerated today. - Await pathology results. -protonix 40 mg daily -repeat EGD in 1 year for surveillance Paulino Cerrato MD 06/20/2023 9:37:16 AM This report has been signed electronically. Note Initiated On: 06/20/2023 8:42 AM Number of Addenda: 0 I attest to the content of the Intraoperative Record and orders documented therein, exceptions below {[id number]}
--- NOTE | 2023-06-20 09:50 | Anesthesiology Progress Note ---
Date of Service June 20, 2023 Anesthesia Post Procedure Vital Signs Vital Signs: Temp Pulse Pulse Resp BP BP BP 06/20/23 09:39 67 16 99/49 L 06/20/23 09:24 68 16 110/56 L 06/20/23 09:09 71 16 102/44 L 06/20/23 08:33 36.4 C L 71 18 106/54 L 06/20/23 08:11 36.5 C 75 16 108/64 06/20/23 00:59 06/19/23 20:14 36.8 C 69 16 93/56 L 06/19/23 18:49 36.7 C 68 16 106/63 06/19/23 16:35 36.8 C 68 16 113/67 06/19/23 15:15 36.9 C 61 18 114/68 06/19/23 14:59 37.0 C 65 18 110/68 Pulse Ox O2 Del Method O2 Flow Rate 06/20/23 09:39 95 Room Air 06/20/23 09:24 99 Room Air 06/20/23 09:09 98 Oxymask 4 06/20/23 08:33 98 Room Air 06/20/23 08:11 97 Room Air 06/20/23 00:59 Room Air 06/19/23 20:14 96 Room Air 06/19/23 18:49 98 06/19/23 16:35 98 Room Air 06/19/23 15:15 97 0 06/19/23 14:59 96 0 Pain Intensity Abdomen: Pain Intensity: 5 Transfer of Care Handoff Completed per policy Notes Mental Status: alert / awake / arousable and participated in evaluation Patient Amnestic to Procedure: Yes Nausea / Vomiting: adequately controlled Pain: adequately controlled Airway Patency, RR, SpO2: stable & adequate BP & HR: stable & adequate Hydration State: stable & adequate Anesthetic Complications: no major complications apparent and Pt Satisfied with anesthetic care
[2023-06-20] MEDS: SUCRALFATE 1 GM/10 ML UDC PO SCH ×4 (10:19→21:47)
[2023-06-20] MEDS: MIDODRINE HCL 2.5 MG TAB PO SCH ×3 (10:20→16:45)
[2023-06-20] MEDS: LACTULOSE SYRUP 30 GM/45 ML UDP PO SCH ×3 (10:22→21:46)
[2023-06-20] MEDS: LIDOCAINE 5% 1 PATCH TD SCH (10:22)
[2023-06-20] MEDS: PANTOprazole 40 MG in SYRINGE 0 ML IV SCH (10:22)
[2023-06-20] MEDS: ESCITALOPRAM OXALATE 10 MG TAB PO SCH (10:22)
[2023-06-20] MEDS: rifAXIMin 550 MG TABLET PO SCH ×2 (10:23→21:49)
[2023-06-20] MEDS: MAGNESIUM OXIDE 400 MG TAB PO SCH ×2 (10:23→21:49)
[2023-06-20] MEDS: TRIAMCINOLONE ACET 0.1% CR 15 GM TUBE EXT SCH ×3 (10:25→21:51)
[2023-06-20] MEDS: BENZOCAINE 20% (ORAJEL) 11.9 GM TUBE MT PRN (10:26)
[2023-06-20] MEDS: rOPINIRole HCL 2 MG TABLET PO SCH ×3 (10:27→21:50)
[2023-06-20] MEDS: INSULIN ASPART PER UNIT CHARGE SC SCH ×4 (11:43→21:57)
[2023-06-20] MEDS: DOCUSATE SODIUM 100 MG CAP PO SCH (11:44)
[2023-06-20] MEDS: OCTREOTIDE ACETATE 500 MCG in 0.9 % SODIUM CHLORIDE 100 ML IV SCH ×2 (11:44→18:39)
[2023-06-20] MEDS: FAMOTIDINE 40 MG TABLET PO SCH (13:25)
[2023-06-20] MEDS ORDERED: oxyCODONE HCL IR 5 MG TAB (IMMEDIATE RELEASE) PO PRN (19:47)
--- NOTE | 2023-06-20 19:53 | Hospitalist Progress Note ---
Date of Service June 20, 2023 Assessment & Plan (1) JOANNA (acute kidney injury): Plan: baseline Cr <1 peak Cr 1.5 s/p albumin x 48 hours, midodrine 5mg TID, octreotide drip, and holding diuretics/beta chacha Cr now 1.3 cont midodrine 5mg TID stop octreotide drip tonight (and no varices on EGD today) BMP am stop granados in am (2) Abdominal pain: Plan: etiology - 2nd gastritis? cont PPI cont carafate cont pepcid no other pathology on EGD today s/p paracentesis 06/16. cell counts not c/w SBP and culture remains negative. she had abdominal pain during her prior hospitalization (06/06 to 06/11) -- pain had improved then with IV PPI + carafate QID. CT a/p without acute findings. she does not have clinical evidence of abdominal wall cellulitis or panniculitis. (3) AMS (altered mental status): Plan: mild hepatic encephalopathy at admission had improved - today a little groggy/sleepy but could be due to narcotics; but recheck ammonia level am cont lactulose - titrate for 3 BMs/day cont rifaximin BID c diff negative (4) Diabetes mellitus, type 2: Plan: Cont DM diet BSGs well controlled last hemoglobin a1c 4.6% in 03/2023 suspect that value is not accurate due to ongoing anemia issues (5) Cirrhosis: Plan: with weekly paracentesis since ~February 2023 last 2 weeks has been requiring twice weekly paracentesis last paracentesis was 06/16; cell counts not c/w SBP her edema of the LEs and ascites is actually MUCH better than my prior exams during the previous hospitalization last week she had hypotension earlier this week and developed JOANNA placed BB and diuretics on hold due to JOANNA cont lactulose cont rifaximin for HE prophylaxis follows with Dr Calvert [facility] - TIPS procedure has been discussed recently and referral was being arranged she has her TIPS consultation appt with Jessica Mcintyre on Friday at 3pm -- patient aware she has continued leak from her LUQ paracentesis site - fluid collected w/ ostomy bag will consult gen surgery to see what they can do to stop the leak (6) Hyperammonemia: Plan: Noted to be 89 at admission Remains on lactulose and Xifaxan Recheck ammonia level am (7) Hyponatremia: Plan: 2nd cirrhosis 2nd JOANNA 2nd to diuretics improved today - was 129, now 132 BMP am (8) Portal vein thrombosis: Plan: On chronic lovenox but held due to recent paracentesis, EGD Today, and fluctuating H/H along with low platelets (9) Hypothyroidism: Plan: Continue levothyroxine On very large dose Follows with [facility] recent TFTs were abnormal - repeat in 3-4 weeks (10) Opioid dependence: Plan: resumed oxycodone prn albeit at low doses (11) Sleep apnea: Plan: No longer on HS CPAP could consider overnight oximetry study prior to d/c to see if we can qualify her for home night-time O2 (12) History of CVA (cerebrovascular accident): Plan: 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 Previously was on plavix - this has been stopped (13) Morbid obesity with BMI of 40.0-44.9, adult: (14) Refractory ascites: Plan: now having paracentesis about twice weekly outpatient GI - [facility] Dr Calvert had been preparing referral for TIPS procedure; this appt is scheduled on Friday, 06/23 at 3pm noncompliance with diuretics and salt restriction have been suspected as 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 of refractory ascites continue ascites leak from recent paracentesis --> gen surg consultation (15) RUBEN (iron deficiency anemia): Plan: most recent ferritin 18 during previous admission s/p Venofer IV x 3 doses during that admission H/H fluctuate during her hospital stays but this am her Hb x 2 is <7 no overt GI bleeding but certainly the acute drop is worrisome for such ferritin this admission in the 90s defer on additional IV venofer at this time follows with [facility]CP for iron management s/p 1 unit of PRBCs yesterday; appropriate H/H rise today EGD w/o source of bleeding CBC am (16) Splenic vein thrombosis: Plan: previous dx typically on once daily lovenox SC but holding (17) Hepatic encephalopathy: Plan: recheck ammonia am cont lactulose cont rifaximin (18) Esophageal varices: Plan: history of, but none seen on EGD today holding beta chacha due to JOANNA and hypotension octreotide drip --- will stop [place] [facility] [place] Admission and Anticipated Discharge Date Admission Date: June 15, 2023 Subjective saw patient post-EGD she reports minimal abd pain today has had 4 BMs today dark in color but no margoth blood and not black no emesis no mention of nausea today ambulating w/o dizziness continues to leak ascites fluid via the former paracentesis site left side of abdomen about 1000cc of fluid/day she is aware that she has TIPS consultation appt in [place] on Friday at 3pm Review of Systems Review of Systems: gen - no fevers cv - no chest pain, no orthopnea; edema legs ongoing pulm - mild dyspnea at times; no cough - granados is still in place Physical Exam Physical Exam: gen - awake but sleepy; sitting on side of bed, NAD mouth - MMM, no thrush neck - no JVD heart - RRR, s1 s2, 1/6 EDUARDO LSB lungs - CTA b/l abd - mild-moderate ascites; prior paracentesis site on left abdomen with suture intact but continues with ascites leaking into ostomy bag; fluid is clear/elda; no HSM; no peritoneal signs; nontender all quadrants today ext - 1+ edema b/l, pulses 2+ b/l neuro - mild asterixis? psych - a/o x 3 Results & Data Results & Data Vital Signs (Past 12 Hours) Vital Signs Temp Pulse Resp BP Pulse Ox O2 Del Method O2 Flow Rate 06/20/23 16:36 Room Air 06/20/23 14:31 36.7 C 65 16 115/67 95 Room Air 06/20/23 08:00 Room Air 06/20/23 09:39 67 16 99/49 L 95 Room Air 06/20/23 09:24 68 16 110/56 L 99 Room Air 06/20/23 09:09 71 16 102/44 L 98 Oxymask 4 06/20/23 08:33 36.4 C L 71 18 106/54 L 98 Room Air 06/20/23 08:11 36.5 C 75 16 108/64 97 Room Air Laboratory Results Laboratory Results - last 24 hr 06/19/23 06/19/23 06/19/23 20:55 21:11 21:12 WBC 4.52 L RBC 2.88 L Hgb 8.1 L Hct 25.7 L MCV 89.2 MCH 28.1 MCHC 31.5 L RDW Std Deviation 61.4 H RDW Coeff of Henna 19.2 H Plt Count 58 L D MPV 11.4 Immature Gran % (Auto) 0.2 Neut % (Auto) 54.7 Lymph % (Auto) 20.1 [place] % (Auto) 15.5 Eos % (Auto) 8.4 Baso % (Auto) 1.1 Neut # (Auto) 2.47 Lymph # (Auto) 0.91 L [place] # (Auto) 0.70 H Eos # (Auto) 0.38 Baso # (Auto) 0.05 Immature Gran # (Auto) 0.01 PT INR Sodium Potassium Chloride Carbon Dioxide Anion Gap BUN Creatinine Est Cr Clr Drug Dosing Est GFR ( Amer) Est GFR (Non-Af Amer) BUN/Creatinine Ratio Glucose POC Glucose 95 87 Calcium 06/19/23 06/19/23 06/20/23 21:12 21:12 06:07 WBC RBC Hgb Hct MCV MCH MCHC RDW Std Deviation RDW Coeff of Henna Plt Count MPV Immature Gran % (Auto) Neut % (Auto) Lymph % (Auto) [place] % (Auto) Eos % (Auto) Baso % (Auto) Neut # (Auto) Lymph # (Auto) [place] # (Auto) Eos # (Auto) Baso # (Auto) Immature Gran # (Auto) PT 18.0 H INR 1.7 H Sodium 129 L 132 L Potassium 4.1 4.3 Chloride 100 101 Carbon Dioxide 24 25 Anion Gap 5 6 BUN 28 H 27 H Creatinine 1.50 H 1.34 H Est Cr Clr Drug Dosing 53.3 59.7 Est GFR ( Amer) 49.3 56.5 Est GFR (Non-Af Amer) 42.5 48.7 BUN/Creatinine Ratio 18.7 20.1 H Glucose 78 126 H POC Glucose Calcium 9.2 8.9 06/20/23 06/20/23 06/20/23 06:13 08:09 10:19 WBC RBC Hgb 8.1 L Hct 25.3 L MCV MCH MCHC RDW Std Deviation RDW Coeff of Henna Plt Count MPV Immature Gran % (Auto) Neut % (Auto) Lymph % (Auto) [place] % (Auto) Eos % (Auto) Baso % (Auto) Neut # (Auto) Lymph # (Auto) [place] # (Auto) Eos # (Auto) Baso # (Auto) Immature Gran # (Auto) PT INR Sodium Potassium Chloride Carbon Dioxide Anion Gap BUN Creatinine Est Cr Clr Drug Dosing Est GFR ( Amer) Est GFR (Non-Af Amer) BUN/Creatinine Ratio Glucose POC Glucose 134 H 113 H Calcium 06/20/23 06/20/23 11:55 16:47 WBC RBC Hgb Hct MCV MCH MCHC RDW Std Deviation RDW Coeff of Henna Plt Count MPV Immature Gran % (Auto) Neut % (Auto) Lymph % (Auto) [place] % (Auto) Eos % (Auto) Baso % (Auto) Neut # (Auto) Lymph # (Auto) [place] # (Auto) Eos # (Auto) Baso # (Auto) Immature Gran # (Auto) PT INR Sodium Potassium Chloride Carbon Dioxide Anion Gap BUN Creatinine Est Cr Clr Drug Dosing Est GFR ( Amer) Est GFR (Non-Af Amer) BUN/Creatinine Ratio Glucose POC Glucose 167 H 171 H Calcium PG Care Time/CCT Total # of Minutes Spent Total Time Spent with Patient: Total time spent is greater than 50% in coordination of care (as documented) at patient's floor/unit and/or counseling patient: Coding Level of Care Code 38009 SUB INP/OBS CARE 3/50MIN Diagnoses JOANNA (acute kidney injury) N17.9 Abdominal pain R10.9 AMS (altered mental status) R41.82 Diabetes mellitus, type 2 E11.9 Cirrhosis K74.60 Hyperammonemia E72.20 Hyponatremia E87.1 Portal vein thrombosis I81 Hypothyroidism E03.9 Opioid dependence F11.20 Sleep apnea G47.30 History of CVA (cerebrovascular accident) Z86.73 Morbid obesity with BMI of 40.0-44.9, adult E66.01; Z68.41 Refractory ascites R18.8 RUBEN (iron deficiency anemia) D50.9 Splenic vein thrombosis I82.890 Hepatic encephalopathy K72.90 Esophageal varices I85.00
[2023-06-20] MEDS: PANTOprazole 40 MG TAB PO SCH (21:49)
[2023-06-20] MEDS: ALPRAZolam 0.5 MG TABLET PO PRN (22:42)
[2023-06-21] MEDS: CALCIUM CARBONATE 500 MG CHEWABLE TAB PO SCH ×4 (05:16→22:42)
[2023-06-21] MEDS: LEVOTHYROXINE SODIUM 150 MCG TABLET PO SCH (06:24)
[2023-06-21 06:41] LABS: Hematocrit (blood only) 24.6 % (37.0-47.0); Hemoglobin 7.9 g/dl (12.0-16.0); Mean Corpuscular Hemoglobin 28.3 pg (25.0-34.0); Mean Corpuscular Hgb Conc 32.1 g/dL (32.0-36.0); Mean Corpuscular Volume 88.2 fL (80.0-100.0); Mean Platelet Volume 10.6 fL (9.4-12.4); Platelet Count 53 K/uL (130-400); RDW Coefficient of Variation 19.3 % (11.5-14.5); RDW Standard Deviation 62.6 fL (36.4-46.3); Red Blood Count 2.79 M/uL (4.20-5.40); White Blood Count 5.21 K/ul (4.8-10.8)
[2023-06-21 07:15] LABS: BUN Creatinine Ratio 22.3 (10-20); Calcium 8.8 mg/dl (8.6-10.3); Creatinine Clr Calc Pharmacy 77.6 ml/min; Est GFR (African American) 77.6 ml/min; Potassium 4.6 mmol/L (3.5-5.1)
[2023-06-21] MEDS: SUCRALFATE 1 GM/10 ML UDC PO SCH ×4 (08:34→20:24)
[2023-06-21] MEDS: PANTOprazole 40 MG TAB PO SCH ×2 (08:35→20:22)
[2023-06-21] MEDS: rOPINIRole HCL 2 MG TABLET PO SCH ×3 (08:36→20:23)
[2023-06-21] MEDS: MAGNESIUM OXIDE 400 MG TAB PO SCH ×2 (08:36→20:21)
[2023-06-21] MEDS: LIDOCAINE 5% 1 PATCH TD SCH (08:37)
[2023-06-21] MEDS: rifAXIMin 550 MG TABLET PO SCH ×2 (08:37→20:23)
[2023-06-21] MEDS: TRIAMCINOLONE ACET 0.1% CR 15 GM TUBE EXT SCH ×3 (08:37→20:26)
[2023-06-21] MEDS: ESCITALOPRAM OXALATE 10 MG TAB PO SCH (08:38)
[2023-06-21] MEDS: FAMOTIDINE 40 MG TABLET PO SCH (08:39)
[2023-06-21] MEDS: LACTULOSE SYRUP 30 GM/45 ML UDP PO SCH ×3 (08:39→20:19)
[2023-06-21] MEDS: MIDODRINE HCL 2.5 MG TAB PO SCH ×3 (08:45→17:31)
[2023-06-21] MEDS: INSULIN ASPART PER UNIT CHARGE SC SCH ×4 (08:46→20:20)
[2023-06-21] MEDS: DOCUSATE SODIUM 100 MG CAP PO SCH (09:32)
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
--- NOTE | 2023-06-21 20:07 | Hospitalist Progress Note ---
Date of Service June 21, 2023 Assessment & Plan (1) JOANNA (acute kidney injury): Plan: IMPROVING baseline Cr <1 peak Cr 1.5 s/p albumin x 48 hours, midodrine 5mg TID, octreotide drip, and holding diuretics/beta chacha Cr now 1 cont midodrine 5mg TID BMP am remove granados this am (2) Abdominal pain: Plan: etiology - suspect 2nd gastritis cont PPI cont carafate cont pepcid no other pathology on EGD yesterday s/p paracentesis 06/16. cell counts not c/w SBP and culture remains negative. she had abdominal pain during her prior hospitalization (06/06 to 06/11) -- pain had improved then with IV PPI + carafate QID. CT a/p without acute findings. she does not have clinical evidence of abdominal wall cellulitis or ferreira niculitis. (3) AMS (altered mental status): Plan: 2nd mild hepatic encephalopathy encouraged/recommended compliance with lactulose - needs at least 3BMs/day cont rifaximin BID c diff negative (4) Diabetes mellitus, type 2: Plan: Cont DM diet BSGs well controlled last hemoglobin a1c 4.6% in 03/2023 suspect that value is not accurate due to ongoing anemia issues (5) Cirrhosis: Plan: with weekly paracentesis since ~February 2023 last 2 weeks has been requiring twice weekly paracentesis last paracentesis was 06/16; cell counts not c/w SBP her edema of the LEs and ascites is actually MUCH better than my prior exams during the previous hospitalization last week she had hypotension earlier this week and developed JOANNA placed BB and diuretics on hold due to JOANNA cont lactulose cont rifaximin for HE prophylaxis follows with Dr Calvert [facility] - TIPS procedure has been discussed recently and referral was being arranged she has her TIPS consultation appt with [facility] Mcinty[facility] on Friday at 3pm -- patient aware she has continued leak from her LUQ paracentesis site - fluid collected w/ ostomy bag consulted gen surgery today for this (6) Hyperammonemia: Plan: see above needs better compliance with lactulose cont Xifaxan Recheck ammonia level am (7) Hyponatremia: Plan: 2nd cirrhosis 2nd JOANNA 2nd to diuretics improved today - was 129, now 134 BMP am (8) Portal vein thrombosis: Plan: On chronic lovenox but held due to recent paracentesis, EGD, and fluctuating H/H along with low platelets (9) Hypothyroidism: Plan: Continue levothyroxine On very large dose Follows with [facility] recent TFTs were abnormal - repeat in 3-4 weeks (10) Opioid dependence: Plan: resumed oxycodone prn albeit at low doses but hasn't needed any (11) Sleep apnea: Plan: No longer on HS CPAP (12) History of CVA (cerebrovascular accident): Plan: 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 Previously was on plavix - this has been stopped (13) Morbid obesity with BMI of 40.0-44.9, adult: (14) Refractory ascites: Plan: now having paracentesis about twice weekly outpatient GI - [facility] hepatology Dr Calvert had been preparing referral for TIPS procedure; this appt is scheduled on Friday, 06/23 at 3pm noncompliance with diuretics and salt restriction 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 continue ascites leak from recent paracentesis --> gen surg consultation (15) RUBEN (iron deficiency anemia): Plan: most recent ferritin 18 during previous admission s/p Venofer IV x 3 doses during that admission H/H fluctuate during her hospital stays but this am her Hb x 2 is <7 no overt GI bleeding but certainly the acute drop is worrisome for such ferritin this admission in the 90s defer on additional IV venofer at this time follows with CCP for iron management s/p 1 unit of PRBCs this week; H/H remain stable EGD w/o source of bleeding CBC am for stability (16) Splenic vein thrombosis: Plan: previous dx typically on once daily lovenox SC but holding (17) Hepatic encephalopathy: Plan: as above cont lactulose cont rifaximin (18) Esophageal varices: Plan: history of, but none seen on EGD yesterday holding beta chacha due to JOANNA and hypotension Plan spoke with tonight by phone - hoping for d/c home tomorrow so she can attend her TIPS consultation in [place] tomorrow Admission and Anticipated Discharge Date Admission Date: June 15, 2023 Subjective patient with improved abd pain tolerating meals multiple BMs today - did take AM and afternoon lactulose encouraged CONSISTENT lactulose use or else ammonia will rise we discussed the rise in ammonia level today (>100) denies any new complaints continues with ascites leak Review of Systems Review of Systems: cv - no cp; occasional orthopnea due to ascites pulm - no YAN neuro - no dizziness upon standing or walking Physical Exam Physical Exam: gen - sitting at side of bed, a little groggy but able to answer questions and carry conversation mouth - MMM, no thrush neck - no JVD heart - RRR, s1 s2, 1/6 EDUARDO LSB lungs - CTA b/l abd - mild-moderate ascites; prior paracentesis site on left abdomen with suture intact but continues with ascites leaking into ostomy bag; fluid is clear/elda; no HSM; no peritoneal signs; nontender ext - 1+ edema b/l, pulses 2+ b/l; some chronic lymphedema of feet/ankles neuro - mild asterixis psych - a/o x 3 Results & Data Results & Data Vital Signs (Past 12 Hours) Vital Signs Temp Pulse Resp BP BP Pulse Ox O2 Del Method 06/21/23 17:30 79 118/74 06/21/23 14:30 36.7 C 66 16 124/73 94 Room Air 06/21/23 12:26 70 103/64 06/21/23 08:49 36.8 C 70 14 103/72 98 Room Air 06/21/23 08:45 73 114/70 Laboratory Results Laboratory Results - last 24 hr 06/20/23 06/21/23 06/21/23 20:29 06:12 06:12 WBC 5.21 RBC 2.79 L Hgb 7.9 L Hct 24.6 L MCV 88.2 MCH 28.3 MCHC 32.1 RDW Std Deviation 62.6 H RDW Coeff of Henna 19.3 H Plt Count 53 L MPV 10.6 Sodium 134 L Potassium 4.6 Chloride 104 Carbon Dioxide 26 Anion Gap 4 BUN 23 Creatinine 1.03 D Est Cr Clr Drug Dosing 77.6 Est GFR ( Amer) 77.6 Est GFR (Non-Af Amer) 67.0 BUN/Creatinine Ratio 22.3 H Glucose 139 H POC Glucose 153 H Calcium 8.8 Ammonia 06/21/23 06/21/23 06/21/23 06:12 07:57 11:46 WBC RBC Hgb Hct MCV MCH MCHC RDW Std Deviation RDW Coeff of Henna Plt Count MPV Sodium Potassium Chloride Carbon Dioxide Anion Gap BUN Creatinine Est Cr Clr Drug Dosing Est GFR ( Amer) Est GFR (Non-Af Amer) BUN/Creatinine Ratio Glucose POC Glucose 126 H 126 H Calcium Ammonia 138.0 H 06/21/23 16:32 WBC RBC Hgb Hct MCV MCH MCHC RDW Std Deviation RDW Coeff of Henna Plt Count MPV Sodium Potassium Chloride Carbon Dioxide Anion Gap BUN Creatinine Est Cr Clr Drug Dosing Est GFR ( Amer) Est GFR (Non-Af Amer) BUN/Creatinine Ratio Glucose POC Glucose 178 H Calcium Ammonia PG Care Time/CCT Total # of Minutes Spent Total Time Spent with Patient: Total time spent is greater than 50% in coordination of care (as documented) at patient's floor/unit and/or counseling patient: Coding Level of Care Code 36550 SUB INP/OBS CARE 2/35MIN Diagnoses JOANNA (acute kidney injury) N17.9 Abdominal pain R10.9 AMS (altered mental status) R41.82 Diabetes mellitus, type 2 E11.9 Cirrhosis K74.60 Hyperammonemia E72.20 Hyponatremia E87.1 Portal vein thrombosis I81 Hypothyroidism E03.9 Opioid dependence F11.20 Sleep apnea G47.30 History of CVA (cerebrovascular accident) Z86.73 Morbid obesity with BMI of 40.0-44.9, adult E66.01; Z68.41 Refractory ascites R18.8 RUBEN (iron deficiency anemia) D50.9 Splenic vein thrombosis I82.890 Hepatic encephalopathy K72.90 Esophageal varices I85.00
[2023-06-21] MEDS: ALPRAZolam 0.5 MG TABLET PO PRN (22:41)
[2023-06-22] MEDS: CALCIUM CARBONATE 500 MG CHEWABLE TAB PO SCH ×3 (05:38→16:59)
[2023-06-22] MEDS: LEVOTHYROXINE SODIUM 150 MCG TABLET PO SCH (05:50)
[2023-06-22 08:12] LABS: Hematocrit (blood only) 25.1 % (37.0-47.0); Hemoglobin 8.1 g/dl (12.0-16.0); Mean Corpuscular Hemoglobin 28.5 pg (25.0-34.0); Mean Corpuscular Hgb Conc 32.3 g/dL (32.0-36.0); Mean Corpuscular Volume 88.4 fL (80.0-100.0); Mean Platelet Volume 9.6 fL (9.4-12.4); Platelet Count 56 K/uL (130-400); RDW Coefficient of Variation 19.7 % (11.5-14.5); RDW Standard Deviation 62.7 fL (36.4-46.3); Red Blood Count 2.84 M/uL (4.20-5.40); White Blood Count 3.57 K/ul (4.8-10.8)
[2023-06-22 08:33] LABS: BUN Creatinine Ratio 17.9 (10-20); Calcium 8.9 mg/dl (8.6-10.3); Creatinine Clr Calc Pharmacy 95.2 ml/min; Est GFR (African American) 99.4 ml/min; Est GFR (Non-African American) 85.7 ml/min
[2023-06-22] MEDS: rifAXIMin 550 MG TABLET PO SCH ×2 (08:45→22:04)
[2023-06-22] MEDS: MAGNESIUM OXIDE 400 MG TAB PO SCH ×2 (08:45→22:05)
[2023-06-22] MEDS: rOPINIRole HCL 2 MG TABLET PO SCH ×3 (08:45→22:05)
[2023-06-22] MEDS: FAMOTIDINE 40 MG TABLET PO SCH (08:45)
[2023-06-22] MEDS: MIDODRINE HCL 2.5 MG TAB PO SCH ×3 (08:45→16:58)
[2023-06-22] MEDS: PANTOprazole 40 MG TAB PO SCH ×2 (08:45→22:04)
[2023-06-22] MEDS: SUCRALFATE 1 GM/10 ML UDC PO SCH ×4 (08:46→22:06)
[2023-06-22] MEDS: ESCITALOPRAM OXALATE 10 MG TAB PO SCH (08:46)
[2023-06-22] MEDS: LACTULOSE SYRUP 30 GM/45 ML UDP PO SCH ×3 (08:47→21:37)
[2023-06-22] MEDS: LIDOCAINE 5% 1 PATCH TD SCH (08:48)
[2023-06-22] MEDS: TRIAMCINOLONE ACET 0.1% CR 15 GM TUBE EXT SCH ×3 (08:50→22:06)
[2023-06-22] MEDS: BENZOCAINE 20% (ORAJEL) 11.9 GM TUBE MT PRN (08:51)
[2023-06-22] MEDS: INSULIN ASPART PER UNIT CHARGE SC SCH ×4 (08:51→21:36)
[2023-06-22] MEDS: BUMETANIDE 1 MG TAB PO SCH ×2 (11:35→16:58)
[2023-06-22] MEDS: DOCUSATE SODIUM 100 MG CAP PO SCH (11:35)
[2023-06-22] MEDS: SPIRONOLACTONE 100 MG TAB PO SCH ×2 (11:36→16:58)
[2023-06-22] MEDS ORDERED: LIDOCAINE 1% LOCAL 20 ML VIAL INFIL ONE (14:29)
--- NOTE | 2023-06-22 20:40 | Hospitalist Progress Note ---
Date of Service June 22, 2023 Assessment & Plan (1) OJANNA (acute kidney injury): Plan: resolved baseline Cr <1 peak Cr 1.5 s/p albumin x 48 hours, midodrine 5mg TID, octreotide drip, and holding diuretics/beta chacha Cr now <1 BMP am (2) Abdominal pain: Plan: etiology - suspect 2nd gastritis resolved cont PPI cont carafate cont pepcid no other pathology on EGD this admission s/p paracentesis 06/16. cell counts not c/w SBP and culture remains negative. she had abdominal pain during her prior hospitalization (06/06 to 06/11) -- pain had improved then with IV PPI + carafate QID. CT a/p without acute findings. she does not have clinical evidence of abdominal wall cellulitis or panniculitis. (3) AMS (altered mental status): Plan: 2nd mild hepatic encephalopathy - resolved cont rifaximin BID c diff negative (4) Diabetes mellitus, type 2: Plan: Cont DM diet BSGs well controlled last hemoglobin a1c 4.6% in 03/2023 suspect that value is not accurate due to ongoing anemia issues (5) Cirrhosis: Plan: with weekly paracentesis since ~February 2023 last 2 weeks has been requiring twice weekly paracentesis last paracentesis was 06/16; cell counts not c/w SBP her edema of the LEs and ascites is actually MUCH better than my prior exams during the previous hospitalization last week she had hypotension earlier this week and developed JOANNA placed BB and diuretics on hold due to JOANNA cont lactulose cont rifaximin for HE prophylaxis follows with Dr Calvert [facility] - TIPS procedure has been discussed recently and referral was being arranged she has her TIPS consultation appt with Jessica Mcintyre on Friday at 3pm (TOMORROW) she has continued leak from her LUQ paracentesis site - fluid collected w/ ostomy bag; I closed the site today with a new suture (see this note) (6) Hyperammonemia: Plan: level is improved needs better compliance with lactulose - did take her scheduled doses yesterday/today and is having 5+ BMs/day cont Xifaxan Recheck ammonia level am (7) Hyponatremia: Plan: 2nd cirrhosis 2nd JOANNA 2nd to diuretics resolved was 129 now 136 BMP am (8) Portal vein thrombosis: Plan: On chronic lovenox but held due to recent paracentesis, EGD, and fluctuating H/H along with low platelets recheck cbc tomorrow if platelets are higher then resume lovenox at d/c (9) Hypothyroidism: Plan: Continue levothyroxine On very large dose Follows with [facility] recent TFTs were abnormal - repeat in 3-4 weeks (10) Opioid dependence: Plan: resumed oxycodone prn albeit at low doses but hasn't needed any (11) Sleep apnea: Plan: No longer on HS CPAP (12) History of CVA (cerebrovascular accident): Plan: 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 Previously was on plavix - this has been stopped (13) Morbid obesity with BMI of 40.0-44.9, adult: (14) Refractory ascites: Plan: now having paracentesis about twice weekly outpatient GI - [facility] Dr Calvert had been preparing referral for TIPS procedure; this appt is scheduled on Friday, 06/23 at 3pm noncompliance with diuretics and salt restriction 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 continue ascites leak from recent paracentesis --> site closed with single suture today by myself with resolution of leak (15) RUBEN (iron deficiency anemia): Plan: most recent ferritin 18 during previous admission s/p Venofer IV x 3 doses during that admission H/H fluctuate during her hospital stays but this am her Hb x 2 is <7 no overt GI bleeding but certainly the acute drop is worrisome for such ferritin this admission in the 90s defer on additional IV venofer at this time follows with [facility]CP for iron management s/p 1 unit of PRBCs this week; H/H remain stable EGD w/o source of bleeding CBC am today stable (16) Splenic vein thrombosis: Plan: previous dx typically on once daily lovenox SC but holding (17) Hepatic encephalopathy: Plan: resolved ammonia level improved ; recheck am cont lactulose cont rifaximin (18) Esophageal varices: Plan: history of, but none seen on EGD this admission holding beta chacha due to recent JOANNA and hypotension Plan spoke with this evening by phone - hoping for d/c home tomorrow AM (early) so she can attend her TIPS consultation in [place] at 3pm Admission and Anticipated Discharge Date Admission Date: June 15, 2023 Subjective no new issues today stomach pain largely resolved eating w/o difficulty no melena stools ambulating the hallways w/o dizziness or lightheadedness continues to leak ascites fluid from prior paracentesis site has had 5+ BMs today with lactulose taken this am and this afternoon we discussed re-suturing her paracentesis site to stop the ascites leak after verbal consent was obtained, the ostomy bag was removed by nursing prior suture x 1 was removed then- betadine was used to prep the paracentesis site (it continued to drip clear ascites during the procedure) 3cc of 1% lidocaine was used to anesthetize the skin locally sterile field then placed around the paracentesis hole using 3-0 nylon a single "figure of 8" suture was placed without difficulty ascites leak stopped following the above area washed with saline and dressing placed over site tolerated procedure without difficulty no blood loss pt's prefers she d/c in the am as opposed to today Review of Systems Review of Systems: gen - no fevers or chills cv - no chest pain; some orthopnea (chronic) pulm - some dyspnea if lying in a certain position in bed GI - scant abd pain, no nausea/emesis Physical Exam Physical Exam: gen - sitting at side of bed, looks good, awake, alert, oriented; no confusion mouth - MMM, no thrush neck - no JVD heart - RRR, s1 s2, 1/6 EDUARDO LSB lungs - CTA b/l abd - mild-moderate ascites - no change; prior paracentesis site on left abdomen with suture intact but continues with ascites leaking into ostomy bag; fluid is clear/elda; no HSM; no peritoneal signs; nontender ext - 1+ edema b/l - no change; pulses 2+ b/l; some chronic lymphedema of feet/ankles neuro - no asterixis psych - a/o x 3 Results & Data Results & Data Vital Signs (Past 12 Hours) Vital Signs Temp Pulse Resp BP BP Pulse Ox O2 Del Method 06/22/23 20:30 36.9 C 78 18 136/81 99 Room Air 06/22/23 15:06 36.6 C 76 16 128/75 96 Room Air 06/22/23 11:37 77 20 122/68 96 Room Air Laboratory Results Laboratory Results - last 24 hr 06/22/23 06/22/23 06/22/23 07:49 08:00 08:00 WBC 3.57 L RBC 2.84 L Hgb 8.1 L Hct 25.1 L MCV 88.4 MCH 28.5 MCHC 32.3 RDW Std Deviation 62.7 H RDW Coeff of Henna 19.7 H Plt Count 56 L MPV 9.6 Sodium 136 Potassium 4.0 Chloride 104 Carbon Dioxide 28 Anion Gap 4 BUN 15 Creatinine 0.84 Est Cr Clr Drug Dosing 95.2 Est GFR ( Amer) 99.4 Est GFR (Non-Af Amer) 85.7 BUN/Creatinine Ratio 17.9 Glucose 89 POC Glucose 101 H Calcium 8.9 Ammonia 06/22/23 06/22/23 06/22/23 08:00 11:45 16:58 WBC RBC Hgb Hct MCV MCH MCHC RDW Std Deviation RDW Coeff of Henna Plt Count MPV Sodium Potassium Chloride Carbon Dioxide Anion Gap BUN Creatinine Est Cr Clr Drug Dosing Est GFR ( Amer) Est GFR (Non-Af Amer) BUN/Creatinine Ratio Glucose POC Glucose 121 H 117 H Calcium Ammonia 89.0 H 06/22/23 20:30 WBC RBC Hgb Hct MCV MCH MCHC RDW Std Deviation RDW Coeff of Henna Plt Count MPV Sodium Potassium Chloride Carbon Dioxide Anion Gap BUN Creatinine Est Cr Clr Drug Dosing Est GFR ( Amer) Est GFR (Non-Af Amer) BUN/Creatinine Ratio Glucose POC Glucose 73 Calcium Ammonia PG Care Time/CCT Total # of Minutes Spent Total Time Spent with Patient: Total time spent is greater than 50% in coordination of care (as documented) at patient's floor/unit and/or counseling patient: Coding Level of Care Code 46871 SUB INP/OBS CARE 3/50MIN Diagnoses JOANNA (acute kidney injury) N17.9 Abdominal pain R10.9 AMS (altered mental status) R41.82 Diabetes mellitus, type 2 E11.9 Cirrhosis K74.60 Hyperammonemia E72.20 Hyponatremia E87.1 Portal vein thrombosis I81 Hypothyroidism E03.9 Opioid dependence F11.20 Sleep apnea G47.30 History of CVA (cerebrovascular accident) Z86.73 Morbid obesity with BMI of 40.0-44.9, adult E66.01; Z68.41 Refractory ascites R18.8 RUBEN (iron deficiency anemia) D50.9 Splenic vein thrombosis I82.890 Hepatic encephalopathy K72.90 Esophageal varices I85.00
[2023-06-22] MEDS: ACETAMINOPHEN 500 MG TAB PO PRN (22:05)
[2023-06-23] MEDS: CALCIUM CARBONATE 500 MG CHEWABLE TAB PO SCH ×3 (01:28→12:10)
[2023-06-23] MEDS: LEVOTHYROXINE SODIUM 150 MCG TABLET PO SCH (05:46)
[2023-06-23] MEDS: INSULIN ASPART PER UNIT CHARGE SC SCH ×2 (07:49→11:30)
[2023-06-23] MEDS: BUMETANIDE 1 MG TAB PO SCH (07:51)
[2023-06-23] MEDS: MAGNESIUM OXIDE 400 MG TAB PO SCH (07:51)
[2023-06-23] MEDS: MIDODRINE HCL 2.5 MG TAB PO SCH ×2 (07:51→12:10)
[2023-06-23] MEDS: rOPINIRole HCL 2 MG TABLET PO SCH (07:51)
[2023-06-23] MEDS: PANTOprazole 40 MG TAB PO SCH (07:51)
[2023-06-23] MEDS: SUCRALFATE 1 GM/10 ML UDC PO SCH ×2 (07:52→12:10)
[2023-06-23] MEDS: rifAXIMin 550 MG TABLET PO SCH (07:52)
[2023-06-23] MEDS: ESCITALOPRAM OXALATE 10 MG TAB PO SCH (07:52)
[2023-06-23] MEDS: LACTULOSE SYRUP 30 GM/45 ML UDP PO SCH (07:52)
[2023-06-23] MEDS: SPIRONOLACTONE 100 MG TAB PO SCH (07:52)
[2023-06-23] MEDS: FAMOTIDINE 40 MG TABLET PO SCH (07:53)
[2023-06-23] MEDS: LIDOCAINE 5% 1 PATCH TD SCH (07:53)
[2023-06-23] MEDS: DOCUSATE SODIUM 100 MG CAP PO SCH (07:54)
[2023-06-23] MEDS: TRIAMCINOLONE ACET 0.1% CR 15 GM TUBE EXT SCH (07:54)
[2023-06-23 07:56] LABS: Hematocrit (blood only) 25.4 % (37.0-47.0); Hemoglobin 8.2 g/dl (12.0-16.0); Mean Corpuscular Hemoglobin 28.6 pg (25.0-34.0); Mean Corpuscular Hgb Conc 32.3 g/dL (32.0-36.0); Mean Corpuscular Volume 88.5 fL (80.0-100.0); Mean Platelet Volume 10.5 fL (9.4-12.4); Platelet Count 52 K/uL (130-400); RDW Coefficient of Variation 19.5 % (11.5-14.5); RDW Standard Deviation 62.6 fL (36.4-46.3); Red Blood Count 2.87 M/uL (4.20-5.40); White Blood Count 2.65 K/ul (4.8-10.8)
[2023-06-23] MEDS: ACETAMINOPHEN 500 MG TAB PO PRN (08:00)
[2023-06-23 08:26] LABS: BUN Creatinine Ratio 14.8 (10-20); Calcium 8.3 mg/dl (8.6-10.3); Creatinine Clr Calc Pharmacy 90.9 ml/min; Est GFR (African American) 93.9 ml/min; Potassium 3.3 mmol/L (3.5-5.1)
[2023-06-23] MEDS ORDERED: POTASSIUM CHLORIDE CRTAB 20 MEQ TABCR PO STA ×2 (09:02→11:46)
--- NOTE | 2023-06-23 11:47 | Discharge Summary ---
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 She remained stable in the ED. Labs were significant for WBC WNL, stable anemia, platelets of 72 (down from 79 as of 06/13), stable INR of 1.4, VBG with PH of 7.45 and otherwise stable, sodium of 132, chloride of 97, total bili of 2.6 (up from 1.4 as of 06/09), stable direct bili of 0.8, AST of 66, ammonia of 89. CT of the head/brain wo con was negative for acute findings. Chest xray was also negative for acute findings. Prior to admission the patient was given 30 gm PO Lactulose. At the time of the exam the patient was sitting in bed in no acute distress w ith her sitting bedside, history was obtained from both but the patient is currently a poor historian due to her confusion. They state that the patient had a paracentesis on Friday (06/13), she is now getting a paracentesis twice weekly. Since her last paracentesis on 06/13 she has been experiencing progressive abdominal swelling, pain, and increased drainage from her sutured paracenteses sites. Her states that the drainage has been pink-red, which is not normal. They deny recent fevers, she denies recent chest pain, SOB, nausea, vomiting, dysuria hematuria, diarrhea, dysuria, hematuria, melena, and recent trauma. Her legs are always swollen but seem more severe over the past 2 days per the patient and her . When asked, her states that he does not think that she was taking her medications as prescribed yesterday. She has not had medication changes since her last discharge on 06/11. When asked, they missed her appointment with Jessica MILES on 06/13. She is a full code and wishes for her to make medical decisions for her if she cannot make them herself. Principal Diagnosis 1. Hepatic encephalopathy - improved/resolved 2. Abdominal pain - likely due to gastritis as seen on EGD - improved 3. Cirrhosis 4. Ascites with reaccumulation - paracentesis 06/16/23 negative for infection 5. Post-paracentesis leak - resolved with suture placement on 06/22; suture removal needed in 10 days 6. 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 Iron deficiency anemia 8. Leukopenia due to cirrhosis 9. History of stroke 10. History of portal vein thrombosis 11. Hypothyroidism - repeat TFTs in 4 weeks 12. Acute kidney injury - peak creatinine 1.56; discharge creatinine 0.8 13. Chronic headaches Discharge Exam gen - resting comfortably in bed, awake, alert, oriented; no confusion mouth - MMM, no thrush neck - no JVD heart - RRR, s1 s2, 1/6 EDUARDO LSB lungs - CTA b/l abd - mild-moderate ascites - no change; prior paracentesis site on left abdomen with optifoam in place; no HSM; no peritoneal signs; nontender ext - <1+ edema b/l; pulses 2+ b/l; some chronic lymphedema of feet/ankles neuro - no asterixis psych - a/o x 3 Discharge Data Allergies Allergy/AdvReac Type Severity Reaction Status Date / Time codeine Allergy Unknown Hives, Verified 06/20/23 08:32 [From Tylenol-Codeine #3] skin redness (Tyenol #3) Consultations [facility] Gastroenterology [facility] General Surgery Procedures Performed Operation Date: 06/20/23 16:30 Actual Procedures p EGD Biopsy Cytology - Paulino Cerrato MD Findings: The examined esophagus was normal. No evidence of esophageal varices. Diffuse moderate inflammation characterized by erythema was found in the stomach. Biopsies were taken with a cold forceps for Helicobacter pylori testing. Estimated blood loss: none. The duodenal bulb and second portion of the duodenum were normal. no active bleeding noted. PRBCs x 1 unit Ordered Studies Chest X-Ray 06/15/23 10:40 XR chest 1V portable CLINICAL HISTORY: ams TECHNIQUE: Single frontal radiograph of the chest was obtained. Comparison: Comparison is made to chest radiograph 06/05/2023 FINDINGS: Cervical fixation hardware is seen. The cardiomediastinal silhouette is normal. The lungs are clear. No evidence of pleural effusion or pneumothorax. IMPRESSION: No acute chest disease. ACT 112: Negative or not required by law. Electronically signed by: Mohit Perez M.D. 06/15/2023 11:[address] 06/15/23 10:40 CT head/brain wo con CLINICAL HISTORY: ams Technique: Contiguous axial CT images of the head were acquired from the base of the skull to the vertex without intravenous contrast administration. Images were viewed in brain, subdural and bone windows. Automated dose lowering techniques and/or adjustment according to patient size were utilized for this exam. Comparison: Comparison is made to CT head 05/07/2023 Findings: The ventricles, basal cisterns, and cerebral sulci are normal. There is no acute intracranial hemorrhage or evidence of acute territorial infarction. Neither mass effect, shift of the midline structures, nor abnormal extra-axial fluid collections are shown. Calcification of the falx is seen. Imaged portions of the paranasal sinuses and mastoid air cells are clear. The orbits appear normal. There are no acute fractures of the calvaria or scalp swelling. Impression: No acute intracranial hemorrhage, no evidence of acute territorial infarction or other acute intracranial disease process. ACT 112: Negative or not required by law. Electronically signed by: Mohit Perez M.D. 06/15/2023 12:02 PM Abdomen/Pelvis CT 06/15/23 13:10 CT abd pelvis IV con only CLINICAL HISTORY: cirrhosis, concern for SBO/abd infection TECHNIQUE: Helical axial images of the abdomen and pelvis were obtained and displayed. Automated dose lowering techniques and/or adjustment according to patient size were utilized for this exam. This exam was performed with intravenous contrast. CT DOSE: 1392.54 mGy.cm COMPARISON: Comparison is made to CT abdomen pelvis 03/30/2023 FINDINGS: Lower chest: No acute abnormality. Liver: Nodular contour of the liver is seen compatible with cirrhosis. Gallbladder and biliary tree: Patient is status post cholecystectomy. No intra- or extrahepatic biliary ductal dilation. Pancreas: Unremarkable, no focal lesions. Spleen: Splenomegaly is noted, the spleen measures 17.6 cm. Adrenals: Unremarkable. Kidneys and ureters: Unremarkable. Bladder: Limited evaluation due to underdistention. Reproductive organs: Patient is status post hysterectomy. Bowel: Patient is status post gastric surgery. No evidence of small bowel obstruction or other acute abnormality. Lymph nodes Retroperitoneal: Unremarkable. Pelvic: Unremarkable. Mesenteric: Unremarkable. Peritoneum: Moderate to large ascites noted. Vessels: Varices are seen most prominently about the spleen. There is recanalization of the umbilical vein. Abdominal wall: Body wall edema is seen. Soft tissue densities in the anterior pannus may represent injection granulomata. Bones: Unremarkable. IMPRESSION: 1. No acute abnormalities and in particular no evidence of small bowel obstruction. 2. Cirrhosis with stigmata of portal hypertension. 3. Moderate to large ascites and body wall edema. ACT 112: Negative or not required by law. Electronically signed by: Mohit Perez M.D. 06/15/2023 3:34 PM Paracentesis Ultrasound 06/16/23 00:00 Ultrasound-guided paracentesis INDICATION: Ascites PROCEDURE: Procedure and risks were explained. Informed consent was obtained. A final timeout was completed. The abdomen was prepped and draped in sterile fashion. 1% buffered lidocaine was utilized for skin anesthesia. Utilizing ultrasound guidance, a 5 Pashto safety centesis catheter was advanced into the left upper quadrant pocket of ascites. Ultrasound images were obtained. A total of 3.4 L of ascites fluid was removed, with 1 L sent to lab for analysis. The catheter was removed and one 2-0 silk suture was utilized to close the puncture site. The patient tolerated the procedure well. Vital signs will be monitored on the floor. IMPRESSION: Paracentesis as above. Performed, dictated, and signed by Marvin Greene PA-C; to be co-signed by Dr. Guero Garcia. Electronically signed by: Guero Garcia M.D. 06/16/2023 5:19 PM Hospital Course (1) Hepatic encephalopathy: Presented with hepatic encephalopathy. Admission ammonia level was 89. Improved with lactulose + rifaximin. Later in the stay her ammonia levels constance to >100 and once again she had mild hepatic encephalopathy symptoms. Improved with increased lactulose dosing. Ammonia level prior to discharge was <80. She was counseled multiple times on importance of compliance with lactulose as well as her rifaximin. (2) JOANNA (acute kidney injury): resolved baseline Cr <1 peak Cr 1.5 s/p albumin x 48 hours, midodrine TID, octreotide drip, and holding her diuretics/beta chacha Cr was 0.88 at discharge suspect JOANNA was pre-renal in etiology as a result of increased diuretic usage early in the hospitalization can't rule out HRS but much less likely (3) Abdominal pain: etiology - suspect 2nd gastritis as seen on EGD; no other pathology on EGD to account for her pain pain resolved by time of discharge cont PPI cont carafate cont pepcid s/p paracentesis 06/16/23 by interventional radiology cell counts not c/w SBP and culture remained negative she had abdominal pain during her prior hospitalization (06/06 to 06/11) -- pain had improved then with IV PPI + carafate QID CT a/p without acute findings she never had clinical evidence of abdominal wall cellulitis or panniculitis (4) AMS (altered mental status): 2nd mild hepatic encephalopathy - resolved cont rifaximin BID c diff negative (5) Diabetes mellitus, type 2: Continue DM diet BSGs well controlled while here last hemoglobin a1c was 4.6% in 03/2023 suspect that value is not accurate due to ongoing anemia issues (6) Cirrhosis: with weekly paracentesis since ~February 2023 last 2 weeks has been requiring twice weekly paracentesis last paracentesis was 06/16; cell counts not c/w SBP she had a post-paracentesis leak from the 06/16 paracentesis procedure on 06/22 a single 3-0 nylon suture was placed to close this site her edema of the LEs and ascites is actually MUCH better than my prior exams during the previous hospitalization last week she had hypotension earlier this week and developed JOANNA placed BB and diuretics on hold due to JOANNA; at discharge she was resumed on her usual diuretics including bumex 2mg BID along with aldactone 100mg BID cont lactulose cont rifaximin for HE prophylaxis follows with Dr Calvert - [facility] she has a TIPS consultation appt with Jessica Mcintyre on Friday06/23/23 (7) Hyponatremia: 2nd cirrhosis 2nd JOANNA 2nd to diuretics resolved was 129 now 136 (8) Portal vein thrombosis: On chronic lovenox but held due to recent paracentesis, EGD, and fluctuating H/H along with low platelets lovenox held at discharge due to platelet count of 52 (9) Hypothyroidism: Continue levothyroxine On very large dose of 300mcg daily Follows with [facility] Endocrinology Recent TFTs were abnormal - repeat levels needed in 3-4 weeks as outpatient (10) Opioid dependence: oxycodone prn (11) Sleep apnea: No longer on HS CPAP (12) History of CVA (cerebrovascular accident): 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 Previously was on plavix - this has been stopped (13) Morbid obesity with BMI of 40.0-44.9, adult: (14) Refractory ascites: now having paracentesis about twice [facility] had been preparing referral for TIPS procedure; this appt is scheduled on Friday, 06/23 at 3pm noncompliance with diuretics and salt restriction 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 diuretics had been held during the stay for several days due to JOANNA at discharge resumed on bumex 2mg BID + aldactone 100mg BID (15) RUBEN (iron deficiency anemia): most recent ferritin 18 during previous admission s/p Venofer IV x 3 doses during that admission ferritin this admission in the 90s deferred on additional IV venofer at this time follows with [facility] for iron management s/p 1 unit of PRBCs during this hospitalization EGD was completed by [facility] GI due to drop in H/H EGD w/o source of bleeding Discharge hemoglobin was 8.2 (16) Splenic vein thrombosis: previous dx typically on once daily lovenox SC but holding such due to thrombocytopenia (discharge level 52) (17) Esophageal varices: history of, but none seen on EGD this admission holding beta chacha due to recent JOANNA and hypotension Total Time Total Time Spent Total Time Spent (In Minutes): 50 Discharge Plan Discharge Items Patient Disposition: Home - Home Health Services Reason For Visit: Confusion Discharge Diagnosis: 1. Confusion at time of admission - due to elevated ammonia levels ("hepatic encephalopathy") - improved/resolved 2. Abdominal pain - likely due to gastritis as seen on EGD - improved 3. Cirrhosis 4. Ascites with reaccumulation - paracentesis 06/16 negative for infection 5. Post-paracentesis leak - resolved with suture placement on 06/22; suture removal needed in 10 days 6. Low platelets - due to cirrhosis 7. Iron deficiency anemia 8. Low white blood cell count - due to cirrhosis 9. History of stroke 10. History of portal vein thrombosis 11. Hypothyroidism - repeat thyroid blood test needed in about 4 weeks 12. Acute kidney injury - peak creatinine 1.56; discharge creatinine 0.8 (normal) 13. Chronic headaches Activity: Resume your previous activity Activity Comment: as tolerated Non-emergency contact: Primary Care Provider and Textile Supervisor Call non-emergency contact if: you have any medication questions, your symptoms worsen and you have a fever Follow-up/Referrals: Endy Stanley D.O. [Primary Care Provider] - 06/27/23 10:00 am (within 1 week ) Hilda Calvert DO [Physician] - (see Dr Calvert in early June as scheduled at [facility]) Diet: Carb Consistent or DM2 and Low Sodium (2gm) Fluids: 1800ml (7 cups) Addtl Attending Provider Instructions: Mrs Gutiérrez, You were admitted to [facility] due to confusion and abdominal pain. Your confusion was due to elevated ammonia levels. This improved with lactulose and rifaximin. Your abdominal pain was likely due to gastritis of the stomach which is irritation of the stomach lining. Your pain improved with increased acid reducers. Ascites fluid removed by interventional radiology on 06/16 did NOT show infection. We found no other infections while here. You required a blood transfusion for your anemia. Upper endoscopy was done due to concerns that bleeding was causing the anemia. We did not see bleeding in your esophagus or stomach. Varices were also NOT found in your esophagus this time. You had a leaking paracentesis site and a new stitch was placed on 06/22 across this site. The leaking has stopped. Please have your primary care doctor or Mr Greene from interventional radiology at [facility] remove that stitch in about 10 days. During the stay you developed low blood pressure and your kidney function temporarily deteriorated. Your kidney function improved with use of midodrine, albumin infusions, and octreotide. Your low blood pressure improved with the above as well. Since your platelet count is 52 (normal 150 or higher) please do NOT take your lovenox injection at this time. Your discharge hemoglobin level is 8.2. Your discharge white blood cell level is 2.6. Recommendations - 1. Please DO NOT TAKE the following medications - * lovenox injection * metoprolol succinate * methocarbamol * Tradjenta * oxycodone if at all possible DO NOT TAKE anti-inflammatory pills of any kind. This includes aspirin, motrin, ibuprofen, alleve, naprosyn. 2. For your stomach - * INCREASE pantoprazole to 40mg twice daily * sucralfate (carafate) 1gm prior to meals as needed for reflux/stomach upset/stomach discomfort 3. For your blood pressure (to keep it in normal range) - * midodrine 2.5mg with breakfast, lunch, and dinner 4. Diet - * LIMIT TOTAL SALT INTAKE to NO MORE than 2000mg (2 grams) in a 24 hour period * if you watch your salt intake you are less likely to develop fluid retention in your abdomen and legs * see handout on low salt * high salt culprits include - fast foods, fried foods, certain frozen goods (TV dinners, etc), canned soup, potato chips, etc * please avoid these foods 5. Titrate (increase or decrease) your lactulose to have 3 bowel movements every day. On average you need to take the lactulose at least twice a day. 6. You will need repeat thyroid blood tests in about 4 weeks. Please have your family doctor or your rubber splicer do this for you. 7. I would recommend a repeat blood test later this week when you come for your paracentesis. These labs can be drawn at the main hospital lab. I will place lab orders for you. Follow-up - * primary care within 1 week * Dr Calvert - hepatology with Jessica - as scheduled in early June * Jessica Mcintyre - TODAY at 3pm; TIPS procedure evaluation; bring the packet with the 2 CDs and endoscopy report to that appointment * I will let Mr Greene in interventional radiology know to re-schedule your paracentesis to later this week Return to [facility] ER if - * you develop worsening shortness of breath * you have fever over 100 degrees * you have uncontrolled pain in any location especially the abdomen * any other concerns It was our pleasure to care for you! -Dr Rodriguez Pending Studies at Discharge: No Stand-Alone Forms: My [facility], Smoking Cessation Medications and DC Order Prescriptions: New midodrine 2.5 mg Tablet 2.5 mg PO TID@0800,1200,1700 Qty: 60 2RF Rx Instructions: to prevent low blood pressure triamcinolone acetonide 0.1 % Cream 1 applic EXT TID PRN (Reason: dry, itchy skin on legs/abdominal wall) Qty: 15 0RF Rx Instructions: use for 5 days then stop. Apply in very thin amounts only. Continued docusate sodium 100 mg capsule 100 mg PO DAILY levothyroxine 300 mcg tablet 300 mcg PO DAILY magnesium oxide 400 mg (241.3 mg magnesium) Tablet 400 mg PO BID Qty: 60 0RF bumetanide 1 mg tablet 2 mg PO BID ondansetron 8 mg tablet,disintegrating 8 mg translingual Q8 PRN (Reason: Nausea) ropinirole 4 mg tablet 4 mg PO TID escitalopram oxalate 10 mg tablet 10 mg PO DAILY alprazolam 1 mg tablet 1 mg PO BID PRN (Reason: Anxiety) valacyclovir 500 mg Tablet 500 mg PO Q8 PRN (Reason: .BREAKOUTS) famotidine 20 mg Tablet 40 mg PO DAILY Mouth Kote Aerosol,[place] 1 spray MUCOUS MEMBRANE QID PRN (Reason: .DRY MOUTH) cholecalciferol (vitamin D3) [Vitamin D3] 125 mcg (5,000 unit) Tablet 125 mcg PO DAILY Xifaxan 550 mg tablet 550 mg PO Q12 Kristalose Powder 1 dose PO TID Rx Instructions: 30 GRAM PER 1.5 PACKET. Does not take as much if she has more then 3 bms or gets diarrhea. Tums Gas Relief 750mg/80mg 1 tab PO Q6 spironolactone 100 mg Tablet 100 mg PO BID17 Qty: 60 5RF potassium chloride 20 mEq/15 mL liquid 20 meq PO BID Qty: 473 0RF acetaminophen 500 mg capsule 500 mg PO Q6H PRN (Reason: Pain) Qty: 1 0RF Rx Instructions: maximum 2000mg in 24 hours; over the counter. Combivent Respimat 20-100 mcg/actuation Mist 1 puff INHALATION QID PRN (Reason: cough/wheeze/shortness of breath) Qty: 1 0RF Rx Instructions: space evenly during waking hours Changed sucralfate 1 gram tablet 1 g PO AC PRN (Reason: stomach upset/heartburn) Qty: 30 0RF Held oxycodone 15 mg tablet 15 mg PO Q6 PRN (Reason: Pain) Hold Instructions: These make you VERY SLEEPY and confused. Please hold. Tradjenta 5 mg tablet 5 mg PO DAILY Hold Instructions: HOLD unless your family doctor recommends resuming. Your blood sugars have been well-controlled at [facility] without this medication. enoxaparin 100 mg/mL syringe 150 mg subcut DAILY Qty: 45 3RF Hold Instructions: HOLD due to low platelets; only resume if Dr Calvert recommends resuming it. Rx Instructions: take once a day if you have 150mg syringes substitute and make one month supply Discontinued methocarbamol 750 mg Tablet 750 mg PO TID PRN (Reason: muscle spasms) pantoprazole 40 mg Tablet,Delayed Release (Dr/Ec) 40 mg PO QAM 14 Days Qty: 14 0RF metoprolol succinate [Toprol XL] 25 mg Tablet Extended Release 24 Hr 12.5 mg PO DAILY No Action pantoprazole [Protonix] 40 mg tablet,delayed release (DR/EC) 40 mg PO DAILY Qty: 60 0RF Discharge Orders: Discharge Order (Routine); Ordered 06/23/23 Ordered By: Yan Tamayo/Other Patient Handouts: Tips for Using Less Salt, Managing Type 2 Diabetes, Low Salt Diet Dc Admission Data Admit Date/Time: 06/15/23 12:42 Attending Provider: Yan Rodriguez Admit Provider: Yan Stevens Primary Care Provider: Endy Stanley Other Providers: [place]; Yan Stevens; Hroacio Barrett; Marvin Black Other Interventions: Discharge Summary Assessment (RN) Last Done: 06/23/23 11:33 Coding Level of Care Code 61508 INP/OBS DISCH >30 MIN Diagnoses Hepatic encephalopathy K72.90 JOANNA (acute kidney injury) N17.9 Abdominal pain R10.9 AMS (altered mental status) R41.82 Diabetes mellitus, type 2 E11.9 Cirrhosis K74.60 Hyponatremia E87.1 Portal vein thrombosis I81 Hypothyroidism E03.9 Opioid dependence F11.20 Sleep apnea G47.30 History of CVA (cerebrovascular accident) Z86.73 Morbid obesity with BMI of 40.0-44.9, adult E66.01; Z68.41 Refractory ascites R18.8 RUBEN (iron deficiency anemia) D50.9 Splenic vein thrombosis I82.890 Esophageal varices I85.00
== END 2023-06-23 12:35 | disposition home health service (06) | DRG 441 ==
LOC: ED 10:05 → SUATTDRO 12:42 → 2N 12:42 → 3W 06-18 23:03

== ENCOUNTER 2023-07-01 09:22 | Observation (INO) ==
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
--- NOTE | 2023-07-01 10:02 | XRay Report ---
SINGLE VIEW CHEST CLINICAL HISTORY: Sepsis. FINDINGS: An AP, portable, upright chest radiograph is compared to study dated 06/15/2023 and correla sangeeta with chest CT dated 03/26/2023. The cardiac silhouette appears enlarged. There is pulmonary vascula r congestion. Bilateral airspace opacities are noted. No large pleural effusion or pneumothorax is se en. The bony thorax is grossly intact. Fusion hardware is noted in the lower cervical spine. Calcific tendinopathy is seen in the right shoulder. IMPRESSION: 1. The cardiac silhouette appears enlarged and there is pulmonary vascular congestion. 2. Bilateral airspace opacities likely represent pulmonary edema. Correlate clinically for evidence o f a superimposed infectious/inflammatory pneumonitis. Radiographic follow-up to resolution is recomme nded. ACT 112: Negative or not required by law. Electronically signed by: Davide Vines M.D. 07/01/2023 10:00 AM
[2023-07-01 10:26] LABS: Base Excess VBG 5.8 mEq/L; HCO3 VBG 31 mmol/L; Oxygen Saturation VBG 77.8 %; PCO2 VBG 47 mmHg (38-50); PO2 VBG 47 mmHg; pH VBG 7.43 (7.36-7.41)
[2023-07-01 10:27] LABS: Basophils # (auto) 0.02 K/uL (0.00-0.20); Basophils % (auto) 0.5 %; Eosinophils # (auto) 0.15 K/uL (0.00-0.50); Hematocrit (blood only) 25.8 % (37.0-47.0); Hemoglobin 8.4 g/dl (12.0-16.0); Immature Granulocytes # (auto) 0.02 K/uL (0.01-0.20); Immature Granulocytes % (auto) 0.5 %; Lymphocytes % (auto) 13.4 %; Mean Corpuscular Hemoglobin 28.1 pg (25.0-34.0); Mean Corpuscular Hgb Conc 32.6 g/dL (32.0-36.0); Mean Corpuscular Volume 86.3 fL (80.0-100.0); Mean Platelet Volume 10.2 fL (9.4-12.4); Monocytes # (auto) 0.38 K/uL (0.11-0.59); Monocytes % (auto) 10.2 %; Neutrophils # (auto) 2.67 K/uL (1.40-6.50); Neutrophils % (auto) 71.4 %; Platelet Count 52 K/uL (130-400); RDW Coefficient of Variation 19.7 % (11.5-14.5); RDW Standard Deviation 62.1 fL (36.4-46.3); Red Blood Count 2.99 M/uL (4.20-5.40); White Blood Count 3.74 K/ul (4.8-10.8)
--- NOTE | 2023-07-01 10:38 | CT Scan Report ---
HEAD CT NONCONTRAST CT DOSE: 1094.1 mGy.cm HISTORY: Altered mental status. Confusion. TECHNIQUE: Multiaxial CT images of the head were performed without the use of intravenous contrast. A utomated exposure control was utilized for this study. A dose lowering technique was utilized adheri ng to the principles of ALARA. Comparison: Head CT 06/15/2023. Findings: The paranasal sinuses and mastoid air cells are clear. The calvarium and skull base are int act. The ventricles and sulci are within normal limits. There is no mass, hematoma, midline shift, or acute infarct. Impression: No acute intracranial abnormality. ACT 112: Negative or not required by law. Electronically signed by: Forrest Byrne M.D. 07/01/2023 10:36 AM
[2023-07-01] MEDS ORDERED: LACTULOSE SYRUP 30 GM/45 ML UDP PO STA (10:43)
[2023-07-01 10:44] LABS: Alanine Aminotransferase 23 U/L (7-52); Albumin Level 3.5 gm/dl (3.4-5.0); Alkaline Phosphatase 59 U/L (34-104); Anion Gap 8 (3-11); Aspartate Aminotransferase 56 U/L (13-39); BUN Creatinine Ratio 17.5 (10-20); Bilirubin Direct 0.6 mg/dl (0-0.2); Bilirubin,Total 1.9 mg/dl (0.2-1.0); Blood Urea Nitrogen 30 mg/dl (6-23); C Reactive Protein 1.23 mg/dl (0-0.5); Calcium 9.1 mg/dl (8.6-10.3); Carbon Dioxide 30 mmol/L (21-32); Chloride 96 mmol/L (98-107); Creatine Kinase 263 U/L (26-192); Est GFR (African American) 42.1 ml/min; Est GFR (Non-African American) 36.3 ml/min; Glucose 83 mg/dl (70-99(Fasting)); Magnesium 1.9 mg/dl (1.7-2.4); Potassium 3.1 mmol/L (3.5-5.1); Sodium 134 mmol/L (136-145); Total Protein 6.1 gm/dl (6.0-8.3)
[2023-07-01 10:50] LABS: Troponin I High Sensitivity 3.7 pg/ml (0-14)
[2023-07-01 10:54] LABS: INR 1.4 (0.9-1.1); Partial Thromboplastin Time 26.8 Seconds (21.0-31.0); Prothrombin Time 14.7 Seconds (9.0-12.0)
[2023-07-01 10:59] LABS: Thyroid Stimulating Hormone 33.164 uIu/ml (0.300-4.500)
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
[2023-07-01 11:33] LABS: T4 Free Thyroxine 0.72 ng/dl (0.61-1.60)
[2023-07-01 12:30] LABS: Influenza A virus by PCR Negative (Neg); Influenza B virus by PCR Negative (Neg); RSV by PCR Negative (Neg); SARS CoV2 RNA(COVID-19) Ceph NEGATIVE (Negative)
[2023-07-01] MEDS ORDERED: MAGNESIUM SULFATE / D5W 1 GM/100 ML BAG IV STA (12:40)
[2023-07-01] MEDS ORDERED: CARBOHYDRATES FOR HYPOGLYCEMIA PO PRN (12:45)
[2023-07-01] MEDS ORDERED: GLUCOSE 40% GEL 15 GM TUBE PO PRN (12:45)
[2023-07-01] MEDS ORDERED: GLUCOSE 10 TAB/TUBE PO PRN (12:45)
[2023-07-01] MEDS ORDERED: GLUCAGON FOR INJ 1 MG VIAL SQ PRN (12:45)
[2023-07-01] MEDS ORDERED: DEXTROSE 50% 50 ML SYRINGE IV PRN (12:45)
[2023-07-01 13:04] LABS: Appearance Urine Turbid (Clear); Bacteria Urine Automated Negative (Negative); Bilirubin Urine Negative (Negative); Blood Urine Negative (Negative); Color Urine Yellow; Glucose Urine UA Negative (Negative); Ketones Urine Negative (Negative); Leukocyte Esterase Urine 1+ (Negative); Nitrite Urine Negative (Negative); Protein Urine Negative (Negative); RBC Urine Automated 0-4 /hpf (0-4); Urobilinogen Urine Negative (Negative)
[2023-07-01 13:31] LABS: Amphetamines+Metham, Urine Neg (Neg); Barbiturates, Urine Pos (Neg); Benzodiazepine, Urine Pos (Neg); Cocaine, Urine Neg (Neg); MDMA (Ecstacy), Urine Neg (Neg); Methadone, Urine Neg (Neg); Opiate, Urine Pos (Neg); Phencyclidine, Urine Neg (Neg)
--- NOTE | 2023-07-01 13:55 | Electrocardiogram Report ---
Test Reason : Blood Pressure : / mmHG Vent. Rate : 073 BPM Atrial Rate : 073 BPM P-R Int : 152 ms QRS Dur : 092 ms QT Int : 530 ms P-R-T Axes : 060 008 036 degrees QTc Int : 583 ms Normal sinus rhythm Low voltage QRS Cannot rule out Anterior infarct (cited on or before 15-JUN-2023) Prolonged QT Abnormal ECG When compared with ECG of 15-JUN-2023 11:11, No significant change was found Confirmed by Mikal Blue ([id number]) on 07/01/2023 1:54:54 PM Referred By: REFERRED SELF Confirmed By:Mikal Blue
[2023-07-01] MEDS ORDERED: SUCRALFATE 1 GM TAB PO PRN (16:44)
[2023-07-01] MEDS ORDERED: TRIAMCINOLONE ACET 0.1% CR 15 GM TUBE EXT PRN (16:44)
[2023-07-01] MEDS ORDERED: valACYclovir HCL 500 MG TABLET PO PRN (16:44)
[2023-07-01] MEDS ORDERED: IPRATROPIUM BROMIDE/ALBUTEROL respimat INH INH PRN (16:44)
[2023-07-01] MEDS ORDERED: ARTIFICIAL SALIVA MUCOUS MEMBRANE PRN (16:44)
[2023-07-01] MEDS ORDERED: ACETAMINOPHEN 325 MG TAB PO PRN (16:44)
[2023-07-01] MEDS: INSULIN ASPART PER UNIT CHARGE SC SCH ×2 (16:45→22:15)
[2023-07-01] MEDS ORDERED: ALBUTEROL HFA 8 GM INHALER INH PRN (17:27)
[2023-07-01] MEDS ORDERED: IPRATROPIUM BROMIDE HFA INHALER INH PRN (17:27)
[2023-07-01] MEDS: MIDODRINE HCL 2.5 MG TAB PO SCH (19:54)
[2023-07-01] MEDS: SPIRONOLACTONE 100 MG TAB PO SCH (19:55)
[2023-07-01] MEDS: rOPINIRole HCL 2 MG TABLET PO SCH ×2 (19:55→22:17)
[2023-07-01] MEDS: LACTULOSE SYRUP 30 GM/45 ML UDP PO SCH (19:56)
[2023-07-01] MEDS: CALCIUM CARBONATE 500 MG CHEWABLE TAB PO SCH ×2 (19:57→23:50)
[2023-07-01] MEDS: POTASSIUM CHLORIDE 20 MEQ/15 ML UDC PO SCH (22:16)
[2023-07-01] MEDS: MAGNESIUM OXIDE 400 MG TAB PO SCH (22:18)
[2023-07-01] MEDS: rifAXIMin 550 MG TABLET PO SCH (22:19)
[2023-07-01] MEDS ORDERED: ONDANSETRON INJ 2 MG/ML 2 ML VIAL IV STA (23:53)
[2023-07-02] MEDS: ALPRAZolam 0.5 MG TABLET PO PRN ×2 (00:13→22:04)
[2023-07-02] MEDS: CALCIUM CARBONATE 500 MG CHEWABLE TAB PO SCH ×3 (05:02→18:12)
[2023-07-02 05:24] LABS: Basophils # (auto) 0.04 K/uL (0.00-0.20); Basophils % (auto) 1.1 %; Eosinophils # (auto) 0.09 K/uL (0.00-0.50); Eosinophils % (auto) 2.5 %; Hematocrit (blood only) 24.4 % (37.0-47.0); Hemoglobin 7.9 g/dl (12.0-16.0); Immature Granulocytes # (auto) 0.01 K/uL (0.01-0.20); Immature Granulocytes % (auto) 0.3 %; Lymphocytes # (auto) 0.62 K/uL (1.20-3.40); Lymphocytes % (auto) 17.3 %; Mean Corpuscular Hemoglobin 27.8 pg (25.0-34.0); Mean Corpuscular Hgb Conc 32.4 g/dL (32.0-36.0); Mean Corpuscular Volume 85.9 fL (80.0-100.0); Mean Platelet Volume 10.8 fL (9.4-12.4); Monocytes # (auto) 0.49 K/uL (0.11-0.59); Monocytes % (auto) 13.7 %; Neutrophils # (auto) 2.33 K/uL (1.40-6.50); Neutrophils % (auto) 65.1 %; Platelet Count 56 K/uL (130-400); RDW Coefficient of Variation 19.8 % (11.5-14.5); RDW Standard Deviation 61.6 fL (36.4-46.3); Red Blood Count 2.84 M/uL (4.20-5.40); White Blood Count 3.58 K/ul (4.8-10.8)
[2023-07-02 05:33] LABS: INR 1.4 (0.9-1.1); Prothrombin Time 15.4 Seconds (9.0-12.0)
[2023-07-02 05:36] LABS: Albumin Level 3.1 gm/dl (3.4-5.0); Bilirubin,Total 2.1 mg/dl (0.2-1.0); Calcium 8.6 mg/dl (8.6-10.3); Magnesium 2.2 mg/dl (1.7-2.4); Potassium 3.1 mmol/L (3.5-5.1)
[2023-07-02 05:42] LABS: Albumin Globulin Ratio 1.2 (0.9-2); BUN Creatinine Ratio 20.5 (10-20); Creatinine Clr Calc Pharmacy 72.6 ml/min; Est GFR (African American) 57.5 ml/min; Est GFR (Non-African American) 49.6 ml/min; Globulin 2.5 gm/dl (2.5-4.0); Total Protein 5.6 gm/dl (6.0-8.3)
[2023-07-02 07:07] LABS: Estimated Average Glucose 97 mg/dl
[2023-07-02] MEDS: LEVOTHYROXINE SODIUM 150 MCG TABLET PO SCH (07:57)
[2023-07-02 07:58] LABS: RBC Morphology Unremarkable
[2023-07-02] MEDS ORDERED: PANTOprazole 40 MG TAB PO SCH (09:00)
[2023-07-02] MEDS: MAGNESIUM OXIDE 400 MG TAB PO SCH ×2 (09:03→20:46)
[2023-07-02] MEDS: rifAXIMin 550 MG TABLET PO SCH ×2 (09:03→20:46)
[2023-07-02] MEDS: MIDODRINE HCL 2.5 MG TAB PO SCH ×3 (09:03→17:59)
[2023-07-02] MEDS: SPIRONOLACTONE 100 MG TAB PO SCH ×2 (09:03→18:12)
[2023-07-02] MEDS: DOCUSATE SODIUM 100 MG CAP PO SCH (09:03)
[2023-07-02] MEDS: LACTULOSE SYRUP 30 GM/45 ML UDP PO SCH ×3 (09:04→20:45)
[2023-07-02] MEDS: FAMOTIDINE 40 MG TABLET PO SCH (09:04)
[2023-07-02] MEDS: POTASSIUM CHLORIDE 20 MEQ/15 ML UDC PO SCH ×3 (09:04→20:46)
[2023-07-02] MEDS: rOPINIRole HCL 2 MG TABLET PO SCH ×3 (09:04→20:47)
[2023-07-02] MEDS ORDERED: ONDANSETRON INJ 2 MG/ML 2 ML VIAL IV PRN (10:03)
[2023-07-02] MEDS: INSULIN ASPART PER UNIT CHARGE SC SCH ×4 (10:12→20:42)
[2023-07-02] MEDS ORDERED: oxyCODONE HCL IR 5 MG TAB (IMMEDIATE RELEASE) PO STA ×2 (13:23→22:26)
[2023-07-02] MEDS ORDERED: METOCLOPRAMIDE HCL INJ 5 MG/ML 2 ML VIAL IV ONE (14:34)
[2023-07-02] MEDS: SUCRALFATE 1 GM TAB PO SCH (17:25)
--- NOTE | 2023-07-02 20:16 | Hospitalist Progress Note ---
Date of Service July 02, 2023 Assessment & Plan (1) Acute hepatic encephalopathy: Plan: improving with rifaximin BID + lactulose TID has had recurrent admissions for this issue cause - usually 2nd to noncompliance with lactulose during prior admissions she often declines taking the lactulose, sometimes for 1-2 days at a time she gets frustrated by the diarrhea she has from such either way she is improving recheck ammonia level am (2) Diabetes mellitus, type 2: Plan: HbA1c 5% l Hold Tradjenta loose novolog SSI (3) Prolonged QT interval: Plan: QTc >500mec 2nd electrolyte deficiencies, medications, etc replace low K keep mag wnl holding lexapro recheck EKG in am cautious use with anti-emetics although she needs them due to frequent nausea (4) Hypokalemia: Plan: increase K supplement to 40meq TID BMP am 2nd bumex, diarrhea, etc (5) Cirrhosis: Plan: follows with Dr Calvert, [facility] [place] has appt with her tomorrow - perhaps we can get it switched to telehealth? will call in am recent TIPS evaluation - felt not to be candidate despite frequent paracentesis cont diuretics paracentesis tomorrow by IR repeat labs am (6) Portal vein thrombosis: Plan: Hold Lovenox due to low platelet count at 52 Continue to monitor platelets daily (7) Anemia: Plan: 2nd Fe def, cirrhosis, etc daily CBC (8) Hypothyroidism: Plan: TSH elevated at 33.164 Free T4 WNL at 0.72 Continue levothyroxine Compliance?? is she absorbing the medication?? (9) Hyponatremia: Plan: Na mildly low at 134 Chronic 2nd to cirrhosis, diuretics, etc (10) Morbid obesity with BMI of 40.0-44.9, adult: (11) JOANNA (acute kidney injury): Plan: typical Cr <1 now 1.3 bmp in am required albumin infusions, octreotide, and midodrine last admission for JOANNA (12) Refractory ascites: Plan: 2nd to noncompliance with low salt diet along with diuretics plan for paracentesis tomorrow by IR (13) Opioid dependence: Plan: has taken oxycodone for chronic headaches and other ailments limit this as she is often very sleepy from the meds (14) Pancytopenia: Plan: 2nd cirrhosis cbc daily (15) History of CVA (cerebrovascular accident): Plan: vertebral artery dissection - h/o (16) Gastritis: Plan: as seen on recent admission's EGD increase PPI to BID dosing due to upper abd discomfort & nausea schedule carafate TID prior to meals Plan DVT proph - hold Lovenox in the setting of low platelet count / upcoming paracentesis Admission and Anticipated Discharge Date Admission Date: July 01, 2023 Subjective patient is mentating better s/p multiple doses of lactulose today with at least 4-5 stools since this am she admits to struggling with her diet at home along with salt intake she states that she & are committed to following low salt moving forward as she is tired of the fluid issues, frequent hospitalizations, etc she admits to not taking lactulose TID at home she struggles with diarrhea and will often hold doses in response to such she is frustrated by the stool issues from lactulose but even more frustrated that her ammonia levels constance so high denies any infectious symptoms or illness since leaving the hospital recently she c/o dyspnea due to the severity of her current ascites she met with Jessica Mcintyre following her recent hospital stay was told she was NOT a TIPS candidate but they offered her something called a "Esequiel stent" ?? she was distraught to hear that she was not a TIPS candidate she is also supposed to see Dr Calvert - hepatology [facility] - tomorrow at 1045am Review of Systems Review of Systems: gen - no fevers cv - no chest pain; +orthopnea and PND but no cough GI - nausea earlier today - relieved with reglan; mild upper abd discomfort pulm - dyspnea and YAN Physical Exam Physical Exam: gen - sitting at side of bed, mentation nearing her usual baseline, mild tremors noted of arms, speech slightly dysarthric (baseline) mouth - MMM neck - no JVD at 90 degrees heart - RRR, s1 s2, 2/6 EDUARDO LSB lungs - mildly decreased BS bases, CTA b/l otherwise abd - massive ascites/distended; nontender; BS+ ext - 2+ edema b/l extending to the thighs; pulses 2+ b/l neuro - tremors with mild asterixis b/l Results & Data Results & Data Vital Signs (Past 12 Hours) Vital Signs Temp Pulse Pulse Pulse Resp BP BP 07/02/23 19:45 36.8 C 85 18 07/02/23 17:56 07/02/23 17:48 36.8 C 85 16 146/85 H 07/02/23 16:44 07/02/23 13:14 87 19 127/86 07/02/23 09:01 83 20 127/69 BP Pulse Ox Pulse Ox O2 Del Method O2 Del Method 07/02/23 19:45 135/84 98 Room Air 07/02/23 17:56 Room Air 07/02/23 17:48 100 Room Air 07/02/23 16:44 98 Room Air 07/02/23 13:14 97 Room Air 07/02/23 09:01 95 Laboratory Results Laboratory Results - last 24 hr 07/01/23 07/02/23 07/02/23 22:14 00:12 05:02 WBC 3.58 L RBC 2.84 L Hgb 7.9 L Hct 24.4 L MCV 85.9 MCH 27.8 MCHC 32.4 RDW Std Deviation 61.6 H RDW Coeff of Henna 19.8 H Plt Count 56 L MPV 10.8 Immature Gran % (Auto) 0.3 Neut % (Auto) 65.1 Lymph % (Auto) 17.3 [place] % (Auto) 13.7 Eos % (Auto) 2.5 Baso % (Auto) 1.1 Neut # (Auto) 2.33 Lymph # (Auto) 0.62 L [place] # (Auto) 0.49 Eos # (Auto) 0.09 Baso # (Auto) 0.04 Immature Gran # (Auto) 0.01 RBC Morphology Unremarkable PT 15.4 H INR 1.4 H Sodium 138 Potassium 3.1 L Chloride 100 Carbon Dioxide 31 Anion Gap 7 BUN 27 H Creatinine 1.32 H D Est Cr Clr Drug Dosing 72.6 Est GFR ( Amer) 57.5 Est GFR (Non-Af Amer) 49.6 BUN/Creatinine Ratio 20.5 H Glucose 99 POC Glucose 125 H 148 H Estimat Average Glucose 97 Hemoglobin A1c 5.0 Calcium 8.6 Magnesium 2.2 Total Bilirubin 2.1 H AST 54 H ALT 23 Alkaline Phosphatase 54 Total Protein 5.6 L Albumin 3.1 L Globulin 2.5 Albumin/Globulin Ratio 1.2 07/02/23 07/02/23 07/02/23 09:00 12:39 16:45 WBC RBC Hgb Hct MCV MCH MCHC RDW Std Deviation RDW Coeff of Henna Plt Count MPV Immature Gran % (Auto) Neut % (Auto) Lymph % (Auto) [place] % (Auto) Eos % (Auto) Baso % (Auto) Neut # (Auto) Lymph # (Auto) [place] # (Auto) Eos # (Auto) Baso # (Auto) Immature Gran # (Auto) RBC Morphology PT INR Sodium Potassium Chloride Carbon Dioxide Anion Gap BUN Creatinine Est Cr Clr Drug Dosing Est GFR ( Amer) Est GFR (Non-Af Amer) BUN/Creatinine Ratio Glucose POC Glucose 103 H 152 H 163 H Estimat Average Glucose Hemoglobin A1c Calcium Magnesium Total Bilirubin AST ALT Alkaline Phosphatase Total Protein Albumin Globulin Albumin/Globulin Ratio 07/02/23 07/02/23 17:45 20:08 WBC RBC Hgb Hct MCV MCH MCHC RDW Std Deviation RDW Coeff of Henna Plt Count MPV Immature Gran % (Auto) Neut % (Auto) Lymph % (Auto) [place] % (Auto) Eos % (Auto) Baso % (Auto) Neut # (Auto) Lymph # (Auto) [place] # (Auto) Eos # (Auto) Baso # (Auto) Immature Gran # (Auto) RBC Morphology PT INR Sodium Potassium Chloride Carbon Dioxide Anion Gap BUN Creatinine Est Cr Clr Drug Dosing Est GFR ( Amer) Est GFR (Non-Af Amer) BUN/Creatinine Ratio Glucose POC Glucose 159 H 118 H Estimat Average Glucose Hemoglobin A1c Calcium Magnesium Total Bilirubin AST ALT Alkaline Phosphatase Total Protein Albumin Globulin Albumin/Globulin Ratio PG Care Time/CCT Total # of Minutes Spent Total Time Spent with Patient: Total time spent is greater than 50% in coordination of care (as documented) at patient's floor/unit and/or counseling patient: Coding Level of Care Code 82923 SUB INP/OBS CARE 3/50MIN Diagnoses Acute hepatic encephalopathy K76.82 Diabetes mellitus, type 2 E11.9 Prolonged QT interval R94.31 Hypokalemia E87.6 Cirrhosis K74.60 Portal vein thrombosis I81 Anemia D64.9 Hypothyroidism E03.9 Hyponatremia E87.1 Morbid obesity with BMI of 40.0-44.9, adult E66.01; Z68.41 JOANNA (acute kidney injury) N17.9 Refractory ascites R18.8 Opioid dependence F11.20 Pancytopenia D61.818 History of CVA (cerebrovascular accident) Z86.73 Gastritis K29.70
[2023-07-02] MEDS: PANTOprazole 40 MG TAB PO SCH (20:46)
[2023-07-02] MEDS ORDERED: ACETAMINOPHEN 500 MG TAB PO PRN (21:30)
[2023-07-02] MEDS ORDERED: KETOROLAC TROMETHAMINE 15 MG/ML VIAL IV ONE (21:39)
[2023-07-03] MEDS: CALCIUM CARBONATE 500 MG CHEWABLE TAB PO SCH ×5 (00:12→23:20)
[2023-07-03] MEDS: LEVOTHYROXINE SODIUM 150 MCG TABLET PO SCH (05:06)
[2023-07-03 06:10] LABS: Basophils # (auto) 0.06 K/uL (0.00-0.20); Basophils % (auto) 1.1 %; Eosinophils # (auto) 0.22 K/uL (0.00-0.50); Eosinophils % (auto) 4.2 %; Hematocrit (blood only) 26.7 % (37.0-47.0); Hemoglobin 8.4 g/dl (12.0-16.0); Immature Granulocytes # (auto) 0.02 K/uL (0.01-0.20); Immature Granulocytes % (auto) 0.4 %; Lymphocytes # (auto) 1.05 K/uL (1.20-3.40); Lymphocytes % (auto) 19.9 %; Mean Corpuscular Hemoglobin 27.8 pg (25.0-34.0); Mean Corpuscular Hgb Conc 31.5 g/dL (32.0-36.0); Mean Corpuscular Volume 88.4 fL (80.0-100.0); Mean Platelet Volume 10.3 fL (9.4-12.4); Monocytes # (auto) 0.62 K/uL (0.11-0.59); Monocytes % (auto) 11.8 %; Neutrophils % (auto) 62.6 %; Platelet Count 66 K/uL (130-400); RDW Coefficient of Variation 19.9 % (11.5-14.5); RDW Standard Deviation 63.7 fL (36.4-46.3); Red Blood Count 3.02 M/uL (4.20-5.40); White Blood Count 5.27 K/ul (4.8-10.8)
[2023-07-03 06:29] LABS: Albumin Globulin Ratio 1.3 (0.9-2); Albumin Level 3.3 gm/dl (3.4-5.0); BUN Creatinine Ratio 17.2 (10-20); Bilirubin,Total 2.9 mg/dl (0.2-1.0); Calcium 8.9 mg/dl (8.6-10.3); Creatinine Clr Calc Pharmacy 87.6 ml/min; Est GFR (African American) 81.5 ml/min; Est GFR (Non-African American) 70.3 ml/min; Globulin 2.6 gm/dl (2.5-4.0); Potassium 3.4 mmol/L (3.5-5.1); Total Protein 5.9 gm/dl (6.0-8.3)
[2023-07-03] MEDS: rOPINIRole HCL 2 MG TABLET PO SCH ×3 (10:00→22:00)
[2023-07-03] MEDS: LACTULOSE SYRUP 30 GM/45 ML UDP PO SCH ×3 (10:03→21:59)
[2023-07-03] MEDS: MAGNESIUM OXIDE 400 MG TAB PO SCH ×2 (10:04→22:00)
[2023-07-03] MEDS: MIDODRINE HCL 2.5 MG TAB PO SCH ×3 (10:05→18:05)
[2023-07-03] MEDS: SUCRALFATE 1 GM TAB PO SCH ×3 (10:05→18:05)
[2023-07-03] MEDS: BUMETANIDE 1 MG TAB PO SCH ×2 (10:06→18:06)
[2023-07-03] MEDS: SPIRONOLACTONE 100 MG TAB PO SCH ×2 (10:06→18:06)
[2023-07-03] MEDS: FAMOTIDINE 40 MG TABLET PO SCH (10:06)
[2023-07-03] MEDS: rifAXIMin 550 MG TABLET PO SCH ×2 (10:07→22:00)
[2023-07-03] MEDS: PANTOprazole 40 MG TAB PO SCH ×2 (10:07→22:00)
[2023-07-03] MEDS: POTASSIUM CHLORIDE 20 MEQ/15 ML UDC PO SCH ×3 (10:07→21:59)
[2023-07-03] MEDS: INSULIN ASPART PER UNIT CHARGE SC SCH ×4 (10:10→21:22)
[2023-07-03] MEDS: ALBUMIN 25% 25 GM/100 ML VIAL IV SCH ×2 (11:05→13:15)
[2023-07-03 11:44] LABS: Appearance Peritoneal Fluid Cloudy; Basophils, Fluid 1 %; Color Peritoneal Fluid Straw; Lymphocytes, Fluid 54 %; Mono,Macrophage,Mesothelial 36 %; Neutrophils, Fluid 9 %; RBC Peritoneal Fluid Auto 6000 /uL; WBC Peritoneal Fluid Auto 210 /ul (0-300)
--- NOTE | 2023-07-03 12:26 | Electrocardiogram Report ---
Test Reason : Blood Pressure : / mmHG Vent. Rate : 081 BPM Atrial Rate : 081 BPM P-R Int : 150 ms QRS Dur : 092 ms QT Int : 458 ms P-R-T Axes : 058 016 033 degrees QTc Int : 532 ms Sinus rhythm with Premature supraventricular complexes Low voltage QRS Poor R wave progression, consider anterior TN vs. lead placement vs. LVH Prolonged QT Abnormal ECG When compared with ECG of 01-JUL-2023 10:57, Premature supraventricular complexes are now Present Nonspecific T wave abnormality no longer evident in Anterior leads QT has shortened Confirmed by Mikal Blue ([id number]) on 07/03/2023 12:25:52 PM Referred By: REFERRED SELF Confirmed By:Mikal Blue
[2023-07-03] MEDS: DOCUSATE SODIUM 100 MG CAP PO SCH (12:36)
--- NOTE | 2023-07-03 13:07 | Electrocardiogram Report ---
Test Reason : Blood Pressure : / mmHG Vent. Rate : 083 BPM Atrial Rate : 083 BPM P-R Int : 150 ms QRS Dur : 092 ms QT Int : 442 ms P-R-T Axes : 059 002 028 degrees QTc Int : 519 ms Normal sinus rhythm with sinus arrhythmia Low voltage QRS Poor R wave progression, consider anterior WA vs. lead placement vs. LVH Prolonged QT Abnormal ECG When compared with ECG of 02-JUL-2023 14:53, (unconfirmed) Premature supraventricular complexes are no longer Present Confirmed by Mikal Blue ([id number]) on 07/03/2023 1:07:34 PM Referred By: REFERRED SELF Confirmed By:Mikal Blue
--- NOTE | 2023-07-03 13:08 | Ultrasound Report ---
Ultrasound-guided paracentesis INDICATION: Ascites PROCEDURE: Procedure and risks were explained. Informed consent was obtained. A final timeout was com pleted. The abdomen was prepped and draped in sterile fashion. 1% buffered lidocaine was utilized for skin anesthesia. Utilizing ultrasound guidance, a 5 [place] safety centesis catheter was advanced into the left lower q uadrant pocket of ascites. Ultrasound images were obtained. A total of 8 L of ascites fluid was remov ed, with 1 L sent to lab for analysis. The catheter was removed and (2) 2-0 silk sutures were utilize d to close the puncture site. The patient tolerated the procedure well. Vital signs will be monitored on the floor. IMPRESSION: Paracentesis as above. Performed, dictated, and signed by Marvin Greene PA-C; to be co-signed by Dr. Lorenzo Ocampo. Electronically signed by: Lorenzo Ocampo M.D. 07/03/2023 1:43 PM
[2023-07-03] MEDS ORDERED: oxyCODONE HCL IR 5 MG TAB (IMMEDIATE RELEASE) PO PRN (20:14)
[2023-07-03] MEDS ORDERED: METOCLOPRAMIDE HCL INJ 5 MG/ML 2 ML VIAL IV PRN (20:14)
--- NOTE | 2023-07-03 20:14 | Hospitalist Progress Note ---
Date of Service July 03, 2023 Assessment & Plan (1) Acute hepatic encephalopathy: Plan: resolve with simply resuming rifaximin BID + lactulose TID has had recurrent admissions for this issue cause - usually 2nd to noncompliance with lactulose during prior admissions she often declines taking the lactulose, sometimes for 1-2 days at a time she gets frustrated by the diarrhea she has from such either way she is improved ammonia level wnl today (2) Diabetes mellitus, type 2: Plan: HbA1c 5% l Hold Tradjenta loose novolog SSI (3) Prolonged QT interval: Plan: QTc >500mec 2nd electrolyte deficiencies, medications, etc replace low K keep mag wnl holding lexapro recheck EKG in am tomorrow 07/04 cautious use with anti-emetics although she needs them due to frequent nausea (4) Hypokalemia: Plan: increased K supplement to 40meq TID - K slowly improving - 3.4 today BMP am 2nd bumex, diarrhea, etc (5) Cirrhosis: Plan: follows with Dr Calvert, [facility] [place] [facility] Hepatology [facility] Kiran [place] texted with her today - Niesha was to have had office visit with Dr Calvert today; Dr Calvert aware she is hospitalized they will get her rescheduled next 1-2 weeks recent TIPS evaluation - felt not to be candidate despite frequent paracentesis but possibly candidate for [place] Shunt cont diuretics s/p paracentesis today 8 L removed no SBP based on cell counts albumin 50gm IV x 1 (25% formulation) repeat labs am (6) Portal vein thrombosis: Plan: Hold Lovenox due to low platelet count low 50s Continue to monitor platelets daily (7) Anemia: Plan: 2nd Fe def, cirrhosis, etc daily CBC (8) Hypothyroidism: Plan: TSH elevated at 33.164 Free T4 WNL at 0.72 Continue levothyroxine Compliance?? is she absorbing the medication?? (9) Hyponatremia: Plan: improved to 137 today Chronic 2nd to cirrhosis, diuretics, etc (10) Morbid obesity with BMI of 40.0-44.9, adult: Plan: BMI ~40 (11) JOANNA (acute kidney injury): Plan: typical Cr <1 now 0.99 bmp in am required albumin infusions, octreotide, and midodrine last admission for JOANNA (12) Refractory ascites: Plan: 2nd to noncompliance with low salt diet along with diuretics s/p paracentesis today by IR appreciate their assistance (13) Opioid dependence: Plan: has taken oxycodone for chronic headaches and other ailments limit this as she is often very sleepy from the meds (14) Pancytopenia: Plan: 2nd cirrhosis cbc daily (15) History of CVA (cerebrovascular accident): Plan: vertebral artery dissection - h/o (16) Gastritis: Plan: as seen on recent admission's EGD increase PPI to BID dosing due to upper abd discomfort & nausea schedule carafate TID prior to meals Plan DVT proph - hold Lovenox in the setting of low platelet count / upcoming paracentesis likely can d/c home tomorrow am if stable overnight and labs acceptable Admission and Anticipated Discharge Date Admission Date: July 01, 2023 Subjective had mild abd pain following her paracentesis today mild nausea (this is a frequent issue for her) paracentesis - took 8 L today cell counts not c/w SBP her breathing is improved s/p paracentesis ambulating mentating normally 4 loose BMs today she expresses anxiety about her loose stools, the lactulose, dietary restriction/low salt, etc she did speak with nutrition today about low salt diet no new issues Review of Systems Review of Systems: cv - no orthopnea pulm - no cough GI - no vomiting despite nausea Physical Exam Physical Exam: gen - laying in bed comfortably, NAD mouth - MMM neck - no JVD heart - RRR, s1 s2, 2/6 EDUARDO LSB lungs - mildly decreased BS bases, CTA b/l otherwise abd - ascites improved s/p paracentesis today; nontender; paracentesis site covered with band-aid - no leaking of fluid; BS+ ext - 2+ edema b/l extending to the thighs - scantly better today ; pulses 2+ b/l neuro - tremors/asterixis improved Results & Data Results & Data Vital Signs (Past 12 Hours) Vital Signs Temp Pulse Pulse Resp BP Pulse Ox O2 Del Method 07/03/23 20:00 36.7 C 83 18 130/79 95 Room Air 07/03/23 17:33 84 07/03/23 14:43 37.0 C 78 16 106/65 98 Room Air 07/03/23 11:51 36.6 C 81 16 120/76 96 Room Air Laboratory Results Laboratory Results - last 24 hr 07/03/23 07/03/23 07/03/23 05:55 07:59 11:57 WBC 5.27 RBC 3.02 L Hgb 8.4 L Hct 26.7 L MCV 88.4 MCH 27.8 MCHC 31.5 L RDW Std Deviation 63.7 H RDW Coeff of Henna 19.9 H Plt Count 66 L MPV 10.3 Immature Gran % (Auto) 0.4 Neut % (Auto) 62.6 Lymph % (Auto) 19.9 [place] % (Auto) 11.8 Eos % (Auto) 4.2 Baso % (Auto) 1.1 Neut # (Auto) 3.30 Lymph # (Auto) 1.05 L [place] # (Auto) 0.62 H Eos # (Auto) 0.22 Baso # (Auto) 0.06 Immature Gran # (Auto) 0.02 Sodium 137 Potassium 3.4 L Chloride 101 Carbon Dioxide 31 Anion Gap 5 BUN 17 Creatinine 0.99 D Est Cr Clr Drug Dosing 87.6 Est GFR ( Amer) 81.5 Est GFR (Non-Af Amer) 70.3 BUN/Creatinine Ratio 17.2 Glucose 102 H POC Glucose 98 131 H Calcium 8.9 Total Bilirubin 2.9 H AST 54 H ALT 24 Alkaline Phosphatase 56 Ammonia 47.0 Total Protein 5.9 L Albumin 3.3 L Globulin 2.6 Albumin/Globulin Ratio 1.3 Fluid Neutrophils % Fluid Lymphocytes % Fluid Basophils % Fluid Meso/Macro/[place] % Fluid Comment Peritoneal Color Peritoneal Appearance Peritoneal WBC (Auto) Peritoneal RBC (Auto) 07/03/23 07/03/23 17:30 Unknown WBC RBC Hgb Hct MCV MCH MCHC RDW Std Deviation RDW Coeff of Henna Plt Count MPV Immature Gran % (Auto) Neut % (Auto) Lymph % (Auto) [place] % (Auto) Eos % (Auto) Baso % (Auto) Neut # (Auto) Lymph # (Auto) [place] # (Auto) Eos # (Auto) Baso # (Auto) Immature Gran # (Auto) Sodium Potassium Chloride Carbon Dioxide Anion Gap BUN Creatinine Est Cr Clr Drug Dosing Est GFR ( Amer) Est GFR (Non-Af Amer) BUN/Creatinine Ratio Glucose POC Glucose 113 H Calcium Total Bilirubin AST ALT Alkaline Phosphatase Ammonia Total Protein Albumin Globulin Albumin/Globulin Ratio Fluid Neutrophils % 9 Fluid Lymphocytes % 54 Fluid Basophils % 1 Fluid Meso/Macro/[place] % 36 Fluid Comment Peritoneal Color Straw Peritoneal Appearance Cloudy Peritoneal WBC (Auto) 210 Peritoneal RBC (Auto) 6000 PG Care Time/CCT Total # of Minutes Spent Total Time Spent with Patient: Total time spent is greater than 50% in coordination of care (as documented) at patient's floor/unit and/or counseling patient: Coding Level of Care Code 75982 SUB INP/OBS CARE 2/35MIN Diagnoses Acute hepatic encephalopathy K76.82 Diabetes mellitus, type 2 E11.9 Prolonged QT interval R94.31 Hypokalemia E87.6 Cirrhosis K74.60 Portal vein thrombosis I81 Anemia D64.9 Hypothyroidism E03.9 Hyponatremia E87.1 Morbid obesity with BMI of 40.0-44.9, adult E66.01; Z68.41 JOANNA (acute kidney injury) N17.9 Refractory ascites R18.8 Opioid dependence F11.20 Pancytopenia D61.818 History of CVA (cerebrovascular accident) Z86.73 Gastritis K29.70
[2023-07-03] MEDS: ALPRAZolam 0.5 MG TABLET PO PRN (22:01)
[2023-07-04] MEDS: CALCIUM CARBONATE 500 MG CHEWABLE TAB PO SCH ×2 (05:42→12:32)
[2023-07-04] MEDS: LEVOTHYROXINE SODIUM 150 MCG TABLET PO SCH (05:42)
[2023-07-04 06:47] LABS: Basophils # (auto) 0.06 K/uL (0.00-0.20); Basophils % (auto) 1.3 %; Eosinophils # (auto) 0.36 K/uL (0.00-0.50); Eosinophils % (auto) 7.8 %; Hematocrit (blood only) 25.5 % (37.0-47.0); Hemoglobin 8.1 g/dl (12.0-16.0); Immature Granulocytes # (auto) 0.02 K/uL (0.01-0.20); Immature Granulocytes % (auto) 0.4 %; Lymphocytes % (auto) 21.6 %; Mean Corpuscular Hemoglobin 27.7 pg (25.0-34.0); Mean Corpuscular Hgb Conc 31.8 g/dL (32.0-36.0); Mean Corpuscular Volume 87.3 fL (80.0-100.0); Mean Platelet Volume 10.1 fL (9.4-12.4); Monocytes # (auto) 0.53 K/uL (0.11-0.59); Monocytes % (auto) 11.4 %; Neutrophils # (auto) 2.66 K/uL (1.40-6.50); Neutrophils % (auto) 57.5 %; Platelet Count 58 K/uL (130-400); RDW Coefficient of Variation 19.9 % (11.5-14.5); RDW Standard Deviation 63.4 fL (36.4-46.3); Red Blood Count 2.92 M/uL (4.20-5.40); White Blood Count 4.63 K/ul (4.8-10.8)
[2023-07-04 07:08] LABS: Albumin Globulin Ratio 1.6 (0.9-2); Albumin Level 3.6 gm/dl (3.4-5.0); BUN Creatinine Ratio 14.1 (10-20); Calcium 8.3 mg/dl (8.6-10.3); Creatinine Clr Calc Pharmacy 90.1 ml/min; Est GFR (Non-African American) 76.8 ml/min; Globulin 2.3 gm/dl (2.5-4.0); Potassium 3.5 mmol/L (3.5-5.1); Total Protein 5.9 gm/dl (6.0-8.3)
[2023-07-04] MEDS: LACTULOSE SYRUP 30 GM/45 ML UDP PO SCH ×2 (08:14→14:39)
[2023-07-04] MEDS: DOCUSATE SODIUM 100 MG CAP PO SCH (08:14)
[2023-07-04] MEDS: FAMOTIDINE 40 MG TABLET PO SCH (08:14)
[2023-07-04] MEDS: MIDODRINE HCL 2.5 MG TAB PO SCH ×2 (08:14→12:32)
[2023-07-04] MEDS: SPIRONOLACTONE 100 MG TAB PO SCH (08:15)
[2023-07-04] MEDS: SUCRALFATE 1 GM TAB PO SCH ×2 (08:15→12:31)
[2023-07-04] MEDS: rOPINIRole HCL 2 MG TABLET PO SCH ×2 (08:15→14:39)
[2023-07-04] MEDS: BUMETANIDE 1 MG TAB PO SCH (08:15)
[2023-07-04] MEDS: PANTOprazole 40 MG TAB PO SCH (08:16)
[2023-07-04] MEDS: rifAXIMin 550 MG TABLET PO SCH (08:16)
[2023-07-04] MEDS: MAGNESIUM OXIDE 400 MG TAB PO SCH (08:16)
[2023-07-04] MEDS: INSULIN ASPART PER UNIT CHARGE SC SCH ×2 (08:45→12:31)
[2023-07-04] MEDS: POTASSIUM CHLORIDE 20 MEQ/15 ML UDC PO SCH ×2 (12:32→14:40)
--- NOTE | 2023-07-04 12:54 | Discharge Summary ---
Date of Service July 04, 2023 Admission HPI Per Admitting Provider Niesha is a 42-year-old female with PMH of GILLESPIE cirrhosis with esophageal varices, T2DM, recurrent paracenteses, chronic anemia, hypothyroidism, anxiety, depression, opioid dependence, CHIVO, portal HTN, previous CVA with vertebral artery dissection. She was sent to the ED from ultrasound at 0800 on 07/01 for AMS. She was originally scheduled to have a paracentesis with Marvin Greene PA-C that morning, but reportedly could not give her date of . Hx of recurrent AMS due to hepatic encephalopathy. [facility] admissions on 06/05 and 06/15. Patient received lactulose 30 g p.o. in the ED. Unable to obtain hi story at time of admission; the patient was able to open her eyes and follow commands, but was not able to articulate appropriate responses. Vitals stable at time of admission. ED course: Lactulose 30gm Discharge Exam gen - laying in bed comfortably, NAD mouth - MMM neck - no JVD heart - RRR, s1 s2, 2/6 EDUARDO LSB lungs - mildly decreased BS bases, CTA b/l otherwise abd - ascites improved s/p paracentesis today; nontender; paracentesis site covered with band-aid - no leaking of fluid; BS+ ext - 2+ edema b/l extending to the thighs - scantly better today ; pulses 2+ b/l neuro - tremors/asterixis improved Discharge Data Allergies Allergy/AdvReac Type Severity Reaction Status Date / Time codeine Allergy Unknown Hives, Verified 06/20/23 08:32 [From Tylenol-Codeine #3] skin redness (Tyenol #3) Consultations 07/01/23 11:10 ED Decision to Admit Stat Ordered Studies 07/01/23 09:34 CT head/brain wo con Stat 07/03/23 IR paracentesis abd w/img US Routine Hospital Course (1) Acute hepatic encephalopathy: resolve with simply resuming rifaximin BID + lactulose TID has had recurrent admissions for this issue cause - usually 2nd to noncompliance with lactulose during prior admissions she often declines taking the lactulose, sometimes for 1-2 days at a time she gets frustrated by the diarrhea she has from such either way she is improved ammonia level wnl today (2) Diabetes mellitus, type 2: HbA1c 5% l Hold Tradjenta loose novolog SSI (3) Prolonged QT interval: QTc >500mec 2nd electrolyte deficiencies, medications, etc replace low K keep mag wnl holding lexapro recheck EKG in am tomorrow 07/04 cautious use with anti-emetics although she needs them due to frequent nausea (4) Hypokalemia: increased K supplement to 40meq TID - K slowly improving - 3.4 today BMP am 2nd bumex, diarrhea, etc (5) Cirrhosis: follows with Dr Calvert, [facility] [place] Hepatology [place] Kiran [place] texted with her today - Niesha was to have had office visit with Dr Calvert today; Dr Calvert aware she is hospitalized they will get her rescheduled next 1-2 weeks recent TIPS evaluation - felt not to be candidate despite frequent paracentesis but possibly candidate for [place] Shunt cont diuretics s/p paracentesis today 8 L removed no SBP based on cell counts albumin 50gm IV x 1 (25% formulation) repeat labs am (6) Portal vein thrombosis: Hold Lovenox due to low platelet count low 50s Continue to monitor platelets daily (7) Anemia: 2nd Fe def, cirrhosis, etc daily CBC (8) Hypothyroidism: TSH elevated at 33.164 Free T4 WNL at 0.72 Continue levothyroxine Compliance?? is she absorbing the medication?? (9) Hyponatremia: improved to 137 today Chronic 2nd to cirrhosis, diuretics, etc (10) Morbid obesity with BMI of 40.0-44.9, adult: BMI ~40 (11) JOANNA (acute kidney injury): typical Cr <1 now 0.99 bmp in am required albumin infusions, octreotide, and midodrine last admission for JOANNA (12) Refractory ascites: 2nd to noncompliance with low salt diet along with diuretics s/p paracentesis today by IR appreciate their assistance (13) Opioid dependence: has taken oxycodone for chronic headaches and other ailments limit this as she is often very sleepy from the meds (14) Pancytopenia: 2nd cirrhosis cbc daily (15) History of CVA (cerebrovascular accident): vertebral artery dissection - h/o (16) Gastritis: as seen on recent admission's EGD increase PPI to BID dosing due to upper abd discomfort & nausea schedule carafate TID prior to meals Plan DVT proph - hold Lovenox in the setting of low platelet count / upcoming paracentesis likely can d/c home tomorrow am if stable overnight and labs acceptable Home Health Attestation I certify that this patient is under my care and that I, or a physicians switchboard operator assistant working with me, had a face to-face encounter that meets the home health [id number] encounter requirements with this patient. The encounter with the patient was in whole, or in part, for the following medical condition, which is the primary reason for home health care (list medical condition): altered mental status; resumption of care I certify that, based on my findings, the following services are medically necessary home health services: My clinical findings support the need for the above services because: Home Safety Assessment Medication Compliance OT Assess ADL Status and Restore Function w ADLs PT Assessment for Endurance / Balance / Strength PT Eval for Safety and Mobility PT Eval for Safety, Gait Training, Assistive Devices PT Gait and Balance Training, Strengthening and Safety Safety Skilled Nsg Assessment Skilled Nsg Instruction New Medications Skilled Nsg Assess Pt Illness, Disease and Sx Monitoring Skilled Nsg to Assess, Perform and Teach Wound Care S/S to Report to Provider ST Eval Cognition and Speech and Ensure Safety w Oral Feedings Teach on Disease Management and Interventions Vital Signs Further, I certify that my clinical findings support that this patient is homebound (i.e. absences from home require considerable and taxing effort and are for medical reasons or tenriism services or infrequently or of short duration when for other reasons) because: Transportation Assistance/Unable to Leave Home Unassisted Certification for Home Health Services: Based on the above findings, I certify that this patient is confined to the home and needs intermittent snf care, physical therapy and/or speech therapy or continues to need occupational therapy. The patient is under my care, and I have initiated the establishment of the plan of care. This patient will be followed by a physician who will periodically review the plan of care. Discharge Plan Discharge Items Patient Disposition: Home - Home Health Services Reason For Visit: Confusion/lethargy Discharge Diagnosis: 1. confusion/lethargy due to hepatic encephalopathy (elevated ammonia levels) - improved with lactulose & rifaximin 2. cirrhosis 3. recurrent ascites - paracentesis completed 07/03/23 4. low hemoglobin, low white blood cells, and low platelets - due to cirrhosis; counts were stable this admission Activity: Resume your previous activity Non-emergency contact: Primary Care Provider and Parts Salvager Call non-emergency contact if: you have any medication questions, your symptoms worsen, your pain is not controlled and you have a fever Follow-up/Referrals: Marvin Greene [Other] (future paracentesis appointments with ASHLEY Liu: 1) 07/07/23 at 1pm 2) 07/11/23 at 7am 3) 07/16/23 at 7am 4) 07/22/23 at 8am 5) 07/25/23 at 7am ) Endy Stanley D.O. [Primary Care Provider] - 07/07/23 1:00 pm Hilda Calvert, [Physician] - (THE OFFICE WILL CALL YOU WITH AN AVAILABLE APPOINTMENT.) Diet: Carb Consistent or DM2 and Low Sodium (2gm) Addtl Attending Provider Instructions: Ms Gutiérrez, You were hospitalized due to confusion & lethargy. This was due to elevated ammonia levels - also known as "hepatic encephalopathy." Your ammonia level was nearly 200 the day you were admitted. Your level normalized and you felt better with use of lactulose and rifaximin. Mr Greene from interventional radiology performed paracentesis on 07/03/23. 8 liters of fluid was removed. He placed stitches to close the needle site. You will need these removed by Mr Greene in about 10 days. You received IV albumin (protein) following the procedure. The fluid studies do not show any infection. Recommendations - 1. Please continue to HOLD your lovenox injections due to low platelets. 2. It is vital to your health to take the lactulose EVERY DAY as well as the rifaximin. We recognize that it is very hard to take lactulose because of its effects on the bowels, but without lactulose you will continue to have episodes of confusion due to the ammonia building up in your body. You must have at least 3-4 bowel movements each day. On most days you will need the lactulose AT LEAST TWICE. There may be days where you need to take it three times. Again you must have at least 3-4 bowel movements daily. 3. Please avoid use of oxycodone, tramadol, and pain killers as these make you sleepy and confused. You can use up to 2000mg of tylenol in a 24-hour period for aches/pains/headaches/etc. If possible please try to avoid use of ibuprofen/motrin/naprosyn/aleve/aspirin. 4. Your blood sugars have remained under excellent control. I would recommend to continue to HOLD Tradjenta. 5. Finally, limit total salt intake to no more than 2000mg (2 grams) in a 24- hour period. This is so important. Excessive salt intake will make your ascites & your edema in your legs much worse. Follow-up - see separate section Return to [facility] if - * you have fevers over 100 degrees * you have shortness of breath * you have lethargy (sleepiness), worsening confusion, etc * you have severe abdominal pains * any other concerns Take good care! -Dr Rodriguez Pending Studies at Discharge: Yes Studies:: ascites culture but thus far negative for bacteria Stand-Alone Forms: My [facility], Smoking Cessation Medications and DC Order Prescriptions: Continued pantoprazole [Protonix] 40 mg tablet,delayed release (DR/EC) 40 mg PO DAILY Qty: 60 0RF docusate sodium 100 mg capsule 100 mg PO DAILY levothyroxine 300 mcg tablet 300 mcg PO DAILY magnesium oxide 400 mg (241.3 mg magnesium) Tablet 400 mg PO BID Qty: 60 0RF ondansetron 8 mg tablet,disintegrating 8 mg translingual Q8 PRN (Reason: Nausea) ropinirole 4 mg tablet 4 mg PO TID escitalopram oxalate 10 mg tablet 10 mg PO DAILY alprazolam 1 mg tablet 1 mg PO BID PRN (Reason: Anxiety) valacyclovir 500 mg Tablet 500 mg PO Q8 PRN (Reason: .BREAKOUTS) famotidine 20 mg Tablet 40 mg PO DAILY Mouth Kote Aerosol,Botkins 1 spray MUCOUS MEMBRANE QID PRN (Reason: .DRY MOUTH) cholecalciferol (vitamin D3) [Vitamin D3] 125 mcg (5,000 unit) Tablet 125 mcg PO DAILY Xifaxan 550 mg tablet 550 mg PO Q12 Kristalose Powder 1 dose PO TID Rx Instructions: 30 GRAM PER 1.5 PACKET. Does not take as much if she has more then 3 bms or gets diarrhea. Tums Gas Relief 750mg/80mg 1 tab PO Q6 midodrine 2.5 mg Tablet 2.5 mg PO TID@0800,1200,1700 Qty: 60 2RF Rx Instructions: to prevent low blood pressure triamcinolone acetonide 0.1 % Cream 1 applic EXT TID PRN (Reason: dry, itchy skin on legs/abdominal wall) Qty: 15 0RF Rx Instructions: use for 5 days then stop. Apply in very thin amounts only. sucralfate 1 gram tablet 1 g PO AC PRN (Reason: stomach upset/heartburn) Qty: 30 0RF potassium chloride 20 mEq/15 mL liquid 20 meq PO BID Qty: 473 0RF Combivent Respimat 20-100 mcg/actuation Mist 1 puff INHALATION QID PRN (Reason: cough/wheeze/shortness of breath) Qty: 1 0RF Rx Instructions: space evenly during waking hours bumetanide 1 mg tablet 2 mg PO BID Qty: 1 0RF Rx Instructions: take each morning, and every afternoon about 4 and 5pm. spironolactone 100 mg Tablet 100 mg PO BID17 Qty: 60 5RF Rx Instructions: take each morning, and every afternoon between 4 and 5pm. Held enoxaparin 100 mg/mL syringe 150 mg subcut DAILY Qty: 45 3RF Hold Instructions: HOLD due to low platelets; only resume if Dr Calvert recommends resuming it. Rx Instructions: take once a day if you have 150mg syringes substitute and make one month supply Discontinued oxycodone 15 mg tablet 15 mg PO Q6 PRN (Reason: Pain) Hold Instructions: These make you VERY SLEEPY and confused. Please hold. Tradjenta 5 mg tablet 5 mg PO DAILY Hold Instructions: HOLD unless your family doctor recommends resuming. Your blood sugars have been well-controlled at [facility] without this medication. Admission Data Admit Date/Time: 07/01/23 12:26 Attending Provider: Yan Rodriguez Admit Provider: Yan Stevens Primary Care Provider: Endy Stanley Other Providers: Yan Stevens; Minor Hill,Home Care Coding Diagnoses Acute hepatic encephalopathy K76.82 Diabetes mellitus, type 2 E11.9 Prolonged QT interval R94.31 Hypokalemia E87.6 Cirrhosis K74.60 Portal vein thrombosis I81 Anemia D64.9 Hypothyroidism E03.9 Hyponatremia E87.1 Morbid obesity with BMI of 40.0-44.9, adult E66.01; Z68.41 JOANNA (acute kidney injury) N17.9 Refractory ascites R18.8 Opioid dependence F11.20 Pancytopenia D61.818 History of CVA (cerebrovascular accident) Z86.73 Gastritis K29.70
--- NOTE | 2023-07-04 13:08 | Electrocardiogram Report ---
Test Reason : Blood Pressure : / mmHG Vent. Rate : 072 BPM Atrial Rate : 072 BPM P-R Int : 152 ms QRS Dur : 092 ms QT Int : 464 ms P-R-T Axes : 067 039 039 degrees QTc Int : 508 ms Normal sinus rhythm Low voltage QRS Prolonged QT Abnormal ECG When compared with ECG of 03-JUL-2023 05:27, No significant change was found Confirmed by Mikal Blue ([id number]) on 07/04/2023 1:07:58 PM Referred By: REFERRED SELF Confirmed By:Mikal Blue
[2023-07-05 15:22] LABS: 7-Aminoclonaz, Confirm NEGATIVE ng/mL (<25); Amobarbital, Urine Conf NEGATIVE ng/mL (<100); Butalbital, Urine 938 ng/mL (<100); Codeine Urine NEGATIVE ng/mL (<50); Hydro-Alp Ur, GC/MS 97 ng/mL (<25); Hydrocodone Urine NEGATIVE ng/mL (<50); Hydromor Urine NEGATIVE ng/mL (<50); Hydroxyethylflurazepam, Conf NEGATIVE ng/mL (<50); Hydroxymidazolam Ur, GC/MS NEGATIVE ng/mL (<50); Hydroxytriazolam NEGATIVE ng/mL (<50); Lorazepam, Ur GC/MS NEGATIVE ng/mL (<50); Morphine Urine NEGATIVE ng/mL (<50); Nordiazepam, Confirm NEGATIVE ng/mL (<50); Norhydrocodone Conf Ur NEGATIVE ng/mL (<50); Noroxycodone Urine 5530 ng/mL (<50); Oxazepam Ur, GC/MS NEGATIVE ng/mL (<50); Oxycodone Urine 4840 ng/mL (<50); Oxymorph Urine 465 ng/mL (<50); Pentobarbital, Urine Conf NEGATIVE ng/mL (<100); Phenobarbital, Urine NEGATIVE ng/mL (<100); Secobarbital, Urine Conf NEGATIVE ng/mL (<100); Temazepam, Confirm NEGATIVE ng/mL (<50)
--- OUTSIDE RECORDS SUMMARY | 2023-07-05 19:32 | External Medical Summary ---
Author Name UNSPECIFIED Address Unknown Organization [facility] History of Encounters Reason for Assessment: Resumption of car e (after inpatient stay) Inpatient discharge facility: Past 14 Da ys: Discharged From Short Stay Acute Hospital Most Recent Inpatient Discharge Date: Functional Assessment Patient Living Situation: Patient lives with other person(s) in the home: Around the clock When Dyspneic: When walking more th an 20 feet, climbing stairs Bowel Incontinence Frequency: Very rarel y or never has bowel incontinence When Anxious (Reported or Observed): Les s often than daily Cognitive and Behavioral and Psychiatric Symptoms: None Current Ability: Bathing: Able to bathe in shower or tub with the intermittent assistance of another person: (a) for intermittent supervision or encouragement or reminders, OR (b) to get in and out of the shower or tub, OR (c) for washing difficult to reach areas. Current Ability: Ambulation: Able to wal k only with the supervision or assistance of another person at all times. Current: Management Of Oral Medications: Able to independently take the correct oral medication(s) and proper dosage(s) at the correct time Problems Primary Home Care Diagnosis ICD Code: K7 6.82^^ Home Care Diagnosis 1: ICD Code: K74.60, Unspecified cirrhosis of liver Home Care Diagnosis 1: Severity Ratin Home Care Diagnosis 2: ICD Code: K75.81, Nonalcoholic steatohepatitis (GILLESPIE) Home Care Diagnosis 2: Severity Ratin Home Care Diagnosis 3: ICD Code: R18.8, Other ascites Home Care Diagnosis 3: Severity Ratin Home Care Diagnosis 4: ICD Code: I81., P ortal vein thrombosis Home Care Diagnosis 4: Severity Ratin Home Care Diagnosis 5: ICD Code: K76.6, Portal hypertension Home Care Diagnosis 5: Severity Ratin
--- OUTSIDE RECORDS SUMMARY | 2023-07-05 19:32 | External Medical Summary ---
Author Name UNSPECIFIED Address Unknown Organization [facility] History of Encounters Reason for Assessment: Recertification ( follow-up) reassessment Functional Assessment Current Ability: Bathing: Able to bathe in [...]
--- OUTSIDE RECORDS SUMMARY | 2023-07-05 19:32 | External Medical Summary | Summary of Care ---
Author Name Unknown Organization [facility] Address [address] [place] [address] Phone [phone] Care Team Providers Care Gis Mapping Technician Name Role Phone Endy Stanley Primary Care Provider [phone] Encounter Details Date Type Department Care Team (Latest Contact Info) Description 06/15/2023 1:10 PM EDT - 06/15/2023 11:59 PM EDT Hospital Encounter Radiology Film File [address] [place] [address] Discharge Disposition: Home - Self Care Allergies Active Allergy Reactions Criticality Noted Date Comments Codeine Hives 07/18/2012 Metformin Abdominal pain Low 03/30/2013 documented as of this encounter (statuses as of 06/25/2023) Medications Medication Sig Dispensed Refills Start Date End Date Status ONETOUCH ULTRASOFT LANCETS MISCIndications:Type II or unspecified type diabetes mellitus without mention of complication, uncontrolled use as directed 1 Box 11 04/05/2013 Active Additional Information Patient not taking.Reported on 03/28/2023 TRETINOIN 0.05 % EX CREAIndications:Other acne APPLY TO SKIN AT BEDTIME 30 MINUTES AFTER WASHING AND DRYING SKIN 45 g 11 03/21/2014 Active valACYclovir (VALTREX) 1000 MG TabletIndications:Col d sore Take 2 Tabs by mouth every 12 hours. For 1 day for cold sores 4 Tab 11 05/03/2016 Active Venlafaxine HCl ER 150 MG Oral Capsule Extended Release 24 Hour Take 37.5 mg by mouth in the morning. Do not cut, crush, or chew.. 30 Cap 5 01/13/2018 Active LINZESS 290 MCG Capsule TAKE 1 CAPSULE BY MOUTH DAILY 90 Cap 3 03/04/2018 Active lactulose (CONSTULOSE) 10 GM/15ML solutionIndications:N LISET (nonalcoholic steatohepatitis),Bili krista cirrhosis (HCC) Take 30 ml by mouth three times a day 2700 mL 5 04/01/2018 Active XIFAXAN 550 MG Tablet Take 1 Tab by mouth 2 times a day. 60 Tab 2 07/20/2018 Active linagliptin (TRADJENTA) 5 MG Tablet Take 1 Tablet by mouth in the morning. 0 Active famotidine (PEPCID) 20 MG Tablet Take 1 Tablet by mouth in the morning and 1 Tablet before bedtime. 0 Active Clobetasol Propionate 0.05 % External Solution apply to the scalp 1-2 times daily as needed 50 mL 2 10/31/2021 Active Lactulose 20 GM Oral Packet (Kristalose) Take 1.5 Packets by mouth in the morning and 1.5 Packets at noon and 1.5 Packets in the evening. Goal BM=3-4 times daily. 0 02/14/2023 Active Ondansetron HCl 8 MG Oral Tablet (Zofran) Take by mouth every 8 hours as needed for Nausea. 0 Active Polyethylene Glycol 3350 17 GM Oral Packet Take 1 Packet by mouth 2 times a day as needed. 0 Active Ipratropium-Albuterol 20-100 MCG/ACT Inhalation Aerosol Solution Inhale 1 Puff by mouth in the morning and 1 Puff at noon and 1 Puff in the evening and 1 Puff before bedtime. 0 Active Metoprolol Tartrate 12.5 MG OR Tablet Take 0.5 Tablets by mouth in the morning. 0 Active Naloxone HCl 4 MG/0.1ML Nasal Liquid Administer 0.1 mL into nostril as needed. Administer 1 spray into 1 nostril for suspected opioid overdose. Seek immediate medical attention. [email or web address]://[email or web address] 0 Active Prochlorperazine Maleate 5 MG Oral Tablet (Compazine) Take 1 Tablet by mouth every 6 hours as needed for Nausea. 0 Active Sennosides-Docusate Sodium 8.6-50 MG Oral Tablet Take 1 Tablet by mouth daily as needed for Constipation. 0 Active Magnesium 400 MG Oral Capsule Take 1 Capsule by mouth in the morning and 1 Capsule before bedtime. 0 Active Bisacodyl 10 MG Rectal Suppository Administer 1 Suppository into the rectum daily as needed. 0 Active oxyCODONE HCl 10 MG/0.5ML Oral Concentrate Take 15 mL by mouth every 6 hours. 0 Active hydrOXYzine HCl 10 MG Oral Tablet (Atarax) Take 1 Tablet by mouth 3 times a day as needed. 0 Active Docusate Sodium 100 MG Oral Capsule (Colace) Take 1 Capsule by mouth every evening. 0 Active rOPINIRole HCl 4 MG Oral Tablet (Requip) Take 1 Tablet by mouth at bedtime as needed. 0 Active Cholecalciferol 125 MCG (5000 UT) Oral Tablet Take by mouth. 0 Active Enoxaparin Sodium 100 MG/ML Injection Solution Prefilled Syringe Inject 100 mg under the skin in the morning. 0 Active Spironolactone 100 MG Oral Tablet (Aldactone)Indication s: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),Splenic vein thrombosis Take 1 Tablet by mouth in the morning and 1 Tablet before bedtime. 180 Tablet 1 03/28/2023 Active Albumin Human 25 % Intravenous Solution If paracentesis yields a total volume of more than 3 L of fluid, give 25% Albumin as follows: 3 L to 5 L give 1 unit Albumin (25 gm in 100ml) 5 L to 7.5 L give 2 units Albumin (25 gm in 100 ml x2) 7.5 L to 12 L give 3 units Albumin (25 mg in 100 ml x3) Infuse Albumin over 30 to 60 minutes for each unit 100 mL 0 03/31/2023 Active Omeprazole 40 MG Oral Capsule Delayed Release (PriLOSEC) Take 1 Capsule by mouth in the morning. 0 Active Escitalopram Oxalate 5 MG Oral Tablet (Lexapro) Take 1 Tablet by mouth in the morning. 0 Active Bumetanide 1 MG Oral TabletIndications:Cari er cirrhosis secondary to nonalcoholic steatohepatitis ([place]) (HCC) Take 2 Tablets by mouth in the morning and 2 Tablets before bedtime. 180 Tablet 1 06/04/2023 Active documented as of this encounter (statuses as of 06/25/2023) Active Problems Problem Noted Date Diagnosed Date Recurrent major depressive disorder, in partial remission 05/14/2017 Bariatric surgery status 08/10/2015 Liver cirrhosis 08/10/2015 GILLESPIE (nonalcoholic steatohepatitis) 08/10/2015 Type 2 diabetes mellitus wit h hemoglobin A1c goal of less than 8.0% 12/23/2014 Overview: ICD-10 update of inactive term Dyslipidemia, goal LDL below 100 01/29/2012 BMI 35-39 ISOLATED (SEE ACTUAL BMI) 02/05/2010 Overview: Per Obesity Protocol, #19 Adult Acne 09/23/2008 Major depressive disorder 07/20/2008 Overview: ICD-10 update of inactive term Headache 12/16/2007 Overview: ICD-10 update of inactive term Malignant neoplasm of thyroid gland 10/15/2007 Overview: 8 mm microfocus of Papillary Cancer--R lobe Adult Acne 10/22/2006 ADVANCE DIRECTIVE INFORMATION 08/06/2005 Overview: No, Advance Directive brochure given to patient at prior appointment. 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 other cause, without mention of thyrotoxic crisis or storm 06/26/2007 05/14/2017 BREECH PRESENT-ANTEPART 10/30/200512/24 CORD ENTANG NEC-ANTEPAR 10/30/200512/24 Other constipation 09/13/2005 6 Hyperthyroidism 05/21/2005 05/14/2017 Overview: diag with preg 2004, off PTU since 06/29 Supervision of other high-risk 05/21/2005 01/13/2006 Overview: 1st del at 34 wks, arrived 6 cm poss clot umbilical vein 2001 elev BP in labor 2003 ICD-10 update of inactive term Encounter for supervision of other normal 04/15/2005 01/13/2006 Overview: closely spaced pregs: 03/26 PTD at 32w, 08/28 39w ICD-10 update of inactive term Absence of menstruation 04/15/200504/26 Dysplasia of cervix (uteri) 04/24/2004 05/14/2017 Overview: LG 04/29, Leep 12/26 and 07/30 ICD-10 update of inactive term Headache 10/01/2003 05/21/2005 Overview: ICD-10 update of inactive term GALACTORRHEA-ANTEPARTUM 03/25/200203/26 Other viral warts 03/25/2002 04/15/2005 Overview: ICD-10 update of inactive term Other viral warts 03/25/2002 05/21/2005 Overview: ICD-10 update of inactive term Abnormal findings on screening 03/24/2002 04/15/2005 Menstruation, irregular 09/25 Anemia 05/21/2005 PRESCRIP-ORAL CONTRACEPT Normal , first 03/25 documented as of this encounter (statuses as of 06/25/2023) Immunizations Name Administration Dates Next Due H1N1 2009 Influenza, IM 06/28/2009 Seasonal Influenza, Split, I IV3, With Preserve, Inj 05/09/2023,05/25/2016,06/08/2015, 0 12,05/10/2009 TDAP (age 11 and older)(Adacel) 05/18/20 09,09/12/2008(Deferred: Patient Refused) documented as of this encounter Social History Tobacco Use Types Packs/Day Years Used Date Smoking Tobacco: Never Smokeless Tobacco: Never Alcohol Use Standard Drinks/Week Comments Not Currently 0 (1 standard drink = 0.6 oz pur e alcohol) 3 x yr Sex and Gender Information Value Date Recorded Sex Assigned at Not on file Gender Identity Not on file Sexual Orientation Not on file Job Start Date Occupation Industry Not on file Not on file Not on file documented as of this encounter Plan of Treatment Upcoming Encounters Date Type Department Care Team (Late st Contact Info) Description 07/03/2023 11:00 AM EST Office Visit Hepatology, [facility] [address] [place] [address] Hilda Calvert DO [address] [place] [address] 08/12/2023 12:30 PM EST Laboratory Laboratory, [place] [address] [place] [address] [place], [facility] [address] [place] [address] 08/19/2023 12:30 PM EST Office Visit Hematology/Oncology [facility] [address] [place] [address] Sandra Evans MD [address] [place] [address] Health Maintenance Due Date Last Done Comments Hepatitis B (1 of 3 - 3-dose series) 1980 Pneumococcal Vaccine: Pediatrics (0 to 5 Years) and At-Risk Patients (6 to 64 Years) (1 - PCV) 1986 Diabetic Eye Exam 1998 HPV/Co-Test 2010 Cervical Cancer Screening 09/08/2011 Pap Smear 09/08/2011 09/08/2008, 07/25, 01/13/2006, Additional history exists Albumin/Creatinine Ratio 11/25/2015 11/24/2014, 02/2013 Depression Screening 10/15/2017 10/15/2016 Diabetic Foot Exam 05/14/2018 05/14/2017, 0 11/15/2015, 12/23/2014 TSH 05/21/2018 05/21/2017, 11/24, 09/30/2016, Additional history exists DTaP,Tdap,and Td Vaccines (2 - Td or Tdap) 05/18/2019 05/18/2009 B-12 08/19/2019 08/19/2018 Mammogram 2020 Lipid Panel 03/05/2022 03/05/2017, 09/2014, 03/31/2013, Additional history exists COVID-19 Vaccine ( season) 2023 07/02/2022, 01/23/2022, 07/24/2021, Additional history exists HbA1c 07/06/2023 01/03/2023, 08/2021, 10/26/2020, Additional history exists GFR 04/15/2024 04/15/2023, 03/25, 04/07/2023, Additional history exists Hepatitis C Screening Completed 07/03/2009, 009 Influenza Vaccine (FLU shot) Completed , 07/04/2020, 09/20/2019, Additional history exists GARDASIL-HPV IMMUNIZATION SERIES Aged Out No longer eligible based on patient's age to complete this topic MENINGOCOCCAL (MENACTRA/MENVEO) Aged Out No longer eligible based on patient's age to complete this topic documented as of this encounter Medical Devices Not on filedocumented as of this encounter Procedures Procedure Name Priority Date/Time Associated Diagnosis Comments RADIOLOGY EXAM - CT (IMAGES ONLY, NO REPORT) Routine 06/15/2023 1:10 PM EDT documented in this encounter Results * RADIOLOGY EXAM - CT (IMAGES ONLY, NO REPORT) (06/15/2023 1:10 PM EDT) 06/15/2023 1:10 PM EDT Narrative Scheduling, Silent - 06/24/2023 1:26 PM EDT This is an imaging study not interpreted or resulted by a [facility] or [facility] contracted radiologist. Hilda Calvert DO RAD CT documented in this encounter Advance Directives Latest Code Status on File Code Status Date Activated Date Inactivated Comments Full Code 10/15/2007 5:16 PM 10/17/2007 5:01 PM Care Teams Gis Mapping Technician Relationship Specialty Start Date End Date Endy Stanley DO [address] [address] [place] [address] PCP - General Family Medicine 07/13/18 documented as of this encounter
--- OUTSIDE RECORDS SUMMARY | 2023-07-05 19:32 | External Medical Summary | Summary of Care ---
Author Name Unknown Organization [facility] Address [address] [place] [address] Phone [phone] Care Team Providers Care Low Voltage Electrician Name Role Phone LizethEndy Primary Care Provider [phone] Reason for Visit * Reason Comments Ascites Encounter Details Date Type Department Care Team (Late st Contact Info) Description 06/23/2023 3:00 PM EDT Office Visit Radiology, [place] [address] [place] [address] José Noble MD [address] [place] [address] Cirrhosis of liver with ascites, unspecified hepatic cirrhosis type *; Cold sore Allergies Active Allergy Reactions Criticality Noted Date Comments Codeine Hives 07/18/2012 Metformin Abdominal pain Low 03/30/2013 documented as of this encounter (statuses as of 06/29/2023) Medications Medication Sig Dispensed Refills Start Date End Date Status ONETOUCH ULTRASOFT LANCETS MISCIndications:Type II or unspecified type diabetes mellitus without mention of complication, uncontrolled use as directed 1 [address] 3 Active Additional Information Patient not taking.Reported on 03/28/2023 TRETINOIN 0.05 % EX CREAIndications:Othe r acne APPLY TO SKIN AT BEDTIME 30 MINUTES AFTER WASHING AND DRYING SKIN 45 g 11 4 Active valACYclovir (VALTREX) 1000 MG TabletIndications:Co ld sore Take 2 Tabs by mouth every 12 hours. For 1 day for cold sores 4 Tab 11 6 Active Venlafaxine HCl ER 150 MG Oral Capsule Extended Release 24 Hour Take 37.5 mg by mouth in the morning. Do not cut, crush, or chew.. 30 Cap 5 8 Active LINZESS 290 MCG Capsule TAKE 1 CAPSULE BY MOUTH DAILY 90 Cap 3 8 Active lactulose (CONSTULOSE) 10 GM/15ML solutionIndications: GILLESPIE (nonalcoholic steatohepatitis),Lino iary cirrhosis (HCC) Take 30 ml by mouth three times a day 2700 mL 5 8 Active XIFAXAN 550 MG Tablet Take 1 Tab by mouth 2 times a day. 60 Tab 2 8 Active linagliptin (TRADJENTA) 5 MG Tablet Take 1 Tablet by mouth in the morning. 0 Active famotidine (PEPCID) 20 MG Tablet Take 1 Tablet by mouth in the morning and 1 Tablet before bedtime. 0 Active Clobetasol Propionate 0.05 % External Solution apply to the scalp 1-2 times daily as needed 50 mL 2 2 Active Lactulose 20 GM Oral Packet (Kristalose) Take 1.5 Packets by mouth in the morning and 1.5 Packets at noon and 1.5 Packets in the evening. Goal BM=3-4 times daily. 0 3 Active Ondansetron HCl 8 MG Oral Tablet (Zofran) Take by mouth every 8 hours as needed for Nausea. 0 Active Polyethylene Glycol 3350 17 GM Oral Packet Take 1 Packet by mouth 2 times a day as needed. 0 Active Ipratropium-Albutero l 20-100 MCG/ACT Inhalation Aerosol Solution Inhale 1 [...] suspected opioid overdose. Seek immediate medical attention. [email or web address] 0 Active Prochlorperazine Maleate 5 MG Oral [...] 0 Active Spironolactone 100 MG Oral Tablet (Aldactone)Indicatio ns: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),Splenic vein thrombosis Take 1 Tablet by mouth in the morning and 1 Tablet before bedtime. 180 Tablet 1 3 Active Albumin Human 25 % Intravenous Solution [...] minutes for each unit 100 mL 0 3 Active Omeprazole 40 MG Oral Capsule Delayed Release (PriLOSEC) Take 1 Capsule by mouth in the morning. 0 Active Escitalopram Oxalate 5 MG Oral Tablet (Lexapro) Take 1 Tablet by mouth in the morning. 0 Active Bumetanide 1 MG Oral TabletIndications:Li jean carlos cirrhosis secondary to nonalcoholic steatohepatitis (GILLESPIE) (HCC) Take 2 Tablets by mouth in the morning and 2 Tablets before bedtime. 180 Tablet 1 3 Active Pantoprazole Sodium 40 MG Oral Tablet Delayed Release (Protonix) Take 1 Tablet by mouth in the morning and 1 Tablet before bedtime. 0 3 Active Klor-Con 20 MEQ Oral Packet Take 20 mEq by mouth in the morning and 20 mEq before bedtime. 0 3 Active Levothyroxine Sodium 300 MCG Oral Tablet Take 1 Tablet by mouth in the morning. 0 3 Active Midodrine HCl 2.5 MG Oral Tablet (Proamatine) Take 1 Tablet by mouth in the morning and 1 Tablet at noon and 1 Tablet before bedtime. 0 Active Tums Extra Strength 750 750 MG Oral Tablet Chewable (calcium CARBonate) Take 1 Tablet by mouth every 6 hours as needed for Heartburn. 0 Active ALPRAZolam 1 MG Oral Tablet (xaNAX) Take 1 Tablet by mouth 2 times a day as needed for Anxiety. 0 Active Acetaminophen 500 MG Oral Tablet (Tylenol) Take 1 Tablet by mouth every 6 hours as needed for Pain, Mild. 0 Active Sucralfate 1 GM Oral Tablet (Carafate) Take 1 Tablet by mouth in the morning and 1 Tablet before bedtime. 0 Active SYNTHROID 200 MCG TabletIndications:Ma lignant neoplasm of thyroid gland (HCC),Postsurgical hypothyroidism take one tablet by mouth at least 30 mins prior to breakfast or other meds. take with 75mg tablet to total 275mg dose 30 Tab 10 8 06/23/20 23 Discontinue d(Medicatio n/Dose Changed) SYNTHROID 75 MCG TabletIndications:Ma lignant neoplasm of thyroid gland (HCC),Postsurgical hypothyroidism TAKE 1 TABLET BY MOUTH ONCE DAILY AT LEAST 30 MINUTES BEFORE BREAKFAST OR OTHER MEDS (275 MCG TOTAL DAILY DOSE). 30 Tab 5 8 06/23/20 23 Discontinue d(Medicatio n/Dose Changed) Magnesium Oxide 400 MG Oral Tablet Take 1 Tablet by mouth in the morning and 1 Tablet before bedtime. 0 3 06/23/20 23 Discontinue d(Medicatio n List Clean Up) Triamcinolone Acetonide 0.05 % External Ointment Apply 1 Application topically to affected area 3 times a day as needed for Dry Skin. Apply to affected area 0 3 06/27/20 23 documented as of this encounter (statuses as of 06/29/2023) Active Problems Problem Noted Date Diagnosed Date [...] as of this encounter (statuses as of 06/29/2023) Resolved Problems Problem Noted Date Diagnosed Date [...] as of this encounter (statuses as of 06/29/2023) Immunizations Name Administration Dates Next Due H1N1 [...] on file documented as of this encounter Last Filed Vital Signs Vital Sign Reading Time Taken Comments Blood Pressure 127/67 06/23/2023 2:57 PM EDT Pulse 70 06/23/2023 2:57 PM EDT Temperature 36.6 C (97.9 F) 06/23/2023 2:57 PM ED T Respiratory Rate 18 06/23/2023 2:57 PM EDT Oxygen Saturation 97% 06/23/2023 2:57 PM EDT Inhaled Oxygen Concentration - - Weight - - Height - - Body Mass Index - - documented in this encounter Progress Notes * José Noble MD - 06/23/2023 3:00 PM EDT INTERVENTIONAL RADIOLOGY - CLINIC VISIT [place] [address] CHIEF COMPLAINT Recurrent ascites - TIPS evaluation HPI Niesha Gutiérrez is a 42 year old female with history of sleeve gastrectomy, thyroid cancer s/p thyroidectomy, type II diabetes, hypertension, strokes, vertebral artery dissection no longer on Plavix, multiple episodes of GI bleeding attributed to non-healing gastric ulcer (04/08/23), GILLESPIE cirrhosis complicated by hepatic encephalopathy, esophageal varices, 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 She was referred for TIPS evaluation for recurrent ascites. She presents today with her significant other, Augie. She reports she was discharged from [facility] this morning. She was admitted for altered mental status and abdominal pain. Discharge paperwork supplied by patient indicates AMS was attributed to hepatic encephalopathy and abdominal pain was attributed to gastritis. Her hospital course was notable for paracentesis (-5L complicated by post-paracentesis leak with approximately another 5L collected in ostomy bag placed over puncture site. Thisultimately resolved with placement of suture.) Lovenox was stopped due to platelets of 52. She was started on midodrine for hypotension, lowest BP during hospitalization was 76/45. With regards to her ascites, she reports she is having paracenteses twice weekly for the past 2-3 weeks. She has around 5-7 liters removed each time. She reports poor healing of punctures sites and often leaks ascites fluid after katarzyna. Last paracentesis was within the past week. She is on Bumex 2mg BID and spironolactone 100mg BID. Augie reports her hepatic encephalopathy is characterized by Niesha being mean, headstrong, and monosyllabic. He finds these episodes very challenging. She has had at least 4 admissions for hepatic encephalopathy in the past year, most recent discharge date 06/23/2023 (today). She reports compliance with lactulose and xifaxan. ROS: - confusion - jaundice - chest pain - shortness of breath + diffuse abdominal pain + abdominal distension - mild + lower extremity swelling, but reports it is significantly improved PAST MEDICAL HISTORY Past Medical History: Diagnosis Date Acute kidney injury (HCC) Anemia Anxiety Ascites Cancer (HCC) thyroid, s/p total thryoidectomy Cirrhosis (HCC) DM type 2, goal A1c below 7 Diabetes Type II, Controlled Dyslipidemia, goal LDL below 100 01/29/2012 Dysmenorrhea 09/08/2008 Dysplasia of cervix (uteri) Esophageal reflux Esophageal varices (HCC) Gastroparesis GERD (gastroesophageal reflux disease) Hepatic encephalopathy (HCC) HTN, goal below 140/90 Hypertension, benign Hyperthyroidism 05/21/2005 diag with preg 2004 Hypothyroidism, postsurgical Malignant neoplasm of thyroid gland (HCC) 10/15/2007 8 mm microfocus of Papillary Cancer--R lobe GILLESPIE (nonalcoholic steatohepatitis) Neurogenic bladder Postsurgical hypothyroidism Stomach ulcer Stroke (HCC) Thrombocytopenia (HCC) Varicella without complication age 8 PAST SURGICAL HISTORY Past Surgical History: Procedure Laterality Date DELIVERY 2005 w/ BTL COLPSCPY CERVIX W/LOOP ELECT 07/30 Dr Ron [facility] no dysplasia DENTAL SURGERY PROCEDURE NEC wisdom teeth EGD, FLEXIBLE, DIAGNOSTIC N/A 06/18/2016 ESOPHAGOGASTRODUODENOSCOPY (EGD), FLEXIBLE, TRANSORAL, DIAGNOSTIC [place] Lavelle Cerv[place] [facility], W/ENDOSCOPIC US N/A 06/18/2016 ESOPHAGOGASTRODUODENOSCOPY (EGD), FLEXIBLE, TRANSORAL, ENDOSCOPIC ULTRASOUND performed by Lavelle Cervantes DO [place] [facility] [place] ENDOMETRIAL CRYOABLATION US GUIDED 07/30 Dr Ron GALLBLADDER/CHOLECYSTO W/CONT 10/23 patricia lap GASTRIC BAND PLACEMENT/PORT, LAPAROSCOPIC 07/2015 REDUCTION OF BREAST 1995 REMOVAL OF THYROID GLAND 10/15/07 THYROIDECTOMY COMPLETE performed [place] YANET ERAZO [place] [facility] [place] REMOVAL OF TONSILS, UNDER AGE 12 REMOVE CERVIX CONE W/LOOP ELECTRODE 12/01/03 Dr Collazo, ecc LG, portio HG FAMILY HISTORY Family History Problem Relation Age of Onset Cancer Mother squamous cell lung Cirrhosis Father Alcohol and Other Disorders Associated Father ETOH Asthma Sister activity induced Eye Problems Son coloboma's blindness Mental Disorder Son ADHD, oppositional, ? bipolar Arthritis Aunt (Unspecified) maternal aunt Ear Problems Aunt (Unspecified) childhood fever and infection induced, deaf and mute Eye Problems Aunt (Unspecified) same as above Diabetes Grandfather (Maternal) Diabetes Grandfather (Paternal) Cancer Grandfather (Paternal) type unknown SOCIAL HISTORY Social History Socioeconomic History Marital status: Spouse name: Not on file Number of children: 2 Years of education: 15 Highest education level: Not on file Occupational History Occupation: [employer] Comment: [employer] Employer: [employer] Tobacco Use Smoking status: Never Smokeless tobacco: Never Substance and Sexual Activity Alcohol use: Not Currently Comment: 3 x yr Drug use: No Sexual activity: Yes Partners: Male control/protection: Surgical Comment: m in mar 2004, Augie Other Topics Concern Not on file Social History Narrative born [place] raised [place] Social Determinants of Health Financial Resource Strain: Not on file Food Insecurity: Not on file Transportation Needs: Not on file Physical Activity: Not on file Stress: Not on file Social Connections: Not on file Intimate Partner Violence: Not on file Housing Stability: Not on file HOME MEDICATIONS Current Outpatient Medications: Bumetanide 1 MG Oral Tablet, Take 2 Tablets by mouth in the morning and 2 Tablets before bedtime., Disp: 180 Tablet, Rfl: 1 Escitalopram Oxalate 5 MG Oral Tablet (Lexapro), Take 1 Tablet by mouth in the morning., Disp: , Rfl: Omeprazole 40 MG Oral Capsule Delayed Release (PriLOSEC), Take 1 Capsule by mouth in the morning., Disp: , Rfl: Albumin Human 25 % Intravenous Solution, If paracentesis yields a total volume of [...] over 30 to 60 minutes for each unit, Disp: 100 mL, Rfl: 0 Bisacodyl 10 MG Rectal Suppository, Administer 1 Suppository into the rectum daily as needed., Disp: , Rfl: Cholecalciferol 125 MCG (5000 UT) Oral Tablet, Take by mouth., Disp: , Rfl: Docusate Sodium 100 MG Oral Capsule (Colace), Take 1 Capsule by mouth every evening., Disp: , Rfl: Enoxaparin Sodium 100 MG/ML Injection Solution Prefilled Syringe, Inject 100 mg under the skin in the morning., Disp: , Rfl: hydrOXYzine HCl 10 MG Oral Tablet (Atarax), Take 1 Tablet by mouth 3 times a day as needed., Disp: , Rfl: Ipratropium-Albuterol 20-100 MCG/ACT Inhalation Aerosol Solution, Inhale 1 Puff by mouth in the morning and 1 Puff at noon and 1 Puff in the evening and 1 Puff before bedtime., Disp: , Rfl: Lactulose 20 GM Oral Packet (Kristalose), Take 1.5 Packets by mouth in the morning and 1.5 Packets at noon and 1.5 Packets in the evening. Goal BM=3-4 times daily., Disp: , Rfl: Magnesium 400 MG Oral Capsule, Take 1 Capsule by mouth in the morning and 1 Capsule before bedtime., Disp: , Rfl: Metoprolol Tartrate 12.5 MG OR Tablet, Take 0.5 Tablets by mouth in the morning., Disp: , Rfl: Naloxone HCl 4 MG/0.1ML Nasal Liquid, Administer 0.1 mL into nostril as needed. Administer 1 spray into 1 nostril for suspected opioid overdose. Seek immediate medical attention. [email or web address], Disp: , Rfl: Ondansetron HCl 8 MG Oral Tablet (Zofran), Take by mouth every 8 hours as needed for Nausea., Disp:, Rfl: oxyCODONE HCl 10 MG/0.5ML Oral Concentrate, Take 15 mL by mouth every 6 hours., Disp: , Rfl: Polyethylene Glycol 3350 17 GM Oral Packet, Take 1 Packet by mouth 2 times a day as needed., Disp: , Rfl: Prochlorperazine Maleate 5 MG Oral Tablet (Compazine), Take 1 Tablet by mouth every 6 hours as needed for Nausea., Disp: , Rfl: rOPINIRole HCl 4 MG Oral Tablet (Requip), Take 1 Tablet by mouth at bedtime as needed., Disp: , Rfl: Sennosides-Docusate Sodium 8.6-50 MG Oral Tablet, Take 1 Tablet by mouth daily as needed for Constipation., Disp: , Rfl: Spironolactone 100 MG Oral Tablet (Aldactone), Take 1 Tablet by mouth in the morning and 1 Tablet before bedtime., Disp: 180 Tablet, Rfl: 1 Clobetasol Propionate 0.05 % External Solution, apply to the scalp 1-2 times daily as needed, Disp:50 mL, Rfl: 2 famotidine (PEPCID) 20 MG Tablet, Take 1 Tablet by mouth in the morning and 1 Tablet before bedtime., Disp: , Rfl: linagliptin (TRADJENTA) 5 MG Tablet, Take 1 Tablet by mouth in the morning., Disp: , Rfl: XIFAXAN 550 MG Tablet, Take 1 Tab by mouth 2 times a day., Disp: 60 Tab, Rfl: 2 lactulose (CONSTULOSE) 10 GM/15ML solution, Take 30 ml by mouth three times a day, Disp: 2700 mL, Rfl: 5 LINZESS 290 MCG Capsule, TAKE 1 CAPSULE BY MOUTH DAILY, Disp: 90 Cap, Rfl: 3 SYNTHROID 75 MCG Tablet, TAKE 1 TABLET BY MOUTH ONCE DAILY AT LEAST 30 MINUTES BEFORE BREAKFAST OR OTHER MEDS (275 MCG TOTAL DAILY DOSE)., Disp: 30 Tab, Rfl: 5 Venlafaxine HCl ER 150 MG Oral Capsule Extended Release 24 Hour, Take 37.5 mg by mouth in the morning. Do not cut, crush, or chew.., Disp: 30 Cap, Rfl: 5 SYNTHROID 200 MCG Tablet, take one tablet by mouth at least 30 mins prior to breakfast or other meds. take with 75mg tablet to total 275mg dose (Patient taking differently: Take 1 Tablet by mouth daily first thing in the morning.), Disp: 30 Tab, Rfl: 10 valACYclovir (VALTREX) 1000 MG Tablet, Take 2 Tabs by mouth every 12 hours. For 1 day for cold sores, Disp: 4 Tab, Rfl: 11 TRETINOIN 0.05 % EX CREA, APPLY TO SKIN AT BEDTIME 30 MINUTES AFTER WASHING AND DRYING SKIN, Disp: 45 g, Rfl: 11 ONETOUCH ULTRASOFT LANCETS [facility], use as directed (Patient not taking: Reported on 03/28/2023), Disp: 1 Box, Rfl: 11 ALLERGIES Review of patient's allergies indicates: Allergen Reactions Codeine Hives Metformin Abdominal pain PHYSICAL EXAMINATION: Vital Signs : There were no vitals taken for this visit. General : Alert & oriented. HEENT : Oral mucosa moist, no scleral icterus Chest : Symmetric chest rise, normal respiratory effort. Abdomen : Non tender, moderately distended. Well-healed small scars over lower quadrants. EXHIBIT ARTIST : Left hand tremor. No asterixis. Extremities : Warm well perfused, +3 edema to mid-daily Skin : Warm, no jaundice LAB DATA: 06/04/2023 WBC 7.93 Hgb 8.1 Plt 126 INR 1.27 March 2023 Na 130 Cr 1.2 Tbili 1.7 Albumin 2.8 MELD 13 based on above data IMAGING: CT (06/15/23) : Personally reviewed 06/23/2023 Report unavailable. On my read, the liver is cirrhotic. Focal, non-occlusive thrombus in main portal vein. Left and right portal veins are patent. Splenomegaly. Gastric varices. Moderate ascites. Small splenorenal shunt. EGD 06/20/2023 No esophageal varices. Gastritis. 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 She requires twice weekly paracenteses, complicated by leakage from puncture sites. She reports transplant has been mentioned but she has not yet been evaluated. Her recurrent ascites is clearly distressing to her and to her significant other, particularly the leakage after paracenteses. Given her history of hepatic encephalopathy, she is a poor TIPS candidate. We discussed the importance of medical optimization for ascites management. Procedural managementoptions for ascites include paracenteses, Brent shunt, tunneled peritoneal drain, TIPS. We discussed the risks and benefits of each procedure. She is most interested in a Brent shunt. Given her encephalopathy and ascites, I would like to discuss her case with colleagues. If she wants to pursue [place] shunt, I will need to discuss shunt placement with transplant surgery at [facility] and [facility] to ensure they would not regard shunt placement as a contraindication to transplant. I will also find data on long-term shunt patency. At least 60 minutes spent in direct patient care & coordination. More than 50% of time was spent in discussion with patient regarding lab results & diagnosis testing, treatment options and possible risks / benefits involved. Patient's questions and concerns were answered to the best of my knowledge & ability. documented in this encounter Plan of Treatment Upcoming Encounters Date Type Department Care Team (Late st Contact Info) Description 07/03/2023 11:00 AM EST Office Visit Hepatology, [facility] [address] [place] [address] Hilda Calvert DO [address] [place] [address] 08/12/2023 12:30 PM EST Laboratory Laboratory, [place] [address] [place] [address] [place], Laboratory [address] [place] [address] 08/19/2023 12:30 PM EST Office Visit Hematology/Oncology [facility] [place] [address] [place] [address] Sandra Evans MD [address] [place] [address] Health Maintenance Due Date Last Done Comments Hepatitis B (1 of 3 - 3-dose series) 1980 Pneumococcal Vaccine: Pediatrics (0 to 5 Years) and At-Risk Patients (6 to 64 Years) (1 - PCV) 1986 Diabetic Eye Exam 1998 HPV/Co-Test 2010 Cervical Cancer Screening 09/08/2011 Pap Smear 09/08/2011 09/08/2008, 07/25, 01/13/2006, Additional history exists Albumin/Creatinine Ratio 11/25/2015 11/24/2014, 0802/2013 Depression Screening 10/15/2017 10/15/2016 Diabetic Foot Exam 05/14/2018 05/14/2017, 0 11/15/2015, 12/23/2014 TSH 05/21/2018 05/21/2017, 11/24, 09/30/2016, Additional history exists DTaP,Tdap,and Td Vaccines (2 - Td or Tdap) 05/18/2019 05/18/2009 B-12 08/19/2019 08/19/2018 Mammogram 2020 Lipid Panel 03/05/2022 03/05/2017, 040 09/2014, 03/31/2013, Additional history exists COVID-19 Vaccine ( season) 2023 07/02/2022, 01/23/2022, 07/24/2021, Additional history exists HbA1c 07/06/2023 01/03/2023, 06/0 08/2021, 10/26/2020, Additional history exists GFR 04/15/2024 [...] Not on filedocumented as of this encounter Visit Diagnoses Diagnosis Cirrhosis of liver with ascites, unspecified hepatic cirrhosis type- Primary Cold sore Herpes simplex without mention of complication documented in this encounter Advance Directives Latest Code Status on File Code Status Date Activated Date Inactivated Comments Full Code 10/15/2007 5:16 PM 10/17/2007 5:01 PM Care Teams Low Voltage Electrician Relationship Specialty Start Date End Date Endy Stanley DO 1 [facility] [address] [address] PCP - General Family Medicine 07/13/18 documented as of this encounter
--- OUTSIDE RECORDS SUMMARY | 2023-07-05 19:32 | External Medical Summary | Summary of Care ---
Author Name Unknown Organization [facility] Address [address] [facility] [place] [address] Phone [phone] Care Team Providers Care Roll Plugger Name Role Phone Lizeth Endy Mora DO Primary Care Provider [phone] Encounter Details Date Type Department Care Team (Late st Contact Info) Description 06/15/2023 Orders Only Gastroenterology, [facility] [address] [place] [address] Hilda Calvert DO [address] [place] [address] Allergies Active Allergy Reactions Criticality Noted Date Comments Codeine Hives 07/18/2012 Metformin Abdominal pain Low 03/30/2013 documented as of this encounter (statuses as of 06/24/2023) Medications Medication Sig Dispensed Refills Start Date [...] suspected opioid overdose. Seek immediate medical attention. [email or web address] 0 Active Prochlorperazine Maleate 5 MG Oral [...] as of this encounter (statuses as of 06/24/2023) Active Problems Problem Noted Date Diagnosed Date [...] as of this encounter (statuses as of 06/24/2023) Resolved Problems Problem Noted Date Diagnosed Date [...] as of this encounter (statuses as of 06/24/2023) Immunizations Name Administration Dates Next Due H1N1 [...] 07/03/2023 11:00 AM EST Office Visit Hepatology, [facility] [address] [facility] [place] [address] Hilda Calvert DO [address] [place] [address] 08/12/2023 12:30 PM EST Laboratory Laboratory, [place] [address] [place] [id number] [place], [facility] [address] [place] [address] 08/19/2023 12:30 PM EST Office Visit Hematology/Oncology [facility] [address] [facility] [place] [address] Sandra Evans MD [address] [facility] [place] [address] Health Maintenance Due Date Last Done Comments [...] 08/19/2018 Mammogram 2020 Lipid Panel 03/05/2022 03/05/2017, 04/0 09/2014, 03/31/2013, Additional history exists COVID-19 Vaccine [...] interpreted or resulted by a [facility] or [employer]. Hilda Calvert DO RAD CT documented in this encounter Advance Directives Latest Code Status on File Code Status Date Activated Date Inactivated Comments Full Code 10/15/2007 5:16 PM 10/17/2007 5:01 PM Care Teams Roll Plugger Relationship Specialty Start Date End Date LizethEndy DO [place] [address] [place] [address] PCP - General Family Medicine 07/13/18 documented as of this encounter
--- OUTSIDE RECORDS SUMMARY | 2023-07-05 19:32 | External Medical Summary ---
Author Name UNSPECIFIED Address Unknown Organization [facility] History of Encounters Reason for Assessment: Transferred to an inpatient facility - patient not discharged from agency Inpatient Facility where the patient been admitted: Hospital
--- OUTSIDE RECORDS SUMMARY | 2023-07-05 19:33 | External Medical Summary | Summary of Care ---
Author Name Unknown Organization [facility] Address [address] [facility] [place] [address] Phone [phone] Care Team Providers Care Service Officer Name Role Phone Lizeth Endy Mora DO Primary Care Provider [phone] Reason for Visit * Reason Onset Date Comments Advice 06/02/2023 Advice after her paracentesis Encounter Details Date Type Department Care Team Description 06/02/2023 Telephone Gastroenterology, [facility] [address] [place] [address] Silva Pacheco DO [address] [place] [address] Advice (Advice after her paracentesis ) Allergies Active Allergy Reactions Severity Noted Date Comments Codeine Hives 07/18/2012 Metformin Abdominal pain Low 03/30/2013 documented as of this encounter (statuses as of 06/05/2023) Medications Medication Sig Dispensed Refills Start Date [...] cold sores 4 Tab 11 6 Active SYNTHROID 200 MCG TabletIndications:Ma lignant neoplasm of thyroid gland (HCC),Postsurgical hypothyroidism take one tablet by mouth at least 30 mins prior to breakfast or other meds. take with 75mg tablet to total 275mg dose 30 Tab 10 8 Active Additional Information Patient taking differently: 200 mcg Oral [id number], Reported on 03/28/2023 Venlafaxine HCl ER 150 MG Oral Capsule Extended Release 24 Hour Take 37.5 mg by mouth in the morning. Do not cut, crush, or chew.. 30 Cap 5 8 Active SYNTHROID 75 MCG TabletIndications:Ma lignant neoplasm of thyroid gland (HCC),Postsurgical hypothyroidism TAKE 1 TABLET BY MOUTH ONCE DAILY AT LEAST 30 MINUTES BEFORE BREAKFAST OR OTHER MEDS (275 MCG TOTAL DAILY DOSE). 30 Tab 5 8 Active LINZESS 290 MCG Capsule [...] suspected opioid overdose. Seek immediate medical attention. [email or web address] Active Prochlorperazine Maleate 5 MG Oral [...] before bedtime. 180 Tablet 1 3 Active Bumetanide 1 MG Oral TabletIndications:Li jean carlos cirrhosis secondary to nonalcoholic steatohepatitis (GILLESPIE) (HCC) Take 1 Tablet by mouth in the morning and 1 Tablet before bedtime. 180 Tablet 1 3 06/03/20 23 Discontinu ed(Refill) documented as of this encounter (statuses as of 06/05/2023) Active Problems Problem Noted Date Recurrent major depressive disorder, in partial remission 05/14/2017 Bariatric surgery status 08/10/2015 Liver cirrhosis 08/10/2015 GILLESPIE (nonalcoholic steatohepatitis) 07/25 Type 2 diabetes mellitus with hemoglobin A1c goal of less than 8.0% 12/23/2014 Overview: ICD-10 update of inactive term Dyslipidemia, goal LDL below 100 012 BMI 35-39 ISOLATED (SEE ACTUAL BMI) 01/23 Overview: Per Obesity Protocol, #19 Adult Acne 09/23/2008 Major depressive disorder 07/20/2008 Overview: ICD-10 update of inactive term Headache 12/16/2007 Overview: ICD-10 update of inactive term Malignant neoplasm of thyroid gland 09/26 Overview: 8 mm microfocus of Papillary Cancer--R lobe Adult Acne 10/22/2006 ADVANCE DIRECTIVE INFORMATION 08/06/2005 Overview: No, Advance Directive brochure given to patient at prior appointment. Esophageal reflux Postsurgical hypothyroidism documented as of this encounter (statuses as of 06/05/2023) Resolved Problems Problem Noted Date Resolved Date Iron deficiency anemia 11/15/2015 7 Type 2 diabetes mellitus wit h hemoglobin A1c goal of less than 7.0% 12/16/2013 12/23/2014 Overview: ICD-10 update of inactive term Dysmenorrhea 09/08/2008 05/14/2017 Hypocalcemia 10/16/2007 05/14/2017 Thyrotoxicosis without menti on of goiter or other cause, without mention of thyrotoxic crisis or storm 06/26/2007 05/14/20 17 BREECH PRESENT-ANTEPART 10/30/2005 01/14/20 06 CORD ENTANG NEC-ANTEPAR 10/30/2005 01/14/20 06 Other constipation 09/13/2005 01/13/2006 Hyperthyroidism 05/21/2005 05/14/2017 Overview: diag with preg 2004, off PTU since 06/29 Supervision of other high-risk 005 01/13/2006 Overview: 1st del at 34 wks, arrived 6 cm poss clot umbilical vein 2001 elev BP in labor 2003 ICD-10 update of inactive term Encounter for supervision of other normal pregna ncy 04/15/2005 01/13/2006 Overview: closely spaced pregs: 03/26 PTD at 32w, 08/28 39w ICD-10 update of inactive term Absence of menstruation 04/15/2005 05/21/20 05 Dysplasia of cervix (uteri) 04/24/200404/26 Overview: LG 04/29, Leep 12/26 and 07/30 ICD-10 update of inactive term Headache 10/01/2003 05/21/2005 Overview: ICD-10 update of inactive term GALACTORRHEA-ANTEPARTUM 03/25/2002 04/15/20 05 Other viral warts 03/25/2002 04/15/2005 Overview: ICD-10 update of inactive term Other viral warts 03/25/2002 05/21/2005 Overview: ICD-10 update of inactive term Abnormal findings on screening 002 04/15/2005 Menstruation, irregular 10/09/19 02 Anemia 05/21/2005 PRESCRIP-ORAL CONTRACEPT 002 Normal , first 04/04/20 02 documented as of this encounter (statuses as of 06/05/2023) Immunizations Name Administration Dates Next Due H1N1 2009 Influenza, IM 06/28/2009 PPD 07/13/2001 Seasonal Influenza, Split, I IV3, With Preserve, Inj 05/09/2023,05/25/2016,06/08/2015, 0 12,05/10/2009 TDAP (age 11 and older)(Adacel) 05/18/20 09,09/12/2008(Deferred: Patient Refused) documented as of this encounter Social History Tobacco Use Types Packs/Day Years Used Date Smoking Tobacco: Never Smokeless Tobacco: Never Alcohol Use Standard Drinks/Week Comments Not Currently 0 (1 standard drink = 0.6 oz pur e alcohol) 3 x yr Sex Assigned at Date Recorded Not on file Job Start Date Occupation Industry Not on file Not on file Not on file documented as of this encounter Miscellaneous Notes * Telephone Encounter - Darling Zelaya RN - 06/05/2023 9:14 AM EDT Images from the original note were not included. "Silva Pacheco, DO to [facility] Nurse Pool/Class 8:53 AM Please make sure the IR referral is sent to [place]. I had placed IR referral for TIPS last visit. IF she is short of breath and distended she needs to go to ER. Please make sure the transplant team in [place] ([facility]) has received our transplant order. Silva Pacheco, DO" I called and spoke to Niesha's . He answered the cell phone listed for her. The tells me they share this phone now. Reports her cell phone broke and they do not have a home phone. Reports he is at the dentist but when he goes back home he will relay this message. Reports she has been feelingthis way and did not feel much better after her paracentesis yesterday. He is agreeable to taking her to the ER. I asked if he could have her maybe call me back so I also can call report to the ER when I know she is on her way. He was agreeable to this. Scheduling can you assist with referrals? * Telephone Encounter - Shobha Wen LPN - 06/05/2023 8:21 AM EDT Pt calling in stating that she had a paracentesis yesterday( was on the phone for a great deal of time with pt),pt stating that her normal provider didn't tap her and she feels that she is filling upwith fluid. Pt doesn't feel any relief from her paracentesis. Pt stating that she is 237 lbs, same as she was yesterday. She is requesting to have a paracentesis 2 times a week, also stating that no one called her for the consult for the tips procedure and no one called her regarding transplant. She states that she does have some SOB, however, I could barely get a word in when trying to ask her more questions about her status. Pt denies abd pain but does have some intermittent cramping. Pt does state that she is distended and does have fluid in her legs. Pt is taking bumetanide 2 mg in the morning and one in the evening ( told her this changed yesterday per script that was signed, she stated that she was not aware) pt also taking spirolactone 1 in the morning and one in the evening. * Addendum Note - Silva Pacheco DO - 06/04/2023 7:58 AM EDTAddended by: SILVA PACHECO on: 06/04/2023 07:58 AM Modules accepted: Orders * Addendum Note - Dianne Bloom RN - 06/03/2023 3:28 PM EDTAddended by: DIANNE BLOOM on: 06/03/2023 03:28 PM Modules accepted: Orders * Telephone Encounter - Dianne Bloom RN - 06/03/2023 3:28 PM EDT Pended 2mg BID. * Telephone Encounter - Dianne Bloom RN - 06/03/2023 3:26 PM EDT Images from the original note were not included. Silva Pacheco, DO Darling Zelaya RN; [facility] Nurse Pool/Class34 minutes ago (2:44 PM) Ok for new bumex script * Telephone Encounter - Darling Zelaya RN - 06/03/2023 1:55 PM EDT Pt calling back in. I was on the phone with her for 14 minutes. Calling to see the outcome of the encounter from yesterday. Has a paracentesis tomorrow. Relayed that Dianne attempted to pass this onto the nurses at [facility] yesterday and is waiting a call back from her conditioning yard supervisor. Checked with Dianne and she has not heard back yet. Aware to express concerns tomorrow at her paracentesis appt as well. Also wanted to discuss her bumex and what dose she is to be on. I relayed dosing from last officenotes. Also reviewed she is to be on a low sodium diet. Copied last office visit notes below " -Liver disease severity. Pt.'s last MELD was 17. We will get MELD labs today. -Variceal screening: she reports she had an EGD in November through [facility] with small/tracevarices. Denies any history of banding. We will need a record of this. If small she needs repeat in1 year. -Fluid status: based on today's physical exam, the pt. has 3+ pedal edema and very large ascites almost tense. She is on bumex 3 mg BID and aldactone 100 mg BID. [facility] ER increased her from the 1 mg BID of bumex I had prescribed to 3 mg BID. Will decrease down to 2 mg BID. I strongly encouraged her to follow a low sodium diet no more than 2 grams/daily." She is asking if she can have a new prescription so that her bottle matches what she is to be taking. Dr. Pacheco are you willing to send in a script for the bumex? She tells me she has a differentprescription for bumex at home. She has been in and out of [facility] several times but tells me they have not changed her meds since her last OV. * Telephone Encounter - Dianne Bloom RN - 06/02/2023 3:05 PM EDT Pt calling to report that she has been experiencing abdominal pain and joint cramping during her albumin infusions at [facility] pre and post paracentesis. She states her next scheduled paracentesis is 06/04/23 and she is asking if they could ensure that her rate is 100 ml/hr to avoid any unfavorable symptoms. I called and spoke with [facility] who explained that the radiology nursing staff gives pre/post albumin. When I was transferred, I spoke with a nurse who explained that she did not know what the full name of her conditioning yard supervisor was, only that it was Bonnie, and that there are only 3-4 regular nurses (she beingone of them as a Traveler.) I explained the complaint and she replied, " I highly doubt that anyone would run Albumin in 20 minutes or less but I will pass it on." I left another message for Raymond Ferro RN conditioning yard supervisor to see if she can help me contact a conditioning yard supervisor to discuss. documented in this encounter Plan of Treatment Upcoming Encounters Date Type Specialty Care Team Description 06/13/2023 Office Visit Gastroenterology Silva Pacheco, [address] [place] [address] 08/12/2023 Laboratory Laboratory [place], [facility] [address] [place] [id number] 08/19/2023 Office Visit Hematology Oncology Sandra Evans MD [address] [place] [address] Health Maintenance Due Date Last Done Comments Hepatitis B (1 of 3 - 3-dose series) 1980 Pneumococcal Vaccine: Pediatrics (0 to 5 Years) and At-Risk Patients (6 to 64 Years) (1 - PCV) 1986 DIABETES-EYE EXAM 1998 HPV/Co-Test 2010 Cervical Cancer Screening 09/08/2011 Pap Smear 09/08/2011 09/08/2008, 07/25, 01/13/2006, Additional history exists Albumin/Creatinine Ratio 11/25/2015 11/24/2014, 02/2013 Depression Screening 10/15/2017 10/15/2016 Diabetic Foot Exam 05/14/2018 05/14/2017, 0 11/15/2015, 12/23/2014 TSH 05/21/2018 05/21/2017, 11/24, 09/30/2016, Additional history exists DTaP,Tdap,and Td Vaccines (2 - Td or Tdap) 05/18/2019 05/18/2009 B-12 08/19/2019 08/19/2018 Mammogram 2020 Lipid Panel 03/05/2022 03/05/2017, 0 09/2014, 03/31/2013, Additional history exists COVID-19 Vaccine (2022- season) 2023 07/02/2022, 01/23/2022, 07/24/2021, Additional history exists HbA1c 07/06/2023 01/03/2023, 0608/2021, 10/26/2020, Additional history exists GFR 04/15/2024 04/15/2023, [...] as of this encounter Visit Diagnoses Diagnosis 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) documented in this encounter Advance Directives Latest Code Status on File Code Status Date Activated Date Inactivated Comments Full Code 10/15/2007 5:16 PM 10/17/2007 5:01 PM Care Teams Service Officer Relationship Specialty Start Date End Date Endy Stanley, DO [address] [address] [place] [address] PCP - General Family Medicine 07/13/18 documented as of this encounter
--- OUTSIDE RECORDS SUMMARY | 2023-07-05 19:33 | External Medical Summary | Summary of Care ---
Author Name Unknown Organization [facility] Address [address] [facility] [place] [address] Phone [phone] Care Team Providers Care Business Case Analyst Name Role Phone Lizeth nEdy Mora DO Primary Care Provider [phone] Reason for Visit * Reason Onset Date Comments Advice 06/02/2023 Advice after her paracentesis Encounter Details Date Type Department Care Team Description 06/02/2023 Telephone Gastroenterology, [facility] [address] [place] [address] Silva Pacheco DO [address] [place] [address] Advice (Advice after her paracentesis ) Allergies [...] Information Patient taking differently: 200 mcg Oral [id number], Reported on 03/28/2023 Venlafaxine HCl ER 150 [...] suspected opioid overdose. Seek immediate medical attention. [email or web address] 0 Active Prochlorperazine Maleate 5 MG Oral [...] encounter Miscellaneous Notes * Telephone Encounter - Randa Lau LPN - 06/05/2023 10:47 AM EDT Call received from pt. Read below. Pt agreeable to go to ED. Will leave in about 20 mins. Pt askingfor PE study to make sure that is not the cause of there Trouble breathing. [place] Text sent to Dr. Pacheco with information. * Telephone Encounter - Darling Zelaya RN - 06/05/2023 9:14 AM EDT Images from the original note were not included. "Silva Pacheco, DO to [facility] Nurse [place]/Class 8:53 AM Please make sure the IR referral is sent to [place]. I had placed IR referral for TIPS last visit. IF she is short of breath and distended she needs to go to ER. Please make sure the transplant team in [place] ([facility] Heredia) has received our transplant order. [...] from the original note were not included. DO Darling Art, TIGIST; [facility] Nurse Pool/Class34 minutes ago (2:44 PM) Ok for new bumex script * Telephone Encounter - Darling Zelaya RN - 06/03/2023 1:55 PM EDT Pt calling back in. I was on the phone with her for 14 minutes. Calling to see the outcome of the encounter from yesterday. Has a paracentesis tomorrow. Relayed that Dianne attempted to pass this onto the nurses at [facility] yesterday and is waiting a call back from her switch operators supervisor. Checked with Dianne and she has [...] she had an EGD in November through [facility] with small/tracevarices. Denies any history of banding. We will need a record of this. If small she needs repeat in1 year. -Fluid status: based on today's physical exam, the pt. has 3+ pedal edema and very large ascites almost tense. She is on bumex 3 mg BID and aldactone 100 mg BID. [facility] ER increased her from the 1 mg [...] She has been in and out of [facility] several times but tells me they have not changed her meds since her last OV. * Telephone Encounter - Dianne Bloom RN - 06/02/2023 3:05 PM EDT Pt calling to report that she has been experiencing abdominal pain and joint cramping during her albumin infusions at [facility] pre and post paracentesis. She states her next scheduled paracentesis is 06/04/23 and she is asking if they could ensure that her rate is 100 ml/hr to avoid any unfavorable symptoms. I called and spoke with [facility] who explained that the radiology nursing staff gives pre/post albumin. When I was transferred, I spoke with a nurse who explained that she did not know what the full name of her switch operators supervisor was, only that it was Bonnie, and that there are only 3-4 regular nurses (she beingone of them as a Traveler.) I explained the complaint and she replied, " I highly doubt that anyone would run Albumin in 20 minutes or less but I will pass it on." I left another message for Raymond Ferro, TIGIST switch operators supervisor to see if she can help me contact a switch operators supervisor to discuss. documented in this encounter Plan of Treatment Upcoming Encounters Date Type Specialty Care Team Description 06/13/2023 Office Visit Gastroenterology Silva Pacheco DO [address] [place] [address] 08/12/2023 Laboratory Laboratory [facility] [address] [place] [address] 08/19/2023 Office Visit Hematology Oncology Nathan, Sandra Mcqueen MD [address] [facility], [place] [address] Health Maintenance Due Date Last Done Comments [...] 09/2014, 03/31/2013, Additional history exists COVID-19 Vaccine (6 - 2023-24 season) 2023 07/02/2022, 01/23/2022, 07/24/2021, Additional history [...] 5:16 PM 10/17/2007 5:01 PM Care Teams Business Case Analyst Relationship Specialty Start Date End Date Endy Stanley, DO [address] [address] [place] [address] PCP - General Family Medicine 07/13/18 documented as of this encounter
--- OUTSIDE RECORDS SUMMARY | 2023-07-05 19:33 | External Medical Summary | Summary of Care ---
Author Name Unknown Organization [facility] Address [address] [facility] [place] [address] Phone [phone] Care Team Providers Care [employer] Name Role Phone Lizeth Endy Mora DO Primary Care Provider [phone] Reason for Visit * Reason Onset Date Comments Follow Up 06/13/2023 Pt missed appt, pt asking if provider can call and discuss TIF with her via phone or video to be seen sooner. Encounter Details Date Type Department Care Team (Late st Contact Info) Description 06/13/2023 Telephone Gastroenterology, [facility] [address] [place] [address] Hilda Harper DO [address] [place] [address] Follow Up (Pt missed appt, pt asking if pr... Allergies Active Allergy Reactions Criticality Noted Date Comments Codeine Hives 07/18/2012 Metformin Abdominal pain Low 03/30/2013 documented as of this encounter (statuses as of 06/17/2023) Medications Medication Sig Dispensed Refills Start Date [...] cold sores 4 Tab 11 05/03/2016 Active SYNTHROID 200 MCG TabletIndications:Mal ignant neoplasm of thyroid gland (HCC),Postsurgical hypothyroidism take one tablet by mouth at least 30 mins prior to breakfast or other meds. take with 75mg tablet to total 275mg dose 30 Tab 10 11/10/2017 Active Additional Information Patient taking differently: 200 mcg Oral [id number], Reported on 03/28/2023 Venlafaxine HCl ER 150 MG Oral Capsule Extended Release 24 Hour Take 37.5 mg by mouth in the morning. Do not cut, crush, or chew.. 30 Cap 5 01/13/2018 Active SYNTHROID 75 MCG TabletIndications:Mal ignant neoplasm of thyroid gland (HCC),Postsurgical hypothyroidism TAKE 1 TABLET BY MOUTH ONCE DAILY AT LEAST 30 MINUTES BEFORE BREAKFAST OR OTHER MEDS (275 MCG TOTAL DAILY DOSE). 30 Tab 5 03/03/2018 Active LINZESS 290 MCG Capsule TAKE 1 [...] suspected opioid overdose. Seek immediate medical attention. [email or web address]?v=[email or web address] 0 Active Prochlorperazine Maleate 5 MG Oral [...] as of this encounter (statuses as of 06/17/2023) Active Problems Problem Noted Date Diagnosed Date [...] as of this encounter (statuses as of 06/17/2023) Resolved Problems Problem Noted Date Diagnosed Date [...] of cervix (uteri) 04/24/2004 05/14/2017 Overview: LG 9/05, Leep 12/26 and 07/30 ICD-10 update of [...] as of this encounter (statuses as of 06/17/2023) Immunizations Name Administration Dates Next Due H1N1 [...] encounter Miscellaneous Notes * Telephone Encounter - Dianne Bloom RN - 06/17/2023 4:21 PM EDT Appt noted for 06/23. * Telephone Encounter - CHIVO Warren - 06/13/2023 3:14 PM EDT IR reviewing and will reach out to pt regarding appt. 07/03 appt w/ Enrike fraser * Telephone Encounter - CHIVO Warren - 06/13/2023 3:01 PM EDT She needs to schedule follow up appointment with me. Also, I placed IR referral at last visit one month ago. I do not see this was scheduled for her or anything. Can we please make sure IR is aware of this referral she needs this scheduled. I had already discussed TIPS with her at last visit and put referral in. Please resend the IR referral. Hilda Harper DO * Telephone Encounter - Shobha Wen LPN - 06/13/2023 11:59 AM EDT Pt missed her appt today, pt asked when trying to reschedule if dr harper would see her via video or call her on the phone to discuss the TIPS Dr harper? documented in this encounter Plan of Treatment Upcoming Encounters Date Type Department Care Team (Late st Contact Info) Description 06/23/2023 3:00 PM EDT Office Visit Radiology, [place] [address] [place] [address] José Noble MD [address] [place] [address] 07/03/2023 11:00 AM EST Office Visit Hepatology, [facility] [address] [facility] [place] [address] Hilda Harper [facility] [address] [facility] [address] 08/12/2023 12:30 PM EST Laboratory Laboratory, [address] [id number] [address] [address] [place] [address] 08/19/2023 12:30 PM EST Office Visit Hematology/Oncology [facility] [address] [place] [address] Sandra Evans MD [address] [place] [address] Health Maintenance Due Date Last Done Comments Hepatitis B (1 of 3 - 3-dose series) 1980 Pneumococcal Vaccine: Pediatrics (0 to 5 Years) and At-Risk Patients (6 to 64 Years) (1 - PCV) 1986 DIABETES-EYE EXAM 1998 HPV/Co-Test 2010 Cervical Cancer Screening 09/08/2011 Pap Smear 09/08/2011 09/08/2008, 07/25, 01/13/2006, Additional history exists Albumin/Creatinine Ratio 11/25/2015 11/24/2014, 080 02/2013 Depression Screening 10/15/2017 10/15/2016 Diabetic Foot Exam 05/14/2018 05/14/2017, 0 11/15/2015, 12/23/2014 TSH 05/21/2018 05/21/2017, 11/24, 09/30/2016, Additional history exists DTaP,Tdap,and Td Vaccines (2 - Td or Tdap) 05/18/2019 05/18/2009 B-12 08/19/2019 08/19/2018 Mammogram 2020 Lipid Panel 03/05/2022 03/05/2017, 0409/2014, 03/31/2013, Additional history exists COVID-19 Vaccine ( [...] Not on filedocumented as of this encounter Advance Directives Latest Code Status on File Code Status Date Activated Date Inactivated Comments Full Code 10/15/2007 5:16 PM 10/17/2007 5:01 PM Care Teams Junior [employer] Relationship Specialty Start Date End Date Endy Stanley DO [address] [address] [place] [address] PCP - General Family Medicine 07/13/18 documented as of this encounter
--- OUTSIDE RECORDS SUMMARY | 2023-07-05 19:33 | External Medical Summary | Summary of Care ---
Author Name Unknown Organization [facility] Address [address] 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 Seek immediate medical attention. [email or web address]?v=[email or web address] 0 Active Prochlorperazine Maleate 5 MG Oral [...] as of this encounter (statuses as of 06/16/2023) Active Problems Problem Noted Date Diagnosed Date [...] as of this encounter (statuses as of 06/16/2023) Resolved Problems Problem Noted Date Diagnosed Date [...] as of this encounter (statuses as of 06/16/2023) Immunizations Name Administration Dates Next Due H1N1 [...] 07/03/2023 11:00 AM EST Office Visit Hepatology, [facility] [address] [place] [address] Hilda Calvert DO [address] [place] [address] 08/12/2023 12:30 PM EST Laboratory Laboratory, [place] [address] [place] [address] [place] [place] [address] 08/19/2023 12:30 PM EST Office Visit Hematology/Oncology [facility] [address] [place] [address] [place] [address] Sandra Evans MD [address] [place] [address] Health Maintenance Due Date Last Done Comments [...] 07/24/2021, Additional history exists HbA1c 07/06/2023 01/03/2023, 060 08/2021, 10/26/2020, Additional history exists GFR 04/15/2024 [...] Procedure Name Priority Date/Time Associated Diagnosis Comments IR PARACENTESIS Routine 06/13/2023 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) CHEMISTRY-OUTSIDE Routine 06/13/2023 documented in this encounter Results * (ABNORMAL) CHEMISTRY-OUTSIDE (06/13/2023) Not all results display below - see scan for full detail OUTSIDE LAB (SEE SCANNED REPORT) Comment:SCAN INCL: PT, INR, PTT, CBC CREATININE-OUTSID E LAB OUTSIDE LAB (SEE SCANNED REPORT) EGFR-OUTSIDE LAB OUT SIDE LAB (SEE SCANNED REPORT) POTASSIUM-OUTSIDE LAB OUTSIDE LAB (SEE SCANNED REPORT) GLUCOSE-OUTSIDE LAB OUTSIDE LAB (SEE SCANNED REPORT) HOURS FASTING OUTSID E LAB (SEE SCANNED REPORT) TRIGLYCERIDES-OUT SIDE LAB OUTSIDE LAB (SEE SCANNED REPORT) CHOLESTEROL-OUTSI DE LAB OUTSIDE LAB (SEE SCANNED REPORT) HDL-OUTSIDE LAB OUTS GRECIA LAB (SEE SCANNED REPORT) CHOL/HDL RATIO-OUTSIDE LAB OUTSIDE LA B (SEE SCANNED REPORT) LDL (CALCULATED)-OUTS GRECIA LAB OUTSIDE LAB (SEE SCANNED REPORT) LDL (DIRECT MEASURE)-OUTSIDE LAB OUTSIDE LAB (SEE SCANNED REPORT) HEMOGLOBIN, W5M-JPRQRGR LAB OUTSIDE LAB (SEE SCANNED REPORT) PHOSPHORUS-OUTSID E LAB OUTSIDE LAB (SEE SCANNED REPORT) PTH-OUTSIDE LAB OUTS GRECIA LAB (SEE SCANNED REPORT) MICROALBUMIN RATIO-OUTSIDE LAB OUTSIDE LA B (SEE SCANNED REPORT) PROTEIN, UA-OUTSIDE LAB OUTSIDE LAB (SEE SCANNED REPORT) HEMOGLOBIN-OUTSID E LAB 8.3(A) 12.0 - 16.0 G/DL OUTSIDE LAB (SEE SCANNED REPORT) 06/13/2023 Hilda Calvert DO LABORATORY OUTSIDE LAB (SEE SCANNED REPORT) * IR PARACENTESIS (06/13/2023) Anatomical Region Laterality Modality Any Other 06/13/2023 Hilda Calvert DO RAD SPECIAL WI OCEDURES documented in this encounter Visit Diagnoses Diagnosis 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
--- OUTSIDE RECORDS SUMMARY | 2023-07-05 19:33 | External Medical Summary | Summary of Care ---
Author Name Unknown Organization [facility] Address [address] [facility] [place] [address] Phone [phone] Care Team Providers Care Service Desk Analyst Name Role Phone Lizeth Endy Mora DO Primary Care Provider +1 [phone] Reason for Visit * Reason Onset Date Comments Advice 06/02/2023 Advice after her paracentesis Encounter Details Date Type Department Care Team Description 06/02/2023 Telephone Gastroenterology, [facility] [address] [place] [address] Silva Pacheco DO [address] [place] [address] Advice (Advice after her paracentesis ) Allergies [...] Information Patient taking differently: 200 mcg Oral [id number], Reported on 03/28/2023 Venlafaxine HCl ER 150 [...] suspected opioid overdose. Seek immediate medical attention. [email or web address]/watch?v=[email or web address] 0 Active Prochlorperazine Maleate 5 MG Oral [...] were not included. "Silva Pacheco, DO to [facility] Nurse Pool/Class 8:53 AM Please make sure the IR referral is sent to [place]. I had placed IR referral for [facility] last visit. IF she is short of breath and distended she needs to go to ER. Please make sure the transplant team in [place] (Juliana Heredia) has received our transplant order. [...] Silva Pacheco, DO Darling Zelaya RN; [facility] Nurse Pool/Class34 minutes ago (2:44 PM) Ok for new bumex script * Telephone Encounter - Darling Zelaya RN - 06/03/2023 1:55 PM EDT Pt calling back in. I was on the phone with her for 14 minutes. Calling to see the outcome of the encounter from yesterday. Has a paracentesis tomorrow. Relayed that Dianne attempted to pass this onto the nurses at [facility] yesterday and is waiting a call back from her treating plant supervisor. Checked with Dianne and she has [...] she had an EGD in November through [facility] with small/tracevarices. Denies any history of banding. We will need a record of this. If small she needs repeat in1 year. -Fluid status: based on today's physical exam, the pt. has 3+ pedal edema and very large ascites almost tense. She is on bumex 3 mg BID and aldactone 100 mg BID. [facility] ER increased her from the 1 mg [...] She has been in and out of [facility] several times but tells me they have not changed her meds since her last OV. * Telephone Encounter - Dianne Bloom RN - 06/02/2023 3:05 PM EDT Pt calling to report that she has been experiencing abdominal pain and joint cramping during her albumin infusions at [facility] pre and post paracentesis. She states her [...] know what the full name of her treating plant supervisor was, only that it was Bonnie, and that there are only 3-4 regular nurses (she beingone of them as a Traveler.) I explained the complaint and she replied, " I highly doubt that anyone would run Albumin in 20 minutes or less but I will pass it on." I left another message for Raymond Ferro RN treating plant supervisor to see if she can help me contact a treating plant supervisor to discuss. documented in this encounter Plan of Treatment Upcoming Encounters Date Type Specialty Care Team Description 06/13/2023 Office Visit Gastroenterology Silva Pacheco, [address] [place] [address] 08/12/2023 Laboratory Laboratory [place], [facility] [address] [place] [address] 08/19/2023 Office Visit Hematology Oncology Sandra Evans MD [address] [place] [address] Health Maintenance Due Date Last Done Comments [...] PM 10/17/2007 5:01 PM Care Teams Service Desk Analyst Relationship Specialty Start Date End Date Endy Stanley, DO [address] [address] [place] [address] PCP - General Family Medicine 07/13/18 documented as of this encounter
--- OUTSIDE RECORDS SUMMARY | 2023-07-05 19:33 | External Medical Summary | Summary of Care ---
Author Name Unknown Organization [facility] Address [address] [facility] [place] [address] Phone [phone] Care Team Providers Care Steward/Stewardess Dining Room Name Role Phone Lizeth Endy Mora DO Primary Care Provider [phone] [phone] Reason for Visit * Reason Onset Date Comments Advice 06/02/2023 Encounter Details Date Type Department Care Team Description 06/02/2023 Telephone Gastroenterology, [facility] [address] [place] [address] Hilda Calvert DO [address] [place] [address] Advice Allergies Active Allergy Reactions Severity Noted Date Comments Codeine Hives 07/18/2012 Metformin Abdominal pain Low 03/30/2013 documented as of this encounter (statuses as of 06/03/2023) Medications Medication Sig Dispensed Refills Start Date [...] Information Patient taking differently: 200 mcg Oral [id number], Reported on 03/28/2023 Venlafaxine HCl ER 150 [...] suspected opioid overdose. Seek immediate medical attention. [email or web address]/watch?v=[email or web address] 0 Active Prochlorperazine Maleate 5 MG Oral [...] the skin in the morning. 0 Active Bumetanide 1 MG Oral TabletIndications:Cari er cirrhosis secondary to nonalcoholic steatohepatitis (GILLESPIE) (HCC) Take 1 Tablet by mouth in the morning and 1 Tablet before bedtime. 180 Tablet 1 03/28/2023 Active Additional Information Patient taking differently: 3 mgOral BID (.AM/PM), Reported on 05/23/2023 Spironolactone 100 MG Oral Tablet (Aldactone)Indication s:Liver [...] by mouth in the morning. 0 Active documented as of this encounter (statuses as of 06/03/2023) Active Problems Problem Noted Date Recurrent major [...] as of this encounter (statuses as of 06/03/2023) Resolved Problems Problem Noted Date Resolved Date [...] Dysplasia of cervix (uteri) 04/24/200404/26 Overview: LG 9/05, Leep 12/26 and 07/30 [...] as of this encounter (statuses as of 06/03/2023) Immunizations Name Administration Dates Next Due H1N1 [...] as of this encounter Miscellaneous Notes * Addendum Note - Dianne Bloom RN - 06/03/2023 3:28 PM EDTAddended by: DIANNE BLOOM on: 06/03/2023 03:28 PM Modules accepted: Orders * Telephone Encounter - Dianne Bloom RN - 06/03/2023 3:28 PM EDT Pended 2mg BID. * Telephone Encounter - Dianne Bloom RN - 06/03/2023 3:26 PM EDT Images from the original note were not included. Hilda Calvert, DO Darling Zelaya RN; [facility] Nurse Pool/Class34 minutes ago (2:44 PM) Ok for new bumex script * Telephone Encounter - Darling Zelaya RN - 06/03/2023 1:55 PM EDT Pt calling back in. I was on the phone with her for 14 minutes. Calling to see the outcome of the encounter from yesterday. Has a paracentesis tomorrow. Relayed that Dianne attempted to pass this onto the nurses at [facility] yesterday and is waiting a call back from her supervisor [employer] primer canning. Checked with Dianne and she has not [...] she had an EGD in November [facility] with small/tracevarices. Denies any history of banding. We will need a record of this. If small she needs repeat in1 year. -Fluid status: based on today's physical exam, the pt. has 3+ pedal edema and very large ascites almost tense. She is on bumex 3 mg BID and aldactone 100 mg BID. [facility] ER increased her from the 1 mg BID of bumex I had prescribed to 3 mg BID. Will decrease down to 2 mg BID. I strongly encouraged her to follow a low sodium diet no more than 2 grams/daily." She is asking if she can have a new prescription so that her bottle matches what she is to be taking. Dr. Calvert are you willing to send in a script for the bumex? She tells me she has a differentprescription for bumex at home. She has been in and out of [facility] several times but tells me they have not changed her meds since her last OV. * Telephone Encounter - Dianne Bloom RN - 06/02/2023 3:05 PM EDT Pt calling to report that she has been experiencing abdominal pain and joint cramping during her albumin infusions at [facility] pre and post paracentesis. She [...] know what the full name of her supervisor powder and primer canning was, only that it was Bonnie, and that there are only 3-4 regular nurses (she beingone of them as a Traveler.) I explained the complaint and she replied, " I highly doubt that anyone would run Albumin in 20 minutes or less but I will pass it on." I left another message for Raymond Ferro, TIGIST supervisor powder and primer canning to see if she can help me contact a supervisor powder and primer canning to discuss. documented in this encounter Plan of Treatment Upcoming Encounters Date Type Specialty Care Team Description 06/13/2023 Office Visit Gastroenterology Hilda Calvert DO [address] [place] [address] 08/12/2023 Laboratory Laboratory [facility] [address] [place] [address] 08/19/2023 Office Visit Hematology Oncology Sandra Evans MD [address] [facility] [address] Health Maintenance Due Date Last Done Comments Hepatitis B (1 of 3 - 3-dose series) 1980 Pneumococcal Vaccine: Pediatrics (0 to 5 Years) and At-Risk Patients (6 to 64 Years) (1 - PCV) 1986 DIABETES-EYE EXAM 1998 HPV/Co-Test 2010 Cervical Cancer Screening 09/08/2011 Pap Smear 09/08/2011 09/08/2008, 07/25, 01/13/2006, Additional history exists Albumin/Creatinine Ratio 11/25/2015 11/24/2014, 08/0 02/2013 Depression Screening 10/15/2017 10/15/2016 Diabetic Foot [...] 5:16 PM 10/17/2007 5:01 PM Care Teams Steward/Stewardess Dining Room Relationship Specialty Start Date End Date Endy Stanley, DO [address] [facility] [address] [place] [address] [place] [address] PCP - General Family Medicine 07/13/18 documented as of this encounter
--- OUTSIDE RECORDS SUMMARY | 2023-07-05 19:33 | External Medical Summary | Summary of Care ---
Author Name Unknown Organization [facility] Address [address] [facility] [place] [address] Phone [phone] Care Team Providers Care Furnace Caretaker Name Role Phone Lizeth Endy Mora DO Primary Care Provider +1 [phone] Reason for Visit * Reason Onset Date Comments Scheduling 06/16/2023 Encounter Details Date Type Department Care Team (Late st Contact Info) Description 06/16/2023 Telephone Gastroenterology, [facility] [address] [place] [address] Hilda Calvert DO [address] [place] [address] Scheduling Allergies Active Allergy Reactions Criticality Noted Date [...] Information Patient taking differently: 200 mcg Oral [id number], Reported on 03/28/2023 Venlafaxine HCl ER 150 [...] suspected opioid overdose. Seek immediate medical attention. [email or web address]?v=[email or web address] 0 Active Prochlorperazine Maleate 5 MG Oral [...] encounter Miscellaneous Notes * Telephone Encounter - CHIVO Yu - 06/16/2023 7:54 AM EDT The order was sent to the IR Doctor in [place] to review and he suggests that the patient be seen at [facility], since the Locums here don't see patients here for Tipps and or a consult , and we don't haveour own IR doctor at [facility] to treat the patient. The [facility] IR utilities estimator and drafter will be reaching out to the patient to schedule. Sorry for any incontinence. documented in this encounter Plan of Treatment Upcoming Encounters Date Type Department Care Team (Late st Contact Info) Description 07/03/2023 11:00 AM EST Office Visit Hepatology, [facility] [address] [place] [address] Hilda Calvert DO [address] [place] [address] 08/12/2023 12:30 PM EST Laboratory Laboratory, [address] [place] [id number] [facility] [address] [facility] [place] [address] 08/19/2023 12:30 PM EST Office Visit Hematology/Oncology [facility] [address] [facility] [place] [address] Sandra Evans MD 200 [facility] [place] [address] Health Maintenance Due Date Last Done Comments [...] 0409/2014, 03/31/2013, Additional history exists COVID-19 Vaccine (2022- [...] 5:16 PM 10/17/2007 5:01 PM Care Teams Furnace Caretaker Relationship Specialty Start Date End Date Endy Stanley DO [address] [place] [address] [place] [address] PCP - General Family Medicine 07/13/18 documented as of this encounter
--- OUTSIDE RECORDS SUMMARY | 2023-07-05 19:33 | External Medical Summary | Summary of Care ---
Author Name Unknown Organization [facility] Address [address] [facility] [place] [address] Phone [phone] Care Team Providers Care Stockholder Name Role Phone Lizeth Endy Mora DO Primary Care Provider +1 [phone] Reason for Visit * Reason Onset Date Comments Advice 06/02/2023 Encounter Details Date Type Department Care Team Description 06/02/2023 Telephone Gastroenterology, [facility] [address] [place] [address] Hilda Calvert DO [address] [place] [address] Advice Allergies Active Allergy Reactions Severity Noted [...] Information Patient taking differently: 200 mcg Oral [id number], Reported on 03/28/2023 Venlafaxine HCl ER 150 [...] suspected opioid overdose. Seek immediate medical attention. [email or web address]/watch?v=[email or web address] 0 Active Prochlorperazine Maleate 5 MG Oral [...] Calvert, DO Darling Zelaya RN; [facility] Nurse Pool/Class34 minutes ago (2:44 PM) Ok for new bumex script * Telephone Encounter - Darling Zelaya RN - 06/03/2023 1:55 PM EDT Pt calling back in. I was on the phone with her for 14 minutes. Calling to see the outcome of the encounter from yesterday. Has a paracentesis tomorrow. Relayed that Dianne attempted to pass this onto the nurses at [facility] yesterday and is waiting a call back from her processing talc and borate supervisor. Checked with Dianne and she has [...] she had an EGD in November through [facility] with small/tracevarices. Denies any history of banding. We will need a record of this. If small she needs repeat in1 year. -Fluid status: based on today's physical exam, the pt. has 3+ pedal edema and very large ascites almost tense. She is on bumex 3 mg BID and aldactone 100 mg BID. [facility] ER increased her from the [...] She has been in and out of [facility] several times but tells me they have not changed her meds since her last OV. * Telephone Encounter - Dianne Bloom RN - 06/02/2023 3:05 PM EDT Pt calling to report that she has been experiencing abdominal pain and joint cramping during her albumin infusions at [facility] pre and post paracentesis. She [...] know what the full name of her processing talc and borate supervisor was, only that it was Bonnie, and that there are only 3-4 regular nurses (she beingone of them as a Traveler.) I explained the complaint and she replied, " I highly doubt that anyone would run Albumin in 20 minutes or less but I will pass it on." I left another message for Raymond Ferro, TIGIST processing talc and borate supervisor to see if she can help me contact a processing talc and borate supervisor to discuss. documented in this encounter Plan of Treatment Upcoming Encounters Date Type Specialty Care Team Description 06/13/2023 Office Visit Gastroenterology Hilda Calvert DO [address] [place] [address] 08/12/2023 Laboratory Laboratory [facility] [address] [facility] [place] [address] 08/19/2023 Office Visit Hematology Oncology Sandra Evans MD [address] [facility] [address] Health Maintenance Due Date Last Done Comments [...] 5:16 PM 10/17/2007 5:01 PM Care Teams Stockholder Relationship Specialty Start Date End Date Endy Stanley, DO 1 [facility] [address] [place] [address] [place] [address] PCP - General Family Medicine 07/13/18 documented as of this encounter
--- OUTSIDE RECORDS SUMMARY | 2023-07-05 19:33 | External Medical Summary | Summary of Care ---
Author Name Unknown Organization [facility] Address [address] [facility] [place] [address] Phone [phone] Care Team Providers Care Construction Checker Name Role Phone Endy Stanley DO Primary Care Provider +1 [phone] Reason for Visit * Reason Onset Date Comments Follow Up 06/13/2023 Pt missed appt, pt asking if provider can call and discuss TIF with her via phone or video to be seen sooner. Encounter Details Date Type Department Care Team Description 06/13/2023 Telephone Gastroenterology, [facility] [address] [place] [address] Hilda Harper DO [address] [place] [address] Follow Up (Pt missed appt, pt asking if pr... Allergies Active Allergy Reactions Severity Noted Date Comments Codeine Hives 07/18/2012 Metformin Abdominal pain Low 03/30/2013 documented as of this encounter (statuses as of 06/13/2023) Medications Medication Sig Dispensed Refills Start Date [...] Information Patient taking differently: 200 mcg Oral [id number], Reported on 03/28/2023 Venlafaxine HCl ER 150 [...] suspected opioid overdose. Seek immediate medical attention. [email or web address]/[email or web address]?v=[email or web address] 0 Active Prochlorperazine Maleate 5 MG Oral [...] as of this encounter (statuses as of 06/13/2023) Active Problems Problem Noted Date Recurrent major [...] as of this encounter (statuses as of 06/13/2023) Resolved Problems Problem Noted Date Resolved Date [...] as of this encounter (statuses as of 06/13/2023) Immunizations Name Administration Dates Next Due H1N1 [...] Miscellaneous Notes * Telephone Encounter - CHIVO Warren - [...] Encounters Date Type Specialty Care Team Description 07/03/2023 Office Visit Gastroenterology Hilda Harper, [address] [place] [address] 08/12/2023 Laboratory Laboratory [facility] [address] [place] [address] 08/19/2023 Office Visit Hematology Oncology Sandra Evans MD [address] [facility] [address] Health Maintenance Due Date Last Done Comments [...] 5:16 PM 10/17/2007 5:01 PM Care Teams Construction Checker Relationship Specialty Start Date End Date Endy Stanley, DO [address] [address] [place] [address] PCP - General Family Medicine 07/13/18 documented as of this encounter
--- OUTSIDE RECORDS SUMMARY | 2023-07-05 19:33 | External Medical Summary | Summary of Care ---
Author Name Unknown Organization [facility] Address [address] [facility] [place] [address] Phone [phone] Care Team Providers Care School Resource Officer Name Role Phone Lizeth Endy Mora DO Primary Care Provider +1 [phone] Reason for Visit * Reason Onset Date Comments Advice 06/02/2023 Advice after her paracentesis Encounter Details Date Type Department Care Team Description 06/02/2023 Telephone Gastroenterology, [facility] [address] [place] [address] Silva Pacheco DO [address] [place] [address] Advice (Advice after her paracentesis ) Allergies [...] Information Patient taking differently: 200 mcg Oral [id number], Reported on 03/28/2023 Venlafaxine HCl ER 150 [...] suspected opioid overdose. Seek immediate medical attention. [email or web address]?v=[email or web address] 0 Active Prochlorperazine Maleate 5 MG Oral [...] encounter Miscellaneous Notes * Telephone Encounter - Shobha Wen LPN [...] were not included. DO Darling Art, TIGIST; [facility] Nurse Pool/Class34 minutes ago (2:44 PM) [...] pass this onto the nurses at [facility] yesterday and is waiting a call back from her merchandise supervisor. Checked with Dianne and she has [...] she had an EGD in November through [facility] with small/tracevarices. Denies any history of banding. We will need a record of this. If small she needs repeat in1 year. -Fluid status: based on today's physical exam, the pt. has 3+ pedal edema and very large ascites almost tense. She is on bumex 3 mg BID and aldactone 100 mg BID. [facility] ER increased her from the 1 [...] She has been in and out of [facility] several times but tells me they have not changed her meds since her last OV. * Telephone Encounter - Dianne Bloom RN - 06/02/2023 3:05 PM EDT Pt calling to report that she has been experiencing abdominal pain and joint cramping during her albumin infusions at [facility] pre and post paracentesis. She states her next scheduled paracentesis is 06/04/23 and she is asking if they could ensure that her rate is 100 ml/hr to avoid any unfavorable symptoms. I called and spoke with [facility] who explained that the radiology nursing staff gives pre/post albumin. When I was transferred, I spoke with a nurse who explained that she did not know what the full name of her merchandise supervisor was, only that it was Bonnie, and that there are only 3-4 regular nurses (she beingone of them as a Traveler.) I explained the complaint and she replied, " I highly doubt that anyone would run Albumin in 20 minutes or less but I will pass it on." I left another message for Raymond Ferro RN merchandise supervisor to see if she can help me contact a merchandise supervisor to discuss. documented in this encounter Plan of Treatment Upcoming Encounters Date Type Specialty Care Team Description 06/13/2023 Office Visit Gastroenterology Silva Pacheco DO [address] [place] [address] 08/12/2023 Laboratory Laboratory [facility] [address] [place] [address] 08/19/2023 Office Visit Hematology Oncology Sandra Evans MD [address] [place] [address] Health Maintenance Due Date Last Done Comments [...] 07/24/2021, Additional history exists HbA1c 07/06/2023 01/03/2023, 0 08/2021, 10/26/2020, Additional history exists GFR 04/15/2024 [...] 5:16 PM 10/17/2007 5:01 PM Care Teams School Resource Officer Relationship Specialty Start Date End Date Endy Stanley, DO [address] [place] [address] [place] [address] PCP - General Family Medicine 07/13/18 documented as of this encounter
--- OUTSIDE RECORDS SUMMARY | 2023-07-05 19:33 | External Medical Summary | Summary of Care ---
Author Name Unknown Organization [facility] Address [address] [facility] [place] [address] Phone [phone] Care Team Providers Care Road Marker Name Role Phone Lizeth Endy Mora DO Primary Care Provider +1 [phone] Encounter Details Date Type Department Care Team Description 06/05/2023 Orders Only Gastroenterology, [facility] [address] [place] [address] Hilda Calvert DO [address] [place] [address] 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) Allergies Active Allergy Reactions Severity Noted Date [...] Information Patient taking differently: 200 mcg Oral [id number], Reported on 03/28/2023 Venlafaxine HCl ER 150 [...] suspected opioid overdose. Seek immediate medical attention. [email or web address] 0 Active Prochlorperazine Maleate 5 MG Oral [...] morning. 0 Active Bumetanide 1 MG Oral TabletIndications:Cair er cirrhosis secondary to nonalcoholic steatohepatitis (GILLESPIE) [...] cervix (uteri) 04/24/200404/26 Overview: LG 9/05, Leep 5/04 and 12/06 ICD-10 update of inactive term Headache 10/01/2003 [...] Visit Gastroenterology Hilda Calvert DO [address] [place] [address] 08/12/2023 Laboratory [facility] [address] [place] [address] 08/19/2023 Office Visit Hematology Oncology Sandra Evans MD [address] [place] [address] Health Maintenance Due Date Last Done Comments [...] Procedure Name Priority Date/Time Associated Diagnosis Comments PT INR Routine 06/04/2023 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) CBC Routine 06/04/2023 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) documented in this encounter Results * PT INR (06/04/2023) Blood Venous blood specimen / Unknown 06/04/2023 Hildakathrin Loyola Enrike DO LAB BLOOD ORDBlaze [facility] OUTSIDE LAB (SEE SCANNED REPORT) * (ABNORMAL) CBC (06/04/2023) HEMOGLOBIN-OUT SIDE LAB 8.1(A) 12 - 16 G/DL OUTSIDE LAB (SEE SCANNED REPORT) Blood Venous blood specimen / Unknown 06/04/2023 Hilda Millablaze Calvert LAB BLOOD ARELIS [facility] OUTSIDE [facility] (SEE SCANNED REPORT) documented in this encounter Visit Diagnoses Diagnosis 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
--- OUTSIDE RECORDS SUMMARY | 2023-07-05 19:33 | External Medical Summary | Summary of Care ---
Author Name Unknown Organization [facility] Address [address] [facility] [place] [address] Phone [phone] Care Team Providers Care Electronic Page Makeup System Operator Name Role Phone Lizeth Endy Mora DO Primary Care Provider [phone] [phone] Encounter Details Date Type Department Care Team Description 06/05/2023 Orders Only Gastroenterology, [facility] [address] [place] [address] Hilda Calvert DO [address] [place] [address] 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) [...] Information Patient taking differently: 200 mcg Oral [id number], Reported on 03/28/2023 Venlafaxine HCl ER 150 [...] suspected opioid overdose. Seek immediate medical attention. [email or web address] 0 Active Prochlorperazine Maleate 5 MG Oral [...] Visit Gastroenterology Hilda Calvert DO [address] [place] [address] 08/12/[address] 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
--- OUTSIDE RECORDS SUMMARY | 2023-07-05 19:33 | External Medical Summary | Summary of Care ---
Author Name Unknown Organization [facility] Address [address] [facility] [place] [address] Phone [phone] Care Team Providers Care Almond Blancher Hand Name Role Phone Endy Stanley DO Primary Care Provider [phone] [phone] Reason for Visit * Reason Onset Date Comments Advice 06/02/2023 Encounter Details Date Type Department Care Team Description 06/02/2023 Telephone Gastroenterology, [facility] [address] [place] [address] Hilda Calvert DO [address] [place] [address] Advice Allergies Active Allergy Reactions Severity Noted Date Comments Codeine Hives 07/18/2012 Metformin Abdominal pain Low 03/30/2013 documented as of this encounter (statuses as of 06/04/2023) Medications Medication Sig Dispensed Refills Start Date End Date Status ONETOUCH ULTRASOFT LANCETS MISCIndications:Type II or unspecified type diabetes mellitus without mention of complication, uncontrolled use as directed [address] 3 Active Additional Information Patient not taking.Reported on 03/28/2023 TRETINOIN 0.05 % EX CREAIndications:Othe r acne APPLY TO SKIN AT BEDTIME 30 MINUTES AFTER WASHING AND DRYING SKIN 45 g 4 Active valACYclovir (VALTREX) 1000 MG TabletIndications:Co [...] Information Patient taking differently: 200 mcg Oral [id number], Reported on 03/28/2023 Venlafaxine HCl ER 150 [...] suspected opioid overdose. Seek immediate medical attention. [email or web address]?v=[email or web address] 0 Active Prochlorperazine Maleate 5 MG Oral [...] as of this encounter (statuses as of 06/04/2023) Active Problems Problem Noted Date Recurrent major [...] as of this encounter (statuses as of 06/04/2023) Resolved Problems Problem Noted Date Resolved Date [...] as of this encounter (statuses as of 06/04/2023) Immunizations Name Administration Dates Next Due H1N1 [...] encounter Miscellaneous Notes * Addendum Note - Hilda Calvert DO - 06/04/2023 7:58 AM EDTAddended by: HILDA CALVERT on: 06/04/2023 07:58 AM Modules accepted: Orders [...] were not included. Hilda Calvert, DO Darling Zelaya, RN; [facility] Nurse Pool/Class34 minutes ago (2:44 [...] to pass this onto the nurses at [facility] yesterday and is waiting a call back from her packing shed supervisor. Checked with Dianne and she has [...] she had an EGD in November through [facility] with small/tracevarices. Denies any history of banding. We will need a record of this. If small she needs repeat in1 year. -Fluid status: based on today's physical exam, the pt. has 3+ pedal edema and very large ascites almost tense. She is on bumex 3 mg BID and aldactone [address] [facility] ER increased her from the 1 [...] She has been in and out of [facility] several times but tells me they have not changed her meds since her last OV. * Telephone Encounter - Dianne Bloom RN - 06/02/2023 3:05 PM EDT Pt calling to report that she has been experiencing abdominal pain and joint cramping during her albumin infusions at [facility] pre and post paracentesis. She states [...] know what the full name of her packing shed supervisor was, only that it was Bonnie, and that there are only 3-4 regular nurses (she beingone of them as a Traveler.) I explained the complaint and she replied, " I highly doubt that anyone would run Albumin in 20 minutes or less but I will pass it on." I left another message for Raymond Ferro RN packing shed supervisor to see if she can help me contact a packing shed supervisor to discuss. documented in this encounter Plan of Treatment Upcoming Encounters Date Type Specialty Care Team Description 06/13/2023 Office Visit Gastroenterology Hilda Calvert, [address] [place] [address] 08/12/2023 Laboratory Laboratory [place] [id number] [facility] [place] [address] 08/19/2023 Office Visit Hematology Oncology Sandra Evans MD [address] [facility] [place] [address] Health Maintenance Due Date Last Done Comments [...] 5:16 PM 10/17/2007 5:01 PM Care Teams Almond Blancher Hand Relationship Specialty Start Date End Date Endy Stanley, DO [address] [place] [address] [place] [address] PCP - General Family Medicine 07/13/18 documented as of this encounter
--- OUTSIDE RECORDS SUMMARY | 2023-07-05 19:34 | External Medical Summary ---
Author Name UNSPECIFIED Address Unknown Organization [facility] History of Encounters Reason for Assessment: Transferred to an inpatient facility - patient not discharged from agency Inpatient Facility where the patient been admitted: Hospital
--- OUTSIDE RECORDS SUMMARY | 2023-07-05 19:34 | External Medical Summary | Summary of Care ---
Author Name Unknown Organization [facility] Address [address] [facility] [place] [address] Phone [phone] Care Team Providers Care Philatelic Consultant Name Role Phone Lizeth, Endy Mora DO Primary Care Provider [phone] [phone] Encounter Details Date Type Department Care Team Description 05/21/2023 Result Scan Unspecified Department Hilda Calvert DO [address] [place] [address] <No scans attached> Allergies Active Allergy Reactions Severity Noted Date Comments Codeine Hives 07/18/2012 Metformin Abdominal pain Low 03/30/2013 documented as of this encounter (statuses as of 05/22/2023) Medications Medication Sig Dispensed Refills Start Date [...] cold sores 4 Tab 11 05/03/2016 Active Cyanocobalamin (B-12 MICROLOZENGE) 500 MCG SUBLIndications:Baria tric surgery status Place 500 mcg under the tongue daily. 30 Tab 5 01/28/2017 Active Additional Information Patient not taking.Reported on 11/09/2019 furosemide (LASIX) 20 MG Tablet Take 1 Tab by mouth daily as needed (edema). 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 take with 75mg tablet to total 275mg dose 30 Tab 10 11/10/2017 Active Additional Information Patient taking differently: 200 mcg Oral [id number], Reported on 03/28/2023 Venlafaxine HCl ER 150 MG Oral Capsule Extended Release 24 Hour Take 75 mg by mouth in the morning. Do [...] MOUTH DAILY 90 Cap 3 03/04/2018 Active Additional Information Patient not taking.Reported on 03/28/2023 promethazine (PHENERGAN) 25 MG Tablet Take 1 Tab by mouth every 6 hours as needed for Nausea. or vomiting 12 Tab 0 03/06/2018 Active Additional Information Patient not taking.Reported on 11/09/2019 lactulose (CONSTULOSE) 10 GM/15ML solutionIndications:N LISET (nonalcoholic steatohepatitis),Bili krista cirrhosis (HCC) Take 30 ml by mouth three times a day 2700 mL 5 04/01/2018 Active Additional Information Patient not taking.Reported on 03/28/2023 XIFAXAN 550 MG Tablet Take 1 Tab [...] Polyethylene Glycol 3350 17 GM Oral Packet (Miralax) Take 1 Packet by mouth 2 times a day as needed. 0 Active Potassium Chloride 20 MEQ Oral Packet Take 20 mEq by mouth in the morning and 20 mEq before bedtime. 0 Active Ipratropium-Albuterol 20-100 MCG/ACT Inhalation Aerosol Solution (Combivent Respimat) Inhale 1 Puff by mouth in the morning and 1 Puff at noon and 1 Puff in the evening and 1 Puff before bedtime. 0 Active Metoprolol Tartrate 12.5 MG OR Tablet Take 0.5 Tablets by mouth in the morning. 0 Active Naloxone HCl 4 MG/0.1ML Nasal Liquid (Narcan Nasal) Administer 0.1 mL into nostril as needed. Administer 1 spray into 1 nostril for suspected opioid overdose. Seek immediate medical attention. [email or web address]?v=[email or web address] 0 Active Prochlorperazine Maleate 5 MG Oral Tablet (Compazine) Take 1 Tablet by mouth every 6 hours as needed for Nausea. 0 Active Sennosides-Docusate Sodium 8.6-50 MG Oral Tablet (Senna S) Take 1 Tablet by mouth daily as needed for Constipation. 0 Active Magnesium 400 MG Oral Capsule Take 1 Capsule by mouth in the morning and 1 Capsule before bedtime. 0 Active Bisacodyl 10 MG Rectal Suppository (Dulcolax) Administer 1 Suppository into the rectum daily as needed. 0 Active oxyCODONE HCl 10 MG/0.5ML Oral Concentrate Take 15 mL by mouth every 6 hours. 0 Active hydrOXYzine HCl 10 MG Oral Tablet (Atarax) Take 1 Tablet by mouth 3 times a day as needed. 0 Active Pantoprazole Sodium 40 MG Oral Tablet Delayed Release (Protonix) Take 1 Tablet by mouth in the morning. 0 Active Docusate Sodium 100 MG Oral Capsule (Colace) Take 1 Capsule by mouth every evening. 0 Active rOPINIRole HCl 4 MG Oral Tablet (Requip) Take 1 Tablet by mouth at bedtime as needed. 0 Active Cholecalciferol 125 MCG (5000 UT) Oral Tablet Take by mouth. 0 Active Enoxaparin Sodium 100 MG/ML Injection Solution Prefilled Syringe (Lovenox) Inject 100 mg under the skin in the morning and 100 mg before bedtime. 0 Active Bumetanide 1 MG Oral TabletIndications:Cari er cirrhosis secondary to nonalcoholic steatohepatitis (GILLESPIE) (HCC) Take 1 Tablet by mouth in the morning and 1 Tablet before bedtime. 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 180 Tablet 1 03/28/2023 Active Clopidogrel Bisulfate 75 MG Oral Tablet (pLAVix) Take 1 Tablet by mouth in the morning. 0 01/10/2023 Active Albumin Human 25 % Intravenous Solution [...] each unit 100 mL 0 03/31/2023 Active documented as of this encounter (statuses as of 05/22/2023) Active Problems Problem Noted Date Recurrent major [...] as of this encounter (statuses as of 05/22/2023) Resolved Problems Problem Noted Date Resolved Date [...] of inactive term Absence of menstruation 04/15/2005 09/27/20 05 Dysplasia of cervix (uteri) 04/24/200404/26 Overview: LG 9/, Leep 12/26 and 07/30 ICD-10 update of [...] as of this encounter (statuses as of 05/22/2023) Immunizations Name Administration Dates Next Due H1N1 2009 Influenza, IM 06/28/2009 Seasonal Influenza, Split, I IV3, With Preserve, Inj 05/25/2016,06/08/2015,05/25/2012, 0 09 TDAP (age 11 and older)(Adacel) 05/18/20 09,09/12/2008(Deferred: [...] Encounters Date Type Specialty Care Team Description 05/23/2023 Office Visit Gastroenterology Hilda Calvert DO [address] [place] [address] 08/12/2023 Laboratory [facility] [address] [place] [address] [place] [address] 08/19/2023 Office Visit Hematology Oncology Sandra Evans MD [address] [place] [address] Health Maintenance Due Date Last Done Comments [...] 03/05/2017, 040 09/2014, 03/31/2013, Additional history exists Influenza Vaccine (FLU shot) (#1) 2023 07/04/2020, 09/20/2019, 06/19/2018, Additional history exists HbA1c 07/06/2023 01/03/2023, 06/0 08/2021, 10/26/2020, Additional history exists GFR 04/15/2024 04/15/2023, 03/25, 04/07/2023, Additional history exists Hepatitis C Screening Completed 07/03/2009, 009 COVID-19 Vaccine Completed 07/02/2022, 08/2021, 07/24/2021, Additional history exists GARDASIL-HPV IMMUNIZATION SERIES Aged Out No longer eligible based on patient's age to complete this topic MENINGOCOCCAL (MENACTRA/MENVEO) Aged Out No longer eligible based on patient's age to complete this topic documented as of this encounter Medical Devices Not on filedocumented as of this encounter Procedures Procedure Name Priority Date/Time Associated Diagnosis Comments RADIOLOGY SCANNED RESULT 05/21/2023 documented in this encounter Results * RADIOLOGY SCANNED RESULT (05/21/2023) 05/21/2023 Hilda Calvert DO DIAGNOSTIC RAD IOLOGY SERVICES documented in this encounter Advance Directives Latest Code Status on File Code Status Date Activated Date Inactivated Comments Full Code 10/15/2007 5:16 PM 10/17/2007 5:01 PM Care Teams Philatelic Consultant Relationship Specialty Start Date End Date Endy Stanley DO [address] [place] [address] PCP - General Family Medicine 07/13/18 documented as of this encounter
--- OUTSIDE RECORDS SUMMARY | 2023-07-05 19:34 | External Medical Summary | Summary of Care ---
Author Name Unknown Organization [facility] Address [address] [facility] [place] [address] Phone [phone] Care Team Providers Care Geoscience Technician Name Role Phone Lizeth Endy Mora DO Primary Care Provider +1 [phone] Reason for Visit * Reason Onset Date Comments Advice 06/02/2023 Encounter Details Date Type Department Care Team Description 06/02/2023 Telephone Gastroenterology, [facility] [address] [place] [address] Hilda Calvert DO [address] [place] [address] Advice Allergies Active Allergy Reactions Severity Noted [...] Information Patient taking differently: 200 mcg Oral [id number], Reported on 03/28/2023 Venlafaxine HCl ER 150 [...] suspected opioid overdose. Seek immediate medical attention. [email or web address]?v=[email or web address] 0 Active Prochlorperazine Maleate 5 MG Oral [...] to pass this onto the nurses at [facility] yesterday and is waiting a call back from her preparation supervisor. Checked with Dianne and she has [...] had an EGD in November through [facility] with small/tracevarices. Denies any history of banding. [...] know what the full name of her preparation supervisor was, only that it was Bonnie, and that there are only 3-4 regular nurses (she beingone of them as a Traveler.) I explained the complaint and she replied, " I highly doubt that anyone would run Albumin in 20 minutes or less but I will pass it on." I left another message for Raymond Ferro RN preparation supervisor to see if she can help me contact a preparation supervisor to discuss. documented in this encounter Plan of Treatment Upcoming Encounters Date Type Specialty Care Team Description 06/13/2023 Office Visit Gastroenterology Hilda Calvert, [address] [place] [address] 08/12/2023 Laboratory Laboratory [address] [address] 08/19/2023 Office Visit Hematology Oncology Sandra Evans MD [address] [place] [address] Health Maintenance Due Date Last Done Comments [...] 5:16 PM 10/17/2007 5:01 PM Care Teams Geoscience Technician Relationship Specialty Start Date End Date Endy Stanley, DO [address] [place] [address] [place] [address] PCP - General Family Medicine 07/13/18 documented as of this encounter
--- OUTSIDE RECORDS SUMMARY | 2023-07-05 19:34 | External Medical Summary | Summary of Care ---
Author Name Unknown Organization [facility] Address [address] [place] [address] Phone [phone] Care Team Providers Care Miniature Model Maker Name Role Phone Endy Stanley Primary Care Provider [phone] Reason for Referral * Ancillary Services (Within 10 days (routine)) - Authorized Specialty Diagnoses / Procedures Referred By Contact Referred To Contact Interventional Radiology / Radiology Diagnoses 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) Hilda Calvert DO [address] [place] [address] Referral ID Status Reason Start Date Expiration Date Visits Requested Visits Authorized [id number] Authorized Ancillary Services Required 05/23/2023 [id number] Question Answer Referral Priority Within 10 days (routine) Where Will The Procedure Be Performed? [facility] Comments Please enter the reason for consult: assess patient for TIPS candidacy. Requiring weekly paracentesis. Are outside images available?: no * Evaluate & Treat - Unlimited Visits (Within 10 days (routine)) - Authorized Specialty Diagnoses / Procedures Referred By Contac t Referred To Contact [facility] / Transplant Surgery Diagnoses 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) Hilda Calvert DO [address] [place] [address] Referral ID Status Reason Start Date Expiration Date Visits Requested Visits Authorized [id number] Authorized Specialty Services Required 05/23/2023 [id number] Question Answer Referral Priority Within 10 days (routine) What is the patient being referred for? Solid Organ Transplant Evaluation Please indicate which organ(s) Liver Reason for Visit * Reason Comments Liver Disease Encounter Details Date Type Department Care Team Description 05/23/2023 Office Visit Hepatology, [facility] [address] [place] [address] Hilda Calvert DO [address] [place] [address] 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)* Allergies Active Allergy Reactions Severity Noted Date Comments Codeine Hives 07/18/2012 Metformin Abdominal pain Low 03/30/2013 documented as of this encounter (statuses as of 05/23/2023) Medications Medication Sig Dispensed Refills Start Date End Date Status ONETOUCH ULTRASOFT LANCETS MISCIndications:Typ e II or unspecified type diabetes mellitus without mention of complication, uncontrolled use as directed 1 [address] 3 Active Additional Information Patient not taking.Reported on 03/28/2023 TRETINOIN 0.05 % EX CREAIndications:Oth er acne APPLY TO SKIN AT BEDTIME 30 MINUTES AFTER WASHING AND DRYING SKIN 45 g 11 4 Active valACYclovir (VALTREX) 1000 MG TabletIndications:C old sore Take 2 Tabs by mouth every 12 hours. 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 take with 75mg tablet to total 275mg dose 30 Tab 10 8 Active Additional Information Patient taking differently: 200 mcg Oral [id number], Reported on 03/28/2023 Venlafaxine HCl ER 150 MG Oral Capsule Extended Release 24 Hour Take 37.5 mg by mouth in the morning. Do not cut, crush, or chew.. 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 30 Tab 5 8 Active LINZESS 290 MCG Capsule TAKE 1 CAPSULE BY MOUTH DAILY 90 Cap 3 8 Active lactulose (CONSTULOSE) 10 GM/15ML solutionIndications :GILLESPIE (nonalcoholic steatohepatitis),Bi liary cirrhosis (HCC) Take 30 ml by mouth [...] times a day as needed. 0 Active Ipratropium-Albuter ol 20-100 MCG/ACT Inhalation Aerosol Solution Inhale 1 [...] suspected opioid overdose. Seek immediate medical attention. [email or web address] 0 Active Prochlorperazine Maleate 5 MG Oral [...] morning. 0 Active Bumetanide 1 MG Oral TabletIndications:L iver cirrhosis secondary to nonalcoholic steatohepatitis (GILLESPIE) (HCC) Take 1 Tablet by mouth in the morning and 1 Tablet before bedtime. 180 Tablet 1 3 Active Additional Information Patient taking differently: 3 mgOral BID (.AM/PM), Reported on 05/23/2023 Spironolactone 100 MG Oral Tablet (Aldactone)Indicati ons: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),Splenic [...] by mouth in the morning. 0 Active Cyanocobalamin (B-12 MICROLOZENGE) 500 MCG SUBLIndications:Bar iatric surgery status Place 500 mcg under the tongue daily. 30 Tab 5 7 023 Discontinued furosemide (LASIX) 20 MG Tablet Take 1 Tab by mouth daily as needed (edema). for fluid accumulation or weight gain 30 Tab 11 7 023 Discontinued promethazine (PHENERGAN) 25 MG Tablet Take 1 Tab by mouth every 6 hours as needed for Nausea. or vomiting 12 Tab 0 8 023 Discontinued Potassium Chloride 20 MEQ Oral Packet Take 20 mEq by mouth in the morning and 20 mEq before bedtime. 0 023 Discontinued Pantoprazole Sodium 40 MG Oral Tablet Delayed Release (Protonix) Take 1 Tablet by mouth in the morning. 0 023 Discontinued Clopidogrel Bisulfate 75 MG Oral Tablet (pLAVix) Take 1 Tablet by mouth in the morning. 0 3 023 Discontinued documented as of this encounter (statuses as of 05/23/2023) Active Problems Problem Noted Date Recurrent major [...] as of this encounter (statuses as of 05/23/2023) Resolved Problems Problem Noted Date Resolved Date [...] as of this encounter (statuses as of 05/23/2023) Immunizations Name Administration Dates Next Due H1N1 [...] Sign Reading Time Taken Comments Blood Pressure 138/68 05/23/2023 12:05 PM EDT Pulse 85 05/23/2023 12:05 PM EDT Temperature 36.6 C (97.9 F) 05/23/2023 1 2:05 PM EDT Respiratory Rate - - Oxygen Saturation - - Inhaled Oxygen Concentration - - Weight 99.2 kg (218 lb 12.8 oz) 023 12:05 PM EDT Height - - Body Mass Index 38.76 04/16/2023 2:57 PM EDT documented in this encounter Progress Notes * Hilda Calvert, - 05/23/2023 11:58 AM EDT Hepatology Clinic Note Date of appointment: 05/23/2023 Referred by: History of Present Illness: Niesha Gutiérrez is a 42 year old F with 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 She has other PMH notable for obesity with history of sleeve gastrectomy, thyroid cancer s/p thyroidectomy, multiple strokes and vertebral artery dissection on Plavix, HTN, HLD, DM2. She was just discharged today from [facility] in March. 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 She has been admitted multiple times as outlined below mainly for encephalopathy. She saw Dr. Evans from hematology here on 04/17 for the portal and splenic veinthrombosis. He had recommended Lovenox once daily. Admit -03/17 for hyperammonemia + encephalopathy. Started on xifaxan. Outpt GI 03/14/23. GI concerned for med compliance. Pending enrollment with hepatology in June. Per GI 03/05/23: Lactulose 30g TID, Xifaxan 550mg BID, Aldactone:lasix 100:40 for ascites (50 mg Aldactone twice daily, Lasix 80 mg twice daily (. Had paracentesis at that hospitalization 5 L withdrawn 03/06. Admitted 01/08 - 01/10/2023 for pain, lethargy, confusion 2/2 hepatic encephalopathy worsened with chronic opioid use and GI bleed. Switched from aspirin to Plavix during that admission. 02/04 - 02/09/2023: Confusion, falls, hepatic encephalopathy in the setting of UTI. Paracentesis of 2.[address] [facility] Admitted 02/14 - 02/17/2023 with altered mental status suspected due to hepatic encephalopathy with additional baclofen use and hyponatremia. Baclofen discontinued, mental state improved. Return to [facility] and was discharged home 03/01/2023 Admitted 03/04/2023 - 03/07/2023 for upper abdominal pain, back pain, poor p.o. intake and significant ascites. Admitted multiple times since March for Hepatic encephalopathy Admitted 05/07-05/14 for hepatic encephalopathy. Presented to [facility] for paracentesis and was found to be confused. She states 13 years ago was when she was diagnosed with cirrhosis after her gastric sleeve surgery.She states she didn't get a liver biopsy at that time but they could tell just by looking at the liver. She states she was then sent to [place] and underwent a liver biopsy and was told the sample wasn't enough to perform a reading. She states she then went to [place] and had a liver biopsy there and they told her on another liver biopsy she had done that she did indeed have liver cirrhosis. She states she has never drank alcohol before and was told this was from GILLESPIE. She then saw Dr. Cummings in 2017. She is currently on lactulose and rifaximin. Keeps getting admitted multiple times for hepatic encephalopathy. She states she is having 3 bowel movements/daily. She does state she sometimes doesn't take it because she gets diarrhea. She states her ascites is so bad she could probably get one every 2 days. She states she is gettinga weekly paracentesis of 9L. She has been non-compliant following a low salt diet. She states she is "trying to get there to be compliant" but not fully strict about this. She states the [facility] increased her bumex to 3 mg BID (from 1 the mg BID I had prescribed) due to her frequent admissions for ascites. She states she was following with Dr. Prado hepatology from [facility]. She states one time in the past she was told she may need a liver transplant but no one has discussed this with her recently. Her MELDwas 30 at one point but most recently on hospital discharge was 17. Per notes she has issues with medication non-compliance with prompts her to get admitted frequentlyfor HE exacerbations. She saw Dr. Evans from hematology since last visit for her portal vein and splenic vein thrombus and he recommended Lovenox once daily. Decompensations: Varices: yes Ascites: yes- requiring paracentesis frequently SBP: no HRS: no HE: yes HCC: no Screening: EGD: states last one 4 months ago [facility] with small EV Colonoscopy. none Liver imagin03/2023- CT abdomen from [facility]. No liver lesions. Review of systems: Positives in HPI. Negative for: Denies headache, lightheadedness, chest pain, cough, SOB, fever, chills, nausea, vomiting, heart burn, bloating, decreased appetite, early satiety, abdominal pain, diarrhea, fecal incontinence, constipation, rectal bleeding, weight loss, dysuria, frequency, incontinence, joint pain, back pain, weakness, fatigue, anxiety, depressed mood, difficulty sleeping. The remaining ROS reviewed and are negative. Past Medical History: Diagnosis Date Acute kidney [...] Thrombocytopenia (HCC) Varicella without complication age 8 Past Surgical History: Procedure Laterality Date DELIVERY 2005 w/ BTL COLPSCPY CERVIX W/LOOP ELECT 07/[address] [facility] no dysplasia DENTAL SURGERY PROCEDURE NEC wisdom teeth EGD, FLEXIBLE, DIAGNOSTIC N/A 06/18/2016 ESOPHAGOGASTRODUODENOSCOPY (EGD), FLEXIBLE, TRANSORAL, DIAGNOSTIC performed by Lavelle Cervantes DO at ENDOSCOPY [facility] [place] [place] EGD, W/ENDOSCOPIC US N/A 06/18/2016 ESOPHAGOGASTRODUODENOSCOPY (EGD), FLEXIBLE, TRANSORAL, ENDOSCOPIC ULTRASOUND performed by Lavelle Cervantes DO at ENDOSCOPY [facility] [place] [place] ENDOMETRIAL CRYOABLATION US GUIDED 07/30 Dr Ron GALLBLADDER/CHOLECYSTO W/CONT 10/23 patricia lap GASTRIC BAND PLACEMENT/PORT, LAPAROSCOPIC 07/2015 REDUCTION OF BREAST 1995 REMOVAL OF THYROID GLAND 10/15/07 THYROIDECTOMY COMPLETE performed by YANET ERAZO at OR [facility] [place] [place] REMOVAL OF TONSILS, UNDER AGE 12 REMOVE CERVIX CONE W/LOOP ELECTRODE 12/01/03 Dr Collazo, ecc LG, portio HG Family History Problem Relation Age of Onset [...] Grandfather (Paternal) Cancer Grandfather (Paternal) type unknown Current Outpatient Medications Medication Sig Dispense Refill TRETINOIN 0.05 % EX CREA APPLY TO SKIN AT BEDTIME 30 MINUTES AFTER WASHING AND DRYING SKIN 45 g 11 valACYclovir (VALTREX) 1000 MG Tablet Take 2 Tabs by mouth every 12 hours. For 1 day for cold sores4 Tab 11 SYNTHROID 200 MCG Tablet take one tablet by mouth at least 30 mins prior to breakfast or other meds. take with 75mg tablet to total 275mg dose (Patient taking differently: Take 1 Tablet by mouth daily first thing in the morning.) 30 Tab 10 Venlafaxine HCl ER 150 MG Oral Capsule Extended Release 24 Hour Take 37.5 mg by mouth in the morning. Do not cut, crush, or chew.. 30 Cap 5 SYNTHROID 75 MCG Tablet TAKE 1 TABLET BY MOUTH ONCE DAILY AT LEAST 30 MINUTES BEFORE BREAKFAST OR OTHER MEDS (275 MCG TOTAL DAILY DOSE). 30 Tab 5 LINZESS 290 MCG Capsule TAKE 1 CAPSULE BY MOUTH DAILY 90 Cap 3 lactulose (CONSTULOSE) 10 GM/15ML solution Take 30 ml by mouth three times a day 2700 mL 5 XIFAXAN 550 MG Tablet Take 1 Tab by mouth 2 times a day. 60 Tab 2 linagliptin (TRADJENTA) 5 MG Tablet Take 1 Tablet by mouth in the morning. famotidine (PEPCID) 20 MG Tablet Take 1 Tablet by mouth in the morning and 1 Tablet before bedtime. Clobetasol Propionate 0.05 % External Solution apply to the scalp 1-2 times daily as needed 50 mL 2 Ondansetron HCl 8 MG Oral Tablet (Zofran) Take by mouth every 8 hours as needed for Nausea. Polyethylene Glycol 3350 17 GM Oral Packet Take 1 Packet by mouth 2 times a day as needed. Ipratropium-Albuterol 20-100 MCG/ACT Inhalation Aerosol Solution Inhale 1 Puff by mouth in the morning and 1 Puff at noon and 1 Puff in the evening and 1 Puff before bedtime. Metoprolol Tartrate 12.5 MG OR Tablet Take 0.5 Tablets by mouth in the morning. Naloxone HCl 4 MG/0.1ML Nasal Liquid Administer 0.1 mL into nostril as needed. Administer 1 spray into 1 nostril for suspected opioid overdose. Seek immediate medical attention. [email or web address]://[email or web address].com/[email or web address] Prochlorperazine Maleate 5 MG Oral Tablet (Compazine) Take 1 Tablet by mouth every 6 hours as needed for Nausea. Sennosides-Docusate Sodium 8.6-50 MG Oral Tablet Take 1 Tablet by mouth daily as needed for Constipation. Magnesium 400 MG Oral Capsule Take 1 Capsule by mouth in the morning and 1 Capsule before bedtime. Bisacodyl 10 MG Rectal Suppository Administer 1 Suppository into the rectum daily as needed. oxyCODONE HCl 10 MG/0.5ML Oral Concentrate Take 15 mL by mouth every 6 hours. hydrOXYzine HCl 10 MG Oral Tablet (Atarax) Take 1 Tablet by mouth 3 times a day as needed. Docusate Sodium 100 MG Oral Capsule (Colace) Take 1 Capsule by mouth every evening. rOPINIRole HCl 4 MG Oral Tablet (Requip) Take 1 Tablet by mouth at bedtime as needed. Cholecalciferol 125 MCG (5000 UT) Oral Tablet Take by mouth. Enoxaparin Sodium 100 MG/ML Injection Solution Prefilled Syringe Inject 100 mg under the skin in the morning. Bumetanide 1 MG Oral Tablet Take 1 Tablet by mouth in the morning and 1 Tablet before bedtime. (Patient taking differently: Take 3 Tablets by mouth in the morning and 3 Tablets before bedtime.) 180 Tablet 1 Spironolactone 100 MG Oral Tablet (Aldactone) Take 1 Tablet by mouth in the morning and 1 Tablet before bedtime. 180 Tablet 1 Albumin Human 25 % Intravenous Solution If [...] minutes for each unit 100 mL 0 Omeprazole 40 MG Oral Capsule Delayed Release (PriLOSEC) Take 1 Capsule by mouth in the morning. ONETOUCH ULTRASOFT LANCETS MISC use as directed (Patient not taking: Reported on 03/28/2023) 1 Box 11 Lactulose 20 GM Oral Packet (Kristalose) Take 1.5 Packets by mouth in the morning and 1.5 Packets at noon and 1.5 Packets in the evening. Goal BM=3-4 times daily. Escitalopram Oxalate 5 MG Oral Tablet (Lexapro) Take 1 Tablet by mouth in the morning. No current facility-administered medications for this visit. Review of patient's allergies indicates: Allergen Reactions Codeine Hives Metformin Abdominal pain Physical Exam: vitals: BP 138/68 | Pulse 85 | Temp 36.6 C (97.9 F) | Wt 99.2 kg (218 lb 12.8 oz) | BMI 38.76 kg/m | BSA 2.1 m GENERAL: Chronically ill appearing. Very slow to talk. No asterixis on exam. Notable sarcopenia with some temporal muscle wasting. SKIN: No rashes, ulcers, jaundice. Multiple spider angiomas over chest wall. HEENT: Normocephalic, sclera anicteric NECK: Supple LUNGS: Clear to auscultation bilaterally, no respiratory distress or accessory muscles used. HEART: Regular rate & rhythm, no murmurs ABDOMEN: Large ascites, tense, multiple bandages over abdomen from leaking paracentesis sites EXTREMITIES: No palmar erythema, 4+ lower extremity edema. NEURO: No asterixis present on exam. Recent Labs: Reviewed MELD 3.0: 17 at 04/11/2023 9:24 AM Calculated from: Serum Creatinine: 1.0 mg/dL at 04/11/2023 9:24 AM Serum Sodium: 134 mmol/L at 04/11/2023 9:24 AM Total Bilirubin: 1.7 mg/dL at 04/11/2023 9:24 AM Serum Albumin: 2.8 g/dL at 04/11/2023 9:24 AM INR(ratio): 1.6 at 04/11/2023 9:24 AM Age at listing (hypothetical): 42 years Sex: Female at 04/11/2023 9:24 AM Recent Imaging Studies: Reviewed Liver doppler US 05/09/2023 [facility]: IMPRESSION: 1. No flow was shown within the main portal vein at the hilum. The vessel is likely occluded. 2. Hepatofugal flow as suggested above the portosplenic confluence, and there is likely nonocclusive thrombus within the splenic vein. 3. No flow was clearly shown within the intrahepatic right or left lobe portal veins. 4. The hepatic artery is patent, as are the hepatic veins. 5. Cirrhotic liver morphology and ascites. CT abd/pelvis 03/26/2023 [facility]: IMPRESSION: 1. The liver is cirrhotic in morphology and heterogeneous in attenuation. 2. There is nonocclusive thrombus within the main portal vein, the portosplenic confluence, and thesplenic vein. Thrombus in the splenic vein has significantly increased from prior studies. 3. Marked splenomegaly, a moderate volume of abdominopelvic ascites, recanalization of the periumbilical vein, upper abdominal varices, and perirectal varices indicate portal hypertension. 4. No acute infectious or inflammatory findings are identified and there is no evidence of solid organ injury in the abdomen or pelvis. 5. Additional findings as above. Recent Endoscopic Procedures: Reviewed EGD 05/2016: Impression: - Normal esophagus. - A sleeve gastrectomy was found, characterized by healthy appearing mucosa. - Erythematous mucosa in the antrum. - Normal examined duodenum. - No specimens collected. EUS 2016: Impression: - There was diffuse abnormal echotexture in the left lobe of the liver and in the right lobe of the liver. This was characterized by a lobulated appearance. This can be seen in early cirrhosis Fine needle biopsy performed. - There was no sign of significant pathology in the entire pancreas. - There was no sign of significant pathology in the common bile duct. - There was no sign of significant pathology in the ampulla. Assessment and plan: Niesha Gutiérrez is a 42 year old F with history of decompensated GILLESPIE cirrhosis c/b HE, ascites, varices, and portal and splenic vein thrombosis here today to establish care. She has other PMH notable for obesity with history of sleeve gastrectomy, thyroid cancer s/p thyroidectomy, multiple strokes and vertebral artery dissection, HTN, HLD, DM2. -Liver disease severity. Pt.'s last MELD was 17. We will get MELD labs today. -Variceal screening: she reports she had an EGD in November through [facility] with small/tracevarices. Denies any history of banding. We will need a record of this. If small she needs repeat in1 year. -Fluid status: based on today's physical exam, the pt. has 3+ pedal edema and very large ascites almost tense. She is on bumex 3 mg BID and aldactone 100 mg BID. [facility] ER increased her from the 1 mg BID of bumex I had prescribed to 3 mg BID. Will decrease down to 2 mg BID. I strongly encouraged her to follow a low sodium diet no more than 2 grams/daily. She admits she has not been compliant following a low salt diet. She thought she could have 2 grams per meal not daily. She states she now understands. She would not be a good TIPS candidate as she is frequently admitted for HE exacerbations and this would worsen that. She is requesting an evaluation as she wants twice weekly paracentesis which I explained that if she is taking her diuretics and following a low salt diet she should not needparacentesis more than once weekly. Will place IR referral but I have strong concerns with her HE. She has been admitted over 15 times in 3 months for HE in the setting of medication non-compliance. She is also on chronic narcotic (unclear reason) and multiple medications which are worsening her encephalopathy (oxycodone and atarax). I STRONGLY recommend that she be weaned off all narcotics. -Hepatic encephalopathy: based on today's examination, the pt. does not have asterixis. Continue lactulose and rifaximin and titrate for 3-4 soft bowel movements/daily. Can use Zinc supplement 220 mgdaily. High protein snack before bedtime. She is on oxycodone at home for chronic pain but this can worsen/preciptiate HE and I highly encourage her to wean off this. -Renal function: pt.'s most recent SCr was normal. We will get another BMP and monitor her renal function periodically. -HCC screening. Pt.'s last liver imaging study was done 03/2023. Pt will need HCC screening every 6 months with imaging in conjunction with an AFP. -Avoid liver toxins including over the counter herbal supplements. May take Acetaminophen up to 2 grams a day. Avoid NSAIDS due to increased risk of GI bleeding and fluid retention. Avoid all alcohol. Patient encouraged to avoid benzodiazepines and opiate pain medications due to risk of precipitating HE. -Transplant evaluation: Discussed with patient that we will start the transplant evaluation given her decompensations and frequent hospitalizations. Her MELD is 17 but she is very decompensated getting admitted at least 4x monthly with HE and ascites. Will place transplant referral today but her best bet may be to investigate living donor given her low MELD. Will also place referral to [facility] to assess for living donor. Her MELD does not reflect how sick she truly is. 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 Recent increase in splenic vein thrombus. Continue Lovenox daily as outlined by hematology. While sometimes these are not treated and followed, given that she is a potential transplant candidate in the future and untreated advancement of thrombus is with increased risk of bleeding due to portal pressure increase do agree with anticoagulation at this time. Recommend Lovenox twice daily as therapeutic option, studies with good data for efficacy and recommend use out to 1 year. Can also be heldaround paracentesis as needed patient is at risk of bleeding. She did not want to continue BID so agreed with Dr. Evans to use once daily. -Debility/sarcopenia: boost/ensure BID -Follow up in 1 month Hilda Calvert DO Gastroenterology and Hepatology I spent a total of 50 minutes on the date of service in review of patient's record, and previously obtained information in person and appropriate medical visit, discussion and education of plan, withpatient and/or caregiver, placing orders for tests/referral/procedures as medically necessary and documentation of pertinent clinical information in patient's medical records for their visit today. documented in this encounter Nursing Notes * Niru Elkins RN - 05/23/2023 12:03 PM EDT Pt c/o paracentesis site leaking. Last para was wed. Was recently in the hospital got IV lasix, blood transfusion. Pt has para wed and "by it's already filling up." Bumex dose was increased to 3 mg BID by ER doctor. Patient was instructed to not get up on the exam table/exam chair until directed and assisted by their provider; patient is to remain seated in the chair/ wheelchair/ exam table/ exam chair for fall prevention and safety reasons. Patient is aware to have assistance to step down off exam table/exam chair with personnel. Patient voiced full comprehension of instructions. documented in this encounter Plan of Treatment Upcoming Encounters Date Type Specialty Care Team Description 08/12/2023 Laboratory Laboratory [address] [address] 08/19/2023 Office Visit Hematology Oncology Sandra Evans MD [address] [place] [address] Scheduled Orders Name Type Priority Associated Diagnoses Orde r Schedule PT INR Lab Routine 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) Ordered: 05/23/2023 CBC WITH WBC DIFFERENTIAL Lab Routine 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) Ordered: 05/23/2023 BASIC METABOLIC PANEL Lab Routine 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) Ordered: 05/23/2023 HEPATIC FUNCTION PANEL Lab Routine 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) Ordered: 05/23/2023 Scheduled Referrals Name Type Priority Associated Diagnoses Orde r Schedule TRANSPLANT SURGERY REFERRAL OP Referral Within 10 days (routine) 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) Ordered: 05/23/2023 INTERVENTIONAL RADIOLOGY REFERRAL OP Referral Within 10 days (routine) 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) Ordered: 05/23/2023 Health Maintenance Due Date Last Done Comments [...] 05/14/2017, 0 11/15/2015, 12/23/2014 TSH 05/21/2018 05/21/2017, 042 02/2017, 09/30/2016, Additional history exists DTaP,Tdap,and Td Vaccines (2 - Td or Tdap) 05/18/2019 05/18/2009 B-12 08/19/2019 08/19/2018 Mammogram 2020 Lipid Panel 03/05/2022 03/05/2017, 04/0 09/2014, 03/31/2013, Additional history exists HbA1c 07/06/2023 01/03/2023, 060 08/2021, 10/26/2020, Additional history exists GFR 04/15/2024 04/15/2023, 03/25, 04/07/2023, Additional history exists Hepatitis C Screening Completed 07/03/2009, 009 COVID-19 Vaccine Completed 07/02/2022, 08/2021, 07/24/2021, Additional history exists Influenza Vaccine (FLU shot) Completed , 07/04/2020, [...] 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)- Primary documented in this encounter Advance Directives Latest Code Status on File Code Status Date Activated Date Inactivated Comments Full Code 10/15/2007 5:16 PM 10/17/2007 5:01 PM Care Teams Miniature Model Maker Relationship Specialty Start Date End Date Endy Stanley, DO [address] [place] [address] [place] [id number] PCP - General Family Medicine 07/13/18 documented as of this encounter
--- OUTSIDE RECORDS SUMMARY | 2023-07-05 19:34 | External Medical Summary | Summary of Care ---
Author Name Unknown Organization [facility] Address [address] [facility] [place] [address] Phone [phone] Care Team Providers Care Traffic Incident Management Manager Name Role Phone Lizeth Endy Mora DO Primary Care Provider [phone] Encounter Details Date Type Department Care Team Description 05/29/2023 Orders Only Gastroenterology, [facility] [address] [place] [address] Hilda Calvert DO [address] [place] [address] 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) Allergies Active Allergy Reactions Severity Noted Date Comments Codeine Hives 07/18/2012 Metformin Abdominal pain Low 03/30/2013 documented as of this encounter (statuses as of 05/29/2023) Medications Medication Sig Dispensed Refills Start Date [...] Information Patient taking differently: 200 mcg Oral [id number], Reported on 03/28/2023 Venlafaxine HCl ER 150 [...] suspected opioid overdose. Seek immediate medical attention. [email or web address] Active Prochlorperazine Maleate 5 MG Oral [...] as of this encounter (statuses as of 05/29/2023) Active Problems Problem Noted Date Recurrent major [...] as of this encounter (statuses as of 05/29/2023) Resolved Problems Problem Noted Date Resolved Date [...] as of this encounter (statuses as of 05/29/2023) Immunizations Name Administration Dates Next Due H1N1 [...] Gastroenterology Hilda Calvert DO [address] [place] [address] 08/12/2023 Laboratory Laboratory [facility] [address] [place] [address] 08/19/2023 Office Visit Hematology Oncology Sandra Evans MD [address] [place] [address] Health Maintenance Due Date Last Done Comments [...] 05/14/2017, 0 11/15/2015, 12/23/2014 TSH 05/21/2018 05/21/2017, 2 02/2017, 09/30/2016, Additional history exists DTaP,Tdap,and Td [...] Date/Time Associated Diagnosis Comments IR PARACENTESIS Routine 05/28/2023 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) CHEMISTRY-OUTSIDE Routine 05/28/2023 documented in this encounter Results * (ABNORMAL) CHEMISTRY-OUTSIDE (05/28/2023) Not all results display below - see scan for full detail OUTSIDE LAB (SEE SCANNED REPORT) Comment:SCAN INCLUDES - PT, INR, PTT, CBCD CREATININE-OUTSID E LAB OUTSIDE LAB (SEE SCANNED [...] LAB OUTSIDE LAB (SEE SCANNED REPORT) HEMOGLOBIN, Q3P-KLMMQOD LAB OUTSIDE LAB (SEE SCANNED REPORT) PHOSPHORUS-OUTSID E LAB OUTSIDE LAB (SEE SCANNED REPORT) PTH-OUTSIDE LAB OUTS GRECIA LAB (SEE SCANNED REPORT) MICROALBUMIN RATIO-OUTSIDE LAB OUTSIDE LA B (SEE SCANNED REPORT) PROTEIN, UA-OUTSIDE LAB OUTSIDE LAB (SEE SCANNED REPORT) HEMOGLOBIN-OUTSID E LAB 8.7(A) 12.0 - 16.0 G/DL OUTSIDE LAB (SEE SCANNED REPORT) 05/28/2023 Hilda Calvert DO LABORATORY OUTSIDE LAB (SEE SCANNED REPORT) * IR PARACENTESIS (05/28/2023) Anatomical Region Laterality Modality Any Other 05/28/2023 Hilda Calvert DO RAD SPECIAL [place] OCEDURES documented in this encounter Visit Diagnoses Diagnosis 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) documented in this encounter Advance Directives Latest Code Status on File Code Status Date Activated Date Inactivated Comments Full Code 10/15/2007 5:16 PM 10/17/2007 5:01 PM Care Teams Traffic Incident Management Manager Relationship Specialty Start Date End Date Endy Stanley DO [address] [place] [phone] PCP - General Family Medicine 07/13/18 documented as of this encounter
--- OUTSIDE RECORDS SUMMARY | 2023-07-05 19:34 | External Medical Summary | Summary of Care ---
Author Name Unknown Organization [facility] Address [address] [facility] [place] [address] Phone [phone] Care Team Providers Care Communications Associate Name Role Phone Endy Stanley DO Primary Care Provider [phone] Reason for Referral * Precert (Within 10 days (routine)) - Authorized Specialty Diagnoses / Procedures Referred By Contac t Referred To Contact Radiology Diagnoses 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) Procedures IR PARACENTESIS Silva Pacheco DO [address] [place] [address] Referral ID Status Reason Start Date Expiration Date V isits Requested Visits Authorized [id number] Authorized 04/04/2023 24 24 Reason for Visit * Reason Onset Date Comments Scheduling 03/28/2023 Encounter Details Date Type Department Care Team Description 03/28/2023 Refill Gastroenterology, [facility] [address] [place] [address] Silva Pacheco DO [address] [place] [address] 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)* Allergies Active Allergy Reactions Severity Noted Date Comments Codeine Hives 07/18/2012 Metformin Abdominal pain Low 03/30/2013 documented as of this encounter (statuses as of 05/14/2023) Medications Medication Sig Dispensed Refills Start Date [...] Information Patient taking differently: 200 mcg Oral [id number], Reported on 03/28/2023 Venlafaxine HCl ER 150 [...] suspected opioid overdose. Seek immediate medical attention. [email or web address] 0 Active Prochlorperazine Maleate 5 MG Oral [...] as of this encounter (statuses as of 05/14/2023) Active Problems Problem Noted Date Recurrent major [...] as of this encounter (statuses as of 05/14/2023) Resolved Problems Problem Noted Date Resolved Date [...] as of this encounter (statuses as of 05/14/2023) Immunizations Name Administration Dates Next Due H1N1 [...] encounter Miscellaneous Notes * Telephone Encounter - Forrest Couch RN - 04/04/2023 9:20 AM EDT Orders signed and faxed to [facility]. * Telephone Encounter - Silva Pacheco DO - 03/31/2023 1:54 PM EDT Signed Prescriptions: Disp Refills Albumin Human 25 % Intravenous Solution 100 mL 0 Sig: If paracentesis yields a total volume of [...] 30 to 60 minutes for each unit Authorizing Provider: SILVA PACHECO * Telephone Encounter - Forrest Couch RN - 03/31/2023 8:10 AM EDTPending Prescriptions: Disp Refills Albumin Human 25 % Intravenous Solution 100 mL 0 Sig: If paracentesis yields a total volume of [...] 30 to 60 minutes for each unit * Telephone Encounter - Forrest Couch RN - 03/31/2023 8:09 AM EDT Sent medical records request to [facility] for Neurology consultations with a provider on [facility] office. Standing orders for CBC, PT/INR, APTT, IR Paracentesis, and Albumin orders pended. * Telephone Encounter - Dianne Bloom RN - 03/28/2023 3:40 PM EDT Pt was seen in office as a hospital discharge for HE in the setting of [place] cirrhosis. 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 Med Req completed based on hospital discharge med list and neither anticoagulant was listed. Per Dr. Pacheco, patient and her verbalized that she is on Plavix 75 mg daily, but they are unable to recall who has prescribed this. I called Dr. Stanley office and spoke to a nurse, Yumiko. She and I reviewed the patients chart and she was unable to locate any script for clopidogrel derived from the [facility] system. Records identified from a OV on 10/16/[address] Correa who suggested Plavix, but no history of ordering this. There is mention of a [facility] Neurologist in her chart. I called [facility] in [place] to identify fills for this patient-- they have a 30 day script that was filled on 01/10/[address] Kimberley Ta ([facility] Hospitalist) I called [facility] pharmacy in [place], they have no history of this med. I called to follow up with the patient and her . Per Augie, he things she has seen a neurologist on [address]in [place]. I ran through the [facility] Neurology team and he thinks it may be JUNAID Hand. Will need to call Friday for Records. Dr. Pacheco- orders pended. Will be faxed on Friday by nursing staff to schedule weekly paracentesis' GI Nurses- please print and fax orders and call to schedule 8 sessions of weekly paracentesis- any MORNING only. Please call Augie with the dates and times. documented in this encounter Plan of Treatment Upcoming Encounters Date Type Specialty Care Team Description 05/23/2023 Office Visit Gastroenterology Silva Pacheco DO [address] [place] [address] 08/12/2023 Laboratory [facility] [place] [address] [facility] [address] 08/19/2023 Office Visit Hematology Oncology Nathan, Sandra Mcqueen MD [address] [place] [address] Scheduled Orders Name Type Priority Associated Diagnoses Orde r Schedule IR PARACENTESIS Medical Imaging Routine 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) Every Week for 24 Occurrences starting 04/04/2023 until 09/28/2023, 1 completed APTT Lab Routine 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) Every Week for 24 Occurrences starting 04/04/2023 until 03/31/2024, 2 completed PT INR Lab Routine 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) Every Week for 24 Occurrences starting 04/04/2023 until 03/31/2024, 1 completed CBC Lab Routine 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) Every Week for 24 Occurrences starting 04/04/2023 until 03/31/2024, 1 completed Health Maintenance Due Date Last Done Comments [...] 03/05/2022 03/05/2017, 0409/2014, 03/31/2013, Additional history exists Influenza Vaccine (FLU [...] Not on filedocumented as of this encounter Results * IR PARACENTESIS (04/23/2023) Anatomical Region Laterality Modality Any Other 04/23/2023 Silva Pacheco DO RAD SPECIAL [place] OCEDURES * (ABNORMAL) CBC (04/15/2023 9:24 AM EDT) WBC 8.93 4.00 - 10.80 K/uL 04/15/2023 1:54 PM EDT LAB[facility]ORY [facility] RBC 3.40 3.85 - 5.15 M/uL 04/15/2023 1:54 PM EDT LAB[facility]ORY [facility] HGB 9.8(L) 12.0 - 15.3 g/dL 04/15/2023 1:54 PM EDT [facility] HCT 31.9(L) 36.0 - 45.2 % 04/15/2023 1:54 PM EDT LAB[facility] MCV 93.8 81.5 - 97.5 fL 04/15/2023 1:54 PM EDT LAB[facility] MCH 28.8 27.0 - 34.0 pg 04/15/2023 1:54 PM EDT LAB[facility]ORY [facility] MCHC 30.7 32.0 - 36.0 g/dL 04/15/2023 1:54 PM EDT LAB[facility] RDW 21.0 11.5 - 15.5 % 04/15/2023 1:54 PM EDT LAB[facility] PLT 132(L) 140 - 400 K/uL 04/15/2023 1:54 PM EDT [facility] MPV 9.2 6.6 - 11.1 fL 04/15/2023 1:54 PM EDT [facility] nRBCs 0 <=0 /100 WBCs 04/15/2023 1:54 PM EDT [facility] Blood Venous blood specimen / Unknown Venipuncture / Unknown 04/15/2023 9:24 AM EDT 04/15/2023 9:24 AM EDT Silva Pacheco DO LAB BLOOD LORIE RAAD [facility] Organization Address City/State/ZIP Co de Phone Number LAB[facility]ATORY [facility] [address] [place] [address] * (ABNORMAL) PT INR (04/15/2023 9:24 AM EDT) Prothrombin Time 19.8(H) 11.6 - 15.2 seconds 04/15/2023 1:37 PM EDT LABORATORY [facility] INR 1.7(H) 0.8 - 1.2 04/15/2023 1:37 PM EDT LABORATORY [facility] Blood Venous blood specimen / Unknown Venipuncture / Unknown 04/15/2023 9:24 AM EDT 04/15/2023 9:24 AM EDT Narrative LABORATORY [facility] - 04/15/2023 1:37 PM EDT Warfarin Therapy INR: 2.0-3.0 conventional anticoagulation INR: 2.5-3.5 high intensity anticoagulation Silva [employer] LAB BLOOD ARELIS SHANKAR Performing Organization Address [facility] Co de Phone Number LABORATORY [facility] [address] [place] [address] * (ABNORMAL) APTT (04/15/2023 9:24 AM EDT) aPTT 46(H) 21 - 38 seconds 04/15/2023 1:39 PM EDT LABORATORY [facility] Blood Venous blood specimen / Unknown Venipuncture / Unknown 04/15/2023 9:24 AM EDT 04/15/2023 9:24 AM EDT Narrative LABORATORY [facility] - 04/15/2023 1:39 PM EDT Anticoagulation may affect testing. Refer to [employer] Test Catalog for a list of effects. Silva Pacheco LAB BLOOD ORDNaomi SHANKAR Performing Organization Address City/[facility]/ZIP Co de Phone Number LABORATORY [facility] [address] [place] [address] * (ABNORMAL) APTT (04/11/2023 9:25 AM EDT) aPTT 40(H) 21 - 38 seconds 04/11/2023 3:19 PM EDT LABORATORY [facility] Blood Venous blood specimen / Unknown Venipuncture / Unknown 04/11/2023 9:25 AM EDT 04/11/2023 9:25 AM EDT Narrative LABORATORY [facility] - 04/11/2023 3:19 PM EDT Anticoagulation may affect testing. Refer to [employer] [facility] Test Catalog for a list of effects. Silva Pacheco DO LAB BLOOD ORDE RAAD LABORATORY [facility] [address] [facility] [place] [address] documented in this encounter Visit Diagnoses Diagnosis 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)- Primary documented in this encounter Advance Directives Latest Code Status on File Code Status Date Activated Date Inactivated Comments Full Code 10/15/2007 5:16 PM 10/17/2007 5:01 PM Care Teams Communications Associate Relationship Specialty Start Date End Date Endy Stanley DO [address] [facility] [address] [place] [address] PCP - General Family Medicine 07/13/18 documented as of this encounter
--- OUTSIDE RECORDS SUMMARY | 2023-07-06 07:16 | External Medical Summary | Summary of Care ---
Author Name Unknown Organization [facility] Address [address] [place] [address] Phone [phone] Care Team Providers Care Ground Services Instructor Name Role Phone LizethEndy Primary Care Provider [phone] Reason for Referral * Precert (Within 10 days (routine)) - Pending Review Specialty Diagnoses / Procedures Referred By Rich de la fuente Referred To Contact [facility] Diagnoses [place]E (nonalcoholic steatohepatitis) Other cirrhosis of liver (HCC) Hilda Calvert DO [address] [place] [address] Referral ID Status Reason Start Date Expiration Date Visits Requested Visits Authorized [id number] Pending Review Specialty Services Required 07/01/[phone] Question Answer Referral Priority Within 10 days (routine) Where should this appointment be scheduled? Jessica Encounter Details Date Type Department Care Team (Late st Contact Info) Description 07/01/2023 [facility], [facility] [address] [place], [place] [id number] Juliana Heredia, RN [place]E (nonalcoholic steatohepatitis)*; Other cirrhosis of liver (HCC) Allergies Active Allergy Reactions Criticality Noted Date Comments Codeine Hives 07/18/2012 Metformin Abdominal pain Low 03/30/2013 documented as of this encounter (statuses as of 07/01/2023) Medications Medication Sig Dispensed Refills Start Date [...] suspected opioid overdose. Seek immediate medical attention. [email or web address] 0 Active Prochlorperazine Maleate 5 MG Oral [...] before bedtime. 180 Tablet 1 06/04/2023 Active Pantoprazole Sodium 40 MG Oral Tablet Delayed Release (Protonix) Take 1 Tablet by mouth in the morning and 1 Tablet before bedtime. 0 06/10/2023 Active Klor-Con 20 MEQ Oral Packet Take 20 mEq by mouth in the morning and 20 mEq before bedtime. 0 06/22/2023 Active Levothyroxine Sodium 300 MCG Oral Tablet Take 1 Tablet by mouth in the morning. 0 06/02/2023 Active Midodrine HCl 2.5 MG Oral Tablet [...] and 1 Tablet before bedtime. 0 Active documented as of this encounter (statuses as of 07/01/2023) Active Problems Problem Noted Date Diagnosed Date [...] as of this encounter (statuses as of 07/01/2023) Resolved Problems Problem Noted Date Diagnosed Date [...] as of this encounter (statuses as of 07/01/2023) Immunizations Name Administration Dates Next Due H1N1 [...] 07/03/2023 11:00 AM EST Office Visit Hepatology, [facility] [address] [facility] [place] [id number] Hilda Calvert DO [address] [place] [address] 08/12/2023 12:30 PM EST Laboratory [facility], [place] [address] [facility] [phone] [place] [address] [place] [facility] [place] [address] 08/19/2023 12:30 PM EST Office Visit Hematology/Oncology Joshua Martinez [place] [address] [facility] [place] [address] Sandra Evans MD [address] [facility] [place] [address] Scheduled Referrals Name Type Priority Associated Diagnoses Orde r Schedule [facility]PL[facility] [employer]AN[facility]ARANCE REFERRAL OP Referral Within 10 days (routine) [place] (nonalcoholic steatohepatitis) Other cirrhosis of liver (HCC) Ordered: 07/01/2023 Health Maintenance Due Date Last Done Comments [...] as of this encounter Visit Diagnoses Diagnosis G[place]ESPIE (nonalcoholic steatohepatitis)- Primary Other chronic nonalcoholic liver disease Other cirrhosis of liver (HCC) documented in this encounter Advance Directives Latest Code Status on File Code Status Date Activated Date Inactivated Comments Full Code 10/15/2007 5:16 PM 10/17/2007 5:01 PM Care Teams Ground Services Instructor Relationship Specialty Start Date End Date Endy Stanley DO [address] [place] [address] [place] [address] PCP - General Family Medicine 07/13/18 documented as of this encounter
== END 2023-07-04 16:05 | disposition home health service (06) ==
LOC: ED 09:22 → EDINP 09:22 → SUATTDRO 12:26 → EDINP 07-02 17:17 → 2N 07-02 17:52
DX: I81 Portal vein thrombosis; D50.9 Iron deficiency anemia, unspecified; K76.82 Hepatic encephalopathy; N17.9 Acute kidney failure, unspecified; E87.6 Hypokalemia; Z86.73 Personal history of transient ischemic attack (TIA), and cerebral infarction without residual deficits; K29.70 Gastritis, unspecified, without bleeding; E11.9 Type 2 diabetes mellitus without complications; Z68.41 Body mass index [BMI] 40.0-44.9, adult; D61.818 Other pancytopenia; Z79.84 Long term (current) use of oral hypoglycemic drugs; E03.9 Hypothyroidism, unspecified; R18.8 Other ascites; F11.20 Opioid dependence, uncomplicated; E87.1 Hypo-osmolality and hyponatremia; R94.31 Abnormal electrocardiogram [ECG] [EKG]; K75.81 Nonalcoholic steatohepatitis (NASH); Z88.6 Allergy status to analgesic agent; E66.01 Morbid (severe) obesity due to excess calories; Z79.899 Other long term (current) drug therapy; K74.60 Unspecified cirrhosis of liver

== ENCOUNTER 2023-07-21 17:11 | Inpatient (IN) ==
--- NOTE | 2023-07-21 17:30 | ED Triage Note ---
Date of Service July 21, 2023 History of Present Illness This patient was briefly evaluated while in triage. An abbreviated physical exam was performed. This patient is a 42-year-old Female who presents to the ED for evaluation of []. admitted 07/01-07/04 confusion acutely today SO thinks her ammonia level is high due to Thanksgiving diet and not taking lactulose scheduled paracentesis tomorrow Physical Exam GENERAL: Lethargic 42-year-old female seated in a wheelchair. CARDIOVASCULAR: RRR RESPIRATORY: CTA ABDOMEN: BS x 4. moderately distended Initial orders for labs and / or imaging were placed and patient was placed in the waiting area until a bed is available. Please see further documentation for the full ED course.
[2023-07-21] MEDS ORDERED: SODIUM CHLORIDE 0.9% 2,000 ML IV ONE (17:48)
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
--- NOTE | 2023-07-21 18:15 | XRay Report ---
XR chest 1V portable CLINICAL HISTORY: Sepsis. COMPARISON STUDY: Chest CT March 26, 2023. Chest radiograph July 01, 2023. FINDINGS: Postoperative findings within the spine are incidentally noted. There are low lung volumes. No consolidation is identified. Cardiomediastinal silhouette is stable. Elevation of the right hemid iaphragm is again noted. There is no evidence for overt pulmonary edema. Pleural vascular congestion has improved. IMPRESSION: 1. Low lung volumes. 2. No consolidation to suggest pneumonia. 3. Interval improvement in pulmonary vascular congestion. ACT 112: Negative or not required by law. Electronically signed by: Guero Garcia M.D. 07/21/2023 6:14 PM
[2023-07-21 19:02] LABS: Basophils # (auto) 0.05 K/uL (0.00-0.20); Basophils % (auto) 0.9 %; Eosinophils # (auto) 0.19 K/uL (0.00-0.50); Eosinophils % (auto) 3.3 %; Hematocrit (blood only) 24.3 % (37.0-47.0); Hemoglobin 7.5 g/dl (12.0-16.0); Immature Granulocytes # (auto) 0.03 K/uL (0.01-0.20); Immature Granulocytes % (auto) 0.5 %; Lymphocytes # (auto) 1.05 K/uL (1.20-3.40); Lymphocytes % (auto) 18.3 %; Mean Corpuscular Hemoglobin 26.9 pg (25.0-34.0); Mean Corpuscular Hgb Conc 30.9 g/dL (32.0-36.0); Mean Corpuscular Volume 87.1 fL (80.0-100.0); Mean Platelet Volume 10.4 fL (9.4-12.4); Monocytes # (auto) 0.88 K/uL (0.11-0.59); Monocytes % (auto) 15.4 %; Neutrophils # (auto) 3.53 K/uL (1.40-6.50); Neutrophils % (auto) 61.6 %; Platelet Count 86 K/uL (130-400); RDW Coefficient of Variation 18.1 % (11.5-14.5); RDW Standard Deviation 58.3 fL (36.4-46.3); Red Blood Count 2.79 M/uL (4.20-5.40); White Blood Count 5.73 K/ul (4.8-10.8)
[2023-07-21 19:08] LABS: HCO3 VBG 27 mmol/L; Oxygen Saturation VBG 92.6 %; PCO2 VBG 45 mmHg (38-50); PO2 VBG 66 mmHg; pH VBG 7.38 (7.36-7.41)
[2023-07-21 19:20] LABS: Alanine Aminotransferase 35 U/L (7-52); Albumin Level 3.1 gm/dl (3.4-5.0); Alkaline Phosphatase 54 U/L (34-104); Anion Gap 5 (3-11); Aspartate Aminotransferase 91 U/L (13-39); BUN Creatinine Ratio 17.3 (10-20); Bilirubin Direct 0.5 mg/dl (0-0.2); Bilirubin,Total 1.3 mg/dl (0.2-1.0); Blood Urea Nitrogen 44 mg/dl (6-23); Calcium 8.5 mg/dl (8.6-10.3); Carbon Dioxide 27 mmol/L (21-32); Chloride 97 mmol/L (98-107); Est GFR (African American) 26.1 ml/min; Est GFR (Non-African American) 22.5 ml/min; Glucose 100 mg/dl (70-99(Fasting)); Lipase 45 U/L (11-82); Magnesium 2.2 mg/dl (1.7-2.4); Phosphorus 5.8 mg/dl (2.5-4.9); Potassium 5.3 mmol/L (3.5-5.1); Sodium 129 mmol/L (136-145); Total Protein 5.1 gm/dl (6.0-8.3)
[2023-07-21 19:24] LABS: Polychromasia 1+
[2023-07-21 19:26] LABS: Troponin I High Sensitivity 3.9 pg/ml (0-14)
[2023-07-21 19:35] LABS: Thyroid Stimulating Hormone 11.315 uIu/ml (0.300-4.500)
[2023-07-21 19:36] LABS: INR 1.4 (0.9-1.1); Partial Thromboplastin Ratio 0.9; Partial Thromboplastin Time 25.1 Seconds (21.0-31.0); Prothrombin Time 14.6 Seconds (9.0-12.0)
[2023-07-21] MEDS ORDERED: LACTULOSE SYRUP 30 GM/45 ML UDP PO STA (19:41)
--- NOTE | 2023-07-21 19:58 | CT Scan Report ---
Exam(s): CT HEAD Without Contrast EXAM: CT Head Without Intravenous Contrast CLINICAL HISTORY: Reason for exam: confusion. TECHNIQUE: Axial computed tomography images of the head/brain without intravenous contrast. CTDI is 36.18 mGy and DLP is 546.36 mGy-cm. Automated exposure control was utilized for the study. A dose lowering technique was utilized adhering to the principles of ALARA. COMPARISON: No relevant prior studies available. FINDINGS: Brain: Unremarkable. No hemorrhage. No significant white matter disease. No edema. Ventricles: Unremarkable. No ventriculomegaly. Bones/joints: Unremarkable. No acute fracture. Soft tissues: Unremarkable. Sinuses: Unremarkable as visualized. No acute sinusitis. Mastoid air cells: Unremarkable as visualized. No mastoid effusion. IMPRESSION: Normal head/brain CT. Electronically signed by: Alessandro Lucas MD 07/21/23 19:57 PM
[2023-07-21 20:09] LABS: T4 Free Thyroxine 1.19 ng/dl (0.61-1.60)
--- OUTSIDE RECORDS SUMMARY | 2023-07-21 23:37 | External Medical Summary | Summary of Care ---
Author Name Unknown Organization [facility] Address [address] [place] [address] Phone [phone] Care Team Providers Care Tour Driver Name Role Phone Endy Stanley DO Primary Care Provider [phone] Reason for Visit * Reason Onset Date Comments Pre-Transplant Evaluation 07/11/2023 Encounter Details Date Type Department Care Team (Late st Contact Info) Description 07/11/2023 Telephone Transplant Clinic, [address] [id number] Juliana Heredia RN Pre-Transplant Evaluation Allergies Active Allergy Reactions Criticality Noted Date Comments Codeine Hives 07/18/2012 Metformin Abdominal pain Low 03/30/2013 documented as of this encounter (statuses as of 07/16/2023) Medications Medication Sig Dispensed Refills Start Date [...] and 1 Puff before bedtime. 0 Active Naloxone HCl 4 MG/0.1ML Nasal Liquid Administer 0.1 mL into nostril as needed. Administer 1 spray into 1 nostril for suspected opioid overdose. Seek immediate medical attention. [email or web address] 0 Active Prochlorperazine Maleate 5 MG Oral [...] Capsule (Colace) Take 1 Capsule by mouth in the morning and 1 Capsule before bedtime. 0 Active rOPINIRole HCl 4 MG Oral [...] before bedtime. 180 Tablet 1 03/28/2023 Active Omeprazole 40 MG Oral Capsule Delayed [...] and 1 Tablet before bedtime. 0 Active Albumin Human 25 % Intravenous SolutionIndications:Mimi tee cirrhosis secondary to nonalcoholic steatohepatitis ([place]) (HCC) 25Gm before and after paracentesis. May run at 100ml/hr 100 mL 0 07/11/2023 Active documented as of this encounter (statuses as of 07/16/2023) Active Problems Problem Noted Date Diagnosed Date [...] as of this encounter (statuses as of 07/16/2023) Resolved Problems Problem Noted Date Diagnosed Date [...] as of this encounter (statuses as of 07/16/2023) Immunizations Name Administration Dates Next Due H1N1 [...] encounter Miscellaneous Notes * Telephone Encounter - Juana Brewster OSA - 07/11/2023 2:17 PM EST Completed screening documented in this encounter Plan of Treatment Upcoming Encounters Date Type Department Care Team (Late st Contact Info) Description 07/28/2023 8:45 AM EST Office Visit Hematology/[facility] [address] [facility] [place] [address] Sandra Evans MD [address] [facility] [place] [address] 08/12/2023 12:30 PM EST [facility] [place] [address] [facility] [id number] [place], Laboratory [address] [place] [address] 09/09/2023 8:00 AM EST Office Visit Hepatology, [facility] [address] [facility] [place] [address] Hilda Calvret, DO [address] [place] [id number] Health Maintenance Due Date Last Done Comments Hepatitis B (1 of 3 - 3-dose series) 1980 Diabetic Eye Exam 1998 HPV/Co-Test 2010 Cervical [...] exists Hepatitis C Screening Completed 07/03/2009, 009 Pneumococcal Vaccine: Pediatrics (0 to 5 Years) and At-Risk Patients (6 to 64 Years) Completed 06/04/2022, 07/04/2020 Influenza Vaccine (FLU shot) Completed , 07/04/2020, [...] 5:16 PM 10/17/2007 5:01 PM Care Teams Tour Driver Relationship Specialty Start Date End Date Endy Stanley DO [address] [facility] [address] [place] [address] PCP - General Family Medicine 07/13/18 documented as of this encounter
--- OUTSIDE RECORDS SUMMARY | 2023-07-21 23:37 | External Medical Summary | Summary of Care ---
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) Procedures IR PARACENTESIS Hilda Pacheco DO [address] [place] [address] Referral ID Status Reason Start Date Expiration Date V isits Requested Visits Authorized [id number] Authorized 07/11/2023 24 24 Reason for Visit * Reason Onset Date Comments Follow Up 07/09/2023 Encounter Details Date Type Department Care Team (Late st Contact Info) Description 07/09/2023 Telephone Gastroenterology, Health system [address] [place] [address] Hilda Pacheco DO [address] [place] [address] Follow Up Allergies Active Allergy Reactions Criticality Noted Date Comments Codeine Hives 07/18/2012 Metformin Abdominal pain Low 03/30/2013 documented as of this encounter (statuses as of 07/11/2023) Medications Medication Sig Dispensed Refills Start Date [...] suspected opioid overdose. Seek immediate medical attention. 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 May run at 100ml/hr 100 mL 0 3 Active Albumin Human 25 % Intravenous [...] for each unit 100 mL 0 3 023 Discontinued documented as of this encounter (statuses as of 07/11/2023) Active Problems Problem Noted Date Diagnosed Date [...] as of this encounter (statuses as of 07/11/2023) Resolved Problems Problem Noted Date Diagnosed Date [...] as of this encounter (statuses as of 07/11/2023) Immunizations Name Administration Dates Next Due H1N1 [...] encounter Miscellaneous Notes * Telephone Encounter - Lisa Westfall RN - 07/11/2023 4:27 PM EST Just an FYI * Telephone Encounter - Cassie Shelton RN - 07/11/2023 4:04 PM EST Patient returned call. Clarified that she is no longer following with [facility] since Kimberley Hess left. She states that she was admitted at [facility] a lot of April and most of May. She has several blood transfusions and multiple paracentesis. Her lovenox has been held multiple times, she is off it more than she is on it, as she had a EGD 2 weeks ago and needed to hold it and needs to hold it the night before each paracentesis. One of her admissions, her platelet count was 50 so the hospitalist told her to hold it and to follow up with us to recheck labs before restarting (she doesn't rememberhow long ago this was). The last time she was in, the hospitalist asked her what dose of lovenox she was on. She didn't remember. They asked her if it was 150mg once a day and she didn't know. Advised her that since so much has been going on, patient should see Dr Evans to review and advise on continuation of lovenox. Patient is agreeable. Scheduling: - please contact [facility] to get all discharge summaries over the last 3 months - please contact patient to move up appt with Dr Evans. She will need labs "CBCd, CMP" prior to appt Thanks! * Telephone Encounter - Cassie Shelton RN - 07/11/2023 1:[address] Evans's office note 04/16/23: "She has nonocclusive portal vein thrombosis. I think at this point the best option is to continue Lovenox once a day instead of twice a day as she has a history of varices, thrombocytopenia and anemia. With full anticoagulation she will be at significant risk for bleeding and other complication. Discussed with the patient and in detail about the diagnosis and reviewed all the availableblood test result with them. After detailed discussion she agrees to change the Lovenox to once a day. I will also request the lab to add iron studies in the blood test done yesterday." Patient has not spoken to our office since this visit. Unsure when she was told to hold lovenox. Attempted to call patient- left message for return call to clarify what is going on with her lovenox. Of note, patient follows primarily with [facility]- was sent to [facility] for 2nd hematology opinion as she did not want to continue lovenox and wanted to try to switch to a oral medication instead. * Telephone Encounter - Lisa Westfall RN - 07/11/2023 12:33 PM EST Faxed orders to [facility] main fax and IR fax. Called patient. Reports she will call to schedule herself. Already has the number and able to schedule her own paracentesis. Reports she will go to the ER If she has any worsening symptoms such as shortness of breath. Reports she currently is not on a blood thinners. Reports she is awaiting to hearback from Dr. Rider office regarding if she is to be on them again. FYI? * Addendum Note - Hilda Pacheco DO - 07/11/2023 12:28 PM ESTAddended by: HILDA PACHECO on: 07/11/2023 12:28 PM Modules accepted: Orders * Telephone Encounter - Lisa Westfall RN - 07/11/2023 11:59 AM EST Pt calling back in . Made aware we will be faxing orders once singed. Agreeable to ER for worseningshortness of breath. TT sent. * Addendum Note - Lisa Westfall RN - 07/11/2023 9:58 AM ESTAddended by: LISA WESTFALL on: 07/11/2023 09:58 AM Modules accepted: Orders * Telephone Encounter - Lisa Westfall RN - 07/11/2023 9:56 AM EST Images from the original note were not included. "Hilda Pacheco, DO to [facility] Nurse Pool/Class 07/11/23 9:43 AM She is not a candidate for any IR procedures. Can adjust paracentesis orders to twice weekly 10 L max." Pended please review / sign. Then we can fax to [facility]. The albumin I pended is for 25G before and after paracentesis . I was not sure if you wanted this or a different albumin order. * Telephone Encounter - Shobha Wen LPN - 07/11/2023 9:24 AM EST Pt calling in asking about her paracentesis. Pt asking about whether Dr fitzpatrick had reached out to Dr Pacheco regarding her paracentesis or not. Pt stating that Dr fitzpatrick said she was going to reach out to her. Also stating that she was told ,if she can handle it , that should not be a problem. Dr Pacheco, I don't see any documentation of this( as I told the pt) Please advise. * Telephone Encounter - Lisa Westfall RN - 07/09/2023 2:19 PM EST Hilda Pacheco DO to [facility] Nurse Pool/Class 07/09/23 11:23 AM I am going to discuss with IR today from [facility] if she is a candidate for any procedures to reduce the ascites though she is very high risk for these. If they dont think she's a candidate and she needs them twice weekly we may do that but I want to discuss with them first. Hilda Pacheco, DO." Pt calling in . I relayed this message to her. She was tearful would like me to send a messafge to Dr. Pacheco to see is she has an answer for her yet. Would like her to know she has had multiple liters removed her last few paracentesis. She is aware Dr. Pacheco has access to those records * Telephone Encounter - Lisa Westfall RN - 07/09/2023 10:55 AM EST I called IR to clarify our orders for paracentesis are only for once a week. These orders were previously faxed. She should not be scheduled for anything other than what is ordered. Reports they willask scheduling to call and cancel her appt for this week as she has already had a paracentesis thisweek. I let them know they should reach out to their scheduling department to make sure they are aware they can not schedule her more often than what is ordered. I called [facility] to see if I could get the dates of all her last recent paracentesis. I can not see them in our system. Dr Kannan Pacheco FYI. I am not sure if you can see all the last dates. * Telephone Encounter - Shobha Wen LPN - 07/09/2023 10:37 AM EST Received a call from IR at [facility]. This pt was giving them a hard time about paracentesis. Since pt giving them a hard time - nurse worried that we should get updated orders, stating that her para orders state to only have this once a week, however, Pt has been getting paracentesis 2x a week. The nurse is asking for updated orders stating 2 times a week , also asking for blood work, is thisto be every time before paracentesis ? Since pt getting 2x a week, should she get labs 2x a week orjust once a week? Currently getting prior to every paracentesis ( 2x a week) Please clarify and fax orders to [phone] Nurse number if need to call is : [phone]( back line) documented in this encounter Plan of Treatment Upcoming Encounters Date Type Department Care Team (Late st Contact Info) Description 07/15/2023 2:00 PM EST Office Visit Hepatology, Health [facility] [address] 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) Other, Please specify in Comments field for 24 Occurrences starting 07/11/2023 until 04/16/2024 PT INR Lab Routine 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) Other, Please specify in Comments field for 24 Occurrences starting 07/11/2023 until 07/11/2024 APTT Lab Routine 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
--- OUTSIDE RECORDS SUMMARY | 2023-07-21 23:37 | External Medical Summary | Summary of Care ---
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 Seek immediate medical attention. [email or web address]?[email or web address] 0 Active Prochlorperazine Maleate 5 MG Oral [...] morning. 0 Active Bumetanide 1 MG Oral TabletIndications:Crai er cirrhosis secondary to nonalcoholic steatohepatitis (GILLESPIE) [...] as of this encounter (statuses as of 07/18/2023) Active Problems Problem Noted Date Diagnosed Date [...] as of this encounter (statuses as of 07/18/2023) Resolved Problems Problem Noted Date Diagnosed Date [...] as of this encounter (statuses as of 07/18/2023) Immunizations Name Administration Dates Next Due H1N1 [...] 07/28/2023 8:45 AM EST Office Visit Hematology/Oncology [facility] [address] [place] [address] Sandra Evans MD [address] 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 [place] [address] [place] [address] PCP - General Family Medicine 07/13/18 documented as of this encounter
--- OUTSIDE RECORDS SUMMARY | 2023-07-21 23:37 | External Medical Summary | Summary of Care ---
Author Name Unknown Organization [facility] Address [address] [facility] [place] [address] Phone [phone] Care Team Providers Care Library Consultant Name Role Phone LizethEndy Morgan SUMNER Primary Care Provider [phone] Reason for Visit * Reason Onset Date Comments Fax 07/15/2023 Encounter Details Date Type Department Care Team (Late st Contact Info) Description 07/15/2023 Telephone Hepatology, [facility] [address] [place] [address] Hilda Calvert DO [address] [place] [address] Fax Allergies Active Allergy Reactions Criticality Noted Date Comments Codeine Hives 07/18/2012 Metformin Abdominal pain Low 03/30/2013 documented as of this encounter (statuses as of 07/15/2023) Medications Medication Sig Dispensed Refills Start Date [...] suspected opioid overdose. Seek immediate medical attention. [email or web address] 0 Active Prochlorperazine Maleate 5 MG Oral [...] as of this encounter (statuses as of 07/15/2023) Active Problems Problem Noted Date Diagnosed Date [...] as of this encounter (statuses as of 07/15/2023) Resolved Problems Problem Noted Date Diagnosed Date [...] as of this encounter (statuses as of 07/15/2023) Immunizations Name Administration Dates Next Due H1N1 [...] encounter Miscellaneous Notes * Telephone Encounter - Tanya Zamora OSA - 07/15/2023 2:51 PM EST Transplant referral faxed to [phone]. review coordinator is Awilda Blackman, her phone # is [phone]. documented in this encounter Plan of Treatment Upcoming Encounters Date Type Department Care Team (Late st Contact Info) Description 07/28/2023 8:45 AM EST Office Visit Hematology/Oncology [address] [place] [address] [place] [address] Sandra Evans MD [address] [place] [address] 08/12/2023 12:30 PM EST Laboratory [facility], [place] [address] [address] [facility] [address] [place] [address] [address] [facility] [place] [address] 09/09/2023 8:00 AM EST Office Visit Hepatology, [facility] [address] [place] [address] Hilda Calvert MillaDO [address] [place] [address] Health Maintenance Due Date Last Done Comments [...] 5:16 PM 10/17/2007 5:01 PM Care Teams Library Consultant Relationship Specialty Start Date End Date Endy [place] DO [address] [place] [address] [place] [address] PCP - General Family Medicine 07/13/18 documented as of this encounter
--- OUTSIDE RECORDS SUMMARY | 2023-07-21 23:37 | External Medical Summary | Summary of Care ---
Author Name Unknown Organization [facility] Address [address] [facility] [place] [address] Phone [phone] Care Team Providers Care Director Of Medical Staff Services Name Role Phone Lizeth Endy Morgan SUMNER Primary Care Provider [phone] Reason for Visit * Reason Comments Hospital Follow-Up Cirrhosis Encounter Details Date Type Department Care Team (Latest Contact Info) Description 07/15/2023 2:00 PM EST Office Visit Hepatology, [facility] [address] [place] [address] Hilda Calvert DO [address] [place] [address] 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)* Allergies Active Allergy Reactions Criticality Noted Date [...] 8 Active lactulose (CONSTULOSE) 10 GM/15ML solutionIndications :IGLLESPIE (nonalcoholic steatohepatitis),Bi liary cirrhosis (HCC) Take 30 [...] suspected opioid overdose. Seek immediate medical attention. [email or web address] [email or web address]/watch? [email or web address] 0 Active Prochlorperazine Maleate 5 MG Oral [...] at 100ml/hr 100 mL 0 3 Active Metoprolol Tartrate 12.5 MG OR Tablet Take 0.5 Tablets by mouth in the morning. 0 07/15/20 23 Discontinued documented as of this encounter (statuses [...] Date Smoking Tobacco: Never Smokeless Tobacco: Never Tobacco Cessation:Counseling Given: Not Answered Alcohol Use Standard Drinks/Week Comments Not Currently [...] Sign Reading Time Taken Comments Blood Pressure 116/58 07/15/2023 1:54 PM EST Pulse 88 07/15/2023 1:54 PM EST Temperature 36.6 C (97.9 F) 07/15/2023 1:54 PM ES T Respiratory Rate 18 07/15/2023 1:54 PM EST Oxygen Saturation 98% 07/15/2023 1:54 PM EST Inhaled Oxygen Concentration - - Weight 106.4 kg (234 lb 9.6 oz) 07/15/2023 1:54 PM EST Height - - Body Mass Index 41.56 04/16/2023 2:57 PM EDT documented in this encounter Progress Notes * Hilda Calvert DO - 07/15/2023 1:37 PM EST Hepatology Clinic Note Date of appointment: 07/15/2023 History of Present Illness: Niesha Gutiérrez is [...] DM2. She was just discharged today from [facility] in March. She was admitted for HE [...] Paracentesis of 2.2 L and discharged to [facility] Admitted 02/14 - 02/17/2023 with altered mental status suspected due to hepatic encephalopathy with additional baclofen use and hyponatremia. Baclofen discontinued, mental state improved. Return to [facility] and was discharged home 03/01/2023 Admitted 03/04/2023 - 03/07/2023 for upper abdominal pain, back pain, poor p.o. intake and significant ascites. Admitted multiple times since March for Hepatic encephalopathy Admitted 05/07-05/14 for hepatic encephalopathy. Presented to [facility] for paracentesis and was found to be confused. Admitted In May (06/05 and 06/15) for HE and volume overload Admitted 07/01-07/04 for HE. Went to paracentesis outpatient and found to be confused. She states 13 years ago was when she was diagnosed with cirrhosis after her gastric sleeve surgery.She states she didn't get a liver biopsy at that time but they could tell just by looking at the liver. She states she was then sent to [place] and underwent a liver biopsy and was told the sample wasn't enough to perform a reading. She states she then went to [place] and had a liver biopsy there and [...] doesn't take it because she gets diarrhea. she states today she doesn't always take her lactulose three times daily because her butt gets so sore so as long as its all liquid she "feels it enough." Encouraged again today to maintain goal of 3-4 bowel movements/daily. She states her ascites is so bad she could probably get one every 2 days. Currently prescribed a paracentesis twice weekly. On bumex 2 mg BID and aldactone 100 mg BID. She saw IR in [place] but given her multiple recurrent admissions for HE they felt she was a poor TIPS candidate and a Brent shunt was not a good idea and recommended increasing paracentesis from once to twice weekly. She has been non-compliant with low salt diet. She has a bag over her paracentesis site today ad its leaking 500 cc of serosanguinous fluid every 2 hours. She states this is normal for her and she is sutured every time she gets a paracentesis but it doesn't help with the leakage. Had 8.6L removed yesterday andis going back tomorrow. She states today she is still trying to work on the low sale diet and this has been hard but they are reading all the labels. Per notes she has issues with medication non-compliance with prompts her to get admitted frequentlyfor HE exacerbations. she is admitted at least 3-4 times monthly for HE or volume overload. She saw Dr. Evans from hematology since last visit for her portal vein and splenic vein thrombus and he recommended Lovenox once daily. she states she is not currently taking this because the hospital stopped it as she kept getting admitted so many times, platelets were low at 52, and she is getting paracentesis twice weekly. She has an upcoming appointment with him to discuss 07/28. Decompensations: Varices: yes Ascites: yes- requiring paracentesis frequently twice weekly SBP: no HRS: no HE: yes HCC: no Screening: EGD: states last one 4 months ago [facility] with small EV Colonoscopy. none Liver imagin03/2023- CT abdomen from [facility]. No liver lesions. Review of systems: Positives [...] W/LOOP ELECT 07/[address] [facility] no dysplasia DENTAL SURGERY PROCEDURE NEC wisdom teeth EGD, FLEXIBLE, DIAGNOSTIC N/A 06/18/2016 ESOPHAGOGASTRODUODENOSCOPY (EGD), FLEXIBLE, TRANSORAL, DIAGNOSTIC performed [place] Lavelle Cervantes [place] [facility] [place], W/ENDOSCOPIC US N/A 06/18/2016 ESOPHAGOGASTRODUODENOSCOPY (EGD), FLEXIBLE, TRANSORAL, ENDOSCOPIC ULTRASOUND performed by Lavelle Cervantes DO [place] [facility] [place] ENDOMETRIAL CRYOABLATION US GUIDED 07/30 Dr Ron GALLBLADDER/CHOLECYSTO W/CONT 10/23 patricia lap GASTRIC BAND PLACEMENT/PORT, LAPAROSCOPIC 07/2015 REDUCTION OF BREAST 1995 REMOVAL OF THYROID GLAND 10/15/07 THYROIDECTOMY COMPLETE performed by YANET ERAZO [place] [facility] [place] REMOVAL OF TONSILS, UNDER AGE 12 REMOVE [...] Current Outpatient Medications Medication Sig Dispense Refill valACYclovir (VALTREX) 1000 MG Tablet Take 2 Tabs by mouth every 12 hours. For 1 day for cold sores4 Tab 11 LINZESS 290 MCG Capsule TAKE 1 CAPSULE BY MOUTH DAILY 90 Cap 3 XIFAXAN 550 MG Tablet Take 1 Tab by mouth 2 times a day. 60 Tab 2 famotidine (PEPCID) 20 MG Tablet Take 1 Tablet by mouth in the morning and 1 Tablet before bedtime. Lactulose 20 GM Oral Packet (Kristalose) Take 1.5 Packets by mouth in the morning and 1.5 Packets at noon and 1.5 Packets in the evening. Goal BM=3-4 times daily. Ondansetron HCl 8 MG Oral Tablet (Zofran) Take by mouth every 8 hours as needed for Nausea. Ipratropium-Albuterol 20-100 MCG/ACT Inhalation Aerosol Solution Inhale 1 Puff by mouth in the morning and 1 Puff at noon and 1 Puff in the evening and 1 Puff before bedtime. Naloxone HCl 4 MG/0.1ML Nasal Liquid Administer 0.1 mL into nostril as needed. Administer 1 spray into 1 nostril for suspected opioid overdose. Seek immediate medical attention. https://[email or web address].[email or web address]/watch?v=[email or web address] Prochlorperazine Maleate 5 MG Oral Tablet (Compazine) Take 1 Tablet by mouth every 6 hours as needed for Nausea. Sennosides-Docusate Sodium 8.6-50 MG Oral Tablet Take 1 Tablet by mouth daily as needed for Constipation. Magnesium 400 MG Oral Capsule Take 1 Capsule by mouth in the morning and 1 Capsule before bedtime. oxyCODONE HCl 10 MG/0.5ML Oral Concentrate Take 15 mL by mouth every 6 hours. hydrOXYzine HCl 10 MG Oral Tablet (Atarax) Take 1 Tablet by mouth 3 times a day as needed. Docusate Sodium 100 MG Oral Capsule (Colace) Take 1 Capsule by mouth in the morning and 1 Capsule before bedtime. rOPINIRole HCl 4 MG Oral Tablet (Requip) Take 1 Tablet by mouth at bedtime as needed. Cholecalciferol 125 MCG (5000 UT) Oral Tablet Take by mouth. Spironolactone 100 MG Oral Tablet (Aldactone) Take 1 Tablet by mouth in the morning and 1 Tablet before bedtime. 180 Tablet 1 Omeprazole 40 MG Oral Capsule Delayed Release (PriLOSEC) Take 1 Capsule by mouth in the morning. Escitalopram Oxalate 5 MG Oral Tablet (Lexapro) Take 1 Tablet by mouth in the morning. Bumetanide 1 MG Oral Tablet Take 2 Tablets by mouth in the morning and 2 Tablets before bedtime. 180 Tablet 1 Pantoprazole Sodium 40 MG Oral Tablet Delayed Release (Protonix) Take 1 Tablet by mouth in the morning and 1 Tablet before bedtime. Klor-Con 20 MEQ Oral Packet Take 20 mEq by mouth in the morning and 20 mEq before bedtime. Levothyroxine Sodium 300 MCG Oral Tablet Take 1 Tablet by mouth in the morning. Midodrine HCl 2.5 MG Oral Tablet (Proamatine) Take 1 Tablet by mouth in the morning and 1 Tablet atnoon and 1 Tablet before bedtime. Tums Extra Strength 750 750 MG Oral Tablet Chewable (calcium CARBonate) Take 1 Tablet by mouth every 6 hours as needed for Heartburn. ALPRAZolam 1 MG Oral Tablet (xaNAX) Take 1 Tablet by mouth 2 times a day as needed for Anxiety. Acetaminophen 500 MG Oral Tablet (Tylenol) Take 1 Tablet by mouth every 6 hours as needed for Pain,Mild. Sucralfate 1 GM Oral Tablet (Carafate) Take 1 Tablet by mouth in the morning and 1 Tablet before bedtime. ONETOUCH ULTRASOFT LANCETS [facility] use as directed (Patient not taking: Reported on 03/28/2023) 1 Box 11 TRETINOIN 0.05 % EX CREA APPLY TO SKIN AT BEDTIME 30 MINUTES AFTER WASHING AND DRYING SKIN 45 g 11 Venlafaxine HCl ER 150 MG Oral Capsule Extended Release 24 Hour Take 37.5 mg by mouth in the morning. Do not cut, crush, or chew.. (Patient not taking: Reported on 06/23/2023) 30 Cap 5 lactulose (CONSTULOSE) 10 GM/15ML solution Take 30 ml by mouth three times a day 2700 mL 5 linagliptin (TRADJENTA) 5 MG Tablet Take 1 Tablet by mouth in the morning. (Patient not taking: Reported on 07/15/2023) Clobetasol Propionate 0.05 % External Solution apply to the scalp 1-2 times daily as needed 50 mL 2 Polyethylene Glycol 3350 17 GM Oral Packet Take 1 Packet by mouth 2 times a day as needed. (Patientnot taking: Reported on 06/23/2023) Bisacodyl 10 MG Rectal Suppository Administer 1 Suppository into the rectum daily as needed. Enoxaparin Sodium 100 MG/ML Injection Solution Prefilled Syringe Inject 100 mg under the skin in the morning. (Patient not taking: Reported on 07/15/2023) Albumin Human 25 % Intravenous Solution 25Gm before and after paracentesis. May run at 100ml/hr 100 mL 0 No current facility-administered medications for this visit. Review of patient's allergies indicates: Allergen Reactions Codeine Hives Metformin Abdominal pain Physical Exam: vitals: BP 116/58 | Pulse 88 | Temp 36.6 C (97.9 F) | Resp 18 | Wt 106.4 kg (234 lb 9.6 oz) | SpO2 98% | BMI 41.56 kg/m | BSA 2.17 m GENERAL: Chronically ill appearing. Slow to talk but AAOx3. No asterixis on exam. Notable sarcopenia with some temporal muscle wasting. SKIN: No rashes, ulcers, jaundice. Multiple spider angiomas over chest wall. HEENT: Normocephalic, sclera anicteric NECK: Supple LUNGS: Clear to auscultation bilaterally, no respiratory distress or accessory muscles used. HEART: Regular rate & rhythm, no murmurs ABDOMEN: Large ascites, tense, 2 ostomy bags over leaking paracentesis sites. 1 bag has 500 cc of serosanguinous fluid in it and the other 30 cc of yellow ascites fluid. EXTREMITIES: No palmar erythema, 4+ lower extremity [...] Imaging Studies: Reviewed Liver doppler US 05/09/2023 [facility]: IMPRESSION: 1. No flow was shown within [...] liver morphology and ascites. CT abd/pelvis 03/26/2023 [facility]: IMPRESSION: 1. The liver is cirrhotic in [...] she had an EGD in November through [facility] with small/tracevarices. Denies any history of banding. We will need a record of this. If small she needs repeat in1 year. -Fluid status: based on today's physical exam, the pt. has 3+ pedal edema and very large ascites almost tense. She is on bumex 2 mg BID and aldactone 100 mg BID. I strongly encouraged her to follow alow sodium diet no more than 2 grams/daily. She was seen by IR and felt to be a very poor candidatefor TIPS given recurrent admissions for HE. Currently getting paracentesis twice weekly. She has been admitted countless times for HE in the setting of medication non- compliance. She is also on chronic narcotics (unclear reason) and multiple medications which are worsening her encephalopathy (oxycodone, xanax, and atarax). I STRONGLY recommend that she [...] highly encourage her to wean off this. Also encourage to wean off Xanaxgiven recurrent admissions for HE. -Renal function: pt.'s most recent SCr was [...] least 4x monthly with HE and ascites. Transplant referral to [facility] placed last visit but her best bet may be to investigate living donor given her low MELD. Will also place referral to [facility] to assess for living donor. Her [...] with Dr. Evans to use once daily. She states she is not currently taking this because the hospital stopped it as she kept getting admitted so many times, platelets were low at 52, and she is getting paracentesis twice weekly. She has an upcoming appointment with him to discuss 07/28. -Debility/sarcopenia: boost/ensure BID -Follow up in 2 months Hilda Calvert DO Gastroenterology and Hepatology I [...] documented in this encounter Nursing Notes * Imani Bravo RN - 07/15/2023 2:04 PM EST Hospital follow up visit. Last Paracentesis was yesterday. She states that she has an ostomy bag over site and it is leaking about 500cc every 2 hours. Tap yesterday drained 8.6 liters. She reports she is feeling pretty good today. Was discharged from [facility] last Friday. documented in this encounter Plan of Treatment Upcoming Encounters Date Type Department Care Team (Late st Contact Info) Description 07/28/2023 8:45 AM EST Office Visit Hematology/Oncology [facility] [address] [facility] [place] [address] Sandra Evans MD [address] [facility] [place] [address] 08/12/2023 12:30 PM EST Laboratory Laboratory, [place] [address] [place] [address] [place] [address] [place] [address] 09/09/2023 8:00 AM EST Office Visit Hepatology, [facility] [address] [place] [id number] Hilda Calvert DO [address] [place] [address] Scheduled Orders Name Type Priority Associated Diagnoses Orde r Schedule HEPATIC FUNCTION PANEL Lab Routine 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) Ordered: 07/15/2023 PT INR Lab Routine 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) Ordered: 07/15/2023 CBC WITH WBC DIFFERENTIAL Lab Routine 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) Ordered: 07/15/2023 BASIC METABOLIC PANEL Lab Routine 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) Ordered: 07/15/2023 Health Maintenance Due Date Last Done Comments [...] 5:16 PM 10/17/2007 5:01 PM Care Teams Director Of Medical Staff Services Relationship Specialty Start Date End Date Endy [place] DO [address] [address] [place] [address] PCP - General Family Medicine 07/13/18 documented as of this encounter
--- OUTSIDE RECORDS SUMMARY | 2023-07-21 23:37 | External Medical Summary | Summary of Care ---
Author Name Unknown Organization [facility] Address [address] [facility] [place] [address] Phone [phone] Care Team Providers Care Liquor Department Manager Name Role Phone Lizeth Endy Mora DO Primary Care Provider [phone] Encounter Details Date Type Department Care Team (Late st Contact Info) Description 07/15/2023 Orders Only Gastroenterology, [facility] [address] [place] [address] Hidla Calvert DO [address] [place] [address] Allergies Active Allergy Reactions Criticality Noted Date [...] suspected opioid overdose. Seek immediate medical attention. [email or web address]?[email or web address] 0 Active Prochlorperazine Maleate 5 MG Oral [...] 07/15/2023 2:00 PM EST Office Visit Hepatology, [facility] [address] [facility] [place] [address] Hilda Calvert DO [address] [place] [address] 07/28/2023 8:45 AM EST Office Visit Hematology/Oncology [facility] [place] [address] [place] [address] Sandra Evans MD [address] [place] [address] 08/12/2023 12:30 PM EST Laboratory Laboratory, [place] [address] [facility] [id number] [place], Laboratory [address] [place] [address] Health Maintenance Due Date Last Done Comments [...] Procedure Name Priority Date/Time Associated Diagnosis Comments CHEMISTRY-OUTSIDE Routine 07/14/2023 documented in this encounter Results * (ABNORMAL) CHEMISTRY-OUTSIDE (07/14/2023) Not all results display below - see scan for full detail OUTSIDE LAB (SEE SCANNED REPORT) Comment:SCAN INCL: PT, INR, PTT, CBCD CREATININE-OUTSID E LAB OUTSIDE LAB (SEE SCANNED REPORT) EGFR-OUTSIDE LAB OUT SIDE LAB (SEE SCANNED REPORT) POTASSIUM-OUTSIDE LAB OUTSIDE LAB (SEE SCANNED REPORT) GLUCOSE-OUTSIDE LAB OUTSIDE LAB (SEE SCANNED REPORT) HOURS FASTING OUTSID E LAB (SEE SCANNED REPORT) TRIGLYCERIDES-OUT SIDE LAB OUTSIDE LAB (SEE SCANNED REPORT) CHOLESTEROL-OUTSI DE LAB OUTSIDE LAB (SEE SCANNED REPORT) HDL-OUTSIDE LAB OUTS GRCEIA LAB (SEE SCANNED REPORT) CHOL/HDL RATIO-OUTSIDE LAB OUTSIDE LA B (SEE SCANNED REPORT) LDL (CALCULATED)-OUTS GRECIA LAB OUTSIDE LAB (SEE SCANNED REPORT) LDL (DIRECT MEASURE)-OUTSIDE LAB OUTSIDE LAB (SEE SCANNED REPORT) HEMOGLOBIN, W8U-ZWSTARS LAB OUTSIDE LAB (SEE SCANNED REPORT) PHOSPHORUS-OUTSID E LAB OUTSIDE LAB (SEE SCANNED REPORT) PTH-OUTSIDE LAB OUTS GRECIA LAB (SEE SCANNED REPORT) MICROALBUMIN RATIO-OUTSIDE LAB OUTSIDE LA B (SEE SCANNED REPORT) PROTEIN, UA-OUTSIDE LAB OUTSIDE LAB (SEE SCANNED REPORT) HEMOGLOBIN-OUTSID E LAB 8.9(A) 12.0 - 16.0 G/DL OUTSIDE LAB (SEE SCANNED REPORT) 07/14/2023 Hilda Calvert DO LABORATORY OUTSIDE LAB (SEE SCANNED REPORT) documented in this encounter Advance Directives Latest Code Status on File Code Status Date Activated Date Inactivated Comments Full Code 10/15/2007 5:16 PM 10/17/2007 5:01 PM Care Teams Liquor Department Manager Relationship Specialty Start Date End Date Endy [place] DO [address] [place] [address] [place] [id number] PCP - General Family Medicine 07/13/18 documented as of this encounter
--- OUTSIDE RECORDS SUMMARY | 2023-07-21 23:37 | External Medical Summary | Summary of Care ---
Author Name Unknown Organization [facility] Address [address] [facility] [place] [address] Phone [phone] Care Team Providers Care Carding Supervisor Name Role Phone Lizeth Endy Morgan SUMNER Primary Care Provider +1 -[phone] Reason for Referral * Precert (Within 10 days (routine)) - Authorized Specialty Diagnoses / Procedures Referred By Contac t Referred To Contact Radiology Diagnoses Liver cirrhosis secondary to nonalcoholic steatohepatitis (GILELSPIE) (HCC) Procedures IR PARACENTESIS Silva Pacheco DO [address] [place] [address] Referral ID Status Reason Start Date Expiration Date V isits Requested Visits Authorized [id number] Authorized 07/11/2023 24 24 Reason for Visit * Reason Onset Date Comments Follow Up 07/09/2023 Encounter Details Date Type Department Care Team (Late st Contact Info) Description 07/09/2023 Telephone Gastroenterology, [facility] [address] [place] [address] Silva Pacheco DO [address] [place] [address] Follow Up Allergies Active Allergy Reactions Criticality Noted Date Comments Codeine Hives 07/18/2012 Metformin Abdominal pain Low 03/30/2013 documented as of this encounter (statuses as of 07/14/2023) Medications Medication Sig Dispensed Refills Start Date [...] suspected opioid overdose. Seek immediate medical attention. [email or web address]?[email or web address] 0 Active Prochlorperazine Maleate 5 MG Oral [...] as of this encounter (statuses as of 07/14/2023) Active Problems Problem Noted Date Diagnosed Date [...] as of this encounter (statuses as of 07/14/2023) Resolved Problems Problem Noted Date Diagnosed Date [...] as of this encounter (statuses as of 07/14/2023) Immunizations Name Administration Dates Next Due H1N1 [...] encounter Miscellaneous Notes * Telephone Encounter - Araceli Wooten OSA - 07/14/2023 9:01 AM EST Spoke to patient, rescheduled follow up with Dr Evans to 07/28/23 @ 8:45 am. * Telephone Encounter - Araceli Wooten OSA - 07/14/2023 8:55 AM EST Requested records from [facility], will have scanned in to chart once received. * Telephone Encounter - Darling Westfall RN - 07/11/2023 4:27 PM EST Just an FYI * Telephone Encounter - Cassie Shelton RN - 07/11/2023 4:04 PM EST Patient returned call. Clarified that she is no longer following with [facility] since Kimberley Hess left. She states that she was admitted at [facility] a lot of April and most of [...] Patient is agreeable. Scheduling: - please contact [facility] to get all discharge summaries over the [...] lovenox. Of note, patient follows primarily with [facility]- was sent to [facility] for 2nd hematology opinion as she did not want to continue lovenox and wanted to try to switch to a oral medication instead. * Telephone Encounter - Darling Westfall RN - 07/11/2023 12:33 PM EST Faxed orders to [facility] main fax and IR fax. Called patient. Reports she will call to schedule herself. Already has the number and able to schedule her own paracentesis. Reports she will go to the ER If she has any worsening symptoms such as shortness of breath. Reports she currently is not on a blood thinners. Reports she is awaiting to hearback from Dr. Memons office regarding if she is to be on them again. FYI? * Addendum Note - Silva Pacheco DO - 07/11/2023 12:28 PM ESTAddended by: SILVA PACHECO on: 07/11/2023 12:28 PM Modules accepted: Orders * Telephone Encounter - Darling Westfall RN - 07/11/2023 11:59 AM EST Pt calling back in . Made aware we will be faxing orders once singed. Agreeable to ER for worseningshortness of breath. TT sent. * Addendum Note - Darling Westfall RN - 07/11/2023 9:58 AM ESTAddended by: DARLING WESTFALL on: 07/11/2023 09:58 AM Modules accepted: Orders * Telephone Encounter - Darling Westfall RN - 07/11/2023 9:56 AM EST Images from the original note were not included. "Silva Pacheco, DO to [facility] Nurse Ada/Class 07/11/23 9:43 AM She is not a candidate for any IR procedures. Can adjust paracentesis orders to twice weekly 10 L max." Pended please review / sign. Then we can fax to [facility]. The albumin I pended is for 25G [...] pt) Please advise. * Telephone Encounter - Darling Westfall RN - 07/09/2023 2:19 PM EST Silva Pacheco, DO to [facility] Nurse Ada/Class 07/09/23 11:23 AM I am going to discuss with IR today from [place] if she is a candidate for any procedures to reduce the ascites though she is very high risk for these. If they dont think she's a candidate and she needs them twice weekly we may do that but I want to discuss with them first. Silva Pacheco, DO." Pt calling in . I [...] to those records * Telephone Encounter - Darling Westfall RN - 07/09/2023 10:55 AM EST [...] often than what is ordered. I called [facility] to see if I could get the dates of all her last recent paracentesis. I can not see them in our system. Dr Kannan EVERETT. I am not sure if you can see all the last dates. * Telephone Encounter - Shobha Wen LPN - 07/09/2023 10:37 AM EST Received a call from IR at [facility]. This pt was giving them a hard [...] week) Please clarify and fax orders to [phone] Nurse number if need to call is : [phone]( back line) documented in this encounter Plan of Treatment Upcoming Encounters Date Type Department Care Team (Late st Contact Info) Description 07/15/2023 2:00 PM EST Office Visit [facility]atology, [facility] [place] [address] Silva Pacheco DO [address] [facility] [place] [address] 07/28/2023 8:45 AM EST Office Visit Hematology/Oncology [facility] [place] [address] [place] [address] Sandra Evans MD [address] [place] [address] 08/12/2023 12:30 PM EST Laboratory Laboratory, [address] [place] [id number] [address] [place] [address] Scheduled Orders Name Type Priority Associated Diagnoses [...] 5:16 PM 10/17/2007 5:01 PM Care Teams Carding Supervisor Relationship Specialty Start Date End Date Endy Stanley DO [address] [place] [address] [place] [address] PCP - General Family Medicine 07/13/18 documented as of this encounter
--- OUTSIDE RECORDS SUMMARY | 2023-07-21 23:37 | External Medical Summary | Summary of Care ---
Author Name Unknown Organization [facility] Address [address] [facility] [place] [address] Phone [phone] Care Team Providers Care Burner Operator Name Role Phone Lizeth Endy Morgan SUMNER Primary Care Provider +1 [phone] Reason for Referral * Precert (Within 10 days (routine)) - Authorized Specialty Diagnoses / Procedures Referred By Contac t Referred To Contact Radiology Diagnoses 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) Procedures IR PARACENTESIS Silva Pacheco DO [address] [place] [address] Referral ID Status Reason Start Date Expiration Date V isits Requested Visits Authorized [id number] Authorized 07/11/2023 24 24 Reason for Visit * Reason Onset Date Comments Follow Up 07/09/2023 Encounter Details Date Type Department Care Team (Late st Contact Info) Description 07/09/2023 Telephone Gastroenterology, [facility] [address] [place] [address] Silva Pacheco DO [address] [place] [address] Follow Up Allergies Active Allergy Reactions Criticality [...] suspected opioid overdose. Seek immediate medical attention. [email or web address]?[email or web address] 0 Active Prochlorperazine Maleate 5 MG Oral [...] 07/14/2023 8:55 AM EST Requested records from [facility], will have scanned in to chart once received. * Telephone Encounter - Darling Westfall RN - 07/11/2023 4:27 PM EST Just an FYI * Telephone Encounter - Cassie Shelton RN - 07/11/2023 4:04 PM EST Patient returned call. Clarified that she is no longer following with [facility] since Kimberley Paigebrycejohn left. She states that she was admitted at [facility] a lot of April and most of [...] Patient is agreeable. Scheduling: - please contact [facility] to get all discharge summaries over the [...] lovenox. Of note, patient follows primarily with [facility]- was sent to [facility] for 2nd hematology opinion as she did not want to continue lovenox and wanted to try to switch to a oral medication instead. * Telephone Encounter - Darling Westfall RN - 07/11/2023 12:33 PM EST Faxed orders to [facility] main fax and IR fax. Called patient. [...] the original note were not included. "Silva Pacheco DO to [facility] Nurse Pool/Class 07/11/23 9:43 AM She is not a candidate for any IR procedures. Can adjust paracentesis orders to twice weekly 10 L max." Pended please review / sign. Then we can fax to [facility]. The albumin I pended is for 25G [...] 2:19 PM EST Silva Pacheco, DO to [facility] Nurse Pool/Class 07/09/23 11:23 AM I am going to discuss with IR today from [place] if she is a candidate for any [...] often than what is ordered. I called [facility] to see if I could get the dates of all her last recent paracentesis. I can not see them in our system. Dr Kannan Pacheco FYI. I am not sure if you can see all the last dates. * Telephone Encounter - Shobha Wen LPN - 07/09/2023 10:37 AM EST Received a call from IR at [facility]. This pt was giving them a hard [...] week) Please clarify and fax orders to [phone] Nurse number if need to call is : [phone]( back line) documented in this encounter Plan of Treatment Upcoming Encounters Date Type Department Care Team (Late st Contact Info) Description 07/15/2023 2:00 PM EST Office Visit [facility]atology, [facility] [place] [address] Silva [facility] DO [facility] [place] [address] 08/12/2023 12:30 PM EST Laboratory Laboratory, [place] [address] [place] [address] [place] [address] [place] [address] 08/19/2023 12:30 PM EST Office Visit Hematology/Oncology [facility] [address] [facility] [place] [address] aSndra Evans MD 200 [facility] [place] [address] Scheduled Orders Name Type Priority Associated Diagnoses [...] 5:16 PM 10/17/2007 5:01 PM Care Teams Burner Operator Relationship Specialty Start Date End Date Endy [place] DO [address] [facility] [place] [address] [place] [address] PCP - General Family Medicine 07/13/18 documented as of this encounter
--- OUTSIDE RECORDS SUMMARY | 2023-07-21 23:38 | External Medical Summary | Summary of Care ---
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 Seek immediate medical attention. [email or web address]/watch?v= [email or web address] 0 Active Prochlorperazine Maleate 5 MG Oral [...] She states that she was admitted at [facility] a lot of April and [...] Patient is agreeable. Scheduling: - please contact [facility] to get all discharge summaries [...] lovenox. Of note, patient follows primarily with [facility]- was sent to [facility] [address] for 2nd hematology opinion as she did not want to continue lovenox and wanted to try to switch to a oral medication instead. * Telephone Encounter - Lisa Westfall RN - 07/11/2023 12:33 PM EST Faxed orders to [facility] main fax and IR fax. [...] were not included. "Hilda Pacheco, DO to [facility] Nurse Pool/Class 07/11/23 9:43 AM She is not a candidate for any IR procedures. Can adjust paracentesis orders to twice weekly 10 L max." Pended please review / sign. Then we can fax to [facility]. The albumin I pended is [...] 2:19 PM EST Hilda Pacheco DO to [facility] Nurse Pool/Class 07/09/23 11:23 AM I am going to discuss with IR today from [place] if she is a candidate for any [...] often than what is ordered. I called [facility] to see if I could get the dates of all her last recent paracentesis. I can not see them in our system. Dr Kannan Pacheco FYI. I am not sure if you can see all the last dates. * Telephone Encounter - Shobha Wen LPN - 07/09/2023 10:37 AM EST Received a call from IR at [facility]. This pt was giving them [...] week) Please clarify and fax orders to [phone] Nurse number if need to call is : [phone]( back line) documented in this encounter Plan of Treatment Upcoming Encounters Date Type Department Care Team (Late st Contact Info) Description 07/15/2023 2:00 PM EST Office Visit Hepatology, [facility] [address] [facility] [place] [address] Hilda Pacheco DO [address] [place] [address] 08/12/2023 12:30 PM EST Laboratory Laboratory, [place] [address] [place] [id number] [place], Laboratory [address] [place] [address] 08/19/2023 12:30 PM EST Office Visit Hematology/Oncology [facility] 200 [facility] [place] [address] Sandra Evans MD 200 [place] [address] Scheduled Orders Name Type Priority Associated Diagnoses [...] 5:16 PM 10/17/2007 5:01 PM Care Teams Student Success Coach Relationship Specialty Start Date End Date Endy [place] DO [address] [place] [address] PCP - General Family Medicine 07/13/18 documented as of this encounter
--- OUTSIDE RECORDS SUMMARY | 2023-07-21 23:38 | External Medical Summary | Summary of Care ---
Author Name Unknown Organization [facility] Address [address] [facility] [place] [address] Phone [phone] Care Team Providers Care Street Worker Name Role Phone Lizeth Endy Morgan SUMNER Primary Care Provider +1 -[phone] Reason for Visit * Reason Onset Date Comments Follow Up 07/09/2023 Encounter Details Date Type Department Care Team (Late st Contact Info) Description 07/09/2023 Telephone Gastroenterology, [facility] [address] [place] [address] Hilda Calvert DO [address] [place] [address] Follow Up Allergies Active Allergy Reactions Criticality [...] g 4 Active valACYclovir (VALTREX) 1000 MG TabletIndications:C [...] suspected opioid overdose. Seek immediate medical attention. [email or web address]?[email or web address] 0 Active Prochlorperazine Maleate 5 MG Oral [...] 0 Active Albumin Human 25 % Intravenous Solution [...] of cervix (uteri) 04/24/2004 05/14/2017 Overview: LG 9, Leep 12/26 and 07/30 ICD-10 update of [...] Agreeable to ER for worseningshortness of breath. * Addendum Note - Lisa Westfall RN - 07/11/2023 9:58 AM ESTAddended by: LISA WESTFALL on: 07/11/2023 09:58 AM Modules accepted: Orders * Telephone Encounter - Lisa Westfall RN - 07/11/2023 9:56 AM EST Images from the original note were not included. "Hilda Calvert, DO to [facility] Nurse Pool/Class 07/11/23 9:43 AM She is not a candidate for any IR procedures. Can adjust paracentesis orders to twice weekly 10 L max." Pended please review / sign. Then we can fax to [facility]. The albumin I pended is for 25G before and after paracentesis . I was not sure if you wanted this or a different albumin order. * Telephone Encounter - Shobha Wen LPN - 07/11/2023 9:24 AM EST Pt calling in asking about her paracentesis. Pt asking about whether Dr fitzpatrick had reached out to Dr Calvert regarding her paracentesis or not. Pt stating that Dr fitzpatrick said she was going to reach out to her. Also stating that she was told ,if she can handle it , that should not be a problem. Dr Calvert, I don't see any documentation of this( as I told the pt) Please advise. * Telephone Encounter - Lisa Westfall RN - 07/09/2023 2:19 PM EST Hilda Calvert, DO to [facility] Nurse Pool/Class 07/09/23 11:23 AM I am going to discuss with IR today from [place] if she is a candidate for any procedures to reduce the ascites though she is very high risk for these. If they dont think she's a candidate and she needs them twice weekly we may do that but I want to discuss with them first. Hilda Calvert, DO." Pt calling in . I relayed this message to her. She was tearful would like me to send a messafge to Dr. Calvert to see is she has an answer for her yet. Would like her to know she has had multiple liters removed her last few paracentesis. She is aware Dr. Calvert has access to those records * Telephone [...] often than what is ordered. I called [facility] to see if I could get the dates of all her last recent paracentesis. I can not see them in our system. Dr Kannan EVERETT. I am not sure if you can see all the last dates. * Telephone Encounter - Shobha Wen LPN - 07/09/2023 10:37 AM EST Received a call from IR at [facility]. This pt was giving them [...] week) Please clarify and fax orders to [phone] Nurse number if need to call is : [phone]( back line) documented in this encounter Plan of Treatment Upcoming Encounters Date Type Department Care Team (Late st Contact Info) Description 07/15/2023 2:00 PM EST Office Visit Hepatology, [facility] [address] [place] [address] Hilda Calvert DO [address] [place] [address] 08/12/2023 12:30 PM EST Laboratory Laboratory, [place] [address] [facility] [id number] [place], Laboratory [address] [place] [address] 08/19/2023 12:30 PM EST Office Visit Hematology/Oncology [facility] 200 [facility] [place] [address] Sandra Evans MD 200 [facility] [place] [address] Health Maintenance Due Date Last Done Comments [...] 09/2014, 03/31/2013, Additional history exists COVID-19 Vaccine (24 season) 2023 07/02/2022, 01/23/2022, 07/24/2021, Additional history [...] 5:16 PM 10/17/2007 5:[address] Worker Relationship Specialty Start Date End Date Endy Stanley DO 1 [facility] [place] [address] [place] [address] PCP - General Family Medicine 07/13/18 documented as of this encounter
--- OUTSIDE RECORDS SUMMARY | 2023-07-21 23:38 | External Medical Summary | Summary of Care ---
Author Name Unknown Organization [facility] Address [address] [place] [address] Phone [phone] Care Team Providers Care Health Safety Manager Name Role Phone Endy Stanley Primary Care Provider +1 [phone] Reason for Visit * Reason Onset Date Comments Follow Up 07/11/2023 Encounter Details Date Type Department Care Team (Late st Contact Info) Description 07/11/2023 Telephone Radiology, [place] [address] [place] [address] José Noble MD [address] [place] [address] Follow Up Allergies Active Allergy Reactions Criticality [...] suspected opioid overdose. Seek immediate medical attention. [email or web address] 0 Active Prochlorperazine Maleate 5 MG Oral [...] encounter Miscellaneous Notes * Telephone Encounter - José Noble MD - 07/11/2023 12:21 PM EST I spoke with Ms. Gutiérrez on 07/10/23 and 07/11/23. Given her hepatic encephalopathy, she is not a good candidate for TIPS at this time. I am concerned that a Butler shunt will occlude within a matter of months. A tunneled drainage catheter increases her risk for infection. I would hold on any inter ventional procedures until her HE is improved. Ms. Gutiérrez states she is okay getting frequent paracenteses for the time being. She would like toget them twice weekly. This was conveyed to Dr. Calvert who also agreed and placed orders for more frequent katarzyna at [facility]. This was discussed with Ms. Gutiérrez. I will follow up with Ms. Gutiérrez by phone in approximately 1 month. documented in this encounter Plan of Treatment Upcoming Encounters Date Type Department Care Team (Late st Contact Info) Description 07/15/2023 2:00 PM EST Office Visit Hepatology, [facility] [address] [place] [place] [address] Hilda Calvert DO [address] [place] [address] 08/12/2023 12:30 PM EST Laboratory Laboratory, [place] [address] [facility] [id number] [place], Laboratory [address] [facility], [place] [address] 08/19/2023 12:30 PM EST Office Visit Hematology/Oncology [facility] [place] 200 [facility] [place] [address] Sandra Evans MD 200 [facility] [place] [address] Health Maintenance Due Date Last Done Comments [...] 5:16 PM 10/17/2007 5:01 PM Care Teams Health Safety Manager Relationship Specialty Start Date End Date Endy Stanley DO [address] [place] [address] [place] [address] PCP - General Family Medicine 07/13/18 documented as of this encounter
--- OUTSIDE RECORDS SUMMARY | 2023-07-21 23:38 | External Medical Summary | Summary of Care ---
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) Procedures IR PARACENTESIS Silva Pacheco DO [address] [place] [address] Referral ID Status Reason Start Date Expiration Date V isits Requested Visits Authorized [id number] Authorized 07/11/2023 24 24 Reason for Visit * Reason Onset Date Comments Follow Up 07/09/2023 Encounter Details Date Type Department Care Team (Late st Contact Info) Description 07/09/2023 Telephone Gastroenterology, [facility] [address] [place] [address] Silva Pacheco DO [address] [place] [address] Follow Up Allergies Active Allergy Reactions Criticality [...] suspected opioid overdose. Seek immediate medical attention. [email or web address] [employer] [email or web address]/watch?v= [email or web address] 0 Active Prochlorperazine Maleate 5 MG Oral [...] encounter Miscellaneous Notes * Addendum Note - Silva Pacheco DO [...] were not included. "Silva Pacheco, DO to [facility] Nurse [place]/Class 07/11/23 9:43 AM She is not a candidate for any IR procedures. Can adjust paracentesis orders to twice weekly 10 L max." Pended please review / sign. Then we can fax to [facility]. The albumin I pended is for 25G before and after paracentesis . I was not sure if you wanted this or a different albumin order. * Telephone Encounter - Shohba Wen LPN - 07/11/2023 9:24 AM EST [...] 2:19 PM EST Silva Pacheco, DO to [facility] Nurse [place]/Class 07/09/23 11:23 AM I am going to discuss with IR today from [place] if she is a candidate for any [...] often than what is ordered. I called [facility] CLAR[facility]SA to see if I could get the dates of all her last recent paracentesis. I can not see them in our system. Dr Kannan EVERETT. I am not sure if you can see all the last dates. * Telephone Encounter - Shobha Wen LPN - 07/09/2023 10:37 AM EST Received a call from IR at [facility]. This pt was giving them a [...] week) Please clarify and fax orders to [phone] Nurse number if need to call is : [phone]( back line) documented in this encounter Plan of Treatment Upcoming Encounters Date Type Department Care Team (Late st Contact Info) Description 07/15/2023 2:00 PM EST Office Visit Hepatology, [facility] [address] [facility] [place] [address] Silva Pacheco DO [address] [place] [address] 08/12/2023 12:30 PM EST Laboratory Laboratory, [place] [address] [place] [phone] [facility] [address] [place] [address] 08/19/2023 12:30 PM EST Office Visit Hematology/Oncology [facility] [address] [place] [address] Sandra Evans MD [address] [place] [address] Scheduled Orders Name Type Priority Associated Diagnoses [...] 5:16 PM 10/17/2007 5:01 PM Care Teams Fabric Finisher Relationship Specialty Start Date End Date Endy Stanley DO 1 [facility] [place] [address] [place] [address] PCP - General Family Medicine 07/13/18 documented as of this encounter
--- OUTSIDE RECORDS SUMMARY | 2023-07-21 23:38 | External Medical Summary | Summary of Care ---
Author Name Unknown Organization [facility] Address [address] [facility] [place] [address] Phone [phone] Care Team Providers Care Injection Molding Machine Setter Name Role Phone Lizeth Endy Morgan SUMNER Primary Care Provider +1 -[phone] Reason for Visit * Reason Onset Date Comments Follow Up 07/09/2023 Encounter Details Date Type Department Care Team (Late st Contact Info) Description 07/09/2023 Telephone Gastroenterology, [facility] [address] [place] [place] [address] Hilda Calvert DO [address] [place] [address] Follow Up Allergies Active Allergy Reactions Criticality [...] suspected opioid overdose. Seek immediate medical attention. [email or web address]/watch?v= [email or web address] 0 Active Prochlorperazine Maleate 5 MG Oral [...] were not included. "Hilda Calvert, DO to [facility] Nurse [place]/Class 07/11/23 9:43 AM She is not a candidate for any IR procedures. Can adjust paracentesis orders to twice weekly 10 L max." Pended please review / sign. Then we can fax to [facility]. The albumin I pended is for 25G [...] 2:19 PM EST Hilda Calvert, DO to [facility] Nurse Pool/Class 07/09/23 11:23 AM I am going to discuss with IR today from [place] if she is a candidate for any [...] ordered. I called [facility] CL[facility]SA to see if I could get the dates of all her last recent paracentesis. I can not see them in our system. Dr Kannan EVERETT. I am not sure if you can see all the last dates. * Telephone Encounter - Shobha Wen LPN - 07/09/2023 10:37 AM EST Received a call from IR at [facility]. This pt was giving them a hard [...] week) Please clarify and fax orders to [phone] Nurse number if need to call is : [phone]( back line) documented in this encounter Plan of Treatment Upcoming Encounters Date Type Department Care Team (Late st Contact Info) Description 07/15/2023 2:00 PM EST Office Visit Hepatology, [facility] [address] [place] [place] [address] Hilda Calvert DO [address] [place] [address] 08/12/2023 12:30 PM EST Laboratory Laboratory, [place] [address] [facility] [phone] [place], Laboratory [address] [place] [address] 08/19/2023 12:30 PM EST Office Visit Hematology/Oncology [facility] [place] [address] Sandra Evans MD [address] [facility] [place] [address] Health Maintenance Due Date Last Done Comments [...] 09/2014, 03/31/2013, Additional history exists COVID-19 Vaccine (2022-24 season) 2023 07/02/2022, 01/23/2022, 07/24/2021, Additional history [...] 5:16 PM 10/17/2007 5:01 PM Care Teams Injection Molding Machine Setter Relationship Specialty Start Date End Date Endy Stanley DO 1 [facility] Randell [place] [facility] [place] [address] PCP - General Family Medicine 07/13/18 documented as of this encounter
--- OUTSIDE RECORDS SUMMARY | 2023-07-21 23:38 | External Medical Summary | Summary of Care ---
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) Procedures IR PARACENTESIS Hilda Pacheco DO [address] [place] [address] Referral ID Status Reason Start Date Expiration Date V isits Requested Visits Authorized [id number] Authorized 07/11/2023 24 24 Reason for Visit * Reason Onset Date Comments Follow Up 07/09/2023 Encounter Details Date Type Department Care Team (Late st Contact Info) Description 07/09/2023 Telephone Gastroenterology, [facility] [address] [place] [address] Hilda Pacheco DO [address] [place] [address] Follow Up Allergies Active Allergy Reactions Criticality [...] suspected opioid overdose. Seek immediate medical attention. [email or web address]://www.My [email or web address]/watch?v= [email or web address] 0 Active Prochlorperazine Maleate 5 MG Oral [...] 07/11/2023 12:33 PM EST Faxed orders to [facility] main fax and IR fax. Called patient. [...] the original note were not included. "Hilda Pacheco DO to [facility] Nurse Pool/Class 07/11/23 9:43 AM She is not a candidate for any IR procedures. Can adjust paracentesis orders to twice weekly 10 L max." Pended please review / sign. Then we can fax to [facility]. The albumin I pended is for 25G [...] RN - 07/09/2023 2:19 PM EST Hilda Pacheco, DO to [facility] Nurse [facility] 07/09/23 11:23 AM I am going to discuss with IR today from [place] if she is a candidate for any procedures to reduce the ascites though she is very high risk for these. If they dont think she's a candidate and she needs them twice weekly we may do that but I want to discuss with them first. Hilda Pacheco, ." Pt calling in . I relayed this [...] what is ordered. I called [facility] CLAR[facility]SA to see if I could get the dates of all her last recent paracentesis. I can not see them in our system. Dr Kannan EVERETT. I am not sure if you can see all the last dates. * Telephone Encounter - Shobha Wen LPN - 07/09/2023 10:37 AM EST Received a call from IR at [facility]. This pt was giving them a hard [...] week) Please clarify and fax orders to [phone] Nurse number if need to call is : [phone]( back line) documented in this encounter Plan of Treatment Upcoming Encounters Date Type Department Care Team (Late st Contact Info) Description 07/15/2023 2:00 PM EST Office Visit Hepatology, [facility] [address] [place] [address] Hilda Pacheco DO [address] [place] [address] 08/12/2023 12:30 PM EST Laboratory Laboratory, [place] [address] [place] [phone] [place], Laboratory [address] [place] [address] 08/19/2023 12:30 PM EST Office Visit Hematology/Oncology [place] [facility] [place] [address] Sandra Evans MD [address] [facility] [place] [address] Scheduled Orders Name Type Priority Associated Diagnoses [...] 05/14/2017, 0 11/15/2015, 12/23/2014 TSH 05/21/2018 05/21/2017, 0402/2017, 09/30/2016, Additional history exists DTaP,Tdap,and Td Vaccines [...] 5:16 PM 10/17/2007 5:01 PM Care Teams Firer Retort Relationship Specialty Start Date End Date Endy Stanley DO [address] [place] [address] [place] [address] PCP - General Family Medicine 07/13/18 documented as of this encounter
--- OUTSIDE RECORDS SUMMARY | 2023-07-21 23:38 | External Medical Summary | Summary of Care ---
Author Name Unknown Organization [facility] Address [address] [facility] [place] [address] Phone [phone] Care Team Providers Care Seat Trimmer Name Role Phone Lizeth Endy Morgan SUMNER Primary Care Provider [phone] Reason for Referral * Precert (Within 10 days (routine)) - Authorized Specialty Diagnoses / Procedures Referred By Contac t Referred To Contact Radiology Diagnoses 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) Procedures IR PARACENTESIS Silva Pacheco DO [address] [place] [address] Referral ID Status Reason Start Date Expiration Date V isits Requested Visits Authorized [id number] Authorized 07/11/2023 24 24 Reason for Visit * Reason Onset Date Comments Follow Up 07/09/2023 Encounter Details Date Type Department Care Team (Late st Contact Info) Description 07/09/2023 Telephone Gastroenterology, [facility] [address] [place] [address] Silva Pacheco DO [address] [place] [address] Follow Up Allergies Active Allergy Reactions Criticality [...] suspected opioid overdose. Seek immediate medical attention. https://www.[employer]isions [email or web address]/watch?v= [email or web address] 0 Active Prochlorperazine Maleate 5 MG Oral [...] encounter Miscellaneous Notes * Telephone Encounter - Casise Shelton RN - 07/11/2023 4:04 PM EST Patient returned call. Clarified that she is no longer following with [facility] since Kimberley Hess left. She states that she was admitted at [facility] a lot of April and most [...] Patient is agreeable. Scheduling: - please contact [facility] to get all discharge summaries over [...] primarily with [facility]- was sent to [facility] for 2nd hematology opinion as she did not want to continue lovenox and wanted to try to switch to a oral medication instead. * Telephone Encounter - Darling Westfall RN - 07/11/2023 12:33 PM EST Faxed orders to [facility] main fax and IR fax. Called [...] were not included. "Silva Pacheco, DO to [facility] Nurse Pool/Class 07/11/23 9:43 AM She is not a candidate for any IR procedures. Can adjust paracentesis orders to twice weekly 10 L max." Pended please review / sign. Then we can fax to [facility]. The albumin I pended is for [...] RN - 07/09/2023 2:19 PM EST Silva Pacheco DO to [facility] Nurse Pool/Class 07/09/23 11:23 AM I am going to discuss with IR today from [place] if she is a candidate for any [...] often than what is ordered. I called [facility] CLAR[facility]SA to see if I could get the dates of all her last recent paracentesis. I can not see them in our system. Dr Kannan Pacheco FYKiran. I am not sure if you can see all the last dates. * Telephone Encounter - Behzad Shobha CHANCE Kwon - 07/09/2023 10:37 AM EST Received a call from IR at [facility]. This pt was giving them a [...] week) Please clarify and fax orders to [phone] Nurse number if need to call is : [phone]( back line) documented in this encounter Plan of Treatment Upcoming Encounters Date Type Department Care Team (Late st Contact Info) Description 07/15/2023 2:00 PM EST Office Visit Hepatology, [facility] [address] [facility] [place] [address] Silva Pacheco DO [address] [place] [address] 08/12/2023 12:30 PM EST Laboratory Laboratory, [place] [address] [place] [phone] [place], Laboratory [address] [place] [address] 08/19/2023 12:30 PM EST Office Visit Hematology/Oncology [facility] 200 [facility] [place] [address] Sandra Evans MD 200 [facility] [place] [address] Scheduled Orders Name Type Priority Associated Diagnoses [...] 5:16 PM 10/17/2007 5:01 PM Care Teams Seat Trimmer Relationship Specialty Start Date End Date Endy [place] DO [address] [place] [address] [place] [address] PCP - General Family Medicine 07/13/18 documented as of this encounter
--- OUTSIDE RECORDS SUMMARY | 2023-07-21 23:38 | External Medical Summary | Summary of Care ---
Author Name Unknown Organization [facility] Address [address] [facility] [place] [address] Phone [phone] Care Team Providers Care Manager Monitoring Name Role Phone Lizeth Endy Morgan SUMNER Primary Care Provider +1 -[phone] Reason for Visit * Reason Onset Date Comments Follow Up 07/09/2023 Encounter Details Date Type Department Care Team (Late st Contact Info) Description 07/09/2023 Telephone Gastroenterology, [facility] [address] [place] [address] Hilda Calvert DO [address] [place] [address] Follow Up Allergies Active Allergy Reactions Criticality [...] suspected opioid overdose. Seek immediate medical attention. https://www.[email or web address].com/watch?v= [email or web address] 0 Active Prochlorperazine Maleate 5 MG Oral [...] were not included. "Hilda Calvert, DO to [facility] Nurse Pool/Class 07/11/23 9:43 AM She is not a candidate for any IR procedures. Can adjust paracentesis orders to twice weekly 10 L max." Pended please review / sign. Then we can fax to [facility]. The albumin I pended is for 25G [...] 2:19 PM EST Hilda Calvert, DO to [facility] Nurse Pool/Class 07/09/23 11:23 AM I am going to discuss with IR today from [place] if she is a candidate for any [...] often than what is ordered. I called [facility] CL[facility] to see if I could get the dates of all her last recent paracentesis. I can not see them in our system. Dr Kannan EVERETT. I am not sure if you can see all the last dates. * Telephone Encounter - Shobha Wen LPN - 07/09/2023 10:37 AM EST Received a call from IR at [facility]. This pt was giving them a hard [...] week) Please clarify and fax orders to [phone] Nurse number if need to call is : [phone]( back line) documented in this encounter Plan of Treatment Upcoming Encounters Date Type Department Care Team (Late st Contact Info) Description 07/15/2023 2:00 PM EST Office Visit Hepatology, [facility] [address] [place] [address] Hilda Calvert DO [address] [place] [address] 08/12/2023 12:30 PM EST Laboratory Laboratory, [place] [address] [facility] [phone] [place], Laboratory [address] [place] [address] 08/19/2023 12:30 PM EST Office Visit Hematology/Oncology [facility] 200 [facility] [place] [address] Sandra Evans MD 200 [facility] [place] [address] Health Maintenance Due Date Last Done Comments [...] 5:16 PM 10/17/2007 5:01 PM Care Teams Manager Monitoring Relationship Specialty Start Date End Date Endy Stanley DO 1 [facility] [address] [address] [place] [address] PCP - General Family Medicine 07/13/18 documented as of this encounter
--- OUTSIDE RECORDS SUMMARY | 2023-07-21 23:38 | External Medical Summary | Summary of Care ---
Author Name Unknown Organization [facility] Address [address] [facility] [place] [address] Phone [phone] Care Team Providers Care Elderly Sitter Name Role Phone Lizeth Endy Morgan SUMNER Primary Care Provider +1 [phone] Reason for Referral * Precert (Within 10 days (routine)) - Authorized Specialty Diagnoses / Procedures Referred By Contac t Referred To Contact Radiology Diagnoses 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) Procedures IR PARACENTESIS Silva Pacheco DO [address] [employer] [place] [address] Referral ID Status Reason Start Date Expiration Date V isits Requested Visits Authorized [id number] Authorized 07/11/2023 24 24 Reason for Visit * Reason Onset Date Comments Follow Up 07/09/2023 Encounter Details Date Type Department Care Team (Late st Contact Info) Description 07/09/2023 Telephone Gastroenterology, [facility] [address] [place] [address] Silva Pacheco DO [address] [place] [address] Follow Up Allergies Active Allergy Reactions Criticality [...] suspected opioid overdose. Seek immediate medical attention. [email or web address].[email or web address]/watch?v= [email or web address] 0 Active Prochlorperazine Maleate 5 MG Oral [...] encounter Miscellaneous Notes * Telephone Encounter - Cassie Shelton RN [...] lovenox. Of note, patient follows primarily with [facility]- was sent to [facility] for 2nd hematology opinion as she did not want to continue lovenox and wanted to try to switch to a oral medication instead. * Telephone Encounter - Darling Westfall RN - 07/11/2023 12:33 PM EST Faxed orders to [facility] main fax and IR fax. Called patient. [...] were not included. "Silva Pacheco, DO to [facility] Nurse Pool/Class 07/11/23 9:43 AM She is not a candidate for any IR procedures. Can adjust paracentesis orders to twice weekly 10 L max." Pended please review / sign. Then we can fax to [facility]. The albumin I pended is for 25G [...] 2:19 PM EST Silva Pacheco, DO to [facility]/Class 07/09/23 11:23 AM I am going to discuss with IR today from [place] if she is a candidate for any [...] often than what is ordered. I called [facility] CLARISSA to see if I could get the dates of all her last recent paracentesis. I can not see them in our system. Dr Kannan EVERETT. I am not sure if you can see all the last dates. * Telephone Encounter - Shobha Wen LPN - 07/09/2023 10:37 AM EST Received a call from IR at [facility]. This pt was giving them a hard [...] week) Please clarify and fax orders to [phone] Nurse number if need to call is : [phone]( back line) documented in this encounter Plan of Treatment Upcoming Encounters Date Type Department Care Team (Late st Contact Info) Description 07/15/2023 2:00 PM EST Office Visit Hepatology, [facility] [address] [facility] [place] [address] Silva Pacheco DO [address] [facility] [place] [address] 08/12/2023 12:30 PM EST Laboratory Laboratory, [place] [address] [place] [phone] [facility] [address] [place] [address] 08/19/2023 12:30 PM EST Office Visit Hematology/Oncology [place] [address] [place] [address] Sandra Evans MD 200 [facility] [place] [address] Scheduled Orders Name Type Priority Associated Diagnoses [...] 5:16 PM 10/17/2007 5:01 PM Care Teams Elderly Sitter Relationship Specialty Start Date End Date Endy Stanlye DO [address] [place] [address] [place] [address] PCP - General Family Medicine 07/13/18 documented as of this encounter
--- OUTSIDE RECORDS SUMMARY | 2023-07-21 23:38 | External Medical Summary | Summary of Care ---
Author Name Unknown Organization [facility] Address [address] [facility] [place] [address] Phone [phone] Care Team Providers Care Membership Coordinator Name Role Phone Lizeth Endy Morgan SUMNER Primary Care Provider +1 -[phone] Reason for Visit * Reason Onset Date Comments Follow Up 07/09/2023 Encounter Details Date Type Department Care Team (Late st Contact Info) Description 07/09/2023 Telephone Gastroenterology, [facility] [address] [place] [address] Hilda Calvert DO [address] [place] [address] Follow Up Allergies Active Allergy Reactions Criticality [...] suspected opioid overdose. Seek immediate medical attention. [email or web address].[email or web address]/watch?v= [email or web address] 0 Active Prochlorperazine Maleate 5 MG Oral [...] were not included. "Hilda Calvert, DO to [facility] Nurse Pool/Class 07/11/23 9:43 AM She is [...] 2:19 PM EST Hilda Calvert, DO to [facility] Nurse Pool/Class 07/09/23 11:23 AM I am going to discuss with IR today from [place] if she is a candidate for any [...] week) Please clarify and fax orders to [phone] Nurse number if need to call is : [phone]( back line) documented in this encounter Plan of Treatment Upcoming Encounters Date Type Department Care Team (Late st Contact Info) Description 07/15/2023 2:00 PM EST Office Visit Hepatology, [facility] [address] [place] [address] Hilda Calvert DO [address] [place] [address] 08/12/2023 12:30 PM EST Laboratory Laboratory, [place] [address] [facility] [phone] [place], Laboratory [address] [place] [address] 08/19/2023 12:30 PM EST Office Visit Hematology/Oncology [facility] [address] [facility] [address] [facility] [place] [address] Sandra Evans MD [address] [facility] [place] [address] Health Maintenance Due Date Last Done Comments [...] 5:16 PM 10/17/2007 5:01 PM Care Teams Membership Coordinator Relationship Specialty Start Date End Date Endy Stanley DO 1 [facility] [address] [place] [address] [place] [address] PCP - General Family Medicine 07/13/18 documented as of this encounter
--- OUTSIDE RECORDS SUMMARY | 2023-07-21 23:38 | External Medical Summary | Summary of Care ---
Author Name Unknown Organization [facility] Address [address] [facility] [place] [address] Phone [phone] Care Team Providers Care Medical Researcher Name Role Phone Lizeth Endy Morgan SUMNER Primary Care Provider +1 [phone] Reason for Visit * Reason Onset Date Comments Follow Up 07/09/2023 Encounter Details Date Type Department Care Team (Late st Contact Info) Description 07/09/2023 Telephone Gastroenterology, [facility] [address] [place] [address] Hilda Calvert DO [address] [place] [address] Follow Up Allergies Active Allergy Reactions Criticality [...] suspected opioid overdose. Seek immediate medical attention. [email or web address] 0 Active Prochlorperazine Maleate 5 MG Oral [...] were not included. "Hilda Calvert, DO to [facility] Nurse Pool/Class 07/11/23 9:43 AM She is not a candidate for any IR procedures. Can adjust paracentesis orders to twice weekly 10 L max." Pended please review / sign. Then we can fax to [facility]. The albumin I pended is for [...] 2:19 PM EST Hilda Calvert, DO to [facility] Nurse Pool/Class 07/09/23 11:23 AM I am going to discuss with IR today from [place] if she is a candidate for any [...] often than what is ordered. I called [facility] to see if I could get the dates of all her last recent paracentesis. I can not see them in our system. Dr Kannan EVERETT. I am not sure if you can see all the last dates. * Telephone Encounter - Shobha Wen LPN - 07/09/2023 10:37 AM EST Received a call from IR at [facility]. This pt was giving them a [...] week) Please clarify and fax orders to [phone] Nurse number if need to call is : [phone]( back line) documented in this encounter Plan of Treatment Upcoming Encounters Date Type Department Care Team (Late st Contact Info) Description 07/15/2023 2:00 PM EST Office Visit Hepatology, [facility] [address] [place] [address] Hilda Calvert DO [address] [place] [address] 08/12/2023 12:30 PM EST Laboratory [facility] [place] [address] [facility] [phone] [place], Laboratory [address] [place] [address] 08/19/2023 12:30 PM EST Office Visit Hematology/Oncology [facility] [address] [facility] [place] [address] Sandra Evans MD [address] [facility] [place] [address] Health Maintenance Due Date Last Done Comments [...] 5:16 PM 10/17/2007 5:01 PM Care Teams Medical Researcher Relationship Specialty Start Date End Date Endy Stanley DO 1 [facility] [place] [address] [place] [address] PCP - General Family Medicine 07/13/18 documented as of this encounter
--- OUTSIDE RECORDS SUMMARY | 2023-07-21 23:38 | External Medical Summary | Summary of Care ---
Author Name Unknown Organization [facility] Address [address] [facility] [place] [address] Phone [phone] Care Team Providers Care Book Illustrator Name Role Phone Lizeth Endy Morgan SUMNER Primary Care Provider +1 [phone] Reason for Visit * Reason Onset Date Comments Follow Up 07/09/2023 Encounter Details Date Type Department Care Team (Late st Contact Info) Description 07/09/2023 Telephone Gastroenterology, [facility] [address] [place] [address] Hilda Calvert DO [address] [place] [address] Follow Up Allergies Active Allergy Reactions Criticality [...] suspected opioid overdose. Seek immediate medical attention. [email or web address]?v= [email or web address] 0 Active Prochlorperazine Maleate 5 MG Oral [...] were not included. "Hilda Calvert, DO to [facility] Nurse Pool/Class 07/11/23 9:43 AM She is not a candidate for any IR procedures. Can adjust paracentesis orders to twice weekly 10 L max." Pended please review / sign. Then we can fax to [facility]. The albumin I pended is [...] 2:19 PM EST Hilda Calvert, DO to [facility] Nurse Pool/Class 07/09/23 11:23 AM I am going to discuss with IR today from [place] if she is a candidate for any [...] often than what is ordered. I called [facility] to see if I could get the dates of all her last recent paracentesis. I can not see them in our system. Dr Kannan EVERETT. I am not sure if you can see all the last dates. * Telephone Encounter - Shobha Wen LPN - 07/09/2023 10:37 AM EST Received a call from IR at [facility]. This pt was giving them [...] week) Please clarify and fax orders to [phone] Nurse number if need to call is : [phone]( back line) documented in this encounter Plan of Treatment Upcoming Encounters Date Type Department Care Team (Late st Contact Info) Description 07/15/2023 2:00 PM EST Office Visit Hepatology, [facility] [address] [place] [address] Hilda Calvert DO [address] [place] [address] 08/12/2023 12:30 PM EST Laboratory Laboratory, [place] [address] [facility] [phone] [place], Laboratory [address] [place] [address] 08/19/2023 12:30 PM EST Office Visit Hematology/Oncology [facility] [address] [facility] [place] [address] Sandra Evans MD [address] [facility] [place] [address] Health Maintenance Due Date Last Done Comments [...] 5:16 PM 10/17/2007 5:01 PM Care Teams Book Illustrator Relationship Specialty Start Date End Date Endy Stanley DO 1 [facility] [address] [place] [address] [place] [address] PCP - General Family Medicine 07/13/18 documented as of this encounter
--- OUTSIDE RECORDS SUMMARY | 2023-07-21 23:38 | External Medical Summary | Summary of Care ---
Author Name Unknown Organization [facility] Address [address] [facility] [place] [address] Phone [phone] Care Team Providers Care Pad Assembler Name Role Phone Lizeth Endy Morgan SUMNER Primary Care Provider +1 [phone] Reason for Visit * Reason Onset Date Comments Follow Up 07/09/2023 Encounter Details Date Type Department Care Team (Late st Contact Info) Description 07/09/2023 Telephone Gastroenterology, [facility] [address] [place] [address] Hilda Calvert DO [address] [place] [address] Follow Up Allergies Active Allergy Reactions Criticality [...] suspected opioid overdose. Seek immediate medical attention. [email or web address]?v= [email or web address] 0 Active Prochlorperazine Maleate 5 MG Oral [...] were not included. "Hilda Calvert, DO to [facility] Nurse Pool/Class 07/11/23 9:43 AM She is not a candidate for any IR procedures. Can adjust paracentesis orders to twice weekly 10 L max." Pended please review / sign. Then we can fax to [facility]. The albumin I pended is for 25G [...] 2:19 PM EST Hilda Calvert, DO to [facility] Nurse Pool/Class 07/09/23 11:23 AM I am going to discuss with IR today from [place] if she is a candidate for any [...] often than what is ordered. I called [facility] to see if I could get the dates of all her last recent paracentesis. I can not see them in our system. Dr Kannan EVERETT. I am not sure if you can see all the last dates. * Telephone Encounter - Shobha Wen LPN - 07/09/2023 10:37 AM EST Received a call from IR at [facility]. This pt was giving them a hard [...] week) Please clarify and fax orders to [phone] Nurse number if need to call is : [phone]( back line) documented in this encounter Plan of Treatment Upcoming Encounters Date Type Department Care Team (Late st Contact Info) Description 07/15/2023 2:00 PM EST Office Visit Hepatology, [facility] [address] [place] [address] Hilda Calvert DO [address] [place] [address] 08/12/2023 12:30 PM EST Laboratory Laboratory, [place] [address] [facility] [phone] [place], Laboratory [address] [place] [address] 08/19/2023 12:30 PM EST Office Visit Hematology/Oncology [facility] [address] [facility] [place] [address] Sandra Evans MD [address] [facility] [place] [address] Health Maintenance Due Date Last Done Comments [...] 5:16 PM 10/17/2007 5:01 PM Care Teams Pad Assembler Relationship Specialty Start Date End Date Endy [place] DO 1 [facility] [place] [address] [place] [address] PCP - General Family Medicine 07/13/18 documented as of this encounter
--- OUTSIDE RECORDS SUMMARY | 2023-07-21 23:39 | External Medical Summary | Summary of Care ---
Author Name Unknown Organization [facility] Address [address] [facility] [place] [address] Phone [phone] Care Team Providers Care Sales Special Agent Name Role Phone Lizeth Endy Morgan SUMNER Primary Care Provider [phone] [phone] Reason for Visit * Reason Onset Date Comments Appointment 07/04/2023 hepatology Encounter Details Date Type Department Care Team (Late st Contact Info) Description 07/04/2023 Telephone Gastroenterology, [facility] [address] [place] [address] Hilda Calvert DO [address] [place] [address] Appointment (hepatology) Allergies Active Allergy Reactions Criticality Noted Date Comments Codeine Hives 07/18/2012 Metformin Abdominal pain Low 03/30/2013 documented as of this encounter (statuses as of 07/07/2023) Medications Medication Sig Dispensed Refills Start Date [...] suspected opioid overdose. Seek immediate medical attention. [email or web address]?v=[email or web address] 0 Active Prochlorperazine Maleate 5 MG Oral [...] as of this encounter (statuses as of 07/07/2023) Active Problems Problem Noted Date Diagnosed Date [...] as of this encounter (statuses as of 07/07/2023) Resolved Problems Problem Noted Date Diagnosed Date [...] as of this encounter (statuses as of 07/07/2023) Immunizations Name Administration Dates Next Due H1N1 [...] encounter Miscellaneous Notes * Telephone Encounter - Kendrick Richey OSA - 07/07/2023 12:38 PM EST 07/15 appt franchesca'd w/ Enrike * Telephone Encounter - Kendrick Richey OSA - 07/04/2023 12:33 PM EST Pt was to be seen in clinic on 07/03 for hepatology f/u. Appt was cx'd because she [facility] inpt [facility] for altered [facility] status. [facility] called to schedule f/u appt, nothing available until October 2023. Please review and advise on scheduling. documented in this encounter Plan of Treatment Upcoming Encounters Date Type Department Care Team (Late st Contact Info) Description 07/15/2023 2:00 PM EST Office Visit Hepatology, [facility] [address] [place] [address] Hilda Calvert DO [address] [place] [address] 08/12/2023 12:30 PM EST Laboratory Laboratory, [place] [address] [place] [address] [place], [facility] [address] [place] [address] 08/19/2023 12:30 PM EST Office Visit Hematology/Oncology [facility] [place] [address] Sandra Evans MD [address] [facility] [place] [address] Health Maintenance Due Date Last Done Comments [...] 5:16 PM 10/17/2007 5:01 PM Care Teams Sales Special Agent Relationship Specialty Start Date End Date Endy [place] DO [address] [place] [address] [place] [address] PCP - General Family Medicine 07/13/18 documented as of this encounter
--- OUTSIDE RECORDS SUMMARY | 2023-07-21 23:39 | External Medical Summary | Summary of Care ---
Author Name Unknown Organization [facility] Address [address] [facility] [place] [address] Phone [phone] Care Team Providers Care Enrichment Director Name Role Phone Lizeth Endy Morgan SUMNER Primary Care Provider +1 -[phone] Reason for Visit * Reason Onset Date Comments Follow Up 07/09/2023 Encounter Details Date Type Department Care Team (Late st Contact Info) Description 07/09/2023 Telephone Gastroenterology, [facility] [address] [place] [address] Hilda Calvert DO [address] [place] [address] Follow Up Allergies Active Allergy Reactions Criticality [...] suspected opioid overdose. Seek immediate medical attention. [email or web address]?v= [email or web address] 0 Active Prochlorperazine Maleate 5 MG Oral [...] encounter Miscellaneous Notes * Addendum Note - Lisa Westfall RN - 07/11/2023 9:58 AM ESTAddended by: LISA WESTFALL on: 07/11/2023 09:58 AM Modules accepted: Orders * Telephone Encounter - Lisa Westfall RN - 07/11/2023 9:56 AM EST Images from the original note were not included. "Hilda Calvert, DO to [facility] Nurse [place]/Class 07/11/23 9:43 AM She is not a candidate for any IR procedures. Can adjust paracentesis orders to twice weekly 10 L max." Pended please review / sign. Then we can fax to [facility]. The albumin I pended is for 25G before and after paracentesis . I was not sure if you wanted this or a different albumin order. * Telephone Encounter - Shobha Wen LPN - 07/11/2023 9:24 AM EST Pt calling in asking about her paracentesis. Pt asking about whether Dr iftzpatrick had reached out to Dr Calvert regarding [...] - 07/09/2023 2:19 PM EST Hilda Calvert, to [facility] Nurse Pool/Class 07/09/23 11:23 AM I am going to discuss with IR today from [place] if she is a candidate for any procedures to reduce the ascites though she is very high risk for these. If they dont think she's a candidate and she needs them twice weekly we may do that but I want to discuss with them first. Hilda Calvert, ." Pt calling in . I relayed [...] often than what is ordered. I called [facility] to see if I could get the dates of all her last recent paracentesis. I can not see them in our system. Dr Kannan EVERETT. I am not sure if you can see all the last dates. * Telephone Encounter - Shobha Wen LPN - 07/09/2023 10:37 AM EST Received a call from IR at [facility]. This pt was giving them a hard [...] week) Please clarify and fax orders to [phone] Nurse number if need to call is : [phone]( back line) documented in this encounter Plan of Treatment Upcoming Encounters Date Type Department Care Team (Late st Contact Info) Description 07/15/2023 2:00 PM EST Office Visit Hepatology, [facility] [address] [place] [address] Hilda Calvert, [address] [place] [address] 08/12/2023 12:30 PM EST Laboratory Laboratory, [place] [address] [facility] [phone] [place], Laboratory [address] [place] [facility] [place] [address] 08/19/2023 12:30 PM EST Office Visit Hematology/Oncology [facility] [place] [address] [facility] [place] [address] Sandra Evans MD [address] [facility] [place] [address] Health Maintenance Due Date Last Done Comments [...] 5:16 PM 10/17/2007 5:01 PM Care Teams Enrichment Director Relationship Specialty Start Date End Date Endy Stanley DO [address] [place] [address] [place] [address] PCP - General Family Medicine 07/13/18 documented as of this encounter
--- OUTSIDE RECORDS SUMMARY | 2023-07-21 23:39 | External Medical Summary | Summary of Care ---
Author Name Unknown Organization [facility] Address [address] [facility] [place] [address] Phone [phone] Care Team Providers Care Liability Claims Manager Name Role Phone Lizeth Endy Morgan SUMNER Primary Care Provider +1 [phone] Reason for Visit * Reason Onset Date Comments Follow Up 07/09/2023 Encounter Details Date Type Department Care Team (Late st Contact Info) Description 07/09/2023 Telephone Gastroenterology, [facility] [address] [place] [address] Hilda Calvert DO [address] [place] [address] Follow Up Allergies Active Allergy Reactions Criticality [...] suspected opioid overdose. Seek immediate medical attention. [email or web address]?v=[email or web address] 0 Active Prochlorperazine Maleate 5 MG Oral [...] Please advise. * Telephone Encounter - Darling Zelaya RN - 07/09/2023 2:19 PM EST Hilda Calvert, DO to [facility] Nurse [place]/Class 07/09/23 11:23 AM I am going to discuss with IR today from [place] if she is a candidate for any [...] those records * Telephone Encounter - Darling Zelaya RN - 07/09/2023 10:55 AM EST I [...] often than what is ordered. I called [facility] to see if I could get the dates of all her last recent paracentesis. I can not see them in our system. Dr Kannan EVERETT. I am not sure if you can see all the last dates. * Telephone Encounter - Shobha Wen LPN - 07/09/2023 10:37 AM EST Received a call from IR at [facility]. This pt was giving them [...] week) Please clarify and fax orders to [phone] Nurse number if need to call is : [phone]( back line) documented in this encounter Plan of Treatment Upcoming Encounters Date Type Department Care Team (Late st Contact Info) Description 07/15/2023 2:00 PM EST Office Visit Hepatology, [facility] [address] [place] [address] Hilda Calvert DO [address] [place] [address] 08/12/2023 12:30 PM EST Laboratory Laboratory, [place] [address] [place] [phone] [place], Laboratory [address] [place] [address] 08/19/2023 12:30 PM EST Office Visit Hematology/Oncology [facility] [address] [place] [address] Sandra Evans MD 200 [facility] [place] [address] Health Maintenance Due Date Last Done Comments [...] 5:16 PM 10/17/2007 5:01 PM Care Teams Liability Claims Manager Relationship Specialty Start Date End Date Endy Stanley DO [address] [place] [address] [place] [address] PCP - General Family Medicine 07/13/18 documented as of this encounter
--- OUTSIDE RECORDS SUMMARY | 2023-07-21 23:39 | External Medical Summary ---
[...] and Psychiatric Symptoms: None Current Ability: Bathing: able to partic ipate in bathing self in shower or tub, but requires presence of another person throughout the bath for assistance or supervision. Current Ability: Ambulation: Requires us e of a two-handed device (e.g., walker or crutches) to walk alone on a level surface and/or requires human supervision or assistance to negotiate stairs or steps or uneven surfaces. 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
--- OUTSIDE RECORDS SUMMARY | 2023-07-21 23:39 | External Medical Summary | Summary of Care ---
Author Name Unknown Organization [facility] Address [address] [place] [address] Phone [phone] Care Team Providers Care Physician Anesthesiologist Name Role Phone Endy Stanley Primary Care Provider +1 [phone] Reason for Visit * Reason Onset Date Comments Advice 07/09/2023 Encounter Details Date Type Department Care Team (Late st Contact Info) Description 07/09/2023 Telephone Interventional Radiology [facility], [facility] [address] [place] [address] José Noble MD [address] [place] [address] Advice Allergies Active Allergy Reactions Criticality Noted Date Comments Codeine Hives 07/18/2012 Metformin Abdominal pain Low 03/30/2013 documented as of this encounter (statuses as of 07/09/2023) Medications Medication Sig Dispensed Refills Start Date [...] suspected opioid overdose. Seek immediate medical attention. [email or web address]://[email or web address]/watch?v=[email or web address] 0 Active Prochlorperazine Maleate 5 MG Oral [...] as of this encounter (statuses as of 07/09/2023) Active Problems Problem Noted Date Diagnosed Date [...] as of this encounter (statuses as of 07/09/2023) Resolved Problems Problem Noted Date Diagnosed Date [...] as of this encounter (statuses as of 07/09/2023) Immunizations Name Administration Dates Next Due H1N1 [...] encounter Miscellaneous Notes * Telephone Encounter - Nighat Fields, RN - 07/09/2023 2:41 PM EST Pt calling [facility] IR very upset, stating that [facility] told her that she isn't able to come twice weekly despite filling with 8-9 L fluid every few days. Pt mentioned that she had seen Dr José Nbole about a possible TIPS procedure but has not heard back. Pt's concerns and phone number relayed to Dr José Noble who will call patientback later today. documented in this encounter Plan of Treatment Upcoming Encounters Date Type Department Care Team (Late st Contact Info) Description 07/15/2023 2:00 PM EST Office Visit Hepatology, [facility] [address] [place] [address] Hilda Calvert DO [address] [place] [address] 08/12/2023 12:30 PM EST Laboratory Laboratory, [place] [address] [facility] [address] [place], Laboratory [address] [facility] [place] [address] 08/19/2023 12:30 PM EST Office Visit Hematology/Oncology [facility] [place] 200 [facility] [place] [address] Sandra Evans MD [address] [place] [address] Health Maintenance Due Date Last Done Comments [...] 5:16 PM 10/17/2007 5:01 PM Care Teams Physician Anesthesiologist Relationship Specialty Start Date End Date Endy Stanley DO [address] [place] [address] [place] [address] PCP - General Family Medicine 07/13/18 documented as of this encounter
--- OUTSIDE RECORDS SUMMARY | 2023-07-21 23:39 | External Medical Summary | Summary of Care ---
Author Name Unknown Organization [facility] Address [address] [facility] [place] [address] Phone [phone] Care Team Providers Care Umbrella Tipper Machine Name Role Phone Lizeth Endy Morgan SUMNER Primary Care Provider [phone] Reason for Visit * Reason Onset Date Comments Follow Up 07/09/2023 Encounter Details Date Type Department Care Team (Late st Contact Info) Description 07/09/2023 Telephone Gastroenterology, [facility] [address] [place] [address] Hilda Calvert DO [address] [place] [address] Follow Up Allergies Active Allergy Reactions Criticality Noted Date Comments Codeine Hives 07/18/2012 Metformin Abdominal pain Low 03/30/2013 documented as of this encounter (statuses as of 07/10/2023) Medications Medication Sig Dispensed Refills Start Date [...] suspected opioid overdose. Seek immediate medical attention. [email or web address] Active Prochlorperazine Maleate 5 MG Oral [...] as of this encounter (statuses as of 07/10/2023) Active Problems Problem Noted Date Diagnosed Date [...] as of this encounter (statuses as of 07/10/2023) Resolved Problems Problem Noted Date Diagnosed Date [...] as of this encounter (statuses as of 07/10/2023) Immunizations Name Administration Dates Next Due H1N1 [...] RN - 07/09/2023 2:19 PM EST Hilda Calvert DO to [facility] Nurse Pool/Class 07/09/23 11:23 AM I am going to discuss with IR today from [place] if she is a candidate for any procedures to reduce the ascites though she is very high risk for these. If they dont think she's a candidate and she needs them twice weekly we may do that but I want to discuss with them first. Hilda Calvert DO." Pt calling in . I relayed [...] often than what is ordered. I called [facility] to see if I could get the dates of all her last recent paracentesis. I can not see them in our system. Dr Kannan EVERETT. I am not sure if you can see all the last dates. * Telephone Encounter - Shobha Wen LPN - 07/09/2023 10:37 AM EST Received a call from IR at [facility]. This pt was giving them a [...] week) Please clarify and fax orders to [phone] Nurse number if need to call is : [phone]( back line) documented in this encounter Plan of Treatment Upcoming Encounters Date Type Department Care Team (Late st Contact Info) Description 07/15/2023 2:00 PM EST Office Visit Hepatology, [facility] [address] [place] [address] Hilda Calvert DO [address] [place] [address] 08/12/2023 12:30 PM EST Laboratory Laboratory, [place] [address] [place] [id number] [place], Laboratory [address] [place] [address] 08/19/2023 12:30 PM EST Office Visit Hematology/Oncology [facility] [address] [facility] [place] [address] Sandra Evans MD [address] [facility] [address] Health Maintenance Due Date Last Done Comments [...] 5:16 PM 10/17/2007 5:01 PM Care Teams U[employer]rella Tipper Machine Relationship Specialty Start Date End Date Endy Stanley DO [address] [place] [address] [place] [address] PCP - General Family Medicine 07/13/18 documented as of this encounter
--- OUTSIDE RECORDS SUMMARY | 2023-07-21 23:39 | External Medical Summary | Summary of Care ---
Author Name Unknown Organization [facility] Address [address] [facility] [place] [address] Phone [phone] Care Team Providers Care Motor Patrol Operator Name Role Phone Lizeth Endy Morgan SUMNER Primary Care Provider [phone] Encounter Details Date Type Department Care Team (Late st Contact Info) Description 07/07/2023 Result Scan Unspecified Department Hilda Calvert DO [address] [place] [address] <No scans attached> Allergies Active Allergy Reactions Criticality Noted Date Comments Codeine Hives 07/18/2012 Metformin Abdominal pain Low 03/30/2013 documented as of this encounter (statuses as of 07/08/2023) Medications Medication Sig Dispensed Refills Start Date [...] overdose. Seek immediate medical attention. [email or web address]?[email or web address] Active Prochlorperazine Maleate 5 MG Oral [...] as of this encounter (statuses as of 07/08/2023) Active Problems Problem Noted Date Diagnosed Date [...] as of this encounter (statuses as of 07/08/2023) Resolved Problems Problem Noted Date Diagnosed Date [...] as of this encounter (statuses as of 07/08/2023) Immunizations Name Administration Dates Next Due H1N1 [...] Visit [facility]at[facility], [facility] [address] [facility] [address] Hilda Calvert DO [address] [place] [address] 08/12/2023 12:30 PM EST Laboratory [facility], [place] [address] [facility] [phone] [place], Laboratory [address] [place] [address] 08/19/2023 12:30 PM EST Office Visit Hematology/Oncology [facility] [address] [facility] [address] Sandra Evans MD [address] [facility] [place] [address] Health Maintenance Due Date Last Done Comments [...] Date/Time Associated Diagnosis Comments RADIOLOGY SCANNED RESULT 07/07/2023 documented in this encounter Results * RADIOLOGY SCANNED RESULT (07/07/2023) 07/07/2023 Hilda Calvert DO [facility] documented in this encounter Advance Directives Latest Code Status on File Code Status Date Activated Date Inactivated Comments Full Code 10/15/2007 5:16 PM 10/17/2007 5:01 PM Care Teams Motor Patrol Operator Relationship Specialty Start Date End Date Endy Stanley DO [address] [place] [address] PCP - General Family Medicine 07/13/18 documented as of this encounter
[2023-07-22] MEDS ORDERED: BUTALBITAL/ACETAMIN/CAFFEINE TAB PO PRN (00:19)
[2023-07-22] MEDS ORDERED: SUCRALFATE 1 GM TAB PO PRN (00:19)
[2023-07-22] MEDS ORDERED: hydrOXYzine HCl 10 MG TAB PO PRN (00:19)
[2023-07-22] MEDS ORDERED: IPRATROPIUM BROMIDE/ALBUTEROL respimat INH INH PRN (00:19)
[2023-07-22 01:17] LABS: Creatine Kinase 916 U/L (26-192)
[2023-07-22] MEDS: ALBUMIN 25% 25 GM/100 ML VIAL IV SCH ×3 (01:23→17:46)
[2023-07-22 01:52] LABS: Appearance Urine Cloudy (Clear); Bilirubin Urine Negative (Negative); Blood Urine Negative (Negative); Color Urine Dark Yellow; Epithelial Cell Urine Auto >30 /lpf (0-5); Glucose Urine UA Negative (Negative); Ketones Urine Negative (Negative); Leukocyte Esterase Urine Negative (Negative); Nitrite Urine Negative (Negative); Protein Urine Negative (Negative); RBC Urine Automated 0-4 /hpf (0-4); Specific Gravity Urine 1.014 (1.000-1.030); Urobilinogen Urine Negative (Negative)
[2023-07-22 02:09] LABS: Creatinine Urine Random 115.9 mg/dl
[2023-07-22 02:22] LABS: Bacteria Urine Automated 4+ (Negative); Calcium Oxalate Crystals Urine Present (None Prsent)
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
[2023-07-22 03:41] LABS: Hematocrit (blood only) 22.5 % (37.0-47.0); Hemoglobin 7.1 g/dl (12.0-16.0); Mean Corpuscular Hemoglobin 27.2 pg (25.0-34.0); Mean Corpuscular Hgb Conc 31.6 g/dL (32.0-36.0); Mean Corpuscular Volume 86.2 fL (80.0-100.0); Platelet Count 59 K/uL (130-400); RDW Coefficient of Variation 18.1 % (11.5-14.5); RDW Standard Deviation 57.5 fL (36.4-46.3); Red Blood Count 2.61 M/uL (4.20-5.40); White Blood Count 3.06 K/ul (4.8-10.8)
[2023-07-22 03:57] LABS: Albumin Level 3.1 gm/dl (3.4-5.0); Bilirubin Direct 0.5 mg/dl (0-0.2); Bilirubin,Total 1.4 mg/dl (0.2-1.0); Calcium 8.4 mg/dl (8.6-10.3); Est GFR (African American) 27.6 ml/min; Est GFR (Non-African American) 23.9 ml/min; Phosphorus 5.5 mg/dl (2.5-4.9); Potassium 4.6 mmol/L (3.5-5.1); Total Protein 5.3 gm/dl (6.0-8.3)
[2023-07-22] MEDS: LEVOTHYROXINE SODIUM 150 MCG TABLET PO SCH (06:45)
[2023-07-22] MEDS: HEPARIN SOD 5,000 UNIT/0.5 ML VIAL SQ SCH ×3 (06:45→22:54)
[2023-07-22] MEDS: rOPINIRole HCL 2 MG TABLET PO SCH ×3 (09:37→20:18)
[2023-07-22] MEDS: rifAXIMin 550 MG TABLET PO SCH ×2 (09:38→20:17)
[2023-07-22] MEDS: PANTOprazole 40 MG TAB PO SCH (09:38)
[2023-07-22] MEDS: MAGNESIUM OXIDE 400 MG TAB PO SCH ×2 (09:38→20:18)
[2023-07-22] MEDS: FAMOTIDINE 20 MG TAB PO SCH (09:39)
[2023-07-22] MEDS: ESCITALOPRAM OXALATE 10 MG TAB PO SCH (09:39)
[2023-07-22] MEDS: LACTULOSE SYRUP 20 GM/30 ML UDC PO SCH ×4 (09:39→20:17)
--- NOTE | 2023-07-22 10:53 | Ultrasound Report ---
RENAL ULTRASOUND CLINICAL HISTORY: Acute kidney injury. COMPARISON STUDY: CT of the abdomen and pelvis June 15, 2023. TECHNIQUE: Sonography of the kidneys and the urinary bladder was performed. FINDINGS: Moderate ascites and cirrhosis are incidentally noted. The right kidney measures 9.5 cm in maximal dimension. There is no right hydronephrosis. The left kidney is partially obscured and diffic ult to measure however there is no left hydronephrosis. No renal calculi or masses are identified by sonography. Bladder was collapsed. IMPRESSION: 1. No hydronephrosis. Left kidney partially obscured no sonographic abnormality identified. 2. Cirrhosis with moderate ascites. ACT 112: Negative or not required by law. Electronically signed by: Guero Garcia M.D. 07/22/2023 10:51 AM
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
--- NOTE | 2023-07-22 13:56 | Electrocardiogram Report ---
Test Reason : Blood Pressure : / mmHG Vent. Rate : 058 BPM Atrial Rate : 058 BPM P-R Int : 140 ms QRS Dur : 090 ms QT Int : 500 ms P-R-T Axes : 046 030 021 degrees QTc Int : 492 ms Sinus bradycardia Low voltage QRS Prolonged QT Abnormal ECG When compared with ECG of 04-JUL-2023 09:28, No significant change was found Confirmed by Rafal Barrera ([id number]) on 07/22/2023 1:56:43 PM Referred By: REFERRED SELF Confirmed By:Adi Barrera
[2023-07-22] MEDS: oxyCODONE HCL IR 5 MG TAB (IMMEDIATE RELEASE) PO PRN ×2 (15:16→21:26)
[2023-07-22] MEDS: IPRATROPIUM BROMIDE HFA INHALER INH PRN (15:19)
[2023-07-22] MEDS: ALBUTEROL HFA 8 GM INHALER INH PRN (15:20)
--- NOTE | 2023-07-22 16:23 | Hospitalist Progress Note ---
Date of Service July 22, 2023 Assessment & Plan (1) JOANNA (acute kidney injury): Plan: 42yo medically complex female with history of NAFLD, liver cirrhosis presenting with increased somnolence. Nephrology evaluation feels she has serology consistent with hepatorenal syndrome type I-could have been precipitated from paracentesis without albumin repletion. Holding diuretics at this point in time. No indication for renal replacement therapy. Nephrology has initiated albumin 25 3 times daily at this point time for 48 hours. No focal signs and symptoms of infection at consider SBP or other etiologies to precipitate her hepatic encephalopathy with marked elevation of ammonia on presentation. -Hold diuretics - Bumex and Spironolactone -Hold Potassium supplement Persistent mild hyponatremia -Volume expansion with 25% Albumin q 8 hours (2) Hyperammonemia: Plan: Patient reports compliance with her Lactulose and Xifaxan -Lactulose QID - titrate to 2-3 soft BMs daily -Continue Xifaxan 550mg po BID (3) 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: Plan: Chronic. Concern for hepatorenal syndrome as above. Patient with persistent ascites. Elevated ammonia level. -Continue Xifaxan and Lactulose -Holding diuretics as above -Patient may need to have a paracentesis while admitted, however, would hold off for now pending improvement in renal function -Continue Sucralfate -Continue Pepcid -Protonix 40mg po daily while admitted (4) Hypothyroidism: Plan: Chronic. Stable -Continue Synthroid F/E/N- Volume expansion with IV Albumin, monitor electrolytes and renal function, Low K/CC diet as tolerated Ppx - Heparin 5000u q 8 Code - Full per discussion with patient Dispo -Admit to medical with telemetry Admission and Anticipated Discharge Date Admission Date: July 21, 2023 Subjective Patient much more awake than what was described. Patient has massive ascites and lower extremity edema with weeping of fluid from her previous paracentesis site. However patient has developed progressive renal dysfunction appears to be in hepatorenal syndrome type I at this time she is being followed by nephrology for assistance to manage volume balance. Physical Exam Physical Exam: Awake and appropriate. Asking for pain medications. Massive ascites with distended abdomen and 2-3+ edema to her legs with weeping of fluid from her lower extremities Results & Data Results & Data Vital Signs (Past 12 Hours) Vital Signs Temp Pulse Pulse Resp BP Pulse Ox O2 Del Method 07/22/23 15:25 98.8 F 90 16 139/77 98 Room Air 07/22/23 15:20 99 H 16 98 Room Air 07/22/23 09:43 89 18 129/74 98 Room Air 07/22/23 08:55 78 07/22/23 07:48 98.2 F 86 25 H 117/66 98 Room Air Laboratory Results Reviewed CBC reviewed chemistry reviewed LFTs PG Care Time/CCT Total # of Minutes Spent Total Time Spent with Patient: Total time spent is greater than 50% in coordination of care (as documented) at patient's floor/unit and/or counseling patient: Coding Level of Care Code 20097 SUB INP/OBS CARE 3/50MIN Diagnoses JOANNA (acute kidney injury) N17.9 Hyperammonemia E72.20 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
[2023-07-22 16:51] LABS: BUN Creatinine Ratio 22.2 (10-20); Calcium 9.2 mg/dl (8.6-10.3); Creatinine Clr Calc Pharmacy 56.5 ml/min; Est GFR (African American) 43.3 ml/min; Est GFR (Non-African American) 37.4 ml/min; Potassium 4.4 mmol/L (3.5-5.1)
[2023-07-22] MEDS: ALPRAZolam 0.5 MG TABLET PO PRN (21:26)
[2023-07-22] MEDS: ONDANSETRON INJ 2 MG/ML 2 ML VIAL IV PRN (21:42)
[2023-07-23] MEDS: ALBUMIN 25% 25 GM/100 ML VIAL IV SCH ×3 (01:57→17:58)
[2023-07-23] MEDS: ALBUTEROL HFA 8 GM INHALER INH PRN ×2 (02:21→08:07)
[2023-07-23 02:47] LABS: Appearance Urine Clear (Clear); Bilirubin Urine Negative (Negative); Blood Urine Negative (Negative); Color Urine Yellow; Glucose Urine UA Negative (Negative); Ketones Urine Negative (Negative); Leukocyte Esterase Urine Negative (Negative); Nitrite Urine Negative (Negative); Protein Urine Negative (Negative); Specific Gravity Urine 1.014 (1.000-1.030); Urobilinogen Urine Negative (Negative); pH Urine 5.5 (4.5-7.5)
[2023-07-23 03:31] LABS: Total Protein Urine Random 5.5 mg/dl (0-11.9)
[2023-07-23] MEDS: oxyCODONE HCL IR 5 MG TAB (IMMEDIATE RELEASE) PO PRN ×3 (03:40→19:46)
[2023-07-23 05:00] LABS: Creatinine Urine Random 76.4 mg/dl; Protein Creatinine Ratio Urine 0.1 (0-0.2)
[2023-07-23] MEDS: HEPARIN SOD 5,000 UNIT/0.5 ML VIAL SQ SCH ×3 (06:16→21:26)
[2023-07-23 06:29] LABS: Hematocrit (blood only) 23.5 % (37.0-47.0); Hemoglobin 7.5 g/dl (12.0-16.0); Mean Corpuscular Hemoglobin 27.1 pg (25.0-34.0); Mean Corpuscular Hgb Conc 31.9 g/dL (32.0-36.0); Mean Corpuscular Volume 84.8 fL (80.0-100.0); Mean Platelet Volume 9.8 fL (9.4-12.4); Platelet Count 77 K/uL (130-400); RDW Coefficient of Variation 18.4 % (11.5-14.5); Red Blood Count 2.77 M/uL (4.20-5.40); White Blood Count 4.38 K/ul (4.8-10.8)
[2023-07-23 06:52] LABS: Albumin Globulin Ratio 1.9 (0.9-2); BUN Creatinine Ratio 22.9 (10-20); Bilirubin,Total 1.5 mg/dl (0.2-1.0); Calcium 8.9 mg/dl (8.6-10.3); Est GFR (African American) 58.1 ml/min; Est GFR (Non-African American) 50.1 ml/min; Globulin 2.1 gm/dl (2.5-4.0); Total Protein 6.1 gm/dl (6.0-8.3)
[2023-07-23] MEDS: IPRATROPIUM BROMIDE HFA INHALER INH PRN (08:10)
--- NOTE | 2023-07-23 08:40 | Nephrology Progress Note ---
Date of Service July 23, 2023 Assessment & Plan (1) JOANNA (acute kidney injury): (2) Hyperammonemia: Plan JOANNA improving following correction of hypotension and administration of colloid. Blood cultures are NGTD. Urine culture + for Kayla. Patient is asymptomatic and does not require therapy at this time. Continue IV albumin 25 g TID. Patient has already received 4/6 doses. No indication for IV fluid bolus, Midodrine & Octreotide at this time. Electrolyte balance remains acceptable. Consider consultation w/ VIR to determine whether patient can have low volume paracentesis (< 3L) on a scheduled basis or place a peritoneal drain for daily vascitic fluid removal. Consultation with VIR and transplant service for possible TIPS may be beneficial as well. Ideally would postpone paracentesis until creatinine fully corrects, however, if volume removal is necessary for comfort recommend 3L or less to be removed followed by 25g IV albumin TID x 3 doses and close monitoring of kidney function. No further Nephrology evaluation indicated at this time. Will sign off. Please call if further assistance is needed. Admission and Anticipated Discharge Date Admission Date: July 21, 2023 Subjective Mrs. Gutiérrez was evaluated in her hospital room this morning. She c/o abdominal discomfort related to ascites. She denied fever, dysuria, uremic symptoms Review of Systems Constitutional: no fever Eyes: no worsening vision Ear, Nose, Mouth, Throat: no problem reported Respiratory: no cough and no dyspnea Cardiovascular: no chest pain Gastrointestinal: no abdominal pain, no nausea, no vomiting and no diarrhea/loose stools Genitourinary: no dysuria and no hematuria Physical Exam Constitutional: + ill appearing Eyes: PERRL, conjunctivae normal, anicteric sclerae ENMT: external ear and nose normal, oropharynx normal Neck: trachea midline, no thyromegaly Respiratory: normal respiratory effort, lungs clear to auscultation Cardiovascular: Rate/Rhythm: regular rate and regular rhythm Extremities: + edema (3+ LE swelling) Gastrointestinal (Abdomen): Inspection/Auscultation: + abdomen distended and + hypoactive bowel sounds Percussion/Palpation: abdomen soft, + ascites and + fluid wave; abdomen nontender and no guarding Neurologic: Speech / Cognition: normal speech and normal cognition Results & Data Vital Signs (Past 12 Hours) Vital Signs Temp Pulse Pulse Resp BP BP Pulse Ox 07/23/23 08:10 87 18 99 07/23/23 08:06 07/23/23 07:52 37.0 C 89 20 143/85 H 95 07/23/23 07:51 96 H 07/23/23 02:22 88 18 94 07/23/23 02:15 07/23/23 02:15 89 07/23/23 01:58 36.7 C 89 16 131/78 96 07/23/23 01:00 98 07/23/23 01:00 07/23/23 00:56 96 07/23/23 00:56 155/80 H 07/23/23 00:12 91 07/22/23 23:00 96 07/22/23 22:00 96 07/22/23 21:17 164/70 H 07/22/23 21:17 98 Pulse Ox O2 Del Method 07/23/23 08:10 Room Air 07/23/23 08:06 Room Air 07/23/23 07:52 Room Air 07/23/23 07:51 07/23/23 02:22 Room Air 07/23/23 02:15 Room Air 07/23/23 02:15 07/23/23 01:58 Room Air 07/23/23 01:00 07/23/23 01:00 97 07/23/23 00:56 07/23/23 00:56 07/23/23 00:12 07/22/23 23:00 07/22/23 22:00 07/22/23 21:17 07/22/23 21:17 Laboratory Results Laboratory Results - last 24 hr 07/22/23 07/23/23 07/23/23 16:03 02:40 06:05 WBC 4.38 L RBC 2.77 L Hgb 7.5 L Hct 23.5 L MCV 84.8 MCH 27.1 MCHC 31.9 L RDW Std Deviation 57.0 H RDW Coeff of Henna 18.4 H Plt Count 77 L MPV 9.8 Sodium 133 L 133 L Potassium 4.4 4.0 Chloride 97 L 99 Carbon Dioxide 28 29 Anion Gap 8 5 BUN 37 H 30 H Creatinine 1.67 H D 1.31 H D Est Cr Clr Drug Dosing 56.5 69.0 Est GFR ( Amer) 43.3 58.1 Est GFR (Non-Af Amer) 37.4 50.1 BUN/Creatinine Ratio 22.2 H 22.9 H Glucose 129 H 125 H Calcium 9.2 8.9 Total Bilirubin 1.5 H AST 76 H ALT 31 Alkaline Phosphatase 56 Ammonia 77.0 H Total Protein 6.1 Albumin 4.0 Globulin 2.1 L Albumin/Globulin Ratio 1.9 Urine Color Yellow Urine Appearance Clear Urine pH 5.5 Ur Specific [place] 1.014 Urine Protein Negative Urine Glucose (UA) Negative Urine Ketones Negative Urine Blood Negative Urine Nitrite Negative Urine Bilirubin Negative Urine Urobilinogen Negative Ur Leukocyte Esterase Negative Ur Random Creatinine 76.4 U Random Total Protein 5.5 Protein/Creatinin Ratio 0.1 PG Care Time/CCT Total # of Minutes Spent Total Time Spent with Patient: Total time spent is greater than 50% in coordination of care (as documented) at patient's floor/unit and/or counseling patient: Coding Level of Care Code 97713 SUB INP/OBS CARE 3/50MIN Diagnoses JOANNA (acute kidney injury) N17.9 Hyperammonemia E72.20
[2023-07-23] MEDS: LEVOTHYROXINE SODIUM 150 MCG TABLET PO SCH (09:42)
[2023-07-23] MEDS: MAGNESIUM OXIDE 400 MG TAB PO SCH ×2 (09:43→21:25)
[2023-07-23] MEDS: LACTULOSE SYRUP 20 GM/30 ML UDC PO SCH ×4 (09:43→21:25)
[2023-07-23] MEDS: PROCHLORPERAZINE MALEATE 5 MG TAB PO PRN (09:43)
[2023-07-23] MEDS: ESCITALOPRAM OXALATE 10 MG TAB PO SCH (09:43)
[2023-07-23] MEDS: PANTOprazole 40 MG TAB PO SCH (09:44)
[2023-07-23] MEDS: FAMOTIDINE 20 MG TAB PO SCH (09:44)
[2023-07-23] MEDS: rOPINIRole HCL 2 MG TABLET PO SCH ×3 (09:44→21:26)
[2023-07-23] MEDS: rifAXIMin 550 MG TABLET PO SCH ×2 (09:44→21:25)
--- NOTE | 2023-07-23 14:12 | Ultrasound Report ---
Ultrasound-guided paracentesis INDICATION: Ascites PROCEDURE: Procedure and risks were explained. Informed consent was obtained. A final timeout was com pleted. The abdomen was prepped and draped in sterile fashion. 1% buffered lidocaine was utilized for skin anesthesia. Utilizing ultrasound guidance, a 5 [place] safety centesis catheter was advanced into the right lower quadrant pocket of ascites. Ultrasound images were obtained. A total of 5 L of ascites fluid was pita chester, with 1 L sent to lab for analysis. The catheter was removed and (2) 3-0 Prolene sutures were uti lized to close the puncture site. The patient tolerated the procedure well. Vital signs will be monit ored on the floor. IMPRESSION: Paracentesis as above. Performed, dictated, and signed by Marvin Greene PA-C; to be co-signed by Dr. Lornezo Ocampo. Electronically signed by: Lorenzo Ocampo M.D. 07/23/2023 2:13 PM
--- NOTE | 2023-07-23 18:02 | Hospitalist Progress Note ---
Date of Service July 23, 2023 Assessment & Plan (1) JOANNA (acute kidney injury): Plan: 42yo medically complex female with history of NAFLD, liver cirrhosis presenting with increased somnolence. Nephrology evaluation feels she has serology consistent with hepatorenal syndrome type I-could have been precipitated from paracentesis without albumin repletion. Holding diuretics at this point in time. No indication for renal replacement therapy. Nephrology has initiated albumin 25 3 times daily at this point time for 48 hours. No focal signs and symptoms of infection at consider SBP or other etiologies to precipitate her hepatic encephalopathy with marked elevation of ammonia on presentation. -Hold diuretics - Bumex and Spironolactone -Hold Potassium supplement Persistent mild hyponatremia -Volume expansion with 25% Albumin q 8 hours since had paracentesis 07/23/23, will have additional albumin thru pm of 07/24 discussion with nephrology about more frequent paracentesis low volumes, attempted to discuss with leroy about if should have pleurex placed for home drainage , likley will need surgery imput (2) Hyperammonemia: Plan: Patient reports compliance with her Lactulose and Xifaxan -Lactulose QID - titrate to 2-3 soft BMs daily -Continue Xifaxan 550mg po BID (3) 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: Plan: Chronic. Concern for hepatorenal syndrome as above. Patient with persistent ascites. Elevated ammonia level. -Continue Xifaxan and Lactulose -Holding diuretics as above -Patient may need to have a paracentesis while admitted, however, would hold off for now pending improvement in renal function -Continue Sucralfate -Continue Pepcid -Protonix 40mg po daily while admitted (4) Hypothyroidism: Plan: Chronic. Stable -Continue Synthroid F/E/N- Volume expansion with IV Albumin, monitor electrolytes and renal function, Low K/CC diet as tolerated Ppx - Heparin 5000u q 8 Code - Full per discussion with patient Dispo -Admit to medical with telemetry Admission and Anticipated Discharge Date Admission Date: July 21, 2023 Subjective Pt is s/p paracentesis, still has leaking site, only took 5L today. Improved renal function. She c/o abdominal discomfort related to ascites. She denied fever, dysuria, uremic symptoms Physical Exam Physical Exam: Awake and appropriate. Asking for pain medications. Massive ascites with distended abdomen and 2-3+ edema to her legs with weeping of fluid from her low er extremities Results & Data Results & Data Vital Signs (Past 12 Hours) Vital Signs Temp Pulse Pulse Resp BP Pulse Ox O2 Del Method 07/23/23 16:09 89 07/23/23 14:38 98.4 F 85 124/76 97 Room Air 07/23/23 14:01 97.7 F 85 124/78 97 Room Air 07/23/23 13:20 98.1 F 85 125/57 L 97 Room Air 07/23/23 13:19 98.1 F 85 125/57 L 97 Room Air 07/23/23 12:49 98.2 F 82 130/75 96 Room Air 07/23/23 12:45 98.2 F 78 117/61 97 Room Air 07/23/23 12:38 98.2 F 81 117/61 96 Room Air 07/23/23 11:29 98.2 F 88 20 127/80 97 Room Air 07/23/23 08:10 87 18 99 Room Air 07/23/23 08:06 Room Air 07/23/23 07:52 98.6 F 89 20 143/85 H 95 Room Air 07/23/23 07:51 96 H Laboratory Results reviewed cbc and chemistry PG Care Time/CCT Total # of Minutes Spent Total Time Spent with Patient: Total time spent is greater than 50% in coordination of care (as documented) at patient's floor/unit and/or counseling patient: Coding Level of Care Code 71126 SUB INP/OBS CARE 2/35MIN Diagnoses JOANNA (acute kidney injury) N17.9 Hyperammonemia E72.20 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
[2023-07-23] MEDS: ONDANSETRON INJ 2 MG/ML 2 ML VIAL IV PRN (18:03)
--- NOTE | 2023-07-23 19:07 | Hospitalist Progress Note ---
Date of Service July 23, 2023 Assessment & Plan (1) JOANNA (acute kidney injury): Plan: 42yo medically complex female with history of NAFLD, liver cirrhosis presenting with increased somnolence. Nephrology evaluation feels she has serology consistent with hepatorenal syndrome type I-could have been precipitated from paracentesis without albumin repletion. Holding diuretics at this point in time. No indication for renal replacement therapy. Nephrology has initiated albumin 25 3 times daily at this point time for 48 hours. No focal signs and symptoms of infection at consider SBP or other etiologies to precipitate her hepatic encephalopathy with marked elevation of ammonia on presentation. -Hold diuretics - Bumex and Spironolactone -Hold Potassium supplement Persistent mild hyponatremia -Volume expansion with 25% Albumin q 8 hours since had paracentesis 07/23/23, will have additional albumin thru pm of 07/24 discussion with nephrology about more frequent paracentesis low volumes, attempted to discuss with leroy about if should have pleurex placed for home drainage , likley will need surgery imput (2) Hyperammonemia: Plan: Patient reports compliance with her Lactulose and Xifaxan -Lactulose QID - titrate to 2-3 soft BMs daily -Continue Xifaxan 550mg po BID *Metabolic encephalopathy, resolved (3) 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: Plan: Chronic. Concern for hepatorenal syndrome as above. Patient with persistent ascites. Elevated ammonia level. -Continue Xifaxan and Lactulose -Holding diuretics as above -Patient may need to have a paracentesis while admitted, however, would hold off for now pending improvement in renal function -Continue Sucralfate -Continue Pepcid -Protonix 40mg po daily while admitted (4) Hypothyroidism: Plan: Chronic. Stable -Continue Synthroid F/E/N- Volume expansion with IV Albumin, monitor electrolytes and renal function, Low K/CC diet as tolerated Ppx - Heparin 5000u q 8 Code - Full per discussion with patient Dispo -Admit to medical with telemetry Admission and Anticipated Discharge Date Admission Date: July 21, 2023 Results & Data Results & Data Vital Signs (Past 12 Hours) Vital Signs Temp Pulse Pulse Resp BP Pulse Ox O2 Del Method 07/23/23 16:09 89 07/23/23 14:38 98.4 F 85 124/76 97 Room Air 07/23/23 14:01 97.7 F 85 124/78 97 Room Air 07/23/23 13:20 98.1 F 85 125/57 L 97 Room Air 07/23/23 13:19 98.1 F 85 125/57 L 97 Room Air 07/23/23 12:49 98.2 F 82 130/75 96 Room Air 07/23/23 12:45 98.2 F 78 117/61 97 Room Air 07/23/23 12:38 98.2 F 81 117/61 96 Room Air 07/23/23 11:29 98.2 F 88 20 127/80 97 Room Air 07/23/23 08:10 87 18 99 Room Air 07/23/23 08:06 Room Air 07/23/23 07:52 98.6 F 89 20 143/85 H 95 Room Air 07/23/23 07:51 96 H PG Care Time/CCT Total # of Minutes Spent Total Time Spent with Patient: Total time spent is greater than 50% in coordination of care (as documented) at patient's floor/unit and/or counseling patient: Coding Level of Care Code None Diagnoses JOANNA (acute kidney injury) N17.9 Hyperammonemia E72.20 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
[2023-07-23] MEDS: ALPRAZolam 0.5 MG TABLET PO PRN (21:24)
[2023-07-24] MEDS: ALBUMIN 25% 25 GM/100 ML VIAL IV SCH ×3 (01:50→16:20)
[2023-07-24] MEDS: oxyCODONE HCL IR 5 MG TAB (IMMEDIATE RELEASE) PO PRN ×3 (04:03→19:17)
[2023-07-24] MEDS: HEPARIN SOD 5,000 UNIT/0.5 ML VIAL SQ SCH ×3 (05:41→21:04)
[2023-07-24] MEDS: LEVOTHYROXINE SODIUM 150 MCG TABLET PO SCH (05:41)
[2023-07-24] MEDS: FAMOTIDINE 20 MG TAB PO SCH (08:49)
[2023-07-24] MEDS: MAGNESIUM OXIDE 400 MG TAB PO SCH ×2 (08:50→21:03)
[2023-07-24] MEDS: rifAXIMin 550 MG TABLET PO SCH ×2 (08:50→21:03)
[2023-07-24] MEDS: rOPINIRole HCL 2 MG TABLET PO SCH ×3 (08:50→21:04)
[2023-07-24] MEDS: ESCITALOPRAM OXALATE 10 MG TAB PO SCH (08:51)
[2023-07-24] MEDS: PANTOprazole 40 MG TAB PO SCH (08:51)
[2023-07-24] MEDS: LACTULOSE SYRUP 20 GM/30 ML UDC PO SCH ×4 (08:52→21:03)
[2023-07-24] MEDS: ONDANSETRON INJ 2 MG/ML 2 ML VIAL IV PRN ×2 (09:00→16:24)
--- NOTE | 2023-07-24 18:54 | Hospitalist Progress Note ---
Date of Service July 24, 2023 Assessment & Plan (1) JOANNA (acute kidney injury): Plan: 42yo medically complex female with history of NAFLD, liver cirrhosis presenting with increased somnolence. Nephrology evaluation feels she has serology consistent with hepatorenal syndrome type I-could have been precipitated from paracentesis without albumin repletion. Holding diuretics at this point in time. No indication for renal replacement therapy. Nephrology has initiated albumin 25 3 times daily at this point time for 48 hours. No focal signs and symptoms of infection at consider SBP or other etiologies to precipitate her hepatic encephalopathy with marked elevation of ammonia on presentation. -Hold diuretics - Bumex and Spironolactone -Hold Potassium supplement Persistent mild hyponatremia -Volume expansion with 25% Albumin q 8 hours since had paracentesis 07/23/23, will have additional albumin thru pm of 07/24 discussion with nephrology about more frequent paracentesis low volumes, discussed with Dr. Calvert, pleurex does not appear to be recommended due to risk of infection., (2) Hyperammonemia: Plan: Patient reports compliance with her Lactulose and Xifaxan -Lactulose QID - titrate to 2-3 soft BMs daily -Continue Xifaxan 550mg po BID *Metabolic encephalopathy, resolved (3) 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: Plan: Chronic. Concern for hepatorenal syndrome as above. Patient with persistent ascites. Elevated ammonia level. -Continue Xifaxan and Lactulose -Holding diuretics as above -Patient may need to have a paracentesis while admitted, however, would hold off for now pending improvement in renal function -Continue Sucralfate -Continue Pepcid -Protonix 40mg po daily while admitted (4) Hypothyroidism: Plan: Chronic. Stable -Continue Synthroid F/E/N- Volume expansion with IV Albumin, monitor electrolytes and renal function, Low K/CC diet as tolerated Ppx - Heparin 5000u q 8 Code - Full per discussion with patient Dispo -Admit to medical with telemetry Admission and Anticipated Discharge Date Admission Date: July 21, 2023 Subjective 42 yo female reports no new symptoms. Patient continues to have leakage in her abdomen. Review of Systems Review of Systems: All systems reviewed & are unremarkable except as noted in Subjective Physical Exam Constitutional: WD/WN, vitals as above Gastrointestinal (Abdomen): Inspection/Auscultation: + abdomen distended ascities Psychiatric: A+Ox3, euthymic affect Results & Data Results & Data Vital Signs (Past 12 Hours) Vital Signs Temp Pulse Pulse Resp BP Pulse Ox O2 Del Method 07/24/23 16:43 81 07/24/23 16:09 36.9 C 80 18 124/74 97 Room Air 07/24/23 11:23 37.1 C 88 16 117/72 97 Room Air 07/24/23 11:01 93 H 07/24/23 11:00 Room Air 07/24/23 07:58 36.8 C 87 20 131/80 99 Room Air PG Care Time/CCT Total # of Minutes Spent Total Time Spent with Patient: Total time spent is greater than 50% in coordination of care (as documented) at patient's floor/unit and/or counseling patient: Coding Level of Care Code 95834 SUB INP/OBS CARE 2/35MIN Diagnoses JOANNA (acute kidney injury) N17.9 Hyperammonemia E72.20 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
[2023-07-24] MEDS: ALBUTEROL HFA 8 GM INHALER INH PRN (19:52)
[2023-07-24] MEDS: IPRATROPIUM BROMIDE HFA INHALER INH PRN (19:53)
[2023-07-24] MEDS: ALPRAZolam 0.5 MG TABLET PO PRN (21:02)
[2023-07-25] MEDS: oxyCODONE HCL IR 5 MG TAB (IMMEDIATE RELEASE) PO PRN ×4 (04:24→21:30)
[2023-07-25] MEDS: LEVOTHYROXINE SODIUM 150 MCG TABLET PO SCH (05:26)
[2023-07-25] MEDS: HEPARIN SOD 5,000 UNIT/0.5 ML VIAL SQ SCH ×3 (05:27→21:24)
[2023-07-25 07:22] LABS: Hematocrit (blood only) 21.5 % (37.0-47.0); Hemoglobin 6.9 g/dl (12.0-16.0); Mean Corpuscular Hemoglobin 27.7 pg (25.0-34.0); Mean Corpuscular Hgb Conc 32.1 g/dL (32.0-36.0); Mean Corpuscular Volume 86.3 fL (80.0-100.0); Platelet Count 58 K/uL (130-400); RDW Coefficient of Variation 18.2 % (11.5-14.5); RDW Standard Deviation 58.7 fL (36.4-46.3); Red Blood Count 2.49 M/uL (4.20-5.40); White Blood Count 2.54 K/ul (4.8-10.8)
[2023-07-25 07:39] LABS: Albumin Globulin Ratio 2.3 (0.9-2); Albumin Level 4.1 gm/dl (3.4-5.0); BUN Creatinine Ratio 16.7 (10-20); Bilirubin,Total 1.6 mg/dl (0.2-1.0); Calcium 8.8 mg/dl (8.6-10.3); Creatinine Clr Calc Pharmacy 104.3 ml/min; Est GFR (African American) 99.4 ml/min; Est GFR (Non-African American) 85.7 ml/min; Globulin 1.8 gm/dl (2.5-4.0); Potassium 4.4 mmol/L (3.5-5.1); Total Protein 5.9 gm/dl (6.0-8.3)
[2023-07-25] MEDS ORDERED: SODIUM CHLORIDE 0.9% 250 ML IV PRN (08:01)
[2023-07-25] MEDS: FAMOTIDINE 20 MG TAB PO SCH (08:50)
[2023-07-25] MEDS: rOPINIRole HCL 2 MG TABLET PO SCH ×3 (08:50→21:21)
[2023-07-25] MEDS: rifAXIMin 550 MG TABLET PO SCH ×2 (08:50→21:22)
[2023-07-25] MEDS: ESCITALOPRAM OXALATE 10 MG TAB PO SCH (08:50)
[2023-07-25] MEDS: PANTOprazole 40 MG TAB PO SCH (08:50)
[2023-07-25] MEDS: LACTULOSE SYRUP 20 GM/30 ML UDC PO SCH ×4 (08:50→21:20)
[2023-07-25] MEDS: FUROSEMIDE 40 MG TAB PO SCH (08:52)
[2023-07-25] MEDS: SPIRONOLACTONE 100 MG TAB PO SCH (08:52)
[2023-07-25] MEDS: ONDANSETRON INJ 2 MG/ML 2 ML VIAL IV PRN ×2 (09:01→15:54)
[2023-07-25] MEDS: MAGNESIUM OXIDE 400 MG TAB PO SCH ×2 (12:15→21:23)
--- NOTE | 2023-07-25 15:01 | Ultrasound Report ---
Ultrasound-guided paracentesis INDICATION: Ascites PROCEDURE: Procedure and risks were explained. Informed consent was obtained. A final timeout was com pleted. The abdomen was prepped and draped in sterile fashion. 1% buffered lidocaine was utilized for skin anesthesia. Utilizing ultrasound guidance, a 5 [place] safety centesis catheter was advanced into the left lower q uadrant pocket of ascites. Ultrasound images were obtained. A total of 6.8 L of ascites fluid was rem kurtis, with 1 L sent to lab for analysis. The catheter was removed and (1) 2-0 silk stitch was utilize d to close the puncture site. The patient tolerated the procedure well. Vital signs will be monitored on the floor. IMPRESSION: Paracentesis as above. Performed, dictated, and signed by Marvin Greene PA-C; to be co-signed by Dr. Mohit Perez. Electronically signed by: Mohit Perez M.D. 07/25/2023 9:57 PM
[2023-07-25] MEDS: ALBUMIN 25% 25 GM/100 ML VIAL IV SCH (18:14)
[2023-07-25 18:37] LABS: Hemoglobin 7.4 g/dl (12.0-16.0)
[2023-07-25] MEDS: ALPRAZolam 0.5 MG TABLET PO PRN (21:21)
--- NOTE | 2023-07-25 22:35 | Hospitalist Progress Note ---
Date of Service July 25, 2023 Assessment & Plan (1) JOANNA (acute kidney injury): Plan: 42yo medically complex female with history of NAFLD, liver cirrhosis presenting with increased somnolence. Nephrology evaluation feels she has serology consistent with hepatorenal syndrome type I-could have been precipitated from paracentesis without albumin repletion. Holding diuretics at this point in time. No indication for renal replacement therapy. Nephrology has initiated albumin 25 3 times daily at this point time for 48 hours. No focal signs and symptoms of infection at consider SBP or other etiologies to precipitate her hepatic encephalopathy with marked elevation of ammonia on presentation. -Hold diuretics - Bumex and Spironolactone -Hold Potassium supplement Persistent mild hyponatremia -Volume expansion with 25% Albumin q 8 hours since had paracentesis 07/23/23, will have additional albumin thru pm of 07/24 discussion with nephrology about more frequent paracentesis low volumes, discussed with Dr. Calvert, pleurex does not appear to be recommended due to risk of infection., As JOANNA has resolved, patient will need to be on diuretics moving forward, will switch bumex to lasix as the high dose loop diuretic was probably causing JOANNA. will also resume spironolactone at 100 mg. Patient had paracenthesis on 07/25, this was about 6.7 liters will remove as much as possible and order some albumin. Hemoglobin was below 7, could be dilutional, rechecked after paracenthesis, was above 7. (2) Hyperammonemia: Plan: Patient reports compliance with her Lactulose and Xifaxan -Lactulose QID - titrate to 2-3 soft BMs daily -Continue Xifaxan 550mg po BID *Metabolic encephalopathy, resolved (3) 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: Plan: Chronic. Concern for hepatorenal syndrome as above. Patient with persistent ascites. Elevated ammonia level. -Continue Xifaxan and Lactulose -Holding diuretics as above -Patient may need to have a paracentesis while admitted, however, would hold off for now pending improvement in renal function -Continue Sucralfate -Continue Pepcid -Protonix 40mg po daily while admitted (4) Hypothyroidism: Plan: Chronic. Stable -Continue Synthroid F/E/N- Volume expansion with IV Albumin, monitor electrolytes and renal function, Low K/CC diet as tolerated Ppx - Heparin 5000u q 8 Code - Full per discussion with patient Dispo -Admit to medical with telemetry Admission and Anticipated Discharge Date Admission Date: July 21, 2023 Subjective 42 yo female reports feeling better after her paracenthesis. Review of Systems Review of Systems: All systems reviewed & are unremarkable except as noted in HPI & below Physical Exam Constitutional: WD/WN, vitals as above Gastrointestinal (Abdomen): Inspection/Auscultation: + abdomen distended Psychiatric: A+Ox3, euthymic affect Results & Data Results & Data Vital Signs (Past 12 Hours) Vital Signs Temp Pulse Resp BP Pulse Ox O2 Del Method 07/25/23 22:28 36.8 C 84 18 124/73 97 Room Air 07/25/23 19:37 36.6 C 86 18 126/72 99 Room Air 07/25/23 17:45 72 16 115/73 96 Room Air 07/25/23 16:17 36.9 C 74 18 113/68 96 Room Air 07/25/23 15:58 36.9 C 72 18 106/64 96 Room Air 07/25/23 15:57 36.7 C 70 16 104/63 96 Room Air 07/25/23 15:33 36.7 C 75 16 99/59 L 98 Room Air 07/25/23 15:30 36.7 C 84 16 115/64 100 Room Air 07/25/23 12:04 36.4 C L 85 18 120/63 99 Room Air PG Care Time/CCT Total # of Minutes Spent Total Time Spent with Patient: Total time spent is greater than 50% in coordination of care (as documented) at patient's floor/unit and/or counseling patient: Coding Level of Care Code 80569 SUB INP/OBS CARE 3/50MIN Diagnoses JOANNA (acute kidney injury) N17.9 Hyperammonemia E72.20 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
[2023-07-26] MEDS: ALBUMIN 25% 25 GM/100 ML VIAL IV SCH ×2 (01:25→12:47)
[2023-07-26] MEDS: LEVOTHYROXINE SODIUM 150 MCG TABLET PO SCH (05:34)
[2023-07-26] MEDS: HEPARIN SOD 5,000 UNIT/0.5 ML VIAL SQ SCH ×3 (05:35→21:52)
[2023-07-26] MEDS: oxyCODONE HCL IR 5 MG TAB (IMMEDIATE RELEASE) PO PRN ×2 (06:26→18:50)
[2023-07-26 07:32] LABS: Hemoglobin 6.4 g/dl (12.0-16.0); Mean Corpuscular Hemoglobin 26.7 pg (25.0-34.0); Mean Corpuscular Hgb Conc 30.5 g/dL (32.0-36.0); Mean Corpuscular Volume 87.5 fL (80.0-100.0); Mean Platelet Volume 10.2 fL (9.4-12.4); Platelet Count 45 K/uL (130-400); RDW Standard Deviation 58.2 fL (36.4-46.3); White Blood Count 2.23 K/ul (4.8-10.8)
[2023-07-26 07:37] LABS: BUN Creatinine Ratio 15.5 (10-20); Calcium 8.4 mg/dl (8.6-10.3); Creatinine Clr Calc Pharmacy 103.8 ml/min; Est GFR (African American) 99.4 ml/min; Est GFR (Non-African American) 85.7 ml/min; Potassium 3.8 mmol/L (3.5-5.1)
[2023-07-26] MEDS ORDERED: SODIUM CHLORIDE 0.9% 250 ML IV PRN (08:21)
--- NOTE | 2023-07-26 08:41 | Hospitalist Progress Note ---
Date of Service July 26, 2023 Assessment & Plan (1) JOANNA (acute kidney injury): Plan: 42yo medically complex female with history of NAFLD, liver cirrhosis presenting with increased somnolence. Nephrology evaluation feels she has serology consistent with hepatorenal syndrome type I-could have been precipitated from paracentesis without albumin repletion. Holding diuretics at this point in time. No indication for renal replacement therapy. Nephrology has initiated albumin 25 3 times daily at this point time for 48 hours. No focal signs and symptoms of infection at consider SBP or other etiologies to precipitate her hepatic encephalopathy with marked elevation of ammonia on presentation. -Hold diuretics - Bumex and Spironolactone -Hold Potassium supplement Persistent mild hyponatremia -Volume expansion with 25% Albumin q 8 hours since had paracentesis 07/23/23, will have additional albumin thru pm of 07/24 discussion with nephrology about more frequent paracentesis low volumes, discussed with Dr. Calvert, pleurex does not appear to be recommended due to risk of infection., As JOANNA has resolved, patient will need to be on diuretics moving forward, will switch bumex to lasix as the high dose loop diuretic was probably causing JOANNA. will also resume spironolactone at 100 mg. Patient had paracenthesis on 07/25, this was about 6.7 liters will remove as much as possible and order some albumin. Anemia Hemoglobin was below 7 again on 07/26, will transfuse, given dark stools will recheck hemoccult and consult Gastro. (2) Hyperammonemia: Plan: Patient reports compliance with her Lactulose and Xifaxan -Lactulose QID - titrate to 2-3 soft BMs daily -Continue Xifaxan 550mg po BID Given that her goal is above 2-3 BMs in day, will cut back her lactulose to TID. *Metabolic encephalopathy, resolved (3) 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: Plan: Chronic. Concern for hepatorenal syndrome as above. Patient with persistent ascites. Elevated ammonia level. -Continue Xifaxan and Lactulose -Holding diuretics as above -Patient may need to have a paracentesis while admitted, however, would hold off for now pending improvement in renal function -Continue Sucralfate -Continue Pepcid -Protonix 40mg po daily while admitted (4) Hypothyroidism: Plan: Chronic. Stable -Continue Synthroid F/E/N- Volume expansion with IV Albumin, monitor electrolytes and renal function, Low K/CC diet as tolerated Ppx - Heparin 5000u q 8 Code - Full per discussion with patient Dispo -Admit to medical with telemetry Admission and Anticipated Discharge Date Admission Date: July 21, 2023 Subjective 42 yo female reports having dark stools. She has been going about 4 times a day. She reports having a recent Endoscopy about [address] Cerrato, no varices were noted. Patient reports she has been urinating more here than at home. Review of Systems Review of Systems: All systems reviewed & are unremarkable except as noted in HPI & below Physical Exam Constitutional: WD/WN, vitals as above Gastrointestinal (Abdomen): Inspection/Auscultation: + abdomen distended Psychiatric: A+Ox3, euthymic affect Results & Data Results & Data Vital Signs (Past 12 Hours) Vital Signs Temp Pulse Pulse Resp BP BP Pulse Ox 07/26/23 07:39 37.2 C 79 16 129/83 92 07/26/23 03:31 36.8 C 80 18 119/66 97 07/25/23 22:28 36.8 C 84 18 124/73 97 07/25/23 22:00 77 O2 Del Method 07/26/23 07:39 Room Air 07/26/23 03:31 Room Air 07/25/23 22:28 Room Air 07/25/23 22:00 PG Care Time/CCT Total # of Minutes Spent Total Time Spent with Patient: Total time spent is greater than 50% in coordination of care (as documented) at patient's floor/unit and/or counseling patient: Coding Level of Care Code 79194 SUB INP/OBS CARE 3/50MIN Diagnoses JOANNA (acute kidney injury) N17.9 Hyperammonemia E72.20 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
[2023-07-26] MEDS: ONDANSETRON INJ 2 MG/ML 2 ML VIAL IV PRN ×2 (09:23→18:50)
[2023-07-26] MEDS: ESCITALOPRAM OXALATE 10 MG TAB PO SCH (09:30)
[2023-07-26] MEDS: FAMOTIDINE 20 MG TAB PO SCH (09:32)
[2023-07-26] MEDS: MAGNESIUM OXIDE 400 MG TAB PO SCH ×2 (09:32→21:51)
[2023-07-26] MEDS: rOPINIRole HCL 2 MG TABLET PO SCH ×3 (09:32→21:49)
[2023-07-26] MEDS: SPIRONOLACTONE 100 MG TAB PO SCH (09:32)
[2023-07-26] MEDS: FUROSEMIDE 40 MG TAB PO SCH (09:32)
[2023-07-26] MEDS: PANTOprazole 40 MG TAB PO SCH (09:32)
[2023-07-26] MEDS: rifAXIMin 550 MG TABLET PO SCH ×2 (09:32→21:51)
[2023-07-26] MEDS: LACTULOSE SYRUP 20 GM/30 ML UDC PO SCH ×3 (09:32→21:51)
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
[2023-07-26] MEDS ORDERED: BENZOCAINE 20% (ORAJEL) 11.9 GM TUBE MT PRN (18:23)
[2023-07-26] MEDS: PROCHLORPERAZINE MALEATE 5 MG TAB PO PRN (21:50)
[2023-07-26] MEDS: ALPRAZolam 0.5 MG TABLET PO PRN (21:54)
[2023-07-27] MEDS: LEVOTHYROXINE SODIUM 150 MCG TABLET PO SCH (05:37)
[2023-07-27] MEDS: HEPARIN SOD 5,000 UNIT/0.5 ML VIAL SQ SCH ×3 (05:38→21:40)
[2023-07-27 06:57] LABS: Hematocrit (blood only) 22.1 % (37.0-47.0); Hemoglobin 6.9 g/dl (12.0-16.0); Mean Corpuscular Hemoglobin 26.4 pg (25.0-34.0); Mean Corpuscular Hgb Conc 31.2 g/dL (32.0-36.0); Mean Corpuscular Volume 84.7 fL (80.0-100.0); Mean Platelet Volume 9.7 fL (9.4-12.4); Platelet Count 46 K/uL (130-400); RDW Coefficient of Variation 18.3 % (11.5-14.5); RDW Standard Deviation 56.3 fL (36.4-46.3); Red Blood Count 2.61 M/uL (4.20-5.40); White Blood Count 2.55 K/ul (4.8-10.8)
[2023-07-27 06:59] LABS: BUN Creatinine Ratio 16.5 (10-20); Creatinine Clr Calc Pharmacy 95.8 ml/min; Est GFR (African American) 90.2 ml/min; Est GFR (Non-African American) 77.8 ml/min; Potassium 3.8 mmol/L (3.5-5.1)
[2023-07-27] MEDS ORDERED: SODIUM CHLORIDE 0.9% 250 ML IV PRN (08:07)
[2023-07-27] MEDS: ONDANSETRON INJ 2 MG/ML 2 ML VIAL IV PRN (09:08)
[2023-07-27] MEDS: FAMOTIDINE 20 MG TAB PO SCH (09:32)
[2023-07-27] MEDS: ESCITALOPRAM OXALATE 10 MG TAB PO SCH (09:32)
[2023-07-27] MEDS: LACTULOSE SYRUP 20 GM/30 ML UDC PO SCH ×3 (09:32→21:40)
[2023-07-27] MEDS: FUROSEMIDE 40 MG TAB PO SCH (09:32)
[2023-07-27] MEDS: rOPINIRole HCL 2 MG TABLET PO SCH ×3 (09:33→21:39)
[2023-07-27] MEDS: PANTOprazole 40 MG TAB PO SCH (09:33)
[2023-07-27] MEDS: rifAXIMin 550 MG TABLET PO SCH ×2 (09:33→21:39)
[2023-07-27] MEDS: MAGNESIUM OXIDE 400 MG TAB PO SCH ×2 (09:33→21:40)
[2023-07-27] MEDS: SPIRONOLACTONE 100 MG TAB PO SCH (09:34)
[2023-07-27] MEDS: oxyCODONE HCL IR 5 MG TAB (IMMEDIATE RELEASE) PO PRN ×2 (10:17→21:43)
--- NOTE | 2023-07-27 12:21 | Gastroenterology Progress Note ---
Date of Service July 27, 2023 Assessment & Plan (1) JOANNA (acute kidney injury): (2) Anemia requiring transfusions: (3) Cirrhosis: Plan: Continue Lactulose and rifaximin and titrate for 3-4 soft bowel movements daily. her JOANNA has resolved with IV albumin so would start to slowly reintroduce diuretics. Would not use lasix instead would start Bumex 1 mg BID today with aldactone 100 mg daily. She was on bumex 2 mg BID and aldactone 100 mg BID as outpatient. Unfortunately, she will need to continue with twice weekly paracentesis and we had discussed risks with her in clinic (infection, large fluid shifts precipitating HE and JOANNA) but she is not a candidate for any IR procedure including TIPS or Stockwell shunt and has already been evaluated by them. They recommended twice weekly paracentesis as well. I would NOT recommend a pleurx drain as this is used in hospice/palliative patients and she is being evaluated for transplant. This runs the risk of infection and we do not recommend this in patients being worked up for transplant. The ultimate goal will be to get her a transplant and she is in the process of this at [facility] and [facility]. I STRONGLY advise that she be weaned off all narcotics which is going to continue worsening her HE which results in almost weekly hospital admission. No plan for EGD at this time. She has no overt signs of GI bleeding including melena, hematemesis, or hematochezia. Bowel movement this AM is brown that I witnessed. She just had an EGD at the end of May without any varices and only notable for gastritis. PPI 40 mg BID. She frequently has anemia due to JOANNA and chronic illness. She will not benefit from any endoscopy at this time unless she develops overt bleeding. Trend H/H and transfuse for hgb <7. I would recommend she gets a paracentesis tomorrow before discharge. She is extremely distended with tense ascites on exam today. She will follow up with me in clinic in 2-3 weeks and has all her transplant appointments set up. Hilda Calvert, Gastroenterology and Hepatology Admission and Anticipated Discharge Date Admission Date: July 21, 2023 Subjective Patient reports she is feeling well today. AAOx3. hgb is 6.9 today but stools have been brown and i personalized witnessed her having a bowel movement and it was formed and light brown. No evidence of GI bleeding. Her abdomen has large ascites and is tense. Has 4+ LE swelling bilaterally still. She is hopeful to be discharged tomorrow. Has appointments in [place] on 09/01 for transplant work up. Review of Systems Review of Systems: All systems reviewed & are unremarkable except as noted in HPI & below Physical Exam Constitutional: WD/WN, vitals as above Eyes: PERRL, conjunctivae normal, anicteric sclerae Respiratory: normal respiratory effort, lungs clear to auscultation Cardiovascular: RRR, no murmur, no edema Gastrointestinal (Abdomen): large ascites, tense, + fluid wave, non-tender to palpation, multiple areas that are bandaged due to leaking paracentesis sites Skin: 4+ LE swelling to thighs bilaterally Neurologic: AAOx3 but slow to respond, no asterixis present Results & Data Vital Signs (Past 12 Hours) Vital Signs Temp Pulse Pulse Resp BP BP BP 07/27/23 12:11 36.6 C 80 20 122/77 07/27/23 10:51 36.6 C 83 24 119/73 07/27/23 10:46 36.7 C 77 16 116/72 07/27/23 09:55 36.7 C 79 16 126/74 07/27/23 09:31 36.7 C 78 16 111/66 07/27/23 09:21 36.7 C 77 16 116/72 07/27/23 09:06 36.7 C 88 16 118/69 07/27/23 08:47 36.8 C 158 H 16 120/72 07/27/23 08:01 36.7 C 82 14 122/75 07/27/23 07:21 78 07/27/23 03:10 36.8 C 81 18 119/69 Pulse Ox O2 Del Method O2 Flow Rate 07/27/23 12:11 100 07/27/23 10:51 96 0 07/27/23 10:46 96 07/27/23 09:55 100 07/27/23 09:31 100 0 07/27/23 09:21 96 07/27/23 09:06 97 07/27/23 08:47 99 07/27/23 08:01 99 Room Air 07/27/23 07:21 07/27/23 03:10 94 Room Air
[2023-07-27] MEDS: BUMETANIDE 1 MG TAB PO SCH (18:32)
[2023-07-27] MEDS: IPRATROPIUM BROMIDE HFA INHALER INH PRN (20:15)
[2023-07-27] MEDS: ALBUTEROL HFA 8 GM INHALER INH PRN (20:17)
[2023-07-27] MEDS: ALPRAZolam 0.5 MG TABLET PO PRN (21:38)
[2023-07-27] MEDS ORDERED: METOCLOPRAMIDE HCL INJ 5 MG/ML 2 ML VIAL IV ONE (22:00)
[2023-07-28] MEDS: IPRATROPIUM BROMIDE HFA INHALER INH PRN (04:19)
[2023-07-28] MEDS: ALBUTEROL HFA 8 GM INHALER INH PRN (04:19)
[2023-07-28] MEDS: LEVOTHYROXINE SODIUM 150 MCG TABLET PO SCH (06:16)
[2023-07-28] MEDS: HEPARIN SOD 5,000 UNIT/0.5 ML VIAL SQ SCH ×2 (06:18→14:38)
[2023-07-28 06:57] LABS: Hematocrit (blood only) 25.3 % (37.0-47.0); Mean Corpuscular Hemoglobin 26.7 pg (25.0-34.0); Mean Corpuscular Hgb Conc 31.6 g/dL (32.0-36.0); Mean Corpuscular Volume 84.3 fL (80.0-100.0); Mean Platelet Volume 10.9 fL (9.4-12.4); Platelet Count 62 K/uL (130-400); RDW Coefficient of Variation 17.7 % (11.5-14.5); RDW Standard Deviation 54.6 fL (36.4-46.3); White Blood Count 3.53 K/ul (4.8-10.8)
--- NOTE | 2023-07-28 08:11 | Hospitalist Progress Note ---
Date of Service July 27, 2023 Assessment & Plan (1) JOANNA (acute kidney injury): Plan: 42yo medically complex female with history of NAFLD, liver cirrhosis presenting with increased somnolence. Nephrology evaluation feels she has serology consistent with hepatorenal syndrome type I-could have been precipitated from paracentesis without albumin repletion. Holding diuretics at this point in time. No indication for renal replacement therapy. Nephrology has initiated albumin 25 3 times daily at this point time for 48 hours. No focal signs and symptoms of infection at consider SBP or other etiologies to precipitate her hepatic encephalopathy with marked elevation of ammonia on presentation. -Hold diuretics - Bumex and Spironolactone -Hold Potassium supplement Persistent mild hyponatremia -Volume expansion with 25% Albumin q 8 hours since had paracentesis 07/23/23, will have additional albumin thru pm of 07/24 discussion with nephrology about more frequent paracentesis low volumes, discussed with Dr. Calvert, pleurex does not appear to be recommended due to risk of infection., As JOANNA has resolved, patient will need to be on diuretics moving forward, will switch bumex to lasix as the high dose loop diuretic was probably causing JOANNA. will also resume spironolactone at 100 mg. Patient had paracenthesis on 07/25, this was about 6.7 liters will remove as much as possible and order some albumin. GI recommend to try bumex at a lower dose. Concerned over possible JOANNA, but patient is willing to try. will start and monitor. Anemia Hemoglobin was below 7 again on 07/26, will transfuse, given dark stools will recheck hemoccult and consult Gastro. (2) Hyperammonemia: Plan: Patient reports compliance with her Lactulose and Xifaxan -Lactulose QID - titrate to 2-3 soft BMs daily -Continue Xifaxan 550mg po BID Given that her goal is above 2-3 BMs in day, will cut back her lactulose to TID. *Metabolic encephalopathy, resolved (3) 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: Plan: Chronic. Concern for hepatorenal syndrome as above. Patient with persistent ascites. Elevated ammonia level. -Continue Xifaxan and Lactulose -Holding diuretics as above -Patient may need to have a paracentesis while admitted, however, would hold off for now pending improvement in renal function -Continue Sucralfate -Continue Pepcid -Protonix 40mg po daily while admitted (4) Hypothyroidism: Plan: Chronic. Stable -Continue Synthroid Admission and Anticipated Discharge Date Admission Date: July 21, 2023 Subjective Patient reports no new symptoms. Review of Systems Review of Systems: All systems reviewed & are unremarkable except as noted in HPI & below Physical Exam Constitutional: WD/WN, vitals as above Gastrointestinal (Abdomen): Inspection/Auscultation: + abdomen distended Psychiatric: A+Ox3, euthymic affect Results & Data Results & Data Vital Signs (Past 12 Hours) Vital Signs Temp Pulse Pulse Resp BP Pulse Ox O2 Del Method 07/28/23 04:22 83 18 97 Room Air 07/28/23 04:17 36.5 C 83 18 121/69 97 Room Air 07/28/23 00:12 36.8 C 18 109/68 96 Room Air 07/27/23 22:02 84 PG Care Time/CCT Total # of Minutes Spent Total Time Spent with Patient: Total time spent is greater than 50% in coordination of care (as documented) at patient's floor/unit and/or counseling patient: Coding Level of Care Code 91796 SUB INP/OBS CARE 2/35MIN Diagnoses JOANNA (acute kidney injury) N17.9 Hyperammonemia E72.20 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
[2023-07-28] MEDS: ONDANSETRON INJ 2 MG/ML 2 ML VIAL IV PRN (08:25)
[2023-07-28] MEDS: FAMOTIDINE 20 MG TAB PO SCH (08:32)
[2023-07-28] MEDS: ESCITALOPRAM OXALATE 10 MG TAB PO SCH (08:32)
[2023-07-28] MEDS: rOPINIRole HCL 2 MG TABLET PO SCH ×2 (08:32→14:38)
[2023-07-28] MEDS: MAGNESIUM OXIDE 400 MG TAB PO SCH (08:32)
[2023-07-28] MEDS: SPIRONOLACTONE 100 MG TAB PO SCH (08:33)
[2023-07-28] MEDS: PROCHLORPERAZINE MALEATE 5 MG TAB PO PRN (08:33)
[2023-07-28] MEDS: rifAXIMin 550 MG TABLET PO SCH (08:33)
[2023-07-28] MEDS: PANTOprazole 40 MG TAB PO SCH (08:33)
[2023-07-28] MEDS: BUMETANIDE 1 MG TAB PO SCH ×2 (08:33→16:55)
[2023-07-28] MEDS: LACTULOSE SYRUP 20 GM/30 ML UDC PO SCH ×2 (08:35→14:38)
[2023-07-28 08:54] LABS: BUN Creatinine Ratio 14.9 (10-20); Calcium 8.3 mg/dl (8.6-10.3); Creatinine Clr Calc Pharmacy 86.3 ml/min; Est GFR (African American) 79.5 ml/min; Est GFR (Non-African American) 68.6 ml/min
[2023-07-28] MEDS ORDERED: METOCLOPRAMIDE HCL 5 MG TABLET PO PRN (11:18)
--- NOTE | 2023-07-28 14:12 | Ultrasound Report ---
Ultrasound-guided paracentesis INDICATION: Ascites PROCEDURE: Procedure and risks were explained. Informed consent was obtained. A final timeout was com pleted. The abdomen was prepped and draped in sterile fashion. 1% buffered lidocaine was utilized for skin anesthesia. Utilizing ultrasound guidance, a 5 [place] safety centesis catheter was advanced into the left lower q uadrant pocket of ascites. Ultrasound images were obtained. A total of 6.8 L of ascites fluid was rem kurtis, with 1 L sent to lab for analysis. The catheter was removed and (1) 3-0 nylon stitch was utiliz ed to close the puncture site. The patient tolerated the procedure well. Vital signs will be monitore d on the floor. IMPRESSION: Paracentesis as above. Performed, dictated, and signed by Marvin Greene PA-C; to be co-signed by Dr. Mohit Perez. Electronically signed by: Mohit Perez M.D. 07/28/2023 5:23 PM
[2023-07-28] MEDS: oxyCODONE HCL IR 5 MG TAB (IMMEDIATE RELEASE) PO PRN (14:39)
[2023-07-28] MEDS: ALBUMIN 25% 12.5 GM/50 ML VIAL IV SCH ×3 (14:49→16:54)
--- NOTE | 2023-07-28 17:00 | Discharge Summary ---
Date of Service July 28, 2023 Admission HPI Per Admitting Provider Niesha Gutiérrez is a 42yo female with history of liver cirrhosis secondary to NAFLD, known esophageal varices and prior ulcers, recurrent ascites on diuretic therapy and receiving twice weekly paracenteses. Patient reports she has been doing well for the last couple of weeks. She last had a paracentesis performed on 07/16/23 reported 8.5L removed. She was given Albumin with the procedure but thinks she only got 1 bottle. She last saw Hepatology on 07/15/23. No medication changes. She has been taking her Lactulose as directed and has been having 2-3 soft BMs daily. She reports no change in her UOP. No dysuria or hematuria. Today she ate then laid down to take a nap. Her tried to wake her up and she was very somnolent an difficult to arouse. She reports ongoing bilateral LE edema with weeping wounds specifically on her RLE. She has baseline shortness of breath but otherwise denies fever, chills, cough, chest pain, palpitations, vomiting, hematemesis, diarrhea, melena or hem atochezia. Principal Diagnosis JOANNA Discharge Exam Constitutional WD/WN, vitals as above Gastrointestinal (Abdomen) Inspection/Auscultation: + abdomen distended Psychiatric A+Ox3, euthymic affect Discharge Data Allergies Allergy/AdvReac Type Severity Reaction Status Date / Time codeine Allergy Unknown Hives, Verified 07/29/23 12:07 [From Tylenol-Codeine #3] skin redness (Tyenol #3) Consultations 07/21/23 19:48 ED Decision to Admit Stat 07/22/23 00:19 Consult Nephrology Routine 07/26/23 08:29 Consult Gastroenterology Routine Ordered Studies 07/21/23 17:40 CT head/brain wo con Stat 07/22/23 00:19 US Renal Bladder [US renal/blad retro comp] Urgent 07/23/23 07:18 IR paracentesis abd w/img US Routine 07/25/23 IR paracentesis abd w/img US Routine 07/28/23 IR paracentesis abd w/img US Routine Hospital Course (1) JOANNA (acute kidney injury): 42yo medically complex female with history of NAFLD, liver cirrhosis presenting with increased somnolence. Nephrology evaluation feels she has serology consistent with hepatorenal syndrome type I-could have been precipitated from paracentesis without albumin repletion. Holding diuretics at this point in time. No indication for renal replacement therapy. Nephrology has initiated albumin 25 3 times daily at this point time for 48 hours. No focal signs and symptoms of infection at consider SBP or other etiologies to precipitate her hepatic encephalopathy with marked elevation of ammonia on presentation. -Hold diuretics - Bumex and Spironolactone -Hold Potassium supplement Persistent mild hyponatremia -Volume expansion with 25% Albumin q 8 hours since had paracentesis 07/23/23, will have additional albumin thru pm of 07/24 discussion with nephrology about more frequent paracentesis low volumes, discussed with Dr. Calvert, pleurex does not appear to be recommended due to risk of infection., As JOANNA has resolved, patient will need to be on diuretics moving forward, will switch bumex to lasix as the high dose loop diuretic was probably causing JOANNA. will also resume spironolactone at 100 mg. Patient had paracenthesis on 07/25, this was about 6.7 liters will remove as much as possible and order some albumin. GI recommend to try bumex at a lower dose. Concerned over possible JOANNA, but patient is willing to try Anemia Hemoglobin was below 7 again on 07/26, will transfuse, no signs of active GI bleed. (2) Hyperammonemia: Patient reports compliance with her Lactulose and Xifaxan -Lactulose QID - titrate to 2-3 soft BMs daily -Continue Xifaxan 550mg po BID Given that her goal is above 2-3 BMs in day, will cut back her lactulose to TID. *Metabolic encephalopathy, resolved (3) 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: Chronic. Concern for hepatorenal syndrome as above. Patient with persistent ascites. Elevated ammonia level. -Continue Xifaxan and Lactulose -Holding diuretics as above -Patient may need to have a paracentesis while admitted, however, would hold off for now pending improvement in renal function -Continue Sucralfate -Continue Pepcid -Protonix 40mg po daily while admitted (4) Hypothyroidism: Chronic. Stable -Continue Synthroid Total Time Total Time Spent Total Time Spent (In Minutes): 32 Discharge Plan Discharge Items Patient Disposition: Home - Self-Care Reason For Visit: JOANNA, ELEVATED AMMONIA Discharge Diagnosis: JOANNA Activity: Resume your previous activity Non-emergency contact: Primary Care Provider Call non-emergency contact if: you have any medication questions Follow-up/Referrals: Endy Stanley D.O. [Primary Care Provider] - Diet: Carb Consistent or DM2 and Low Potassium (2gm) Addtl Attending Provider Instructions: Ms Gutiérrez, You were hospitalized due to acute kindey injury. I was concerned about your diuretics, that could be placing too much stress on your kidneys. Spironolactone is actually the stronger diuretic in patients with liver failure. We will start at 100 mg of spironolactone daily and likely will go back up to 200 mg if you tolerate it. I will also resume bumex at twice a day. Recommendations - Goal will be about 3-4 bowel movements daily. Please avoid use of oxycodone, tramadol, and pain killers as these make you sleepy and confused. You can use up to 2000mg of tylenol in a 24-hour period for aches/pains/headaches/etc. If possible please try to avoid use of ibuprofen/motrin/naprosyn/aleve/aspirin. Finally, limit total salt intake to no more than 2000mg (2 grams) in a 24-hour period. This is so important. Excessive salt intake will make your ascites & your edema in your legs much worse. Return to [facility] if - you have fevers over 100 degrees you have shortness of breath you have lethargy (sleepiness), worsening confusion, etc you have severe abdominal pains any other concerns It was a pleasure. Hope you have a Merry [place] and a Happy New Year. Al Giang Pending Studies at Discharge: No Stand-Alone Forms: My [facility], Smoking Cessation Medications and DC Order Prescriptions: Continued docusate sodium 100 mg capsule 100 mg PO BID levothyroxine 300 mcg tablet 300 mcg PO DAILYBB magnesium oxide 400 mg (241.3 mg magnesium) Tablet 400 mg PO BID Qty: 60 0RF ondansetron 8 mg tablet,disintegrating 8 mg translingual Q8 PRN (Reason: Nausea) ropinirole 4 mg tablet 4 mg PO TID escitalopram oxalate 10 mg tablet 10 mg PO QAM alprazolam 1 mg tablet 1 mg PO BID PRN (Reason: Anxiety) valacyclovir 500 mg Tablet 500 mg PO Q8 PRN (Reason: .BREAKOUTS) cholecalciferol (vitamin D3) [Vitamin D3] 125 mcg (5,000 unit) Tablet 125 mcg PO QAM Xifaxan 550 mg tablet 550 mg PO Q12 Kristalose Powder 1 dose PO TID Rx Instructions: 30 GRAM PER 1.5 PACKET. Does not take as much if she has more then 3 bms or gets diarrhea. Tums Gas Relief 750mg/80mg 1 tab PO TIDM triamcinolone acetonide 0.1 % Cream 1 applic EXT TID PRN (Reason: dry, itchy skin on legs/abdominal wall) Qty: 15 0RF Rx Instructions: use for 5 days then stop. Apply in very thin amounts only. sucralfate 1 gram tablet 1 g PO AC PRN (Reason: stomach upset/heartburn) Qty: 30 0RF Combivent Respimat 20-100 mcg/actuation Mist 1 puff INHALATION QID PRN (Reason: cough/wheeze/shortness of breath) Qty: 1 0RF Rx Instructions: space evenly during waking hours clobetasol 0.05 % solution 1 applic TOPICAL BID PRN (Reason: for scalp) [id number] 50-325-40 mg tablet 2 tab PO Q6 MDD 8 tablets PRN (Reason: Pain) oxycodone 15 mg tablet 15 mg PO Q6 PRN (Reason: Pain) tizanidine 4 mg tablet 4 mg PO HS promethazine [Promethegan] 25 mg suppository 25 mg ME UD PRN (Reason: Nausea) famotidine 40 mg tablet 40 mg PO QAM hydroxyzine HCl 10 mg tablet 10 mg PO TID PRN (Reason: Itching) potassium chloride 10 mEq tablet extended release 20 meq PO BID omeprazole 40 mg Capsule,Delayed Release(Dr/Ec) 40 mg PO BID prochlorperazine maleate 5 mg tablet 5 mg PO QID PRN (Reason: Nausea) Discontinued spironolactone 100 mg Tablet 100 mg PO BID17 Qty: 60 5RF Rx Instructions: take each morning, and every afternoon between 4 and 5pm. bumetanide 1 mg tablet 3 mg PO BID No Action spironolactone 100 mg tablet 100 mg PO BID Rx Instructions: take each morning, and every afternoon between 4 and 5pm. bumetanide 1 mg tablet 1 mg PO BID Discharge Orders: Discharge Order (Routine); Ordered 07/28/23 Ordered By: Al Giang Admission Data Admit Date/Time: 07/21/23 23:35 Attending Provider: Al Giang Admit Provider: Christal Metcalf Primary Care Provider: Endy Stanley Other Providers: Christal Metcalf; Jacoby Villanueva; [place],[facility]; Hilda Calvert Other Interventions: Discharge Summary Assessment (RN) Last Done: 07/28/23 17:19 Coding Level of Care Code 21133 INP/OBS DISCH >30 MIN Diagnoses JOANNA (acute kidney injury) N17.9 Hyperammonemia E72.20 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
== END 2023-07-28 19:17 | disposition home or self-care (01) | DRG 441 ==
LOC: ED 17:11 → SUATTDRO 23:35 → EDINP 23:35 → 2N 07-23 00:19

== ENCOUNTER 2023-07-29 08:54 | Inpatient (IN) ==
[2023-07-29] MEDS ORDERED: ALBUMIN 5% 250 ML IV ONE (09:13)
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
[2023-07-29 10:44] LABS: Basophils # (auto) 0.02 K/uL (0.00-0.20); Basophils % (auto) 0.8 %; Eosinophils # (auto) 0.06 K/uL (0.00-0.50); Eosinophils % (auto) 2.3 %; Hematocrit (blood only) 26.3 % (37.0-47.0); Immature Granulocytes # (auto) 0.01 K/uL (0.01-0.20); Immature Granulocytes % (auto) 0.4 %; Lymphocytes # (auto) 0.42 K/uL (1.20-3.40); Lymphocytes % (auto) 15.8 %; Mean Corpuscular Hemoglobin 26.4 pg (25.0-34.0); Mean Corpuscular Hgb Conc 30.4 g/dL (32.0-36.0); Mean Corpuscular Volume 86.8 fL (80.0-100.0); Mean Platelet Volume 10.2 fL (9.4-12.4); Monocytes # (auto) 0.32 K/uL (0.11-0.59); Neutrophils # (auto) 1.83 K/uL (1.40-6.50); Neutrophils % (auto) 68.7 %; Platelet Count 49 K/uL (130-400); RDW Coefficient of Variation 17.3 % (11.5-14.5); RDW Standard Deviation 55.4 fL (36.4-46.3); Red Blood Count 3.03 M/uL (4.20-5.40); White Blood Count 2.66 K/ul (4.8-10.8)
[2023-07-29 11:09] LABS: INR 1.5 (0.9-1.1); Prothrombin Time 16.4 Seconds (9.0-12.0)
[2023-07-29 11:47] LABS: Albumin Globulin Ratio 2.3 (0.9-2); Albumin Level 3.6 gm/dl (3.4-5.0); BUN Creatinine Ratio 15.2 (10-20); Calcium 8.5 mg/dl (8.6-10.3); Creatinine Clr Calc Pharmacy 53.3 ml/min; Est GFR (African American) 46.3 ml/min; Est GFR (Non-African American) 39.9 ml/min; Globulin 1.6 gm/dl (2.5-4.0); Potassium 4.1 mmol/L (3.5-5.1); Total Protein 5.2 gm/dl (6.0-8.3)
[2023-07-29] MEDS ORDERED: LACTULOSE SYRUP 30 GM/45 ML UDP PO STA (11:49)
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
[2023-07-29 14:38] LABS: Reticulocyte % 1.8 % (0.5-2.0); Reticulocytes # 0.06 10^6/uL (0.02-0.10)
[2023-07-29 14:44] LABS: Ferritin 19.9 ng/ml (8-388)
[2023-07-29] MEDS ORDERED: MIDODRINE HCL 10 MG TAB PO SCH (15:05)
[2023-07-29] MEDS ORDERED: SODIUM CHLORIDE 0.9% 250 ML IV PRN (15:09)
[2023-07-29 15:11] LABS: Folate (Folic Acid),Ser orPlas 18.39 ng/ml (>5.38)
[2023-07-29] MEDS ORDERED: PROMETHAZINE HCL 25 MG SUPP PR PRN (16:18)
[2023-07-29] MEDS ORDERED: ONDANSETRON 8MG OD TAB SL PRN (16:18)
[2023-07-29] MEDS ORDERED: IPRATROPIUM BROMIDE/ALBUTEROL respimat INH INH PRN (16:18)
[2023-07-29] MEDS ORDERED: PROCHLORPERAZINE MALEATE 5 MG TAB PO PRN (16:18)
[2023-07-29] MEDS: MIDODRINE HCL 2.5 MG TAB PO SCH (16:24)
[2023-07-29] MEDS ORDERED: IPRATROPIUM BROMIDE HFA INHALER INH PRN (16:26)
[2023-07-29] MEDS ORDERED: LACTULOSE SYRUP 20 GM/30 ML UDC PO STA (16:31)
[2023-07-29] MEDS: CALCIUM CARBONATE 500 MG CHEWABLE TAB PO SCH (18:08)
[2023-07-29] MEDS ORDERED: BUMETANIDE 1 MG TAB PO STA (19:30)
[2023-07-29] MEDS: LACTULOSE SYRUP 20 GM/30 ML UDC PO SCH (20:36)
[2023-07-29] MEDS: DOCUSATE SODIUM 100 MG CAP PO SCH (20:36)
[2023-07-29] MEDS: ALPRAZolam 0.5 MG TABLET PO PRN (20:44)
[2023-07-29] MEDS: oxyCODONE HCL IR 5 MG TAB (IMMEDIATE RELEASE) PO PRN (20:44)
[2023-07-29] MEDS: MAGNESIUM OXIDE 400 MG TAB PO SCH (20:45)
[2023-07-29] MEDS: rifAXIMin 550 MG TABLET PO SCH (20:45)
[2023-07-29] MEDS: PANTOprazole 40 MG TAB PO SCH (20:45)
[2023-07-29] MEDS: rOPINIRole HCL 2 MG TABLET PO SCH (20:45)
[2023-07-29] MEDS: POTASSIUM CHLORIDE CRTAB 20 MEQ TABCR PO SCH (20:46)
[2023-07-29] MEDS: HEPARIN SOD 5,000 UNIT/0.5 ML VIAL SQ SCH (20:46)
[2023-07-29 22:00] LABS: Appearance Urine Clear (Clear); Bilirubin Urine Negative (Negative); Blood Urine Negative (Negative); Color Urine Yellow; Glucose Urine UA Negative (Negative); Ketones Urine Negative (Negative); Leukocyte Esterase Urine Negative (Negative); Nitrite Urine Negative (Negative); Protein Urine Negative (Negative); Specific Gravity Urine 1.019 (1.000-1.030); Urobilinogen Urine Negative (Negative); pH Urine 5.5 (4.5-7.5)
[2023-07-29] MEDS ORDERED: HEPARIN SOD 5,000 UNIT/0.5 ML VIAL SQ SCH (22:00)
[2023-07-29 22:24] LABS: Creatinine Urine Random 127.6 mg/dl; Sodium Random Urine < 10 mmol/L
[2023-07-30] MEDS ORDERED: BENZOCAINE 20% (ORAJEL) 11.9 GM TUBE MT PRN (03:32)
--- OUTSIDE RECORDS SUMMARY | 2023-07-30 05:18 | External Medical Summary | Summary of Care ---
Author Name Unknown Organization [facility] Address [address] [facility] [place] [address] Phone [phone] Care Team Providers Care Gore Maker Name Role Phone LizethEndy hernandez Primary Care Provider [phone] Reason for Visit * Reason Comments Follow Up Encounter Details Date Type Department Care Team (Late st Contact Info) Description 07/29/2023 8:00 AM EST Office Visit Hematology/Oncology [facility] [place] [address] [facility] [place] [address] Sandra Evans MD [address] [place] [address] Other cirrhosis of liver (HCC)*; GILLESPIE (nonalcoholic steatohepatitis) Allergies Active Allergy Reactions Criticality Noted Date Comments Codeine Hives 07/18/2012 Metformin Abdominal pain Low 03/30/2013 documented as of this encounter (statuses as of 07/29/2023) Medications Medication Sig Dispensed Refills Start Date [...] overdose. Seek immediate medical attention. [email or web address]?[email or web address] 0 Active Prochlorperazine Maleate 5 MG Oral [...] 0 Active Albumin Human 25 % Intravenous SolutionIndications:L iver cirrhosis secondary to nonalcoholic steatohepatitis (GILLESPIE) (HCC) 25Gm before and after paracentesis. May run at 100ml/hr 100 mL 0 07/11/2023 Active Clobetasol Propionate 0.05 % External Solution apply to the scalp 1-2 times daily as needed 50 mL 2 07/18/2023 Active documented as of this encounter (statuses as of 07/29/2023) Active Problems Problem Noted Date Diagnosed Date [...] as of this encounter (statuses as of 07/29/2023) Resolved Problems Problem Noted Date Diagnosed Date [...] as of this encounter (statuses as of 07/29/2023) Immunizations Name Administration Dates Next Due H1N1 [...] Sign Reading Time Taken Comments Blood Pressure 68/44 07/29/2023 8:11 AM EST Pulse 65 07/29/2023 8:11 AM EST Temperature 37 C (98.6 F) 07/29/2023 8:11 AM EST Respiratory Rate - - Oxygen Saturation 96% 07/29/2023 8:11 AM EST Inhaled Oxygen Concentration - - Weight 100.7 kg (222 lb 1.6 oz) 07/29/2023 8:11 AM EST Height - - Body Mass Index 39.34 04/16/2023 2:57 PM EDT documented in this encounter Progress Notes * Sandra Evans MD - 07/29/2023 8:12 AM EST Outpatient Consult Note Data Source: Patient, Epic record. Data Source: Patient, Epic record. 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 Her history is also significant iron deficiency anemia andreceived iron infusion several times in the past. Patient was recently admitted to the hospital confusion and hepatic encephalopathy. Because of the liver cirrhosis and ascites she is having paracentesis done on weekly basis. Last paracentesis done today. 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 There is also splenomegaly and ascites and recanalization ofthe periumbilical vein and upper abdominal varices. She also received iron infusion during the recent admission at [facility]. She had a CBC done yesterday which shows WBC count of 8.93, hemoglobin 9.8 and platelet count 132. MCV and RDW were normal. Overall her hemoglobin is stable. Creatinine is 1.2 and the rest of the electrolytes in acceptable range. Sodium was 130 which is stable. PT and PTT are elevated. She was on Plavix which was recently changed to Lovenox. Currently she is taking 100 mg twice a day. She was diagnosed of liver cirrhosis about 13 years ago when after her gastric sleeve surgery. She would a couple of biopsy done and finally she would biopsy done at [facility] and they told her she has liver cirrhosis. She states she has never drank alcohol before and was told this was from GILLESPIE. She denies smoking all drinking alcohol. Family history significant for mother was diagnosed skin cancer. Father was also diagnosed of livercirrhosis. He was alcoholic Interval History: Patient was discharged from the hospital yesterday. She was admitted with acute kidney injury and generalized weakness and increasing confusion. She had paracentesis and also received albumin. She also received blood transfusion because of the low hemoglobin and dark stool. Today she has low blood pressure and still confused at time. LABS/IMAGING: Results for orders placed or performed in visit on 07/15/23 CHEMISTRY-OUTSIDE Result Value Ref Range Not all results display below - see scan for full detail CREATININE-OUTSIDE LAB EGFR-OUTSIDE LAB POTASSIUM-OUTSIDE LAB GLUCOSE-OUTSIDE LAB HOURS FASTING TRIGLYCERIDES-OUTSIDE LAB CHOLESTEROL-OUTSIDE LAB HDL-OUTSIDE LAB CHOL/HDL RATIO-OUTSIDE LAB LDL (CALCULATED)-OUTSIDE LAB LDL (DIRECT MEASURE)-OUTSIDE LAB HEMOGLOBIN, [id number] LAB PHOSPHORUS-OUTSIDE LAB PTH-OUTSIDE LAB MICROALBUMIN RATIO-OUTSIDE LAB PROTEIN, UA-OUTSIDE LAB HEMOGLOBIN-OUTSIDE LAB 8.9 (A) 12.0 - 16.0 G/DL *Note: Due to a large number of results and/or encounters for the requested time period, some results have not been displayed. A complete set of results can be found in Results Review. REVIEW OF SYSTEMS: General: No Fever, chills, night sweats, or weight loss. HEENT: No change in visual acuity, blurred or double vision. No epistaxis, facial pain, nasal discharge or change in hearing. Denies dysphagia, no muscosal ulceration, or sores noted. Cardiovascular: No chest pain, YAN, or palpitations Respiratory: stable shortness of breath, No cough, hemoptysis, or pleuritic chest pain Gastrointestinal: Abdominal distention Genitourinary: Denies Hematuria or dysuria Musculoskeletal: Generalized weakness, fatigue and confusion Psychiatric: No vegetative signs of depression Endocrine: No symptoms of hypothyroidism or hyperglycemia Hematologic: No bleeding or lymph nodes noted As mentioned above, all of the systems were reviewed in full and are unremarkable. Past Medical History: Diagnosis Date Acute kidney [...] Thrombocytopenia (HCC) Varicella without complication age 8 Current Outpatient Medications Medication Sig Dispense Refill ON[facility]OUCH UL[facility]ASOFT LANC[facility] use as directed (Patient not taking: Reported on 03/28/2023) 1 Box 11 TRETINOIN 0.05 % EX CREA APPLY TO SKIN AT BEDTIME 30 MINUTES AFTER WASHING AND DRYING SKIN 45 g 11 valACYclovir (VALTREX) 1000 MG Tablet Take 2 Tabs by mouth every 12 hours. For 1 day for cold sores4 Tab 11 Venlafaxine HCl ER 150 MG Oral Capsule Extended Release 24 Hour Take 37.5 mg by mouth in the morning. Do not cut, crush, or chew.. (Patient not taking: Reported on 06/23/2023) 30 Cap 5 LINZESS 290 MCG Capsule TAKE 1 [...] morning. (Patient not taking: Reported on 07/15/2023) famotidine (PEPCID) 20 MG Tablet Take 1 [...] as needed. (Patientnot taking: Reported on 06/23/2023) Ipratropium-Albuterol 20-100 MCG/ACT Inhalation Aerosol Solution Inhale 1 Puff by mouth in the morning and 1 Puff at noon and 1 Puff in the evening and 1 Puff before bedtime. Naloxone HCl 4 MG/0.1ML Nasal Liquid Administer 0.1 mL into nostril as needed. Administer 1 spray into 1 nostril for suspected opioid overdose. Seek immediate medical attention. [email or web address] Prochlorperazine Maleate 5 MG Oral Tablet (Compazine) [...] morning. (Patient not taking: Reported on 07/15/2023) Spironolactone 100 MG Oral Tablet (Aldactone) Take [...] the morning and 1 Tablet before bedtime. Albumin Human 25 % Intravenous Solution 25Gm before and after paracentesis. May run at 100ml/hr 100 mL 0 Clobetasol Propionate 0.05 % External Solution apply to the scalp 1-2 times daily as needed 50 mL 2 No current facility-administered medications for this visit. Social History Tobacco Use Smoking status: Never Smokeless tobacco: Never Substance Use Topics Alcohol use: Not Currently Comment: 3 x yr Drug use: No Review of patient's allergies indicates: Allergen Reactions Codeine Hives Metformin Abdominal pain PHYSICAL EXAMINATION: General Appearance: Weak and confuse appearing patient in no acute distress BP 68/44 (BP Site: Right Arm, BP Position: Sitting, BP Cuff Size: Regular) | Pulse 65 | Temp 37 C(98.6 F) | Wt 100.7 kg (222 lb 1.6 oz) | SpO2 96% | BMI 39.34 kg/m | BSA 2.12 m Vitals reviewed. HEENT: Jaundice. Neck is supple with no thyromegaly or JVD noted. Lymph Nodes: No lymphadenopathy noted in the occipital, pre and post auricular, cervical, supra andinfraclavicular, axillary, epitrochlear, inguinal, and popliteal region. Lungs/Thorax: Clear to auscultation, no accessory muscles of respiration being used. Heart: Regular rate and rhythm, normal S1, S2 Abdomen: distended with ascites Extremeties: Good pulses bilaterally, bilateral lower extremity edema ASSESSMENT: 42-year-old female with a complicated past medical history including decompensated GILLESPIE cirrhosis, ascites, varices, portal hypertension, portal and splenic vein thrombosis, anemia, history of thyroid cancer status post thyroidectomy in 2006, diabetes, hypertension and history of hepatic encephalopa thy was referred for further evaluation and continuation of iron infusion and anticoagulation treatment. She would a CT scan done which shows nonocclusive thrombus within the portal vein and splenic vein. She was on Plavix which was changed to Lovenox 100 mg twice a day. Because of underlying livercirrhosis she has elevated PT and PTT. In liver cirrhosis, portal vein thrombosis that occurs within the main portal vein and intrahepaticportal branches, is one of the most common complications. High incidence of portal vein thrombosis in the setting of liver cirrhosis is mainly due to hypercoagulable state and altered blood flow in the portal vein. Patient history of multiple other medical problems and high-risk or bleeding. She was discharged from the hospital yesterday. She also received blood transfusion. She is not on Lovenox anymore because of the bleeding. Today she is confused, low blood pressure. Discussed with the patient about the diagnosis and reviewed all the available blood test result with them. Because of her overall clinical condition, patient will be sent to the hospital for further evaluation. After discussion patient and agreed and will drive her to the ED. PLAN: As above. Will return clinic for follow-up in 3 months The patient voiced understanding of all of the above. All questions and concerns were addressed in an apparently satisfactory manner. Sandra Evans MD (This note was completed using the dictation program Fluency Direct. As such, there may be misspellings, word substitutions, or other variations that should not change the essence of the clinical content of this encounter note. If there is need for further clarification, please direct questions to me.) documented in this encounter Nursing Notes * Raymond Ferrer, MED ASSIST - 07/29/2023 8:14 AM EST Chief Complaint Patient presents with Follow Up BP 68/44 (BP Site: Right Arm, BP Position: Sitting, BP Cuff Size: Regular) | Pulse 65 | Temp 37 C(98.6 F) | Wt 100.7 kg (222 lb 1.6 oz) | SpO2 96% | BMI 39.34 kg/m | BSA 2.12 m Patient identified by name and date of . Do you have any concerns about pain management for today's visit? Yes. Patient instructed to discuss pain concerns with provider during the visit today Living Will or Advance Directive for Health Care as noted on problem list. My Snatch that Jerkyer is a way you can talk to your provider online through e-mail. Would you like to sign up? I can activate it for you? ALREADY ACTIVE Patient was instructed to not get up on the exam table/exam chair until directed and assisted by their provider; patient is to remain seated in the chair/ wheelchair/ exam table/ exam chair for fall prevention and safety reasons. Patient is aware to have assistance to step down off exam table/exam chair with personnel. Patient voiced full comprehension of instructions. Patient states she was in Emergency Room last 6 days., just released yesterday. documented in this encounter Plan of Treatment Upcoming Encounters Date Type Department Care Team (Late st Contact Info) Description 08/12/2023 12:30 PM EST Laboratory Laboratory, [place] [address] [place] [address] [place], Laboratory [facility] [place] [address] 09/01/2023 9:00 AM EST Office Visit Transplant Clinic, [place] [address], [place] [id number] Ganga Cummings [place] [address] Deep Marino MD [address] [place] [address] Nurse [facility] [address] [place] [address] Brina Nuñez LSW [address] [place] [address] 09/01/2023 1:30 PM EST Laboratory Outpatient Laboratory, [place] [address] [place] [phone] [place], Lab [address] [place] [address] 09/01/2023 2:00 PM EST Appointment Radiology, [address] [phone] 09/09/2023 8:00 AM EST Office Visit Hepatology, [facility] [address] [facility] [place] [address] Hilda Calvert DO [address] [facility] [place] [address] Health Maintenance Due Date Last Done Comments [...] as of this encounter Visit Diagnoses Diagnosis Other cirrhosis of liver (HCC)- Primary GILLESPIE (nonalcoholic steatohepatitis) Other chronic nonalcoholic liver disease documented in this encounter Advance Directives Latest Code Status on File Code Status Date Activated Date Inactivated Comments Full Code 10/15/2007 5:16 PM 10/17/2007 5:01 PM Care Teams Gore Maker Relationship Specialty Start Date End Date Endy Stanley DO [address] [address] [place] [address] PCP - General Family Medicine 07/13/18 documented as of this encounter"
[2023-07-30] MEDS: LEVOTHYROXINE SODIUM 150 MCG TABLET PO SCH (06:06)
[2023-07-30] MEDS: oxyCODONE HCL IR 5 MG TAB (IMMEDIATE RELEASE) PO PRN ×3 (06:06→18:26)
[2023-07-30 06:33] LABS: Basophils # (auto) 0.04 K/uL (0.00-0.20); Basophils % (auto) 0.8 %; Eosinophils # (auto) 0.06 K/uL (0.00-0.50); Eosinophils % (auto) 1.1 %; Hematocrit (blood only) 29.7 % (37.0-47.0); Hemoglobin 9.6 g/dl (12.0-16.0); Immature Granulocytes # (auto) 0.02 K/uL (0.01-0.20); Immature Granulocytes % (auto) 0.4 %; Lymphocytes # (auto) 0.57 K/uL (1.20-3.40); Lymphocytes % (auto) 10.9 %; Mean Corpuscular Hemoglobin 27.4 pg (25.0-34.0); Mean Corpuscular Hgb Conc 32.3 g/dL (32.0-36.0); Mean Corpuscular Volume 84.9 fL (80.0-100.0); Mean Platelet Volume 11.2 fL (9.4-12.4); Monocytes # (auto) 0.48 K/uL (0.11-0.59); Monocytes % (auto) 9.2 %; Neutrophils # (auto) 4.05 K/uL (1.40-6.50); Neutrophils % (auto) 77.6 %; Platelet Count 82 K/uL (130-400); RDW Standard Deviation 52.7 fL (36.4-46.3); White Blood Count 5.22 K/ul (4.8-10.8)
[2023-07-30 06:52] LABS: INR 1.4 (0.9-1.1); Prothrombin Time 15.3 Seconds (9.0-12.0)
[2023-07-30 06:54] LABS: Albumin Globulin Ratio 1.9 (0.9-2); Albumin Level 3.8 gm/dl (3.4-5.0); Bilirubin,Total 2.8 mg/dl (0.2-1.0); Calcium 8.8 mg/dl (8.6-10.3); Creatinine Clr Calc Pharmacy 71.5 ml/min; Est GFR (African American) 63.3 ml/min; Est GFR (Non-African American) 54.6 ml/min; Potassium 4.1 mmol/L (3.5-5.1); Total Protein 5.8 gm/dl (6.0-8.3)
[2023-07-30] MEDS ORDERED: SPIRONOLACTONE 100 MG TAB PO SCH (09:00)
[2023-07-30] MEDS: BUMETANIDE 1 MG TAB PO SCH ×2 (09:26→17:27)
[2023-07-30] MEDS: ESCITALOPRAM OXALATE 10 MG TAB PO SCH (09:26)
[2023-07-30] MEDS: MIDODRINE HCL 2.5 MG TAB PO SCH ×3 (09:26→17:31)
[2023-07-30] MEDS: PANTOprazole 40 MG TAB PO SCH ×2 (09:27→21:44)
[2023-07-30] MEDS: FAMOTIDINE 40 MG TABLET PO SCH (09:28)
[2023-07-30] MEDS: DOCUSATE SODIUM 100 MG CAP PO SCH ×2 (09:28→21:51)
[2023-07-30] MEDS: rOPINIRole HCL 2 MG TABLET PO SCH ×3 (09:29→21:44)
[2023-07-30] MEDS: rifAXIMin 550 MG TABLET PO SCH ×2 (09:29→21:43)
[2023-07-30] MEDS: MAGNESIUM OXIDE 400 MG TAB PO SCH ×2 (09:30→21:45)
[2023-07-30] MEDS: POTASSIUM CHLORIDE CRTAB 20 MEQ TABCR PO SCH ×2 (09:30→21:51)
[2023-07-30] MEDS: CALCIUM CARBONATE 500 MG CHEWABLE TAB PO SCH ×4 (09:31→17:27)
[2023-07-30] MEDS: HEPARIN SOD 5,000 UNIT/0.5 ML VIAL SQ SCH ×2 (09:31→21:39)
[2023-07-30] MEDS: LACTULOSE SYRUP 20 GM/30 ML UDC PO SCH ×3 (09:36→21:39)
--- NOTE | 2023-07-30 09:36 | Billing Data ---
Date of Service July 29, 2023 Coding Level of Care Code 17661 INT INP/OBS CARE
--- NOTE | 2023-07-30 22:05 | Hospitalist Progress Note ---
Date of Service July 30, 2023 Assessment & Plan (1) Acute hypotension: Plan: #Acute Hypotension Less likely hemorrhagic hypotension as H&H stable. Less like severe sepsis as patient does not meet SIRS criteria. Lactate 1.1. Most likely in the setting of diuretic use. Patient was HDS after paracentesis 07/25. Spironolactone restarted 07/25. Lasix 40 mg QD last dose 07/27. Transitioned to Bumex 1 mg 07/27. BP tolerated. Discharge meds - Bumex 1 mg BID and spironolactone 100 mg. Uncertain if this is what patient was taking at home. BP improved after albumin bolus. Patient is hypervolemic and will need diuresis of some sort. Will start midodrine 5 mg TID for BP support. Resume diuresis : but will place on lasix 80 mg/spironolactone 200 mg PO daily starting on 07/31 Patient is not tolerating bumex as it is causing renal failure. Oral lasix usually does not provoke JOANNA in cirrhotic patients. Will need to taper. Patient will have large paracenthesis on 07/31 will analyze fluid in case SBP, will need albumin ordered. ANticipate discharge. Also order SHIVA hoses to help decrease edema in lower extremities May need midodrine at discharge. (2) Acute alteration in mental status: Plan: #Encephalopathy Etiology not entirely clear - HE, infectious, hypotension, polypharmacy. Would recommend limiting mental status altering medications - holding Fioricet and tizanidine. Decreased dose of Xanax to 0.5 mg. Continue ropinirole 4 mg TID. Oxycodone 10 mg PRN attempt to wean over hospital stay. Awaiting UA results. Continue lactulose 30 mg TID and Xifaxan 550 BID. Continue to monitor. Monitor for signs of benzo withdrawal f/u UA (3) Cirrhosis: Plan: #Cirrhosis #GILLESPIE Patient with history of cirrhosis 2/2 GILLESPIE currently working on getting on the transplant list. Has appointment 09/01/23. Reviewed GI consult from last admission - recommended bi-weekly paracentesis, d/c opioid therapy, spironola ctone 100 mg BID, bumex 1 mg BID. No indication for scope at that time. Not a candidate for IR procedure such as TIPS/[place] shunt. Last paracentesis 07/25 - 6.7 L removed. Patient was discharged 07/28. Developed hypotension and AMS overnight and was readmitted. Ammonia 74. Less likely causative for current presentation. Additional lactulose can be given as indicated. Patient will likely require a paracentesis during this admission - would hold off at this time as she has been hypotensive and has an JOANNA. May need paracentesis this admission Daily MELD labs - MELD 20 Continue Xifaxan 500 mg BID, lactulose 30 mg TID (4) JOANNA (acute kidney injury): Plan: #JOANNA Patient was admitted for JOANNA 07/21 - 07/28. Diuretics were held and Cr normalized. Creatinine has bumped at this time likely pre-renal in nature with overdiuresis vs hypotensive episodes. Likely self limiting. No indication for TECHNOLOGY METHODOLOGY CONSULTANT at this point. AM CMP f/u urine lytes (5) Anemia: Plan: #Anemia Patient with transfusion of 7 units of blood in the last 3 months. 2 units during the last admission. Hemoglobin stable at 8. Iron studies and retic count ordered. Will transfuse 1U PRBCs with goal >9 in order to optimize her status. Could also do Venofer while inpatient for further optimization. (6) Leukopenia: Plan: #Leukopenia Appears chronic. Continue to monitor. AM CBC (7) GERD (gastroesophageal reflux disease): Plan: #GERD Patient on omeprazole 40 mg BID, famotidine 20 mg QAM, and sucralfate as needed. Esomeprazole is generally regarded as the safest PPI in decompensated cirrhosis. Consider switching PPIs outpatient. (8) Diabetes mellitus, type 2: Plan: #T2DM Last HbA1c 5.0 on 07/02/23. No longer on diabetes medications. Patient likely no longer has diabetes. No need for BSG. (9) Encounter for wound care: Plan: #Right Calf Wound Wrapped with an TIERRA bandage on my examination. Wound nurse consult. Continue to follow. (10) Acute hepatic encephalopathy: Plan Code status: full DVT ppx: heparin 5000 SQ Q8 FENGI: low sodium diet Dispo: PCU Possible discharge on 07/31 Admission and Anticipated Discharge Date Admission Date: July 29, 2023 Subjective Patient reports feeling better. She is asking for a shower. Review of Systems Review of Systems: All systems reviewed & are unremarkable except as noted in HPI & below Physical Exam Physical Exam: Gen: sitting upright. No longer lethargic HEENT: AT NC MMM Resp: CTAB no wheezing no increased work of breathing CV: RRR no m/r/g clinically well perfused Abd: distended, soft, mildly tender Skin: right calf wound wrapped with tierra bandage, notably edematous MSK: no obvious deformities Neuro: No longer lethargic Psych: appropriate mood and affect Results & Data Results & Data Vital Signs (Past 12 Hours) Vital Signs Temp Pulse Pulse Resp BP Pulse Ox Pulse Ox 07/30/23 19:19 36.8 C 82 19 142/78 H 92 07/30/23 19:00 92 07/30/23 17:53 93 H 07/30/23 15:58 36.7 C 76 20 114/60 97 07/30/23 11:35 36.8 C 96 H 18 127/72 96 O2 Del Method O2 Del Method 07/30/23 19:19 Room Air 07/30/23 19:00 Room Air 07/30/23 17:53 07/30/23 15:58 Room Air 07/30/23 11:35 Room Air PG Care Time/CCT Total # of Minutes Spent Total Time Spent with Patient: Total time spent is greater than 50% in coordination of care (as documented) at patient's floor/unit and/or counseling patient: Coding Level of Care Code 60443 SUB INP/OBS CARE 3/50MIN Diagnoses Acute hypotension I95.9 Acute alteration in mental status R41.82 Cirrhosis K74.60 JOANNA (acute kidney injury) N17.9 Anemia D64.9 Leukopenia D72.819 GERD (gastroesophageal reflux disease) K21.9 Diabetes mellitus, type 2 E11.9 Encounter for wound care Acute hepatic encephalopathy K76.82
[2023-07-30] MEDS: hydrOXYzine HCl 10 MG TAB PO PRN (22:39)
[2023-07-30] MEDS: ALBUTEROL HFA 8 GM INHALER INH PRN (23:36)
[2023-07-31] MEDS: ALPRAZolam 0.5 MG TABLET PO PRN (00:46)
[2023-07-31] MEDS: oxyCODONE HCL IR 5 MG TAB (IMMEDIATE RELEASE) PO PRN ×2 (00:49→08:43)
[2023-07-31 06:50] LABS: Basophils # (auto) 0.08 K/uL (0.00-0.20); Basophils % (auto) 0.9 %; Eosinophils # (auto) 0.14 K/uL (0.00-0.50); Eosinophils % (auto) 1.6 %; Hematocrit (blood only) 31.2 % (37.0-47.0); Hemoglobin 9.7 g/dl (12.0-16.0); Immature Granulocytes # (auto) 0.05 K/uL (0.01-0.20); Immature Granulocytes % (auto) 0.6 %; Lymphocytes # (auto) 0.64 K/uL (1.20-3.40); Lymphocytes % (auto) 7.4 %; Mean Corpuscular Hemoglobin 26.6 pg (25.0-34.0); Mean Corpuscular Hgb Conc 31.1 g/dL (32.0-36.0); Mean Corpuscular Volume 85.7 fL (80.0-100.0); Mean Platelet Volume 10.1 fL (9.4-12.4); Monocytes % (auto) 10.4 %; Neutrophils # (auto) 6.86 K/uL (1.40-6.50); Neutrophils % (auto) 79.1 %; Platelet Count 83 K/uL (130-400); RDW Coefficient of Variation 17.2 % (11.5-14.5); Red Blood Count 3.64 M/uL (4.20-5.40); White Blood Count 8.67 K/ul (4.8-10.8)
[2023-07-31] MEDS: LEVOTHYROXINE SODIUM 150 MCG TABLET PO SCH (06:55)
[2023-07-31 06:56] LABS: Albumin Globulin Ratio 1.8 (0.9-2); BUN Creatinine Ratio 17.9 (10-20); Bilirubin,Total 4.1 mg/dl (0.2-1.0); Calcium 9.1 mg/dl (8.6-10.3); Creatinine Clr Calc Pharmacy 83.2 ml/min; Est GFR (Non-African American) 64.7 ml/min; Globulin 2.2 gm/dl (2.5-4.0); Potassium 4.4 mmol/L (3.5-5.1); Total Protein 6.2 gm/dl (6.0-8.3)
[2023-07-31 07:33] LABS: INR 1.4 (0.9-1.1); Prothrombin Time 14.8 Seconds (9.0-12.0)
[2023-07-31] MEDS: MIDODRINE HCL 2.5 MG TAB PO SCH ×3 (07:44→17:09)
[2023-07-31] MEDS: MAGNESIUM OXIDE 400 MG TAB PO SCH ×2 (07:45→22:19)
[2023-07-31] MEDS: rOPINIRole HCL 2 MG TABLET PO SCH ×3 (07:45→22:19)
[2023-07-31] MEDS: PANTOprazole 40 MG TAB PO SCH ×2 (07:45→22:18)
[2023-07-31] MEDS: rifAXIMin 550 MG TABLET PO SCH ×2 (07:45→22:20)
[2023-07-31] MEDS: FAMOTIDINE 40 MG TABLET PO SCH (07:46)
[2023-07-31] MEDS: hydrOXYzine HCl 10 MG TAB PO PRN (07:46)
[2023-07-31] MEDS: LACTULOSE SYRUP 20 GM/30 ML UDC PO SCH ×3 (07:47→22:17)
[2023-07-31] MEDS: CALCIUM CARBONATE 500 MG CHEWABLE TAB PO SCH ×3 (07:47→17:09)
[2023-07-31] MEDS: ESCITALOPRAM OXALATE 10 MG TAB PO SCH (07:47)
[2023-07-31] MEDS: HEPARIN SOD 5,000 UNIT/0.5 ML VIAL SQ SCH ×2 (07:47→22:16)
[2023-07-31] MEDS: POTASSIUM CHLORIDE CRTAB 20 MEQ TABCR PO SCH ×2 (07:48→22:19)
[2023-07-31] MEDS: DOCUSATE SODIUM 100 MG CAP PO SCH ×2 (07:53→22:22)
[2023-07-31] MEDS ORDERED: SPIRONOLACTONE 100 MG TAB PO SCH (09:00)
[2023-07-31] MEDS ORDERED: FUROSEMIDE 80 MG TAB PO SCH (09:00)
[2023-07-31] MEDS: SUCRALFATE 1 GM TAB PO PRN (09:14)
--- NOTE | 2023-07-31 11:01 | Ultrasound Report ---
PROCEDURE: Ultrasound-Guided Diagnostic/Therapeutic Paracentesis CLINICAL HISTORY: ascities MEDICATIONS: Subcutaneous Lidocaine 2%. PROCEDURE: The procedure itself was explained to the patient carefully. The patient was brought into the IR suite and a time-out was performed. The patient was positioned supine on the table. Preliminar y ultrasound of the abdomen was performed to determine a safe needle entry site. The most appropriat e approach for safe needle entry site was planned and the site for puncture was marked. The right low er quadrant was prepped and draped in the usual sterile fashion. Subcutaneous 2% lidocaine was used f or local anesthesia along the expected needle tract. Under ultrasound-guidance, an 5 Portuguese Yueh needle-sheath was inserted carefully into the peritoneal space towards the abdominal ascites fluid collection. The needle was removed and the sheath was conn ected to tubing and a vacuum suction device. A total of 6000 cc of serous ascites was aspirated. The sheath was removed and a sterile dressing applied. The patient tolerated the procedure well without i mmediate complications. Sample of ascites was sent for analysis. IMPRESSION: Ultrasound-guided diagnostic/therapeutic paracentesis. Electronically signed by: Mohit Perez M.D. 07/31/2023 11:00 AM
[2023-07-31 11:33] LABS: Glucose Peritoneal Fluid 142 mg/dl; LDH Peritoneal Fluid 49 U/L; Lipase Peritoneal Fluid 44 U/L; Total Protein Peritoneal Fluid < 3.0 gm/dl
[2023-07-31 11:54] LABS: Appearance Peritoneal Fluid Cloudy; Color Peritoneal Fluid Amber; RBC Peritoneal Fluid Auto 27000 /uL; WBC Peritoneal Fluid Auto 357 /ul (0-300)
[2023-07-31] MEDS: METOCLOPRAMIDE HCL INJ 5 MG/ML 2 ML VIAL IV PRN (12:44)
[2023-07-31 13:13] LABS: Basophils, Fluid 1 %; Lymphocytes, Fluid 32 %; Mono,Macrophage,Mesothelial 55 %; Neutrophils, Fluid 12 %
[2023-07-31] MEDS: ALBUMIN 25% 25 GM/100 ML VIAL IV SCH ×2 (13:20→16:24)
--- NOTE | 2023-07-31 15:37 | Hospitalist Progress Note ---
Date of Service July 31, 2023 Assessment & Plan (1) Abdominal wall cellulitis: Plan: obtain blood cultures start rocephin 2gm daily start daptomycin 400mg daily serial exams no evidence of panniculitis on physical exam or a definable abscess of the abd wall (2) Cellulitis of leg: Plan: b/l shins, worse on right Rx for #1 should suffice (3) Acute hypotension: Plan: present on admission resolved cont midodrine 5mg TID in light of #1, #2, and fevers hold diuretics and recheck labs/clinical status in am (4) JOANNA (acute kidney injury): Plan: peak Cr 1.58 now 1 resolved likely pre-renal from volume shifts from paracentesis, copious diuretics, hypo tension, etc (5) Diabetes mellitus, type 2: Plan: last a1c 5% in June uncertain accuracy of her a1c due to chronic anemia but either way her glucose levels have been acceptable in back to back hospital stays (6) Morbid obesity with BMI of 40.0-44.9, adult: Plan: patient's BMI has gone down with loss of volume from cirrhosis (7) Refractory ascites: Plan: at this point is on twice weekly schedule for paracentesis pleurX contraindication/not advised due to infection risk and will ultimately be seeking out liver transplant appreciate IR assistance fluid studies today not suggestive of SBP did receive diuretics today - re-eval tomorrow for stability and if labs are acceptable continue bumex/aldactone (8) Anemia: Plan: multi-factorial has had significant Fe Def in the recent past s/p IV venofer daily CBC no evidence of any GI bleeding (9) Portal vein thrombosis: Plan: previously on lovenox but this has been stopped due to frequent paracentesis, low platelets, etc (10) Cirrhosis: Plan: 2nd GILLESPIE frequent admissions for complications from such - HE, volume overload, JOANNA, etc follows with Dr Hilda Calvert [facility] (11) Hyponatremia: Plan: 2nd to diuretics, cirrhosis, etc daily BMP (12) Pancytopenia: Plan: 2nd cirrhosis (13) TBI (traumatic brain injury): Plan: history of such (14) History of CVA (cerebrovascular accident): Plan: 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 (15) Chronic post-traumatic headache: Plan: treat symptoms Admission and Anticipated Discharge Date Admission Date: July 29, 2023 Subjective patient had 6 L of fluid removed via paracentesis in IR this morning 50gm of albumin 25% ordered post-tap I received a [place] correspondence from Cole Brock in IR who mentioned that when he was doing the tap he noted that her abdominal wall was quite erythematous when I came to see Niesha on the PCU she was complaining of "not feeling well," feeling cold/chilly, having headache, and her appetite was off she denied any abdominal pain she voiced frustration over her current medical situation, frequent admissions, etc she asked multiple questions about her diuretics Review of Systems Review of Systems: gen - fever/chills cv - no chest pain pulm - no cough GI - no abd pain or emesis - no dysuria but c/o itchiness in her vagina Physical Exam Physical Exam: gen - sitting at side of bed, slightly confused at times (loses her train of thought, etc), looks tired mouth - MMM, no lesions neck - no JVD heart - RRR, s1 s2, 2/6 EDUARDO LUSB lungs - CTA b/l abd - distended, BS+, NT abdominal wall and abdomen, no HSM; 2 paracentesis sites with sutures intact and no leaking of ascites; abdominal wall - lower wall with warm erythema extending all the way inferiorly to the junction with the groin/pelvic region ext - 1+ edema from feet to thighs; pulses 2+ b/l skin - abd wall findings as above; stasis changes b/l shins but both shins are quite warm & very red today - more so than baseline; R>L Results & Data Results & Data Vital Signs (Past 12 Hours) Vital Signs Temp Pulse Pulse Resp BP Pulse Ox O2 Del Method 07/31/23 14:17 85 07/31/23 12:43 38.0 C H 89 18 118/65 93 Room Air 07/31/23 11:05 36.9 C 95 H 18 135/70 97 Room Air 07/31/23 08:20 37.3 C 88 18 143/78 H 96 Room Air 07/31/23 05:57 86 07/31/23 03:40 37 C 88 17 127/73 93 Room Air Laboratory Results Laboratory Results - last 24 hr 07/31/23 07/31/23 06:01 Unknown WBC 8.67 RBC 3.64 L Hgb 9.7 L Hct 31.2 L MCV 85.7 MCH 26.6 MCHC 31.1 L RDW Std Deviation 54.0 H RDW Coeff of Henna 17.2 H Plt Count 83 L MPV 10.1 Immature Gran % (Auto) 0.6 Neut % (Auto) 79.1 Lymph % (Auto) 7.4 [place] % (Auto) 10.4 Eos % (Auto) 1.6 Baso % (Auto) 0.9 Neut # (Auto) 6.86 H Lymph # (Auto) 0.64 L [place] # (Auto) 0.90 H Eos # (Auto) 0.14 Baso # (Auto) 0.08 Immature Gran # (Auto) 0.05 PT 14.8 H INR 1.4 H Sodium 132 L Potassium 4.4 Chloride 99 Carbon Dioxide 25 Anion Gap 8 BUN 19 Creatinine 1.06 Est Cr Clr Drug Dosing 83.2 Est GFR ( Amer) 75.0 Est GFR (Non-Af Amer) 64.7 BUN/Creatinine Ratio 17.9 Glucose 122 H Calcium 9.1 Total Bilirubin 4.1 H AST 55 H ALT 23 Alkaline Phosphatase 46 Total Protein 6.2 Albumin 4.0 Globulin 2.2 L Albumin/Globulin Ratio 1.8 Fluid Neutrophils % 12 Fluid Lymphocytes % 32 Fluid Basophils % 1 Fluid Meso/Macro/[place] % 55 Fluid Comment Peritoneal Color Jolene Peritoneal Appearance Cloudy Peritoneal WBC (Auto) 357 H Peritoneal RBC (Auto) 13400 Peritoneal Tot Protein < 3.0 Peritoneal LDH 49 Peritoneal Glucose 142 Peritoneal Lipase 44 Stool Occult Bld Scrn Negative PG Care Time/CCT Total # of Minutes Spent Total Time Spent with Patient: Total time spent is greater than 50% in coordination of care (as documented) at patient's floor/unit and/or counseling patient: Coding Level of Care Code 63657 SUB INP/OBS CARE 3/50MIN Diagnoses Abdominal wall cellulitis L03.311 Cellulitis of leg L03.119 Acute hypotension I95.9 JOANNA (acute kidney injury) N17.9 Diabetes mellitus, type 2 E11.9 Morbid obesity with BMI of 40.0-44.9, adult E66.01; Z68.41 Refractory ascites R18.8 Anemia D64.9 Portal vein thrombosis I81 Cirrhosis K74.60 Hyponatremia E87.1 Pancytopenia D61.818 TBI (traumatic brain injury) S06.9X9A History of CVA (cerebrovascular accident) Z86.73 Chronic post-traumatic headache G44.329
[2023-07-31] MEDS ORDERED: ACETAMINOPHEN 325 MG TAB PO STA (15:55)
[2023-07-31] MEDS: DAPTOmycin 400 MG in SYRINGE 0 ML IV SCH (16:25)
[2023-07-31] MEDS: cefTRIAXone SODIUM 2,000 MG in DEXTROSE 5 % MINI-B 50 ML IV SCH (17:06)
[2023-08-01] MEDS: ALPRAZolam 0.5 MG TABLET PO PRN (03:03)
[2023-08-01] MEDS: oxyCODONE HCL IR 5 MG TAB (IMMEDIATE RELEASE) PO PRN ×2 (03:03→13:08)
[2023-08-01 06:40] LABS: BUN Creatinine Ratio 16.7 (10-20); Calcium 8.4 mg/dl (8.6-10.3); Creatinine Clr Calc Pharmacy 89.8 ml/min; Est GFR (African American) 84.5 ml/min; Est GFR (Non-African American) 72.9 ml/min; Potassium 3.5 mmol/L (3.5-5.1)
[2023-08-01] MEDS: LEVOTHYROXINE SODIUM 150 MCG TABLET PO SCH (06:46)
[2023-08-01] MEDS: MIDODRINE HCL 2.5 MG TAB PO SCH ×3 (06:49→16:46)
[2023-08-01] MEDS: CALCIUM CARBONATE 500 MG CHEWABLE TAB PO SCH ×3 (06:50→16:46)
[2023-08-01 06:57] LABS: Hematocrit (blood only) 25.5 % (37.0-47.0); Hemoglobin 7.8 g/dl (12.0-16.0); Mean Corpuscular Hemoglobin 26.8 pg (25.0-34.0); Mean Corpuscular Hgb Conc 30.6 g/dL (32.0-36.0); Mean Corpuscular Volume 87.6 fL (80.0-100.0); Mean Platelet Volume 9.6 fL (9.4-12.4); Platelet Count 47 K/uL (130-400); RDW Coefficient of Variation 17.3 % (11.5-14.5); RDW Standard Deviation 55.2 fL (36.4-46.3); Red Blood Count 2.91 M/uL (4.20-5.40); White Blood Count 3.46 K/ul (4.8-10.8)
[2023-08-01 07:03] LABS: Basophils # (auto) 0.03 K/uL (0.00-0.20); Basophils % (auto) 0.9 %; Eosinophils # (auto) 0.06 K/uL (0.00-0.50); Eosinophils % (auto) 1.7 %; Hypochromasia Present; Immature Granulocytes # (auto) 0.03 K/uL (0.01-0.20); Immature Granulocytes % (auto) 0.9 %; Lymphocytes # (auto) 0.28 K/uL (1.20-3.40); Lymphocytes % (auto) 8.1 %; Monocytes # (auto) 0.44 K/uL (0.11-0.59); Monocytes % (auto) 12.7 %; Neutrophils # (auto) 2.62 K/uL (1.40-6.50); Neutrophils % (auto) 75.7 %; Tear Drop Cells 1+
[2023-08-01] MEDS: rOPINIRole HCL 2 MG TABLET PO SCH ×4 (08:35→20:20)
[2023-08-01] MEDS: FAMOTIDINE 40 MG TABLET PO SCH (08:35)
[2023-08-01] MEDS: BUMETANIDE 1 MG TAB PO SCH ×2 (08:35→16:45)
[2023-08-01] MEDS: hydrOXYzine HCl 10 MG TAB PO PRN ×2 (08:35→22:15)
[2023-08-01] MEDS: PANTOprazole 40 MG TAB PO SCH ×3 (08:36→20:20)
[2023-08-01] MEDS: LACTULOSE SYRUP 20 GM/30 ML UDC PO SCH ×3 (08:36→20:12)
[2023-08-01] MEDS: ESCITALOPRAM OXALATE 10 MG TAB PO SCH (08:36)
[2023-08-01] MEDS: MAGNESIUM OXIDE 400 MG TAB PO SCH ×3 (08:36→20:21)
[2023-08-01] MEDS: rifAXIMin 550 MG TABLET PO SCH ×3 (08:36→20:20)
[2023-08-01] MEDS: HEPARIN SOD 5,000 UNIT/0.5 ML VIAL SQ SCH ×2 (08:37→20:12)
[2023-08-01] MEDS: POTASSIUM CHLORIDE CRTAB 20 MEQ TABCR PO SCH (08:40)
[2023-08-01] MEDS: DOCUSATE SODIUM 100 MG CAP PO SCH ×3 (08:40→20:20)
[2023-08-01] MEDS: ACETAMINOPHEN 500 MG TAB PO PRN ×3 (10:28→20:20)
[2023-08-01] MEDS: MICONAZOLE NITRATE 2% CR 30 GM TUBE EXT SCH ×2 (10:28→21:10)
[2023-08-01] MEDS: POTASSIUM CHLORIDE PWD 20 MEQ PACK PO SCH ×3 (10:29→20:12)
[2023-08-01] MEDS: ALBUTEROL HFA 8 GM INHALER INH PRN (10:57)
[2023-08-01] MEDS: METOCLOPRAMIDE HCL INJ 5 MG/ML 2 ML VIAL IV PRN ×2 (13:09→21:09)
[2023-08-01] MEDS: DAPTOmycin 400 MG in SYRINGE 0 ML IV SCH (16:44)
[2023-08-01] MEDS: cefTRIAXone SODIUM 2,000 MG in DEXTROSE 5 % MINI-B 50 ML IV SCH (16:44)
--- NOTE | 2023-08-01 17:48 | Hospitalist Progress Note ---
Date of Service August 01, 2023 Assessment & Plan (1) Abdominal wall cellulitis: Plan: IMPROVED cont rocephin 2gm daily cont daptomycin 400mg daily no evidence of panniculitis on physical exam or a definable abscess of the abd wall (2) Cellulitis of leg: Plan: b/l shins and b/l thighs left thigh is worse than right thigh Rx for #1 should suffice serial exams (3) Acute hypotension: Plan: present on admission resolved cont midodrine 5mg TID resume bumex 1mg BID today hold aldactone until tomorrow (4) JOANNA (acute kidney injury): Plan: peak Cr 1.58 now <1 resolved likely had been pre-renal from volume shifts from paracentesis, copious diuretics, hypotension, etc (5) Diabetes mellitus, type 2: Plan: last a1c 5% in June uncertain accuracy of her a1c due to chronic anemia but either way her glucose levels have been acceptable in back to back hospital stays (6) Morbid obesity with BMI of 40.0-44.9, adult: Plan: patient's BMI has gone down with loss of volume from cirrhosis (7) Refractory ascites: Plan: at this point is on twice weekly schedule for paracentesis pleurX contraindication/not advised due to infection risk and will ultimately be seeking out liver transplant appreciate IR assistance s/p paracentesis yesterday fluid studies not suggestive of SBP culture thus far negative resume bumex 1mg BID hold aldactone 1 more day (8) Anemia: Plan: multi-factorial has had significant Fe Def in the recent past s/p IV venofer daily CBC no evidence of any GI bleeding stool heme neg uncertain why H/H dropped from yesterday given no overt bleeding and heme neg stool simply repeat cbc am (9) Portal vein thrombosis: Plan: previously on lovenox but this has been stopped due to frequent paracentesis, low platelets, etc (10) Cirrhosis: Plan: 2nd GILLESPIE frequent admissions for complications from such - HE, volume overload, JOANNA, etc [facility] (11) Hyponatremia: Plan: 2nd to diuretics, cirrhosis, etc daily BMP (12) Pancytopenia: Plan: 2nd cirrhosis (13) TBI (traumatic brain injury): Plan: history of such (14) History of CVA (cerebrovascular accident): Plan: 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 (15) Chronic post-traumatic headache: Plan: treat symptoms Admission and Anticipated Discharge Date Admission Date: July 29, 2023 Subjective tele overnight wnl overall feels better today appetite is better still a little nausea at times no abdominal pain still with chills but no fever has "burning" sensation in both legs - medial thighs particularly, especially on the left side mild vaginal itching as well Review of Systems Review of Systems: gen - no fevers but still with chills at times cv - no chest pain pulm - no dyspnea GI - no vomiting today Physical Exam Physical Exam: gen - sitting at side of bed, mentation much better today; more awake/alert mouth - MMM, no lesions neck - no JVD heart - RRR, s1 s2, 2/6 EDUARDO LUSB lungs - CTA b/l abd - distended (mild-mod), BS+, NT abdominal wall and abdomen, no HSM; 2 paracentesis sites with sutures intact and no leaking of ascites; abdominal wall - lower wall with warm erythema extending all the way inferiorly to the junction with the groin/pelvic region - IMPROVED today; not as warm; only mild pink color today ext - 1-2+ edema from feet to thighs; pulses 2+ b/l skin - abd wall findings as above; stasis changes b/l shins; suspected cellulitis b/l shins and b/l thighs, worse L thigh medially Results & Data Results & Data Vital Signs (Past 12 Hours) Vital Signs Temp Pulse Pulse Resp BP Pulse Ox O2 Del Method 08/01/23 15:45 37.2 C 81 20 117/65 96 Room Air 08/01/23 14:36 84 08/01/23 11:33 37.4 C 85 18 118/65 96 Room Air 08/01/23 10:58 68 16 98 Room Air 08/01/23 08:05 37.4 C 86 18 126/75 97 Room Air 08/01/23 05:51 89 Laboratory Results Laboratory Results - last 24 hr 08/01/23 05:39 WBC 3.46 L D RBC 2.91 L Hgb 7.8 L Hct 25.5 L MCV 87.6 MCH 26.8 MCHC 30.6 L RDW Std Deviation 55.2 H RDW Coeff of Henna 17.3 H Plt Count 47 L MPV 9.6 Immature Gran % (Auto) 0.9 Neut % (Auto) 75.7 Lymph % (Auto) 8.1 [place] % (Auto) 12.7 Eos % (Auto) 1.7 Baso % (Auto) 0.9 Neut # (Auto) 2.62 Lymph # (Auto) 0.28 L [place] # (Auto) 0.44 Eos # (Auto) 0.06 Baso # (Auto) 0.03 Immature Gran # (Auto) 0.03 Hypochromasia Present Tear Drop Cells 1+ Sodium 132 L Potassium 3.5 D Chloride 100 Carbon Dioxide 24 Anion Gap 8 BUN 16 Creatinine 0.96 Est Cr Clr Drug Dosing 89.8 Est GFR ( Amer) 84.5 Est GFR (Non-Af Amer) 72.9 BUN/Creatinine Ratio 16.7 Glucose 152 H Calcium 8.4 L Diagnostic Findings blood and ascites cx negative PG Care Time/CCT Total # of Minutes Spent Total Time Spent with Patient: Total time spent is greater than 50% in coordination of care (as documented) at patient's floor/unit and/or counseling patient: Coding Level of Care Code 82285 SUB INP/OBS CARE 2/35MIN Diagnoses Abdominal wall cellulitis L03.311 Cellulitis of leg L03.119 Acute hypotension I95.9 JOANNA (acute kidney injury) N17.9 Diabetes mellitus, type 2 E11.9 Morbid obesity with BMI of 40.0-44.9, adult E66.01; Z68.41 Refractory ascites R18.8 Anemia D64.9 Portal vein thrombosis I81 Cirrhosis K74.60 Hyponatremia E87.1 Pancytopenia D61.818 TBI (traumatic brain injury) S06.9X9A History of CVA (cerebrovascular accident) Z86.73 Chronic post-traumatic headache G44.329
[2023-08-01] MEDS: MICONAZOLE NITRATE 2% VAG CR 45 GM TUBE PV SCH (21:15)
--- NOTE | 2023-08-01 23:40 | Ultrasound Report ---
Exam(s): US VENOUS BILATERAL LOWER EXTREMITIES EXAM: US Duplex Bilateral Lower Extremities Veins CLINICAL HISTORY: Reason for exam: cirrhosis, b/l leg pain, erythema thighs; eval DVT. TECHNIQUE: Real-time duplex ultrasound scan of the bilateral lower extremity veins integrating B-mode two-dimensional vascular structure, Doppler spectral analysis, color flow Doppler imaging and compression. COMPARISON: None. FINDINGS: Right deep veins: Unremarkable. No DVT in the right common femoral, femoral, proximal deep femoral or popliteal veins. The veins demonstrate normal color flow, are normally compressible, with normal phasic flow and/or augmentation response. Right superficial veins: Unremarkable. No thrombus in the visualized right great saphenous vein. Left deep veins: Unremarkable. No DVT in the left common femoral, femoral, proximal deep femoral or popliteal veins. The veins demonstrate normal color flow, are normally compressible, with normal phasic flow and/or augmentation response. Left superficial veins: Unremarkable. No thrombus in the visualized left great saphenous vein. Soft tissues: Specific edema throughout the bilateral calf region. No popliteal cyst. IMPRESSION: No ultrasonographic evidence of deep venous thrombosis involving the bilateral lower extremities. Electronically signed by: Paloma De La Cruz MD 08/01/23 23:39 PM
[2023-08-02] MEDS: ALPRAZolam 0.5 MG TABLET PO PRN (00:30)
[2023-08-02] MEDS: oxyCODONE HCL IR 5 MG TAB (IMMEDIATE RELEASE) PO PRN ×3 (04:30→22:18)
[2023-08-02] MEDS: LEVOTHYROXINE SODIUM 150 MCG TABLET PO SCH (05:30)
[2023-08-02] MEDS: ALBUTEROL HFA 8 GM INHALER INH PRN (05:37)
[2023-08-02 07:20] LABS: Albumin Globulin Ratio 1.8 (0.9-2); Albumin Level 3.5 gm/dl (3.4-5.0); BUN Creatinine Ratio 14.5 (10-20); Bilirubin,Total 1.6 mg/dl (0.2-1.0); Calcium 8.4 mg/dl (8.6-10.3); Creatinine Clr Calc Pharmacy 103.9 ml/min; Est GFR (African American) 100.8 ml/min; Globulin 1.9 gm/dl (2.5-4.0); Potassium 3.1 mmol/L (3.5-5.1); Total Protein 5.4 gm/dl (6.0-8.3)
[2023-08-02] MEDS: hydrOXYzine HCl 10 MG TAB PO PRN (07:55)
[2023-08-02] MEDS: rOPINIRole HCL 2 MG TABLET PO SCH ×3 (07:56→20:47)
[2023-08-02] MEDS: SUCRALFATE 1 GM TAB PO PRN (07:56)
[2023-08-02] MEDS: FAMOTIDINE 40 MG TABLET PO SCH (07:56)
[2023-08-02] MEDS: MIDODRINE HCL 2.5 MG TAB PO SCH ×3 (07:56→16:18)
[2023-08-02] MEDS: ESCITALOPRAM OXALATE 10 MG TAB PO SCH (07:56)
[2023-08-02] MEDS: MAGNESIUM OXIDE 400 MG TAB PO SCH ×2 (07:56→20:47)
[2023-08-02] MEDS: BUMETANIDE 1 MG TAB PO SCH ×2 (07:56→16:17)
[2023-08-02] MEDS: LACTULOSE SYRUP 20 GM/30 ML UDC PO SCH ×4 (07:57→20:46)
[2023-08-02] MEDS: HEPARIN SOD 5,000 UNIT/0.5 ML VIAL SQ SCH ×2 (07:57→20:46)
[2023-08-02] MEDS: CALCIUM CARBONATE 500 MG CHEWABLE TAB PO SCH ×3 (07:57→16:18)
[2023-08-02] MEDS: POTASSIUM CHLORIDE PWD 20 MEQ PACK PO SCH (08:01)
[2023-08-02] MEDS: MICONAZOLE NITRATE 2% CR 30 GM TUBE EXT SCH ×2 (08:02→20:49)
[2023-08-02 08:10] LABS: Basophils # (auto) 0.02 K/uL (0.00-0.20); Basophils % (auto) 0.7 %; Eosinophils # (auto) 0.08 K/uL (0.00-0.50); Eosinophils % (auto) 2.7 %; Hematocrit (blood only) 26.7 % (37.0-47.0); Hemoglobin 8.4 g/dl (12.0-16.0); Immature Granulocytes # (auto) 0.02 K/uL (0.01-0.20); Immature Granulocytes % (auto) 0.7 %; Lymphocytes # (auto) 0.46 K/uL (1.20-3.40); Lymphocytes % (auto) 15.5 %; Mean Corpuscular Hemoglobin 27.2 pg (25.0-34.0); Mean Corpuscular Hgb Conc 31.5 g/dL (32.0-36.0); Mean Corpuscular Volume 86.4 fL (80.0-100.0); Mean Platelet Volume 9.7 fL (9.4-12.4); Monocytes # (auto) 0.53 K/uL (0.11-0.59); Monocytes % (auto) 17.9 %; Neutrophils # (auto) 1.85 K/uL (1.40-6.50); Neutrophils % (auto) 62.5 %; Platelet Count 51 K/uL (130-400); RDW Coefficient of Variation 17.3 % (11.5-14.5); RDW Standard Deviation 54.4 fL (36.4-46.3); Red Blood Count 3.09 M/uL (4.20-5.40); White Blood Count 2.96 K/ul (4.8-10.8)
[2023-08-02] MEDS: DOCUSATE SODIUM 100 MG CAP PO SCH ×2 (09:39→20:46)
[2023-08-02] MEDS: POTASSIUM CHLORIDE / WTR 10 MEQ/100 ML PLCT IV SCH ×3 (09:39→13:04)
[2023-08-02] MEDS: rifAXIMin 550 MG TABLET PO SCH ×2 (09:39→20:50)
[2023-08-02] MEDS: PANTOprazole 40 MG TAB PO SCH ×2 (09:39→20:49)
[2023-08-02] MEDS: SPIRONOLACTONE 100 MG TAB PO SCH (09:39)
[2023-08-02] MEDS: cefTRIAXone SODIUM 2,000 MG in DEXTROSE 5 % MINI-B 50 ML IV SCH (16:16)
[2023-08-02] MEDS: DAPTOmycin 400 MG in SYRINGE 0 ML IV SCH (16:16)
[2023-08-02] MEDS: METOCLOPRAMIDE HCL INJ 5 MG/ML 2 ML VIAL IV PRN ×2 (16:22→22:19)
--- NOTE | 2023-08-02 17:15 | CT Scan Report ---
LEFT FEMUR CT CT DOSE: 1094.59 mGy.cm HISTORY: L prox medial thigh pain; abscess? phlegmon? TECHNIQUE: Multiaxial CT images of the left femur were performed and reformatted in the sagittal and coronal plane without the use of contrast. A dose lowering technique was utilized adhering to the pr inciples of RE. COMPARISON: None. FINDINGS: Small amount of ascites seen within the pelvis. There is skin thickening and subcutaneous e kenrick seen throughout the left thigh. No loculated fluid collections to suggest an abscess. No fractur e or dislocation within the left femur. No significant hip effusion. No significant knee effusion. Sc lerotic foci within the proximal left femur favor bone islands. The visualized pelvic bones are intac t. IMPRESSION: Subcutaneous edema and skin thickening throughout the left thigh. No loculated fluid collections to s uggest an abscess. ACT 112: Negative or not required by law. Electronically signed by: Forrest Byrne M.D. 08/02/2023 5:13 PM
--- NOTE | 2023-08-02 18:37 | Hospitalist Progress Note ---
Date of Service August 02, 2023 Assessment & Plan (1) Abdominal wall cellulitis: Plan: IMPROVED / nearly resolved cont rocephin 2gm daily cont daptomycin 400mg daily no evidence of panniculitis on physical exam or a definable abscess of the abd wall (2) Cellulitis of leg: Plan: b/l shins and b/l thighs left thigh is worse than right thigh ?phlegmon or abscess L prox medial ?? obtain CT femur/thigh to rule such out ice prn Rx for #1 should suffice serial exams (3) Acute hypotension: Plan: present on admission resolved cont midodrine 5mg TID resume bumex 1mg BID today resume aldactone today (4) JOANNA (acute kidney injury): Plan: peak Cr 1.58 now <1 resolved likely had been pre-renal from volume shifts from paracentesis, copious diuretics, hypotension, etc (5) Diabetes mellitus, type 2: Plan: last a1c 5% in June uncertain accuracy of her a1c due to chronic anemia but either way her glucose levels have been acceptable in back to back hospital stays (6) Morbid obesity with BMI of 40.0-44.9, adult: Plan: patient's BMI has gone down with loss of volume from cirrhosis (7) Refractory ascites: Plan: at this point is on twice weekly schedule for paracentesis pleurX contraindication/not advised due to infection risk and will ultimately be seeking out liver transplant appreciate IR assistance s/p paracentesis 2 days ago fluid studies not suggestive of SBP culture remains negative cont bumex 1mg BID resume aldactone today (8) Anemia: Plan: multi-factorial has had significant Fe Def in the recent past s/p IV venofer daily CBC while here H/H acceptable today no evidence of any GI bleeding stool heme neg (9) Portal vein thrombosis: Plan: previously on lovenox but this has been stopped due to frequent paracentesis, low platelets, etc (10) Cirrhosis: Plan: 2nd GILLESPIE frequent admissions for complications from such - HE, volume overload, JOANNA, etc [facility] ([facility]) Hyponatremia: Plan: 2nd to diuretics, cirrhosis, etc stable Na level today daily BMP (12) Pancytopenia: Plan: 2nd cirrhosis stable cell lines today (13) TBI (traumatic brain injury): Plan: history of such (14) History of CVA (cerebrovascular accident): Plan: 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 (15) Chronic post-traumatic headache: Plan: treat symptoms Plan progressing at her request will obtain psych consult update when able replace low K Admission and Anticipated Discharge Date Admission Date: July 29, 2023 Subjective appetite still off nausea still present no abd pain no melena stools but having frequent loose stools from lactulose main complaint is that of L proximal medial thigh pain - she feels a "lump" in this region legs are still sore b/l no further chills no fevers wants to talk with the behavioral liasion Review of Systems Review of Systems: gen - no fevers or chills cv - no chest pain, no orthopnea pulm - no dyspnea or YAN or wheezing Physical Exam Physical Exam: gen - sitting at side of bed, mentation and speech wnl today; awake/alert mouth - MMM, no lesions neck - no JVD heart - RRR, s1 s2, 2/6 EDUARDO LUSB lungs - CTA b/l abd - distension (ascites) modestly worse today, BS+, NT abdominal wall and abdomen, no HSM; 2 paracentesis sites with sutures intact and no leaking of ascites; abdominal wall - lower wall cellulitis nearly resolved; no warmth, scant pink erythema only ext - 2+ edema from feet to thighs; pulses 2+ b/l skin - abd wall findings as above; stasis changes b/l shins; suspected cellulitis b/l shins improved; R thigh erythema improved; left thigh proximal medial aspect - thickened, edematous skin but palpable abscess but she is very tender in this location to palpation psych - borderline tearful Results & Data Results & Data Vital Signs (Past 12 Hours) Vital Signs Temp Pulse Pulse Resp BP Pulse Ox O2 Del Method 08/02/23 15:34 36.9 C 86 18 152/84 H 97 Room Air 08/02/23 13:59 78 08/02/23 12:00 36.6 C 88 18 134/79 97 Room Air 08/02/23 07:53 36.4 C L 79 18 118/75 98 Room Air Laboratory Results Laboratory Results - last 24 hr 08/02/23 05:40 WBC 2.96 L RBC 3.09 L Hgb 8.4 L Hct 26.7 L MCV 86.4 MCH 27.2 MCHC 31.5 L RDW Std Deviation 54.4 H RDW Coeff of Henna 17.3 H Plt Count 51 L MPV 9.7 Immature Gran % (Auto) 0.7 Neut % (Auto) 62.5 Lymph % (Auto) 15.5 [place] % (Auto) 17.9 Eos % (Auto) 2.7 Baso % (Auto) 0.7 Neut # (Auto) 1.85 Lymph # (Auto) 0.46 L [place] # (Auto) 0.53 Eos # (Auto) 0.08 Baso # (Auto) 0.02 Immature Gran # (Auto) 0.02 Sodium 134 L Potassium 3.1 L Chloride 101 Carbon Dioxide 27 Anion Gap 6 BUN 12 Creatinine 0.83 Est Cr Clr Drug Dosing 103.9 Est GFR ( Amer) 100.8 Est GFR (Non-Af Amer) 87.0 BUN/Creatinine Ratio 14.5 Glucose 120 H Calcium 8.4 L Total Bilirubin 1.6 H D AST 42 H ALT 18 Alkaline Phosphatase 57 Total Protein 5.4 L Albumin 3.5 Globulin 1.9 L Albumin/Globulin Ratio 1.8 PG Care Time/CCT Total # of Minutes Spent Total Time Spent with Patient: Total time spent is greater than 50% in coordination of care (as documented) at patient's floor/unit and/or counseling patient: Coding Level of Care Code 64347 SUB INP/OBS CARE 2/35MIN Diagnoses Abdominal wall cellulitis L03.311 Cellulitis of leg L03.119 Acute hypotension I95.9 JOANNA (acute kidney injury) N17.9 Diabetes mellitus, type 2 E11.9 Morbid obesity with BMI of 40.0-44.9, adult E66.01; Z68.41 Refractory ascites R18.8 Anemia D64.9 Portal vein thrombosis I81 Cirrhosis K74.60 Hyponatremia E87.1 Pancytopenia D61.818 TBI (traumatic brain injury) S06.9X9A History of CVA (cerebrovascular accident) Z86.73 Chronic post-traumatic headache G44.329
[2023-08-02] MEDS: MICONAZOLE NITRATE 2% VAG CR 45 GM TUBE PV SCH (20:49)
[2023-08-03] MEDS: hydrOXYzine HCl 10 MG TAB PO PRN ×2 (00:26→10:08)
[2023-08-03] MEDS: ALPRAZolam 0.5 MG TABLET PO PRN ×2 (00:39→23:01)
[2023-08-03] MEDS: LEVOTHYROXINE SODIUM 150 MCG TABLET PO SCH (05:34)
[2023-08-03 07:05] LABS: BUN Creatinine Ratio 13.5 (10-20); Calcium 8.7 mg/dl (8.6-10.3); Creatinine Clr Calc Pharmacy 96.9 ml/min; Est GFR (African American) 92.7 ml/min; Est GFR (Non-African American) 79.9 ml/min; Potassium 3.3 mmol/L (3.5-5.1)
[2023-08-03 07:19] LABS: Basophils # (auto) 0.04 K/uL (0.00-0.20); Eosinophils # (auto) 0.29 K/uL (0.00-0.50); Eosinophils % (auto) 7.1 %; Hematocrit (blood only) 29.1 % (37.0-47.0); Hemoglobin 9.1 g/dl (12.0-16.0); Immature Granulocytes # (auto) 0.01 K/uL (0.01-0.20); Immature Granulocytes % (auto) 0.2 %; Lymphocytes # (auto) 0.65 K/uL (1.20-3.40); Mean Corpuscular Hemoglobin 26.8 pg (25.0-34.0); Mean Corpuscular Hgb Conc 31.3 g/dL (32.0-36.0); Mean Corpuscular Volume 85.8 fL (80.0-100.0); Mean Platelet Volume 9.5 fL (9.4-12.4); Monocytes # (auto) 0.56 K/uL (0.11-0.59); Monocytes % (auto) 13.8 %; Neutrophils # (auto) 2.52 K/uL (1.40-6.50); Neutrophils % (auto) 61.9 %; Platelet Count 64 K/uL (130-400); RDW Coefficient of Variation 17.7 % (11.5-14.5); RDW Standard Deviation 54.5 fL (36.4-46.3); Red Blood Count 3.39 M/uL (4.20-5.40); White Blood Count 4.07 K/ul (4.8-10.8)
[2023-08-03] MEDS: MAGNESIUM OXIDE 400 MG TAB PO SCH ×2 (08:01→20:47)
[2023-08-03] MEDS: SPIRONOLACTONE 100 MG TAB PO SCH (08:01)
[2023-08-03] MEDS: CALCIUM CARBONATE 500 MG CHEWABLE TAB PO SCH ×3 (08:01→17:35)
[2023-08-03] MEDS: rOPINIRole HCL 2 MG TABLET PO SCH ×3 (08:01→23:00)
[2023-08-03] MEDS: BUMETANIDE 1 MG TAB PO SCH ×2 (08:01→17:34)
[2023-08-03] MEDS: rifAXIMin 550 MG TABLET PO SCH ×2 (08:01→20:50)
[2023-08-03] MEDS: ESCITALOPRAM OXALATE 10 MG TAB PO SCH (08:01)
[2023-08-03] MEDS: MIDODRINE HCL 2.5 MG TAB PO SCH ×3 (08:01→17:33)
[2023-08-03] MEDS: PANTOprazole 40 MG TAB PO SCH ×2 (08:01→20:48)
[2023-08-03] MEDS: HEPARIN SOD 5,000 UNIT/0.5 ML VIAL SQ SCH ×2 (08:02→20:44)
[2023-08-03] MEDS: MICONAZOLE NITRATE 2% CR 30 GM TUBE EXT SCH ×2 (08:02→20:48)
[2023-08-03] MEDS: FAMOTIDINE 40 MG TABLET PO SCH (08:02)
[2023-08-03] MEDS: LACTULOSE SYRUP 20 GM/30 ML UDC PO SCH ×3 (08:02→20:47)
[2023-08-03] MEDS: oxyCODONE HCL IR 5 MG TAB (IMMEDIATE RELEASE) PO PRN ×2 (10:08→23:02)
[2023-08-03] MEDS: METOCLOPRAMIDE HCL INJ 5 MG/ML 2 ML VIAL IV PRN ×2 (10:08→18:53)
[2023-08-03] MEDS: DOCUSATE SODIUM 100 MG CAP PO SCH ×2 (10:09→20:44)
[2023-08-03] MEDS: POTASSIUM CHLORIDE CRTAB 20 MEQ TABCR PO SCH ×3 (10:18→20:49)
[2023-08-03] MEDS: DAPTOmycin 400 MG in SYRINGE 0 ML IV SCH (15:48)
[2023-08-03] MEDS: cefTRIAXone SODIUM 2,000 MG in DEXTROSE 5 % MINI-B 50 ML IV SCH (15:49)
[2023-08-03 18:46] LABS: Influenza A virus by PCR Negative (Neg); Influenza B virus by PCR Negative (Neg); RSV by PCR Negative (Neg)
[2023-08-03] MEDS: ACETAMINOPHEN 500 MG TAB PO PRN (18:52)
[2023-08-03 19:03] LABS: SARS CoV2 RNA(COVID-19) Ceph POSITIVE (Negative)
--- NOTE | 2023-08-03 20:12 | Hospitalist Progress Note ---
Date of Service August 03, 2023 Assessment & Plan (1) COVID-19: Plan: patient with systemic infectious symptoms - cold chills, fatigue, poor appetite, nausea, diarrhea, myalgias. these symptoms had persisted despite Rx of her abdominal wall cellulitis (which is nearly resolved) and cellulitis of her legs - also improved. elected to perform COVID/flu/RSV swab. this returned POSITIVE for COVID. Although she had a + COVID test in early April her COVID PCR in June was negative. thus, I do believe this is RECURRENT COVID infection. COVID would explain many of her reported symptoms. Move to airborne isolation. no indication for steroids at this time. Remdesivir contraindicated due to cirrhosis. supportive care. check cbc, cmp, CPK in am. (2) Diarrhea: Plan: could be due to #1 could be from her laxatives could be c diff in light of antibiotic usage for #3 below thus check a c diff (3) Abdominal wall cellulitis: Plan: resolved remains on rocephin 2gm daily + daptomycin 400mg daily -- mainly for #4 at this point there has been no evidence of panniculitis on physical exam or a definable abscess of the abd wall at any time (4) Cellulitis of leg: Plan: b/l shins and b/l thighs daily cellulitis resolved right thigh cellulitis resolved left thigh cellulitis nearly resolved cont rocephin/dapto 1 more day then convert to PO abx (5) Acute hypotension: Plan: present on admission resolved cont midodrine 5mg TID (6) JOANNA (acute kidney injury): Plan: peak Cr 1.58 at admission now <1 resolved likely had been pre-renal from volume shifts from paracentesis, copious diuretics, hypotension, etc (7) Diabetes mellitus, type 2: Plan: last a1c 5% in June uncertain accuracy of her a1c due to chronic anemia but either way her glucose levels have been acceptable in back to back hospital stays (8) Morbid obesity with BMI of 40.0-44.9, adult: Plan: patient's BMI has gone down with loss of volume from cirrhosis (9) Refractory ascites: Plan: at this point is on twice weekly schedule for paracentesis pleurX contraindication/not advised due to infection risk and will ultimately be seeking out liver transplant appreciate IR assistance s/p paracentesis late this past week fluid studies not suggestive of SBP culture negative cont bumex 1mg BID cont aldactone 100mg daily (10) Anemia: Plan: multi-factorial has had significant Fe Def in the recent past s/p IV venofer daily CBC while here H/H acceptable today no evidence of any GI bleeding stool heme neg (11) Portal vein thrombosis: Plan: previously on lovenox but this has been stopped due to frequent paracentesis, low platelets, etc (12) Cirrhosis: Plan: 2nd [place] frequent admissions for complications from such - HE, volume overload, JOANNA, etc follows with Dr Hilda Calvert [facility] GI (13) Hyponatremia: Plan: 2nd to diuretics, cirrhosis, etc stable Na level again today daily BMP (14) Pancytopenia: Plan: 2nd cirrhosis stable cell lines (15) TBI (traumatic brain injury): Plan: history of such (16) History of CVA (cerebrovascular accident): Plan: 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 (17) Chronic post-traumatic headache: Plan: treat symptoms (18) Hypothyroidism: Plan: last TSH 11.3 in late June which had been improving remains on levothyroxine 300mcg daily repeat a TSH in 2-3 weeks as outpatient Plan updated pt's by phone this evening told him about +COVID test for itching of skin - triamcinolone cream tid Admission and Anticipated Discharge Date Admission Date: July 29, 2023 Subjective having cold chills again appetite still very poor today - just doesn't feel like eating, and nausea continues having SEVERE diarrhea - numerous BMs starting about 0500 this am pure liquid stool has body aches especially in her legs b/l her legs have discomfort, pain/burning, and they "itch" mild stomach upset and abdominal wall pain off and on headaches anxious to talk with psychiatrist tele overnight wnl Review of Systems Review of Systems: gen - no fever, but having cold chills and simply doesn't feel well cv - no chest pain pulm - no cough or dyspnea GI - mild abdominal discomforts and cramps; no vomiting; severe diarrhea - no dysuria Physical Exam Physical Exam: gen - sitting at side of bed, looks tired, but awake and oriented mouth - MMM, no lesions neck - no JVD heart - RRR, s1 s2, 2/6 EDUARDO LUSB lungs - CTA b/l abd - ascites about the same, BS+, NT abdominal wall and abdomen, no HSM; 2 paracentesis sites with sutures intact and no leaking of ascites from any loc ation; abdominal wall cellulitis resolved ext - 2+ edema from feet to thighs; pulses 2+ b/l skin - stasis changes b/l shins; mild scale/peeling of skin on b/l shins; suspected cellulitis b/l shins just about resolved; R thigh erythema resolved; left thigh proximal medial aspect - thickened, edematous skin still present but the cellulitis portion is improved neuro - baseline tremors Results & Data Results & Data Vital Signs (Past 12 Hours) Vital Signs Temp Pulse Pulse Resp BP Pulse Ox O2 Del Method 08/03/23 19:54 36.7 C 88 20 151/96 H 99 Room Air 08/03/23 14:03 89 08/03/23 12:22 36.6 C 93 H 16 137/78 96 Room Air Laboratory Results Laboratory Results - last 24 hr 08/03/23 08/03/23 05:59 Unknown WBC 4.07 L RBC 3.39 L Hgb 9.1 L Hct 29.1 L MCV 85.8 MCH 26.8 MCHC 31.3 L RDW Std Deviation 54.5 H RDW Coeff of [place] 17.7 H Plt Count 64 L MPV 9.5 Immature Gran % (Auto) 0.2 Neut % (Auto) 61.9 Lymph % (Auto) 16.0 [place] % (Auto) 13.8 Eos % (Auto) 7.1 Baso % (Auto) 1.0 Neut # (Auto) 2.52 Lymph # (Auto) 0.65 L [place] # (Auto) 0.56 Eos # (Auto) 0.29 Baso # (Auto) 0.04 Immature Gran # (Auto) 0.01 Sodium 134 L Potassium 3.3 L Chloride 100 Carbon Dioxide 26 Anion Gap 8 BUN 12 Creatinine 0.89 Est Cr Clr Drug Dosing 96.9 Est GFR ( Amer) 92.7 Est GFR (Non-Af Amer) 79.9 BUN/Creatinine Ratio 13.5 Glucose 106 H Calcium 8.7 SARS-CoV-2 (PCR) POSITIVE A* Influenza Type A (PCR) Negative Influenza Type B (PCR) Negative RSV (RT-PCR) Negative PG Care Time/CCT Total # of Minutes Spent Total Time Spent with Patient: Total time spent is greater than 50% in coordination of care (as documented) at patient's floor/unit and/or counseling patient: Coding Level of Care Code 52303 SUB INP/OBS CARE 50MIN Diagnoses COVID-19 U07.1 Diarrhea R19.7 Abdominal wall cellulitis L03.311 Cellulitis of leg L03.119 Acute hypotension I95.9 JOANNA (acute kidney injury) N17.9 Diabetes mellitus, type 2 E11.9 Morbid obesity with BMI of 40.0-44.9, adult E66.01; Z68.41 Refractory ascites R18.8 Anemia D64.9 Portal vein thrombosis I81 Cirrhosis K74.60 Hyponatremia E87.1 Pancytopenia D61.818 TBI (traumatic brain injury) S06.9X9A History of CVA (cerebrovascular accident) Z86.73 Chronic post-traumatic headache G44.329 Hypothyroidism E03.9
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
[2023-08-03] MEDS: TRIAMCINOLONE ACET 0.1% CR 80 GM TUBE EXT SCH (20:50)
[2023-08-03] MEDS: MICONAZOLE NITRATE 2% VAG CR 45 GM TUBE PV SCH (20:52)
[2023-08-04] MEDS: hydrOXYzine HCl 10 MG TAB PO PRN ×3 (00:18→22:31)
[2023-08-04] MEDS ORDERED: CYCLOBENZAPRINE HCL 10 MG TAB PO STA (03:50)
[2023-08-04] MEDS: LEVOTHYROXINE SODIUM 150 MCG TABLET PO SCH (05:54)
[2023-08-04] MEDS: MIDODRINE HCL 2.5 MG TAB PO SCH ×3 (08:57→16:36)
[2023-08-04] MEDS: BUMETANIDE 1 MG TAB PO SCH ×2 (08:57→16:36)
[2023-08-04] MEDS: FAMOTIDINE 40 MG TABLET PO SCH (08:58)
[2023-08-04] MEDS: ESCITALOPRAM OXALATE 10 MG TAB PO SCH (08:58)
[2023-08-04] MEDS: HEPARIN SOD 5,000 UNIT/0.5 ML VIAL SQ SCH ×2 (08:58→20:14)
[2023-08-04] MEDS: LACTULOSE SYRUP 20 GM/30 ML UDC PO SCH ×3 (08:59→20:11)
[2023-08-04] MEDS: CALCIUM CARBONATE 500 MG CHEWABLE TAB PO SCH ×3 (08:59→16:36)
[2023-08-04] MEDS: MAGNESIUM OXIDE 400 MG TAB PO SCH ×2 (09:00→20:13)
[2023-08-04] MEDS: PANTOprazole 40 MG TAB PO SCH ×2 (09:00→20:12)
[2023-08-04] MEDS: MICONAZOLE NITRATE 2% CR 30 GM TUBE EXT SCH ×2 (09:00→20:15)
[2023-08-04] MEDS: POTASSIUM CHLORIDE CRTAB 20 MEQ TABCR PO SCH ×3 (09:01→20:14)
[2023-08-04] MEDS: rOPINIRole HCL 2 MG TABLET PO SCH ×3 (09:01→22:29)
[2023-08-04] MEDS: SPIRONOLACTONE 100 MG TAB PO SCH (09:01)
[2023-08-04] MEDS: rifAXIMin 550 MG TABLET PO SCH ×2 (09:01→20:13)
[2023-08-04] MEDS: TRIAMCINOLONE ACET 0.1% CR 80 GM TUBE EXT SCH ×3 (09:02→20:15)
[2023-08-04] MEDS: DOCUSATE SODIUM 100 MG CAP PO SCH ×2 (09:21→20:12)
[2023-08-04] MEDS: METOCLOPRAMIDE HCL INJ 5 MG/ML 2 ML VIAL IV PRN ×2 (09:22→20:23)
[2023-08-04 10:07] LABS: Basophils # (auto) 0.04 K/uL (0.00-0.20); Basophils % (auto) 1.2 %; Eosinophils # (auto) 0.21 K/uL (0.00-0.50); Eosinophils % (auto) 6.1 %; Hematocrit (blood only) 29.7 % (37.0-47.0); Hemoglobin 9.5 g/dl (12.0-16.0); Immature Granulocytes # (auto) 0.02 K/uL (0.01-0.20); Immature Granulocytes % (auto) 0.6 %; Lymphocytes # (auto) 0.64 K/uL (1.20-3.40); Lymphocytes % (auto) 18.7 %; Mean Corpuscular Hemoglobin 27.3 pg (25.0-34.0); Mean Corpuscular Volume 85.3 fL (80.0-100.0); Mean Platelet Volume 9.8 fL (9.4-12.4); Monocytes # (auto) 0.44 K/uL (0.11-0.59); Monocytes % (auto) 12.9 %; Neutrophils # (auto) 2.07 K/uL (1.40-6.50); Neutrophils % (auto) 60.5 %; Platelet Count 67 K/uL (130-400); RDW Coefficient of Variation 17.9 % (11.5-14.5); RDW Standard Deviation 54.8 fL (36.4-46.3); Red Blood Count 3.48 M/uL (4.20-5.40); White Blood Count 3.42 K/ul (4.8-10.8)
[2023-08-04 10:22] LABS: Albumin Globulin Ratio 1.6 (0.9-2); Albumin Level 3.8 gm/dl (3.4-5.0); BUN Creatinine Ratio 12.8 (10-20); Bilirubin,Total 2.4 mg/dl (0.2-1.0); Creatinine Clr Calc Pharmacy 101.4 ml/min; Est GFR (African American) 96.6 ml/min; Est GFR (Non-African American) 83.3 ml/min; Globulin 2.4 gm/dl (2.5-4.0); Potassium 3.7 mmol/L (3.5-5.1); Total Protein 6.2 gm/dl (6.0-8.3)
[2023-08-04] MEDS: oxyCODONE HCL IR 5 MG TAB (IMMEDIATE RELEASE) PO PRN ×2 (11:16→18:37)
[2023-08-04] MEDS ORDERED: CYCLOBENZAPRINE HCL 5 MG TAB PO ONE (15:23)
[2023-08-04] MEDS: cefTRIAXone SODIUM 2,000 MG in DEXTROSE 5 % MINI-B 50 ML IV SCH (15:41)
[2023-08-04] MEDS: DAPTOmycin 400 MG in SYRINGE 0 ML IV SCH (15:41)
[2023-08-04] MEDS ORDERED: VENLAFAXINE HCL XR 37.5 MG CAPXR PO ONE (16:27)
--- NOTE | 2023-08-04 18:57 | Hospitalist Progress Note ---
Date of Service August 04, 2023 Assessment & Plan (1) COVID-19: Plan: patient with systemic infectious symptoms - cold chills, fatigue, poor appetite, nausea, diarrhea, myalgias. these symptoms had persisted despite Rx of her abdominal wall cellulitis (which is now resolved) and ?cellulitis of her legs. elected to perform COVID/flu/RSV swab 08/03/23 - returned POSITIVE for COVID. Although she had a + COVID test in early April her COVID PCR in June was negative. thus, I do believe this is RECURRENT COVID infection. COVID would explain many of her reported symptoms. Cont airborne isolation. no indication for steroids at this time. Remdesivir contraindicated due to cirrhosis. supportive care. labs stable today. (2) Rash: Plan: b/l thighs, b/l shins. at baseline she has chronic stasis changes over the shins. for the last few days both shins have been more erythematous and warm than baseline. the rash over both thighs and the skin over both shins started prior to this hospitalization or about the time of admission - she is not certain. at times the thighs are pruritic, at other times they are painful ("burning" sensation) CT L thigh without abscess/phlegmon/air in tissue to suggest nec fasc/etc b/l LE dopplers neg for DVT despite rocephin/daptomycin (has been on such for abdominal wall cellulitis) her rash and the erythema of both legs hasn't changed - maybe only slightly improved. pictures taken today after verbal consent - photos sent to [facility] dermatology - capillaritis?? other? could rash be due to COVID infection?? may need formal derm consultation some of the rash looks like vasculitis, some of it looks like cellulitis, some of it looks irritant in nature. does NOT look like drug rxn. ordered triamcinolone cream 0.1% TID for the thighs to help with itching, etc. re-eval tomorrow; low threshold for derm consultation. check esr/crp to r/o vasculitis. (3) Abdominal wall cellulitis: Plan: resolved remains on rocephin 2gm daily + daptomycin 400mg daily -- mainly to cover #4 there has been no evidence of panniculitis on physical exam or a definable abscess of the abd wall at any time (4) Cellulitis of leg: Plan: b/l shins and ?? b/l thighs cont rocephin/dapto to be on safe side re-eval tomorrow see discussion in #2 (5) Diarrhea: Plan: c diff negative partially due to lactulose could be due to COVID-19 infection could be abx-associated diarrhea titrate lactulose for 3 BMs/day (6) Acute hypotension: Plan: present on admission resolved cont midodrine 5mg TID (7) JOANNA (acute kidney injury): Plan: peak Cr 1.58 at admission remains <1 resolved likely had been pre-renal from volume shifts from paracentesis, copious diuretics, hypotension, etc (8) Diabetes mellitus, type 2: Plan: last a1c 5% in June uncertain accuracy of her a1c due to chronic anemia but either way her glucose levels have been acceptable in back to back hospital stays (9) Morbid obesity with BMI of 40.0-44.9, adult: Plan: patient's BMI has gone down with loss of volume from cirrhosis BMI now 35 (10) Refractory ascites: Plan: at this point is on twice weekly schedule for paracentesis pleurX contraindicated/not advised due to infection risk and will ultimately be seeking out liver transplant appreciate IR assistance s/p paracentesis late this past week fluid studies not suggestive of SBP culture negative cont bumex 1mg BID cont aldactone 100mg daily in light of abd wall cellulitis would wait a few more days for a repeat paracentesis to ensure the abdominal wall remains stable (11) Anemia: Plan: multi-factorial has had significant Fe Def in the recent past s/p IV venofer daily CBC while here H/H again acceptable today no evidence of any GI bleeding stool heme neg (12) Portal vein thrombosis: Plan: previously on lovenox but this has been stopped due to frequent paracentesis, low platelets, etc (13) Cirrhosis: Plan: 2nd GILLESPIE frequent admissions for complications from such - HE, volume overload, JOANNA, etc follows with Dr Hilda Calvert [facility] GI (14) Hyponatremia: Plan: 2nd to diuretics, cirrhosis, etc stable Na level again today (134) daily BMP (15) Pancytopenia: Plan: 2nd cirrhosis stable cell lines on CBC today (16) TBI (traumatic brain injury): Plan: history of such (17) History of CVA (cerebrovascular accident): Plan: 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 (18) Chronic post-traumatic headache: Plan: treat symptoms (19) Hypothyroidism: Plan: last TSH 11.3 in late June which had been improving remains on levothyroxine 300mcg daily repeat a TSH in 2-3 weeks as outpatient Plan updated pt's by phone yesterday evening told him about +COVID test cont airborne isolation Admission and Anticipated Discharge Date Admission Date: July 29, 2023 Subjective remains fatigued/tired no fevers chills are better appetite still not great still with nausea stooling has slowed down she is frustrated that she has COVID again - had it in March when her entire family was sick with COVID main complaint today again is discomfort in her legs, L>R, especially in the thighs burning sensation some itching abdominal wall - not painful, not itchy Review of Systems 2 Review of Systems: gen - no fevers cv - no chest pain, no orthopnea, ongoing edema pulm - no dyspnea or cough or wheezing or YAN GI - no vomiting but continues with nausea - no dysuria musculo - myalgias resolved; no arthralgias Physical Exam 2 Physical Exam: gen - sitting at side of bed, looks tired and fatigued, but awake and oriented mouth - MMM, no lesions neck - no JVD heart - RRR, s1 s2, 2/6 EDUARDO LUSB lungs - CTA b/l, no rales or wheeze abd - ascites about the same, BS+, NT abdominal wall and abdomen, no HSM; 2 paracentesis sites with sutures intact and no leaking of ascites from any location; abdominal wall cellulitis fully resolved; she has lymphedema of abdominal wall at inferior most portion of abdomen ext - 2+ edema from feet to thighs - about the same as previous; pulses 2+ b/l skin - see photos below; verbal consent obtained from patient to take these photos; background of stasis changes b/l shins; mild scale/peeling of skin on b/l shins the shins are warm to touch; occasional petechial lesion on the shins; left thigh - petechiae present, mild erythema medial thigh - modestly warm; lymphedema present of left medial thigh; tender to touch medial thigh; right thigh - similar to left thigh (erythema, some petechiae, etc); rash on thighs does not marcy neuro - baseline tremors psych - a/o x 3 Results & Data Results & Data Vital Signs (Past 12 Hours) Vital Signs Temp Pulse Pulse Pulse Resp BP Pulse Ox 08/04/23 16:41 36.8 C 82 18 128/81 98 08/04/23 15:05 85 08/04/23 11:45 37.0 C 81 20 117/73 93 08/04/23 11:14 36.5 C 70 20 135/90 96 08/04/23 07:55 36.7 C 82 18 115/71 96 08/04/23 07:08 84 O2 Del Method 08/04/23 16:41 Room Air 08/04/23 15:05 08/04/23 11:45 Room Air 08/04/23 11:14 Room Air 08/04/23 07:55 Room Air 08/04/23 07:08 Laboratory Results Laboratory Results - last 24 hr 08/03/23 08/04/23 Unknown 09:40 WBC 3.42 L RBC 3.48 L Hgb 9.5 L Hct 29.7 L MCV 85.3 MCH 27.3 MCHC 32.0 RDW Std Deviation 54.8 H RDW Coeff of Henna 17.9 H Plt Count 67 L MPV 9.8 Immature Gran % (Auto) 0.6 Neut % (Auto) 60.5 Lymph % (Auto) 18.7 Mayes % (Auto) 12.9 Eos % (Auto) 6.1 Baso % (Auto) 1.2 Neut # (Auto) 2.07 Lymph # (Auto) 0.64 L Mayes # (Auto) 0.44 Eos # (Auto) 0.21 Baso # (Auto) 0.04 Immature Gran # (Auto) 0.02 Sodium 134 L Potassium 3.7 Chloride 99 Carbon Dioxide 28 Anion Gap 7 BUN 11 Creatinine 0.86 Est Cr Clr Drug Dosing 101.4 Est GFR ( Amer) 96.6 Est GFR (Non-Af Amer) 83.3 BUN/Creatinine Ratio 12.8 Glucose 98 Calcium 9.0 Total Bilirubin 2.4 H AST 52 H ALT 22 Alkaline Phosphatase 57 Total Creatine Kinase 191 Total Protein 6.2 Albumin 3.8 Globulin 2.4 L Albumin/Globulin Ratio 1.6 Stl C. diff Tox B Gene Negative Cdiff Gene SARS-CoV-2 (PCR) POSITIVE A* Influenza Type A (PCR) Negative Influenza Type B (PCR) Negative RSV (RT-PCR) Negative PG Care Time/CCT Total # of Minutes Spent Total Time Spent with Patient: Total time spent is greater than 50% in coordination of care (as documented) at patient's floor/unit and/or counseling patient: Coding Level of Care Code 98475 SUB INP/OBS CARE 3/50MIN Diagnoses COVID-19 U07.1 Rash R21 Abdominal wall cellulitis L03.311 Cellulitis of leg L03.119 Diarrhea R19.7 Acute hypotension I95.9 JOANNA (acute kidney injury) N17.9 Diabetes mellitus, type 2 E11.9 Morbid obesity with BMI of 40.0-44.9, adult E66.01; Z68.41 Refractory ascites R18.8 Anemia D64.9 Portal vein thrombosis I81 Cirrhosis K74.60 Hyponatremia E87.1 Pancytopenia D61.818 TBI (traumatic brain injury) S06.9X9A History of CVA (cerebrovascular accident) Z86.73 Chronic post-traumatic headache G44.329 Hypothyroidism E03.9
[2023-08-04] MEDS: MICONAZOLE NITRATE 2% VAG CR 45 GM TUBE PV SCH (20:18)
[2023-08-04] MEDS ORDERED: CYCLOBENZAPRINE HCL 5 MG TAB PO STA (21:44)
[2023-08-04] MEDS: ALPRAZolam 0.5 MG TABLET PO PRN (22:30)
[2023-08-05] MEDS: oxyCODONE HCL IR 5 MG TAB (IMMEDIATE RELEASE) PO PRN ×3 (04:30→23:58)
[2023-08-05] MEDS: LEVOTHYROXINE SODIUM 150 MCG TABLET PO SCH (05:44)
[2023-08-05 06:52] LABS: Basophils # (auto) 0.05 K/uL (0.00-0.20); Basophils % (auto) 1.1 %; Eosinophils # (auto) 0.33 K/uL (0.00-0.50); Hematocrit (blood only) 31.1 % (37.0-47.0); Hemoglobin 9.6 g/dl (12.0-16.0); Immature Granulocytes # (auto) 0.02 K/uL (0.01-0.20); Immature Granulocytes % (auto) 0.4 %; Lymphocytes # (auto) 0.74 K/uL (1.20-3.40); Lymphocytes % (auto) 15.7 %; Mean Corpuscular Hemoglobin 27.1 pg (25.0-34.0); Mean Corpuscular Hgb Conc 30.9 g/dL (32.0-36.0); Mean Corpuscular Volume 87.9 fL (80.0-100.0); Mean Platelet Volume 9.2 fL (9.4-12.4); Monocytes # (auto) 0.68 K/uL (0.11-0.59); Monocytes % (auto) 14.4 %; Neutrophils % (auto) 61.4 %; Platelet Count 69 K/uL (130-400); RDW Coefficient of Variation 17.6 % (11.5-14.5); RDW Standard Deviation 56.6 fL (36.4-46.3); Red Blood Count 3.54 M/uL (4.20-5.40); White Blood Count 4.72 K/ul (4.8-10.8)
[2023-08-05 07:13] LABS: BUN Creatinine Ratio 13.3 (10-20); Calcium 8.9 mg/dl (8.6-10.3); Creatinine Clr Calc Pharmacy 96.9 ml/min; Est GFR (African American) 91.4 ml/min; Est GFR (Non-African American) 78.9 ml/min; Potassium 3.9 mmol/L (3.5-5.1)
[2023-08-05] MEDS ORDERED: VENLAFAXINE HCL XR 75 MG CAPXR PO ONE (09:00)
[2023-08-05] MEDS: FAMOTIDINE 40 MG TABLET PO SCH (09:04)
[2023-08-05] MEDS: BUMETANIDE 1 MG TAB PO SCH (09:04)
[2023-08-05] MEDS: CALCIUM CARBONATE 500 MG CHEWABLE TAB PO SCH ×3 (09:04→16:47)
[2023-08-05] MEDS: HEPARIN SOD 5,000 UNIT/0.5 ML VIAL SQ SCH ×2 (09:05→21:18)
[2023-08-05] MEDS: LACTULOSE SYRUP 20 GM/30 ML UDC PO SCH ×3 (09:05→21:19)
[2023-08-05] MEDS: MAGNESIUM OXIDE 400 MG TAB PO SCH (09:05)
[2023-08-05] MEDS: MICONAZOLE NITRATE 2% CR 30 GM TUBE EXT SCH ×2 (09:05→21:13)
[2023-08-05] MEDS: SPIRONOLACTONE 100 MG TAB PO SCH (09:06)
[2023-08-05] MEDS: rifAXIMin 550 MG TABLET PO SCH ×2 (09:06→21:16)
[2023-08-05] MEDS: PANTOprazole 40 MG TAB PO SCH ×2 (09:06→21:16)
[2023-08-05] MEDS: rOPINIRole HCL 2 MG TABLET PO SCH ×3 (09:06→23:58)
[2023-08-05] MEDS: TRIAMCINOLONE ACET 0.1% CR 80 GM TUBE EXT SCH ×3 (09:07→21:13)
[2023-08-05] MEDS: MIDODRINE HCL 2.5 MG TAB PO SCH ×3 (09:07→16:46)
[2023-08-05] MEDS: DOCUSATE SODIUM 100 MG CAP PO SCH ×2 (09:21→21:18)
[2023-08-05] MEDS: ACETAMINOPHEN 500 MG TAB PO PRN (09:21)
[2023-08-05] MEDS: POTASSIUM CHLORIDE CRTAB 20 MEQ TABCR PO SCH ×3 (09:21→21:39)
--- NOTE | 2023-08-05 13:02 | Ultrasound Report ---
ULTRASOUND-GUIDED PARACENTESIS CLINICAL HISTORY: Ascites PROCEDURE: Procedure and risks were explained. Informed consent was obtained. A final timeout was com pleted. The abdomen was prepped and draped in sterile fashion. 1% buffered lidocaine was utilized for skin anesthesia. Utilizing ultrasound guidance, a 5 Faro[place] safety centesis catheter was advanced into the right upper quadrant pocket of ascites. Ultrasound images were obtained. A total of 4.7 L of ascites fluid was re moved, with 1 L sent to lab for analysis. The catheter was removed and (1) 3-0 nylon suture was utili zed to close the puncture site. The patient tolerated the procedure well. Vital signs will be monitor ed prior to discharge. IMPRESSION: Ultrasound-guided paracentesis as above. Performed, dictated, and signed by Marvin Greene PA-C; to be co-signed by Dr. Forrest Byrne. Electronically signed by: Forrest Byrne M.D. 08/05/2023 1:33 PM
[2023-08-05 13:13] LABS: Appearance Peritoneal Fluid Cloudy; Color Peritoneal Fluid Pink; Lymphocytes, Fluid 43 %; Mono,Macrophage,Mesothelial 50 %; Neutrophils, Fluid 7 %; RBC Peritoneal Fluid Auto 25000 /uL; WBC Peritoneal Fluid Auto 338 /ul (0-300)
[2023-08-05] MEDS: ALBUMIN 25% 25 GM/100 ML VIAL IV SCH ×4 (14:48→21:39)
[2023-08-05] MEDS: PROCHLORPERAZINE 5 MG in SYRINGE 4 ML IV SCH (16:44)
[2023-08-05] MEDS: cefTRIAXone SODIUM 2,000 MG in DEXTROSE 5 % MINI-B 50 ML IV SCH (16:44)
[2023-08-05] MEDS: BUMETANIDE 1 MG in SYRINGE 0 ML IV SCH (16:45)
[2023-08-05] MEDS: DAPTOmycin 400 MG in SYRINGE 0 ML IV SCH (16:45)
--- NOTE | 2023-08-05 17:39 | Hospitalist Progress Note ---
Date of Service August 05, 2023 Assessment & Plan (1) COVID-19: Plan: patient with systemic infectious symptoms - cold chills, fatigue, poor appetite, nausea, diarrhea, myalgias. these symptoms had persisted despite Rx of her abdominal wall cellulitis (which is now resolved) and ?cellulitis of her legs. elected to perform COVID/flu/RSV swab 08/03/23 - returned POSITIVE for COVID. Although she had a + COVID test in early April her COVID PCR in June was negative. thus, I do believe this is RECURRENT COVID infection. COVID would explain many of her reported symptoms. Cont airborne isolation. no indication for steroids at this time. Remdesivir contraindicated due to cirrhosis. supportive care. reviewed CBC and BMP 08/05 and these are stable and unchanged continues to be highly symptomatic of diarrhea and constitutional symptoms, no hypoxia or dyspnea (2) Rash: Plan: b/l thighs, b/l shins. at baseline she has chronic stasis changes over the shins. for the last few days both shins have been more erythematous and warm than baseline. the rash over both thighs and the skin over both shins started prior to this hospitalization or about the time of admission - she is not certain. at times the thighs are pruritic, at other times they are painful ("burning" sensation) CT L thigh without abscess/phlegmon/air in tissue to suggest nec fasc/etc b/l LE dopplers neg for DVT despite rocephin/daptomycin (has been on such for abdominal wall cellulitis) her rash and the erythema of both legs hasn't changed - maybe only slightly improved. reviewed photos 08/[address] Rodriguez's note - unchanged on my exam today. some of the rash looks like vasculitis, some of it looks like cellulitis, some of it looks irritant in nature. does NOT look like drug rxn. I also wonder about inflamed edema in setting of thrombocytopenia causing the appearance of this rash continue triamcinolone cream 0.1% TID for the thighs to help with itching, etc. re-eval tomorrow; low threshold for derm consultation. esr/crp reviewed and they are low (3) Abdominal wall cellulitis: Plan: resolved remains on rocephin 2gm daily + daptomycin 400mg daily -- mainly to cover #4 there has been no evidence of panniculitis on physical exam or a definable abscess of the abd wall at any time (4) Cellulitis of leg: Plan: b/l shins and ?? b/l thighs cont rocephin/dapto to be on safe side appears unchanged 08/05, will continue same antibiotics see discussion in #2 (5) Diarrhea: Plan: c diff negative partially due to lactulose - being held could be due to COVID-19 infection could be abx-associated diarrhea stop magnesium oxide titrate lactulose for 3 BMs/day (6) Acute hypotension: Plan: present on admission resolved cont midodrine 5mg TID (7) JOANNA (acute kidney injury): Plan: peak Cr 1.58 at admission remains <1 resolved likely had been pre-renal from volume shifts from paracentesis, copious diuretics, hypotension, etc (8) Diabetes mellitus, type 2: Plan: last a1c 5% in June uncertain accuracy of her a1c due to chronic anemia but either way her glucose levels have been acceptable in back to back hospital stays (9) Morbid obesity with BMI of 40.0-44.9, adult: Plan: patient's BMI has gone down with loss of volume from cirrhosis BMI now 35 (10) Refractory ascites: Plan: at this point is on twice weekly schedule for paracentesis pleurX contraindicated/not advised due to infection risk and will ultimately be seeking out liver transplant appreciate IR assistance s/p paracentesis late this past week fluid studies not suggestive of SBP culture negative she had increasing symptoms due to large ascites today ordered paracentesis, 4.7 L removed. cell count is elevated but only a few percent are polys not consistent with SBP, follow-up culture. ordered albumin 100 g x 1 following paracentesis cont bumex - but will change to IV because of severe edema and anasarca potentially contributing to issues with cellulitis and skin inflammation above, will diurese with albumin starting tomorrow cont aldactone 100mg daily (11) Anemia: Plan: multi-factorial has had significant Fe Def in the recent past s/p IV venofer daily CBC while here H/H again acceptable 08/05 no evidence of any GI bleeding stool heme neg (12) Portal vein thrombosis: Plan: previously on lovenox but this has been stopped due to frequent paracentesis, low platelets, etc (13) Cirrhosis: Plan: 2nd GILLESPIE frequent admissions for complications from such - HE, volume overload, JOANNA, etc follows with Dr Hilda Calvert, [facility] GI has follow-ups with liver transplant in August both at [facility] and [facility] (14) Hyponatremia: Plan: 2nd to diuretics, cirrhosis, etc stable Na level again today (133) daily BMP (15) Pancytopenia: Plan: 2nd cirrhosis stable cell lines on CBC today (16) TBI (traumatic brain injury): Plan: history of such (17) History of CVA (cerebrovascular accident): Plan: 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 Seen following paracentesis she reports improvement in abdominal pain and distention and now breathing is normal. She has severe bilateral lower extremity edema and abdominal wall edema that she states is relatively new. She has a tender painful rash on legs especially upper inner thighs and her buttocks area. She is having frequent diarrhea stools states 15 times despite not being on lactulose for a few days Physical Exam 2 Physical Exam: PHYSICAL EXAMINATION Last 24h vital signs reviewed, see documentation in flowsheet General: comfortable appearing, no distress, sitting in chair HEENT: Normocephalic, atraumatic, pupils round and equal, sclerae anicteric, no conjunctival injection, moist mucus membranes Lungs: Normal respiratory effort. Clear to auscultation bilaterally. No RRW Heart: Regular rate and rhythm, hyperdynamic,no murmurs. No JVD Abdomen: Soft, nontender, distended with large ascites, abdominal wall edema present. Bowel sounds present. Extremities: Warm, dry, well-perfused. 3+ extremity edema. feet legs thighs and pannus skin: Warm dry there is some chronic bilateral lower extremity erythema at the shins but on the right it appears much more red and is warm, there is erythema present both inner thighs with warmth appearance of dilated capillaries not discrete petechia, abdominal wall cellulitis appears to have resolved there is mild erythema of the edematous part of the pannus which appears a little bit inflamed in the central area Neuro: Alert and oriented x 4, face symmetric, no margoth asterixis but having some gross tremor of left upper extremity that is chronic Psych: Normal affect and behavior Results & Data Results & Data Vital Signs (Past 12 Hours) Vital Signs Temp Pulse Pulse Pulse Resp BP Pulse Ox 08/05/23 16:41 36.8 C 81 20 112/71 97 08/05/23 13:03 85 110/67 08/05/23 12:40 36.7 C 93 H 19 119/68 97 08/05/23 12:07 81 19 118/78 100 08/05/23 11:47 83 19 128/80 95 08/05/23 11:03 85 132/80 08/05/23 10:48 36.6 C 82 135/85 96 08/05/23 08:04 87 19 136/92 99 08/05/23 07:18 84 O2 Del Method 08/05/23 16:41 Room Air 08/05/23 13:03 08/05/23 12:40 Room Air 08/05/23 12:07 Room Air 08/05/23 11:47 Room Air 08/05/23 11:03 08/05/23 10:48 Room Air 08/05/23 08:04 Room Air 08/05/23 07:18 Laboratory Results 08/05/23 06:37 08/05/23 06:37 PG Care Time/CCT Total # of Minutes Spent Total Time Spent with Patient: Total time spent is greater than 50% in coordination of care (as documented) at patient's floor/unit and/or counseling patient: Coding Level of Care Code 68794 SUB INP/OBS CARE 3/50MIN Diagnoses COVID-19 U07.1 Rash R21 Abdominal wall cellulitis L03.311 Cellulitis of leg L03.119 Diarrhea R19.7 Acute hypotension I95.9 JOANNA (acute kidney injury) N17.9 Diabetes mellitus, type 2 E11.9 Morbid obesity with BMI of 40.0-44.9, adult E66.01; Z68.41 Refractory ascites R18.8 Anemia D64.9 Portal vein thrombosis I81 Cirrhosis K74.60 Hyponatremia E87.1 Pancytopenia D61.818 TBI (traumatic brain injury) S06.9X9A History of CVA (cerebrovascular accident) Z86.73 Chronic post-traumatic headache G44.329 Hypothyroidism E03.9
[2023-08-05] MEDS: MICONAZOLE NITRATE 2% VAG CR 45 GM TUBE PV SCH (21:14)
[2023-08-05] MEDS: hydrOXYzine HCl 10 MG TAB PO PRN (23:58)
[2023-08-05] MEDS: ALPRAZolam 0.5 MG TABLET PO PRN (23:58)
[2023-08-06] MEDS: LEVOTHYROXINE SODIUM 150 MCG TABLET PO SCH (06:03)
[2023-08-06 07:13] LABS: BUN Creatinine Ratio 18.7 (10-20); Calcium 8.7 mg/dl (8.6-10.3); Creatinine Clr Calc Pharmacy 116.3 ml/min; Est GFR (African American) 113.9 ml/min; Est GFR (Non-African American) 98.3 ml/min; Magnesium 1.9 mg/dl (1.7-2.4); Potassium 3.6 mmol/L (3.5-5.1)
[2023-08-06] MEDS: MIDODRINE HCL 2.5 MG TAB PO SCH ×3 (09:17→18:27)
[2023-08-06] MEDS: PANTOprazole 40 MG TAB PO SCH ×2 (09:17→20:32)
[2023-08-06] MEDS: MICONAZOLE NITRATE 2% CR 30 GM TUBE EXT SCH ×2 (09:17→20:30)
[2023-08-06] MEDS: LACTULOSE SYRUP 20 GM/30 ML UDC PO SCH ×3 (09:17→20:02)
[2023-08-06] MEDS: FAMOTIDINE 40 MG TABLET PO SCH (09:17)
[2023-08-06] MEDS: TRIAMCINOLONE ACET 0.1% CR 80 GM TUBE EXT SCH ×3 (09:17→20:30)
[2023-08-06] MEDS: SPIRONOLACTONE 100 MG TAB PO SCH (09:17)
[2023-08-06] MEDS: rOPINIRole HCL 2 MG TABLET PO SCH ×2 (09:17→14:44)
[2023-08-06] MEDS: rifAXIMin 550 MG TABLET PO SCH ×2 (09:17→20:31)
[2023-08-06] MEDS: HEPARIN SOD 5,000 UNIT/0.5 ML VIAL SQ SCH ×2 (09:18→20:02)
[2023-08-06] MEDS: BUMETANIDE 1 MG in SYRINGE 0 ML IV SCH (09:18)
[2023-08-06] MEDS: DOCUSATE SODIUM 100 MG CAP PO SCH ×2 (09:18→20:02)
[2023-08-06] MEDS: CALCIUM CARBONATE 500 MG CHEWABLE TAB PO SCH ×3 (09:18→16:52)
[2023-08-06] MEDS: PROCHLORPERAZINE 5 MG in SYRINGE 4 ML IV SCH ×3 (09:18→16:14)
[2023-08-06] MEDS: POTASSIUM CHLORIDE CRTAB 20 MEQ TABCR PO SCH ×3 (09:23→20:31)
[2023-08-06] MEDS: ALBUMIN 25% 25 GM/100 ML VIAL IV SCH ×2 (09:26→16:52)
[2023-08-06] MEDS: oxyCODONE HCL IR 5 MG TAB (IMMEDIATE RELEASE) PO PRN (14:44)
[2023-08-06] MEDS: CYCLOBENZAPRINE HCL 5 MG TAB PO PRN (16:12)
[2023-08-06] MEDS: VENLAFAXINE HCL XR 150 MG CAPXR PO SCH (16:12)
[2023-08-06] MEDS: cefTRIAXone SODIUM 2,000 MG in DEXTROSE 5 % MINI-B 50 ML IV SCH (16:13)
--- NOTE | 2023-08-06 16:47 | Hospitalist Progress Note ---
Date of Service August 06, 2023 Assessment & Plan (1) COVID-19: Plan: patient with systemic infectious symptoms - cold chills, fatigue, poor appetite, nausea, diarrhea, myalgias. these symptoms had persisted despite Rx of her abdominal wall cellulitis (which is now resolved) and ?cellulitis of her legs. elected to perform COVID/flu/RSV swab 08/03/23 - returned POSITIVE for COVID. Although she had a + COVID test in early April her COVID PCR in June was negative. c/w recurrent COVID Cont airborne isolation. no indication for steroids at this time. Remdesivir contraindicated due to cirrhosis. supportive care. reviewed BMP 08/06 and these are stable and unchanged continues to be highly symptomatic of diarrhea and constitutional symptoms (both improving 08/06), no hypoxia or dyspnea (2) Rash: Plan: b/l thighs, b/l shins. CT L thigh without abscess/phlegmon/air in tissue to suggest nec fasc/etc b/l LE dopplers neg for DVT esr/crp reviewed and they are low despite rocephin/daptomycin (has been on such for abdominal wall cellulitis) her rash and the erythema of both legs hasn't changed - maybe only slightly improved. continue triamcinolone topical continue diuresis - the inflamed areas are all in dependent/edematous areas and possibly all inflamed edema setting of thrombocytopenia - though not distinctly petechial (3) Abdominal wall cellulitis: Plan: resolved remains on rocephin 2gm daily + daptomycin 400mg daily -- mainly to cover #4 there has been no evidence of panniculitis on physical exam or a definable abscess of the abd wall at any time (4) Cellulitis of leg: Plan: R daily at this time cont rocephin/dapto to be on safe side appears unchanged to slightly improved 08/06, will continue same antibiotics (5) Depression: Plan: discussed with psychiatric nurse - effexor had inadvertently not been ordered. Reviewed psychiatrist consult recs 08/03 continue increasing dose per recs 150 mg today and tomorrow, then increase to 225 mg if tolerating (6) Diarrhea: Plan: c diff negative partially due to lactulose - being held could be due to COVID-19 infection could be abx-associated diarrhea improved with stopping magnesium oxide titrate lactulose for 3 BMs/day (7) Acute hypotension: Plan: present on admission resolved cont midodrine 5mg TID has developed JOANNA as outpatient when not on midodrine (8) JOANNA (acute kidney injury): Plan: peak Cr 1.58 at admission remains <1 resolved likely had been pre-renal from volume shifts from paracentesis, copious diuretics, hypotension, etc (9) Diabetes mellitus, type 2: Plan: last a1c 5% in June uncertain accuracy of her a1c due to chronic anemia but either way her glucose levels have been acceptable in back to back hospital stays (10) Morbid obesity with BMI of 40.0-44.9, adult: Plan: patient's BMI has gone down with loss of volume from cirrhosis BMI now 35 (11) Refractory ascites: Plan: at this point is on twice weekly schedule for paracentesis pleurX contraindicated/not advised due to infection risk and will ultimately be seeking out liver transplant appreciate IR assistance ascitic culture from para 07/31 with CONS growing late. potentially this is a contaminant however, CONS could cause a nosocomial SBP. cell count 07/31 reviewed not suggestive of SBP. Regardless has had seven days treatment with daptomycin. last para 08/05 for 4.7 L, followed by albumin fluid studies not suggestive of SBP culture negative to date cont bumex IV, increased to 1.5 mg bid give with 25g albumin. serum albumin has not always been low but has had recurrent JOANNA. cont aldactone 100mg daily (12) Anemia: Plan: multi-factorial has had significant Fe Def in the recent past s/p IV venofer daily CBC while here H/H again acceptable 08/05 no evidence of any GI bleeding stool heme neg (13) Portal vein thrombosis: Plan: previously on lovenox but this has been stopped due to frequent paracentesis, low platelets, etc (14) Cirrhosis: Plan: 2nd GILLESPIE frequent admissions for complications from such - HE, volume overload, JOANNA, etc follows with Dr Hilda Calvert, [facility] GI has follow-ups with liver transplant in August both at [facility] and 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 (19) Chronic post-traumatic headache: Plan: treat symptoms (20) Hypothyroidism: Plan: last TSH 11.3 in late June which had been improving remains on levothyroxine 300mcg daily repeat a TSH in 2-3 weeks as outpatient Plan updated pt's by phone evening of 08/03 told him about +COVID test cont airborne isolation Admission and Anticipated Discharge Date Admission Date: July 29, 2023 Subjective leg swelling slightly improved, pain of skin interior thighs improved a little, no significant increase in UOP noted, has less diarrhea took 1 dose lactulose Physical Exam 2 Physical Exam: PHYSICAL EXAMINATION Last 24h vital signs reviewed, see documentation in flowsheet General: comfortable appearing, no distress, sitting on bed HEENT: Normocephalic, atraumatic, pupils round and equal, sclerae anicteric, no conjunctival injection, moist mucus membranes Lungs: Normal respiratory effort. Clear to auscultation bilaterally. No RRW Heart: Regular rate and rhythm, hyperdynamic,no murmurs. No JVD Abdomen: Soft, nontender, distended with large ascites, abdominal wall edema present central pannus improved?. Bowel sounds present. Extremities: Warm, dry, well-perfused. 3+ extremity edema slightly improved. feet legs thighs and pannus skin: Warm dry there is some chronic bilateral lower extremity erythema at the shins but on the right it appears much more red and is warm slightly improved, there is erythema present both inner thighs with warmth also upper posterior calves appearance of dilated capillaries not discrete petechia - this is in dependent/edematous areas, abdominal wall cellulitis appears to have resolved there is mild erythema of the edematous part of the pannus which appears a little bit inflamed in the central area Neuro: Alert and oriented x 4, face symmetric, no tremor right now Psych: Normal affect and behavior Results & Data Results & Data Vital Signs (Past 12 Hours) Vital Signs Temp Pulse Pulse Resp BP Pulse Ox O2 Del Method 08/06/23 15:58 83 08/06/23 09:55 82 08/06/23 07:00 36.8 C 88 19 108/63 97 Room Air Laboratory Results 08/05/23 06:37 08/06/23 06:27 PG Care Time/CCT Total # of Minutes Spent Total Time Spent with Patient: Total time spent is greater than 50% in coordination of care (as documented) at patient's floor/unit and/or counseling patient: Coding Level of Care Code 75415 SUB INP/OBS CARE 3/50MIN Diagnoses COVID-19 U07.1 Rash R21 Abdominal wall cellulitis L03.311 Cellulitis of leg L03.119 Depression F32.9 Diarrhea R19.7 Acute hypotension I95.9 JOANNA (acute kidney injury) N17.9 Diabetes mellitus, type 2 E11.9 Morbid obesity with BMI of 40.0-44.9, adult E66.01; Z68.41 Refractory ascites R18.8 Anemia D64.9 Portal vein thrombosis I81 Cirrhosis K74.60 Hyponatremia E87.1 Pancytopenia D61.818 TBI (traumatic brain injury) S06.9X9A History of CVA (cerebrovascular accident) Z86.73 Chronic post-traumatic headache G44.329 Hypothyroidism E03.9
[2023-08-06] MEDS: DAPTOmycin 400 MG in SYRINGE 0 ML IV SCH (16:51)
[2023-08-06] MEDS ORDERED: BUMETANIDE 1.5 MG in SYRINGE 0 ML IV SCH (17:00)
[2023-08-06] MEDS: MICONAZOLE NITRATE 2% VAG CR 45 GM TUBE PV SCH (20:30)
[2023-08-07] MEDS: rOPINIRole HCL 2 MG TABLET PO SCH ×4 (00:28→23:40)
[2023-08-07] MEDS: ALPRAZolam 0.5 MG TABLET PO PRN ×2 (00:29→23:39)
[2023-08-07] MEDS: oxyCODONE HCL IR 5 MG TAB (IMMEDIATE RELEASE) PO PRN ×4 (00:29→23:39)
[2023-08-07] MEDS: LEVOTHYROXINE SODIUM 150 MCG TABLET PO SCH (06:10)
[2023-08-07 07:33] LABS: Albumin Level 4.1 gm/dl (3.4-5.0); BUN Creatinine Ratio 17.1 (10-20); Bilirubin Direct 0.5 mg/dl (0-0.2); Bilirubin,Total 1.4 mg/dl (0.2-1.0); Calcium 9.1 mg/dl (8.6-10.3); Creatinine Clr Calc Pharmacy 124.5 ml/min; Est GFR (African American) 123.9 ml/min; Est GFR (Non-African American) 106.9 ml/min; Magnesium 1.9 mg/dl (1.7-2.4); Potassium 3.7 mmol/L (3.5-5.1)
[2023-08-07 07:38] LABS: INR 1.5 (0.9-1.1); Prothrombin Time 16.3 Seconds (9.0-12.0)
--- NOTE | 2023-08-07 07:50 | Hospitalist Progress Note ---
Date of Service August 07, 2023 Assessment & Plan (1) COVID-19: Plan: patient with systemic infectious symptoms - cold chills, fatigue, poor appetite, nausea, diarrhea, myalgias. these symptoms had persisted despite Rx of her abdominal wall cellulitis (which is now resolved) and ?cellulitis of her legs. elected to perform COVID/flu/RSV swab 08/03/23 - returned POSITIVE for COVID. Although she had a + COVID test in early April her COVID PCR in June was negative. c/w recurrent COVID Cont airborne isolation. no indication for steroids at this time. Remdesivir contraindicated due to cirrhosis. supportive care. reviewed CMP 08/07 and these are stable to improved Diarrhea and chills are improving, no hypoxia or dyspnea (2) Rash: Plan: b/l thighs, b/l shins. CT L thigh without abscess/phlegmon/air in tissue to suggest nec fasc/etc b/l LE dopplers neg for DVT esr/crp reviewed and they are low despite rocephin/daptomycin (has been on such for abdominal wall cellulitis) her rash and the erythema of both legs hasn't changed -completing 7-day course of these tonight and then will discontinue. continue triamcinolone topical continue diuresis - the inflamed areas are all in dependent/edematous areas and possibly all inflamed edema setting of thrombocytopenia - though not distinctly petechial. Erythema and pain are significantly improved after effective diuresis, will continue with Bumex 2 mg IV twice daily along with albumin continue to assess response with lower extremities (3) Abdominal wall cellulitis: Plan: resolved Completed treatment with ceftriaxone and daptomycin (4) Cellulitis of leg: Plan: R daily -improved. Completed treatment with Rocephin and daptomycin, doubt any ongoing infectious process (5) Depression: Plan: discussed with psychiatric nurse - effexor had inadvertently not been ordered. Reviewed psychiatrist consult recs 08/03 continue increasing dose per recs 150 mg today, then increase to 225 mg tomorrow if tolerating -Mood seems improved -CMP with improved bili, stable INR (6) Diarrhea: Plan: c diff negative partially due to lactulose - being held when necessary could be due to COVID-19 infection could be abx-associated diarrhea improved with stopping magnesium oxide titrate lactulose for 3 BMs/day (7) Acute hypotension: Plan: present on admission resolved cont midodrine 5mg TID has developed JOANNA as outpatient when not on midodrine (8) JOANNA (acute kidney injury): Plan: peak Cr 1.58 at admission now stable at 0.7 remains <1 resolved likely had been pre-renal from volume shifts from paracentesis, copious diuretics, hypotension, etc (9) Diabetes mellitus, type 2: Plan: last a1c 5% in June uncertain accuracy of her a1c due to chronic anemia but either way her glucose levels have been acceptable in back to back hospital stays -BG rev 08/07 at goal (10) Morbid obesity with BMI of 40.0-44.9, adult: Plan: patient's BMI has gone down with loss of volume from cirrhosis BMI now 35 (11) Refractory ascites: Plan: at this point is on twice weekly schedule for paracentesis pleurX contraindicated/not advised due to infection risk and will ultimately be seeking out liver transplant appreciate IR assistance ascitic culture from para 07/31 with CONS growing late. potentially this is a contaminant however, CONS could cause a nosocomial SBP. cell count 07/31 reviewed not suggestive of SBP. Regardless received seven days treatment with daptomycin. last para 08/05 for 4.7 L, followed by albumin fluid studies not suggestive of SBP culture negative to date cont bumex IV, increased to 2 mg bid give with 25g albumin. serum albumin has not always been low but has had recurrent JOANNA. cont aldactone 100mg daily - K okay Paracentesis ordered for 08/08 with cell count and ascitic culture, per her routine for large refractory ascites. Discussed with patient (12) Anemia: Plan: multi-factorial has had significant Fe Def in the recent past s/p IV venofer daily CBC while here H/H again acceptable 08/05 no evidence of any GI bleeding stool heme neg (13) Portal vein thrombosis: Plan: previously on lovenox but this has been stopped due to frequent paracentesis, low platelets, etc (14) Cirrhosis: Plan: 2nd [place] frequent admissions for complications from such - HE, volume overload, JOANNA, etc follows with Dr Hilda Calvert [facility] GI has follow-ups with liver transplant in August both at [facility] and [facility] (15) Hyponatremia: Plan: 2nd to diuretics, cirrhosis, etc Na nl 137 today (on albumin and diuretics) daily BMP (16) Pancytopenia: Plan: 2nd cirrhosis stable cell lines on CBC (17) TBI (traumatic brain injury): Plan: history of such (18) History of CVA (cerebrovascular accident): Plan: 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 (19) Chronic post-traumatic headache: Plan: treat symptoms (20) Hypothyroidism: Plan: last TSH 11.3 in late June which had been improving remains on levothyroxine 300mcg daily repeat a TSH in 2-3 weeks as outpatient Plan updated pt's by phone evening of 08/03 told him about +COVID test cont airborne isolation Admission and Anticipated Discharge Date Admission Date: July 29, 2023 Physical Exam 2 Physical Exam: PHYSICAL EXAMINATION Last 24h vital signs reviewed, see documentation in flowsheet General: comfortable appearing, no distress, sitting on bed HEENT: Normocephalic, atraumatic, pupils round and equal, sclerae anicteric, no conjunctival injection, moist mucus membranes Lungs: Normal respiratory effort. Clear to auscultation bilaterally. No RRW Heart: Regular rate and rhythm, hyperdynamic,no murmurs. No JVD Abdomen: Soft, nontender, distended with large ascites, abdominal wall edema present central pannus improved?. Bowel sounds present. Extremities: Warm, dry, well-perfused. 3+ extremity edema slightly improved. feet legs thighs and pannus skin: Warm dry there is some chronic bilateral lower extremity erythema at the shins but on the right it appears much more red and is warm slightly improved, there is erythema present both inner thighs with warmth also upper posterior calves appearance of dilated capillaries not discrete petechia - this is in dependent/edematous areas, abdominal wall cellulitis appears to have resolved there is mild erythema of the edematous part of the pannus which appears a little bit inflamed in the central area Neuro: Alert and oriented x 4, face symmetric, no tremor right now Psych: Normal affect and behavior Results & Data Results & Data Vital Signs (Past 12 Hours) Vital Signs Temp Pulse Pulse Resp BP Pulse Ox O2 Del Method 08/07/23 07:28 77 08/07/23 02:52 36.6 C 85 18 112/72 97 Room Air 08/06/23 23:23 36.8 C 86 18 117/72 98 Room Air 08/06/23 22:52 77 08/06/23 19:57 36.9 C 88 18 119/75 100 Room Air Laboratory Results 08/05/23 06:37 08/07/23 06:29 PG Care Time/CCT Total # of Minutes Spent Total Time Spent with Patient: Total time spent is greater than 50% in coordination of care (as documented) at patient's floor/unit and/or counseling patient: Coding Level of Care Code 64509 SUB INP/OBS CARE 3/50MIN Diagnoses COVID-19 U07.1 Rash R21 Abdominal wall cellulitis L03.311 Cellulitis of leg L03.119 Depression F32.9 Diarrhea R19.7 Acute hypotension I95.9 JOANNA (acute kidney injury) N17.9 Diabetes mellitus, type 2 E11.9 Morbid obesity with BMI of 40.0-44.9, adult E66.01; Z68.41 Refractory ascites R18.8 Anemia D64.9 Portal vein thrombosis I81 Cirrhosis K74.60 Hyponatremia E87.1 Pancytopenia D61.818 TBI (traumatic brain injury) S06.9X9A History of CVA (cerebrovascular accident) Z86.73 Chronic post-traumatic headache G44.329 Hypothyroidism E03.9
[2023-08-07] MEDS: hydrOXYzine HCl 10 MG TAB PO PRN ×2 (09:19→17:59)
[2023-08-07] MEDS: POTASSIUM CHLORIDE CRTAB 20 MEQ TABCR PO SCH ×3 (09:20→20:34)
[2023-08-07] MEDS: MIDODRINE HCL 2.5 MG TAB PO SCH ×3 (09:20→17:22)
[2023-08-07] MEDS: MICONAZOLE NITRATE 2% CR 30 GM TUBE EXT SCH ×3 (09:20→23:40)
[2023-08-07] MEDS: SPIRONOLACTONE 100 MG TAB PO SCH (09:22)
[2023-08-07] MEDS: BUMETANIDE 2 MG in SYRINGE 0 ML IV SCH ×2 (09:22→17:21)
[2023-08-07] MEDS: rifAXIMin 550 MG TABLET PO SCH ×2 (09:22→20:36)
[2023-08-07] MEDS: PANTOprazole 40 MG TAB PO SCH ×2 (09:22→20:37)
[2023-08-07] MEDS: LACTULOSE SYRUP 20 GM/30 ML UDC PO SCH ×3 (09:22→20:38)
[2023-08-07] MEDS: FAMOTIDINE 40 MG TABLET PO SCH (09:22)
[2023-08-07] MEDS: VENLAFAXINE HCL XR 150 MG CAPXR PO SCH (09:22)
[2023-08-07] MEDS: TRIAMCINOLONE ACET 0.1% CR 80 GM TUBE EXT SCH ×4 (09:23→23:40)
[2023-08-07] MEDS: HEPARIN SOD 5,000 UNIT/0.5 ML VIAL SQ SCH ×2 (09:23→20:36)
[2023-08-07] MEDS: CALCIUM CARBONATE 500 MG CHEWABLE TAB PO SCH ×3 (09:23→17:22)
[2023-08-07] MEDS: ALBUMIN 25% 25 GM/100 ML VIAL IV SCH ×2 (09:30→17:21)
[2023-08-07] MEDS: PROCHLORPERAZINE 5 MG in SYRINGE 4 ML IV SCH ×3 (09:31→17:21)
[2023-08-07] MEDS: DOCUSATE SODIUM 100 MG CAP PO SCH ×2 (09:44→20:18)
[2023-08-07] MEDS ORDERED: IRON SUCROSE 200 MG in 0.9 % SODIUM CHLORIDE 100 ML IV ONE (20:00)
[2023-08-07] MEDS: MICONAZOLE NITRATE 2% VAG CR 45 GM TUBE PV SCH (20:39)
[2023-08-07] MEDS: CYCLOBENZAPRINE HCL 5 MG TAB PO PRN (23:39)
[2023-08-08] MEDS: LEVOTHYROXINE SODIUM 150 MCG TABLET PO SCH (06:10)
[2023-08-08 07:52] LABS: BUN Creatinine Ratio 16.9 (10-20); Calcium 8.8 mg/dl (8.6-10.3); Creatinine Clr Calc Pharmacy 113.9 ml/min; Est GFR (African American) 110.4 ml/min; Est GFR (Non-African American) 95.2 ml/min; Magnesium 1.8 mg/dl (1.7-2.4); Potassium 3.8 mmol/L (3.5-5.1)
[2023-08-08] MEDS: LACTULOSE SYRUP 20 GM/30 ML UDC PO SCH ×4 (08:38→21:43)
[2023-08-08] MEDS: PROCHLORPERAZINE 5 MG in SYRINGE 4 ML IV SCH ×2 (08:39→11:18)
[2023-08-08] MEDS: MIDODRINE HCL 2.5 MG TAB PO SCH ×3 (08:40→16:13)
[2023-08-08] MEDS ORDERED: SODIUM CHLORIDE 0.65% NA SOLN 45 ML (OCEAN) ONE (08:44)
[2023-08-08] MEDS: rOPINIRole HCL 2 MG TABLET PO SCH ×3 (10:03→23:30)
[2023-08-08] MEDS: CALCIUM CARBONATE 500 MG CHEWABLE TAB PO SCH ×3 (10:03→16:12)
[2023-08-08] MEDS: DOCUSATE SODIUM 100 MG CAP PO SCH ×2 (10:03→23:31)
[2023-08-08] MEDS: POTASSIUM CHLORIDE CRTAB 20 MEQ TABCR PO SCH ×3 (10:03→21:45)
[2023-08-08] MEDS: rifAXIMin 550 MG TABLET PO SCH ×2 (10:04→21:46)
[2023-08-08] MEDS: PANTOprazole 40 MG TAB PO SCH ×2 (10:04→21:44)
[2023-08-08] MEDS: TRIAMCINOLONE ACET 0.1% CR 80 GM TUBE EXT SCH ×3 (10:05→23:32)
[2023-08-08] MEDS: SPIRONOLACTONE 100 MG TAB PO SCH (10:06)
[2023-08-08] MEDS: FAMOTIDINE 40 MG TABLET PO SCH (10:07)
[2023-08-08] MEDS: BUMETANIDE 2 MG in SYRINGE 0 ML IV SCH (10:07)
[2023-08-08] MEDS: ALBUMIN 25% 25 GM/100 ML VIAL IV SCH ×2 (10:07→17:48)
[2023-08-08] MEDS: VENLAFAXINE HCL XR 75 MG CAPXR PO SCH (10:08)
[2023-08-08] MEDS: MICONAZOLE NITRATE 2% CR 30 GM TUBE EXT SCH ×2 (10:09→21:46)
[2023-08-08] MEDS: HEPARIN SOD 5,000 UNIT/0.5 ML VIAL SQ SCH ×2 (10:09→21:47)
[2023-08-08] MEDS: oxyCODONE HCL IR 5 MG TAB (IMMEDIATE RELEASE) PO PRN ×3 (10:22→23:31)
[2023-08-08 12:55] LABS: Appearance Peritoneal Fluid Cloudy; Color Peritoneal Fluid Amber; Lymphocytes, Fluid 17 %; Mono,Macrophage,Mesothelial 81 %; Neutrophils, Fluid 2 %; RBC Peritoneal Fluid Auto 23000 /uL; WBC Peritoneal Fluid Auto 491 /ul (0-300)
[2023-08-08] MEDS ORDERED: LIDOCAINE 5% 1 PATCH TD STA (13:05)
--- NOTE | 2023-08-08 13:56 | Ultrasound Report ---
ULTRASOUND-GUIDED PARACENTESIS CLINICAL HISTORY: Ascites PROCEDURE: Procedure and risks were explained. Informed consent was obtained. A final timeout was com pleted. The abdomen was prepped and draped in sterile fashion. 1% buffered lidocaine was utilized for skin anesthesia. Utilizing ultrasound guidance, a 5 [place] safety centesis catheter was advanced into the left upper q uadrant pocket of ascites. Ultrasound images were obtained. A total of 2.1 L of ascites fluid was rem kurtis, with 1 L sent to lab for analysis. The catheter was removed and (1) 3-0 nylon suture was utiliz ed to close the puncture site. The patient tolerated the procedure well. Vital signs will be monitore d prior to discharge. IMPRESSION: Ultrasound-guided paracentesis as above. Performed, dictated, and signed by Marvin Greene PA-C; to be co-signed by Dr. Davide Vines. Electronically signed by: Davide Vines M.D. 08/08/2023 1:59 PM
[2023-08-08] MEDS: PROCHLORPERAZINE MALEATE 10 MG TAB PO SCH (16:11)
[2023-08-08] MEDS: BUMETANIDE 3 MG in SYRINGE 0 ML IV SCH (17:52)
--- NOTE | 2023-08-08 18:38 | Hospitalist Progress Note ---
Date of Service August 08, 2023 Assessment & Plan (1) COVID-19: Plan: patient with systemic infectious symptoms - cold chills, fatigue, poor appetite, nausea, diarrhea, myalgias. All improving COVID/flu/RSV swab 08/03/23 - returned POSITIVE for COVID. Although she had a + COVID test in early April her COVID PCR in June was negative. c/w recurrent COVID Cont airborne isolation. no indication for steroids at this time. Remdesivir contraindicated due to cirrhosis. supportive care. reviewed CMP 08/07 and these are stable to improved. BMP stable today Diarrhea and chills are much improving, no hypoxia or dyspnea (2) Rash: Plan: b/l thighs, b/l shins. CT L thigh without abscess/phlegmon/air in tissue to suggest nec fasc/etc b/l LE dopplers neg for DVT esr/crp reviewed and they are low did not improve on 7d course rocephin/daptomycin continue triamcinolone topical continue diuresis - the inflamed areas are all in dependent/edematous areas and possibly all inflamed edema setting of thrombocytopenia - though not distinctly petechial. Erythema and pain are significantly improved after effective diuresis, will continue with Bumex but increase to 3 mg IV twice daily along with albumin continue to assess response with lower extremities -definitely improving (3) Abdominal wall cellulitis: Plan: resolved Completed treatment with ceftriaxone and daptomycin x 7 days (4) Cellulitis of leg: Plan: R daily -improved. Completed treatment with Rocephin and daptomycin, doubt any ongoing infectious process (5) Depression: Plan: titrated up to current dose of effexor 225 mg daily per psychiatrist recs -Mood clearly improved -CMP with improved bili, stable INR -CMP INR in 1-2 days (6) Diarrhea: Plan: Combination of COVID-19 and scheduled magnesium oxide (which she does NOT take regularly bid at home, but gets scheduled in the hospital) c diff negative titrate lactulose for 3 BMs/day (7) Acute hypotension: Plan: present on admission resolved cont midodrine 5mg TID has developed JOANNA as outpatient when not on midodrine (8) JOANNA (acute kidney injury): Plan: peak Cr 1.58 at admission now stable at 0.7 remains <1 resolved likely had been pre-renal from volume shifts from paracentesis, copious diuretics, hypotension, etc would not stop midodrine - this seems to allow her to tolerate diuretics without JOANNA (9) Diabetes mellitus, type 2: Plan: last a1c 5% in June uncertain accuracy of her a1c due to chronic anemia but either way her glucose levels have been acceptable in back to back hospital stays -BG rev 08/08 at goal (10) Morbid obesity with BMI of 40.0-44.9, adult: Plan: patient's BMI has gone down with loss of volume from cirrhosis BMI now 35 (11) Refractory ascites: Plan: at this point is on twice weekly schedule for paracentesis pleurX contraindicated/not advised due to infection risk and will ultimately be seeking out liver transplant appreciate IR assistance ascitic culture from para 07/31 with CONS growing late. potentially this is a contaminant however, CONS could cause a nosocomial SBP. cell count 07/31 reviewed not suggestive of SBP. Regardless received seven days treatment with daptomycin. para 08/05 for 4.7 L, followed by albumin fluid studies not suggestive of SBP culture negative to date para today 08/08 <3L removed reflects diuretics WBC mildly elevated but PMN not elevated - only 2% follow culture cont bumex IV, increased to 3 mg bid give with 25g albumin. serum albumin has not always been low but has had recurrent JOANNA. cont aldactone 100mg daily - K char (12) Anemia: Plan: multi-factorial history of iron deficiency, requires venofer, intolerant of oral iron phlebotomy during frequent hospitalizations playing a role H/H again acceptable 08/05, recheck in 1-2 days Anemic and iron stores mildly low this admission - gave venofer 200 mg IV on 08/07 no evidence of any GI bleeding stool heme neg (13) Portal vein thrombosis: Plan: previously on lovenox but this has been stopped due to frequent paracentesis, low platelets, etc (14) Cirrhosis: Plan: 2nd [place] frequent admissions for complications from such - HE, volume overload, JOANNA, etc follows with Dr Hilda Calvert, [facility] GI has follow-ups with liver transplant in August both at [facility] and [facility] (15) Hyponatremia: Plan: 2nd to diuretics, cirrhosis, etc Na nl 136 today (on albumin and diuretics) daily BMP (16) Pancytopenia: Plan: 2nd cirrhosis stable cell lines on CBC (17) TBI (traumatic brain injury): Plan: history of such (18) History of CVA (cerebrovascular accident): Plan: 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 (19) Chronic post-traumatic headache: Plan: treat symptoms (20) Hypothyroidism: Plan: last TSH 11.3 in late June which had been improving remains on levothyroxine 300mcg daily repeat a TSH in 2-3 weeks as outpatient Plan updated pt's by phone last on 08/03 told him about +COVID test cont airborne isolation Admission and Anticipated Discharge Date Admission Date: July 29, 2023 Subjective Feeling better. Skin on legs enma L upper thigh still sensitive to touch but no longer spontaneously painful. Redness definitely improved of legs, buttocks and pannus redness resolved. Had para today <3L present for removal. Diarrhea seems to be resolving. no abdominal pain. mood significantly improved on effexor Physical Exam 2 Physical Exam: PHYSICAL EXAMINATION Last 24h vital signs reviewed, see documentation in flowsheet General: comfortable appearing, no distress, sitting in chair walked to bed with steady gait HEENT: Normocephalic, atraumatic, pupils round and equal, sclerae anicteric, no conjunctival injection, moist mucus membranes Lungs: Normal respiratory effort. Heart: def Abdomen: Soft, nontender, distended/round, abdominal wall edema present central pannus edema much improved no abdominal erythema. Extremities: Warm, dry, well-perfused. 3+ extremity edema improved. feet legs thighs and abdominal wall. UE edema resolved skin: Warm dry there is some chronic bilateral lower extremity erythema at the shins but much improved, there is erythema present both inner thighs also upper posterior calves but significant clearing. tiny petechial / capillary pattern rash unchanged but no spreading Neuro: Alert and oriented x 4, face symmetric, no tremor right now Psych: Normal affect and behavior Results & Data Results & Data Vital Signs (Past 12 Hours) Vital Signs Temp Pulse Pulse Resp BP BP Pulse Ox 08/08/23 16:31 88 08/08/23 15:38 36.8 C 83 18 109/67 96 08/08/23 15:37 36.8 C 83 16 08/08/23 11:14 36.6 C 89 16 116/75 96 08/08/23 10:12 85 16 109/65 96 08/08/23 08:12 08/08/23 08:10 36.9 C 85 20 111/71 96 08/08/23 08:00 90 O2 Del Method 08/08/23 16:31 08/08/23 15:38 Room Air 08/08/23 15:37 08/08/23 11:14 Room Air 08/08/23 10:12 Room Air 08/08/23 08:12 Room Air 08/08/23 08:10 Room Air 08/08/23 08:00 Laboratory Results 08/05/23 06:37 08/08/23 06:50 PG Care Time/CCT Total # of Minutes Spent Total Time Spent with Patient: Total time spent is greater than 50% in coordination of care (as documented) at patient's floor/unit and/or counseling patient: Coding Level of Care Code 60234 SUB INP/OBS CARE 2/35MIN Diagnoses COVID-19 U07.1 Rash R21 Abdominal wall cellulitis L03.311 Cellulitis of leg L03.119 Depression F32.9 Diarrhea R19.7 Acute hypotension I95.9 JOANNA (acute kidney injury) N17.9 Diabetes mellitus, type 2 E11.9 Morbid obesity with BMI of 40.0-44.9, adult E66.01; Z68.41 Refractory ascites R18.8 Anemia D64.9 Portal vein thrombosis I81 Cirrhosis K74.60 Hyponatremia E87.1 Pancytopenia D61.818 TBI (traumatic brain injury) S06.9X9A History of CVA (cerebrovascular accident) Z86.73 Chronic post-traumatic headache G44.329 Hypothyroidism E03.9
[2023-08-08] MEDS: MICONAZOLE NITRATE POWDER 85 GM EXT SCH (21:46)
[2023-08-08] MEDS: ALPRAZolam 0.5 MG TABLET PO PRN (23:31)
[2023-08-09] MEDS: LEVOTHYROXINE SODIUM 150 MCG TABLET PO SCH (06:08)
[2023-08-09 06:25] LABS: BUN Creatinine Ratio 17.3 (10-20); Creatinine Clr Calc Pharmacy 108.5 ml/min; Est GFR (African American) 103.8 ml/min; Est GFR (Non-African American) 89.6 ml/min; Magnesium 1.9 mg/dl (1.7-2.4); Potassium 4.2 mmol/L (3.5-5.1)
[2023-08-09] MEDS: MIDODRINE HCL 2.5 MG TAB PO SCH ×3 (09:40→16:15)
[2023-08-09] MEDS: VENLAFAXINE HCL XR 75 MG CAPXR PO SCH (09:41)
[2023-08-09] MEDS: rOPINIRole HCL 2 MG TABLET PO SCH ×3 (09:41→23:15)
[2023-08-09] MEDS: PANTOprazole 40 MG TAB PO SCH ×2 (09:43→20:19)
[2023-08-09] MEDS: rifAXIMin 550 MG TABLET PO SCH ×2 (09:43→20:20)
[2023-08-09] MEDS: FAMOTIDINE 40 MG TABLET PO SCH (09:43)
[2023-08-09] MEDS: PROCHLORPERAZINE MALEATE 10 MG TAB PO SCH ×3 (09:44→16:50)
[2023-08-09] MEDS: CALCIUM CARBONATE 500 MG CHEWABLE TAB PO SCH ×3 (09:44→16:16)
[2023-08-09] MEDS: POTASSIUM CHLORIDE CRTAB 20 MEQ TABCR PO SCH ×3 (09:49→20:21)
[2023-08-09] MEDS: HEPARIN SOD 5,000 UNIT/0.5 ML VIAL SQ SCH ×2 (09:51→20:18)
[2023-08-09] MEDS: LACTULOSE SYRUP 20 GM/30 ML UDC PO SCH ×3 (09:51→20:18)
[2023-08-09] MEDS: DOCUSATE SODIUM 100 MG CAP PO SCH ×2 (09:51→20:18)
[2023-08-09] MEDS: TRIAMCINOLONE ACET 0.1% CR 80 GM TUBE EXT SCH ×2 (09:52→13:17)
[2023-08-09] MEDS: MICONAZOLE NITRATE 2% CR 30 GM TUBE EXT SCH ×2 (09:52→20:18)
[2023-08-09] MEDS: MICONAZOLE NITRATE POWDER 85 GM EXT SCH ×2 (09:54→20:18)
[2023-08-09] MEDS: BUMETANIDE 3 MG in SYRINGE 0 ML IV SCH ×2 (10:57→16:49)
[2023-08-09] MEDS: SPIRONOLACTONE 100 MG TAB PO SCH (10:57)
[2023-08-09] MEDS: hydrOXYzine HCl 10 MG TAB PO PRN ×2 (11:00→20:20)
[2023-08-09] MEDS: oxyCODONE HCL IR 5 MG TAB (IMMEDIATE RELEASE) PO PRN ×2 (12:17→23:15)
[2023-08-09] MEDS: CYCLOBENZAPRINE HCL 5 MG TAB PO PRN (12:18)
--- NOTE | 2023-08-09 16:34 | Hospitalist Progress Note ---
Date of Service August 09, 2023 Assessment & Plan (1) Anasarca: Plan: Very slowly improving continue bumex 3 mg IV bid with 25g albumin bid and spironolactone 100 mg Weight down 115 --> 101 kg since 07/22 but static last few days, though edema and skin changes clearly improving and less ascites accumulation -may need bumex drip (2) Rash: Plan: b/l thighs, b/l shins. CT L thigh without abscess/phlegmon/air in tissue to suggest nec fasc/etc b/l LE dopplers neg for DVT esr/crp reviewed and they are low did not improve on 7d course rocephin/daptomycin continue triamcinolone topical continue diuresis - the inflamed areas are all in dependent/edematous areas and may be inflamed edema setting of thrombocytopenia. Erythema and pain are significantly improved after effective diuresis, redness has cleared substantially and pain resolving, petechial areas will take weeks to resolve -definitely improving (3) COVID-19: Plan: patient with systemic infectious symptoms - cold chills, fatigue, poor appetite, nausea, diarrhea, myalgias. Seems to be resolving COVID/flu/RSV swab 08/03/23 - returned POSITIVE for COVID. Although she had a + COVID test in early April her COVID PCR in June was negative. c/w recurrent COVID there was no indication for steroids Remdesivir contraindicated due to cirrhosis. (4) Abdominal wall cellulitis: Plan: resolved Completed treatment with ceftriaxone and daptomycin x 7 days (5) Cellulitis of leg: Plan: R daily -improved. Completed treatment with Rocephin and daptomycin, doubt any ongoing infectious process -improving with diuresis -remaining erythema may be mostly venous stasis (6) Depression: Plan: titrated up to current dose of effexor 225 mg daily per psychiatrist recs -Mood clearly improved -CMP with improved bili, stable INR -CMP INR in 1-2 days (7) Diarrhea: Plan: Combination of COVID-19 and scheduled magnesium oxide (which she does NOT take regularly bid at home, but gets scheduled in the hospital). mag 1.9 today. c diff negative titrate lactulose for 3 BMs/day for chronic hepatic encephalopathy - resuming usual schedule 08/09 (8) Acute hypotension: Plan: present on admission resolved cont midodrine 5mg TID has developed JOANNA as outpatient when not on midodrine (9) JOANNA (acute kidney injury): Plan: peak Cr 1.58 at admission now stable at 0.8 remains <1 resolved likely had been pre-renal from volume shifts from paracentesis, copious diuretics, hypotension, etc would not stop midodrine - this seems to allow her to tolerate diuretics without JOANNA (10) Diabetes mellitus, type 2: Plan: last a1c 5% in June uncertain accuracy of her a1c due to chronic anemia but either way her glucose levels have been acceptable in back to back hospital stays -BG rev 08/09 at goal (11) Morbid obesity with BMI of 40.0-44.9, adult: Plan: patient's BMI has gone down with loss of volume from cirrhosis BMI now 35 (12) Refractory ascites: Plan: at this point is on twice weekly schedule for paracentesis pleurX contraindicated/not advised due to infection risk and will ultimately be seeking out liver transplant appreciate IR assistance ascitic culture from para 07/31 with CONS growing late. potentially this is a contaminant however, CONS could cause a nosocomial SBP. cell count 07/31 reviewed not suggestive of SBP. Regardless received seven days treatment with daptomycin. para 08/05 for 4.7 L, followed by albumin fluid studies not suggestive of SBP culture negative to date para 08/08 <3L removed reflects diuretics WBC mildly elevated but PMN not elevated - only 2% follow culture cont bumex/aldactone (13) Anemia: Plan: multi-factorial history of iron deficiency, requires venofer, intolerant of oral iron phlebotomy during frequent hospitalizations playing a role H/H again acceptable 08/05, recheck in 1-2 days Anemic and iron stores mildly low this admission - gave venofer 200 mg IV on 08/07 no evidence of any GI bleeding stool heme neg (14) Portal vein thrombosis: Plan: previously on lovenox but this has been stopped due to frequent paracentesis, low platelets, etc (15) Cirrhosis: Plan: 2nd GILLESPIE frequent admissions for complications from such - HE, volume overload, JOANNA, etc [facility] has follow-ups with liver transplant in August both at [facility] and [facility] (16) Hyponatremia: Plan: 2nd to diuretics, cirrhosis, etc daily BMP, stable today (17) Pancytopenia: Plan: 2nd cirrhosis stable cell lines on CBC (18) TBI (traumatic brain injury): Plan: history of such (19) History of CVA (cerebrovascular accident): Plan: 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 legs and buttocks pain much better. redness of legs much better. swelling a little better skin enma on abdomen feels itchy. Physical Exam 2 Physical Exam: PHYSICAL EXAMINATION Last 24h vital signs reviewed, see documentation in flowsheet General: sitting EOB HEENT: Normocephalic, atraumatic, pupils round and equal, sclerae anicteric, no conjunctival injection, moist mucus membranes Lungs: Normal respiratory effort. Heart: def Abdomen: Soft, nontender, distended/round, abdominal wall edema present but improved, striae now visible, central pannus edema resolved no abdominal erythema. Extremities: Warm, dry, well-perfused. 3+ extremity edema a little improved. feet legs thighs and abdominal wall. UE edema resolved skin: Warm dry there is some chronic bilateral lower extremity erythema at the shins but much improved, there is erythema present both inner thighs also upper posterior calves but significant clearing. tiny petechial / capillary pattern rash unchanged but no spreading. All looks much better compared to 72h ago Neuro: Alert and oriented x 4, face symmetric, baseline UE tremor apparent. Not confused. Psych: Normal affect and behavior Results & Data Results & Data Vital Signs (Past 12 Hours) Vital Signs Temp Pulse Pulse Resp BP BP Pulse Ox 08/09/23 11:51 36.5 C 79 20 102/63 98 08/09/23 10:50 86 107/66 08/09/23 09:54 101/62 98/57 L 08/09/23 08:00 77 08/09/23 07:44 36.9 C 90 18 99/63 L 98 O2 Del Method 08/09/23 11:51 Room Air 08/09/23 10:50 08/09/23 09:54 08/09/23 08:00 08/09/23 07:44 Room Air Laboratory Results 08/05/23 06:37 08/09/23 05:19 PG Care Time/CCT Total # of Minutes Spent Total Time Spent with Patient: Total time spent is greater than 50% in coordination of care (as documented) at patient's floor/unit and/or counseling patient: Coding Level of Care Code 58307 SUB INP/OBS CARE 2/35MIN Diagnoses Anasarca R60.1 Rash R21 COVID-19 U07.1 Abdominal wall cellulitis L03.311 Cellulitis of leg L03.119 Depression F32.9 Diarrhea R19.7 Acute hypotension I95.9 JOANNA (acute kidney injury) N17.9 Diabetes mellitus, type 2 E11.9 Morbid obesity with BMI of 40.0-44.9, adult E66.01; Z68.41 Refractory ascites R18.8 Anemia D64.9 Portal vein thrombosis I81 Cirrhosis K74.60 Hyponatremia E87.1 Pancytopenia D61.818 TBI (traumatic brain injury) S06.9X9A History of CVA (cerebrovascular accident) Z86.73 Chronic post-traumatic headache G44.329 Hypothyroidism E03.9
[2023-08-09] MEDS: ALPRAZolam 0.5 MG TABLET PO PRN (23:15)
[2023-08-10] MEDS: CYCLOBENZAPRINE HCL 5 MG TAB PO PRN ×2 (00:47→09:27)
[2023-08-10] MEDS: TRIAMCINOLONE ACET 0.1% CR 80 GM TUBE EXT SCH ×3 (00:48→14:00)
[2023-08-10] MEDS: LEVOTHYROXINE SODIUM 150 MCG TABLET PO SCH (06:23)
[2023-08-10 08:56] LABS: Albumin Level 3.9 gm/dl (3.4-5.0); Bilirubin Direct 0.6 mg/dl (0-0.2); Bilirubin,Total 1.7 mg/dl (0.2-1.0); Calcium 9.1 mg/dl (8.6-10.3); Creatinine Clr Calc Pharmacy 112.7 ml/min; Est GFR (Non-African American) 92.3 ml/min; Total Protein 5.7 gm/dl (6.0-8.3)
[2023-08-10] MEDS: LACTULOSE SYRUP 20 GM/30 ML UDC PO SCH ×3 (09:20→20:23)
[2023-08-10] MEDS: MIDODRINE HCL 2.5 MG TAB PO SCH ×3 (09:21→16:15)
[2023-08-10] MEDS: PANTOprazole 40 MG TAB PO SCH ×2 (09:23→20:25)
[2023-08-10] MEDS: rOPINIRole HCL 2 MG TABLET PO SCH ×3 (09:23→20:30)
[2023-08-10] MEDS: rifAXIMin 550 MG TABLET PO SCH ×2 (09:24→20:27)
[2023-08-10] MEDS: VENLAFAXINE HCL XR 75 MG CAPXR PO SCH (09:24)
[2023-08-10] MEDS: FAMOTIDINE 40 MG TABLET PO SCH (09:25)
[2023-08-10] MEDS: HEPARIN SOD 5,000 UNIT/0.5 ML VIAL SQ SCH ×2 (09:26→20:23)
[2023-08-10] MEDS: POTASSIUM CHLORIDE CRTAB 20 MEQ TABCR PO SCH ×3 (09:26→20:24)
[2023-08-10] MEDS: DOCUSATE SODIUM 100 MG CAP PO SCH ×2 (09:26→20:23)
[2023-08-10] MEDS: CALCIUM CARBONATE 500 MG CHEWABLE TAB PO SCH ×3 (09:26→16:15)
[2023-08-10] MEDS: PROCHLORPERAZINE MALEATE 10 MG TAB PO SCH ×3 (09:26→16:20)
[2023-08-10] MEDS: MICONAZOLE NITRATE POWDER 85 GM EXT SCH ×2 (09:28→20:23)
[2023-08-10] MEDS: MICONAZOLE NITRATE 2% CR 30 GM TUBE EXT SCH ×2 (09:29→20:23)
[2023-08-10] MEDS: BUMETANIDE 3 MG in SYRINGE 0 ML IV SCH (09:32)
[2023-08-10] MEDS: SPIRONOLACTONE 100 MG TAB PO SCH (09:32)
[2023-08-10 09:44] LABS: INR 1.6 (0.9-1.1); Prothrombin Time 17.2 Seconds (9.0-12.0)
[2023-08-10] MEDS: oxyCODONE HCL IR 5 MG TAB (IMMEDIATE RELEASE) PO PRN (11:25)
--- NOTE | 2023-08-10 11:46 | Hospitalist Progress Note ---
Date of Service August 10, 2023 Assessment & Plan (1) Anasarca: Plan: Very slowly improving -cont 25g albumin bid and spironolactone 100 mg Weight down 115 --> 101 kg since 07/22 but static last few days and increased today though was bed weight -bp has been intermittently soft, will try bumex drip at 0.5 mg/h - this is roughly equivalent dosing to the 3 IV bid -BMP and mag at 6pm and in am C/O foamy urine which is new this admission -check urine prot/Cr ratio. Was normal in june. (2) Rash: Plan: b/l thighs, b/l shins. CT L thigh without abscess/phlegmon/air in tissue to suggest nec fasc/etc b/l LE dopplers neg for DVT esr/crp reviewed and they are low did not improve on 7d course rocephin/daptomycin this finally resolved once effective diuresis started. suspect it was primarily inflamed edema, setting of thrombocytopenia which caused tiny petechial/capillary leak (3) COVID-19: Plan: patient with systemic infectious symptoms - cold chills, fatigue, poor appetite, nausea, diarrhea, myalgias. Resolved COVID/flu/RSV swab 08/03/23 - returned POSITIVE for COVID. Although she had a + COVID test in early April her COVID PCR in June was negative. c/w recurrent COVID there was no indication for steroids, Remdesivir contraindicated due to cirrhosis. symptoms resolved (4) Abdominal wall cellulitis: Plan: resolved Completed treatment with ceftriaxone and daptomycin x 7 days. Remainder of pannus inflammation resolved with diuresis (5) Cellulitis of leg: Plan: R daily -resolved. Completed treatment with Rocephin and daptomycin -improved with diuresis as well -remaining erythema related to venous stasis (6) Depression: Plan: titrated up to current dose of effexor 225 mg daily per psychiatrist recs -Mood clearly improved -CMP with improved bili, stable INR -CMP INR in 1-2 days (7) Diarrhea: Plan: Combination of COVID-19 and scheduled magnesium oxide (which she does NOT take regularly bid at home, but gets scheduled in the hospital). mag 1.9 today. c diff negative titrate lactulose for 3 BMs/day for chronic hepatic encephalopathy - resumed usual schedule 08/09. Ammonia 79 which is baseline for her. (8) Acute hypotension: Plan: present on admission resolved cont midodrine 5mg TID has developed JOANNA as outpatient when not on midodrine (9) JOANNA (acute kidney injury): Plan: peak Cr 1.58 at admission now stable at 0.8 remains <1 resolved likely had been pre-renal from volume shifts from paracentesis, copious diuretics, hypotension, etc would not stop midodrine - this seems to allow her to tolerate diuretics without JOANNA (10) Diabetes mellitus, type 2: Plan: last a1c 5% in June uncertain accuracy of her a1c due to chronic anemia but either way her glucose levels have been acceptable in back to back hospital stays -BG rev 08/10 at goal (11) Morbid obesity with BMI of 40.0-44.9, adult: Plan: patient's BMI has gone down with loss of volume from cirrhosis BMI now 35, likely has 30+ pounds of edema and ascites (12) Refractory ascites: Plan: at this point is on twice weekly schedule for paracentesis pleurX contraindicated/not advised due to infection risk and will ultimately be seeking out liver transplant appreciate IR assistance ascitic culture from para 07/31 with CONS growing late. potentially this is a contaminant however, CONS could cause a nosocomial SBP. cell count 07/31 reviewed not suggestive of SBP. Regardless received seven days treatment with daptomycin. para 08/05 for 4.7 L, followed by albumin fluid studies not suggestive of SBP culture negative to date - rev 08/10 para 08/08 <3L removed reflects diuretics WBC mildly elevated but PMN not elevated - only 2% follow culture - reviewed 08/10 remains negative cont bumex/aldactone (13) Anemia: Plan: multi-factorial history of iron deficiency, requires venofer, intolerant of oral iron phlebotomy during frequent hospitalizations playing a role Anemic and iron stores mildly low this admission - gave venofer 200 mg IV on 08/07 no evidence of any GI bleeding stool heme neg H/H improved to 31 08/10, stable thrombocytopenia and leukopenia (14) Portal vein thrombosis: Plan: previously on lovenox but this has been stopped due to frequent paracentesis, low platelets, etc (15) Cirrhosis: Plan: 2nd GILLESPIE frequent admissions for complications from such - HE, volume overload, JOANNA, etc follows with [facility] has follow-ups with liver transplant in August both at [facility] (09/01) and [facility] - they won't schedule until out of hospital. critical not to miss these intake appointments (16) Hyponatremia: Plan: 2nd to diuretics, cirrhosis, etc daily BMP, stable today 135 (17) Pancytopenia: Plan: 2nd cirrhosis stable cell lines on CBC - rev 08/10 (18) TBI (traumatic brain injury): Plan: history of such (19) History of CVA (cerebrovascular accident): Plan: 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 (20) Chronic post-traumatic headache: Plan: treat symptoms (21) Hypothyroidism: Plan: last TSH 11.3 in late June which had been improving remains on levothyroxine 300mcg daily repeat a TSH in 2-3 weeks as outpatient Plan reviewed 08/10: CBC CMP INR ammonia - all stable. Check CBC CMP INR every few days DVT ppx: not on chemo ppx because of thrombocytopenia <70 and elevated INR, risks>benefits. Ambulates frequently in room. cont airborne isolation Admission and Anticipated Discharge Date Admission Date: July 29, 2023 Subjective hands are cramping a lot today. Having regular BMs on lactulose now - 4 yesterday. Leg erythema and swelling much improved. Still very edematous. Bp's now trending low more often on diuresis. Physical Exam 2 Physical Exam: PHYSICAL EXAMINATION Last 24h vital signs reviewed, see documentation in flowsheet General: sitting in chair. looks much better HEENT: Normocephalic, atraumatic, pupils round and equal, sclerae anicteric, no conjunctival injection, moist mucus membranes Lungs: Normal respiratory effort. CTAB Heart: hyperdynamic, syst M, no JVD Abdomen: Soft, nontender, distended/round, severe abdominal wall edema present but improved, striae now visible, no erythema today, central pannus edema resolved Extremities: Warm, dry, well-perfused. 2-3+ lower extremity edema improved. feet legs thighs and abdominal wall. UE edema resolved skin: Warm dry there is some chronic bilateral lower extremity erythema at the shins MUCH better 08/10, erythema inner thighs also upper posterior calves significant clearing again improved 08/10. tiny petechial / capillary pattern rash unchanged but no spreading and some fading Neuro: Alert and oriented x 4, face symmetric, baseline UE tremor prominent today. Not confused. Psych: Normal affect and behavior Results & Data Results & Data Vital Signs (Past 12 Hours) Vital Signs Temp Pulse Pulse Pulse Resp BP BP 08/10/23 11:27 105/64 08/10/23 09:32 80 109/66 08/10/23 07:45 36.6 C 81 19 95/59 L 08/10/23 04:04 36.7 C 86 19 106/64 08/10/23 00:08 36.6 C 83 20 99/62 L 08/09/23 23:42 81 Pulse Ox O2 Del Method 08/10/23 11:27 08/10/23 09:32 08/10/23 07:45 95 Room Air 08/10/23 04:04 96 Room Air 08/10/23 00:08 96 Room Air 08/09/23 23:42 Laboratory Results 08/05/23 06:37 08/10/23 07:57 PG Care Time/CCT Total # of Minutes Spent Total Time Spent with Patient: Total time spent is greater than 50% in coordination of care (as documented) at patient's floor/unit and/or counseling patient: Coding Level of Care Code 15599 SUB INP/OBS CARE 3/50MIN Diagnoses Anasarca R60.1 Rash R21 COVID-19 U07.1 Abdominal wall cellulitis L03.311 Cellulitis of leg L03.119 Depression F32.9 Diarrhea R19.7 Acute hypotension I95.9 JOANNA (acute kidney injury) N17.9 Diabetes mellitus, type 2 E11.9 Morbid obesity with BMI of 40.0-44.9, adult E66.01; Z68.41 Refractory ascites R18.8 Anemia D64.9 Portal vein thrombosis I81 Cirrhosis K74.60 Hyponatremia E87.1 Pancytopenia D61.818 TBI (traumatic brain injury) S06.9X9A History of CVA (cerebrovascular accident) Z86.73 Chronic post-traumatic headache G44.329 Hypothyroidism E03.9
[2023-08-10] MEDS: BUMETANIDE 10 MG in DEXTROSE 5% 10 ML IV SCH (12:08)
[2023-08-10 16:45] LABS: Total Protein Urine Random < 4.0 mg/dl (0-11.9)
[2023-08-10 19:16] LABS: Calcium 8.8 mg/dl (8.6-10.3); Potassium 3.7 mmol/L (3.5-5.1)
[2023-08-10 19:22] LABS: BUN Creatinine Ratio 15.4 (10-20); Creatinine Clr Calc Pharmacy 97.8 ml/min; Est GFR (African American) 90.2 ml/min; Est GFR (Non-African American) 77.8 ml/min
[2023-08-11] MEDS: CYCLOBENZAPRINE HCL 5 MG TAB PO PRN ×3 (00:01→20:42)
[2023-08-11] MEDS: ALPRAZolam 0.5 MG TABLET PO PRN ×2 (00:01→23:52)
[2023-08-11] MEDS: TRIAMCINOLONE ACET 0.1% CR 80 GM TUBE EXT SCH ×4 (00:03→23:53)
[2023-08-11] MEDS: LEVOTHYROXINE SODIUM 150 MCG TABLET PO SCH (06:06)
[2023-08-11] MEDS: rOPINIRole HCL 2 MG TABLET PO SCH ×3 (07:48→23:52)
[2023-08-11] MEDS: FAMOTIDINE 40 MG TABLET PO SCH (07:49)
[2023-08-11] MEDS: MIDODRINE HCL 2.5 MG TAB PO SCH ×3 (07:49→17:45)
[2023-08-11] MEDS: rifAXIMin 550 MG TABLET PO SCH ×2 (07:49→20:42)
[2023-08-11] MEDS: PANTOprazole 40 MG TAB PO SCH ×2 (07:49→20:41)
[2023-08-11] MEDS: SPIRONOLACTONE 100 MG TAB PO SCH (07:50)
[2023-08-11] MEDS: PROCHLORPERAZINE MALEATE 10 MG TAB PO SCH ×3 (07:50→17:46)
[2023-08-11] MEDS: hydrOXYzine HCl 10 MG TAB PO PRN ×2 (07:50→20:43)
[2023-08-11] MEDS: HEPARIN SOD 5,000 UNIT/0.5 ML VIAL SQ SCH ×2 (07:51→20:40)
[2023-08-11] MEDS: VENLAFAXINE HCL XR 75 MG CAPXR PO SCH (07:51)
[2023-08-11] MEDS: CALCIUM CARBONATE 500 MG CHEWABLE TAB PO SCH ×3 (07:52→17:46)
[2023-08-11] MEDS: MICONAZOLE NITRATE POWDER 85 GM EXT SCH ×2 (07:53→20:40)
[2023-08-11] MEDS: MICONAZOLE NITRATE 2% CR 30 GM TUBE EXT SCH ×2 (07:53→20:40)
[2023-08-11 08:52] LABS: BUN Creatinine Ratio 17.4 (10-20); Calcium 8.7 mg/dl (8.6-10.3); Creatinine Clr Calc Pharmacy 103.2 ml/min; Est GFR (African American) 96.6 ml/min; Est GFR (Non-African American) 83.3 ml/min; Potassium 3.9 mmol/L (3.5-5.1)
[2023-08-11] MEDS: LACTULOSE SYRUP 20 GM/30 ML UDC PO SCH ×3 (09:05→20:40)
[2023-08-11] MEDS: POTASSIUM CHLORIDE CRTAB 20 MEQ TABCR PO SCH ×3 (09:05→20:41)
[2023-08-11] MEDS: DOCUSATE SODIUM 100 MG CAP PO SCH ×2 (09:05→23:53)
[2023-08-11] MEDS: oxyCODONE HCL IR 5 MG TAB (IMMEDIATE RELEASE) PO PRN ×4 (11:17→23:52)
[2023-08-11] MEDS: BUMETANIDE 10 MG in DEXTROSE 5% 10 ML IV SCH (14:10)
--- NOTE | 2023-08-11 16:54 | Hospitalist Progress Note ---
Date of Service August 11, 2023 Assessment & Plan (1) Anasarca: Plan: Very slowly improving -cont 25g albumin bid and spironolactone 100 mg Weight down 115 --> 101 kg since 07/22 last few weights were bed weights and none today -bp has been intermittently soft, much better response with bumex drip at 0.5 mg/h - this is roughly equivalent dosing to the 3 IV bid but had much better UOP. Drip held overnight since Cr up a little. -BMP and mag reviewed today - K/mag normal Cr down a little overnight -will do bumex drip for 8h today (similar to yesterday). Running it all night seems too risky wrt causing JOANNA. -likely will benefit from 1-2 more days of IV diuresis then transition to oral C/O foamy urine which is new this admission, anasarca. -checked urine prot/Cr ratio. No proteinuria. Was also neg in fall. (2) Rash: Plan: b/l thighs, b/l shins. CT L thigh without abscess/phlegmon/air in tissue to suggest nec fasc/etc b/l LE dopplers neg for DVT esr/crp reviewed and they are low did not improve on 7d course rocephin/daptomycin this finally resolved once effective diuresis started. suspect it was primarily inflamed edema, setting of thrombocytopenia which caused tiny petechial/capillary leak (3) COVID-19: Plan: patient with systemic infectious symptoms - cold chills, fatigue, poor appetite, nausea, diarrhea, myalgias. Resolved COVID/flu/RSV swab 08/03/23 - returned POSITIVE for COVID. Although she had a + COVID test in early April her COVID PCR in June was negative. c/w recurrent COVID there was no indication for steroids, Remdesivir contraindicated due to cirrhosis. symptoms resolved off isolation d/w infection control (4) Abdominal wall cellulitis: Plan: resolved Completed treatment with ceftriaxone and daptomycin x 7 days. Remainder of pannus inflammation resolved with diuresis (5) Cellulitis of leg: Plan: R daily -resolved. Completed treatment with Rocephin and daptomycin -improved with diuresis as well -remaining erythema related to venous stasis (6) Depression: Plan: titrated up to current dose of effexor 225 mg daily per psychiatrist recs -Mood clearly improved -CMP with improved bili, stable INR -CMP INR in AM ordered (7) Diarrhea: Plan: Combination of COVID-19 and scheduled magnesium oxide (which she does NOT take regularly bid at home, but gets scheduled in the hospital). mag 1.9 today. c diff negative titrate lactulose for 3 BMs/day for chronic hepatic encephalopathy - resumed usual schedule 08/09. Ammonia 79 which is baseline for her. (8) Acute hypotension: Plan: present on admission resolved cont midodrine 5mg TID has developed JOANNA as outpatient when not on midodrine (9) JOANNA (acute kidney injury): Plan: peak Cr 1.58 at admission now stable at 0.8 remains <1 resolved likely had been pre-renal from volume shifts from paracentesis, copious diuretics, hypotension, etc would not stop midodrine - this seems to allow her to tolerate diuretics without JOANNA (10) Diabetes mellitus, type 2: Plan: last a1c 5% in June uncertain accuracy of her a1c due to chronic anemia but either way her glucose levels have been acceptable in back to back hospital stays -BG rev 08/11 at goal (11) Morbid obesity with BMI of 40.0-44.9, adult: Plan: patient's BMI has gone down with loss of volume from cirrhosis BMI now 35, likely has 30+ pounds of edema and ascites (12) Refractory ascites: Plan: at this point is on twice weekly schedule for paracentesis pleurX contraindicated/not advised due to infection risk and will ultimately be seeking out liver transplant appreciate IR assistance ascitic culture from para 07/31 with CONS growing late. potentially this is a contaminant however, CONS could cause a nosocomial SBP. cell count 07/31 reviewed not suggestive of SBP. Regardless received seven days treatment with daptomycin. para 08/05 for 4.7 L, followed by albumin fluid studies not suggestive of SBP culture negative to date - rev 08/10 para 08/08 <3L removed reflects diuretics WBC mildly elevated but PMN not elevated - only 2% follow culture - reviewed 08/10 remains negative ordered para for 08/12 per her routine cont bumex/aldactone (13) Anemia: Plan: multi-factorial history of iron deficiency, requires venofer, intolerant of oral iron phlebotomy during frequent hospitalizations playing a role Anemic and iron stores mildly low this admission - gave venofer 200 mg IV on 08/07 no evidence of any GI bleeding stool heme neg H/H improved to 31 08/10, stable thrombocytopenia and leukopenia (14) Portal vein thrombosis: Plan: previously on lovenox but this has been stopped due to frequent paracentesis, low platelets, etc (15) Cirrhosis: Plan: 2nd GILLESPIE frequent admissions for complications from such - HE, volume overload, JOANNA, etc follows with Dr Hilda Calvert, [facility] GI has follow-ups with liver transplant in August both at [facility] (09/01) and [facility] - they won't schedule until out of hospital. critical not to miss these intake appointments (16) Hyponatremia: Plan: 2nd to diuretics, cirrhosis, etc. hypervolemic and improved with diuresis daily BMP, stable today 137 (17) Pancytopenia: Plan: 2nd cirrhosis stable cell lines on CBC - rev 08/10 (18) TBI (traumatic brain injury): Plan: history of such (19) History of CVA (cerebrovascular accident): Plan: 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 (20) Chronic post-traumatic headache: Plan: treat symptoms (21) Hypothyroidism: Plan: last TSH 11.3 in late June which had been improving remains on levothyroxine 300mcg daily repeat a TSH in 2-3 weeks as outpatient Plan reviewed 08/10: CBC CMP INR ammonia - all stable. Check CBC CMP INR every few days DVT ppx: not on chemo ppx because of thrombocytopenia <70 and elevated INR, risks>benefits. Ambulates frequently in room. I updated her in room 08/11 Admission and Anticipated Discharge Date Admission Date: July 29, 2023 Subjective doing better. made a LOT more urine on bumex drip yesterday compared to 3 mg IV bid dosing. leg edema is down. abdominal wall edema also improved. Though still very edematous. No COVID sx. Physical Exam 2 Physical Exam: PHYSICAL EXAMINATION Last 24h vital signs reviewed, see documentation in flowsheet General: standing up in room HEENT: Normocephalic, atraumatic, pupils round and equal, sclerae anicteric, no conjunctival injection, moist mucus membranes Lungs: Normal respiratory effort. Heart: def Abdomen: Soft, nontender, distended/round, severe abdominal wall edema present but definitely improved, striae now visible, no erythema, central pannus edema and inflammation resolved Extremities: Warm, dry, well-perfused. 2-3+ lower extremity edema significantly improved. feet legs thighs and abdominal wall. UE edema resolved skin: Warm dry there is some chronic bilateral lower extremity erythema at the shins tiny petechial / capillary pattern rash improved no spreading and some fading Neuro: Alert and oriented x 4, face symmetric, baseline UE tremor unchanged. Not confused. Psych: Normal affect and behavior Results & Data Results & Data Vital Signs (Past 12 Hours) Vital Signs Temp Pulse Pulse Resp BP Pulse Ox O2 Del Method 08/11/23 12:53 36.8 C 83 18 100/61 97 Room Air 08/11/23 08:00 77 08/11/23 07:40 36.7 C 82 18 98/56 L Room Air Laboratory Results 08/05/23 06:37 08/11/23 08:07 PG Care Time/CCT Total # of Minutes Spent Total Time Spent with Patient: Total time spent is greater than 50% in coordination of care (as documented) at patient's floor/unit and/or counseling patient: Coding Level of Care Code 61165 SUB INP/OBS CARE 2/35MIN Diagnoses Anasarca R60.1 Rash R21 COVID-19 U07.1 Abdominal wall cellulitis L03.311 Cellulitis of leg L03.119 Depression F32.9 Diarrhea R19.7 Acute hypotension I95.9 JOANNA (acute kidney injury) N17.9 Diabetes mellitus, type 2 E11.9 Morbid obesity with BMI of 40.0-44.9, adult E66.01; Z68.41 Refractory ascites R18.8 Anemia D64.9 Portal vein thrombosis I81 Cirrhosis K74.60 Hyponatremia E87.1 Pancytopenia D61.818 TBI (traumatic brain injury) S06.9X9A History of CVA (cerebrovascular accident) Z86.73 Chronic post-traumatic headache G44.329 Hypothyroidism E03.9
[2023-08-12] MEDS: LEVOTHYROXINE SODIUM 150 MCG TABLET PO SCH (05:17)
[2023-08-12 06:46] LABS: Hemoglobin 7.5 g/dl (12.0-16.0); Mean Corpuscular Hemoglobin 27.3 pg (25.0-34.0); Mean Corpuscular Hgb Conc 31.3 g/dL (32.0-36.0); Mean Corpuscular Volume 87.3 fL (80.0-100.0); Mean Platelet Volume 9.8 fL (9.4-12.4); Platelet Count 62 K/uL (130-400); RDW Coefficient of Variation 18.6 % (11.5-14.5); Red Blood Count 2.75 M/uL (4.20-5.40); White Blood Count 2.28 K/ul (4.8-10.8)
[2023-08-12 07:22] LABS: Albumin Level 3.6 gm/dl (3.4-5.0); BUN Creatinine Ratio 16.5 (10-20); Bilirubin,Total 1.5 mg/dl (0.2-1.0); Calcium 8.6 mg/dl (8.6-10.3); Creatinine Clr Calc Pharmacy 91.1 ml/min; Est GFR (African American) 83.5 ml/min; Globulin 1.8 gm/dl (2.5-4.0); Potassium 3.7 mmol/L (3.5-5.1); Total Protein 5.4 gm/dl (6.0-8.3)
[2023-08-12 07:29] LABS: INR 1.5 (0.9-1.1); Prothrombin Time 16.3 Seconds (9.0-12.0)
[2023-08-12] MEDS: POTASSIUM CHLORIDE CRTAB 20 MEQ TABCR PO SCH ×4 (08:27→20:42)
[2023-08-12] MEDS: DOCUSATE SODIUM 100 MG CAP PO SCH ×2 (08:28→20:23)
[2023-08-12] MEDS: rOPINIRole HCL 2 MG TABLET PO SCH ×3 (08:29→20:18)
[2023-08-12] MEDS: MIDODRINE HCL 2.5 MG TAB PO SCH ×3 (08:29→16:36)
[2023-08-12] MEDS: hydrOXYzine HCl 10 MG TAB PO PRN ×2 (08:30→20:15)
[2023-08-12] MEDS: VENLAFAXINE HCL XR 75 MG CAPXR PO SCH (08:30)
[2023-08-12] MEDS: rifAXIMin 550 MG TABLET PO SCH ×2 (08:30→20:18)
[2023-08-12] MEDS: SPIRONOLACTONE 100 MG TAB PO SCH (08:30)
[2023-08-12] MEDS: LACTULOSE SYRUP 20 GM/30 ML UDC PO SCH ×3 (08:31→20:16)
[2023-08-12] MEDS: FAMOTIDINE 40 MG TABLET PO SCH (08:31)
[2023-08-12] MEDS: HEPARIN SOD 5,000 UNIT/0.5 ML VIAL SQ SCH ×2 (08:31→20:18)
[2023-08-12] MEDS: PROCHLORPERAZINE MALEATE 10 MG TAB PO SCH ×3 (08:31→16:36)
[2023-08-12] MEDS: CALCIUM CARBONATE 500 MG CHEWABLE TAB PO SCH ×3 (08:31→16:37)
[2023-08-12] MEDS: MICONAZOLE NITRATE 2% CR 30 GM TUBE EXT SCH ×2 (08:32→20:22)
[2023-08-12] MEDS: MICONAZOLE NITRATE POWDER 85 GM EXT SCH ×2 (08:32→20:22)
[2023-08-12] MEDS: PANTOprazole 40 MG TAB PO SCH ×2 (08:32→20:19)
[2023-08-12] MEDS: TRIAMCINOLONE ACET 0.1% CR 80 GM TUBE EXT SCH ×3 (08:33→20:22)
[2023-08-12] MEDS: oxyCODONE HCL IR 5 MG TAB (IMMEDIATE RELEASE) PO PRN (08:45)
[2023-08-12] MEDS: CYCLOBENZAPRINE HCL 5 MG TAB PO PRN ×2 (11:37→20:17)
[2023-08-12 13:33] LABS: Appearance Peritoneal Fluid Cloudy; Color Peritoneal Fluid Straw; Lymphocytes, Fluid 28 %; Mono,Macrophage,Mesothelial 55 %; Neutrophils, Fluid 17 %; RBC Peritoneal Fluid Auto 19000 /uL; WBC Peritoneal Fluid Auto 437 /ul (0-300)
[2023-08-12] MEDS: ALBUMIN 25% 25 GM/100 ML VIAL IV SCH ×2 (14:46→16:37)
--- NOTE | 2023-08-12 14:49 | Ultrasound Report ---
ULTRASOUND-GUIDED PARACENTESIS CLINICAL HISTORY: Ascites PROCEDURE: Procedure and risks were explained. Informed consent was obtained. A final timeout was com pleted. The abdomen was prepped and draped in sterile fashion. 1% buffered lidocaine was utilized for skin anesthesia. Utilizing ultrasound guidance, a 5 Amharic safety centesis catheter was advanced into the left upper q uadrant pocket of ascites. Ultrasound images were obtained. A total of 2.7 L of ascites fluid was rem kurtis, with 1 L sent to lab for analysis. The catheter was removed and (1) 3-0 nylon suture was utiliz ed to close the puncture site. The patient tolerated the procedure well. Vital signs will be monitore d prior to discharge. IMPRESSION: Ultrasound-guided paracentesis as above. Performed, dictated, and signed by Marvin Greene PA-C; to be co-signed by Dr. Guero Garcia. Electronically signed by: Guero Garcia M.D. 08/12/2023 3:16 PM
[2023-08-12] MEDS ORDERED: BUMETANIDE 1 MG TAB PO ONE (17:42)
--- NOTE | 2023-08-12 20:07 | Hospitalist Progress Note ---
Date of Service August 12, 2023 Assessment & Plan (1) COVID-19: Plan: resolved flu-like symptoms including fever early in the stay tested + 08/03/23 likely with RECURRENT COVID infection (had COVID in 04/16 as well) airborne isolation has been d/c (2) Rash: Plan: b/l thighs, b/l shins. resolved. was likely due to severe edema / capillaritis. (3) Abdominal wall cellulitis: Plan: resolved completed full course of abx (4) Cellulitis of leg: Plan: b/l shins resolved (5) Diarrhea: Plan: resolved (6) Acute hypotension: Plan: present on admission resolved cont midodrine 5mg TID (7) JOANNA (acute kidney injury): Plan: peak Cr 1.58 at admission remains <1 resolved likely had been pre-renal from volume shifts from paracentesis, copious diuretics, hypotension, etc (8) Diabetes mellitus, type 2: Plan: last a1c 5% in June uncertain accuracy of her a1c due to chronic anemia but either way her glucose levels have been acceptable in back to back hospital stays (9) Morbid obesity with BMI of 40.0-44.9, adult: Plan: patient's BMI has gone down with loss of volume from cirrhosis BMI now 36 (10) Refractory ascites: Plan: cont twice weekly schedule for paracentesis pleurX contraindicated/not advised due to infection risk and will ultimately be seeking out liver transplant appreciate IR assistance s/p paracentesis ltoday - again fluid studies not suggestive of SBP resume PO bumex 1mg BID cont aldactone 100mg daily (11) Anemia: Plan: multi-factorial has had significant Fe Def in the recent past s/p IV venofer did get 1 dose of venofer in the last week likely to need another tomorrow daily CBC while here no evidence of any GI bleeding stool heme neg (12) Portal vein thrombosis: Plan: previously on lovenox but this has been stopped due to frequent paracentesis, low platelets, etc (13) Cirrhosis: Plan: 2nd GILLESPIE frequent admissions for complications from such - HE, volume overload, JOANNA, etc follows with Dr Hilda Calvert [facility] (14) Hyponatremia: Plan: 2nd to diuretics, cirrhosis, etc resolved daily BMP (15) Pancytopenia: Plan: 2nd cirrhosis repeat cbc am (16) TBI (traumatic brain injury): Plan: history of such (17) History of CVA (cerebrovascular accident): Plan: 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 (18) Chronic post-traumatic headache: Plan: treat symptoms (19) Hypothyroidism: Plan: last TSH 11.3 in late June which had been improving remains on levothyroxine 300mcg daily repeat a TSH next couple of days Plan hopefully home soon Admission and Anticipated Discharge Date Admission Date: July 29, 2023 Subjective underwent paracentesis this am just shy of 3 L removed w/o events Niesha overall feels much better in comparison to earlier in the stay eating/drinking does have baseline nausea denies vomiting however stools - about 3 per day at this point rash on legs resolved no cellulitis any location hoping to go home soon Review of Systems Review of Systems: gen - no fevers or chills cv - no chest pain pulm - no dyspnea GI - no abd pain Physical Exam Physical Exam: gen - NAD, looks much better than previous mouth - MMM; no thrush neck - no JVD heart - RRR, s1 s2, 2/6 EDUARDO LSB lungs - CTA b/l abd - abdominal wall edema, maybe minimal ascites; prior paracentesis sites covered w/ optifoams; no abdominal wall cellulitis ext - 2+ edema b/l to the thighs (improved from prior exams) neuro - no asterixis, speech clear psych - a/o x 3 Results & Data Results & Data Vital Signs (Past 12 Hours) Vital Signs Temp Pulse Resp BP Pulse Ox O2 Del Method 08/12/23 19:00 36.3 C L 63 18 117/72 99 Room Air 08/12/23 15:15 36.7 C 76 17 102/63 98 Room Air 08/12/23 12:15 36.7 C 78 18 104/64 96 Room Air Laboratory Results Laboratory Results - last 48 hr 08/12/23 08/12/23 06:24 Unknown WBC 2.28 L RBC 2.75 L Hgb 7.5 L Hct 24.0 L MCV 87.3 MCH 27.3 MCHC 31.3 L RDW Std Deviation 59.0 H RDW Coeff of Henna 18.6 H Plt Count 62 L MPV 9.8 PT 16.3 H INR 1.5 H Sodium 137 Potassium 3.7 Chloride 102 Carbon Dioxide 31 Anion Gap 4 BUN 16 Creatinine 0.97 Est Cr Clr Drug Dosing 91.1 Est GFR ( Amer) 83.5 Est GFR (Non-Af Amer) 72.0 BUN/Creatinine Ratio 16.5 Glucose 91 Calcium 8.6 Total Bilirubin 1.5 H AST 35 ALT 14 Alkaline Phosphatase 56 Total Protein 5.4 L Albumin 3.6 Globulin 1.8 L Albumin/Globulin Ratio 2.0 Fluid Neutrophils % 17 Fluid Lymphocytes % 28 Fluid Meso/Macro/Levy % 55 Fluid Comment Peritoneal Color Straw Peritoneal Appearance Cloudy Peritoneal WBC (Auto) 437 H Peritoneal RBC (Auto) 75210 PG Care Time/CCT Total # of Minutes Spent Total Time Spent with Patient: Total time spent is greater than 50% in coordination of care (as documented) at patient's floor/unit and/or counseling patient: Coding Level of Care Code 81722 SUB INP/OBS CARE 2/35MIN Diagnoses COVID-19 U07.1 Rash R21 Abdominal wall cellulitis L03.311 Cellulitis of leg L03.119 Diarrhea R19.7 Acute hypotension I95.9 JOANNA (acute kidney injury) N17.9 Diabetes mellitus, type 2 E11.9 Morbid obesity with BMI of 40.0-44.9, adult E66.01; Z68.41 Refractory ascites R18.8 Anemia D64.9 Portal vein thrombosis I81 Cirrhosis K74.60 Hyponatremia E87.1 Pancytopenia D61.818 TBI (traumatic brain injury) S06.9X9A History of CVA (cerebrovascular accident) Z86.73 Chronic post-traumatic headache G44.329 Hypothyroidism E03.9
[2023-08-12] MEDS: MAGNESIUM OXIDE 400 MG TAB PO SCH (20:22)
[2023-08-12] MEDS: ALPRAZolam 0.5 MG TABLET PO PRN (20:32)
[2023-08-12] MEDS: ACETAMINOPHEN 500 MG TAB PO PRN (20:32)
[2023-08-13] MEDS: LEVOTHYROXINE SODIUM 150 MCG TABLET PO SCH (03:55)
[2023-08-13] MEDS: hydrOXYzine HCl 10 MG TAB PO PRN ×3 (03:55→23:23)
[2023-08-13 06:30] LABS: Hematocrit (blood only) 23.5 % (37.0-47.0); Hemoglobin 7.3 g/dl (12.0-16.0); Mean Corpuscular Hemoglobin 27.2 pg (25.0-34.0); Mean Corpuscular Hgb Conc 31.1 g/dL (32.0-36.0); Mean Corpuscular Volume 87.7 fL (80.0-100.0); Mean Platelet Volume 9.7 fL (9.4-12.4); Platelet Count 51 K/uL (130-400); RDW Coefficient of Variation 18.8 % (11.5-14.5); Red Blood Count 2.68 M/uL (4.20-5.40); White Blood Count 1.47 K/ul (4.8-10.8)
[2023-08-13 06:54] LABS: BUN Creatinine Ratio 17.6 (10-20); Calcium 9.1 mg/dl (8.6-10.3); Est GFR (Non-African American) 84.5 ml/min
[2023-08-13] MEDS: PROCHLORPERAZINE MALEATE 10 MG TAB PO SCH ×3 (07:57→16:32)
[2023-08-13] MEDS: FAMOTIDINE 40 MG TABLET PO SCH (07:58)
[2023-08-13] MEDS: MIDODRINE HCL 2.5 MG TAB PO SCH ×3 (07:59→16:32)
[2023-08-13] MEDS: VENLAFAXINE HCL XR 75 MG CAPXR PO SCH (07:59)
[2023-08-13] MEDS: HEPARIN SOD 5,000 UNIT/0.5 ML VIAL SQ SCH ×2 (07:59→20:37)
[2023-08-13] MEDS: rOPINIRole HCL 2 MG TABLET PO SCH ×3 (08:00→20:48)
[2023-08-13] MEDS: LACTULOSE SYRUP 20 GM/30 ML UDC PO SCH ×3 (08:00→20:37)
[2023-08-13] MEDS: BUMETANIDE 1 MG TAB PO SCH ×2 (08:00→16:32)
[2023-08-13] MEDS: SPIRONOLACTONE 100 MG TAB PO SCH (08:00)
[2023-08-13] MEDS: rifAXIMin 550 MG TABLET PO SCH ×2 (08:02→20:48)
[2023-08-13] MEDS ORDERED: IRON SUCROSE 300 MG in SODIUM CHLORIDE 0.9% 250 ML IV ONE (08:15)
[2023-08-13] MEDS: CALCIUM CARBONATE 500 MG CHEWABLE TAB PO SCH ×3 (08:49→16:33)
[2023-08-13] MEDS: DOCUSATE SODIUM 100 MG CAP PO SCH ×2 (08:49→20:48)
[2023-08-13] MEDS: POTASSIUM CHLORIDE CRTAB 20 MEQ TABCR PO SCH ×3 (08:49→20:48)
[2023-08-13] MEDS: PANTOprazole 40 MG TAB PO SCH ×2 (08:49→20:48)
[2023-08-13] MEDS: MAGNESIUM OXIDE 400 MG TAB PO SCH ×2 (08:50→20:49)
[2023-08-13] MEDS: MICONAZOLE NITRATE 2% CR 30 GM TUBE EXT SCH ×2 (08:51→20:51)
[2023-08-13] MEDS: TRIAMCINOLONE ACET 0.1% CR 80 GM TUBE EXT SCH ×3 (08:51→20:48)
[2023-08-13] MEDS: MICONAZOLE NITRATE POWDER 85 GM EXT SCH ×2 (08:53→20:51)
[2023-08-13] MEDS ORDERED: BUMETANIDE 1 MG TAB PO ONE (18:07)
[2023-08-13] MEDS: CYCLOBENZAPRINE HCL 5 MG TAB PO PRN (23:23)
[2023-08-13] MEDS: ALPRAZolam 0.5 MG TABLET PO PRN (23:23)
[2023-08-14] MEDS: ACETAMINOPHEN 500 MG TAB PO PRN ×2 (01:13→22:04)
[2023-08-14] MEDS: LEVOTHYROXINE SODIUM 150 MCG TABLET PO SCH (05:41)
--- NOTE | 2023-08-14 05:47 | Hospitalist Progress Note ---
Date of Service August 14, 2023 Assessment & Plan (1) COVID-19: Plan: present earlier in the admission --> resolved flu-like symptoms including fever early in the stay tested + 08/03/23 likely with RECURRENT COVID infection (had COVID in 04/16 as well) airborne isolation has been d/c illness resolved (2) Rash: Plan: b/l thighs, b/l shins. resolved. was likely due to severe edema / capillaritis. (3) Abdominal wall cellulitis: Plan: resolved completed full course of abx (4) Cellulitis of leg: Plan: b/l shins resolved (5) Diarrhea: Plan: resolved 3-4 stools/day is 2nd to lactulose therapy for HE prevention (6) Acute hypotension: Plan: present on admission resolved cont midodrine 5mg TID BPs remain very acceptable (7) JOANNA (acute kidney injury): Plan: peak Cr 1.58 at admission remains <1 resolved likely had been pre-renal from volume shifts from paracentesis, copious diuretics, hypotension, etc (8) Diabetes mellitus, type 2: Plan: last a1c 5% in June uncertain accuracy of her a1c due to chronic anemia but either way her glucose levels have been acceptable in back to back hospital stays (9) Morbid obesity with BMI of 40.0-44.9, adult: Plan: patient's BMI has gone down with loss of volume from cirrhosis BMI now 36 (10) Refractory ascites: Plan: cont twice weekly schedule for paracentesis next para is scheduled for 08/15/23 pleurX contraindicated/not advised due to infection risk and will ultimately be seeking out liver transplant appreciate IR assistance most recent paracentesis - fluid studies not suggestive of SBP cont bumex 1mg BID; give extra 1mg dose today for total 3mg today cont aldactone 100mg daily (11) Anemia: Plan: multi-factorial has had significant Fe Def in the recent past s/p IV venofer did get 1 dose of venofer in the last week gave another dose today likely 3rd dose tomorrow daily CBC while here no evidence of any GI bleeding stool heme neg most recent ferritin level = 19 (07/29/23) (12) Portal vein thrombosis: Plan: previously on lovenox but this has been stopped due to frequent paracentesis, low platelets, etc (13) Cirrhosis: Plan: 2nd GILLESPIE frequent admissions for complications from such - HE, volume overload, JOANNA, etc follows with Jessica Stout see discussion above re: paracentesis/ascites, diuretics, etc (14) Hyponatremia: Plan: 2nd to diuretics, cirrhosis, etc resolved daily BMP due to frequent fluctuations in Cr, K, Na, etc (15) Pancytopenia: Plan: 2nd cirrhosis cell lines low but acceptable repeat cbc am (16) TBI (traumatic brain injury): Plan: history of such (17) History of CVA (cerebrovascular accident): Plan: 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 (18) Chronic post-traumatic headache: Plan: no issues (19) Hypothyroidism: Plan: last TSH 11.3 in late June which had been improving remains on levothyroxine 300mcg daily repeat a TSH next couple of days to ensure stability Plan patient requests d/c to home on Friday following her paracentesis Admission and Anticipated Discharge Date Admission Date: July 29, 2023 Subjective no events overnight overall feeling well mild nausea this am but none since no vomiting 4 stools today eating well abdominal distension about the same as prior tolerated IV iron w/o difficulty today Review of Systems Review of Systems: gen - no fevers cv - no chest pain, edema about the same pulm - no cough Gi - no abd pain Physical Exam Physical Exam: gen - NAD, looks well mouth - MMM; no thrush neck - no JVD heart - RRR, s1 s2, 2/6 EDUARDO LSB lungs - CTA b/l abd - abdominal wall edema vs ascites; prior paracentesis sites covered w/ optifoams; no abdominal wall cellulitis ext - 2+ edema b/l (shins & thighs) - much of this is lymphedema psych - a/o x 3 Results & Data Results & Data Vital Signs (Past 12 Hours) Vital Signs Temp Pulse Resp BP BP Pulse Ox O2 Del Method 08/13/23 19:14 36.6 C 81 18 115/70 97 Room Air 08/13/23 15:50 36.7 C 88 14 124/75 95 Room Air 08/13/23 10:39 36.7 C 79 15 104/68 97 Room Air 08/13/23 09:02 36.3 C L 74 16 100/65 97 Room Air 08/13/23 07:13 36.7 C 79 16 126/67 95 Room Air Laboratory Results Laboratory Results - last 24 hr 08/13/23 06:05 WBC 1.47 L RBC 2.68 L Hgb 7.3 L Hct 23.5 L MCV 87.7 MCH 27.2 MCHC 31.1 L RDW Std Deviation 61.0 H RDW Coeff of Henna 18.8 H Plt Count 51 L MPV 9.7 Sodium 140 Potassium 4.0 Chloride 105 Carbon Dioxide 30 Anion Gap 5 BUN 15 Creatinine 0.85 Est Cr Clr Drug Dosing 104.0 Est GFR ( Amer) 98.0 Est GFR (Non-Af Amer) 84.5 BUN/Creatinine Ratio 17.6 Glucose 81 Calcium 9.1 PG Care Time/CCT Total # of Minutes Spent Total Time Spent with Patient: Total time spent is greater than 50% in coordination of care (as documented) at patient's floor/unit and/or counseling patient: Coding Level of Care Code 31537 SUB INP/OBS CARE 2/35MIN Diagnoses COVID-19 U07.1 Rash R21 Abdominal wall cellulitis L03.311 Cellulitis of leg L03.119 Diarrhea R19.7 Acute hypotension I95.9 JOANNA (acute kidney injury) N17.9 Diabetes mellitus, type 2 E11.9 Morbid obesity with BMI of 40.0-44.9, adult E66.01; Z68.41 Refractory ascites R18.8 Anemia D64.9 Portal vein thrombosis I81 Cirrhosis K74.60 Hyponatremia E87.1 Pancytopenia D61.818 TBI (traumatic brain injury) S06.9X9A History of CVA (cerebrovascular accident) Z86.73 Chronic post-traumatic headache G44.329 Hypothyroidism E03.9
[2023-08-14 06:52] LABS: Hematocrit (blood only) 25.7 % (37.0-47.0); Hemoglobin 7.9 g/dl (12.0-16.0); Mean Corpuscular Hemoglobin 27.2 pg (25.0-34.0); Mean Corpuscular Hgb Conc 30.7 g/dL (32.0-36.0); Mean Corpuscular Volume 88.6 fL (80.0-100.0); Mean Platelet Volume 9.7 fL (9.4-12.4); Platelet Count 59 K/uL (130-400); RDW Coefficient of Variation 19.1 % (11.5-14.5); RDW Standard Deviation 62.3 fL (36.4-46.3); White Blood Count 2.34 K/ul (4.8-10.8)
[2023-08-14 07:25] LABS: Calcium 8.9 mg/dl (8.6-10.3); Creatinine Clr Calc Pharmacy 88.4 ml/min; Est GFR (African American) 80.5 ml/min; Est GFR (Non-African American) 69.4 ml/min; Potassium 3.9 mmol/L (3.5-5.1)
[2023-08-14] MEDS: PROCHLORPERAZINE MALEATE 10 MG TAB PO SCH ×3 (07:53→16:21)
[2023-08-14] MEDS: MIDODRINE HCL 2.5 MG TAB PO SCH ×3 (07:53→16:20)
[2023-08-14] MEDS: CALCIUM CARBONATE 500 MG CHEWABLE TAB PO SCH ×3 (07:54→16:20)
[2023-08-14] MEDS: rOPINIRole HCL 2 MG TABLET PO SCH ×3 (08:24→22:04)
[2023-08-14] MEDS: rifAXIMin 550 MG TABLET PO SCH ×2 (08:25→22:04)
[2023-08-14] MEDS: MAGNESIUM OXIDE 400 MG TAB PO SCH ×2 (08:25→22:04)
[2023-08-14] MEDS: SPIRONOLACTONE 100 MG TAB PO SCH (08:25)
[2023-08-14] MEDS: FAMOTIDINE 40 MG TABLET PO SCH (08:25)
[2023-08-14] MEDS: HEPARIN SOD 5,000 UNIT/0.5 ML VIAL SQ SCH ×2 (08:26→23:22)
[2023-08-14] MEDS: PANTOprazole 40 MG TAB PO SCH ×2 (08:26→22:04)
[2023-08-14] MEDS: VENLAFAXINE HCL XR 75 MG CAPXR PO SCH (08:26)
[2023-08-14] MEDS: TRIAMCINOLONE ACET 0.1% CR 80 GM TUBE EXT SCH ×3 (08:27→22:05)
[2023-08-14] MEDS: LACTULOSE SYRUP 20 GM/30 ML UDC PO SCH ×3 (08:27→21:56)
[2023-08-14] MEDS: MICONAZOLE NITRATE POWDER 85 GM EXT SCH ×2 (08:29→23:22)
[2023-08-14] MEDS: MICONAZOLE NITRATE 2% CR 30 GM TUBE EXT SCH ×2 (08:29→23:22)
[2023-08-14] MEDS ORDERED: IRON SUCROSE 300 MG in SODIUM CHLORIDE 0.9% 250 ML IV ONE (08:30)
[2023-08-14] MEDS: POTASSIUM CHLORIDE CRTAB 20 MEQ TABCR PO SCH ×3 (08:39→22:04)
[2023-08-14] MEDS: DOCUSATE SODIUM 100 MG CAP PO SCH ×2 (08:39→22:04)
[2023-08-14] MEDS: BUMETANIDE 1 MG TAB PO SCH ×2 (08:39→16:20)
[2023-08-14] MEDS: hydrOXYzine HCl 10 MG TAB PO PRN ×2 (18:09→22:04)
[2023-08-14] MEDS ORDERED: hydrOXYzine HCl 25 MG TAB PO STA (19:25)
--- NOTE | 2023-08-14 19:59 | Hospitalist Progress Note ---
Date of Service August 14, 2023 Assessment & Plan (1) COVID-19: Plan: present earlier in the admission --> illness fully resolved tested + 08/03/23 likely with RECURRENT COVID infection (had COVID in 04/16 as well) airborne isolation has been d/c (2) Rash: Plan: b/l thighs, b/l shins. resolved. was likely due to severe edema / capillaritis. (3) Abdominal wall cellulitis: Plan: resolved completed full course of abx (4) Cellulitis of leg: Plan: b/l shins resolved (5) Diarrhea: Plan: resolved 3-4 stools/day is 2nd to lactulose therapy for HE prevention (6) Acute hypotension: Plan: present on admission resolved cont midodrine 5mg TID BPs remain very acceptable would d/c home on midodrine TID to prevent BP drops in and around the time of her paracentesis, etc (7) JOANNA (acute kidney injury): Plan: peak Cr 1.58 at admission remains <1 resolved likely had been pre-renal from volume shifts from paracentesis, copious diuretics, hypotension, etc (8) Diabetes mellitus, type 2: Plan: last a1c 5% in June uncertain accuracy of her a1c due to chronic anemia but either way her glucose levels have been acceptable in back to back hospital stays (9) Morbid obesity with BMI of 40.0-44.9, adult: Plan: patient's BMI has gone down with loss of volume from cirrhosis BMI now 35-36 (10) Refractory ascites: Plan: cont twice weekly schedule for paracentesis next para is scheduled for 08/15/23 pleurX contraindicated/not advised due to infection risk and will ultimately be seeking out liver transplant appreciate IR assistance most recent paracentesis - fluid studies not suggestive of SBP cont bumex 1mg BID cont aldactone 100mg daily plan for her usual paracentesis tomorrow with albumin IV post-para (11) Anemia: Plan: multi-factorial has had significant Fe Def in the recent past s/p IV venofer did get 1 dose of venofer in the last week gave another dose today likely 3rd dose tomorrow daily CBC while here no evidence of any GI bleeding stool heme neg most recent ferritin level = 19 (07/29/23) transferrin sat <20% (16%) (12) Portal vein thrombosis: Plan: previously on lovenox but this has been stopped due to frequent paracentesis, low platelets, etc (13) Cirrhosis: Plan: 2nd GILLESPIE frequent admissions for complications from such - HE, volume overload, JOANNA, etc follows with Dr Hilda Calvert [facility] see discussion above re: paracentesis/ascites, diuretics, etc (14) Hyponatremia: Plan: 2nd to diuretics, cirrhosis, etc resolved daily BMP due to frequent fluctuations in Cr, K, Na, etc (15) Pancytopenia: Plan: 2nd cirrhosis cell lines low but acceptable repeat cbc am for stability (16) TBI (traumatic brain injury): Plan: history of such (17) History of CVA (cerebrovascular accident): Plan: 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 (18) Chronic post-traumatic headache: Plan: no issues (19) Hypothyroidism: Plan: last TSH 11.3 in late June which had been improving remains on levothyroxine 300mcg daily repeat a TSH tomorrow am Plan plan for d/c home tomorrow Admission and Anticipated Discharge Date Admission Date: July 29, 2023 Subjective no new issues overnight had mild nausea this am only otherwise eating/drinking fine no dyspnea no abd pain today mild itching around her IV site L upper arm hoping to go home tomorrow following her paracentesis Review of Systems Review of Systems: gen - no fevers cv - no chest pain pulm - no dyspnea or YAN GI - no melena stool; 4 stools today Physical Exam Physical Exam: gen - NAD, looks well mouth - MMM; no thrush neck - no JVD heart - RRR, s1 s2, 2/6 EDUARDO LSB lungs - CTA b/l abd - abdominal wall edema vs ascites; prior paracentesis sites clean & not leaking; no abdominal wall cellulitis; chronic stasis changes of lower abdominal wall ext - 2+ edema b/l (shins & thighs) - much of this is lymphedema - unchanged psych - a/o x 3 skin - left upper arm IV site - clean, no rash Results & Data Results & Data Vital Signs (Past 12 Hours) Vital Signs Temp Pulse Resp BP Pulse Ox O2 Del Method 08/14/23 15:15 36.5 C 83 16 122/76 95 Room Air 08/14/23 10:20 36.4 C L 79 16 117/73 99 Room Air 08/14/23 08:53 36.3 C L 83 18 106/67 98 Room Air Laboratory Results Laboratory Results - last 24 hr 08/14/23 06:24 WBC 2.34 L RBC 2.90 L Hgb 7.9 L Hct 25.7 L MCV 88.6 MCH 27.2 MCHC 30.7 L RDW Std Deviation 62.3 H RDW Coeff of Henna 19.1 H Plt Count 59 L MPV 9.7 Sodium 140 Potassium 3.9 Chloride 104 Carbon Dioxide 29 Anion Gap 7 BUN 14 Creatinine 1.00 Est Cr Clr Drug Dosing 88.4 Est GFR ( Amer) 80.5 Est GFR (Non-Af Amer) 69.4 BUN/Creatinine Ratio 14.0 Glucose 89 Calcium 8.9 PG Care Time/CCT Total # of Minutes Spent Total Time Spent with Patient: Total time spent is greater than 50% in coordination of care (as documented) at patient's floor/unit and/or counseling patient: Coding Level of Care Code 78120 SUB INP/OBS CARE 09/18MIN Diagnoses COVID-19 U07.1 Rash R21 Abdominal wall cellulitis L03.311 Cellulitis of leg L03.119 Diarrhea R19.7 Acute hypotension I95.9 JOANNA (acute kidney injury) N17.9 Diabetes mellitus, type 2 E11.9 Morbid obesity with BMI of 40.0-44.9, adult E66.01; Z68.41 Refractory ascites R18.8 Anemia D64.9 Portal vein thrombosis I81 Cirrhosis K74.60 Hyponatremia E87.1 Pancytopenia D61.818 TBI (traumatic brain injury) S06.9X9A History of CVA (cerebrovascular accident) Z86.73 Chronic post-traumatic headache G44.329 Hypothyroidism E03.9
[2023-08-14] MEDS: ALPRAZolam 0.5 MG TABLET PO PRN (22:04)
[2023-08-14] MEDS: CYCLOBENZAPRINE HCL 5 MG TAB PO PRN (22:09)
[2023-08-15] MEDS: LEVOTHYROXINE SODIUM 150 MCG TABLET PO SCH (05:53)
[2023-08-15 06:41] LABS: Hematocrit (blood only) 25.7 % (37.0-47.0); Hemoglobin 7.8 g/dl (12.0-16.0)
[2023-08-15 06:50] LABS: Calcium 8.8 mg/dl (8.6-10.3); Creatinine Clr Calc Pharmacy 87.5 ml/min; Est GFR (African American) 80.5 ml/min; Est GFR (Non-African American) 69.4 ml/min
[2023-08-15 07:05] LABS: Thyroid Stimulating Hormone 3.777 uIu/ml (0.300-4.500)
[2023-08-15] MEDS: PROCHLORPERAZINE MALEATE 10 MG TAB PO SCH ×3 (07:57→16:27)
[2023-08-15] MEDS: CALCIUM CARBONATE 500 MG CHEWABLE TAB PO SCH ×3 (07:57→16:28)
[2023-08-15] MEDS: PANTOprazole 40 MG TAB PO SCH (07:58)
[2023-08-15] MEDS: TRIAMCINOLONE ACET 0.1% CR 80 GM TUBE EXT SCH ×2 (07:59→13:49)
[2023-08-15] MEDS: VENLAFAXINE HCL XR 75 MG CAPXR PO SCH (07:59)
[2023-08-15] MEDS: SPIRONOLACTONE 100 MG TAB PO SCH (07:59)
[2023-08-15] MEDS: MIDODRINE HCL 2.5 MG TAB PO SCH ×3 (07:59→16:27)
[2023-08-15] MEDS: FAMOTIDINE 40 MG TABLET PO SCH (07:59)
[2023-08-15] MEDS: rifAXIMin 550 MG TABLET PO SCH (08:00)
[2023-08-15] MEDS: LACTULOSE SYRUP 20 GM/30 ML UDC PO SCH ×3 (08:00→14:30)
[2023-08-15] MEDS: BUMETANIDE 1 MG TAB PO SCH ×2 (08:00→16:27)
[2023-08-15] MEDS: MAGNESIUM OXIDE 400 MG TAB PO SCH (08:01)
[2023-08-15] MEDS: MICONAZOLE NITRATE POWDER 85 GM EXT SCH (08:01)
[2023-08-15] MEDS: MICONAZOLE NITRATE 2% CR 30 GM TUBE EXT SCH (08:01)
[2023-08-15] MEDS: rOPINIRole HCL 2 MG TABLET PO SCH ×2 (08:01→13:49)
[2023-08-15] MEDS: HEPARIN SOD 5,000 UNIT/0.5 ML VIAL SQ SCH (08:01)
[2023-08-15] MEDS: POTASSIUM CHLORIDE CRTAB 20 MEQ TABCR PO SCH ×2 (08:10→14:28)
[2023-08-15] MEDS: DOCUSATE SODIUM 100 MG CAP PO SCH (08:10)
[2023-08-15] MEDS ORDERED: IRON SUCROSE 200 MG in 0.9 % SODIUM CHLORIDE 100 ML IV ONE (09:28)
[2023-08-15] MEDS ORDERED: METOCLOPRAMIDE HCL INJ 5 MG/ML 2 ML VIAL IV ONE (09:39)
--- NOTE | 2023-08-15 10:56 | Ultrasound Report ---
ULTRASOUND-GUIDED PARACENTESIS CLINICAL HISTORY: Ascites PROCEDURE: Procedure and risks were explained. Informed consent was obtained. A final timeout was com pleted. The abdomen was prepped and draped in sterile fashion. 1% buffered lidocaine was utilized for skin anesthesia. Utilizing ultrasound guidance, a 5 Bengali safety centesis catheter was advanced into the left upper q uadrant pocket of ascites. Ultrasound images were obtained. A total of 3.6 L of ascites fluid was rem kurtis, with 1 L sent to lab for analysis. The catheter was removed and (1) 3-0 nylon suture was utiliz ed to close the puncture site. The patient tolerated the procedure well. Vital signs will be monitore d prior to discharge. IMPRESSION: Ultrasound-guided paracentesis as above. Performed, dictated, and signed by Marvin Greene PA-C; to be co-signed by Dr. Guero Garcia. Electronically signed by: Guero Garcia M.D. 08/15/2023 2:53 PM
[2023-08-15] MEDS: ALBUMIN 25% 25 GM/100 ML VIAL IV SCH ×2 (12:15→14:16)
[2023-08-15 12:58] LABS: Appearance Peritoneal Fluid Cloudy; Color Peritoneal Fluid Amber; RBC Peritoneal Fluid Auto 16000 /uL; WBC Peritoneal Fluid Auto 358 /ul (0-300)
[2023-08-15 13:33] LABS: Lymphocytes, Fluid 15 %; Mono,Macrophage,Mesothelial 80 %; Neutrophils, Fluid 5 %
--- NOTE | 2023-08-15 17:32 | Discharge Summary ---
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 Patient with a systolic BP in the 60s in hematology clinic today. Patient was recently hospitalized for JOANNA and was discharged 07/28. Patient underwent paracentesis 07/25 removing about 7 liters. She developed lethargy and change in mental status over night. BP improved after albumin bolus. One time dose of lactulose was also given in the ED as ammonia slightly elevated. Upon my interview patient is lethargic, but awakens to voice. Able to answer questions appropriately, but with a delay. This is an alteration from previous interactions with this patient had by the author of this note. Patient reports feeling that her abdomen is increasing in size - about a liter a day. Does not yet feel it is ready to tap. Does report having abdominal pain. Patient denies any fevers. Does have a history of chronic nausea and chills. No change in urinary frequency. Does have dysuria when she begins to urinate that then resolves. Is having 2-3 BM daily on lactulose. Discussed history with Augie Gutiérrez () unclear of medication dosings. Discharge Exam gen - NAD, looks well mouth - MMM; no thrush neck - no JVD heart - RRR, s1 s2, 2/6 EDUARDO LSB lungs - CTA b/l abd - abdominal wall edema vs ascites; prior paracentesis sites clean & not leaking; no abdominal wall cellulitis; chronic stasis changes of lower abdominal wall ext - 2+ edema b/l (shins & thighs) - much of this is lymphedema - unchanged psych - a/o x 3 skin - left upper arm IV site - clean, no rash Discharge Data Allergies Allergy/AdvReac Type Severity Reaction Status Date / Time codeine Allergy Unknown Hives, Verified 07/29/23 12:07 [From Tylenol-Codeine #3] skin redness (Tyenol #3) Consultations 07/29/23 12:00 ED Decision to Admit Stat 08/02/23 17:02 Consult Behavioral Health Liaison Routine 08/02/23 19:04 Consult Psychiatry Routine Ordered Studies 07/31/23 07:23 IR paracentesis abd w/img US Routine 08/01/23 17:47 US venous doppler LE BI Urgent 08/02/23 16:05 CT leg [CT femur LT wo con] Urgent 08/05/23 08:56 IR paracentesis abd w/img US Routine 08/08/23 08:00 IR paracentesis abd w/img US Routine 08/12/23 09:00 IR paracentesis abd w/img US Routine 08/15/23 08:50 IR paracentesis abd w/img US Routine Hospital Course (1) COVID-19: present earlier in the admission --> illness fully resolved tested + 08/03/23 likely with RECURRENT COVID infection (had COVID in 04/16 as well) airborne isolation has been d/c (2) Rash: b/l thighs, b/l shins. resolved. was likely due to severe edema / capillaritis. (3) Abdominal wall cellulitis: resolved completed full course of abx (4) Cellulitis of leg: b/l shins resolved (5) Diarrhea: resolved 3-4 stools/day is 2nd to lactulose therapy for HE prevention (6) Acute hypotension: present on admission resolved cont midodrine 5mg TID BPs remain very acceptable would d/c home on midodrine TID to prevent BP drops in and around the time of her paracentesis, etc (7) JOANNA (acute kidney injury): peak Cr 1.58 at admission remains <1 resolved likely had been pre-renal from volume shifts from paracentesis, copious diuretics, hypotension, etc (8) Diabetes mellitus, type 2: last a1c 5% in June uncertain accuracy of her a1c due to chronic anemia but either way her glucose levels have been acceptable in back to back hospital stays (9) Morbid obesity with BMI of 40.0-44.9, adult: patient's BMI has gone down with loss of volume from cirrhosis BMI now 35-36 (10) Refractory ascites: cont twice weekly schedule for paracentesis next para is scheduled for 08/15/23 pleurX contraindicated/not advised due to infection risk and will ultimately be seeking out liver transplant appreciate IR assistance most recent paracentesis - fluid studies not suggestive of SBP cont bumex 1mg BID cont aldactone 100mg daily plan for her usual paracentesis tomorrow with albumin IV post-para (11) Anemia: multi-factorial has had significant Fe Def in the recent past s/p IV venofer did get 1 dose of venofer in the last week gave another dose today likely 3rd dose tomorrow daily CBC while here no evidence of any GI bleeding stool heme neg most recent ferritin level = 19 (07/29/23) transferrin sat <20% (16%) (12) Portal vein thrombosis: previously on lovenox but this has been stopped due to frequent paracentesis, low platelets, etc (13) Cirrhosis: 2nd GILLESPIE frequent admissions for complications from such - HE, volume overload, JOANNA, etc follows with Dr Hilda Calvert, [facility] see discussion above re: paracentesis/ascites, diuretics, etc (14) Hyponatremia: 2nd to diuretics, cirrhosis, etc resolved daily BMP due to frequent fluctuations in Cr, K, Na, etc (15) Pancytopenia: 2nd cirrhosis cell lines low but acceptable repeat cbc am for stability (16) TBI (traumatic brain injury): history of such (17) History of CVA (cerebrovascular accident): 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 hypotension (low blood pressure) - resolved 2. COVID-19 infection - resolved 3. abdominal wall cellulitis (skin infection) - resolved 4. rash on both legs - improved 5. confusion - due to high ammonia levels, infection, etc - resolved 6. cirrhosis 7. ascites with need for frequent paracentesis 8. depression 9. iron deficiency anemia - multiple runs of IV iron given 10. acute kidney injury - resolved Activity: Resume your previous activity Bathing Comment: May shower starting 08/16/23 but no tub baths due to the paracentesis sites Non-emergency contact: Primary Care Provider and Specialist Call non-emergency contact if: you have any medication questions, your symptoms worsen and you have a fever Follow-up/Referrals: Marvin Greene [Other] - 08/19/23 8:00 am (paracentesis - [facility] Radiology Department) [facility] [Provider Group] - 09/01/23 (Liver Transplant Clinic - [facility] in [place] ) Endy Stanley D.O. [Primary Care Provider] - 08/20/23 1:40 pm Hilda Calvert DO [Physician] - (keep any scheduled follow-up appointment ) Diet: Low Sodium (2gm) Ambulatory Orders: Basic Metabolic Panel (Routine) Timeframe: 20230819 Location: Determined by Patient Ordered By: Yan Rodriguez Complete Blood Count with Diff (Routine) Timeframe: 20230819 Location: Determined by Patient Ordered By: Yan Rodriguez Addtl Attending Provider Instructions: Ms Gutiérrez, You were hospitalized due to multiple issues including low blood pressure, acute kidney injury (your creatinine level in the blood constance), COVID-19 infection, abdominal wall skin infection, swelling/edema, ascites, and several other problems. Your COVID infection resolved, the skin infection on the abdomen went away with antibiotics, your kidney function returned to normal, and you received several paracentesis procedures to remove ascites fluid. Your last tap on 08/15/23 shows clear fluid without signs of infection. Psychiatry saw you in consult and recommended discontinuation of your lexapro and, in its place, to start effexor xr (venlafaxine) 225mg daily. You have done well on this thus far. Recommendations - 1. please report for your next paracentesis on 08/19/23 at [facility]. 2. on 08/19/23 please have a blood draw at the [facility] hospital lab. We will check your blood counts and your electrolytes/kidney function. 3. start midodrine 5mg three times daily for keep your blood pressure in a normal range. 4. continue your lactulose 3 times daily. Shoot for 3-4 bowel movements each day. 5. limit salt intake to NO MORE than 2000mg in a 24-hour period. This is very important for your health and to keep excess fluid from building up. 6. take sucralfate 1gram twice daily every day. 7. take venlafaxine xr -- 150mg + 75mg for a total of 225mg each day. This is for depression. 8. stop your lexapro (escitalopram). 9. please refrain from taking oxycodone, tizanidine, and other muscle relaxers as these make you VERY SLEEPY. 10. diuretics - these are vital for your health and your cirrhosis - * spironolactone 100mg each morning * bumetanide 1mg twice daily (morning and each afternoon) Follow-up - see separate section Return to [facility] if - * you have fever over 100 degrees * you have worsening lethargy, sleepiness, or difficulty staying awake * you have shortness of breath * you have abdominal pains * you have nausea that doesn't resolve with your medications * you have severe dizziness * any other concerns It was our pleasure caring for you! Happy holidays :) Pending Studies at Discharge: No Stand-Alone Forms: [facility], Smoking Cessation Medications and DC Order Prescriptions: New midodrine 5 mg tablet 5 mg PO TID Qty: 90 2RF Rx Instructions: do not give last dose of day after 6PM or within 4 hrs of bedtime; best to take at 0800, 12noon, and 5pm. venlafaxine [Effexor XR] 150 mg capsule,extended release 24hr 150 mg PO DAILY Qty: 30 1RF Rx Instructions: total daily dose = 225mg. venlafaxine [Effexor XR] 75 mg capsule,extended release 24hr 75 mg PO DAILY Qty: 30 1RF Rx Instructions: total daily dose = 225mg. Kristalose 20 gram packet 20 g PO TID Qty: 90 11RF Continued docusate sodium 100 mg capsule 100 mg PO BID levothyroxine 300 mcg tablet 300 mcg PO DAILYBB magnesium oxide 400 mg (241.3 mg magnesium) Tablet 400 mg PO BID Qty: 60 0RF ondansetron 8 mg tablet,disintegrating 8 mg translingual Q8 PRN (Reason: Nausea) ropinirole 4 mg tablet 4 mg PO TID valacyclovir 500 mg Tablet 500 mg PO Q8 PRN (Reason: .BREAKOUTS) cholecalciferol (vitamin D3) [Vitamin D3] 125 mcg (5,000 unit) Tablet 125 mcg PO QAM Xifaxan 550 mg tablet 550 mg PO Q12 Tums Gas Relief 750mg/80mg 1 tab PO TIDM triamcinolone acetonide 0.1 % Cream 1 applic EXT TID PRN (Reason: dry, itchy skin on legs/abdominal wall) Qty: 15 0RF Rx Instructions: use for 5 days then stop. Apply in very thin amounts only. Combivent Respimat 20-100 mcg/actuation Mist 1 puff INHALATION QID PRN (Reason: cough/wheeze/shortness of breath) Qty: 1 0RF Rx Instructions: space evenly during waking hours clobetasol 0.05 % solution 1 applic TOPICAL BID PRN (Reason: for scalp) [id number] 50-325-40 mg tablet 2 tab PO Q6 MDD 8 tablets PRN (Reason: Pain) promethazine [Promethegan] 25 mg suppository 25 mg [place] UD PRN (Reason: Nausea) famotidine 40 mg tablet 40 mg PO QAM hydroxyzine HCl 10 mg tablet 10 mg PO TID PRN (Reason: Itching) potassium chloride 10 mEq tablet extended release 20 meq PO BID omeprazole 40 mg Capsule,Delayed Release(Dr/Ec) 40 mg PO BID prochlorperazine maleate 5 mg tablet 5 mg PO QID PRN (Reason: Nausea) bumetanide 1 mg tablet 1 mg PO BID Qty: 60 2RF Rx Instructions: take every morning and each afternoon Changed sucralfate 1 gram tablet 1 g PO BID Qty: 60 2RF alprazolam 1 mg tablet 0.5 mg PO BID PRN (Reason: Anxiety) Qty: 1 0RF spironolactone 100 mg tablet 100 mg PO QAM Qty: 30 0RF Rx Instructions: take once daily each morning only. Discontinued escitalopram oxalate 10 mg tablet 10 mg PO QAM Kristalose Powder 1 dose PO TID Rx Instructions: 30 GRAM PER 1.5 PACKET. Does not take as much if she has more then 3 bms or gets diarrhea. oxycodone 15 mg tablet 15 mg PO Q6 PRN (Reason: Pain) tizanidine 4 mg tablet 4 mg PO HS Discharge Orders: Discharge Order (Routine); Ordered 08/15/23 Ordered By: Yan Rodriguez Admission Data Admit Date/Time: 07/29/23 12:59 Attending Provider: Yan Rodriguez Admit Provider: Josie Humphrey Primary Care Provider: Endy Stanley Other Providers: [place]; Yan Stevens; Manisha Alex; Dot Lyles; [place]; Valerio Suarez Coding Diagnoses COVID-19 U07.1 Rash R21 Abdominal wall cellulitis L03.311 Cellulitis of leg L03.119 Diarrhea R19.7 Acute hypotension I95.9 JOANNA (acute kidney injury) N17.9 Diabetes mellitus, type 2 E11.9 Morbid obesity with BMI of 40.0-44.9, adult E66.01; Z68.41 Refractory ascites R18.8 Anemia D64.9 Portal vein thrombosis I81 Cirrhosis K74.60 Hyponatremia E87.1 Pancytopenia D61.818 TBI (traumatic brain injury) S06.9X9A History of CVA (cerebrovascular accident) Z86.73 Chronic post-traumatic headache G44.329 Hypothyroidism E03.9
--- NOTE | 2023-08-19 12:18 | Coding Query ---
CODING QUERY To promote full compliance with coding requirements relating to patient care, provider participation is requested in all cases of solution lead uncertainty. Please assist us with the question(s) below: Coding Question(s): There is documentation of Acute Hypotension present on admission and documentation. The H&P documents, "Acute Hypotension Less likely hemorrhagic hypotension as H&H stable. Less like severe sepsis as patient does not meet SIRS criteria. Lactate 1.1. Most likely in the setting of diuretic use. Patient was HDS after paracentesis 07/25. Spironolactone restarted 07/25. Lasix 40 mg QD last dose 07/27. Transitioned to Bumex 1 mg 07/27. BP tolerated. Discharge meds - Bumex 1 mg BID and spironolactone 100 mg. Uncertain if this is what patient was taking at home", and the Supervising Physician documents, "Acute hypotension - almost certainly because she suddenly increased her Bumex from what she was getting in hospital in addition to taking an extra spironolactone last night. Having said that she does appear to require a higher dose of diuretics than her current BP allows therefore will start her back on midodrine as this will allow a higher BP to up titrate her diuretics while also making her less orthostatic", and also documents, "She thinks she took 3mg of bumex and 100mg of spironolactone last night". Please specify below, in your clinical opinion, regarding the Acute Hypotension present on admission: ( x ) Acute Hypotension present on admission was likely due to Bumex and Spironolactone. Please Specify further below, in your clinical opinion: ( ) likely due to patient taking too much Bumex and Spironolactone accidently ( x ) likely due to patient taking the prescribed amount of Bumex and Spironolactone ( ) likely other: Please Specify ( ) Acute Hypotension present on admission was likely due to Other: Please Specify ( ) Acute Hypotension present on admission was due to unknown likely cause Physician's Response(s): Thank you Pricilla Olivo Principal Diagnosis: "that condition established after study, to be chiefly responsible for occasioning the admission of the patient to the hospital for care." Co-Existing Principal Diagnosis: "when two or more diagnoses equally meet the criteria for principal diagnosis as determined by the circumstances of admission, diagnostic work up, and/or therapy provided, and the Alphabetic Index, Tabular List, or another coding guideline does not provide sequencing direction, any one of the diagnoses may be sequenced first." "When the physician has documented what appears to be a current diagnosis in the body of the record, but has not included the diagnosis in the final diagnostic statement, the physician should be asked whether the diagnosis should be added." (Source Coding Clinic 2 QTR90. p3-4) ROSA
== END 2023-08-15 19:00 | disposition home health service (06) | DRG 312 ==
LOC: ED 08:54 → EDINP 12:59 → SUATTDRO 12:59 → 2S 16:18 → 3E 08-12 23:41

== ENCOUNTER 2023-10-06 10:11 | Inpatient (IN) ==
[2023-10-06 11:44] LABS: Albumin Globulin Ratio 1.2 (0.9-2); Albumin Level 3.8 gm/dl (3.4-5.0); BUN Creatinine Ratio 15.9 (10-20); Bilirubin,Total 1.7 mg/dl (0.2-1.0); Calcium 9.2 mg/dl (8.6-10.3); Creatinine Clr Calc Pharmacy 87.3 ml/min; Est GFR (African American) 93.9 ml/min; Globulin 3.3 gm/dl (2.5-4.0); Potassium 3.3 mmol/L (3.5-5.1); Total Protein 7.1 gm/dl (6.0-8.3)
[2023-10-06 11:46] LABS: Basophils # (auto) 0.03 K/uL (0.00-0.20); Basophils % (auto) 1.2 %; Eosinophils # (auto) 0.09 K/uL (0.00-0.50); Eosinophils % (auto) 3.7 %; Hematocrit (blood only) 35.2 % (37.0-47.0); Hemoglobin 11.4 g/dl (12.0-16.0); Lymphocytes # (auto) 0.47 K/uL (1.20-3.40); Lymphocytes % (auto) 19.5 %; Mean Corpuscular Hgb Conc 32.4 g/dL (32.0-36.0); Mean Corpuscular Volume 89.6 fL (80.0-100.0); Mean Platelet Volume 9.7 fL (9.4-12.4); Monocytes # (auto) 0.32 K/uL (0.11-0.59); Monocytes % (auto) 13.3 %; Neutrophils % (auto) 62.3 %; Platelet Count 55 K/uL (130-400); RDW Standard Deviation 52.7 fL (36.4-46.3); Red Blood Count 3.93 M/uL (4.20-5.40); White Blood Count 2.41 K/ul (4.8-10.8)
[2023-10-06 11:49] LABS: Troponin I High Sensitivity 4.5 pg/ml (0-14)
[2023-10-06 11:54] LABS: INR 1.4 (0.9-1.1); Partial Thromboplastin Time 29 Seconds (21-31); Prothrombin Time 14.6 Seconds (9.0-12.0)
[2023-10-06 11:59] LABS: Thyroid Stimulating Hormone 7.37 uIu/ml (0.300-4.500)
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
[2023-10-06] MEDS: LACTULOSE SYRUP 30 GM/45 ML UDP PO STA (12:36)
--- NOTE | 2023-10-06 12:38 | XRay Report ---
XR chest 1V portable CLINICAL HISTORY: Weakness TECHNIQUE: Single frontal radiograph of the chest was obtained. Comparison: Comparison is made to chest radiograph 07/21/2023 FINDINGS: Cervical fixation hardware is seen. The cardiomediastinal silhouette is normal. The lungs are clear. No evidence of pleural effusion or pneumothorax. IMPRESSION: No acute chest disease. ACT 112: Negative or not required by law. Electronically signed by: Mohit Perez M.D. 10/06/2023 12:37 PM
--- OUTSIDE RECORDS SUMMARY | 2023-10-06 12:41 | External Medical Summary | Summary of Care ---
Author Name Unknown Organization [facility] Address [address] [facility] [place] [address] Phone [phone] Care Team Providers Care Substance Abuse Therapist Name Role Phone Endy Stanley DO Primary Care Provider [phone] [phone] Encounter Details Date Type Department Care Team (Late st Contact Info) Description 09/29/2023 Telephone Hepatology, [facility] [address] [place] [address] Hilda Calvert DO [address] [place] [address] Allergies Active Allergy Reactions Criticality Noted Date Comments Codeine Hives 07/18/2012 Metformin Abdominal pain Low 03/30/2013 documented as of this encounter (statuses as of 09/29/2023) Medications Medication Sig Dispensed Refills Start Date [...] a day 2700 mL 5 04/01/2018 Active linagliptin (TRADJENTA) 5 MG Tablet Take [...] hours as needed for Nausea. 0 Active Ipratropium-Albuterol 20-100 MCG/ACT Inhalation Aerosol Solution Inhale 1 Puff by mouth in the morning and 1 Puff at noon and 1 Puff in the evening and 1 Puff before bedtime. 0 Active Naloxone HCl 4 MG/0.1ML Nasal Liquid Administer 0.1 mL into nostril as needed. Administer 1 spray into 1 nostril for suspected opioid overdose. Seek immediate medical attention. [email or web address] Active Prochlorperazine Maleate 5 MG Oral [...] before bedtime. 180 Tablet 1 06/04/2023 Active Klor-Con 20 MEQ Oral Packet Take [...] as needed 50 mL 2 07/18/2023 Active Albumin Human 25 % Intravenous SolutionIndications:L iver cirrhosis secondary to nonalcoholic steatohepatitis (GILLESPIE) (HCC) If paracentesis yields a total volume of [...] 60 minutes for each unit 100 mL 08/26/2023 Active Hzavgiumod-MOVR-Hpaut ine 50-325-40 MG Oral Tablet (Fioricet) TAKE 2 TABLETS BY MOUTH EVERY 6 HOURS IF NEEDED FOR PAIN - MAX DAILY DOSE OF 8 TABS 0 07/14/2023 Active Doxycycline Monohydrate 100 MG Oral Tablet Take 1 Tablet by mouth in the morning and 1 Tablet before bedtime. 0 08/26/2023 Active rifAXIMin 550 MG Oral Tablet (Xifaxan)Indications: Cirrhosis of liver (HCC) Take 1 Tablet by mouth in the morning and 1 Tablet before bedtime. 180 Tablet 3 09/24/2023 Active Sertraline HCl 25 MG Oral Tablet (Zoloft)Indications:P ruritus Take 3 Tablets by mouth in the morning. 270 Tablet 1 09/29/2023 Active documented as of this encounter (statuses as of 09/29/2023) Active Problems Problem Noted Date Diagnosed Date [...] as of this encounter (statuses as of 09/29/2023) Resolved Problems Problem Noted Date Diagnosed Date [...] as of this encounter (statuses as of 09/29/2023) Immunizations Name Administration Dates Next Due H1N1 [...] on file documented as of this encounter Functional Status Functional Status Response Date of Assess ment Does this person have seriou s difficulty walking or climbing stairs? Yes-has done this two times in the past week 09/01/2023 documented as of this encounter Miscellaneous Notes * Telephone Encounter - Dianne Bloom RN - 09/29/2023 2:00 PM EST This has been fully explained to the patient, who indicates understanding. Pt states she has only had a 3lb wt gain in the last week. She has been 3 weeks without a paracentesis as she has not had enough fluid to remove (just went today.) She is asking if she needs any updated labs before her next appointment? * Telephone Encounter - Hilda Calvert DO - 09/29/2023 9:56 AM EST Please call patient and let her know I spoke with her PCP Dr. Stanley on Friday. WE discussed that Iwould like to start Sertraline 75 mg daily to help with her pruritus/itching. He stated this would be safe to take with her effexor since she is only on 37.5 mg daily and this medication is well tolerated with antidepressants and he is ok if I start her on this. He feels there is very low risk for serotonin syndrome since her effexor dose is so low. I have sent a script for sertraline to her pharmacy. This may take some time to improve the itching(up to 1 month) but should help her as she reports no improvement with benadryl or atarax. Hilda aClvert DO documented in this encounter Plan of Treatment Upcoming Encounters Date Type Department Care Team (Late st Contact Info) Description 10/02/2023 2:40 PM EST Office Visit Hepatology, [facility] [address] [address] Hilda Calvert DO [address] [place] [address] 11/27/2023 8:40 AM EDT Office Visit Hepatology [facility] [address] [place] [address] Hilda Calvert DO [address] [place] [address] Health Maintenance Due Date Last Done Comments Hepatitis B (1 of 3 - 3-dose series) 1980 Diabetic Eye Exam 1998 HPV/Co-Test 2010 Cervical Cancer Screening 09/08/2011 Pap Smear 09/08/2011 09/08/2008, 07/25, 01/13/2006, Additional history exists Albumin/Creatinine Ratio 11/25/2015 11/24/2014, 08/02/2013 Depression Screening 10/15/2017 10/15/2016 Diabetic Foot Exam 05/14/2018 05/14/2017, 0 11/15/2015, 12/23/2014 DTaP,Tdap,and Td Vaccines (2 - Td or Tdap) 05/18/2019 05/18/2009 B-12 08/19/2019 08/19/2018 Mammogram 2020 COVID-19 Vaccine ( season) 2023 07/02/2022, 01/23/2022, 07/24/2021, Additional history exists HbA1c 03/01/2024 09/01/2023, 12/23, 01/23/2022, Additional history exists TSH 09/01/2024 09/01/2023, 04/26, 12/19/2016, Additional history exists GFR 09/17/2024 09/17/2023, 08/25, 09/01/2023, Additional history exists Lipid Panel 09/01/2028 09/01/2023, 02/22, 11/24/2014, Additional history exists Pneumococcal Vaccine: Pediatrics (0 to 5 Years) [...] as of this encounter Visit Diagnoses Diagnosis Pruritus- Primary Unspecified pruritic disorder documented in this encounter Advance Directives Latest Code Status on File Code Status Date Activated Date Inactivated Comments Full Code 10/15/2007 5:16 PM 10/17/2007 5:01 PM Care Teams Substance Abuse Therapist Relationship Specialty Start Date End Date Lizeth, Endyjuni Mora DO [address] [address] [place] [address] PCP - General Family Medicine 07/13/18 documented as of this encounter
--- OUTSIDE RECORDS SUMMARY | 2023-10-06 12:41 | External Medical Summary | Summary of Care ---
Author Name Unknown Organization [facility] Address [address] [facility] [place] [address] Phone [phone] Care Team Providers Care Retail Client Manager Name Role Phone Endy Stanely DO Primary Care Provider [phone] [phone] Encounter Details Date Type Department Care Team (Late st Contact Info) Description 10/03/2023 Refill Gastroenterology, [facility] [address] [place] [address] Hilda Calvert DO [address] [place] [address] Allergies Active Allergy Reactions Criticality Noted Date Comments Codeine Hives 07/18/2012 Metformin Abdominal pain Low 03/30/2013 documented as of this encounter (statuses as of 10/03/2023) Medications Medication Sig Dispensed Refills Start Date End Date Status ONETOUCH ULTRASOFT LANCETS MISCIndications:Type II or unspecified type diabetes mellitus without mention of complication, uncontrolled use as directed [address] 3 Active TRETINOIN 0.05 % EX CREAIndications:Othe r acne [...] a day 2700 mL 5 8 Active linagliptin (TRADJENTA) 5 MG Tablet [...] hours as needed for Nausea. 0 Active Ipratropium-Albutero l 20-100 MCG/ACT Inhalation Aerosol Solution Inhale 1 Puff by mouth in the morning and 1 Puff at noon and 1 Puff in the evening and 1 Puff before bedtime. 0 Active Naloxone HCl 4 MG/0.1ML Nasal Liquid Administer 0.1 mL into nostril as needed. Administer 1 spray into 1 nostril for suspected opioid overdose. Seek immediate medical attention. [email or web address] 0 Active Prochlorperazine Maleate 5 MG Oral [...] before bedtime. 180 Tablet 1 3 Active Klor-Con 20 MEQ Oral Packet [...] times daily as needed 50 mL 2 3 Active Albumin Human 25 % Intravenous SolutionIndications: 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) [...] 60 minutes for each unit 100 mL 4 Active Cdmcqzunzg-UZOY-Khud eine 50-325-40 MG Oral Tablet (Fioricet) TAKE 2 TABLETS BY MOUTH EVERY 6 HOURS IF NEEDED FOR PAIN - MAX DAILY DOSE OF 8 TABS 0 3 Active Doxycycline Monohydrate 100 MG Oral Tablet Take 1 Tablet by mouth in the morning and 1 Tablet before bedtime. 0 4 Active rifAXIMin 550 MG Oral Tablet (Xifaxan)Indications :Cirrhosis of liver (HCC) Take 1 Tablet by mouth in the morning and 1 Tablet before bedtime. 180 Tablet 3 4 Active Midodrine HCl 10 MG Oral Tablet (Proamatine) Take 1 Tablet by mouth in the morning and 1 Tablet at noon and 1 Tablet before bedtime. 0 4 Active Levothyroxine Sodium 25 MCG Oral Tablet (Levoxyl) Take 1 Tablet by mouth in the morning. 0 4 Active Sertraline HCl 50 MG Oral Tablet (Zoloft) Take 1 Tablet by mouth in the morning. 90 Tablet 0 4 Active Sertraline HCl 25 MG Oral Tablet (Zoloft) Take 1 Tablet by mouth in the morning. Take with 50 mg dose to = 75 mg daily.. 90 Tablet 1 4 Active Sertraline HCl 25 MG Oral Tablet (Zoloft)Indications: Pruritus Take 3 Tablets by mouth in the morning. 270 Tablet 1 4 10/03/19 24 Discontinu ed(Patient preference /discontin uation) documented as of this encounter (statuses as of 10/03/2023) Active Problems Problem Noted Date Diagnosed Date [...] as of this encounter (statuses as of 10/03/2023) Resolved Problems Problem Noted Date Diagnosed Date [...] as of this encounter (statuses as of 10/03/2023) Immunizations Name Administration Dates Next Due H1N1 [...] encounter Miscellaneous Notes * Telephone Encounter - Hilda Calvert DO - 10/03/2023 10:26 AM EST Signed Prescriptions: Disp Refills Sertraline HCl 50 MG Oral Tablet (Zoloft) 90 Tab*0 Sig: Take 1 Tablet by mouth in the morning.Authorizing Provider: HILDA CALVERT Sertraline HCl 25 MG Oral Tablet (Zoloft) 90 Tab*1 Sig: Take 1 Tablet by mouth in the morning. Take with 50 mg dose to = 75 mg daily..Authorizing Provider: HILDA CALVERT * Telephone Encounter - Dianne Bloom RN - 10/03/2023 9:54 AM EST Pt calling to check on the PA for Sertraline. Per patient, she spoke with the nursing staff yesterday and was under the impression that this was in process. I clarified that there is a PA in process of Xifaxan only. Pt states she spoke with her pharmacist that the Sertraline is flagging for three 25 mg tabs daily and that her insurance would cover 50 +25 combination. I advised her that it sounds like there is a quantity limit on the 25 mg. Pended separate dosing. documented in this encounter Plan of Treatment Upcoming Encounters Date Type Department Care Team (Late st Contact Info) Description 11/27/2023 8:40 AM EDT Office Visit Hepatology, [facility] [address] [place] [address] Hilda Calvert, [address] [place] [address] Health Maintenance Due Date Last Done Comments [...] 5:16 PM 10/17/2007 5:01 PM Care Teams Retail Client Manager Relationship Specialty Start Date End Date Endy Stanley DO [address] [facility] [address] [facility] [address] [place] [address] PCP - General Family Medicine 07/13/18 documented as of this encounter
--- OUTSIDE RECORDS SUMMARY | 2023-10-06 12:41 | External Medical Summary | Summary of Care ---
Author Name Unknown Organization [facility] Address [address] [facility] [place] [address] Phone [phone] Care Team Providers Care Stockkeeper Name Role Phone Endy Stanley DO Primary Care Provider +1 [phone] Reason for Visit * Reason Comments Follow Up Follow up for liver cirrhosis Encounter Details Date Type Department Care Team (Late st Contact Info) Description 10/02/2023 2:40 PM EST Office Visit Hepatology, [facility] [address] [place] [address] Hilda Calvert DO [address] [place] [address] Other cirrhosis of liver (HCC)* Allergies Active Allergy Reactions Criticality Noted Date Comments Codeine Hives 07/18/2012 Metformin Abdominal pain Low 03/30/2013 documented as of this encounter (statuses as of 10/02/2023) Medications Medication Sig Dispensed Refills Start Date End Date Status ONETOUCH ULTRASOFT LANCETS MISCIndications:Type II or unspecified type diabetes mellitus without mention of complication, uncontrolled use as directed 1 [address] 04/05/2013 Active TRETINOIN 0.05 % EX CREAIndications:Other acne APPLY [...] suspected opioid overdose. Seek immediate medical attention. 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 270 Tablet 1 09/29/2023 Active Midodrine HCl 10 MG Oral Tablet (Proamatine) Take 1 Tablet by mouth in the morning and 1 Tablet at noon and 1 Tablet before bedtime. 0 09/09/2023 Active Levothyroxine Sodium 25 MCG Oral Tablet (Levoxyl) Take 1 Tablet by mouth in the morning. 0 09/09/2023 Active documented as of this encounter (statuses as of 10/02/2023) Active Problems Problem Noted Date Diagnosed Date [...] as of this encounter (statuses as of 10/02/2023) Resolved Problems Problem Noted Date Diagnosed Date [...] of cervix (uteri) 04/24/2004 05/14/2017 Overview: LG /, Leep 12/26 and 07/30 ICD-10 update of [...] as of this encounter (statuses as of 10/02/2023) Immunizations Name Administration Dates Next Due H1N1 [...] Sign Reading Time Taken Comments Blood Pressure 128/72 10/02/2023 2:26 PM EST Pulse 79 10/02/2023 2:26 PM EST Temperature 36.6 C (97.9 F) 10/02/2023 2:26 PM ES T Respiratory Rate - - Oxygen Saturation 99% 10/02/2023 2:26 PM EST Inhaled Oxygen Concentration - - Weight 88.5 kg (195 lb) 10/02/2023 2:26 PM EST Height 162 cm (5' 3.78") 10/02/2023 2:26 PM EST Body Mass Index 33.7 10/02/2023 2:26 PM EST documented in this encounter Functional Status Functional Status Response Date of Assess ment Does this person have seriou s difficulty walking or climbing stairs? Yes-has done this two times in the past week 09/01/2023 documented as of this encounter Progress Notes * Hilda Calvert, DO - 10/02/2023 2:47 PM EST Hepatology Clinic Note Date of appointment: 10/02/2023 Referred by: History of Present Illness: Niesha [...] DM2. She was just discharged today from [facility] in March. 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 She has been admitted multiple times as outlined below mainly for encephalopathy. She saw Dr. Evans from hematology here on 04/17 for the portal and splenic veinthrombosis. He had recommended Lovenox once daily. Admit 03/15/-03/17 for hyperammonemia + encephalopathy. Started on xifaxan. [...] Paracentesis of 2.2 L and discharged to [facility] Admitted 02/14 - 02/17/2023 with altered mental status suspected due to hepatic encephalopathy with additional baclofen use and hyponatremia. Baclofen discontinued, mental state improved. Return to [facility] and was discharged home 03/01/2023 Admitted 03/04/2023 - 03/07/2023 for upper abdominal pain, back pain, poor p.o. intake and significant ascites. Admitted multiple times since March for Hepatic encephalopathy Admitted 05/07-05/14 for hepatic encephalopathy. Presented to [facility] for paracentesis and was found to be [...] She states she was then sent to [place] and underwent a liver biopsy and was told the sample wasn't enough to perform a reading. She states she then went to [place] and had a liver biopsy there and they told her on another liver biopsy she had done that she did indeed have liver cirrhosis. She states she has never drank alcohol before and was told this was from GILLESPIE. She then saw Dr. Cummings in 2017. She has not been admitted to the hospital in the past month!! No episodes of HE in the past month. On bumex 2 mg BID and aldactone 100 mg BID. She saw IR in [place] but given her multiple recurrent admissions for HE they felt she was a poor TIPS candidate and a [place] shunt was not a good idea andrecommended increasing paracentesis from once to twice weekly. She was getting a paracentesis twiceweekly for quite some time but she is now not needing a paracentesis for the past 2 weeks. Has not had enough fluid. LE swelling significantly improved. Evaluated by PT this week and was told that she doesn't need physical therapy as she passed all the tests. Initially saw Dr. Evans from hematology for her portal vein and splenic vein thrombus and he recommended Lovenox once daily. he ended up discontinuing this on 07/29 given her low platelets, ongoing need for paracentesis 1-2 times weekly, bleeding. Saw pain management 09/29. Going to work with them and her PCP to wean off narcotics. Decompensations: Varices: yes Ascites: yes- requiring paracentesis frequently twice weekly SBP: no HRS: no HE: yes HCC: no Screening: EGD: states last one 4 months ago [facility] with small EV Colonoscopy. none Liver imagin03/2023- CT abdomen from [facility]. No liver lesions. Review of systems: Positives [...] 8 Past Surgical History: Procedure Laterality Date CERVICAL LAMINOPLASTY W/DECOMPRESS 12/2018 cage -[facility] DELIVERY 08/25/2005 w/ BTL COLPSCPY CERVIX W/LOOP ELECT 07/25/2006 Dr Ron [facility] no dysplasia DENTAL SURGERY PROCEDURE NEC wisdom teeth EGD, FLEXIBLE, DIAGNOSTIC N/A 06/18/2016 ESOPHAGOGASTRODUODENOSCOPY (EGD), FLEXIBLE, TRANSORAL, DIAGNOSTIC performed by Lavelle Cervantes DO at ENDOSCOPY [facility] EGD, W/ENDOSCOPIC US N/A 06/18/2016 ESOPHAGOGASTRODUODENOSCOPY (EGD), FLEXIBLE, TRANSORAL, ENDOSCOPIC ULTRASOUND performed by Lavelle Cervantes DO at ENDOSCOPY [facility] ENDOMETRIAL CRYOABLATION US GUIDED 07/25/2006 Dr Ron GALLBLADDER/CHOLECYSTO W/CONT 10/23/2000 patricia lap GASTRIC BAND PLACEMENT/PORT, LAPAROSCOPIC 07/25/2015 REDUCTION OF BREAST 08/25/1994 REMOVAL OF THYROID GLAND 10/15/2007 THYROIDECTOMY COMPLETE performed by YANET ERAZO at OR [facility] REMOVAL OF TONSILS, UNDER AGE 12 REMOVE CERVIX CONE W/LOOP ELECTRODE 12/01/2003 Dr Collazo, ecc LG, portio HG Family History Problem Relation Age of Onset Cancer Mother squamous, basal, mycosis fungoides skin cancer Cirrhosis Father Alcohol and Other Disorders Associated Father GILLESPIE/LISET Asthma Sister sports Induced No Known Problems Brother Diabetes Grandfather (Maternal) Diabetes Grandfather (Paternal) Cancer Grandfather (Paternal) type unknown Eye Problems Son coloboma's blindness Mental Disorder Son ADHD, oppositional, ? bipolar Arthritis Aunt (Unspecified) maternal aunt Ear Problems Aunt (Unspecified) childhood fever and infection induced, deaf and mute Eye Problems Aunt (Unspecified) same as above Current Outpatient Medications Medication Sig Dispense Refill ONETOUCH ULTRASOFT LANCETS [facility] use as directed 1 Box 11 TRETINOIN 0.05 % EX [...] cut, crush, or chew.. 30 Cap 5 LINZESS 290 MCG Capsule [...] suspected opioid overdose. Seek immediate medical attention. [email or web address] Prochlorperazine Maleate 5 MG Oral Tablet (Compazine) [...] mg under the skin in the morning. Spironolactone 100 MG Oral Tablet (Aldactone) Take 1 Tablet by mouth in the morning and 1 Tablet before bedtime. 180 Tablet 1 Omeprazole 40 MG Oral Capsule Delayed Release (PriLOSEC) Take 1 Capsule by mouth in the morning. Bumetanide 1 MG Oral Tablet Take 2 Tablets by mouth in the morning and 2 Tablets before bedtime. 180 Tablet 1 Klor-Con 20 MEQ Oral Packet Take 20 [...] times daily as needed 50 mL 2 Albumin Human 25 % Intravenous Solution If [...] 60 minutes for each unit 100 mL 99 Bgynudkmej-VNRJ-Vmsasgsl 50-325-40 MG Oral Tablet (Fioricet) TAKE 2 TABLETS BY MOUTH EVERY 6 HOURS IF NEEDED FOR PAIN - MAX DAILY DOSE OF 8 TABS Doxycycline Monohydrate 100 MG Oral Tablet Take 1 Tablet by mouth in the morning and 1 Tablet before bedtime. rifAXIMin 550 MG Oral Tablet (Xifaxan) Take 1 Tablet by mouth in the morning and 1 Tablet before bedtime. 180 Tablet 3 Sertraline HCl 25 MG Oral Tablet (Zoloft) Take 3 Tablets by mouth in the morning. 270 Tablet 1 Midodrine HCl 10 MG Oral Tablet (Proamatine) Take 1 Tablet by mouth in the morning and 1 Tablet at noon and 1 Tablet before bedtime. Levothyroxine Sodium 25 MCG Oral Tablet (Levoxyl) Take 1 Tablet by mouth in the morning. No current facility-administered medications for this visit. Review of patient's allergies indicates: Allergen Reactions Codeine Hives Metformin Abdominal pain Physical Exam: vitals: BP 128/72 (BP Site: Left Arm, BP Position: Sitting, BP Cuff Size: Regular) | Pulse 79 | Temp 36.6 C (97.9 F) (Tympanic) | Ht 1.62 m (5' 3.78") | Wt 88.5 kg (195 lb) | SpO2 99% | BMI 33.70kg/m | BSA 2 m GENERAL: Chronically ill appearing. Slow to talk but AAOx3. No asterixis on exam. Notable sarcopenia with some temporal muscle wasting. SKIN: No rashes, ulcers, jaundice. Multiple spider angiomas over chest wall. HEENT: Normocephalic, sclera anicteric NECK: Supple LUNGS: Clear to auscultation bilaterally, no respiratory distress or accessory muscles used. HEART: Regular rate & rhythm, no murmurs ABDOMEN: Small ascites, non-tender, mildly distended, no fluid wave appreciated EXTREMITIES: No palmar erythema, 1+ lower extremity edema. NEURO: No asterixis present on exam. Recent Labs: Reviewed MELD 3.0: 14 at 09/01/2023 2:13 PM Calculated from: Serum Creatinine: 0.8 mg/dL (Using min of 1 mg/dL) at 09/01/2023 2:13 PM Serum Sodium: 138 mmol/L (Using max of 137 mmol/L) at 09/01/2023 2:13 PM Total Bilirubin: 1.6 mg/dL at 09/01/2023 2:13 PM Serum Albumin: 3.8 g/dL (Using max of 3.5 g/dL) at 09/01/2023 2:13 PM INR(ratio): 1.7 at 09/01/2023 2:13 PM Age at listing (hypothetical): 42 years Sex: Female at 09/01/2023 2:13 PM Recent Imaging Studies: Reviewed Liver doppler US 05/09/2023 [facility]: IMPRESSION: 1. No flow was shown within [...] liver morphology and ascites. CT abd/pelvis 03/26/2023 [facility]: IMPRESSION: 1. The liver is cirrhotic in [...] reports she had an EGD in November 2022 through [facility] with small/trace varices. Denies any history of banding. We will need a record of this. If small she needs repeat in 1 year. -Fluid status: based on today's physical exam, the pt. Has 1+ LE edema and minimal ascites. She is on bumex 2 mg BID and aldactone 100 mg BID. I strongly encouraged her to follow a low sodium diet nomore than 2 grams/daily. She was seen by IR and felt to be a very poor candidate for TIPS given recurrent admissions for HE. She was getting a paracentesis twice weekly for quite some time but she isnow not needing a paracentesis for the past 2 weeks. Has not had enough fluid. LE swelling significantly improved. -Hepatic encephalopathy: based on today's examination, the pt. does not have asterixis. She has notbeen admitted to the hospital in the past month!! No episodes of HE in the past month. This is the longest she has gone without a hospital admission! Continue lactulose and rifaximin and titrate for 3-4 soft bowel movements/daily. Can use Zinc supplement 220 mg daily. High protein snack before bedtime. She is on oxycodone at home for chronic pain but this can worsen/preciptiate HE and I highly encourage her to wean off this. She is working with pain management and her PCP currently to wean off this. Also encourage to wean off Xanax given recurrent admissions for HE. -Renal function: pt.'s most recent SCr was normal. We will get another BMP and monitor her renal function periodically. -HCC screening. Pt.'s last liver imaging study was done 03/2023. Pt will need HCC screening every 6 months with imaging in conjunction with an AFP. Due now which was ordered today. -Avoid liver toxins including over the counter herbal supplements. May take Acetaminophen up to 2 grams a day. Avoid NSAIDS due to increased risk of GI bleeding and fluid retention. Avoid all alcohol. Patient encouraged to avoid benzodiazepines and opiate pain medications due to risk of precipitating HE. -Transplant evaluation: Started transplant eval. MELD is only 14 but she is very decompensated getting admitted at least 1-3x monthly with HE and ascites. She was evaluated by the committee and they wanted her to be weaned off all narcotics (she is seeing pain management to try and start the weaning process seen by them 2/5 and working with her PCP), start with physical therapy, and see her neurologist for clearance. She will also need cardiac testing but they want her to first undergo PT and work with pain management to come off the narcotics. She stated home PT came to her house this week to evaluate her and they cleared her and said that she does NOT need physical therapy. Will need to get these records. She states she is going to see her neurologist soon as well too. [facility] to be evaluated for a living donor option. -Debility/sarcopenia: boost/ensure BID -Initially saw Dr. Evans from hematology for her portal vein and splenic vein thrombus and he recommended Lovenox once daily. he ended up discontinuing this on 07/29 given her low platelets, ongoing need for paracentesis 1-2 times weekly, bleeding. She states she needs to see him again this month and will schedule this appointment. -Follow up in 2 months Hilda Calvert [...] documented in this encounter Nursing Notes * Al Gustafson CMA - 10/02/2023 2:27 PM EST Chief Complaint Patient presents with Follow Up Follow up for liver cirrhosis Niesha Gutiérrez is a 42 year old female who presents today for a follow up for cirrhosis. She states that she has chronic abdominal pain. documented in this encounter Plan of Treatment Upcoming Encounters Date Type Department Care Team (Late st Contact Info) Description 11/27/2023 8:40 AM EDT Office Visit Hepatology, [facility] [address] [address] [address] Hilda Calvert DO [address] [place] [address] Scheduled Orders Name Type Priority Associated Diagnoses Orde r Schedule US ABDOMEN LIMITED Medical Imaging Routine Other cirrhosis of liver (HCC) Expected: 10/02/2023, Expires: 10/30/2024 Health Maintenance Due Date Last Done Comments [...] Diagnosis Other cirrhosis of liver (HCC)- Primary documented in this encounter Advance Directives Latest Code Status on File Code Status Date Activated Date Inactivated Comments Full Code 10/15/2007 5:16 PM 10/17/2007 5:01 PM Care Teams Stockkeeper Relationship Specialty Start Date End Date Endy Stanley DO [address] [address] [place] [address] PCP - General Family Medicine 07/13/18 documented as of this encounter
--- OUTSIDE RECORDS SUMMARY | 2023-10-06 12:41 | External Medical Summary | Summary of Care ---
Author Name Unknown Organization [facility] Address [address] [facility] [place] [address] Phone [phone] Care Team Providers Care Supply Chain Tech Name Role Phone Lizeth Endy Morgan SUMNER Primary Care Provider [phone] [phone] Reason for Visit * Reason Onset Date Comments Pre Cert/Prior Auth 09/30/2023 Sertraline Encounter Details Date Type Department Care Team (Late st Contact Info) Description 09/30/2023 Telephone Gastroenterology, [facility] [address] [place] [address] Hilda Calvert DO [address] [place] [address] Pre Cert/Prior Auth (Sertraline) Allergies Active Allergy Reactions Criticality Noted Date Comments Codeine Hives 07/18/2012 Metformin Abdominal pain Low 03/30/2013 documented as of this encounter (statuses as of 09/30/2023) Medications Medication Sig Dispensed Refills Start Date [...] suspected opioid overdose. Seek immediate medical attention. [email or web address] Active Prochlorperazine Maleate 5 MG Oral [...] for each unit 100 mL 08/26/2023 Active Mnmkzmgpjw-PEWH-Hhsqd ine 50-325-40 MG Oral Tablet (Fioricet) TAKE [...] as of this encounter (statuses as of 09/30/2023) Active Problems Problem Noted Date Diagnosed Date [...] as of this encounter (statuses as of 09/30/2023) Resolved Problems Problem Noted Date Diagnosed Date [...] as of this encounter (statuses as of 09/30/2023) Immunizations Name Administration Dates Next Due H1N1 [...] encounter Miscellaneous Notes * Telephone Encounter - Emily Morse RN - 09/30/2023 12:[address] Calvert, disregard message, sent it to you by accident * Telephone Encounter - Emily Morse RN - 09/30/2023 12:12 PM EST Gastro Pre-Cert Request Specialty Medication: No. Medication/Disease State Information: Medication: Sertraline 75 mg Diagnosis (including ICD-10): pruritus, L29.9 Site of care: Self-administered - route pre-cert request to [id number] Office Information: Prescriber: Dr Hilda Calvert Needs PA for 3 tablets a day. Please assist. Has tried Benadryl cream, Hydrocortisone cream, Atarax, documented in this encounter Plan of Treatment Upcoming Encounters Date Type Department Care Team (Late st Contact Info) Description 10/02/2023 2:40 PM EST Office Visit Hepatology [facility] [address] [address] Hilda Calvert DO [address] [place] [address] [address] 11/27/2023 8:40 AM EDT Office Visit Hepatology [facility] [address] [address] Hilda Calvert DO [address] [address] [address] Health Maintenance Due Date Last Done Comments [...] 5:16 PM 10/17/2007 5:01 PM Care Teams Supply Chain Tech Relationship Specialty Start Date End Date Endy Stanley DO [address] [address] [place] [address] PCP - General Family Medicine 07/13/18 documented as of this encounter
--- OUTSIDE RECORDS SUMMARY | 2023-10-06 12:41 | External Medical Summary | Summary of Care ---
Author Name Unknown Organization [facility] Address [address] [facility] [place] [address] Phone [phone] Care Team Providers Care Safety Manager Name Role Phone Endy Stanley DO Primary Care Provider [phone] [phone] Encounter Details Date Type Department Care Team (Late st Contact Info) Description 09/29/2023 Telephone Hepatology, [facility] [address] [place] [address] Hilda Calvert DO [address] [place] [address] Allergies Active Allergy Reactions Criticality Noted Date [...] suspected opioid overdose. Seek immediate medical attention. [email or web address]?[email or web address] Active Prochlorperazine Maleate 5 MG Oral [...] for each unit 100 mL 08/26/2023 Active Eklodjxlvy-ABIT-Zsgiq ine 50-325-40 MG Oral Tablet (Fioricet) TAKE [...] no improvement with benadryl or atarax. Hilda Calvert DO documented in this encounter Plan of Treatment Upcoming Encounters Date Type Department Care Team (Late st Contact Info) Description 10/02/2023 2:40 PM EST Office Visit Hepatology, [facility] [address] [address] Hilda Calvert DO [address] [address] [address] 11/27/2023 8:40 AM EDT Office Visit Hepatology, [facility] [address] [address] Hilda Calvert DO [address] [place] [address] [address] Health Maintenance Due Date Last Done Comments [...] 5:16 PM 10/17/2007 5:01 PM Care Teams Safety Manager Relationship Specialty Start Date End Date Endy Stanley DO [address] [place] [address] PCP - General Family Medicine 07/13/18 documented as of this encounter
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
--- OUTSIDE RECORDS SUMMARY | 2023-10-06 12:41 | External Medical Summary | Summary of Care ---
Author Name Unknown Organization [facility] Address [address] [facility] [place] [address] Phone [phone] Care Team Providers Care Bundle Breaker Name Role Phone Endy Stanley DO Primary Care Provider [phone] Encounter Details Date Type Department Care Team (Late st Contact Info) Description 09/29/2023 Telephone Hepatology, [facility] [address] [place] [address] Hilda Calvert DO [address] [place] [address] Allergies Active Allergy Reactions Criticality Noted Date [...] suspected opioid overdose. Seek immediate medical attention. [email or web address]?v=[email or web address] 0 Active Prochlorperazine Maleate 5 MG Oral [...] for each unit 100 mL 08/26/2023 Active Hhxwcwmyrw-JSBI-Licxd ine 50-325-40 MG Oral Tablet (Fioricet) TAKE [...] Telephone Encounter - Emily Morse RN - 09/29/2023 2:43 PM EST Images from the original note were not included. Hilda Calvert, DO [facility] Nurse Pool/Class21 minutes ago (2:20 PM) No updated labs needed Notified spouse. He will tell patient, she is with PT/OT right now. * Telephone Encounter - Dianne Bloom RN [...] 10/02/2023 2:40 PM EST Office Visit Hepatology, [facility] [address] [place] [address] Hilda Calvert DO [address] [place] [address] 11/27/2023 8:40 AM EDT Office Visit Hepatology, [facility] [address] [place] [address] Hilda Calvert DO [address] [place] [address] Health Maintenance Due Date Last Done Comments [...] 5:16 PM 10/17/2007 5:01 PM Care Teams Bundle Breaker Relationship Specialty Start Date End Date Endy Stanley DO [address] [place] [address] PCP - General Family Medicine 07/13/18 documented as of this encounter
--- OUTSIDE RECORDS SUMMARY | 2023-10-06 12:42 | External Medical Summary | Summary of Care ---
Author Name Unknown Organization [facility] Address [address] [place] [address] Phone [phone] Care Team Providers Care Housekeeping Aid Name Role Phone Lizeth Endy Mora DO Primary Care Provider [phone] Reason for Visit * Reason Onset Date Comments Update 09/24/2023 Encounter Details Date Type Department Care Team (Late st Contact Info) Description 09/24/2023 Telephone Transplant Clinic, [place] [address] [place] [address] Flo Mathis MD [address] [place] [address] Update Allergies Active Allergy Reactions Criticality Noted Date Comments Codeine Hives 07/18/2012 Metformin Abdominal pain Low 03/30/2013 documented as of this encounter (statuses as of 09/24/2023) Medications Medication Sig Dispensed Refills Start Date [...] suspected opioid overdose. Seek immediate medical attention. [email or web address]?v=[email or web address] 0 Active Prochlorperazine Maleate 5 MG Oral [...] for each unit 100 mL 08/26/2023 Active Etcdbxsfdb-KCEG-Xkted ine 50-325-40 MG Oral Tablet (Fioricet) TAKE [...] before bedtime. 180 Tablet 3 09/24/2023 Active documented as of this encounter (statuses as of 09/24/2023) Active Problems Problem Noted Date Diagnosed Date [...] as of this encounter (statuses as of 09/24/2023) Resolved Problems Problem Noted Date Diagnosed Date [...] as of this encounter (statuses as of 09/24/2023) Immunizations Name Administration Dates Next Due H1N1 [...] encounter Miscellaneous Notes * Telephone Encounter - Tayla CHIVO Andrade - 09/24/2023 2:47 PM EST Incoming call from patient to check what she needs to complete for her liver evaluation. Reviewed committee note with patient and confirmed we would like her to start with physical therapy, pain management, and see her neurologist for clearance. Niesha confirmed she will contact her home health center to start with PT again. Niesha also confirmed she will reach out to the Neurologist to schedule a consult with the physician, as she normally sees the PA for check-ups. Niesha shared that she is scheduled to see Pain Management on 09/29/2023. I informed Niesha she will also need some Cardiac testing, however, we would like her to start withthe above mentioned clearances first before we move on to cardiac. Niesha confirmed understanding. I informed Niesha that Juliana will check in on her in about a month to see how she is doing. Niesha confirmed understanding and only requested that we mail her business cards for the transplant team. I will mail business cards to patient. documented in this encounter Plan of Treatment Upcoming Encounters Date Type Department Care Team (Late st Contact Info) Description 09/29/2023 10:00 AM EST Office Visit Interventional Pain Center, [facility] [address] [place] [address] Iman Diaz PA-C [address] [place] [address] 10/02/2023 2:40 PM EST Office Visit Hepatology, [facility] [address] [place] [address] Hilda Calvert, [address] [place] [address] 11/27/2023 8:40 AM EDT Office Visit Hepatology, [facility] [address] [place] [address] Hilda Calvert, [address] [place] [address] Health Maintenance Due Date Last Done Comments [...] 5:16 PM 10/17/2007 5:01 PM Care Teams Housekeeping Aid Relationship Specialty Start Date End Date Endy Stanley DO [address] [facility] [address] [address] [place] [address] PCP - General Family Medicine 07/13/18 documented as of this encounter
--- OUTSIDE RECORDS SUMMARY | 2023-10-06 12:42 | External Medical Summary | Summary of Care ---
Author Name Unknown Organization [facility] Address [address] [facility] [place] [address] Phone [phone] Care Team Providers Care Senior Drupal Developer Name Role Phone Endy Stanley DO Primary Care Provider [phone] Encounter Details Date Type Department Care Team (Late st Contact Info) Description 09/22/2023 Result Scan Unspecified Department Hilda Calvert DO [address] [place] [address] <No scans attached> Allergies Active Allergy Reactions Criticality Noted Date Comments Codeine Hives 07/18/2012 Metformin Abdominal pain Low 03/30/2013 documented as of this encounter (statuses as of 09/23/2023) Medications Medication Sig Dispensed Refills Start Date [...] overdose. Seek immediate medical attention. [email or web address]?v=[email or web address] 0 Active Prochlorperazine Maleate 5 MG Oral [...] Active Albumin Human 25 % Intravenous SolutionIndications:Mimi iver cirrhosis secondary to nonalcoholic steatohepatitis (GILLESPIE) [...] for each unit 100 mL 08/26/2023 Active Cyvskahnew-NWLA-Wdpix ine 50-325-40 MG Oral Tablet (Fioricet) TAKE 2 TABLETS BY MOUTH EVERY 6 HOURS IF NEEDED FOR PAIN - MAX DAILY DOSE OF 8 TABS 0 07/14/2023 Active Doxycycline Monohydrate 100 MG Oral Tablet Take 1 Tablet by mouth in the morning and 1 Tablet before bedtime. 0 08/26/2023 Active documented as of this encounter (statuses as of 09/23/2023) Active Problems Problem Noted Date Diagnosed Date [...] as of this encounter (statuses as of 09/23/2023) Resolved Problems Problem Noted Date Diagnosed Date [...] as of this encounter (statuses as of 09/23/2023) Immunizations Name Administration Dates Next Due H1N1 [...] week 09/01/2023 documented as of this encounter Plan of Treatment Upcoming Encounters Date Type Department Care Team (Late st Contact Info) Description 09/29/2023 10:00 AM EST Office Visit Interventional Pain Center, [facility] [address] [place] [address] Iman Ying PA-C [address] [place] [address] 10/02/2023 2:40 PM EST Office Visit Hepatology, [facility] [address] [place] [address] Hilda Calvert DO [address] [place] [address] 11/27/2023 8:40 AM EDT Office Visit Hepatology, [facility] [address] [place] [address] Enrike Hilda Loyola, DO [address] [place] [address] Health Maintenance Due Date Last Done Comments [...] B-12 08/19/2019 08/19/2018 Mammogram 2020 COVID-19 Vaccine (2022- season) 2023 07/02/2022, 01/23/2022, [...] Date/Time Associated Diagnosis Comments RADIOLOGY SCANNED RESULT 09/22/2023 documented in this encounter Results * RADIOLOGY SCANNED RESULT (09/22/2023) 09/22/2023 Hilda Calvert DO DI[facility]NOST[facility] RAD [facility]Y [facility] documented in this encounter Advance Directives Latest Code Status on File Code Status Date Activated Date Inactivated Comments Full Code 10/15/2007 5:16 PM 10/17/2007 5:01 PM Care Teams Senior Drupal Developer Relationship Specialty Start Date End Date Endy Stanley DO [address] [address] PCP - General Family Medicine 07/13/18 documented as of this encounter
--- OUTSIDE RECORDS SUMMARY | 2023-10-06 12:42 | External Medical Summary | Summary of Care ---
Author Name Unknown Organization [facility] Address [address] [facility] [place] [address] Phone [phone] Care Team Providers Care Automatic Embroidery Machine Tender Name Role Phone Endy Stanley DO Primary Care Provider +1 [phone] Encounter Details Date Type Department Care Team (Late st Contact Info) Description 09/26/2023 Telephone Hepatology, [facility] [address] [place] [address] Hilda Calvert DO [address] [place] [address] Allergies Active Allergy Reactions Criticality Noted Date Comments Codeine Hives 07/18/2012 Metformin Abdominal pain Low 03/30/2013 documented as of this encounter (statuses as of 09/26/2023) Medications Medication Sig Dispensed Refills Start Date [...] suspected opioid overdose. Seek immediate medical attention. [email or web address]://[email or web address] [email or web address]/watch?v=[email or web address] 0 Active Prochlorperazine Maleate 5 MG Oral [...] for each unit 100 mL 08/26/2023 Active Oktzdsmchb-RPSH-Rgkml ine 50-325-40 MG Oral Tablet (Fioricet) TAKE [...] as of this encounter (statuses as of 09/26/2023) Active Problems Problem Noted Date Diagnosed Date [...] as of this encounter (statuses as of 09/26/2023) Resolved Problems Problem Noted Date Diagnosed Date [...] as of this encounter (statuses as of 09/26/2023) Immunizations Name Administration Dates Next Due H1N1 [...] AM EST Office Visit Interventional Pain Center, [facility] [address] [place] [address] [address] Iman Diaz PA-C [address] [place] [address] 10/02/2023 2:40 PM EST Office Visit Hepatology, [facility] [address] [address] [address] Hilda Calvert, DO [address] [place] [address] 11/27/2023 8:40 AM EDT Office Visit Hepatology, [facility] [address] [place] [address] Hilda Calvert, [address] [place] [address] Health Maintenance Due Date Last Done Comments [...] 5:16 PM 10/17/2007 5:01 PM Care Teams Automatic Embroidery Machine Tender Relationship Specialty Start Date End Date Endy Stanley DO [address] [address] [place] [address] PCP - General Family Medicine 07/13/18 documented as of this encounter
--- OUTSIDE RECORDS SUMMARY | 2023-10-06 12:42 | External Medical Summary | Summary of Care ---
Author Name Unknown Organization [facility] Address [address] [facility] [place] [address] Phone [phone] Care Team Providers Care Insulation Cupola Operator Name Role Phone Endy Stanley DO Primary Care Provider [phone] Reason for Visit * Reason Onset Date Comments Medication Refill 09/24/2023 Advice 09/24/2023 Encounter Details Date Type Department Care Team (Late st Contact Info) Description 09/24/2023 Refill Gastroenterology, [facility] [address] [place] [address] Hilda Calvert DO [address] [place] [address] Cirrhosis of liver (HCC)* Allergies Active Allergy Reactions [...] hours as needed for Nausea. 0 Active Ipratropium-Albuter ol 20-100 MCG/ACT Inhalation Aerosol Solution Inhale 1 Puff by mouth in the morning and 1 Puff at noon and 1 Puff in the evening and 1 Puff before bedtime. 0 Active Naloxone HCl 4 MG/0.1ML Nasal Liquid Administer 0.1 mL into nostril as needed. Administer 1 spray into 1 nostril for suspected opioid overdose. Seek immediate medical attention. https://www.[email or web address].com/[email or web address]?v= [email or web address] 0 Active Prochlorperazine Maleate 5 MG Oral [...] 3 Active Albumin Human 25 % Intravenous SolutionIndications [...] for each unit 100 mL 4 Active Ijuvywevrh-BXIG-Rfi feine 50-325-40 MG Oral Tablet (Fioricet) TAKE 2 TABLETS BY MOUTH EVERY 6 HOURS IF NEEDED FOR PAIN - MAX DAILY DOSE OF 8 TABS 0 3 Active Doxycycline Monohydrate 100 MG Oral Tablet Take 1 Tablet by mouth in the morning and 1 Tablet before bedtime. 0 4 Active rifAXIMin 550 MG Oral Tablet (Xifaxan)Indication s:Cirrhosis of liver (HCC) Take 1 Tablet by mouth in the morning and 1 Tablet before bedtime. 180 Tablet 3 4 Active XIFAXAN 550 MG Tablet Take 1 Tab by mouth 2 times a day. 60 Tab 2 8 024 Discontinued documented as of this encounter (statuses [...] Telephone Encounter - Hilda Calvert DO - 09/24/2023 9:36 AM EST Signed Prescriptions: Disp Refills rifAXIMin 550 MG Oral Tablet (Xifaxan) 180 Ta*3 Sig: Take 1 Tablet by mouth in the morning and 1 Tablet before bedtime. Authorizing Provider: HILDA CALVERT * Telephone Encounter - Niru Elkins RN - 09/24/2023 9:21 AM EST Pt c/o extreme itching for the past week. Explained that liver disease can cause this. Pt asking ifthere is any medication or what she can do to help with this. Has tried benadryl and hydrocortisonecream. Also asking for xifaxin to be refilled and sent to [facility] in [place]. documented in this encounter Plan of Treatment Upcoming Encounters Date Type Department Care Team (Late st Contact Info) Description 09/29/2023 10:00 AM EST Office Visit Interventional Pain Center, [facility] [address] [address] Iman Diaz PA-C [address] [place] [address] 10/02/2023 2:40 PM EST Office Visit Hepatology, [facility] [address] [address] [address] Hilda Calvert DO [address] [place] [address] [address] 11/27/2023 8:40 AM EDT Office Visit Hepatology, [facility] [address] [address] [address] Hilda Calvert DO [address] [place] [address] Health Maintenance Due Date Last Done Comments [...] encounter Visit Diagnoses Diagnosis Cirrhosis of liver (HCC)- Primary Cirrhosis of liver without mention of alcohol documented in this encounter Advance Directives Latest Code Status on File Code Status Date Activated Date Inactivated Comments Full Code 10/15/2007 5:16 PM 10/17/2007 5:01 PM Care Teams Insulation Cupola Operator Relationship Specialty Start Date End Date Endy Stanley DO 1 [facility] [address] [place] [address] PCP - General Family Medicine 07/13/18 documented as of this encounter
--- OUTSIDE RECORDS SUMMARY | 2023-10-06 12:42 | External Medical Summary | Summary of Care ---
Author Name Unknown Organization [facility] Address [address] [facility] [place] [address] Phone [phone] Care Team Providers Care Content Development Manager Name Role Phone Endy Stanley DO Primary Care Provider [phone] Reason for Visit * Reason Onset Date Comments Medication Refill 09/24/2023 Advice 09/24/2023 Encounter Details Date Type Department Care Team (Late st Contact Info) Description 09/24/2023 Refill Gastroenterology, [facility] [address] [place] [address] Hilda Calvert DO [address] [place] [address] Cirrhosis of liver (HCC)* Allergies Active Allergy [...] suspected opioid overdose. Seek immediate medical attention. https://www.[email or web address] [email or web address].com/watch?v= [email or web address] 0 Active Prochlorperazine Maleate 5 MG Oral [...] for each unit 100 mL 4 Active Mjilqyzgnf-EREU-Vlx feine 50-325-40 MG Oral Tablet (Fioricet) TAKE [...] xifaxin to be refilled and sent to [facility] in [place]. documented in this encounter Plan of Treatment Upcoming Encounters Date Type Department Care Team (Late st Contact Info) Description 09/29/2023 10:00 AM EST Office Visit Interventional Pain Center, [facility] [address] [address] Iman Ying PA-C [address] [place] [address] 10/02/2023 2:40 PM EST Office Visit Hepatology, [facility] [address] [address] Hilda Calvert DO [address] [place] [address] [address] 11/27/2023 8:40 AM EDT Office Visit Hepatology, [facility] [address] [address] Hilda Calvert DO [address] [place] [address] Health Maintenance Due Date Last Done Comments [...] 5:16 PM 10/17/2007 5:01 PM Care Teams Content Development Manager Relationship Specialty Start Date End Date Endy Stanley DO [address] [address] [place] [address] PCP - General Family Medicine 07/13/18 documented as of this encounter
--- OUTSIDE RECORDS SUMMARY | 2023-10-06 12:42 | External Medical Summary | Summary of Care ---
Author Name Unknown Organization [facility] Address [address] [facility] [place] [address] Phone [phone] Care Team Providers Care Glost Placer Name Role Phone Lizeth Endyjuni Mora Primary Care Provider [phone] [phone] Reason for Visit * Reason Onset Date Comments Advice 09/24/2023 Order Request 09/24/2023 Asking to increa se her hydroxyzine. Encounter Details Date Type Department Care Team (Late st Contact Info) Description 09/24/2023 Telephone Gastroenterology, [facility] [address] [place] [address] Hilda Calvert DO [address] [place] [address] Advice; Order Request (Asking to increase ... Allergies Active Allergy Reactions Criticality Noted Date [...] suspected opioid overdose. Seek immediate medical attention. https://www.Greenbox [email or web address]/watch?v=[email or web address] 0 Active Prochlorperazine Maleate 5 MG Oral [...] for each unit 100 mL 08/26/2023 Active Bulsnkctch-OCVJ-Lsevx ine 50-325-40 MG Oral Tablet (Fioricet) TAKE [...] Telephone Encounter - Shobha Wen LPN - 09/26/2023 2:41 PM EST Pt called, still having issues, pt stating that she is taking hydroxyzine three times a day currently. Pt states that nothing is working. Pt stating that the palms of her hands are swollen and read. Pt stating that she has been in and out of the hospital. Pt stating that she has tried everything- from the chapstick she gets when in thehospital- its medicated with mental. Pt also tried benadryl cream, hydrocortisone cream, and has tried alcohol and rubbing in on her hands- that helps a little but not much. Pt stating that she is " going crazy" . Pt asking to increase her atarax? She states she has no symptoms of the encephalopathy and knows ifshe developers any to stop and make you aware right away. Please advise. * Telephone Encounter - Niru Elkins RN - 09/24/2023 1:46 PM EST I am pretty sure pt says she tried hydroxyzine. Tried to call to confirm. No answer. Left message requesting call. * Telephone Encounter - Niru Elkins, RN - 09/24/2023 12:05 PM EST Pt c/o extreme itching for the past week. Explained that liver disease can cause this. Pt asking ifthere is any medication or what she can do to help with this. Has tried benadryl and hydrocortisonecream. Encouraged her to try rubbing lotion instead of scratching. Suggested she put the lotion in the refrigerator for a little while as the cool lotion may help more. Pt will try. Says "there has to be an oral medicine or something that I can take." documented in this encounter Plan of Treatment Upcoming Encounters Date Type Department Care Team (Late st Contact Info) Description 09/29/2023 10:00 AM EST Office Visit Interventional Pain Center, [facility] [address] [address] Iman Diaz PA-C [address] [address] [address] 10/02/2023 2:40 PM EST Office Visit Hepatology, [facility] [address] [place] [address] Hilda Calvert, DO [address] [place] [address] 11/27/2023 8:40 AM EDT Office Visit Hepatology, [facility] [address] [place] [address] Hilda Calvert, DO [address] [place] [address] Health Maintenance Due Date Last Done Comments [...] 5:16 PM 10/17/2007 5:01 PM Care Teams Glost Placer Relationship Specialty Start Date End Date Endy Stanley DO 1 [facility] [address] [facility] [place] [address] PCP - General Family Medicine 07/13/18 documented as of this encounter
--- OUTSIDE RECORDS SUMMARY | 2023-10-06 12:42 | External Medical Summary | Summary of Care ---
Author Name Unknown Organization [facility] Address [address] [facility] [place] [address] Phone [phone] Care Team Providers Care Barbering Teacher Name Role Phone Endy Stanley DO Primary Care Provider [phone] [phone] Encounter Details Date Type Department Care Team (Late st Contact Info) Description 09/23/2023 Orders Only Gastroenterology, [facility] [address] [place] [address] Hilda Calvert DO [address] [place] [address] Allergies Active Allergy Reactions Criticality Noted Date [...] suspected opioid overdose. Seek immediate medical attention. [email or web address]://www.datatrackeru be.com/watch?v=[email or web address] 0 Active Prochlorperazine Maleate 5 MG Oral [...] for each unit 100 mL 08/26/2023 Active Esjgpwfimq-ROVW-Olssc ine 50-325-40 MG Oral Tablet (Fioricet) TAKE [...] AM EST Office Visit Interventional Pain Center, [facility] [address] [address] Iman Ying PA-C [address] [address] [address] 10/02/2023 2:40 PM EST Office Visit Hepatology, [facility] [address] [address] Hilda Calvert, DO [address] [place] [address] 11/27/2023 8:40 AM EDT Office Visit Hepatology, [facility] [address] [place] [address] Hilda Calvert, DO [address] [place] [address] Health Maintenance Due Date Last Done Comments [...] Priority Date/Time Associated Diagnosis Comments CHEMISTRY-OUTSIDE Routine 09/22/2023 documented in this encounter Results * (ABNORMAL) CHEMISTRY-OUTSIDE (09/22/2023) Not all results display below - see scan for full detail OUTSIDE LAB (SEE SCANNED REPORT) CREATININE-OUTSID E LAB OUTSIDE LAB (SEE SCANNED REPORT) Comment:[facility]-PT,INR,PTT,CBCD EGFR-OUTSIDE LAB OUT SIDE LAB (SEE SCANNED [...] LAB OUTSIDE LAB (SEE SCANNED REPORT) HEMOGLOBIN, L1B-CBNUIOF LAB OUTSIDE LAB (SEE SCANNED REPORT) PHOSPHORUS-OUTSID E LAB OUTSIDE LAB (SEE SCANNED REPORT) PTH-OUTSIDE LAB OUTS GRECIA LAB (SEE SCANNED REPORT) MICROALBUMIN RATIO-OUTSIDE LAB OUTSIDE LA B (SEE SCANNED REPORT) PROTEIN, UA-OUTSIDE LAB OUTSIDE LAB (SEE SCANNED REPORT) HEMOGLOBIN-OUTSID E LAB 9.5(A) 12 - 16 G/DL OUTSIDE LAB (SEE SCANNED REPORT) 09/22/2023 Hilda Calvert DO LABORATORY OUTSIDE LAB (SEE SCANNED REPORT) documented in this encounter Advance Directives Latest Code Status on File Code Status Date Activated Date Inactivated Comments Full Code 10/15/2007 5:16 PM 10/17/2007 5:01 PM Care Teams Barbering Teacher Relationship Specialty Start Date End Date Endy Stanley DO [address] [address] [place] [address] PCP - General Family Medicine 07/13/18 documented as of this encounter
[2023-10-06] MEDS: MIDODRINE HCL 2.5 MG TAB PO STA (13:58)
[2023-10-06 14:44] LABS: Appearance Urine Clear (Clear); Bilirubin Urine Negative (Negative); Blood Urine Negative (Negative); Color Urine Dark Yellow; Glucose Urine UA Negative (Negative); Ketones Urine Negative (Negative); Leukocyte Esterase Urine Negative (Negative); Nitrite Urine Negative (Negative); Protein Urine Negative (Negative); Urobilinogen Urine Negative (Negative); pH Urine 5.5 (4.5-7.5)
[2023-10-06] MEDS ORDERED: ALPRAZolam 0.5 MG TABLET PO PRN (15:43)
[2023-10-06] MEDS ORDERED: hydrOXYzine HCl 10 MG TAB PO PRN (15:43)
[2023-10-06] MEDS ORDERED: IPRATROPIUM BROMIDE/ALBUTEROL respimat INH INH PRN (15:43)
[2023-10-06] MEDS ORDERED: tiZANidine HCL 4 MG TABLET PO PRN (15:43)
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
[2023-10-06] MEDS ORDERED: oxyCODONE HCL IR 5 MG TAB (IMMEDIATE RELEASE) PO SCH (17:00)
[2023-10-06] MEDS: MIDODRINE HCL 10 MG TAB PO SCH (17:48)
[2023-10-06] MEDS: LACTULOSE SYRUP 30 GM/45 ML UDP PO SCH (17:48)
[2023-10-06] MEDS: POTASSIUM CHLORIDE CRTAB 20 MEQ TABCR PO STA (17:50)
[2023-10-06] MEDS: BUMETANIDE 1 MG TAB PO SCH (17:50)
[2023-10-06] MEDS: rOPINIRole HCL 2 MG TABLET PO SCH (20:51)
[2023-10-06] MEDS: MAGNESIUM OXIDE 400 MG TAB PO SCH (20:52)
[2023-10-06] MEDS: POTASSIUM CHLORIDE 10 MEQ TABCR PO SCH (20:52)
[2023-10-06] MEDS: DOCUSATE SODIUM 100 MG CAP PO SCH (20:52)
[2023-10-06] MEDS: SUCRALFATE 1 GM TAB PO SCH (20:52)
[2023-10-06] MEDS: SPIRONOLACTONE 100 MG TAB PO SCH (20:52)
[2023-10-06] MEDS: PANTOprazole 40 MG TAB PO SCH (20:52)
--- NOTE | 2023-10-07 06:11 | Electrocardiogram Report ---
Test Reason : Blood Pressure : / mmHG Vent. Rate : 091 BPM Atrial Rate : 091 BPM P-R Int : 164 ms QRS Dur : 092 ms QT Int : 428 ms P-R-T Axes : 059 -37 039 degrees QTc Int : 526 ms Normal sinus rhythm Left axis deviation Possible Anterior infarct , age undetermined Prolonged QT Abnormal ECG When compared with ECG of 21-JUL-2023 19:41, Vent. rate has increased BY 33 BPM QRS axis Shifted left Borderline criteria for Anterior infarct are now Present Confirmed by Jose Azul ([id number]) on 10/07/2023 6:10:50 AM Referred By: REFERRED SELF Confirmed By:Jose Azul
[2023-10-07] MEDS: LEVOTHYROXINE SODIUM 100 MCG TABLET PO SCH (06:22)
[2023-10-07 07:11] LABS: Basophils # (auto) 0.02 K/uL (0.00-0.20); Basophils % (auto) 0.8 %; Eosinophils # (auto) 0.06 K/uL (0.00-0.50); Eosinophils % (auto) 2.3 %; Hematocrit (blood only) 32.3 % (37.0-47.0); Hemoglobin 10.9 g/dl (12.0-16.0); Immature Granulocytes # (auto) 0.01 K/uL (0.01-0.20); Immature Granulocytes % (auto) 0.4 %; Lymphocytes # (auto) 0.48 K/uL (1.20-3.40); Lymphocytes % (auto) 18.7 %; Mean Corpuscular Hemoglobin 29.5 pg (25.0-34.0); Mean Corpuscular Hgb Conc 33.7 g/dL (32.0-36.0); Mean Corpuscular Volume 87.5 fL (80.0-100.0); Mean Platelet Volume 10.1 fL (9.4-12.4); Monocytes # (auto) 0.36 K/uL (0.11-0.59); Neutrophils # (auto) 1.64 K/uL (1.40-6.50); Neutrophils % (auto) 63.8 %; Platelet Count 46 K/uL (130-400); RDW Coefficient of Variation 15.9 % (11.5-14.5); RDW Standard Deviation 50.6 fL (36.4-46.3); Red Blood Count 3.69 M/uL (4.20-5.40); White Blood Count 2.57 K/ul (4.8-10.8)
[2023-10-07 07:40] LABS: Albumin Globulin Ratio 1.3 (0.9-2); Albumin Level 3.6 gm/dl (3.4-5.0); BUN Creatinine Ratio 14.7 (10-20); Bilirubin,Total 2.3 mg/dl (0.2-1.0); Creatinine Clr Calc Pharmacy 102.2 ml/min; Est GFR (African American) 113.9 ml/min; Est GFR (Non-African American) 98.3 ml/min; Globulin 2.7 gm/dl (2.5-4.0); Potassium 3.7 mmol/L (3.5-5.1); Total Protein 6.3 gm/dl (6.0-8.3)
[2023-10-07] MEDS: ENOXAPARIN INJ 40 MG/0.4 ML SYR SQ SCH (08:44)
[2023-10-07] MEDS: CALCIUM CARBONATE 500 MG CHEWABLE TAB PO SCH (08:46)
[2023-10-07] MEDS: rifAXIMin 550 MG TABLET PO SCH (08:46)
[2023-10-07] MEDS: SIMETHICONE 80 MG CHEW PO SCH (08:46)
[2023-10-07] MEDS: FAMOTIDINE 40 MG TABLET PO SCH (08:46)
[2023-10-07] MEDS: LINACLOTIDE 145 MCG CAPSULE PO SCH (08:46)
[2023-10-07] MEDS: VENLAFAXINE HCL XR 75 MG CAPXR PO SCH (08:47)
[2023-10-07] MEDS: CHOLECALCIFEROL 125 MCG (5,000 UNITS) TAB PO SCH (08:47)
[2023-10-07] MEDS: VENLAFAXINE HCL XR 150 MG CAPXR PO SCH (08:47)
[2023-10-07] MEDS ORDERED: SERTRALINE HCL 50 MG TABLET PO SCH ×2 (09:00)
[2023-10-07] MEDS: METOCLOPRAMIDE HCL INJ 5 MG/ML 2 ML VIAL IV PRN (11:47)
[2023-10-07] MEDS: SUCRALFATE 1 GM TAB PO SCH (12:44)
[2023-10-07 15:51] LABS: Adenovirus F 40/41 PCR Not Detected (NotDetected); Astrovirus PCR Not Detected (NotDetected); Campylobacter PCR Not Detected (NotDetected); Cryptosporidium PCR Not Detected (NotDetected); Cyclospora cayetanensis PCR Not Detected (NotDetected); Entamoeba histolytica PCR Not Detected (NotDetected); Enteroaggregative E.coli(EAEC) Not Detected (NotDetected); Enteropathogenic E.coli (EPEC) Not Detected (NotDetected); Enterotoxigenic E.coli (ETEC) Not Detected (NotDetected); Giardia lamblia PCR Not Detected (NotDetected); Norovirus GI/GII PCR Not Detected (NotDetected); Plesiomonas shigelloides PCR Not Detected (NotDetected); Rotavirus A PCR Not Detected (NotDetected); Salmonella PCR Not Detected (NotDetected); Sapovirus PCR Not Detected (NotDetected); Shiga-like Toxin E.coli (STEC) Not Detected (NotDetected); Shigella/Enteroinvasive E.coli Not Detected (NotDetected); Vibrio cholerae PCR Not Detected (NotDetected); Vibrio species PCR Not Detected (NotDetected); Yersinia enterocolitica PCR Not Detected (NotDetected)
--- NOTE | 2023-10-07 18:29 | Hospitalist Progress Note ---
Date of Service October 07, 2023 Assessment & Plan (1) Hepatic encephalopathy: Plan: Ongoing but improved Apparently was quite lethargic yesterday More awake/alert today Cont Lactulose 30g QID - titrate for at least 3 BMs/day Rifaximin 550 mg BID Cause of HE? noncompliance with meds? other ? (2) 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: Plan: Bilirubin, INR, Na, platelets at baseline MELD Na score = 14, <2% estimated 90-day mortality Child-Chaudhari class B To get on transplant list she needs to wean fully off all narcotics Need to get the outpatient clinic note from pain management re: the wean process? (3) Sleep apnea: Plan: Previously declined CPAP. (4) RLS (restless legs syndrome): Plan: Continue ropinirole 4 mg p.o. TID (5) RUBEN (iron deficiency anemia): Plan: During prior stays has had IV venofer multiple times H/H are stable no signs of GI bleeding (6) Hypothyroidism: Plan: TSH 7.37 Cont synthroid 300 mcg daily Her TSH fluctuates considerably - will leave dose as is for now (7) History of CVA (cerebrovascular accident): Plan: vertebral artery dissection with resulting CVA (8) Refractory ascites: Plan: not an issue at this time last time she presented to [facility] for paracentesis there was not enough ascites to safely tap cont bumex cont aldactone (9) Chronic narcotic dependence: Plan: 120 tabs of oxy given monthly by PCP will need to speak with pain management about a taper schedule to gradually wean her off as this will be a requisite for liver transplantation Plan VTE prophylaxis - Lovenox 40 mg subcu daily (cautiously due to low platelets from cirrhosis) Admission and Anticipated Discharge Date Admission Date: October 06, 2023 Subjective patient walking around the room when I arrived she sat down, and stated she was feeling better today overall she still had moments of thought blocking and not getting historical information correct but at other times seemed quite sharp she tells me that she needs to wean off oxycodone in order to go on the transplant list (following in [place] for such??) she also mentions she saw pain management recently at [facility] in [place]? did have 1 episode of emesis earlier today only 1 BM per staff despite lactulose QID the BM was large nonbloody no melena Review of Systems Review of Systems: cv - no chest pain neuro - ongoing headaches pulm - no dyspnea or cough GI - mild pain at times; nausea/emesis earlier today Physical Exam Physical Exam: gen - mildly confused but NAD, pleasant skin - no jaundice; hemangiomas on face (chronic) mouth - MMM neck - no JVD heart - RRR, s1 s2, 1/6 EDUARDO LSB lungs - CTA b/l abd - soft NT ND BS+; no ascites ext - trace edema, pulses 2+ b/l, stasis changes b/l legs (shins) neuro - no asterixis; baseline tremor (chronic) psych - moments of confusion Results & Data Results & Data Vital Signs (Past 12 Hours) Vital Signs Temp Pulse Resp BP BP Pulse Ox O2 Del Method 10/07/23 15:37 36.9 C 87 20 154/89 H 96 Room Air 10/07/23 11:54 154/82 H 10/07/23 07:36 36.7 C 70 18 146/79 H 96 Room Air Laboratory Results Laboratory Results - last 48 hr 10/06/23 10/06/23 10/07/23 11:00 Unknown 06:37 WBC 2.41 L 2.57 L RBC 3.93 L 3.69 L Hgb 11.4 L 10.9 L Hct 35.2 L 32.3 L MCV 89.6 87.5 MCH 29.0 29.5 MCHC 32.4 33.7 RDW Std Deviation 52.7 H 50.6 H RDW Coeff of Henna 16.0 H 15.9 H Plt Count 55 L 46 L MPV 9.7 10.1 Immature Gran % (Auto) 0.0 0.4 Neut % (Auto) 62.3 63.8 Lymph % (Auto) 19.5 18.7 [place] % (Auto) 13.3 14.0 Eos % (Auto) 3.7 2.3 Baso % (Auto) 1.2 0.8 Neut # (Auto) 1.50 1.64 Lymph # (Auto) 0.47 L 0.48 L [place] # (Auto) 0.32 0.36 Eos # (Auto) 0.09 0.06 Baso # (Auto) 0.03 0.02 Immature Gran # (Auto) 0.00 L 0.01 PT 14.6 H INR 1.4 H APTT 29 PTT Ratio 1.0 Sodium 138 140 Potassium 3.3 L 3.7 Chloride 97 L 102 Carbon Dioxide 34 H 32 Anion Gap 7 6 BUN 14 11 Creatinine 0.88 0.75 Est Cr Clr Drug Dosing 87.3 102.2 Est GFR ( Amer) 93.9 113.9 Est GFR (Non-Af Amer) 81.0 98.3 BUN/Creatinine Ratio 15.9 14.7 Glucose 96 82 Calcium 9.2 9.0 Magnesium 2.0 Total Bilirubin 1.7 H 2.3 H AST 90 H 80 H ALT 35 31 Alkaline Phosphatase 80 66 Ammonia 113.0 H Troponin I High Sens 4.5 Total Protein 7.1 6.3 Albumin 3.8 3.6 Globulin 3.3 2.7 Albumin/Globulin Ratio 1.2 1.3 TSH 7.370 H Urine Color Dark Yellow Urine Appearance Clear Urine pH 5.5 Ur Specific [place] 1.020 Urine Protein Negative Urine Glucose (UA) Negative Urine Ketones Negative Urine Blood Negative Urine Nitrite Negative Urine Bilirubin Negative Urine Urobilinogen Negative Ur Leukocyte Esterase Negative Stl C. cayetanensis PCR Stool Rotavirus A PCR Stl Adenov F 40/41 PCR Stool Astrovirus (PCR) Stool Campylobacter PCR Stool Cryptosporidium PCR Stl E.coli Shiga Tox PCR Stl Enterotoxigenic E PCR Stool EPEC (PCR) Stool EAEC (PCR) Stl E. histolytica PCR Stool Giardia Lamblia PCR Stool Salmonella PCR Stool Sapovirus (PCR) Stl P. shigelloides PCR Stl Shigella/EIEC PCR St Y.enterocolitica PCR Stool Vibrio (PCR) Stl Vibrio cholerae PCR Stl Norovirus GI/GII PCR SARS-CoV-2, RNA, NAAT PG Care Time/CCT Total # of Minutes Spent Total Time Spent with Patient: Total time spent is greater than 50% in coordination of care (as documented) at patient's floor/unit and/or counseling patient: Coding Level of Care Code 20969 SUB INP/OBS CARE 2/35MIN Diagnoses Hepatic encephalopathy K72.90 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 Chronic narcotic dependence F11.20
[2023-10-07] MEDS: oxyCODONE HCL IR 5 MG TAB (IMMEDIATE RELEASE) PO PRN (23:57)
[2023-10-08] MEDS: ALPRAZolam 0.5 MG TABLET PO PRN (03:55)
[2023-10-08 07:07] LABS: Hemoglobin 11.3 g/dl (12.0-16.0); Mean Corpuscular Hemoglobin 29.7 pg (25.0-34.0); Mean Corpuscular Hgb Conc 34.2 g/dL (32.0-36.0); Mean Corpuscular Volume 86.6 fL (80.0-100.0); Mean Platelet Volume 9.9 fL (9.4-12.4); Platelet Count 72 K/uL (130-400); RDW Standard Deviation 50.3 fL (36.4-46.3); Red Blood Count 3.81 M/uL (4.20-5.40); White Blood Count 5.79 K/ul (4.8-10.8)
[2023-10-08 08:25] LABS: Potassium 3.2 mmol/L (3.5-5.1)
[2023-10-08 08:31] LABS: BUN Creatinine Ratio 12.8 (10-20); Creatinine Clr Calc Pharmacy 98.3 ml/min; Est GFR (African American) 108.7 ml/min; Est GFR (Non-African American) 93.8 ml/min
[2023-10-08] MEDS: BUMETANIDE 1 MG TAB PO SCH (12:34)
[2023-10-08] MEDS: POTASSIUM CHLORIDE / WTR 10 MEQ/100 ML PLCT IV ONE (12:51)
[2023-10-08] MEDS: POTASSIUM CHLORIDE CRTAB 20 MEQ TABCR PO SCH (15:10)
[2023-10-08] MEDS: BENZOCAINE 20% (ORAJEL) 11.9 GM TUBE MT PRN (20:46)
--- NOTE | 2023-10-08 21:29 | Hospitalist Progress Note ---
Date of Service October 08, 2023 Assessment & Plan (1) Hepatic encephalopathy: Plan: MUCH improved She is stool 5+ times/day at this point --> lower lactulose to 30g TID titrate for 3 BMs/day cont Rifaximin 550 mg BID Cause of HE? noncompliance with meds? 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: Plan: Bilirubin, INR, Na, platelets at baseline MELD Na score = 14, <2% estimated 90-day mortality Child-Chaudhari class B To get on transplant list she needs to wean fully off all narcotics did see [facility] pain management but her narcotics are prescribed by her PCP (120 tabs of oxy each month) PCP would ultimately be responsible for weaning will ask our pain management team for assistance with the weaning process (3) Sleep apnea: Plan: Previously declined CPAP. (4) RLS (restless legs syndrome): Plan: Continue ropinirole 4 mg p.o. TID (5) RUBEN (iron deficiency anemia): Plan: During prior stays has had IV venofer multiple times H/H are stable no signs of GI bleeding (6) Hypothyroidism: Plan: TSH 7.37 Cont synthroid 300 mcg daily Her TSH fluctuates considerably - will leave dose as is for now (7) History of CVA (cerebrovascular accident): Plan: vertebral artery dissection with resulting CVA (8) Refractory ascites: Plan: not an issue at this time last time she presented to [facility] for paracentesis there was not enough ascites to safely tap cont bumex TID (I did confirm that her dose is 2mg TID with her GI doctor - Dr Calvert) cont aldactone BID (9) Chronic narcotic dependence: Plan: 120 tabs of oxy given monthly by PCP will need to speak with pain management about a taper schedule to gradually wean her off as this will be a requisite for liver transplantation Plan VTE prophylaxis - Lovenox 40 mg subcu daily (cautiously due to low platelets from cirrhosis) pt requests hemoglobin a1c - will check in am Admission and Anticipated Discharge Date Admission Date: October 06, 2023 Subjective patient with NUMEROUS BMs today - 5+ loose, large - no blood no abd pain some intermittent nausea but eating well - 100% of meals no dyspnea she asks about whether pain management would see her here to figure out a wean schedule for the oxycodone Review of Systems Review of Systems: gen - no fevers or chills cv - no chest pain pulm - no dyspnea or YAN GI - no pain today Physical Exam Physical Exam: gen - looks much better today; confusion SIGNIFICANTLY improved; mentation near- normal skin - no jaundice; hemangiomas on face (chronic) mouth - MMM neck - no JVD heart - RRR, s1 s2, 1/6 EDUARDO LSB lungs - CTA b/l abd - soft NT ND BS+; no ascites ext - trace edema, pulses 2+ b/l, stasis changes b/l legs (shins); no cellulitis neuro - no asterixis; baseline tremor (chronic) Results & Data Results & Data Vital Signs (Past 12 Hours) Vital Signs Temp Pulse Resp BP Pulse Ox O2 Del Method 10/08/23 15:39 36.8 C 82 18 155/96 H 98 Room Air Laboratory Results Laboratory Results 10/07/23 10/07/23 10/08/23 14:15 20:24 06:23 WBC 5.79 RBC 3.81 L Hgb 11.3 L Hct 33.0 L MCV 86.6 MCH 29.7 MCHC 34.2 RDW Std Deviation 50.3 H RDW Coeff of Henna 16.0 H Plt Count 72 L D MPV 9.9 Sodium 139 Potassium 3.2 L Chloride 103 Carbon Dioxide 28 Anion Gap 8 BUN 10 Creatinine 0.78 Est Cr Clr Drug Dosing 98.3 Est GFR ( Amer) 108.7 Est GFR (Non-Af Amer) 93.8 BUN/Creatinine Ratio 12.8 Glucose 77 Calcium 9.0 Magnesium Stl C. cayetanensis PCR Not Detected Stool Rotavirus A PCR Not Detected Stl Adenov F 40/41 PCR Not Detected Stool Astrovirus (PCR) Not Detected Stool Campylobacter PCR Not Detected Stool Cryptosporidium PCR Not Detected Stl E.coli Shiga Tox PCR Not Detected Stl Enterotoxigenic E PCR Not Detected Stool EPEC (PCR) Not Detected Stool EAEC (PCR) Not Detected Stl E. histolytica PCR Not Detected Stool Giardia Lamblia PCR Not Detected Stool Salmonella PCR Not Detected Stool Sapovirus (PCR) Not Detected Stl P. shigelloides PCR Not Detected Stl Shigella/EIEC PCR Not Detected St Y.enterocolitica PCR Not Detected Stool Vibrio (PCR) Not Detected Stl Vibrio cholerae PCR Not Detected Stl Norovirus GI/GII PCR Not Detected SARS-CoV-2, RNA, NAAT NEGATIVE PG Care Time/CCT Total # of Minutes Spent Total Time Spent with Patient: Total time spent is greater than 50% in coordination of care (as documented) at patient's floor/unit and/or counseling patient: Coding Level of Care Code 61366 SUB INP/OBS CARE 2/35MIN Diagnoses Hepatic encephalopathy K72.90 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 Chronic narcotic dependence F11.20
[2023-10-09 08:39] LABS: Hematocrit (blood only) 35.6 % (37.0-47.0); Hemoglobin 12.1 g/dl (12.0-16.0); Mean Corpuscular Hemoglobin 29.7 pg (25.0-34.0); Mean Corpuscular Volume 87.3 fL (80.0-100.0); Mean Platelet Volume 9.6 fL (9.4-12.4); Platelet Count 70 K/uL (130-400); RDW Coefficient of Variation 16.1 % (11.5-14.5); RDW Standard Deviation 50.7 fL (36.4-46.3); Red Blood Count 4.08 M/uL (4.20-5.40); White Blood Count 4.86 K/ul (4.8-10.8)
[2023-10-09 08:58] LABS: Calcium 8.8 mg/dl (8.6-10.3); Creatinine Clr Calc Pharmacy 93.5 ml/min; Est GFR (African American) 102.3 ml/min; Est GFR (Non-African American) 88.3 ml/min; Magnesium 1.9 mg/dl (1.7-2.4); Potassium 3.2 mmol/L (3.5-5.1)
[2023-10-09] MEDS: LACTULOSE SYRUP 30 GM/45 ML UDP PO SCH (09:14)
[2023-10-09] MEDS: POTASSIUM CHLORIDE CRTAB 20 MEQ TABCR PO STA (09:57)
[2023-10-09 10:05] LABS: Estimated Average Glucose 88 mg/dl; Hemoglobin A1C 4.7 % (4.5-5.6)
[2023-10-09] MEDS: POTASSIUM CHLORIDE CRTAB 20 MEQ TABCR PO SCH (13:23)
[2023-10-09] MEDS: ARTIFICIAL TEARS OPB PRN (17:06)
[2023-10-09] MEDS: TRIMETHOPRIM/POLYMYXIN B OPL SCH (17:06)
[2023-10-09] MEDS: NAPHAZOLIN/PHENIRAMIN OPH SOLN 75 DROPS/5 ML BTL OP SCH (18:04)
--- NOTE | 2023-10-09 20:05 | Hospitalist Progress Note ---
Date of Service October 09, 2023 Assessment & Plan (1) Hepatic encephalopathy: Plan: resolved cont lactulose to 30g TID - titrate for 3 BMs/day cont Rifaximin 550 mg BID Cause of HE? noncompliance with meds? 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: Plan: Bilirubin, INR, Na, platelets at baseline MELD Na score = 14, <2% estimated 90-day mortality Child-Chaudhari class B To get on transplant list she needs to wean fully off all narcotics did see [facility] but her narcotics are prescribed by her PCP (120 tabs of oxy 15mg tabs each month) PCP would ultimately be responsible for weaning will ask our pain management team for assistance with the weaning process I corresponded with ASHLEY Yun, who will see in consult tomorrow (3) Sleep apnea: Plan: Previously declined CPAP (4) RLS (restless legs syndrome): Plan: Continue ropinirole 4 mg p.o. TID (5) RUBEN (iron deficiency anemia): Plan: During prior stays has had IV venofer multiple times H/H remain stable no signs of GI bleeding (6) Hypothyroidism: Plan: TSH 7.37 Cont synthroid 300 mcg daily + 25mcg daily for TDD of 325mcg (25mcg recently added by PCP) Her TSH fluctuates considerably - will leave dose as is for now (7) History of CVA (cerebrovascular accident): Plan: vertebral artery dissection with resulting CVA (8) Refractory ascites: Plan: not an issue at this time last time she presented to [facility] for paracentesis there was not enough ascites to safely tap cont bumex TID (I did confirm that her dose is 2mg TID with her GI doctor - Dr Calvert) cont aldactone BID (9) Chronic narcotic dependence: Plan: 120 tabs of oxy given monthly by PCP will need to speak with pain management about a taper schedule to gradually wean her off as this will be a requisite for liver transplantation (10) Scleral injection: Plan: left eye due to irritant? does not examine like a viral or bacterial conjunctivitis but could be an early form of such artificial tears prn polytrim eye drop - 1 drop QID to L eye naphcon A prn no evidence of acute glaucoma, uveitis, foreign body no symptoms of corneal abrasion (11) Hypokalemia: Plan: 2nd bumex (high doses) increase K replacement repeat BMP am mag level noted to be normal Plan VTE prophylaxis - Lovenox 40 mg subcu daily (cautiously due to low platelets from cirrhosis) pt requests hemoglobin a1c - returned <5%, and fasting glucose levels are largely <100 hopefully home tomorrow afternoon Admission and Anticipated Discharge Date Admission Date: October 06, 2023 Subjective no new issues mentation is back to normal she is steady on her feet without dizziness or lightheadedness numerous bowel movements again today with her lactulose no abd pain does report nausea, but staff report robust appetite without any vomiting reports various psychosocial stressors that involve her and non- medically related matters she was tearful talking about these stressors spoke with pain management who will see her tomorrow to discuss a taper schedule for her oxy use she gets 15mg oxy tabs - 120 of them - monthly from PCP takes at least 3 tabs/day at home c/o left eye irritation no pain no visual impairment no purulent drainage doesn't recall any ocular injury feels dry no itching Review of Systems Review of Systems: gen - no fevers or chills cv - no chest pain pulm - no dyspnea or YAN Physical Exam Physical Exam: gen - alert, oriented, mentation at baseline; tearful today skin - no jaundice; hemangiomas on face (chronic) eyes - PERRL, no signs/symptoms of uveitis; left lateral sclera injected with mild conjunctival injection as well; scant scleral injection on right; no purulent drainage either eye mouth - MMM neck - no JVD heart - RRR, s1 s2, 1/6 EDUARDO LSB lungs - CTA b/l abd - soft NT ND BS+; no ascites ext - trace edema, pulses 2+ b/l, stasis changes b/l legs (shins); no cellulitis neuro - chronic fine tremor of hands/arms Results & Data Results & Data Vital Signs (Past 12 Hours) Vital Signs Temp Pulse Resp BP Pulse Ox O2 Del Method 10/09/23 19:29 36.8 C 79 14 151/94 H 97 Room Air Laboratory Results Laboratory Results - last 24 hr 10/09/23 07:55 WBC 4.86 RBC 4.08 L Hgb 12.1 Hct 35.6 L MCV 87.3 MCH 29.7 MCHC 34.0 RDW Std Deviation 50.7 H RDW Coeff of Henna 16.1 H Plt Count 70 L MPV 9.6 Sodium 135 L Potassium 3.2 L Chloride 100 Carbon Dioxide 28 Anion Gap 7 BUN 9 Creatinine 0.82 Est Cr Clr Drug Dosing 93.5 Est GFR ( Amer) 102.3 Est GFR (Non-Af Amer) 88.3 BUN/Creatinine Ratio 11.0 Glucose 105 H Estimat Average Glucose 88 Hemoglobin A1c 4.7 Calcium 8.8 Magnesium 1.9 PG Care Time/CCT Total # of Minutes Spent Total Time Spent with Patient: Total time spent is greater than 50% in coordination of care (as documented) at patient's floor/unit and/or counseling patient: Coding Level of Care Code 98406 SUB INP/OBS CARE 2/35MIN Diagnoses Hepatic encephalopathy K72.90 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
[2023-10-10] MEDS: MIDODRINE HCL 2.5 MG TAB PO SCH (06:43)
[2023-10-10] MEDS: LEVOTHYROXINE SODIUM 25 MCG TABLET PO SCH (06:43)
[2023-10-10 07:01] LABS: BUN Creatinine Ratio 10.6 (10-20); Calcium 8.9 mg/dl (8.6-10.3); Creatinine Clr Calc Pharmacy 90.2 ml/min; Est GFR (Non-African American) 84.5 ml/min; Potassium 3.5 mmol/L (3.5-5.1)
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
--- NOTE | 2023-10-10 17:44 | Discharge Summary ---
Date of Service October 10, 2023 Admission HPI Per Admitting Provider Niesha Gutiérrez is a 42-year-old female well-known to the service with GILLESPIE cirrhosis and difficult to control ascites requiring repeated paracentesis and multiple hospitalizations for hepatic encephalopathy. She presents to the emergency room with altered mental status similar to previous episodes of hepatic encephalopathy for the past 2 days. Her reports she is putting her shoes on backwards and generally not as sharp as she is usual. Taking her usual medications as far as he knows. Otherwise she has been doing well since her last admission and no urgent need for paracentesis since her last one a week ago. Her notes in order to get on the transplant list she needs to stop oxycodone and plan to start weaning at her next PCP appointment but willing to do this as an inpatient. She has also noticed bleeding when wiping this morning but no margoth melena, hematochezia, nausea, vomiting or abdominal pain. No respiratory or urinary symptoms. 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) eyes - PERRL, no signs/symptoms of uveitis; left lateral sclera injected with mild conjunctival injection as well; scant scleral injection on right; no purulent drainage either eye mouth - MMM neck - no JVD heart - RRR, s1 s2, 1/6 EDUARDO LSB lungs - CTA b/l abd - soft NT ND BS+; no ascites ext - trace edema, pulses 2+ b/l, stasis changes b/l legs (shins); no cellulitis neuro - chronic fine tremor of hands/arms Discharge Data Allergies Allergy/AdvReac Type Severity Reaction Status Date / Time codeine Allergy Unknown Hives, Verified 10/06/23 14:46 [From Tylenol-Codeine #3] skin redness (Tyenol #3) metformin Allergy Unknown Unknown Unverified 10/06/23 14:46 Consultations 10/06/23 11:58 ED Decision to Admit Stat 10/10/23 07:30 Consult Pain Management Routine Hospital Course (1) Hepatic encephalopathy: resolved cont lactulose to 30g TID - titrate for 3 BMs/day cont Rifaximin 550 mg BID Cause of HE? noncompliance with meds? 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 does not examine like a viral or bacterial conjunctivitis but could be an early form of such artificial tears prn polytrim eye drop - 1 drop QID to L eye naphcon A prn no evidence of acute glaucoma, uveitis, foreign body no symptoms of corneal abrasion (11) Hypokalemia: 2nd bumex (high doses) increase K replacement repeat BMP am mag level noted to be normal Plan VTE prophylaxis - Lovenox 40 mg subcu daily (cautiously due to low platelets from cirrhosis) pt requests hemoglobin a1c - returned <5%, and fasting glucose levels are largely <100 hopefully home tomorrow afternoon Discharge Plan Discharge Items Patient Disposition: Home - Self-Care Reason For Visit: HEPATIC ENCEPHALOPATHY Discharge Diagnosis: 1. hepatic encephalopathy (elevated ammonia levels) - resolved 2. cirrhosis of the liver 3. low potassium - improved 4. left eye irritation - improved 5. chronic pain syndrome (headaches, etc) Activity: Resume your previous activity Non-emergency contact: Primary Care Provider and Boiler Washer Call non-emergency contact if: you have any medication questions, your symptoms worsen, your pain is not controlled, your pain is worsening and your pain is concerning for you Follow-up/Referrals: Morgan Vicente PA-C [Physician Cable Dispatcher] - (see Mr Vicente as needed in the pain management center) Endy Stanley D.O. [Primary Care Provider] - (keep regularly scheduled appointment with Dr Stanley ) Hilda Calvert DO [Physician] - (keep any previously scheduled office visit with her ) Diet: Low Sodium (2gm) Addtl Attending Provider Instructions: Ms Gutiérrez, Ronnell were hospitalized for hepatic encephalopathy (elevated ammonia levels leading to confusion). This resolved with use of lactulose and rifaximin. We did not find any infections or other problems that would have caused the ammonia to rise. Your cirrhosis was otherwise stable during your stay. You are doing very well on your diuretics (bumetanide & spironolactone). You did not have any excess fluid issues while here. Your left eye had considerable irritation during the stay. I did not see any signs of a foreign body in the eye. It is possible it was a low-grade infection. It may also have been due to something irritating the eye. For the left eye you can use the following - 1. naphcon eye drops - 2 drops every 6 hours as needed for irritation/redness 2. polytrim (polymyxin/trimethorprim) antibiotic - 1 drop in the left eye four times daily x 5 days 3. artificial tears/natural tears - 2 drops every 4-6 hours as needed for dry eye/irritation; you can use this in either eye In addition to the above, please STOP docusate (colace stool softener) and Linzess. Follow-up - see separate section In addition, please contact interventional radiology at [facility] if you feel that you need a paracentesis done Return to [facility] if - * you have fever over 100 degrees * you are short of breath * you feel confused or feel extremely tired/lethargic * you have concerns about fluid build-up in your abdomen or your legs * any other concerns It was our pleasure to care for you! Addtl Communications Operator Provider Instructions: You were seen by Morgan Vicente from pain management. He has made some suggestions for how to slowly wean off your oxycodone. Please speak with Dr Stanley about this tapering schedule. You will need to have 5mg tablets prescribed to you in order to wean off the oxycodone. Until you see Dr Stanley please stay on the 15mg tablets of oxycodone. Try to limit the oxycodone to 15mg twice daily for 2 weeks. Start the 15mg twice daily dosing upon discharge. In the next 2 weeks you will then have follow-up with Dr Stanley. Once you see Dr Stanley in the office and you have the 5mg tablets Mr Vicente recommends the following taper - * Oxycodone 10mg twice daily x 2 weeks, then - * Oxycodone 5mg twice daily x 2 weeks, then - * Oxycodone 5mg once a day NEEDED for 1-2 weeks, then stop all the oxycodone at that time Pending Studies at Discharge: No Stand-Alone Forms: My [facility] [employer], Smoking Cessation Medications and DC Order Prescriptions: New Xifaxan 550 mg Tablet 550 mg PO BID Qty: 1 0RF bumetanide 1 mg Tablet 2 mg PO TIDM Qty: 1 0RF lactulose 10 gram/15 mL (15 mL) Solution 30 g PO TID Qty: 1440 0RF Rx Instructions: take twice or three times daily for at least 3 bowel movements each day Naphcon-A 0.025-0.3 % Drops 2 drp ophthalmic (eye) QID PRN (Reason: eye irritation) Qty: 15 0RF polymyxin B sulf-trimethoprim 10,000 unit- 1 mg/mL Drops 1 drp OPL QID 5 Days Qty: 10 0RF polyvinyl alcohol [Artificial Tears (polyvin alc)] 1.4 % Drops 1 drp OPB QID PRN (Reason: dry eye(s)) Qty: 15 0RF levothyroxine [Synthroid] 25 mcg Tablet 25 mcg PO DAILYBB Qty: 1 0RF cholecalciferol (vitamin D3) 125 mcg (5,000 unit) Tablet 125 mcg PO QAM Qty: 1 0RF levothyroxine 100 mcg capsule 300 mcg PO DAILY Qty: 90 0RF Rx Instructions: total daily dose = 325mcg (300mcg + 25mcg) magnesium oxide 400 mg magnesium tablet 400 mg PO DAILY Qty: 30 5RF Continued ondansetron 8 mg tablet,disintegrating 8 mg translingual Q8 PRN (Reason: Nausea) ropinirole 4 mg tablet 4 mg PO TID valacyclovir 500 mg Tablet 500 mg PO Q8 PRN (Reason: .BREAKOUTS) calcium carbonate-simethicone 500-20 mg Tablet,Chewable 0 tab PO TIDM Qty: 0 Rx Instructions: Unable to verify OTC medication with patient/family at this date/time. triamcinolone acetonide 0.1 % Cream 1 applic EXT TID PRN (Reason: dry, itchy skin on legs/abdominal wall) Qty: 15 0RF Rx Instructions: use for 5 days then stop. Apply in very thin amounts only. Combivent Respimat 20-100 mcg/actuation Mist 1 puff INHALATION QID PRN (Reason: cough/wheeze/shortness of breath) Qty: 1 0RF Rx Instructions: space evenly during waking hours clobetasol 0.05 % solution 1 applic TOPICAL BID PRN (Reason: for scalp) [id number]-[id number]-cwuk 50-325-40 mg tablet 2 tab PO Q6 MDD 8 tablets PRN (Reason: Pain) promethazine [Promethegan] 25 mg suppository 25 mg NV UD PRN (Reason: Nausea) famotidine 40 mg tablet 40 mg PO QAM hydroxyzine HCl 10 mg tablet 10 mg PO TID PRN (Reason: Itching) potassium chloride 10 mEq tablet extended release 10 meq PO BID omeprazole 40 mg Capsule,Delayed Release(Dr/Ec) 40 mg PO BID prochlorperazine maleate 5 mg tablet 5 mg PO QID PRN (Reason: Nausea) venlafaxine [Effexor XR] 150 mg capsule,extended release 24hr 150 mg PO DAILY Qty: 30 1RF Rx Instructions: Take 150mg w/ 75mg to equal 225mg by mouth once daily. venlafaxine [Effexor XR] 75 mg capsule,extended release 24hr 75 mg PO DAILY Qty: 30 1RF Rx Instructions: Take 75mg w/ 150mg to equal 225mg by mouth once daily. tizanidine 4 mg tablet 4 mg PO Q6H PRN (Reason: muscle spasms) sertraline 25 mg tablet 0 mg PO DAILY Rx Instructions: Take 25mg w/ 50mg to equal 75mg by mouth once daily. Per pharmacist, this hasn't been picked up yet by patient. sertraline 50 mg tablet 0 mg PO DAILY Rx Instructions: Take 50mg w/ 25mg to equal 75mg by mouth once daily. Per pharmacist, this hasn't been picked up yet by patient. metoclopramide HCl 10 mg tablet 10 mg PO QID midodrine 10 mg tablet 10 mg PO TID alprazolam 1 mg tablet 1 mg PO BID PRN (Reason: Anxiety) spironolactone 100 mg tablet 100 mg PO BID sucralfate 1 gram tablet 1 g PO BID Qty: 1 0RF Rx Instructions: 1g by mouth twice daily oxycodone 15 mg tablet 15 mg PO Q6H Qty: 1 0RF Held Linzess 290 mcg Capsule 0 mcg PO DAILY Hold Instructions: please hold unless Dr Calvert or Dr Stanley ask you to resume it Rx Instructions: Per Pharmacist, pt hasn't picked up from the pharmacy yet. Original Di rections: 290mcg by mouth once daily Discontinued docusate sodium 100 mg capsule 0 mg PO BID Rx Instructions: Unable to verify OTC medication with patient/family at this date/time. 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
== END 2023-10-10 18:45 | disposition home health service (06) | DRG 442 ==
LOC: ED 10:11 → EDINP 12:22 → SUATTDRO 12:22 → 3W 14:59

== ENCOUNTER 2023-10-18 07:42 | Observation (INO) ==
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
[2023-10-18 08:32] LABS: Basophils # (auto) 0.03 K/uL (0.00-0.20); Basophils % (auto) 0.9 %; Eosinophils # (auto) 0.07 K/uL (0.00-0.50); Hematocrit (blood only) 33.8 % (37.0-47.0); Hemoglobin 11.1 g/dl (12.0-16.0); Immature Granulocytes # (auto) 0.01 K/uL (0.01-0.20); Immature Granulocytes % (auto) 0.3 %; Lymphocytes # (auto) 0.61 K/uL (1.20-3.40); Lymphocytes % (auto) 17.6 %; Mean Corpuscular Hemoglobin 29.4 pg (25.0-34.0); Mean Corpuscular Hgb Conc 32.8 g/dL (32.0-36.0); Mean Corpuscular Volume 89.4 fL (80.0-100.0); Mean Platelet Volume 10.4 fL (9.4-12.4); Monocytes # (auto) 0.57 K/uL (0.11-0.59); Monocytes % (auto) 16.5 %; Neutrophils # (auto) 2.17 K/uL (1.40-6.50); Neutrophils % (auto) 62.7 %; Platelet Count 50 K/uL (130-400); RDW Coefficient of Variation 15.2 % (11.5-14.5); RDW Standard Deviation 49.8 fL (36.4-46.3); Red Blood Count 3.78 M/uL (4.20-5.40); White Blood Count 3.46 K/ul (4.8-10.8)
[2023-10-18] MEDS: SODIUM CHLORIDE 0.9% 500 ML IV ONE (08:51)
[2023-10-18] MEDS: ALBUMIN 5% 250 ML IV ONE (08:52)
[2023-10-18 08:55] LABS: Albumin Globulin Ratio 1.1 (0.9-2); Albumin Level 3.7 gm/dl (3.4-5.0); BUN Creatinine Ratio 20.6 (10-20); Bilirubin,Total 2.3 mg/dl (0.2-1.0); Calcium 9.4 mg/dl (8.6-10.3); Creatinine Clr Calc Pharmacy 61.7 ml/min; Est GFR (African American) 60.9 ml/min; Est GFR (Non-African American) 52.5 ml/min; Globulin 3.3 gm/dl (2.5-4.0); Potassium 3.4 mmol/L (3.5-5.1)
[2023-10-18 09:02] LABS: INR 1.3 (0.9-1.1); Prothrombin Time 14.3 Seconds (9.0-12.0)
[2023-10-18] MEDS: LACTULOSE SYRUP 30 GM/45 ML UDP PO STA (09:27)
[2023-10-18] MEDS ORDERED: ONDANSETRON INJ 2 MG/ML 2 ML VIAL IV PRN (09:54)
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
--- NOTE | 2023-10-18 11:38 | Electrocardiogram Report ---
Test Reason : Blood Pressure : / mmHG Vent. Rate : 094 BPM Atrial Rate : 094 BPM P-R Int : 160 ms QRS Dur : 094 ms QT Int : 366 ms P-R-T Axes : 062 -11 049 degrees QTc Int : 457 ms Poor data quality, interpretation may be adversely affected Normal sinus rhythm Poor R wave progression, consider anterior NH vs. lead placement vs. LVH Nonspecific ST abnormality Abnormal ECG When compared with ECG of 06-OCT-2023 10:54, Nonspecific T wave abnormality now evident in Lateral leads QT has shortened Confirmed by Rafal Barrera ([id number]) on 10/18/2023 11:38:09 AM Referred By: REFERRED SELF Confirmed By:Adi Barrera
[2023-10-18] MEDS ORDERED: PROMETHAZINE HCL 25 MG SUPP PR PRN (15:20)
[2023-10-18] MEDS ORDERED: ARTIFICIAL TEARS OPB PRN (15:20)
[2023-10-18] MEDS ORDERED: BUTALBITAL/ACETAMIN/CAFFEINE TAB PO PRN (15:20)
[2023-10-18] MEDS ORDERED: IPRATROPIUM BROMIDE/ALBUTEROL respimat INH INH PRN (15:20)
[2023-10-18] MEDS ORDERED: tiZANidine HCL 4 MG TABLET PO PRN (15:20)
[2023-10-18] MEDS ORDERED: ALPRAZolam 0.5 MG TABLET PO PRN (15:20)
[2023-10-18] MEDS ORDERED: PROCHLORPERAZINE MALEATE 5 MG TAB PO PRN (15:20)
[2023-10-18] MEDS ORDERED: IPRATROPIUM BROMIDE HFA INHALER INH PRN (15:48)
[2023-10-18] MEDS ORDERED: ALBUTEROL HFA 8 GM INHALER INH PRN (15:48)
--- OUTSIDE RECORDS SUMMARY | 2023-10-18 17:27 | External Medical Summary | Summary of Care ---
Author Name Unknown Organization [facility] Address [address] [facility] [place] [address] Phone [phone] Care Team Providers Care Vice Principal Name Role Phone Endy Stanley DO Primary Care Provider +1 [phone] Reason for Visit * Reason Onset Date Comments Precert Approved 09/30/2023 Sertraline Encounter Details Date Type Department Care Team (Late st Contact Info) Description 09/30/2023 Telephone Gastroenterology, [facility] [address] [place] [address] Hilda Calvert DO [address] [place] [address] Precert Approved (Sertraline) Allergies Active Allergy Reactions Criticality Noted Date Comments Codeine Hives 07/18/2012 Metformin Abdominal pain Low 03/30/2013 documented as of this encounter (statuses as of 10/16/2023) Medications Medication Sig Dispensed Refills Start Date [...] suspected opioid overdose. Seek immediate medical attention. [email or web address]?v=[email or web address] 0 Active Prochlorperazine Maleate 5 MG Oral [...] for each unit 100 mL 4 Active Rpzhccazsp-JQHB-Ftys eine 50-325-40 MG Oral Tablet (Fioricet) TAKE [...] the morning. 0 4 Active Sertraline HCl 25 MG Oral Tablet (Zoloft)Indications: Pruritus Take 3 Tablets by mouth in the morning. 270 Tablet 1 4 10/03/19 24 Discontinu ed(Patient preference /discontin uation) documented as of this encounter (statuses as of 10/16/2023) Active Problems Problem Noted Date Diagnosed Date [...] as of this encounter (statuses as of 10/16/2023) Resolved Problems Problem Noted Date Diagnosed Date [...] as of this encounter (statuses as of 10/16/2023) Immunizations Name Administration Dates Next Due H1N1 [...] Telephone Encounter - Emily Morse RN - 10/15/2023 1:11 PM EST She was to be taking three 25 mg tablets. That is what the PA was for. * Telephone Encounter - Lynda Tomlinson OSA - 10/15/2023 1:08 PM EST SERTRALINE 75MG NOT AVAILABLE. PLEASE ADVISE. Lynda Tomlinson Medication Citrix Architect III P: [phone] F: [phone] 10/15/2023,1:08 PM * Telephone Encounter - Emily Morse RN - 10/15/2023 12:55 PM EST Please initiate PA Thanks * Telephone Encounter - Emily Morse RN - 09/30/2023 12:[address] Calvert, disregard message, sent it to you by accident * Telephone Encounter - Emily Morse RN - 09/30/2023 12:12 PM EST Gastro Pre-Cert Request Specialty Medication: No. Medication/Disease State Information: Medication: Sertraline 75 mg Diagnosis (including ICD-10): pruritus, L29.9 Site of care: Self-administered - route pre-cert request to [id number] Office Information: Prescriber: Dr Hilda Calvert Needs PA for 3 tablets a day. Please assist. Has tried Benadryl cream, Hydrocortisone cream, Atarax, documented in this encounter Plan of Treatment Upcoming Encounters Date Type Department Care Team (Late st Contact Info) Description 11/27/2023 8:40 AM EDT Office Visit Hepatology, [facility] [address] [place] [address] Enrike Hilda LoyolaDO [address] [place] [address] Health Maintenance Due Date Last Done Comments Diabetic Eye Exam 1998 Hepatitis B (1 of 3 - 19+ 3-dose series) 12/09/1999 HPV/Co-Test 2010 Cervical Cancer Screening 09/08/2011 Pap [...] 5:16 PM 10/17/2007 5:01 PM Care Teams Vice Principal Relationship Specialty Start Date End Date Endy Stanley DO [address] [address] [place] [address] PCP - General Family Medicine 07/13/18 documented as of this encounter
--- OUTSIDE RECORDS SUMMARY | 2023-10-18 17:27 | External Medical Summary | Summary of Care ---
Author Name Unknown Organization [facility] Address [address] [facility] [place] [address] Phone [phone] Care Team Providers Care Structural Rigger Name Role Phone Endy Stanley DO Primary Care Provider [phone] [phone] Reason for Visit * Reason Onset Date Comments Precert Approved 09/30/2023 Sertraline Encounter Details Date Type Department Care Team (Late st Contact Info) Description 09/30/2023 Telephone Gastroenterology, [facility] [address] [place] [address] Hilda Calvert DO [address] [place] [address] Precert Approved (Sertraline) Allergies Active Allergy Reactions [...] suspected opioid overdose. Seek immediate medical attention. [email or web address]?[email or web address] 0 Active Prochlorperazine Maleate 5 MG Oral [...] for each unit 100 mL 4 Active Ijpvwrrwta-WKUZ-Gsej eine 50-325-40 MG Oral Tablet (Fioricet) TAKE [...] Telephone Encounter - Emily Morse RN - 10/16/2023 9:54 AM EST Type Date User Summary Attachment Precert 10/16/2023 9:43 AM Lynda Tomlinson OSA - - Note: New or re-auth: New authorization Approved/Denied: Approved Drug Name and Formulation: SERTRALINE 25MG TID How Prescribed(directions/sig): TID Day Supply: 30 Did you receive insurance information from outside the chart? No, received insurance information within the chart Valid auth start date: 08/25/2023 Valid auth end date: 08/24/2024 Rx Insurance Info: MARCO ANTONIO RAIMREZ Reference #: Rx Benefits Verified through/on date: EPIC 10/16/2023 Referral (TE) received from: Prescribing [facility] Lynda Tomlinson Medication Gold Beater III P: [phone] F: [phone] 10/16/23,9:43 AM . * Telephone Encounter - Emily Morse RN - 10/15/2023 1:11 PM EST She was to be taking three 25 mg tablets. That is what the PA was for. * Telephone Encounter - Lynda Tomlinson OSA - 10/15/2023 1:08 PM EST SERTRALINE 75MG NOT AVAILABLE. PLEASE ADVISE. Lynda Tomlinson Medication Gold Beater III P: [phone] F: [phone] 10/15/2023,1:08 PM * Telephone Encounter - Emily [...] care: Self-administered - route pre-cert request to [id number] Office Information: Prescriber: Dr Hilda Calvert Needs PA for 3 tablets a day. Please assist. Has tried Benadryl cream, Hydrocortisone cream, Atarax, documented in this encounter Plan of Treatment Upcoming Encounters Date Type Department Care Team (Late st Contact Info) Description 11/27/2023 8:40 AM EDT Office Visit Hepatology, [facility] [address] [place] [address] Hilda Calvert DO [address] [place] [address] Health Maintenance Due Date Last Done Comments [...] 5:16 PM 10/17/2007 5:01 PM Care Teams Structural Rigger Relationship Specialty Start Date End Date Endy Stanley DO [address] [place] [address] [place] [address] PCP - General Family Medicine 07/13/18 documented as of this encounter
--- OUTSIDE RECORDS SUMMARY | 2023-10-18 17:27 | External Medical Summary | Summary of Care ---
Author Name Unknown Organization [facility] Address [address] [facility] [place] [address] Phone [phone] Care Team Providers Care Net Mvc Developer Name Role Phone Endy Stanley DO Primary Care Provider +1 [phone] Reason for Visit * Reason Onset Date Comments Precert In Process 09/30/2023 Kinza [place] verScript Sertraline Encounter Details Date Type Department Care Team (Late st Contact Info) Description 09/30/2023 Telephone Gastroenterology, [facility] [address] [place] [address] Hilda Calvert DO [address] [place] [address] Precert In Process (21 Lynda Silvermanript... Allergies Active Allergy Reactions Criticality Noted Date Comments Codeine Hives 07/18/2012 Metformin Abdominal pain Low 03/30/2013 documented as of this encounter (statuses as of 10/15/2023) Medications Medication Sig Dispensed Refills Start Date [...] suspected opioid overdose. Seek immediate medical attention. [email or web address]?v=[email or web address] 0 Active Prochlorperazine Maleate 5 MG Oral [...] for each unit 100 mL 4 Active Kpnpxkxurf-YNBY-Wbix eine 50-325-40 MG Oral Tablet (Fioricet) TAKE [...] as of this encounter (statuses as of 10/15/2023) Active Problems Problem Noted Date Diagnosed Date [...] as of this encounter (statuses as of 10/15/2023) Resolved Problems Problem Noted Date Diagnosed Date [...] CORD ENTANG NEC-ANTEPAR 10/30/200512/24 Other constipation 09/13/2005 05 6 Hyperthyroidism 05/21/2005 05/14/2017 Overview: diag with [...] as of this encounter (statuses as of 10/15/2023) Immunizations Name Administration Dates Next Due H1N1 [...] NOT AVAILABLE. PLEASE ADVISE. Lynda Tomlinson Medication Ethylbenzene Converter Helper III P: [phone] F: [phone] 10/15/2023,1:08 PM * Telephone Encounter - Emily [...] care: Self-administered - route pre-cert request to [id number] Office Information: Prescriber: Dr Hilda Calvert Needs PA for 3 tablets a day. Please assist. Has tried Benadryl cream, Hydrocortisone cream, Atarax, documented in this encounter Plan of Treatment Upcoming Encounters Date Type Department Care Team (Late st Contact Info) Description 11/27/2023 8:40 AM EDT Office Visit Hepatology, [facility] [address] [place] [address] Hilda Calvert DO [address] [place] [address] Health Maintenance Due Date Last Done Comments [...] 5:16 PM 10/17/2007 5:01 PM Care Teams Net Mvc Developer Relationship Specialty Start Date End Date Endy Stanley DO [address] [place] [address] [place] [address] PCP - General Family Medicine 07/13/18 documented as of this encounter
--- OUTSIDE RECORDS SUMMARY | 2023-10-18 17:27 | External Medical Summary | Summary of Care ---
Author Name Unknown Organization [facility] Address [address] [facility] [place] [address] Phone [phone] Care Team Providers Care Obstetrics Tech Name Role Phone Endy Stanley DO Primary Care Provider [phone] [phone] Reason for Visit * Reason Onset Date Comments Pre Cert/Prior Auth 09/30/2023 Sertraline Encounter Details Date Type Department Care Team (Late st Contact Info) Description 09/30/2023 Telephone Gastroenterology, [facility] [address] [place] [address] Hilda Calvert DO [address] [place] [address] Pre Cert/Prior Auth (Sertraline) Allergies Active Allergy [...] suspected opioid overdose. Seek immediate medical attention. [email or web address]?v=[email or web address] 0 Active Prochlorperazine Maleate 5 MG Oral [...] for each unit 100 mL 4 Active Lwlklfeumd-PHTE-Zntc eine 50-325-40 MG Oral Tablet (Fioricet) TAKE [...] encounter Miscellaneous Notes * Telephone Encounter - Lynda Tomlinson OSA - 10/15/2023 1:08 PM EST SERTRALINE 75MG NOT AVAILABLE. PLEASE ADVISE. Lynda Tomlinson Medication Liaison Officer III P: [phone] F: [phone] 10/15/2023,1:08 PM * Telephone Encounter - Emily [...] care: Self-administered - route pre-cert request to [phone] Office Information: Prescriber: Dr Hilda Calvert Needs PA for 3 tablets a day. Please assist. Has tried Benadryl cream, Hydrocortisone cream, Atarax, documented in this encounter Plan of Treatment Upcoming Encounters Date Type Department Care Team (Late st Contact Info) Description 11/27/2023 8:40 AM EDT Office Visit Hepatology, [address] [place] [address] Hilda Calvert, [address] [place] [address] Health Maintenance Due Date Last Done Comments [...] 5:16 PM 10/17/2007 5:01 PM Care Teams Obstetrics Tech Relationship Specialty Start Date End Date Endy Stanley DO [address] [facility] [address] [place] [address] PCP - General Family Medicine 07/13/18 documented as of this encounter
--- OUTSIDE RECORDS SUMMARY | 2023-10-18 17:27 | External Medical Summary | Summary of Care ---
Author Name Unknown Organization [facility] Address [address] [facility] [place] [address] Phone [phone] Care Team Providers Care Religious Activities Director Name Role Phone Endy Stanley DO Primary Care Provider +1 [phone] Reason for Visit * Reason Onset Date Comments Pre Cert/Prior Auth 09/30/2023 Sertraline Encounter Details Date Type Department Care Team (Late st Contact Info) Description 09/30/2023 Telephone Gastroenterology, [facility] [address] [place] [address] Hilda Calvert DO [address] [place] [address] Pre Cert/Prior Auth (Sertraline) Allergies Active Allergy [...] suspected opioid overdose. Seek immediate medical attention. [email or web address]?v=[email or web address] 0 Active Prochlorperazine Maleate 5 MG Oral [...] for each unit 100 mL 4 Active Gqkwtmrlcq-RLXK-Mfdi eine 50-325-40 MG Oral Tablet (Fioricet) TAKE [...] care: Self-administered - route pre-cert request to [id number] Office Information: Prescriber: Dr Hilda Calvert Needs PA for 3 tablets a day. Please assist. Has tried Benadryl cream, Hydrocortisone cream, Atarax, documented in this encounter Plan of Treatment Upcoming Encounters Date Type Department Care Team (Late st Contact Info) Description 11/27/2023 8:40 AM EDT Office Visit Hepatology, [facility] [address] [place] [address] Hilda Calvert DO [address] [place] [address] Health Maintenance Due Date Last Done Comments [...] 5:16 PM 10/17/2007 5:01 PM Care Teams Religious Activities Director Relationship Specialty Start Date End Date Endy Stanley DO [address] [facility] [address] [place] [address] [place] [address] PCP - General Family Medicine 07/13/18 documented as of this encounter
--- OUTSIDE RECORDS SUMMARY | 2023-10-18 17:27 | External Medical Summary | Summary of Care ---
Author Name Unknown Organization [facility] Address [address] [facility] [place] [address] Phone [phone] Care Team Providers Care Operations Specialists Name Role Phone Endy Stanley DO Primary Care Provider [phone] [phone] Reason for Visit * Reason Onset Date Comments Pre Cert/Prior Auth 09/30/2023 Sertraline Encounter Details Date Type Department Care Team (Late st Contact Info) Description 09/30/2023 Telephone Gastroenterology, [facility] [address] [place] [address] Hilda Calvert DO [address] [place] [address] Pre Cert/Prior Auth (Sertraline) Allergies Active Allergy [...] suspected opioid overdose. Seek immediate medical attention. [email or web address] Active Prochlorperazine Maleate 5 MG Oral [...] for each unit 100 mL 4 Active Qnrglrfmgf-OZMT-Xidz eine 50-325-40 MG Oral Tablet (Fioricet) TAKE [...] NOT AVAILABLE. PLEASE ADVISE. Lynda Tomlinson Medication Rope Twisting Machine Operator III P: [phone] F: [phone] 10/15/2023,1:08 PM * Telephone Encounter - Emily [...] care: Self-administered - route pre-cert request to [id number] Office Information: Prescriber: Dr Hilda Calvert Needs PA for 3 tablets a day. Please assist. Has tried Benadryl cream, Hydrocortisone cream, Atarax, documented in this encounter Plan of Treatment Upcoming Encounters Date Type Department Care Team (Late st Contact Info) Description 11/27/2023 8:40 AM EDT Office Visit Hepatology, [facility] [address] [place] [address] [place] Hilda LoyolaDO [address] [place] [address] Health Maintenance Due Date Last Done Comments [...] 5:16 PM 10/17/2007 5:01 PM Care Teams Operations Specialists Relationship Specialty Start Date End Date Endy Stanley DO [address] [address] [place] [address] PCP - General Family Medicine 07/13/18 documented as of this encounter
--- OUTSIDE RECORDS SUMMARY | 2023-10-18 17:27 | External Medical Summary ---
Author Name UNSPECIFIED Address Unknown Organization [facility] History of Encounters Reason for Assessment: Resumption of car e (after inpatient stay) Inpatient discharge facility: Past 14 Da ys: Discharged From Short Stay Acute Hospital Most Recent Inpatient Discharge Date: Functional Assessment Patient Living Situation: Patient lives with other person(s) in the home: Around the clock When Dyspneic: With moderate exerti on (e.g., while dressing, using commode or bedpan, walking distances less than 20 feet) Bowel Incontinence Frequency: Very rarel y or never has bowel incontinence When Confused (Reported or Observed): Du ring the day and evening, but not constantly When Anxious (Reported or Observed): Les s often than daily Cognitive and Behavioral and Psychiatric Symptoms: None Current Ability: Bathing: able to partic ipate in bathing self in shower or tub, but requires presence of another person throughout the bath for assistance or supervision. Current Ability: Ambulation: Able to wal k [...] 6.82^^ Home Care Diagnosis 1: ICD Code: R18.8, Other ascites Home Care Diagnosis 1: Severity Ratin Home Care Diagnosis 2: ICD Code: K74.60, Unspecified cirrhosis of liver Home Care Diagnosis 2: Severity Ratin Home Care Diagnosis 3: ICD Code: K75.81, Nonalcoholic steatohepatitis (GILLESPIE) Home Care Diagnosis 3: Severity Ratin Home Care Diagnosis 4: ICD Code: D69.6, Thrombocytopenia, unspecified Home Care Diagnosis 4: Severity Ratin Home Care Diagnosis 5: ICD Code: D50.9, Iron deficiency anemia, unspecified Home Care Diagnosis 5: Severity Ratin
--- OUTSIDE RECORDS SUMMARY | 2023-10-18 17:27 | External Medical Summary | Summary of Care ---
Author Name Unknown Organization [facility] Address [address] [facility] [place] [address] Phone [phone] Care Team Providers Care Shot Grinder Operator Name Role Phone Endy Stanley DO Primary Care Provider [phone] [phone] Reason for Visit * Reason Onset Date Comments Pre Cert/Prior Auth 09/30/2023 Sertraline Encounter Details Date Type Department Care Team (Late st Contact Info) Description 09/30/2023 Telephone Gastroenterology, [facility] [address] [place] [address] Hilda Calvert DO [address] [place] [address] Pre Cert/Prior Auth (Sertraline) Allergies Active Allergy Reactions Criticality Noted Date Comments Codeine Hives 07/18/2012 Metformin Abdominal pain Low 03/30/2013 documented as of this encounter (statuses as of 10/07/2023) Medications Medication Sig Dispensed Refills Start Date [...] suspected opioid overdose. Seek immediate medical attention. [email or web address] 0 Active Prochlorperazine Maleate 5 MG Oral [...] for each unit 100 mL 4 Active Llghnxbgxt-MJCZ-Fvzu eine 50-325-40 MG Oral Tablet (Fioricet) TAKE [...] as of this encounter (statuses as of 10/07/2023) Active Problems Problem Noted Date Diagnosed Date [...] as of this encounter (statuses as of 10/07/2023) Resolved Problems Problem Noted Date Diagnosed Date [...] as of this encounter (statuses as of 10/07/2023) Immunizations Name Administration Dates Next Due H1N1 [...] care: Self-administered - route pre-cert request to [id number] Office Information: Prescriber: Dr Hilda Calvert Needs PA for 3 tablets a day. Please assist. Has tried Benadryl cream, Hydrocortisone cream, Atarax, documented in this encounter Plan of Treatment Upcoming Encounters Date Type Department Care Team (Late st Contact Info) Description 11/27/2023 8:40 AM EDT Office Visit Hepatology, [facility] [address] [place] [address] Hilda Calvert, [address] [place] [address] Health Maintenance Due Date Last Done Comments [...] 5:16 PM 10/17/2007 5:01 PM Care Teams Shot Grinder Operator Relationship Specialty Start Date End Date Endy Stanley DO [address] [facility] [address] [facility] [address] [place] [address] PCP - General Family Medicine 07/13/18 documented as of this encounter
--- OUTSIDE RECORDS SUMMARY | 2023-10-18 17:27 | External Medical Summary ---
Author Name UNSPECIFIED Address Unknown Organization [facility] History of Encounters Reason for Assessment: Transferred to an inpatient facility - patient not discharged from agency Inpatient Facility where the patient been admitted: Hospital
--- OUTSIDE RECORDS SUMMARY | 2023-10-18 17:27 | External Medical Summary | Summary of Care ---
Author Name Unknown Organization [facility] Address [address] [facility] [place] [address] Phone [phone] Care Team Providers Care Scraper Meat Name Role Phone Endy Stanley DO Primary Care Provider [phone] [phone] Reason for Visit * Reason Onset Date Comments Pre Cert/Prior Auth 09/30/2023 Sertraline Encounter Details Date Type Department Care Team (Late st Contact Info) Description 09/30/2023 Telephone Gastroenterology, [facility] [address] [place] [address] Hilda Calvert DO [address] [place] [address] Pre Cert/Prior Auth (Sertraline) Allergies Active Allergy Reactions Criticality Noted Date Comments Codeine Hives 07/18/2012 Metformin Abdominal pain Low 03/30/2013 documented as of this encounter (statuses as of 10/13/2023) Medications Medication Sig Dispensed Refills Start Date [...] suspected opioid overdose. Seek immediate medical attention. [email or web address] 0 Active Prochlorperazine Maleate 5 MG Oral [...] for each unit 100 mL 4 Active Oxagddyjwn-VQXS-Zuph eine 50-325-40 MG Oral Tablet (Fioricet) TAKE [...] as of this encounter (statuses as of 10/13/2023) Active Problems Problem Noted Date Diagnosed Date [...] as of this encounter (statuses as of 10/13/2023) Resolved Problems Problem Noted Date Diagnosed Date [...] as of this encounter (statuses as of 10/13/2023) Immunizations Name Administration Dates Next Due H1N1 [...] care: Self-administered - route pre-cert request to [id number] Office Information: Prescriber: Dr Hilda Calvert Needs PA for 3 tablets a day. Please assist. Has tried Benadryl cream, Hydrocortisone cream, Atarax, documented in this encounter Plan of Treatment Upcoming Encounters Date Type Department Care Team (Late st Contact Info) Description 11/27/2023 8:40 AM EDT Office Visit Hepatology, [facility] [address] [place] [address] Hilda Calvert, [address] [place] [address] Health Maintenance Due Date Last Done Comments [...] 5:16 PM 10/17/2007 5:01 PM Care Teams Scraper Meat Relationship Specialty Start Date End Date Endy Stanley DO [address] [place] [address] [place] [address] PCP - General Family Medicine 07/13/18 documented as of this encounter
[2023-10-18] MEDS: LACTULOSE SYRUP 30 GM/45 ML UDP PO SCH (18:16)
[2023-10-18] MEDS: rOPINIRole HCL 2 MG TABLET PO SCH (18:16)
[2023-10-18] MEDS: SPIRONOLACTONE 100 MG TAB PO SCH (18:17)
[2023-10-18] MEDS: METOCLOPRAMIDE HCL 10 MG TABLET PO SCH (18:18)
[2023-10-18] MEDS: CALCIUM CARBONATE 500 MG CHEWABLE TAB PO SCH (18:18)
[2023-10-18] MEDS: MIDODRINE HCL 10 MG TAB PO SCH (18:19)
[2023-10-18] MEDS: oxyCODONE HCL IR 5 MG TAB (IMMEDIATE RELEASE) PO SCH (18:22)
[2023-10-18] MEDS: POTASSIUM CHLORIDE 10 MEQ TABCR PO SCH (20:06)
[2023-10-18] MEDS: PANTOprazole 40 MG TAB PO SCH (20:06)
[2023-10-18] MEDS: rifAXIMin 550 MG TABLET PO SCH (20:07)
[2023-10-18] MEDS: SUCRALFATE 1 GM TAB PO SCH (20:08)
[2023-10-19] MEDS: LEVOTHYROXINE SODIUM 25 MCG TABLET PO SCH (03:58)
[2023-10-19] MEDS: LEVOTHYROXINE SODIUM 100 MCG TABLET PO SCH (07:47)
[2023-10-19] MEDS: LINACLOTIDE 145 MCG CAPSULE PO SCH (07:48)
[2023-10-19] MEDS: hydrOXYzine HCl 10 MG TAB PO PRN (07:49)
[2023-10-19] MEDS: MAGNESIUM OXIDE 400 MG TAB PO SCH (07:51)
[2023-10-19] MEDS: CHOLECALCIFEROL 125 MCG (5,000 UNITS) TAB PO SCH (07:52)
[2023-10-19] MEDS: SERTRALINE HCL 50 MG TABLET PO SCH (07:53)
[2023-10-19] MEDS: VENLAFAXINE HCL XR 75 MG CAPXR PO SCH (07:54)
[2023-10-19] MEDS: VENLAFAXINE HCL XR 150 MG CAPXR PO SCH (07:55)
[2023-10-19] MEDS: FAMOTIDINE 40 MG TABLET PO SCH (07:56)
[2023-10-19] MEDS: CALCIUM CARBONATE 500 MG CHEWABLE TAB PO SCH (07:57)
[2023-10-19] MEDS ORDERED: SERTRALINE HCL 50 MG TABLET PO SCH (09:00)
[2023-10-19 09:58] LABS: Albumin Globulin Ratio 1.1 (0.9-2); Albumin Level 3.2 gm/dl (3.4-5.0); BUN Creatinine Ratio 21.2 (10-20); Bilirubin,Total 2.3 mg/dl (0.2-1.0); Creatinine Clr Calc Pharmacy 117.5 ml/min; Est GFR (African American) 126.3 ml/min; Globulin 2.9 gm/dl (2.5-4.0); Potassium 3.2 mmol/L (3.5-5.1); Total Protein 6.1 gm/dl (6.0-8.3)
--- NOTE | 2023-10-19 14:43 | Hospitalist Progress Note ---
Date of Service October 19, 2023 Assessment & Plan (1) Hepatic encephalopathy: Plan: Lactulose 3 times daily scheduled. Continue rifaximin. Daily ammonia levels. Supportive care. Improved (2) Hypokalemia: Plan: Continue replacement. Serial labs (3) Cirrhosis: Plan: Known Dunaway cirrhosis with ascites. No indication for emergent paracentesis at this time. No fever to suggest spontaneous bacterial peritonitis (4) Primary hypothyroidism: Plan: Stable. Continue current thyroid replacement Plan Hopeful discharge to home tomorrow, October 20 Admission and Anticipated Discharge Date Admission Date: October 18, 2023 Subjective Alert and oriented. Ammonia down to 57. Potassium still low at 3.2 and replacement will continue. Hopefully she can go home tomorrow, October 20 Review of Systems 2 Review of Systems: Constitutional-no fever or chills ENT-no blurred vision, no double vision, no epistaxis, no sore throat Respiratory-no cough, no wheezing, no shortness of breath Cardiac-no palpitations, no chest pain, no syncope GI-no nausea, vomiting, diarrhea, melena, hematochezia -no urinary retention, no urinary incontinence, no dysuria, no hematuria Musculoskeletal-no joint pain, no muscle tenderness Skin-no bruising, no rashes, no pruritus Neuro-no isolated weakness, no paresthesia Psych-no depression, no anxiety Physical Exam 2 Physical Exam: General-alert and oriented. No fever, no chills HEENT-head atraumatic and normocephalic, pupils equal and reactive to light, extraocular muscles intact Neck-no lymphadenopathy or thyromegaly, trachea midline Chest-clear to auscultation. No rales, wheezing or rhonchi Cardiac-regular rate and rhythm, normal S1 and S2, no murmurs Abdomen-normal bowel sounds, nontender, no hepatosplenomegaly. Slightly distended with ascites but soft Extremities-no cyanosis, clubbing, or edema Neuro-cranial nerves II through XII intact, motor and sensory function within normal limits, strength symmetrical , no focal deficits Psych-normal affect, normal mood Results & Data Results & Data Vital Signs (Past 12 Hours) Vital Signs Temp Pulse Pulse Resp BP BP Pulse Ox 10/19/23 11:39 36.7 C 78 17 143/78 H 95 10/19/23 08:05 37.0 C 85 18 128/70 95 10/19/23 08:00 85 10/19/23 05:23 37.1 C 85 20 132/78 95 O2 Del Method 10/19/23 11:39 Room Air 10/19/23 08:05 Room Air 10/19/23 08:00 10/19/23 05:23 Room Air Laboratory Results 10/18/23 08:05 10/19/23 06:21 PG Care Time/CCT Total # of Minutes Spent Total Time Spent with Patient: Total time spent is greater than 50% in coordination of care (as documented) at patient's floor/unit and/or counseling patient: Coding Level of Care Code 28219 SUB INP/OBS CARE 3/50MIN Diagnoses Hepatic encephalopathy K76.82 Hypokalemia E87.6 Cirrhosis K74.60 Primary hypothyroidism E03.9
[2023-10-19] MEDS: POTASSIUM CHLORIDE CRTAB 20 MEQ TABCR PO SCH (15:57)
[2023-10-20 06:53] LABS: Albumin Globulin Ratio 1.1 (0.9-2); Albumin Level 3.2 gm/dl (3.4-5.0); BUN Creatinine Ratio 14.9 (10-20); Bilirubin,Total 2.4 mg/dl (0.2-1.0); Calcium 8.9 mg/dl (8.6-10.3); Creatinine Clr Calc Pharmacy 104.8 ml/min; Est GFR (African American) 115.8 ml/min; Est GFR (Non-African American) 99.9 ml/min; Potassium 3.6 mmol/L (3.5-5.1); Total Protein 6.2 gm/dl (6.0-8.3)
--- NOTE | 2023-10-20 11:23 | Discharge Summary ---
Date of Service October 20, 2023 Admission HPI Per Admitting Provider 42-year-old female with recurrent hospitalizations for hepatic encephalopathy. She states she is taking her medications at home but I doubt the validity of that statement. Her ammonia level is 120 and she is encephalopathic. Potassium is slightly low at 3.4. She will be placed in observation status and her medications will be restarted. She has chronic ascites but the abdomen is not tense at this time and there does not appear to be an indication for acute paracentesis. No fever or chills.. Nothing to suggest spontaneous bacterial peritonitis Principal Diagnosis Hepatic encephalopathy Discharge Exam General-alert and oriented. No fever, no chills HEENT-head atraumatic and normocephalic, pupils equal and reactive to light, extraocular muscles intact Neck-no lymphadenopathy or thyromegaly, trachea midline Chest-clear to auscultation. No rales, wheezing or rhonchi Cardiac-regular rate and rhythm, normal S1 and S2, no murmurs Abdomen-normal bowel sounds, nontender, no hepatosplenomegaly. Slightly distended with ascites but soft Extremities-no cyanosis, clubbing, or edema Neuro-cranial nerves II through XII intact, motor and sensory function within normal limits, strength symmetrical , no focal deficits Psych-normal affect, normal mood Discharge Data Allergies Allergy/AdvReac Type Severity Reaction Status Date / Time codeine Allergy Unknown Hives, Verified 10/18/23 09:09 [From Tylenol-Codeine #3] skin redness (Tyenol #3) metformin Allergy Unknown Unknown Unverified 10/18/23 09:09 Consultations 10/18/23 09:15 ED Decision to Admit Stat Hospital Course (1) Hepatic encephalopathy: Lactulose 3 times daily scheduled. Continue rifaximin. Ammonia level is now back to baseline. Mental status is back to baseline. (2) Hypokalemia: Continue replacement. Serial labs (3) Cirrhosis: Known Dunaway cirrhosis with ascites. No indication for emergent paracentesis at this time. No fever to suggest spontaneous bacterial peritonitis (4) Primary hypothyroidism: Stable. Continue current thyroid replacement Plan Home todayOctober 20 Total Time Total Time Spent Total Time Spent (In Minutes): 45 minutes Discharge Plan Discharge Items Patient Disposition: Home - Self-Care Reason For Visit: HEPATIC ENCEPHALOPATHY Discharge Diagnosis: Recurrent hepatic encephalopathy, hypokalemia Activity: Resume your previous activity Non-emergency contact: Primary Care Provider and Rpg Programmer Call non-emergency contact if: your symptoms worsen Follow-up/Referrals: Endy Stanley D.O. [Primary Care Provider] - Diet: Regular Addtl Attending Provider Instructions: Take lactulose and rifaximin as directed to keep ammonia levels Pending Studies at Discharge: No Stand-Alone Forms: [facility], Smoking Cessation Medications and DC Order Prescriptions: Continued ondansetron 8 mg tablet,disintegrating 8 mg translingual Q8 PRN (Reason: Nausea) ropinirole 4 mg tablet 4 mg PO TID valacyclovir 500 mg Tablet 500 mg PO Q8 PRN (Reason: .BREAKOUTS) calcium carbonate-simethicone 500-20 mg Tablet,Chewable 1 tab PO TIDM Qty: 0 Rx Instructions: Unable to verify OTC medication with patient/family at this date/time. triamcinolone acetonide 0.1 % Cream 1 applic EXT TID PRN (Reason: dry, itchy skin on legs/abdominal wall) Qty: 15 0RF Rx Instructions: use for 5 days then stop. Apply in very thin amounts only. Combivent Respimat 20-100 mcg/actuation Mist 1 puff INHALATION QID PRN (Reason: cough/wheeze/shortness of breath) Qty: 1 0RF Rx Instructions: space evenly during waking hours clobetasol 0.05 % solution 1 applic TOPICAL BID PRN (Reason: for scalp) tzqdmscinq-mvwodbxwkuwdc-tnlb 50-325-40 mg tablet 2 tab PO Q6 MDD 8 tablets PRN (Reason: Pain) promethazine [Promethegan] 25 mg suppository 25 mg VA UD PRN (Reason: Nausea) famotidine 40 mg tablet 40 mg PO QAM hydroxyzine HCl 10 mg tablet 10 mg PO TID PRN (Reason: Itching) potassium chloride 10 mEq tablet extended release 10 meq PO BID omeprazole 40 mg Capsule,Delayed Release(Dr/Ec) 40 mg PO BID prochlorperazine maleate 5 mg tablet 5 mg PO QID PRN (Reason: Nausea) venlafaxine [Effexor XR] 150 mg capsule,extended release 24hr 150 mg PO DAILY Qty: 30 1RF Rx Instructions: Take 150mg w/ 75mg to equal 225mg by mouth once daily. venlafaxine [Effexor XR] 75 mg capsule,extended release 24hr 75 mg PO DAILY Qty: 30 1RF Rx Instructions: Take 75mg w/ 150mg to equal 225mg by mouth once daily. tizanidine 4 mg tablet 4 mg PO Q6H PRN (Reason: muscle spasms) sertraline 25 mg tablet 0 mg PO DAILY Rx Instructions: Take 25mg w/ 50mg to equal 75mg by mouth once daily. sertraline 50 mg tablet 0 mg PO DAILY Rx Instructions: Take 50mg w/ 25mg to equal 75mg by mouth once daily. metoclopramide HCl 10 mg tablet 10 mg PO QID midodrine 10 mg tablet 10 mg PO TID Linzess 290 mcg Capsule 0 mcg PO DAILY Hold Instructions: please hold unless Dr Calvert or Dr Stanley ask you to resume it Rx Instructions: Family is unsure if patient is taking this medication or not yet. Original Directions: 290mcg by mouth once daily alprazolam 1 mg tablet 1 mg PO BID PRN (Reason: Anxiety) spironolactone 100 mg tablet 100 mg PO BID Xifaxan 550 mg Tablet 550 mg PO BID Qty: 1 0RF bumetanide 1 mg Tablet 2 mg PO TIDM Qty: 1 0RF lactulose 10 gram/15 mL (15 mL) Solution 30 g PO TID Qty: 1440 0RF Rx Instructions: take twice or three times daily for at least 3 bowel movements each day Naphcon-A 0.025-0.3 % Drops 2 drp ophthalmic (eye) QID PRN (Reason: eye irritation) Qty: 15 0RF polyvinyl alcohol [Artificial Tears (polyvin alc)] 1.4 % Drops 1 drp OPB QID PRN (Reason: dry eye(s)) Qty: 15 0RF levothyroxine [Synthroid] 25 mcg Tablet 25 mcg PO DAILYBB Qty: 1 0RF cholecalciferol (vitamin D3) 125 mcg (5,000 unit) Tablet 125 mcg PO QAM Qty: 1 0RF sucralfate 1 gram tablet 1 g PO BID Qty: 1 0RF Rx Instructions: 1g by mouth twice daily oxycodone 15 mg tablet 15 mg PO Q6H Qty: 1 0RF levothyroxine 100 mcg capsule 300 mcg PO DAILY Qty: 90 0RF Rx Instructions: total daily dose = 325mcg (300mcg + 25mcg) magnesium oxide 400 mg magnesium tablet 400 mg PO DAILY Qty: 30 5RF Discharge Orders: Discharge Order (Routine); Ordered 10/20/23 Ordered By: Ned Park Admission Data Admit Date/Time: 10/18/23 09:45 Attending Provider: Ned Park Admit Provider: Ned Park Primary Care Provider: Endy Stanley Other Providers: Ned Park Other Interventions: Discharge Summary Assessment (RN) Last Done: 10/20/23 10:56 Coding Level of Care Code 83940 INP/OBS DISCH >30 MIN Diagnoses Hepatic encephalopathy K76.82 Hypokalemia E87.6 Cirrhosis K74.60 Primary hypothyroidism E03.9
== END 2023-10-20 12:23 | disposition home health service (06) ==
LOC: ED 07:42 → 2N 07:42

== ENCOUNTER 2023-12-23 09:04 | Observation (INO) ==
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
[2023-12-23 10:21] LABS: Appearance Urine Clear (Clear); Bilirubin Urine Negative (Negative); Blood Urine Negative (Negative); Color Urine Yellow; Glucose Urine UA Negative (Negative); Ketones Urine Negative (Negative); Leukocyte Esterase Urine Negative (Negative); Nitrite Urine Negative (Negative); Protein Urine Negative (Negative); Urobilinogen Urine Negative (Negative); pH Urine 7.5 (4.5-7.5)
[2023-12-23 10:38] LABS: Basophils # (auto) 0.02 K/uL (0.00-0.20); Basophils % (auto) 0.8 %; Eosinophils # (auto) 0.12 K/uL (0.00-0.50); Eosinophils % (auto) 4.6 %; Hematocrit (blood only) 28.5 % (37.0-47.0); Hemoglobin 9.3 g/dl (12.0-16.0); Immature Granulocytes # (auto) 0.01 K/uL (0.01-0.20); Immature Granulocytes % (auto) 0.4 %; Lymphocytes # (auto) 0.29 K/uL (1.20-3.40); Lymphocytes % (auto) 11.1 %; Mean Corpuscular Hemoglobin 28.1 pg (25.0-34.0); Mean Corpuscular Hgb Conc 32.6 g/dL (32.0-36.0); Mean Corpuscular Volume 86.1 fL (80.0-100.0); Mean Platelet Volume 10.5 fL (9.4-12.4); Monocytes # (auto) 0.32 K/uL (0.11-0.59); Monocytes % (auto) 12.2 %; Neutrophils # (auto) 1.86 K/uL (1.40-6.50); Neutrophils % (auto) 70.9 %; Platelet Count 44 K/uL (130-400); RDW Coefficient of Variation 15.5 % (11.5-14.5); RDW Standard Deviation 48.8 fL (36.4-46.3); Red Blood Count 3.31 M/uL (4.20-5.40); White Blood Count 2.62 K/ul (4.8-10.8)
--- NOTE | 2023-12-23 11:15 | XRay Report ---
XR chest 1V portable HISTORY: 43 years-old Female weakness acute weakness COMPARISON: 12/12/2023 TECHNIQUE: AP view of the chest FINDINGS: Cardiomediastinal and hilar silhouettes are within normal limits. No pneumothorax, pleural effusion o r airspace consolidation. The bones appear intact. Cholecystectomy. Cervical spinal fusion hardware. IMPRESSION: No acute process. ACT 112: Negative or not required by law. The above report was generated using voice recognition software. It may contain grammatical, syntax o r spelling errors. Electronically signed by: Lorenzo Ocampo M.D. 12/23/2023 11:14 AM
--- NOTE | 2023-12-23 11:19 | CT Scan Report ---
CT SCAN OF THE BRAIN WITHOUT IV CONTRAST CLINICAL HISTORY: Change in mental status COMPARISON STUDY: CT of the brain dated 07/21/2023. TECHNIQUE: Unenhanced axial CT scan of the brain is performed from the vertex to the skull base. A d ose lowering technique was utilized adhering to the principles of ALARA. CT DOSE: 625.8 mGy.cm FINDINGS: Brain parenchyma: The brain parenchyma is normal in appearance. There is no hemorrhage, mass effect, or evidence of acute territorial ischemia by CT criteria. Hyatt-white matter differentiation is preser chester. No extra-axial fluid collection is seen. Ventricles, sulci, cisterns: Normal in configuration. Intracranial vasculature: The visualized intracranial vasculature at the skull base is normal in appe arance. Calvarium: Unremarkable. Sinuses and mastoids: The visualized paranasal sinuses are clear. The mastoid air cells are well pneu matized. Orbits: The bony orbits are grossly intact. IMPRESSION: No acute intracranial abnormality. ACT 112: Negative or not required by law. Electronically signed by: Davide Vines M.D. 12/23/2023 11:18 AM
[2023-12-23 11:26] LABS: INR 1.3 (0.9-1.1); Partial Thromboplastin Time 29 Seconds (21-31)
[2023-12-23 11:33] LABS: Albumin Globulin Ratio 1.3 (0.9-2); Albumin Level 3.6 gm/dl (3.4-5.0); Bilirubin,Total 1.6 mg/dl (0.2-1.0); Calcium 9.3 mg/dl (8.6-10.3); Creatinine Clr Calc Pharmacy 125.3 ml/min; Est GFR (African American) 127.3 ml/min; Est GFR (Non-African American) 109.9 ml/min; Globulin 2.8 gm/dl (2.5-4.0); Magnesium 1.8 mg/dl (1.7-2.4); Potassium 3.4 mmol/L (3.5-5.1); Total Protein 6.4 gm/dl (6.0-8.3)
[2023-12-23 11:36] LABS: Troponin I High Sensitivity 2.7 pg/ml (0-14)
[2023-12-23 11:46] LABS: Thyroid Stimulating Hormone 3.129 uIu/ml (0.300-4.500)
[2023-12-23] MEDS: LACTULOSE SYRUP 20 GM/30 ML UDC PO STA (11:54)
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
[2023-12-23] MEDS ORDERED: DEXTROSE 50% 50 ML SYRINGE IV PRN (13:16)
[2023-12-23] MEDS ORDERED: GLUCOSE 10 TAB/TUBE PO PRN (13:16)
[2023-12-23] MEDS ORDERED: GLUCOSE 40% GEL 15 GM TUBE PO PRN (13:16)
[2023-12-23] MEDS ORDERED: CARBOHYDRATES FOR HYPOGLYCEMIA PO PRN (13:16)
[2023-12-23] MEDS ORDERED: GLUCAGON FOR INJ 1 MG VIAL SQ PRN (13:16)
[2023-12-23] MEDS: POTASSIUM CHLORIDE CRTAB 20 MEQ TABCR PO STA (13:40)
[2023-12-23] MEDS: ACETAMINOPHEN 325 MG TAB PO STA (13:40)
[2023-12-23] MEDS: SPIRONOLACTONE 100 MG TAB PO STA (13:41)
[2023-12-23] MEDS: MAGNESIUM SULFATE / D5W 1 GM/100 ML BAG IV SCH (13:42)
--- OUTSIDE RECORDS SUMMARY | 2023-12-23 15:32 | External Medical Summary | Summary of Care ---
Author Name Unknown Organization [facility] Address [address] [place] [address] Phone [phone] Care Team Providers Care Nutrition Coordinator Name Role Phone Lizeth Endy Mora DO Primary Care Provider [phone] Encounter Details Date Type Department Care Team (Latest Contact Info) Description 12/17/2023 11:21 AM EDT - 12/17/2023 11:59 PM EDT Hospital Encounter Radiology Film File [address] [place] [address] Arrived Discharge Disposition: Home - Self Care Allergies Active Allergy Reactions Criticality Noted Date Comments Codeine Hives 07/18/2012 Metformin Abdominal pain Low 03/30/2013 documented as of this encounter (statuses as of 12/18/2023) Medications Medication Sig Dispensed Refills Start Date [...] Oral Capsule Extended Release 24 Hour Take 1 Capsule by mouth in the morning. Do not [...] suspected opioid overdose. Seek immediate medical attention. [email or web address] Active Prochlorperazine Maleate 5 MG Oral [...] the skin in the morning. 0 Active Omeprazole 40 MG Oral Capsule Delayed [...] and 1 Tablet before bedtime. 0 Active Cboxprkhqs-YKIY-Oeefb ine 50-325-40 MG Oral Tablet (Fioricet) TAKE [...] before bedtime. 180 Tablet 3 09/24/2023 Active Midodrine HCl 10 MG Oral Tablet (Proamatine) Take 0.5 Tablets by mouth in the morning and 0.5 Tablets at noon and 0.5 Tablets before bedtime. Instructed to take 5mg if systolic blood pressure below 140. 0 09/09/2023 Active Levothyroxine Sodium 25 MCG Oral Tablet (Levoxyl) Take 1 Tablet by mouth in the morning. 0 09/09/2023 Active Sertraline HCl 50 MG Oral Tablet (Zoloft) Take 1 Tablet by mouth in the morning. 90 Tablet 0 10/03/2023 Active Sertraline HCl 25 MG Oral Tablet (Zoloft) Take 1 Tablet by mouth in the morning. Take with 50 mg dose to = 75 mg daily.. 90 Tablet 1 10/03/2023 Active Spironolactone 100 MG Oral Tablet (Aldactone)Indication s: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),Splenic vein thrombosis TAKE 1 TABLET BY MOUTH IN THE MORNING AND BEFORE BEDTIME 180 Tablet 1 10/28/2023 Active Clobetasol Propionate 0.05 % External Solution apply to the scalp 1-2 times daily as needed 50 mL 2 11/24/2023 Active Venlafaxine HCl 75 MG Oral Tablet (Effexor) Take 1 Tablet by mouth in the [...] 60 minutes for each unit 100 mL 12/10/2023 Active Albumin Human 25 % Intravenous Solution Please give 100 ml of Albumin pre- paracentesis, up to twice weekly. 100 mL 52 12/10/2023 Active documented as of this encounter (statuses as of 12/18/2023) Active Problems Problem Noted Date Diagnosed Date [...] as of this encounter (statuses as of 12/18/2023) Resolved Problems Problem Noted Date Diagnosed Date [...] as of this encounter (statuses as of 12/18/2023) Immunizations Name Administration Dates Next Due H1N1 [...] Upcoming Encounters Date Type Department Care Team ([facility] st Contact Info) Description 02/16/2024 9:00 AM EDT Laboratory Laboratory, [place] [address] [place] [address] [place], Laboratory [address] [facility], [place] [address] 02/23/2024 10:30 AM EDT Office Visit Hematology/Oncology Joshua [facility] [place] [address] [facility] [place] [phone] Sandra Evans MD [address] [facility] [place] [address] 08/03/2024 4:00 PM EST Office Visit Dermatology [facility] [address] [place] [phone] Saran Knutson PA-C [address] [place] [id number] Health Maintenance Due Date Last Done Comments Diabetic Eye Exam 1998 Hepatitis B (1 of 3 - 19+ 3-dose series) 12/09/1999 HPV/Co-Test 2010 Cervical Cancer Screening 09/08/2011 Pap Smear 09/08/2011 09/08/2008, 07/25, 01/13/2006, Additional history exists Albumin/Creatinine Ratio 11/25/2015 11/24/2014, 02/2013 Diabetic Foot Exam 05/14/2018 05/14/2017, 0 11/15/2015, 12/23/2014 DTaP,Tdap,and Td Vaccines (2 - Td or Tdap) 05/18/2019 05/18/2009 B-12 08/19/2019 08/19/2018 Mammogram 2020 HbA1c 03/01/2024 09/01/2023, 12/23, 01/23/2022, Additional history exists TSH 09/01/2024 09/01/2023, 04/26, 12/19/2016, Additional history exists GFR 12/15/2024 12/16/2023, 11/24, 12/12/2023, Additional history exists Lipid Panel 10/23/2028 10/24/2023, 03/2024, 03/05/2017, Additional history exists Pneumococcal Vaccine: Pediatrics (0 to 5 Years) and At-Risk Patients (6 to 64 Years) Completed 06/04/2022, 07/04/2020 Influenza Vaccine (FLU shot) Completed , 05/09/2023, 07/04/2020, Additional history exists COVID-19 Vaccine Completed 11/05/2023, 03/2022, 01/23/2022, Additional history exists GARDASIL-HPV IMMUNIZATION SERIES Aged Out No longer eligible based on patient's age to complete this topic MENINGOCOCCAL (MENACTRA/MENVEO) Aged Out No longer eligible based on patient's age to complete this topic documented as of this encounter Medical Devices Not on filedocumented as of this encounter Procedures Procedure Name Priority Date/Time Associated Diagnosis Comments DERM EXAM - DERM (IMAGES ONLY, NO REPORT) Routine 12/17/2023 11:21 AM EDT documented in this encounter Results * DERM EXAM - DERM (IMAGES ONLY, NO REPORT) (12/17/2023 11:21 AM EDT) Narrative Scheduling, Silent - 12/17/2023 11:21 AM EDT This is an imaging study not interpreted or resulted by a [facility] or [facility] contracted radiologist. Saran Knutson PA-C RADIOLOGY ([facility]) documented in this encounter Advance Directives Latest Code Status on File Code Status Date Activated Date Inactivated Comments Full Code 10/15/2007 5:16 PM 10/17/2007 5:01 PM Care Teams Nutrition Coordinator Relationship Specialty Start Date End Date Endy Stanley DO [address] [address] [place] [address] PCP - General Family Medicine 07/13/18 documented as of this encounter
--- OUTSIDE RECORDS SUMMARY | 2023-12-23 15:32 | External Medical Summary | Summary of Care ---
Author Name Unknown Organization [facility] Address [address] [facility] [address] Phone [phone] Care Team Providers Care Presentation Team Member Name Role Phone Endy Stanley DO Primary Care Provider [phone] Reason for Referral * Evaluate & Treat - Unlimited Visits (Within 30 days (routine)) - Authorized Specialty Diagnoses / Procedures Referred By Contarash t Referred To Contact Plastic Surgery Diagnoses Epidermoid cyst Kimmie Knutson PA-C [address] [place] [phone] [facility] [address] [place] [phone] Referral ID Status Reason Start Date Expiration Date Visits Requested Visits Authorized [id number] Authorized Specialty Services Required 12/18/[phone] Question Answer Referral Priority Within 30 days (routine) Where should this appointment be scheduled? External What condition is the patient being seen for? Lesion /Mole Comments Current Patient BMI: There is no height or weight on file to calculate BMI. Cyst- R cheek Reason for Visit * Reason Onset Date Comments Fax 12/16/2023 Encounter Details Date Type Department Care Team ([facility] Contact Info) Description 12/16/2023 Telephone Dermatology [facility] [address] [place] [address] Kimmie Knutson PA-C [address] [place] [address] [phone] Fax Allergies Active Allergy Reactions Criticality Noted Date Comments Codeine Hives 07/18/2012 Metformin Abdominal pain Low 03/30/2013 documented as of this encounter (statuses as of 12/22/2023) Medications Medication Sig Dispensed Refills Start Date [...] suspected opioid overdose. Seek immediate medical attention. [email or web address] 0 Active Prochlorperazine Maleate 5 MG Oral [...] and 1 Tablet before bedtime. 0 Active Ecuthuftjm-JEUP-Nldym ine 50-325-40 MG Oral Tablet (Fioricet) TAKE [...] as of this encounter (statuses as of 12/22/2023) Active Problems Problem Noted Date Diagnosed Date [...] as of this encounter (statuses as of 12/22/2023) Resolved Problems Problem Noted Date Diagnosed Date [...] of cervix (uteri) 04/24/2004 05/14/2017 Overview: LG 9/, Leep 12/26 and 07/30 [...] as of this encounter (statuses as of 12/22/2023) Immunizations Name Administration Dates Next Due H1N1 2009 Influenza, IM 06/28/2009 PPD 07/13/2001 Seasonal Influenza, Split, I IV3, With Preserve, Inj 05/09/2023,05/25/2016,06/08/2015, 0 12,05/10/2009 TDAP (age 11 and older)(Adacel) 05/18/20,09/12/2008(Deferred: Patient Refused) documented as of this encounter [...] encounter Miscellaneous Notes * Telephone Encounter - Nerissa Alexander LPN - 12/22/2023 9:21 AM EDT Faxed this AM. Got busy signal. Faxed again. * Addendum Note - Kimmie Knutson PA-C - 12/18/2023 7:26 AM EDTAddended by: KIMMIE KNUTSON on: 12/18/2023 07:26 AM Modules accepted: Orders * Telephone Encounter - Kimmie Kntuson PA-C - 12/18/2023 7:19 AM EDT Noted. Kimmie Knutson PA-C * Telephone Encounter - Leena Bajwa OSA - 12/17/2023 1:41 PM EDT Pt was wondering if the referral for plastics can be ordered along with the pathology report and office notes. She has an appt with Wilfredo Truong * Telephone Encounter - Nerissa Alexander LPN - 12/16/2023 2:43 PM EDT Patient scheduled. * Telephone Encounter - Kimmie Knutson PA-C - 12/16/2023 1:02 PM EDT Received message from patient to help schedule appointment to evaluate a lump on the face. Please help schedule appt Kimmie Knutson PA-C documented in this encounter Plan of Treatment Upcoming Encounters Date Type Department Care Team (Late st Contact Info) Description 02/16/2024 9:00 AM EDT Laboratory Laboratory, [place] [address] [place] [facility] [place] [address] [facility] [address] [place] [address] 02/23/2024 10:30 AM EDT Office Visit Hematology/Oncology [facility] [place] [address] [place] [phone] Sandra Evans MD [address] [place] [address] 08/03/2024 4:00 PM EST Office Visit Dermatology [facility] [address] [place] [address] Kimmie Knutson PA-C [address] [place] [address] Scheduled Referrals Name Type Priority Associated Diagnoses Orde r Schedule PLASTIC SURGERY REFERRAL OP Referral Within 30 days (routine) Epidermoid cyst Ordered: 12/18/2023 Health Maintenance Due Date Last Done Comments [...] as of this encounter Visit Diagnoses Diagnosis Epidermoid cyst- Primary Sebaceous cyst documented in this encounter Advance Directives Latest Code Status on File Code Status Date Activated Date Inactivated Comments Full Code 10/15/2007 5:16 PM 10/17/2007 5:01 PM Care Teams Presentation Team Member Relationship Specialty Start Date End Date Endy Stanley DO [address] [place] [address] [place] [address] PCP - General Family Medicine 07/13/18 documented as of this encounter
--- OUTSIDE RECORDS SUMMARY | 2023-12-23 15:32 | External Medical Summary | Summary of Care ---
Author Name Unknown Organization [facility] Address [address] [facility] [address] Phone [phone] Care Team Providers Care Correctional Supervisor Lieutenant Name Role Phone Endy Smith DO Primary Care Provider [phone] Reason for Visit * Reason Comments Lesion Patient presents tod ay for cyst on R cheek getting longer. Encounter Details Date Type Department Care Team ([facility] Contact Info) Description 12/17/2023 11:20 AM EDT Office [facility] [address] [place] [address] Saran Knutson PA-C [address] [place] [address] Epidermoid cyst*; Pruritus Allergies Active Allergy Reactions Criticality Noted Date [...] suspected opioid overdose. Seek immediate medical attention. [email or web address] 0 Active Prochlorperazine Maleate 5 MG Oral [...] and 1 Tablet before bedtime. 0 Active Grplbuygby-JSUW-Nufrs ine 50-325-40 MG Oral Tablet (Fioricet) TAKE [...] as of this encounter Progress Notes * Magdy Real MD - 12/18/2023 10:27 AM EDT I have seen and examined via teledermatology review of chart note and photos the patient with Saran Knutson PA-C. I have reviewed and agree with the assessment and plan. Magdy Real MD * Saran Knutson PA-C - 12/17/2023 11:20 AM EDT SUBJECTIVE: History of Present Illness: Niesha Gutiérrez is a 43 year old female seen today for evaluation of a lump on the R cheek. Patient notes the lump has been present the past 6 months. Enlarging. Hx decompensated GILLESPIE/cirrhosis. Ontransplant list. Notes she has been itchy on the arms, legs and abdomen. 02/22/2021 (in office) REVIEW OF SYSTEMS: SKIN: No other new or changing moles. HEME/LYMPH: No new or enlarging lumps or bumps. CONSTITUTIONAL: No nausea, vomiting, fevers, chills, diarrhea. No recent unintended weight loss, night sweats, appetite or malaise. SKIN CANCER HX: none MEDICA TIONS: Current Outpatient Medications Medication Sig Dispense Refill ONETOUCH ULTRASOFT LANCETS [facility] use as directed [address] TRETINOIN [...] the morning. (Patient not taking: Reported on 11/27/2023) famotidine (PEPCID) 20 MG Tablet Take 1 [...] suspected opioid overdose. Seek immediate medical attention. https://www.youtube.com/watch?v=[email or web address] (Patient not taking: Reported on 11/27/2023) Prochlorperazine Maleate 5 MG Oral Tablet (Compazine) [...] Suppository into the rectum daily as needed. (Patient not taking: Reported on 11/27/2023) oxyCODONE HCl 10 MG/0.5ML Oral Concentrate Take [...] the morning. (Patient not taking: Reported on 11/27/2023) Omeprazole 40 MG Oral Capsule Delayed Release (PriLOSEC) Take 1 Capsule by mouth in the morning. Bumetanide 1 MG Oral Tablet Take 2 Tablets by mouth in the morning and 2 Tablets before bedtime. 180 Tablet 1 Klor-Con 20 MEQ Oral Packet Take 20 mEq by mouth in the morning and 20 mEq before bedtime. (Patientnot taking: Reported on 11/27/2023) Levothyroxine Sodium 300 MCG Oral Tablet Take [...] morning and 1 Tablet before bedtime. (Patient not taking: Reported on 11/27/2023) Tpqewfxxbm-JIAD-Jqzfqhnk 50-325-40 MG Oral Tablet (Fioricet) TAKE 2 [...] 1 Tablet before bedtime. 180 Tablet 3 Midodrine HCl 10 MG Oral Tablet (Proamatine) Take 0.5 Tablets by mouth in the morning and 0.5 Tablets at noon and 0.5 Tablets before bedtime. Instructed to take 5mg if systolic blood pressure below 140. Levothyroxine Sodium 25 MCG Oral Tablet (Levoxyl) Take 1 Tablet by mouth in the morning. (Patient not taking: Reported on 11/27/2023) Sertraline HCl 50 MG Oral Tablet (Zoloft) Take 1 Tablet by mouth in the morning. 90 Tablet 0 Sertraline HCl 25 MG Oral Tablet (Zoloft) Take 1 Tablet by mouth in the morning. Take with 50 mg dose to = 75 mg daily.. 90 Tablet 1 Spironolactone 100 MG Oral Tablet (Aldactone) TAKE 1 TABLET BY MOUTH IN THE MORNING AND BEFORE BEDTIME 180 Tablet 1 Clobetasol Propionate 0.05 % External Solution apply to the scalp 1-2 times daily as needed 50 mL 2 Venlafaxine HCl 75 MG Oral Tablet (Effexor) Take 1 Tablet by mouth in the morning and 1 Tablet before bedtime. Albumin Human 25 % Intravenous Solution If [...] minutes for each unit 100 mL 99 Albumin Human 25 % Intravenous Solution Please give 100 ml of Albumin pre- paracentesis, up to twice weekly. 100 mL 52 No current facility-administered medications for this visit. ALLERG IES: Codeine and Metformin OBJECT TOMÁS: GEN: Healthy, alert, no distress, appears oriented, pleasant, and cooperative. SKIN: Detailed exam of face including lids and lips completed and are normal except: A. R cheek with a skin colored subcutaneous firm nodule ASSESS MENT/PLAN: A. Epidermoid cyst- discussed options for removal: excision v punch bx/drainage. Opted for punch bx/drainage. May consider excision in the future as recurrence of likely. The procedure, risks including but not limited to; (scarring, bleeding, infection, pain, and bruising), benefits, alternatives and expected outcomes were discussed with the patient, and pt. electronically signed the consent form. Time out called. Patient identified, procedure verified, site identified and verified immediately prior to procedure. Area prepped with alcohol. Anesthesia with using 0.5% lidocaine with epinephrine at 1:200,000 concentration and a 2mm then opened to a 3mm punch biopsywas performed. White keratinized contents expressed. Hemostasis was obtained with pressure/gel foam.The area was covered with a pressure dressing, and post-op instructions were given. Patient tolerated the procedure well without complication and will be contacted with the pathology. Discussed risk of postoperative bruising B. Hx GILLESPIE/cirrhosis and on transplant list. Following with hepatology and transplant clinic -discussed the need for skin checks after transplant due to increased risk of skin cancer. -pruritus- likely related to liver disease. Can apply triamcinolone twice daily for 1-2 weeks as needed for itching. SER -can apply Cerave with pramoxine (samples given) -call/send a message with questions/concerns Follow-up: will adjust with lab/path results Patient alone today. Photo(s) taken, pt verbally consented to having photo(s) taken. Contact patient via cell phone Ok to leave results on message: Yes Patient Phone Numbers Applicable photos (if any) and chart reviewed by Dr. Magdy Real Presumed diagnoses, expected natural histories, and management options discussed with the patient at length. Questions were addressed and anticipatory guidance provided. They were instructed to contact me if additional questions, concerns, or problems develop in the interim. -There were no barriers to learning and no other pain was related to today's visit. The patient and/or person accompanying patient demonstrates understanding of the visit and treatment. Ivis Knutson PA-C 12/17/2023 11:20 AM Ref: SELF[[id number]] NO STREET ADDRESS AVAILABLE None (office) None (fax) PCP: ENDY SMITH [address] [place] [address] [place] [address] documented in this encounter Nursing Notes * Nerissa Alexander LPN - 12/17/2023 11:19 AM EDT Patient identified by name and date. Chief Complaint Patient presents with Lesion Patient presents today for cyst on R cheek getting longer. documented in this encounter Miscellaneous Notes * Result Encounter Note - Nerissa Alexander LPN - 12/22/2023 8:20 AM EDT Faxed office note, biopsy results, referral to Shobha at [phone]. * Result Encounter Note - Saran Knutson PA-C - 12/19/2023 1:03 PM EDT A. Skin, R cheek, cyst, excision: Laminated keratin consistent with contents of a benign epidermoid cyst. Message sent with results Saran Knutson PA-C documented in this encounter Plan of Treatment Upcoming Encounters Date Type Department Care Team (Late st Contact Info) Description 02/16/2024 9:00 AM EDT Laboratory Laboratory, [place] [address] [place] [address] [place] [address] [place] [address] 02/23/2024 10:30 AM EDT Office Visit Hematology/Oncology [place] [address] [place] [address] Sandra Evans MD [address] [place] [address] 08/03/2024 4:00 PM EST Office Visit Dermatology [address] [phone] Saran Knutson PA-C [address] [place] [address] Health Maintenance Due Date Last Done Comments [...] Procedure Name Priority Date/Time Associated Diagnosis Comments SURGICAL PATHOLOGY Routine 12/17/2023 11 :54 AM EDT DERM EXAM - DERM (IMAGES ONLY, NO REPORT) Routine 12/17/2023 11:21 AM EDT documented in this encounter Results * SURGICAL PATHOLOGY (12/17/2023 11:54 AM EDT) Final Diagnosis A. Skin, R cheek, cyst, excision: Laminated keratin consistent with contents of a benign epidermoid cyst. 12/19/2023 10:48 AM EDT LABORATORY [facility] Clinical History See Order Comments 12/19/2023 10:48 AM EDT LABORATORY [facility] Order Comments A. Favor epidermoid cyst 12/19/2023 10:48 AM EDT LABORATORY [facility] Gross Description A. Skin. Received in formalin with a container labeled with "Niesha Conleygler", "[id number]", "1980" and " right cheek". Received are multiple white-rios, soft, shaggy fragments of possible ruptured cyst like material measuring 1.5 cm in aggregate. There is no grossly identifiable skin present. Fragments are wrapped in lens paper and submitted entirely in cassette A1. Gross By: MF 12/19/2023 10:48 AM EDT LABORATORY [facility] Sign Out Location Pathologist sign out performed at [facility] ([facility]), [address] [place] [address]. 12/19/2023 10:48 AM EDT LABORATORY [facility] Photographic images and diagrams represent norton findings in this case; they are not intended to replace a complete review of the final diagnostic report. The following statement applies to Flow Cytometry, Histology, In situ Hybridization Assays and Molecular Genetics. This test was developed and performed at [facility] and its performance characteristics determined by [facility]. It has not been cleared or approved by the U.S. Food and Drug Administration. The FDA has determined that such clearance or approval is not necessary. This test is used for clinical purposes. It should not be regarded as investigational or for research. Special stains, including histochemical stains, and studies using immunologic and TRAE methodology (where applicable) are performed with appropriate positive and negative control reactions. 12/19/2023 10:48 AM EDT LABORATORY [facility] Tissue Skin structure / Unknown 12/17/2023 11:54 AM EDT 12/17/2023 11:54 AM EDT Comment:A. Favor epidermoid cyst Saran Knutson PA-C LAB PATHOLOGY ORDER INES LABORATORY [facility] [address] [place] [address] * DERM EXAM - DERM (IMAGES ONLY, NO REPORT) (12/17/2023 11:21 AM EDT) Narrative Scheduling, Silent - 12/17/2023 11:21 AM EDT This is an imaging study not interpreted or resulted by a [facility] or [facility] contracted radiologist. Saran Knutson PA-C RADIOLOGY ([facility]) documented in this encounter Visit Diagnoses Diagnosis Epidermoid cyst- Primary Sebaceous cyst Pruritus Unspecified pruritic disorder documented in this encounter Advance Directives Latest Code Status on File Code Status Date Activated Date Inactivated Comments Full Code 10/15/2007 5:16 PM 10/17/2007 5:01 PM Care Teams Correctional Supervisor Lieutenant Relationship Specialty Start Date End Date Endy Smith DO [address] [place] [address] PCP - General Family Medicine 07/13/18 documented as of this encounter
--- OUTSIDE RECORDS SUMMARY | 2023-12-23 15:33 | External Medical Summary | Summary of Care ---
Author Name Unknown Organization [facility] Address [address] [facility] [address] Phone [phone] Care Team Providers Care Pet Resort Concierge Name Role Phone Endy Stanley DO Primary Care Provider [phone] Reason for Referral * Evaluate & Treat - Unlimited Visits (Within 30 days (routine)) - Authorized Specialty Diagnoses / Procedures Referred By Contarash t Referred To Contact Plastic Surgery Diagnoses Epidermoid cyst Saran Knutson PA-C [address] [place] [address] [facility] [address] [place] [address] Referral ID Status Reason Start Date Expiration Date Visits Requested Visits Authorized [id number] Authorized Specialty Services Required 12/18/[phone] Question Answer Referral Priority Within 30 days (routine) Where should this appointment be scheduled? External What condition is the patient being seen for? Lesion /Mole Comments Current Patient BMI: There is no height or weight on file to calculate BMI. Cyst- R cheek Reason for Visit * Reason Onset Date Comments Fax 12/16/2023 Encounter Details Date Type Department Care Team ([facility] Contact Info) Description 12/16/2023 Telephone Dermatology [facility] [address] [place] [address] Saran Knutson PA-C [address] [place] [address] [phone] Fax Allergies Active Allergy Reactions Criticality Noted [...] suspected opioid overdose. Seek immediate medical attention. [email or web address] 0 Active Prochlorperazine Maleate 5 MG Oral [...] and 1 Tablet before bedtime. 0 Active Vjmdufhkgr-IUVU-Kcwgi ine 50-325-40 MG Oral Tablet (Fioricet) TAKE [...] encounter Miscellaneous Notes * Addendum Note - Saran Knutson PA-C - 12/18/2023 7:26 AM EDTAddended by: SARAN KNUTSON on: 12/18/2023 07:26 AM Modules accepted: Orders * Telephone Encounter - Saran Knutson PA-C - 12/18/2023 7:19 AM EDT Noted. Saran Knutson PA-C * Telephone Encounter - Leena Bajwa OSA - 12/17/2023 1:41 PM EDT Pt was wondering if the referral for plastics can be ordered along with the pathology report and office notes. She has an appt with Wilfredo Truong * Telephone Encounter - Nerissa Alexander LPN - 12/16/2023 2:43 PM EDT Patient scheduled. * Telephone Encounter - Saran Knutson PA-C - 12/16/2023 1:02 PM EDT Received message from patient to help schedule appointment to evaluate a lump on the face. Please help schedule appt Saran Knutson PA-C documented in this encounter Plan of Treatment Upcoming Encounters Date Type Department Care Team (Late st Contact Info) Description 02/16/2024 9:00 AM EDT Laboratory Laboratory, [place] [address] [place] [address] [place] [address] [place] [address] 02/23/2024 10:30 AM EDT Office Visit Hematology/Oncology [place] [place] [address] [place] [address] Sandra Evans MD [address] [place] [address] 08/03/2024 4:00 PM EST Office Visit Dermatology [facility] [address] [place] [address] Saran Knutson PA-C [address] [place] [address] Scheduled Referrals Name Type Priority Associated Diagnoses [...] 5:16 PM 10/17/2007 5:01 PM Care Teams Pet Resort Concierge Relationship Specialty Start Date End Date Endy Stanley DO [address] [facility] [address] [place] [address] PCP - General Family Medicine 07/13/18 documented as of this encounter
--- OUTSIDE RECORDS SUMMARY | 2023-12-23 15:33 | External Medical Summary | Summary of Care ---
Author Name Unknown Organization [facility] Address [address] [place] [facility] [place] [address] Phone [phone] Care Team Providers Care Assistant Teacher Name Role Phone Endy Stanley DO Primary Care Provider [phone] Reason for Visit * Reason Onset Date Comments Fax 12/16/2023 Encounter Details Date Type Department Care Team ([facility] Contact Info) Description 12/16/2023 Telephone Dermatology [facility] [address] [place] [address] Saran Knutson PA-C [address] [place] [address] [phone] Fax Allergies Active Allergy Reactions Criticality Noted Date Comments Codeine Hives 07/18/2012 Metformin Abdominal pain Low 03/30/2013 documented as of this encounter (statuses as of 12/17/2023) Medications Medication Sig Dispensed Refills Start Date [...] suspected opioid overdose. Seek immediate medical attention. [email or web address] 0 Active Prochlorperazine Maleate 5 MG Oral [...] and 1 Tablet before bedtime. 0 Active Szmzpznoeg-HANX-Ngxld ine 50-325-40 MG Oral Tablet (Fioricet) TAKE [...] as of this encounter (statuses as of 12/17/2023) Active Problems Problem Noted Date Diagnosed Date [...] as of this encounter (statuses as of 12/17/2023) Resolved Problems Problem Noted Date Diagnosed Date [...] as of this encounter (statuses as of 12/17/2023) Immunizations Name Administration Dates Next Due H1N1 [...] encounter Miscellaneous Notes * Telephone Encounter - Leena Bajwa OSA [...] Description 02/16/2024 9:00 AM EDT [facility] [place] [address] [facility] [phone] [facility] [address] [place] [address] 02/23/2024 10:30 AM EDT Office Visit Hematology/Oncology [facility] [place] [address] [facility] [place], [place] [phone] Sandra Evans MD [address] [facility] [place] [address] 08/03/2024 4:00 PM EST Office Visit Dermatology [facility] [address] [place] [phone] Saran Knutson PA-C [address] [place] [address] Health Maintenance Due Date Last Done Comments [...] 5:16 PM 10/17/2007 5:01 PM Care Teams Assistant Teacher Relationship Specialty Start Date End Date Endy Stanley DO [address] [place] [address] [place] [address] PCP - General Family Medicine 07/13/18 documented as of this encounter
--- OUTSIDE RECORDS SUMMARY | 2023-12-23 15:33 | External Medical Summary | Summary of Care ---
Author Name Unknown Organization [facility] Address [address] [facility] [address] Phone [phone] Care Team Providers Care Warehouse Team Member Name Role Phone Endy Smith DO Primary Care Provider +1 [phone] Reason for Visit * Reason Comments Lesion Patient presents tod ay for cyst on R cheek getting longer. Encounter Details Date Type Department Care Team ([facility] Contact Info) Description 12/17/2023 11:20 AM EDT Office Visit Dermatology [facility] [address] [place] [address] Saran Knutson PA-C [address] [place] [address] Epidermoid cyst*; Pruritus Allergies Active Allergy Reactions [...] suspected opioid overdose. Seek immediate medical attention. https://www.Actus Interactive Softwareu Curb (R[email or web address]com/watch?v=v2 [email or web address] 0 Active Prochlorperazine Maleate 5 MG Oral [...] and 1 Tablet before bedtime. 0 Active Mhoorjuyif-BAQN-Nfekm ine 50-325-40 MG Oral Tablet (Fioricet) TAKE [...] Medication Sig Dispense Refill ONETOUCH ULTRASOFT LANCETS [facility] use as directed [address] TRETINOIN [...] suspected opioid overdose. Seek immediate medical attention. https://www.youtube.com/watch?v=d77yPtg2StI (Patient not taking: Reported on 11/27/2023) Prochlorperazine [...] bedtime. (Patient not taking: Reported on 11/27/2023) Yqoxofonhd-VVNI-Mtvbuqow 50-325-40 MG Oral Tablet (Fioricet) TAKE 2 [...] Ivis Knutson PA-C 12/17/2023 11:20 AM Ref: SELF[[id number]] NO STREET ADDRESS AVAILABLE None (office) None (fax) PCP: ENDY SMITH [address] [place] [address] [place] [address] documented in this encounter Nursing Notes * Nerissa Alexander LPN - 12/17/2023 11:19 AM EDT Patient identified by name and date. Chief Complaint Patient presents with Lesion Patient presents today for cyst on R cheek getting longer. documented in this encounter Plan of Treatment Upcoming Encounters Date Type Department Care Team (Late st Contact Info) Description 02/16/2024 9:00 AM EDT Laboratory Laboratory, [place] [address] [place] [facility] [place] [address] [facility] Laboratory [address] [place] [address] 02/23/2024 10:30 AM EDT Office Visit Hematology/Oncology [place] [address] [facility] [place] [address] Sandra Evans MD [address] [place] [address] 08/03/2024 4:00 PM EST Office Visit Dermatology [facility] [address] [place] [address] Saran Knutson PA-C [address] [place] [address] Pending Results Name Type Priority Associated Diagnoses Date /Time SURGICAL PATHOLOGY Pathology Routine 2023 11:54 AM EDT Health Maintenance Due Date Last Done Comments Diabetic Eye Exam 1998 Hepatitis B (1 of 3 - 19+ 3-dose series) 12/09/1999 HPV/Co-Test 2010 Cervical Cancer Screening 09/08/2011 Pap Smear 09/08/2011 09/08/2008, 07/25, 01/13/2006, Additional history exists Albumin/Creatinine Ratio 11/25/2015 11/24/2014, 0802/2013 Diabetic Foot Exam 05/14/2018 05/14/2017, 0 11/15/2015, [...] interpreted or resulted by a [facility] or [facility] contracted radiologist. Saran Knutson PA-C RADIOLOGY ([facility]) documented in this encounter Visit Diagnoses Diagnosis Epidermoid cyst- Primary Sebaceous cyst Pruritus Unspecified pruritic disorder documented in this encounter Advance Directives Latest Code Status on File Code Status Date Activated Date Inactivated Comments Full Code 10/15/2007 5:16 PM 10/17/2007 5:01 PM Care Teams Warehouse Team Member Relationship Specialty Start Date End Date Endy Smith DO [address] [address] [place] [address] PCP - General Family Medicine 07/13/18 documented as of this encounter
--- OUTSIDE RECORDS SUMMARY | 2023-12-23 15:33 | External Medical Summary | Summary of Care ---
Author Name Unknown Organization [facility] Address [address] [facility] [address] Phone [phone] Care Team Providers Care Cotton Washer Name Role Phone Endy Smith DO Primary Care Provider +1 [phone] Reason for Visit * Reason Comments Lesion Patient presents tod ay for cyst on R cheek getting longer. Encounter Details Date Type Department Care Team ([facility] Contact Info) Description 12/17/2023 11:20 AM EDT Office Visit Dermatology [facility] [address] [place] [address] Saran Knutson PA-C [address] [place] [address] Epidermoid cyst*; Pruritus Allergies Active Allergy Reactions [...] suspected opioid overdose. Seek immediate medical attention. https://www.MedSolutionsu [email or web address].com/watch?v=v2 [email or web address] 0 Active Prochlorperazine Maleate 5 MG Oral [...] and 1 Tablet before bedtime. 0 Active Ipmimtdzrm-BVIF-Oyuxb ine 50-325-40 MG Oral Tablet (Fioricet) TAKE [...] as of this encounter Progress Notes * Saran Knutson PA-C - 12/17/2023 11:20 [...] Medication Sig Dispense Refill ONETOUCH ULTRASOFT LANCETS [facility] use as directed [address] TRETINOIN [...] suspected opioid overdose. Seek immediate medical attention. https://www.youtTURN8.com/watch?v=a20cRch9LvF (Patient not taking: Reported on 11/27/2023) Prochlorperazine [...] bedtime. (Patient not taking: Reported on 11/27/2023) Sfoemshzzm-VOXL-Gvisrjzc 50-325-40 MG Oral Tablet (Fioricet) TAKE 2 [...] Ivis Knutson PA-C 12/17/2023 11:20 AM Ref: SELF[[id number]] NO STREET ADDRESS AVAILABLE None (office) None (fax) PCP: ENDY SMITH [address] [place], [place] [address] [address] documented in this encounter Nursing Notes * Nerissa Alexander LPN - 12/17/2023 11:19 AM EDT Patient identified by name and date. Chief Complaint Patient presents with Lesion Patient presents today for cyst on R cheek getting longer. documented in this encounter Plan of Treatment Upcoming Encounters Date Type Department Care Team (Late st Contact Info) Description 02/16/2024 9:00 AM EDT Laboratory Laboratory, [address] [place] [address] [place], Laboratory [address] [facility] [place] [address] 02/23/2024 10:30 AM EDT Office Visit Hematology/Oncology Joshua Martinez [place] [address] [facility] [place], [place] [address] Sandra Evans MD [address] [facility] [place], [place] [address] 08/03/2024 4:00 PM EST Office Visit Dermatology [facility] [address] [place] [address] Saran Knutson PA-C [address] [place] [address] Pending Results Name Type Priority Associated Diagnoses Date /Time SURGICAL PATHOLOGY Pathology Routine 2023 11:54 AM EDT Health Maintenance Due Date Last Done Comments Diabetic Eye Exam 1998 Hepatitis B (1 of 3 - 19+ 3-dose series) 12/09/1999 HPV/Co-Test 2010 Cervical Cancer Screening 09/08/2011 Pap Smear 09/08/2011 09/08/2008, 07/25, 01/13/2006, Additional history exists Albumin/Creatinine Ratio 11/25/2015 11/24/2014, 08/0 02/2013 Diabetic Foot Exam 05/14/2018 05/14/2017, 0 [...] interpreted or resulted by a [facility] or [facility] contracted radiologist. Saran Knutson PA-C RADIOLOGY ([facility]) documented in this encounter Visit Diagnoses Diagnosis Epidermoid cyst- Primary Sebaceous cyst Pruritus Unspecified pruritic disorder documented in this encounter Advance Directives Latest Code Status on File Code Status Date Activated Date Inactivated Comments Full Code 10/15/2007 5:16 PM 10/17/2007 5:01 PM Care Teams Cotton Washer Relationship Specialty Start Date End Date Endy Smith DO [address] [place] [address] PCP - General Family Medicine 07/13/18 documented as of this encounter
--- OUTSIDE RECORDS SUMMARY | 2023-12-23 15:33 | External Medical Summary | Summary of Care ---
Author Name Unknown Organization [facility] Address [address] [facility] [place] [address] Phone [phone] Care Team Providers Care J2Ee Software Engineer Name Role Phone Endy [place] DO Primary Care Provider +1 [phone] Encounter Details Date Type Department Care Team (Late st Contact Info) Description 12/17/2023 Orders Only Gastroenterology, [facility] [address] [place] [address] Hilda Calvert DO [address] [place] [address] Allergies Active Allergy Reactions Criticality Noted Date [...] suspected opioid overdose. Seek immediate medical attention. https://www.[email or web address]/watch?v=[email or web address] [email or web address] 0 Active Prochlorperazine Maleate 5 MG Oral [...] and 1 Tablet before bedtime. 0 Active Ipszyggoav-PPDZ-Krwmw ine 50-325-40 MG Oral Tablet (Fioricet) TAKE [...] Hyperthyroidism 05/21/2005 05/14/2017 Overview: diag with preg 2005, off PTU since 06/29 Supervision of other [...] Upcoming Encounters Date Type Department Care Team ([facility] st Contact Info) Description 12/17/2023 11:20 AM EDT Office Visit Dermatology [address] [address] Saran Knutson PA-C [address] [place] [address] 02/16/2024 9:00 AM EDT Laboratory Laboratory, [address] [phone] [facility] [address] [place] [address] 02/23/2024 10:30 AM EDT Office Visit Hematology/Oncology Joshua Martinez [place] 200 [facility] [place] [address] Sandra Evans MD 200 [facility] [place] [address] 08/03/2024 4:00 PM EST Office Visit [address] [phone] Saran Knutson PA-C [address] [place] [address] Health Maintenance Due Date Last Done Comments [...] 12/19/2016, Additional history exists GFR 12/15/2024 12/16/2023, 11/23, 2023, Additional history exists Lipid Panel 10/23/2028 10/24/2023, [...] Priority Date/Time Associated Diagnosis Comments CHEMISTRY-OUTSIDE Routine 12/16/2023 documented in this encounter Results * (ABNORMAL) CHEMISTRY-OUTSIDE (12/16/2023) Not all results display below - see scan for full detail OUTSIDE LAB (SEE SCANNED REPORT) Comment:SCAN INCL: CMP CREATININE-OUTSID E LAB 0.87 0.6 - 1.2 MG/DL OUTSIDE LAB (SEE SCANNED REPORT) EGFR-OUTSIDE LAB 81.6 OUT SIDE LAB (SEE SCANNED REPORT) POTASSIUM-OUTSIDE LAB 3.4(A) 3.5 - 5.1 MMOL/L OUTSIDE LAB (SEE SCANNED REPORT) GLUCOSE-OUTSIDE LAB 117(A) 70 - 99 MG/DL OUTSIDE LAB (SEE SCANNED REPORT) HOURS FASTING [...] LAB OUTSIDE LAB (SEE SCANNED REPORT) HEMOGLOBIN, S6N-WANPZRL LAB OUTSIDE LAB (SEE SCANNED REPORT) PHOSPHORUS-OUTSID E LAB OUTSIDE LAB (SEE SCANNED REPORT) PTH-OUTSIDE LAB OUTS GRECIA LAB (SEE SCANNED REPORT) MICROALBUMIN RATIO-OUTSIDE LAB OUTSIDE LA B (SEE SCANNED REPORT) PROTEIN, UA-OUTSIDE LAB OUTSIDE LAB (SEE SCANNED REPORT) HGB OUTSIDE LA B (SEE SCANNED REPORT) 12/16/2023 Hilda Calvert DO LABORATORY OUTSIDE LAB (SEE SCANNED REPORT) documented in this encounter Advance Directives Latest Code Status on File Code Status Date Activated Date Inactivated Comments Full Code 10/15/2007 5:16 PM 10/17/2007 5:01 PM Care Teams J2Ee Software Engineer Relationship Specialty Start Date End Date Endy Stanley DO 1 [facility] [address] [place] [address] PCP - General Family Medicine 07/13/18 documented as of this encounter
--- OUTSIDE RECORDS SUMMARY | 2023-12-23 15:34 | External Medical Summary | Summary of Care ---
Author Name Unknown Organization [facility] Address [address] [facility] [address] Phone [phone] Care Team Providers Care Electric Dolly Operator Name Role Phone Endy Stanley DO Primary Care Provider +1 [phone] Encounter Details Date Type Department Care Team ([facility] Contact Info) Description 12/16/2023 Telephone Derm[address] [address] Saran Knutson PA-C [address] [place] [address] Allergies Active Allergy Reactions Criticality Noted Date Comments Codeine Hives 07/18/2012 Metformin Abdominal pain Low 03/30/2013 documented as of this encounter (statuses as of 12/16/2023) Medications Medication Sig Dispensed Refills Start Date [...] suspected opioid overdose. Seek immediate medical attention. https://[email or web address]/watch?v=[email or web address] [email or web address] 0 Active Prochlorperazine Maleate 5 MG Oral [...] and 1 Tablet before bedtime. 0 Active Wdcwjkwggx-SQLX-Rvjcs ine 50-325-40 MG Oral Tablet (Fioricet) TAKE [...] as of this encounter (statuses as of 12/16/2023) Active Problems Problem Noted Date Diagnosed Date [...] as of this encounter (statuses as of 12/16/2023) Resolved Problems Problem Noted Date Diagnosed Date [...] as of this encounter (statuses as of 12/16/2023) Immunizations Name Administration Dates Next Due H1N1 [...] Upcoming Encounters Date Type Department Care Team ([facility] st Contact Info) Description 12/17/2023 11:20 AM EDT Office Visit Dermatology [address] [address] Saran Knutson PA-C [address] [place] [address] 02/16/2024 9:00 AM EDT Laboratory Laboratory, [place] [address] [place] [phone] [facility] [address] [place] [address] 02/23/2024 10:30 AM EDT Office Visit Hematology/Oncology [place] [address] Joshua Baker [place] [phone] Sandra Evans MD [address] [place] [address] 08/03/2024 4:00 PM EST Office Visit Dermatology [facility] [address] [place] [address] Saran Knutson PA-C [address] [place] [address] Health Maintenance Due Date Last Done Comments [...] 09/01/2023, 04/26, 12/19/2016, Additional history exists GFR 12/11/2024 12/12/2023, 11/23, 11/27/2023, Additional history exists Lipid Panel 10/23/2028 10/24/2023, [...] 5:16 PM 10/17/2007 5:01 PM Care Teams Electric Dolly Operator Relationship Specialty Start Date End Date Endy Stanley DO [address] [address] [place] [address] PCP - General Family Medicine 07/13/18 documented as of this encounter
--- OUTSIDE RECORDS SUMMARY | 2023-12-23 15:34 | External Medical Summary | Summary of Care ---
Author Name Unknown Organization [facility] Address [address] [place] [address] Phone [phone] Care Team Providers Care Bail Bond Agent Name Role Phone Endy Stanley DO Primary Care Provider +1 [phone] Reason for Visit * Reason Onset Date Comments Order Request 2023 Encounter Details Date Type Department Care Team (Late st Contact Info) Description 2023 Telephone Gastroenterology, [facility] [address] [facility] [place] [address] Services, Scheduling [address] [place] [address] Order Request Allergies Active Allergy Reactions Criticality Noted Date [...] suspected opioid overdose. Seek immediate medical attention. [email or web address]/watch?v=[email or web address] 0 Active Prochlorperazine Maleate 5 MG Oral [...] and 1 Tablet before bedtime. 0 Active Iwfzgyagqt-LEAR-Rhwi eine 50-325-40 MG Oral Tablet (Fioricet) TAKE [...] if systolic blood pressure below 140. 0 4 Active Levothyroxine Sodium 25 MCG [...] mg daily.. 90 Tablet 1 4 Active Spironolactone 100 MG Oral Tablet (Aldactone)Indicatio ns: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),Splenic vein thrombosis TAKE 1 TABLET BY MOUTH IN THE MORNING AND BEFORE BEDTIME 180 Tablet 1 4 Active Clobetasol Propionate 0.05 % External Solution apply to the scalp 1-2 times daily as needed 50 mL 2 4 Active Venlafaxine HCl 75 MG Oral Tablet (Effexor) Take 1 Tablet by mouth in the morning and 1 Tablet before bedtime. 0 Active Albumin Human 25 % Intravenous SolutionIndications: [...] for each unit 100 mL 4 Active Albumin Human 25 % Intravenous Solution Please give 100 ml of Albumin pre- paracentesis, up to twice weekly. 100 mL 52 4 Active Albumin Human 25 % Intravenous SolutionIndications: [...] minutes for each unit 100 mL 4 12/08/19 24 Discontinu ed(Refill) Albumin Human 25 % Intravenous Solution Please give 50 ml of Albumin pre and post weekly Paracentesis. 100 mL 52 4 12/08/19 24 Discontinu ed(Refill) documented as of this encounter [...] 05/14/2017 Overview: LG 9/05, Leep 12/26 and 12 ICD-10 update of inactive term Headache 10/01/2003 [...] Telephone Encounter - Dianne Bloom RN - 12/16/2023 9:17 AM EDT Sent a fax with the pre and post orders written on 12/09 * Telephone Encounter - Niru Elkins RN - 12/11/2023 12:01 PM EDT Pt calling. Wants to know what Dr. Calvert ordered (albumin). Told her that she ordered 1/2 bottle pre and post. * Telephone Encounter - Emily Morse RN - 12/11/2023 11:30 AM EDT Images from the original note were not included. Hilda Calvert, DO You2 minutes ago (11:26 AM) It is exactly what dianne pended. That is what we are doing. Called and spoke to co worker of Elizabeth and made her aware. No further questions. * Telephone Encounter - Niru Elkins RN - 12/11/2023 8:39 AM EDT Elizabeth is calling again. She said pt is to have 1/2 bottle albumin pre and post with para tomorrow,but says pt was saying she is also to have a "sliding scale" depending on how much fluid is aspirated. Dr. Calvert: Is she just to have 1/2 bottle pre and post or did you want a sliding scale in addition? * Telephone Encounter - Dianne Bloom RN - 2023 2:45 PM EDT Elizabeth returning my kvng. Pt asking for 100 ml pre-paracentesis and the post- paracentesis orders toreflect the volume removed. Re-pended to be faxed. * Telephone Encounter - Dianne Bloom RN - 2023 12:42 PM EDT I left a message for Elizabeth to return my call. Also wanted to verify she received the script sent today for twice weekly Albumin. * Telephone Encounter - Abby Danielson OSA - 2023 8:14 AM EDT Please give Elizabeth a call back she is calling to verify the script that was given on Friday for theAlbumin 50ml pre and post nhung documented in this encounter Plan of Treatment Upcoming Encounters Date Type Department Care Team (Late st Contact Info) Description 02/16/2024 9:00 AM EDT Laboratory Laboratory, [place] [address] [facility] [phone] [place], Laboratory [address] [place] [place] [address] 02/23/2024 10:30 AM EDT Office Visit Hematology/Oncology Joshua Martinez [place] 200 [facility] [place] [address] Sandra Evans MD 200 [facility] [place] [address] 08/03/2024 4:00 PM EST Office Visit Dermatology [facility] [address] [place] [address] Saran Knutson PA-C [address] [place] [address] Health Maintenance Due Date Last Done Comments [...] 5:16 PM 10/17/2007 5:01 PM Care Teams Bail Bond Agent Relationship Specialty Start Date End Date Endy Stanley DO [address] [address] [place] [address] PCP - General Family Medicine 07/13/18 documented as of this encounter
--- OUTSIDE RECORDS SUMMARY | 2023-12-23 15:34 | External Medical Summary | Summary of Care ---
Author Name Unknown Organization [facility] Address [address] [facility] [address] Phone [phone] Care Team Providers Care Disaster Response Director Name Role Phone Endy Stanley DO Primary Care Provider +1 [phone] Encounter Details Date Type Department Care Team ([facility] Contact Info) Description 12/16/2023 Telephone Dermat[address] [address] Saran Knutson PA-C [address] [place] [address] Allergies Active Allergy Reactions Criticality Noted [...] suspected opioid overdose. Seek immediate medical attention. https://www.[email or web address]/watch?v=[email or web address] [email or web address] 0 Active Prochlorperazine Maleate 5 MG Oral [...] and 1 Tablet before bedtime. 0 Active Ovbqakknjc-SDBG-Cimna ine 50-325-40 MG Oral Tablet (Fioricet) TAKE [...] encounter Miscellaneous Notes * Telephone Encounter - Saran Knutson PA-C - 12/16/2023 1:02 PM EDT Received message from patient to help schedule appointment to evaluate a lump on the face. Please help schedule appt Saran Knutson PA-C documented in this encounter Plan of Treatment Upcoming Encounters Date Type Department Care Team (Late st Contact Info) Description 02/16/2024 9:00 AM EDT Laboratory Laboratory, [place] [address] [place] [address] [facility] [address] [place] [address] 02/23/2024 10:30 AM EDT Office Visit Hematology/Oncology [facility] [place] 200 [facility] [place] [address] Sandra Evans MD 200 [facility] [place] [address] 08/03/2024 4:00 PM EST Office Visit Dermatology [facility] [address] [place] [address] Saran Knutson PA-C [address] [place] [address] Health Maintenance Due Date Last Done Comments [...] 5:16 PM 10/17/2007 5:01 PM Care Teams Disaster Response Director Relationship Specialty Start Date End Date Endy Stanley DO [address] [address] [place] [address] PCP - General Family Medicine 07/13/18 documented as of this encounter
--- OUTSIDE RECORDS SUMMARY | 2023-12-23 15:34 | External Medical Summary | Summary of Care ---
Author Name Unknown Organization [facility] Address [address] [facility] [place] [address] Phone [phone] Care Team Providers Care Strike Warfare/Missile Systems Officer Name Role Phone Endy Stanley DO Primary Care Provider +1 -[phone] Reason for Referral * Evaluate & Treat - Unlimited Visits (Within 10 days (routine)) - Authorized Specialty Diagnoses / Procedures Referred By Contarash t Referred To Contact Dermatology Diagnoses Skin lesion Endy Stanley DO [address] [address] [place] [address] Referral ID Status Reason Start Date Expiration Date Visits Requested Visits Authorized [id number] Authorized Specialty Services Required 12/11/2023 999 999 Question Answer Referral Priority Within 10 days (routine) Where should this appointment be scheduled? Jessica Are you referring the patient for Mohs Surgery and have a current positive skin cancer biopsy result? No What is the reason for the patient referral? Rash/Skin Check/Eval of Lesion or Mole Comments Skin lesion Encounter Details Date Type Department Care Team (Late st Contact Info) Description 12/11/2023 Orders Only [facility], [place] [address] [place] [address] Ext *DO NOT REMOVE THIS DEPARTMENT* [place] [address] Request, External Referral Skin lesion* Allergies Active Allergy Reactions Criticality Noted Date Comments Codeine Hives 07/18/2012 Metformin Abdominal pain Low 03/30/2013 documented as of this encounter (statuses as of 12/11/2023) Medications Medication Sig Dispensed Refills Start Date [...] suspected opioid overdose. Seek immediate medical attention. https://www.[email or web address] [email or web address]/watch?v=v2 [email or web address] 0 Active Prochlorperazine Maleate 5 MG Oral [...] and 1 Tablet before bedtime. 0 Active Zkkgtmiqkh-QYUP-Itfql ine 50-325-40 MG Oral Tablet (Fioricet) TAKE [...] as of this encounter (statuses as of 12/11/2023) Active Problems Problem Noted Date Diagnosed Date [...] as of this encounter (statuses as of 12/11/2023) Resolved Problems Problem Noted Date Diagnosed Date [...] as of this encounter (statuses as of 12/11/2023) Immunizations Name Administration Dates Next Due H1N1 [...] Description 02/16/2024 9:00 AM EDT Laboratory Laboratory, [place] [place] [address] [address] [place] [address] 02/23/2024 10:30 AM EDT Office Visit Hematology/Oncology Joshua [place] [address] [place] [address] Sandra Evans MD 200 [facility] [place] [address] 08/03/2024 4:00 PM EST Office Visit Dermatology [facility] [address] [place] [address] Saran Knutson PA-C [address] [place] [address] Scheduled Referrals Name Type Priority Associated Diagnoses Orde r Schedule DERMATOLOGY REFERRAL OP Referral Within 10 days (routine) Skin lesion Ordered: 12/11/2023 Health Maintenance Due Date Last Done Comments [...] 09/01/2023, 04/26, 12/19/2016, Additional history exists GFR 12/07/2024 2023, 11/2023, 10/24/2023, Additional history exists Lipid Panel 10/23/2028 10/24/2023, [...] as of this encounter Visit Diagnoses Diagnosis Skin lesion- Primary Unspecified disorder of skin and subcutaneous tissue documented in this encounter Advance Directives Latest Code Status on File Code Status Date Activated Date Inactivated Comments Full Code 10/15/2007 5:16 PM 10/17/2007 5:01 PM Care Teams Strike Warfare/Missile Systems Officer Relationship Specialty Start Date End Date Endy Stanley DO [address] [address] [place] [address] PCP - General Family Medicine 07/13/18 documented as of this encounter
--- OUTSIDE RECORDS SUMMARY | 2023-12-23 15:35 | External Medical Summary | Summary of Care ---
Author Name Unknown Organization [facility] Address [address] [place] [address] Phone [phone] Care Team Providers Care Interior Assemblies Developer Prover Name Role Phone Endy Stanley DO Primary Care Provider +1 [phone] Reason for Visit * Reason Onset Date Comments Order Request 2023 Encounter Details Date Type Department Care Team (Late st Contact Info) Description 2023 Telephone Gastroenterology, [facility] [address] [facility] [place] [address] Services, Scheduling [address] [place] [address] Order Request Allergies Active Allergy Reactions Criticality Noted Date Comments Codeine Hives 07/18/2012 Metformin Abdominal pain Low 03/30/2013 documented as of this encounter (statuses as of 12/10/2023) Medications Medication Sig Dispensed Refills Start Date [...] suspected opioid overdose. Seek immediate medical attention. https://www.[employer].com/watch?v=v2 [email or web address] 0 Active Prochlorperazine Maleate 5 MG Oral [...] and 1 Tablet before bedtime. 0 Active Iyooxsnmqh-AWSK-Yigr eine 50-325-40 MG Oral Tablet (Fioricet) TAKE [...] as of this encounter (statuses as of 12/10/2023) Active Problems Problem Noted Date Diagnosed Date [...] as of this encounter (statuses as of 12/10/2023) Resolved Problems Problem Noted Date Diagnosed Date [...] as of this encounter (statuses as of 12/10/2023) Immunizations Name Administration Dates Next Due H1N1 [...] Description 02/16/2024 9:00 AM EDT Laboratory Laboratory, [place] [address] [place] [facility] [place] [phone] [place], Laboratory [address] [place] [facility] [place] [address] 02/23/2024 10:30 AM EDT Office Visit Hematology/Oncology [place] [address] [facility] [place] [address] Sandra Evans MD [address] [place] [address] Health Maintenance Due Date Last Done Comments [...] 5:16 PM 10/17/2007 5:01 PM Care Teams Interior Assemblies Developer Prover Relationship Specialty Start Date End Date Endy Stanley DO [address] [address] [place] [address] PCP - General Family Medicine 07/13/18 documented as of this encounter
--- OUTSIDE RECORDS SUMMARY | 2023-12-23 15:35 | External Medical Summary | Summary of Care ---
Author Name Unknown Organization [facility] Address [address] [facility] [place] [address] Phone [phone] Care Team Providers Care Resin Remover Name Role Phone Endy Stanley DO Primary Care Provider [phone] [phone] Encounter Details Date Type Department Care Team (Late st Contact Info) Description 2023 Result Scan Unspecified Department Hilda Calvert DO [address] [place] [address] <No scans attached> Allergies Active Allergy Reactions Criticality Noted Date Comments Codeine Hives 07/18/2012 Metformin Abdominal pain Low 03/30/2013 documented as of this encounter (statuses as of 12/09/2023) Medications Medication Sig Dispensed Refills Start Date [...] suspected opioid overdose. Seek immediate medical attention. https://www.[email or web address].com/watch?v=v2 [email or web address] 0 Active Prochlorperazine Maleate 5 MG Oral [...] and 1 Tablet before bedtime. 0 Active Ynalwzidby-QOLI-Bejoq ine 50-325-40 MG Oral Tablet (Fioricet) TAKE [...] BEFORE BEDTIME 180 Tablet 1 10/28/2023 Active Albumin Human 25 % Intravenous SolutionIndications:L [...] 60 minutes for each unit 100 mL 11/03/2023 Active Clobetasol Propionate 0.05 % External Solution apply to the scalp 1-2 times daily as needed 50 mL 2 11/24/2023 Active Venlafaxine HCl 75 MG Oral Tablet (Effexor) Take 1 Tablet by mouth in the morning and 1 Tablet before bedtime. 0 Active Albumin Human 25 % Intravenous Solution Please give 50 ml of Albumin pre and post weekly Paracentesis. 100 mL 52 12/05/2023 Active documented as of this encounter (statuses as of 12/09/2023) Active Problems Problem Noted Date Diagnosed Date [...] as of this encounter (statuses as of 12/09/2023) Resolved Problems Problem Noted Date Diagnosed Date [...] as of this encounter (statuses as of 12/09/2023) Immunizations Name Administration Dates Next Due H1N1 [...] Description 02/16/2024 9:00 AM EDT [facility] [place] [address] [facility] [phone] [place] [address] [facility] [address] 02/23/2024 10:30 AM EDT Office Visit Hematology/Oncology [place] [address] [facility] [place] [address] Sandra Evans MD [address] [place] [address] Health Maintenance Due Date Last Done Comments [...] Date/Time Associated Diagnosis Comments RADIOLOGY SCANNED RESULT 2023 documented in this encounter Results * RADIOLOGY SCANNED RESULT (2023) 2023 Hilda Calvert DO DIAGNOSTIC RAD IOLOGY SERVICES documented in this encounter Advance Directives Latest Code Status on File Code Status Date Activated Date Inactivated Comments Full Code 10/15/2007 5:16 PM 10/17/2007 5:01 PM Care Teams Resin Remover Relationship Specialty Start Date End Date Endy Stanley DO [address] [address] [place] [address] PCP - General Family Medicine 07/13/18 documented as of this encounter
--- OUTSIDE RECORDS SUMMARY | 2023-12-23 15:35 | External Medical Summary | Summary of Care ---
Author Name Unknown Organization [facility] Address [address] [place] [address] Phone [phone] Care Team Providers Care Accounting Intern Name Role Phone Endy Stanley DO Primary Care Provider [phone] [phone] Reason for Visit * Reason Onset Date Comments Order Request 2023 Encounter Details Date Type Department Care Team (Late st Contact Info) Description 2023 Telephone Gastroenterology, [facility] 132 [facility] [place] [address] Services, Scheduling [address] [place] [address] Order Request Allergies Active Allergy Reactions Criticality [...] suspected opioid overdose. Seek immediate medical attention. https://www.Shop[employer].com/watch?v=[email or web address] [email or web address] 0 Active Prochlorperazine Maleate 5 MG Oral [...] and 1 Tablet before bedtime. 0 Active Susnmmlhvq-PYBS-Gmag eine 50-325-40 MG Oral Tablet (Fioricet) TAKE [...] encounter Miscellaneous Notes * Telephone Encounter - Niru Elkins RN [...] Description 02/16/2024 9:00 AM EDT Laboratory Laboratory, [place] [address] [place] [facility] [place] [phone] [place] Jose [address] [place] [address] 02/23/2024 10:30 AM EDT Office Visit Hematology/Oncology [place] [address] [facility] [place] [address] Sandra Evans MD 200 [facility] [place] [address] Health Maintenance Due Date Last Done Comments [...] 12/19/2016, Additional history exists GFR 12/07/2024 2023, 0 11/2023, 10/24/2023, Additional history exists Lipid Panel [...] 5:16 PM 10/17/2007 5:01 PM Care Teams Accounting Intern Relationship Specialty Start Date End Date Endy Stanley DO [address] [address] [place] [address] PCP - General Family Medicine 07/13/18 documented as of this encounter
--- OUTSIDE RECORDS SUMMARY | 2023-12-23 15:35 | External Medical Summary | Summary of Care ---
Author Name Unknown Organization [facility] Address [address] [place] [address] Phone [phone] Care Team Providers Care Engineer Systems Name Role Phone Endy Stanley DO Primary Care Provider [phone] [phone] Reason for Visit * Reason Onset Date Comments Order Request 2023 Encounter Details Date Type Department Care Team (Late st Contact Info) Description 2023 Telephone Gastroenterology, [facility] 132 [facility] [place] [address] Services, Scheduling [address] [place] [address] Order Request Allergies Active Allergy Reactions Criticality [...] suspected opioid overdose. Seek immediate medical attention. https://www.[email or web address].com/watch?v=[email or web address] [email or web address] 0 Active Prochlorperazine Maleate 5 MG Oral [...] and 1 Tablet before bedtime. 0 Active Bxxfrnhfpl-GTIV-Kwcm eine 50-325-40 MG Oral Tablet (Fioricet) TAKE [...] Info) Description 02/16/2024 9:00 AM EDT [facility] [address] [facility] [address] [place] [facility] [address] [place] [address] 02/23/2024 10:30 AM EDT Office Visit Hematology/Oncology Joshua [place] 200 [place] [phone] Sandra Evans MD [address] [place] [address] Health Maintenance Due Date Last Done Comments [...] 5:16 PM 10/17/2007 5:01 PM Care Teams Engineer Systems Relationship Specialty Start Date End Date Endy Stanley DO [address] [address] [place] [address] PCP - General Family Medicine 07/13/18 documented as of this encounter
--- OUTSIDE RECORDS SUMMARY | 2023-12-23 15:35 | External Medical Summary | Summary of Care ---
Author Name Unknown Organization [facility] Address [address] [place] [place] [address] Phone [phone] Care Team Providers Care Finance Executive Name Role Phone Endy Stanley DO Primary Care Provider [phone] [phone] Reason for Referral * Precert (Within 10 days (routine)) - Authorized Specialty Diagnoses / Procedures Referred By Contac t Referred To Contact Radiology Diagnoses 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) Ascites Procedures IR PARACENTESIS IR PARACENTESIS IR PARACENTESIS Hilda Calvert DO [address] [facility] [address] Referral ID Status Reason Start Date Expiration Date V isits Requested Visits Authorized [id number] Authorized 10/29/2023 52 52 Reason for Visit * Reason Onset Date Comments Order Request 10/29/2023 Encounter Details Date Type Department Care Team (Late st Contact Info) Description 10/29/2023 Telephone Gastroenterology, [facility] [address] [facility] [address] Services, Scheduling [address] [place] [address] Order Request Allergies Active Allergy Reactions Criticality Noted Date Comments Codeine Hives 07/18/2012 Metformin Abdominal pain Low 03/30/2013 documented as of this encounter (statuses as of 2023) Medications Medication Sig Dispensed Refills Start Date [...] mouth three times a day 2700 mL 8 Active linagliptin (TRADJENTA) 5 MG Tablet [...] suspected opioid overdose. Seek immediate medical attention. https://www.[employer]Stand[employer] Sum[employer]ision.com/watch?v=[email or web address] [email or web address] 0 Active Prochlorperazine Maleate 5 MG Oral [...] and 1 Tablet before bedtime. 0 Active Quflczrljr-OYOH-Bhpl eine 50-325-40 MG Oral Tablet (Fioricet) TAKE [...] BEFORE BEDTIME 180 Tablet 1 4 Active Albumin Human 25 % Intravenous [...] for each unit 100 mL 4 Active Clobetasol Propionate 0.05 % External Solution apply to the scalp 1-2 times daily as needed 50 mL 2 3 11/24/19 Discontinu ed(Refill) Albumin Human 25 % Intravenous SolutionIndications: Liver [...] minutes for each unit 100 mL 4 11/03/19 Discontinu ed(Refill) documented as of this encounter (statuses as of 2023) Active Problems Problem Noted Date Diagnosed Date [...] as of this encounter (statuses as of 2023) Resolved Problems Problem Noted Date Diagnosed Date [...] (uteri) 04/24/2004 05/14/2017 Overview: LG 9/05, Leep 5/ and 07/30 ICD-10 update of inactive term [...] as of this encounter (statuses as of 2023) Immunizations Name Administration Dates Next Due H1N1 [...] Addendum Note - Dianne Bloom RN - 2023 9:44 AM EDTAddended by: DIANNE BLOOM on: 2023 09:44 AM Modules accepted: Orders * Telephone Encounter - Dianne Bloom RN - 11/03/2023 11:47 AM EDT New orders noted. Faxed. * Telephone Encounter - Dianne Bloom RN - 11/03/2023 8:59 AM EDT Added Albumin orders and addended Paracentesis order to address volume parameter. Please review and sign to be faxed. * Telephone Encounter - Salvador Haley OSA - 10/29/2023 12:32 PM EST Amanda from [facility] Radiology called in regards to needing a new order faxed over for pts paracentesis. The old order 10/18/23. If agreeable, please place orders. Fax number provided: [phone] Thank you documented in this encounter Plan of Treatment Upcoming Encounters Date Type Department Care Team (Late st Contact Info) Description 02/16/2024 9:00 AM EDT Laboratory Laboratory, [place] [address] [place] [address] [facility] Laboratory [address] [place] [address] 02/23/2024 10:30 AM EDT Office Visit Hematology/Oncology Joshua Martinez [place] 200 [place] [address] Sandra Evans MD [address] [place] [address] Scheduled Orders Name Type Priority Associated Diagnoses Orde r Schedule IR PARACENTESIS Medical Imaging Routine 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) Ascites Every Week for 52 Occurrences starting 2023 until 01/06/2025 Health Maintenance Due Date Last Done Comments [...] 09/01/2023, 04/26, 12/19/2016, Additional history exists GFR 11/26/2024 11/27/2023, 08/2023, 10/24/2023, Additional history exists Lipid Panel 10/23/2028 [...] secondary to nonalcoholic steatohepatitis (GILLESPIE) (HCC)- Primary Ascites Other ascites documented in this encounter Advance Directives Latest Code Status on File Code Status Date Activated Date Inactivated Comments Full Code 10/15/2007 5:16 PM 10/17/2007 5:01 PM Care Teams Finance Executive Relationship Specialty Start Date End Date Endy Stanley DO [address] [place] [address] [place] [address] PCP - General Family Medicine 07/13/18 documented as of this encounter
--- OUTSIDE RECORDS SUMMARY | 2023-12-23 15:35 | External Medical Summary | Summary of Care ---
Author Name Unknown Organization [facility] Address [address] [place] [address] Phone [phone] Care Team Providers Care Platform Consultant Name Role Phone Endy Stanley DO Primary Care Provider +1 [phone] Reason for Visit * Reason Onset Date Comments Order Request 2023 Encounter Details Date Type Department Care Team (Late st Contact Info) Description 2023 Telephone Gastroenterology, [facility] 132 [facility] [place] [address] Services, Scheduling [address] [place] [address] Order Request Allergies Active Allergy Reactions Criticality [...] suspected opioid overdose. Seek immediate medical attention. https://www.[email or web address]/watch?v=[email or web address] 0 Active Prochlorperazine Maleate 5 MG Oral [...] and 1 Tablet before bedtime. 0 Active Xfqcjxaetd-FEYF-Rxjo eine 50-325-40 MG Oral Tablet (Fioricet) TAKE [...] Description 02/16/2024 9:00 AM EDT Laboratory Laboratory, [place] [address] [place] [address] [facility] [address] [place] [address] 02/23/2024 10:30 AM EDT Office Visit Hematology/Oncology Joshua Martinez [place] 200 [facility] [place] [address] Sandra Evans MD 200 [facility] [place] [address] Health Maintenance Due Date Last Done Comments [...] 5:16 PM 10/17/2007 5:01 PM Care Teams Platform Consultant Relationship Specialty Start Date End Date Endy Stanley DO 1 [facility] [place] [address] [place] [address] PCP - General Family Medicine 07/13/18 documented as of this encounter
--- OUTSIDE RECORDS SUMMARY | 2023-12-23 15:35 | External Medical Summary | Summary of Care ---
Author Name Unknown Organization [facility] Address [address] [facility] [place] [address] Phone [phone] Care Team Providers Care Automation Control Integrator Name Role Phone Endy Stanley DO Primary Care Provider +1 [phone] Encounter Details Date Type Department Care Team (Late st Contact Info) Description 12/09/2023 Orders Only Gastroenterology, [facility] [address] [place] [address] Hilda Calvert DO [address] [place] [address] Allergies Active Allergy Reactions Criticality Noted Date [...] suspected opioid overdose. Seek immediate medical attention. [email or web address]://www.[email or web address]/watch?v=[email or web address] 0 Active Prochlorperazine Maleate 5 MG Oral [...] and 1 Tablet before bedtime. 0 Active Ferznhyzwq-KDVM-Ppnhk ine 50-325-40 MG Oral Tablet (Fioricet) TAKE [...] Description 02/16/2024 9:00 AM EDT Laboratory Laboratory, [place] [address] [place] [facility] [place] [phone] [place], Laboratory [address] [place] [facility] [place] [address] 02/23/2024 10:30 AM EDT Office Visit Hematology/Oncology Joshua Martinez [place] 200 [facility] [place] [phone] Sandra Evans MD [address] [place] [address] Health Maintenance Due Date Last Done Comments [...] Priority Date/Time Associated Diagnosis Comments CHEMISTRY-OUTSIDE Routine 2023 documented in this encounter Results * (ABNORMAL) CHEMISTRY-OUTSIDE (2023) Not all results display below - see scan for full detail SCAN INCLUDES: CMP OUTSIDE LAB (SEE SCANNED REPORT) CREATININE-OUTSID E LAB 0.74 0.6 - 1.2 MG/DL OUTSIDE LAB (SEE SCANNED REPORT) EGFR-OUTSIDE LAB 99.9 ML/MIN OUT SIDE LAB (SEE SCANNED REPORT) POTASSIUM-OUTSIDE LAB 3.7 3.5 - 5.1 MMOL/L OUTSIDE LAB (SEE SCANNED REPORT) GLUCOSE-OUTSIDE LAB 154(A) 70 - 99 MG/DL OUTSIDE LAB (SEE [...] LAB OUTSIDE LAB (SEE SCANNED REPORT) HEMOGLOBIN, [id number] LAB OUTSIDE LAB (SEE SCANNED REPORT) PHOSPHORUS-OUTSID E LAB OUTSIDE LAB (SEE SCANNED REPORT) PTH-OUTSIDE LAB OUTS GRECIA LAB (SEE SCANNED REPORT) MICROALBUMIN RATIO-OUTSIDE LAB OUTSIDE LA B (SEE SCANNED REPORT) PROTEIN, UA-OUTSIDE LAB OUTSIDE LAB (SEE SCANNED REPORT) HGB OUTSIDE LA B (SEE SCANNED REPORT) 2023 Hilda Calvert DO LABORATORY OUTSIDE LAB (SEE SCANNED REPORT) documented in this encounter Advance Directives Latest Code Status on File Code Status Date Activated Date Inactivated Comments Full Code 10/15/2007 5:16 PM 10/17/2007 5:01 PM Care Teams Automation Control Integrator Relationship Specialty Start Date End Date Endy Stanley DO [address] [address] [place] [address] PCP - General Family Medicine 07/13/18 documented as of this encounter
[2023-12-23] MEDS ORDERED: tiZANidine HCL 4 MG TABLET PO PRN (15:57)
[2023-12-23] MEDS ORDERED: NAPHAZOLIN/PHENIRAMIN OPH SOLN 15 ML BTL OP PRN (15:57)
[2023-12-23] MEDS ORDERED: ALPRAZolam 0.5 MG TABLET PO PRN (15:57)
[2023-12-23] MEDS ORDERED: IPRATROPIUM BROMIDE/ALBUTEROL respimat INH INH PRN (15:57)
--- NOTE | 2023-12-23 16:11 | Electrocardiogram Report ---
Test Reason : Blood Pressure : / mmHG Vent. Rate : 085 BPM Atrial Rate : 085 BPM P-R Int : 138 ms QRS Dur : 092 ms QT Int : 400 ms P-R-T Axes : 008 -13 028 degrees QTc Int : 476 ms Normal sinus rhythm Low voltage QRS Incomplete right bundle branch block Cannot rule out Anterior infarct (cited on or before 23-DEC-2023) Prolonged QT Abnormal ECG When compared with ECG of 18-OCT-2023 08:02, No significant change Confirmed by Howard Pagan ([id number]) on 12/23/2023 4:10:57 PM Referred By: REFERRED SELF Confirmed By:Howard Pagan
[2023-12-23] MEDS ORDERED: IPRATROPIUM BROMIDE HFA INHALER INH PRN (16:21)
[2023-12-23] MEDS ORDERED: ALBUTEROL HFA 8 GM INHALER INH PRN (16:21)
[2023-12-23] MEDS: BUMETANIDE 1 MG TAB PO SCH (17:15)
[2023-12-23] MEDS: LACTULOSE SYRUP 30 GM/45 ML UDP PO SCH (17:15)
[2023-12-23] MEDS: rOPINIRole HCL 2 MG TABLET PO SCH (17:15)
[2023-12-23] MEDS: MIDODRINE HCL 10 MG TAB PO SCH (17:16)
[2023-12-23] MEDS: METOCLOPRAMIDE HCL 10 MG TABLET PO SCH (17:17)
[2023-12-23] MEDS: INSULIN ASPART PER UNIT CHARGE SC SCH (18:16)
[2023-12-23] MEDS: oxyCODONE HCL IR 5 MG TAB (IMMEDIATE RELEASE) PO PRN (18:59)
[2023-12-23] MEDS: rifAXIMin 550 MG TABLET PO SCH (21:01)
[2023-12-23] MEDS: SUCRALFATE 1 GM TAB PO SCH (21:02)
[2023-12-23] MEDS: SPIRONOLACTONE 100 MG TAB PO SCH (21:02)
[2023-12-23] MEDS: PANTOprazole 40 MG TAB PO SCH (21:02)
[2023-12-23] MEDS: POTASSIUM CHLORIDE 10 MEQ TABCR PO SCH (21:02)
[2023-12-24] MEDS: LEVOTHYROXINE SODIUM 100 MCG TABLET PO SCH (06:06)
[2023-12-24 06:46] LABS: Basophils # (auto) 0.03 K/uL (0.00-0.20); Basophils % (auto) 0.7 %; Eosinophils # (auto) 0.22 K/uL (0.00-0.50); Eosinophils % (auto) 5.4 %; Hematocrit (blood only) 31.7 % (37.0-47.0); Hemoglobin 10.4 g/dl (12.0-16.0); Immature Granulocytes # (auto) 0.01 K/uL (0.01-0.20); Immature Granulocytes % (auto) 0.2 %; Lymphocytes # (auto) 0.54 K/uL (1.20-3.40); Lymphocytes % (auto) 13.2 %; Mean Corpuscular Hemoglobin 28.1 pg (25.0-34.0); Mean Corpuscular Hgb Conc 32.8 g/dL (32.0-36.0); Mean Corpuscular Volume 85.7 fL (80.0-100.0); Mean Platelet Volume 9.9 fL (9.4-12.4); Monocytes # (auto) 0.53 K/uL (0.11-0.59); Neutrophils # (auto) 2.76 K/uL (1.40-6.50); Neutrophils % (auto) 67.5 %; Platelet Count 54 K/uL (130-400); RDW Coefficient of Variation 15.6 % (11.5-14.5); White Blood Count 4.09 K/ul (4.8-10.8)
[2023-12-24 07:12] LABS: Albumin Globulin Ratio 1.3 (0.9-2); Albumin Level 3.7 gm/dl (3.4-5.0); BUN Creatinine Ratio 26.5 (10-20); Bilirubin,Total 1.9 mg/dl (0.2-1.0); Calcium 8.7 mg/dl (8.6-10.3); Creatinine Clr Calc Pharmacy 113.4 ml/min; Est GFR (African American) 124.2 ml/min; Est GFR (Non-African American) 107.1 ml/min; Globulin 2.9 gm/dl (2.5-4.0); Magnesium 1.9 mg/dl (1.7-2.4); Potassium 3.8 mmol/L (3.5-5.1); Total Protein 6.6 gm/dl (6.0-8.3)
[2023-12-24 07:16] LABS: INR 1.3 (0.9-1.1)
[2023-12-24] MEDS: FAMOTIDINE 40 MG TABLET PO SCH (08:22)
[2023-12-24] MEDS: MAGNESIUM OXIDE 400 MG TAB PO SCH (08:22)
[2023-12-24] MEDS: VENLAFAXINE HCL XR 75 MG CAPXR PO SCH (08:22)
[2023-12-24] MEDS: LINACLOTIDE 145 MCG CAPSULE PO SCH (08:23)
[2023-12-24] MEDS ORDERED: LEVOTHYROXINE SODIUM 100 MCG TABLET PO SCH (09:00)
--- NOTE | 2023-12-24 11:24 | Discharge Summary ---
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 Per the ED staff, the patient underwent a paracentesis this am with approximately 2L removed. After her paracentesis the patient appeared more confused than baseline. She remained stable in the ED. Labs were significant for a platelet count of 44 (down from 64 as of 10/29/23), ammonia level of 76, INR of 1.3, potassium of 3.4, mag of 1.8, total bili of 1.6, AST of 50 with ALT and alk phos WNL, and UA negative for sings of infection. CT of the head/brain wo con and CXR were read as negative for acute findings. Prior to admission the patient was given 30 mg PO lactulose. At the time of the exam the patient was sitting in bed in no acute distress, she was by herself at the time of my exam. She states that she feels like she is more confused than her baseline. During the exam she will converse appropriately but then will have intermittent periods when she forgets what she was talking about or has to take extended time to find the right words. When asked, she states that she has been taking her medications as prescribed. She states that she did not have her am meds today due to her scheduled paracentesis. She states she is going to be placed on the [facility] liver transplant list in the near future. She states she doesn't need to be off oxycodone for [facility]. I attempted to call her , Augie Gutiérrez ([phone]) but was sent to voicemail. Please refer to Dr. Suarez' attestation for any changes to the treatment plan Principal Diagnosis Hepatic encephalopathy, hypokalemia Discharge Exam General-alert and oriented x3, no fever, no chills HEENT-head atraumatic and normocephalic, pupils equal and reactive to light, extraocular muscles intact Neck-no lymphadenopathy or thyromegaly, trachea midline Chest-clear to auscultation. No rales, wheezing or rhonchi Cardiac-regular rate and rhythm, normal S1 and S2 Abdomen-normal bowel sounds, no hepatosplenomegaly Extremities-no cyanosis, clubbing, or edema Neuro-cranial nerves II through XII intact, motor and sensory function within normal limits, strength symmetrical, no focal deficits Psych-normal affect, normal mood Discharge Data Allergies Allergy/AdvReac Type Severity Reaction Status Date / Time codeine Allergy Unknown Hives, Verified 12/08/23 07:53 [From Tylenol-Codeine #3] skin redness (Tyenol #3) metformin Allergy Unknown Unknown Unverified 12/08/23 07:53 Consultations 12/23/23 12:06 ED Decision to Admit Stat Ordered Studies 12/23/23 09:44 CT head/brain wo con Stat Hospital Course (1) Hepatic encephalopathy: Now resolved. Ammonia improved to 59. The patient was instructed again on proper use of her medications. (2) Thrombocytopenia: Chronic. Stable. (3) 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: Chronic. Stable. Continue to follow up outpatient with her Specialist [employer] (4) Hypokalemia: Corrected. Potassium is now 3.8. (5) Diabetes type 2, controlled: Stable. ADA diet. Sliding scale coverage as needed (6) GERD (gastroesophageal reflux disease): Stable. Continue PPI therapy Plan Home today, December 23 Total Time Total Time Spent Total Time Spent (In Minutes): 45 minutes Discharge Plan Discharge Items Patient Disposition: Home - Self-Care Reason For Visit: HEPATIC ENCEPHALOPATHY Discharge Diagnosis: Recurrent hepatic encephalopathy, hypokalemia Activity: Resume your previous activity Non-emergency contact: Primary Care Provider and Mine Car Dispatcher Call non-emergency contact if: you have any medication questions and your symptoms worsen Follow-up/Referrals: Endy Stanley D.O. [Primary Care Provider] - Diet: Carb Consistent or DM2 Addtl Attending Provider Instructions: All medications remain the same. You need to have frequent loose stools in order to keep the ammonia level down. Potassium supplementation will need to be adjusted to keep potassium levels normal. Pending Studies at Discharge: No Stand-Alone Forms: My [employer], Smoking Cessation Medications and DC Order Prescriptions: Continued oxycodone 15 mg tablet 7.5 mg PO Q6H (DME) lancets 33 gauge misc See Rx Instructions .ROUTE .MEDSUPPLY Qty: 100 0RF Rx Instructions: use to test blood sugar 3 times a month (DME) blood-glucose meter [Accu-Chek Guide Glucose Meter] [facility] Rx Instructions .Route Qty: 1 0RF Rx Instructions: use to test Blood Sugar (DME) Accu-Chek Guide test strips Strip See Rx Instructions .Route Qty: 100 3RF Rx Instructions: test blood sugar three times monthly Ubrelvy 50 mg tablet 50 mg PO .COMPLEX PRN (Reason: headache) Qty: 10 6RF Rx Instructions: 50mg prn migraine, may repeat after two hours prn sumatriptan succinate 50 mg tablet 50 mg PO UD Tirosint-Marisa 150 mcg/mL solution 300 mcg PO DAILY Qty: 60 5RF ondansetron 8 mg tablet,disintegrating 8 mg translingual Q8 PRN (Reason: Nausea) ropinirole 4 mg tablet 4 mg PO TID valacyclovir 500 mg Tablet 500 mg PO Q8 PRN (Reason: .BREAKOUTS) calcium carbonate-simethicone 500-20 mg Tablet,Chewable 1 tab PO TIDM Qty: 0 Rx Instructions: Unable to verify OTC medication with patient/family at this date/time. triamcinolone acetonide 0.1 % Cream 1 applic EXT TID PRN (Reason: dry, itchy skin on legs/abdominal wall) Qty: 15 0RF Rx Instructions: use for 5 days then stop. Apply in very thin amounts only. Combivent Respimat 20-100 mcg/actuation Mist 1 puff INHALATION QID PRN (Reason: cough/wheeze/shortness of breath) Qty: 1 0RF Rx Instructions: space evenly during waking hours clobetasol 0.05 % solution 1 applic TOPICAL BID PRN (Reason: for scalp) qbufhponyf-qgmcccyprfmyn-epfw 50-325-40 mg tablet 2 tab PO Q6 MDD 8 tablets PRN (Reason: Pain) promethazine [Promethegan] 25 mg suppository 25 mg [place] UD PRN (Reason: Nausea) famotidine 40 mg tablet 40 mg PO QAM hydroxyzine HCl 10 mg tablet 10 mg PO TID PRN (Reason: Itching) potassium chloride 10 mEq tablet extended release 10 meq PO BID omeprazole 40 mg Capsule,Delayed Release(Dr/Ec) 40 mg PO BID prochlorperazine maleate 5 mg tablet 5 mg PO QID PRN (Reason: Nausea) venlafaxine [Effexor XR] 150 mg capsule,extended release 24hr 150 mg PO DAILY Qty: 30 1RF Rx Instructions: Take 150mg w/ 75mg to equal 225mg by mouth once daily. venlafaxine [Effexor XR] 75 mg capsule,extended release 24hr 75 mg PO DAILY Qty: 30 1RF Rx Instructions: Take 75mg w/ 150mg to equal 225mg by mouth once daily. tizanidine 4 mg tablet 4 mg PO Q6H PRN (Reason: muscle spasms) metoclopramide HCl 10 mg tablet 10 mg PO QID midodrine 10 mg tablet 10 mg PO TID Linzess 290 mcg Capsule 0 mcg PO DAILY Hold Instructions: please hold unless Dr Calvert or Dr Stanley ask you to resume it Rx Instructions: Family is unsure if patient is taking this medication or not yet. Original Directions: 290mcg by mouth once daily alprazolam 1 mg tablet 1 mg PO BID PRN (Reason: Anxiety) spironolactone 100 mg tablet 100 mg PO BID Xifaxan 550 mg Tablet 550 mg PO BID Qty: 1 0RF bumetanide 1 mg Tablet 2 mg PO TIDM Qty: 1 0RF lactulose 10 gram/15 mL (15 mL) Solution 30 g PO TID Qty: 1440 0RF Rx Instructions: take twice or three times daily for at least 3 bowel movements each day Naphcon-A 0.025-0.3 % Drops 2 drp ophthalmic (eye) QID PRN (Reason: eye irritation) Qty: 15 0RF polyvinyl alcohol [Artificial Tears (polyvin alc)] 1.4 % Drops 1 drp OPB QID PRN (Reason: dry eye(s)) Qty: 15 0RF cholecalciferol (vitamin D3) 125 mcg (5,000 unit) Tablet 125 mcg PO QAM Qty: 1 0RF sucralfate 1 gram tablet 1 g PO BID Qty: 1 0RF Rx Instructions: 1g by mouth twice daily magnesium oxide 400 mg magnesium tablet 400 mg PO DAILY Qty: 30 5RF Discharge Orders: Discharge Order (Routine); Ordered 12/24/23 Ordered By: Ned Park Admission Data Admit Date/Time: 12/23/23 12:53 Attending Provider: Ned Park Admit Provider: Titi Suarez Primary Care Provider: Endy Stanley Other Providers: Titi Suarez Coding Level of Care Code 53020 INP/OBS DISCH >30 MIN Diagnoses Hepatic encephalopathy K72.90 Thrombocytopenia D69.6 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 Hypokalemia E87.6 Diabetes type 2, controlled E11.9 GERD (gastroesophageal reflux disease) K21.9
--- OUTSIDE RECORDS SUMMARY | 2023-12-26 17:47 | External Medical Summary | Summary of Care ---
Author Name Unknown Organization [facility] Address [address] [facility] [place] [address] Phone [phone] Care Team Providers Care Order Taker Name Role Phone Endy Stanley DO Primary Care Provider [phone] Encounter Details Date Type Department Care Team (Late st Contact Info) Description 12/24/2023 Orders Only Gastroenterology, [facility] [address] [place] [place] [address] Hilda Clavert DO [address] [place] [address] Allergies Active Allergy Reactions Criticality Noted Date Comments Codeine Hives 07/18/2012 Metformin Abdominal pain Low 03/30/2013 documented as of this encounter (statuses as of 12/24/2023) Medications Medication Sig Dispensed Refills Start Date [...] suspected opioid overdose. Seek immediate medical attention. [email or web address]?[email or web address] Active Prochlorperazine Maleate 5 MG Oral [...] and 1 Tablet before bedtime. 0 Active Uxmgaayssl-CCYS-Wmrth ine 50-325-40 MG Oral Tablet (Fioricet) TAKE [...] as of this encounter (statuses as of 12/24/2023) Active Problems Problem Noted Date Diagnosed Date [...] as of this encounter (statuses as of 12/24/2023) Resolved Problems Problem Noted Date Diagnosed Date [...] as of this encounter (statuses as of 12/24/2023) Immunizations Name Administration Dates Next Due H1N1 [...] Description 02/16/2024 9:00 AM EDT Laboratory Laboratory, [place] [address] [place] [address] [facility] [address] [place] [address] 02/23/2024 10:30 AM EDT Office Visit Hematology/Oncology [facility] [address] [facility] [place] [address] Sandra Evans MD [address] [facility] [place] [address] 08/03/2024 4:00 PM EST Office Visit Dermatology [facility] [address] [place] [phone] Saran Knutson PA-C [address] [place] [address] Health Maintenance Due Date Last Done Comments Diabetic Eye Exam 1998 Hepatitis B (1 of 3 - 19+ 3-dose series) 12/09/1999 HPV/Co-Test 2010 Cervical Cancer Screening 09/08/2011 Pap Smear 09/08/2011 09/08/2008, 07/25, 01/13/2006, Additional history exists Albumin/Creatinine Ratio 11/25/2015 11/24/2014, 080 02/2013 Diabetic Foot Exam 05/14/2018 05/14/2017, 0 11/15/2015, 12/23/2014 DTaP,Tdap,and Td Vaccines (2 - Td or Tdap) 05/18/2019 05/18/2009 B-12 08/19/2019 08/19/2018 Mammogram 2020 HbA1c 03/01/2024 09/01/2023, 12/23, 01/23/2022, Additional history exists TSH 09/01/2024 09/01/2023, 04/26, 12/19/2016, Additional history exists GFR 12/22/2024 12/23/2023, 11/24, 12/16/2023, Additional history exists Lipid Panel 10/23/2028 10/24/2023, [...] Priority Date/Time Associated Diagnosis Comments CHEMISTRY-OUTSIDE Routine 12/23/2023 documented in this encounter Results * (ABNORMAL) CHEMISTRY-OUTSIDE (12/23/2023) Not all results display below - see scan for full detail OUTSIDE LAB (SEE SCANNED REPORT) Comment:SCAN INCLUDES - CMP, ALK PHOS CREATININE-OUTSID E LAB 0.65 0.6 - 1.2 MG/DL OUTSIDE LAB (SEE SCANNED REPORT) EGFR-OUTSIDE LAB 108.7 ML/MIN OUT SIDE LAB (SEE SCANNED REPORT) POTASSIUM-OUTSIDE LAB 3.4(A) 3.5 - 5.1 MMOL/L OUTSIDE LAB (SEE SCANNED REPORT) GLUCOSE-OUTSIDE LAB 166(A) 70 - 99 MG/DL OUTSIDE LAB (SEE [...] LAB OUTSIDE LAB (SEE SCANNED REPORT) HEMOGLOBIN, [id number] LAB OUTSIDE LAB (SEE SCANNED REPORT) PHOSPHORUS-OUTSID E LAB OUTSIDE LAB (SEE SCANNED REPORT) PTH-OUTSIDE LAB OUTS GRECIA LAB (SEE SCANNED REPORT) MICROALBUMIN RATIO-OUTSIDE LAB OUTSIDE LA B (SEE SCANNED REPORT) PROTEIN, UA-OUTSIDE LAB OUTSIDE LAB (SEE SCANNED REPORT) HGB OUTSIDE LA B (SEE SCANNED REPORT) 12/23/2023 Hilda Calvert DO LABORATORY OUTSIDE LAB (SEE SCANNED REPORT) documented in this encounter Advance Directives Latest Code Status on File Code Status Date Activated Date Inactivated Comments Full Code 10/15/2007 5:16 PM 10/17/2007 5:01 PM Care Teams Order Taker Relationship Specialty Start Date End Date Endy Stanley DO [address] [place] [address] [place] [address] PCP - General Family Medicine 07/13/18 documented as of this encounter
--- OUTSIDE RECORDS SUMMARY | 2023-12-26 17:47 | External Medical Summary | Summary of Care ---
Author Name Unknown Organization [facility] Address [address] [facility] [place] [address] Phone [phone] Care Team Providers Care News Technical Director Name Role Phone Lizeth, Endy Mora DO Primary Care Provider [phone] Encounter Details Date Type Department Care Team (Late st Contact Info) Description 12/23/2023 Result Scan Unspecified Department <No scans attached> Allergies Active Allergy Reactions [...] suspected opioid overdose. Seek immediate medical attention. [email or web address] 0 Active Prochlorperazine Maleate 5 MG Oral [...] and 1 Tablet before bedtime. 0 Active Xnbzkbrgzk-GFTY-Ucsqz ine 50-325-40 MG Oral Tablet (Fioricet) TAKE [...] Description 02/16/2024 9:00 AM EDT Laboratory [facility], [place] [address] [facility] [address] [place] [address] [facility] [address] 02/23/2024 10:30 AM EDT Office Visit Hematology/Oncology [facility] [place] [address] [facility] [place] [phone] Sandra Evans MD [address] [facility] [place] [address] 08/03/2024 4:00 PM EST Office Visit Dermatology [facility] [address] [place] [phone] Saran Knutson PA-C [address] [place] [address] Health Maintenance Due Date Last Done Comments [...] Date/Time Associated Diagnosis Comments RADIOLOGY SCANNED RESULT 12/23/2023 documented in this encounter Results * RADIOLOGY SCANNED RESULT (12/23/2023) 12/23/2023 No Physician Data Unknown DIAGNOSTIC RAD IOLOGY SERVICES documented in this encounter Advance Directives Latest Code Status on File Code Status Date Activated Date Inactivated Comments Full Code 10/15/2007 5:16 PM 10/17/2007 5:01 PM Care Teams News Technical Director Relationship Specialty Start Date End Date Endy Stanley DO [address] [facility] [place] [address] PCP - General Family Medicine 07/13/18 documented as of this encounter
--- OUTSIDE RECORDS SUMMARY | 2023-12-26 17:48 | External Medical Summary ---
Author Name UNSPECIFIED Address Unknown Organization [facility] History of Encounters Reason for Assessment: Recertification ( follow-up) reassessment Functional Assessment Current Ability: Bathing: able to partic ipate in bathing self in shower or tub, but requires presence of another person throughout the bath for assistance or supervision. Current Ability: Ambulation: Able to wal k only with the supervision or assistance of another person at all times.
== END 2023-12-24 14:49 | disposition home or self-care (01) ==
LOC: ED 09:04 → 2N 09:04 → SUATTDRO 12:53 → 2N 15:26

== ENCOUNTER 2024-02-16 18:37 | Observation (INO) ==
[2024-02-16 20:24] LABS: Basophils # (auto) 0.03 K/uL (0.00-0.20); Basophils % (auto) 0.8 %; Eosinophils # (auto) 0.06 K/uL (0.00-0.50); Eosinophils % (auto) 1.6 %; Hemoglobin 7.9 g/dl (12.0-16.0); Immature Granulocytes # (auto) 0.04 K/uL (0.01-0.20); Immature Granulocytes % (auto) 1.1 %; Lymphocytes # (auto) 0.36 K/uL (1.20-3.40); Lymphocytes % (auto) 9.7 %; Mean Corpuscular Hemoglobin 26.1 pg (25.0-34.0); Mean Corpuscular Hgb Conc 30.4 g/dL (32.0-36.0); Mean Corpuscular Volume 85.8 fL (80.0-100.0); Mean Platelet Volume 10.1 fL (9.4-12.4); Monocytes # (auto) 0.44 K/uL (0.11-0.59); Monocytes % (auto) 11.9 %; Neutrophils # (auto) 2.77 K/uL (1.40-6.50); Neutrophils % (auto) 74.9 %; Platelet Count 60 K/uL (130-400); RDW Coefficient of Variation 21.5 % (11.5-14.5); RDW Standard Deviation 65.1 fL (36.4-46.3); Red Blood Count 3.03 M/uL (4.20-5.40)
[2024-02-16 20:43] LABS: Albumin Level 3.9 gm/dl (3.4-5.0); BUN Creatinine Ratio 19.8 (10-20); Bilirubin,Total 1.3 mg/dl (0.2-1.0); Calcium 8.3 mg/dl (8.6-10.3); Creatinine Clr Calc Pharmacy 82.9 ml/min; Est GFR (Non-African American) 68.1 ml/min; Potassium 3.3 mmol/L (3.5-5.1); Total Protein 5.9 gm/dl (6.0-8.3)
[2024-02-16 20:50] LABS: Hypochromasia Present; Polychromasia 1+
--- OUTSIDE RECORDS SUMMARY | 2024-02-16 21:19 | External Medical Summary | Summary of Care ---
Author Name Unknown Organization [facility] Address [address] [facility] [place] [address] Phone [phone] Care Team Providers Care Ampoule Filler And Sealer Name Role Phone Endy Stanley DO Primary Care Provider [phone] Encounter Details Date Type Department Care Team (Late st Contact Info) Description 02/11/2024 Result Scan Unspecified Department Hilda Calvert DO [address] [place] [address] <No scans attached> Allergies Active Allergy Reactions Criticality Noted Date Comments Codeine Hives 07/18/2012 Metformin Abdominal pain Low 03/30/2013 documented as of this encounter (statuses as of 02/12/2024) Medications Medication Sig Dispensed Refills Start Date [...] 1 Tablet by mouth in the morning. Active famotidine (PEPCID) 20 MG Tablet Take 1 Tablet by mouth in the morning and 1 Tablet before bedtime. Active Lactulose 20 GM Oral Packet (Kristalose) Take 1.5 Packets by mouth in the morning and 1.5 Packets at noon and 1.5 Packets in the evening. Goal BM=3-4 times daily. 02/14/2023 Active Ondansetron HCl 8 MG Oral Tablet (Zofran) Take by mouth every 8 hours as needed for Nausea. Active Ipratropium-Albuterol 20-100 MCG/ACT Inhalation Aerosol Solution Inhale 1 Puff by mouth in the morning and 1 Puff at noon and 1 Puff in the evening and 1 Puff before bedtime. Active Naloxone HCl 4 MG/0.1ML Nasal Liquid Administer 0.1 mL into nostril as needed. Administer 1 spray into 1 nostril for suspected opioid overdose. Seek immediate medical attention. [email or web address]?v=[email or web address] Active Prochlorperazine Maleate 5 MG Oral Tablet (Compazine) Take 1 Tablet by mouth every 6 hours as needed for Nausea. Active Sennosides-Docusate Sodium 8.6-50 MG Oral Tablet Take 1 Tablet by mouth daily as needed for Constipation. Active Magnesium 400 MG Oral Capsule Take 1 Capsule by mouth in the morning and 1 Capsule before bedtime. Active Bisacodyl 10 MG Rectal Suppository Administer 1 Suppository into the rectum daily as needed. Active oxyCODONE HCl 10 MG/0.5ML Oral Concentrate Take 15 mL by mouth every 6 hours. Active hydrOXYzine HCl 10 MG Oral Tablet (Atarax) Take 1 Tablet by mouth 3 times a day as needed. Active Docusate Sodium 100 MG Oral Capsule (Colace) Take 1 Capsule by mouth in the morning and 1 Capsule before bedtime. Active rOPINIRole HCl 4 MG Oral Tablet (Requip) Take 1 Tablet by mouth at bedtime as needed. Active Cholecalciferol 125 MCG (5000 UT) Oral Tablet Take by mouth. Active Enoxaparin Sodium 100 MG/ML Injection Solution Prefilled Syringe Inject 100 mg under the skin in the morning. Active Omeprazole 40 MG Oral Capsule Delayed Release (PriLOSEC) Take 1 Capsule by mouth in the morning. 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 180 Tablet 1 06/04/2023 Active Klor-Con 20 MEQ Oral Packet Take 20 mEq by mouth in the morning and 20 mEq before bedtime. 06/22/2023 Active Levothyroxine Sodium 300 MCG Oral Tablet Take 1 Tablet by mouth in the morning. 06/02/2023 Active Midodrine HCl 2.5 MG Oral Tablet (Proamatine) Take 1 Tablet by mouth in the morning and 1 Tablet at noon and 1 Tablet before bedtime. Active Tums Extra Strength 750 750 MG Oral Tablet Chewable (calcium CARBonate) Take 1 Tablet by mouth every 6 hours as needed for Heartburn. Active ALPRAZolam 1 MG Oral Tablet (xaNAX) Take 1 Tablet by mouth 2 times a day as needed for Anxiety. Active Acetaminophen 500 MG Oral Tablet (Tylenol) Take 1 Tablet by mouth every 6 hours as needed for Pain, Mild. Active Sucralfate 1 GM Oral Tablet (Carafate) Take 1 Tablet by mouth in the morning and 1 Tablet before bedtime. Active Kdwcosddni-YBKM-Mmmkh ine 50-325-40 MG Oral Tablet (Fioricet) TAKE 2 TABLETS BY MOUTH EVERY 6 HOURS IF NEEDED FOR PAIN - MAX DAILY DOSE OF 8 TABS 07/14/2023 Active Doxycycline Monohydrate 100 MG Oral Tablet Take 1 Tablet by mouth in the morning and 1 Tablet before bedtime. 08/26/2023 Active rifAXIMin 550 MG Oral Tablet [...] 5mg if systolic blood pressure below 140. 09/09/2023 Active Levothyroxine Sodium 25 MCG Oral Tablet (Levoxyl) Take 1 Tablet by mouth in the morning. 09/09/2023 Active Sertraline HCl 50 MG Oral Tablet (Zoloft) Take 1 Tablet by mouth in the morning. 90 Tablet 10/03/2023 Active Sertraline HCl 25 MG Oral [...] the morning and 1 Tablet before bedtime. Active Albumin Human 25 % Intravenous SolutionIndications:L [...] as of this encounter (statuses as of 02/12/2024) Active Problems Problem Noted Date Diagnosed Date Recurrent major depressive disorder, in partial remission 05/14/2017 Iron deficiency anemia 11/15/2015 Bariatric surgery status 08/10/2015 Liver cirrhosis 08/10/2015 [...] as of this encounter (statuses as of 02/12/2024) Resolved Problems Problem Noted Date Diagnosed Date Resolved Date Type 2 diabetes mellitus wit h hemoglobin [...] as of this encounter (statuses as of 02/12/2024) Immunizations Name Administration Dates Next Due H1N1 2009 Influenza, IM 06/28/2009 Seasonal Influenza, Split, I IV3, With Preserve, Inj 05/09/2023,05/25/2016,06/08/2015, 0 12,05/10/2009 TDAP, Age 7 and older, IM (Adacel) 05/18,09/12/2008(Deferred: Patient Refused) documented as of this encounter Social History Tobacco Use Types Packs/Day Years Used Date Smoking Tobacco: Never Smokeless Tobacco: Never Alcohol Use Standard Drinks/Week Comments Not Currently 0 (1 standard drink = 0.6 oz pur e alcohol) 3 x yr Utilities Answer Date Recorded Do you have trouble paying y our heating, water, or electric bill? (Adult - for ages 18 years and over) Not on file 02/10/2024 Is your family able to pay t he heat, water, or electric bill? (Household - for ages 0-17 years) Not on file 02/10/2024 Does your family have access to good internet? (Household - for ages 0-17 years) Not on file 02/10/2024 Social Connections Answer Date Recorded How often do you feel lonely or isolated from those around you? (Adult - for ages 18 years and over) Not on file 02/10/2024 Sex and Gender Information Value Date Recorded [...] Care Team (Late st Contact Info) Description 02/19/2024 9:30 AM EDT Laboratory Laboratory, [address] [phone] [facility] [address] [place] [address] 02/23/2024 10:30 AM EDT [facility] [address] [place] [phone] Sandra Evans MD [address] [facility] [place] [address] 04/23/2024 11:20 AM EDT Office Visit Hepatology, [facility] [address] [place] [address] Hilda Calvert DO [address] [place] [address] 06/02/2024 9:00 AM EDT Office Visit Hepatology, [facility] [address] [place] [address] Hilda Calvert DO [address] [place] [address] 08/03/2024 4:00 PM EST Office Visit Dermatology [facility] [address] [facility] [place] [phone] Saran Knutson PA-C [address] [facility] [place] [address] Health Maintenance Due Date Last Done Comments Diabetic Eye Exam 1998 Hepatitis B (1 of 3 - 19+ 3-dose series) 12/09/1999 HPV/Co-Test 2010 Cervical Cancer Screening 09/08/2011 Pap Smear 09/08/2011 09/08/2008, 07/25, 01/13/2006, Additional history exists Albumin/Creatinine Ratio 11/25/2015 11/24/2014, 02/2013 Depression Monitoring 10/15/2017 10/15/2016 Diabetic Foot Exam 05/14/2018 05/14/2017, 0 11/15/2015, 12/23/2014 DTaP,Tdap,and Td Vaccines (2 - Td or Tdap) 05/18/2019 05/18/2009 B-12 08/19/2019 08/19/2018 Mammogram 2020 HbA1c 03/01/2024 09/01/2023, 12/23, 01/23/2022, Additional history exists TSH 09/01/2024 09/01/2023, 04/26, 12/19/2016, Additional history exists GFR 02/10/2025 02/11/2024, 01/23, 01/30/2024, Additional history exists Lipid Panel 10/23/2028 10/24/2023, [...] Date/Time Associated Diagnosis Comments RADIOLOGY SCANNED RESULT 02/11/2024 documented in this encounter Results * RADIOLOGY SCANNED RESULT (02/11/2024) 02/11/2024 Hilda Calvert DO DIAGNOSTIC RAD IOLOGY SERVICES documented in this encounter Advance Directives * Full Code (Latest Code Status on File) Date Activated Date Inactivated Comments 10/15/2007 5:16 PM 10/17/2007 5:01 PM Care Teams Ampoule Filler And Sealer Relationship Specialty Start Date End Date Endy Stanley DO [address] [place] [address] [place] [address] PCP - General Family Medicine 07/13/18 documented as of this encounter
--- OUTSIDE RECORDS SUMMARY | 2024-02-16 21:19 | External Medical Summary | Summary of Care ---
Author Name Unknown Organization [facility] Address [address] [facility] [place] [address] Phone [phone] Care Team Providers Care Central Supply Clerk Name Role Phone Endy Stanley DO Primary Care Provider [phone] Encounter Details Date Type Department Care Team (Late st Contact Info) Description 02/06/2024 Orders Only Gastroenterology, [facility] [address] [place] [address] Hilda Calvert DO [address] [place] [address] Allergies Active Allergy Reactions Criticality Noted Date Comments Codeine Hives 07/18/2012 Metformin Abdominal pain Low 03/30/2013 documented as of this encounter (statuses as of 02/06/2024) Medications Medication Sig Dispensed Refills Start Date [...] suspected opioid overdose. Seek immediate medical attention. [email or web address] Active Prochlorperazine Maleate 5 MG Oral Tablet [...] morning and 1 Tablet before bedtime. Active Ziyfinjpib-NBNK-Klzym ine 50-325-40 MG Oral Tablet (Fioricet) TAKE [...] as of this encounter (statuses as of 02/06/2024) Active Problems Problem Noted Date Diagnosed Date [...] as of this encounter (statuses as of 02/06/2024) Resolved Problems Problem Noted Date Diagnosed Date [...] as of this encounter (statuses as of 02/06/2024) Immunizations Name Administration Dates Next Due H1N1 [...] Description 02/19/2024 9:30 AM EDT [facility], [place] [address] [facility] [phone] [facility] [address] [facility] [address] 02/23/2024 10:30 AM EDT Office Visit Hematology/Oncology [facility] [place] [address] [facility] [phone] Sandra Evans MD [address] [facility] [place] [address] 04/23/2024 11:20 AM EDT Office Visit Hepatology [facility] [address] [place] [address] Hilda Calvert DO [address] [place] [address] 06/02/2024 9:00 AM EDT Office Visit Hepatology, [facility] [address] [place] [address] Hilda Calvert DO [address] [place] [address] 08/03/2024 4:00 PM EST Office Visit Dermatology [facility] [address] [place] [phone] Saran Knutson PA-C [address] [place] [address] Health Maintenance Due Date Last Done Comments Diabetic Eye Exam 1998 Hepatitis B (1 of 3 - 19+ 3-dose series) 12/09/1999 HPV/Co-Test 2010 Cervical Cancer Screening 09/08/2011 Pap Smear 09/08/2011 09/08/2008, 07/25, 01/13/2006, Additional history exists Albumin/Creatinine Ratio 11/25/2015 11/24/2014, 0802/2013 Depression Monitoring 10/15/2017 10/15/2016 Diabetic Foot Exam 05/14/2018 05/14/2017, 0 11/15/2015, 12/23/2014 DTaP,Tdap,and Td Vaccines (2 - Td or Tdap) 05/18/2019 05/18/2009 B-12 08/19/2019 08/19/2018 Mammogram 2020 HbA1c 03/01/2024 09/01/2023, 12/23, 01/23/2022, Additional history exists TSH 09/01/2024 09/01/2023, 04/26, 12/19/2016, Additional history exists GFR 01/29/2025 02/05/2024, 02/2024, 01/23/2024, Additional history exists Lipid Panel 10/23/2028 10/24/2023, [...] Priority Date/Time Associated Diagnosis Comments CHEMISTRY-OUTSIDE Routine 02/05/2024 documented in this encounter Results * (ABNORMAL) CHEMISTRY-OUTSIDE (02/05/2024) Not all results display below - see scan for full detail SCAN INCLUDES: CMP, OUTSIDE LAB (SEE SCANNED REPORT) CREATININE-OUTSID E LAB 0.89 0.6 - 1.2 MG/DL OUTSIDE LAB (SEE SCANNED REPORT) EGFR-OUTSIDE LAB 79.4 ML/MIN OUT SIDE LAB (SEE SCANNED REPORT) POTASSIUM-OUTSIDE LAB 3.7 3.5 - 5.1 MMOL/L OUTSIDE LAB (SEE SCANNED REPORT) GLUCOSE-OUTSIDE LAB 200(A) 70 - 99 MG/DL OUTSIDE LAB (SEE [...] LAB OUTSIDE LAB (SEE SCANNED REPORT) HEMOGLOBIN, [id number] LAB OUTSIDE LAB (SEE SCANNED REPORT) PHOSPHORUS-OUTSID E LAB OUTSIDE LAB (SEE SCANNED REPORT) PTH-OUTSIDE LAB OUTS GRECIA LAB (SEE SCANNED REPORT) MICROALBUMIN RATIO-OUTSIDE LAB OUTSIDE LA B (SEE SCANNED REPORT) PROTEIN, UA-OUTSIDE LAB OUTSIDE LAB (SEE SCANNED REPORT) HGB OUTSIDE LA B (SEE SCANNED REPORT) 02/05/2024 Hilda Calvert DO LABORATORY OUTSIDE LAB (SEE SCANNED REPORT) documented in this encounter Advance Directives * Full Code (Latest Code Status on File) Date Activated Date Inactivated Comments 10/15/2007 5:16 PM 10/17/2007 5:01 PM Care Teams Central Supply Clerk Relationship Specialty Start Date End Date Endy Stanley DO [address] [facility] [address] [place] [address] PCP - General Family Medicine 07/13/18 documented as of this encounter
--- OUTSIDE RECORDS SUMMARY | 2024-02-16 21:19 | External Medical Summary | Summary of Care ---
Author Name Unknown Organization [facility] Address [address] [facility] [place] [address] Phone [phone] Care Team Providers Care Core Maker Helper Name Role Phone Endy Stanley DO Primary Care Provider [phone] Encounter Details Date Type Department Care Team (Late st Contact Info) Description 02/12/2024 Orders Only Gastroenterology, [facility] [address] [place] [address] Hilda Calvert DO [address] [place] [address] Allergies Active Allergy Reactions Criticality Noted Date [...] suspected opioid overdose. Seek immediate medical attention. [email or web address] Active Prochlorperazine Maleate 5 MG Oral Tablet [...] morning and 1 Tablet before bedtime. Active Ebkvtznkqf-QEZN-Rbhir ine 50-325-40 MG Oral Tablet (Fioricet) TAKE [...] Description 02/19/2024 9:30 AM EDT Laboratory Laboratory, [place] [address] [place] [address] [facility] [address] [place] [address] 02/23/2024 10:30 AM EDT Office Visit Hematology/Oncology [facility] [address] [facility] [place] [phone] Sandra Evans MD [address] [facility] [place] [address] 04/23/2024 11:20 AM EDT Office Visit Hepatology, [facility] [address] [place] [address] Hilda Calvert DO [address] [place] [address] 06/02/2024 9:00 AM EDT Office Visit Hepatology [facility] [address] [address] Enrike Hilda Loyola, DO [address] [place] [address] 08/03/2024 4:00 PM EST Office Visit Dermatology [facility] [address] [place] [phone] Saran Knutson PA-C [address] [place] [address] Health Maintenance Due Date Last Done Comments [...] Procedure Name Priority Date/Time Associated Diagnosis Comments COMPREHENSIVE METABOLIC PANEL Routine 02/11/2024 documented in this encounter Results * (ABNORMAL) COMPREHENSIVE METABOLIC PANEL (02/11/2024) CREATININE-OUT SIDE LAB 1.25(A) 0.6 - 1.2 MG/DL OUTSIDE LAB (SEE SCANNED REPORT) EGFR-OUTSIDE LAB 52.6 ML/MIN OUTSIDE LAB (SEE SCANNED REPORT) POTASSIUM-OUTS GRECIA LAB 4.8 3.5 - 5.1 MMOL/L OUTSIDE LAB (SEE SCANNED REPORT) GLUCOSE-OUTSID E LAB 203(A) 70 - 99 MG/DL OUTSIDE LAB (SEE SCANNED REPORT) ALT-OUTSIDE LAB 33 7 - 52 U/L OUTSIDE LAB (SEE SCANNED REPORT) Blood Venous blood specimen / Unknown 02/11/2024 Hilda Calvert DO LAB BLOOD ARELIS SHANKAR OUTSIDE LAB (SEE SCANNED REPORT) documented in this encounter Advance Directives * Full Code (Latest Code Status on File) Date Activated Date Inactivated Comments 10/15/2007 5:16 PM 10/17/2007 5:01 PM Care Teams Core Maker Helper Relationship Specialty Start Date End Date Endy Stanley DO [address] [facility] [address] [place] [address] [place] [address] PCP - General Family Medicine 07/13/18 documented as of this encounter
--- NOTE | 2024-02-16 22:52 | Emergency Department Note ---
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 Vasculature: Unremarkable. No abdominal aortic aneurysm. Lymph nodes: Unremarkable. No enlarged lymph nodes. IMPRESSION: 1. Abdominal ascites. 2. Cholecystectomy. 3. Mild fecal retention, correlate for constipation. 4. Diverticulosis, without acute diverticulitis. No small bowel obstruction. No free intraperitoneal air. Electronically signed by: Lito Urias MD 02/17/24 02:14 AM Chest CTA 02/16/24 23:05 Exam(s): CTA CHEST IV Amt: 117 ML OPTIRAY 320 EXAM: CT Angiography Chest With Intravenous Contrast CLINICAL HISTORY: Reason for exam: PE. TECHNIQUE: Axial computed tomographic angiography images of the chest with intravenous contrast. CTDI is 25 mGy and DLP is 1477 mGy-cm. Automated exposure control was utilized for the study. A dose lowering technique was utilized adhering to the principles of ALARA. MIP reconstructed images were created and reviewed. COMPARISON: No relevant prior studies available. FINDINGS: Pulmonary arteries: No acute pulmonary embolism. Aorta: No acute findings. No thoracic aortic aneurysm. Lungs: Unremarkable. No mass. No pneumonia, pleural effusion, or pneumothorax. Pleural space: See above. Heart: Unremarkable. No cardiomegaly. No significant pericardial effusion. No evidence of RV dysfunction. Bones/joints: Degenerative changes of the spine. No acute fracture. No dislocation. Soft tissues: Unremarkable. Lymph nodes: Unremarkable. No enlarged lymph nodes. Liver: Hepatic cirrhosis. Splenomegaly. Ascites. Stomach and bowel: Gastric sleeve. IMPRESSION: 1. No acute pulmonary embolism. 2. No pneumonia, pleural effusion, or pneumothorax. 3. Hepatic cirrhosis. Splenomegaly. Ascites. Electronically signed by: Lito Urias MD 02/17/24 01:48 AM Venous Doppler Study 02/16/24 23:05 Exam(s): US VENOUS BILATERAL LOWER EXTREMITIES EXAM: US Duplex Bilateral Lower Extremities Veins CLINICAL HISTORY: Reason for exam: Erythema and edema not imp with abx - eval DVT. TECHNIQUE: Real-time duplex ultrasound scan of the bilateral lower extremity veins integrating B-mode two-dimensional vascular structure, Doppler spectral analysis, color flow Doppler imaging and compression. COMPARISON: US Duplex Lower Extremity Veins dated 08/01/2023 FINDINGS: Right deep veins: Unremarkable. No DVT in the right common femoral, femoral, proximal deep femoral or popliteal veins. The veins demonstrate normal color flow, are normally compressible, with normal phasic flow and/or augmentation response. Right superficial veins: Unremarkable. No thrombus in the visualized right great saphenous vein. Left deep veins: Unremarkable. No DVT in the left common femoral, femoral, proximal deep femoral or popliteal veins. The veins demonstrate normal color flow, are normally compressible, with normal phasic flow and/or augmentation response. Left superficial veins: Unremarkable. No thrombus in the visualized left great saphenous vein. Soft tissues: No acute findings. No popliteal cyst. IMPRESSION: No DVT in bilateral lower extremities. Electronically signed by: Sni Palmer M.D. 02/17/24 03:53 AM Discharge Plan Visit Data Chief Complaint: Referred by Doctor Stated Complaint: CELLULITIS GAINED 55 LBS ED Provider: Sheldon Lujan ED Midlevel Provider: Radha Silva Discharge Problem: Bilateral lower leg cellulitis, Fluid overload, Anemia, Hepatic encephalopathy, Liver cirrhosis secondary to DUNAWAY Patient Disposition: Admitted As Inpatient Condition: Good Discharge Instructions Interventions: ED Discharge Assessment Last Done: 02/17/24 05:26 Discharge Problem: Fluid overload Qualifiers: Hypervolemia type: unspecified Qualified Code(s): E87.70 - Fluid overload, unspecified Anemia Qualifiers: Anemia type: unspecified type Qualified Code(s): D64.9 - Anemia, unspecified
[2024-02-16] MEDS ORDERED: VANCOMYCIN CONSULT ACTIVE PRN (23:12)
[2024-02-16 23:17] LABS: Appearance Urine Cloudy (Clear); Bacteria Urine Automated None Seen (None Seen); Bilirubin Urine Negative (Negative); Blood Urine Negative (Negative); Cast Urine Automated 0-2 /lpf (0-2); Color Urine Yellow; Epithelial Cell Urine Auto 0-2 /hpf (0-2); Glucose Urine UA Negative (Negative); Ketones Urine Negative (Negative); Leukocyte Esterase Urine Negative (Negative); Nitrite Urine Negative (Negative); Protein Urine Negative (Negative); RBC Urine Automated 0-2 /hpf (0-2); Specific Gravity Urine 1.016 (1.000-1.030); Urobilinogen Urine Negative (Negative); WBC Urine Automated 0-5 /hpf (0-5); pH Urine 5.5 (4.5-7.5)
[2024-02-16 23:45] LABS: Troponin I High Sensitivity 4.1 pg/ml (0-14)
[2024-02-17 00:07] LABS: INR 1.3 (0.9-1.1); Partial Thromboplastin Time 27 Seconds (21-31)
[2024-02-17] MEDS: OPTIRAY 320 125ml IV ONE (00:09)
[2024-02-17] MEDS: cefTRIAXone SODIUM 2,000 MG/50 ML BAG IV STA (00:21)
--- NOTE | 2024-02-17 01:49 | CT Scan Report ---
Exam(s): CTA CHEST IV Amt: 117 ML OPTIRAY 320 EXAM: CT Angiography Chest With Intravenous Contrast CLINICAL HISTORY: Reason for exam: PE. TECHNIQUE: Axial computed tomographic angiography images of the chest with intravenous contrast. CTDI is 25 mGy and DLP is 1477 mGy-cm. Automated exposure control was utilized for the study. A dose lowering technique was utilized adhering to the principles of ALARA. MIP reconstructed images were created and reviewed. COMPARISON: No relevant prior studies available. FINDINGS: Pulmonary arteries: No acute pulmonary embolism. Aorta: No acute findings. No thoracic aortic aneurysm. Lungs: Unremarkable. No mass. No pneumonia, pleural effusion, or pneumothorax. Pleural space: See above. Heart: Unremarkable. No cardiomegaly. No significant pericardial effusion. No evidence of RV dysfunction. Bones/joints: Degenerative changes of the spine. No acute fracture. No dislocation. Soft tissues: Unremarkable. Lymph nodes: Unremarkable. No enlarged lymph nodes. Liver: Hepatic cirrhosis. Splenomegaly. Ascites. Stomach and bowel: Gastric sleeve. IMPRESSION: 1. No acute pulmonary embolism. 2. No pneumonia, pleural effusion, or pneumothorax. 3. Hepatic cirrhosis. Splenomegaly. Ascites. Electronically signed by: Lito Urias MD 02/17/24 01:48 AM
[2024-02-17] MEDS: LACTULOSE SYRUP 30 GM/45 ML UDP PO STA (01:50)
[2024-02-17] MEDS: rifAXIMin 550 MG TABLET PO ONE (01:50)
[2024-02-17] MEDS: BUMETANIDE 3 MG in SYRINGE 0 ML IV ONE (01:52)
[2024-02-17] MEDS: VANCOMYCIN HCL 2,000 MG in SODIUM CHLORIDE 0.9% 500 ML IV ONE (01:55)
--- NOTE | 2024-02-17 02:14 | CT Scan Report ---
Exam(s): CT ABDOMEN + PELVIS With Contrast IV Amt: 117 ML OPTIRAY 320 EXAM: CT Abdomen and Pelvis With Intravenous Contrast CLINICAL HISTORY: Reason for exam: abdominal pain, h/o cirrhosis and ascites. TECHNIQUE: Axial computed tomography images of the abdomen and pelvis with intravenous contrast. CTDI is 25 mGy and DLP is 1477 mGy-cm. Automated exposure control was utilized for the study. A dose lowering technique was utilized adhering to the principles of ALARA. CONTRAST: Patient received 117 ML OPTIRAY 320 of IV contrast COMPARISON: No relevant prior studies available. FINDINGS: Lung bases: Unremarkable. No mass. No consolidation. ABDOMEN: Liver: Unremarkable. No mass. Gallbladder and bile ducts: Cholecystectomy. No ductal dilation. Pancreas: Unremarkable. No mass. No ductal dilation. Spleen: Unremarkable. No splenomegaly. Adrenals: Unremarkable. No mass. Kidneys and ureters: Unremarkable. No solid mass. No hydronephrosis. Stomach and bowel: Mild fecal retention, correlate for constipation. Diverticulosis, without acute diverticulitis. No small bowel obstruction. No free intraperitoneal air. PELVIS: Appendix: No findings to suggest acute appendicitis. Bladder: Unremarkable. No mass. Reproductive: Unremarkable as visualized. ABDOMEN and PELVIS: Intraperitoneal space: Abdominal ascites. No free air. Bones/joints: No acute fracture. No dislocation. Soft tissues: Anasarca. Vasculature: Unremarkable. No abdominal aortic aneurysm. Lymph nodes: Unremarkable. No enlarged lymph nodes. IMPRESSION: 1. Abdominal ascites. 2. Cholecystectomy. 3. Mild fecal retention, correlate for constipation. 4. Diverticulosis, without acute diverticulitis. No small bowel obstruction. No free intraperitoneal air. Electronically signed by: Lito Urias MD 02/17/24 02:14 AM
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
--- NOTE | 2024-02-17 03:55 | Ultrasound Report ---
Exam(s): US VENOUS BILATERAL LOWER EXTREMITIES EXAM: US Duplex Bilateral Lower Extremities Veins CLINICAL HISTORY: Reason for exam: Erythema and edema not imp with abx - eval DVT. TECHNIQUE: Real-time duplex ultrasound scan of the bilateral lower extremity veins integrating B-mode two-dimensional vascular structure, Doppler spectral analysis, color flow Doppler imaging and compression. COMPARISON: US Duplex Lower Extremity Veins dated 08/01/2023 FINDINGS: Right deep veins: Unremarkable. No DVT in the right common femoral, femoral, proximal deep femoral or popliteal veins. The veins demonstrate normal color flow, are normally compressible, with normal phasic flow and/or augmentation response. Right superficial veins: Unremarkable. No thrombus in the visualized right great saphenous vein. Left deep veins: Unremarkable. No DVT in the left common femoral, femoral, proximal deep femoral or popliteal veins. The veins demonstrate normal color flow, are normally compressible, with normal phasic flow and/or augmentation response. Left superficial veins: Unremarkable. No thrombus in the visualized left great saphenous vein. Soft tissues: No acute findings. No popliteal cyst. IMPRESSION: No DVT in bilateral lower extremities. Electronically signed by: Sin Palmer M.D. 02/17/24 03:53 AM
[2024-02-17] MEDS ORDERED: VANCOMYCIN HCL 1,000 MG in SODIUM CHLORIDE 0.9% 250 ML IV SCH ×2 (06:10→14:00)
[2024-02-17] MEDS ORDERED: GLUCOSE 40% GEL 15 GM TUBE PO PRN (06:10)
[2024-02-17] MEDS ORDERED: GLUCAGON FOR INJ 1 MG VIAL SQ PRN (06:10)
[2024-02-17] MEDS ORDERED: DEXTROSE 50% 50 ML SYRINGE IV PRN (06:10)
[2024-02-17] MEDS ORDERED: GLUCOSE 10 TAB/TUBE PO PRN (06:10)
[2024-02-17] MEDS ORDERED: CARBOHYDRATES FOR HYPOGLYCEMIA PO PRN (06:10)
[2024-02-17] MEDS ORDERED: VANCOMYCIN CONSULT ACTIVE PRN ×2 (06:10→06:41)
[2024-02-17] MEDS ORDERED: CALCIUM CARBONATE 500 MG CHEWABLE TAB PO PRN (06:35)
[2024-02-17] MEDS ORDERED: SIMETHICONE 80 MG CHEW PO PRN (06:36)
[2024-02-17 07:27] LABS: Creatinine Clr Calc Pharmacy 88.1 ml/min; Est GFR (Non-African American) 73.4 ml/min
--- NOTE | 2024-02-17 07:29 | Hospitalist Progress Note ---
Date of Service February 17, 2024 Assessment & Plan (1) Cellulitis: Plan: -Patient had a trial of doxycycline which seemed to improve the cellulitis though this was changed on Friday to Keflex and Bactrim. -Started on vancomycin and ceftriaxone in the ED. Will continue on vancomycin at this time and monitor for improvement. -Venous Doppler study bilateral negative for DVT. -Most likely has underlying venous stasis prolonging course of cellulitis. (2) Hepatic encephalopathy: Plan: -Ammonium of 116 at time of admission. It was noted that patient had slightly slurring her speech in the ED. -Chest CTA showed no pulmonary embolism. -Lactulose 30 mg and rifaximin 550 mg given in the ED. -Will continue on lactulose 30 mg 3 times daily and rifaximin 150 mg twice daily. -Will check a management in the a.m., may need to increase dosing. -Will monitor with serial exams. (3) Fluid overload: Plan: Patient with abdominal ascites status post paracentesis as well as lower extremity swelling secondary to cellulitis. -Patient's lower extremity edema most likely multifactorial due to cellulitis with chronic venous stasis as well as her liver cirrhosis. -Bumex 3 mg IV given in the ED. -Will continue home Bumex. Creatinine stable at this time, will continue monitoring BMP. -Patient's abdominal ascites will be addressed by thoracentesis. -Patient without any shortness of breath and is satting well on room air. (4) Hypokalemia: Plan: -Potassium of 3.3. -Continue on potassium chloride 20 mEq twice daily. (5) Anemia: Plan: -Patient with a hemoglobin of 7.9. -Iron studies added onto a.m. labs. -Has required transfusion of blood in the past. (6) Diabetes type 2, controlled: Plan: - Patient's home regimen held on admission - Continue BSG checks, sliding-scale insulin, hypoglycemic protocol -Hemoglobin A1c added onto morning labs. Admission and Anticipated Discharge Date Admission Date: February 17, 2024 Results & Data Results & Data Vital Signs (Past 12 Hours) Vital Signs Temp Pulse Pulse Pulse Resp BP BP 02/17/24 07:07 36.6 C 76 16 133/78 02/17/24 06:44 02/17/24 06:25 36.7 C 97 H 18 124/76 02/17/24 04:04 76 18 117/65 02/17/24 02:33 144/82 H 02/17/24 02:00 73 21 109/84 02/17/24 02:00 76 22 109/84 02/17/24 01:54 75 21 02/17/24 00:36 02/16/24 23:54 79 20 02/16/24 23:42 78 17 02/16/24 23:39 75 19 02/16/24 23:27 78 21 136/77 02/16/24 23:20 75 02/16/24 23:00 76 20 136/77 Pulse Ox O2 Del Method 02/17/24 07:07 97 Room Air 02/17/24 06:44 Room Air 02/17/24 06:25 97 Room Air 02/17/24 04:04 96 Room Air 02/17/24 02:33 02/17/24 02:00 99 Room Air 02/17/24 02:00 98 Room Air 02/17/24 01:54 02/17/24 00:36 98 02/16/24 23:54 96 02/16/24 23:42 96 02/16/24 23:39 97 02/16/24 23:27 98 Room Air 02/16/24 23:20 02/16/24 23:00 97 Room Air (3) Fluid overload Hypervolemia type: unspecified Qualified Code(s): E87.70 - Fluid overload, unspecified (5) Anemia Anemia type: unspecified type Qualified Code(s): D64.9 - Anemia, unspecified
--- NOTE | 2024-02-17 07:54 | Hospitalist Progress Note ---
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 Lower extremity erythema and edema -Most likely has underlying venous stasis prolonging course of cellulitis. -Venous Doppler study bilateral negative for DVT. -s/p doxycycline, Cefepime, Keflex, Bactrim, Vancomycin, ceftriaxone * Discontinued vancomycin and ceftriaxone * Ordered cefazolin Acute Hepatic encephalopathy -Ammonium of 116 at time of admission. Slight slurring of speech in ED. -Chest CTA negative for PE -s/p: Lactulose 30 mg and rifaximin 550 mg given in the ED. -IR consulted, appreciate recommendations. * Continue Bumex 2 mg PO BID, lactulose 30 mg TID, rifaximin 150 mg BID Fluid overload in the setting of 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 -Patient with liver 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. 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 Has paracentesis done 1-2 times a week -Patient s/p paracentesis 02/15 with approximately 6 L removed. Patient with LE edema and abdominal ascites s/p paracentesis -No SOB, satting well on room air. -Creatinine stable, albumin WNL. -CT abd/pelvis positive for abdominal ascites. -s/p Bumex 3 mg IV given in the ED. -Consulted IR for paracentesis, appreciate recommendations * Continue home Bumex (as above) * Continue monitoring BMP * Strict Is and Os. Standing weights. * Patient's abdominal ascites will be addressed by paracentesis. Normocytic Anemia - Chronic -Has required transfusion of blood in the past. -On admission, hemoglobin 7.9 * Iron studies pending, will consider IV iron depending on results Headache, acute * Ordered Ibuprofen 600 mg Mood disorder * Continue Effexor 150 mg Hypokalemia -On admission, potassium of 3.3. * Continue on potassium chloride 20 mEq BID. GERD - Chronic * Continue Pepcid. * D/c Compazine due to medication interaction. Ordered Zofran. Restless Leg Syndrome - Chronic * Continue Mirapex Elevated PT/INR in the setting of liver cirrhosis - Chronic -On admission, PT 14, INR 1.3. FEN: Regular diet DVT ppx: SCDs Consults: IR (2) Hepatic encephalopathy: (3) Fluid overload: (4) Hypokalemia: (5) Anemia: (6) Diabetes type 2, controlled: Admission and Anticipated Discharge Date Admission Date: February 17, 2024 Supervising Physician Co-Signing Physician Notes Attending Physician Supervision Note: I independently interviewed and examined the patient and verified the norton history and physical, reviewed labs and image studies and agree with findings and care plan noted above. leg swelling and redness present. denies pain in legs. denied abdominal pain. AAOX3, no resp distress, RRR, abdomen - distended, dressing on left side at paracentesis site, bilateral leg edema. right leg with pronounced erythema, left with more venous stasis changes. Leg cellulitis - transitioned abx to cefazolin Elevated ammonia/Cirrhosis/PoHTN - no encephalopathic sign. continue lactulose and rifaximin Ascites - had a long gap from last paracentesis. had it on 02/15 with 6L out. next one planned tomorrow. -continue spironolactone. Fluid overload - on bumex 3mgs bid at home. s/p 2mgs IV dose on admission. follow for further dose need. Anemia - h/o iron deficiency and needing IV iron infusions. consider infusion once infection clears. SCD Subjective No overnight events. Pain control: Endorsing headache and mild epigastric pain. Bowel/bladder concerns: Patient is able to urinate without concern. Nutritional Status: Has been able to eat and drink without concern. Patient requests that her diet be changed from DM to Regular, and that she receive her home Pepcid and Compazine Mobility: Has been able to ambulate without assistance or issue. She requests to take a shower. The patient had a paracentesis prior to presentation on 02/15 with about 6 L removed, but still feels like there is fluid that needs to be removed. She reports a "45 pound weight gain over the past 3 weeks" with worsening SOB. She reports taking three 1 mg pills of Bumex twice a day, once in the morning and once in the evening, for a total of 6 mg per day. She has been on this routine for over a year and takes the medication as prescribed. Her local pump machine operator is current on maternity leave. Dr. Bhatt is her transplant doctor in [place]. She was added to the transplant list in [place] 3 weeks ago and is working on getting on the list with Jessica. She follows with hematology (Tasha Chávez) for iron deficiency anemia. The patient states that she is due for IV iron bolus. She has received IV from from Dr. Gary, most recently in July, and Dr. Garcia, once weekly for the past two weeks. Review of Systems 2 Review of Systems: See HPI, otherwise negative Physical Exam 2 Physical Exam: Constitutional: well-appearing, no acute distress HEENT: NCAT, no conjunctival injection. Dilated pupils at baseline PERRL. CV: regular rhythm, no murmur appreciated, extremities well-perfused. Resp: CTABL, no wheezes/rales/rhonchi appreciated, no increased work of breathing GI: firm, distended, tender to light palpation in the entire epigastric region. MSK: no gross deformities appreciated Skin: Bilateral lower extremities with erythema most prominent on the anterior aspects, extending posteriorly, worse on right. 1+ pitting edema bilaterally. Neuro: alert, oriented, no focal neurologic deficit appreciated. Bilateral hand tremor appreciated. Results & Data Results & Data Vital Signs (Past 12 Hours) Vital Signs Temp Pulse Pulse Pulse Resp BP BP 02/17/24 07:07 97.9 F 76 16 133/78 02/17/24 06:44 02/17/24 06:25 98.1 F 97 H 18 124/76 02/17/24 04:04 76 18 117/65 02/17/24 02:33 144/82 H 02/17/24 02:00 73 21 109/84 02/17/24 02:00 76 22 109/84 02/17/24 01:54 75 21 02/17/24 00:36 02/16/24 23:54 79 20 02/16/24 23:42 78 17 02/16/24 23:39 75 19 02/16/24 23:27 78 21 136/77 02/16/24 23:20 75 02/16/24 23:00 76 20 136/77 Pulse Ox O2 Del Method 02/17/24 07:07 97 Room Air 02/17/24 06:44 Room Air 02/17/24 06:25 97 Room Air 02/17/24 04:04 96 Room Air 02/17/24 02:33 02/17/24 02:00 99 Room Air 02/17/24 02:00 98 Room Air 02/17/24 01:54 02/17/24 00:36 98 02/16/24 23:54 96 02/16/24 23:42 96 02/16/24 23:39 97 02/16/24 23:27 98 Room Air 02/16/24 23:20 02/16/24 23:00 97 Room Air Laboratory Results 02/16/24 20:03 02/17/24 06:51 Medications Administered Current Inpatient Medications Bumetanide (Bumetanide 1 Mg Tab) 2 mg PO BID17 [facility] Stop: 03/18/24 08:59 Last Admin: 02/17/24 08:53 Dose: 2 mg Calcium Carbonate (Calcium Carbonate 500 Mg Chewable Tab) 500 mg PO TIDM PRN PRN Reason: INDIGESTION Stop: 03/18/24 06:34 Dextrose (Dextrose 50% 50 Ml Syringe) 25 - 50 ml IV UD PRN; Protocol PRN Reason: Hypoglycemia Protocol Stop: 03/18/24 06:09 Glucagon (Glucagon For Inj 1 Mg Vial) 1 mg SQ UD PRN; Protocol PRN Reason: Hypoglycemia Protocol Stop: 03/18/24 06:09 Glucose (Glucose 40% Gel 15 Gm Tube) 15 - 30 gm PO UD PRN; Protocol PRN Reason: Hypoglycemia Protocol Stop: 03/18/24 06:09 Glucose (Glucose 10 Tab/Tube) 4 - 8 tab PO UD PRN; Protocol PRN Reason: Hypoglycemia Treatment Stop: 03/18/24 06:09 Cefazolin Sodium (Ancef 2000mg) 2,000 mg in 15 mls @ 3.75 mls/min IV Q8H [facility] Stop: 02/24/24 13:59 Ibuprofen (Ibuprofen 600 Mg Tab) 600 mg PO Q8H [facility] Stop: 03/18/24 12:59 Insulin Aspart (Insulin Aspart Per Unit Charge) 0 units SC ACHS [facility] Stop: 03/18/24 07:29 Last Admin: 02/17/24 12:21 Dose: 7 units Lactulose (Lactulose Syrup 30 Gm/45 Ml Udp) 30 gm PO TID [facility] Stop: 03/18/24 08:59 Last Admin: 02/17/24 08:54 Dose: 30 gm Magnesium Oxide (Magnesium Oxide 400 Mg Tab) 400 mg PO DAILY [facility] Stop: 03/18/24 08:59 Last Admin: 02/17/24 08:54 Dose: 400 mg Miscellaneous (Carbohydrates For Hypoglycemia ) 15 - 30 gm PO UD PRN PRN Reason: Hypoglycemia Protocol Stop: 03/18/24 06:09 Potassium Chloride (Potassium Chloride Crtab 20 Meq Tabcr) 20 meq PO BID [facility] Stop: 03/18/24 08:59 Last Admin: 02/17/24 08:54 Dose: 20 meq Pramipexole Dihydrochloride (Pramipexole Dihydrochlo 0.5 Mg Tab) 0.5 mg PO TID [facility] Stop: 03/18/24 08:59 Last Admin: 02/17/24 08:54 Dose: 0.5 mg Rifaximin (Rifaximin 550 Mg Tablet) 550 mg PO BID [facility] Stop: 03/18/24 08:59 Last Admin: 02/17/24 08:55 Dose: 550 mg Simethicone (Simethicone 80 Mg Chew) 80 mg PO TIDM PRN PRN Reason: GAS/BLOATING Stop: 03/18/24 06:35 Spironolactone (Spironolactone 100 Mg Tab) 100 mg PO BID17 [facility] Stop: 03/18/24 08:59 Venlafaxine HCl (Venlafaxine Hcl Xr 75 Mg Capxr) 75 mg PO DAILY [facility] Stop: 03/18/24 08:59 Last Admin: 02/17/24 08:55 Dose: 75 mg Venlafaxine HCl (Venlafaxine Hcl Xr 150 Mg Capxr) 150 mg PO DAILY [facility] Stop: 03/18/24 08:59 Last Admin: 02/17/24 08:55 Dose: 150 mg Vitamin D (Cholecalciferol 125 Mcg (5,000 Units) Tab) 125 mcg PO QAM [facility] Stop: 03/18/24 08:59 Last Admin: 02/17/24 10:44 Dose: 125 mcg (3) Fluid overload Hypervolemia type: unspecified Qualified Code(s): E87.70 - Fluid overload, unspecified (5) Anemia Anemia type: unspecified type Qualified Code(s): D64.9 - Anemia, unspecified
[2024-02-17] MEDS: BUMETANIDE 1 MG TAB PO SCH (08:53)
[2024-02-17] MEDS: LACTULOSE SYRUP 30 GM/45 ML UDP PO SCH (08:54)
[2024-02-17] MEDS: PRAMIPEXOLE DIHYDROCHLO 0.5 MG TAB PO SCH (08:54)
[2024-02-17] MEDS: MAGNESIUM OXIDE 400 MG TAB PO SCH (08:54)
[2024-02-17] MEDS: POTASSIUM CHLORIDE CRTAB 20 MEQ TABCR PO SCH (08:54)
[2024-02-17] MEDS: VENLAFAXINE HCL XR 150 MG CAPXR PO SCH (08:55)
[2024-02-17] MEDS: VENLAFAXINE HCL XR 75 MG CAPXR PO SCH (08:55)
[2024-02-17] MEDS: rifAXIMin 550 MG TABLET PO SCH (08:55)
[2024-02-17] MEDS: INSULIN ASPART PER UNIT CHARGE SC SCH (08:59)
--- NOTE | 2024-02-17 09:09 | Pharmacy Report ---
Pharmacy PK ABX Note - Date of Service February 17, 2024 - Assessment and Plan Assessment 43 year old F started on vancomycin/cefepime for BLE cellulitis. Was previously on course of doxycycline, but then changed to keflex/bactrim and presenting to hospital with worsening cellulitis. PMHx significant for liver cirrhosis, T2DM, recent visits for paracentesis. Chest CT negative for PE/pneumonia, venous doppler negative for DVT. Blood cultures x 2 are pending. Plan Vancomycin * Loading dose: 2000 mg iv x 1 (given in ER) * Maintenance dose: 1000 mg IV every 12 hours * Regimen is predicted to achieve target AUC/NAJMA of 400-600 mg/L.hr * Plan to collect random vancomycin level if plan is to continue >48 hours Pharmacy will continue to follow and will adjust dose/frequency as necessary. Thank you. Pharmacy has transitioned to AUC monitoring for vancomycin. AUC/NAJMA is the preferred PK/PD target and is associated with decreased risk of nephrotoxicity compared to traditional trough targets.
[2024-02-17] MEDS: CEFEPIME 2,000 MG in SYRINGE 0 ML IV SCH (10:44)
[2024-02-17] MEDS: CHOLECALCIFEROL 125 MCG (5,000 UNITS) TAB PO SCH (10:44)
--- NOTE | 2024-02-17 10:45 | Electrocardiogram Report ---
Test Reason : Blood Pressure : / mmHG Vent. Rate : 080 BPM Atrial Rate : 080 BPM P-R Int : 156 ms QRS Dur : 096 ms QT Int : 514 ms P-R-T Axes : 014 -31 020 degrees QTc Int : 592 ms Normal sinus rhythm Incomplete right bundle branch block Poor R wave progression, consider anterior WA vs. lead placement vs. LVH Left axis deviation Prolonged QT Abnormal ECG When compared with ECG of 23-DEC-2023 09:59, No significant change Confirmed by Sin Wren ([id number]) on 02/17/2024 10:45:38 AM Referred By: Spenser Shrestha Confirmed By:Sin Wren
[2024-02-17] MEDS ORDERED: VANCOMYCIN HCL 1,500 MG in SODIUM CHLORIDE 0.9% 500 ML IV SCH (11:00)
[2024-02-17] MEDS: SPIRONOLACTONE 100 MG TAB PO SCH (13:55)
[2024-02-17] MEDS: IBUPROFEN 600 MG TAB PO SCH (13:55)
[2024-02-17] MEDS: ceFAZolin 2000MG 2,000 MG/15 ML SYR IV SCH (13:55)
[2024-02-17] MEDS ORDERED: SERTRALINE HCL 50 MG TABLET PO SCH (19:30)
[2024-02-17] MEDS: SERTRALINE HCL 100 MG TABLET PO SCH (20:26)
[2024-02-17] MEDS: ONDANSETRON 4 MG OD TAB PO PRN (22:54)
[2024-02-18] MEDS: LEVOTHYROXINE SODIUM 100 MCG TABLET PO SCH (05:30)
[2024-02-18] MEDS: LEVOTHYROXINE SODIUM 25 MCG TABLET PO SCH (05:30)
[2024-02-18 07:15] LABS: BUN Creatinine Ratio 17.6 (10-20); Calcium 8.1 mg/dl (8.6-10.3); Creatinine Clr Calc Pharmacy 91.5 ml/min; Est GFR (African American) 89.6 ml/min; Est GFR (Non-African American) 77.3 ml/min; Potassium 3.1 mmol/L (3.5-5.1)
[2024-02-18 07:16] LABS: Basophils # (auto) 0.03 K/uL (0.00-0.20); Basophils % (auto) 0.9 %; Eosinophils # (auto) 0.23 K/uL (0.00-0.50); Eosinophils % (auto) 7.2 %; Hematocrit (blood only) 24.5 % (37.0-47.0); Hemoglobin 7.5 g/dl (12.0-16.0); Immature Granulocytes # (auto) 0.01 K/uL (0.01-0.20); Immature Granulocytes % (auto) 0.3 %; Lymphocytes % (auto) 9.4 %; Mean Corpuscular Hemoglobin 26.4 pg (25.0-34.0); Mean Corpuscular Hgb Conc 30.6 g/dL (32.0-36.0); Mean Corpuscular Volume 86.3 fL (80.0-100.0); Mean Platelet Volume 10.5 fL (9.4-12.4); Monocytes # (auto) 0.41 K/uL (0.11-0.59); Monocytes % (auto) 12.8 %; Neutrophils # (auto) 2.22 K/uL (1.40-6.50); Neutrophils % (auto) 69.4 %; Platelet Count 53 K/uL (130-400); RDW Coefficient of Variation 21.9 % (11.5-14.5); RDW Standard Deviation 67.1 fL (36.4-46.3); Red Blood Count 2.84 M/uL (4.20-5.40)
[2024-02-18 07:19] LABS: INR 1.3 (0.9-1.1); Partial Thromboplastin Time 27 Seconds (21-31)
[2024-02-18 07:27] LABS: Estimated Average Glucose 103 mg/dl; Hemoglobin A1C 5.2 % (4.5-5.6)
[2024-02-18 07:35] LABS: Ferritin 89.9 ng/ml (8-388)
[2024-02-18 07:56] LABS: Anisocytosis Present; Polychromasia 1+; Tear Drop Cells 1+
[2024-02-18] MEDS: FAMOTIDINE 40 MG TABLET PO SCH (08:01)
[2024-02-18] MEDS: POTASSIUM CHLORIDE CRTAB 20 MEQ TABCR PO SCH (08:07)
--- NOTE | 2024-02-18 10:02 | Hospitalist Progress Note ---
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 Lower extremity erythema and edema - Resolving -Most likely has underlying venous stasis prolonging course of cellulitis. -Venous Doppler study bilateral negative for DVT. -s/p doxycycline, Cefepime, Keflex, Bactrim, Vancomycin, ceftriaxone * Planning to switch cefazolin IV to cephalexin PO Acute Hepatic encephalopathy -Ammonium of 116 at time of admission. Slight slurring of speech in ED. -Chest CTA negative for PE -s/p: Lactulose 30 mg and rifaximin 550 mg given in the ED. -IR consulted, appreciate recommendations. * Continue Bumex 2 mg PO BID, lactulose 30 mg TID, rifaximin 150 mg BID Fluid overload in the setting of 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 -Follows with hepatology, Has paracentesis done 1-2 times a wee.k -Patient s/p paracentesis 02/15 with approximately 6 L removed. Patient with LE edema and abdominal ascites s/p paracentesis -No SOB, satting well on room air. -Creatinine stable, albumin WNL. -CT abd/pelvis positive for abdominal ascites. -s/p Bumex 3 mg IV given in the ED. -Consulted IR for paracentesis, appreciate recommendations * Continue home Bumex (as above) * Strict Is and Os. Standing weights. * Patient's abdominal ascites will be addressed by paracentesis today or Friday. Normocytic Anemia - Chronic -Has required transfusion of blood in the past. -On admission, hemoglobin 7.9. Stable. -Iron studies suggestive of anemia in the context of acute inflammation * Patient unable to receive IV iron in the setting of acute illness. Mood disorder * Continue Effexor 150 mg Hypokalemia -On admission, potassium of 3.3. * Continue on potassium chloride 20 mEq BID. GERD - Chronic * Continue Pepcid. * D/c Compazine due to medication interaction. Ordered Zofran. Restless Leg Syndrome - Chronic * Continue Mirapex Elevated PT/INR in the setting of liver cirrhosis - Chronic -On admission, PT 14, INR 1.3. Stable. FEN: Regular diet DVT ppx: SCDs Consults: IR (2) Hepatic encephalopathy: (3) Fluid overload: (4) Hypokalemia: (5) Anemia: (6) Diabetes type 2, controlled: Admission and Anticipated Discharge Date Admission Date: February 17, 2024 Supervising Physician Co-Signing Physician Notes Attending Physician Supervision Note: I independently interviewed and examined the patient and verified the norton history and physical, reviewed labs and image studies and agree with findings and care plan noted above. leg swelling and redness improving. denies pain in legs. denied abdominal pain. AAOX3, no resp distress, abdomen - distended, soft. bilateral leg edema improving. right leg erythema much improved. Leg cellulitis - switch abx to PO - keflex. Elevated ammonia/Cirrhosis/PoHTN - no encephalopathic sign. continue lactulose and rifaximin Ascites - had a long gap from last paracentesis. had it on 02/15 with 6L out. repeat planned 02/18. -continue spironolactone. Fluid overload - on bumex 3mgs bid at home. s/p 2mgs IV dose on admission. I and O not accurate but consistent weight loss noted. Anemia - h/o iron deficiency and needing IV iron infusions. consider infusion as outpatient once infection clears. SCD Subjective No overnight events. Pain control: Continued mild epigastric pain. Bowel/bladder concerns: Patient is able to urinate without concern. Nutritional Status: Has been able to eat and drink without concern. Mobility: Has been able to ambulate without assistance or issue. Patient is scheduled to get paracentesis today. In the past she has experienced constipation with oral iron. If needed, she is willing to try it again with Miralax. Review of Systems 2 Review of Systems: See HPI, otherwise negative Physical Exam 2 Physical Exam: Constitutional: well-appearing, no acute distress HEENT: NCAT, no conjunctival injection. Dilated pupils at baseline PERRL. CV: regular rhythm, no murmur appreciated, extremities well-perfused. Resp: CTABL, no wheezes/rales/rhonchi appreciated, no increased work of breathing GI: firm, distended, tender to light palpation in the entire epigastric region. MSK: no gross deformities appreciated Skin: B/l LE with erythema most prominent on the anterior aspects, extending posteriorly, worse on right, improving. Two areas of circular (approximately 2 mm diameter) erythema, partially cleared center with multiple small erythematous dots, one on right lateral inferior breast, one 1-2 inches below the right lateral inframammary fold. Neuro: alert, oriented, no focal neurologic deficit appreciated. Bilateral hand tremor appreciated. Results & Data Results & Data Vital Signs (Past 12 Hours) Vital Signs Temp Pulse Resp BP Pulse Ox O2 Del Method 02/18/24 06:54 97.9 F 78 16 134/80 97 Room Air Laboratory Results 02/18/24 06:35 02/18/24 06:35 Medications Administered Current Inpatient Medications Bumetanide (Bumetanide 1 Mg Tab) 2 mg PO BID17 [facility] Stop: 03/18/24 08:59 Last Admin: 02/18/24 08:01 Dose: 2 mg Calcium Carbonate (Calcium Carbonate 500 Mg Chewable Tab) 500 mg PO TIDM PRN PRN Reason: INDIGESTION Stop: 03/18/24 06:34 Dextrose (Dextrose 50% 50 Ml Syringe) 25 - 50 ml IV UD PRN; Protocol PRN Reason: Hypoglycemia Protocol Stop: 03/18/24 06:09 Famotidine (Famotidine 40 Mg Tablet) 40 mg PO QAM [facility] Stop: 03/19/24 08:59 Last Admin: 02/18/24 08:01 Dose: 40 mg Glucagon (Glucagon For Inj 1 Mg Vial) 1 mg SQ UD PRN; Protocol PRN Reason: Hypoglycemia Protocol Stop: 03/18/24 06:09 Glucose (Glucose 40% Gel 15 Gm Tube) 15 - 30 gm PO UD PRN; Protocol PRN Reason: Hypoglycemia Protocol Stop: 03/18/24 06:09 Glucose (Glucose 10 Tab/Tube) 4 - 8 tab PO UD PRN; Protocol PRN Reason: Hypoglycemia Treatment Stop: 03/18/24 06:09 Cefazolin Sodium (Ancef 2000mg) 2,000 mg in 15 mls @ 3.75 mls/min IV Q8H [facility] Stop: 02/24/24 13:59 Last Admin: 02/18/24 05:23 Dose: 3.75 mls/min Ibuprofen (Ibuprofen 600 Mg Tab) 600 mg PO Q8H [facility] Stop: 03/18/24 12:59 Last Admin: 02/18/24 05:23 Dose: Not Given Insulin Aspart (Insulin Aspart Per Unit Charge) 0 units SC ACHS [facility] Stop: 03/18/24 07:29 Last Admin: 02/17/24 16:42 Dose: Not Given Lactulose (Lactulose Syrup 30 Gm/45 Ml Udp) 30 gm PO TID [facility] Stop: 03/18/24 08:59 Last Admin: 02/18/24 08:01 Dose: 30 gm Levothyroxine Sodium (Levothyroxine Sodium 100 Mcg Tablet) 300 mcg PO DAILYBB [facility] Stop: 03/19/24 06:29 Last Admin: 02/18/24 05:30 Dose: 300 mcg Levothyroxine Sodium (Levothyroxine Sodium 25 Mcg Tablet) [facility] Stop: 03/19/24 06:29 Last Admin: 02/18/24 05:30 Dose: 25 mcg Magnesium Oxide (Magnesium Oxide 400 Mg Tab) 400 mg PO DAILY [facility] Stop: 03/18/24 08:59 Last Admin: 02/18/24 08:01 Dose: 400 mg Miscellaneous (Carbohydrates For Hypoglycemia ) 15 - 30 gm PO UD PRN PRN Reason: Hypoglycemia Protocol Stop: 03/18/24 06:09 Ondansetron HCl (Ondansetron 4 Mg Od Tab) 4 mg PO BID PRN PRN Reason: Nausea And Vomiting Stop: 03/18/24 16:48 Last Admin: 02/17/24 22:54 Dose: 4 mg Potassium Chloride (Potassium Chloride Crtab 20 Meq Tabcr) 20 meq PO DAILY [facility] Stop: 03/19/24 08:59 Last Admin: 02/18/24 08:07 Dose: Not Given Potassium Chloride (Potassium Chloride 20 Meq/15 Ml Udc) 40 meq PO BID [facility] Stop: 03/20/24 00:05 Pramipexole Dihydrochloride (Pramipexole Dihydrochlo 0.5 Mg Tab) 0.5 mg PO TID [facility] Stop: 03/18/24 08:59 Last Admin: 02/18/24 08:02 Dose: 0.5 mg Rifaximin (Rifaximin 550 Mg Tablet) 550 mg PO BID [facility] Stop: 03/18/24 08:59 Last Admin: 02/18/24 08:02 Dose: 550 mg Sertraline HCl (Sertraline Hcl 100 Mg Tablet) 200 mg PO DAILY [facility] Stop: 03/18/24 19:29 Last Admin: 02/18/24 08:02 Dose: 200 mg Simethicone (Simethicone 80 Mg Chew) 80 mg PO TIDM PRN PRN Reason: GAS/BLOATING Stop: 03/18/24 06:35 Spironolactone (Spironolactone 100 Mg Tab) 100 mg PO BID17 [facility] Stop: 03/18/24 08:59 Last Admin: 02/18/24 08:03 Dose: 100 mg Venlafaxine HCl (Venlafaxine Hcl Xr 75 Mg Capxr) 75 mg PO DAILY [facility] Stop: 03/18/24 08:59 Last Admin: 02/18/24 08:03 Dose: 75 mg Venlafaxine HCl (Venlafaxine Hcl Xr 150 Mg Capxr) 150 mg PO DAILY [facility] Stop: 03/18/24 08:59 Last Admin: 02/18/24 08:03 Dose: 150 mg Vitamin D (Cholecalciferol 125 Mcg (5,000 Units) Tab) 125 mcg PO QAM [facility] Stop: 03/18/24 08:59 Last Admin: 02/18/24 08:01 Dose: 125 mcg (3) Fluid overload Hypervolemia type: unspecified Qualified Code(s): E87.70 - Fluid overload, unspecified (5) Anemia Anemia type: unspecified type Qualified Code(s): D64.9 - Anemia, unspecified
[2024-02-18] MEDS: cephALEXin 500 MG CAP PO SCH (12:45)
[2024-02-18] MEDS: POTASSIUM CHLORIDE 20 MEQ/15 ML UDC PO SCH (21:32)
--- NOTE | 2024-02-18 23:21 | Billing Data ---
Date of Service February 18, 2024 Coding Level of Care Code 44043 INT INP/OBS CARE
--- NOTE | 2024-02-19 07:36 | Hospitalist Progress Note ---
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 Lower extremity erythema and edema - Resolving -Most likely has underlying venous stasis prolonging course of cellulitis. -Venous Doppler study bilateral negative for DVT. -s/p doxycycline, Cefepime, Keflex, Bactrim, Vancomycin, ceftriaxone * Planning to switch cefazolin IV to cephalexin PO Acute Hepatic encephalopathy -Ammonium of 116 at time of admission. Slight slurring of speech in ED. -Chest CTA negative for PE -s/p: Lactulose 30 mg and rifaximin 550 mg given in the ED. -IR consulted, appreciate recommendations. * Continue Bumex 2 mg PO BID, lactulose 30 mg TID, rifaximin 150 mg BID Fluid overload in the setting of 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 -Follows with hepatology, Has paracentesis done 1-2 times a wee.k -Patient s/p paracentesis 02/15 with approximately 6 L removed. Patient with LE edema and abdominal ascites s/p paracentesis -No SOB, satting well on room air. -Creatinine stable, albumin WNL. -CT abd/pelvis positive for abdominal ascites. -s/p Bumex 3 mg IV given in the ED. -Consulted IR for paracentesis, appreciate recommendations * Continue home Bumex (as above) * Strict Is and Os. Standing weights. * Patient's abdominal ascites will be addressed by paracentesis today or Friday. Normocytic Anemia - Chronic -Has required transfusion of blood in the past. -On admission, hemoglobin 7.9. Stable. -Iron studies suggestive of anemia in the context of acute inflammation * Patient unable to receive IV iron in the setting of acute illness. Mood disorder * Continue Effexor 150 mg Hypokalemia -On admission, potassium of 3.3. * Continue on potassium chloride 20 mEq BID. GERD - Chronic * Continue Pepcid. * D/c Compazine due to medication interaction. Ordered Zofran. Restless Leg Syndrome - Chronic * Continue Mirapex Elevated PT/INR in the setting of liver cirrhosis - Chronic -On admission, PT 14, INR 1.3. Stable. FEN: Regular diet DVT ppx: SCDs Consults: IR (2) Hepatic encephalopathy: (3) Fluid overload: (4) Hypokalemia: (5) Anemia: (6) Diabetes type 2, controlled: Admission and Anticipated Discharge Date Admission Date: February 17, 2024 Subjective No overnight events. Pain control: Continued mild epigastric pain. Bowel/bladder concerns: Patient is able to urinate without concern. Nutritional Status: Has been able to eat and drink without concern. Mobility: Has been able to ambulate without assistance or issue. Patient is scheduled to get paracentesis today. In the past she has experienced constipation with oral iron. If needed, she is willing to try it again with Miralax. Review of Systems 2 Review of Systems: See HPI, otherwise negative Physical Exam 2 Physical Exam: Constitutional: well-appearing, no acute distress HEENT: NCAT, no conjunctival injection. Dilated pupils at baseline PERRL. CV: regular rhythm, no murmur appreciated, extremities well-perfused. Resp: CTABL, no wheezes/rales/rhonchi appreciated, no increased work of breathing GI: firm, distended, tender to light palpation in the entire epigastric region. MSK: no gross deformities appreciated Skin: B/l LE with erythema most prominent on the anterior aspects, extending posteriorly, worse on right, improving. Two areas of circular (approximately 2 mm diameter) erythema, partially cleared center with multiple small erythematous dots, one on right lateral inferior breast, one 1-2 inches below the right lateral inframammary fold. Neuro: alert, oriented, no focal neurologic deficit appreciated. Bilateral hand tremor appreciated. Results & Data Results & Data Vital Signs (Past 12 Hours) Vital Signs Temp Pulse Resp BP Pulse Ox O2 Del Method 02/19/24 07:17 98.1 F 82 19 130/82 97 Room Air Laboratory Results 02/18/24 06:35 02/18/24 06:35 (3) Fluid overload Hypervolemia type: unspecified Qualified Code(s): E87.70 - Fluid overload, unspecified (5) Anemia Anemia type: unspecified type Qualified Code(s): D64.9 - Anemia, unspecified
[2024-02-19] MEDS: POTASSIUM CHLORIDE 20 MEQ/15 ML UDC PO SCH (09:02)
[2024-02-19] MEDS: ALBUMIN 25% 25 GM/100 ML VIAL IV ONE ×3 (10:40→12:44)
--- NOTE | 2024-02-19 12:01 | Discharge Summary ---
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 She was also instructed to go to the ED because her blood work showed that her kidneys were taking and "hit". She had a paracentesis earlier today which remains 6.5 L of fluid. She states that she still feels like there is fluid in her abdomen and that she needs more removed. She also complains about a 55 pound weight gain over the past 3 weeks. Patient states that she has been taking her antibiotics for cellulitis. She was initially put on doxycycline. She then was switched to Keflex and Bactrim for her cellulitis. She states that after she switch she noticed that the cellulitis started to spread further up her leg. She denies any fevers or discharge from her lower extremity. She denies any shortness of breath, abdominal pain, nausea, or vomiting. Admission Exam Per Admitting Provider Constitutional: well-appearing, no acute distress HEENT: NCAT, no conjunctival injection CV: regular rhythm, no murmur appreciated, extremities well-perfused, Resp: CTABL, no wheezes/rales/rhonchi appreciated, no increased work of breathing GI: soft, nondistended, nontender, BS normoactive MSK: no gross deformities appreciated Skin: Warm, erythematous and edematous bilateral lower extremities Neuro: alert, oriented, no focal neurologic deficit appreciated Principal Diagnosis Ascites, cellulitis Discharge Exam Gen: NAD, alert, interactive HEENT: Supple, MMM Resp:Non-labored, no wheezing/rhonchi/rales, CTAB CV:tachycardic, regular rhythm, normal S1/S2, no M/R/G Abd: Soft, mildly-distended, epigastric TTP, significant HSM, normoactive bowels Extr: 2+ dp bilaterally, 1+ pitting edema bilaterally, chronic erythema to mid- daily - Acute erythema rescinded significantly within marked barrier Neuro: AO x 3, no FND Discharge Data Allergies Allergy/AdvReac Type Severity Reaction Status Date / Time codeine Allergy Unknown Hives, Verified 02/11/24 10:59 [From Tylenol-Codeine #3] skin redness (Tyenol #3) metformin Allergy Unknown Unknown Verified 02/11/24 10:59 Consultations 02/17/24 02:19 ED Decision to Admit Stat Ordered Studies 02/16/24 23:05 CT abd pelvis IV con only Stat CT angio chest PE protocol Stat US venous doppler LE BI Stat 02/19/24 08:00 IR paracentesis abd w/img US Routine Hospital Course (1) Cellulitis: -Patient had a trial of doxycycline which seemed to improve the cellulitis though this was changed on Friday to Keflex and Bactrim. -Started on vancomycin and ceftriaxone in the ED. -Venous Doppler study bilateral negative for DVT. -Most likely has underlying venous stasis prolonging course of cellulitis. - 02/18: Cellulitis now resolved and rescinded within marked borders, will continue course of Keflex TID for 3 additional days, suspect venous stasis underlying is contributing to lower threshold for development of cellulitis. Advised patient to support skin barrier with non-scented moisturizer BID. (2) Hepatic encephalopathy: - Known liver cirrhosiis 2/2 GILLESPIE, following with Hepatology - Requires paracentesis 1-2 times per week at baseline - Ammonium of 116 at time of admission w/ slurred speach - CTA negative on arrival - 02/18: Now status post paracentesis for 3 L this AM, followed by 2 doses of Albumin. Patient is feeling well and abdominal distension is improved. Counselled that HSM and associated discomfort will persist undil definitive management for liver cirrhosis is performed. Patient is currently on transplant list. Continue with previously scheduled paracentesis as outpatient. Continue outpatient medications (Lactulose and Rifaximin). Counselled that diuretic medications will not prevent further accumulation of ascitic fluid, but may provide symptomatic relief to LE edema. (3) 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: - As above (4) Fluid overload: - 02/18: Lower extremity edema significantly improved w/ PO Bumex. Continue home PO dosing upon discharge. No pulmonary edema on exam. Abdominal distension improved by paracentesis. Creatinine remains stable upon discharge. (5) Hypokalemia: - Continue on potassium chloride 20 mEq twice daily. (6) Anemia: - Patient with a hemoglobin of 7.9 on admission - Remains stable upon discharge (7) Diabetes type 2, controlled: - Restart home regimen upon discharge Total Time Total Time Spent Total Time Spent (In Minutes): < 45 minutes Discharge Plan Discharge Items Patient Disposition: Home - Self-Care Reason For Visit: FLUID OVERLOAD, HE Discharge Diagnosis: Ascites, cellulitis Condition on Discharge: Good Activity: Resume your previous activity Non-emergency contact: Primary Care Provider and Specialist Call non-emergency contact if: you have any medication questions, your symptoms worsen, your temperature is above 101 and your wound has increased redness Follow-up/Referrals: Spenser Shrestha DO [Primary Care Provider] - 02/20/24 2:00 pm Diet: Regular Addtl Attending Provider Instructions: You were admitted to the hospital for cellulitis of your right leg and known ascites. As we talked about, I think some of the discoloration and swelling of your legs is most likely chronic venous stasis, where the veins of the leg do not work as well leading to blood and fluid pooling in the legs. The best treatment for this is compression stockings, which you can get at a pharmacy. We have sent 3 days of keflex/cephalexin for you to finish your antibiotic course. You should take just this antibiotic, do not take the bactrim as well. When it comes to your fluid overload, you were evaluated by interventional radiology for drainage here. On discharge, you should continue getting your paracentesis as scheduled and as directed by your physician. Continue to follow with hepatology for definitive management of your liver cirrhosis. Action Items: - Continue Cephalexin (Keflex) 500 mg PO three times daily for 3 more days (confirmed that you have enough Cephalexin in your current pill bottle to complete the medication course). Do not take more than 3 additional days of medication as this could increase your risk of GI infection. - Begin applying non-scented moisturizer (CeraVe or Wendy Cream) to your legs bilaterally twice daily to support the health of your skin barrier. Please follow-up with your primary care physician by the end of this week and let them know you were in the hospital this week. Pending Studies at Discharge: No Stand-Alone Forms: My [employer], Smoking Cessation Medications and DC Order Prescriptions: New cephalexin 500 mg Capsule 500 mg PO QID 3 Days Qty: 12 0RF Continued (DME) blood-glucose meter [Accu-Chek Guide Glucose Meter] Misc See Rx Instructions .Route Qty: 1 0RF Rx Instructions: use to test Blood Sugar (DME) Accu-Chek Guide test strips Strip See Rx Instructions .Route Qty: 100 3RF Rx Instructions: test blood sugar three times monthly Ubrelvy 50 mg tablet 50 mg PO .COMPLEX PRN (Reason: headache) Qty: 10 6RF Rx Instructions: 50mg prn migraine, may repeat after two hours prn (DME) lancets 33 gauge misc See Rx Instructions .ROUTE .MEDSUPPLY Qty: 100 1RF Rx Instructions: use to test blood sugar 3 times a month sumatriptan succinate 50 mg tablet 50 mg PO UD PRN (Reason: Migraine Headache) Tirosint-Marisa 150 mcg/mL solution 300 mcg PO DAILY Qty: 60 5RF ondansetron 8 mg tablet,disintegrating 8 mg translingual Q8 PRN (Reason: Nausea) valacyclovir 500 mg Tablet 500 mg PO Q8 PRN (Reason: .BREAKOUTS) calcium carbonate-simethicone 500-20 mg Tablet,Chewable 1 tab PO TIDM Qty: 0 triamcinolone acetonide 0.1 % Cream 1 applic EXT TID PRN (Reason: dry, itchy skin on legs/abdominal wall) Qty: 15 0RF Rx Instructions: use for 5 days then stop. Apply in very thin amounts only. Combivent Respimat 20-100 mcg/actuation Mist 1 puff INHALATION QID PRN (Reason: cough/wheeze/shortness of breath) Qty: 1 0RF Rx Instructions: space evenly during waking hours clobetasol 0.05 % solution 1 applic TOPICAL BID PRN (Reason: for scalp) [id number] 50-325-40 mg tablet 2 tab PO Q6 MDD 8 tablets PRN (Reason: Pain) promethazine [Promethegan] 25 mg suppository 25 mg MT UD PRN (Reason: Nausea) famotidine 40 mg tablet 40 mg PO QAM hydroxyzine HCl 10 mg tablet 10 mg PO TID PRN (Reason: Itching) potassium chloride 10 mEq tablet extended release 20 meq PO BID omeprazole 40 mg Capsule,Delayed Release(Dr/Ec) 40 mg PO BID prochlorperazine maleate [Compazine] 5 mg tablet 5 mg PO QID PRN (Reason: Nausea) venlafaxine [Effexor XR] 150 mg capsule,extended release 24hr 150 mg PO DAILY Qty: 30 1RF Rx Instructions: Take 150mg w/ 75mg to equal 225mg by mouth once daily. venlafaxine [Effexor XR] 75 mg capsule,extended release 24hr 75 mg PO DAILY Qty: 30 1RF Rx Instructions: Take 75mg w/ 150mg to equal 225mg by mouth once daily. tizanidine 4 mg tablet 2 mg PO Q6H PRN (Reason: muscle spasms) Linzess 290 mcg Capsule 290 mcg PO DAILY Hold Instructions: please hold unless Dr Calvert or Dr Stanley ask you to resume it Rx Instructions: Family is unsure if patient is taking this medication or not yet. Original Directions: 290mcg by mouth once daily alprazolam 1 mg tablet 1 mg PO BID PRN (Reason: Anxiety) spironolactone 100 mg tablet 100 mg PO BID Xifaxan 550 mg Tablet 550 mg PO BID Qty: 1 0RF lactulose 10 gram/15 mL (15 mL) Solution 30 g PO TID Qty: 1440 0RF Rx Instructions: take twice or three times daily for at least 3 bowel movements each day cholecalciferol (vitamin D3) 125 mcg (5,000 unit) Tablet 125 mcg PO QAM Qty: 1 0RF magnesium oxide 400 mg magnesium tablet 400 mg PO DAILY Qty: 30 5RF pramipexole 0.5 mg tablet 0.5 mg PO TID bumetanide 1 mg tablet 3 mg PO BID levothyroxine 300 mcg tablet 325 mcg PO UD Rx Instructions: 300mcg po qam as a liquid, if tablet it's 325 mcg po qam sertraline 100 mg tablet 150 mg PO DAILY Rx Instructions: takes 100mg and 50 mg tablets tramadol 50 mg tablet 50 mg PO Q6H PRN (Reason: Pain) zolpidem 10 mg tablet 10 mg PO HS PRN (Reason: Sleep) metoclopramide HCl [Reglan] 10 mg tablet 10 mg PO UD Rx Instructions: isnt currently taking due to taking mirapex, wanted left on list incase she starts it again sertraline 50 mg tablet 50 mg PO DAILY Rx Instructions: takes with 100 mg to equal dose of 150 mg Discontinued sulfamethoxazole-trimethoprim [Bactrim DS] 800-160 mg tablet 1 tab PO BID cephalexin 500 mg capsule 500 mg PO UD Rx Instructions: brought bottles with her, but was told she'd be switched. is unsure when she leaves if shell need to finish those Discharge Orders: Discharge Order (Routine); Ordered 02/19/24 Ordered By: Ozzie Pickens Admission Data Admit Date/Time: 02/17/24 03:24 Attending Provider: Мария Grace Admit Provider: Davide Salvador Primary Care Provider: Spenser Shrestha Other Providers: Angel Hope; [facility] Other Interventions: Discharge Summary Assessment (RN) Last Done: 02/19/24 15:19 Supervising Physician Co-Signing Physician Notes Attending Physician Supervision Note: I independently interviewed and examined the patient and verified the norton history and physical, reviewed labs and image studies and agree with findings and care plan noted above. leg swelling and redness much improved. denies pain in legs. denied abdominal pain. AAOX3, no resp distress, abdomen - distended, soft. bilateral leg edema improving. right leg erythema much improved. Leg cellulitis - with underlying venous stasis. kept on IV abx and switch to PO - keflex - to finish course on discharge. Elevated ammonia/Cirrhosis/PoHTN - no encephalopathic sign. continued lactulose and rifaximin Ascites - had a long gap from last paracentesis. had it on 02/15 with 6L out. repeat paracentesis on 02/18 - 3L out -received total of 50gm of 25% albumin infusion for 02/18 paracentesis. -continued spironolactone. Fluid overload - on bumex 3mgs bid at home. s/p 2mgs IV dose on admission. I and O not accurate but consistent weight loss noted. -continued bumex - reiterated compliance at home - reports taking it as directed. Anemia - h/o iron deficiency and needing IV iron infusions. consider infusion as outpatient once infection clears. Resident Activity Tracking Resident Involvement: Resident Care Provided Care Provided: Adult Hospital Medicine
--- NOTE | 2024-02-19 14:05 | Ultrasound Report ---
ULTRASOUND-GUIDED PARACENTESIS CLINICAL HISTORY: Ascites PROCEDURE: Procedure and risks were explained. Informed consent was obtained. A final timeout was com pleted. The abdomen was prepped and draped in sterile fashion. 1% lidocaine was utilized for skin ane sthesia. Utilizing ultrasound guidance, a 5 [place] safety centesis catheter was advanced into the left lower q uadrant pocket of ascites. Ultrasound images were obtained. A total of 3000mL of ascites fluid was re moved and discarded. The catheter was removed and (1) 3-0 nylon suture was utilized to close the punc ture site. The patient tolerated the procedure well. Vital signs will be monitored prior to discharge . IMPRESSION: Ultrasound-guided paracentesis as above. Performed, dictated, and signed by Marvin Greene PA-C; to be co-signed by Dr. Davide Vines. Electronically signed by: Davide Vines M.D. 02/19/2024 2:06 PM
== END 2024-02-19 16:26 | disposition home or self-care (01) | DRG 603 ==
LOC: ED 18:37 → INTOOBSV 02-17 03:24 → 3N 02-17 03:24 → SUATTDRO 02-17 03:24 → 3N 02-17 05:26

== ENCOUNTER 2024-03-15 12:30 | Inpatient (IN) ==
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
--- NOTE | 2024-03-15 14:23 | CT Scan Report ---
CT head/brain wo con CLINICAL HISTORY: 43 years-old Female with confusion. Acutely altered mental status TECHNIQUE: Multiple axial CT images of the head were obtained without contrast. A dose lowering tech nique was utilized adhering to the principles of ALARA. CT DOSE: 828.73 mGy.cm COMPARISON: 12/23/2023 FINDINGS: No acute intracranial hemorrhage, midline shift, intracranial mass, hydrocephalus, territorial ischem ia or abnormal extra-axial collection. Motion degraded exam. Calcifications of the falx cerebri. Prom inent left-sided perivascular space. The calvarium is intact. The paranasal sinuses, mastoid air cells, and middle ear cavities are clear . IMPRESSION: No acute intracranial abnormality. ACT 112: Negative or not required by law. The above report was generated using voice recognition software. It may contain grammatical, syntax o r spelling errors. Electronically signed by: Lorenzo Ocampo M.D. 03/15/2024 2:22 PM
[2024-03-15 14:42] LABS: Albumin Globulin Ratio 1.5 (0.9-2); Albumin Level 3.8 gm/dl (3.4-5.0); BUN Creatinine Ratio 21.7 (10-20); Bilirubin,Total 1.5 mg/dl (0.2-1.0); Calcium 8.8 mg/dl (8.6-10.3); Creatinine Clr Calc Pharmacy 122.1 ml/min; Est GFR (African American) 123.6 ml/min; Est GFR (Non-African American) 106.6 ml/min; Globulin 2.6 gm/dl (2.5-4.0); Potassium 3.3 mmol/L (3.5-5.1); Total Protein 6.4 gm/dl (6.0-8.3)
[2024-03-15 14:50] LABS: Basophils # (auto) 0.02 K/uL (0.00-0.20); Basophils % (auto) 0.7 %; Eosinophils # (auto) 0.16 K/uL (0.00-0.50); Eosinophils % (auto) 5.2 %; Hematocrit (blood only) 29.6 % (37.0-47.0); Hemoglobin 8.9 g/dl (12.0-16.0); Immature Granulocytes # (auto) 0.01 K/uL (0.01-0.20); Immature Granulocytes % (auto) 0.3 %; Lymphocytes # (auto) 0.27 K/uL (1.20-3.40); Lymphocytes % (auto) 8.8 %; Mean Corpuscular Hemoglobin 27.3 pg (25.0-34.0); Mean Corpuscular Hgb Conc 30.1 g/dL (32.0-36.0); Mean Corpuscular Volume 90.8 fL (80.0-100.0); Mean Platelet Volume 11.1 fL (9.4-12.4); Monocytes # (auto) 0.28 K/uL (0.11-0.59); Monocytes % (auto) 9.1 %; Neutrophils # (auto) 2.33 K/uL (1.40-6.50); Neutrophils % (auto) 75.9 %; Platelet Count 47 K/uL (130-400); RDW Coefficient of Variation 24.2 % (11.5-14.5); RDW Standard Deviation 79.6 fL (36.4-46.3); Red Blood Count 3.26 M/uL (4.20-5.40); White Blood Count 3.07 K/ul (4.8-10.8)
[2024-03-15 14:54] LABS: INR 1.3 (0.9-1.1); Partial Thromboplastin Time 26 Seconds (21-31); Prothrombin Time 13.6 Seconds (9.0-12.0)
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
[2024-03-15 15:49] LABS: Polychromasia 1+; Tear Drop Cells 1+
--- NOTE | 2024-03-15 15:53 | XRay Report ---
XR chest 1V portable CLINICAL HISTORY: Altered mental status. COMPARISON STUDY: Chest radiograph December 23, 2023. Chest CT February 16, 2024. FINDINGS: Postoperative findings within the spine are incidentally noted. There is no pneumothorax or pleural effusion. There is no consolidation to suggest pneumonia. Cardiomediastinal silhouette is st able. There is pulmonary vascular congestion without overt pulmonary edema. IMPRESSION: Pulmonary vascular congestion. ACT 112: Negative or not required by law. Electronically signed by: Guero Garcia M.D. 03/15/2024 3:51 PM
[2024-03-15] MEDS: LACTULOSE SYRUP 20 GM/30 ML UDC PO STA (16:09)
[2024-03-15] MEDS ORDERED: hydrOXYzine HCl 10 MG TAB PO PRN (17:07)
[2024-03-15] MEDS ORDERED: IPRATROPIUM BROMIDE/ALBUTEROL respimat INH INH PRN (17:07)
[2024-03-15] MEDS ORDERED: ONDANSETRON INJ 2 MG/ML 2 ML VIAL IV PRN (17:09)
[2024-03-15] MEDS ORDERED: ZOLPIDEM TARTRATE 5 MG TAB PO PRN (17:13)
[2024-03-15] MEDS ORDERED: ALBUTEROL HFA 8 GM INHALER INH PRN (17:28)
[2024-03-15] MEDS ORDERED: IPRATROPIUM BROMIDE HFA INHALER INH PRN (17:29)
[2024-03-15 17:34] LABS: Appearance Urine Clear (Clear); Bilirubin Urine Negative (Negative); Blood Urine Negative (Negative); Color Urine Yellow; Glucose Urine UA Negative (Negative); Ketones Urine Negative (Negative); Leukocyte Esterase Urine Negative (Negative); Nitrite Urine Negative (Negative); Protein Urine Negative (Negative); Specific Gravity Urine 1.012 (1.000-1.030); Urobilinogen Urine Positive (Negative); pH Urine >= 9.0 (4.5-7.5)
[2024-03-15] MEDS: BUMETANIDE 1 MG TAB PO SCH (18:47)
[2024-03-15] MEDS: POTASSIUM CHLORIDE CRTAB 20 MEQ TABCR PO SCH (20:35)
[2024-03-15] MEDS: SPIRONOLACTONE 100 MG TAB PO SCH (20:36)
[2024-03-15] MEDS: LACTULOSE SYRUP 30 GM/45 ML UDP PO SCH (20:36)
[2024-03-15] MEDS: PANTOprazole 40 MG TAB PO SCH (20:37)
[2024-03-15] MEDS: rifAXIMin 550 MG TABLET PO SCH (20:37)
[2024-03-15] MEDS: PRAMIPEXOLE DIHYDROCHLO 0.5 MG TAB PO SCH (20:37)
[2024-03-15] MEDS: oxyCODONE HCL IR 5 MG TAB (IMMEDIATE RELEASE) PO STA (23:14)
[2024-03-16] MEDS: ALPRAZolam 0.5 MG TABLET PO PRN (00:16)
--- OUTSIDE RECORDS SUMMARY | 2024-03-16 03:45 | External Medical Summary | Summary of Care ---
Author Name Unknown Organization [facility] Address [address] [facility] [place] [address] Phone [phone] Care Team Providers Care Manager Critical Care Unit Name Role Phone Endy Stanley DO Primary Care Provider [phone] Reason for Visit * Reason Onset Date Comments Advice 03/15/2024 Encounter Details Date Type Department Care Team (Late st Contact Info) Description 03/15/2024 Telephone Gastroenterology, [facility] [address] [place] [address] Hilda Calvert DO [address] [place] [address] Advice Allergies Active Allergy Reactions Criticality Noted Date Comments Codeine Hives 07/18/2012 Metformin Abdominal pain Low 03/30/2013 documented as of this encounter (statuses as of 03/15/2024) Medications Medication Sig Dispensed Refills Start Date [...] overdose. Seek immediate medical attention. [email or web address]?[email or web address] Active Prochlorperazine Maleate 5 MG Oral Tablet [...] Capsule by mouth in the morning. Active Klor-Con 20 MEQ Oral Packet Take [...] morning and 1 Tablet before bedtime. Active Xcntalhhnt-KREB-Trwht ine 50-325-40 MG Oral Tablet (Fioricet) TAKE [...] mg daily.. 90 Tablet 1 10/03/2023 Active Additional Information Patient taking differently: 100 mgOral Daily(AM),Take 1 tablet daily of 150mg, Reported on 02/23/2024 Spironolactone 100 MG Oral Tablet (Aldactone)Indication s:Liver [...] twice weekly. 100 mL 52 12/10/2023 Active Bumetanide 1 MG Oral Tablet (Bumex)Indications:Li jean carlos cirrhosis secondary to nonalcoholic steatohepatitis (GILLESPIE) (HCC) TAKE 1 TABLET BY MOUTH IN THE MORNING AND BEFORE BEDTIME 180 Tablet 1 02/18/2024 Active Pramipexole Dihydrochloride 0.5 MG Oral Tablet Take 1 Tablet by mouth in the morning and 1 Tablet at noon and 1 Tablet before bedtime. Active documented as of this encounter (statuses as of 03/15/2024) Active Problems Problem Noted Date Diagnosed Date [...] as of this encounter (statuses as of 03/15/2024) Resolved Problems Problem Noted Date Diagnosed Date [...] as of this encounter (statuses as of 03/15/2024) Immunizations Name Administration Dates Next Due H1N1 [...] encounter Miscellaneous Notes * Telephone Encounter - Keira Goldman CMA - 03/15/2024 10:16 AM EDT [place] text sent to to covering MD to see if pre albumin should be given. Dr Marsh:No, thanks 10:14 AM 5 days left Notified Sakshi at [facility] of MD message. Voiced understanding. * Telephone Encounter - Jered Banerjee DO - 03/15/2024 10:07 AM EDT Yes the patient should be given albumin. * Telephone Encounter - Keira Goldman CMA - 03/15/2024 9:51 AM EDT Received call from pharmacist at [facility]. Sakshi states pt at [facility] for paracentesis and fluid was pulled without giving pre-albumin of 100mLper order. Post-albumin of 100mL was given per prn order to give if 3-5 L removed. 3 L was removed. Asking if pre-albumin should still be given. Please advise. documented in this encounter Plan of Treatment Upcoming Encounters Date Type Department Care Team (Late st Contact Info) Description 04/23/2024 11:20 AM EDT Office Visit Hepatology [facility] [address] [place] [address] Hilda Calvert DO [address] [place] [address] 06/02/2024 9:00 AM EDT Office Visit Hepatology, [facility] [address] [place] [address] Hilda Calvert DO [address] [place] [address] 06/08/2024 8:00 AM EDT Office Visit Hematology/Oncology [facility] [address] [facility] [place] [address] Sandra Evans MD [address] [facility] [place] [address] 08/03/2024 4:00 PM EST Office Visit Dermatology [facility] [address] [place] [phone] Saran Knutson PA-C [address] [place] [address] Health Maintenance Due Date Last Done Comments Diabetic Eye Exam 1998 Hepatitis B Vaccine (1 of 3 - 19+ 3-dose series) 12/09/1999 HPV/Co-Test 2010 Cervical Cancer Screening 09/08/2011 Pap Smear 09/08/2011 09/08/2008, 07/25, 01/13/2006, Additional history exists Albumin/Creatinine Ratio 11/25/2015 11/24/2014, 080 02/2013 Depression Monitoring 10/15/2017 10/15/2016 Diabetic Foot Exam 05/14/2018 05/14/2017, 0 11/15/2015, 12/23/2014 DTaP,Tdap,and Td Vaccines (2 - Td or Tdap) 05/18/2019 05/18/2009 B-12 08/19/2019 08/19/2018 Mammogram 2020 HbA1c 03/01/2024 09/01/2023, 12/23, 01/23/2022, Additional history exists Influenza Vaccine (FLU shot) (#1) 2024 05/21/2023, 05/09/2023, 07/04/2020, Additional history exists TSH 09/01/2024 09/01/2023, 04/26, 12/19/2016, Additional history exists GFR 03/09/2025 03/09/2024, 04/2024, 03/02/2024, Additional history exists Lipid Panel 10/23/2028 10/24/2023, 03/2024, 03/05/2017, Additional history exists Pneumococcal Vaccine: Pediatrics (0 to 5 Years) and At-Risk Patients (6 to 64 Years) Completed 06/04/2022, 07/04/2020 COVID-19 Vaccine Completed 11/05/2023, 03/2022, 01/23/2022, Additional history exists HPV (Gardasil) Vaccine Aged Out No lo nger eligible based on patient's age to complete this topic MENINGOCOCCAL (MENACTRA/MENVEO) Aged Out No longer eligible based on patient's age to complete this topic documented as of this encounter Medical Devices Not on filedocumented as of this encounter Advance Directives * Full Code (Latest Code Status on File) Date Activated Date Inactivated Comments 10/15/2007 5:16 PM 10/17/2007 5:01 PM Care Teams Manager Critical Care Unit Relationship Specialty Start Date End Date Endy Stanley DO PCP - General Family Medicine 07/13/18 documented as of this encounter
--- OUTSIDE RECORDS SUMMARY | 2024-03-16 03:45 | External Medical Summary | Summary of Care ---
Author Name Unknown Organization [facility] Address [address] [facility] [place] [address] Phone [phone] Care Team Providers Care Manager Of Financial Reporting Name Role Phone Endy Stanley DO Primary Care Provider [phone] [phone] Reason for Visit * Reason Onset Date Comments Advice 03/15/2024 Encounter Details Date Type Department Care Team (Late st Contact Info) Description 03/15/2024 Telephone Gastroenterology, [facility] [address] [place] [address] Hilda Calvert DO [address] [place] [address] Advice Allergies Active Allergy Reactions Criticality Noted [...] overdose. Seek immediate medical attention. [email or web address] Active Prochlorperazine Maleate 5 MG Oral Tablet [...] morning and 1 Tablet before bedtime. Active Ikfyosbqbp-HVIG-Pbqrv ine 50-325-40 MG Oral Tablet (Fioricet) TAKE [...] Goldman CMA - 03/15/2024 10:16 AM EDT [place] text sent to to covering MD to see if pre albumin should be given. Dr Marsh:No, thanks 10:14 AM 5 days left Notified Sakshi at [facility] of MD message. Voiced understanding. * Telephone Encounter - Jered Banerjee DO - 03/15/2024 10:07 AM EDT Yes the patient should be given albumin. * Telephone Encounter - Keira Goldman CMA - 03/15/2024 9:51 AM EDT Received call from pharmacist at [facility]. Sakshi states pt at [facility] for paracentesis and fluid was pulled without [...] 04/23/2024 11:20 AM EDT Office Visit Hepatology [facility] [address] [place] [address] Hilda Calvert DO [address] [place] [address] 06/02/2024 9:00 AM EDT Office Visit Hepatology, [facility] [address] [place] [address] Hilda Calvert DO [address] [place] [address] 06/08/2024 8:00 AM EDT Office Visit Hematology/Oncology [facility] [address] [facility] [place] [phone] Sandra Evans MD [address] [facility] [place] [address] 08/03/2024 4:00 PM EST Office Visit Dermatology [facility] [address] [place] [phone] Saran Knutson PA-C [address] [place] [address] Health Maintenance Due Date Last Done Comments [...] PM 10/17/2007 5:01 PM Care Teams Manager Of Financial Reporting Relationship Specialty Start Date End Date Endy Stanley DO PCP - General Family Medicine 07/13/18 documented as of this encounter
--- OUTSIDE RECORDS SUMMARY | 2024-03-16 03:46 | External Medical Summary | Summary of Care ---
Author Name Unknown Organization [facility] Address [address] [facility] [place] [address] Phone [phone] Care Team Providers Care Load Tester Name Role Phone Endy Stanley DO Primary Care Provider +1 [phone] Encounter Details Date Type Department Care Team (Late st Contact Info) Description 03/03/2024 Orders Only Gastroenterology, [facility] [address] [place] [address] Hilda Calvert DO [address] [place] [address] Allergies Active Allergy Reactions Criticality Noted Date Comments Codeine Hives 07/18/2012 Metformin Abdominal pain Low 03/30/2013 documented as of this encounter (statuses as of 03/03/2024) Medications Medication Sig Dispensed Refills Start Date [...] suspected opioid overdose. Seek immediate medical attention. https://[email or web address]/watch?v=[email or web address] Active Prochlorperazine Maleate 5 MG Oral Tablet [...] morning and 1 Tablet before bedtime. Active Rharbbmvmd-WIYL-Drigs ine 50-325-40 MG Oral Tablet (Fioricet) TAKE [...] as of this encounter (statuses as of 03/03/2024) Active Problems Problem Noted Date Diagnosed Date [...] as of this encounter (statuses as of 03/03/2024) Resolved Problems Problem Noted Date Diagnosed Date [...] as of this encounter (statuses as of 03/03/2024) Immunizations Name Administration Dates Next Due H1N1 [...] Care Team (Late st Contact Info) Description 03/03/2024 1:00 PM EDT Hem/Onc Treatment [facility] [place] [facility] [address] Michelle, Chair 7 Hem Onc Scenery 200 [facility] [address] 04/23/2024 11:20 AM EDT Office Visit Hepatology [facility] [address] [place] [address] Hilda Calvert DO [address] [place] [address] 06/02/2024 9:00 AM EDT Office Visit Hepatology [facility] [address] [place] [address] Hilda Calvert DO [address] [place] [address] 06/08/2024 8:00 AM EDT Office Visit Hematology/Oncology Joshua Martinez [place] 200 [facility] [place] [phone] Sandra Evans MD 200 [facility] [place] [address] 08/03/2024 4:00 PM EST Office Visit Dermatology [facility] [address] [place] [address] Saran Knutson PA-C [address] [place] [address] Health Maintenance Due Date Last Done Comments [...] 09/01/2023, 04/26, 12/19/2016, Additional history exists GFR 02/26/2025 03/02/2024, 12/2023, 02/24/2024, Additional history exists Lipid Panel 10/23/2028 10/24/2023, [...] Priority Date/Time Associated Diagnosis Comments CHEMISTRY-OUTSIDE Routine 03/02/2024 documented in this encounter Results * (ABNORMAL) CHEMISTRY-OUTSIDE (03/02/2024) Not all results display below - see scan for full detail OUTSIDE LAB (SEE SCANNED REPORT) Comment:SCAN INCLUDES - CMP CREATININE-OUTSID E LAB 0.71 0.6 - 1.2 MG/DL OUTSIDE LAB (SEE SCANNED REPORT) EGFR-OUTSIDE LAB 104.3 ML/MIN/1.7 3M2 OUTSIDE LAB (SEE SCANNED REPORT) POTASSIUM-OUTSIDE LAB 3.5 3.5 - 5.1 MMOL/L OUTSIDE LAB (SEE SCANNED REPORT) GLUCOSE-OUTSIDE LAB 146(A) 70 - 99 MG/DL OUTSIDE LAB (SEE [...] LAB OUTSIDE LAB (SEE SCANNED REPORT) HEMOGLOBIN, [id number] LAB OUTSIDE LAB (SEE SCANNED REPORT) PHOSPHORUS-OUTSID E LAB OUTSIDE LAB (SEE SCANNED REPORT) PTH-OUTSIDE LAB OUTS GRECIA LAB (SEE SCANNED REPORT) MICROALBUMIN RATIO-OUTSIDE LAB OUTSIDE LA B (SEE SCANNED REPORT) PROTEIN, UA-OUTSIDE LAB OUTSIDE LAB (SEE SCANNED REPORT) HGB OUTSIDE LA B (SEE SCANNED REPORT) 03/02/2024 Hilda Calvert DO LABORATORY OUTSIDE LAB (SEE SCANNED REPORT) documented in this encounter Advance Directives * Full Code (Latest Code Status on File) Date Activated Date Inactivated Comments 10/15/2007 5:16 PM 10/17/2007 5:01 PM Care Teams Load Tester Relationship Specialty Start Date End Date Endy Stanley DO [address] [address] [place] [address] PCP - General Family Medicine 07/13/18 documented as of this encounter
--- OUTSIDE RECORDS SUMMARY | 2024-03-16 03:46 | External Medical Summary | Summary of Care ---
Author Name Unknown Organization [facility] Address [address] [facility] [place] [address] Phone [phone] Care Team Providers Care Filter Tender Name Role Phone Endy Stanley DO Primary Care Provider +1 [phone] Encounter Details Date Type Department Care Team (Late st Contact Info) Description 03/08/2024 Orders Only Gastroenterology, [facility] [address] [place] [address] Hilda Calvert DO [address] [place] [address] 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); Ascites Allergies Active Allergy Reactions Criticality Noted Date Comments Codeine Hives 07/18/2012 Metformin Abdominal pain Low 03/30/2013 documented as of this encounter (statuses as of 03/08/2024) Medications Medication Sig Dispensed Refills Start Date [...] opioid overdose. Seek immediate medical attention. https://www.The Edge [email or web address] College [email or web address] [email or web address]/watch?v=[email or web address] Active Prochlorperazine Maleate 5 MG Oral Tablet [...] morning and 1 Tablet before bedtime. Active Trpompftyt-CKTZ-Lensh ine 50-325-40 MG Oral Tablet (Fioricet) TAKE [...] as of this encounter (statuses as of 03/08/2024) Active Problems Problem Noted Date Diagnosed Date [...] as of this encounter (statuses as of 03/08/2024) Resolved Problems Problem Noted Date Diagnosed Date [...] CORD ENTANG NEC-ANTEPAR 10/30/200512/24 Other constipation 09/13/2005 05/22/200 6 Hyperthyroidism 05/21/2005 05/14/2017 Overview: diag with [...] as of this encounter (statuses as of 03/08/2024) Immunizations Name Administration Dates Next Due H1N1 [...] 04/23/2024 11:20 AM EDT Office Visit Hepatology [facility] [address] [place] [address] Hilda Calvert DO [address] [place] [address] 06/02/2024 9:00 AM EDT Office Visit Hepatology [facility] [address] [place] [address] Hilda Calvert DO [address] [place] [address] 06/08/2024 8:00 AM EDT Office Visit Hematology/Oncology [facility] 200 [facility] [place] [address] Sandra Evans MD [address] [place] [address] 08/03/2024 4:00 PM EST Office Visit Dermatology [facility] 68 [place] [address] Saran Knutson PA-C 68 [place] [address] Health Maintenance Due Date Last Done Comments [...] 09/01/2023, 04/26, 12/19/2016, Additional history exists GFR 03/02/2025 03/02/2024, 04/2024, 02/27/2024, Additional history exists Lipid Panel 10/23/2028 10/24/2023, [...] Date/Time Associated Diagnosis Comments IR PARACENTESIS Routine 03/05/2024 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) Ascites documented in this encounter Results * IR PARACENTESIS (03/05/2024) Anatomical Region Laterality Modality Any Other 03/05/2024 Hilda Calvert DO RAD SPECIAL CO OCEDURES documented in this encounter Visit Diagnoses Diagnosis 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) Ascites Other ascites documented in this encounter Advance Directives * Full Code (Latest Code Status on File) Date Activated Date Inactivated Comments 10/15/2007 5:16 PM 10/17/2007 5:01 PM Care Teams Filter Tender Relationship Specialty Start Date End Date Endy Stanley DO PCP - General Family Medicine 07/13/18 documented as of this encounter
--- OUTSIDE RECORDS SUMMARY | 2024-03-16 03:46 | External Medical Summary | Summary of Care ---
Author Name Unknown Organization [facility] Address [address] [facility] [place] [address] Phone [phone] Care Team Providers Care Education Instructor Name Role Phone Lizeth Endy Mora DO Primary Care Provider +1 [phone] Encounter Details Date Type Department Care Team (Late st Contact Info) Description 02/25/2024 Orders Only Hematology/Oncology [facility] Michelle [place] 200 [facility] [place] [address] Sandra Evans MD 200 [facility] [place] [address] Allergies Active Allergy Reactions Criticality Noted Date Comments Codeine Hives 07/18/2012 Metformin Abdominal pain Low 03/30/2013 documented as of this encounter (statuses as of 02/25/2024) Medications Medication Sig Dispensed Refills Start Date [...] suspected opioid overdose. Seek immediate medical attention. https://www.[email or web address]/watch?v=[email or web address] [email or web address] Active Prochlorperazine Maleate 5 MG Oral Tablet [...] morning and 1 Tablet before bedtime. Active Yrbeemjfoj-UUGM-Jcjgn ine 50-325-40 MG Oral Tablet (Fioricet) TAKE [...] as of this encounter (statuses as of 02/25/2024) Active Problems Problem Noted Date Diagnosed Date [...] as of this encounter (statuses as of 02/25/2024) Resolved Problems Problem Noted Date Diagnosed Date [...] as of this encounter (statuses as of 02/25/2024) Immunizations Name Administration Dates Next Due H1N1 [...] 1:00 PM EDT Hem/Onc Treatment Hematology/Oncology Treatment, [place] [address] [place] [address] [place], Chair 7 Hem Onc Scenery [address] [place] [address] 04/23/2024 11:20 AM EDT Office Visit Hepatology, [facility] [address] [place] [address] Hilda Calvert DO [address] [place] [address] 06/02/2024 9:00 AM EDT Office Visit Hepatology [facility] [address] [place] [address] Hilda Calvert, [address] [place] [address] 06/08/2024 8:00 AM EDT Office Visit Hematology/Oncology Joshua Martinez [place] [address] [place] [address] Sandra Evans MD [address] [place] [address] 08/03/2024 4:00 PM EST Office Visit Dermatology [facility] 68 [place] [address] Saran Knutson PA-C 68 [place] [address] Health Maintenance Due Date Last Done Comments [...] 09/01/2023, 04/26, 12/19/2016, Additional history exists GFR 02/23/2025 02/24/2024, 01/24, 02/16/2024, Additional history exists Lipid Panel 10/23/2028 10/24/2023, [...] 5:16 PM 10/17/2007 5:01 PM Care Teams Education Instructor Relationship Specialty Start Date End Date Endy Stanley DO [address] [address] [place] [address] PCP - General Family Medicine 07/13/18 documented as of this encounter
--- OUTSIDE RECORDS SUMMARY | 2024-03-16 03:46 | External Medical Summary | Summary of Care ---
Author Name Unknown Organization [facility] Address [address] [place] [address] Phone [phone] Care Team Providers Care Coal Washer Name Role Phone Endy Stanley DO Primary Care Provider +1 -[phone] Reason for Visit * Reason Onset Date Comments Advice 03/15/2024 Encounter Details Date Type Department Care Team (Late st Contact Info) Description 03/15/2024 Telephone Access Center, [place] [address] [facility] *DO NOT REMOVE THIS DEPARTMENT* [place] [address] Services, Scheduling [address] [place] [address] Advice Allergies Active Allergy Reactions Criticality Noted [...] suspected opioid overdose. Seek immediate medical attention. https://www.[email or web address].com/watch?v=[email or web address] Active Prochlorperazine Maleate 5 MG Oral Tablet [...] morning and 1 Tablet before bedtime. Active Womsrodoxc-XYYN-Zfqcn ine 50-325-40 MG Oral Tablet (Fioricet) TAKE [...] encounter Miscellaneous Notes * Telephone Encounter - Radha Liao OSA - 03/15/2024 9:41 AM EDT Sylvia needs to speak with a Gastro Nurse to discuss medication administration for the patient. Transferred to [facility] documented in this encounter Plan of Treatment Upcoming Encounters Date Type Department Care Team (Late st Contact Info) Description 04/23/2024 11:20 AM EDT Office Visit Hepatology, [facility] [address] [place] [address] Hilda Calvert DO [address] [place] [address] 06/02/2024 9:00 AM EDT Office Visit Hepatology [facility] [address] [place] [address] Hilda Calvert DO [address] [place] [address] 06/08/2024 8:00 AM EDT Office Visit Hematology/Oncology Joshua Martinez [place] 200 [facility] [place] [phone] Sandra Evans MD [address] [place] [address] 08/03/2024 4:00 PM EST Office Visit Dermatology [facility] [address] [place] [address] Saran Knutson PA-C 68 [place], [place] [phone] Health Maintenance Due Date Last Done Comments [...] 5:16 PM 10/17/2007 5:01 PM Care Teams Coal Washer Relationship Specialty Start Date End Date Endy Stanley DO PCP - General Family Medicine 07/13/18 documented as of this encounter
--- OUTSIDE RECORDS SUMMARY | 2024-03-16 03:46 | External Medical Summary | Summary of Care ---
Author Name Unknown Organization [facility] Address [address] [place] [address] Phone [phone] Care Team Providers Care Supervisor Wood Crew Name Role Phone Endy Stanley DO Primary Care Provider +1 [phone] Reason for Visit * Reason Onset Date Comments Precert Future 02/23/2024 monoferric Encounter Details Date Type Department Care Team (Late st Contact Info) Description 02/23/2024 Telephone Hematology/Oncology, [address] [address] Sandra Evans MD 200 [place], [place] [phone] Precert Future (monoferric) Allergies Active Allergy Reactions Criticality Noted Date [...] suspected opioid overdose. Seek immediate medical attention. [email or web address]://www.[email or web address] [email or web address] [email or web address]/watch?v=[email or web address] [email or web address] Active Prochlorperazine Maleate 5 MG Oral Tablet [...] morning and 1 Tablet before bedtime. Active Mgejncbcva-HHYS-Bxmmo ine 50-325-40 MG Oral Tablet (Fioricet) TAKE [...] Miscellaneous Notes * Telephone Encounter - Hilda Cueva OSA - 02/25/2024 3:11 PM EDT Pt is scheduled and aware * Telephone Encounter - Forrest Couch RN - 02/25/2024 3:04 PM EDT Referral entered, no assistance review needed as patient has medicaid. "MAC ASSISTANCE REVIEW NEEDED? No. Assistance review not needed due to: Patient has Medicaid, copayis expected to be minimal " Scheduling- please call patient to schedule 2 hour apt "Monoferric" (Nathan). Thanks! * Telephone Encounter - Forrest Couch RN - 02/23/2024 4:26 PM EDT Called patient to discuss about Monoferric. Advised that [facility] does not carry this medication. She states she has met her deductible with her insurance. Advised we will wait to see what her OOP expensewould be before scheduling the infusion. Pt also inquiring about getting a port or PICC line placed. I advised that she needs to discuss this with the transplant provider in [place] in which she stated she has been trying to discuss withthem further and has been in touch with their team. * Telephone Encounter - Anju Razo OSA - 02/23/2024 3:40 PM EDT Patient is calling to speak with a nurse. She has some questions from her appt this morning. * Telephone Encounter - Hanna Gonzalez OSA - 02/23/2024 1:23 PM EDT Patient has been notified of the message. Patient has no further questions. * Telephone Encounter - Cassie Shelton RN - 02/23/2024 11:26 AM EDT Order received for monoferric, cannot be given at [facility]. Left message for patient letting her know this, advised that we will call to schedule once everything is set up. [place] plan built and routed for signautre. Waiting for auth. * Telephone Encounter - Hilda Cueva OSA - 02/23/2024 11:24 AM EDT Pt asked that her iron get done at [facility] Please advise documented in this encounter Plan of Treatment Upcoming Encounters Date Type Department Care Team (Late st Contact Info) Description 03/03/2024 1:00 PM EDT Hem/Onc Treatment Hematology/Oncology Treatment, [place] [address] [place] [address] Michelle, Chair 7 Hem Onc [facility] [address] [place] [address] 04/23/2024 11:20 AM EDT Office Visit Hepatology, [facility] [address] [place] [address] Hilda Calvert DO [address] [place] [address] 06/02/2024 9:00 AM EDT Office Visit Hepatology, [facility] [address] [place] [address] Hilda Calvert DO [address] [place] [address] 06/08/2024 8:00 AM EDT Office Visit Hematology/Oncology [facility] Michelle [place] 200 [facility] [place] [address] Sandra Evans MD [address] [place] [address] 08/03/2024 4:00 PM EST Office Visit Dermatology [facility] 68 [place] [address] Saran Knutson PA-C 68 [place], [place] [phone] Health Maintenance Due Date Last Done Comments [...] 5:16 PM 10/17/2007 5:01 PM Care Teams Supervisor Wood Crew Relationship Specialty Start Date End Date Endy Stanley DO [address] [address] [place] [address] PCP - General Family Medicine 07/13/18 documented as of this encounter
--- OUTSIDE RECORDS SUMMARY | 2024-03-16 03:46 | External Medical Summary | Summary of Care ---
Author Name Unknown Organization [facility] Address [address] [facility] [place] [address] Phone [phone] Care Team Providers Care Electrical Development Engineer Name Role Phone Endy Stanley DO Primary Care Provider +1 [phone] Encounter Details Date Type Department Care Team (Late st Contact Info) Description 03/10/2024 Orders Only Gastroenterology, [facility] [address] [place] [address] Hilda Calvert DO [address] [place] [address] Allergies Active Allergy Reactions Criticality Noted Date Comments Codeine Hives 07/18/2012 Metformin Abdominal pain Low 03/30/2013 documented as of this encounter (statuses as of 03/10/2024) Medications Medication Sig Dispensed Refills Start Date [...] suspected opioid overdose. Seek immediate medical attention. https://www.[email or web address]/watch?v=[email or web address] Active Prochlorperazine Maleate 5 MG Oral Tablet [...] morning and 1 Tablet before bedtime. Active Apnlowwzic-EPYM-Qamwo ine 50-325-40 MG Oral Tablet (Fioricet) TAKE [...] as of this encounter (statuses as of 03/10/2024) Active Problems Problem Noted Date Diagnosed Date [...] as of this encounter (statuses as of 03/10/2024) Resolved Problems Problem Noted Date Diagnosed Date [...] as of this encounter (statuses as of 03/10/2024) Immunizations Name Administration Dates Next Due H1N1 [...] Description 04/23/2024 11:20 AM EDT [facility] [address] [place] [address] Hilda Calvert DO [address] [place] [address] 06/02/2024 9:00 AM EDT [facility] [address] [place] [address] Hilda Calvert DO [address] [place] [address] 06/08/2024 8:00 AM EDT Office Visit Hematology/Oncology [facility] Michelle [place] [address] [place] [phone] Sandra Evans MD 200 [place] [address] 08/03/2024 4:00 PM EST Office Visit Dermatology [facility] 68 [place] [address] Saran Knutson PA-C 68 [place] [address] Health Maintenance Due Date Last Done Comments [...] 04/26, 12/19/2016, Additional history exists GFR 03/02/2025 03/09/2024, 04/2024, 03/02/2024, Additional history exists Lipid [...] Priority Date/Time Associated Diagnosis Comments CHEMISTRY-OUTSIDE Routine 03/09/2024 documented in this encounter Results * (ABNORMAL) CHEMISTRY-OUTSIDE (03/09/2024) Not all results display below - see scan for full detail SCAN INCLUDES: CMP, OUTSIDE LAB (SEE SCANNED REPORT) CREATININE-OUTSID E LAB 0.86 0.6 - 1.2 MG/DL OUTSIDE LAB (SEE SCANNED REPORT) EGFR-OUTSIDE LAB 82.7 ML/MIN OUT SIDE LAB (SEE SCANNED REPORT) POTASSIUM-OUTSIDE LAB 3.6 3.5 - 5.1 MMOL/L OUTSIDE LAB (SEE SCANNED REPORT) GLUCOSE-OUTSIDE LAB 212(A) 70 - 99 MG/DL OUTSIDE LAB (SEE [...] LAB OUTSIDE LAB (SEE SCANNED REPORT) HEMOGLOBIN, G6V-MGHNYLL LAB OUTSIDE LAB (SEE SCANNED REPORT) PHOSPHORUS-OUTSID E LAB OUTSIDE LAB (SEE SCANNED REPORT) PTH-OUTSIDE LAB OUTS GRECIA LAB (SEE SCANNED REPORT) MICROALBUMIN RATIO-OUTSIDE LAB OUTSIDE LA B (SEE SCANNED REPORT) PROTEIN, UA-OUTSIDE LAB OUTSIDE LAB (SEE SCANNED REPORT) HGB OUTSIDE LA B (SEE SCANNED REPORT) 03/09/2024 Hilda Calvert DO LABORATORY OUTSIDE LAB (SEE SCANNED REPORT) documented in this encounter Advance Directives * Full Code (Latest Code Status on File) Date Activated Date Inactivated Comments 10/15/2007 5:16 PM 10/17/2007 5:01 PM Care Teams Electrical Development Engineer Relationship Specialty Start Date End Date Endy Stanley DO PCP - General Family Medicine 07/13/18 documented as of this encounter
--- OUTSIDE RECORDS SUMMARY | 2024-03-16 03:46 | External Medical Summary | Summary of Care ---
Author Name Unknown Organization [facility] Address [address] [facility] [place] [address] Phone [phone] Care Team Providers Care Account Specialist Name Role Phone Lizeth Endy Mora DO Primary Care Provider +1 [phone] Reason for Visit * Reason Comments Infusion Monoferric Infusion * Episode Based Medications (Routine) - Authorized Specialty Diagnoses / Procedures Referred By Contac t Referred To Contact Diagnoses Bariatric surgery status Iron deficiency anemia, unspecified iron deficiency anemia type Procedures NE INJ. FE DERISOMALTOSE 10 MG Sandra Evans MD 200 [facility] [place] [address] Anc Hem/Onc [address] [address] Referral ID Status Reason Start Date Expiration Date V isits Requested Visits Authorized [id number] Authorized 02/23/2024 02/22/2025 [id number] Encounter Details Date Type Department Care Team (Latest Contact Info) Description 03/03/2024 1:00 PM EDT Hem/Onc Treatment Hematology/Oncology Treatment, [address] [address] Michelle Chair 7 Hem Onc [address] [place] [address] Bariatric surgery status*; Iron deficiency anemia, unspecified iron deficiency anemia type Allergies Active Allergy Reactions Criticality Noted Date [...] opioid overdose. Seek immediate medical attention. [email or web address] [email or web address]?v=[email or web address] Active Prochlorperazine Maleate 5 MG Oral Tablet [...] morning and 1 Tablet before bedtime. Active Dlflycdmym-HUHN-Degds ine 50-325-40 MG Oral Tablet (Fioricet) TAKE [...] Sign Reading Time Taken Comments Blood Pressure 149/80 03/03/2024 3:14 PM EDT Pulse 85 03/03/2024 3:14 PM EDT Temperature 37 C (98.6 F) 03/03/2024 3:14 PM EDT Respiratory Rate 20 03/03/2024 3:14 PM EDT Oxygen Saturation 96% 03/03/2024 3:14 PM EDT Inhaled Oxygen Concentration - - Weight - - Height - - Body Mass Index - - documented in this encounter Functional Status Functional Status Response Date of Assess ment Does this person have seriou s difficulty walking or climbing stairs? Yes-has done this two times in the past week 09/01/2023 documented as of this encounter Nursing Notes * Yumiko Beck RN - 03/03/2024 3:14 PM EDT Patient ambulatory to chair 7 Patient denies any nausea, vomiting, diarrhea, fever or pain Safety and Risk for Injury Patient will remain free from injury. Ensure appropriate safety devices are available. Provide and maintain safe environment. Goals: patient will remain free of injury Possible barriers to meeting goals: ambulation with IV pole Stability of the patient: Moderately stable - low risk of patient condition declining or worsening Summary regarding today's goals: Met: patient remained free of injury Patient discharge, tolerated infusion well, denied any complaints at discharge. documented in this encounter Plan of Treatment Upcoming Encounters Date Type Department Care Team (Late st Contact Info) Description 04/23/2024 11:20 AM EDT [facility] [address] [place] [address] Hilda Calvert DO [address] [place] [address] 06/02/2024 9:00 AM EDT [facility] [address] [place] [address] Hilda Calvert DO [address] [place] [address] 06/08/2024 8:00 AM EDT Office Visit Hematology/Oncology Joshua Martinez [place] [facility] [place] [address] Sandra Evans MD 200 [facility] [place] [address] 08/03/2024 4:00 PM EST Office Visit Dermatology [facility] [address] [place] [address] Saran Knutson PA-C 68 [place] [address] Health Maintenance Due Date Last Done Comments [...] as of this encounter Visit Diagnoses Diagnosis Bariatric surgery status- Primary Iron deficiency anemia, unspecified iron deficiency anemia type documented in this encounter Administered Medications Active Administered Medications - up to 3 most recent administrations Medication Order MAR Action Action Date Dose Rate Site diphenhydrAMINE (Benadryl) inj 50 mg 50 mg, IV Push, ONCE PRN Other, Hypersensitivity Reaction, Starting on Fri03/03/24 at 1344, Until Lucy 03/04/24 at 1343, For 24 hours EPINEPHrine 1 MG/ML inj 0.3 mg 0.3 mg, Intramuscular, ONCE PRN Other, Hypersensitivity Reaction or Anaphylaxis, Starting on Fri03/03/24 at 1344, Until Lucy 03/04/24 at 1343, For 24 hours hEParin 100 UNIT/ML Lock Flush inj 500 Units 500 Units (5 mL), IV Lock, PRN Other, IV Flush, Starting on Fri03/03/24 at 1344, Until Lucy 03/04/24 at 1343, For 24 hours, Do not flush if lock, PICC, or central line not in place; IV infusing or unable to flush. Hydrocortisone Sod Suc (PF) (Solu-Cortef) inj 100 mg 100 mg, IV Push, ONCE PRN Other, Hypersensitivity Reaction, Starting on Fri03/03/24 at 1344, Until Lucy 03/04/24 at 1343, For 24 hours NSS infusion Intravenous, at 50 mL/hr, PRN, Starting on Fri03/03/24 at 1445, Until Discontinued, Maintenance line Start Infusion 03/03/2024 1:52 PM EDT 50 mL/hr oxygen GAS Inhalation, OXYGEN, First dose on Fri03/03/24 at 1600, Until Discontinued, Device/Managed by: Low Flow Device, Goal SPO2 (%): 91-95, Starting Device: Nasal Cannula, Initial Flow Rate (LPM): 2, Lowest Support: Nasal Cannula: Flow 0-6 LPM. Titrate up/down by 1 LPM., Higher Support: Non-Rebreather (NRB) Mask: Minimum of 10 LPM. Titrate to maintain bag inflation., Titration Interval: Q2 minutes and as needed., Notify Provider: For sudden DECREASE in resting SPO2 to less than 85% and when escalating delivery device., Wean patient off Oxygen when the oxygen saturation is greater than or equal to 93% sodium chloride 0.9 % flush central line 10 mL 10 mL, IV Push, PRN Other, IV Flush, Starting on Fri03/03/24 at 1344, Until Lucy 03/04/24 at 1343, For 24 hours, Do not flush if lock, PICC, or central line not in place; IV infusing or unable to flush. Inactive Administered Medications - up to 3 most recent administrations Medication Order MAR Action Action Date Dose Rate Site Ferric derisomaltose (Monoferric) 1,000 mg in NSS 250 mL ivpb 1,000 mg, IV Piggyback, ONCE, 1 dose, On Fri03/03/24 at 1415, Administer over 30 Minutes, DOSING GUIDELINES: For patient weight LESS THAN 50 kg: Dose 20 mg/kg For patient weight 50 Kg or greater: Dose 1000 mg Start Infusion 03/03/2024 1:57 PM EDT 1,000 mg 530 mL/hr documented in this encounter Advance Directives * Full Code (Latest Code Status on File) Date Activated Date Inactivated Comments 10/15/2007 5:16 PM 10/17/2007 5:01 PM Care Teams Account Specialist Relationship Specialty Start Date End Date Endy [place] DO PCP - General Family Medicine 07/13/18 documented as of this encounter
--- OUTSIDE RECORDS SUMMARY | 2024-03-16 03:46 | External Medical Summary | Summary of Care ---
Author Name Unknown Organization [facility] Address [address] [facility] [place] [address] Phone [phone] Care Team Providers Care Atomizer Assembler Name Role Phone Endy [place] DO Primary Care Provider +1 [phone] Encounter Details Date Type Department Care Team (Late st Contact Info) Description 03/01/2024 Orders Only Gastroenterology, [facility] [address] [place] [address] Hilda Calvert DO [address] [place] [address] Allergies Active Allergy Reactions Criticality Noted Date Comments Codeine Hives 07/18/2012 Metformin Abdominal pain Low 03/30/2013 documented as of this encounter (statuses as of 03/01/2024) Medications Medication Sig Dispensed Refills Start Date [...] suspected opioid overdose. Seek immediate medical attention. [email or web address]?v=[email or web address] Active Prochlorperazine Maleate 5 MG Oral Tablet [...] morning and 1 Tablet before bedtime. Active Pdoyzkjflu-VYZT-Grguj ine 50-325-40 MG Oral Tablet (Fioricet) TAKE [...] as of this encounter (statuses as of 03/01/2024) Active Problems Problem Noted Date Diagnosed Date [...] as of this encounter (statuses as of 03/01/2024) Resolved Problems Problem Noted Date Diagnosed Date [...] as of this encounter (statuses as of 03/01/2024) Immunizations Name Administration Dates Next Due H1N1 [...] 1:00 PM EDT Hem/Onc Treatment Hematology/Oncology [facility], [place] [facility] [address] Michelle, Chair 7 Hem Onc Scenery 200 [facility] [address] 04/23/2024 11:20 AM EDT Office Visit Hepatology [facility] [address] [place] [address] Hilda Calvert DO [address] [place] [address] 06/02/2024 9:00 AM EDT Office Visit Hepatology [facility] [address] [place] [address] Hilda Calvert DO [address] [place] [address] 06/08/2024 8:00 AM EDT Office Visit Hematology/Oncology Joshua Martinez [place] 200 [facility] [place] [address] Sandra Evans MD 200 [facility] [place] [address] 08/03/2024 4:00 PM EST Office Visit Dermatology [facility] [address] [place] [address] Saran Knutson PA-C 68 [place] [address] Health Maintenance Due Date Last Done Comments [...] 04/26, 12/19/2016, Additional history exists GFR 02/23/2025 02/27/2024, 09/2023, 02/16/2024, Additional history exists Lipid Panel 10/23/2028 [...] Priority Date/Time Associated Diagnosis Comments CHEMISTRY-OUTSIDE Routine 02/27/2024 documented in this encounter Results * (ABNORMAL) CHEMISTRY-OUTSIDE (02/27/2024) Not all results display below - see scan for full detail OUTSIDE LAB (SEE SCANNED REPORT) Comment:SCAN INCLUDES - CMP CREATININE-OUTSID E LAB 0.81 0.6 - 1.2 MG/DL OUTSIDE LAB (SEE SCANNED REPORT) EGFR-OUTSIDE LAB 89.0 ML/MIN/1.7 3M2 OUTSIDE LAB (SEE SCANNED REPORT) POTASSIUM-OUTSIDE LAB 4.0 3.5 - 5.1 MMOL/L OUTSIDE LAB (SEE SCANNED REPORT) GLUCOSE-OUTSIDE LAB 126(A) 70 - 99 MG/DL OUTSIDE LAB (SEE [...] LAB OUTSIDE LAB (SEE SCANNED REPORT) HEMOGLOBIN, V8Y-HDOEKLT LAB OUTSIDE LAB (SEE SCANNED REPORT) PHOSPHORUS-OUTSID E LAB OUTSIDE LAB (SEE SCANNED REPORT) PTH-OUTSIDE LAB OUTS GRECIA LAB (SEE SCANNED REPORT) MICROALBUMIN RATIO-OUTSIDE LAB OUTSIDE LA B (SEE SCANNED REPORT) PROTEIN, UA-OUTSIDE LAB OUTSIDE LAB (SEE SCANNED REPORT) HGB OUTSIDE LA B (SEE SCANNED REPORT) 02/27/2024 Hilda Calvert DO LABORATORY OUTSIDE LAB (SEE SCANNED REPORT) documented in this encounter Advance Directives * Full Code (Latest Code Status on File) Date Activated Date Inactivated Comments 10/15/2007 5:16 PM 10/17/2007 5:01 PM Care Teams Atomizer Assembler Relationship Specialty Start Date End Date Endy [place] DO [address] [place] [address] [place] [address] PCP - General Family Medicine 07/13/18 documented as of this encounter
--- OUTSIDE RECORDS SUMMARY | 2024-03-16 03:46 | External Medical Summary | Summary of Care ---
Author Name Unknown Organization [facility] Address [address] [facility] [place] [address] Phone [phone] Care Team Providers Care Production Posting Clerk Name Role Phone Endy [place] DO Primary Care Provider [phone] [phone] Encounter Details Date Type Department Care Team (Late st Contact Info) Description 01/29/2024 Orders Only Hematology/Oncology Treatment, [place] [address] [place] [address] Sandra Evans MD [address] [place] [address] Other cirrhosis of liver (HCC)* Allergies Active [...] suspected opioid overdose. Seek immediate medical attention. [email or web address]?v=[email or web address] Active Prochlorperazine Maleate 5 MG Oral Tablet [...] morning and 1 Tablet before bedtime. Active Eunsrpyqdt-PROD-Tgugr ine 50-325-40 MG Oral Tablet (Fioricet) TAKE [...] CORD ENTANG NEC-ANTEPAR 10/30/200512/24 Other constipation 09/13/2005 05/ 6 Hyperthyroidism 05/21/2005 05/14/2017 Overview: diag with [...] 1:00 PM EDT Hem/Onc Treatment Hematology/Oncology Treatment, [place] 200 [facility] [address] Michelle, Chair 7 Hem Onc [address] [place] [address] 04/23/2024 11:20 AM EDT Office Visit Hepatology, [facility] [address] [address] Hilda Calvert DO [address] [place] [address] 06/02/2024 9:00 AM EDT Office Visit Hepatology, [facility] [address] [place] [address] Hilda Calvert DO [address] [place] [address] [address] 06/08/2024 8:00 AM EDT Office Visit Hematology/Oncology [address] [place] [address] Sandra Evans MD 200 [facility] [place] [address] 08/03/2024 4:00 PM EST Office Visit Dermatology [facility] 68 [place] [address] Saran Knutson PA-C 68 [place] [address] Scheduled Orders Name Type Priority Associated Diagnoses Orde r Schedule BASIC METABOLIC PANEL Lab Routine Other cirrhosis of liver (HCC) Expected: 02/16/2024, Expires: 02/15/2025 Health Maintenance Due Date Last Done Comments [...] Primary documented in this encounter Advance Directives * Full Code (Latest Code Status on File) Date Activated Date Inactivated Comments 10/15/2007 5:16 PM 10/17/2007 5:01 PM Care Teams Production Posting Clerk Relationship Specialty Start Date End Date Endy [place] DO 1 [facility] [address] [place] [address] [place] [address] PCP - General Family Medicine 07/13/18 documented as of this encounter
--- OUTSIDE RECORDS SUMMARY | 2024-03-16 03:46 | External Medical Summary | Summary of Care ---
Author Name Unknown Organization [facility] Address [address] [facility] [place] [address] Phone [phone] Care Team Providers Care Special Agent In Charge Name Role Phone Endy [place] DO Primary Care Provider +1 [phone] Encounter Details Date Type Department Care Team (Late st Contact Info) Description 03/10/2024 Orders Only Gastroenterology, [facility] [address] [place] [address] Hilda Calvert DO [address] [place] [address] 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) [...] suspected opioid overdose. Seek immediate medical attention. [email or web address] [email or web address]?v=[email or web address] Active Prochlorperazine Maleate 5 MG Oral Tablet [...] morning and 1 Tablet before bedtime. Active Aurfmqnvzg-DVRL-Pgafs ine 50-325-40 MG Oral Tablet (Fioricet) TAKE [...] 04/23/2024 11:20 AM EDT Office Visit Hepatology [facility] [address] [place] [address] Hilda Calvert DO [address] [place] [address] 06/02/2024 9:00 AM EDT Office Visit Hepatology [facility] [address] [place] [address] Hilda Calvert DO [address] [place] [address] 06/08/2024 8:00 AM EDT Office Visit Hematology/Oncology [facility] 200 [facility] [place] [address] Sandra Evans MD [address] [place] [address] 08/03/2024 4:00 PM EST Office Visit Dermatology [facility] 68 [place] [address] Saran Knutson PA-C 68 [place] [address] Health Maintenance Due Date Last Done Comments [...] Date/Time Associated Diagnosis Comments IR PARACENTESIS Routine 03/09/2024 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) Ascites documented in this encounter Results * IR PARACENTESIS (03/09/2024) Anatomical Region Laterality Modality Any Other 03/09/2024 Hilda Calvert DO RAD SPECIAL OR OCEDURES documented in this encounter Visit Diagnoses Diagnosis 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) Ascites Other ascites documented in this encounter Advance Directives * Full Code (Latest Code Status on File) Date Activated Date Inactivated Comments 10/15/2007 5:16 PM 10/17/2007 5:01 PM Care Teams Special Agent In Charge Relationship Specialty Start Date End Date Endy [place] DO PCP - General Family Medicine 07/13/18 documented as of this encounter
--- OUTSIDE RECORDS SUMMARY | 2024-03-16 03:47 | External Medical Summary | Summary of Care ---
Author Name Unknown Organization [facility] Address [address] [facility] [place] [address] Phone [phone] Care Team Providers Care Air Breaker Operator Name Role Phone Endy [place] DO Primary Care Provider +1 [phone] Encounter Details Date Type Department Care Team (Late st Contact Info) Description 02/24/2024 Result Scan Unspecified Department Hilda Calvert DO [address] [place] [address] <No scans attached> Allergies Active Allergy Reactions [...] suspected opioid overdose. Seek immediate medical attention. [email or web address]?[email or web address] Active Prochlorperazine Maleate 5 MG Oral Tablet [...] morning and 1 Tablet before bedtime. Active Wllzznnkmn-GBSH-Qkiqy ine 50-325-40 MG Oral Tablet (Fioricet) TAKE [...] Description 04/23/2024 11:20 AM EDT [facility] [address] [place] [address] Hilda Calvert DO [address] [place] [address] 06/02/2024 9:00 AM EDT [facility] [address] [place] [address] Hilda Calvert DO [address] [place] [address] 06/08/2024 8:00 AM EDT Office Visit Hematology/Oncology Joshua Martinez [place] 200 [place] [address] Sandra Evans MD 200 Joshua Baker [place] [address] 08/03/2024 4:00 PM EST Office Visit Dermatology [facility] 68 [place] [address] Saran Knutson PA-C [address] [place], [place] [address] [address] Health Maintenance Due Date Last Done Comments [...] Date/Time Associated Diagnosis Comments RADIOLOGY SCANNED RESULT 02/24/2024 documented in this encounter Results * RADIOLOGY SCANNED RESULT (02/24/2024) 02/24/2024 Hilda Calvert DO DIAGNOSTIC RAD IOLOGY SERVICES documented in this encounter Advance Directives * Full Code (Latest Code Status on File) Date Activated Date Inactivated Comments 10/15/2007 5:16 PM 10/17/2007 5:01 PM Care Teams Air Breaker Operator Relationship Specialty Start Date End Date Endy [place] DO [address] [address] [place] [address] PCP - General Family Medicine 07/13/18 documented as of this encounter
--- OUTSIDE RECORDS SUMMARY | 2024-03-16 03:47 | External Medical Summary | Summary of Care ---
Author Name Unknown Organization [facility] Address [address] [place] [address] Phone [phone] Care Team Providers Care Satellite Tv Installer Name Role Phone Endy [place] DO Primary Care Provider +1 [phone] Reason for Visit * Reason Onset Date Comments Precert Future 02/23/2024 monoferric Encounter Details Date Type Department Care Team (Late st Contact Info) Description 02/23/2024 Telephone Hematology/Oncology, [address] [address] Sandra Evans MD 200 [place], [place] [id number] Precert Future (monoferric) Allergies Active Allergy Reactions Criticality Noted Date Comments Codeine Hives 07/18/2012 Metformin Abdominal pain Low 03/30/2013 documented as of this encounter (statuses as of 02/23/2024) Medications Medication Sig Dispensed Refills Start Date [...] suspected opioid overdose. Seek immediate medical attention. https://www.[email or web address] [email or web address] [email or web address]/watch?v=[email or web address] Active Prochlorperazine Maleate 5 MG Oral Tablet [...] morning and 1 Tablet before bedtime. Active Qliviiawnu-CMNQ-Vqtvo ine 50-325-40 MG Oral Tablet (Fioricet) TAKE [...] as of this encounter (statuses as of 02/23/2024) Active Problems Problem Noted Date Diagnosed Date [...] as of this encounter (statuses as of 02/23/2024) Resolved Problems Problem Noted Date Diagnosed Date [...] as of this encounter (statuses as of 02/23/2024) Immunizations Name Administration Dates Next Due H1N1 [...] encounter Miscellaneous Notes * Telephone Encounter - Anju Razo OSA [...] received for monoferric, cannot be given at [facility]. Left message for patient letting her know this, advised that we will call to schedule once everything is set up. [place] plan built and routed for signautre. Waiting for auth. * Telephone Encounter - Hilda Cueva OSA - 02/23/2024 11:24 AM EDT Pt asked that her iron get done at [facility] Please advise documented in this encounter Plan of Treatment Upcoming Encounters Date Type Department Care Team (Late st Contact Info) Description 04/23/2024 11:20 AM EDT Office Visit Hepatology, [facility] [address] [place] [address] Hilda Calvert DO 132 [facility] [place] [address] 06/02/2024 9:00 AM EDT Office Visit Hepatology, [facility] [address] [place] [address] Hilda Calvert DO [address] [place] [address] 06/08/2024 8:00 AM EDT Office Visit Hematology/Oncology [facility] [place] 200 [address] [place] [address] Sandra Evans MD 200 [place] [address] 08/03/2024 4:00 PM EST Office Visit Dermatology [facility] 68 [place] [address] Saran Knutson PA-C 68 [place] [address] Health Maintenance Due Date Last Done Comments [...] 09/01/2023, 04/26, 12/19/2016, Additional history exists GFR 02/15/2025 02/16/2024, 01/24, 02/11/2024, Additional history exists Lipid Panel 10/23/2028 10/24/2023, [...] 5:16 PM 10/17/2007 5:01 PM Care Teams Satellite Tv Installer Relationship Specialty Start Date End Date Endy [place] DO [address] [place] [address] [place] [address] PCP - General Family Medicine 07/13/18 documented as of this encounter
--- OUTSIDE RECORDS SUMMARY | 2024-03-16 03:47 | External Medical Summary | Summary of Care ---
Author Name Unknown Organization [facility] Address [address] [facility] [place] [address] Phone [phone] Care Team Providers Care Social Work Professor Name Role Phone Endy Stanley DO Primary Care Provider +1 -[phone] Encounter Details Date Type Department Care Team (Late st Contact Info) Description 02/25/2024 Orders Only Gastroenterology, [facility] [address] [place] [address] Hilda Calvert DO [address] [place] [address] Allergies Active Allergy Reactions Criticality Noted Date [...] suspected opioid overdose. Seek immediate medical attention. [email or web address]?v=[email or web address] Active Prochlorperazine Maleate 5 MG Oral Tablet [...] morning and 1 Tablet before bedtime. Active Dlrqelbfgv-QMDP-Yqeem ine 50-325-40 MG Oral Tablet (Fioricet) TAKE [...] 04/23/2024 11:20 AM EDT Office Visit [facility]atology, [facility] [address] [place] [address] Hilda Calvert DO [address] [place] [address] 06/02/2024 9:00 AM EDT Office Visit Hepatology [facility] [address] [place] [address] Hilda Calvert DO [address] [place] [address] 06/08/2024 8:00 AM EDT Office Visit Hematology/Oncology [facility] [address] [place] [address] Sandra Evans MD 200 [facility] [place] [address] 08/03/2024 4:00 PM EST Office Visit Dermatology [facility] 68 [place] [address] Saran Knutson PA-C 68 [place] [address] Health Maintenance Due Date Last Done Comments [...] Priority Date/Time Associated Diagnosis Comments CHEMISTRY-OUTSIDE Routine 02/24/2024 documented in this encounter Results * (ABNORMAL) CHEMISTRY-OUTSIDE (02/24/2024) Not all results display below - see scan for full detail OUTSIDE LAB (SEE SCANNED REPORT) Comment:SCAN INLCUDES: CMP CREATININE-OUTSID E LAB 0.71 0.6 - 1.2 MG/DL OUTSIDE LAB (SEE SCANNED REPORT) EGFR-OUTSIDE LAB 104.3 ML/MIN OUT SIDE LAB (SEE SCANNED REPORT) POTASSIUM-OUTSIDE LAB 3.3(A) 3.5 - 5.1 MMOL/L OUTSIDE LAB (SEE SCANNED REPORT) GLUCOSE-OUTSIDE LAB 245(A) 70 - 99 MG/DL OUTSIDE LAB (SEE SCANNED REPORT) HOURS FASTING OUTSID E LAB (SEE SCANNED REPORT) TRIGLYCERIDES-OUT SIDE LAB OUTSIDE LAB (SEE SCANNED REPORT) CHOLESTEROL-OUTSI DE LAB OUTSIDE LAB (SEE SCANNED REPORT) HDL-OUTSIDE LAB OUTS GRECIA LAB (SEE SCANNED REPORT) CHOL/HDL RATIO-OUTSIDE LAB OUTSIDE LA B (SEE SCANNED REPORT) LDL (CALCULATED)-OUTS GREICA LAB OUTSIDE LAB (SEE SCANNED REPORT) LDL (DIRECT MEASURE)-OUTSIDE LAB OUTSIDE LAB (SEE SCANNED REPORT) HEMOGLOBIN, B8C-ENDXUXQ LAB OUTSIDE LAB (SEE SCANNED REPORT) PHOSPHORUS-OUTSID E LAB OUTSIDE LAB (SEE SCANNED REPORT) PTH-OUTSIDE LAB OUTS GRECIA LAB (SEE SCANNED REPORT) MICROALBUMIN RATIO-OUTSIDE LAB OUTSIDE LA B (SEE SCANNED REPORT) PROTEIN, UA-OUTSIDE LAB OUTSIDE LAB (SEE SCANNED REPORT) HGB OUTSIDE LA B (SEE SCANNED REPORT) 02/24/2024 Hilda Calvert DO LABORATORY OUTSIDE LAB (SEE SCANNED REPORT) documented in this encounter Advance Directives * Full Code (Latest Code Status on File) Date Activated Date Inactivated Comments 10/15/2007 5:16 PM 10/17/2007 5:01 PM Care Teams Social Work Professor Relationship Specialty Start Date End Date Endy Stanley DO 1 [facility] [address] [place] [address] PCP - General Family Medicine 07/13/18 documented as of this encounter
--- OUTSIDE RECORDS SUMMARY | 2024-03-16 03:47 | External Medical Summary ---
Author Name UNSPECIFIED Address Unknown Organization [facility] History of Encounters Reason for [...] rarel y or never has bowel incontinence Cognitive and Behavioral and Psychiatric Symptoms: None Current Ability: Bathing: Able to bathe in shower or tub with the intermittent assistance of another person: (a) for intermittent supervision or encouragement or reminders, OR (b) to get in and out of the shower or tub, OR (c) for washing difficult to reach areas. Current: Management Of Oral Medications: Able to [...] [facility] Diagnosis 2: ICD Code: L03.115 , Cellulitis of right lower limb Home Care Diagnosis 2: Severity [facility] Diagnosis 3: ICD Code: K74.60, Unspecified cirrhosis of liver Home Care Diagnosis 3: Severity [facility] Diagnosis 4: ICD Code: K75.81, Nonalcoholic steatohepatitis ([place]) Home Care Diagnosis 4: Severity [facility] Diagnosis 5: ICD Code: D50.9, Iron deficiency anemia, unspecified Home Care Diagnosis 5: Severity [place]
--- OUTSIDE RECORDS SUMMARY | 2024-03-16 03:47 | External Medical Summary | Summary of Care ---
Author Name Unknown Organization [facility] Address [address] [place] [address] Phone [phone] Care Team Providers Care Subassemblies Wirer Name Role Phone Endy Stanley DO Primary Care Provider [phone] [phone] Reason for Visit * Reason Onset Date Comments Precert Future 02/23/2024 monoferric Encounter Details Date Type Department Care Team (Late st Contact Info) Description 02/23/2024 Telephone Hematology/Oncology, [address] [address] Sandra Evans MD 200 [place], [place] [phone] Precert Future (monoferric) Allergies Active Allergy Reactions [...] suspected opioid overdose. Seek immediate medical attention. [email or web address]://www.[email or web address] [email or web address]/watch?v=[email or web address] Active Prochlorperazine Maleate 5 MG Oral Tablet [...] morning and 1 Tablet before bedtime. Active Rrggbbiucx-ZBBR-Okqvr ine 50-325-40 MG Oral Tablet (Fioricet) TAKE [...] patient to discuss about Monoferric. Advised that [facility] does not carry this medication. She states she has met her deductible with her insurance. Advised we will wait to see what her OOP expensewould be before scheduling the infusion. Pt also inquiring about getting a port or PICC line placed. I advised that she needs to discuss this with the transplant provider in [place] in which she stated she has been [...] received for monoferric, cannot be given at [facility]. Left message for patient letting her know this, advised that we will call to schedule once everything is set up. [place] plan built and routed for signautre. Waiting for auth. * Telephone Encounter - Hilda Cueva OSA - 02/23/2024 11:24 AM EDT Pt asked that her iron get done at [facility] Please advise documented in this encounter Plan of Treatment Upcoming Encounters Date Type Department Care Team (Late st Contact Info) Description 04/23/2024 11:20 AM EDT Office Visit Hepatology, [address] [place] [address] Hilda Calvert, [address] [place] [address] 06/02/2024 9:00 AM EDT Office Visit Hepatology, [facility] [address] [place] [address] Hilda Calvert, [address] [place] [address] 06/08/2024 8:00 AM EDT Office Visit Hematology/Oncology [facility] [place] [phone] Sandra Evans MD 200 [facility] [place] [address] 08/03/2024 4:00 PM EST Office Visit Dermatology [facility] 68 [place] [address] Saran Knutson PA-C [address] [place] [address] Health Maintenance Due Date Last Done Comments [...] 5:16 PM 10/17/2007 5:01 PM Care Teams Subassemblies Wirer Relationship Specialty Start Date End Date Endy Stanley DO 1 [facility] [address] [facility] [place] [address] PCP - General Family Medicine 07/13/18 documented as of this encounter
--- OUTSIDE RECORDS SUMMARY | 2024-03-16 03:47 | External Medical Summary | Summary of Care ---
Author Name Unknown Organization [facility] Address [address] [place] [address] Phone [phone] Care Team Providers Care Ichthyologist Name Role Phone Endy Stanley DO Primary Care Provider [phone] [phone] Reason for Visit * Reason Onset Date Comments Precert Future 02/23/2024 monoferric Encounter Details Date Type Department Care Team (Late st Contact Info) Description 02/23/2024 Telephone Hematology/Oncology, [address] [address] Sandra Evans MD 200 [place], [place] [phone] Precert Future (monoferric) Allergies Active Allergy Reactions [...] suspected opioid overdose. Seek immediate medical attention. [email or web address]://www.[email or web address] [email or web address] [email or web address]/watch?v=[email or web address] [email or web address] Active Prochlorperazine Maleate 5 MG Oral Tablet [...] morning and 1 Tablet before bedtime. Active Ckwruzfcau-LHEK-Jhvcs ine 50-325-40 MG Oral Tablet (Fioricet) TAKE [...] discuss this with the transplant provider in [place] in which she stated she has been [...] received for monoferric, cannot be given at [facility]. Left message for patient letting her know this, advised that we will call to schedule once everything is set up. [place] plan built and routed for signautre. Waiting for auth. * Telephone Encounter - Hilda Cueva OSA - 02/23/2024 11:24 AM EDT Pt asked that her iron get done at [facility] Please advise documented in this encounter Plan of Treatment Upcoming Encounters Date Type Department Care Team (Late st Contact Info) Description 04/23/2024 11:20 AM EDT Office Visit Hepatology [facility] [address] [place] [address] Hilda Calvert DO [address] [place] [address] 06/02/2024 9:00 AM EDT Office Visit Hepatology [facility] [address] [place] [address] Hilda Calvert DO [address] [place] [address] 06/08/2024 8:00 AM EDT Office Visit Hematology/Oncology [facility] [place] 200 [facility] [place], [place] [phone] Sandra Evans MD 200 [facility] [place], [place] [address] 08/03/2024 4:00 PM EST Office Visit Dermatology [facility] 68 [place] [address] Saran Knutson PA-C 68 [place], [place] [phone] Health Maintenance Due Date Last Done Comments [...] 5:16 PM 10/17/2007 5:01 PM Care Teams Ichthyologist Relationship Specialty Start Date End Date Endy Stanley DO 1 [facility] [address] [place] [address] [place] [address] PCP - General Family Medicine 07/13/18 documented as of this encounter
--- OUTSIDE RECORDS SUMMARY | 2024-03-16 03:47 | External Medical Summary | Summary of Care ---
Author Name Unknown Organization [facility] Address [address] [place] [address] Phone [phone] Care Team Providers Care Instructor Of Education Name Role Phone Endy Stanley DO Primary Care Provider +1 [phone] Reason for Visit * Reason Onset Date Comments Precert Future 02/23/2024 monoferric Encounter Details Date Type Department Care Team (Late st Contact Info) Description 02/23/2024 Telephone Hematology/Oncology, [address] [address] Sandra Evans MD 200 [place], [place] [phone] Precert Future (monoferric) Allergies Active Allergy Reactions [...] suspected opioid overdose. Seek immediate medical attention. [email or web address] [email or web address]/watch?v=[email or web address] [email or web address] Active Prochlorperazine Maleate 5 MG Oral Tablet [...] morning and 1 Tablet before bedtime. Active Efhmqxgthi-UCFV-Gflwr ine 50-325-40 MG Oral Tablet (Fioricet) TAKE [...] for monoferric, cannot be given at [facility]. Left message for patient letting her know this, advised that we will call to schedule once everything is set up. [place] plan built and routed for signautre. Waiting for auth. * Telephone Encounter - Hilda Cueva OSA - 02/23/2024 11:24 AM EDT Pt asked that her iron get done at [facility] Please advise documented in this encounter Plan of Treatment Upcoming Encounters Date Type Department Care Team (Late st Contact Info) Description 04/23/2024 11:20 AM EDT Office Visit Hepatology, [facility] [address] [place] [address] Hilda Calvert DO 132 [facility] [place] [address] 06/02/2024 9:00 AM EDT Office Visit Hepatology, [facility] [address] [place] [address] Hilda Calvert DO [address] [place] [address] 06/08/2024 8:00 AM EDT Office Visit Hematology/Oncology [facility] [place] [address] [place] [address] Sandra Evans MD 200 [place] [address] 08/03/2024 4:00 PM EST Office Visit Dermatology [facility] 68 [place] [address] Saran Knutson PA-C 68 [place] [address] Health Maintenance Due Date Last Done Comments [...] 5:16 PM 10/17/2007 5:01 PM Care Teams Instructor Of Education Relationship Specialty Start Date End Date Endy Stanley DO [address] [place] [address] [place] [address] PCP - General Family Medicine 07/13/18 documented as of this encounter
--- OUTSIDE RECORDS SUMMARY | 2024-03-16 03:48 | External Medical Summary | Summary of Care ---
Author Name Unknown Organization [facility] Address [address] [place] [address] Phone [phone] Care Team Providers Care Cooling Room Attendant Name Role Phone Endy Stanley DO Primary Care Provider +1 [phone] Reason for Visit * Reason Onset Date Comments Precert Future 02/23/2024 monoferric Encounter Details Date Type Department Care Team (Late st Contact Info) Description 02/23/2024 Telephone Hematology/Oncology, [address] [address] Sandra Evans MD 200 [place], [place] [phone] Precert Future (monoferric) Allergies Active Allergy Reactions [...] suspected opioid overdose. Seek immediate medical attention. https://www.[email or web address] [email or web address]/watch?v=[email or web address] [email or web address] Active Prochlorperazine Maleate 5 MG Oral Tablet [...] morning and 1 Tablet before bedtime. Active Dbxsxaqvdj-NOZN-Ktenw ine 50-325-40 MG Oral Tablet (Fioricet) TAKE [...] received for monoferric, [facility] at [facility]. Left message for patient letting her know this, advised that we will call to schedule once everything is set up. [place] plan built and routed for signautre. Waiting for auth. * Telephone Encounter - Hilda Cueva OSA - 02/23/2024 11:24 AM EDT Pt asked that her iron get done at [facility] Please advise documented in this encounter Plan of Treatment Upcoming Encounters Date Type Department Care Team (Late st Contact Info) Description 04/23/2024 11:20 AM EDT Office Visit Hepatology, [facility] [address] [place] [address] Hilda Calvert, [address] [place] [address] 06/02/2024 9:00 AM EDT Office Visit Hepatology, [facility] [address] [place] [address] Hilda Calvert DO [address] [place] [address] 06/08/2024 8:00 AM EDT Office Visit Hematology/Oncology [facility] [address] [facility] [place] [address] Sandra Evans MD [address] [place] [address] 08/03/2024 4:00 PM EST Office Visit Dermatology [facility] 68 [place] [address] Saran Knutson PA-C [address] [place] [address] Health Maintenance Due Date Last Done Comments Diabetic Eye Exam 1998 Hepatitis B (1 of 3 - 19+ 3-dose series) 12/09/1999 HPV/Co-Test 2010 Cervical Cancer Screening 09/08/2011 Pap Smear 09/08/2011 09/08/2008, 07/25, 01/13/2006, Additional history exists Albumin/Creatinine Ratio 11/25/2015 11/24/2014, 08/0 02/2013 Depression Monitoring 10/15/2017 10/15/2016 Diabetic Foot Exam 05/14/2018 05/14/2017, 0 11/15/2015, 12/23/2014 DTaP,Tdap,and Td Vaccines (2 - Td or Tdap) 05/18/2019 05/18/2009 B-12 08/19/2019 08/19/2018 Mammogram 2020 HbA1c 03/01/2024 09/01/2023, 0509/2022, 01/23/2022, Additional history exists Influenza Vaccine (FLU [...] 5:16 PM 10/17/2007 5:01 PM Care Teams Cooling Room Attendant Relationship Specialty Start Date End Date Endy Stanley DO 1 [facility] [place] [place] [address] [place] [address] PCP - General Family Medicine 07/13/18 documented as of this encounter
--- OUTSIDE RECORDS SUMMARY | 2024-03-16 03:48 | External Medical Summary | Summary of Care ---
Author Name Unknown Organization [facility] Address [address] [place] [address] Phone [phone] Care Team Providers Care Resume Writer Name Role Phone Endy Stanley DO Primary Care Provider +1 [phone] Reason for Visit * Reason Onset Date Comments Precert Future 02/23/2024 monoferric Encounter Details Date Type Department Care Team (Late st Contact Info) Description 02/23/2024 Telephone Hematology/Oncology, [address] [address] Sandra Evans MD 200 [place], [place] [phone] Precert Future (monoferric) Allergies Active Allergy Reactions [...] suspected opioid overdose. Seek immediate medical attention. [email or web address] [email or web address]?v=[email or web address] Active Prochlorperazine Maleate 5 MG Oral Tablet [...] morning and 1 Tablet before bedtime. Active Xxxtrlyzwu-UBFV-Qgtqy ine 50-325-40 MG Oral Tablet (Fioricet) TAKE [...] received for monoferric, cannot be given at [facility]. Left message for patient letting her know this, advised that we will call to schedule once everything is set up. [place] plan built and routed for signautre. Waiting for auth. * Telephone Encounter - Hilda Cueva OSA - 02/23/2024 11:24 AM EDT Pt asked that her iron get done at [facility] Please advise documented in this encounter Plan of Treatment Upcoming Encounters Date Type Department Care Team (Late st Contact Info) Description 04/23/2024 11:20 AM EDT Office Visit Hepatology, [facility] [address] [place] [address] Hilda Calvert, [address] [place] [address] 06/02/2024 9:00 AM EDT Office Visit Hepatology, [facility] [address] [place] [address] Hilda Calvert DO [address] [place] [address] 06/08/2024 8:00 AM EDT Office Visit Hematology/Oncology [facility] 200 [facility] [place] [address] Sandra Evans MD [address] [place] [address] 08/03/2024 4:00 PM EST Office Visit Dermatology [facility] 68 [place] [address] Saran Knutson PA-C [address] [place] [address] Health Maintenance Due Date Last Done Comments [...] 5:16 PM 10/17/2007 5:01 PM Care Teams Resume Writer Relationship Specialty Start Date End Date Endy Stanley DO 1 [facility] [place] [address] [place] [address] PCP - General Family Medicine 07/13/18 documented as of this encounter
--- OUTSIDE RECORDS SUMMARY | 2024-03-16 03:48 | External Medical Summary | Summary of Care ---
Author Name Unknown Organization [facility] Address [address] [facility] [place] [address] Phone [phone] Care Team Providers Care Veneer Splicer Name Role Phone Endy Stanley DO Primary Care Provider +1 [phone] Reason for Visit * Reason Comments Follow Up 3 month follow up Encounter Details Date Type Department Care Team (Late st Contact Info) Description 02/23/2024 10:30 AM EDT Office Visit Hematology/Oncology [facility] [address] [facility] [place] [address] Sandra Evans MD [address] [facility] [place] [address] Other cirrhosis of liver (HCC)*; Iron deficiency anemia, unspecified iron deficiency anemia [...] suspected opioid overdose. Seek immediate medical attention. [email or web address]?[email or web address] Active Prochlorperazine Maleate 5 MG Oral Tablet [...] morning and 1 Tablet before bedtime. Active Klioasewgt-YLVJ-Mvpjh ine 50-325-40 MG Oral Tablet (Fioricet) TAKE [...] Sign Reading Time Taken Comments Blood Pressure 124/73 02/23/2024 10:40 AM EDT Pulse 87 02/23/2024 10:40 AM EDT Temperature 36.7 C (98 F) 02/23/2024 10: 40 AM EDT Respiratory Rate - - Oxygen Saturation 95% 02/23/2024 10: 40 AM EDT Inhaled Oxygen Concentration - - Weight 102.6 kg (226 lb 4.8 oz) 024 10:40 AM EDT Height - - Body Mass Index 39.11 10/02/2023 2:26 PM EST documented in this encounter Functional Status Functional Status Response Date of Assess ment Does this person have seriou s difficulty walking or climbing stairs? Yes-has done this two times in the past week 09/01/2023 documented as of this encounter Progress Notes * Sandra Evans MD - 02/23/2024 10:53 AM EDT Outpatient Consult Note Data Source: Patient, Epic record. Data Source: Patient, Epic record. 02/23/2024 10:53 AM Niesha Gutiérrez [id number] 43 year old Patient Encounter: HEMATOLOGY/ONCOLOGY [facility] Diagnosis: 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) Splenic vein thrombosis Current Treatment: Observation Previous Treatment: Lovenox History : 43-year-old female with a complicated past medical history [...] iron infusion during the recent admission at [facility]. She had a CBC done yesterday which [...] and finally she would biopsy done at [facility] and they told her she has liver cirrhosis. She states she has never drank alcohol before and was told this was from G[place]ES[place]. She denies smoking all drinking alcohol. Family history significant for mother was diagnosed skin cancer. Father was also diagnosed of livercirrhosis. He was alcoholic Interval History: She continues to have paracentesis done twice a week. She i venous Doppler of the lower extremity was negative for DVT. s also on the transplant list. She was recently admitted to the hospital with cellulitis and was treated with antibiotics with improvement in the symptoms. Venous Doppler ultrasound of the lower extremity was negative for DVT. After the treatment with antibiotics, she is feeling better with improvement in the redness and erythema. LABS/IMAGING: Results for orders placed or performed in visit on 02/17/24 CHEMISTRY-OUTSIDE Result Value Ref Range Not all results display below - see scan for full detail CREATININE-OUTSIDE LAB 1.09 0.6 - 1.2 MG/DL EGFR-OUTSIDE LAB 62.1 ML/MIN POTASSIUM-OUTSIDE LAB 3.6 3.5 - 5.1 MMOL/L GLUCOSE-OUTSIDE LAB 171 (A) 70 - 99 MG/DL HOURS FASTING TRIGLYCERIDES-OUTSIDE LAB CHOLESTEROL-OUTSIDE LAB HDL-OUTSIDE LAB CHOL/HDL RATIO-OUTSIDE LAB LDL (CALCULATED)-OUTSIDE LAB LDL (DIRECT MEASURE)-OUTSIDE LAB HEMOGLOBIN, O2J-CDVTZXX LAB PHOSPHORUS-OUTSIDE LAB PTH-OUTSIDE LAB MICROALBUMIN RATIO-OUTSIDE LAB PROTEIN, UA-OUTSIDE LAB HGB *Note: Due to a large number of results and/or encounters for the requested time period, some results have not been displayed. A complete set of results can be found in Results Review. Last CBC were done on 02/18/2024 which shows WBC count 3.2, hemoglobin 7.5 and platelet count 53,000. PT was 14 and INR was 1.3 with normal APTT. Iron level was 28, TIBC was 206 and transferrin saturation 14% with ferritin of 89.9. Ammonia was 105. REVIEW OF SYSTEMS: General: No Fever, chills, night sweats, or weight loss. HEENT: No change in visual acuity, blurred or double vision. No epistaxis, facial pain, nasal discharge or change in hearing. Denies dysphagia, no muscosal ulceration, or sores noted. Cardiovascular: No chest pain, YAN, or palpitations Respiratory: No shortness of breath, cough, hemoptysis, or pleuritic chest pain Gastrointestinal: No abdominal pain, nausea, vomiting, diarrhea, rectal pain or bleeding Genitourinary: Denies Hematuria or dysuria Musculoskeletal: Generalized weakness and fatigue Psychiatric: No vegetative signs of depression Endocrine: [...] Current Outpatient Medications Medication Sig Dispense Refill Pramipexole Dihydrochloride 0.5 MG Oral Tablet Take 1 Tablet by mouth in the morning and 1 Tablet at noon and 1 Tablet before bedtime. ONETOUCH ULTRASOFT LANCETS [facility] [place] directed [address] TRETINOIN [...] suspected opioid overdose. Seek immediate medical attention. https://www.youtube.com/watch?v=u57uSpf9LcZ (Patient not taking: Reported on 11/27/2023) Prochlorperazine [...] Tablet by mouth at bedtime as needed. (Patient not taking: Reported on 02/23/2024) Cholecalciferol 125 MCG (5000 UT) Oral Tablet Take by mouth. Enoxaparin Sodium 100 MG/ML Injection Solution Prefilled Syringe Inject 100 mg under the skin in the morning. (Patient not taking: Reported on 11/27/2023) Omeprazole 40 MG Oral Capsule Delayed Release (PriLOSEC) Take 1 Capsule by mouth in the morning. Klor-Con 20 MEQ Oral Packet Take 20 [...] bedtime. (Patient not taking: Reported on 11/27/2023) Aiskeydbii-TWWK-Myhurxtt 50-325-40 MG Oral Tablet (Fioricet) TAKE 2 [...] mg dose to = 75 mg daily.. (Patient taking differently: Take 4 Tablets by mouth in the morning. Take 1 tablet daily of 150mg.) 90 Tablet 1 Spironolactone 100 MG Oral [...] up to twice weekly. 100 mL 52 Bumetanide 1 MG Oral Tablet (Bumex) TAKE 1 TABLET BY MOUTH IN THE MORNING AND BEFORE BEDTIME 180 Tablet 1 No current facility-administered medications for this visit. Social History Tobacco Use Smoking status: Never Smokeless tobacco: Never Vaping Use Vaping status: Never Used Substance Use Topics Alcohol use: Not Currently Comment: 3 x yr Drug use: No Review of patient's allergies indicates: Allergen Reactions Codeine Hives Metformin Abdominal pain PHYSICAL EXAMINATION: General Appearance: Weak appearing patient in no acute distress BP 124/73 (BP Site: Left Arm, BP Position: Sitting, BP Cuff Size: Large) | Pulse 87 | Temp 36.7 C (98 F) (Tympanic) | Wt 102.6 kg (226 lb 4.8 oz) | SpO2 95% | BMI 39.11 kg/m | BSA 2.15 m Vitals reviewed. HEENT: No oral or pharyngeal masses, ulceration or thrush noted, no sinus tenderness. Neck is supple with no thyromegaly or JVD noted. Lymph Nodes: No lymphadenopathy noted in the occipital, pre and post auricular, cervical, supra andinfraclavicular, axillary, epitrochlear, inguinal, and popliteal region. Lungs/Thorax: Clear to auscultation, no accessory muscles of respiration being used. Heart: Regular rate and rhythm, normal S1, S2 Abdomen: Soft, nontender, bowel sounds present, no appreciable hepatosplenomegaly, no palpable masses Extremeties: Good pulses bilaterally, bilateral lower extremity edema ASSESSMENT: 43-year-old female with a complicated past medical history [...] on Plavix which was changed to Lovenox . Because of underlying liver cirrhosis she haselevated PT and PTT. In liver cirrhosis, portal vein thrombosis that occurs within the main portal vein and intrahepaticportal branches, is one of the most common complications. High incidence of portal vein thrombosis in the setting of liver cirrhosis is mainly due to hypercoagulable state and altered blood flow in the portal vein. Patient history of multiple other medical problems and high-risk or bleeding. Currently she is not on Lovenox or any anticoagulation. No episodes of bleeding. Overall clinically she is feeling better. She was recently admitted the hospital with increasing pain and swelling in the lower extremity and was treated with the antibiotics for cellulitis with improvement in the symptoms. Doppler ultrasound of the lower extremity was negative. She is also complaining of increasing uncomfortable feeling and pain despite decreased edema and swelling. Ferritin level was 89 with a low transferrin saturation. She was scheduled to be treated with Venofer but because of the shortness supply I will change it to mono ferric iron infusion. Discussed with the patient about the diagnosis reviewed all the available blood test result with her. Afterdiscussion she agreed to proceed with treatment. She was also evaluated by the transplant team and currently she is on transplant list. PLAN: As above. She will be treated with the mono ferric infusion. She will return clinic for follow-up in 3 months with CBC, CMP, ferritin iron screen. The patient voiced understanding of all of [...] documented in this encounter Nursing Notes * Sherin Bloom, MED ASSIST - 02/23/2024 10:45 AM EDT Patient identifed by name and birthdate Do you have any concerns about pain management for today's visit? No Living Will or Advance Directive for Health Care as noted on the problem list. [facility] is a way you can talk to your provider on line through e-mail. Would you like to sign up? I can activate it for you? ALREADY ACTIVE Filed Vitals: 02/23/24 1040 BP: 124/73 Pulse: 87 Temp: 36.7 C (98 F) TempSrc: Tympanic SpO2: 95% Weight: 102.6 kg (226 lb 4.8 oz) Patient was instructed to not get up [...] 04/23/2024 11:20 AM EDT Office Visit Hepatology, [facility] [address] [place] [address] Hilda Calvert DO [address] [place] [address] 06/02/2024 9:00 AM EDT Office Visit Hepatology, [facility] [address] [place] [address] Hilda Calvert DO [address] [place] [address] 06/08/2024 8:00 AM EDT Office Visit Hematology/Oncology [facility] [address] [place] [address] Sandra Evans MD [address] [place] [address] 08/03/2024 4:00 PM EST Office Visit [address] [phone] Saran Knutson PA-C [address] [place], [place] [address] [place] [address] Scheduled Orders Name Type Priority Associated Diagnoses Orde r Schedule CBC WITH WBC DIFFERENTIAL Lab Routine Other cirrhosis of liver (HCC) Iron deficiency anemia, unspecified iron deficiency anemia type Expected: 06/07/2024, Expires: 01/11/2025 COMPREHENSIVE METABOLIC PANEL Lab Routine Other cirrhosis of liver (HCC) Iron deficiency anemia, unspecified iron deficiency anemia type Expected: 06/07/2024, Expires: 01/11/2025 FERRITIN Lab Routine Other cirrhosis of liver (HCC) Iron deficiency anemia, unspecified iron deficiency anemia type Expected: 06/07/2024, Expires: 01/11/2025 IRON SCREEN, INCLUDING TIBC Lab Routine Other cirrhosis of liver (HCC) Iron deficiency anemia, unspecified iron deficiency anemia type Expected: 06/07/2024, Expires: 01/11/2025 LD Lab Routine Other cirrhosis of liver (HCC) Iron deficiency anemia, unspecified iron deficiency anemia type Expected: 06/07/2024, Expires: 01/11/2025 Health Maintenance Due Date Last Done Comments [...] Diagnosis Other cirrhosis of liver (HCC)- Primary Iron deficiency anemia, unspecified iron deficiency anemia type documented in this encounter Advance Directives * Full Code (Latest Code Status on File) Date Activated Date Inactivated Comments 10/15/2007 5:16 PM 10/17/2007 5:01 PM Care Teams Veneer Splicer Relationship Specialty Start Date End Date Endy Stanley DO [address] [address] [place] [address] PCP - General Family Medicine 07/13/18 documented as of this encounter"
--- OUTSIDE RECORDS SUMMARY | 2024-03-16 03:48 | External Medical Summary ---
Author Name UNSPECIFIED Address Unknown Organization [facility] History of Encounters Reason for Assessment: Transferred to an inpatient facility - patient not discharged from agency Inpatient Facility where the patient been admitted: Hospital
--- OUTSIDE RECORDS SUMMARY | 2024-03-16 03:48 | External Medical Summary ---
Author Name UNSPECIFIED Address Unknown Organization [facility] History of Encounters Reason for Assessment: [...]
--- OUTSIDE RECORDS SUMMARY | 2024-03-16 03:48 | External Medical Summary | Summary of Care ---
Author Name Unknown Organization [facility] Address [address] [facility] [place] [address] Phone [phone] Care Team Providers Care Talent Management Manager Name Role Phone Endy Stanley DO Primary Care Provider [phone] [phone] Reason for Visit * Reason Comments eRx-Medication Refill Encounter Details Date Type Department Care Team (Late st Contact Info) Description 02/18/2024 Refill Hepatology, [facility] [address] [place] [address] Hilda Calvert DO [address] [place] [address] 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) Allergies Active Allergy Reactions Criticality Noted Date Comments Codeine Hives 07/18/2012 Metformin Abdominal pain Low 03/30/2013 documented as of this encounter (statuses as of 02/18/2024) Medications Medication Sig Dispensed Refills Start Date End Date Status ONETOUCH ULTRASOFT LANCETS MISCIndications:Typ e II or unspecified type diabetes mellitus without mention of complication, uncontrolled use as directed [address] 3 Active TRETINOIN 0.05 % EX CREAIndications:Oth er acne [...] in the evening. Goal BM=3-4 times daily. 3 Active Ondansetron HCl 8 MG Oral Tablet (Zofran) Take by mouth every 8 hours as needed for Nausea. Active Ipratropium-Albuter ol 20-100 MCG/ACT Inhalation Aerosol Solution Inhale 1 Puff by mouth in the morning and 1 Puff at noon and 1 Puff in the evening and 1 Puff before bedtime. Active Naloxone HCl 4 MG/0.1ML Nasal Liquid Administer 0.1 mL into nostril as needed. Administer 1 spray into 1 nostril for suspected opioid overdose. Seek immediate medical attention. [email or web address]/[email or web address] Active Prochlorperazine Maleate 5 MG Oral Tablet [...] the morning and 20 mEq before bedtime. 3 Active Levothyroxine Sodium 300 MCG Oral Tablet Take 1 Tablet by mouth in the morning. 3 Active Midodrine HCl 2.5 MG Oral [...] morning and 1 Tablet before bedtime. Active Fsnzgqrjqw-SKKA-Wom feine 50-325-40 MG Oral Tablet (Fioricet) TAKE 2 TABLETS BY MOUTH EVERY 6 HOURS IF NEEDED FOR PAIN - MAX DAILY DOSE OF 8 TABS 3 Active Doxycycline Monohydrate 100 MG Oral Tablet Take 1 Tablet by mouth in the morning and 1 Tablet before bedtime. 4 Active rifAXIMin 550 MG Oral Tablet [...] 5mg if systolic blood pressure below 140. 4 Active Levothyroxine Sodium 25 MCG Oral Tablet (Levoxyl) Take 1 Tablet by mouth in the morning. 4 Active Sertraline HCl 50 MG Oral Tablet (Zoloft) Take 1 Tablet by mouth in the morning. 90 Tablet 4 Active Sertraline HCl 25 MG Oral Tablet (Zoloft) Take 1 Tablet by mouth in the morning. Take with 50 mg dose to = 75 mg daily.. 90 Tablet 1 4 Active Spironolactone 100 MG Oral Tablet (Aldactone)Indicati [...] bedtime. Active Albumin Human 25 % Intravenous SolutionIndications [...] twice weekly. 100 mL 52 4 Active Bumetanide 1 MG Oral Tablet (Bumex)Indications: 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) TAKE 1 TABLET BY MOUTH IN THE MORNING AND BEFORE BEDTIME 180 Tablet 1 4 Active Bumetanide 1 MG Oral TabletIndications:L iver cirrhosis secondary to nonalcoholic steatohepatitis ([place]ES[place]E) (HCC) Take 2 Tablets by mouth in the morning and 2 Tablets before bedtime. 180 Tablet 1 3 024 Discontinued documented as of this encounter (statuses as of 02/18/2024) Active Problems Problem Noted Date Diagnosed Date [...] as of this encounter (statuses as of 02/18/2024) Resolved Problems Problem Noted Date Diagnosed Date [...] as of this encounter (statuses as of 02/18/2024) Immunizations Name Administration Dates Next Due H1N1 [...] encounter Miscellaneous Notes * Telephone Encounter - Chad Banerjee DO - 02/18/2024 8:04 AM EDTSigned Prescriptions: Disp Refills Bumetanide 1 MG Oral Tablet (Bumex) 180 Ta*1 Sig: TAKE 1 TABLET BY MOUTH IN THE MORNING AND BEFORE BEDTIMEAuthorizing Provider: CHAD BANERJEE documented in this encounter Plan of Treatment Upcoming Encounters Date Type Department Care Team (Late st Contact Info) Description 02/19/2024 9:30 AM EDT [address] [address] [place], [facility] [address] [place] [facility] [place] [address] 02/23/2024 10:30 AM EDT Office Visit Hematology/Oncology [facility] [place] [address] [facility] [place] [address] Sandra Evans MD [address] [facility] [place] [address] 04/23/2024 11:20 AM EDT Office Visit Hepatology, [facility] [address] [place] [address] Hilda Calvert DO [address] [facility] [place] [address] 06/02/2024 9:00 AM EDT Office Visit Hepatology, [facility] [address] [place] [address] Hilda Calvert DO [address] [place] [address] 08/03/2024 4:00 PM EST Office Visit Dermatology [facility] [address] [place] [address] Saran Knutson PA-C [address] [place] [address] Health Maintenance Due Date Last Done Comments [...] 12/19/2016, Additional history exists GFR 02/15/2025 02/16/2024, 01/23, 02/05/2024, Additional history exists Lipid Panel 10/23/2028 10/24/2023, [...] (HCC) documented in this encounter Advance Directives * Full Code (Latest Code Status on File) Date Activated Date Inactivated Comments 10/15/2007 5:16 PM 10/17/2007 5:01 PM Care Teams Talent Management Manager Relationship Specialty Start Date End Date Endy Stanley DO [address] [address] [place] [address] PCP - General Family Medicine 07/13/18 documented as of this encounter
--- OUTSIDE RECORDS SUMMARY | 2024-03-16 03:48 | External Medical Summary | Summary of Care ---
Author Name Unknown Organization [facility] Address [address] [place] [address] Phone [phone] Care Team Providers Care Compliance Reviewer Name Role Phone Endy Stanley DO Primary Care Provider [phone] [phone] Reason for Visit * Reason Onset Date Comments Precert Future 02/23/2024 monoferric Encounter Details Date Type Department Care Team (Late st Contact Info) Description 02/23/2024 Telephone Hematology/Oncology, [address] [address] Sandra Evans MD [address] [place], [place] [id number] Precert Future (monoferric) Allergies Active Allergy Reactions [...] suspected opioid overdose. Seek immediate medical attention. [email or web address]/[email or web address]?v=[email or web address] Active Prochlorperazine Maleate 5 MG Oral Tablet [...] morning and 1 Tablet before bedtime. Active Zfxqhddhvj-AEMN-Rasoy ine 50-325-40 MG Oral Tablet (Fioricet) TAKE [...] encounter Miscellaneous Notes * Telephone Encounter - Hanna Gonzalez OSA - 02/23/2024 1:23 PM EDT Patient has been notified of the message. Patient has no further questions. * Telephone Encounter - Cassie Shelton RN - 02/23/2024 11:26 AM EDT Order received for monoferric, cannot be given at [facility]. Left message for patient letting her know this, advised that we will call to schedule once everything is set up. [place] plan built and routed for signautre. Waiting for auth. * Telephone Encounter - Hilda Cueva OSA - 02/23/2024 11:24 AM EDT Pt asked that her iron get done at [facility] Please advise documented in this encounter Plan of Treatment Upcoming Encounters Date Type Department Care Team (Late st Contact Info) Description 04/23/2024 11:20 AM EDT Office Visit Hepatology, [facility] [address] [place] [address] Hilda Calvert DO [address] [place] [address] 06/02/2024 9:00 AM EDT Office Visit Hepatology [facility] [address] [place] [address] Hilda Calvert DO [address] [place] [address] 06/08/2024 8:00 AM EDT Office Visit Hematology/Oncology [facility] [address] [place] [address] Sandra Evans MD [address] [facility] [place] [address] 08/03/2024 4:00 PM EST Office Visit Dermatology [facility] [address] [place] [address] Saran Knutson PA-C [address] [place] [address] Health Maintenance Due Date Last Done Comments [...] 5:16 PM 10/17/2007 5:01 PM Care Teams Compliance Reviewer Relationship Specialty Start Date End Date Endy Stanley DO [address] [address] [place] [address] PCP - General Family Medicine 07/13/18 documented as of this encounter
--- OUTSIDE RECORDS SUMMARY | 2024-03-16 03:48 | External Medical Summary | Summary of Care ---
Author Name Unknown Organization [facility] Address [address] [facility] [place] [address] Phone [phone] Care Team Providers Care Stitch Wheeler Name Role Phone Lizeth, Endy Mora DO Primary Care Provider [phone] [phone] Encounter Details Date Type Department Care Team (Late st Contact Info) Description 02/16/2024 Result Scan Unspecified Department <No scans attached> Allergies Active Allergy Reactions Criticality Noted Date Comments Codeine Hives 07/18/2012 Metformin Abdominal pain Low 03/30/2013 documented as of this encounter (statuses as of 02/17/2024) Medications Medication Sig Dispensed Refills Start Date [...] suspected opioid overdose. Seek immediate medical attention. [email or web address]://www.[email or web address]/[email or web address]?v=[email or web address] Active Prochlorperazine Maleate 5 MG Oral Tablet [...] morning and 1 Tablet before bedtime. Active Vamrfyjiss-MZLG-Uxahb ine 50-325-40 MG Oral Tablet (Fioricet) TAKE [...] as of this encounter (statuses as of 02/17/2024) Active Problems Problem Noted Date Diagnosed Date [...] as of this encounter (statuses as of 02/17/2024) Resolved Problems Problem Noted Date Diagnosed Date [...] as of this encounter (statuses as of 02/17/2024) Immunizations Name Administration Dates Next Due H1N1 [...] Description 02/19/2024 9:30 AM EDT Laboratory Laboratory, [address] [place] [address] [facility] [address] [place] [address] 02/23/2024 10:30 AM EDT Office Visit Hematology/Oncology [facility] [address] [facility] [place] [address] Sandra Evans MD [address] [facility] [address] 04/23/2024 11:20 AM EDT Office Visit Hepatology, [facility] [address] [place] [address] Hilda Calvert DO [address] [place] [address] 06/02/2024 9:00 AM EDT Office Visit Hepatology, [facility] [address] [place] [address] Hilda Calvert DO [address] [place] [address] 08/03/2024 4:00 PM EST Office Visit Dermatology [address], [place] [address] [place] [address] Saran Knutson PA-C [address] [place] [address] Health Maintenance Due Date Last Done Comments [...] Date/Time Associated Diagnosis Comments RADIOLOGY SCANNED RESULT 02/16/2024 documented in this encounter Results * RADIOLOGY SCANNED RESULT (02/16/2024) 02/16/2024 No Physician Data Unknown DIAGNOSTIC RAD IOLOGY SERVICES documented in this encounter Advance Directives * Full Code (Latest Code Status on File) Date Activated Date Inactivated Comments 10/15/2007 5:16 PM 10/17/2007 5:01 PM Care Teams Stitch Wheeler Relationship Specialty Start Date End Date Endy Stanley DO [address] [address] [place] [address] PCP - General Family Medicine 07/13/18 documented as of this encounter
--- OUTSIDE RECORDS SUMMARY | 2024-03-16 03:48 | External Medical Summary | Summary of Care ---
Author Name Unknown Organization [facility] Address [address] [facility] [place] [address] Phone [phone] Care Team Providers Care Drying Machine Operator Package Yarns Name Role Phone Endy Stanley DO Primary Care Provider [phone] Encounter Details Date Type Department Care Team (Late st Contact Info) Description 02/17/2024 Orders Only Gastroenterology, [facility] [address] [place] [address] Hilda Calvert DO [address] [place] [address] Allergies Active Allergy Reactions Criticality Noted Date [...] suspected opioid overdose. Seek immediate medical attention. [email or web address] Active Prochlorperazine Maleate 5 MG Oral Tablet [...] morning and 1 Tablet before bedtime. Active Rskkshtnxm-PUKK-Ftqfd ine 50-325-40 MG Oral Tablet (Fioricet) TAKE [...] Description 02/19/2024 9:30 AM EDT Laboratory Laboratory, [place] [address] [place] [address] [facility] [address] [place] [address] 02/23/2024 10:30 AM EDT Office Visit Hematology/Oncology [facility] [address] [facility] [place] [phone] Sandra Evans MD [address] [facility] [place] [address] 04/23/2024 11:20 AM EDT Office Visit Hepatology, [facility] [address] [place] [address] Hilda Calvert DO [address] [place] [id number] 06/02/2024 9:00 AM EDT Office Visit Hepatology [facility] [address] [place] [address] Enrike Hilda Loyola, DO [address] [place] [address] 08/03/2024 4:00 PM EST Office Visit Dermatology [facility] [address] [place] [phone] Saran Knutson PA-C [address] [place] [address] Health Maintenance Due Date Last Done Comments [...] 04/26, 12/19/2016, Additional history exists GFR 02/10/2025 02/16/2024, 01/23, 02/05/2024, Additional history exists Lipid [...] Priority Date/Time Associated Diagnosis Comments CHEMISTRY-OUTSIDE Routine 02/16/2024 documented in this encounter Results * (ABNORMAL) CHEMISTRY-OUTSIDE (02/16/2024) Not all results display below - see scan for full detail OUTSIDE LAB (SEE SCANNED REPORT) Comment:SCAN INCLUDES - CMP, ALK PHOS CREATININE-OUTSID E LAB 1.09 0.6 - 1.2 MG/DL OUTSIDE LAB (SEE SCANNED REPORT) EGFR-OUTSIDE LAB 62.1 ML/MIN OUT SIDE LAB (SEE SCANNED REPORT) POTASSIUM-OUTSIDE LAB 3.6 3.5 - 5.1 MMOL/L OUTSIDE LAB (SEE SCANNED REPORT) GLUCOSE-OUTSIDE LAB 171(A) 70 - 99 MG/DL OUTSIDE LAB (SEE [...] LAB OUTSIDE LAB (SEE SCANNED REPORT) HEMOGLOBIN, [id number] LAB OUTSIDE LAB (SEE SCANNED REPORT) PHOSPHORUS-OUTSID E LAB OUTSIDE LAB (SEE SCANNED REPORT) PTH-OUTSIDE LAB OUTS GRECIA LAB (SEE SCANNED REPORT) MICROALBUMIN RATIO-OUTSIDE LAB OUTSIDE LA B (SEE SCANNED REPORT) PROTEIN, UA-OUTSIDE LAB OUTSIDE LAB (SEE SCANNED REPORT) HGB OUTSIDE LA B (SEE SCANNED REPORT) 02/16/2024 Hilda Milla Enrike DO LABORATORY OUTSIDE LAB (SEE SCANNED REPORT) documented in this encounter Advance Directives * Full Code (Latest Code Status on File) Date Activated Date Inactivated Comments 10/15/2007 5:16 PM 10/17/2007 5:01 PM Care Teams Drying Machine Operator Package Yarns Relationship Specialty Start Date End Date Endy Stanley DO [address] [address] [place] [address] PCP - General Family Medicine 07/13/18 documented as of this encounter
[2024-03-16] MEDS: LEVOTHYROXINE SODIUM 25 MCG TABLET PO SCH (05:51)
[2024-03-16] MEDS: LEVOTHYROXINE SODIUM 150 MCG TABLET PO SCH (05:51)
[2024-03-16 07:14] LABS: Basophils # (auto) 0.03 K/uL (0.00-0.20); Basophils % (auto) 0.9 %; Eosinophils # (auto) 0.21 K/uL (0.00-0.50); Eosinophils % (auto) 6.2 %; Hematocrit (blood only) 27.5 % (37.0-47.0); Hemoglobin 8.4 g/dl (12.0-16.0); Immature Granulocytes # (auto) 0.01 K/uL (0.01-0.20); Immature Granulocytes % (auto) 0.3 %; Lymphocytes # (auto) 0.42 K/uL (1.20-3.40); Lymphocytes % (auto) 12.4 %; Mean Corpuscular Hemoglobin 28.1 pg (25.0-34.0); Mean Corpuscular Hgb Conc 30.5 g/dL (32.0-36.0); Mean Platelet Volume 10.9 fL (9.4-12.4); Monocytes # (auto) 0.38 K/uL (0.11-0.59); Monocytes % (auto) 11.2 %; Neutrophils # (auto) 2.34 K/uL (1.40-6.50); Platelet Count 50 K/uL (130-400); RDW Coefficient of Variation 24.3 % (11.5-14.5); RDW Standard Deviation 81.4 fL (36.4-46.3); Red Blood Count 2.99 M/uL (4.20-5.40); White Blood Count 3.39 K/ul (4.8-10.8)
[2024-03-16 07:28] LABS: BUN Creatinine Ratio 18.9 (10-20); Calcium 8.3 mg/dl (8.6-10.3); Creatinine Clr Calc Pharmacy 114.3 ml/min; Est GFR (Non-African American) 99.2 ml/min; Potassium 3.2 mmol/L (3.5-5.1)
[2024-03-16 07:42] LABS: Polychromasia 1+; Tear Drop Cells 1+
[2024-03-16] MEDS: VENLAFAXINE HCL XR 150 MG CAPXR PO SCH (08:15)
[2024-03-16] MEDS: VENLAFAXINE HCL XR 75 MG CAPXR PO SCH (08:15)
[2024-03-16] MEDS: SERTRALINE HCL 50 MG TABLET PO SCH (08:15)
[2024-03-16] MEDS: FAMOTIDINE 40 MG TABLET PO SCH (08:16)
[2024-03-16] MEDS: LINACLOTIDE 145 MCG CAPSULE PO SCH (08:16)
[2024-03-16] MEDS: MAGNESIUM OXIDE 400 MG TAB PO SCH (08:16)
[2024-03-16] MEDS: POTASSIUM CHLORIDE CRTAB 20 MEQ TABCR PO STA (08:28)
[2024-03-16] MEDS ORDERED: SERTRALINE HCL 50 MG TABLET PO SCH (09:00)
--- NOTE | 2024-03-16 09:05 | Electrocardiogram Report ---
Test Reason : Blood Pressure : / mmHG Vent. Rate : 081 BPM Atrial Rate : 081 BPM P-R Int : 148 ms QRS Dur : 092 ms QT Int : 492 ms P-R-T Axes : 059 012 044 degrees QTc Int : 571 ms Normal sinus rhythm Poor R wave progression, consider anterior SD vs. lead placement vs. LVH Prolonged QT Abnormal ECG When compared with ECG of 16-FEB-2024 19:52, Incomplete right bundle branch block no longer present Confirmed by Sin Wren ([id number]) on 03/16/2024 9:05:01 AM Referred By: REFERRED SELF Confirmed By:Sin Wren
--- NOTE | 2024-03-16 15:03 | Hospitalist Progress Note ---
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, admitted with acute on chronic hepatic encephalopathy Has improved in past 24h on increased lactulose, though remains in flare with slowed speech and delayed verbal responses. Unclear trigger. No missed meds. No GI bleeding. LVP AM of 03/15 but cell count / culture not sent. No obvious infection though that's always high on the list. Recently stopped metoclopramide and vistaril. Continues to have ambien and alprazolam on medlist, which are problematic and could exacerbate HE Continue Lactulose 30g PO QID, Rifaximin 550mg PO BID Empiric ceftriaxone 2g IV q24h, LVP with cell count/culture Hold ambien Hypokalemia related to increased stool losses - increase potassium po to 40 bid. AM CMP (2) 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: Plan: Continue Bumex and spironolactone (3) Prolonged QT interval: Plan: Hold PRN QTC prolonging medications, will defer to PCP to reduce her chronic QTc prolonging medications Plan VTE Prophylaxis - deferred chemical due to thrombocytopenia, SCDs Admission and Anticipated Discharge Date Admission Date: March 15, 2024 Subjective Niesha doing better today, can't remember all of yesterday but now oriented. Verbal responses remain slowed however. Having lots of stools - reports she was having minimal 3 stools a day [employer] an had not missed doses of lactulose or rifaximin. Recent course of bactrim/keflex for cellulitis completed 5ish days ago Had LVP yesterday AM, upper abdomen feels tight but no overt pain No cough, has been having wheezing when supine close to time of needing para recently Physical Exam 2 Physical Exam: PHYSICAL EXAMINATION Last 24h vital signs reviewed, see documentation in flowsheet General: comfortable appearing, no distress, sitting in chair HEENT: Normocephalic, atraumatic, pupils round and equal, sclerae anicteric, no conjunctival injection, moist mucus membranes Lungs: Normal respiratory effort. Clear to auscultation bilaterally. No RRW Heart: Regular rate and rhythm, no murmurs. No JVD Abdomen: Soft, distended with large ascites abdominal wall edema and gassy/tympanic in upper abdomen. Bowel sounds present. Extremities: Warm, dry, well-perfused. 1-2+ extremity edema. Ruddiness of both lower shins with cobblestoning, no warmth or drainage Neuro: Alert and oriented x 4, face symmetric, moves 4 extremities well, +tremor no margoth asterixis, verbal responses slowed and speech slightly slurred Psych: Normal affect and behavior Results & Data Results & Data Vital Signs (Past 12 Hours) Vital Signs Temp Pulse Resp BP Pulse Ox O2 Del Method 03/16/24 14:29 36.7 C 81 18 132/85 97 Room Air 03/16/24 07:55 36.6 C 79 18 133/77 97 Room Air Laboratory Results 03/16/24 06:36 03/16/24 06:36 PG Care Time/CCT Total # of Minutes Spent Total Time Spent with Patient: Total time spent is greater than 50% in coordination of care (as documented) at patient's floor/unit and/or counseling patient: Coding Level of Care Code 75555 SUB INP/OBS CARE 2/35MIN Diagnoses Hepatic encephalopathy K76.82 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
[2024-03-16] MEDS: cefTRIAXone SODIUM 2,000 MG/50 ML BAG IV SCH (15:42)
[2024-03-16] MEDS: traMADol HCL 50 MG TABLET PO PRN (15:55)
[2024-03-16] MEDS: POTASSIUM CHLORIDE CRTAB 20 MEQ TABCR PO SCH (20:31)
[2024-03-16] MEDS: SUMAtriptan succinate 50 MG TAB PO PRN (20:54)
[2024-03-17 09:17] LABS: Albumin Globulin Ratio 1.5 (0.9-2); Albumin Level 3.6 gm/dl (3.4-5.0); BUN Creatinine Ratio 21.3 (10-20); Calcium 8.6 mg/dl (8.6-10.3); Creatinine Clr Calc Pharmacy 112.8 ml/min; Est GFR (African American) 113.1 ml/min; Est GFR (Non-African American) 97.6 ml/min; Globulin 2.4 gm/dl (2.5-4.0); Potassium 3.7 mmol/L (3.5-5.1)
[2024-03-17] MEDS: BUMETANIDE 2 MG in SYRINGE 0 ML IV ONE (11:04)
--- NOTE | 2024-03-17 13:52 | Hospitalist Progress Note ---
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 Unclear trigger. No missed meds. No GI bleeding. LVP AM of 03/15 but cell count / culture not sent. No obvious infection though that's always high on the list. Recently stopped metoclopramide and vistaril. Not taking ambien. Reports infrequent alprazolam, max 1 per day. Continue Lactulose 30g PO QID, Rifaximin 550mg PO BID Empiric ceftriaxone 2g IV q24h, LVP with cell count/culture Hypokalemia related to increased stool losses - increased potassium po to 40 bid. potassium 3.7 this am, improved (2) 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: Plan: Complicated by refractory ascites/fluid overload requiring 2x weekly paracentesis and hepatic encephalopathy Continue Bumex and spironolactone -bilirubin is 1.0 today -AM CBC CMP and INR -bumex 2 mg IV today and increase oral bumex to home dose 3 mg bid (1 bid had been ordered on admission) (3) Prolonged QT interval: Plan: Hold PRN QTC prolonging medications, will defer to PCP to reduce her chronic QTc prolonging medications Plan VTE Prophylaxis - deferred chemical due to thrombocytopenia, cont SCDs and ambulation Admission and Anticipated Discharge Date Admission Date: March 15, 2024 Subjective Doing better with respect to encephalopathy - seems to be at baseline mental status Has gained fluid weight overnight, abdomen feels tight again Having adequate # of stools on lactulose No longer takes ambien - only took 1-2 doses and sleep eating etc Only takes 1 tab of xanax PRN and infrequently 1 or 2 a week Physical Exam 2 Physical Exam: PHYSICAL EXAMINATION Last 24h vital signs reviewed, see documentation in flowsheet General: looks better has been up and walking in room HEENT: Normocephalic, atraumatic, pupils round and equal, sclerae anicteric, no conjunctival injection, moist mucus membranes Lungs: Normal respiratory effort. Heart: Deferred Abdomen: Soft, distended with large ascites abdominal wall edema and less gassy/tympanic in upper abdomen. Bowel sounds present. Extremities: Warm, dry, well-perfused. 1-2+ extremity edema - same to slightly improved. Ruddiness (improved) of both lower shins with cobblestoning Neuro: Alert and oriented x 4, face symmetric, moves 4 extremities well, +tremor no margoth asterixis, verbal responses more prompt and speech no longer slurred Psych: Normal affect and behavior Results & Data Results & Data Laboratory Results 03/16/24 06:36 03/17/24 08:25 PG Care Time/CCT Total # of Minutes Spent Total Time Spent with Patient: Total time spent is greater than 50% in coordination of care (as documented) at patient's floor/unit and/or counseling patient: Coding Level of Care Code 80261 SUB INP/OBS CARE 3/50MIN Diagnoses Hepatic encephalopathy K76.82 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
[2024-03-17] MEDS: BUMETANIDE 1 MG TAB PO SCH (17:23)
[2024-03-17] MEDS: POTASSIUM CHLORIDE 10 MEQ TABCR PO SCH (20:54)
[2024-03-18 07:37] LABS: Hematocrit (blood only) 29.9 % (37.0-47.0); Mean Corpuscular Hemoglobin 27.8 pg (25.0-34.0); Mean Corpuscular Hgb Conc 30.1 g/dL (32.0-36.0); Mean Corpuscular Volume 92.3 fL (80.0-100.0); Mean Platelet Volume 11.1 fL (9.4-12.4); Platelet Count 55 K/uL (130-400); RDW Coefficient of Variation 23.9 % (11.5-14.5); RDW Standard Deviation 80.2 fL (36.4-46.3); Red Blood Count 3.24 M/uL (4.20-5.40); White Blood Count 3.68 K/ul (4.8-10.8)
[2024-03-18 07:56] LABS: Albumin Globulin Ratio 1.5 (0.9-2); Albumin Level 3.5 gm/dl (3.4-5.0); BUN Creatinine Ratio 20.9 (10-20); Bilirubin,Total 1.1 mg/dl (0.2-1.0); Calcium 8.3 mg/dl (8.6-10.3); Creatinine Clr Calc Pharmacy 126.2 ml/min; Est GFR (African American) 124.8 ml/min; Est GFR (Non-African American) 107.7 ml/min; Globulin 2.4 gm/dl (2.5-4.0); Potassium 3.5 mmol/L (3.5-5.1); Total Protein 5.9 gm/dl (6.0-8.3)
[2024-03-18 08:05] LABS: INR 1.3 (0.9-1.1); Prothrombin Time 13.4 Seconds (9.0-12.0)
[2024-03-18] MEDS: ALBUMIN 25% 25 GM/100 ML VIAL IV ONE (11:00)
--- NOTE | 2024-03-18 12:44 | Ultrasound Report ---
ULTRASOUND-GUIDED DIAGNOSTIC AND THERAPEUTIC PARACENTESIS: HISTORY: Ascites Procedure: The procedure and its risks, benefits and alternatives were discussed with the patient and written informed consent was obtained. Preliminary ultrasound of the abdomen was performed to determ ine a safe needle entry site. The right lower quadrant was prepped and draped in the usual sterile fashion. 1% Lidocaine was used f or local anesthesia. A paracentesis needle-sheath was inserted into the peritoneal space using ultras ound guidance. The needle was removed and the sheath was connected to tubing and a vacuum suction dev ice. A total of 2.1 liters of yellow ascites was aspirated. The sheath was removed and a sterile dres sing applied. The patient tolerated the procedure well and there were no immediate complications. IMPRESSION: Ultrasound-guided diagnostic and therapeutic paracentesis with aspiration of 2.1 liters of ascites. 1 L was sent to the laboratory at the request of the referring physician. ACT 112: Negative or not required by law. Electronically signed by: Forrest Byrne M.D. 03/18/2024 12:42 PM
[2024-03-18 13:46] LABS: Appearance Peritoneal Fluid Hazy; Color Peritoneal Fluid Yellow; RBC Peritoneal Fluid Auto 4000 /uL; WBC Peritoneal Fluid Auto 259 /ul (0-300)
[2024-03-18 13:52] LABS: Basophils, Fluid 1 %; Eosinophils, Fluid 1 %; Lymphocytes, Fluid 15 %; Mono,Macrophage,Mesothelial 76 %; Neutrophils, Fluid 7 %
[2024-03-18] MEDS: POLYETHYLENE (MIRALAX) 17 GM PACK PO SCH (16:44)
--- NOTE | 2024-03-18 16:56 | Hospitalist Progress Note ---
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 No missed meds. No GI bleeding. LVP AM of 03/15 but cell count / culture not sent. No abdominal tenderness, no obvious infection however redness of both shins did improve with diuresis and or antibiotics. Recently stopped metoclopramide and vistaril. Not taking ambien. Reports infrequent alprazolam, max 1 per day. improved on Lactulose 30g PO QID, Rifaximin 550mg PO BID treated with 72 hours of empiric ceftriaxone, paracentesis for 2 L completed on 03/18 and cell count is negative for SBP with only 14 PMNs, Gram stain with white cells but no organisms, ascitic culture pending at this point remains mildly encephalopathic above baseline, having significant abdominal distention I think this is gassiness related to lactulose. This is also a problem at home. Will experiment today tomorrow with changing from lactulose to MiraLAX. ordered 4 times daily at this point, assess response titrate to 3-5 stools a day Hypokalemia related to increased stool losses - increased potassium po to 40 bid. 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: Plan: Complicated by refractory ascites/fluid overload requiring 2x weekly paracentesis and hepatic encephalopathy, severe anasarca and frequent episodes of leg cellulitis Continue Bumex and spironolactone - on 03/18 bilirubin is 1.1 and INR is 1.3 creatinine remains normal at 0.67 -0.6 7 AM CMP -bumex 2 mg IV given on 03/17 for anasarca/leg edema - 25 g of albumin given prior to 2 L paracentesis on 03/18, next paracentesis is scheduled for next Friday typically needs this 2 times a week - today she had oozing of superficial blood and ascitic fluid from her paracentesis site I placed 2 interrupted sutures with good result, these will need to be removed in 1 week (3) Prolonged QT interval: Plan: chronic QTc prolonging medications (sertaline, venlafaxine, tramadol) - defer to outpatient providers, has been stably on these and benefits may outweigh arrhythmia risks avoid ondansetron and other QT prolonging meds Plan VTE Prophylaxis - deferred chemical due to thrombocytopenia, cont SCDs and ambulation Admission and Anticipated Discharge Date Admission Date: March 15, 2024 Subjective continues to have abdominal distention upper abdomen frequently painful and tight, having frequent stools on lactulose, remains slightly more encephalopathic than baseline the much improved compared to admission she frequently experiences a lot of abdominal distention at home as well which inhibits her breathing and causes upper abdominal/ anterior rib pain Physical Exam 2 Physical Exam: PHYSICAL EXAMINATION Last 24h vital signs reviewed, see documentation in flowsheet General: has been mobile and up walking around the unit HEENT: Normocephalic, atraumatic, pupils round and equal, sclerae anicteric, no conjunctival injection, moist mucus membranes Lungs: Normal respiratory effort. Heart: Deferred Abdomen: Soft, distended with large ascites abdominal wall edema and gassy/tympanic in upper abdomen. abdomen remained distended after 2 L paracentesis but somewhat improved. Abdomen is nontender. Paracentesis site and left lower quadrant with some mild/superficial bleeding/ oozing Bowel sounds present. Extremities: Warm, dry, well-perfused. 1-2+ extremity edema - definitely improved since yesterday. Ruddiness of anterior shins has resolved Neuro: Alert and oriented x 4, face symmetric, moves 4 extremities well, +tremor no margoht asterixis, verbal responses more prompt and speech no longer slurred Psych: Normal affect and behavior Results & Data Results & Data Vital Signs (Past 12 Hours) Vital Signs Temp Pulse Resp BP Pulse Ox O2 Del Method 03/18/24 15:05 36.7 C 81 16 113/66 99 Room Air 03/18/24 07:42 36.5 C 73 18 115/67 98 Room Air Laboratory Results 03/18/24 06:54 03/18/24 06:54 PG Care Time/CCT Total # of Minutes Spent Total Time Spent with Patient: I personally spent: 50 minutes today on clinical care activities including: reviewing chart notes and vital signs reviewing labs reviewing studies arranging paracentesis and suturing paracentesis site discussion with hospice care sales consultant, documentation for increased caregiver hours examining and counseling the patient 2 visits writing orders documentation Coding Level of Care Code 70623 SUB INP/OBS CARE 3/50MIN Diagnoses Hepatic encephalopathy K76.82 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
--- NOTE | 2024-03-18 17:01 | Communication Note ---
Date of Service: March 18, 2024 Niesha Gutiérrez 1980 will benefit from increased caregiver hours at home (5-7 additional hours beyond current allotment) because of the extreme com plexity of her chronic medical illness which impairs ambulation and her ability to carry out activities of daily living independently, chronic hepatic encephalopathy which increases her fall risk, and need for transportation to medical procedure twice weekly (paracentesis) as well as weekly blood draw and frequent doctor visits. Nicole Brown MD
[2024-03-19] MEDS: oxyCODONE HCL IR 5 MG TAB (IMMEDIATE RELEASE) PO STA (00:15)
[2024-03-19 08:50] LABS: Albumin Globulin Ratio 1.6 (0.9-2); Albumin Level 3.6 gm/dl (3.4-5.0); BUN Creatinine Ratio 20.5 (10-20); Calcium 8.2 mg/dl (8.6-10.3); Creatinine Clr Calc Pharmacy 101.9 ml/min; Est GFR (African American) 100.1 ml/min; Est GFR (Non-African American) 86.4 ml/min; Globulin 2.3 gm/dl (2.5-4.0); Potassium 3.9 mmol/L (3.5-5.1); Total Protein 5.9 gm/dl (6.0-8.3)
[2024-03-19] MEDS: POLYETHYLENE (MIRALAX) 17 GM PACK PO SCH (13:04)
--- NOTE | 2024-03-19 18:10 | Hospitalist Progress Note ---
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 No missed meds. No GI bleeding. LVP AM of 03/15 but cell count / culture not sent. No abdominal tenderness, no obvious infection however redness of both shins did improve with diuresis and or antibiotics. Recently stopped metoclopramide and vistaril. Not taking ambien. Reports infrequent alprazolam, max 1 per day. improved on Lactulose 30g PO QID, Rifaximin 550mg PO BID treated with 72 hours of empiric ceftriaxone, paracentesis for 2 L completed on 03/18 and cell count is negative for SBP with only 14 PMNs, Gram stain with white cells but no organisms, ascitic culture pending NGTD at this point remains mildly encephalopathic above baseline and slightly worse today compared to yesterday likely related to changing from lactulose to trial MiraLAX due to excessive gassiness - increase MiraLAX dose, monitor stool output and encephalopathy - continue rifaximin Hypokalemia related to increased stool losses - increased potassium po to 40 bid. 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 This may be useful for as needed dosing since she frequently gets inflamed lower extremity edema and requires antibiotics and/or IV diuretics -leave potassium supplement increased to 40 twice daily tonight and tomorrow morning anticipating increased output with metolazone - 25 g of albumin given prior to 2 L paracentesis on 03/18, next paracentesis is scheduled for next Friday typically needs this 2 times a week - I placed 2 interrupted sutures with good result, these will need to be removed in 1 week (3) Prolonged QT interval: Plan: chronic QTc prolonging medications (sertaline, venlafaxine, tramadol) - defer to outpatient providers, has been stably on these and benefits may outweigh arrhythmia risks avoid ondansetron and other QT prolonging meds Plan VTE Prophylaxis - deferred chemical due to thrombocytopenia, cont SCDs and ambulation Admission and Anticipated Discharge Date Admission Date: March 15, 2024 Subjective slightly more encephalopathic today with a little more slurring of her speech and increased latency of verbal responses plenty of stools yesterday a.m. after lactulose however no stools after evening dose of MiraLAX, or this morning's doses. Abdominal distention related to gassiness does seem to have improved leg edema improved and daily erythema much improved only slight leaking of ascites from paracentesis site Physical Exam 2 Physical Exam: PHYSICAL EXAMINATION Last 24h vital signs reviewed, see documentation in flowsheet General: awake and alert and has been walking on nursing unit HEENT: Normocephalic, atraumatic, pupils round and equal, sclerae anicteric, no conjunctival injection, moist mucus membranes Lungs: Normal respiratory effort. Heart: Deferred Abdomen: Soft, upper abdomen less distended and tympanic, moderate ascites and abdominal wall edema, nontender, left lower quadrant paracentesis site no bleeding or leaking 2 sutures are intact Extremities: Warm, dry, well-perfused. 2+ extremity edema continues slowly improving. Ruddiness of anterior shins has resolved Neuro: Alert and oriented x 4, face symmetric, walks well, +tremor increased a little no margoth asterixis, verbal responses with increased latency and mild slurring compared to yesterday Psych: Normal affect and behavior Results & Data Results & Data Vital Signs (Past 12 Hours) Vital Signs Temp Pulse Resp BP BP Pulse Ox O2 Del Method 03/19/24 14:10 36.6 C 81 16 143/78 H 96 Room Air 03/19/24 07:05 36.3 C L 77 18 111/74 98 Room Air Laboratory Results 03/18/24 06:54 03/19/24 07:14 reviewed: potassium is normal at 3.9, creatinine 0.8 bilirubin 1.0 albumin 3.6 INR was 1.3 yesterday PG Care Time/CCT Total # of Minutes Spent Total Time Spent with Patient: Total time spent is greater than 50% in coordination of care (as documented) at patient's floor/unit and/or counseling patient: Coding Level of Care Code 04172 SUB INP/OBS CARE 2MIN Diagnoses Hepatic encephalopathy K76.82 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
[2024-03-20] MEDS: metOLazone 2.5 MG TABLET PO ONE (07:36)
[2024-03-20] MEDS ORDERED: POLYETHYLENE (MIRALAX) 17 GM PACK PO PRN (12:26)
--- NOTE | 2024-03-20 13:50 | XRay Report ---
XR shoulder RT min 2V routine HISTORY: 43 years-old Female fall, right shoulder pain acute right shoulder pain status post fall COMPARISON: Chest radiograph 03/15/2024 TECHNIQUE: 3 views of the right shoulder FINDINGS: Subcentimeter rotator cuff calcific tendinosis. Cervical spinal fusion hardware. No acute fracture, d islocation or osseous erosion. IMPRESSION: No acute fracture or dislocation. ACT 112: Negative or not required by law. The above report was generated using voice recognition software. It may contain grammatical, syntax o r spelling errors. Electronically signed by: Lorenzo Ocampo M.D. 03/20/2024 1:48 PM
[2024-03-20] MEDS: oxyCODONE HCL IR 5 MG TAB (IMMEDIATE RELEASE) PO ONE (16:30)
--- NOTE | 2024-03-20 17:56 | Hospitalist Progress Note ---
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 No missed meds. No GI bleeding. LVP AM of 03/15 but cell count / culture not sent. No abdominal tenderness, no obvious infection however redness of both shins did improve with diuresis and or antibiotics. Recently stopped metoclopramide and vistaril. Not taking ambien. Reports infrequent alprazolam, max 1 per day. improved on Lactulose 30g PO QID, Rifaximin 550mg PO BID treated with 72 hours of empiric ceftriaxone, paracentesis for 2 L completed on 03/18 and cell count is negative for SBP with only 14 PMNs, Gram stain with white cells but no organisms -ascitic culture remains NGTD at this point remains mildly encephalopathic above baseline and slightly worse today compared to yesterday likely related to changing from lactulose to trial MiraLAX due to excessive gassiness having less gassy distention on miralax. - adjusted dose to 37 in AM and 17 midday, 17 daily PRN - continue rifaximin Hypokalemia related to increased stool losses - increased potassium po to 40 bid. 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 AM CMP. This may be useful for as needed dosing since she frequently gets inflamed lower extremity edema and requires antibiotics and/or IV diuretics -leave potassium supplement increased to 40 twice daily reassess in AM - 25 g of albumin given prior to 2 L paracentesis on 03/18, next paracentesis is scheduled for next Friday typically needs this 2 times a week - I placed 2 interrupted sutures with good result, these will need to be removed in 1 week (3) Prolonged QT interval: Plan: chronic QTc prolonging medications (sertaline, venlafaxine, tramadol) - defer to outpatient providers, has been stably on these and benefits may outweigh arrhythmia risks avoid ondansetron and other QT prolonging meds Plan Fall - states mechanical tripped over shoes. R shoulder pain - on exam TTP distal clavicle near anterior AC joint, tolerates PROM well, no deformity. pain with abduction against resistance -XRAYs obtained - calcific tendinosis of rotator cuff (subcentimeter) no fracture -suspect rotator cuff strain -continue tramadol, APAP prn, one time dose of oxycodone 5 mg VTE Prophylaxis - deferred chemical due to thrombocytopenia, cont SCDs and ambulation Probably home tomorrow Admission and Anticipated Discharge Date Admission Date: March 15, 2024 Subjective HE seems improved today, speech latency improved reports she had unwitnessed fall last night and right shoulder hurts. fell on outstretched arm to catch herself Having multiple watery BM this AM after 37g miralax dose Urinating frequently after metolazone/bumex this am Physical Exam Physical Exam: PHYSICAL EXAMINATION Last 24h vital signs reviewed, see documentation in flowsheet General: sitting on EOB awake/alert HEENT: Normocephalic, atraumatic, pupils round and equal, sclerae anicteric, no conjunctival injection, moist mucus membranes Lungs: Normal respiratory effort. Heart: Deferred Abdomen: Soft, not tympanic/gassy, moderate ascites and abdominal wall edema is improved, nontender, left lower quadrant paracentesis site no bleeding or leaking 2 sutures are intact - unchanged Extremities: Warm, dry, well-perfused. 2+ extremity edema unchanged. Ruddiness of anterior shins has resolved Neuro: Alert and oriented x 4, face symmetric, no R hand tremor today no asterixis, verbal responses with increased latency and mild slurring but improved Psych: Normal affect and behavior Results & Data Results & Data Vital Signs (Past 12 Hours) Vital Signs Temp Pulse Resp BP Pulse Ox O2 Del Method 03/20/24 15:05 36.7 C 85 16 116/77 98 Room Air 03/20/24 07:02 36.6 C 69 16 130/80 97 Room Air PG Care Time/CCT Total # of Minutes Spent Total Time Spent with Patient: Total time spent is greater than 50% in coordination of care (as documented) at patient's floor/unit and/or counseling patient: Coding Level of Care Code 93802 SUB INP/OBS CARE MIN Diagnoses Hepatic encephalopathy K76.82 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
[2024-03-20] MEDS: tiZANidine HCL 4 MG TABLET PO PRN (22:35)
[2024-03-21] MEDS: POLYETHYLENE (MIRALAX) 17 GM PACK PO SCH ×2 (08:04→11:59)
[2024-03-21 08:11] LABS: Albumin Globulin Ratio 1.4 (0.9-2); Albumin Level 3.5 gm/dl (3.4-5.0); BUN Creatinine Ratio 21.4 (10-20); Bilirubin,Total 1.4 mg/dl (0.2-1.0); Calcium 8.8 mg/dl (8.6-10.3); Creatinine Clr Calc Pharmacy 100.7 ml/min; Est GFR (African American) 98.7 ml/min; Est GFR (Non-African American) 85.1 ml/min; Globulin 2.5 gm/dl (2.5-4.0); Potassium 3.3 mmol/L (3.5-5.1)
--- NOTE | 2024-03-21 15:26 | Hospitalist Progress Note ---
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, admitted with acute on chronic hepatic encephalopathy Unclear trigger. No missed meds. No GI bleeding. LVP AM of 03/15 but cell count / culture not sent. No abdominal tenderness, no obvious infection however redness of both shins did improve with diuresis and or antibiotics. Recently stopped metoclopramide and vistaril. Not taking ambien. Reports infrequent alprazolam, max 1 per day. improved on Lactulose 30g PO QID, Rifaximin 550mg PO BID treated with 72 hours of empiric ceftriaxone, paracentesis for 2 L completed on 03/18 and cell count is negative for SBP with only 14 PMNs, Gram stain with white cells but no organisms -ascitic culture remains NGTD at this point remains encephalopathic above baseline having less gassy distention on miralax will recheck ammonia level in a.m., liver duplex to check for portal venous thrombosis. 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 2.5 mg metolazone on a.m. of 03/20 with good result. weekly and as needed dosing with increased potassium supplementation will probably be useful -leave potassium supplement increased to 40 twice daily, 3.3 today - a.m. CMP CBC ammonia INR - 25 g of albumin given prior to 2 L paracentesis on 03/18, next paracentesis is scheduled for next Friday typically needs this 2 times a week - I placed 2 interrupted sutures with good result, these will need to be removed in 1 week (3) Prolonged QT interval: Plan: chronic QTc prolonging medications (sertaline, venlafaxine, tramadol) - defer to outpatient providers, has been stably on these and benefits may outweigh arrhythmia risks avoid ondansetron and other QT prolonging meds Plan Fall - states mechanical tripped over shoes. R shoulder pain - on exam TTP distal clavicle near anterior AC joint, tolerates PROM well, no deformity. pain with abduction against resistance but strength is intact -XRAYs obtained - calcific tendinosis of rotator cuff (subcentimeter) no fracture -suspect rotator cuff strain - added diclofenac gel VTE Prophylaxis - deferred chemical due to thrombocytopenia, cont SCDs and ambulation Probably home tomorrow Admission and Anticipated Discharge Date Admission Date: March 15, 2024 Subjective had a lot of muscle cramping last night had neck and shoulders feel tense and sore right shoulder pain unchanged leg edema is improved still has hepatic encephalopathy symptoms worse than baseline including slowed thought process/fogginess is able to have a lot of BMs after 37 g of MiraLAX in the mornings gassiness and abdominal tightness significantly improved Physical Exam 2 Physical Exam: PHYSICAL EXAMINATION Last 24h vital signs reviewed, see documentation in flowsheet General: sitting on EOB awake/alert HEENT: Normocephalic, atraumatic, pupils round and equal, sclerae anicteric, no conjunctival injection, moist mucus membranes Lungs: Normal respiratory effort. Heart: Deferred Abdomen: Soft, not tympanic/gassy, moderate ascites and abdominal wall edema is resolved, nontender, +bt Extremities: Warm, dry, well-perfused. 2+ extremity edema improved. Ruddiness of anterior shins has resolved Neuro: Alert and oriented x 4, face symmetric, bilateral upper extremity tremor present, verbal responses with increased latency and slurring Psych: Normal affect and behavior Results & Data Results & Data Vital Signs (Past 12 Hours) Vital Signs Temp Pulse Resp BP Pulse Ox O2 Del Method 03/21/24 07:03 36.6 C 70 16 108/66 95 Room Air Laboratory Results 03/18/24 06:54 03/21/24 06:45 PG Care Time/CCT Total # of Minutes Spent Total Time Spent with Patient: Total time spent is greater than 50% in coordination of care (as documented) at patient's floor/unit and/or counseling patient: Coding Level of Care Code 41403 SUB INP/OBS CARE 2/35MIN Diagnoses Hepatic encephalopathy K76.82 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
[2024-03-21] MEDS: DICLOFENAC SOD 1% GEL 100 GM TUBE EXT PRN (16:51)
[2024-03-21] MEDS ORDERED: ONDANSETRON INJ 2 MG/ML 2 ML VIAL IV PRN (20:53)
[2024-03-21] MEDS ORDERED: ONDANSETRON 4 MG OD TAB PO PRN (22:32)
[2024-03-21] MEDS: PROMETHAZINE HCL 12.5 MG/10 ML UDP PO PRN (23:27)
--- NOTE | 2024-03-22 08:58 | Ultrasound Report ---
US duplex portal hepatic veins HISTORY: 43 years-old Female evaluate for portal venous thrombosis acute right upper quadrant abdomi nal pain COMPARISON: CT 02/16/2024 TECHNIQUE: Multiple real-time sonographic images of the hepatic vasculature were obtained assessing g rayscale appearance, color and spectral flow FINDINGS: The hepatic veins an imaged IVC are patent with normal-appearing waveforms. Hepatopedal flow noted wi thin the patent portal vein. Hepatic artery demonstrates normal low resistance waveforms. Cirrhosis w ith ascites redemonstrated. IMPRESSION: 1. Hepatopedal flow within the patent portal vein. 2. Cirrhosis with ascites redemonstrated. ACT 112: Negative or not required by law. The above report was generated using voice recognition software. It may contain grammatical, syntax o r spelling errors. Electronically signed by: Lorenzo Ocampo M.D. 03/22/2024 8:57 AM
[2024-03-22 09:50] LABS: Hematocrit (blood only) 31.6 % (37.0-47.0); Hemoglobin 10.1 g/dl (12.0-16.0); Mean Corpuscular Hemoglobin 28.1 pg (25.0-34.0); Mean Corpuscular Volume 87.8 fL (80.0-100.0); Platelet Count 60 K/uL (130-400); RDW Coefficient of Variation 22.5 % (11.5-14.5); RDW Standard Deviation 72.1 fL (36.4-46.3)
[2024-03-22 10:06] LABS: Albumin Globulin Ratio 1.5 (0.9-2); BUN Creatinine Ratio 21.3 (10-20); Bilirubin,Total 1.4 mg/dl (0.2-1.0); Calcium 9.6 mg/dl (8.6-10.3); Creatinine Clr Calc Pharmacy 105.7 ml/min; Est GFR (African American) 104.7 ml/min; Est GFR (Non-African American) 90.3 ml/min; Globulin 2.7 gm/dl (2.5-4.0); Potassium 3.3 mmol/L (3.5-5.1); Total Protein 6.7 gm/dl (6.0-8.3)
[2024-03-22 10:15] LABS: INR 1.2 (0.9-1.1); Prothrombin Time 13.1 Seconds (9.0-12.0)
[2024-03-22] MEDS: POTASSIUM CHLORIDE CRTAB 20 MEQ TABCR PO STA (11:40)
[2024-03-22] MEDS ORDERED: POTASSIUM CHLORIDE 10 MEQ TABCR PO STA (12:17)
[2024-03-22] MEDS: POTASSIUM CHLORIDE 10 MEQ TABCR PO STA (12:38)
--- NOTE | 2024-03-22 14:27 | Hospitalist Progress Note ---
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 lethargic with ammonia level of 130s in the ED Unclear trigger. No missed meds. No GI bleeding. LVP AM of 03/15 but cell count / culture not sent. No abdominal tenderness, no obvious infection. redness of both shins did improve with diuresis and or antibiotics. Recently stopped metoclopramide and vistaril. Not taking ambien. Reports infrequent alprazolam, max 1 per day. improved on Lactulose 30g PO QID, Rifaximin 550mg PO BID. changed lactulose to MiraLAX 03/19 because she was having painful gassy distention on lactulose and distention resolved treated with 72 hours of empiric ceftriaxone until paracentesis for 2 L completed on 03/18. cell count was negative for SBP with only 14 PMNs, Gram stain with white cells but no organisms -ascitic culture remains NGTD remains encephalopathic with some slowing of cognition which she notices though oriented x 4, some mildly increased speech latency and mild slurring. For what is worth ammonia still elevated at 103 today despite a week of aggressive laxative. I am concerned this may be her new baseline with respect to her hepatic encephalopathy. We discussed need to avoid any kind of sedating or neurotoxic medications. she does require antiemetics at home which could be problematic in the future. Zofran has been ineffective for her and is more risky because of her prolonged QTc. 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 of 03/20 with good result. PRN dosing with increased potassium supplementation will probably be useful now that her abdominal wall edema has resolved and anasarca has improved she notices the 3 mg p.o. Bumex produces a much better UOP. Suspect part of her diarrhea diuretic resistance is that she develops bowel wall edema and potentially nephrosarca which makes her oral diuretics relatively ineffective. weight is down from 110 kg to 102.6 kg this admission -CBC CMP INR done today, reviewed, notable for hypokalemia MELD-Na today is 10 I spoke with her [facility] digital content coordinator Opal today, gave update and left my phone number for her sales merchandise associate Dr. Bhatt. Will fax update. (3) Prolonged QT interval: Plan: chronic QTc prolonging medications (sertaline, venlafaxine, tramadol) - defer to outpatient providers, has been stably on these and benefits may outweigh arrhythmia risks avoid ondansetron and other QT prolonging meds Plan Fall - states mechanical tripped over shoes. R shoulder pain - on exam TTP distal clavicle near anterior AC joint, tolerates PROM well, no deformity. pain with abduction against resistance but strength is intact -XRAYs obtained - calcific tendinosis of rotator cuff (subcentimeter) no fracture -suspect rotator cuff strain - added diclofenac gel -improved VTE Prophylaxis - deferred chemical due to thrombocytopenia, cont SCDs and amb ulation Probably home tomorrow For future reference: transplant coord Opal [phone], fax [phone], physician med call line [phone] Admission and Anticipated Discharge Date Admission Date: March 15, 2024 Huong Cheatham doing okay today continues to have feeling of slowed cognition however she is oriented and can understand everything abdominal wall edema has resolved, much less gassy on the MiraLAX, leg edema has improved Physical Exam Physical Exam: PHYSICAL EXAMINATION Last 24h vital signs reviewed, see documentation in flowsheet General: sitting up in bed HEENT: Normocephalic, atraumatic, pupils round and equal, sclerae anicteric, no conjunctival injection, moist mucus membranes Lungs: Normal respiratory effort. Heart: regular hyperdynamic Abdomen: Soft, not tympanic/gassy, unclear whether any significant ascites and abdominal wall edema is resolved, nontender, bowel sounds are present Extremities: Warm, dry, well-perfused. 2+ extremity edema progressively improved. Ruddiness of anterior shins has resolved Neuro: Alert and oriented x 4, face symmetric, left greater than right bilateral upper extremity tremor present, no margoth asterixis, verbal responses with mildly increased latency and slurring Psych: Normal affect and behavior Results & Data Results & Data Vital Signs (Past 12 Hours) Vital Signs Temp Pulse Resp BP Pulse Ox O2 Del Method 03/22/24 07:45 Room Air 03/22/24 07:01 36.6 C 78 16 118/79 98 Room Air Laboratory Results 03/22/24 Range/Units 09:30 WBC 3.90 L (4.8-10.8) K/ul RBC 3.60 L (4.20-5.40) M/uL Hgb 10.1 L (12.0-16.0) g/dl Hct 31.6 L (37.0-47.0) % MCV 87.8 (80.0-100.0) fL MCH 28.1 (25.0-34.0) pg MCHC 32.0 (32.0-36.0) g/dL RDW Std Deviation 72.1 H (36.4-46.3) fL RDW Coeff of Hen[place] 22.5 H (11.5-14.5) % Plt Count 60 L (130-400) K/uL MPV 10.0 (9.4-12.4) fL PT 13.1 H (9.0-12.0) Seconds INR 1.2 H (0.9-1.1) Sodium 135 L (136-145) mmol/L Potassium 3.3 L (3.5-5.1) mmol/L Chloride 95 L (98-107) mmol/L Carbon Dioxide 36 H (21-32) mmol/L Anion Gap 4 (3-11) BUN 17 (6-23) mg/dl Creatinine 0.80 (0.6-1.2) mg/dl Est Cr Clr Drug Dosing 105.7 ml/min Est GFR ( Amer) 104.7 ml/min Est GFR (Non-Af Amer) 90.3 ml/min BUN/Creatinine Ratio 21.3 H (10-20) Glucose 169 H (70-99(Fasting)) mg/dl Calcium 9.6 (8.6-10.3) mg/dl Magnesium 2.0 (1.7-2.4) mg/dl Total Bilirubin 1.4 H (0.2-1.0) mg/dl AST 59 H (13-39) U/L ALT 29 (7-52) U/L Alkaline Phosphatase 77 (34-104) U/L Ammonia 103.0 H (18-72) umol/L Total Protein 6.7 (6.0-8.3) gm/dl Albumin 4.0 (3.4-5.0) gm/dl Globulin 2.7 (2.5-4.0) gm/dl Albumin/Globulin Ratio 1.5 (0.9-2) Diagnostic Findings Portal Vein US 03/22/24 08:00 US duplex portal hepatic veins HISTORY: 43 years-old Female evaluate for portal venous thrombosis acute right upper quadrant abdominal pain COMPARISON: CT 02/16/2024 TECHNIQUE: Multiple real-time sonographic images of the hepatic vasculature were obtained assessing grayscale appearance, color and spectral flow FINDINGS: The hepatic veins an imaged IVC are patent with normal-appearing waveforms. Hepatopedal flow noted within the patent portal vein. Hepatic artery demon strates normal low resistance waveforms. Cirrhosis with ascites redemonstrated. IMPRESSION: 1. Hepatopedal flow within the patent portal vein. 2. Cirrhosis with ascites redemonstrated. ACT 112: Negative or not required by law. The above report was generated using voice recognition software. It may contain grammatical, syntax or spelling errors. Electronically signed by: Lorenzo Ocampo M.D. 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
[2024-03-22] MEDS: ALPRAZolam 0.5 MG TABLET PO PRN (23:12)
[2024-03-23 10:12] LABS: BUN Creatinine Ratio 22.2 (10-20); Calcium 9.4 mg/dl (8.6-10.3); Creatinine Clr Calc Pharmacy 104.4 ml/min; Est GFR (African American) 103.1 ml/min; Potassium 3.8 mmol/L (3.5-5.1)
[2024-03-23 10:28] LABS: Thyroid Stimulating Hormone 1.976 uIu/ml (0.300-4.500)
[2024-03-23] MEDS: DICLOFENAC SOD 1% GEL 100 GM TUBE EXT ONE (10:58)
[2024-03-23] MEDS: traMADol HCL 50 MG TABLET PO PRN (10:58)
--- NOTE | 2024-03-23 12:47 | Hospitalist Progress Note ---
Date of Service March 23, 2024 Assessment & Plan (1) Hepatic encephalopathy: Plan: 2nd noncompliance with meds and/or diet?? that historically has been the issue improved on Lactulose 30g PO QID, Rifaximin 550mg PO BID. prior attending physician changed lactulose to MiraLAX 03/19 2nd to painful gassy distention on lactulose. distention now resolved. no evidence of SBP on last paracentesis 03/18. culture negative. no other infectious source. cut back miralax; add lactulose back again. ammonia today <100; repeat level am. some of her mild mental fogginess could be due to tramadol. 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 Bhatt Current sutures from prior paracentesis can be removed later this week (scheduled for next paracentesis) We canceled today's paracentesis due to u/s yesterday showing very little tappable fluid (3) Prolonged QT interval: Plan: chronic QTc prolonging medications (sertaline, venlafaxine, tramadol) - defer to outpatient providers, has been stably on these and benefits may outweigh arrhythmia risks (4) Right shoulder pain: Plan: 2nd to trauma from fall x-rays w/o fracture AC joint pain on exam cont voltaren gel - increase to 4gm q6h increase tramadol to 75mg prn ice Plan hopefully home tomorrow [facility] Liver real estate coordinator -- Opal [phone], fax [phone], physician med call line [phone] Admission and Anticipated Discharge Date Admission Date: March 15, 2024 Subjective patient's only complaint was that of ongoing mental fogginess she otherwise feels well reports 7-8+ stools today? small, loose, granular no abd pain bloating resolved eating well edema of legs improved Review of Systems Review of Systems: gen - no fevers cv - no chest pain pulm - no dyspnea or YAN GI - no N/V musculo - right shoulder pain Physical Exam Physical Exam: gen - NAD, sitting at side of bed comfortably, mild thought blocking occasionally mouth - MMM neck - no JVD heart - RRR, s1 s2, 1/6 EDUARDO LSB lungs - CTA b/l abd - soft, ND, NT, BS+; no HSM ext - <1+ edema, pulses 2+ b/l skin - venous stasis changes b/l shins; [address] left side of abdomen; no abdominal wall cellulitis neuro - no asterixis; mild tremor of left arm/hand musculo - right shoulder - tender AC joint; tender with cross-table adduction of shoulder; minimal tenderness subacromial bursa; no rotator cuff impingement signs Results & Data Results & Data Vital Signs (Past 12 Hours) Vital Signs Temp Pulse Resp BP Pulse Ox O2 Del Method 03/23/24 07:19 36.4 C L 77 16 120/76 96 Room Air Laboratory Results Laboratory Results - last 24 hr 03/23/24 03/23/24 03/23/24 09:37 16:54 21:07 Sodium 134 L Potassium 3.8 Chloride 99 Carbon Dioxide 31 Anion Gap 4 BUN 18 Creatinine 0.81 Est Cr Clr Drug Dosing 104.4 Est GFR ( Amer) 103.1 Est GFR (Non-Af Amer) 89.0 BUN/Creatinine Ratio 22.2 H Glucose 250 H POC Glucose 103 H 135 H Calcium 9.4 Ammonia 95.0 H TSH 1.976 PG Care Time/CCT Total # of Minutes Spent Total Time Spent with Patient: Total time spent is greater than 50% in coordination of care (as documented) at patient's floor/unit and/or counseling patient: Coding Level of Care Code 36030 SUB INP/OBS CARE 2/35MIN Diagnoses Hepatic encephalopathy K76.82 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
[2024-03-23] MEDS: LACTULOSE SYRUP 20 GM/30 ML UDC PO ONE (13:24)
[2024-03-23] MEDS: DICLOFENAC SOD 1% GEL 100 GM TUBE EXT SCH (13:25)
[2024-03-24 08:34] LABS: BUN Creatinine Ratio 22.7 (10-20); Calcium 8.3 mg/dl (8.6-10.3); Creatinine Clr Calc Pharmacy 112.8 ml/min; Est GFR (African American) 113.1 ml/min; Est GFR (Non-African American) 97.6 ml/min; Potassium 3.7 mmol/L (3.5-5.1)
[2024-03-24] MEDS: LACTULOSE SYRUP 30 GM/45 ML UDP PO SCH (10:59)
--- NOTE | 2024-03-24 21:44 | Hospitalist Progress Note ---
Date of Service March 24, 2024 Assessment & Plan (1) Hepatic encephalopathy: Plan: present on admission 2nd noncompliance with meds and/or diet?? that historically has been the issue had improved on Lactulose 30g PO QID, Rifaximin 550mg PO BID. lactulose then changed to MiraLAX on 03/19/24 2nd to painful gaseous distention on lactulose. distention resolved but clinically her encephalopathy worsened and ammonia levels constance again. no evidence of SBP on last paracentesis 03/18. culture negative. no other infectious source. ammonia level 115 today. hold miralax; change back to lactulose 30gm TID. re-eval tomorrow. 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 Bhatt Current sutures from prior paracentesis can be removed later this week (scheduled for next paracentesis) (3) Prolonged QT interval: Plan: chronic QTc prolonging medications (sertaline, venlafaxine, tramadol) - defer to outpatient providers, has been stably on these and benefits may outweigh arrhythmia risks (4) Right shoulder pain: Plan: 2nd to trauma from fall x-rays w/o fracture AC joint pain on exam cont voltaren gel q6h cont tramadol 75mg prn ice prn Plan hopefully home tomorrow if feeling well, ammonia levels are improved, etc [facility] Liver event promotions coordinator -- Opal [phone], fax [phone], physician med call line [phone] patient feels she needs 8-10 more hours of home services to have safe living environment and have enough help for day to day living will d/w social work Admission and Anticipated Discharge Date Admission Date: March 15, 2024 Subjective patient still feels altered/confused/tired/spacey her came to visit her and he reported she was not at baseline she denies feeling dizzy or lightheaded with walking she has had multiple stools today - loose/liquid eating well does feel a bit more bloated today Review of Systems Review of Systems: GI - no abd pain; no vomiting pulm - no dyspnea CV - no chest pain musculo - right shoulder feels better Physical Exam Physical Exam: gen - NAD, sitting at side of bed comfortably, mildly confused and slow with speech mouth - MMM neck - no JVD heart - RRR, s1 s2, 1/6 EDUARDO LSB lungs - CTA b/l abd - soft, ND, NT, BS+; no HSM ext - trace edema b/l, pulses 2+ b/l skin - venous stasis changes b/l shins; [address] left side of abdomen neuro - mild tremor of left arm/hand musculo - right shoulder - less tender at the AC joint Results & Data Results & Data Vital Signs (Past 12 Hours) Vital Signs Temp Pulse Resp BP Pulse Ox O2 Del Method 03/24/24 19:25 36.7 C 81 16 124/75 99 Room Air 03/24/24 16:00 Room Air 03/24/24 15:36 36.6 C 79 18 108/65 96 Room Air Laboratory Results Laboratory Results - last 24 hr 03/24/24 03/24/24 03/24/24 06:25 07:25 07:49 Sodium 135 L Potassium 3.7 Chloride 99 Carbon Dioxide 32 Anion Gap 4 BUN 17 Creatinine 0.75 Est Cr Clr Drug Dosing 112.8 Est GFR ( Amer) 113.1 Est GFR (Non-Af Amer) 97.6 BUN/Creatinine Ratio 22.7 H Glucose 200 H POC Glucose 113 H 204 H Calcium 8.3 L Ammonia 115.0 H 03/24/24 03/24/24 03/24/24 11:20 16:33 20:34 Sodium Potassium Chloride Carbon Dioxide Anion Gap BUN Creatinine Est Cr Clr Drug Dosing Est GFR ( Amer) Est GFR (Non-Af Amer) BUN/Creatinine Ratio Glucose POC Glucose 138 H 136 H 118 H Calcium Ammonia PG Care Time/CCT Total # of Minutes Spent Total Time Spent with Patient: Total time spent is greater than 50% in coordination of care (as documented) at patient's floor/unit and/or counseling patient: Coding Level of Care Code 59682 SUB INP/OBS CARE 2/35MIN Diagnoses Hepatic encephalopathy K76.82 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
[2024-03-25 07:23] LABS: BUN Creatinine Ratio 21.6 (10-20); Calcium 8.8 mg/dl (8.6-10.3); Creatinine Clr Calc Pharmacy 114.3 ml/min; Est GFR (Non-African American) 99.2 ml/min; Potassium 3.9 mmol/L (3.5-5.1)
--- NOTE | 2024-03-25 13:21 | Hospitalist Progress Note ---
Date of Service March 25, 2024 Assessment & Plan (1) Fall: Plan: accidental no syncope or presyncope no dizziness or lightheadedness no cardiopulmonary symptoms prior to the fall fortunately no injuries or head strike (2) Hepatic encephalopathy: Plan: present on admission 2nd noncompliance with meds and/or diet?? that historically has been the issue had improved on Lactulose 30g PO QID, Rifaximin 550mg PO BID. lactulose then changed to MiraLAX on 03/19/24 2nd to painful gaseous distention on lactulose. distention resolved but clinically her encephalopathy worsened and ammonia level s constance again. no evidence of SBP on last paracentesis 03/18. culture negative. no other infectious source. changed back to lactulose 30gm TID on 03/24/24. clinically improved today. cont lactulose same dosing. ammonia level am. 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 Bhatt Current sutures from prior paracentesis can be removed tomorrow in radiology (she is scheduled for next paracentesis on 03/26 with Cole RAMIREZ from IR) (4) Prolonged QT interval: Plan: chronic QTc prolonging medications (sertaline, venlafaxine, tramadol) - stable (5) Right shoulder pain: Plan: 2nd to trauma from preadmission fall x-rays w/o fracture AC joint pain on exam cont voltaren gel q6h cont tramadol 75mg prn ice prn Plan hopefully home tomorrow after her routine paracentesis [facility] Liver compensation coordinator -- Opal [phone], fax [phone], physician med call line [phone] patient feels she needs 8-10 more hours of home services to have safe living environment and have enough help for day to day living will need letter stating this updated her Augie by phone this evening Admission and Anticipated Discharge Date Admission Date: March 15, 2024 Subjective patient had a fall this am was walking in hallway with a staff member was wearing Crocs from home the Crocs stick firmly to the floor she lost her footing and fell to the floor she did not hit her head she had no loss of consciousness she did not injure any part of her body denies any pain from the fall did not feel dizzy or lightheaded prior to the fall reports her overall mentation is improved today does have worsening tremor in her left arm - more so than baseline Review of Systems Review of Systems: gen - feels well cv - no chest pain pulm - no dyspnea or YAN GI - no abd pain; having numerous stools Physical Exam Physical Exam: gen - NAD, sitting at side of bed comfortably, speech fluent/clear; vert awake/alert/oriented x 3; looks good today head - no signs of trauma mouth - MMM neck - no JVD; no tenderness over c-spine segments heart - RRR, s1 s2, 1/6 EDUARDO LSB lungs - CTA b/l abd - soft, ND, NT, BS+; no HSM; mild ascites present; umbilical hernia present - reducible ext - trace edema b/l, pulses 2+ b/l skin - venous stasis changes b/l shins neuro - moderate tremor of left arm/hand - worse than previous ; no asterixis musculo - right shoulder - ROM improved in comparison to prior exams; b/l hips - no pain with passive ROM; b/l elbows, hands, wrists, knees, ankles, feet - free of any obvious injury/swelling/bruising Results & Data Results & Data Vital Signs (Past 12 Hours) Vital Signs Temp Pulse Resp BP BP Pulse Ox O2 Del Method 03/25/24 10:45 87 16 121/80 98 Room Air 03/25/24 08:27 36.8 C 76 18 123/83 98 Room Air Laboratory Results Laboratory Results - last 24 hr 03/24/24 03/24/24 03/25/24 16:33 20:34 05:19 Sodium 137 Potassium 3.9 Chloride 101 Carbon Dioxide 33 H Anion Gap 3 BUN 16 Creatinine 0.74 Est Cr Clr Drug Dosing 114.3 Est GFR ( Amer) 115.0 Est GFR (Non-Af Amer) 99.2 BUN/Creatinine Ratio 21.6 H Glucose 101 H POC Glucose 136 H 118 H Calcium 8.8 03/25/24 03/25/24 08:18 11:30 Sodium Potassium Chloride Carbon Dioxide Anion Gap BUN Creatinine Est Cr Clr Drug Dosing Est GFR ( Amer) Est GFR (Non-Af Amer) BUN/Creatinine Ratio Glucose POC Glucose 152 H 136 H Calcium PG Care Time/CCT Total # of Minutes Spent Total Time Spent with Patient: Total time spent is greater than 50% in coordination of care (as documented) at patient's floor/unit and/or counseling patient: Coding Level of Care Code 86473 SUB INP/OBS CARE 2/35MIN Diagnoses Fall W19.XXXA Hepatic encephalopathy K76.82 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
[2024-03-25] MEDS: PROMETHAZINE HCL 25 MG TAB PO PRN (15:02)
[2024-03-26 07:34] VITALS: BP 125/81; RESP 16; TEMP 98.2; O2SAT 98
[2024-03-26 08:12] LABS: BUN Creatinine Ratio 18.5 (10-20); Calcium 8.4 mg/dl (8.6-10.3); Creatinine Clr Calc Pharmacy 104.4 ml/min; Est GFR (African American) 103.1 ml/min; Magnesium 1.9 mg/dl (1.7-2.4); Potassium 3.5 mmol/L (3.5-5.1)
--- NOTE | 2024-03-26 12:21 | Discharge Summary ---
Discharge Summary Date of Service March 26, 2024 Principal Dx & Hospital Course #1 = Principal Diagnosis (1) Fall: accidental no syncope or presyncope no dizziness or lightheadedness no cardiopulmonary symptoms prior to the fall fortunately no injuries or head strike (2) Hepatic encephalopathy: present on admission 2nd noncompliance with meds and/or diet?? that historically has been the issue had improved on Lactulose 30g PO QID, Rifaximin 550mg PO BID. lactulose then changed to MiraLAX on 03/19/24 2nd to painful gaseous distention on lactulose. distention resolved but clinically her encephalopathy worsened and ammonia levels constance again. no evidence of SBP on last paracentesis 03/18. culture negative. no other infectious source. changed back to lactulose 30gm TID on 03/24/24. clinically improved today. cont lactulose same dosing. ammonia level am. 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 Bhatt Current sutures from prior paracentesis can be removed tomorrow in radiology (she is scheduled for next paracentesis on 03/26 with Cole RAMIREZ from IR) (4) Prolonged QT interval: chronic QTc prolonging medications (sertaline, venlafaxine, tramadol) - stable (5) Right shoulder pain: 2nd to trauma from preadmission fall x-rays w/o fracture AC joint pain on exam cont voltaren gel q6h cont tramadol 75mg prn ice prn Plan hopefully home tomorrow after her routine paracentesis [facility] Liver marketing technology coordinator -- Opal [phone], fax [phone], physician med call line [phone] patient feels she needs 8-10 more hours of home services to have safe living environment and have enough help for day to day living will need letter stating this updated her Augie by phone this evening Admission HPI Per Admitting Provider Niesha Gutiérrez is a 43 year old female with GILLESPIE cirrhosis and repeated admissions for hepatic encephalopathy and paracentesis who presents to the ER with altered mental state. She reports slowly increasing confusion over the last month. She already feels improved since coming into the emergency room but cannot remember coming over here. She underwent paracentesis earlier today with 3.9L of ascitic fluid removed and discarded. She reports having 3 BM/day and has been taking her lactulose three times a day as prescribed. No fever, chills, respiratory, gastrointestinal or urinary infection symptoms. She is orientated to person and place but not time which is unlike her baseline. She is also speaker slower than normal. Discharge Exam gen - NAD, sitting at side of bed comfortably, speech fluent/clear; vert awake/alert/oriented x 3; looks good today head - no signs of trauma mouth - MMM neck - no JVD; no tenderness over c-spine segments heart - RRR, s1 s2, 1/6 EDUARDO LSB lungs - CTA b/l abd - soft, ND, NT, BS+; no HSM; mild ascites present; umbilical hernia present - reducible ext - trace edema b/l, pulses 2+ b/l skin - venous stasis changes b/l shins neuro - moderate tremor of left arm/hand - worse than previous ; no asterixis musculo - right shoulder - ROM improved in comparison to prior exams; b/l hips - no pain with passive ROM; b/l elbows, hands, wrists, knees, ankles, feet - free of any obvious injury/swelling/bruising Updated Medication List Medication Instructions Recorded Confirmed Type calcium carbonate 500 1 tab PO TIDM ##0 02/14/23 03/15/24 History mg-simethicone 20 mg chewable tablet valacyclovir 500 mg tablet 500 mg PO Q8 PRN .BREAKOUTS 02/14/23 03/15/24 History ondansetron 8 mg disintegrating 8 mg translingual Q8 PRN Nausea 06/05/23 03/15/24 History tablet ipratropium 20 mcg-albuterol 100 1 puff inhalation QID PRN 06/23/23 03/15/24 Rx mcg/actuation mist for inhalation cough/wheeze/shortness of breath (Combivent Respimat) #1 inhaler triamcinolone acetonide 0.1 % 1 applic EXT TID PRN dry, itchy 06/23/23 03/15/24 Rx topical cream skin on legs/abdominal wall #15 grams nviheyrtik-igeolpinccikm-pudulglp 2 tab PO Q6 PRN Pain 07/21/23 03/15/24 History 50 mg-325 mg-40 mg tablet clobetasol 0.05 % scalp solution 1 applic topical BID PRN for scalp 07/21/23 03/15/24 History famotidine 40 mg tablet 40 mg PO QAM 07/21/23 03/15/24 History hydroxyzine HCl 10 mg tablet 10 mg PO TID PRN Itching 07/21/23 03/15/24 History omeprazole 40 mg capsule,delayed 40 mg PO BID 07/21/23 03/15/24 History release potassium chloride 10 mEq 20 meq PO BID 07/21/23 03/15/24 History tablet,extended release prochlorperazine maleate 5 mg 5 mg PO QID PRN Nausea 07/21/23 03/15/24 History tablet (Compazine) promethazine 25 mg rectal 25 mg MN UD PRN Nausea 07/21/23 03/15/24 History suppository (Promethegan) venlafaxine 150 mg 150 mg PO DAILY #30 caps 08/15/23 03/15/24 Rx capsule,extended release 24 hr (Effexor XR) venlafaxine 75 mg capsule,extended 75 mg PO DAILY #30 caps 08/15/23 03/15/24 Rx release 24 hr (Effexor XR) alprazolam 1 mg tablet 1 mg PO BID PRN Anxiety 10/06/23 03/15/24 History linaclotide 290 mcg capsule 290 mcg PO DAILY 10/06/23 03/15/24 History (Linzess) spironolactone 100 mg tablet 100 mg PO BID 10/06/23 03/15/24 History tizanidine 4 mg tablet 2 mg PO Q6H PRN muscle spasms 10/06/23 03/15/24 History cholecalciferol (vitamin D3) 125 125 mcg PO QAM #1 tab 10/10/23 03/15/24 Rx mcg (5,000 unit) tablet lactulose 10 gram/15 mL (15 mL) 30 g (45 mL) PO TID #1,440 mL 10/10/23 03/15/24 Rx oral solution magnesium oxide 400 mg PO DAILY #30 tabs 10/10/23 03/15/24 Rx rifaximin 550 mg tablet (Xifaxan) 550 mg PO BID #1 tab 10/10/23 03/15/24 Rx sumatriptan succinate 50 mg tablet 50 mg PO UD PRN Migraine Headache 10/29/23 03/15/24 History ubrogepant 50 mg tablet (Ubrelvy) 50 mg PO .COMPLEX PRN headache #10 12/18/23 03/15/24 Rx tabs bumetanide 1 mg tablet 1 mg PO BID 02/06/24 03/15/24 History pramipexole 0.5 mg tablet 0.5 mg PO TID 02/06/24 03/15/24 History levothyroxine 300 mcg tablet 300 mcg PO DAILYBB 02/17/24 03/15/24 History metoclopramide HCl 10 mg tablet 10 mg PO QID PRN Nausea 02/17/24 03/15/24 History (Reglan) sertraline 100 mg tablet 150 mg PO DAILY 02/17/24 03/15/24 History sertraline 50 mg tablet 50 mg PO DAILY 02/17/24 03/15/24 History tramadol 50 mg tablet 50 mg PO Q6H PRN Pain 02/17/24 03/15/24 History zolpidem 10 mg tablet 10 mg PO HS PRN Sleep 02/17/24 03/15/24 History levothyroxine 25 mcg tablet 25 mcg PO DAILYBB 03/15/24 03/15/24 History diclofenac sodium 1 % topical gel 4 g EXT QID PRN right shoulder 03/26/24 Rx (Voltaren Arthritis Pain) pain #1 tube Hospital Stay Data Consultations 03/15/24 15:03 ED Decision to Admit Stat Diagnostic Imagining Performed 03/15/24 13:07 CT head/brain wo con Stat 03/18/24 08:02 IR paracentesis abd w/img US Routine 03/22/24 08:00 US duplex portal hepatic veins Routine 03/26/24 09:00 US abdomen ltd ascites Routine Pending Results Patient Have Any Pending Studies at Discharge: Yes Discharge Instructions Given to Patient (Per Discharging Provider) Niesha, You were hospitalized due to hepatic encephalopathy which is when your ammonia levels rise and you become sleepy, confused, and even lethargic. Your ammonia levels returned to normal with lactulose, rifaximin, and time. Your ammonia level today is in the 50s. We did not find any infections while you were here. On 03/25/24 you had a fall while walking but fortunately you did not suffer any new injury. The fall you had had at home, however, caused a contusion (bruise) to the right shoulder but fortunately no broken bones/fracture. When you see neurology later this month please talk to Dr Nixon about the possibility of taking low-dose "primidone" for your left arm tremor. Finally, when you return to [facility] on 03/30/24 for your regularly scheduled paracentesis, please have repeat blood work to check your electrolytes and kidney function. I have placed lab orders for you. Recommendations - 1. for right shoulder pain - * ice - 20-30 minutes on, 3-4 times/day as needed * ynkl-mik-wsxzait diclofenac gel - 4 grams to right shoulder up to 4 times/day 2. diuretics - * bumetanide - 3mg every morning and 3mg every afternoon * spironolactone - 100mg twice daily as previous 3. if possible please lower your alprazolam dose to 0.5mg (rather than taking a full 1mg dose) Follow-up - keep any regularly scheduled appointments with [facility] Transplant Team; keep your appointment with Mr Greene from radiology for 03/30/24 Return to [facility] if - * you have fever over 100 degrees * you have worsening abdominal pain * you have a severe headache not responding to your headache medicines * you have shortness of breath * you feel confused, etc. * any other concerns It was our pleasure to care for you! 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
--- NOTE | 2024-03-26 12:41 | Ultrasound Report ---
US abdomen ltd ascites CLINICAL HISTORY: cirrhosis, ascites COMPARISON STUDY: None. FINDINGS: Real-time sonographic imaging of the abdomen was performed with sales representative church furniture images submi tted. The study was performed for preoperative planning of a paracentesis. Only trace ascites was kandi ntified. Therefore, the paracentesis was not performed. IMPRESSION: Trace ascites. Therefore, a paracentesis was not performed ACT 112: Negative or not required by law. Electronically signed by: Forrest Byrne M.D. 03/26/2024 12:40 PM
[2024-03-26 13:15] VITALS: PULSE 86
== END 2024-03-26 14:28 | disposition home health service (06) | DRG 442 ==
LOC: ED 12:30 → 3N 15:24 → SUATTDRO 15:24 → 3N 16:22
DX: K74.60 Unspecified cirrhosis of liver; R18.8 Other ascites; Z79.890 Hormone replacement therapy; K75.81 Nonalcoholic steatohepatitis (NASH); M25.511 Pain in right shoulder; Z88.5 Allergy status to narcotic agent; E87.6 Hypokalemia; K76.82 Hepatic encephalopathy; R41.82 Altered mental status, unspecified; D64.9 Anemia, unspecified; Y92.89 Other specified places as the place of occurrence of the external cause; W19.XXXA Unspecified fall, initial encounter; E03.9 Hypothyroidism, unspecified; E72.20 Disorder of urea cycle metabolism, unspecified

== ENCOUNTER 2024-05-02 15:33 | Inpatient (IN) ==
--- OUTSIDE RECORDS SUMMARY | 2024-05-02 15:40 | External Medical Summary | Summary of Care ---
Author Name Unknown Organization [facility] Address [address] [place] [address] Phone [phone] Care Team Providers Care Atmospheric Physicist Name Role Phone Endy Stanley DO Primary Care Provider [phone] Reason for Visit * Reason Onset Date Comments Scheduling 04/23/2024 Encounter Details Date Type Department Care Team (Late st Contact Info) Description 04/23/2024 Telephone Gastroenterology, [facility] [address] [place] [address] Hilda Calvert DO [address] [place] [address] Scheduling Allergies Active Allergy Reactions Criticality Noted Date Comments Codeine Hives 07/18/2012 Metformin Abdominal pain Low 03/30/2013 documented as of this encounter (statuses as of 04/23/2024) Medications Medication Sig Dispensed Refills Start Date [...] overdose. Seek immediate medical attention. [email or web address] Active Prochlorperazine Maleate 5 MG Oral Tablet [...] morning and 1 Tablet before bedtime. Active Stheknpqmd-UHII-Fqrsb ine 50-325-40 MG Oral Tablet (Fioricet) TAKE [...] BEFORE BEDTIME 180 Tablet 1 10/28/2023 Active Venlafaxine HCl 75 MG Oral Tablet [...] BEFORE BEDTIME 180 Tablet 1 02/18/2024 Active Additional Information Patient taking differently: Pt states she is taking 3mg in the am and 3mg in the PM, Reported on 04/23/2024 Pramipexole Dihydrochloride 0.5 MG Oral Tablet Take 1 Tablet by mouth in the morning and 1 Tablet at noon and 1 Tablet before bedtime. Active Clobetasol Propionate 0.05 % External Solution apply to the scalp 1-2 times daily as needed 50 mL 2 03/16/2024 Active Ozempic (0.25 or 0.5 MG/DOSE) 2 MG/1.5ML Solution Pen-injector (Semaglutide(0.25 or 0.5MG/DOS)) Inject under the skin once a week. Active Potassium Chloride 10 MEQ Oral Packet Take 2 mEq by mouth in the morning and 2 mEq before bedtime. Pt states she is currently taking 40 meq twice daily. Active documented as of this encounter (statuses as of 04/23/2024) Active Problems Problem Noted Date Diagnosed Date RLS (restless legs syndrome) 04/21/2024 Recurrent major depressive disorder, in partial remission [...] as of this encounter (statuses as of 04/23/2024) Resolved Problems Problem Noted Date Diagnosed Date [...] as of this encounter (statuses as of 04/23/2024) Immunizations Name Administration Dates Next Due COVID-19, MRNA-LNP, 23-24, P F, 50 MCG/0.5 mL, 12 YRS AND ABOVE, IM (MODERNA-Spikevax) 11/05/2023 H1N1 2009 Influenza, IM 06/28/2009 Seasonal Influenza, Trivalen t, (IIV3), with Preserv, (Fluzone) 05/09/2023,05/25/2016,06/08/2015, 0 12,05/10/2009 TDAP, Age 7 and [...] encounter Miscellaneous Notes * Telephone Encounter - Krystal Varela OSA - 04/23/2024 12:08 PM EDT Called patient to schedule Paracentesis . No answer. Left message for patient to return call. documented in this encounter Plan of Treatment Upcoming Encounters Date Type Department Care Team ([facility] st Contact Info) Description 06/02/2024 9:00 AM EDT Office Visit Hepatology, [facility] [address] [place] [address] Hilda Calvert DO [address] [place] [address] 06/08/2024 8:00 AM EDT Office Visit Hematology/Oncology [facility] [address] [facility] [place] [phone] Sandra Evans MD [address] [place] [address] 08/03/2024 4:00 PM EST Office Visit Dermatology [facility] [address] [place] [id number] Saran Knutson PA-C [address] [place] [address] Health Maintenance Due Date Last Done Comments Diabetic Eye Exam 1998 Hepatitis B Vaccine (1 of 3 - 19+ 3-dose series) 12/09/1999 HPV/Co-Test 2010 Cervical Cancer Screening 09/08/2011 Pap Smear 09/08/2011 09/08/2008, 07/25, 01/13/2006, Additional history exists Albumin/Creatinine Ratio 11/25/2015 11/24/2014, 02/2013 Depression Monitoring 10/15/2017 10/15/2016 Diabetic Foot Exam 05/14/2018 05/14/2017, 0 11/15/2015, 12/23/2014 DTap/Tdap Vaccines (2 - Td or Tdap) 05/18/2019 05/18/2009 B-12 08/19/2019 08/19/2018 Mammogram 2020 HbA1c 03/01/2024 09/01/2023, 12/23, 01/23/2022, Additional history exists Influenza Vaccine (FLU shot) (#1) 2024 05/21/2023, 05/09/2023, 07/04/2020, Additional history exists TSH 09/01/2024 09/01/2023, 04/26, 12/19/2016, Additional history exists GFR 04/16/2025 04/16/2024, 03/25, 03/09/2024, Additional history exists Lipid Panel 10/23/2028 10/24/2023, [...] 5:16 PM 10/17/2007 5:01 PM Care Teams Atmospheric Physicist Relationship Specialty Start Date End Date Endy Stanley DO PCP - General Family Medicine 07/13/18 documented as of this encounter
--- OUTSIDE RECORDS SUMMARY | 2024-05-02 15:40 | External Medical Summary | Summary of Care ---
Author Name Unknown Organization [facility] Address [address] [place] [address] Phone [phone] Care Team Providers Care Insurance Customer Service Specialist Name Role Phone Endy Stanley DO Primary Care Provider [phone] Reason for Visit * Reason Onset Date Comments Advice 04/15/2024 Encounter Details Date Type Department Care Team (Late st Contact Info) Description 04/15/2024 Telephone Hepatology, [facility] [address] [place] [address] Services, Scheduling [address] [place] [address] Advice Allergies Active Allergy Reactions Criticality Noted [...] suspected opioid overdose. Seek immediate medical attention. [email or web address] Active Prochlorperazine Maleate 5 MG Oral Tablet [...] morning and 1 Tablet before bedtime. Active Bmupjpwwli-UKUU-Xvdqp ine 50-325-40 MG Oral Tablet (Fioricet) TAKE [...] as needed 50 mL 2 03/16/2024 Active documented as of this encounter (statuses [...] (MODERNA-Spikevax) 11/05/2023 H1N1 2009 Influenza, IM 06/28/2009 PPD 07/13/2001 Seasonal Influenza, Triv[place] t, (IIV3), with Preserv, [...] Telephone Encounter - Keira Goldman CMA - 04/23/2024 9:06 AM EDT Pt has appt with today. * Telephone Encounter - Mamie Stevenson OSA - 04/16/2024 12:09 PM EDT Patient called checking status of message from earlier. I let patient know that ED notes were requested, and reminded of 24-48 hours turnaround time. * Telephone Encounter - Adina Andre LPN - 04/15/2024 3:01 PM EDT Phone call placed to [facility]. They will fax recent ED visit. * Telephone Encounter - Adina Andre LPN - 04/15/2024 2:00 PM EDT Spoke with Niesha. She states that she was admitted to [facility] for 2 weeks and was released 2 weeks ago. During her hospitalization, it was noted that she had an umbilical hernia. After she was released, it became discolored and larger. Last week, the lump broke and she has been having excessive drainage from wound ever since. She has been to the ED twice to see if they can stop the leakage. They have applied derma bound and bandaged with ABD pads along with other supplies. These items only last ashort while. Drainage will soak through towels in a short period of time. The ED MD stated that he thinks it is her ascites leaking through. During her paracentesis today, they were unable to remove any fluid, but she was leaking from her wound. Cole Greene PA-C recommended that she see Dr. Harper within the next couple of days to monitor for infection. Niesha does state that wound is painful. Please advise * Telephone Encounter - Abby Sandhu OSA - 04/15/2024 1:47 PM EDT Reason for patient's call: pt called wanting to speak with a nurse in regards to was seen in er andscheduled with dr harper but er recommended pt be seen sooner Caller was transferred to [facility] at the nurse line. documented in this encounter Plan of Treatment Upcoming Encounters Date Type Department Care Team (Late st Contact Info) Description 04/23/2024 11:20 AM EDT Office Visit Hepatology, [facility] [address] [place] [address] Hilda Harper, [address] [place] [address] 06/02/2024 9:00 AM EDT Office Visit Hepatology, [facility] [address] [place] [address] Hilda Harper, DO [address] [place] [address] 06/08/2024 8:00 AM EDT Office Visit Hematology/Oncology [facility] [address] [facility] [place] [phone] Sandra Evans MD [address] [place] [address] 08/03/2024 4:00 PM EST Office Visit Dermatology [facility] [address] [place] [id number] Saran Knutson PA-C [address] [place] [address] Health Maintenance Due Date Last Done Comments [...] 5:16 PM 10/17/2007 5:01 PM Care Teams Insurance Customer Service Specialist Relationship Specialty Start Date End Date Endy Stanley DO PCP - General Family Medicine 07/13/18 documented as of this encounter
--- OUTSIDE RECORDS SUMMARY | 2024-05-02 15:40 | External Medical Summary | Summary of Care ---
Author Name Unknown Organization [facility] Address [address] [place] [address] Phone [phone] Care Team Providers Care Snowboarder Name Role Phone Endy Stanley DO Primary Care Provider [phone] Reason for Referral * Precert (Within 24 hrs (call dept; emergent)) - Pending Review Specialty Diagnoses / Procedures Referred By Contac t Referred To Contact Radiology Diagnoses Cirrhosis of liver with ascites, unspecified hepatic cirrhosis type (HCC) Ecchymosis Procedures CT ABDOMEN WO IV/ORAL CONTRAST Hilda Calvert DO [address] [place] [address] Referral ID Status Reason Start Date Expiration Date V isits Requested Visits Authorized [id number] Pending Review 04/23/2024 999 999 Reason for Visit * Reason Comments Follow Up Per pt here to f/u f or cirrhosis. Pt recently seen at [facility] ED for umbilical hernia. Pt recently started a new diuretic, but unsure of the name. Pt also started Ozempic which was suggested by the liver transplant team. Encounter Details Date Type Department Care Team (Late st Contact Info) Description 04/23/2024 11:20 AM EDT Office Visit Hepatology, [facility] [address] [place] [address] Hilda Calvert DO [address] [place] [address] Cirrhosis of liver with ascites, unspecified hepatic cirrhosis type (HCC)*; Ecchymosis Allergies Active Allergy Reactions Criticality Noted Date [...] suspected opioid overdose. Seek immediate medical attention. [email or web address] Active Prochlorperazine Maleate 5 MG Oral Tablet [...] morning and 1 Tablet before bedtime. Active Cgsdkzacop-VTWW-Tyokj ine 50-325-40 MG Oral Tablet (Fioricet) TAKE [...] Sign Reading Time Taken Comments Blood Pressure 132/70 04/23/2024 11:23 AM EDT Pulse 93 04/23/2024 11:23 AM EDT Temperature 36.7 C (98.1 F) 04/23/2024 11:23 AM E DT Respiratory Rate - - Oxygen Saturation 97% 04/23/2024 11:23 AM EDT Inhaled Oxygen Concentration - - Weight 102.1 kg (225 lb) 04/23/2024 11:23 AM EDT Height - - Body Mass Index 38.89 10/02/2023 2:26 PM EST documented in this encounter Functional Status Functional Status Response Date of Assess ment Does this person have seriou s difficulty walking or climbing stairs? 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 She has other PMH notable for obesity with history of sleeve gastrectomy, thyroid cancer s/p thyroidectomy, multiple strokes and vertebral artery dissection on Plavix, HTN, HLD, DM2. She was just discharged today from [facility] in March. She was admitted for [...] Paracentesis of 2.2 L and discharged to [facility] Admitted 02/14 - 02/17/2023 with altered mental status suspected due to hepatic encephalopathy with additional baclofen use and hyponatremia. Baclofen discontinued, mental state improved. Return to [facility] and was discharged home 03/01/2023 Admitted 03/04/2023 - 03/07/2023 for upper abdominal pain, back pain, poor p.o. intake and significant ascites. Admitted multiple times since March for Hepatic encephalopathy Admitted 05/07-05/14 for hepatic encephalopathy. Presented to [facility] for paracentesis and was found to be confused. Admitted In May (06/05 and 06/15) for HE and volume overload Admitted 07/01-07/04 for HE. Went to paracentesis outpatient and found to be confused. Admitted September and October 2023 for HE She states 13 years ago was when she was diagnosed with cirrhosis after her gastric sleeve surgery.She states she didn't get a liver biopsy at that time but they could tell just by looking at the liver. She states she was then sent to [place] and underwent a liver biopsy and was told the sample wasn't enough to perform a reading. She states she then went to [place] and had a liver biopsy there and they told her on another liver biopsy she had done that she did indeed have liver cirrhosis. She states she has never drank alcohol before and was told this was from GILLESPIE. She then saw Dr. Cummings in 2016. On bumex 2 mg BID and aldactone 100 mg BID. She was also started on metolazone three times weekly. She saw IR in [place] but given her multiple recurrent admissions for HE they felt she was a poor TIPS candidate and a Brent shunt was not a good idea and recommended increasing paracentesis from once to twice weekly. She was getting a paracentesis twice weekly for quite some time but now she has been getting it once weekly. Initially saw Dr. Evans from hematology for her portal vein and splenic vein thrombus and he recommended Lovenox once daily. he ended up discontinuing this on 07/29 given her low platelets, ongoing need for paracentesis 1-2 times weekly, bleeding. Saw Dr. Titus from [facility]. She is listed for transplant there. She has a potential living donor in May and will find out in the next month if the transplant will be a go or not. She is back to needing a paracentesis once weekly. She was getting it twice weekly but now only needing it once weekly. She states [facility] told her she has a ruptured umbilical hernia but they won't operate and just placed dermabond over the site. She states this has been leaking fluid constantly. She was seen by general surgery and the ER physicians at [facility] but surgery did not feel itneeded any emergent surgical intervention. She states that the transplant team at [facility] will plan tofix it a the time of surgery. She fell 2 nights ago. Has extensive bruising over her L flank and buttocks with swelling. Fell when she was getting up in the middle of the night. Did not hit her head but hit her L flank on a fan. Decompensations: Varices: yes Ascites: yes- requiring paracentesis frequently twice weekly at one point. Now down to once weekly. SBP: no HRS: no HE: yes HCC: no Screening: EGD: 2022 [facility] small EV Colonoscopy. none Liver imagin10/2023. CT abdomen. No liver lesions. Review of systems: Positives [...] Procedure Laterality Date [facility]IV[facility]/ BTL COLPSCPY CERVIX W/LOOP ELECT 07/25/2006 Dr Ron [facility] no dysplasia DENTAL SURGERY PROCEDURE NEC wisdom teeth EGD, FLEXIBLE, DIAGNOSTIC N/A 06/18/2016 ESOPHAGOGASTRODUODENOSCOPY (EGD), FLEXIBLE, TRANSORAL, DIAGNOSTIC performed by Lavelle Cervantes DO at ENDOSCOPY [facility] EGD, W/ENDOSCOPIC US N/A 06/18/2016 ESOPHAGOGASTRODUODENOSCOPY (EGD), FLEXIBLE, TRANSORAL, ENDOSCOPIC ULTRASOUND performed by Lavelle Cervantes DO at ENDOSCOPY [facility] ENDOMETRIAL CRYOABLATION US GUIDED 07/25/2006 Dr Ron GALLBLADDER/CHOLECYSTO W/CONT 10/23/2000 patricia lap GASTRIC BAND PLACEMENT/PORT, LAPAROSCOPIC 07/25/2015 REDUCTION OF BREAST 08/25/1994 REMOVAL OF THYROID GLAND 10/15/2007 THYROIDECTOMY COMPLETE performed by YANET ERAZO at OR [facility] REMOVAL OF TONSILS, UNDER AGE 12 REMOVE CERVIX CONE W/LOOP ELECTRODE 12/01/2003 Dr Collazo, ecc LG, portio HG Family History Problem Relation Name Age of Onset Cancer Mother squamous, basal, [...] the evening and 1 Puff before bedtime. Prochlorperazine Maleate 5 MG Oral Tablet (Compazine) Take 1 Tablet by mouth every 6 hours as needed for Nausea. Magnesium 400 MG Oral Capsule Take 1 Capsule by mouth in the morning and 1 Capsule before bedtime. Docusate Sodium 100 MG Oral Capsule (Colace) Take 1 Capsule by mouth in the morning and 1 Capsule before bedtime. Cholecalciferol 125 MCG (5000 UT) Oral Tablet Take by mouth. Omeprazole 40 MG Oral Capsule Delayed Release (PriLOSEC) Take 1 Capsule by mouth in the morning. Levothyroxine Sodium 300 MCG Oral Tablet Take 1 Tablet by mouth in the morning. Tums Extra Strength 750 750 MG Oral Tablet Chewable (calcium CARBonate) Take 1 Tablet by mouth every 6 hours as needed for Heartburn. ALPRAZolam 1 MG Oral Tablet (xaNAX) Take 1 Tablet by mouth 2 times a day as needed for Anxiety. Jymjeyugxu-PUCN-Oplxonbw 50-325-40 MG Oral Tablet (Fioricet) TAKE 2 TABLETS BY MOUTH EVERY 6 HOURS IF NEEDED FOR PAIN - MAX DAILY DOSE OF 8 TABS rifAXIMin 550 MG Oral Tablet (Xifaxan) Take 1 Tablet by mouth in the morning and 1 Tablet before bedtime. 180 Tablet 3 Sertraline HCl 50 MG Oral Tablet (Zoloft) [...] MORNING AND BEFORE BEDTIME 180 Tablet 1 Venlafaxine HCl 75 MG Oral Tablet (Effexor) Take 1 Tablet by mouth in the morning and 1 Tablet before bedtime. Bumetanide 1 MG Oral Tablet (Bumex) TAKE 1 TABLET BY MOUTH IN THE MORNING AND BEFORE BEDTIME (Patient taking differently: Pt states she is taking 3mg in the am and 3mg in the PM) 180 Tablet 1 Clobetasol Propionate 0.05 % External Solution apply to the scalp 1-2 times daily as needed 50 mL 2 Ozempic (0.25 or 0.5 MG/DOSE) 2 MG/1.5ML Solution Pen-injector (Semaglutide(0.25 or 0.5MG/DOS)) Inject under the skin once a week. Potassium Chloride 10 MEQ Oral Packet Take 2 mEq by mouth in the morning and 2 mEq before bedtime. Pt states she is currently taking 40 meq twice daily. ONETOUCH ULTRASOFT LANCETS [facility] use as directed 1 Box 11 valACYclovir (VALTREX) 1000 MG Tablet Take 2 Tabs by mouth every 12 hours. For 1 day for cold sores4 Tab 11 linagliptin (TRADJENTA) 5 MG Tablet Take 1 Tablet by mouth in the morning. (Patient not taking: Reported on 11/27/2023) Ondansetron HCl 8 MG Oral Tablet (Zofran) Take by mouth every 8 hours as needed for Nausea. (Patient not taking: Reported on 04/23/2024) Naloxone HCl 4 MG/0.1ML Nasal Liquid Administer 0.1 mL into nostril as needed. Administer 1 spray into 1 nostril for suspected opioid overdose. Seek immediate medical attention. [email or web address].com/[email or web address]?[email or web address] (Patient not taking: Reported on 11/27/2023) Sennosides-Docusate Sodium 8.6-50 MG Oral Tablet Take 1 Tablet by mouth daily as needed for Constipation. Bisacodyl 10 MG Rectal Suppository Administer 1 Suppository into the rectum daily as needed. (Patient not taking: Reported on 11/27/2023) oxyCODONE HCl 10 MG/0.5ML Oral Concentrate Take 15 mL by mouth every 6 hours. (Patient not taking: Reported on 04/23/2024) hydrOXYzine HCl 10 MG Oral Tablet (Atarax) Take 1 Tablet by mouth 3 times a day as needed. (Patientnot taking: Reported on 04/23/2024) rOPINIRole HCl 4 MG Oral Tablet (Requip) Take 1 Tablet by mouth at bedtime as needed. (Patient not taking: Reported on 02/23/2024) Enoxaparin Sodium 100 MG/ML Injection Solution Prefilled Syringe Inject 100 mg under the skin in the morning. (Patient not taking: Reported on 11/27/2023) Klor-Con 20 MEQ Oral Packet Take 20 mEq by mouth in the morning and 20 mEq before bedtime. (Patientnot taking: Reported on 11/27/2023) Midodrine HCl 2.5 MG Oral Tablet (Proamatine) Take 1 Tablet by mouth in the morning and 1 Tablet atnoon and 1 Tablet before bedtime. (Patient not taking: Reported on 04/23/2024) Acetaminophen 500 MG Oral Tablet (Tylenol) Take 1 Tablet by mouth every 6 hours as needed for Pain,Mild. Sucralfate 1 GM Oral Tablet (Carafate) Take 1 Tablet by mouth in the morning and 1 Tablet before bedtime. (Patient not taking: Reported on 11/27/2023) Doxycycline Monohydrate 100 MG Oral Tablet Take 1 Tablet by mouth in the morning and 1 Tablet before bedtime. (Patient not taking: Reported on 04/23/2024) Midodrine HCl 10 MG Oral Tablet (Proamatine) Take 0.5 Tablets by mouth in the morning and 0.5 Tablets at noon and 0.5 Tablets before bedtime. Instructed to take 5mg if systolic blood pressure below 140. (Patient not taking: Reported on 04/23/2024) Levothyroxine Sodium 25 MCG Oral Tablet (Levoxyl) Take 1 Tablet by mouth in the morning. (Patient not taking: Reported on 11/27/2023) Albumin Human 25 % Intravenous Solution If [...] up to twice weekly. 100 mL 52 Pramipexole Dihydrochloride 0.5 MG Oral Tablet Take 1 Tablet by mouth in the morning and 1 Tablet at noon and 1 Tablet before bedtime. (Patient not taking: Reported on 04/23/2024) No current facility-administered medications for this visit. Review of patient's allergies indicates: Allergen Reactions Codeine Hives Metformin Abdominal pain Physical Exam: vitals: BP 132/70 | Pulse 93 | Temp 36.7 C (98.1 F) | Wt 102.1 kg (225 lb) | SpO2 97% | BMI 38.89 kg/m | BSA 2.14 m GENERAL: Chronically ill appearing. Slow to talk but AAOx3. No asterixis on exam. Notable sarcopenia with some temporal muscle wasting. SKIN: No rashes, ulcers, jaundice. Multiple spider angiomas over chest wall. EXTENSIVE ecchymosis over L flank into the L buttocks with some swelling. HEENT: Normocephalic, sclera anicteric NECK: Supple LUNGS: Clear to auscultation bilaterally, no respiratory distress or accessory muscles used. HEART: Regular rate & rhythm, no murmurs ABDOMEN: Moderate ascites, non-tender, fluid wave appreciated, hard umbilical hernia appreciated but it is reducible. It is very hard to palpation and is leaking ascites fluid. EXTREMITIES: No palmar erythema, 1+ lower extremity edema. NEURO: No asterixis present on exam. Recent Labs: Reviewed MELD 3.0: 12 at 04/16/2024 12:33 PM Calculated from: Serum Creatinine: 1.0 mg/dL at 04/16/2024 12:33 PM Serum Sodium: 138 mmol/L (Using max of 137 mmol/L) at 04/16/2024 12:33 PM Total Bilirubin: 1.4 mg/dL at 04/16/2024 12:33 PM Serum Albumin: 3.8 g/dL (Using max of 3.5 g/dL) at 04/16/2024 12:33 PM INR(ratio): 1.4 at 04/16/2024 12:33 PM Age at listing (hypothetical): 43 years Sex: Female at 04/16/2024 12:33 PM Recent Imaging Studies: Reviewed DEXA scan 10/30/2023: Impression Based on the lowest T-score of 0.6 in the right femoral neck, fracture risk is not increased; WHO classification normal. FRAX Score A FRAX score was not generated at this time due to one or more of the following reasons: - All T-scores at or above -1.0 - Some T-score at or below -2.5 - Prior hip or vertebral fracture - Treated for osteoporosis - Pre-menopausal status - FRAX score cannot be generated on this scanner RECOMMENDATION: Follow-up in 2 years, or as clinically warranted. CT abdomen with contrast 10/30/2023: Impression Cirrhotic liver. Sequela of portal hypertension including small amount of ascites, splenomegaly and venous collateral vessels. No enhancing liver lesions. Liver doppler US 05/09/2023 [facility]: IMPRESSION: 1. No flow was shown [...] liver morphology and ascites. CT abd/pelvis 03/26/2023 [facility]: IMPRESSION: 1. The liver is cirrhotic [...] examined duodenum. - No specimens collected. EUS 2015: Impression: - There was diffuse abnormal echotexture [...] Assessment and plan: Niesha Gutiérrez is a 43 year old F with history of decompensated GILLESPIE cirrhosis c/b recurrent HE,diuretic refractory ascites, esophageal varices, and portal and splenic vein thrombosis here today for follow up. She has other PMH notable for obesity with history of sleeve gastrectomy, thyroid cancer s/p thyroidectomy, multiple strokes and vertebral artery dissection, HTN, HLD, DM2. -Liver disease severity. Pt.'s last MELD was 12. Plan for monthly MELD labs. -Variceal screening: she reports she had an EGD in November 2022 through [facility] with small/trace varices. Denies any history of banding. Due for EGD now but will hold off at this time since she may be getting a liver transplant per patient in May. If transplant falls through will get her set up for an EGD. -Fluid status: based on today's physical exam, the pt. Has 1+ LE edema and moderate ascites. She jeovany bumex 2 mg BID (states she actually takes it 3 mg BID) and aldactone 100 mg BID. Recently started on metolazone 2.5 mg three times weekly by [facility] hepatology. I strongly encouraged her to follow a low sodium diet no more than 2 grams/daily. She was seen by IR and felt to be a very poor candidate for TIPS given recurrent admissions for HE. She was getting a paracentesis twice weekly for quite some time but now she is down to getting it once weekly. LE swelling significantly improved. -Hepatic encephalopathy: based on today's examination, the pt. does not have asterixis. Her HE episodes have significantly improved and need for hospitalization. Continue lactulose and rifaximin and titrate for 3-4 soft bowel movements/daily. Can use Zinc supplement 220 mg daily. High protein snackbefore bedtime. -Renal function: pt.'s most recent SCr was normal. We will get another BMP and monitor her renal function periodically. -HCC screening. Pt.'s last liver imaging study was done 10/2023. Pt will need HCC screening every 6 months with imaging in conjunction with an AFP. Due again 04/2024. -Avoid liver toxins including over the counter herbal supplements. May take Acetaminophen up to 2 grams a day. Avoid NSAIDS due to increased risk of GI bleeding and fluid retention. Avoid all alcohol. Patient encouraged to avoid benzodiazepines and opiate pain medications due to risk of precipitating HE. -Transplant evaluation: Started transplant eval. MELD is only 12 but she is very decompensated getting admitted at least 1-3x monthly with HE and ascites. She was evaluated by the [facility] committeeand they wanted her to be weaned off all narcotics, start with physical therapy, and see her neurologist for clearance. She then saw Dr. Titus from [facility] and is listed for transplant there. She has a potential living donor in May. She states they are working up a few more things and if it worksout she would be transplanted in May. -Debility/sarcopenia: boost/ensure BID -Initially saw Dr. Evans from hematology for her portal vein and splenic vein thrombus and he recommended Lovenox once daily. he ended up discontinuing this on 07/29 given her low platelets, ongoing need for paracentesis 1-2 times weekly, bleeding. She continued to follow with Dr. Evans last seen [id number]. -large L flank bruising after a fall [address] abdomen pelvis without contrast ordered STAT to rule out retroperitoneal hematoma. If unable to be completed today will send her to [facility] ER. -Umbilical hernia. Has been leaking. States she was seen by the ER and general surgery at [facility] with no plans for surgery at this time. They placed dermabond over it. Transplant is planning to fix her umbilical hernia at the time of her living donor if it goes through in May. Advised to watch out for signs including strangulation, abdominal pain, redness that would require urgent ER evaluation. -Given her L flank bruising that is quite significant in the setting of thrombocytopenia I have ordered a STAT CT abd/pelvis wo contrast to rule out a retroperitoneal hematoma. Radiology is able to do this today and she is heading over there now after this appointment. -Follow up in 6-8 weeks Hilda Calvert DO Gastroenterology and Hepatology I spent a total of 35 minutes on the date of service in review of patient's record, and previously obtained information in person and appropriate medical visit, discussion and education of plan, withpatient and/or caregiver, placing orders for tests/referral/procedures as medically necessary and documentation of pertinent clinical information in patient's medical records for their visit today. documented in this encounter Nursing Notes * Keira Goldman CMA - 04/23/2024 11:23 AM EDT Chief Complaint Patient presents with Follow Up Per pt here to f/u for cirrhosis. Pt recently seen at [facility] ED for umbilical hernia. documented in this encounter Plan of Treatment Upcoming Encounters Date Type Department Care Team (Late st Contact Info) Description 06/02/2024 9:00 AM EDT Office Visit Hepatology, [facility] [address] [place] [address] Hilda Calvert DO [address] [place] [address] 06/08/2024 8:00 AM EDT Office Visit Hematology/Oncology [facility] [place] [address] [place] [id number] Sandra Evans MD [address] [place] [address] 08/03/2024 4:00 PM EST Office Visit Dermatology [facility] [address] [place] [phone] Saran Knutson PA-C [address] [place] [phone] Pending Results Name Type Priority Associated Diagnoses Date /Time CT ABDOMEN WO IV/ORAL CONTRAST Medical Imaging STAT Cirrhosis of liver with ascites, unspecified hepatic cirrhosis type (HCC) Ecchymosis 04/23/2024 12:13 PM EDT Scheduled Orders Name Type Priority Associated Diagnoses Orde r Schedule CT ABDOMEN WO IV/ORAL CONTRAST Medical Imaging STAT Cirrhosis of liver with ascites, unspecified hepatic cirrhosis type (HCC) Ecchymosis Expected: 04/23/2024, Expires: 05/24/2025 Health Maintenance Due Date Last Done Comments [...] liver with ascites, unspecified hepatic cirrhosis type (HCC)- Primary Ecchymosis Other specified circulatory system disorders documented in this encounter Advance Directives * Full Code (Latest Code Status on File) Date Activated Date Inactivated Comments 10/15/2007 5:16 PM 10/17/2007 5:01 PM Care Teams Snowboarder Relationship Specialty Start Date End Date Endy Stanley DO PCP - General Family Medicine 07/13/18 documented as of this encounter"
--- OUTSIDE RECORDS SUMMARY | 2024-05-02 15:40 | External Medical Summary | Summary of Care ---
Author Name Unknown Organization [facility] Address [address] [facility] [place] [address] Phone [phone] Care Team Providers Care Broadcast Systems Engineer Name Role Phone Endy Stanley DO Primary Care Provider [phone] Reason for Visit * Reason Onset Date Comments Scheduling 04/23/2024 Encounter Details Date Type Department Care Team (Late st Contact Info) Description 04/23/2024 Telephone Gastroenterology, [facility] [address] [place] [address] Hilda Calvert DO [address] [place] [address] Scheduling Allergies Active Allergy Reactions Criticality Noted [...] overdose. Seek immediate medical attention. [email or web address] Active Prochlorperazine Maleate 5 MG Oral Tablet [...] morning and 1 Tablet before bedtime. Active Tebpzomtrc-DHCT-Avwjp ine 50-325-40 MG Oral Tablet (Fioricet) TAKE [...] Encounter - Krystal Varela OSA - 04/23/2024 1:23 PM EDT Patient called to let me know that she gets her Paracentesis at [facility] and will continue to getthem there . * Telephone Encounter - Krystal Varela OSA - 04/23/2024 12:08 PM EDT Called patient to schedule Paracentesis . No answer. Left message for patient to return call. documented in this encounter Plan of Treatment Upcoming Encounters Date Type Department Care Team (Late st Contact Info) Description 06/02/2024 9:00 AM EDT Office Visit Hepatology, [facility] [address] [place] [address] Hilda Calvert DO [address] [place] [address] 06/08/2024 8:00 AM EDT Office Visit [facility]ematology/[facility] [address] [facility] [place] [phone] Sandra Evans MD [address] [facility] [place] [address] 08/03/2024 4:00 PM EST Office Visit Dermatology [facility] [address] [place] [address] Saran Knutson PA-C [address] [place] [address] Health Maintenance Due Date Last Done Comments [...] 5:16 PM 10/17/2007 5:01 PM Care Teams Broadcast Systems Engineer Relationship Specialty Start Date End Date Endy Stanley DO PCP - General Family Medicine 07/13/18 documented as of this encounter
--- OUTSIDE RECORDS SUMMARY | 2024-05-02 15:40 | External Medical Summary | Summary of Care ---
Author Name Unknown Organization [facility] Address [address] [facility] [place] [address] Phone [phone] Care Team Providers Care Ballast Cleaning Operator Name Role Phone Endy Stanley DO Primary Care Provider +1 [phone] Encounter Details Date Type Department Care Team (Late st Contact Info) Description 04/27/2024 Result Scan Unspecified Department Hilda Calvert DO [address] [place] [address] <No scans attached> Allergies Active Allergy Reactions Criticality Noted Date Comments Codeine Hives 07/18/2012 Metformin Abdominal pain Low 03/30/2013 documented as of this encounter (statuses as of 04/28/2024) Medications Medication Sig Dispensed Refills Start Date [...] suspected opioid overdose. Seek immediate medical attention. https://www.[email or web address] [email or web address]/watch?v=[email or web address] Active Prochlorperazine Maleate 5 MG Oral Tablet [...] morning and 1 Tablet before bedtime. Active Wtjpobufds-XNOU-Kjyie ine 50-325-40 MG Oral Tablet (Fioricet) TAKE [...] as of this encounter (statuses as of 04/28/2024) Active Problems Problem Noted Date Diagnosed Date [...] as of this encounter (statuses as of 04/28/2024) Resolved Problems Problem Noted Date Diagnosed Date [...] as of this encounter (statuses as of 04/28/2024) Immunizations Name Administration Dates Next Due COVID-19, [...] 06/02/2024 9:00 AM EDT Office Visit Hepatology, [facility] [address] [address] Hilda Calvert DO [address] [place] [address] 06/08/2024 8:00 AM EDT Office Visit Hematology/Oncology [facility] [place] [address] [facility] [place] [phone] Sandra Evans MD [address] [place] [address] 08/03/2024 4:00 PM EST Office Visit Dermatology [facility] 68 [place] [address] Saran Knutson PA-C [address] [place] [address] Health Maintenance Due Date Last [...] Date/Time Associated Diagnosis Comments RADIOLOGY SCANNED RESULT 04/27/2024 documented in this encounter Results * RADIOLOGY SCANNED RESULT (04/27/2024) 04/27/2024 Hilda Calvert DO DIAGNOSTIC RAD IOLOGY SERVICES documented in this encounter Advance Directives * Full Code (Latest Code Status on File) Date Activated Date Inactivated Comments 10/15/2007 5:16 PM 10/17/2007 5:01 PM Care Teams Ballast Cleaning Operator Relationship Specialty Start Date End Date Endy Stanley DO PCP - General Family Medicine 07/13/18 documented as of this encounter
--- OUTSIDE RECORDS SUMMARY | 2024-05-02 15:40 | External Medical Summary | Summary of Care ---
Author Name Unknown Organization [facility] Address [address] [facility] [place] [address] Phone [phone] Care Team Providers Care Finisher Polisher Name Role Phone Lizeth, Endy Mora DO Primary Care Provider +1 [phone] Encounter Details Date Type Department Care Team (Late st Contact Info) Description 04/13/2024 Result Scan Unspecified Department <No scans attached> Allergies Active Allergy Reactions Criticality Noted Date Comments Codeine Hives 07/18/2012 Metformin Abdominal pain Low 03/30/2013 documented as of this encounter (statuses as of 04/27/2024) Medications Medication Sig Dispensed Refills Start Date [...] suspected opioid overdose. Seek immediate medical attention. [email or web address]?v=[email or web address] Active Prochlorperazine Maleate 5 MG Oral Tablet [...] morning and 1 Tablet before bedtime. 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 Contact Info) Description 06/02/2024 9:00 AM EDT Office Visit Hepatology, [facility] [address] [place] [address] Hilda Calvert DO [address] [place] [address] 06/08/2024 8:00 AM EDT Office Visit Hematology/Oncology [facility] [address] [place] [phone] Sandra Evans MD [address] [place] [address] 08/03/2024 4:00 PM EST Office Visit Dermatology [facility] [address] [facility] [place] [address] Saran Knutson PA-C 68 [facility] [place] [address] Health Maintenance Due Date Last Done Comments [...] Procedure Name Priority Date/Time Associated Diagnosis Comments EKG SCANNED RESULT 04/13/2024 documented in this encounter Results * EKG SCANNED RESULT (04/13/2024) 04/13/2024 No Physician Data Unknown EKG documented in this encounter Advance Directives * Full Code (Latest Code Status on File) Date Activated Date Inactivated Comments 10/15/2007 5:16 PM 10/17/2007 5:01 PM Care Teams Finisher Polisher Relationship Specialty Start Date End Date Endy Stanley DO PCP - General Family Medicine 07/13/18 documented as of this encounter
--- OUTSIDE RECORDS SUMMARY | 2024-05-02 15:41 | External Medical Summary | Summary of Care ---
Author Name Unknown Organization [facility] Address [address] [facility] [place] [address] Phone [phone] Care Team Providers Care Tier Over Name Role Phone Lizeth, Endy Mora DO Primary Care Provider +1 [phone] Reason for Visit * Reason Onset Date Comments Test Results 04/20/2024 Dr. Evans Encounter Details Date Type Department Care Team (Late st Contact Info) Description 04/20/2024 Telephone Hematology/Oncology [facility] [place] [address] [place] [address] Sandra Evans MD [address] [place] [address] Test Results (Dr. Evans ) Allergies Active Allergy Reactions Criticality Noted Date Comments Codeine Hives 07/18/2012 Metformin Abdominal pain Low 03/30/2013 documented as of this encounter (statuses as of 04/21/2024) Medications Medication Sig Dispensed Refills Start Date [...] suspected opioid overdose. Seek immediate medical attention. https://www.evocatalu [email or web address]/watch?v=v2 [email or web address] Active Prochlorperazine Maleate 5 MG Oral Tablet [...] morning and 1 Tablet before bedtime. 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 * Telephone Encounter - Ann Ball LPN - 04/20/2024 3:15 PM EDT Please see TE from 04/08/2024 * Telephone Encounter - Estrellita Smalls OSA - 04/20/2024 2:52 PM EDT Patient called to speak with a nurse about her lab results. Please contact pt at [phone]. Thank you. * Telephone Encounter - Ann Ball LPN - 04/20/2024 12:28 PM EDT Copy of lab results faxed to Dr. Fady DO at . * Telephone Encounter - Ann Ball LPN - 04/20/2024 12:23 PM EDT ----- Message from Sandra Evans MD sent at 04/20/2024 9:19 AM EDT ----- Potassium is 3. Please inform the PCP office for further management documented in this encounter Plan of Treatment Upcoming Encounters Date Type Department Care Team (Late st Contact Info) Description 04/23/2024 11:20 AM EDT Office Visit Hepatology [facility] [address] [address] Hilda Calvert DO [address] [place] [address] 06/02/2024 9:00 AM EDT Office Visit Hepatology [facility] [address] [address] Hilda Calvert DO [address] [place] [address] 06/08/2024 8:00 AM EDT Office Visit Hematology/Oncology Joshua Martinez [place] 200 [facility] [place], [place] [address] Sandra Evans MD 200 [facility] [place], [place] [address] 08/03/2024 4:00 PM EST Office Visit Dermatology [facility] [address] [place] [address] Saran Knutson PA-C [address] [place] [address] Health Maintenance Due Date Last Done Comments [...] 5:16 PM 10/17/2007 5:01 PM Care Teams Tier Over Relationship Specialty Start Date End Date Endy Stanley DO PCP - General Family Medicine 07/13/18 documented as of this encounter
--- OUTSIDE RECORDS SUMMARY | 2024-05-02 15:41 | External Medical Summary | Summary of Care ---
Author Name Unknown Organization [facility] Address [address] [facility] [place] [address] Phone [phone] Care Team Providers Care Service Counselor Name Role Phone Lizeth, Endy Mora DO Primary Care Provider +1 [phone] Reason for Visit * Reason Onset Date Comments Test Results 04/20/2024 Dr. Evans Encounter Details Date Type Department Care Team (Late st Contact Info) Description 04/20/2024 Telephone Hematology/Oncology [facility] [place] [address] [place] [address] Sandra Evans MD [address] [place] [address] Test Results (Dr. Evans ) Allergies Active Allergy Reactions Criticality Noted Date Comments Codeine Hives 07/18/2012 Metformin Abdominal pain Low 03/30/2013 documented as of this encounter (statuses as of 04/22/2024) Medications Medication Sig Dispensed Refills Start Date [...] suspected opioid overdose. Seek immediate medical attention. https://www.Ushiu [email or web address]/watch?v=v2 [email or web address] Active Prochlorperazine Maleate 5 MG Oral Tablet [...] morning and 1 Tablet before bedtime. Active Merqaamyny-FHKB-Ygzrz ine 50-325-40 MG Oral Tablet (Fioricet) TAKE [...] as of this encounter (statuses as of 04/22/2024) Active Problems Problem Noted Date Diagnosed Date [...] as of this encounter (statuses as of 04/22/2024) Resolved Problems Problem Noted Date Diagnosed Date [...] as of this encounter (statuses as of 04/22/2024) Immunizations Name Administration Dates Next Due COVID-19, [...] Telephone Encounter - Cassie Shelton RN - 04/22/2024 3:[address] Evans's routing comment: "Agree" Faxed order to CTU/ central scheduling. * Telephone Encounter - Cassei Shelton RN - 04/22/2024 1:07 PM EDT Received referral message: "Monoferric is non preferred with [employer]. Preferred meds are : NA ferric Gluc,Ferrlecit Msg to clinic to update if they can use one of the preferred. " Last time patient received iron, wanted to get venofer at [facility] since she has transportation issues and goes there 2x/week for paracentesis anyhow. Dr Evans: are you ok with us arranging venofer x4 at [facility] again? If so, can prep order for you to sign when you come in next week * Telephone Encounter - Ann Ball LPN - 04/21/2024 12:50 PM EDT Order received for Monoferric, [place] plan built and routed to provider, Awaiting prior authorization before scheduling patient. * Telephone Encounter - Ann Ball LPN - 04/20/2024 3:15 PM EDT Please see TE from 04/08/2024 * Telephone Encounter - Estrellita Smalls OSA - 04/20/2024 2:52 PM EDT Patient called to speak with a nurse about her lab results. Please contact pt at [phone]. Thank you. * Telephone Encounter - Ann [...] 04/23/2024 11:20 AM EDT Office Visit Hepatology, [facility] [address] [place] [address] Hilda Calvert DO [address] [place] [address] 06/02/2024 9:00 AM EDT Office Visit Hepatology, [facility] [address] [place] [address] Hilda Calvert DO [address] [place] [address] 06/08/2024 8:00 AM EDT Office Visit Hematology/Oncology [facility] [address] [facility] [place] [address] Sandra Evans MD [address] [facility] [place] [address] 08/03/2024 4:00 PM EST Office Visit Dermatology [facility] [address] [place] [address] Saran Knutson PA-C [address] [place], [place] [phone] Health Maintenance Due Date Last Done Comments [...] PM 10/17/2007 5:01 PM Care Teams Service Counselor Relationship Specialty Start Date End Date Endy Stanley DO PCP - General Family Medicine 07/13/18 documented as of this encounter
--- OUTSIDE RECORDS SUMMARY | 2024-05-02 15:41 | External Medical Summary | Summary of Care ---
Author Name Unknown Organization [facility] Address [address] [place] [address] Phone [phone] Care Team Providers Care Awake Overnight Monitor Name Role Phone Lizeth Endy Mora DO Primary Care Provider +1 [phone] Reason for Visit * Reason Onset Date Comments Lab Draw Only 04/08/2024 Nathan Encounter Details Date Type Department Care Team (Late st Contact Info) Description 04/08/2024 Telephone Hematology/Oncology [facility] [address] [place] [address] Services, Scheduling [address] [place] [address] Lab Draw Only (Nathan) Allergies Active Allergy Reactions Criticality Noted Date [...] suspected opioid overdose. Seek immediate medical attention. https://www.[email or web address]/watch?v=v2 [email or web address] Active Prochlorperazine Maleate 5 MG Oral Tablet [...] morning and 1 Tablet before bedtime. Active Nzqzurowbk-DZZT-Nlxmr ine 50-325-40 MG Oral Tablet (Fioricet) TAKE [...] Encounter - Ann Ball LPN - 04/20/2024 3:16 PM EDT Returned patient's phone call from 04/20/2024. Patient states she did see her iron labs; She is requesting an iron infusion. Patient complaint of "sore" mouth and tongue, tiredness and "feeling run down", and "aching" in the BLE, patient rates aching at night of 8:10 on NRS. Patient is requesting the Monoferric. Patient does report that she started the Mirapex 0.5 mg tabs one month for her RLS, she states thatdoes help. * Telephone Encounter - Sherin Muñiz RN - 04/20/2024 11:[address] Evans, no need for additional iron. Patient next appointment scheduled 06/[address] Evans. * Telephone Encounter - Sherin Muñiz RN - 04/19/2024 1:12 PM EDT Labs completed 04/16. Dr. Evans please review and order additional iron if required. * Telephone Encounter - Cassie Shelton RN - 04/16/2024 9:13 AM EDT Called patient- she states that she did not need her paracentesis either time this week. She was inthe ER on Friday for issues with a umbilical hernia. She states that she asked them to draw her iron levels but they did not. She states that she is going to [facility] lab today. Called [facility] medical records and spoke to Estrellita. Asked them to fax ER records to our office. * Telephone Encounter - Ann Ball LPN - 04/15/2024 10:39 AM EDT Attempted to contact [facility] Medical records for lab results, on hold > 5 min, unable to leave a voicemail. Will attempt again at a later time * Telephone Encounter - Forrest Couch RN - 04/14/2024 8:40 AM EDT Ildefonso- please call [facility] CLARISSA this afternoon to request lab records. I checked their system this morning but no labs other than 04/09 were seen. * Telephone Encounter - Cassie Shelton RN - 04/09/2024 3:27 PM EDT Called patient. She gets a paracentesis at [facility] twice a week. Her next paracentesis is Friday. Advised her lab orders are placed. She states that the person in IR is able to pull the [facility]. She states that she has a sore tongue, and that this improved after her iron infusion so she thinksit is related to her iron deficiency anemia. She would like to know if Dr Evans will order an iron infusion for her sore tongue even if her labs look ok- advised her that iron infusion is based on labs, will need to see how lab results look. She verbalized understanding. * Telephone Encounter - Meggan Torres OSA - 04/08/2024 12:11 PM EDT Nathan pt-Niesha Gutiérrez Pt is calling regarding labs she wants to get done possibly. Pt is wondering if she could have the labs drawn today? Can you please call pt back and let her know at [phone] Thank you! documented in this encounter Plan of Treatment Upcoming Encounters Date Type Department Care Team (Late st Contact Info) Description 04/23/2024 11:20 AM EDT Office Visit Hepatology [facility] [address] [place] [address] Hilda Calvert DO [address] [place] [address] 06/02/2024 9:00 AM EDT Office Visit Hepatjani [facility] [address] [place] [address] Hilda Calvert DO [address] [place] [address] 06/08/2024 8:00 AM EDT Office Visit Hematology/Oncology Joshua Martinez [place] 200 [facility] [place] [phone] Sandra Evans MD [address] [facility] [place] [address] 08/03/2024 4:00 PM EST Office Visit Dermatology [facility] 68 [place] [address] Saran Knutson PA-C [address] [place] [address] Health Maintenance Due Date Last [...] as of this encounter Visit Diagnoses Diagnosis Iron deficiency anemia, unspecified iron deficiency anemia type- Primary documented in this encounter Advance Directives * Full Code (Latest Code Status on File) Date Activated Date Inactivated Comments 10/15/2007 5:16 PM 10/17/2007 5:01 PM Care Teams Awake Overnight Monitor Relationship Specialty Start Date End Date Endy Stanley DO PCP - General Family Medicine 07/13/18 documented as of this encounter
--- OUTSIDE RECORDS SUMMARY | 2024-05-02 15:41 | External Medical Summary | Summary of Care ---
Author Name Unknown Organization [facility] Address [address] [facility] [place] [address] Phone [phone] Care Team Providers Care Social Work Nurse Name Role Phone Endy Stanley DO Primary Care Provider +1 [phone] Reason for Visit * Reason Onset Date Comments Test Results Lab 04/20/2024 Encounter Details Date Type Department Care Team (Late st Contact Info) Description 04/20/2024 Telephone Hepatology, [facility] [address] [place] [address] Hilda Calvert DO [address] [place] [address] Test Results Lab Allergies Active Allergy Reactions Criticality Noted Date [...] overdose. Seek immediate medical attention. [email or web address]://www.youtu [email or web address]/watch?v=[email or web address] [email or web address] Active Prochlorperazine Maleate 5 MG Oral Tablet [...] morning and 1 Tablet before bedtime. Active Gvmxidqctm-KBPZ-Bfezl ine 50-325-40 MG Oral Tablet (Fioricet) TAKE [...] encounter Miscellaneous Notes * Telephone Encounter - Adina Andre LPN - 04/21/2024 9:41 AM EDT MyG message sent * Telephone Encounter - Hilda Calvert DO - 04/20/2024 2:02 PM EDT Please let patient know recent labs reviewed. MELD-Na score at 11. Remains low. Potassium is low at3.0. can we check to see what dose of diuretics she is taking? Last I had in my note was bumex 2 mgBID and aldactone 100 mg BID but per recent med list it looks like bumex 1 mg BID and aldactone 100mg BID. Is she taking her potassium 20 meq twice daily? If so I want her to double this for three days thengo back to 20 twice daily. MELD 3.0: 12 at 04/16/2024 12:33 PM MELD-Na: 11 at 04/16/2024 12:33 PM Calculated from: Serum [...] years Sex: Female at 04/16/2024 12:33 PM Hilda Calvert DO documented in this encounter Plan of Treatment Upcoming Encounters Date Type Department Care Team (Late st Contact Info) Description 04/23/2024 11:20 AM EDT Office Visit Hepatology [facility] [address] [place] [address] Hilda Calvert DO [address] [place] [address] 06/02/2024 9:00 AM EDT [facility] [address] [address] Hilda Calvert DO [address] [place] [address] 06/08/2024 8:00 AM EDT Office Visit Hematology/Oncology [facility] [place] [facility] [address] Sandra Evans MD 200 [place] [address] 08/03/2024 4:00 PM EST Office Visit Dermatology [facility] [address] [place] [address] Saran Knutson PA-C [address] [place] [address] Health Maintenance Due Date Last Done Comments [...] 10/17/2007 5:01 PM Care Teams Social Work Nurse Relationship Specialty Start Date End Date Endy Stanley DO PCP - General Family Medicine 07/13/18 documented as of this encounter
--- OUTSIDE RECORDS SUMMARY | 2024-05-02 15:41 | External Medical Summary | Summary of Care ---
Author Name Unknown Organization [facility] Address [address] [facility] [place] [address] Phone [phone] Care Team Providers Care Merchandise Distributor Name Role Phone Lizeth, Endy Mora DO Primary Care Provider +1 [phone] Reason for Visit * Reason Onset Date Comments Test Results 04/20/2024 Dr. Evans Encounter Details Date Type Department Care Team (Late st Contact Info) Description 04/20/2024 Telephone Hematology/Oncology [facility] [place] [address] [place] [address] Sandra Evans MD [address] [place] [address] Test Results (Dr. Evans ) Allergies Active [...] suspected opioid overdose. Seek immediate medical attention. https://www.IntegraGenu [email or web address]/watch?v=[email or web address] [email or web address] Active Prochlorperazine Maleate 5 MG Oral Tablet [...] morning and 1 Tablet before bedtime. Active Thxbvauijt-WWBB-Ycjvd ine 50-325-40 MG Oral Tablet (Fioricet) TAKE [...] Encounter - Cassie Shelton RN - 04/22/2024 1:07 PM EDT Received referral message: "Monoferric is non preferred with [employer]. Preferred meds are : NA ferric Gluc,Ferrlecit Msg to clinic to update if they can use one of the preferred. " Last time patient received iron, wanted to get venofer at [facility] since she has transportation issues and goes there 2x/week for paracentesis anyhow. Dr Evans: are you ok with us arranging venofer x4 at [facility] again? If so, can prep order for you to sign when you come in next week * Telephone Encounter - Ann Ball LPN - 04/21/2024 12:50 PM EDT Order received for Monoferric, [place] plan built and routed to provider, Awaiting prior authorization before scheduling patient. * Telephone Encounter - Ann Ball LPN - 04/20/2024 3:15 PM EDT Please see TE from 04/08/2024 * Telephone Encounter - Estrellita Smalls OSA - 04/20/2024 2:52 PM EDT Patient called to speak with a nurse about her lab results. Please contact pt at [phone]. Thank you. * Telephone Encounter - Ann [...] 04/23/2024 11:20 AM EDT Office Visit Hepatology, [facility] [address] [place] [address] Hilda Calvert, [address] [place] [address] 06/02/2024 9:00 AM EDT Office Visit Hepatology, [facility] [address] [place] [address] Hilda Calvert DO [address] [place] [address] 06/08/2024 8:00 AM EDT Office Visit Hematology/Oncology [facility] 200 [place] [address] Sandra Evans MD [address] [facility] [place] [address] 08/03/2024 4:00 PM EST Office Visit Dermatology [facility] [address] [place] [address] Saran Knutson PA-C [address] [place] [address] Health Maintenance Due Date Last Done Comments [...] 5:16 PM 10/17/2007 5:01 PM Care Teams Merchandise Distributor Relationship Specialty Start Date End Date Endy [place] DO PCP - General Family Medicine 07/13/18 documented as of this encounter
--- OUTSIDE RECORDS SUMMARY | 2024-05-02 15:41 | External Medical Summary | Summary of Care ---
Author Name Unknown Organization [facility] Address [address] [place] [address] Phone [phone] Care Team Providers Care Fire Sprinkler Installer Name Role Phone Lizeth Endy Mora DO Primary Care Provider [phone] [phone] Reason for Visit * Reason Onset Date Comments Lab Draw Only 04/08/2024 Nathan Encounter Details Date Type Department Care Team (Late st Contact Info) Description 04/08/2024 Telephone Hematology/Oncology [facility] [address] [place] [address] Services, Scheduling [address] [place] [address] Lab Draw Only (Nathan) Allergies Active Allergy Reactions Criticality Noted Date Comments Codeine Hives 07/18/2012 Metformin Abdominal pain Low 03/30/2013 documented as of this encounter (statuses as of 04/20/2024) Medications Medication Sig Dispensed Refills Start Date [...] suspected opioid overdose. Seek immediate medical attention. [email or web address]://www.Bounce [email or web address]/watch?v=[email or web address] Active Prochlorperazine Maleate 5 MG Oral Tablet [...] morning and 1 Tablet before bedtime. Active Cvaskxrerh-PTUE-Fmidz ine 50-325-40 MG Oral Tablet (Fioricet) TAKE [...] as of this encounter (statuses as of 04/20/2024) Active Problems Problem Noted Date Diagnosed Date [...] as of this encounter (statuses as of 04/20/2024) Resolved Problems Problem Noted Date Diagnosed Date [...] as of this encounter (statuses as of 04/20/2024) Immunizations Name Administration Dates Next Due COVID-19, [...] She states that she is going to [facility] lab today. Called [facility] medical records and spoke to Estrellita. Asked them to fax ER records to our office. * Telephone Encounter - Ann Ball LPN - 04/15/2024 10:39 AM EDT Attempted to contact [facility] Medical records for lab results, on hold > 5 min, unable to leave a voicemail. Will attempt again at a later time * Telephone Encounter - Forrest Couch RN - 04/14/2024 8:40 AM EDT Ildefonso- please call [facility] CLARISSA this afternoon to request lab records. I checked their system this morning but no labs other than 04/09 were seen. * Telephone Encounter - Cassie Shelton RN - 04/09/2024 3:27 PM EDT Called patient. She gets a paracentesis at [facility] twice a week. Her next paracentesis is Friday. Advised her lab orders are placed. She states that the person in IR is able [facility]. She states that she has a [...] pt back and let her know at [phone] Thank you! documented in this encounter Plan of Treatment Upcoming Encounters Date Type Department Care Team (Late st Contact Info) Description 04/23/2024 11:20 AM EDT Office Visit Hepatology [facility] [address] [place] [address] Hilda Calvert DO [address] [place] [address] 06/02/2024 9:00 AM EDT Office Visit Hepatjani [facility] [address] [place] [address] Hilda Calvert DO [address] [place] [address] 06/08/2024 8:00 AM EDT Office Visit Hematology/Oncology [facility] [place] 200 [facility] [place] [phone] Sandra Evans MD 200 [facility] [place] [address] 08/03/2024 4:00 PM EST Office Visit Dermatology [facility] [address] [place] [address] Saran Knutson PA-C [address] [place] [address] Health Maintenance Due Date Last [...] 5:16 PM 10/17/2007 5:01 PM Care Teams Fire Sprinkler Installer Relationship Specialty Start Date End Date Endy [place] DO PCP - General Family Medicine 07/13/18 documented as of this encounter
--- OUTSIDE RECORDS SUMMARY | 2024-05-02 15:41 | External Medical Summary | Summary of Care ---
Author Name Unknown Organization [facility] Address [address] [place] [address] Phone [phone] Care Team Providers Care Outpatient Program Coordinator Name Role Phone Endy [place] DO Primary Care Provider [phone] [phone] Encounter Details Date Type Department Care Team (Late st Contact Info) Description 04/21/2024 Orders Only Hematology/Oncology, [facility] [address] [place], [place] [phone] Sandra Evans MD [address] [place] [address] Allergies Active Allergy Reactions Criticality Noted Date [...] suspected opioid overdose. Seek immediate medical attention. [email or web address]://www.Anxa.com/watch?v=[email or web address] Active Prochlorperazine Maleate 5 MG Oral Tablet [...] morning and 1 Tablet before bedtime. Active Eztomfxunl-FPHK-Kmybv ine 50-325-40 MG Oral Tablet (Fioricet) TAKE [...] 04/23/2024 11:20 AM EDT Office Visit Hepatology, [facility] [address] [place] [address] Hilda Calvert DO [address] [place] [address] 06/02/2024 9:00 AM EDT Office Visit Hepatology, [facility] [address] [place] [address] Hilda Calvert DO [address] [place] [address] 06/08/2024 8:00 AM EDT Office Visit Hematology/Oncology [employer] [address] [facility] [place] [address] Sandra Evans MD 200 [facility] [place] [address] 08/03/2024 4:00 PM EST Office Visit Dermatology [facility] [address] [place] [address] Saran Knutson PA-C [address] [place] [address] Health Maintenance Due Date Last [...] 5:16 PM 10/17/2007 5:01 PM Care Teams Outpatient Program Coordinator Relationship Specialty Start Date End Date Endy [place] DO PCP - General Family Medicine 07/13/18 documented as of this encounter
--- OUTSIDE RECORDS SUMMARY | 2024-05-02 15:41 | External Medical Summary | Summary of Care ---
Author Name Unknown Organization [facility] Address [address] [place] [address] Phone [phone] Care Team Providers Care Coach Mechanic Name Role Phone Lizeth Endy Morgan SUMNER Primary Care Provider [phone] [phone] Reason for Visit * Reason Onset Date Comments Advice 01/20/2024 Dr. Evans Encounter Details Date Type Department Care Team (Late st Contact Info) Description 01/20/2024 Telephone Hematology/Oncology [facility] [address] [place] [address] Services, Scheduling [address] [place] [address] Advice (Dr. Evans ) Allergies Active Allergy Reactions Criticality Noted Date Comments Codeine Hives 07/18/2012 Metformin Abdominal pain Low 03/30/2013 documented as of this encounter (statuses as of 04/20/2024) Medications Medication Sig Dispensed Refills Start Date End Date Status ONETOUCH ULTRASOFT LANCETS MISCIndications:Typ e II or unspecified type diabetes mellitus without mention of complication, uncontrolled use as directed 1 [address] 04/05/20 13 Active TRETINOIN 0.05 % EX CREAIndications:Oth er acne APPLY TO SKIN AT BEDTIME 30 MINUTES AFTER WASHING AND DRYING SKIN 45 g 11 03/21/20 14 Active valACYclovir (VALTREX) 1000 MG TabletIndications:C old sore Take 2 Tabs by mouth every 12 hours. For 1 day for cold sores 4 Tab 11 05/03/20 16 Active Venlafaxine HCl ER 150 MG Oral Capsule Extended Release 24 Hour Take 1 Capsule by mouth in the morning. Do not cut, crush, or chew.. 30 Cap 5 01/14/20 18 Active LINZESS 290 MCG Capsule TAKE 1 CAPSULE BY MOUTH DAILY 90 Cap 3 03/04/20 18 Active lactulose (CONSTULOSE) 10 GM/15ML solutionIndications :GILLESPIE (nonalcoholic steatohepatitis),Bi liary cirrhosis (HCC) Take 30 ml by mouth three times a day 2700 mL 5 04/01/20 18 Active linagliptin (TRADJENTA) 5 MG Tablet Take 1 Tablet by mouth in the morning. Active famotidine (PEPCID) 20 MG Tablet Take 1 Tablet by mouth in the morning and 1 Tablet before bedtime. Active Lactulose 20 GM Oral Packet (Kristalose) Take 1.5 Packets by mouth in the morning and 1.5 Packets at noon and 1.5 Packets in the evening. Goal BM=3-4 times daily. 02/15/20 23 Active Ondansetron HCl 8 MG Oral Tablet [...] suspected opioid overdose. Seek immediate medical attention. https://www.ABL Solutions.com/watch?v= [email or web address] Active Prochlorperazine Maleate 5 MG Oral Tablet [...] the morning and 20 mEq before bedtime. 06/22/20 Active Levothyroxine Sodium 300 MCG Oral Tablet Take 1 Tablet by mouth in the morning. 06/02/20 23 Active Midodrine HCl 2.5 MG Oral Tablet [...] morning and 1 Tablet before bedtime. Active Vyjxxhmyqf-CAYL-Izv feine 50-325-40 MG Oral Tablet (Fioricet) TAKE 2 TABLETS BY MOUTH EVERY 6 HOURS IF NEEDED FOR PAIN - MAX DAILY DOSE OF 8 TABS 07/14/20 Active Doxycycline Monohydrate 100 MG Oral Tablet Take 1 Tablet by mouth in the morning and 1 Tablet before bedtime. 08/26/19 24 Active rifAXIMin 550 MG Oral Tablet (Xifaxan)Indication s:Cirrhosis of liver (HCC) Take 1 Tablet by mouth in the morning and 1 Tablet before bedtime. 180 Tablet 3 09/24/19 24 Active Midodrine HCl 10 MG Oral Tablet (Proamatine) Take 0.5 Tablets by mouth in the morning and 0.5 Tablets at noon and 0.5 Tablets before bedtime. Instructed to take 5mg if systolic blood pressure below 140. 09/09/19 24 Active Levothyroxine Sodium 25 MCG Oral Tablet (Levoxyl) Take 1 Tablet by mouth in the morning. 09/09/19 24 Active Sertraline HCl 50 MG Oral Tablet (Zoloft) Take 1 Tablet by mouth in the morning. 90 Tablet 10/03/19 24 Active Sertraline HCl 25 MG Oral Tablet (Zoloft) Take 1 Tablet by mouth in the morning. Take with 50 mg dose to = 75 mg daily.. 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 100 mL 52 12/10/19 24 Active Bumetanide 1 MG Oral TabletIndications:L iver cirrhosis secondary to nonalcoholic steatohepatitis (GILLESPIE) (HCC) Take 2 Tablets by mouth in the morning and 2 Tablets before bedtime. 180 Tablet 1 06/04/20 23 024 Discontinued Clobetasol Propionate 0.05 % External Solution apply to the scalp 1-2 times daily as needed 50 mL 2 11/24/19 24 024 Discontinued(Re fill) documented as of this encounter (statuses as [...] Telephone Encounter - Cassie Shelton RN - 01/20/2024 1:27 PM EDT Called patient. She is exhausted, chewing ice, thinks her iron levels are very low. In the past, she got iron infusions every 3 months when she saw hematology at [facility]. The last time she received iron infusions was in June while she was admitted- states that she received 3 bags of iron. Advised patient that we can check lab work now. She states that she will go to [place] lab tomorrow as a walk in. * Telephone Encounter - Marietta Panda OSA - 01/20/2024 1:18 PM EDT Patient is calling to see about recommendations or a possible sooner appointment. Patient has concerns due to having eaten 10 lbs of ice yesterday. documented in this encounter Plan of Treatment Upcoming Encounters Date Type Department Care Team (Late st Contact Info) Description 04/23/2024 11:20 AM EDT Office Visit Hepatology, [facility] [address] [place] [address] Hilda Calvert, [address] [place] [address] 06/02/2024 9:00 AM EDT Office Visit Hepatology, [facility] [address] [place] [address] Hilda Calvert DO [address] [place] [address] 06/08/2024 8:00 AM EDT Office Visit Hematology/Oncology [facility] 200 [facility] [place] [address] Sandra Evans MD 200 [facility] [place] [address] 08/03/2024 4:00 PM EST Office Visit Dermatology [facility] [address] [place] [address] Saran Knutson PA-C [address] [place] [address] Health Maintenance Due Date Last Done Comments [...] filedocumented as of this encounter Results * (ABNORMAL) IRON SCREEN, INCLUDING TIBC (04/16/2024 12:33 PM EDT) Iron 39 33 - 151 ug/dL 04/17/2024 12:52 AM EDT [facility] Iron Binding Capacity 308 250 - 425 ug/dL 04/17/2024 12:52 AM EDT [facility] Transferrin Saturation Percent 13(L) 15 - 55 % 04/17/2024 12:52 AM EDT [facility] Blood Venous blood specimen / Unknown Venipuncture / Unknown 04/16/2024 12:33 PM EDT 04/16/2024 12:33 PM EDT Sandra Evans MD LAB BLOOD ORDERA BLES Performing Organization Address City/[facility] Co de Phone Number LABORATORY [facility] [address] [place] [address] * FERRITIN (04/16/2024 12:33 PM EDT) [facility] Ferritin 52 13 - 150 ng/mL 04/17/2024 1:36 AM EDT LABORATORY [facility] Comment:Postmenopausal women have higher ferritin levels than pre-menopausal women. The above reference interval is based on pre-menopausal women. Blood Venous blood specimen / Unknown Venipuncture / Unknown 04/16/2024 12:33 PM EDT 04/16/2024 12:33 PM EDT Sandra Evans MD LAB BLOOD ORDERA BLES Performing Organization Address [facility] de Phone Number LABORATORY [facility] [address] [place] [address] documented in this encounter Visit Diagnoses Diagnosis Other cirrhosis of liver (HCC)- Primary Iron deficiency anemia Iron deficiency anemia, unspecified documented in this encounter Advance Directives * Full Code (Latest Code Status on File) Date Activated Date Inactivated Comments 10/15/2007 5:16 PM 10/17/2007 5:01 PM Care Teams Coach Mechanic Relationship Specialty Start Date End Date Endy [place] DO PCP - General Family Medicine 07/13/18 documented as of this encounter
--- OUTSIDE RECORDS SUMMARY | 2024-05-02 15:41 | External Medical Summary | Summary of Care ---
Author Name Unknown Organization [facility] Address [address] [facility] [place] [address] Phone [phone] Care Team Providers Care Purler Name Role Phone Lizeth, Endy Mora DO Primary Care Provider +1 [phone] Reason for Visit * Reason Onset Date Comments Test Results 04/20/2024 Dr. Evans Encounter Details Date Type Department Care Team (Late st Contact Info) Description 04/20/2024 Telephone Hematology/Oncology [facility] [place] [address] [place] [address] Sandra Evans MD [address] [place] [address] Test Results (Dr. Evans ) Allergies Active [...] suspected opioid overdose. Seek immediate medical attention. https://www.Muzyu be.com/watch?v=[email or web address] Active Prochlorperazine Maleate 5 MG Oral Tablet [...] morning and 1 Tablet before bedtime. Active Bqnnzwtvuc-FTHM-Wkmpd ine 50-325-40 MG Oral Tablet (Fioricet) TAKE [...] CORD ENTANG NEC-ANTEPAR 10/30/200512/24 Other constipation 09/13/2005 Hyperthyroidism 05/21/2005 05/14/2017 Overview: diag with preg [...] her lab results. Please contact pt at [phone]. Thank you. * Telephone Encounter - Ann [...] 04/23/2024 11:20 AM EDT Office Visit Hepatology [facility] [address] [place] [address] Hilda Calvert DO [address] [place] [address] 06/02/2024 9:00 AM EDT Office Visit Hepatology [facility] [address] [place] [address] Hilda Calvert DO [address] [place] [address] 06/08/2024 8:00 AM EDT Office Visit Hematology/Oncology [facility] [place] [address] [place] [phone] Sandra Evans MD 200 [facility] [place] [address] 08/03/2024 4:00 PM EST Office Visit Dermatology [facility] [address] [place] [address] Saran Knutson PA-C 68 [facility] [place] [address] Health Maintenance Due Date Last Done Comments [...] 5:16 PM 10/17/2007 5:01 PM Care Teams Purler Relationship Specialty Start Date End Date Endy [place] DO PCP - General Family Medicine 07/13/18 documented as of this encounter
--- OUTSIDE RECORDS SUMMARY | 2024-05-02 15:41 | External Medical Summary | Summary of Care ---
Author Name Unknown Organization [facility] Address [address] [facility] [place] [address] Phone [phone] Care Team Providers Care Solution Spec Name Role Phone Lizeth, Endy Mora DO Primary Care Provider [phone] [phone] Reason for Visit * Reason Onset Date Comments Test Results 04/20/2024 Dr. Evans Encounter Details Date Type Department Care Team (Late st Contact Info) Description 04/20/2024 Telephone Hematology/Oncology [facility] [place] [address] [place] [address] Sandra Evans MD [address] [place] [address] Test Results (Dr. Evans ) Allergies Active [...] suspected opioid overdose. Seek immediate medical attention. https://www.Axios Mobile Assets Corporationu be.com/watch?v=v2 [email or web address] Active Prochlorperazine Maleate 5 MG Oral Tablet [...] morning and 1 Tablet before bedtime. Active Nmjbkmijyf-WIGP-Ebabb ine 50-325-40 MG Oral Tablet (Fioricet) TAKE [...] her lab results. Please contact pt at [phone]. Thank you. * Telephone Encounter - Ann [...] 04/23/2024 11:20 AM EDT Office Visit Hepatology [facility] [address] [place] [address] Hilda Calvert DO [address] [place] [address] 06/02/2024 9:00 AM EDT Office Visit Hepatology [facility] [address] [place] [address] Hilda Calvert DO [address] [place] [address] 06/08/2024 8:00 AM EDT Office Visit Hematology/Oncology [facility] [place] [address] [place] [address] Sandra Evans MD [address] [facility] [place] [address] 08/03/2024 4:00 PM EST Office Visit Dermatology [facility] 68 [facility] [place] [address] Saran Knutson PA-C 68 [place] [address] Health Maintenance Due Date Last Done Comments [...] 5:16 PM 10/17/2007 5:01 PM Care Teams Solution Spec Relationship Specialty Start Date End Date Endy [place] DO PCP - General Family Medicine 07/13/18 documented as of this encounter
--- OUTSIDE RECORDS SUMMARY | 2024-05-02 15:41 | External Medical Summary | Summary of Care ---
Author Name Unknown Organization [facility] Address [address] [facility] [place] [address] Phone [phone] Care Team Providers Care Turntable Man Name Role Phone Lizeth, Endy Moar DO Primary Care Provider [phone] [phone] Reason for Visit * Reason Onset Date Comments Test Results 04/20/2024 Dr. Evans Encounter Details Date Type Department Care Team (Late st Contact Info) Description 04/20/2024 Telephone Hematology/Oncology [facility] [place] [address] [place] [address] Sandra Evans MD [address] [place] [address] Test Results (Dr. Evans ) Allergies Active [...] suspected opioid overdose. Seek immediate medical attention. https://www.JobSpiceu be.com/watch?v=v2 [email or web address] Active Prochlorperazine Maleate 5 MG Oral Tablet [...] morning and 1 Tablet before bedtime. Active Dahhoxziwr-WEKX-Txras ine 50-325-40 MG Oral Tablet (Fioricet) TAKE [...] Evans's routing comment: "Agree" Faxed order to [facility]/ central scheduling. * Telephone Encounter - Cassie Shelton RN - 04/22/2024 1:07 PM EDT Received referral message: "Monoferric is non preferred with [employer]. Preferred meds are : NA ferric Gluc,Ferrlecit Msg to clinic to update if they can use one of the preferred. " Last time patient received iron, wanted to get venofer at [facility] since she has transportation issues and goes there 2x/week for paracentesis anyhow. Dr Evans: are you ok with us arranging venofer x4 at [facility] again? If so, can prep order for you to sign when you come in next week * Telephone Encounter - Ann Ball LPN - 04/21/2024 12:50 PM EDT Order received for Monoferric, [place] plan built and routed to provider, Awaiting prior authorization before scheduling patient. * Telephone Encounter - Ann Ball LPN - 04/20/2024 3:15 PM EDT Please see TE from 04/08/2024 * Telephone Encounter - Estrellita Smalls OSA - 04/20/2024 2:52 PM EDT Patient called to speak with a nurse about her lab results. Please contact pt at [phone]. Thank you. * Telephone Encounter - Ann [...] 04/23/2024 11:20 AM EDT Office Visit Hepatology, [facility] [address] [place] [address] Hilda Calvert DO [address] [place] [address] 06/02/2024 9:00 AM EDT Office Visit Hepatology, [facility] [address] [place] [address] Hilda Calvert DO [address] [place] [address] 06/08/2024 8:00 AM EDT Office Visit Hematology/Oncology [facility] 200 [facility] [place] [address] Sandra Evans MD 200 [facility] [place] [address] 08/03/2024 4:00 PM EST Office Visit Dermatology [facility] [address] [place] [address] Saran Knutson PA-C [address] [place], [place] [phone] Health Maintenance Due Date Last Done Comments [...] 5:16 PM 10/17/2007 5:01 PM Care Teams Turntable Man Relationship Specialty Start Date End Date Endy [place] DO PCP - General Family Medicine 07/13/18 documented as of this encounter
--- OUTSIDE RECORDS SUMMARY | 2024-05-02 15:41 | External Medical Summary | Summary of Care ---
Author Name Unknown Organization [facility] Address [address] [place] [address] Phone [phone] Care Team Providers Care Tool Keeper Name Role Phone Endy [place] DO Primary Care Provider +1 [phone] Encounter Details Date Type Department Care Team (Late st Contact Info) Description 04/20/2024 Orders Only Hematology/Oncology, [facility] [address] [place], [place] [phone] Sandra Evans MD [address] [place] [address] Iron deficiency anemia, unspecified iron deficiency anemia type*; RLS (restless legs syndrome) Allergies Active Allergy Reactions Criticality Noted Date [...] overdose. Seek immediate medical attention. https://www.youtu [email or web address]/watch?v=[email or web address] Active Prochlorperazine Maleate 5 MG Oral Tablet [...] morning and 1 Tablet before bedtime. Active Sxnadrklej-QNOS-Nmbyd ine 50-325-40 MG Oral Tablet (Fioricet) TAKE [...] Bumetanide 1 MG Oral Tablet (Bumex)Indications:Li jean carlso cirrhosis secondary to nonalcoholic steatohepatitis (GILLESPIE) (HCC) [...] 04/23/2024 11:20 AM EDT Office Visit Hepatology [facility] [address] [place] [address] Hilda Calvert DO [address] [place] [address] 06/02/2024 9:00 AM EDT Office Visit Hepatology [facility] [address] [place] [address] Hilda Calvert DO [address] [place] [address] 06/08/2024 8:00 AM EDT Office Visit Hematology/Oncology [employer] 200 [facility] [place] [phone] Sandra Evans MD 200 [facility] [place] [address] 08/03/2024 4:00 PM EST Office Visit Dermatology [facility] [address] [place] [address] Saran Knutson PA-C [address] [place] [address] Health Maintenance Due Date Last [...] anemia, unspecified iron deficiency anemia type- Primary RLS (restless legs syndrome) Restless legs syndrome (RLS) documented in this encounter Advance Directives * Full Code (Latest Code Status on File) Date Activated Date Inactivated Comments 10/15/2007 5:16 PM 10/17/2007 5:01 PM Care Teams Tool Keeper Relationship Specialty Start Date End Date Endy [place] DO PCP - General Family Medicine 07/13/18 documented as of this encounter
--- OUTSIDE RECORDS SUMMARY | 2024-05-02 15:42 | External Medical Summary | Summary of Care ---
Author Name Unknown Organization [facility] Address [address] [facility] [place] [address] Phone [phone] Care Team Providers Care Radio Division Captain Name Role Phone Lizeth, Endy Mora DO Primary Care Provider +1 -[phone] Reason for Visit * Reason Onset Date Comments Test Results 04/20/2024 Dr. Evans Encounter Details Date Type Department Care Team (Late st Contact Info) Description 04/20/2024 Telephone Hematology/Oncology [facility] [place] [address] [place] [address] Sandra Evans MD [address] [place] [address] Test Results (Dr. Evans ) Allergies Active [...] suspected opioid overdose. Seek immediate medical attention. [email or web address] [email or web address]?v=[email or web address] Active Prochlorperazine Maleate 5 MG Oral Tablet [...] morning and 1 Tablet before bedtime. Active Hqksszvhkp-HRBC-Bhiii ine 50-325-40 MG Oral Tablet (Fioricet) TAKE [...] encounter Miscellaneous Notes * Telephone Encounter - Estrellita Smalls OSA - 04/20/2024 2:52 PM EDT Patient called to speak with a nurse about her lab results. Please contact pt at [phone]. Thank you. * Telephone Encounter - Ann [...] 04/23/2024 11:20 AM EDT Office Visit Hepatology, [facility] [address] [place] [address] Hilda Calvert DO [address] [place] [address] 06/02/2024 9:00 AM EDT Office Visit Hepatology [facility] [address] [place] [address] Hilda Calvert DO [address] [place] [address] 06/08/2024 8:00 AM EDT Office Visit Hematology/Oncology [facility] [address] [facility] [place] [address] Sandra Evans MD [address] [facility] [place] [address] 08/03/2024 4:00 PM EST Office Visit Dermatology [facility] [address] [place] [address] Saran Knutson PA-C [address] [place] [address] Health Maintenance Due Date Last Done Comments [...] Additional history exists Lipid Panel 10/23/2028 10/24/2023, 0103/2024, 03/05/2017, Additional history exists Pneumococcal Vaccine: Pediatrics [...] 5:16 PM 10/17/2007 5:01 PM Care Teams Radio Division Captain Relationship Specialty Start Date End Date Endy Stanley DO PCP - General Family Medicine 07/13/18 documented as of this encounter
--- OUTSIDE RECORDS SUMMARY | 2024-05-02 15:42 | External Medical Summary ---
Author Name Unknown Address Unknown Organization K01:[facility] [place] [address] [place] [address] Laboratory Report Ordering Provider Test Date Status TARA ASCENCIO 04/16/2024 12:33:20 Final Twice a week before paracent esis

Warfarin Therapy
INR: 2.0-3.0 conventional anticoagulation
INR: 2.5-3.5 high intensity anticoagulation Observation Date Value Abnormality Reference (Units ) Status PT 04/16/2024 12:33:20 16.8 Above high normal 11 .6-15.2 (seconds) Final INR 04/16/2024 12:33:20 1.4 Above high normal 0. 8-1.2 Final Performing Location [facility] [place] [address] [place] [address]
--- OUTSIDE RECORDS SUMMARY | 2024-05-02 15:42 | External Medical Summary ---
Author Name Unknown Address Unknown Organization K01:LAB[facility]ATORY [place] [address] [place] [address] Laboratory Report Ordering Provider Test Date Status DALJIT LARSON 04/16/2024 12:33:20 Final Observation Date Value Abnormality Reference (Units ) Status Retic, % (auto) 04/16/2024 12:33:20 2.51 Above high normal 0.80-1.90 (%) Final Reticulocytes, Absolute 04/16/2024 12:33:20 90.6 31.3-100.1 (K/uL) Final Reticulocyte fraction, immature 04/16/2024 12:33:20 12.9 2.5-20.6 (%) Final Reticulocyte HGB 04/16/2024 12:33:20 24.4 Below low normal 29.7-37.4 (pg) Final Performing Location [facility]ORY [facility] [place] - [facility] [place][note 2] [address] [facility] [place] [address]
--- OUTSIDE RECORDS SUMMARY | 2024-05-02 15:42 | External Medical Summary ---
Author Name Unknown Address Unknown Organization K01:[facility] [place] [address] [facility] [place] [address] Laboratory Report Ordering Provider Test Date Status DALJIT LARSON 04/16/2024 12:33:20 Final Observation Date Value Abnormality Reference (Units ) Status SYNC LEUKOCYTES IN BLOOD BY AUTOMATED COUNT 04/16/2024 12:33:20 4.15 4.00-10.80 (K/uL) Final Segs 04/16/2024 12:33:20 70.3 40.0-75.0 (%) Final Lymphs % 04/16/2024 12:33:20 9.2 Below low normal 18.0-42.0 (%) Final Monos 04/16/2024 12:33:20 11.3 Above high normal 1.0-11.0 (%) Final Eosinophils 04/16/2024 12:33:20 7.7 Above high normal 0.0-6.0 (%) Final Basos 04/16/2024 12:33:20 1.0 0.0-2.0 (%) Final Immature Granulocyte, Percent 04/16/2024 12:33:20 0.5 0.0-2.0 (%) Final Absolute Segs 04/16/2024 12:33:20 2.92 1.80-7.70 (K/uL) Final Lymphs, absolute 04/16/2024 12:33:20 0.38 Below low normal 1.00-4.80 (K/ul) Final Monos, Abs 04/16/2024 12:33:20 0.47 0.00-1.10 (K/uL) Final Eos, Abs 04/16/2024 12:33:20 0.32 0.00-0.70 (K/uL) Final Basos, Abs 04/16/2024 12:33:20 0.04 0.00-0.20 (K/uL) Final Immature Granulocytes, Number 04/16/2024 12:33:20 0.02 0.00-0.20 (K/uL) Final Performing Location [facility] [place] - [facility] [address] [place], [place] [address]
--- OUTSIDE RECORDS SUMMARY | 2024-05-02 15:42 | External Medical Summary | Summary of Care ---
Author Name Unknown Organization [facility] Address [address] [facility] [place] [address] Phone [phone] Care Team Providers Care Director Patient Financial Services Name Role Phone Endy Stanley DO Primary Care Provider +1 [phone] Encounter Details Date Type Department Care Team (Late st Contact Info) Description 04/16/2024 Orders Only Gastroenterology, [facility] [address] [place] [address] Hilda Calvert DO [address] [place] [address] 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); Ascites Allergies Active Allergy Reactions Criticality Noted Date Comments Codeine Hives 07/18/2012 Metformin Abdominal pain Low 03/30/2013 documented as of this encounter (statuses as of 04/16/2024) Medications Medication Sig Dispensed Refills Start Date [...] suspected opioid overdose. Seek immediate medical attention. https://www.Bonushu [email or web address]/watch?v=[email or web address] [email or web address] Active Prochlorperazine Maleate 5 MG Oral Tablet [...] morning and 1 Tablet before bedtime. Active Myekxreqta-YJXQ-Eevtc ine 50-325-40 MG Oral Tablet (Fioricet) TAKE [...] as of this encounter (statuses as of 04/16/2024) Active Problems Problem Noted Date Diagnosed Date [...] as of this encounter (statuses as of 04/16/2024) Resolved Problems Problem Noted Date Diagnosed Date [...] as of this encounter (statuses as of 04/16/2024) Immunizations Name Administration Dates Next Due COVID-19, [...] 04/23/2024 11:20 AM EDT Office Visit Hepatology, [facility] [address] [place] [address] Hilda Calvert, 132 [place] [address] 06/02/2024 9:00 AM EDT Office Visit Hepatology [facility] [address] [place] [address] Hilda Calvert DO [address] [place] [address] 06/08/2024 8:00 AM EDT Office Visit Hematology/Oncology [place] [address] [facility] [place] [phone] Sandra Evans MD 200 [facility] [place] [address] 08/03/2024 4:00 PM EST Office Visit Dermatology [facility] [address] [place] [phone] Saran Knutson PA-C [address] [place] [address] Health Maintenance Due Date Last Done Comments [...] 09/01/2023, 04/26, 12/19/2016, Additional history exists GFR 04/09/2025 04/09/2024, 02/22, 03/02/2024, Additional history exists Lipid Panel 10/23/2028 [...] PM 10/17/2007 5:01 PM Care Teams Director Patient Financial Services Relationship Specialty Start Date End Date Endy Stanley DO PCP - General Family Medicine 07/13/18 documented as of this encounter
--- OUTSIDE RECORDS SUMMARY | 2024-05-02 15:42 | External Medical Summary | Summary of Care ---
Author Name Unknown Organization [facility] Address [address] [facility] [place] [address] Phone [phone] Care Team Providers Care Sheep Herder Name Role Phone Endy Stanley DO Primary Care Provider +1 [phone] Encounter Details Date Type Department Care Team (Late st Contact Info) Description 04/20/2024 Telephone Hepatology, [facility] [address] [place] [address] Hilda Calvert DO [address] [place] [address] Allergies Active Allergy Reactions Criticality Noted Date [...] 03/04/2018 Active lactulose (CONSTULOSE) 10 GM/15ML solutionIndications:N LSIET (nonalcoholic steatohepatitis),Bili krista cirrhosis (HCC) Take 30 [...] suspected opioid overdose. Seek immediate medical attention. https://www.JAZD Markets.com/watch?v=v2 1mOlq8VaN Active Prochlorperazine Maleate 5 MG Oral Tablet [...] morning and 1 Tablet before bedtime. Active Dovdbffmtm-VVUR-Qxknd ine 50-325-40 MG Oral Tablet (Fioricet) TAKE [...] Miscellaneous Notes * Telephone Encounter - Hilda Calvert, - 04/20/2024 2:02 PM EDT Please let [...] 04/23/2024 11:20 AM EDT Office Visit Hepatology [facility] [address] [place] [address] Hilda Calvert DO [address] [place] [address] 06/02/2024 9:00 AM EDT Office Visit Hepatology [facility] [address] [place] [address] Hilda Calvert DO [address] [place] [address] 06/08/2024 8:00 AM EDT Office Visit Hematology/Oncology [place] [address] [place] [address] Sandra Evans MD [address] [place] [address] 08/03/2024 4:00 PM EST Office Visit Dermatology [facility] [address] [facility] [place] [phone] Saran Knutson PA-C [address] [place] [address] Health Maintenance Due Date Last Done Comments [...] 5:16 PM 10/17/2007 5:01 PM Care Teams Sheep Herder Relationship Specialty Start Date End Date Endy Stanley DO PCP - General Family Medicine 07/13/18 documented as of this encounter
--- OUTSIDE RECORDS SUMMARY | 2024-05-02 15:42 | External Medical Summary ---
Author Name Unknown Address Unknown Organization K01:LABORATORY [facility] [place] - [address] [facility] [place] [address] Laboratory Report Ordering Provider Test Date Status DALJIT LARSON 04/16/2024 12:33:20 Final Observation Date Value Abnormality Reference (Units ) Status BUN 04/16/2024 12:33:20 13 6-20 (mg/dL) Final Creatinine 04/16/2024 12:33:20 1.0 0.5-1.0 (mg/dL) Final Glomerular filtration rate/1.73 sq M.predicted [Volume Rate/Area] in Serum, Plasma or Blood by Creatinine-based formula (CKD-EPI) 04/16/2024 12:33:20 73 >=60 (mL/min) Final eGFR is calculated based on the CKD-EPI 2020 equation. Sodium 04/16/2024 12:33:20 138 135-146 (m mol/L) Final Potassium 04/16/2024 12:33:20 3.0 Below low normal 3.5 -5.1 (mmol/L) Final Cl 04/16/2024 12:33:20 95 Below low normal 98- 107 (mmol/L) Final CO2 04/16/2024 12:33:20 32 22-32 (mmo l/L) Final Anion gap 04/16/2024 12:33:20 11 7-15 (mmol /L) Final Glucose 04/16/2024 12:33:20 134 Above high normal 70 -120 (mg/dL) Final Albumin 04/16/2024 12:33:20 3.8 3.8-5.0 (g /dL) Final AST (Aspartate aminotransferase) 04/16/2024 12:33:20 90 Above high normal 10-35 (U/L) Final Alk Phos 04/16/2024 12:33:20 106 35-130 (U/ L) Final Bilirubin, Total 04/16/2024 12:33:20 1.4 Above high no rmal <=1.2 (mg/dL) Final Calcium 04/16/2024 12:33:20 8.9 8.4-10.2 ( mg/dL) Final Protein 04/16/2024 12:33:20 6.4 6.0-8.3 (g /dL) Final ALT (Alanine aminotransferase) 04/16/2024 12:33:20 43 Above high normal 10-35 (U/L) Final Performing Location LAB[facility]ATORY [facility] [place] - [address] [facility] [address]
--- OUTSIDE RECORDS SUMMARY | 2024-05-02 15:42 | External Medical Summary | Summary of Care ---
Author Name Unknown Organization [facility] Address [address] [place] [address] Phone [phone] Care Team Providers Care Community Support Worker Name Role Phone Lizeth Endy Mora DO Primary Care Provider +1 -[phone] Reason for Visit * Reason Onset Date Comments Lab Draw Only 04/08/2024 Nathan Encounter Details Date Type Department Care Team (Late st Contact Info) Description 04/08/2024 Telephone Hematology/Oncology [facility] [address] [place] [address] Services, Scheduling [address] [place] [address] Lab Draw Only (Nathan) Allergies Active Allergy [...] suspected opioid overdose. Seek immediate medical attention. https://www.[email or web address]/watch?v=[email or web address] Active Prochlorperazine Maleate 5 MG Oral Tablet [...] morning and 1 Tablet before bedtime. Active Omxdyogkxo-QNGC-Upwri ine 50-325-40 MG Oral Tablet (Fioricet) TAKE [...] She states that she is going to [facility] lab today. Called [facility] medical records and spoke to Estrellita. Asked them to fax ER records to our office. * Telephone Encounter - Ann Ball LPN - 04/15/2024 10:39 AM EDT Attempted to contact [facility] Medical records for lab results, on hold > 5 min, unable to leave a voicemail. Will attempt again at a later time * Telephone Encounter - Forrest Couch RN - 04/14/2024 8:40 AM EDT Ildefonso- please call [facility] CLARISSA this afternoon to request lab records. I checked their system this morning but no labs other than 04/09 were seen. * Telephone Encounter - Cassie Shelton RN - 04/09/2024 3:27 PM EDT Called patient. She gets a paracentesis at [facility] twice a week. Her next paracentesis is Friday. Advised her lab orders are placed. She states that the person in IR is able to pull the orders from theYummly system. She states that she has a [...] OSA - 04/08/2024 12:11 PM EDT Nathan pt-Inesha D. Marla Pt is calling regarding labs she wants to get done possibly. Pt is wondering if she could have the labs drawn today? Can you please call pt back and let her know at [phone] Thank you! documented in this encounter Plan of Treatment Upcoming Encounters Date Type Department Care Team (Late st Contact Info) Description 04/23/2024 11:20 AM EDT Office Visit Hepatology, [facility] [address] [place] [address] Hilda Calvert, DO [address] [place] [address] 06/02/2024 9:00 AM EDT Office Visit Hepatology, [facility] [address] [place] [address] Hilda Calvert, DO [address] [place] [address] 06/08/2024 8:00 AM EDT Office Visit Hematology/Oncology [facility] [address] [place] [phone] Sandra Evans MD [address] [facility] [place], [place] [address] 08/03/2024 4:00 PM EST Office Visit Dermatology [address] [phone] Saran Knutson PA-C [address] [place] [address] Scheduled Orders Name Type Priority Associated Diagnoses Orde r Schedule CBC WITH WBC DIFFERENTIAL Lab STAT Iron deficiency anemia, unspecified iron deficiency anemia type Expected: 04/09/2024 (Approximate), Expires: 04/09/2025 FERRITIN Lab STAT Iron deficiency anemia, unspecified iron deficiency anemia type Expected: 04/09/2024 (Approximate), Expires: 04/09/2025 IRON SCREEN, INCLUDING TIBC Lab STAT Iron deficiency anemia, unspecified iron deficiency anemia type Expected: 04/09/2024 (Approximate), Expires: 04/09/2025 Health Maintenance Due Date Last Done Comments Diabetic Eye Exam 1998 Hepatitis B Vaccine (1 of 3 - 19+ 3-dose series) 12/09/1999 HPV/Co-Test 2010 Cervical Cancer Screening 09/08/2011 Pap Smear 09/08/2011 09/08/2008, 07/25, 01/13/2006, Additional history exists Albumin/Creatinine Ratio 11/25/2015 11/24/2014, 08/02/2013 Depression Monitoring 10/15/2017 10/15/2016 Diabetic Foot Exam [...] 5:16 PM 10/17/2007 5:01 PM Care Teams Community Support Worker Relationship Specialty Start Date End Date Endy Stanley DO PCP - General Family Medicine 07/13/18 documented as of this encounter
--- OUTSIDE RECORDS SUMMARY | 2024-05-02 15:42 | External Medical Summary | Summary of Care ---
Author Name Unknown Organization [facility] Address [address] [place] [address] Phone [phone] Care Team Providers Care Political Analyst Name Role Phone Endy Stanley DO Primary Care Provider +1 -[phone] Reason for Visit * Reason Onset Date Comments Appointment 04/20/2024 Encounter Details Date Type Department Care Team (Late st Contact Info) Description 04/20/2024 Telephone Gastroenterology, [facility] 132 [facility] [place] [address] Specified, [facility] [address] [place] [address] Appointment Allergies Active Allergy Reactions Criticality Noted Date [...] suspected opioid overdose. Seek immediate medical attention. https://www.better.u Better World Books.com/watch?v=v2 5pQav7AiS Active Prochlorperazine Maleate 5 MG Oral Tablet [...] morning and 1 Tablet before bedtime. Active Pftawbzvls-DDNU-Enyzx ine 50-325-40 MG Oral Tablet (Fioricet) TAKE [...] encounter Miscellaneous Notes * Telephone Encounter - Trinh Ruff OSA - 04/20/2024 10:12 AM EDT Ir order placed for pt place call and schedule pt for an appt. documented in this encounter Plan of Treatment Upcoming Encounters Date Type Department Care Team (Late st Contact Info) Description 04/23/2024 11:20 AM EDT Office Visit Hepatology, [facility] [address] [place] [address] Hilda Calvert DO [address] [place] [address] 06/02/2024 9:00 AM EDT Office Visit Hepatology, [facility] [address] [place] [address] Hilda Calvert DO [address] [place] [address] 06/08/2024 8:00 AM EDT Office Visit Hematology/Oncology [facility] [address] [place] [address] Sandra Evans MD [address] [place] [address] 08/03/2024 4:00 PM EST Office Visit Dermatology [facility] [address] [place] [phone] Saran Knutson PA-C [address] [place] [address] Health Maintenance Due Date Last Done Comments [...] 5:16 PM 10/17/2007 5:01 PM Care Teams Political Analyst Relationship Specialty Start Date End Date Endy Stanley DO PCP - General Family Medicine 07/13/18 documented as of this encounter
--- OUTSIDE RECORDS SUMMARY | 2024-05-02 15:42 | External Medical Summary | Summary of Care ---
Author Name Unknown Organization [facility] Address [address] [facility] [place] [address] Phone [phone] Care Team Providers Care Senior Informatica Developer Name Role Phone Lizeth Endy Mora DO Primary Care Provider +1 -[phone] Reason for Visit * Reason Onset Date Comments Test Results 04/20/2024 Encounter Details Date Type Department Care Team (Late st Contact Info) Description 04/20/2024 Telephone Hematology/Oncology [place] 200 [facility] [place] [address] Sandra Evans MD 200 [facility] [place] [address] Test Results Allergies Active Allergy Reactions Criticality Noted Date [...] suspected opioid overdose. Seek immediate medical attention. https://www.Flyru be.com/watch?v=[email or web address] 5wZjc7HuE Active Prochlorperazine Maleate 5 MG Oral Tablet [...] morning and 1 Tablet before bedtime. Active Zkwfoomzqk-UTUG-Cwsiw ine 50-325-40 MG Oral Tablet (Fioricet) TAKE [...] 04/23/2024 11:20 AM EDT Office Visit Hepatology, [facility] [address] [place] [address] Hilda Calvert DO [address] [place] [address] 06/02/2024 9:00 AM EDT Office Visit Hepatology, [facility] [address] [place] [address] Hilda Calvert DO [address] [place] [address] 06/08/2024 8:00 AM EDT Office Visit Hematology/Oncology [facility] 200 [facility] [place] [address] Sandra Evans MD 200 [facility] [place] [address] 08/03/2024 4:00 PM EST Office Visit Dermatology [facility] 68 [place] [address] Saran Knutson PA-C [address] [place] [address] Health Maintenance Due Date Last Done Comments [...] PM 10/17/2007 5:01 PM Care Teams Senior Informatica Developer Relationship Specialty Start Date End Date Endy Stanley DO PCP - General Family Medicine 07/13/18 documented as of this encounter
--- OUTSIDE RECORDS SUMMARY | 2024-05-02 15:42 | External Medical Summary | Summary of Care ---
Author Name Unknown Organization [facility] Address [address] [place] [address] Phone [phone] Care Team Providers Care Long Term Name Role Phone Lizeth Endy Mora DO Primary Care Provider +1 -[phone] Reason for Visit * Reason Onset Date Comments Lab Draw Only 04/08/2024 Nathan Encounter Details Date Type Department Care Team (Late st Contact Info) Description 04/08/2024 Telephone Hematology/Oncology [facility] [address] [place] [address] Services, Scheduling [address] [place] [address] Lab Draw Only (Nathan) Allergies Active Allergy [...] suspected opioid overdose. Seek immediate medical attention. https://www.Lingotek.com/watch?v=v2 [email or web address] Active Prochlorperazine Maleate 5 MG Oral Tablet [...] morning and 1 Tablet before bedtime. Active Ahadmkbpay-RMAD-Fjxze ine 50-325-40 MG Oral Tablet (Fioricet) TAKE [...] encounter Miscellaneous Notes * Telephone Encounter - Sherin Muñiz RN [...] She states that she is going to [facility] lab today. Called [facility] medical records and spoke to Estrellita. Asked them to fax ER records to our office. * Telephone Encounter - Ann Ball LPN - 04/15/2024 10:39 AM EDT Attempted to contact [facility] Medical records for lab results, on hold > 5 min, unable to leave a voicemail. Will attempt again at a later time * Telephone Encounter - Forrest Couch RN - 04/14/2024 8:40 AM EDT Ildefonso- please call [facility] CLARISSA this afternoon to request lab records. I checked their system this morning but no labs other than 04/09 were seen. * Telephone Encounter - Cassie Shelton RN - 04/09/2024 3:27 PM EDT Called patient. She gets a paracentesis at [facility] twice a week. Her next paracentesis is Friday. Advised her lab orders are placed. She states that the person in IR is able to pull the orders from theI AM AT system. She states that she has a [...] pt back and let her know at [phone] Thank you! documented in this encounter Plan of Treatment Upcoming Encounters Date Type Department Care Team (Late st Contact Info) Description 04/23/2024 11:20 AM EDT Office Visit Hepatology, [facility] 132 [facility] [place] [address] Hilda Calvert DO 132 [facility] [place] [address] 06/02/2024 9:00 AM EDT Office Visit Hepatology, [facility] [address] [place] [address] Hilda Calvert DO [address] [facility] [place] [address] 06/08/2024 8:00 AM EDT Office Visit Hematology/Oncology [facility] [place] [address] [place] [address] Sandra Evans MD [address] [place] [address] 08/03/2024 4:00 PM EST Office Visit Dermatology [facility] 68 [place] [address] Saran Knutson PA-C [address] [place] [phone] Health Maintenance Due Date Last Done Comments [...] 5:16 PM 10/17/2007 5:01 PM Care Teams Long Term Relationship Specialty Start Date End Date Endy Stanley DO PCP - General Family Medicine 07/13/18 documented as of this encounter
--- OUTSIDE RECORDS SUMMARY | 2024-05-02 15:42 | External Medical Summary | Summary of Care ---
Author Name Unknown Organization [facility] Address [address] [facility] [address] Phone [phone] Care Team Providers Care Pipe Fitter Supervisor Name Role Phone Lizeth Endy Mora DO Primary Care Provider +1 -[phone] Reason for Visit * Reason Comments Outpatient Testing Encounter Details Date Type Department Care Team (Latest Contact Info) Description 04/16/2024 1:40 PM EDT Laboratory Laboratory, [place] [address] [place] [address] [place] [address] [place] [address] [employer] Other*[id number]; 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); Cirrhosis of liver (HCC); Other cirrhosis of liver (HCC); GILLESPIE (nonalcoholic steatohepatitis); Thrombocytopenia (HCC); Hypokalemia; Iron deficiency anemia; Iron deficiency anemia, unspecified iron deficiency anemia [...] overdose. Seek immediate medical attention. https://www.youtu be.com/watch?v=v2 [email or web address] Active Prochlorperazine Maleate 5 MG Oral Tablet [...] morning and 1 Tablet before bedtime. Active Jbythurdsf-CRGH-Noevc ine 50-325-40 MG Oral Tablet (Fioricet) TAKE [...] 04/23/2024 11:20 AM EDT Office Visit Hepatology, [facility] [address] [address] Hilda Calvert, [address] [place] [address] 06/02/2024 9:00 AM EDT Office Visit Hepatology, [facility] [address] [place] [address] Hilda Calvert DO [address] [place] [address] 06/08/2024 8:00 AM EDT Office Visit Hematology/Oncology [facility] [address] [place] [address] Sandra Evans MD [address] [place] [address] 08/03/2024 4:00 PM EST Office Visit Dermatology [address] [phone] Saran Knutson PA-C [address] [place] [address] Pending Results Name Type Priority Associated Diagnoses Date /Time MYCODE SUBSEQUENT ADULT Lab Routine MyCode Research Other*[id number] 04/16/2024 12:33 PM EDT PT INR Lab Routine 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) 04/16/2024 12:33 PM EDT COMPREHENSIVE METABOLIC PANEL Lab Routine Other cirrhosis of liver (HCC) GILLESPIE (nonalcoholic steatohepatitis) Thrombocytopenia (HCC) 04/16/2024 12:33 PM EDT CBC WITH WBC DIFFERENTIAL Lab STAT Other cirrhosis of liver (HCC) Iron deficiency anemia 04/16/2024 12:33 PM EDT FERRITIN Lab STAT Other cirrhosis of liver (HCC) Iron deficiency anemia 04/16/2024 12:33 PM EDT IRON SCREEN, INCLUDING TIBC Lab STAT Other cirrhosis of liver (HCC) Iron deficiency anemia 04/16/2024 12:33 PM EDT MYCODE SST1 Lab Routine MyCode Research Other*[id number] 04/16/2024 12:33 PM EDT MYCODE SST2 Lab Routine MyCode Research Other*[id number] 04/16/2024 12:33 PM EDT CBC Lab STAT Other cirrhosis of liver (HCC) Iron deficiency anemia 04/16/2024 12:33 PM EDT DIFFERENTIAL, AUTOMATED Lab STAT Other cirrhosis of liver (HCC) Iron deficiency anemia 04/16/2024 12:33 PM EDT APTT Lab Routine 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) 04/16/2024 12:33 PM EDT Health Maintenance Due Date Last Done [...] as of this encounter Visit Diagnoses Diagnosis MyCode Research Other*[id number] 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) Cirrhosis of liver (HCC) Cirrhosis of liver without mention of alcohol Other cirrhosis of liver (HCC) GILLEPSIE (nonalcoholic steatohepatitis) Other chronic nonalcoholic liver disease Thrombocytopenia (HCC) Thrombocytopenia, unspecified Hypokalemia Hypopotassemia Iron deficiency anemia, unspecified iron deficiency anemia type documented in this encounter Advance Directives * Full Code (Latest Code Status on File) Date Activated Date Inactivated Comments 10/15/2007 5:16 PM 10/17/2007 5:01 PM Care Teams Pipe Fitter Supervisor Relationship Specialty Start Date End Date Endy Stanley DO PCP - General Family Medicine 07/13/18 documented as of this encounter
--- OUTSIDE RECORDS SUMMARY | 2024-05-02 15:42 | External Medical Summary | Summary of Care ---
Author Name Unknown Organization [facility] Address [address] [place] [address] Phone [phone] Care Team Providers Care Mailroom Manager Name Role Phone Endy Stanley DO Primary Care Provider +1 [phone] Reason for Visit * Reason Onset Date Comments Advice 04/15/2024 Encounter Details Date Type Department Care Team (Late st Contact Info) Description 04/15/2024 Telephone Hepatology, [facility] 132 [facility] [place] [address] Services, Scheduling [address] [place] [address] Advice Allergies Active Allergy Reactions Criticality Noted [...] suspected opioid overdose. Seek immediate medical attention. https://www.Pluribus Networks.com/watch?v=v2 9kRqs5EyQ Active Prochlorperazine Maleate 5 MG Oral Tablet [...] morning and 1 Tablet before bedtime. Active Yeaffgyyib-IUTO-Nqdcj ine 50-325-40 MG Oral Tablet (Fioricet) TAKE [...] encounter Miscellaneous Notes * Telephone Encounter - Mamie Stevenson OSA - 04/16/2024 12:09 PM EDT Patient called checking status of message from earlier. I let patient know that ED notes were requested, and reminded of 24-48 hours turnaround time. * Telephone Encounter - Adina Andre LPN - 04/15/2024 3:01 PM EDT Phone call placed to [facility]. They will fax recent ED visit. * Telephone Encounter - Adina Andre LPN - 04/15/2024 2:00 PM EDT Spoke with Niesha. She states that she was admitted to [facility] for 2 weeks and was released [...] be seen sooner Caller was transferred to [facility] at the nurse line. documented in this encounter Plan of Treatment Upcoming Encounters Date Type Department Care Team (Late st Contact Info) Description 04/16/2024 1:40 PM EDT Laboratory Laboratory, [place] [address] [phone] [place] Jose [address] [place] [address] 04/23/2024 11:20 AM EDT Office Visit Hepatology, [facility] [address] [address] Hilda Harper, [address] [place] [address] 06/02/2024 9:00 AM EDT Office Visit Hepatology, [facility] [address] [address] Hilda Harper, [address] [place] [address] 06/08/2024 8:00 AM EDT Office Visit Hematology/Oncology [facility] [address] [facility] [place] [phone] Sandra Evans MD [address] [facility] [place] [address] 08/03/2024 4:00 PM EST Office Visit Dermatology [facility] [address] [place] [address] Saran Knutson PA-C [address] [place] [address] Health Maintenance Due Date Last Done Comments [...] 5:16 PM 10/17/2007 5:01 PM Care Teams Mailroom Manager Relationship Specialty Start Date End Date Endy Stanley DO PCP - General Family Medicine 07/13/18 documented as of this encounter
--- OUTSIDE RECORDS SUMMARY | 2024-05-02 15:42 | External Medical Summary ---
Author Name Unknown Address Unknown Organization K01:[place] [facility] [place] [address] [place] [address] Laboratory Report Ordering Provider Test Date Status DALJIT LARSON 04/16/2024 12:33:20 Final Observation Date Value Abnormality Reference (Units ) Status Ferritin 04/16/2024 12:33:20 52 13-150 (ng /mL) Final Postmenopausal women have hi gher ferritin levels than pre-menopausal women. The above reference interval is based on pre-menopausal women. Performing Location LAB[facility]ATORY [facility] - [address] [place] [address]
--- OUTSIDE RECORDS SUMMARY | 2024-05-02 15:42 | External Medical Summary ---
Author Name Unknown Address Unknown Organization K01:[place] [facility] [place] [address] [place] [address] Laboratory Report Ordering Provider Test Date Status DALJIT LARSON 04/16/2024 12:33:20 Final Observation Date Value Abnormality Reference (Units ) Status WBC, Total 04/16/2024 12:33:20 4.15 4.00-10.80 (K/uL) Final RBC 04/16/2024 12:33:20 3.61 3.85-5.15 (M/uL) Final Hemoglobin 04/16/2024 12:33:20 10.0 Below low normal 12.0-15.3 (g/dL) Final HCT 04/16/2024 12:33:20 32.7 Below low normal 36.0-45.2 (%) Final MCV 04/16/2024 12:33:20 90.6 81.5-97.5 (fL) Final MCH 04/16/2024 12:33:20 27.7 27.0-34.0 (pg) Final MCHC 04/16/2024 12:33:20 30.6 32.0-36.0 (g/dL) Final RDW 04/16/2024 12:33:20 17.8 11.5-15.5 (%) Final Platelets 04/16/2024 12:33:20 71 Below low normal 140-400 (K/uL) Final MPV 04/16/2024 12:33:20 11.5 6.6-11.1 (fL) Final Nucleated erythrocytes/100 leukocytes [Ratio] in Blood by Automated count 04/16/2024 12:33:20 0 <=0 (/100 WBCs) Final Performing Location [facility] [facility] [place] [address] [place] [address]
--- OUTSIDE RECORDS SUMMARY | 2024-05-02 15:42 | External Medical Summary ---
Author Name Unknown Address Unknown Organization K01:LABORATORY [facility] - [address] [place] [address] Laboratory Report Ordering Provider Test Date Status CY BETACNOURT 04/16/2024 12:33:20 Final Observation Date Value Abnormality Reference (Units ) Status MYCODE SPECIMEN-SST 04/16/2024 12:33:20 Freezing of extracted DNA, whole blood and/or serum. Final Performing Location [facility] - [address] [place] [address]
--- OUTSIDE RECORDS SUMMARY | 2024-05-02 15:42 | External Medical Summary ---
Author Name Unknown Address Unknown Organization K01:LABORATORY [facility] - [address] [place] [address] Laboratory Report Ordering Provider Test Date Status DALJIT LARSON 04/16/2024 12:33:20 Final Observation Date Value Abnormality Reference (Units ) Status Iron 04/16/2024 12:33:20 39 33-151 (ug/dL) Final Iron-binding capacity 04/16/2024 12:33:20 308 250-425 (ug/dL) Final Transferrin Sat % 04/16/2024 12:33:20 13 Below low normal 15-55 (%) Final Performing Location LABORATORY C - [address] [place] [address]
--- OUTSIDE RECORDS SUMMARY | 2024-05-02 15:42 | External Medical Summary ---
Author Name Unknown Address Unknown Organization K01:[facility] [place] [address] [address] [place] [address] Laboratory Report Ordering Provider Test Date Status TARA ASCENCIO 04/16/2024 12:33:38 Final Twice a week before paracent esis

Anticoagulation may affect testing. Refer to [facility] Catalog for a list of effects. Observation Date Value Abnormality Reference (Units ) Status aPTT panel - Platelet poor plasma 04/16/2024 12:33:38 34 21-38 (seconds) Final Performing Location [facility] [facility] [place] - [facility] [place] [place] [address]
--- OUTSIDE RECORDS SUMMARY | 2024-05-02 15:42 | External Medical Summary | Summary of Care ---
Author Name Unknown Organization [facility] Address [address] [place] [address] Phone [phone] Care Team Providers Care Senior Art Director Name Role Phone Lizeth Endy Mora DO Primary Care Provider +1 [phone] Reason for Visit * Reason Onset Date Comments Lab Draw Only 04/08/2024 Nathan Encounter Details Date Type Department Care Team (Late st Contact Info) Description 04/08/2024 Telephone [facility]ology[facility] [address] [place] [address] Services, Scheduling [address] [place] [address] Lab Draw Only (Nathan) Allergies Active Allergy Reactions Criticality Noted Date Comments Codeine Hives 07/18/2012 Metformin Abdominal pain Low 03/30/2013 documented as of this encounter (statuses as of 04/19/2024) Medications Medication Sig Dispensed Refills Start Date [...] suspected opioid overdose. Seek immediate medical attention. https://www.[email or web address]/watch?v=[email or web address] Active Prochlorperazine Maleate 5 MG Oral Tablet [...] morning and 1 Tablet before bedtime. Active Bfnhecrito-ELIN-Pujfg ine 50-325-40 MG Oral Tablet (Fioricet) TAKE [...] as of this encounter (statuses as of 04/19/2024) Active Problems Problem Noted Date Diagnosed Date [...] as of this encounter (statuses as of 04/19/2024) Resolved Problems Problem Noted Date Diagnosed Date [...] as of this encounter (statuses as of 04/19/2024) Immunizations Name Administration Dates Next Due COVID-19, [...] She states that she is going to [facility] lab today. Called [facility] medical records and spoke to Estrellita. Asked them to fax ER records to our office. * Telephone Encounter - Ann Ball LPN - 04/15/2024 10:39 AM EDT Attempted to contact [facility] Medical records for lab results, on hold > 5 min, unable to leave a voicemail. Will attempt again at a later time * Telephone Encounter - Forrest Couch RN - 04/14/2024 8:40 AM EDT Ildefonso- please call [facility] this afternoon to request lab records. I checked their system this morning but no labs other than 04/09 were seen. * Telephone Encounter - Cassie Shelton RN - 04/09/2024 3:27 PM EDT Called patient. She gets a paracentesis at [facility] twice a week. Her next paracentesis is Friday. Advised her lab orders are placed. She states that the person in IR is able to pull the orders from the[employer] system. She states that she has a [...] pt back and let her know at [phone] Thank you! documented in this encounter Plan of Treatment Upcoming Encounters Date Type Department Care Team (Late st Contact Info) Description 04/23/2024 11:20 AM EDT Office Visit Hepatology, [facility] [address] [place] [address] Hilda Calvert, [address] [place] [address] 06/02/2024 9:00 AM EDT Office Visit Hepatology, [facility] [address] [place] [address] Hilda Calvert, [address] [place] [address] 06/08/2024 8:00 AM EDT Office [facility] [address] [place] [phone] Sandra Evans MD [address] [facility] [place] [address] 08/03/2024 4:00 PM EST Office Visit Dermatology [facility] [address] [place] [phone] Saran Knutson PA-C [address] [place] [address] Health Maintenance Due Date Last Done Comments [...] PM 10/17/2007 5:01 PM Care Teams Senior Art Director Relationship Specialty Start Date End Date Endy Stanley DO PCP - General Family Medicine 07/13/18 documented as of this encounter
--- OUTSIDE RECORDS SUMMARY | 2024-05-02 15:42 | External Medical Summary ---
Author Name Unknown Address Unknown Organization K01:[place] [facility] [place] [address] [place] [address] Laboratory Report Ordering Provider Test Date Status TARA ASCENCIO 04/16/2024 12:33:20 Final Observation Date Value Abnormality Reference (Units ) Status Bilirubin, Direct 04/16/2024 12:33:20 0.5 Above high normal 0.0-0.3 (mg/dL) Final Performing Location LABORATORY C - [address] [place] [address]
--- OUTSIDE RECORDS SUMMARY | 2024-05-02 15:42 | External Medical Summary ---
Author Name Unknown Address Unknown Organization K01:[place] [facility] [place] [address] [address] Laboratory Report Ordering Provider Test Date Status CY BETANCOURT 04/16/2024 12:33:20 Final Observation Date Value Abnormality Reference (Units ) Status MYCODE SPECIMEN-SST 04/16/2024 12:33:20 Freezing of extracted DNA, whole blood and/or serum. Final Performing Location [facility] - [address] [place] [address]
--- OUTSIDE RECORDS SUMMARY | 2024-05-02 15:43 | External Medical Summary | Summary of Care ---
Author Name Unknown Organization [facility] Address [address] [facility] [place] [address] Phone [phone] Care Team Providers Care Marketing Development Specialist Name Role Phone Endy Stanley DO Primary Care Provider +1 [phone] Encounter Details Date Type Department Care Team (Late st Contact Info) Description 04/13/2024 Orders Only PATIENT PORTAL DO NOT DELETE THIS DEPT USED BY ASHLEY JORGE [id number] Allergies Active Allergy Reactions Criticality Noted Date Comments Codeine Hives 07/18/2012 Metformin Abdominal pain Low 03/30/2013 documented as of this encounter (statuses as of 04/13/2024) Medications Medication Sig Dispensed Refills Start Date [...] suspected opioid overdose. Seek immediate medical attention. https://www.[email or web address] Therapeuticsu [email or web address]/watch?v=v2 1sAph9VeC Active Prochlorperazine Maleate 5 MG Oral Tablet [...] morning and 1 Tablet before bedtime. Active Hcfxemrcmq-FODP-Qplmr ine 50-325-40 MG Oral Tablet (Fioricet) TAKE [...] as of this encounter (statuses as of 04/13/2024) Active Problems Problem Noted Date Diagnosed Date [...] as of this encounter (statuses as of 04/13/2024) Resolved Problems Problem Noted Date Diagnosed Date [...] as of this encounter (statuses as of 04/13/2024) Immunizations Name Administration Dates Next Due COVID-19, [...] 04/23/2024 11:20 AM EDT Office Visit Hepatology [facility] [address] [address] Hilda Calvert DO [address] [place] [address] 06/02/2024 9:00 AM EDT Office Visit Hepatology [facility] [address] [address] Hilda Calvert DO [address] [place] [address] 06/08/2024 8:00 AM EDT Office Visit Hematology/Oncology [facility] [address] [place] [address] Sandra Evans MD 200 [place] [address] 08/03/2024 4:00 PM EST Office Visit Dermatology [facility] [address] [place] [address] Saran Knutson PA-C [address] [place] [address] Health Maintenance Due Date Last Done Comments [...] 5:16 PM 10/17/2007 5:01 PM Care Teams Marketing Development Specialist Relationship Specialty Start Date End Date Endy Stanley DO PCP - General Family Medicine 07/13/18 documented as of this encounter
--- OUTSIDE RECORDS SUMMARY | 2024-05-02 15:43 | External Medical Summary | Summary of Care ---
Author Name Unknown Organization [facility] Address [address] [place] [address] Phone [phone] Care Team Providers Care Paper And Pulp Mill Operator Name Role Phone Endy Stanley DO Primary Care Provider +1 -[phone] Reason for Visit * Reason Onset Date Comments Advice 04/15/2024 Encounter Details Date Type Department Care Team (Late st Contact Info) Description 04/15/2024 Telephone Hepatology, [facility] 132 [facility] [place] [address] Services, Scheduling [address] [place] [address] Advice Allergies Active Allergy Reactions Criticality Noted Date Comments Codeine Hives 07/18/2012 Metformin Abdominal pain Low 03/30/2013 documented as of this encounter (statuses as of 04/15/2024) Medications Medication Sig Dispensed Refills Start Date [...] suspected opioid overdose. Seek immediate medical attention. https://www.Citizen Sports.com/watch?v=v2 1wRlo2QiJ Active Prochlorperazine Maleate 5 MG Oral Tablet [...] morning and 1 Tablet before bedtime. Active Kgprbxqmyp-CHYT-Yfywt ine 50-325-40 MG Oral Tablet (Fioricet) TAKE [...] as of this encounter (statuses as of 04/15/2024) Active Problems Problem Noted Date Diagnosed Date [...] as of this encounter (statuses as of 04/15/2024) Resolved Problems Problem Noted Date Diagnosed Date [...] as of this encounter (statuses as of 04/15/2024) Immunizations Name Administration Dates Next Due COVID-19, [...] Miscellaneous Notes * Telephone Encounter - Adina AndreCHANCE - 04/15/2024 2:00 PM EDT Spoke with Niesha. She states that she was admitted to [facility] for 2 weeks and was released 2 [...] she was leaking from her wound. Cole Greene, PA-C recommended that she see Dr. Harper [...] sooner Caller was transferred to [facility] at the nurse line. documented in this encounter Plan of Treatment Upcoming Encounters Date Type Department Care Team (Late st Contact Info) Description 04/23/2024 11:20 AM EDT Office Visit Hepatology, [facility] [address] [place] [address] Hilda Harper DO [address] [place] [address] 06/02/2024 9:00 AM EDT Office Visit Hepatology, [facility] [address] [place] [address] Hilda Harper DO [address] [place] [address] 06/08/2024 8:00 AM EDT Office Visit Hematology/Oncology [facility] [address] [place] [phone] Sandra Evans MD [address] [place] [address] 08/03/2024 4:00 PM EST Office Visit [address] [phone] Saran Knutson PA-C [address] [place], [place] [address] [address] Health Maintenance Due Date Last Done Comments [...] 5:16 PM 10/17/2007 5:01 PM Care Teams Paper And Pulp Mill Operator Relationship Specialty Start Date End Date Endy Stanley DO PCP - General Family Medicine 07/13/18 documented as of this encounter
--- OUTSIDE RECORDS SUMMARY | 2024-05-02 15:43 | External Medical Summary | Summary of Care ---
Author Name Unknown Organization [facility] Address [address] [place] [address] Phone [phone] Care Team Providers Care Acetylene Torch Operator Name Role Phone Lizeth Endy Mora DO Primary Care Provider +1 -[phone] Reason for Visit * Reason Onset Date Comments Lab Draw Only 04/08/2024 Nathan Encounter Details Date Type Department Care Team (Late st Contact Info) Description 04/08/2024 Telephone Hematology/Oncology [facility] [address] [place] [address] Services, Scheduling [address] [place] [address] Lab Draw Only (Nathan) Allergies Active Allergy [...] suspected opioid overdose. Seek immediate medical attention. https://www.Orgger.com/watch?v=v2 [email or web address] Active Prochlorperazine Maleate 5 MG Oral Tablet [...] morning and 1 Tablet before bedtime. Active Ikicnhxylk-WKQF-Cmnzh ine 50-325-40 MG Oral Tablet (Fioricet) TAKE [...] 04/15/2024 10:39 AM EDT Attempted to contact [facility] Medical records for lab results, on hold > 5 min, unable to leave a voicemail. Will attempt again at a later time * Telephone Encounter - Forrest Couch RN - 04/14/2024 8:40 AM EDT Ildefonso- please call [facility] this afternoon to request lab records. I checked their system this morning but no labs other than 04/09 were seen. * Telephone Encounter - Cassie Shelton RN - 04/09/2024 3:27 PM EDT Called patient. She gets a paracentesis at [facility] twice a week. Her next paracentesis is Friday. Advised her lab orders are placed. She states that the person in IR is able to pull the orders from [facility] system. She states that she has a [...] - 04/08/2024 12:11 PM EDT Nathan pt-Niesha Conleygler Pt is calling regarding labs she wants to get done possibly. Pt is wondering if she could have the labs drawn today? Can you please call pt back and let her know at [phone] Thank you! documented in this encounter Plan of Treatment Upcoming Encounters Date Type Department Care Team (Late st Contact Info) Description 04/23/2024 11:20 AM EDT [facility] [address] [place] [address] Hilda Calvert, [address] [place] [address] 06/02/2024 9:00 AM EDT [facility] [address] [place] [address] Hilda Calvert DO [address] [place] [address] 06/08/2024 8:00 AM EDT Office Visit Hematology/Oncology [facility] [place] [address] [facility] [place] [address] Sandra Evans MD [address] [facility] [place] [address] 08/03/2024 4:00 PM EST Office Visit Dermatology [facility] 68 [place] [address] Saran Knutson PA-C [address] [place] [address] Scheduled Orders Name Type Priority Associated Diagnoses [...] 5:16 PM 10/17/2007 5:01 PM Care Teams Acetylene Torch Operator Relationship Specialty Start Date End Date Endy Stanley DO PCP - General Family Medicine 07/13/18 documented as of this encounter
--- OUTSIDE RECORDS SUMMARY | 2024-05-02 15:43 | External Medical Summary | Summary of Care ---
Author Name Unknown Organization [facility] Address [address] [place] [address] Phone [phone] Care Team Providers Care Scudding Inspector Name Role Phone Endy Stanley DO Primary Care Provider [phone] Reason for Visit * Reason Onset Date Comments Advice 04/15/2024 Encounter Details Date Type Department Care Team (Late st Contact Info) Description 04/15/2024 Telephone Hepatology, [facility] [address] [facility] [place] [address] Services, Scheduling [address] [place] [address] Advice Allergies Active Allergy Reactions Criticality Noted [...] suspected opioid overdose. Seek immediate medical attention. [email or web address]/watch?v=[email or web address] Active Prochlorperazine Maleate 5 MG Oral Tablet [...] morning and 1 Tablet before bedtime. Active Jptnjgdhcw-ARUP-Edhdk ine 50-325-40 MG Oral Tablet (Fioricet) TAKE [...] She states that she was admitted to [facility] for 2 weeks and was released [...] be seen sooner Caller was transferred to [facility] at the nurse line. documented in this encounter Plan of Treatment Upcoming Encounters Date Type Department Care Team (Late st Contact Info) Description 04/23/2024 11:20 AM EDT Office Visit Hepatology, [facility] [address] [place] [address] Hilda Harper DO [address] [place] [address] 06/02/2024 9:00 AM EDT Office Visit Hepatology, [facility] [address] [place] [address] Hilda Harper DO [address] [place] [address] 06/08/2024 8:00 AM EDT Office Visit Hematology/Oncology [facility] [place] [address] [place] [phone] Sandra Evans MD [address] [place] [address] 08/03/2024 4:00 PM EST Office Visit [address] [phone] Saran Knutson PA-C [address] [place], [place] [address] [place] [address] Health Maintenance Due Date Last Done Comments [...] 5:16 PM 10/17/2007 5:01 PM Care Teams Scudding Inspector Relationship Specialty Start Date End Date Endy Stanley DO PCP - General Family Medicine 07/13/18 documented as of this encounter
--- OUTSIDE RECORDS SUMMARY | 2024-05-02 15:43 | External Medical Summary | Summary of Care ---
Author Name Unknown Organization [facility] Address [address] [place] [address] Phone [phone] Care Team Providers Care Workers' Compensation Claims Examiner Name Role Phone Lizeth Endy Mora DO Primary Care Provider [phone] Reason for Visit * Reason Onset Date Comments Lab Draw Only 04/08/2024 Nathan Encounter Details Date Type Department Care Team (Late st Contact Info) Description 04/08/2024 Telephone Hematology/Oncology [facility] [address] [place] [address] Services, Scheduling [address] [place] [address] Lab Draw Only (Nathan) Allergies Active Allergy Reactions Criticality Noted Date Comments Codeine Hives 07/18/2012 Metformin Abdominal pain Low 03/30/2013 documented as of this encounter (statuses as of 04/14/2024) Medications Medication Sig Dispensed Refills Start Date [...] suspected opioid overdose. Seek immediate medical attention. [email or web address]://[email or web address]/watch?v=[email or web address] Active Prochlorperazine Maleate 5 MG Oral Tablet [...] morning and 1 Tablet before bedtime. Active Aangmtzxgk-EEIK-Qxxar ine 50-325-40 MG Oral Tablet (Fioricet) TAKE [...] as of this encounter (statuses as of 04/14/2024) Active Problems Problem Noted Date Diagnosed Date [...] as of this encounter (statuses as of 04/14/2024) Resolved Problems Problem Noted Date Diagnosed Date [...] as of this encounter (statuses as of 04/14/2024) Immunizations Name Administration Dates Next Due COVID-19, [...] 04/14/2024 8:40 AM EDT Ildefonso- please call [facility] this afternoon to request lab records. I checked their system this morning but no labs other than 04/09 were seen. * Telephone Encounter - Cassie Shelton RN - 04/09/2024 3:27 PM EDT Called patient. She gets a paracentesis at [facility] twice a week. Her next paracentesis is Friday. Advised her lab orders are placed. She states that the person in IR is able to pull the orders from the[employer] system. She states that she has a [...] pt back and let her know at [phone] Thank you! documented in this encounter Plan of Treatment Upcoming Encounters Date Type Department Care Team (Late st Contact Info) Description 04/23/2024 11:20 AM EDT [facility] [address] [place] [address] Hilda Calvert DO [address] [place] [address] 06/02/2024 9:00 AM EDT [facility] [address] [place] [address] Hilda Calvert DO [address] [place] [address] 06/08/2024 8:00 AM EDT Office Visit Hematology/Oncology [facility] Michelle [place] [address] [facility] [place] [address] Sandra Evans MD [address] [facility] [place] [address] 08/03/2024 4:00 PM EST Office Visit Dermatology [facility] [address] [place] [address] Saran Knutson PA-C [address] [place] [address] Scheduled Orders Name Type Priority Associated Diagnoses [...] 5:16 PM 10/17/2007 5:01 PM Care Teams Workers' Compensation Claims Examiner Relationship Specialty Start Date End Date Endy Stanley DO PCP - General Family Medicine 07/13/18 documented as of this encounter
--- OUTSIDE RECORDS SUMMARY | 2024-05-02 15:43 | External Medical Summary | Summary of Care ---
Author Name Unknown Organization [facility] Address [address] [place] [address] Phone [phone] Care Team Providers Care Graphic Art Sales Representative Name Role Phone Lizeth Endy Mora DO Primary Care Provider [phone] Reason for Visit * Reason Onset Date Comments Lab Draw Only 04/08/2024 Nathan Encounter Details Date Type Department Care Team (Late st Contact Info) Description 04/08/2024 Telephone Hematology/Oncology [facility] [address] [place] [address] Services, Scheduling [address] [place] [address] Lab Draw Only (Nathan) Allergies Active Allergy [...] suspected opioid overdose. Seek immediate medical attention. [email or web address].[email or web address]?v=[email or web address] Active Prochlorperazine Maleate 5 MG Oral Tablet [...] morning and 1 Tablet before bedtime. Active Enomamzmjk-HKOB-Cdkxi ine 50-325-40 MG Oral Tablet (Fioricet) TAKE [...] 04/14/2024 8:40 AM EDT Ildefonso- please call [facility] this afternoon to request lab records. I checked their system this morning but no labs other than 04/09 were seen. * Telephone Encounter - Cassie Shelton RN - 04/09/2024 3:27 PM EDT Called patient. She gets a paracentesis at [facility] twice a week. Her next paracentesis is Friday. Advised her lab orders are placed. She states that the person in IR is able to pull the orders from the[employer] system. She states that she has a [...] pt back and let her know at [phone] Thank you! documented in this encounter Plan of Treatment Upcoming Encounters Date Type Department Care Team (Late st Contact Info) Description 04/23/2024 11:20 AM EDT [facility] [address] [place] [address] Hilda Calvert DO [address] [place] [address] 06/02/2024 9:00 AM EDT [facility] [address] [place] [address] Hilda Calvert DO [address] [place] [address] 06/08/2024 8:00 AM EDT Office Visit Hematology/Oncology [facility] [place] [address] [place] [address] Sandra Evans MD [address] [place] [address] 08/03/2024 4:00 PM EST Office Visit Dermatology [facility] [address] [place] [address] Saran Knutson PA-C [address] [place] [address] Scheduled Orders Name Type Priority Associated Diagnoses [...] 5:16 PM 10/17/2007 5:01 PM Care Teams Graphic Art Sales Representative Relationship Specialty Start Date End Date Endy Stanley DO PCP - General Family Medicine 07/13/18 documented as of this encounter
--- OUTSIDE RECORDS SUMMARY | 2024-05-02 15:43 | External Medical Summary | Summary of Care ---
Author Name Unknown Organization [facility] Address [address] [place] [address] Phone [phone] Care Team Providers Care Needleworker Name Role Phone Endy Stanley DO Primary Care Provider [phone] Reason for Visit * Reason Onset Date Comments Advice 04/15/2024 Encounter Details Date Type Department Care Team (Late st Contact Info) Description 04/15/2024 Telephone Hepatology, [facility] [address] [facility] [place] [address] Services, Scheduling [address] [place] [address] Advice Allergies Active Allergy Reactions Criticality Noted [...] suspected opioid overdose. Seek immediate medical attention. [email or web address]://[email or web address]/watch?v=[email or web address] Active Prochlorperazine Maleate 5 MG Oral Tablet [...] morning and 1 Tablet before bedtime. Active Vtysnqipge-QLYQ-Uvjyk ine 50-325-40 MG Oral Tablet (Fioricet) TAKE [...] 3:01 PM EDT Phone call placed to [facility]. They will fax recent ED visit. * Telephone Encounter - Adina Andre LPN - 04/15/2024 2:00 PM EDT Spoke with Niesha. She states that she was admitted to [facility] for 2 weeks and was released [...] be seen sooner Caller was transferred to [facility] at the nurse line. documented in this encounter Plan of Treatment Upcoming Encounters Date Type Department Care Team (Late st Contact Info) Description 04/23/2024 11:20 AM EDT Office Visit Hepatology [facility] [address] [place] [address] Hilda Harper DO [address] [place] [address] 06/02/2024 9:00 AM EDT Office Visit Hepatology [facility] [address] [place] [address] Hilda Harper DO [address] [place] [address] 06/08/2024 8:00 AM EDT Office Visit Hematology/Oncology [facility] [place] [phone] Sandra Evans MD [address] [facility], [place] [address] 08/03/2024 4:00 PM EST Office Visit Dermatology [facility] [address] [place] [address] Saran Knutson PA-C [address] [place] [address] Health Maintenance Due Date Last [...] 5:16 PM 10/17/2007 5:01 PM Care Teams Needleworker Relationship Specialty Start Date End Date Endy Stanley DO PCP - General Family Medicine 07/13/18 documented as of this encounter
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
[2024-05-02] MEDS ORDERED: VANCOMYCIN CONSULT ACTIVE PRN (16:36)
[2024-05-02] MEDS: cefTRIAXone SODIUM 2,000 MG/50 ML BAG IV STA (16:52)
[2024-05-02] MEDS: VANCOMYCIN HCL 2,500 MG in SODIUM CHLORIDE 0.9% 500 ML IV ONE (17:05)
[2024-05-02 17:07] LABS: Appearance Urine Clear (Clear); Bilirubin Urine Negative (Negative); Blood Urine Negative (Negative); Color Urine Yellow; Glucose Urine UA Negative (Negative); Ketones Urine Negative (Negative); Leukocyte Esterase Urine Negative (Negative); Nitrite Urine Negative (Negative); Protein Urine Negative (Negative); Specific Gravity Urine 1.009 (1.000-1.030); Urobilinogen Urine Negative (Negative)
[2024-05-02 17:11] LABS: Basophils # (auto) 0.04 K/uL (0.00-0.20); Basophils % (auto) 0.5 %; Eosinophils # (auto) 0.34 K/uL (0.00-0.50); Eosinophils % (auto) 4.4 %; Hematocrit (blood only) 26.8 % (37.0-47.0); Hemoglobin 8.4 g/dl (12.0-16.0); Immature Granulocytes # (auto) 0.04 K/uL (0.01-0.20); Immature Granulocytes % (auto) 0.5 %; Lymphocytes # (auto) 0.31 K/uL (1.20-3.40); Mean Corpuscular Hemoglobin 26.2 pg (25.0-34.0); Mean Corpuscular Hgb Conc 31.3 g/dL (32.0-36.0); Mean Corpuscular Volume 83.5 fL (80.0-100.0); Mean Platelet Volume 11.6 fL (9.4-12.4); Monocytes % (auto) 7.8 %; Neutrophils # (auto) 6.34 K/uL (1.40-6.50); Neutrophils % (auto) 82.8 %; Platelet Count 68 K/uL (130-400); RDW Coefficient of Variation 17.2 % (11.5-14.5); RDW Standard Deviation 52.7 fL (36.4-46.3); Red Blood Count 3.21 M/uL (4.20-5.40); White Blood Count 7.67 K/ul (4.8-10.8)
[2024-05-02 17:32] LABS: Thyroid Stimulating Hormone 34.096 uIu/ml (0.300-4.500)
[2024-05-02 17:37] LABS: INR 1.3 (0.9-1.1); Partial Thromboplastin Time 27 Seconds (21-31); Prothrombin Time 13.9 Seconds (9.0-12.0)
[2024-05-02 17:59] LABS: Albumin Level 2.9 gm/dl (3.4-5.0); BUN Creatinine Ratio 28.8 (10-20); Bilirubin,Total 1.8 mg/dl (0.2-1.0); Creatinine Clr Calc Pharmacy 66.1 ml/min; Est GFR (Non-African American) 52.6 ml/min; Globulin 2.9 gm/dl (2.5-4.0); Total Protein 5.8 gm/dl (6.0-8.3)
[2024-05-02 18:17] LABS: T4 Free Thyroxine 0.85 ng/dl (0.61-1.60)
[2024-05-02] MEDS: fentaNYL citrate PF 100 MCG/2 ML VIAL IV ONE (19:02)
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
[2024-05-02] MEDS ORDERED: POTASSIUM CHLORIDE CRTAB 20 MEQ TABCR PO STA ×2 (19:34→20:49)
[2024-05-02] MEDS ORDERED: ALBUT/IPRATROP 3MG/0.5MG NEB 3 ML VIAL INH PRN (21:14)
[2024-05-02] MEDS: PANTOprazole 40 MG TAB PO SCH (21:49)
[2024-05-02] MEDS: PRAMIPEXOLE DIHYDROCHLO 0.5 MG TAB PO SCH (21:49)
[2024-05-02] MEDS: LACTULOSE SYRUP 30 GM/45 ML UDP PO SCH (21:49)
[2024-05-02] MEDS: rifAXIMin 550 MG TABLET PO SCH (21:50)
[2024-05-02] MEDS: POTASSIUM CHLORIDE CRTAB 20 MEQ TABCR PO SCH (21:50)
[2024-05-02] MEDS: tiZANidine HCL 4 MG TABLET PO PRN (21:53)
[2024-05-02] MEDS: ALPRAZolam 0.5 MG TABLET PO PRN (21:57)
--- NOTE | 2024-05-02 22:24 | Ultrasound Report ---
Exam(s): US VENOUS RIGHT LOWER EXTREMITY EXAM: US Duplex Right Lower Extremity Veins CLINICAL HISTORY: Reason for exam: leg swelling/redness. TECHNIQUE: Real-time duplex ultrasound scan of the right lower extremity veins integrating B-mode two-dimensional vascular structure, Doppler spectral analysis, color flow Doppler imaging and compression. COMPARISON: No relevant prior studies available. FINDINGS: Deep veins: Unremarkable. No DVT in the visualized common femoral, femoral, proximal deep femoral or popliteal veins. The veins demonstrate normal color flow, are normally compressible, with normal phasic flow and/or augmentation response. Superficial veins: Unremarkable. No thrombus in the visualized great saphenous vein. Soft tissues: There is subcutaneous edema in the right calf. No popliteal cyst. IMPRESSION: No evidence of DVT in the right lower extremity. There is subcutaneous edema in the right calf. Electronically signed by: Sheldon Metcalf MD 05/02/24 22:23 PM
[2024-05-02] MEDS: POTASSIUM CHLORIDE 10 MEQ TABCR PO ONE (22:30)
[2024-05-02] MEDS: traMADol HCL 50 MG TABLET PO PRN (23:44)
[2024-05-03] MEDS: LEVOTHYROXINE SODIUM 150 MCG TABLET PO SCH (06:19)
[2024-05-03] MEDS: VANCOMYCIN HCL 1,000 MG in SODIUM CHLORIDE 0.9% 250 ML IV SCH (07:25)
[2024-05-03] MEDS: SERTRALINE HCL 100 MG TABLET PO SCH (07:29)
[2024-05-03] MEDS: MAGNESIUM OXIDE 400 MG TAB PO SCH (07:30)
[2024-05-03] MEDS: LINACLOTIDE 145 MCG CAPSULE PO SCH (07:31)
[2024-05-03] MEDS: FAMOTIDINE 40 MG TABLET PO SCH (07:32)
[2024-05-03 08:03] LABS: Basophils # (auto) 0.03 K/uL (0.00-0.20); Basophils % (auto) 0.5 %; Eosinophils # (auto) 0.35 K/uL (0.00-0.50); Eosinophils % (auto) 5.3 %; Hematocrit (blood only) 25.5 % (37.0-47.0); Hemoglobin 8.3 g/dl (12.0-16.0); Immature Granulocytes # (auto) 0.05 K/uL (0.01-0.20); Immature Granulocytes % (auto) 0.8 %; Lymphocytes # (auto) 0.41 K/uL (1.20-3.40); Lymphocytes % (auto) 6.2 %; Mean Corpuscular Hemoglobin 26.3 pg (25.0-34.0); Mean Corpuscular Hgb Conc 32.5 g/dL (32.0-36.0); Mean Corpuscular Volume 80.7 fL (80.0-100.0); Mean Platelet Volume 10.9 fL (9.4-12.4); Monocytes # (auto) 1.01 K/uL (0.11-0.59); Monocytes % (auto) 15.3 %; Neutrophils # (auto) 4.75 K/uL (1.40-6.50); Neutrophils % (auto) 71.9 %; Platelet Count 69 K/uL (130-400); RDW Coefficient of Variation 17.6 % (11.5-14.5); RDW Standard Deviation 52.5 fL (36.4-46.3); Red Blood Count 3.16 M/uL (4.20-5.40)
[2024-05-03 08:17] LABS: Albumin Level 2.9 gm/dl (3.4-5.0); Bilirubin,Total 1.6 mg/dl (0.2-1.0); Calcium 7.3 mg/dl (8.6-10.3); Creatinine Clr Calc Pharmacy 84.1 ml/min; Est GFR (African American) 79.9 ml/min; Globulin 2.8 gm/dl (2.5-4.0); Potassium 2.7 mmol/L (3.5-5.1); Total Protein 5.7 gm/dl (6.0-8.3)
[2024-05-03 08:23] LABS: INR 1.3 (0.9-1.1); Prothrombin Time 13.7 Seconds (9.0-12.0)
[2024-05-03] MEDS ORDERED: SERTRALINE HCL 50 MG TABLET PO SCH (09:00)
[2024-05-03] MEDS: POTASSIUM CHLORIDE 10 MEQ TABCR PO SCH ×2 (09:42→22:46)
--- NOTE | 2024-05-03 12:47 | Electrocardiogram Report ---
Test Reason : Blood Pressure : */* mmHG Vent. Rate : 90 BPM Atrial Rate : 90 BPM P-R Int : 148 ms QRS Dur : 94 ms QT Int : 478 ms P-R-T Axes : 10 -16 17 degrees QTcB Int : 584 ms Normal sinus rhythm Cannot rule out Anterior infarct , age undetermined Prolonged QT Abnormal ECG When compared with ECG of 13-Apr-2024 12:45, No significant change was found Confirmed by Mikal Blue ([id number]) on 05/03/2024 12:47:20 PM Referred By: REFERRED SELF Confirmed By: Mikal Blue
--- NOTE | 2024-05-03 13:44 | Ultrasound Report ---
ULTRASOUND-GUIDED PARACENTESIS CLINICAL HISTORY: Ascites PROCEDURE: Procedure and risks were explained. Informed consent was obtained. A final timeout was com pleted. The abdomen was prepped and draped in sterile fashion. 1% lidocaine was utilized for skin ane sthesia. Utilizing ultrasound guidance, a 5 Khmer safety centesis catheter was advanced into the left upper q uadrant pocket of ascites. Ultrasound images were obtained. A total of 4000 mL of ascites fluid was r emoved and discarded. The catheter was removed and (1) 3-0 nylon suture was utilized to close the pun cture site. The patient tolerated the procedure well. Vital signs will be monitored postprocedure. IMPRESSION: Ultrasound-guided paracentesis as above. Performed, dictated, and signed by Marvin Greene PA-C; to be co-signed by Dr. Guero Garcia. Electronically signed by: Guero Garcia M.D. 05/03/2024 3:32 PM
[2024-05-03] MEDS ORDERED: DEXTROSE 50% 50 ML SYRINGE IV PRN (14:45)
[2024-05-03] MEDS ORDERED: GLUCOSE 40% GEL 15 GM TUBE PO PRN (14:45)
[2024-05-03] MEDS ORDERED: GLUCOSE 10 TAB/TUBE PO PRN (14:45)
[2024-05-03] MEDS ORDERED: CARBOHYDRATES FOR HYPOGLYCEMIA PO PRN (14:45)
[2024-05-03] MEDS ORDERED: GLUCAGON FOR INJ 1 MG VIAL IM PRN (14:45)
--- NOTE | 2024-05-03 14:49 | Hospitalist Progress Note ---
Date of Service May 03, 2024 Assessment & Plan (1) Cellulitis: Plan: 43-year-old woman with decompensated cirrhosis related to mash who is listed for transplant at [facility], admitted with severe right lower extremity cellulitis continue ceftriaxone, stop vancomycin. Discussed with clinical pharmacist elevate lower extremity duplex was negative for DVT (2) JOANNA (acute kidney injury): Plan: creatinine mildly increased above baseline at the time of admission was 1.25, baseline is around 0.70.8 was hypovolemic in ED, prerenal - diuretics were held last night and this morning creatinine improved to 1.0 - resume diuretics this afternoon hypokalemiathis has been a chronic issue, gave her the 40 mEq of potassium this morning despite holding diuretics, continue this also continue magnesium replacement we will resume her spironolactone this afternoon which will help a.m. 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 She has no abdominal pain currently and the area around the hernia has no inflammation. it is not incarcerated (4) Prolonged QT interval: Plan: Trial of reducing sertraline caused worsening symptoms Avoid further QT prolonging medications (5) JUSTYN (generalized anxiety disorder): Plan: Continue venlafaxine and sertraline Xanax PRN (6) Hypothyroidism, postablative: Plan: TSH 34. free T4 normal. Continue levothyroxine 300 mcg PO daily in setting of infection, repeat in 4-6 weeks (7) RLS (restless legs syndrome): Plan: Continue pramipexole Plan VTE Prophylaxis - deferred chemical VTE prophylaxis due to thrombocytopenia and large ecchymosis Diet - low Na Disposition - admit to med/surg Admission and Anticipated Discharge Date Admission Date: May 02, 2024 Houng Cheatham continues to have erythematous painful swollen right leg below the knee, remains tender and painful however redness has darkened somewhat since yesterday she has a petechial rash of her right thigh right buttock and up the right side of her flank this is not itchy it was a little bit tender on the buttocks side she noticed this rash at the same time that the cellulitis started she has been doing well with respect to hepatic encephalopathy and is not having any increased confusion currently mid-May since the last time I saw her she unfortunately ruptured her umbilical hernia which has been spontaneously draining ascites, this is being managed with diuretics and frequent paracentesis, plan is to have it repaired at time of liver transplant her transplant team at [facility] is aware of this problem she reports that she may be able to receive a liver transplant from a living donor Physical Exam 2 Physical Exam: PHYSICAL EXAMINATION Last 24h vital signs reviewed, see documentation in flowsheet General: comfortable appearing, no distress, sitting up on the edge of the bed HEENT: Normocephalic, atraumatic, pupils round and equal, sclerae anicteric, no conjunctival injection, moist mucus membranes Lungs: Normal respiratory effort. Heart: deferred Abdomen: protuberant, no ascites currently, 2 cm abdominal wall defect at the umbilicus with valve visible beneath this is not incarcerated and not inflamed significant old appearing ecchymosis along left flank and buttock, this is flat and nontender Extremities: Warm, dry, well-perfused. severe right lower extremity erythema below the knee confluent all the way down to the foot/toes, also with edema and induration and warmth. punctate wound anterior mid daily. only very mild edema left lower extremity and foot, no erythema skin: Petechial rash that is basically flat right thigh right buttock right flank. no vesicles or pustules Neuro: Alert and oriented x 4, face symmetric, moves 4 extremities well, tremor present Psych: Normal affect and behavior Results & Data Results & Data Vital Signs (Past 12 Hours) Vital Signs Temp Pulse Resp BP Pulse Ox O2 Del Method 05/03/24 13:28 36.8 C 75 16 109/72 98 Room Air 05/03/24 10:34 36.8 C 81 18 124/77 100 Room Air 05/03/24 10:24 36.7 C 77 16 114/72 95 Room Air 05/03/24 09:54 36.6 C 80 18 120/74 99 Room Air 05/03/24 08:14 36.5 C 80 18 112/75 95 Room Air Laboratory Results 05/03/24 07:08 05/03/24 07:08 PG Care Time/CCT Total # of Minutes Spent Total Time Spent with Patient: Total time spent is greater than 50% in coordination of care (as documented) at patient's floor/unit and/or counseling patient: Coding Level of Care Code 69083 SUB INP/OBS CARE 350MIN Diagnoses Cellulitis of right lower extremity L03.115 Laterality: right Site of cellulitis: extremity Site of cellulitis of extremity: lower extremity JOANNA (acute kidney injury) N17.9 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
[2024-05-03] MEDS: SEMAGLUTIDE INJ SQ SCH (15:01)
[2024-05-03] MEDS: SPIRONOLACTONE 100 MG TAB PO SCH (17:36)
[2024-05-03] MEDS: BUMETANIDE 1 MG TAB PO SCH (17:37)
[2024-05-03] MEDS: cefTRIAXone SODIUM 2,000 MG/50 ML BAG IV SCH (17:38)
[2024-05-03] MEDS: VENLAFAXINE HCL XR 75 MG CAPXR PO ONE (22:43)
[2024-05-03] MEDS: TRIAMCINOLONE ACET 0.1% CR 15 GM TUBE EXT PRN (22:59)
[2024-05-04 06:46] LABS: Albumin Level 2.8 gm/dl (3.4-5.0); Bilirubin,Total 1.5 mg/dl (0.2-1.0); Calcium 7.1 mg/dl (8.6-10.3); Creatinine Clr Calc Pharmacy 95.5 ml/min; Est GFR (African American) 93.3 ml/min; Est GFR (Non-African American) 80.5 ml/min; Globulin 2.8 gm/dl (2.5-4.0); Potassium 2.7 mmol/L (3.5-5.1); Total Protein 5.6 gm/dl (6.0-8.3)
[2024-05-04 06:54] LABS: INR 1.2 (0.9-1.1)
[2024-05-04] MEDS: POTASSIUM CHLORIDE / WTR 10 MEQ/100 ML PLCT IV SCH ×2 (09:40→23:00)
--- NOTE | 2024-05-04 19:54 | Hospitalist Progress Note ---
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: Plan: Continue lactulose and rifaximin for HE prophylaxis Received bumex this am, but placed afternoon dose on hold due to refractory hypokalemia Cont spironolactone s/p paracentesis by IR 05/03/24 next paracentesis planned for of this week she has a recently ruptured umbilical hernia that led to an ascites leak thus tight management of her ascites is necessary no evidence of cellulitis of the umbilical area no abdominal symptoms today possibly to get a living donor transplant later this fall at [facility]) (4) Prolonged QT interval: Plan: chronic need to keep K and mag wnl prolonged QT has previously been due to psychotropic meds, low K, etc (5) JUSTYN (generalized anxiety disorder): Plan: Continue venlafaxine and sertraline Xanax PRN (6) Hypothyroidism, postablative: Plan: TSH 34. free T4 normal. Continue levothyroxine 300 mcg PO daily repeat in 4 weeks as outpatient she has had widely fluctuating TSH levels over the last few years presumed due to absorption issues from the gut will not make any changes at this time (7) RLS (restless legs syndrome): Plan: Continue pramipexole (8) Hypokalemia: Plan: 2nd to diuretics, diarrhea from lactulose, etc replace IV and PO repeat level this evening and then again in am mag level noted to be normal Plan VTE Prophylaxis - deferred chemical VTE prophylaxis due to thrombocytopenia and large ecchymosis on her abdominal wall from recent fall Diet - low Na Admission and Anticipated Discharge Date Admission Date: May 02, 2024 Subjective patient c/o mild discomfort in right daily denies pruritis of right thigh rash does have a rash on chest wall in between the breasts - also not pruritic denies any abd pain denies any leaking of ascites from umbilicus Review of Systems Review of Systems: gen - no fevers or chills; eating well cv - no chest pain pulm - mild dyspnea today and mild cough GI - no vomiting Physical Exam Physical Exam: gen - looks well, NAD, obese neck - no JVD mouth - MM dry, no thrush heart - borderline tachy, s1 s2, 1-2/6 EDUARDO LSB lungs - CTA b/l abd - soft NT ND BS+; small umbilical hernia present - no leaking of fluid; reducible; former paracentesis site ext - 1+ edema, pulses 2+ b/l neuro - no asterixis skin - background of venous stasis changes b/l shins, worse on right; cellulitis with mild erythema of entire daily; erythematous macules and occasional papule of right thigh; scaly patches on sternal area of chest Results & Data Results & Data Vital Signs (Past 12 Hours) Vital Signs Temp Pulse Resp BP Pulse Ox O2 Del Method 05/04/24 18:33 88 14 05/04/24 14:41 36.8 C 94 H 7 L 137/82 94 Room Air 05/04/24 11:12 36.6 C 81 10 L 130/70 96 Room Air 05/04/24 08:08 36.7 C 82 13 124/76 94 Room Air Laboratory Results Laboratory Results - last 24 hr 05/04/24 06:02 PT 13.0 H INR 1.2 H Sodium 132 L Potassium 2.7 L Chloride 91 L Carbon Dioxide 37 H Anion Gap 4 BUN 22 Creatinine 0.88 Est Cr Clr Drug Dosing 95.5 Est GFR ( Amer) 93.3 Est GFR (Non-Af Amer) 80.5 BUN/Creatinine Ratio 25.0 H Glucose 178 H Calcium 7.1 L Total Bilirubin 1.5 H AST 52 H ALT 27 Alkaline Phosphatase 82 Total Protein 5.6 L Albumin 2.8 L Globulin 2.8 Albumin/Globulin Ratio 1.0 PG Care Time/CCT Total # of Minutes Spent Total Time Spent with Patient: Total time spent is greater than 50% in coordination of care (as documented) at patient's floor/unit and/or counseling patient: Coding Level of Care Code 85571 SUB INP/OBS CARE 2/35MIN Diagnoses Cellulitis of right lower extremity L03.115 Laterality: right Site of cellulitis: extremity Site of cellulitis of extremity: lower extremity JOANNA (acute kidney injury) N17.9 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
[2024-05-04 20:18] LABS: Magnesium 1.9 mg/dl (1.7-2.4); Potassium 2.9 mmol/L (3.5-5.1)
[2024-05-04] MEDS: TRIAMCINOLONE ACET 0.1% CR 80 GM TUBE EXT SCH (21:04)
[2024-05-04] MEDS: POTASSIUM CHLORIDE 20 MEQ/15 ML UDC PO STA (23:36)
[2024-05-05] MEDS: POTASSIUM CHLORIDE PWD 20 MEQ PACK PO SCH (08:49)
[2024-05-05] MEDS: PROMETHAZINE 12.5 MG/50.5 ML BAG IV PRN (14:40)
[2024-05-05] MEDS: PROCHLORPERAZINE MALEATE 5 MG TAB PO PRN (17:29)
--- NOTE | 2024-05-05 18:19 | Hospitalist Progress Note ---
Date of Service May 05, 2024 Assessment & Plan (1) Cellulitis: Plan: RLE improved cont rocephin - day #4 of such no h/o MRSA or other resistant pathogen (2) JOANNA (acute kidney injury): Plan: creatinine mildly increased above baseline at the time of admission - 1.25 baseline is around 0.70.8 Cr improved to 0.78 today resolved BMP am (3) 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: Plan: Continue lactulose and rifaximin for HE prophylaxis but she has been declining the lactulose due to frequent stooling - which is likely abx-associated diarrhea?? Bumex had been on hold due to refractory hypokalemia but suspect she has pulmonary edema today - thus, resume bumex - give 3mg IV x 1 now Cont spironolactone s/p paracentesis by IR 05/03/24 next paracentesis planned for tomorrow by IR she has a recently ruptured umbilical hernia that led to an ascites leak thus tight management of her ascites is necessary no evidence of cellulitis of the umbilical area possibly to get a living donor transplant later this fall at [facility] ([facility]) (4) Prolonged QT interval: Plan: chronic need to keep K and mag wnl prolonged QT has previously been due to psychotropic meds, low K, etc (5) JUSTYN (generalized anxiety disorder): Plan: Continue venlafaxine and sertraline venlafaxine had been on hold since admission and she is likely experiencing effexor withdrawal resume now Xanax PRN (6) Hypothyroidism, postablative: Plan: TSH 34. free T4 normal. Continue levothyroxine 300 mcg PO daily repeat in 4 weeks as outpatient she has had widely fluctuating TSH levels over the last few years presumed due to absorption issues from the gut will not make any changes at this time (7) RLS (restless legs syndrome): Plan: Continue pramipexole (8) Hypokalemia: Plan: 2nd to diuretics, diarrhea from lactulose, diarrhea from antibiotics, etc s/p replacement (copious) last 48 hours level finally wnl mag level noted to be normal repeat BMP am Plan VTE Prophylaxis - deferred chemical VTE prophylaxis due to thrombocytopenia and large ecchymosis on her abdominal wall from recent fall Diet - low Na transferring to telemetry due to known prolonged QTc, resumption of effexor (which will make the QTc worse), volume overload & pulmonary edema, etc. Admission and Anticipated Discharge Date Admission Date: May 02, 2024 Subjective having headaches today and simply feeling unwell she noticed today she couldn't "think straight" but it feels different "than when my ammonia levels are high" at one point she realized she hadn't had her effexor in a few days has been taking such for several years additionally c/o dyspnea at rest and "wheezing" in her lungs right leg is improved - the redness is better not as sore having copious amounts of diarrhea she declined all of her lactulose today because of the frequent stooling Review of Systems Review of Systems: CV - no orthopnea pulm - no cough, just dyspnea GI - no abd pain; some nausea earlier today Physical Exam Physical Exam: gen - dyspneic, otherwise NAD neck - JVD present mouth - MM dry, no thrush heart - RRR, s1 s2, 2/6 EDUARDO LSB lungs - CTA b/l, decreased BS bases abd - soft NT ND BS+; small umbilical hernia present - no leaking of fluid; reducible; former paracentesis site clean, not leaking, suture intact ext - 1+ edema, pulses 2+ b/l skin - background of venous stasis changes b/l shins, worse on right; cellulitis with mild erythema of entire daily - improved; erythematous macules and occasional papule of right thigh - improved Results & Data Results & Data Vital Signs (Past 12 Hours) Vital Signs Temp Pulse Resp BP Pulse Ox O2 Del Method 05/05/24 15:19 36.7 C 82 18 125/75 96 Room Air 05/05/24 08:47 36.7 C 79 18 119/77 95 Room Air Laboratory Results Laboratory Results - last 24 hr 05/05/24 18:35 WBC 6.98 RBC 3.37 L Hgb 8.6 L Hct 27.9 L MCV 82.8 MCH 25.5 MCHC 30.8 L RDW Std Deviation 52.6 H RDW Coeff of Henna 17.2 H Plt Count 89 L MPV 10.3 Sodium 130 L Potassium 3.9 D Chloride 94 L Carbon Dioxide 31 Anion Gap 5 BUN 14 Creatinine 0.78 Est Cr Clr Drug Dosing 107.8 Est GFR ( Amer) 107.9 Est GFR (Non-Af Amer) 93.1 BUN/Creatinine Ratio 17.9 Glucose 253 H Calcium 7.7 L PG Care Time/CCT Total # of Minutes Spent Total Time Spent with Patient: Total time spent is greater than 50% in coordination of care (as documented) at patient's floor/unit and/or counseling patient: Coding Level of Care Code 60885 SUB INP/OBS CARE 235MIN Diagnoses Cellulitis of right lower extremity L03.115 Laterality: right Site of cellulitis: extremity Site of cellulitis of extremity: lower extremity JOANNA (acute kidney injury) N17.9 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 JUSTYN (generalized anxiety disorder) F41.1 Hypothyroidism, postablative E89.0 RLS (restless legs syndrome) G25.81 Hypokalemia E87.6 (1) Cellulitis Laterality: right Site of cellulitis: extremity Site of cellulitis of e xtremity: lower extremity Qualified Code(s): L03.115 - Cellulitis of right lower limb
[2024-05-05 19:01] LABS: Hematocrit (blood only) 27.9 % (37.0-47.0); Hemoglobin 8.6 g/dl (12.0-16.0); Mean Corpuscular Hemoglobin 25.5 pg (25.0-34.0); Mean Corpuscular Hgb Conc 30.8 g/dL (32.0-36.0); Mean Corpuscular Volume 82.8 fL (80.0-100.0); Mean Platelet Volume 10.3 fL (9.4-12.4); Platelet Count 89 K/uL (130-400); RDW Coefficient of Variation 17.2 % (11.5-14.5); RDW Standard Deviation 52.6 fL (36.4-46.3); Red Blood Count 3.37 M/uL (4.20-5.40); White Blood Count 6.98 K/ul (4.8-10.8)
[2024-05-05 19:26] LABS: BUN Creatinine Ratio 17.9 (10-20); Calcium 7.7 mg/dl (8.6-10.3); Creatinine Clr Calc Pharmacy 107.8 ml/min; Est GFR (African American) 107.9 ml/min; Est GFR (Non-African American) 93.1 ml/min; Potassium 3.9 mmol/L (3.5-5.1)
[2024-05-05] MEDS: BUMETANIDE 3 MG in SYRINGE 0 ML IV ONE (20:08)
[2024-05-05] MEDS: VENLAFAXINE HCL XR 75 MG CAPXR PO SCH (20:08)
[2024-05-05] MEDS: VENLAFAXINE HCL XR 150 MG CAPXR PO SCH (20:09)
[2024-05-06 06:28] LABS: Hematocrit (blood only) 27.2 % (37.0-47.0); Hemoglobin 8.4 g/dl (12.0-16.0); Mean Corpuscular Hemoglobin 25.6 pg (25.0-34.0); Mean Corpuscular Hgb Conc 30.9 g/dL (32.0-36.0); Mean Corpuscular Volume 82.9 fL (80.0-100.0); Mean Platelet Volume 10.3 fL (9.4-12.4); Platelet Count 83 K/uL (130-400); RDW Coefficient of Variation 17.2 % (11.5-14.5); RDW Standard Deviation 52.5 fL (36.4-46.3); Red Blood Count 3.28 M/uL (4.20-5.40); White Blood Count 7.44 K/ul (4.8-10.8)
[2024-05-06 06:34] LABS: BUN Creatinine Ratio 20.5 (10-20); Calcium 7.8 mg/dl (8.6-10.3); Creatinine Clr Calc Pharmacy 115.2 ml/min; Est GFR (African American) 116.9 ml/min; Est GFR (Non-African American) 100.9 ml/min; Potassium 3.8 mmol/L (3.5-5.1)
[2024-05-06] MEDS: ALBUMIN 25% 25 GM/100 ML VIAL IV ONE (13:25)
--- NOTE | 2024-05-06 13:44 | Ultrasound Report ---
ULTRASOUND-GUIDED PARACENTESIS CLINICAL HISTORY: Ascites PROCEDURE: Procedure and risks were explained. Informed consent was obtained. A final timeout was com pleted. The abdomen was prepped and draped in sterile fashion. 1% lidocaine was utilized for skin ane sthesia. Utilizing ultrasound guidance, a 5 Upper Sorbian safety centesis catheter was advanced into the left upper q uadrant pocket of ascites. Ultrasound images were obtained. A total of 2900 mL of ascites fluid was r emoved and discarded. The catheter was removed and (1) 3-0 nylon suture was utilized to close the pun cture site. The patient tolerated the procedure well. Vital signs will be monitored postprocedure. IMPRESSION: Ultrasound-guided paracentesis as above. Performed, dictated, and signed by Marvin Greene PA-C; to be co-signed by Dr. Guero Garcia. Electronically signed by: Guero Garcia M.D. 05/06/2024 2:08 PM
[2024-05-06] MEDS: cephALEXin 500 MG CAP PO SCH (17:36)
[2024-05-06] MEDS: ADVANCED PROBIOTIC 625 MG CAPSULE PO SCH (17:36)
--- NOTE | 2024-05-06 19:17 | Hospitalist Progress Note ---
Date of Service May 06, 2024 Assessment & Plan (1) Cellulitis: Plan: RLE resolving nicely s/p 4 days of rocephin - can stop, change to PO keflex 500mg QID, plan ~10 days of Rx between IV/PO abx no h/o MRSA or other resistant pathogen (2) JOANNA (acute kidney injury): Plan: resolved all of her typical diuretics have been resumed BMP am (3) 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: Plan: s/p paracentesis by IR 05/03/24 and again today will give albumin 25%, 25gm IV x 1 post-para today she has a recently ruptured umbilical hernia that led to an ascites leak thus tight management of her ascites is necessary no evidence of cellulitis of the umbilical area possibly to get a living donor transplant later this fall at [facility] ([facility]) resumed bumex 3mg BID cont aldactone 100mg BID cont salt restricted diet HE prophylaxis - cont rifaximin with respect to lactulose -- suspect diarrhea will improve with stopping broad- spectrum IV abx (rocephin) but perhaps diarrhea also being worsened by her Ozempic add lactinex c diff testing negative (4) Prolonged QT interval: Plan: chronic need to keep K and mag wnl prolonged QT has previously been due to psychotropic meds, low K, etc check a baseline EKG in am tomorrow (5) JUSTYN (generalized anxiety disorder): Plan: Continue venlafaxine and sertraline Xanax PRN (6) Hypothyroidism, postablative: Plan: TSH 34. free T4 normal. Continue levothyroxine 300 mcg PO daily repeat in 4 weeks as outpatient she has had widely fluctuating TSH levels over the last few years presumed due to absorption issues from the gut will not make any changes at this time (7) RLS (restless legs syndrome): Plan: Continue pramipexole (8) Hypokalemia: Plan: 2nd to diuretics, diarrhea from lactulose, diarrhea from antibiotics, etc s/p replacement K level wnl today mag levels noted to be normal repeat BMP am for stability reduce K supplementation to BID dosing Plan VTE Prophylaxis - deferred chemical VTE prophylaxis due to thrombocytopenia and large ecchymosis on her abdominal wall from recent fall observe overnight, hopefully home tomorrow Admission and Anticipated Discharge Date Admission Date: May 02, 2024 Subjective patient underwent paracentesis today in IR 3 L removed w/o incident her abdominal distension is improved following such her breathing is improved today telemetry wnl overnight her RLE redness is improved; discomfort is improved main complaint is that of frequent stooling/diarrhea she has been refusing her lactulose due to the frequency of the stool she denies abd pain and is eating well despite the frequent stooling of note - she was started on Ozempic 2-3 weeks ago as outpatient Review of Systems Review of Systems: gen - no fevers cv - no chest pain pulm - dyspnea resolved; no cough GI - no vomiting Physical Exam Physical Exam: gen - looks better today, NAD neck - JVD improved mouth - MM dry, no thrush heart - RRR, s1 s2, 2/6 EDUARDO LSB lungs - CTA b/l, improved airation bases abd - soft NT ND BS+; small umbilical hernia present - no leaking of fluid; paracentesis sites x 2 covered with small dressings on abdominal wall ext - <1+ edema RLE; trace edema LLE; pulses 2+ b/l skin - background of venous stasis changes b/l shins, worse on right; cellulitis much improved RLE; erythematous macules and occasional papule of right thigh - improved, nearly resolved Results & Data Results & Data Vital Signs (Past 12 Hours) Vital Signs Temp Pulse Pulse Resp BP Pulse Ox O2 Del Method 05/06/24 19:15 36.6 C 86 18 120/93 97 Room Air 05/06/24 15:30 36.7 C 85 18 118/71 97 Room Air 05/06/24 13:15 36.7 C 85 18 146/87 H 98 Room Air 05/06/24 13:00 87 05/06/24 12:16 36.7 C 86 18 116/68 98 Room Air 05/06/24 11:46 36.8 C 86 16 146/72 H 96 Room Air 05/06/24 11:22 36.6 C 84 18 163/92 H 97 Room Air 05/06/24 08:00 80 05/06/24 07:42 36.5 C 85 18 130/84 96 Room Air Laboratory Results Laboratory Results - last 24 hr 05/05/24 05/06/24 05/06/24 18:35 05:44 08:17 WBC 7.44 RBC 3.28 L Hgb 8.4 L Hct 27.2 L MCV 82.9 MCH 25.6 MCHC 30.9 L RDW Std Deviation 52.5 H RDW Coeff of Henna 17.2 H Plt Count 83 L MPV 10.3 Sodium 130 L 132 L Potassium 3.9 D 3.8 Chloride 94 L 93 L Carbon Dioxide 31 36 H Anion Gap 5 3 BUN 14 15 Creatinine 0.78 0.73 Est Cr Clr Drug Dosing 107.8 115.2 Est GFR ( Amer) 107.9 116.9 Est GFR (Non-Af Amer) 93.1 100.9 BUN/Creatinine Ratio 17.9 20.5 H Glucose 253 H 170 H Calcium 7.7 L 7.8 L Stl C. diff Tox B Gene Negative Cdiff Gene PG Care Time/CCT Total # of Minutes Spent Total Time Spent with Patient: Total time spent is greater than 50% in coordination of care (as documented) at patient's floor/unit and/or counseling patient: Coding Level of Care Code 12430 SUB INP/OBS CARE 2/35MIN Diagnoses Cellulitis of right lower extremity L03.115 Laterality: right Site of cellulitis: extremity Site of cellulitis of extremity: lower extremity JOANNA (acute kidney injury) N17.9 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 JUSTYN (generalized anxiety disorder) F41.1 Hypothyroidism, postablative E89.0 RLS (restless legs syndrome) G25.81 Hypokalemia E87.6 (1) Cellulitis Laterality: right Site of cellulitis: extremity Site of cellulitis of extr emity: lower extremity Qualified Code(s): L03.115 - Cellulitis of right lower limb
[2024-05-07 06:40] LABS: Calcium 7.6 mg/dl (8.6-10.3); Creatinine Clr Calc Pharmacy 112.1 ml/min; Est GFR (African American) 113.1 ml/min; Est GFR (Non-African American) 97.6 ml/min; Potassium 3.6 mmol/L (3.5-5.1)
[2024-05-07] MEDS: POTASSIUM CHLORIDE PWD 20 MEQ PACK PO SCH (08:26)
--- NOTE | 2024-05-07 13:55 | Electrocardiogram Report ---
Test Reason : Blood Pressure : */* mmHG Vent. Rate : 76 BPM Atrial Rate : 76 BPM P-R Int : 152 ms QRS Dur : 96 ms QT Int : 454 ms P-R-T Axes : 18 14 19 degrees QTcB Int : 510 ms Normal sinus rhythm Poor R wave progression, consider anterior DC vs. lead placement vs. LVH Prolonged QT Abnormal ECG When compared with ECG of 02-May-2024 16:43, QT has shortened Confirmed by Mikal Blue ([id number]) on 05/07/2024 1:55:17 PM Referred By: REFERRED SELF Confirmed By: Mikal Blue
--- NOTE | 2024-05-07 15:36 | XRay Report ---
XR chest 1V portable HISTORY: 43 years-old Female dyspnea, pulmonary edema? Acute shortness of breath COMPARISON: 03/15/2024 TECHNIQUE: AP view of the chest FINDINGS: Cardiac silhouette is mildly enlarged. Mild right hemidiaphragmatic elevation. No pneumothorax, pleur al effusion or overt pulmonary edema. Right-sided rotator cuff calcific tendinosis. Cervical spinal f usion hardware. Bones appear grossly intact. IMPRESSION: No acute process. ACT 112: Negative or not required by law. The above report was generated using voice recognition software. It may contain grammatical, syntax o r spelling errors. Electronically signed by: Lorenzo Ocampo M.D. 05/07/2024 3:35 PM
[2024-05-07] MEDS: metOLazone 2.5 MG TABLET PO ONE (16:49)
[2024-05-07] MEDS: POTASSIUM CHLORIDE PWD 20 MEQ PACK PO ONE (16:50)
--- NOTE | 2024-05-07 19:32 | Hospitalist Progress Note ---
Date of Service May 07, 2024 Assessment & Plan (1) Cellulitis: Plan: RLE resolving nicely s/p 4 days of rocephin - day #2 of keflex 500mg QID, plan ~10 days of Rx between IV/PO abx no h/o MRSA or other resistant pathogen (2) JOANNA (acute kidney injury): Plan: resolved all of her typical diuretics have been resumed giving extra dose of diuretic today (metolazone x 1) BMP am (3) 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: Plan: s/p paracentesis by IR 05/03/24 and again today will give albumin 25%, 25gm IV x 1 post-para today she has a recently ruptured umbilical hernia that led to an ascites leak thus tight management of her ascites is necessary no evidence of cellulitis of the umbilical area possibly to get a living donor transplant later this fall at [facility] ([facility]) cont bumex 3mg BID cont aldactone 100mg BID cont salt restricted diet dose of metolazone today HE prophylaxis - cont rifaximin with respect to lactulose -- suspect diarrhea will improve now that rocephin has been stopped but perhaps diarrhea also being worsened by her Ozempic cont lactinex c diff testing negative patient asked to not hold her lactulose any longer (4) Prolonged QT interval: Plan: chronic need to keep K and mag wnl prolonged QT has previously been due to psychotropic meds, low K, etc EKG today with mildly prolonged QTc just over 500msec (5) JUSTYN (generalized anxiety disorder): Plan: Continue venlafaxine and sertraline Xanax PRN (6) Hypothyroidism, postablative: Plan: TSH 34. free T4 normal. Continue levothyroxine 300 mcg PO daily repeat in 4 weeks as outpatient she has had widely fluctuating TSH levels over the last few years presumed due to absorption issues from the gut will not make any changes at this time (7) RLS (restless legs syndrome): Plan: Continue pramipexole (8) Hypokalemia: Plan: 2nd to diuretics, diarrhea from lactulose, diarrhea from antibiotics, etc s/p replacement K level wnl today mag levels noted to be normal repeat BMP am for stability cont K supplementation BID dosing (9) Dyspnea: Plan: continues to complain of such consider CTA chest if she continues to have such - at high risk of VTE chest x-ray today -- no obvious infiltrates or pulm edema 2nd to ascites?? Plan VTE Prophylaxis - deferred chemical VTE prophylaxis due to thrombocytopenia and large ecchymosis on her abdominal wall from recent fall d/c tomorrow labs in am updated pt's Augie by phone this evening Admission and Anticipated Discharge Date Admission Date: May 02, 2024 Subjective patient complaint of dyspnea again today still having copious #'s of bowel movements, but she does think it is starting to slow down denies any abdominal pain denies any vomiting eating well headaches resolved symptoms of her effexor withdrawal have resolved Review of Systems Review of Systems: cv - no chest pain, some orthopnea pulm - no cough or wheezing but c/o dyspnea GI - occasional nausea Physical Exam Physical Exam: gen - looks the same as yesterday, NAD neck - no JVD today mouth - no thrush heart - RRR, s1 s2, 2/6 EDUARDO LSB lungs - CTA b/l; no rales or wheeze abd - soft NT ND BS+; paracentesis sites x 2 with sutures intact (left abdomen) ext - 1+ edema b/l; pulses 2+ b/l skin - background of venous stasis changes b/l shins, worse on right; cellulitis much improved/resolving RLE Results & Data Results & Data Vital Signs (Past 12 Hours) Vital Signs Temp Pulse Pulse Resp BP Pulse Ox O2 Del Method 05/07/24 15:55 36.7 C 84 20 122/84 94 Room Air 05/07/24 13:00 92 H 05/07/24 11:23 36.9 C 81 18 110/74 98 Room Air 05/07/24 08:00 79 Laboratory Results Laboratory Results 05/07/24 05:31 Sodium 132 L Potassium 3.6 Chloride 94 L Carbon Dioxide 34 H Anion Gap 4 BUN 15 Creatinine 0.75 Est Cr Clr Drug Dosing 112.1 Est GFR ( Amer) 113.1 Est GFR (Non-Af Amer) 97.6 BUN/Creatinine Ratio 20.0 Glucose 192 H Calcium 7.6 L PG Care Time/CCT Total # of Minutes Spent Total Time Spent with Patient: Total time spent is greater than 50% in coordination of care (as documented) at patient's floor/unit and/or counseling patient: Coding Level of Care Code 04261 SUB INP/OBS CARE 3/50MIN Diagnoses Cellulitis of right lower extremity L03.115 Laterality: right Site of cellulitis: extremity Site of cellulitis of extremity: lower extremity JOANNA (acute kidney injury) N17.9 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 JUSTYN (generalized anxiety disorder) F41.1 Hypothyroidism, postablative E89.0 RLS (restless legs syndrome) G25.81 Hypokalemia E87.6 Dyspnea R06.00 (1) Cellulitis Laterality: right Site of cellulitis: extremity Site of cellulitis of extremity: lower extremity Qualified Code(s): L03.115 - Cellulitis of right lower limb
[2024-05-07 19:54] VITALS: RESP 18
[2024-05-08 03:06] VITALS: BP 124/86
[2024-05-08 08:21] VITALS: TEMP 98; O2SAT 94
[2024-05-08 08:27] LABS: BUN Creatinine Ratio 20.4 (10-20); Calcium 8.5 mg/dl (8.6-10.3); Creatinine Clr Calc Pharmacy 90.4 ml/min; Est GFR (African American) 87.2 ml/min; Est GFR (Non-African American) 75.3 ml/min; Potassium 3.5 mmol/L (3.5-5.1)
[2024-05-08] MEDS ORDERED: LIDOCAINE 1% LOCAL 20 ML VIAL INFIL ONE (10:59)
--- NOTE | 2024-05-08 11:33 | Discharge Summary ---
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: s/p paracentesis by IR 05/03/24 and again today will give albumin 25%, 25gm IV x 1 post-para today she has a recently ruptured umbilical hernia that led to an ascites leak thus tight management of her ascites is necessary no evidence of cellulitis of the umbilical area possibly to get a living donor transplant later this fall at [facility] ([facility]) cont bumex 3mg BID cont aldactone 100mg BID cont salt restricted diet dose of metolazone today HE prophylaxis - cont rifaximin with respect to lactulose -- suspect diarrhea will improve now that rocephin has been stopped but perhaps diarrhea also being worsened by her Ozempic cont lactinex c diff testing negative patient asked to not hold her lactulose any longer (4) Prolonged QT interval: chronic need to keep K and mag wnl prolonged QT has previously been due to psychotropic meds, low K, etc EKG today with mildly prolonged QTc just over 500msec (5) JUSTYN (generalized anxiety disorder): Continue venlafaxine and sertraline Xanax PRN (6) Hypothyroidism, postablative: TSH 34. free T4 normal. Continue levothyroxine 300 mcg PO daily repeat in 4 weeks as outpatient she has had widely fluctuating TSH levels over the last few years presumed due to absorption issues from the gut will not make any changes at this time (7) RLS (restless legs syndrome): Continue pramipexole (8) Hypokalemia: 2nd to diuretics, diarrhea from lactulose, diarrhea from antibiotics, etc s/p replacement K level wnl today mag levels noted to be normal repeat BMP am for stability cont K supplementation BID dosing (9) Dyspnea: continues to complain of such consider CTA chest if she continues to have such - at high risk of VTE chest x-ray today -- no obvious infiltrates or pulm edema 2nd to ascites?? Plan VTE Prophylaxis - deferred chemical VTE prophylaxis due to thrombocytopenia and large ecchymosis on her abdominal wall from recent fall d/c tomorrow labs in am updated pt's Augie by phone this evening Admission HPI Per Admitting Provider Niesha Gutiérrez is a 43 year old female with GILLESPIE liver who presents to the ER with cellulitis. She reports sudden onset of symptoms today with her feeling chills this morning. When she was in the shower she looked down and noticed her right leg swelling and erythematous. Otherwise she fell 2 weeks ago and has large ecchymosis present on the left side of her abdomen which she reports is improving. She also notes they had planned on doing paracentesis tomorrow for her. No concerns for confusion (she has had repeated episodes of hepatic encephalopathy). Discharge Exam gen - looks the same as yesterday, NAD neck - no JVD today mouth - no thrush heart - RRR, s1 s2, 2/6 EDUARDO LSB lungs - CTA b/l; no rales or wheeze abd - soft NT ND BS+; paracentesis sites x 2 with sutures intact (left abdomen) ext - 1+ edema b/l; pulses 2+ b/l skin - background of venous stasis changes b/l shins, worse on right; cellulitis much improved/resolving RLE Discharge Plan Discharge Items Patient Disposition: Home - Home Health Services Reason For Visit: CELLULITIS Discharge Diagnosis: 1. cellulitis of right leg - improved 2. ascites due to cirrhosis - paracentesis performed x 2 3. low potassium - improved 4. prolonged QT interval on EKG 5. type 2 diabetes 6. acute kidney injury - resolved 7. hypothyroidism Activity: Resume your previous activity Non-emergency contact: Primary Care Provider and Specialist Call non-emergency contact if: you have any medication questions, your symptoms worsen and you have a fever Follow-up/Referrals: Spenser Shrestha, [Primary Care Provider] - Diet: Carb Consistent or DM2 and Low Sodium (2gm) Ambulatory Orders: Iron (Routine) Timeframe: 20240510 Location: Determined by Patient Ordered By: Yan Rodriguez Ferritin (Routine) Timeframe: 20240510 Location: Determined by Patient Ordered By: Yan Rodriguez Unsaturated Iron Binding Cap (Routine) Timeframe: [id number] Location: Determined by Patient Ordered By: Yan Darden Attending Provider Instructions: Ms Gutiérrez, You were hospitalized due to right leg skin infection (cellulitis). This improved with IV antibiotics. You have been transitioned over to oral antibiotics and the leg continues to improve. In addition to the skin infection we addressed low potassium, your ascites, and your diabetes. Recommendations - 1. antibiotics for your leg skin infection - cephalexin 500mg three times daily x 4 more days. 2. please take a metolazone diuretic - 2.5mg - about 30 minutes prior to your morning bumetanide at least twice weekly. Your liver doctor in [place] recommended that you do this on the days when you are NOT undergoing a paracentesis. 3. I have changed your potassium supplement over to powder form. You can stop the tablet form of potassium. 4. please check your blood sugars at least 1x/day. Check your sugar first thing upon awakening as this is your fasting blood sugar. Ideally your fasting blood sugar is less than 125 in the morning, and even better -- less than 100. On some days it would be good to check it a 2nd time as well. You can check at bedtime, before dinner, etc. 5. for possible thrush - nystatin solution 5ml four times daily x 7 days, swish and spit. 6. continue your lactulose AT LEAST twice daily to maintain at least 3 bowel movements/day. 7. follow a 2000mg salt restricted diet - see handout. 8. please report at 740am on 05/10/24, to [facility] radiology for your next paracentesis. 9. please have your blood work drawn on 05/10/24, as per usual. Follow-up - * keep any previously scheduled appointments with hepatology in [place] * 05/10/24 - paracentesis with Mr Cole Greene at [facility] * would recommend seeing Dr Workman at [facility] in the next 4-6 weeks for your diabetes * see your family doctor in 1 week Return to [facility] if - * you have worsening shortness of breath * you feel confused or have lethargy/excessive sleepiness * you have abdominal pain * your diarrhea worsens or you see blood in your stools * you have any concerns about your former paracentesis sites or your belly button hernia * you have fever over 100 degrees * any other concerns It was our pleasure to care for you! Pending Studies at Discharge: No Stand-Alone Forms: My [facility] [employer], Smoking Cessation Medications and DC Order Prescriptions: New (DME) OneTouch Verio test strips Strip See Rx Instructions .Route Qty: 100 1RF Rx Instructions: Check blood sugars 1x/day. (DME) lancets [Microlet Lancet] Misc See Rx Instructions .Route Qty: 100 1RF Rx Instructions: Check blood sugars 1x/day. cephalexin 500 mg Capsule 500 mg PO TID 4 Days Qty: 12 0RF potassium chloride 20 mEq Packet 40 meq PO BID Qty: 120 1RF nystatin 100,000 unit/mL suspension 5 ml PO QID 7 Days Qty: 200 0RF Rx Instructions: swish and spit. Continued Ubrelvy 50 mg tablet 50 mg PO .COMPLEX PRN (Reason: headache) Qty: 10 6RF Rx Instructions: 50mg prn migraine, may repeat after two hours prn sumatriptan succinate 50 mg tablet 50 mg PO UD PRN (Reason: Migraine Headache) Rx Instructions: Pt 1-2 tabs po prn for migraine and if migraine continues one hour later pt takes 1 more tab by mouth. valacyclovir 500 mg Tablet 500 mg PO Q8 PRN (Reason: .BREAKOUTS) triamcinolone acetonide 0.1 % Cream 1 applic EXT TID PRN (Reason: dry, itchy skin on legs/abdominal wall) Qty: 15 0RF Combivent Respimat 20-100 mcg/actuation Mist 1 puff INHALATION QID PRN (Reason: cough/wheeze/shortness of breath) Qty: 1 0RF Rx Instructions: space evenly during waking hours clobetasol 0.05 % solution 1 applic TOPICAL BID PRN (Reason: for scalp) [id number]-xtlanriijdree-giww 50-325-40 mg tablet 2 tab PO Q6 MDD 8 tablets PRN (Reason: Pain) promethazine [Promethegan] 25 mg suppository 25 mg WI UD PRN (Reason: Nausea) famotidine 40 mg tablet 40 mg PO QAM omeprazole 40 mg Capsule,Delayed Release(Dr/Ec) 40 mg PO BID prochlorperazine maleate [Compazine] 5 mg tablet 5 mg PO QID PRN (Reason: Nausea) venlafaxine [Effexor XR] 150 mg capsule,extended release 24hr 150 mg PO DAILY Qty: 30 1RF Rx Instructions: Take 150mg w/ 75mg to equal 225mg by mouth once daily. venlafaxine [Effexor XR] 75 mg capsule,extended release 24hr 75 mg PO DAILY Qty: 30 1RF Rx Instructions: Take 75mg w/ 150mg to equal 225mg by mouth once daily. diclofenac sodium [Voltaren Arthritis Pain] 1 % Gel 4 g EXT QID PRN (Reason: right shoulder pain) Qty: 1 0RF Rx Instructions: purchase zuvt-ray-pojglwd. bumetanide 1 mg tablet 3 mg PO BID Qty: 180 0RF Rx Instructions: take each morning upon awakening and then again in the afternoon. cholecalciferol (vitamin D3) 25 mcg (1,000 unit) Tablet,Chewable 25 mcg PO QAM calcium carbonate-simethicone 400-40 mg Tablet,Chewable 1 tab PO TIDM alprazolam 1 mg tablet 1 mg PO BID PRN (Reason: Anxiety) sertraline 100 mg tablet 100 mg PO QAM Rx Instructions: takes with 50 mg tablet for total of 150mg daily sertraline 50 mg tablet 50 mg PO QAM Rx Instructions: takes with 100 mg tablet for a total daily dose of 150 mg Tirosint-Marisa 200 mcg/mL solution 300 mcg PO QAM tizanidine 4 mg tablet 2 mg PO Q6H PRN (Reason: muscle spasms) Linzess 290 mcg Capsule 290 mcg PO QAM Hold Instructions: please hold unless Dr Calvert or Dr Stanley ask you to resume it spironolactone 100 mg tablet 100 mg PO BID Xifaxan 550 mg Tablet 550 mg PO BID Qty: 1 0RF lactulose 10 gram/15 mL (15 mL) Solution 30 g PO TID Qty: 1440 0RF Rx Instructions: take twice or three times daily for at least 3 bowel movements each day magnesium oxide 400 mg magnesium tablet 400 mg PO DAILY Qty: 30 5RF pramipexole 0.5 mg tablet 0.5 mg PO TID tramadol 50 mg tablet 50 mg PO Q6H PRN (Reason: Pain) metolazone 2.5 mg tablet 2.5 mg PO DIRECTED Rx Instructions: taking three times a week. Ozempic 0.25 mg or 0.5 mg (2 mg/3 mL) pen injector 0.25 mg SUBCUT WK Rx Instructions: every friday; patient has today's dose with her Discontinued potassium chloride 10 mEq tablet extended release 40 meq PO BID Discharge Orders: Discharge Order (Routine); Ordered 05/08/24 Ordered By: Yan Tamayo/Other Patient Handouts: Tips for Using Less Salt, Low Salt Diet Dc Admission Data Admit Date/Time: 05/02/24 19:00 Attending Provider: Yan Rodriguez Admit Provider: Yan Stevens Primary Care Provider: Spenser Shrestha Other Providers: [place],Home Care; Yan Stevens Hospital Stay Data Consultations 05/02/24 18:08 ED Decision to Admit Stat Diagnostic Imagining Performed 05/02/24 16:36 US venous doppler LE RT Stat 05/03/24 07:00 IR paracentesis abd w/img US Routine 05/06/24 03:56 IR paracentesis abd w/img US Routine Pending Results Patient Have Any Pending Studies at Discharge: No Discharge Instructions Given to Patient (Per Discharging Provider) Ms Gutiérrez, Ronnell were hospitalized due to right leg skin infection (cellulitis). This improved with IV antibiotics. You have been transitioned over to oral antibiotics and the leg continues to improve. In addition to the skin infection we addressed low potassium, your ascites, and your diabetes. Recommendations - 1. antibiotics for your leg skin infection - cephalexin 500mg three times daily x 4 more days. 2. please take a metolazone diuretic - 2.5mg - about 30 minutes prior to your morning bumetanide at least twice weekly. Your liver doctor in [place] recommended that you do this on the days when you are NOT undergoing a paracentesis. 3. I have changed your potassium supplement over to powder form. You can stop the tablet form of potassium. 4. please check your blood sugars at least 1x/day. Check your sugar first thing upon awakening as this is your fasting blood sugar. Ideally your fasting blood sugar is less than 125 in the morning, and even better -- less than 100. On some days it would be good to check it a 2nd time as well. You can check at bedtime, before dinner, etc. 5. for possible thrush - nystatin solution 5ml four times daily x 7 days, swish and spit. 6. continue your lactulose AT LEAST twice daily to maintain at least 3 bowel movements/day. 7. follow a 2000mg salt restricted diet - see handout. 8. please report at 740am on 05/10/24, to [facility] radiology for your next paracentesis. 9. please have your blood work drawn on 05/10/24, as per usual. Follow-up - * keep any previously scheduled appointments with hepatology in [place] * 05/10/24 - paracentesis with Mr Cole Greene at [facility] * would recommend seeing Dr Workman at [facility] in the next 4-6 weeks for your diabetes * see your family doctor in 1 week Return to [facility] if - * you have worsening shortness of breath * you feel confused or have lethargy/excessive sleepiness * you have abdominal pain * your diarrhea worsens or you see blood in your stools * you have any concerns about your former paracentesis sites or your belly button hernia * you have fever over 100 degrees * any other concerns It was our pleasure to care for you! 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
[2024-05-08 12:26] VITALS: PULSE 91
[2024-05-08] MEDS: LIDOCAINE 2% LOCAL 50 ML VIAL ONE (12:41)
== END 2024-05-08 13:07 | disposition home health service (06) | DRG 603 ==
LOC: ED 15:33 → SUATTDRO 19:00 → 3N 19:00 → 2E 05-05 20:39

== ENCOUNTER 2024-06-02 09:47 | Inpatient (IN) ==
[2024-06-02] MEDS ORDERED: MoRPHine SULFATE 4 MG/ML 1 ML CARP\\VIAL IV PRN (10:14)
--- NOTE | 2024-06-02 10:38 | XRay Report ---
XR chest 1V portable CLINICAL HISTORY: Sepsis TECHNIQUE: Single frontal radiograph of the chest was obtained. Comparison: Comparison is made to chest radiograph 05/07/2024 FINDINGS: ACDF is seen. The cardiomediastinal silhouette is normal. Lungs are underinflated but clear. No evide nce of pleural effusion or pneumothorax. IMPRESSION: No acute abnormalities and in particular no radiographic evidence of pneumonia. ACT 112: Negative or not required by law. Electronically signed by: Mohit Perez M.D. 06/02/2024 10:37 AM
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
[2024-06-02] MEDS: ONDANSETRON INJ 2 MG/ML 2 ML VIAL IV STA (11:09)
[2024-06-02] MEDS: MoRPHine SULFATE 4 MG/ML 1 ML CARP\\VIAL IV STA (11:09)
[2024-06-02] MEDS: CEFEPIME 2000MG 2,000 MG/20 ML SYR IV STA (11:10)
[2024-06-02] MEDS: SODIUM CHLORIDE 0.9% 500 ML IV ONE (11:10)
[2024-06-02 11:22] LABS: Hematocrit (blood only) 29.7 % (37.0-47.0); Hemoglobin 8.9 g/dl (12.0-16.0); Mean Corpuscular Hemoglobin 25.6 pg (25.0-34.0); Mean Corpuscular Volume 85.6 fL (80.0-100.0); Mean Platelet Volume 9.6 fL (9.4-12.4); Platelet Count 47 K/uL (130-400); RDW Coefficient of Variation 22.1 % (11.5-14.5); Red Blood Count 3.47 M/uL (4.20-5.40); White Blood Count 5.23 K/ul (4.8-10.8)
[2024-06-02 11:29] LABS: Alanine Aminotransferase 26 U/L (7-52); Albumin Level 3.4 gm/dl (3.4-5.0); Alkaline Phosphatase 63 U/L (34-104); Anion Gap 5 (3-11); Aspartate Aminotransferase 58 U/L (13-39); BUN Creatinine Ratio 21.3 (10-20); Bilirubin Direct 0.9 mg/dl (0-0.2); Bilirubin,Total 2.6 mg/dl (0.2-1.0); Blood Urea Nitrogen 17 mg/dl (6-23); Calcium 8.3 mg/dl (8.6-10.3); Carbon Dioxide 33 mmol/L (21-32); Chloride 98 mmol/L (98-107); Glucose 147 mg/dl (70-99(Fasting)); Magnesium 1.9 mg/dl (1.7-2.4); Potassium 2.8 mmol/L (3.5-5.1); Sodium 136 mmol/L (136-145); Total Protein 6.6 gm/dl (6.0-8.3); Troponin I High Sensitivity 6.2 pg/ml (0-14)
[2024-06-02 11:32] LABS: INR 1.3 (0.9-1.1); Partial Thromboplastin Ratio 1.2; Partial Thromboplastin Time 31 Seconds (21-31); Prothrombin Time 14.2 Seconds (9.0-12.0)
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
[2024-06-02 12:04] LABS: Anisocytosis Present; Basophils # (auto) 0.03 K/uL (0.00-0.20); Basophils % (auto) 0.6 %; Eosinophils # (auto) 0.02 K/uL (0.00-0.50); Eosinophils % (auto) 0.4 %; Immature Granulocytes # (auto) 0.01 K/uL (0.01-0.20); Immature Granulocytes % (auto) 0.2 %; Lymphocytes # (auto) 0.28 K/uL (1.20-3.40); Lymphocytes % (auto) 5.4 %; Monocytes # (auto) 0.38 K/uL (0.11-0.59); Monocytes % (auto) 7.3 %; Neutrophils # (auto) 4.51 K/uL (1.40-6.50); Neutrophils % (auto) 86.1 %
[2024-06-02] MEDS: POTASSIUM CHLORIDE CRTAB 20 MEQ TABCR PO STA ×3 (12:16→15:42)
[2024-06-02] MEDS: POTASSIUM CHLORIDE / WTR 10 MEQ/100 ML PLCT IV ONE (12:20)
[2024-06-02 13:36] LABS: Appearance Urine Clear (Clear); Bilirubin Urine 1+ (Negative); Blood Urine Negative (Negative); Color Urine Dark Yellow; Glucose Urine UA Negative (Negative); Ketones Urine Negative (Negative); Leukocyte Esterase Urine Negative (Negative); Nitrite Urine Negative (Negative); Protein Urine Negative (Negative); Urobilinogen Urine Negative (Negative); pH Urine 5.5 (4.5-7.5)
[2024-06-02] MEDS ORDERED: DICLOFENAC SOD 1% GEL 100 GM TUBE EXT PRN (13:59)
[2024-06-02] MEDS ORDERED: ALPRAZolam 0.5 MG TABLET PO PRN (13:59)
[2024-06-02] MEDS ORDERED: ONDANSETRON INJ 2 MG/ML 2 ML VIAL IV PRN (13:59)
[2024-06-02] MEDS ORDERED: IPRATROPIUM BROMIDE/ALBUTEROL respimat INH INH PRN (13:59)
[2024-06-02] MEDS ORDERED: CARBOHYDRATES FOR HYPOGLYCEMIA PO PRN (13:59)
[2024-06-02] MEDS ORDERED: GLUCOSE 40% GEL 15 GM TUBE PO PRN (13:59)
[2024-06-02] MEDS ORDERED: GLUCAGON FOR INJ 1 MG VIAL SQ PRN (13:59)
[2024-06-02] MEDS ORDERED: DEXTROSE 50% 50 ML SYRINGE IV PRN (13:59)
[2024-06-02] MEDS ORDERED: SUMAtriptan succinate 50 MG TAB PO PRN (13:59)
[2024-06-02] MEDS ORDERED: GLUCOSE 10 TAB/TUBE PO PRN (13:59)
[2024-06-02] MEDS ORDERED: traMADol HCL 50 MG TABLET PO PRN (13:59)
[2024-06-02] MEDS ORDERED: PROMETHAZINE HCL 25 MG SUPP PR PRN (13:59)
[2024-06-02] MEDS ORDERED: tiZANidine HCL 4 MG TABLET PO PRN (13:59)
[2024-06-02] MEDS: MoRPHine SULFATE 4 MG/ML 1 ML CARP\\VIAL IV PRN (14:18)
[2024-06-02] MEDS ORDERED: Albuterol HFA 8 GM Inhaler (Combivent Respimat P&T Subs) INH PRN (14:45)
[2024-06-02] MEDS ORDERED: Ipratropium HFA Inhaler (Combivent Respimat P&T Subs) INH PRN (14:46)
--- NOTE | 2024-06-02 15:31 | Electrocardiogram Report ---
Test Reason : Blood Pressure : */* mmHG Vent. Rate : 76 BPM Atrial Rate : 76 BPM P-R Int : 152 ms QRS Dur : 100 ms QT Int : 444 ms P-R-T Axes : 60 -3 31 degrees QTcB Int : 499 ms Normal sinus rhythm Low voltage QRS Poor R wave progression, consider anterior AR vs. lead placement vs. LVH Abnormal ECG When compared with ECG of 07-May-2024 06:17, No significant change was found Confirmed by Mikal Blue ([id number]) on 06/02/2024 3:31:36 PM Referred By: Hilda Calvert Confirmed By: Mikal Blue
[2024-06-02] MEDS: LACTULOSE SYRUP 30 GM/45 ML UDP PO STA (15:40)
[2024-06-02] MEDS: BUMETANIDE 1 MG TAB PO SCH (15:41)
[2024-06-02] MEDS: rifAXIMin 550 MG TABLET PO STA (15:42)
[2024-06-02] MEDS: VENLAFAXINE HCL XR 150 MG CAPXR PO STA (15:42)
[2024-06-02] MEDS: PRAMIPEXOLE DIHYDROCHLO 0.5 MG TAB PO SCH (15:43)
[2024-06-02] MEDS: FAMOTIDINE 40 MG TABLET PO ONE (15:43)
[2024-06-02] MEDS: SERTRALINE HCL 100 MG TABLET PO ONE (15:43)
[2024-06-02] MEDS: SPIRONOLACTONE 100 MG TAB PO ONE (15:44)
[2024-06-02] MEDS: CALCIUM CARBONATE 500 MG CHEWABLE TAB PO SCH (15:46)
[2024-06-02 16:09] LABS: BUN Creatinine Ratio 21.6 (10-20); Calcium 8.1 mg/dl (8.6-10.3); Creatinine Clr Calc Pharmacy 112.6 ml/min; Potassium 3.3 mmol/L (3.5-5.1)
--- OUTSIDE RECORDS SUMMARY | 2024-06-02 19:30 | External Medical Summary | Summary of Care ---
Author Name Unknown Organization [facility] Address [address] [place] [address] Phone [phone] Care Team Providers Care Linux Vmware Administrator Name Role Phone Lizeth, Endy Mora DO Primary Care Provider [phone] Encounter Details Date Type Department Care Team (Late st Contact Info) Description 05/17/2024 Result Scan Unspecified Department <No scans attached> Allergies Active Allergy Reactions Criticality Noted Date Comments Codeine Hives 07/18/2012 Metformin Abdominal pain Low 03/30/2013 documented as of this encounter (statuses as of 05/24/2024) Medications Medication Sig Dispensed Refills Start Date [...] suspected opioid overdose. Seek immediate medical attention. [email or web address] Active Prochlorperazine Maleate 5 MG Oral Tablet [...] morning and 1 Tablet before bedtime. Active Jtghjxfpkv-SOAU-Phexk ine 50-325-40 MG Oral Tablet (Fioricet) TAKE [...] in the morning. 90 Tablet 10/03/2023 Active Spironolactone 100 MG Oral Tablet [...] as of this encounter (statuses as of 05/24/2024) Active Problems Problem Noted Date Diagnosed Date [...] as of this encounter (statuses as of 05/24/2024) Resolved Problems Problem Noted Date Diagnosed Date [...] as of this encounter (statuses as of 05/24/2024) Immunizations Name Administration Dates Next Due COVID-19, [...] ([facility] st Contact Info) Description 06/02/2024 9:00 AM EDT Office Visit Hepatology, [facility] [address] [place] [address] Hilda Calvert DO [address] [place] [address] 06/03/2024 8:40 AM EDT Office Visit Dermatology [facility] [address] [place] [address] Saran Knutson PA-C [address] [place] [phone] 06/15/2024 9:15 AM EDT Office Visit Hematology/Oncology [facility] [address] [place] [address] Sandra Evans MD [address] [place] [address] Health Maintenance Due Date Last Done Comments [...] 03/01/2024 09/01/2023, 12/23, 01/23/2022, Additional history exists COVID-19 Vaccine (2023- season) 2024 11/05/2023, 07/02/2022, 01/23/2022, Additional history exists Influenza Vaccine (FLU shot) (#1) 2024 05/21/2023, 05/09/2023, 07/04/2020, Additional history exists TSH 09/01/2024 09/01/2023, 04/26, 12/19/2016, Additional history exists GFR 05/17/2025 05/17/2024, 04/25, 04/16/2024, Additional history exists Lipid Panel 10/23/2028 10/24/2023, 03/2024, 03/05/2017, Additional history exists Pneumococcal Vaccine: Pediatrics (0 to 5 Years) and At-Risk Patients (6 to 64 Years) Completed 06/04/2022, 07/04/2020 HPV (Gardasil) Vaccine Aged Out No lo nger eligible based on patient's age to complete this topic MENINGOCOCCAL (MENACTRA/MENVEO) Aged Out No longer eligible based on patient's age to complete this topic documented as of this encounter Medical Devices Not on filedocumented as of this encounter Procedures Procedure Name Priority Date/Time Associated Diagnosis Comments OUTSIDE LAB RESULTS 05/17/2024 documented in this encounter Results * OUTSIDE LAB RESULTS (05/17/2024) 05/17/2024 No Physician Data Unknown LABORATORY documented in this encounter Advance Directives * Full Code (Latest Code Status on File) Date Activated Date Inactivated Comments 10/15/2007 5:16 PM 10/17/2007 5:01 PM Care Teams Linux Vmware Administrator Relationship Specialty Start Date End Date Endy Stanley DO PCP - General Family Medicine 07/13/18 documented as of this encounter
--- OUTSIDE RECORDS SUMMARY | 2024-06-02 19:30 | External Medical Summary | Summary of Care ---
Author Name Unknown Organization [facility] Address [address] [facility] [place] [address] Phone [phone] Care Team Providers Care Facilities And Grounds Director Name Role Phone Endy Stanley DO Primary Care Provider [phone] Reason for Visit * Reason Comments eRx-Medication Refill Encounter Details Date Type Department Care Team (Late st Contact Info) Description 05/22/2024 Refill Hepatology, [facility] [address] [place] [address] Silva Calvert DO [address] [place] [address] Allergies Active Allergy Reactions Criticality Noted Date [...] 8 hours as needed for Nausea. Active Ipratropium-Albutero l 20-100 MCG/ACT Inhalation Aerosol Solution Inhale 1 Puff by mouth in the morning and 1 Puff at noon and 1 Puff in the evening and 1 Puff before bedtime. Active Naloxone HCl 4 MG/0.1ML Nasal Liquid Administer 0.1 mL into nostril as needed. Administer 1 spray into 1 nostril for suspected opioid overdose. Seek immediate medical attention. [email or web address] Active Prochlorperazine Maleate 5 MG Oral Tablet [...] morning and 1 Tablet before bedtime. Active Rpkgxwlvmt-RJRL-Jejy eine 50-325-40 MG Oral Tablet (Fioricet) TAKE [...] in the morning. 90 Tablet 4 Active Spironolactone 100 MG Oral Tablet (Aldactone)Indicatio ns: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),Splenic vein thrombosis TAKE 1 TABLET BY MOUTH IN THE MORNING AND BEFORE BEDTIME 180 Tablet 1 4 Active Venlafaxine HCl 75 MG Oral Tablet (Effexor) Take 1 Tablet by mouth in the morning and 1 Tablet before bedtime. Active Albumin Human 25 % Intravenous SolutionIndications: [...] 4 Active Bumetanide 1 MG Oral Tablet (Bumex)Indications:L iver cirrhosis secondary to nonalcoholic steatohepatitis ([place]ES[place]E) (HCC) TAKE 1 TABLET BY MOUTH IN THE MORNING AND BEFORE BEDTIME 180 Tablet 1 4 Active Additional Information Patient taking differently: Pt [...] as needed 50 mL 2 4 Active Ozempic (0.25 or 0.5 MG/DOSE) 2 MG/1.5ML Solution Pen-injector (Semaglutide(0.25 or 0.5MG/DOS)) Inject under the skin once a week. Active Potassium Chloride 10 MEQ Oral Packet Take 2 mEq by mouth in the morning and 2 mEq before bedtime. Pt states she is currently taking 40 meq twice daily. Active Sertraline HCl 25 MG Oral Tablet (Zoloft) TAKE 1 TABLET BY MOUTH IN THE MORNING. TAKE WITH 50 MG DOSE FOR A DAILY TOTAL OF 75 MG. 90 Tablet 1 4 Active Sertraline HCl 25 MG Oral Tablet (Zoloft) Take 1 Tablet by mouth in the morning. Take with 50 mg dose to = 75 mg daily.. 90 Tablet 1 4 05/24/20 24 Discontinu ed(Refill) documented as of this [...] encounter Miscellaneous Notes * Telephone Encounter - Silva Calvert DO - 05/24/2024 9:14 AM EDT Signed Prescriptions: Disp Refills Sertraline HCl 25 MG Oral Tablet (Zoloft) 90 Tab*1 Sig: TAKE 1 TABLET BY MOUTH IN THE MORNING. TAKE WITH 50 MG DOSE FOR A DAILY TOTAL OF 75 MG. Authorizing Provider: SILVA CALVERT * Telephone Encounter - Adina Andre LPN - 05/24/2024 8:51 AM EDTPending Prescriptions: Disp Refills Sertraline HCl 25 MG Oral Tablet (Zoloft) 90 Tab*1 Sig: TAKE 1 TABLET BY MOUTH IN THE MORNING. TAKE WITH 50 MG DOSE FOR A DAILY TOTAL OF 75 MG. * Telephone Encounter - Adina Andre LPN - 05/24/2024 8:51 AM EDT Did you pend patient's preferred pharmacy and medication before forwarding?yes Pharmacy: [id number] [address] [place] [address] Pending Prescriptions: Disp Refills Sertraline HCl 25 MG Oral Tablet (Zoloft)*90 Tab*1 Sig: TAKE 1 TABLET BY MOUTH IN THE MORNING. TAKE WITH 50 MG DOSE FOR A DAILY TOTAL OF 75 MG. Last Visit: 04/23/2024 (in office), Visit date not found (telemedicine) Next Visit: 06/02/2024 If no future appointments scheduled, and last appointment is greater than a year ago, please schedule patient for a follow-up appointment Last date the medication was ordered: 09/30/23 Is this request for a controlled substance?No Urine Drug Screen: Results for orders placed or performed in visit on 09/01/23 TOXICOLOGY, URINE SCREEN W/ CONFIRMATION Result Value Amphetamines Screen, U Negative Benzodiazepines Screen, U Negative Cannabinoids Screen, U Negative Cocaine Metabolite Screen, U Negative Fentanyl Screen, U Negative Hydrocodone Screen, U Positive (A) Methadone Metabolite Screen, U Negative Morphine/Codeine Screen, U Negative Oxycodone Screen, U Positive (A) Narrative Cutoff Concentrations: Drug Level Amphetamines 500 ng/mL Benzodiazepines 100 ng/mL Cannabinoids 50 ng/mL Cocaine Metabolite 150 ng/mL Fentanyl 1 ng/mL Hydrocodone / Hydromorphone 300 ng/mL Methadone Metabolite 100 ng/mL Morphine / Codeine 300 ng/mL Oxycodone / Oxymorphone 100 ng/mL Screening results are presumptive and can only be used for medical purposes. Positive screening results are reflexed to confirmatory testing. *Note: Due to a large number of results and/or encounters for the requested time period, some results have not been displayed. A complete set of results can be found in Results Review. Patient Phone Numbers Labs: Lab Results Component Value Date/Time CREAT 1.07 05/17/2024 12:00 AM CREAT 0.8 11/30/2008 12:10 PM POTASSIUM 3.0 (A) 05/17/2024 12:00 AM POTASSIUM Duplicate order. 01/06/2019 02:12 AM POTASSIUM 3.9 11/30/2008 12:10 PM TSH 6.41 (H) 09/01/2023 02:13 PM TSH 0.01 (A) 05/21/2017 12:00 AM TSH 0.49 01/05/2009 11:02 AM LDL 36 09/01/2023 02:13 PM LDL 105.7 03/31/2013 12:00 AM LDL 118 (H) 01/05/2009 09:36 AM LDLCALC 77 10/24/2023 12:00 AM ALT 29 05/10/2024 12:00 AM ALT 32 04/07/2023 03:16 PM ALT 60 (H) 06/30/2009 08:57 AM HGBA1C 4.7 09/01/2023 02:13 PM HGBA1C 5.3 01/03/2023 10:41 AM HGBA1C 5.8 11/30/2008 12:10 PM * Telephone Encounter - Marvin Hillman [facility] - 05/24/2024 8:20 AM EDTPending Prescriptions: Disp Refills Sertraline HCl 25 MG Oral Tablet (Zoloft) 90 Tab*1 Sig: TAKE 1 TABLET BY MOUTH IN THE MORNING. TAKE WITH 50 MG DOSE FOR A DAILY TOTAL OF 75 MG. documented in this encounter Plan of Treatment Upcoming Encounters Date Type Department Care Team (Late st Contact Info) Description 06/02/2024 9:00 AM EDT Office Visit Hepatology, [facility] [address] [facility] [place] [address] Silva Calvert DO [address] [facility] [place] [address] 06/03/2024 8:40 AM EDT Office Visit Dermatology [facility] [address] [place] [phone] Saran Knutson PA-C [address] [place] [address] 06/15/2024 9:15 AM EDT Office Visit Hematology/[place] [place] [address] [place] [phone] Sandra Evans MD [address] [facility] [place] [address] Health Maintenance Due Date Last Done Comments [...] 5:16 PM 10/17/2007 5:01 PM Care Teams Facilities And Grounds Director Relationship Specialty Start Date End Date Endy Stanley DO PCP - General Family Medicine 07/13/18 documented as of this encounter
--- OUTSIDE RECORDS SUMMARY | 2024-06-02 19:30 | External Medical Summary | Summary of Care ---
Author Name Unknown Organization [facility] Address [address] [facility] [place] [address] Phone [phone] Care Team Providers Care Freight Claim Investigator Name Role Phone Endy Stanley DO Primary Care Provider [phone] Encounter Details Date Type Department Care Team (Late st Contact Info) Description 06/01/2024 Orders Only Gastroenterology, [facility] [address] [place] [address] Hilda Calvert DO [address] [place] [address] Allergies Active Allergy Reactions Criticality Noted Date Comments Codeine Hives 07/18/2012 Metformin Abdominal pain Low 03/30/2013 documented as of this encounter (statuses as of 06/01/2024) Medications Medication Sig Dispensed Refills Start Date [...] suspected opioid overdose. Seek immediate medical attention. [email or web address] Active Prochlorperazine Maleate 5 MG Oral Tablet [...] morning and 1 Tablet before bedtime. Active Pgvfmupwtn-RDCJ-Jhjfk ine 50-325-40 MG Oral Tablet (Fioricet) TAKE [...] TOTAL OF 75 MG. 90 Tablet 1 05/24/2024 Active documented as of this encounter (statuses as of 06/01/2024) Active Problems Problem Noted Date Diagnosed Date [...] as of this encounter (statuses as of 06/01/2024) Resolved Problems Problem Noted Date Diagnosed Date [...] as of this encounter (statuses as of 06/01/2024) Immunizations Name Administration Dates Next Due COVID-19, MRNA-LNP, 23-24, P F, 50 MCG/0.5 mL, 12 YRS AND ABOVE, IM (MODERNA-Spikevax) 11/05/2023 H1N1 2009 Influenza, IM 06/28/2009 Seasonal Influenza Vac., MDV , IM, 0.5 mL (Fluzone) 05/09/2023,05/25/2016,06/08/2015, 012,05/10/2009 TDAP, Age 7 and older, IM (Adacel) [...] 06/02/2024 9:00 AM EDT Office Visit Hepatology, [facility] [address] [place] [address] Hilda Calvert, [address] [place] [address] 06/03/2024 8:40 AM EDT Office Visit Dermatology [facility] [address] [place] [phone] Saran Knutson PA-C [address] [place] [address] 06/15/2024 9:15 AM EDT Office Visit Hematology/Oncology [place] [address] [facility] [place] [phone] Sandra Evans MD [address] [facility] [place] [address] Health Maintenance Due Date Last Done Comments [...] 12/23, 01/23/2022, Additional history exists COVID-19 Vaccine ( season) 2024 11/05/2023, 07/02/2022, 01/23/2022, Additional history exists Influenza Vaccine (FLU shot) (#1) 2024 05/21/2023, 05/09/2023, 07/04/2020, Additional history exists TSH 09/01/2024 09/01/2023, 04/26, 12/19/2016, Additional history exists GFR 05/31/2025 05/31/2024, 04/27, 05/17/2024, Additional history exists Lipid Panel 10/23/2028 10/24/2023, [...] Priority Date/Time Associated Diagnosis Comments CHEMISTRY-OUTSIDE Routine 05/31/2024 documented in this encounter Results * (ABNORMAL) CHEMISTRY-OUTSIDE (05/31/2024) Not all results display below - see scan for full detail OUTSIDE LAB (SEE SCANNED REPORT) Comment:SCAN INCL: CMP CREATININE 0.82 0.6 - 1.2 MG/DL OUTSIDE LAB (SEE SCANNED REPORT) EGFR 90.96 OUTSIDE LA B (SEE SCANNED REPORT) POTASSIUM 3.5 3.5 - 5.1 MMOL/L OUTSIDE LAB (SEE SCANNED REPORT) GLUCOSE 117(A) 70 - 99 MG/DL OUTSIDE LAB [...] LAB OUTSIDE LAB (SEE SCANNED REPORT) HEMOGLOBIN, [id number] LAB OUTSIDE LAB (SEE SCANNED REPORT) PHOSPHORUS-OUTSID E LAB OUTSIDE LAB (SEE SCANNED REPORT) PTH-OUTSIDE LAB OUTS GRECIA LAB (SEE SCANNED REPORT) MICROALBUMIN RATIO-OUTSIDE LAB OUTSIDE LA B (SEE SCANNED REPORT) PROTEIN, UA-OUTSIDE LAB OUTSIDE LAB (SEE SCANNED REPORT) HGB OUTSIDE LA B (SEE SCANNED REPORT) 05/31/2024 Hilda Calvert DO LABORATORY OUTSIDE LAB (SEE SCANNED REPORT) documented in this encounter Advance Directives * Full Code (Latest Code Status on File) Date Activated Date Inactivated Comments 10/15/2007 5:16 PM 10/17/2007 5:01 PM Care Teams Freight Claim Investigator Relationship Specialty Start Date End Date Endy Stanley DO PCP - General Family Medicine 07/13/18 documented as of this encounter
--- OUTSIDE RECORDS SUMMARY | 2024-06-02 19:30 | External Medical Summary ---
Author Name UNSPECIFIED Address Unknown Organization [facility] History of Encounters [...] person develops a drug diary or chart Current: Management Of Injec table Medications: Able to take injectable medication(s) at the correct times if: (a) individual syringes are prepared in advance by another person; OR (b) another person develops a drug diary or chart. Problems Primary Home Care Diagnosis ICD Code: L0 3.115, Cellulitis of right lower limb Home Care Diagnosis 1: ICD Code: N17.9, Acute kidney failure, unspecified Home Care Diagnosis 1: Severity Ratin Home Care Diagnosis 2: ICD Code: E87.6, Hypokalemia Home Care Diagnosis 2: Severity Ratin Home Care Diagnosis 3: ICD Code: K75.81, Nonalcoholic steatohepatitis ([place]ILLESPIE) Home Care Diagnosis 3: Severity Ratin Home Care Diagnosis 4: ICD Code: K74.60, Unspecified cirrhosis of liver Home Care Diagnosis 4: Severity Ratin Home Care Diagnosis 5: ICD Code: R18.8, Other ascites Home Care Diagnosis 5: Severity Ratin
[2024-06-02] MEDS: cefTRIAXone SODIUM 2,000 MG/50 ML BAG IV SCH (20:52)
[2024-06-02] MEDS: POTASSIUM CHLORIDE PWD 20 MEQ PACK PO SCH (20:54)
[2024-06-02] MEDS: rifAXIMin 550 MG TABLET PO SCH (20:54)
[2024-06-02] MEDS: LACTULOSE SYRUP 30 GM/45 ML UDP PO SCH (20:54)
[2024-06-02] MEDS: PANTOprazole 40 MG TAB PO SCH (20:54)
[2024-06-02] MEDS: SPIRONOLACTONE 100 MG TAB PO SCH (20:54)
[2024-06-03] MEDS: LEVOTHYROXINE SODIUM 25 MCG TABLET PO SCH (05:17)
[2024-06-03] MEDS: LEVOTHYROXINE SODIUM 100 MCG TABLET PO SCH (05:17)
[2024-06-03 07:02] LABS: Hematocrit (blood only) 28.8 % (37.0-47.0); Mean Corpuscular Hemoglobin 26.2 pg (25.0-34.0); Mean Corpuscular Hgb Conc 31.3 g/dL (32.0-36.0); Mean Corpuscular Volume 83.7 fL (80.0-100.0); Mean Platelet Volume 9.9 fL (9.4-12.4); Platelet Count 56 K/uL (130-400); RDW Coefficient of Variation 22.3 % (11.5-14.5); RDW Standard Deviation 67.1 fL (36.4-46.3); Red Blood Count 3.44 M/uL (4.20-5.40); White Blood Count 5.63 K/ul (4.8-10.8)
[2024-06-03 07:19] LABS: INR 1.3 (0.9-1.1); Prothrombin Time 14.2 Seconds (9.0-12.0)
[2024-06-03 07:20] LABS: Albumin Globulin Ratio 0.9 (0.9-2); Albumin Level 3.2 gm/dl (3.4-5.0); BUN Creatinine Ratio 22.2 (10-20); Bilirubin,Total 2.1 mg/dl (0.2-1.0); C Reactive Protein 9.55 mg/dl (0-0.5); Calcium 8.2 mg/dl (8.6-10.3); Creatinine Clr Calc Pharmacy 116.9 ml/min; Globulin 3.4 gm/dl (2.5-4.0); Potassium 3.6 mmol/L (3.5-5.1); Total Protein 6.6 gm/dl (6.0-8.3)
[2024-06-03] MEDS: LINACLOTIDE 145 MCG CAPSULE PO SCH (08:00)
[2024-06-03] MEDS: MAGNESIUM OXIDE 400 MG TAB PO SCH (08:01)
[2024-06-03] MEDS: SERTRALINE HCL 50 MG TABLET PO SCH (08:01)
[2024-06-03] MEDS: VENLAFAXINE HCL XR 75 MG CAPXR PO SCH (08:01)
[2024-06-03 08:04] LABS: Estimated Average Glucose 100 mg/dl; Hemoglobin A1C 5.1 % (4.5-5.6)
[2024-06-03 08:09] LABS: Anisocytosis Present; Basophils # (auto) 0.04 K/uL (0.00-0.20); Basophils % (auto) 0.7 %; Eosinophils # (auto) 0.09 K/uL (0.00-0.50); Eosinophils % (auto) 1.6 %; Immature Granulocytes # (auto) 0.01 K/uL (0.01-0.20); Immature Granulocytes % (auto) 0.2 %; Lymphocytes # (auto) 0.41 K/uL (1.20-3.40); Lymphocytes % (auto) 7.3 %; Monocytes # (auto) 0.72 K/uL (0.11-0.59); Monocytes % (auto) 12.8 %; Neutrophils # (auto) 4.36 K/uL (1.40-6.50); Neutrophils % (auto) 77.4 %; Ovalocytes 1+; Polychromasia 1+; Tear Drop Cells 1+
[2024-06-03] MEDS: PROCHLORPERAZINE MALEATE 5 MG TAB PO PRN (08:09)
--- OUTSIDE RECORDS SUMMARY | 2024-06-03 08:12 | External Medical Summary | Summary of Care ---
Author Name Unknown Organization [facility] Address [address] [place] [address] Phone [phone] Care Team Providers Care Timber Framer Helper Name Role Phone Endy Stanley DO Primary Care Provider [phone] Reason for Visit * Reason Comments Follow Up Per pt here to f/u f or cirrhosis. Pt had CT 04/27/24 and scheduled for liver transplant 07/05/24 @ [facility]. Pt c/o leg swelling the last two days. R leg is painful. Encounter Details Date Type Department Care Team (Late st Contact Info) Description 06/02/2024 9:00 AM EDT Office Visit Hepatology, [facility] [address] [place] [address] Hilda Calvert DO [address] [place] [address] Other cirrhosis of liver (HCC)* Allergies Active Allergy Reactions Criticality Noted Date Comments Codeine Hives 07/18/2012 Metformin Abdominal pain Low 03/30/2013 Ondansetron 06/02/2024 documented as of this encounter (statuses as of 06/02/2024) Medications Medication Sig Dispensed Refills Start Date [...] overdose. Seek immediate medical attention. [email or web address]?[email or web address] Active Prochlorperazine Maleate 5 MG Oral Tablet [...] morning and 1 Tablet before bedtime. Active Fmpplqawjl-GZCY-Vzify ine 50-325-40 MG Oral Tablet (Fioricet) TAKE [...] Potassium Chloride 10 MEQ Oral Packet Take 40 mEq by mouth in the morning and 40 mEq before bedtime. Pt states she is currently taking 40 meq twice daily. Active Sertraline HCl 25 MG Oral Tablet (Zoloft) TAKE 1 TABLET BY MOUTH IN THE MORNING. TAKE WITH 50 MG DOSE FOR A DAILY TOTAL OF 75 MG. 90 Tablet 1 05/24/2024 Active documented as of this encounter (statuses as of 06/02/2024) Active Problems Problem Noted Date Diagnosed Date [...] as of this encounter (statuses as of 06/02/2024) Resolved Problems Problem Noted Date Diagnosed Date [...] of cervix (uteri) 04/24/2004 05/14/2017 Overview: LG 905, Leep 12/26 and 07/30 ICD-10 update of [...] as of this encounter (statuses as of 06/02/2024) Immunizations Name Administration Dates Next Due COVID-19, [...] Sign Reading Time Taken Comments Blood Pressure 124/68 06/02/2024 9:00 AM EDT Pulse 80 06/02/2024 9:00 AM EDT Temperature 36.7 C (98 F) 06/02/2024 9:00 AM EDT Respiratory Rate - - Oxygen Saturation - - Inhaled Oxygen Concentration - - Weight 103.4 kg (228 lb) 06/02/2024 9:00 AM EDT Height - - Body Mass Index 39.41 10/02/2023 2:26 PM EST documented in this encounter Functional Status Functional Status Response Date of Assess ment Does this person have seriou s difficulty walking or climbing stairs? Yes-has done this two times in the past week 09/01/2023 documented as of this encounter Progress Notes * Hilda Calvert, - 06/02/2024 9:06 AM EDT Hepatology Clinic Note Date of appointment: 06/02/2024 History of Present Illness: Niesha Gutiérrez is [...] DM2. She was just discharged today from [facility] in March. She was admitted [...] Paracentesis of 2.2 L and discharged to [facility] Admitted 02/14 - 02/17/2023 with altered mental status suspected due to hepatic encephalopathy with additional baclofen use and hyponatremia. Baclofen discontinued, mental state improved. Return to [facility] and was discharged home 03/01/2023 Admitted 03/04/2023 - 03/07/2023 for upper abdominal pain, back pain, poor p.o. intake and significant ascites. Admitted multiple times since March for Hepatic encephalopathy Admitted 05/07-05/14 for hepatic encephalopathy. Presented to [facility] for paracentesis and was found [...] She states she was then sent to [place] and underwent a liver biopsy and was told the sample wasn't enough to perform a reading. She states she then went to [place] and had a liver biopsy there and [...] three times weekly. She saw IR in [place] but given her multiple recurrent admissions for [...] times weekly, bleeding. Saw Dr. Titus from [facility]. She is listed for transplant there. She has a potential living donor in May and will find out in the next month if the transplant will be a go or not. She is back to needing a paracentesis once weekly. She was getting it twice weekly but now only needing it once weekly. She states [facility] told her she has a ruptured umbilical hernia but they won't operate and just placed dermabond over the site. She states this has been leaking fluid constantly. She was seen by general surgery and the ER physicians at [facility] but surgery did not feel itneeded any emergent surgical intervention. She states that the transplant team at [facility] will plan tofix it a the time of surgery. Today she is complaining of extensive swelling with rapidly progressive erythema in the right leg. The skin has been weeping, tender to touch, hot, and the erythema has rapidly progressed overnight going up her right leg. Decompensations: Varices: yes Ascites: yes- requiring paracentesis frequently twice weekly at one point. Now down to once weekly. SBP: no HRS: no HE: yes HCC: no Screening: EGD: 2022 [facility] small EV Colonoscopy. none Liver imagin10/2023. [...] Procedure Laterality Date CERVICAL LAMINOPLASTY W/DECOMPRESS 12/[facility]IV[facility] 08/25/2005 w/ BTL COLPSCPY CERVIX W/LOOP ELECT 07/25/2006 Dr Ron [facility] no dysplasia DENTAL SURGERY PROCEDURE NEC wisdom teeth EGD, FLEXIBLE, DIAGNOSTIC N/A 06/18/2016 ESOPHAGOGASTRODUODENOSCOPY (EGD), FLEXIBLE, TRANSORAL, DIAGNOSTIC performed by Lavelle Cervantes DO at ENDOSCOPY [facility] EGD, W/ENDOSCOPIC US N/A 06/18/2016 ESOPHAGOGASTRODUODENOSCOPY (EGD), FLEXIBLE, TRANSORAL, ENDOSCOPIC ULTRASOUND performed by Lavelle Cervantes DO at ENDOSCOPY [facility] ENDOMETRIAL CRYOABLATION US GUIDED 07/25/2006 Dr Ron GALLBLADDER/CHOLECYSTO W/CONT 10/23/2000 patricia lap GASTRIC BAND PLACEMENT/PORT, LAPAROSCOPIC 07/25/2015 REDUCTION OF BREAST 08/25/1994 REMOVAL OF THYROID GLAND 10/15/2007 THYROIDECTOMY COMPLETE performed by YANET ERAZO at OR [facility] REMOVAL OF TONSILS, UNDER AGE 12 REMOVE [...] Current Outpatient Medications Medication Sig Dispense Refill Venlafaxine HCl ER 150 MG Oral Capsule [...] the morning and 1 Capsule before bedtime. Omeprazole 40 MG Oral Capsule Delayed Release [...] every 6 hours as needed for Pain,Mild. Idsodbyrpn-ERRL-Njrbgkfq 50-325-40 MG Oral Tablet (Fioricet) TAKE 2 TABLETS BY MOUTH EVERY 6 HOURS IF NEEDED FOR PAIN - MAX DAILY DOSE OF 8 TABS rifAXIMin 550 MG Oral Tablet (Xifaxan) Take 1 Tablet by mouth in the morning and 1 Tablet before bedtime. 180 Tablet 3 Levothyroxine Sodium 25 MCG Oral Tablet (Levoxyl) Take 1 Tablet by mouth in the morning. Sertraline HCl 50 MG Oral Tablet (Zoloft) Take 1 Tablet by mouth in the morning. 90 Tablet 0 Spironolactone 100 MG Oral Tablet (Aldactone) TAKE [...] 3mg in the PM) 180 Tablet 1 Ozempic (0.25 or 0.5 MG/DOSE) 2 MG/1.5ML Solution Pen-injector (Semaglutide(0.25 or 0.5MG/DOS)) Inject under the skin once a week. Potassium Chloride 10 MEQ Oral Packet Take 40 mEq by mouth in the morning and 40 mEq before bedtime. Pt states she is currently taking 40 meq twice daily. Sertraline HCl 25 MG Oral Tablet (Zoloft) TAKE 1 TABLET BY MOUTH IN THE MORNING. TAKE WITH 50 MG DOSE FOR A DAILY TOTAL OF 75 MG. 90 Tablet 1 ONETOUCH ULTRASOFT LANCETS [facility] use as directed [address] TRETINOIN [...] suspected opioid overdose. Seek immediate medical attention. [email or web address].com/[email or web address]?v=[email or web address] (Patient not taking: Reported on 11/27/2023) Sennosides-Docusate [...] mEq before bedtime. (Patientnot taking: Reported on 06/02/2024) Midodrine HCl 2.5 MG Oral Tablet (Proamatine) Take 1 Tablet by mouth in the morning and 1 Tablet atnoon and 1 Tablet before bedtime. (Patient not taking: Reported on 04/23/2024) Sucralfate 1 GM Oral Tablet (Carafate) Take [...] 140. (Patient not taking: Reported on 04/23/2024) Albumin Human 25 % Intravenous Solution If [...] bedtime. (Patient not taking: Reported on 04/23/2024) Clobetasol Propionate 0.05 % External Solution apply to the scalp 1-2 times daily as needed 50 mL 2 No current facility-administered medications for this visit. Review of patient's allergies indicates: Allergen Reactions Codeine Hives Zofran [Ondansetron] Metformin Abdominal pain Physical Exam: vitals: BP 124/68 | Pulse 80 | Temp 36.7 C (98 F) | Wt 103.4 kg (228 lb) | BMI 39.41 kg/m | BSA 2.16 m GENERAL: Chronically ill appearing. Slow to [...] is reducible. It is very hard to palpation. EXTREMITIES: No palmar erythema, 4+ RLE swelling, 3+ LLE swelling. The RLE is weeping, extremely tender to palpation, hot to touch, and is erythematous with the erythema progressing up into the thigh. This area was marked with a sharpie. Petechia also noted behind the RLE. NEURO: No asterixis present on exam. Recent [...] 04/16/2024 12:33 PM Recent Imaging Studies: Reviewed CT abdomen without contrast 04/23/2024: IMPRESSION: 1. A left flank hematoma measures approximately 12.7 x 2.5 x 9.2 cm. A smaller left flank/left low back hematoma more inferiorly measures 2.4 x 1.5 x 1.7 cm. 2. No retroperitoneal hematoma. 3. Cirrhosis with evidence of portal hypertension including splenomegaly and abdominal varices. 4. Moderate volume ascites. DEXA scan 10/30/2023: Impression Based on the [...] enhancing liver lesions. Liver doppler US 05/09/2023 [facility]: IMPRESSION: 1. No flow was [...] liver morphology and ascites. CT abd/pelvis 03/26/2023 [facility]: IMPRESSION: 1. The liver is [...] had an EGD in November 2022 through [facility] with small/trace varices. Denies any history of banding. Due for EGD now but will hold off at this time since she is undergoing a living donor liver transplant next month. -Fluid status: based on today's physical exam, the pt. Has 4+ LE edema and moderate ascites. She jeovany bumex 3 mg BID and aldactone 100 mg BID. Recently started on metolazone 2.5 mg three times weekly by [facility] hepatology. I strongly encouraged her to follow a low sodium diet no more than 2 grams/daily. She was seen by IR and felt to be a very poor candidate for TIPS given recurrent admissions for HE. She has been getting a paracentesis twice weekly for quite some time. -Hepatic encephalopathy: based on today's examination, the [...] in conjunction with an AFP. Due again now which was ordered. -Avoid liver toxins including over the counter herbal supplements. May take Acetaminophen up to 2 grams a day. Avoid NSAIDS due to increased risk of GI bleeding and fluid retention. Avoid all alcohol. Patient encouraged to avoid benzodiazepines and opiate pain medications due to risk of precipitating HE. -Transplant evaluation: Completed transplant and listed through [facility]. MELD is only 12 but she is very decompensated getting admitted at least 1-3x monthly with HE and ascites. She was evaluated by the [facility] committee and they wanted her to be weaned off all narcotics, start with physical therapy, and see her neurologist for clearance. She then saw Dr. Titus from [facility] and is listedfor transplant there. She has a living donor and will be getting a liver transplant next month!! Scheduled for July 05. -Debility/sarcopenia: boost/ensure BID -Initially saw Dr. Evans from hematology for her portal vein and splenic vein thrombus and he recommended Lovenox once daily. he ended up discontinuing this on 07/29 given her low platelets, ongoing need for paracentesis 1-2 times weekly, bleeding. She continued to follow with Dr. Evans last seen 02/2024. -Umbilical hernia. Has been leaking. States she was seen by the ER and general surgery at [facility] with no plans for surgery at this time. They placed dermabond over it. Transplant is planning to fix her umbilical hernia at the time of her living donor. Advised to watch out for signs including st rangulation, abdominal pain, redness that would require urgent ER evaluation. -Today she is complaining of extensive swelling with rapidly progressive erythema in the right leg.The skin has been weeping, tender to touch, hot, and the erythema has rapidly progressed overnight going up her right leg. I advised that she needs to go to [facility] ER to get imaging of her leg to rule out DVT and then if determined to be a bad cellulitis she would need admitted for IV antibiotics. I called [place] ER and spoke with the charge nurse and let them know she would be coming. -Follow up to be determined after liver transplant next month and hospital visit to [facility]. Hilda Calvert, Gastroenterology and Hepatology I spent a total of 55 minutes on the date of service in review of patient's record, and previously obtained information in person and appropriate medical visit, discussion and education of plan, withpatient and/or caregiver, placing orders for tests/referral/procedures as medically necessary and documentation of pertinent clinical information in patient's medical records for their visit today. documented in this encounter Nursing Notes * Keira Goldman CMA - 06/02/2024 8:59 AM EDT Chief Complaint Patient presents with Follow Up Per pt here to f/u for cirrhosis. Pt had CT 04/27/24 and scheduled for liver transplant 07/05/24 @ [facility]. Pt c/o leg swelling the last two days. R leg is painful. documented in this encounter Plan of Treatment Upcoming Encounters Date Type Department Care Team ([facility] st Contact Info) Description 06/03/2024 8:40 AM EDT Office Visit Dermatology [facility] [address] [place] [address] Saran Knutson PA-C [address] [place] [id number] 06/15/2024 9:15 AM EDT Office Visit Hematology/Oncology [facility] [address] [place] [id number] Sandra Evans MD [address] [place] [address] Health Maintenance Due Date Last Done Comments [...] 5:16 PM 10/17/2007 5:01 PM Care Teams Timber Framer Helper Relationship Specialty Start Date End Date Endy Stanley DO PCP - General Family Medicine 07/13/18 documented as of this encounter"
[2024-06-03] MEDS ORDERED: metOLazone 2.5 MG TABLET PO SCH (09:00)
[2024-06-03] MEDS: VENLAFAXINE HCL XR 150 MG CAPXR PO SCH (10:52)
[2024-06-03] MEDS: FAMOTIDINE 40 MG TABLET PO SCH (10:52)
[2024-06-03] MEDS: SERTRALINE HCL 100 MG TABLET PO SCH (10:52)
--- NOTE | 2024-06-03 15:17 | Hospitalist Progress Note ---
Date of Service June 03, 2024 Assessment & Plan (1) Cellulitis of leg, right: Plan: New onset RLE erythema and swelling Hx of cellulitis; no history of MRSA; patient denies purulent drainage Rocephin 2000 mg IV q24h Remains with bright red tender demarcated erythema and slightly uptrending inflammatory markers. Given antibiotics were initiated less than 24 hours ago will continue current antibiotics at this time however if CRP continues to uptrend or if patient begins to appear septic/toxic will escalate antibiotics to Zosyn at that time. 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: Plan: Patient requires recurrent paracentesis every Friday and due to recurrent ascites Scheduled for liver transplant on July 05 IR US-guided paracentesis scheduled for the morning of 06/03, no fluid amenable to tap was noted at that time although did have about a liter of total estimated fluid Will be reevaluated by IR 06/04/2024 (3) Thrombocytopenia: Plan: Platelet count 47 on arrival Hold chemical DVT PPx (4) Anemia: Plan: Chronic; Hgb 8.9 on arrival No signs of active bleeding on clinical exam Trend CBC (5) Type 2 diabetes mellitus: Plan: Last A1c at 5.2% on 02/18/2024 Will defer insulin at this time T2DM diet BSG ACHS Adjust regimen as needed AM A1c (6) Hypokalemia: Plan: K 2.8 on arrival Patient declined K rider IV on arrival Potassium chloride 60mEq p.o. ordered Continue Bumex, continue potassium supplementation Continue spironolactone Plan Disposition: Admit to [facility] telemetry Full code T2DM diet VTE PPx: Hold mechanical DVT PPx in the setting of RLE cellulitis; hold chemical DVT PPx due to thrombocytopenia and scheduled paracentesis Admission and Anticipated Discharge Date Admission Date: June 02, 2024 Subjective Patient is seen at the bedside. She is mentating normally and answers questions appropriately. She reports that she did not have fevers or chills overnight but her right leg continues to be warm red swollen and painful. Thinks this is about the same as last night. No abdominal pain, abdomen is chronically distended. Was seen by IR today had about 1 L of fluid but not amenable to paracentesis, patient be reevaluated tomorrow by IR. Physical Exam Physical Exam: General: A&Ox3. NAD. Cooperative. HEENT: Atraumatic, normocephalic. Vision and hearing grossly Pulm: CTAB A&P. -wheezes, -rales, -rhonchi. Symmetrical chest rise. No increased work of breathing. No respiratory distress. Cardiac: RRR, -mrg. Radial pulses intact and symmetrical. Abdominal: Distended, slight fluid wave. Soft. Nontender Extremities: Right lower extremity with demarcated bright red erythema with warmth and tenderness Results & Data Results & Data Vital Signs (Past 12 Hours) Vital Signs Temp Pulse Pulse Resp BP Pulse Ox O2 Del Method 06/03/24 15:02 36.8 C 83 18 146/96 H 98 Room Air 06/03/24 12:11 36.8 C 83 18 144/84 H 96 Room Air 06/03/24 07:47 36.6 C 86 16 134/77 97 Room Air 06/03/24 07:15 Room Air 06/03/24 05:59 76 06/03/24 03:49 36.9 C 83 18 126/84 91 Room Air PG Care Time/CCT Total # of Minutes Spent Total Time Spent with Patient: Total time spent is greater than 50% in coordination of care (as documented) at patient's floor/unit and/or counseling patient: Coding Level of Care Code 87888 SUB INP/OBS CARE 3/50MIN Diagnoses Cellulitis of leg, right L03.115 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
[2024-06-04 07:23] LABS: Basophils # (auto) 0.04 K/uL (0.00-0.20); Basophils % (auto) 0.9 %; Eosinophils # (auto) 0.19 K/uL (0.00-0.50); Eosinophils % (auto) 4.1 %; Hemoglobin 8.9 g/dl (12.0-16.0); Immature Granulocytes # (auto) 0.02 K/uL (0.01-0.20); Immature Granulocytes % (auto) 0.4 %; Lymphocytes # (auto) 0.55 K/uL (1.20-3.40); Lymphocytes % (auto) 11.9 %; Mean Corpuscular Hemoglobin 25.8 pg (25.0-34.0); Mean Corpuscular Hgb Conc 30.7 g/dL (32.0-36.0); Mean Corpuscular Volume 84.1 fL (80.0-100.0); Mean Platelet Volume 10.4 fL (9.4-12.4); Monocytes # (auto) 0.58 K/uL (0.11-0.59); Monocytes % (auto) 12.5 %; Neutrophils # (auto) 3.26 K/uL (1.40-6.50); Neutrophils % (auto) 70.2 %; Platelet Count 60 K/uL (130-400); RDW Coefficient of Variation 22.5 % (11.5-14.5); RDW Standard Deviation 67.7 fL (36.4-46.3); Red Blood Count 3.45 M/uL (4.20-5.40); White Blood Count 4.64 K/ul (4.8-10.8)
[2024-06-04 07:33] LABS: Albumin Globulin Ratio 0.9 (0.9-2); Albumin Level 3.1 gm/dl (3.4-5.0); BUN Creatinine Ratio 19.5 (10-20); Bilirubin,Total 1.5 mg/dl (0.2-1.0); C Reactive Protein 7.71 mg/dl (0-0.5); Calcium 7.7 mg/dl (8.6-10.3); Creatinine Clr Calc Pharmacy 108.9 ml/min; Globulin 3.3 gm/dl (2.5-4.0); Potassium 3.8 mmol/L (3.5-5.1); Total Protein 6.4 gm/dl (6.0-8.3)
[2024-06-04 08:13] LABS: Anisocytosis Present; Ovalocytes 1+; Polychromasia 1+; Tear Drop Cells 1+
--- NOTE | 2024-06-04 11:33 | Ultrasound Report ---
ULTRASOUND-GUIDED PARACENTESIS CLINICAL HISTORY: Ascites PROCEDURE: Procedure and risks were explained. Informed consent was obtained. A final timeout was com pleted. The abdomen was prepped and draped in sterile fashion. 1% lidocaine was utilized for skin ane sthesia. Utilizing ultrasound guidance, a 5 Pashto safety centesis catheter was advanced into the left upper q uadrant pocket of ascites. Ultrasound images were obtained. A total of 1400 mL of ascites fluid was r emoved and discarded. The catheter was removed and (1) 3-0 nylon suture was utilized to close the pun cture site. The patient tolerated the procedure well. Vital signs will be monitored postprocedure. IMPRESSION: Ultrasound-guided paracentesis as above. Performed, dictated, and signed by Marvin Greene PA-C; to be co-signed by Dr. Lorenzo Ocampo. Electronically signed by: Lorenzo Ocampo M.D. 06/04/2024 12:07 PM
--- NOTE | 2024-06-04 11:33 | Hospitalist Progress Note ---
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: Plan: transplant coord [place] [phone], fax [phone], physician med call line [phone] Left voicemail with plant operations coordinator to update [facility] team on hospital admission and current status S/p paracentesis 06/04 for 1.5 L of fluid Next paracentesis anticipated next week MELD score 11, no acute cirrhotic decompensation at this time (3) Thrombocytopenia: Plan: Patient is chronically thrombocytopenic however has also had a history of VTE Given high risk of recurrent thrombosis with current infection and stasis while there is a risk of bleeding, development of VTE is highly likely to delay her l iver surgery scheduled for next month. On shared decision making we will continue Lovenox 40 mg daily for DVT prophylaxis, trend hemoglobin and platelet count daily. Discontinue Lovenox if platelet count decreases <50. (4) Anemia: Plan: Chronic; Hgb 8.9 on arrival No signs of active bleeding on clinical exam Trend CBC (5) Type 2 diabetes mellitus: Plan: Last A1c at 5.2% on 02/18/2024 Will defer insulin at this time T2DM diet BSG ACHS Adjust regimen as needed AM A1c (6) Hypokalemia: Plan: Potassium 3.8 following supplementation, continue to trend daily Plan Disposition: Admit to [facility] telemetry Full code T2DM diet VTE PPx: Lovenox, see VTE discussion above Admission and Anticipated Discharge Date Admission Date: June 02, 2024 Subjective Continues to mentate normally. No fevers or chills overnight. Right leg continues to be painful above the knee with some swelling, however erythema is starting to receded slightly. CRP is slightly downtrending. She is worried about a blood clot otherwise no overnight events. No abdominal pain. Took around 1.5 L with paracentesis this morning feels improved with this. Physical Exam Physical Exam: General: A&Ox3. NAD. Cooperative. HEENT: Atraumatic, normocephalic. Vision and hearing grossly intact Pulm: CTAB A&P. -wheezes, -rales, -rhonchi. Symmetrical chest rise. No increased work of breathing. No respiratory distress. Cardiac: RRR, -mrg. Radial pulses intact and symmetrical. Abdominal: Softly distended. Nontender Extremities: Right lower extremity with demarcated bright red erythema with warmth and tenderness receding from marked surgical lines Results & Data Results & Data Vital Signs (Past 12 Hours) Vital Signs Temp Pulse Pulse Resp BP Pulse Ox O2 Del Method 06/04/24 08:07 36.7 C 72 20 109/64 99 Room Air 06/04/24 05:36 77 06/04/24 03:48 36.6 C 77 18 114/68 96 Room Air PG Care Time/CCT Total # of Minutes Spent Total Time Spent with Patient: Total time spent is greater than 50% in coordination of care (as documented) at patient's floor/unit and/or counseling patient: Coding Level of Care Code 41770 SUB INP/OBS CARE 3/50MIN Diagnoses Cellulitis of leg, right L03.115 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
--- NOTE | 2024-06-04 13:44 | Ultrasound Report ---
ULTRASOUND RIGHT LOWER EXTREMITY VENOUS CLINICAL HISTORY: Right leg pain and swelling. Erythema. COMPARISON STUDY: Right lower extremity venous ultrasound dated 05/02/2024. TECHNIQUE: Real-time, grayscale, and color Doppler sonography of the deep veins of the right lower ex tremity was performed from the inguinal crease to the calf. Compression and augmentation were utilize d. FINDINGS: There is no sonographic evidence of deep venous thrombosis identified in the right lower ex tremity. The common femoral, superficial femoral, and popliteal veins are patent and normally michel sible. The greater saphenous vein and the profunda femoris vein at the junction with the common femor al vein are clear. The visualized calf veins are patent. Soft tissue edema is seen in the calf. IMPRESSION: There is no sonographic evidence of deep venous thrombosis identified in the right lower extremity. ACT 112: Negative or not required by law. Electronically signed by: Davide Vines M.D. 06/04/2024 1:42 PM
[2024-06-04] MEDS: MoRPHine SULFATE 2 MG/ML CARP IV PRN (15:32)
[2024-06-04] MEDS: ENOXAPARIN INJ 40 MG/0.4 ML SYR SQ SCH (19:56)
[2024-06-05 06:57] LABS: Basophils # (auto) 0.03 K/uL (0.00-0.20); Eosinophils # (auto) 0.17 K/uL (0.00-0.50); Eosinophils % (auto) 5.5 %; Hematocrit (blood only) 29.1 % (37.0-47.0); Hemoglobin 8.9 g/dl (12.0-16.0); Immature Granulocytes # (auto) 0.01 K/uL (0.01-0.20); Immature Granulocytes % (auto) 0.3 %; Mean Corpuscular Hemoglobin 26.3 pg (25.0-34.0); Mean Corpuscular Hgb Conc 30.6 g/dL (32.0-36.0); Mean Corpuscular Volume 86.1 fL (80.0-100.0); Monocytes # (auto) 0.29 K/uL (0.11-0.59); Monocytes % (auto) 9.4 %; Neutrophils # (auto) 2.18 K/uL (1.40-6.50); Neutrophils % (auto) 70.8 %; Platelet Count 61 K/uL (130-400); RDW Coefficient of Variation 23.5 % (11.5-14.5); RDW Standard Deviation 71.8 fL (36.4-46.3); Red Blood Count 3.38 M/uL (4.20-5.40); White Blood Count 3.08 K/ul (4.8-10.8)
[2024-06-05 07:26] LABS: Ovalocytes 1+; Polychromasia 1+
[2024-06-05 07:29] LABS: BUN Creatinine Ratio 20.2 (10-20); Bilirubin,Total 1.2 mg/dl (0.2-1.0); Calcium 7.4 mg/dl (8.6-10.3); Globulin 3.1 gm/dl (2.5-4.0); Potassium 3.9 mmol/L (3.5-5.1); Total Protein 6.1 gm/dl (6.0-8.3)
[2024-06-05 08:11] LABS: C Reactive Protein 5.38 mg/dl (0-0.5)
[2024-06-05] MEDS ORDERED: ENOXAPARIN INJ 40 MG/0.4 ML SYR SQ SCH (09:00)
--- NOTE | 2024-06-05 10:33 | Hospitalist Progress Note ---
Date of Service June 05, 2024 Assessment & Plan (1) Cellulitis of leg, right: Plan: New onset RLE erythema and swelling Hx of cellulitis; no history of MRSA; patient denies purulent drainage Rocephin 2000 mg IV q24h Erythema and pain approximately 80% improved. Patient can now tolerate leg wraps. 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: Plan: transplant coord Opal [phone], fax [phone], physician med call line [phone] Left voicemail with alumni relations coordinator to update [facility] team on hospital admission and current status S/p paracentesis 06/04 for 1.5 L of fluid Next paracentesis anticipated next week MELD score 11, no acute cirrhotic decompensation at this time (3) Thrombocytopenia: Plan: Patient is chronically thrombocytopenic however has also had a history of VTE Given high risk of recurrent thrombosis with current infection and stasis while there is a risk of bleeding, development of VTE is highly likely to delay her liver surgery scheduled for next month. On shared decision making we will continue Lovenox 40 mg daily for DVT prophylaxis, trend hemoglobin and platelet count daily. Discontinue Lovenox if platelet count decreases <50. (4) Anemia: Plan: Chronic; Hgb 8.9 on arrival No signs of active bleeding on clinical exam Trend CBC (5) Type 2 diabetes mellitus: Plan: Last A1c at 5.2% on 02/18/2024 Will defer insulin at this time T2DM diet BSG ACHS Adjust regimen as needed AM A1c (6) Hypokalemia: Plan: Potassium 3.8 following supplementation, continue to trend daily Plan Disposition: Admit to [facility] telemetry Full code T2DM diet VTE PPx: Lovenox, see VTE discussion above Admission and Anticipated Discharge Date Admission Date: June 02, 2024 Subjective Seen at the bedside. Rapidly improving, still does have some significant pain in her right leg with swelling but the erythema is markedly reduced from prior exam and CRP is downtrending. Will continue IV antibiotics today, and convert to orals with hopeful progression to home tomorrow. She does have some evidence of volume overload and likely has an additional underlying stasis dermatitis component in addition to her cellulitis; now that her right lower extremity cellulitis is improved enough discussed using venous stasis mobilization strategies including a leg wrap to help mobilize fluid and trial a dose or 2 of IV Bumex to which patient is agreeable. No fever chills or sweats. No abdominal pain. No shortness of breath or respiratory pleuritic pain. Progressing well Physical Exam Physical Exam: General: A&Ox3. NAD. Cooperative. HEENT: Atraumatic, normocephalic. Vision and hearing grossly intact Pulm: CTAB A&P. -wheezes, -rales, -rhonchi. Symmetrical chest rise. No increased work of breathing. No respiratory distress. Cardiac: RRR, -mrg. Radial pulses intact and symmetrical. Abdominal: Softly distended. Nontender Extremities: Right lower extremity erythema remains but is greatly improved from prior. Tenderness approximately 80% improved. Is with bilateral pitting edema 2+ and some venous stasis changes Results & Data Results & Data Vital Signs (Past 12 Hours) Vital Signs Temp Pulse Resp BP Pulse Ox O2 Del Method 06/05/24 07:34 36.6 C 74 18 112/73 98 Room Air 06/05/24 03:46 36.5 C 71 18 122/82 96 Room Air 06/05/24 00:04 36.6 C 72 20 107/74 96 Room Air PG Care Time/CCT Total # of Minutes Spent Total Time Spent with Patient: Total time spent is greater than 50% in coordination of care (as documented) at patient's floor/unit and/or counseling patient: Coding Level of Care Code 62500 SUB INP/OBS CARE 3/50MIN Diagnoses Cellulitis of leg, right L03.115 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
[2024-06-05] MEDS: BUMETANIDE 3 MG in SYRINGE 0 ML IV ONE (15:57)
[2024-06-05] MEDS: KETOCONAZOLE 2% CR 15 GM TUBE EXT SCH (19:52)
[2024-06-06 07:03] LABS: Basophils # (auto) 0.03 K/uL (0.00-0.20); Basophils % (auto) 0.9 %; Eosinophils # (auto) 0.14 K/uL (0.00-0.50); Eosinophils % (auto) 4.1 %; Hematocrit (blood only) 28.2 % (37.0-47.0); Hemoglobin 8.8 g/dl (12.0-16.0); Immature Granulocytes # (auto) 0.02 K/uL (0.01-0.20); Immature Granulocytes % (auto) 0.6 %; Lymphocytes # (auto) 0.41 K/uL (1.20-3.40); Mean Corpuscular Hemoglobin 26.5 pg (25.0-34.0); Mean Corpuscular Hgb Conc 31.2 g/dL (32.0-36.0); Mean Corpuscular Volume 84.9 fL (80.0-100.0); Mean Platelet Volume 9.8 fL (9.4-12.4); Monocytes # (auto) 0.31 K/uL (0.11-0.59); Monocytes % (auto) 9.1 %; Neutrophils % (auto) 73.3 %; Platelet Count 54 K/uL (130-400); RDW Coefficient of Variation 23.7 % (11.5-14.5); RDW Standard Deviation 70.8 fL (36.4-46.3); Red Blood Count 3.32 M/uL (4.20-5.40); White Blood Count 3.41 K/ul (4.8-10.8)
[2024-06-06 07:19] LABS: Albumin Globulin Ratio 0.9 (0.9-2); Albumin Level 2.9 gm/dl (3.4-5.0); Bilirubin,Total 1.2 mg/dl (0.2-1.0); Calcium 7.3 mg/dl (8.6-10.3); Creatinine Clr Calc Pharmacy 105.6 ml/min; Globulin 3.1 gm/dl (2.5-4.0); Potassium 4.1 mmol/L (3.5-5.1)
--- NOTE | 2024-06-06 07:27 | Discharge Summary ---
Date of Service June 06, 2024 Admission HPI Per Admitting Provider Niesha is a 43-year-old female with PMH of liver 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, hepatic encephalopathy, portal vein thrombosis, occipital neuralgia, anasarca, depression, thrombocytopenia, and T2DM. Patient was sent in by Dr. Wick's office (hepatology) for 4+ pitting edema of the RLE and cellulitis on 06/02. She reports that the erythema and redness started a few days ago and has gradually progressed. Last night it was "miserable" and started spreading above the knee and towards her groin. She rates the pain 8/10 at present, 10/10 at worst. She describes it as a constant pain that feels like a "fullness" and "heaviness". No radiation above the right lower extremity. She also characterizes it as a "burning" pain that is better with ice. She has been taking Tylenol for the pain. Of note, she was told by her transplant doctor that she can only take 2 g, however there was some confusion with this and she has been taking 2 g every 6 hours as needed for pain (not daily). No sick contacts. Patient got her flu/COVID shot yesterday. She does have a history of cellulitis, but denies history of MRSA infection. No purulent drainage from her leg, but some weeping. Patient is currently scheduled for a liver transplant on July 05. She receives paracentesis twice weekly (on Friday and ). No history of DVT/PE. No recent injuries to the right lower extremity. Patient did not take her regular morning medications today. Patient's vitals are stable at time of admission. ED course: Cefepime 2000 mg IV Morphine sulfate 4 mg IV NSS 500 mL IV K 20mEq ROS: Patient endorses worsening erythema/swelling in the RLE, congestion, headache, nausea, orange urine (which she attributes to liver disease / lactulose), and numbness/tingling in the top of the right foot. Patient denies fever, chills, night-sweats, chest pain, SOB, pleuritic CP, cough, abdominal pain, vomiting, diarrhea (not currently, but occassionally with lactulose), changes in urinary/bowel habits, burning with urination, and dysuria. Discharge Data Consultations 06/02/24 11:55 ED Decision to Admit Stat Hospital Course (1) Cellulitis of leg, right: Chaparrita is a 43-year-old female with Gillespie cirrhosis who presented with recurrent right lower extremity cellulitis. Right lower extremity was with asymmetric swelling, sharply demarcated erythema, warmth, and tenderness. She was treated with Rocephin. After approximately 36 hours had rapid improvement in erythema receding from marked borders and downtrending CRP consistent with good response. She was observed to have superimposed increased lower extremity edema which was treated with IV Bumex x 1 then with home Bumex resumed, and leg compression to help mobilize fluid following improvement in erythema to which patient tolerated well. On exam her right lower extremity was with calf discomfort and a thick cording quality to the medial popliteal vasculature, Doppler was obtained to rule out DVT. No DVT was observed. She was kept on Lovenox DVT prophylaxis during admission. She is anticipating a liver transplant on July 05. While she has chronic thrombocytopenia platelet count generally ranges around 60. Her risk of DVT is also high and is not protected from any type of auto anticoagulation; recommended that as long as renal function is normal and platelet count is above 50 that patient be on Lovenox as a small amount of bleeding is likely to be controlled however a acute VTE event is likely to interfere with her liver transplant. As such was continued on DVT prophylaxis with no bleeding complications during admission. She was discharged home with routine follow-up. To do as outpatient: 1. Complete 5 additional days with cefdinir 300 mg p.o. twice daily for cellulitis 2. Continue home diuretics 3. Follow-up for routine outpatient paracentesis the following week 4. 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: transplant coord Opal [phone], fax [phone], physician med call line [phone] Left voicemail with cash applications coordinator to update [facility] team on hospital admission and current status S/p paracentesis 06/04 for 1.5 L of fluid Next paracentesis anticipated next week MELD score 11, no acute cirrhotic decompensation at this time (3) Thrombocytopenia: Patient is chronically thrombocytopenic however has also had a history of VTE Given high risk of recurrent thrombosis with current infection and stasis while there is a risk of bleeding, development of VTE is highly likely to delay her liver surgery scheduled for next month. On shared decision making we will continue Lovenox 40 mg daily for DVT prophylaxis, trend hemoglobin and platelet count daily. Discontinue Lovenox if platelet count decreases <50. 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
[2024-06-06 07:34] VITALS: BP 140/81; PULSE 72; RESP 18; TEMP 97.9; O2SAT 94
[2024-06-06 07:34] LABS: Anisocytosis Present; Polychromasia 1+; Tear Drop Cells 1+
[2024-06-06] MEDS: HYDROCORTISONE 2.5% CR 30 GM TUBE EXT PRN (08:57)
== END 2024-06-06 14:54 | disposition home health service (06) | DRG 603 ==
LOC: ED 09:47 → 2N 12:43

== ENCOUNTER 2024-06-22 18:27 | Inpatient (IN) ==
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
[2024-06-22 19:01] LABS: Appearance Urine Clear (Clear); Bilirubin Urine Negative (Negative); Blood Urine Negative (Negative); Color Urine Yellow; Glucose Urine UA Negative (Negative); Ketones Urine Negative (Negative); Leukocyte Esterase Urine Negative (Negative); Nitrite Urine Negative (Negative); Protein Urine Negative (Negative); Specific Gravity Urine 1.007 (1.000-1.030); Urobilinogen Urine Positive (Negative); pH Urine 5.5 (4.5-7.5)
[2024-06-22 19:27] LABS: Basophils # (auto) 0.03 K/uL (0.00-0.20); Basophils % (auto) 0.4 %; Eosinophils # (auto) 0.06 K/uL (0.00-0.50); Eosinophils % (auto) 0.8 %; Hematocrit (blood only) 33.4 % (37.0-47.0); Hemoglobin 11.1 g/dl (12.0-16.0); Immature Granulocytes # (auto) 0.03 K/uL (0.01-0.20); Immature Granulocytes % (auto) 0.4 %; Lymphocytes % (auto) 6.8 %; Mean Corpuscular Hemoglobin 27.2 pg (25.0-34.0); Mean Corpuscular Hgb Conc 33.2 g/dL (32.0-36.0); Mean Corpuscular Volume 81.9 fL (80.0-100.0); Mean Platelet Volume 10.3 fL (9.4-12.4); Monocytes # (auto) 0.91 K/uL (0.11-0.59); Monocytes % (auto) 12.4 %; Neutrophils # (auto) 5.81 K/uL (1.40-6.50); Neutrophils % (auto) 79.2 %; Platelet Count 86 K/uL (130-400); RDW Coefficient of Variation 22.5 % (11.5-14.5); RDW Standard Deviation 66.9 fL (36.4-46.3); Red Blood Count 4.08 M/uL (4.20-5.40); White Blood Count 7.34 K/ul (4.8-10.8)
[2024-06-22 19:46] LABS: Anisocytosis Present; Ovalocytes 1+; Tear Drop Cells 1+
[2024-06-22] MEDS: cefTRIAXone SODIUM 2,000 MG/50 ML BAG IV STA (19:46)
[2024-06-22 19:48] LABS: Albumin Globulin Ratio 0.9 (0.9-2); Albumin Level 3.6 gm/dl (3.4-5.0); BUN Creatinine Ratio 20.2 (10-20); Bilirubin,Total 2.7 mg/dl (0.2-1.0); Calcium 9.4 mg/dl (8.6-10.3); Creatinine Clr Calc Pharmacy 72.7 ml/min; Globulin 4.2 gm/dl (2.5-4.0); Potassium 2.5 mmol/L (3.5-5.1); Total Protein 7.8 gm/dl (6.0-8.3)
[2024-06-22 19:57] LABS: INR 1.3 (0.9-1.1); Partial Thromboplastin Ratio 1.1; Partial Thromboplastin Time 29 Seconds (21-31); Prothrombin Time 14.2 Seconds (9.0-12.0)
[2024-06-22] MEDS: POTASSIUM CHLORIDE 10 MEQ TABCR PO STA (20:43)
[2024-06-22] MEDS: POTASSIUM CHLORIDE / WTR 10 MEQ/100 ML PLCT IV SCH (20:43)
[2024-06-22] MEDS: POTASSIUM CHLORIDE PWD 20 MEQ PACK PO ONE (20:47)
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
[2024-06-22 22:41] LABS: C Reactive Protein 11.11 mg/dl (0-0.5)
--- NOTE | 2024-06-22 22:44 | Ultrasound Report ---
Exam(s): US VENOUS LEFT LOWER EXTREMITY EXAM: US Duplex Left Lower Extremity Veins CLINICAL HISTORY: Reason for exam: swelling. TECHNIQUE: Real-time duplex ultrasound scan of the left lower extremity veins integrating B-mode two-dimensional vascular structure, Doppler spectral analysis, color flow Doppler imaging and compression. COMPARISON: No relevant prior studies available. 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 No DVT in the visualized common femoral, femoral, proximal deep femoral or popliteal veins. The veins demonstrate normal color flow, are normally compressible, with normal phasic flow and/or augmentation response. Superficial veins: Unremarkable. No thrombus in the visualized great saphenous vein. Soft tissues: Soft tissue edema. IMPRESSION: No evidence of acute DVT. Soft tissue edema. Electronically signed by: Jemima Altamirano M.D. 06/22/24 22:43 PM
[2024-06-22] MEDS ORDERED: ACETAMINOPHEN 325 MG TAB PO PRN (23:26)
[2024-06-22] MEDS ORDERED: POLYETHYLENE (MIRALAX) 17 GM PACK PO PRN (23:26)
[2024-06-22] MEDS: oxyCODONE HCL IR 5 MG TAB (IMMEDIATE RELEASE) PO PRN (23:59)
[2024-06-23] MEDS ORDERED: DICLOFENAC SOD 1% GEL 100 GM TUBE EXT PRN (00:02)
[2024-06-23] MEDS ORDERED: PROMETHAZINE HCL 25 MG SUPP PR PRN (00:02)
[2024-06-23] MEDS ORDERED: IPRATROPIUM BROMIDE/ALBUTEROL respimat INH INH PRN (00:02)
[2024-06-23] MEDS ORDERED: BUTALBITAL/ACETAMIN/CAFFEINE TAB PO PRN (00:02)
[2024-06-23 00:09] LABS: Magnesium 1.9 mg/dl (1.7-2.4); Phosphorus 2.8 mg/dl (2.5-4.9)
[2024-06-23] MEDS ORDERED: Ipratropium HFA Inhaler (Combivent Respimat P&T Subs) INH PRN (00:33)
[2024-06-23] MEDS ORDERED: Albuterol HFA 8 GM Inhaler (Combivent Respimat P&T Subs) INH PRN (00:33)
--- OUTSIDE RECORDS SUMMARY | 2024-06-23 02:20 | External Medical Summary | Summary of Care ---
Author Name Unknown Organization [facility] Address [address] [place] [address] Phone [phone] Care Team Providers Care Blending Kettle Tender Name Role Phone Endy Stanley DO Primary Care Provider [phone] Encounter Details Date Type Department Care Team (Late st Contact Info) Description 06/09/2024 Orders Only Hematology/Oncology, [facility] [address] [place], [place] [id number] Sandra Evans MD [address] [place] [address] Allergies Active Allergy Reactions Criticality Noted Date Comments Codeine Hives 07/18/2012 Metformin Abdominal pain Low 03/30/2013 Ondansetron 06/02/2024 documented as of this encounter (statuses as of 06/09/2024) Medications Medication Sig Dispensed Refills Start Date [...] suspected opioid overdose. Seek immediate medical attention. [email or web address] Active Prochlorperazine Maleate 5 MG Oral Tablet [...] morning and 1 Tablet before bedtime. Active Kqdvyqtcoy-WMTX-Vnqqs ine 50-325-40 MG Oral Tablet (Fioricet) TAKE [...] as of this encounter (statuses as of 06/09/2024) Active Problems Problem Noted Date Diagnosed Date [...] as of this encounter (statuses as of 06/09/2024) Resolved Problems Problem Noted Date Diagnosed Date [...] as of this encounter (statuses as of 06/09/2024) Immunizations Name Administration Dates Next Due COVID-19, [...] Care Team (Late st Contact Info) Description 06/15/2024 9:15 AM EDT Office Visit Hematology/Oncology [facility] [address] [place] [id number] Sandra Evans MD [address] [place] [address] Health Maintenance Due Date Last Done Comments [...] 04/26, 12/19/2016, Additional history exists GFR 05/31/2025 06/08/2024, 02/2024, 05/24/2024, Additional history exists Lipid Panel 10/23/2028 10/24/2023, [...] Priority Date/Time Associated Diagnosis Comments CHEMISTRY-OUTSIDE Routine 06/08/2024 documented in this encounter Results * (ABNORMAL) CHEMISTRY-OUTSIDE (06/08/2024) Not all results display below - see scan for full detail OUTSIDE LAB (SEE SCANNED REPORT) Comment:SCAN INCLUDES - CMP, FE PANEL, FERRITIN, LDH, CBCD CREATININE 0.74 0.6 - 1.2 MG/DL OUTSIDE LAB (SEE SCANNED REPORT) EGFR 102.89 OUTSIDE LA B (SEE SCANNED REPORT) POTASSIUM 3.5 3.5 - 5.1 MMOL/L OUTSIDE LAB (SEE SCANNED REPORT) GLUCOSE 105(A) 70 - 99 MG/DL OUTSIDE LAB (SEE [...] LAB OUTSIDE LAB (SEE SCANNED REPORT) HEMOGLOBIN, [id number] LAB OUTSIDE LAB (SEE SCANNED REPORT) PHOSPHORUS-OUTSID E LAB OUTSIDE LAB (SEE SCANNED REPORT) PTH-OUTSIDE LAB OUTS GRECIA LAB (SEE SCANNED REPORT) MICROALBUMIN RATIO-OUTSIDE LAB OUTSIDE LA B (SEE SCANNED REPORT) PROTEIN, UA-OUTSIDE LAB OUTSIDE LAB (SEE SCANNED REPORT) HGB 9.6(A) 12.0 - 16.0 G/DL OUTSIDE LAB (SEE SCANNED REPORT) 06/08/2024 Sandra Evans MD LABORATORY OUTSIDE LAB (SEE SCANNED REPORT) documented in this encounter Advance Directives * Full Code (Latest Code Status on File) Date Activated Date Inactivated Comments 10/15/2007 5:16 PM 10/17/2007 5:01 PM Care Teams Blending Kettle Tender Relationship Specialty Start Date End Date Endy Stanley DO PCP - General Family Medicine 07/13/18 documented as of this encounter
--- OUTSIDE RECORDS SUMMARY | 2024-06-23 02:20 | External Medical Summary | Summary of Care ---
Author Name Unknown Organization [facility] Address [address] [facility] [place] [address] Phone [phone] Care Team Providers Care Cancer Center Director Name Role Phone Endy Stanley DO Primary Care Provider [phone] Encounter Details Date Type Department Care Team (Late st Contact Info) Description 06/08/2024 Result Scan Unspecified Department Hilda Calvert DO [address] [place] [address] <No scans attached> Allergies Active Allergy Reactions [...] suspected opioid overdose. Seek immediate medical attention. [email or web address] It [email or web address]?[email or web address] Active Prochlorperazine Maleate 5 MG Oral Tablet [...] morning and 1 Tablet before bedtime. Active Xsoxwxprud-CLLO-Xuhlt ine 50-325-40 MG Oral Tablet (Fioricet) TAKE [...] Sandra Evans MD [address] [place] [address] Health Maintenance Due Date Last Done Comments [...] 09/01/2023, 04/26, 12/19/2016, Additional history exists GFR 06/08/2025 06/08/2024, 02/2024, 05/24/2024, Additional history exists Lipid [...] Date/Time Associated Diagnosis Comments RADIOLOGY SCANNED RESULT 06/08/2024 documented in this encounter Results * RADIOLOGY SCANNED RESULT (06/08/2024) 06/08/2024 Hilda Calvert DO DIAGNOSTIC RAD IOLOGY SERVICES documented in this encounter Advance Directives * Full Code (Latest Code Status on File) Date Activated Date Inactivated Comments 10/15/2007 5:16 PM 10/17/2007 5:01 PM Care Teams Cancer Center Director Relationship Specialty Start Date End Date Endy Stanley DO PCP - General Family Medicine 07/13/18 documented as of this encounter
--- OUTSIDE RECORDS SUMMARY | 2024-06-23 02:20 | External Medical Summary | Summary of Care ---
Author Name Unknown Organization [facility] Address [address] [place] [address] Phone [phone] Care Team Providers Care Watchmaker Apprentice Name Role Phone Endy Stanley DO Primary Care Provider [phone] Reason for Visit * Reason Comments Follow Up Encounter Details Date Type Department Care Team (Late st Contact Info) Description 06/15/2024 9:15 AM EDT Office Visit Hematology/Oncology [facility] [place] [address] [facility] [place] [address] Sandra Evans MD [address] [facility] [facility] [place] [id number] Other cirrhosis of liver (HCC)*; Iron deficiency anemia, unspecified iron deficiency anemia type Allergies Active Allergy Reactions Criticality Noted Date Comments Codeine Hives 07/18/2012 Metformin Abdominal pain Low 03/30/2013 Ondansetron 06/02/2024 documented as of this encounter (statuses as of 06/15/2024) Medications Medication Sig Dispensed Refills Start Date [...] suspected opioid overdose. Seek immediate medical attention. [email or web address] Active Prochlorperazine Maleate 5 MG Oral Tablet [...] morning and 1 Tablet before bedtime. Active Sjtlptfpyw-LLDD-Vckjf ine 50-325-40 MG Oral Tablet (Fioricet) TAKE [...] as of this encounter (statuses as of 06/15/2024) Active Problems Problem Noted Date Diagnosed Date [...] as of this encounter (statuses as of 06/15/2024) Resolved Problems Problem Noted Date Diagnosed Date [...] as of this encounter (statuses as of 06/15/2024) Immunizations Name Administration Dates Next Due COVID-19, [...] Sign Reading Time Taken Comments Blood Pressure 114/73 06/15/2024 9:14 AM EDT Pulse 80 06/15/2024 9:14 AM EDT Temperature 36.4 C (97.5 F) 06/15/2024 9:14 AM ED T Respiratory Rate - - Oxygen Saturation 91% 06/15/2024 9:14 AM EDT Inhaled Oxygen Concentration - - Weight 102.6 kg (226 lb 1.6 oz) 06/15/2024 9:14 AM EDT Height - - Body Mass Index 39.08 10/02/2023 2:26 PM EST documented in this encounter Functional Status Functional Status Response Date of Assess ment Does this person have seriou s difficulty walking or climbing stairs? Yes-has done this two times in the past week 09/01/2023 documented as of this encounter Progress Notes * Sandra Evans MD - 06/15/2024 9:01 AM EDT Outpatient Consult Note Data Source: Patient, Epic record. Data Source: Patient, Epic record. 06/15/2024 9:01 AM Niesha Gutiérrez [id number] 43 year old Patient Encounter: HEMATOLOGY/ONCOLOGY [facility] Diagnosis: Liver cirrhosis secondary to nonalcoholic [...] Patient was recently admitted to the hospital with confusion and hepatic encephalopathy. Because of the liver cirrhosis and ascites she is having paracentesis done on weekly basis. 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 There is also splenomegaly and ascites and recanalization ofthe periumbilical vein and upper abdominal varices. She also received iron infusion during the recent admission at [facility]. She had a CBC done [...] and finally she would biopsy done at [facility] and they told her she has liver cirrhosis. She states she has never drank alcohol before and was told this was from [place]. She denies smoking all drinking alcohol. Family history significant for mother was diagnosed skin cancer. Father was also diagnosed of livercirrhosis. He was alcoholic Interval History: She was recently admitted to the hospital with cellulitis of the right lower extremity which is better now. Overall clinically she is stable. She continues to have a paracentesis done on weekly basis. She is scheduled for the liver transplant on 07/05/2029 at [facility]. LABS/IMAGING: Results for orders placed or performed in visit on 06/09/24 CHEMISTRY-OUTSIDE Result Value Ref Range Not all results display below - see scan for full detail CREATININE 0.74 0.6 - 1.2 MG/DL EGFR 102.89 POTASSIUM 3.5 3.5 - 5.1 MMOL/L GLUCOSE 105 (A) 70 - 99 MG/DL HOURS FASTING TRIGLYCERIDES-OUTSIDE LAB CHOLESTEROL-OUTSIDE LAB HDL-OUTSIDE LAB CHOL/HDL RATIO-OUTSIDE LAB LDL (CALCULATED)-OUTSIDE LAB LDL (DIRECT MEASURE)-OUTSIDE LAB HEMOGLOBIN, V5Y-HRLQBCG LAB PHOSPHORUS-OUTSIDE LAB PTH-OUTSIDE LAB MICROALBUMIN RATIO-OUTSIDE LAB PROTEIN, UA-OUTSIDE LAB HGB 9.6 (A) 12.0 - 16.0 G/DL *Note: Due to a large number of results and/or encounters for the requested time period, some results have not been displayed. A complete set of results can be found in Results Review. Recent blood test were done on 06/08/2024 which shows WBC count of 3.45, hemoglobin 9.6 and platelet count 11345. Ferritin was 118. Creatinine was 0.74. REVIEW OF SYSTEMS: General: No Fever, chills, [...] bleeding Genitourinary: Denies Hematuria or dysuria Musculoskeletal: No bone pain Psychiatric: No vegetative signs of depression Endocrine: [...] Medication Sig Dispense Refill ONETOUCH ULTRASOFT LANCETS [facility] use as directed [address] TRETINOIN [...] Nausea. (Patient not taking: Reported on 04/23/2024) Ipratropium-Albuterol 20-100 MCG/ACT Inhalation Aerosol Solution Inhale 1 Puff by mouth in the morning and 1 Puff at noon and 1 Puff in the evening and 1 Puff before bedtime. Naloxone HCl 4 MG/0.1ML Nasal Liquid Administer 0.1 mL into nostril as needed. Administer 1 spray into 1 nostril for suspected opioid overdose. Seek immediate medical attention. [email or web address] (Patient not taking: Reported on 11/27/2023) Prochlorperazine [...] as needed. (Patientnot taking: Reported on 04/23/2024) Docusate Sodium 100 MG Oral Capsule (Colace) [...] before bedtime. (Patientnot taking: Reported on 06/02/2024) Levothyroxine Sodium 300 MCG Oral Tablet Take 1 Tablet by mouth in the morning. Midodrine HCl 2.5 MG Oral Tablet (Proamatine) Take 1 Tablet by mouth in the morning and 1 Tablet atnoon and 1 Tablet before bedtime. (Patient not taking: Reported on 04/23/2024) Tums Extra Strength 750 750 MG Oral [...] bedtime. (Patient not taking: Reported on 11/27/2023) Mhjhcglywl-JSLW-Pgnehmlg 50-325-40 MG Oral Tablet (Fioricet) TAKE 2 TABLETS BY MOUTH EVERY 6 HOURS IF NEEDED FOR PAIN - MAX DAILY DOSE OF 8 TABS Doxycycline Monohydrate 100 MG Oral Tablet Take 1 Tablet by mouth in the morning and 1 Tablet before bedtime. (Patient not taking: Reported on 04/23/2024) rifAXIMin 550 MG Oral Tablet (Xifaxan) Take [...] 3mg in the PM) 180 Tablet 1 Pramipexole Dihydrochloride 0.5 MG Oral Tablet Take [...] TOTAL OF 75 MG. 90 Tablet 1 No current facility-administered medications for this visit. Social History Tobacco Use Smoking status: Never Smokeless tobacco: Never Vaping Use Vaping status: Never Used Substance Use Topics Alcohol use: Not Currently Comment: 3 x yr Drug use: No Review of patient's allergies indicates: Allergen Reactions Codeine Hives Zofran [Ondansetron] Metformin Abdominal pain PHYSICAL EXAMINATION: General Appearance: Healthy appearing patient in no acute distress There were no vitals taken for this visit. Vitals reviewed. HEENT: No oral or pharyngeal [...] Good pulses bilaterally, bilateral lower extremity edema with chronic skin changes andmild redness specially in the right lower extremity. ASSESSMENT: 43-year-old female with a complicated past [...] episodes of bleeding. Overall clinically she is stable. She was recently admitted to the hospital with cellulitis and wastreated with antibiotics. Now she is feeling better. She continues to have paracentesis done with the proximally on weekly basis. She is scheduled for the liver transplant on 07/05/2024 at [facility]. Discussed with the patient about diagnosis reviewed all the available blood test result with her. At this point the best option is continue to monitor the patient clinically. PLAN: She will return clinic for follow-up in [...] documented in this encounter Nursing Notes * Amena Awan MED ASSIST - 06/15/2024 9:20 AM EDT Patient identifed by name and [...] it for you? ALREADY ACTIVE Filed Vitals: 06/15/24 0914 BP: 114/73 Pulse: 80 Temp: 36.4 C (97.5 F) TempSrc: Tympanic SpO2: 91% Weight: 102.6 kg (226 lb 1.6 oz) Patient was instructed to not get up on the exam table/exam chair until directed and assisted by their provider; patient is to remain seated in the chair/ wheelchair/ exam table/ exam chair for fall prevention and safety reasons. Patient is aware to have assistance to step down off exam table/exam chair with personnel. Patient voiced full comprehension of instructions. Pt has cellulitis on her right leg. Reported she was in the hospital for a week. documented in this encounter Plan of Treatment Upcoming Encounters Date Type Department Care Team (Late st Contact Info) Description 09/28/2024 2:00 PM EST Office Visit Hematology/Oncology [facility] [address] [place] [phone] Sandra Evans MD [address] [place] [id number] Scheduled Orders Name Type Priority Associated Diagnoses Orde r Schedule CBC WITH WBC DIFFERENTIAL Lab Routine Other cirrhosis of liver (HCC) Iron deficiency anemia, unspecified iron deficiency anemia type Expected: 09/13/2024, Expires: 06/15/2025 COMPREHENSIVE METABOLIC PANEL Lab Routine Other cirrhosis of liver (HCC) Iron deficiency anemia, unspecified iron deficiency anemia type Expected: 09/13/2024, Expires: 06/15/2025 FERRITIN Lab Routine Other cirrhosis of liver (HCC) Iron deficiency anemia, unspecified iron deficiency anemia type Expected: 09/13/2024, Expires: 06/15/2025 LD Lab Routine Other cirrhosis of liver (HCC) Iron deficiency anemia, unspecified iron deficiency anemia type Expected: 09/13/2024, Expires: 06/15/2025 IRON SCREEN, INCLUDING TIBC Lab Routine Other cirrhosis of liver (HCC) Iron deficiency anemia, unspecified iron deficiency anemia type Expected: 09/13/2024, Expires: 06/15/2025 RETICULOCYTE PANEL Lab Routine Other cirrhosis of liver (HCC) Iron deficiency anemia, unspecified iron deficiency anemia type Expected: 09/13/2024, Expires: 06/15/2025 Health Maintenance Due Date Last Done Comments [...] 5:16 PM 10/17/2007 5:01 PM Care Teams Watchmaker Apprentice Relationship Specialty Start Date End Date Endy Stanley DO PCP - General Family Medicine 07/13/18 documented as of this encounter
[2024-06-23] MEDS: LEVOTHYROXINE SODIUM 150 MCG TABLET PO SCH (05:48)
[2024-06-23] MEDS: ENOXAPARIN INJ 40 MG/0.4 ML SYR SQ SCH (05:48)
--- NOTE | 2024-06-23 06:43 | XRay Report ---
XR chest 1V portable CLINICAL HISTORY: Fever TECHNIQUE: Single frontal radiograph of the chest was obtained. Comparison: Comparison is made to chest radiographs 06/02/2024 FINDINGS: Cervical fixation hardware is seen. The cardiomediastinal silhouette is normal. The lungs are clear. No evidence of pleural effusion or pneumothorax. IMPRESSION: No acute chest disease. ACT 112: Negative or not required by law. Electronically signed by: Mohit Perez M.D. 06/23/2024 6:42 AM
[2024-06-23] MEDS: POTASSIUM CHLORIDE PWD 20 MEQ PACK PO SCH (07:49)
[2024-06-23] MEDS: SPIRONOLACTONE 100 MG TAB PO SCH (07:50)
[2024-06-23] MEDS: VENLAFAXINE HCL XR 75 MG CAPXR PO SCH (07:50)
[2024-06-23] MEDS: VENLAFAXINE HCL XR 150 MG CAPXR PO SCH (07:50)
[2024-06-23] MEDS: SERTRALINE HCL 50 MG TABLET PO SCH (07:50)
[2024-06-23] MEDS: GABAPENTIN 600 MG TAB PO PRN (07:50)
[2024-06-23] MEDS: FAMOTIDINE 40 MG TABLET PO SCH (07:50)
[2024-06-23] MEDS: SERTRALINE HCL 100 MG TABLET PO SCH (07:51)
[2024-06-23] MEDS: tiZANidine HCL 4 MG TABLET PO PRN (07:51)
[2024-06-23] MEDS: PANTOprazole 40 MG TAB PO SCH (07:52)
[2024-06-23] MEDS: BUMETANIDE 1 MG TAB PO SCH (07:52)
[2024-06-23] MEDS: rifAXIMin 550 MG TABLET PO SCH (07:52)
[2024-06-23] MEDS: LINACLOTIDE 145 MCG CAPSULE PO SCH (07:52)
[2024-06-23] MEDS: PROCHLORPERAZINE MALEATE 5 MG TAB PO PRN (07:52)
[2024-06-23] MEDS: PRAMIPEXOLE DIHYDROCHLO 0.5 MG TAB PO SCH (07:52)
[2024-06-23] MEDS: LACTULOSE SYRUP 30 GM/45 ML UDP PO SCH (07:53)
[2024-06-23 08:35] LABS: Albumin Level 3.4 gm/dl (3.4-5.0); BUN Creatinine Ratio 22.6 (10-20); Bilirubin Direct 0.8 mg/dl (0-0.2); Bilirubin,Total 2.1 mg/dl (0.2-1.0); Calcium 9.2 mg/dl (8.6-10.3); Creatinine Clr Calc Pharmacy 84.8 ml/min; Potassium 2.7 mmol/L (3.5-5.1); Total Protein 7.5 gm/dl (6.0-8.3)
[2024-06-23 08:42] LABS: Hemoglobin 10.7 g/dl (12.0-16.0); Mean Corpuscular Hemoglobin 27.2 pg (25.0-34.0); Mean Corpuscular Hgb Conc 32.4 g/dL (32.0-36.0); Mean Corpuscular Volume 83.8 fL (80.0-100.0); Mean Platelet Volume 10.1 fL (9.4-12.4); Platelet Count 68 K/uL (130-400); RDW Coefficient of Variation 22.3 % (11.5-14.5); RDW Standard Deviation 67.7 fL (36.4-46.3); Red Blood Count 3.94 M/uL (4.20-5.40); White Blood Count 4.93 K/ul (4.8-10.8)
[2024-06-23 10:03] LABS: Magnesium 1.8 mg/dl (1.7-2.4)
[2024-06-23] MEDS: POTASSIUM CHLORIDE PWD 20 MEQ PACK PO ONE (13:02)
--- NOTE | 2024-06-23 16:38 | Hospitalist Progress Note ---
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 Patient with recent cellulitis of the RLE which improved with IV Ceftriaxone and Cefdinir. CRP is elevated higher than baseline and WBC was higher than her baseline as well There is a papular rash around the left knee area, possibly this is an impetigo pattern. I do not see any pustules. Almost has the appearance of a palpable purpura but there is no generalization on the LE so seems unlikely. -continue ceftriaxone, likely can narrow to cefazolin -follow up blood culture but I am not suspicious of bacteremia -once potassium has improved will push her diuresis, since she does frequently have component of inflamed edema (2) 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: Plan: Patient with liver 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, ascites requiring frequent paracenteses, diuretic management with Bumex/Spironolactone/Metolazone, hepatic encephalopathy on Rifaximin and Lactulose. She is following at [facility] and is slated for liver transplant on 07/05/24. Bilirubin and INR are within recent baseline -Continue Bumex 3mg po BID17 -Continue spironolactone -AM CMP -Monitor intake and output -Monitor daily weights -continue lactulose for chronic hepatic encephalopathy -continue betadine bid and PRN for ruptured umbilical hernia. No current ascites. No evidence of peritonitis - no abdominal pain or tenderness on exam -Isolation precautions - patient reports being told to maintain isolation if possible given her upcoming transplant Plan severe hypokalemia - this occurred because her pharmacy filled an old rx for her potassium so she was taking 20 bid insead of the intended 40 bid at home recently -given 80 meq oral potassium total this am -K check at 3 pm unchanged at 2.7. Mag normal at 1.8 -will give another 80 meq this afternoon -AM CMP -continue supplementation bid and as needed mild fungal rash upper abdomen - ketoconazole I plan to update her transplant team Admission and Anticipated Discharge Date Admission Date: June 22, 2024 Subjective L Physical Exam 2 Physical Exam: PHYSICAL EXAMINATION Last 24h vital signs reviewed, see documentation in flowsheet General: comfortable appearing, no distress, sitting on EOB HEENT: Normocephalic, atraumatic, pupils round and equal, sclerae anicteric, no conjunctival injection, moist mucus membranes Lungs: Normal respiratory effort. Clear to auscultation bilaterally. No RRW Heart: Regular rate and rhythm, no murmurs. No JVD Abdomen: Soft, nontender, nondistended. Bowel sounds present. umbilical hernia with 2cm opening, no erythema or drainage Extremities: Warm, dry, well-perfused. 2-3+ bilateral LE edema. dark erythema bilaterally from mid daily down through foot, slightly more and slightly warm on L, papules tracking up leg to just prox to knee, no pustules. few similar appearing scattered healed lesions R daily serpiginous rash with central clearing upper mid abdomen Neuro: Alert and oriented x 4, face symmetric, moves 4 extremities well, no tremor/asterixis Psych: Normal affect and behavior Results & Data Results & Data Vital Signs (Past 12 Hours) Vital Signs Temp Pulse Resp BP Pulse Ox O2 Del Method 06/23/24 15:56 36.8 C 78 16 139/85 94 Room Air 06/23/24 07:09 36.6 C 65 16 114/74 94 Room Air Laboratory Results 06/23/24 07:48 06/23/24 15:45 INR 1.3 Bili 2.7-->2.1 PG Care Time/CCT Total # of Minutes Spent Total Time Spent with Patient: Total time spent is greater than 50% in coordination of care (as documented) at patient's floor/unit and/or counseling patient: Coding Level of Care Code 39378 SUB INP/OBS CARE 3/50MIN Diagnoses Cellulitis of left leg L03.116 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
[2024-06-23] MEDS: POTASSIUM CHLORIDE PWD 20 MEQ PACK PO STA (17:21)
[2024-06-23] MEDS: cefTRIAXone SODIUM 2,000 MG/50 ML BAG IV SCH (21:06)
[2024-06-23] MEDS: KETOCONAZOLE 2% CR 15 GM TUBE EXT SCH (21:07)
[2024-06-24 07:56] LABS: Albumin Globulin Ratio 0.8 (0.9-2); Albumin Level 3.3 gm/dl (3.4-5.0); BUN Creatinine Ratio 22.7 (10-20); Bilirubin,Total 1.8 mg/dl (0.2-1.0); C Reactive Protein 5.78 mg/dl (0-0.5); Calcium 8.6 mg/dl (8.6-10.3); Creatinine Clr Calc Pharmacy 81.3 ml/min; Potassium 2.6 mmol/L (3.5-5.1); Total Protein 7.3 gm/dl (6.0-8.3)
[2024-06-24] MEDS ORDERED: MAGNESIUM SULFATE / D5W 1 GM/100 ML BAG IV ONE (08:16)
[2024-06-24] MEDS: metOLazone 2.5 MG TABLET PO SCH (08:23)
[2024-06-24] MEDS: POTASSIUM CHLORIDE PWD 20 MEQ PACK PO SCH (08:25)
--- NOTE | 2024-06-24 10:09 | Hospitalist Progress Note ---
Date of Service June 24, 2024 Assessment & Plan (1) Cellulitis of left leg: Plan: 43yo female with history of liver cirrhosis secondary to MASH presenting with warmth, redness, swelling and pain of the LLE. Patient with recent cellulitis of the RLE which improved with IV Ceftriaxone and Cefdinir. LE duplex negative for DVT in ED CRP was elevated higher than baseline and WBC was higher than her baseline as well - both improved, CRP down to 7 today There is a papular rash around the left knee area, possibly this is an impetigo pattern. I do not see any pustules but consider MRSA. Almost has the appearance of a palpable purpura but there is no generalization on the LE so seems unlikely. Not dermatomal and does not look like zoster. -continue ceftriaxone. await input from ID. has not had MRSA, not currently on MRSA coverage. Looks about the same today. -follow up blood culture but I am not suspicious of bacteremia - NGTD at 24h -she does frequently have component of inflamed edema that can be difficult to distinguish from cellulitis, however, she is not currently volume overloaded and her edema is the least I have seen it this year discussed with transplant team at [facility] - requesting ID consult for recurrent infection, has liver transplant scheduled for 07/05. Was just admitted with right leg cellulitis 2 weeks ago. Transplant team would be open to her staying on suppressive antibiotic (low dose keflex, for example) if recommended by ID. Consulted ID. (2) 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: Plan: Patient with liver cirrhosis secondary to MASH, ascites requiring frequent paracenteses, diuretic management with Bumex/Spironolactone/Metolazone, ruptured umbilical hernia, hepatic encephalopathy on Rifaximin and Lactulose. She is following at [facility] and is slated for liver transplant on 07/05/24. Bilirubin and INR are within recent baseline -hold bumex, metolazone because of severe refractory hypokalemia. K still 2.7-->2.6 today despite massive replacement yesterday. ordered serial oral potassium x 3 doses repeat K at 6pm. mag 1.8 replace with 1g IV -Continue spironolactone -AM CMP -ascites - hx refractory ascites in the past on 2x a week para, however, has come under control with addition of metolazone and rupture of her periumbilical hernia which sometimes drains ascites - had para today no ascites to tap - per my discussion with her patient resource coordinator 06/24 - no paracentesis for one week prior to transplant (no para starting 06/28) to avoid hypovolemia -continue lactulose for chronic hepatic encephalopathy - gave dose early today since has been sleepy, but then held for tonight because of so much stool -continue betadine bid and PRN for ruptured umbilical hernia. No current ascites. No evidence of peritonitis - no abdominal pain or tenderness on exam -Isolation precautions - patient reports being told to maintain isolation if possible given her upcoming transplant Plan severe hypokalemia - this occurred because her pharmacy filled an old rx for her potassium so she was taking 20 bid insead of the intended 40 bid at home recently -see above mild fungal rash upper abdomen - ketoconazole. had course ketoconazole that she just completed - organisms may be but rash still visible. low risk to keep the ketoconazole going for right now Admission and Anticipated Discharge Date Admission Date: June 22, 2024 Subjective Was sleepy this am and fell asleep while on phone with radiology Not confused for me however Has had copious amount of stool with lactulose today No ascites on US today L ankle/calf still warm red and tender she thinks its about the same No new skin papules Physical Exam 2 Physical Exam: PHYSICAL EXAMINATION Last 24h vital signs reviewed, see documentation in flowsheet General: comfortable appearing, no distress, sitting on EOB HEENT: Normocephalic, atraumatic, pupils round and equal, sclerae anicteric, no conjunctival injection, moist mucus membranes Lungs: Normal respiratory effort. Clear to auscultation bilaterally. No RRW Heart: Regular rate and rhythm, no murmurs. No JVD Abdomen: Soft, nontender, nondistended. Bowel sounds present. umbilical hernia with 2cm opening, no erythema or drainage Extremities: Warm, dry, well-perfused. 2+ bilateral LE edema. LLE with warm erythema from lower daily down to ankle and less so on foot. Scattered papules around area of L knee especially and few on thigh - not in dermatomal distribution, no vesicles or pus. Handful of healed/crusted old similar lesions on R leg. 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 serpiginous rash with central clearing upper mid abdomen Neuro: Alert and oriented x 4, face symmetric, moves 4 extremities well Psych: Normal affect and behavior Results & Data Results & Data Vital Signs (Past 12 Hours) Vital Signs Temp Pulse Resp BP Pulse Ox O2 Del Method 06/24/24 07:20 36.5 C 78 16 118/71 95 Room Air Laboratory Results 06/23/24 07:48 06/24/24 07:09 CRP 11--> 5 potassium did not increase mag 1.8 yesterday INR 1.3 Bili 2.1-->1.8 PG Care Time/CCT Total # of Minutes Spent Total Time Spent with Patient: Total time spent is greater than 50% in coordination of care (as documented) at patient's floor/unit and/or counseling patient: Coding Level of Care Code 68141 SUB INP/OBS CARE 3/50MIN Diagnoses Cellulitis of left leg L03.116 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
[2024-06-24] MEDS: MAGNESIUM SULFATE / D5W 1 GM/100 ML BAG IV ONE (10:39)
--- NOTE | 2024-06-24 12:30 | Ultrasound Report ---
US abdomen ltd ascites CLINICAL HISTORY: Evaluate for ascites. Possible paracentesis. COMPARISON STUDY: Ultrasound June 11, 2024. TECHNIQUE: Sonography of the abdomen and pelvis was performed to assess for ascites. FINDINGS: No ascites was identified within the abdomen or pelvis. IMPRESSION: No ascites. Therefore, a paracentesis was not performed. ACT 112: Negative or not required by law. Electronically signed by: Guero Garcia M.D. 06/24/2024 12:29 PM
[2024-06-24] MEDS: LACTULOSE SYRUP 30 GM/45 ML UDP PO STA (12:49)
[2024-06-24] MEDS: oxyCODONE HCL IR 5 MG TAB (IMMEDIATE RELEASE) PO PRN (15:58)
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
[2024-06-24] MEDS: POTASSIUM CHLORIDE CRTAB 20 MEQ TABCR PO STA (19:45)
[2024-06-25 07:35] LABS: Albumin Globulin Ratio 0.8 (0.9-2); Albumin Level 3.1 gm/dl (3.4-5.0); BUN Creatinine Ratio 20.9 (10-20); Bilirubin,Total 1.5 mg/dl (0.2-1.0); Calcium 8.3 mg/dl (8.6-10.3); Creatinine Clr Calc Pharmacy 91.7 ml/min; Globulin 3.8 gm/dl (2.5-4.0); Potassium 3.1 mmol/L (3.5-5.1); Total Protein 6.9 gm/dl (6.0-8.3)
[2024-06-25] MEDS: POTASSIUM CHLORIDE PWD 20 MEQ PACK PO SCH (09:06)
--- NOTE | 2024-06-25 10:00 | Infectious Disease Progress Nt ---
Date of Service June 25, 2024 Assessment & Plan (1) Cellulitis of left leg: (2) Cellulitis of foot, left: (3) Liver disease: Plan Patient is a 43-year-old female with past medical history of DUNAWAY cirrhosis, pending liver transplant on 07/05/2024, hepatic encephalopathy, portal vein thrombosis, occipital neuralgia, anasarca, DM2 recently admitted 06/02/2024 - 06/06/2024 for presumed right lower extremity cellulitis. On that admission she had presented with a few day history of 4+ pitting edema of the right lower extremity with erythema, that started gradually and then spread above her knees into her groin. Her MRSA screen was negative. She had no purulent drainage from her leg but did have some weeping. DVT was ruled out. She was started on Ceftriaxone with improvement and she was discharged to complete 5 additional days of cefdinir. RLE never returned to baseline. She returns to the ED on 06/22/24, with worsening LEFT leg swelling and erythema. Her right lower extremity area or erythema is less swollen , but still erythematous with a medial calf ulcer. She denies falls, trauma, open wounds, scratching of the skin. No fever, chills, sweats. She has scattered new lesions on LLE. In the ED, temperature 36.4, pulse 90, RR 20, blood pressure 120/80, O2 sats 94% on room air. Labs WBC 7.34, hemoglobin 11.4, hematocrit 33.4, platelets 86, potassium 2.5, BUN 22, creatinine 1.09, ESR 94, CRP 11.11---> 5.78. Chest x-ray with no acute disease. Left lower extremity Doppler negative for DVT. Abdominal ultrasound with no ascites.She was started on Ceftriaxone. She remains afebrile without a leukocytosis. ID consulted for recurrent cellulitis She tells me that the bilateral lower extremity swelling, erythema, pain has been ongoing for approximately 3 months. She has been treated with courses of doxycycline, Bactrim, Keflex more recently inpatient she received ceftriaxone and then cefdinir. Despite antibiotic exposure, she feels that the areas have not markedly improved. The only major change she has noticed is less edema since additional diuretics (metolazone ), the edema has improved.. There is areas of chronic stasis on exam. Microbiology Blood cultures 06/22 NGTD Antibiotics: Ceftriaxone 06/22ongoing #LLE swelling , erythema, pain #RLE Medial ulcer with induration # Scattered LE lesions L>R # Chronic Stasis changes #Recent ? R LE cellulitis #Dunaway Cirrhosis, pending liver transplant 07/05/24 Discussion: Her lower extremity skin processes been ongoing for 3 months. She may have had supperimposed bacterial cellulitis in setting of LE edema from ESLD, I am not sure if cellulitis currently as she has much less edema that her baseline. Bacterial organisms of concern include skin flara/ staph species and streptococcal species. No history of MRSA. She has been exposed to multiple abx inpt and outpt that would have covered these org( Bactrim, Keflex, cefdinir, doxy, Ceftriaxone) Lower extremity erythema, tenderness and edema waxes and wanes per the patient in the last 3 months despite exposure to antibiotics. What is new on this presentation is scattered papular appearing lesions. She denies recentl exposure to hot tubs, bodies of water, travel, animal exposures. Lesions are dry. There are scattered and purple appearing in some areas. She does have a right medial calf ulcer with surrounding induration. Will consider pseudomonas as a potential organism given appearance of lesions. Would f urther pursue with imaging. Also noted on exam is a different appearing rash that appears more fungal on the upper abdomen and flank. She reports these have been ongoing for months and have responded "somewhat" topical ketoconazole Recommendations -Discontinued ceftriaxone and will start cefepime 2 g IV every 12 hours for pseudomonal coverage. This will continue to cover staph (not on MRSA) and strep / skin hansel but will provide broader coverage for gram-negatives -Check bilateral lower extremity CT to evaluate for deep space process. -Consider dermatology evaluation, may need skin biopsy inpatient versus outpatient for definitive diagnosis of this ongoing process.. -Follow up BC -Monitor area for improvement with change in abx D/W team ID will continue to follow. [facility] will not round this weekend. Call [phone] with questions Sher Costa MD, MPH Infectious Disease [facility], ID Division Admission and Anticipated Discharge Date Admission Date: June 22, 2024 Subjective Subsequent visit was provided via telemedicine using two-way real-time interactive telecommunication between the patient and the telemedicine provider. For the duration of the visit, the provider was performing the assessment from a different facility than the patient. This includesuse of bluetooth stethoscope forauscultationperformed by the telepresenter that the telemedicine provider can hear if described in the physical exam. Telecommunications Network Planner contact information: Please call [facility] Call Center . (Phone Number For Physician Use Only) After establishing a telemedicine visit, patient was: Patient was verified with two unique identifiers Time Spent with Patient: Subsequent => 35 min She has Less LE swelling , but still has pain. Denies fever, chills Physical Exam Physical Exam: Gen- NAD, pleasant Neck - supple HEENT- Left facial birthmark, anicteric sclera Lung- No increased work of breathing Skin- BL Chronic stasis changes R>>L. Right calf erythema, thickened warm skin with Medial calf ulcer with surrounding indurated area,no fluctuance. LLE edema less, erythema than R, several scattered pustular non vesicular lesions > R . 1 similar lesion on R lateral chest. Hyper pigmentied lesions upper ab, below breast. Dry patch of erythematous skin on RL back Abd- softly distended, mild TTP Neuro- AAO times 3 Extremity- see skin. BL LE edema. PSych- cooperative Results & Data Vital Signs (Past 12 Hours) Vital Signs Temp Pulse Resp BP Pulse Ox O2 Del Method 06/25/24 07:44 36.7 C 73 18 124/79 96 Room Air Laboratory Results BMP 06/24/24 06/25/24 18:33 06:39 Sodium 134 L Potassium 3.4 L D 3.1 L Chloride 89 L Carbon Dioxide 41 H* BUN 18 Creatinine 0.86 Glucose 138 H Calcium 8.3 L Liver Function 06/25/24 Range/Units 06:39 Total Bilirubin 1.5 H (0.2-1.0) mg/dl AST 48 H (13-39) U/L ALT 19 (7-52) U/L Alkaline Phosphatase 70 (34-104) U/L Albumin 3.1 L (3.4-5.0) gm/dl Diagnostic Findings Microbiology 06/22/24 19:03 Blood Aerobic Blood Culture - Preliminary No growth in Aerobic bottle after 48 hours. 06/22/24 19:03 Blood Anaerobic Blood Culture - Final Chest X-Ray 06/22/24 18:41 XR chest 1V portable CLINICAL HISTORY: Fever TECHNIQUE: Single frontal radiograph of the chest was obtained. Comparison: Comparison is made to chest radiographs 06/02/2024 FINDINGS: Cervical fixation hardware is seen. The cardiomediastinal silhouette is normal. The lungs are clear. No evidence of pleural effusion or pneumothorax. IMPRESSION: No acute chest disease. ACT 112: Negative or not required by law. Electronically signed by: Mohit Perez M.D. 06/23/2024 6:42 AM Venous Doppler Study 06/22/24 18:41 Exam(s): US VENOUS LEFT LOWER EXTREMITY EXAM: US Duplex Left Lower Extremity Veins CLINICAL HISTORY: Reason for exam: swelling. TECHNIQUE: Real-time duplex ultrasound scan of the left lower extremity veins integrating B-mode two-dimensional vascular structure, Doppler spectral analysis, color flow Doppler imaging and compression. COMPARISON: No relevant prior studies available. 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 No DVT in the visualized common femoral, femoral, proximal deep femoral or popliteal veins. The veins demonstrate normal color flow, are normally compressible, with normal phasic flow and/or augmentation response. Superficial veins: Unremarkable. No thrombus in the visualized great saphenous vein. Soft tissues: Soft tissue edema. IMPRESSION: No evidence of acute DVT. Soft tissue edema. Electronically signed by: Jemima Altamirano M.D. 06/22/24 22:43 PM Abdomen Ultrasound 06/24/24 10:13 US abdomen ltd ascites CLINICAL HISTORY: Evaluate for ascites. Possible paracentesis. COMPARISON STUDY: Ultrasound June 11, 2024. TECHNIQUE: Sonography of the abdomen and pelvis was performed to assess for ascites. FINDINGS: No ascites was identified within the abdomen or pelvis. IMPRESSION: No ascites. Therefore, a paracentesis was not performed. ACT 112: Negative or not required by law. Electronically signed by: Guero Garcia M.D. 06/24/2024 12:29 PM Microbiology 06/22/24 19:03 Blood Aerobic Blood Culture - Preliminary No growth in Aerobic bottle after 48 hours. 06/22/24 19:03 Blood Anaerobic Blood Culture - Final Medications Administered Home Medications Medication Instructions Recorded Confirmed Last Taken valacyclovir 500 mg tablet 500 mg PO Q8 PRN .BREAKOUTS 02/14/23 06/22/24 Unknown ipratropium 20 mcg-albuterol 100 1 puff inhalation QID PRN 06/23/23 06/22/24 Unknown mcg/actuation mist for inhalation cough/wheeze/shortness of breath (Combivent Respimat) #1 inhaler triamcinolone acetonide 0.1 % 1 applic EXT TID PRN dry, itchy 06/23/23 06/22/24 Unknown topical cream skin on legs/abdominal wall #15 grams [id number]-bjlgfjpikucyi-jfmredbj 2 tab PO Q6 PRN Pain 07/21/23 06/22/24 Unknown 50 mg-325 mg-40 mg tablet clobetasol 0.05 % scalp solution 1 applic topical BID PRN for scalp 07/21/23 06/22/24 07/21/23 famotidine 40 mg tablet 40 mg PO QAM 07/21/23 06/22/24 06/01/24 omeprazole 40 mg capsule,delayed 40 mg PO BID 07/21/23 06/22/24 06/01/24 release prochlorperazine maleate 5 mg 5 mg PO QID PRN Nausea 07/21/23 06/22/24 07/20/23 tablet (Compazine) promethazine 25 mg rectal 25 mg NC UD PRN Nausea 07/21/23 06/22/24 Unknown suppository (Promethegan) venlafaxine 150 mg 150 mg PO DAILY #30 caps 08/15/23 06/22/24 06/01/24 capsule,extended release 24 hr (Effexor XR) venlafaxine 75 mg capsule,extended 75 mg PO DAILY #30 caps 08/15/23 06/22/24 06/01/24 release 24 hr (Effexor XR) linaclotide 290 mcg capsule 290 mcg PO QAM 10/06/23 06/22/24 06/01/24 (Linzess) spironolactone 100 mg tablet 100 mg PO BID 10/06/23 06/22/24 06/01/24 tizanidine 4 mg tablet 2 mg PO Q6H PRN muscle spasms 10/06/23 06/22/24 05/02/24 lactulose 10 gram/15 mL (15 mL) 30 g (45 mL) PO TID #1,440 mL 10/10/23 06/22/24 06/01/24 oral solution rifaximin 550 mg tablet (Xifaxan) 550 mg PO BID #1 tab 10/10/23 06/22/24 06/01/24 sumatriptan succinate 50 mg tablet 50 mg PO UD PRN Migraine Headache 10/29/23 06/22/24 Unknown ubrogepant 50 mg tablet (Ubrelvy) 50 mg PO .COMPLEX PRN headache #10 12/18/23 06/22/24 Unknown tabs pramipexole 0.5 mg tablet 0.5 mg PO QID 02/06/24 06/22/24 06/22/24 14:00 bumetanide 1 mg tablet 3 mg (3 x 1 mg) PO BID #180 tabs 03/26/24 06/22/24 06/01/24 diclofenac sodium 1 % topical gel 4 g EXT QID PRN right shoulder 03/26/24 06/22/24 Unknown (Voltaren Arthritis Pain) pain #1 tube metolazone 2.5 mg tablet 2.5 mg PO DIRECTED 04/13/24 06/22/24 06/01/24 alprazolam 1 mg tablet 1 mg PO BID PRN Anxiety 05/02/24 06/22/24 Unknown calcium carbonate 400 1 tab PO TIDM 05/02/24 06/22/24 06/01/24 mg-simethicone 40 mg chewable tablet cholecalciferol (vitamin D3) 25 25 mcg PO QAM 05/02/24 06/22/24 06/01/24 mcg (1,000 unit) chewable tablet levothyroxine 200 mcg/mL oral 300 mcg PO QAM 05/02/24 06/22/24 06/01/24 solution (Tirosint-Marisa) sertraline 100 mg tablet 100 mg PO QAM 05/02/24 06/22/24 06/01/24 sertraline 50 mg tablet 50 mg PO QAM 05/02/24 06/22/24 06/01/24 blood sugar diagnostic (OneTouch #100 ea 05/07/24 06/22/24 Unknown Verio test strips) lancets (Microlet Lancet) #100 ea 05/07/24 06/22/24 Unknown potassium chloride 20 mEq oral 40 meq PO BID #120 packets 05/07/24 06/22/24 06/01/24 packet gabapentin 600 mg tablet 600 mg PO TID PRN nerve pain 06/22/24 06/22/24 Unknown magnesium oxide 400 mg PO QPM 06/22/24 06/22/24 Unknown semaglutide 1 mg/dose (4 mg/3 mL) 1 mg subcut WK 06/22/24 06/22/24 Unknown subcutaneous pen injector (Ozempic) Active Medications Generic Name Dose Route Start Last Admin Trade Name Freq PRN Reason Stop Dose Admin Bumetanide 3 mg 06/23/24 09:00 06/25/24 09:06 Bumetanide 1 Mg Tab PO 07/23/24 08:59 Not Given BID17 CHERYLE Enoxaparin Sodium 40 mg 06/23/24 06:00 06/25/24 06:07 Enoxaparin Inj 40 Mg/0.4 Ml Syr SQ 07/23/24 05:59 40 mg Q24H CHERYLE Administration Famotidine 40 mg 06/23/24 09:00 06/25/24 09:04 Famotidine 40 Mg Tablet PO 07/23/24 08:59 40 mg QAM CHERYLE Administration Gabapentin 600 mg 06/23/24 00:02 06/24/24 08:26 Gabapentin 600 Mg Tab PO 07/23/24 00:01 600 mg TID PRN Administration nerve pain Ceftriaxone Sodium 2,000 mg in 50 mls @ 100 mls/hr 06/23/24 21:00 06/24/24 20:56 Rocephin IV 06/30/24 20:59 Infused Q24H CHERYLE Infusion Ketoconazole 1 appln 06/23/24 21:00 06/25/24 09:08 Ketoconazole 2% Cr 15 Gm Tube EXT 07/03/24 20:59 1 appln BID CHERYLE Administration Lactulose 30 gm 06/23/24 09:00 06/25/24 09:05 Lactulose Syrup 30 Gm/45 Ml Udp PO 07/23/24 08:59 Not Given TID CHERYLE Levothyroxine Sodium 300 mcg 06/23/24 06:30 06/25/24 06:06 Levothyroxine Sodium 150 Mcg Tablet PO 07/23/24 06:29 300 mcg DAILYBB CHERYLE Administration Linaclotide 290 mcg 06/23/24 09:00 06/25/24 09:04 Linaclotide 145 Mcg Capsule PO 07/23/24 08:59 290 mcg QAM CHERYLE Administration Metolazone 2.5 mg 06/24/24 09:00 06/24/24 08:23 Metolazone 2.5 Mg Tablet PO 07/24/24 08:59 2.5 mg [id number] CHERYLE Administration Oxycodone HCl 10 mg 06/23/24 13:29 06/24/24 15:58 Oxycodone Hcl Ir 5 Mg Tab (Immediate Release) PO 07/06/24 23:25 10 mg Q4H PRN Administration Pain Pantoprazole Sodium 40 mg 06/23/24 09:00 06/25/24 09:05 Pantoprazole 40 Mg Tab PO 07/23/24 08:59 40 mg BID CHERYLE Administration Potassium Chloride 60 meq 06/25/24 09:00 06/25/24 09:06 Potassium Chloride Pwd 20 Meq Pack PO 07/25/24 08:59 60 meq BID CHERYLE Administration Pramipexole Dihydrochloride 0.5 mg 06/23/24 09:00 06/25/24 09:05 Pramipexole Dihydrochlo 0.5 Mg Tab PO 07/23/24 08:59 0.5 mg QID CHERYLE Administration Prochlorperazine 5 mg 06/23/24 00:02 06/24/24 08:25 Prochlorperazine Maleate 5 Mg Tab PO 07/23/24 00:01 5 mg QID PRN Administration Nausea Rifaximin 550 mg 06/23/24 09:00 06/25/24 09:05 Rifaximin 550 Mg Tablet PO 07/23/24 08:59 550 mg BID CHERYLE Administration Sertraline HCl 100 mg 06/23/24 09:00 06/25/24 09:05 Sertraline Hcl 100 Mg Tablet PO 07/23/24 08:59 100 mg QAM CHERYEL Administration Sertraline HCl 50 mg 06/23/24 09:00 06/25/24 09:04 Sertraline Hcl 50 Mg Tablet PO 07/23/24 08:59 50 mg QAM CHERYLE Administration Spironolactone 100 mg 06/23/24 09:00 06/25/24 09:04 Spironolactone 100 Mg Tab PO 07/23/24 08:59 100 mg BID17 CHERYLE Administration Tizanidine HCl 2 mg 06/23/24 00:02 06/24/24 08:24 Tizanidine Hcl 4 Mg Tablet PO 07/23/24 00:01 2 mg Q6H PRN Administration muscle spasms Venlafaxine HCl 75 mg 06/23/24 09:00 06/25/24 09:04 Venlafaxine Hcl Xr 75 Mg Capxr PO 07/23/24 08:59 75 mg DAILY CHERYLE Administration Venlafaxine HCl 150 mg 06/23/24 09:00 06/25/24 09:04 Venlafaxine Hcl Xr 150 Mg Capxr PO 07/23/24 08:59 150 mg DAILY CHERYLE Administration
[2024-06-25] MEDS: ONDANSETRON INJ 2 MG/ML 2 ML VIAL IV PRN (10:49)
[2024-06-25] MEDS: CEFEPIME 2000MG 2,000 MG/20 ML SYR IV SCH (11:39)
[2024-06-25] MEDS: OPTIRAY 320 100ml IV ONE (12:49)
--- NOTE | 2024-06-25 13:38 | CT Scan Report ---
CT tib/fib RT w con CLINICAL HISTORY: cellulitis possible abscess COMPARISON STUDY: Right lower extremity venous Doppler ultrasound June 04, 2024. TECHNIQUE: Axial images of the right tibia and fibula/lower leg were obtained following intravenous i njection of 94 cc of Optiray 320 IV. Sagittal and coronal reconstructions were viewed. Automated expo sure control was utilized for the study. A dose lowering technique was utilized adhering to the prin ciples of RE. FINDINGS: Moderate right lower leg subcutaneous fluid is noted with skin thickening. No soft tissue g as is present. There are no rim-enhancing fluid collections within the right lower leg. Varicosities are incidentally noted. There are no fractures or areas of bony erosion within the right tibia or fib cris. No osseous lesions are identified. IMPRESSION: 1. Moderate right lower leg subcutaneous fluid with skin thickening suggestive of cellulitis. No flui d collection to suggest abscess. 2. No fractures within the right tibia or fibula. No evidence for acute osteomyelitis. ACT 112: Negative or not required by law. Electronically signed by: Guero Garcia M.D. 06/25/2024 1:35 PM
--- NOTE | 2024-06-25 13:49 | CT Scan Report ---
CT tib/fib LT w con HISTORY: 43 years-old Female cellulitis possible abscess Acute pain and swelling of the lower legs. COMPARISON: None. TECHNIQUE: Multiple axial CT images of the left tibia and fibula were obtained with IV contrast. A do se lowering technique was used consistent with the principals of RE. FINDINGS: There is moderate circumferential subcutaneous edema of the lower leg with associated skin thickening . No fluid collections or mass lesion is identified. Tendons and ligaments are not well-evaluated by CT technique. No large joint effusion is identified. Superficial venous varicosity is incidentally no sangeeta. Type II accessory navicular is noted in addition to an os trigonum. No acute fracture, dislocati on, osseous erosion or suspicious bone lesion. Minimal tibiotalar osteoarthritis. Benign-appearing bone islands of the medial talar dome. No osteochondral defect is identified. IMPRESSION: 1. No acute osseous abnormality. 2. Moderate nonspecific subcutaneous edema with dermal thickening. Differential considerations includ e cellulitis, venous stasis or lymphedema. 3. No fluid collection to suggest abscess. ACT 112: Negative or not required by law. The above report was generated using voice recognition software. It may contain grammatical, syntax o r spelling errors. Dictated: 06/25/2024 1:24 PM Transcribed: 06/25/2024 1:31 PM Jan [id number] [email or web address] Electronically signed by: Lorenzo Ocampo M.D. 06/25/2024 1:47 PM
--- NOTE | 2024-06-25 15:00 | Hospitalist Progress Note ---
Date of Service June 25, 2024 Assessment & Plan (1) Cellulitis of left leg: Plan: 43yo female with history of liver cirrhosis secondary to MASH presenting with warmth, redness, swelling and pain of the LLE. Patient with recent cellulitis of the RLE which improved with IV Ceftriaxone and Cefdinir. LE duplex negative for DVT in ED CRP was elevated higher than baseline and WBC was higher than her baseline as well - both improved, CRP down from 11 to 7 There is a papular rash around the left knee area, possibly this is an impetigo pattern. I do not see any pustules. Almost has the appearance of a palpable purpura but there is no generalization on the LE so seems unlikely. Not dermatomal and does not look like zoster. -consulted ID. Discussed with Dr. Costa. Obtained CT of lower legs - no abscess. Edema/thickening compatible with cellulitis. Antibiotics broadened to cefepime to cover pseudomonas -follow up blood culture but I am not suspicious of bacteremia - NGTD at 24h -she does frequently have component of inflamed edema that can be difficult to distinguish from cellulitis, however, she is not currently volume overloaded and her edema is the least I have seen it this year (2) 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: Plan: Patient with liver cirrhosis secondary to MASH, ascites requiring frequent paracenteses, diuretic management with Bumex/Spironolactone/Metolazone, ruptured umbilical hernia, hepatic encephalopathy on Rifaximin and Lactulose. She is following at [facility] and is slated for liver transplant on 07/05/24. Bilirubin and INR are within recent baseline -hold bumex, metolazone because of severe refractory hypokalemia. K still 2.7-->2.6 today despite massive replacement yesterday. ordered serial oral potassium x 3 doses repeat K at 6pm. mag 1.8 replace with 1g IV -Continue spironolactone -Potassium improved, resume oral bumex -ascites - hx refractory ascites in the past on 2x a week para, however, has come under control with addition of metolazone and rupture of her periumbilical hernia which sometimes drains ascites - had US 06/24 no ascites to tap - per my discussion with her gsa coordinator 06/24 - no paracentesis for one week prior to transplant (no para starting 06/28) to avoid hypovolemia -continue lactulose for chronic hepatic encephalopathy -continue betadine bid and PRN for ruptured umbilical hernia. No current ascites. No evidence of peritonitis - no abdominal pain or tenderness on exam -Isolation precautions - patient reports being told to maintain isolation if possible given her upcoming transplant Plan severe hypokalemia - this occurred because her pharmacy filled an old rx for her potassium so she was taking 20 bid insead of the intended 40 bid at home recently -serial replacement given this admission -improved to 3.1 today - continue potassium po 60 bid AM CMP mild fungal rash upper abdomen - ketoconazole. had course ketoconazole that she just completed - organisms may be - rash still visible probably from capillary leak but not raised. 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 Clear to auscultation bilaterally. No RRW Heart: Regular rate and rhythm, no murmurs. No JVD Abdomen: Soft, nontender, nondistended. Bowel sounds present. umbilical hernia with 2cm opening, no erythema or drainage Extremities: Warm, dry, well-perfused. 2+ bilateral LE edema. LLE not nearly as warm and red today (looks similar to 06/23). Scattered papules around area of L knee especially and few on thigh - not in dermatomal distribution, no vesicles or pus - unchanged. Handful of healed/crusted old similar lesions on R leg. 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 serpiginous rash with central clearing upper mid abdomen - looks like resolving tinea Neuro: Alert and oriented x 4, face symmetric, moves 4 extremities well Psych: Normal affect and behavior Results & Data Results & Data Vital Signs (Past 12 Hours) Vital Signs Temp Pulse Resp BP Pulse Ox O2 Del Method 06/25/24 07:44 36.7 C 73 18 124/79 96 Room Air Laboratory Results 06/23/24 07:48 06/25/24 06:39 PG Care Time/CCT Total # of Minutes Spent Total Time Spent with Patient: Total time spent is greater than 50% in coordination of care (as documented) at patient's floor/unit and/or counseling patient: Coding Level of Care Code 29365 SUB INP/OBS CARE 3/50MIN Diagnoses Cellulitis of left leg L03.116 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
[2024-06-25] MEDS ORDERED: KETOCONAZOLE 2% CR 15 GM TUBE EXT SCH (21:00)
[2024-06-26 07:38] LABS: Albumin Globulin Ratio 0.8 (0.9-2); Albumin Level 3.4 gm/dl (3.4-5.0); BUN Creatinine Ratio 21.1 (10-20); Bilirubin,Total 2.4 mg/dl (0.2-1.0); Calcium 8.7 mg/dl (8.6-10.3); Creatinine Clr Calc Pharmacy 87.6 ml/min; Globulin 4.1 gm/dl (2.5-4.0); Potassium 3.4 mmol/L (3.5-5.1); Total Protein 7.5 gm/dl (6.0-8.3)
--- NOTE | 2024-06-26 16:20 | Hospitalist Progress Note ---
Date of Service June 26, 2024 Assessment & Plan (1) Cellulitis of left leg: Plan: 43yo female with history of liver cirrhosis secondary to MASH presenting with warmth, redness, swelling and pain of the LLE. Patient with recent cellulitis of the RLE which improved with IV Ceftriaxone and Cefdinir. LE duplex negative for DVT in ED CRP was elevated higher than baseline and WBC was higher than her baseline as well - both improved, CRP down from 11 to 7 There is a papular rash around the left knee area, scattered papules on upper L thigh and few old appearing ones on R calf -consulted ID. Obtained CT of lower legs - no abscess. Antibiotics broadened to cefepime to cover pseudomonas -reviewed photos informally with derm - nonspecific papules, possibly folliculitis, venous stasis disease -follow up blood culture but I am not suspicious of bacteremia - NGTD >48h -she does frequently have component of inflamed edema that can be difficult to distinguish from cellulitis, however, she is not currently volume overloaded and her edema is the least I have seen it this year I see definite improvement bilaterally after change to cefepime on 06/25 Today potassium is acceptable so will start some diuresis with IV bumex 2 mg bid. Added midday extra dose of potassium 40 meq. Already on 60 bid -AM BMP, mag (2) 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: Plan: Patient with liver cirrhosis secondary to MASH, ascites requiring frequent paracenteses, diuretic management with Bumex/Spironolactone/Metolazone, ruptured umbilical hernia, hepatic encephalopathy on Rifaximin and Lactulose. She is following at [facility] and is slated for liver transplant on 07/05/24. Bilirubin and INR are within recent baseline -bumex IV for now -Continue spironolactone -hypokalemia improved see above -ascites - hx refractory ascites in the past on 2x a week para, however, has come under control with addition of metolazone and rupture of her periumbilical hernia which sometimes drains ascites - had US 06/24 no ascites to tap - per my discussion with her sustainability coordinator 06/24 - no paracentesis for one week prior to transplant (no para starting 06/28) to avoid hypovolemia -continue lactulose for chronic hepatic encephalopathy -continue betadine bid and PRN for ruptured umbilical hernia. No current ascites. No evidence of peritonitis - no abdominal pain or tenderness on exam -Isolation precautions - patient reports being told to maintain isolation if possible given her upcoming transplant Plan mild fungal rash upper abdomen - ketoconazole. had course ketoconazole that she just completed - organisms may be - rash still visible probably from capillary leak but not raised. low risk to keep the ketoconazole going for right now, also will put this on her feet since there is some peeling skin on R foot DVT ppx - SCDs, ambulating frequently Admission and Anticipated Discharge Date Admission Date: June 22, 2024 Subjective legs improved - less red and tender. papules improved. some wet machine tender. no new ones no abdominal pain, some nausea Physical Exam 2 Physical Exam: PHYSICAL EXAMINATION Last 24h vital signs reviewed, see documentation in flowsheet General: comfortable appearing, no distress, sitting in chair watching football HEENT: Normocephalic, atraumatic, pupils round and equal, sclerae anicteric, no conjunctival injection, moist mucus membranes Lungs: Normal respiratory effort. Heart: Deferred Abdomen: Soft, nontender, nondistended. umbilical hernia with 2cm opening, no erythema or drainage Extremities: Warm, dry, well-perfused. 2+ bilateral LE edema improved. Erythema and induration definitely improved bilaterally, no longer warm. Papules around L knee faded considerably. serpiginous rash with central clearing upper mid abdomen - looks like resolving/resolved tinea Neuro: Alert and oriented x 4, face symmetric, moves 4 extremities well, +tremor no asterixis Psych: Normal affect and behavior Results & Data Results & Data Vital Signs (Past 12 Hours) Vital Signs Temp Pulse Resp BP Pulse Ox O2 Del Method 06/26/24 15:25 36.7 C 89 17 144/85 H 96 Room Air 06/26/24 10:00 Room Air 06/26/24 08:00 36.8 C 80 17 114/65 93 Room Air Laboratory Results 06/23/24 07:48 06/26/24 06:45 PG Care Time/CCT Total # of Minutes Spent Total Time Spent with Patient: Total time spent is greater than 50% in coordination of care (as documented) at patient's floor/unit and/or counseling patient: Coding Level of Care Code 90601 SUB INP/OBS CARE 3/50MIN Diagnoses Cellulitis of left leg L03.116 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
[2024-06-26] MEDS: POTASSIUM CHLORIDE PWD 20 MEQ PACK PO ONE (16:40)
[2024-06-26] MEDS: BUMETANIDE 2 MG in SYRINGE 0 ML IV SCH (18:09)
[2024-06-27] MEDS: ALPRAZolam 0.5 MG TABLET PO PRN (01:05)
[2024-06-27 06:48] LABS: BUN Creatinine Ratio 24.1 (10-20); Calcium 8.4 mg/dl (8.6-10.3); Potassium 3.6 mmol/L (3.5-5.1)
--- NOTE | 2024-06-27 12:01 | Hospitalist Progress Note ---
Date of Service June 27, 2024 Assessment & Plan (1) Cellulitis of left leg: Plan: 43yo female with history of liver cirrhosis secondary to MASH presenting with warmth, redness, swelling and pain of the LLE. Patient with recent cellulitis of the RLE which improved with IV Ceftriaxone and Cefdinir. LE duplex negative for DVT in ED CRP was elevated higher than baseline and WBC was higher than her baseline as well - both improved, CRP down from 11 to 7 - recheck CRP There is a papular rash around the left knee area, scattered papules on upper L thigh and few old appearing ones on R calf -consulted ID. Obtained CT of lower legs - no abscess. Antibiotics broadened to cefepime to cover pseudomonas - significant improvement with cefepime -reviewed photos informally with derm - nonspecific papules, possibly folliculitis, venous stasis disease -follow up blood culture but I am not suspicious of bacteremia - NGTD >48h, reviewed -she does frequently have component of inflamed edema that can be difficult to distinguish from cellulitis, however, she is not currently volume overloaded and her edema is the least I have seen it this year I see definite improvement bilaterally after change to cefepime on 06/25 - continue. Probably discharge tomorrow with oral cipro and cefadroxil 500 bid total 10d. Check EKG qtc Continue diuresis - increased IV bumex to 3 mg bid and increased potassium to 60 meq tid, continue rhonda, metolazone held. Cr and potassium normal today. AM BMP and mag (2) 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: Plan: Patient with liver cirrhosis secondary to MASH, ascites requiring frequent paracenteses, diuretic management with Bumex/Spironolactone/Metolazone, ruptured umbilical hernia, hepatic encephalopathy on Rifaximin and Lactulose. She is following at [facility] and is slated for liver transplant on 07/05/24. Bilirubin and INR are within recent baseline -bumex IV for now -Continue spironolactone -hypokalemia improved see above -ascites - hx refractory ascites in the past on 2x a week para, however, has come under control with addition of metolazone and rupture of her periumbilical hernia which sometimes drains ascites - had US 06/24 no ascites to tap - per my discussion with her clinical trials data coordinator 06/24 - no paracentesis for one week prior to transplant (no para starting 06/28) to avoid hypovolemia - based on exam today no significant ascites -continue lactulose and rifaximin for chronic hepatic encephalopathy, controlled -continue betadine bid and PRN for ruptured umbilical hernia. No current ascites. No evidence of peritonitis - no abdominal pain or tenderness on exam -Isolation precautions - patient reports being told to maintain isolation if possible given her upcoming transplant Plan mild fungal rash upper abdomen - ketoconazole. had course ketoconazole that she just completed - organisms may be - rash still visible probably from capillary leak but not raised. low risk to keep the ketoconazole going for right now, also will put this on her feet since there is some peeling skin on R foot anticipate discharge home tomorrow DVT ppx - SCDs, ambulating frequently Admission and Anticipated Discharge Date Admission Date: June 22, 2024 Subjective legs are improved - less red and inflamed. papules fading, no new ones. posterior right calf less tender and indurated does not perceive increase in UOP with 2 mg IV bumex Physical Exam 2 Physical Exam: PHYSICAL EXAMINATION Last 24h vital signs reviewed, see documentation in flowsheet General: walking around in room HEENT: Normocephalic, atraumatic, pupils round and equal, sclerae anicteric, no conjunctival injection, moist mucus membranes Lungs: Normal respiratory effort. Heart: Deferred Abdomen: Soft, nondistended. umbilical hernia with 2cm opening, no erythema or drainage. Old paracentesis sites appear less inflamed Extremities: Warm, dry, well-perfused. 2+ bilateral LE edema improved - skin more wrinkly. Erythema and induration of bilateral lower legs continues to improve, no longer warm. Papules around L knee faded considerably. No new papules. posterior R calf less indurated and softer serpiginous rash with central clearing upper mid abdomen - looks like resolving/resolved tinea. Tiny 1.5 cm round flat area of erythema inferior L wrist eczematous patch with mild excoriation R lower back cold sore L lower lip. not crusted, unroofed Neuro: Alert and oriented x 4, face symmetric, moves 4 extremities well, +tremor no asterixis Psych: Normal affect and behavior Results & Data Results & Data Vital Signs (Past 12 Hours) Vital Signs Temp Pulse Resp BP Pulse Ox O2 Del Method 06/27/24 07:04 36.6 C 75 16 104/64 94 Room Air Laboratory Results 06/23/24 07:48 06/27/24 05:54 PG Care Time/CCT Total # of Minutes Spent Total Time Spent with Patient: Total time spent is greater than 50% in coordination of care (as documented) at patient's floor/unit and/or counseling patient: Coding Level of Care Code 84974 SUB INP/OBS CARE 2/35MIN Diagnoses Cellulitis of left leg L03.116 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
[2024-06-27 13:01] LABS: C Reactive Protein 2.31 mg/dl (0-0.5)
[2024-06-27 13:21] LABS: Ferritin 58.7 ng/ml (8-388)
[2024-06-27] MEDS: POTASSIUM CHLORIDE PWD 20 MEQ PACK PO SCH (13:32)
[2024-06-27] MEDS: TRIAMCINOLONE ACET 0.1% CR 80 GM TUBE EXT SCH (13:46)
[2024-06-27] MEDS: BUMETANIDE 3 MG in SYRINGE 0 ML IV SCH (16:53)
--- NOTE | 2024-06-27 17:42 | Electrocardiogram Report ---
Test Reason : Blood Pressure : */* mmHG Vent. Rate : 76 BPM Atrial Rate : 76 BPM P-R Int : 150 ms QRS Dur : 96 ms QT Int : 462 ms P-R-T Axes : 14 0 26 degrees QTcB Int : 519 ms Normal sinus rhythm Prolonged QT Abnormal ECG When compared with ECG of 02-Jun-2024 10:27, No significant change was found Confirmed by Bernie Perez (Edenilson) on 06/27/2024 5:41:44 PM Referred By: REFERRED SELF Confirmed By: Brenie Perez
[2024-06-27] MEDS: POTASSIUM CHLORIDE 10 MEQ TABCR PO SCH (20:13)
[2024-06-27] MEDS: valACYclovir HCL 500 MG TABLET PO SCH (21:01)
[2024-06-28 06:43] LABS: BUN Creatinine Ratio 20.5 (10-20); Calcium 8.7 mg/dl (8.6-10.3); Creatinine Clr Calc Pharmacy 102.2 ml/min; Potassium 3.6 mmol/L (3.5-5.1)
--- NOTE | 2024-06-28 08:51 | Ultrasound Report ---
US abdomen ltd ascites HISTORY: 43 years-old Female ascites COMPARISON: 06/24/2024 TECHNIQUE: Single sonographic image of the abdomen was submitted FINDINGS/IMPRESSION: No ascites identified, therefore paracentesis was not conducted. ACT 112: Negative or not required by law. The above report was generated using voice recognition software. It may contain grammatical, syntax o r spelling errors. Electronically signed by: Lorenzo Ocampo M.D. 06/28/2024 8:50 AM
[2024-06-28] MEDS: POTASSIUM CHLORIDE PWD 20 MEQ PACK PO SCH ×2 (09:52→20:57)
[2024-06-28] MEDS: PROMETHAZINE HCL 25 MG TAB PO PRN (10:51)
--- NOTE | 2024-06-28 11:13 | Infectious Disease Progress Nt ---
Date of Service June 28, 2024 Assessment & Plan (1) Cellulitis of left leg: (2) Cellulitis of foot, left: (3) Liver disease: Plan This ia a 43-year-old female with past medical history of DUNAWAY cirrhosis, pending liver transplant on 07/05/2024, hepatic encephalopathy, portal vein thrombosis, occipital neuralgia, anasarca, DM2 recently admitted 06/02/2024 - 06/06/2024 for presumed right lower extremity cellulitis. On that admission she had presented with a few day history of 4+ pitting edema of the right lower extremity with erythema, that started gradually and then spread above her knees into her groin. Her MRSA screen was negative. She had no purulent drainage from her leg but did have some weeping. DVT was ruled out. She was started on Ceftriaxone with improvement and she was discharged to complete 5 additional days of cefdinir. RLE never returned to baseline. She returns to the ED on 06/22/24, with worsening LEFT leg swelling and erythema. Her right lower extremity area of erythema is less swollen , but still erythematous with a medial calf ulcer. She denies falls, trauma, open wounds, scratching of the skin. No fever, chills, sweats. She has scattered new lesions on LLE. In the ED, temperature 36.4, pulse 90, RR 20, blood pressure 120/80, O2 sats 94% on room air. Labs WBC 7.34, hemoglobin 11.4, hematocrit 33.4, platelets 86, potassium 2.5, BUN 22, creatinine 1.09, ESR 94, CRP 11.11---> 5.78. Chest x-ray with no acute disease. Left lower extremity Doppler negative for DVT. Abdominal ultrasound with no ascites.She was started on Ceftriaxone. She remains afebrile without a leukocytosis. ID consulted for recurrent cellulitis She tells me that the bilateral lower extremity swelling, erythema, pain has been ongoing for approximately 3 months. She has been treated with courses of doxycycline, Bactrim, Keflex and more recently inpatient she received ceftriaxone and then cefdinir. Despite antibiotic exposure, she feels that the areas have not markedly improved. The only major change she has noticed is less edema since additional diuretics (metolazone ): the edema has improved.. There are areas of chronic stasis on exam. Microbiology Blood cultures 06/22 NGTD Antibiotics: Ceftriaxone 06/22o108/25 cefepime 06/25- ongoing #LLE swelling , erythema, pain, improved #RLE Medial ulcer with induration # Scattered LE lesions L>R # BL LE chronic Stasis changes #Recent ? R LE cellulitis #Dunaway Cirrhosis, pending liver transplant 07/05/24 Discussion: Her lower extremity skin process been ongoing for 3 months. She may have had superimposed bacterial cellulitis in setting of LE edema from ESLD. Bacterial organisms of concern include skin flara/ staph species and streptococcal species. No history of MRSA. She has been exposed to multiple abx inpt and outpt that would have covered these org( Bactrim, Keflex, cefdinir, doxy, Ceftriaxone) Lower extremity erythema, tenderness and edema waxes and wanes per the patient in the last 3 months despite exposure to antibiotics. What is new on this presentation is scattered papular appearing lesions. She denies recent exposure to hot tubs, bodies of water, travel, animal exposures. Lesions are dry. There are scattered and purple appearing in some areas. She does have a right medial calf ulcer with surrounding induration. On 06/25 Considered pseudomonas as a potential organism given appearance of lesions and switched abx to Cefepime. LE CT scan with findings c/f cellulitis/lymphedema. No evidence of abscess, myositis or deep space infection Also noted on exam is a different appearing rash that appears more fungal on the upper abdomen and flank. She reports these have been ongoing for months and have responded to topical ketoconazole 06/29 scattered appearing lesions/areas of ? folliculitis and cellulitis improving Recommendations Continue cefepime 2 g IV every 12 hours. EOT 07/01/24. QTC prolonged at 519, so fluoroquinolones not recommended. Cefepime will continue to cover ?Psa, staph, strep. -Follow up BC Keep LE elevated when seated D/W team ID will sign off. Call with questions. Sher Costa MD, MPH Infectious Disease [facility], ID Division Admission and Anticipated Discharge Date Admission Date: June 22, 2024 Subjective Subsequent visit was provided via telemedicine using two-way real-time interactive telecommunication between the patient and the telemedicine provider. For the duration of the visit, the provider was performing the assessment from a different facility than the patient. This includesuse of bluetooth stethoscope forauscultationperformed by the telepresenter that the telemedicine provider can hear if described in the physical exam. Hydration Plant Operator contact information: Please call [facility] Call Center . (Phone Number For Physician Use Only) After establishing a telemedicine visit, patient was: Patient was verified with two unique identifiers Time Spent with Patient: Subsequent => 35 min Afebrile Areas of folliculitis/cellulitis improving Has a new cold sore on Left lip, started on valtrex and improving Physical Exam Physical Exam: Gen- NAD, pleasant Neck - supple HEENT- Left facial birthmark, anicteric sclera, left bottom lip cold sore Lung- No increased work of breathing Skin- BL Chronic stasis changes R>>L. Right calf erythema, thickened warm skin with Medial calf ulcer ( improve) with surrounding indurated area,no fluctuance. LLE edema erythema lessthan R, several scattered pustular non vesicular lesions ( improved, fading) > R . 1 similar lesion on R lateral chest. Hyper pigmented lesions upper ab, below breast. Dry patch of erythematous skin on RL back Abd- softly distended, no TTP today Neuro- AAO times 3 Extremity- see skin. BL LE edema ( improved) . PSych- cooperative Results & Data Vital Signs (Past 12 Hours) Vital Signs Temp Pulse Resp BP Pulse Ox O2 Del Method 06/28/24 07:04 36.7 C 78 16 123/77 97 Room Air Laboratory Results Laboratory Results - last 48 hr 06/27/24 06/27/24 06/28/24 05:54 12:27 06:01 Sodium 136 135 L Potassium 3.6 3.6 Chloride 93 L 97 L Carbon Dioxide 38 H 34 H Anion Gap 5 4 BUN 20 16 Creatinine 0.83 0.78 Est Cr Clr Drug Dosing 95.0 102.2 eGFR 89.65 96.59 BUN/Creatinine Ratio 24.1 H 20.5 H Glucose 104 H 120 H Calcium 8.4 L 8.7 Magnesium 2.0 2.0 Iron 94 Transferrin 255 Ferritin 58.7 C-Reactive Protein 2.31 H Diagnostic Findings Microbiology 06/22/24 19:03 Blood Aerobic Blood Culture - Final No growth in Aerobic bottle after 5 days. 06/22/24 19:03 Blood Anaerobic Blood Culture - Final Lower Extremity CT 06/25/24 10:59 CT tib/fib RT w con CLINICAL HISTORY: cellulitis possible abscess COMPARISON STUDY: Right lower extremity venous Doppler ultrasound June 04, 2024. TECHNIQUE: Axial images of the right tibia and fibula/lower leg were obtained following intravenous injection of 94 cc of Optiray 320 IV. Sagittal and coronal reconstructions were viewed. Automated exposure control was utilized for the study. A dose lowering technique was utilized adhering to the principles of ALARA. FINDINGS: Moderate right lower leg subcutaneous fluid is noted with skin thickening. No soft tissue gas is present. There are no rim-enhancing fluid collections within the right lower leg. Varicosities are incidentally noted. There are no fractures or areas of bony erosion within the right tibia or fibula. No osseous lesions are identified. IMPRESSION: 1. Moderate right lower leg subcutaneous fluid with skin thickening suggestive of cellulitis. No fluid collection to suggest abscess. 2. No fractures within the right tibia or fibula. No evidence for acute osteomyelitis. ACT 112: Negative or not required by law. Electronically signed by: Guero Garcia M.D. 06/25/2024 1:[address] 06/25/24 10:59 CT tib/fib LT w con HISTORY: 43 years-old Female cellulitis possible abscess Acute pain and swelling of the lower legs. COMPARISON: None. TECHNIQUE: Multiple axial CT images of the left tibia and fibula were obtained with IV contrast. A dose lowering technique was used consistent with the principals of ALARA. FINDINGS: There is moderate circumferential subcutaneous edema of the lower leg with associated skin thickening. No fluid collections or mass lesion is identified. Tendons and ligaments are not well-evaluated by CT technique. No large joint effusion is identified. Superficial venous varicosity is incidentally noted. Type II accessory navicular is noted in addition to an os trigonum. No acute fracture, dislocation, osseous erosion or suspicious bone lesion. Minimal tibiotalar osteoarthritis. Benign-appearing bone islands of the medial talar dome. No osteochondral defect is identified. IMPRESSION: 1. No acute osseous abnormality. 2. Moderate nonspecific subcutaneous edema with dermal thickening. Differential considerations include cellulitis, venous stasis or lymphedema. 3. No fluid collection to suggest abscess. ACT 112: Negative or not required by law. The above report was generated using voice recognition software. It may contain grammatical, syntax or spelling errors. Dictated: 06/25/2024 1:24 PM Transcribed: 06/25/2024 1:31 PM Jan [id number] [email or web address] Electronically signed by: Lorenzo Ocampo M.D. 06/25/2024 1:47 PM Abdomen Ultrasound 06/28/24 07:55 US abdomen ltd ascites HISTORY: 43 years-old Female ascites COMPARISON: 06/24/2024 TECHNIQUE: Single sonographic image of the abdomen was submitted FINDINGS/IMPRESSION: No ascites identified, therefore paracentesis was not conducted. ACT 112: Negative or not required by law. The above report was generated using voice recognition software. It may contain grammatical, syntax or spelling errors. Electronically signed by: Lorenzo Ocampo M.D. 06/28/2024 8:50 AM Medications Administered Home Medications Medication Instructions Recorded Confirmed Last Taken valacyclovir 500 mg tablet 500 mg PO Q8 PRN .BREAKOUTS 02/14/23 06/22/24 Unknown ipratropium 20 mcg-albuterol 100 1 puff inhalation QID PRN 06/23/23 06/22/24 Unknown mcg/actuation mist for inhalation cough/wheeze/shortness of breath (Combivent Respimat) #1 inhaler triamcinolone acetonide 0.1 % 1 applic EXT TID PRN dry, itchy 06/23/23 06/22/24 Unknown topical cream skin on legs/abdominal wall #15 grams onfvslyjzk-[id number]-ytzwgyje 2 tab PO Q6 PRN Pain 07/21/23 06/22/24 Unknown 50 mg-325 mg-40 mg tablet clobetasol 0.05 % scalp solution 1 applic topical BID PRN for scalp 07/21/23 06/22/24 07/21/23 famotidine 40 mg tablet 40 mg PO QAM 07/21/23 06/22/24 06/01/24 omeprazole 40 mg capsule,delayed 40 mg PO BID 07/21/23 06/22/24 06/01/24 release prochlorperazine maleate 5 mg 5 mg PO QID PRN Nausea 07/21/23 06/22/24 07/20/23 tablet (Compazine) promethazine 25 mg rectal 25 mg FL UD PRN Nausea 07/21/23 06/22/24 Unknown suppository (Promethegan) venlafaxine 150 mg 150 mg PO DAILY #30 caps 08/15/23 06/22/24 06/01/24 capsule,extended release 24 hr (Effexor XR) venlafaxine 75 mg capsule,extended 75 mg PO DAILY #30 caps 08/15/23 06/22/24 1 release 24 hr (Effexor XR) linaclotide 290 mcg capsule 290 mcg PO QAM 10/06/23 06/22/24 06/01/24 (Linzess) spironolactone 100 mg tablet 100 mg PO BID 10/06/23 06/22/24 06/01/24 tizanidine 4 mg tablet 2 mg PO Q6H PRN muscle spasms 10/06/23 06/22/24 05/02/24 lactulose 10 gram/15 mL (15 mL) 30 g (45 mL) PO TID #1,440 mL 10/10/23 06/22/24 06/01/24 oral solution rifaximin 550 mg tablet (Xifaxan) 550 mg PO BID #1 tab 10/10/23 06/22/24 06/01/24 sumatriptan succinate 50 mg tablet 50 mg PO UD PRN Migraine Headache 10/29/23 06/22/24 Unknown ubrogepant 50 mg tablet (Ubrelvy) 50 mg PO .COMPLEX PRN headache #10 12/18/23 06/22/24 Unknown tabs pramipexole 0.5 mg tablet 0.5 mg PO QID 02/06/24 06/22/24 06/22/24 14:00 bumetanide 1 mg tablet 3 mg (3 x 1 mg) PO BID #180 tabs 03/26/24 06/22/24 06/01/24 diclofenac sodium 1 % topical gel 4 g EXT QID PRN right shoulder 03/26/24 06/22/24 Unknown (Voltaren Arthritis Pain) pain #1 tube metolazone 2.5 mg tablet 2.5 mg PO DIRECTED 04/13/24 06/22/24 06/01/24 alprazolam 1 mg tablet 1 mg PO BID PRN Anxiety 05/02/24 06/22/24 Unknown calcium carbonate 400 1 tab PO TIDM 05/02/24 06/22/24 06/01/24 mg-simethicone 40 mg chewable tablet cholecalciferol (vitamin D3) 25 25 mcg PO QAM 05/02/24 06/22/24 06/01/24 mcg (1,000 unit) chewable tablet levothyroxine 200 mcg/mL oral 300 mcg PO QAM 05/02/24 06/22/24 06/01/24 solution (Tirosint-Marisa) sertraline 100 mg tablet 100 mg PO QAM 05/02/24 06/22/24 06/01/24 sertraline 50 mg tablet 50 mg PO QAM 05/02/24 06/22/24 06/01/24 blood sugar diagnostic (OneTouch #100 ea 05/07/24 06/22/24 Unknown Verio test strips) lancets (Microlet Lancet) #100 ea 05/07/24 06/22/24 Unknown potassium chloride 20 mEq oral 40 meq PO BID #120 packets 05/07/24 06/22/24 06/01/24 packet gabapentin 600 mg tablet 600 mg PO TID PRN nerve pain 06/22/24 06/22/24 Unknown magnesium oxide 400 mg PO QPM 06/22/24 06/22/24 Unknown semaglutide 1 mg/dose (4 mg/3 mL) 1 mg subcut WK 06/22/24 06/22/24 Unknown subcutaneous pen injector (Ozempic) Active Medications Generic Name Dose Route Start Last Admin Trade Name Freq PRN Reason Stop Dose Admin Alprazolam 1 mg 06/23/24 00:02 06/27/24 01:05 EDT Alprazolam 0.5 Mg Tablet PO 07/23/24 00:01 1 mg BID PRN Administration Anxiety Bumetanide 3 mg 06/23/24 09:00 06/26/24 08:18 Bumetanide 1 Mg Tab PO 07/23/24 08:59 3 mg [id number] CHERYLE Administration Enoxaparin Sodium 40 mg 06/23/24 06:00 06/28/24 06:19 Enoxaparin Inj 40 Mg/0.4 Ml Syr SQ 07/23/24 05:59 40 mg Q24H CHERYLE Administration Famotidine 40 mg 06/23/24 09:00 06/28/24 08:11 Famotidine 40 Mg Tablet PO 07/23/24 08:59 40 mg QAM CHERYLE Administration Gabapentin 600 mg 06/23/24 00:02 06/24/24 08:26 Gabapentin 600 Mg Tab PO 07/23/24 00:01 600 mg TID PRN Administration nerve pain Cefepime HCl 2,000 mg in 20 mls @ 5 mls/min 06/25/24 10:30 06/27/24 21:20 Maxipime 2000mg IV 07/02/24 10:29 5 mls/min Q12H CHERYLE Administration Protocol Bumetanide 3 mg/ Syringe 12 mls @ 4 mls/min 06/27/24 17:00 06/28/24 09:52 IV 06/28/24 23:55 4 mls/min BID@0900,1700 CHERYLE Administration Ketoconazole 1 appln 06/23/24 21:00 06/28/24 08:10 Ketoconazole 2% Cr 15 Gm Tube EXT 07/03/24 20:59 1 appln BID CHERYLE Administration Lactulose 30 gm 06/23/24 09:00 06/28/24 08:14 Lactulose Syrup 30 Gm/45 Ml Udp PO 07/23/24 08:59 30 gm TID CHERYLE Administration Levothyroxine Sodium 300 mcg 06/23/24 06:30 06/28/24 06:19 Levothyroxine Sodium 150 Mcg Tablet PO 07/23/24 06:29 300 mcg DAILYBB CHERYLE Administration Linaclotide 290 mcg 06/23/24 09:00 06/28/24 08:11 Linaclotide 145 Mcg Capsule PO 07/23/24 08:59 290 mcg QAM CHERYLE Administration Metolazone 2.5 mg 06/24/24 09:00 06/24/24 08:23 Metolazone 2.5 Mg Tablet PO 07/24/24 08:59 2.5 mg MoThSa@0900 CHERYLE Administration Ondansetron HCl 4 mg 06/22/24 23:26 06/25/24 10:49 Ondansetron Inj 2 Mg/Ml 2 Ml Vial IV 07/22/24 23:25 4 mg Q6H PRN Administration Nausea And Vomiting Oxycodone HCl 10 mg 06/23/24 13:29 06/28/24 08:12 Oxycodone Hcl Ir 5 Mg Tab (Immediate Release) PO 07/06/24 23:25 10 mg Q4H PRN Administration Pain Pantoprazole Sodium 40 mg 06/23/24 09:00 06/28/24 08:10 Pantoprazole 40 Mg Tab PO 07/23/24 08:59 40 mg BID CHERYLE Administration Potassium Chloride 60 meq 06/28/24 09:00 06/28/24 09:52 Potassium Chloride Pwd 20 Meq Pack PO 07/28/24 08:59 60 meq TID CHERYLE Administration Pramipexole Dihydrochloride 0.5 mg 06/23/24 09:00 06/28/24 08:10 Pramipexole Dihydrochlo 0.5 Mg Tab PO 07/23/24 08:59 0.5 mg QID CHERYLE Administration Promethazine HCl 25 mg 06/28/24 10:04 06/28/24 10:51 Promethazine Hcl 25 Mg Tab PO 07/28/24 10:03 25 mg Q6H PRN Administration Nausea And Vomiting Rifaximin 550 mg 06/23/24 09:00 06/28/24 08:20 Rifaximin 550 Mg Tablet PO 07/23/24 08:59 550 mg BID CHERYLE Administration Sertraline HCl 100 mg 06/23/24 09:00 06/28/24 08:11 Sertraline Hcl 100 Mg Tablet PO 07/23/24 08:59 100 mg QAM CHERYLE Administration Sertraline HCl 50 mg 06/23/24 09:00 06/28/24 08:11 Sertraline Hcl 50 Mg Tablet PO 07/23/24 08:59 50 mg QAM CHERYLE Administration Spironolactone 100 mg 06/23/24 09:00 06/28/24 08:14 Spironolactone 100 Mg Tab PO 07/23/24 08:59 100 mg BID17 CHERYLE Administration Tizanidine HCl 2 mg 06/23/24 00:02 06/25/24 20:35 Tizanidine Hcl 4 Mg Tablet PO 07/23/24 00:01 2 mg Q6H PRN Administration muscle spasms Triamcinolone Acetonide 1 appln 06/27/24 12:00 06/28/24 08:10 Triamcinolone Acet 0.1% Cr 80 Gm Tube EXT 07/07/24 11:59 1 appln BID CHERYLE Administration Venlafaxine HCl 75 mg 06/23/24 09:00 06/28/24 08:12 Venlafaxine Hcl Xr 75 Mg Capxr PO 07/23/24 08:59 75 mg DAILY CHERYLE Administration Venlafaxine HCl 150 mg 06/23/24 09:00 06/28/24 08:10 Venlafaxine Hcl Xr 150 Mg Capxr PO 07/23/24 08:59 150 mg DAILY CHERYLE Administration
--- NOTE | 2024-06-28 17:43 | Hospitalist Progress Note ---
Date of Service June 28, 2024 Assessment & Plan (1) Cellulitis of left leg: Plan: 43yo female with history of liver cirrhosis secondary to MASH presenting with warmth, redness, swelling and pain of the LLE. Patient with recent cellulitis of the RLE which improved with IV Ceftriaxone and Cefdinir. LE duplex negative for DVT in ED CRP was elevated higher than baseline and WBC was higher than her baseline as well - both improved, CRP down from 11 to 7 -->2.3 There is a papular rash around the left knee area, scattered papules on upper L thigh and few old appearing ones on R calf - appears like a folliculitis and resolving -consulted ID. Obtained CT of lower legs - no abscess. Antibiotics broadened to cefepime to cover pseudomonas - significant improvement with cefepime -reviewed photos informally with derm - nonspecific papules, possibly folliculitis, venous stasis disease -blood cultures from admission finalized negative -she does frequently have component of inflamed edema that can be difficult to distinguish from cellulitis, however, she is not currently volume overloaded and her edema is the least I have seen it this year I see significant bilateral improvement after change to cefepime on 06/25. Discussed with ID - cipro not an option because of elevated QTC (reviewed new EKG - qtc apx 520). Recommended seven days of cefepime (through . She needs to discharge on so she can make it to her transplant intake appt on Friday. diuresed last 24h with IV bumex - change back to po tomorrow, continue rhonda, metolazone held, usually tiw. BMP reviewed today CR and K wnl (2) 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: Plan: Patient with liver cirrhosis secondary to MASH, ascites requiring frequent paracenteses, diuretic management with Bumex/Spironolactone/Metolazone, ruptured umbilical hernia, hepatic encephalopathy on Rifaximin and Lactulose. She is following at [facility] and is slated for liver transplant on 07/05/24. Bilirubin and INR are within recent baseline -diuretics as above -ascites - hx refractory ascites in the past on 2x a week para, however, has come under control with addition of metolazone and rupture of her periumbilical hernia which sometimes drains ascites - had US 06/24, 06/28 no ascites to tap - per my discussion with her dental patient coordinator - no paracentesis for one week prior to transplant (none after today) to avoid hypovolemia -continue lactulose and rifaximin for chronic hepatic encephalopathy, controlled -continue betadine bid and PRN for ruptured umbilical hernia. No current ascites. No evidence of peritonitis - no abdominal pain or tenderness on exam -Isolation precautions - patient reports being told to maintain isolation if possible given her upcoming transplant MELD labs in AM - CMP and INR, requested nurse navigator to fax to her dental patient coordinator at [facility] (ph [phone], fax [phone]) (3) Hypokalemia: (4) Anemia: Plan: Chronic, at baseline Usually gets iron infusions and missed last one Iron studies 06/27 reviewed and normal. Would not infuse IV iron this week. Will get blood products transfusion with liver transplant. Plan mild fungal rash upper abdomen - ketoconazole. had course ketoconazole that she just completed - organisms may be - rash still visible probably from capillary leak but not raised. 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, now crusted anticipate discharge home DVT ppx - SCDs, ambulating frequently Admission and Anticipated Discharge Date Admission Date: June 22, 2024 Subjective both legs continue improving, posterior right calf still a bit sore and tender legs are less painful and less red, only 1 new papule just proximal to right knee Physical Exam 2 Physical Exam: PHYSICAL EXAMINATION Last 24h vital signs reviewed, see documentation in flowsheet General: sitting on edge of bed HEENT: Normocephalic, atraumatic, pupils round and equal, sclerae anicteric, no conjunctival injection, moist mucus membranes Lungs: Normal respiratory effort. Heart: Deferred Abdomen: Soft, nondistended. umbilical hernia with 2cm opening, no erythema or drainage. Old paracentesis sites no longer inflamed Extremities: Warm, dry, well-perfused. 2+ bilateral LE edema significantly improved. Erythema and induration of bilateral lower legs significantly improved, no longer warm. Papules around L knee faded considerably. 1 new papule proximal to left knee is at a follicle site with extremely tiny pustule at the head. posterior R calf still with indurated tender area around small wound with eschar, no obvious fluctuance, improved compared to yesterday serpiginous rash with central clearing upper mid abdomen - looks like resolving/resolved tinea. Tiny 1.5 cm round flat area of erythema inferior L wrist eczematous patch with mild excoriation R lower back - improved cold sore L lower lip. now crusted Neuro: Alert and oriented x 4, face symmetric, moves 4 extremities well, +tremor no asterixis Psych: Normal affect and behavior Results & Data Results & Data Vital Signs (Past 12 Hours) Vital Signs Temp Pulse Resp BP BP Pulse Ox O2 Del Method 06/28/24 14:55 36.8 C 89 18 128/78 96 Room Air 06/28/24 07:04 36.7 C 78 16 123/77 97 Room Air Laboratory Results 06/23/24 07:48 06/28/24 06:01 PG Care Time/CCT Total # of Minutes Spent Total Time Spent with Patient: I personally spent: 50 minutes today on clinical care activities including: reviewing chart notes and vital signs reviewing labs discussion with radiology regarding paracentesis discussion with executive talent acquisition consultant(s) - infectious diseases discussion with her dental patient coordinator discussion with gericare aide teacher examining and counseling the patient writing orders documentation Coding Level of Care Code 88521 SUB INP/OBS CARE 350MIN Diagnoses Cellulitis of left leg L03.116 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 Hypokalemia E87.6 Anemia D64.9 Anemia type: unspecified type (4) Anemia Anemia type: unspecified type Qualified Code(s): D64.9 - Anemia, unspecified
[2024-06-29 07:49] LABS: Albumin Globulin Ratio 0.8 (0.9-2); Albumin Level 3.2 gm/dl (3.4-5.0); BUN Creatinine Ratio 21.5 (10-20); Bilirubin,Total 1.7 mg/dl (0.2-1.0); Calcium 8.8 mg/dl (8.6-10.3); Creatinine Clr Calc Pharmacy 100.9 ml/min; Globulin 3.8 gm/dl (2.5-4.0); Potassium 3.9 mmol/L (3.5-5.1)
[2024-06-29 07:54] LABS: INR 1.3 (0.9-1.1); Prothrombin Time 13.9 Seconds (9.0-12.0)
--- NOTE | 2024-06-29 09:06 | Hospitalist Progress Note ---
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 Patient with recent cellulitis of the RLE which improved with IV Ceftriaxone and Cefdinir. LE duplex negative for DVT CRP improved with treatment of cellulitis -consulted ID. Obtained CT of lower legs - no abscess. Antibiotics broadened to cefepime to cover pseudomonas - significant improvement with cefepime -venous stasis disease -blood cultures from admission finalized negative significant bilateral improvement after change to cefepime on 06/25. Discussed with ID - cipro not an option because of elevated QTC (reviewed new EKG - qtc apx 520). Recommended seven days of cefepime (through . She needs to discharge on so she can make it to her transplant intake appt on Friday. diuresed last 24h with IV bumex -, continue rhonda, metolazone held, usually tiw. BMP reviewed today CR and K wnl (2) 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: Plan: Patient with liver cirrhosis secondary to MASH, ascites requiring frequent paracenteses, diuretic management with Bumex/Spironolactone/Metolazone, ruptured umbilical hernia, hepatic encephalopathy on Rifaximin and Lactulose. She is following at [facility] and is slated for liver transplant on 07/05/24. Bilirubin and INR are within recent baseline -diuretics -ascites - had US 06/24, 06/28 no ascites to tap - per Dr Brown's discussion with her client coordinator - no paracentesis for one week prior to transplant (none after today) to avoid hypovolemia -continue lactulose and rifaximin for chronic hepatic encephalopathy, controlled -continue Betadine bid and PRN for ruptured umbilical hernia. No current ascites. No evidence of peritonitis - no abdominal pain or tenderness on exam -Isolation precautions - patient reports being told to maintain isolation if possible given her upcoming transplant MELD labs in AM - CMP and INR, requested nurse navigator to fax to her client coordinator at [facility] (ph [phone], fax [phone]) (3) Hypokalemia: Plan: continue or replacement (4) Anemia: Plan: Chronic, at baseline Usually gets iron infusions and missed last one Iron studies 06/27 reviewed and normal. Would not infuse IV iron this week. Will get blood products transfusion with liver transplant. Plan mild fungal rash upper abdomen - ketoconazole. had course ketoconazole that she just completed - organisms may be - rash still visible probably from capillary leak but not raised. 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, now crusted use acyclovir cream anticipate discharge home DVT ppx - SCDs, ambulating frequently Admission and Anticipated Discharge Date Admission Date: June 22, 2024 Subjective pt is in good spirits, she has improving labial cold sores, improved lower extremity edema, and resoled umbilical hernia Physical Exam Physical Exam: lip cold sore is healing lungs are clear and cardiac is regular abd is distended and dull, umbilicus is healing ext with tr edema, cellulitis resolved Results & Data Results & Data Vital Signs (Past 12 Hours) Vital Signs Temp Pulse Resp BP BP Pulse Ox O2 Del Method 06/29/24 07:42 98.2 F 84 18 144/87 H 91 Room Air 06/28/24 21:17 98.2 F 89 16 123/76 97 Room Air Laboratory Results review INR, sodium, Cr MELD 11 6% mortality PG Care Time/CCT Total # of Minutes Spent Total Time Spent with Patient: Total time spent is greater than 50% in coordination of care (as documented) at patient's floor/unit and/or counseling patient: Coding Level of Care Code 95535 SUB INP/OBS CARE 3/50MIN Diagnoses Cellulitis of left leg L03.116 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 Hypokalemia E87.6 Anemia D64.9 Anemia type: unspecified type (4) Anemia Anemia type: unspecified type Qualified Code(s): D64.9 - Anemia, unspecified
[2024-06-29] MEDS: ACYCLOVIR 5% OINT 15 GM TUBE EXT SCH (13:18)
[2024-06-29] MEDS: BUMETANIDE 3 MG in SYRINGE 0 ML IV SCH (17:29)
[2024-06-29] MEDS: POTASSIUM CHLORIDE PWD 20 MEQ PACK PO SCH (21:54)
[2024-06-30] MEDS: PROMETHAZINE 12.5 MG/50.5 ML BAG IV STA (13:13)
--- NOTE | 2024-06-30 16:40 | Hospitalist Progress Note ---
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 Patient with recent cellulitis of the RLE which improved with IV Ceftriaxone and Cefdinir. LE duplex negative for DVT CRP improved with treatment of cellulitis -consulted ID. Obtained CT of lower legs - no abscess. Antibiotics broadened to cefepime to cover pseudomonas - significant improvement with cefepime -venous stasis disease -blood cultures from admission finalized negative significant bilateral improvement after change to cefepime on 06/25. Discussed with ID - cipro not an option because of elevated QTC (reviewed new EKG - qtc apx 520). Recommended seven days of cefepime (through . She needs to discharge on so she can make it to her transplant intake appt on Friday. diuresed last 24h with IV bumex -, continue rhonda, metolazone held, usually tiw. BMP reviewed today CR and K wnl (2) 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: Plan: Patient with liver cirrhosis secondary to MASH, ascites requiring frequent paracenteses, diuretic management with Bumex/Spironolactone/Metolazone, ruptured umbilical hernia, hepatic encephalopathy on Rifaximin and Lactulose. She is following at [facility] and is slated for liver transplant on 07/05/24. Bilirubin and INR are within recent baseline -diuretics -ascites - had US 06/24, 06/28 no ascites to tap - per Dr Brown's discussion with her cold rolling coordinator - no paracentesis for one week prior to transplant (none after today) to avoid hypovolemia -continue lactulose and rifaximin for chronic hepatic encephalopathy, controlled -continue Betadine bid and PRN for ruptured umbilical hernia. No current ascites. No evidence of peritonitis - no abdominal pain or tenderness on exam -Isolation precautions - patient reports being told to maintain isolation if possible given her upcoming transplant MELD labs in AM - CMP and INR, requested nurse navigator to fax to her cold rolling coordinator at [facility] (ph [phone], fax [phone]) (3) Hypokalemia: Plan: continue or replacement (4) Anemia: Plan: Chronic, at baseline Usually gets iron infusions and missed last one Iron studies 06/27 reviewed and normal. Would not infuse IV iron this week. Will get blood products transfusion with liver transplant. Plan mild fungal rash upper abdomen - ketoconazole. had course ketoconazole that she just completed - organisms may be - rash still visible probably from capillary leak but not raised. 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, now crusted use acyclovir cream anticipate discharge home DVT ppx - SCDs, ambulating frequently Admission and Anticipated Discharge Date Admission Date: June 22, 2024 Subjective pt is in good spirits, she has improving labial cold sores, improved lower extremity edema, and resoled umbilical hernia pt with some abd distension, unfortunately transplant did not want to have any paracentesis one week prior to evaluation Physical Exam Physical Exam: lip cold sore is healing lungs are clear and cardiac is regular abd is distended and dull, umbilicus is healing ext with tr edema, cellulitis resolved Results & Data Results & Data Vital Signs (Past 12 Hours) Vital Signs Temp Pulse Resp BP Pulse Ox O2 Del Method 06/30/24 15:31 98.1 F 82 18 124/85 94 Room Air 06/30/24 07:40 Room Air 06/30/24 07:04 98.6 F 76 16 105/64 93 Room Air PG Care Time/CCT Total # of Minutes Spent Total Time Spent with Patient: Total time spent is greater than 50% in coordination of care (as documented) at patient's floor/unit and/or counseling patient: Coding Level of Care Code 95198 SUB INP/OBS CARE 2/35MIN Diagnoses Cellulitis of left leg L03.116 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 Hypokalemia E87.6 Anemia D64.9 Anemia type: unspecified type (4) Anemia Anemia type: unspecified type Qualified Code(s): D64.9 - Anemia, unspecified
[2024-07-01 07:08] VITALS: RESP 16
[2024-07-01 07:55] LABS: BUN Creatinine Ratio 21.6 (10-20); Calcium 8.6 mg/dl (8.6-10.3); Creatinine Clr Calc Pharmacy 107.7 ml/min; Magnesium 1.9 mg/dl (1.7-2.4); Potassium 3.9 mmol/L (3.5-5.1)
[2024-07-01] MEDS: PROMETHAZINE 12.5 MG/50.5 ML BAG IV STA (11:35)
[2024-07-01] MEDS: ALBUMIN 25% 25 GM/100 ML VIAL IV ONE (13:12)
[2024-07-01 14:12] VITALS: BP 126/73; PULSE 84; TEMP 98.6; O2SAT 96
--- NOTE | 2024-07-01 15:51 | Discharge Summary ---
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 Patient with recent cellulitis of the RLE which improved with IV Cefepime ON the day of transfer developed abdominal pain nausea and vomiting. Her abdominal pain had rebound properties to it. Given the fact that she is having an upcoming possible transplant I phoned the permit coordinator and spoke to Dr. Sweeney at [facility]. Given the concern for peritonitis which could impact her surgery decision was made to transfer the patient to [facility] for further evaluation and treatment of possible SBP which would then if treated appropriately still permit the patient to proceed to her transplant. Patient was transferred by BLS services in the afternoon on 07/01/2024. LE duplex negative for DVT CRP improved with treatment of cellulitis -consulted ID. Obtained CT of lower legs - no abscess. Antibiotics broadened to cefepime to cover pseudomonas - significant improvement with cefepime -venous stasis disease -blood cultures from admission finalized negative significant bilateral improvement after change to cefepime on 06/25. Discussed with ID - cipro not an option because of elevated QTC (reviewed new EKG - qtc apx 520). Recommended seven days of cefepime (through . Continuing on cefepime with recommendation for antibiotics changed based upon SBP evaluation at [facility] diuresed last 24h with IV bumex -, continue rhonda, metolazone held, usually tiw. (2) 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: Patient with liver cirrhosis secondary to MASH, ascites requiring frequent paracenteses, diuretic management with Bumex/Spironolactone/Metolazone, ruptured umbilical hernia, hepatic encephalopathy on Rifaximin and Lactulose. She is following at [facility] and is slated for liver transplant on 07/05/24. Bilirubin and INR are within recent baseline -diuretics -ascites - had US 06/24, 06/28 no ascites to tap - per Dr Brown's discussion with her greenhouse transplanter - no paracentesis for one week prior to transplant (none after today) to avoid hypovolemia -continue lactulose and rifaximin for chronic hepatic encephalopathy, controlled -continue Betadine bid and PRN for ruptured umbilical hernia. No current ascites. No evidence of peritonitis - no abdominal pain or tenderness on exam -Isolation precautions - patient reports being told to maintain isolation if possible given her upcoming transplant MELD labs in AM - CMP and INR, requested nurse navigator to fax to her greenhouse transplanter at [facility] ([place] [phone], fax [phone]) (3) Hypokalemia: continue or replacement (4) Anemia: Chronic, at baseline Usually gets iron infusions and missed last one Iron studies 06/27 reviewed and normal. Would not infuse IV iron this week. Will get blood products transfusion with liver transplant. Plan mild fungal rash upper abdomen - ketoconazole. had course ketoconazole that she just completed - organisms may be - rash still visible probably from capillary leak but not raised. 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 Patient was recently admitted to [facility] from 06/02 - 06/06/24 after presenting with cellulitis of the RLE. She was treated with Ceftriaxone with rapid improvement and discharged home on Cefdinir. She returns today with warmth, redness and swelling of her LLE. She also has a rash present on her left leg. Patient is scheduled for a liver transplant at [facility] on 07/05/24. She has an appointment at the hospital on 07/02/24 for pre-admission testing social service coordinator Opal [phone], fax [phone], physician med call line [phone] Discharge Exam Patient is awake and alert bowel sounds are present slight distention and dullness rebound tenderness Nontoxic-appearing Cardiopulmonary exam is unremarkable Discharge Plan Discharge Items Patient Disposition: Transfer Acute Care Hospital Reason For Visit: CELLULITIS RLE Discharge Diagnosis: possible SBP low leg skin infection liver cirrhosis and ascites Activity: Resume your previous activity Non-emergency contact: Primary Care Provider Call non-emergency contact if: your symptoms worsen Follow-up/Referrals: Roland Timmons PA-C [Primary Care Provider] - Diet: Low Sodium (2gm) Addtl Attending Provider Instructions: GOOD LUCRivera Díaza we are rooting for a speedy recovery ! Pending Studies at Discharge: No Stand-Alone Forms: [employer], Smoking Cessation Skilled Items Patient informed of condition?: Yes DNR: No Discharge Level of Care: Other Communicable Disease: No Discharge Prognosis: Stable Lines: Peripheral IV Urinary Catheter: No Medications and DC Order Prescriptions: Continued Ubrelvy 50 mg tablet 50 mg PO .COMPLEX PRN (Reason: headache) Qty: 10 6RF Rx Instructions: 50mg prn migraine, may repeat after two hours prn valacyclovir 500 mg Tablet 500 mg PO Q8 PRN (Reason: .BREAKOUTS) triamcinolone acetonide 0.1 % Cream 1 applic EXT TID PRN (Reason: dry, itchy skin on legs/abdominal wall) Qty: 15 0RF Combivent Respimat 20-100 mcg/actuation Mist 1 puff INHALATION QID PRN (Reason: cough/wheeze/shortness of breath) Qty: 1 0RF Rx Instructions: space evenly during waking hours clobetasol 0.05 % solution 1 applic TOPICAL BID PRN (Reason: for scalp) [id number] 50-325-40 mg tablet 2 tab PO Q6 MDD 8 tablets PRN (Reason: Pain) promethazine [Promethegan] 25 mg suppository 25 mg AL UD PRN (Reason: Nausea) famotidine 40 mg tablet 40 mg PO QAM omeprazole 40 mg Capsule,Delayed Release(Dr/Ec) 40 mg PO BID prochlorperazine maleate [Compazine] 5 mg tablet 5 mg PO QID PRN (Reason: Nausea) venlafaxine [Effexor XR] 150 mg capsule,extended release 24hr 150 mg PO DAILY Qty: 30 1RF Rx Instructions: Take 150mg w/ 75mg to equal 225mg by mouth once daily. venlafaxine [Effexor XR] 75 mg capsule,extended release 24hr 75 mg PO DAILY Qty: 30 1RF Rx Instructions: Take 75mg w/ 150mg to equal 225mg by mouth once daily. diclofenac sodium [Voltaren Arthritis Pain] 1 % Gel 4 g EXT QID PRN (Reason: right shoulder pain) Qty: 1 0RF Rx Instructions: purchase [id number]-mny-dpmyrif. bumetanide 1 mg tablet 3 mg PO BID Qty: 180 0RF Rx Instructions: take each morning upon awakening and then again in the afternoon. cholecalciferol (vitamin D3) 25 mcg (1,000 unit) Tablet,Chewable 25 mcg PO QAM calcium carbonate-simethicone 400-40 mg Tablet,Chewable 1 tab PO TIDM alprazolam 1 mg tablet 1 mg PO BID PRN (Reason: Anxiety) sertraline 100 mg tablet 100 mg PO QAM Rx Instructions: takes with 50 mg tablet for total of 150mg daily sertraline 50 mg tablet 50 mg PO QAM Rx Instructions: takes with 100 mg tablet for a total daily dose of 150 mg Tirosint-Marisa 200 mcg/mL solution 300 mcg PO QAM (DME) OneTouch Verio test strips Strip See Rx Instructions .Route Qty: 100 1RF Rx Instructions: Check blood sugars 1x/day. (DME) lancets [Microlet Lancet] Misc See Rx Instructions .Route Qty: 100 1RF Rx Instructions: Check blood sugars 1x/day. potassium chloride 20 mEq Packet 40 meq PO BID Qty: 120 1RF tizanidine 4 mg tablet 2 mg PO Q6H PRN (Reason: muscle spasms) Linzess 290 mcg Capsule 290 mcg PO QAM Hold Instructions: please hold unless Dr Calvert or Dr Stanley ask you to resume it spironolactone 100 mg tablet 100 mg PO BID Xifaxan 550 mg Tablet 550 mg PO BID Qty: 1 0RF lactulose 10 gram/15 mL (15 mL) Solution 30 g PO TID Qty: 1440 0RF Rx Instructions: take twice or three times daily for at least 3 bowel movements each day pramipexole 0.5 mg tablet 0.5 mg PO QID metolazone 2.5 mg tablet 2.5 mg PO DIRECTED Rx Instructions: taking three times a week. ...depends on paracentesis schedule--usually SATURDAYS/FRIDAY/THURSDAYS Ozempic 1 mg/dose (4 mg/3 mL) pen injector 1 mg SUBCUT WK Rx Instructions: wednesdays magnesium oxide 400 mg magnesium tablet 400 mg PO QPM gabapentin 600 mg tablet 600 mg PO TID PRN (Reason: nerve pain) Held sumatriptan succinate 50 mg tablet 50 mg PO UD PRN (Reason: Migraine Headache) Hold Instructions: Provider's Order Rx Instructions: Pt 1-2 tabs po prn for migraine and if migraine continues one hour later pt takes 1 more tab by mouth. Discharge Orders: Discharge Order (Routine); Ordered 07/01/24 Ordered By: Everton Figueroa Admission Data Admit Date/Time: 06/22/24 21:28 Attending Provider: Everton Figueroa Admit Provider: Christal Metcalf Primary Care Provider: Roland Timmons Other Providers: Christal Metcalf; [place]; Nerissa Artis; Natty Cummins; Carol Bustos; Sher Costa; Nicole Holloway; Phuong Griffin Hospital Stay Data Consultations 06/22/24 20:48 ED Decision to Admit Stat 06/24/24 10:09 Consult Infectious Diseases Routine Diagnostic Imagining Performed 06/22/24 18:41 US venous doppler LE LT Stat 06/24/24 10:13 US abdomen ltd ascites Routine 06/25/24 10:59 CT leg [CT tib/fib LT w con] Urgent CT leg [CT tib/fib RT w con] Urgent 06/28/24 07:55 US abdomen ltd ascites Routine Pending Results Patient Have Any Pending Studies at Discharge: No Discharge Instructions Given to Patient (Per Discharging Provider) CHRISTOPHER Scherer we are rooting for a speedy recovery ! Total Time Total Time Spent Total Time Spent (In Minutes): It required greater than 30 minutes to prepare this patient for discharge. Coding Level of Care Code 09055 INP/OBS DISCH >30 MIN Diagnoses Cellulitis of left leg L03.116 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 Hypokalemia E87.6 Anemia D64.9 Anemia type: unspecified type
[2024-07-01] MEDS: HYDROmorphone INJ 0.5 MG/0.5 ML SYR IV PRN (16:13)
== END 2024-07-01 16:48 | disposition short-term general hospital (02) | DRG 603 ==
LOC: ED 18:27 → SUATTDRO 21:28 → 3W 21:28

== ENCOUNTER 2024-10-07 18:33 | Inpatient (IN) ==
[2024-10-07 19:39] LABS: Albumin Globulin Ratio 1.2 (0.9-2); Albumin Level 3.5 gm/dl (3.4-5.0); BUN Creatinine Ratio 19.1 (10-20); Bilirubin,Total 1.5 mg/dl (0.2-1.0); Calcium 7.9 mg/dl (8.6-10.3); Creatinine Clr Calc Pharmacy 20.3 ml/min; Magnesium 1.8 mg/dl (1.7-2.4); Potassium 3.9 mmol/L (3.5-5.1); Total Protein 6.5 gm/dl (6.0-8.3)
[2024-10-07 19:45] LABS: Troponin I High Sensitivity 13.3 pg/ml (0-14)
--- NOTE | 2024-10-07 19:46 | Emergency Department Note ---
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 Not Detected (NotDetected) Entero/Rhino (PCR) Not Detected (NotDetected) Administered Medications Sodium Chloride (Nss) 500 mls @ 125 mls/hr IV .Q4H CHERYLE Stop: 10/08/24 02:38 Last Infusion: 10/08/24 00:28 Dose: 125 mls/hr Documented By: Admin: 10/07/24 23:47 Dose: 80 mls/hr Documented By: LOTTIE Piperacillin Sod/Tazobactam Sod (Zosyn) 4.5 gm in 100 mls @ 25 mls/hr IV Q8H CHERYLE; Protocol Stop: 10/09/24 22:44 Last Admin: 10/08/24 01:47 Dose: 25 mls/hr Documented By: LOTTIE Norepinephrine Bitartrate (Levophed/D5w) 4 mg in 250 mls @ 17.456 mls/hr IV .[id number] CHERYLE; Protocol Stop: 11/07/24 01:14 Last Titration: 10/08/24 01:28 Dose: 0.05 mcg/kg/min, 17.5 mls/hr Documented By: LOTTIE Co-signed By: SUE Titration: 10/08/24 01:16 Dose: 0.07 mcg/kg/min, 24.4 mls/hr Documented By: Co-signed By: NILSA Admin: 10/08/24 01:11 Dose: 0.05 mcg/kg/min, 17.5 mls/hr Documented By: Co-signed By: NILSA Discontinued Medications Sodium Chloride (Nss) 2,000 mls @ 999 mls/hr IV .Q2H1M ONE Stop: 10/07/24 21:43 Last Infusion: 10/07/24 23:14 Dose: Infused Documented By: Admin: 10/07/24 19:59 Dose: 999 mls/hr Documented By: MITZI Piperacillin Sod/Tazobactam Sod (Zosyn) 4.5 gm in 100 mls @ 200 mls/hr IV NOW ONE; Protocol Stop: 10/07/24 21:02 Last Infusion: 10/07/24 23:14 Dose: Infused Documented By: Admin: 10/07/24 21:23 Dose: 200 mls/hr Documented By: MITZI Vancomycin HCl 1,750 mg/ (Sodium Chloride) 535 mls @ 200 mls/hr IV NOW ONE Stop: 10/08/24 01:17 Last Admin: 10/07/24 23:43 Dose: 200 mls/hr Documented By: LOTTIE Sodium Chloride (Nss) 1,000 mls @ 999 mls/hr IV .Q1H1M ONE Stop: 10/08/24 01:13 Last Infusion: 10/08/24 01:23 Dose: Infused Documented By: Admin: 10/08/24 00:32 Dose: 999 mls/hr Documented By: LOTTIE Norepinephrine Bitartrate (Norepinephrine/D5w 4 Mg/250 Ml) Confirm Administered Dose 4 mg IV .STK-MED ONE Stop: 10/08/24 01:06 Last Admin: 10/08/24 01:10 Dose: Not Given Documented By: Imaging Data Radiologist's Impression: Abdomen/Pelvis CT 10/07/24 20:33 Exam(s): CT ABDOMEN + PELVIS Without Contrast EXAM: CT Abdomen and Pelvis Without Intravenous Contrast CLINICAL HISTORY: Reason for exam: recent liver transplant; sepsis. TECHNIQUE: Axial computed tomography images of the abdomen and pelvis without intravenous contrast. CTDI is 28 mGy and DLP is 1494 mGy-cm. Automated exposure control was utilized for the study. A dose lowering technique was utilized adhering to the principles of ALARA. COMPARISON: CT abdomen and pelvis 02/16/24 FINDINGS: Patient is status post liver transplant. There is a [id number]-[id number] collection within the central liver measuring 5 cm. Catheter extends from this collection through the common bile duct and into the distal duodenum. Gallbladder is absent. There is no biliary dilatation. Spleen is enlarged measuring 17.5 cm craniocaudal. Pancreas and adrenal glands are unremarkable. Kidneys demonstrate persistent nephrogram suggesting recent contrast- enhanced procedure. Aorta is normal in caliber. Small retroperitoneal lymph nodes are noted. There is no free air or significant free fluid. Patient is status post sleeve gastrectomy. There is no evidence of mechanical bowel obstruction. There is no bowel mucosal thickening. Appendix is normal. Urinary bladder is incompletely distended. There is contrast within the bladder. Uterus is absent. There is generalized anasarca. Small fat-containing umbilical hernia is noted. There is a midline laparotomy scar in the abdominal wall. There are no acute osseous findings. IMPRESSION: 1. Status post liver transplant. Jfhqn-evb-eye collection in the central liver measuring 5 cm, potentially abscess in the setting of sepsis. Catheter extends from this collection through the common bile duct and into the distal duodenum. 2. Splenomegaly. Electronically signed by: Jemima Altamirano M.D. 10/07/24 22:46 PM Discharge Plan Visit Data Chief Complaint: Fever Stated Complaint: FEVER, TRANSPLANT PT, FLUID IN THE STENT IN LIVER ED Provider: Nighat Best Discharge Problem: Sepsis, Liver abscess, transplanted liver, JOANNA (acute kidney injury), Elevated procalcitonin, Elevated lactic acid level, Transaminitis, Acute UTI (urinary tract infection), Thrombocytopenia Forms Stand Alone Forms: [facility] Prescriptions Prescriptions: No Action acetaminophen [Tylenol Extra Strength] 500 mg tablet 500 mg PO Q6H PRN senna 8.6 mg capsule 17.2 mg PO DAILY aspirin 81 mg tablet,chewable 81 mg PO DAILY ondansetron HCl 4 mg tablet 4 mg PO Q8H PRN mycophenolate mofetil [CellCept] 250 mg capsule 500 mg PO BID sulfamethoxazole-trimethoprim [Bactrim DS] 800-160 mg tablet 1 tab PO .M/W/ losartan 25 mg tablet 25 mg PO DAILY bisacodyl [Dulcolax (bisacodyl)] 5 mg tablet,delayed release (DR/EC) 5 mg PO DAILY cyclosporine 100 mg capsule 100 mg PO BID Ubrelvy 50 mg tablet 50 mg PO .COMPLEX PRN (Reason: headache) Qty: 10 6RF Rx Instructions: 50mg prn migraine, may repeat after two hours prn sumatriptan succinate 50 mg tablet 50 mg PO UD PRN (Reason: Migraine Headache) Hold Instructions: Provider's Order Rx Instructions: Pt 1-2 tabs po prn for migraine and if migraine continues one hour later pt takes 1 more tab by mouth. valacyclovir 500 mg Tablet 500 mg PO Q8 PRN (Reason: .BREAKOUTS) triamcinolone acetonide 0.1 % Cream 1 applic EXT TID PRN (Reason: dry, itchy skin on legs/abdominal wall) Qty: 15 0RF Combivent Respimat 20-100 mcg/actuation Mist 1 puff INHALATION QID PRN (Reason: cough/wheeze/shortness of breath) Qty: 1 0RF Rx Instructions: space evenly during waking hours clobetasol 0.05 % solution 1 applic TOPICAL BID PRN (Reason: for scalp) promethazine [Promethegan] 25 mg suppository 25 mg OR UD PRN (Reason: Nausea) famotidine 40 mg tablet 40 mg PO QAM omeprazole 40 mg Capsule,Delayed Release(Dr/Ec) 40 mg PO BID prochlorperazine maleate [Compazine] 5 mg tablet 5 mg PO QID PRN (Reason: Nausea) venlafaxine [Effexor XR] 150 mg capsule,extended release 24hr 150 mg PO DAILY Qty: 30 1RF Rx Instructions: Take 150mg w/ 75mg to equal 225mg by mouth once daily. venlafaxine [Effexor XR] 75 mg capsule,extended release 24hr 75 mg PO DAILY Qty: 30 1RF Rx Instructions: Take 75mg w/ 150mg to equal 225mg by mouth once daily. diclofenac sodium [Voltaren Arthritis Pain] 1 % Gel 4 g EXT QID PRN (Reason: right shoulder pain) Qty: 1 0RF Rx Instructions: purchase [id number]. bumetanide 1 mg tablet 3 mg PO BID Qty: 180 0RF Rx Instructions: take each morning upon awakening and then again in the afternoon. alprazolam 1 mg tablet 1 mg PO BID PRN (Reason: Anxiety) sertraline 50 mg tablet 50 mg PO QAM Rx Instructions: takes with 100 mg tablet for a total daily dose of 150 mg Tirosint-Marisa 200 mcg/mL solution 300 mcg PO QAM (DME) OneTouch Verio test strips Strip See Rx Instructions .Route Qty: 100 1RF Rx Instructions: Check blood sugars 1x/day. (DME) lancets [Microlet Lancet] Misc See Rx Instructions .Route Qty: 100 1RF Rx Instructions: Check blood sugars 1x/day. potassium chloride 20 mEq Packet 40 meq PO BID Qty: 120 1RF sertraline 100 mg tablet 50 mg PO QAM Rx Instructions: takes with 50 mg tablet for total of 150mg daily tizanidine 4 mg tablet 2 mg PO Q6H PRN (Reason: muscle spasms) pramipexole 0.5 mg tablet 0.5 mg PO QID gabapentin 600 mg tablet 600 mg PO TID PRN (Reason: nerve pain) Ozempic 1 mg/dose (4 mg/3 mL) pen injector 0.25 mg SUBCUT WK Rx Instructions: wednesdays Referrals Referrals: Roland Timmons PA-C [Primary Care Provider] -
[2024-10-07 19:51] LABS: INR 1.3 (0.9-1.1); Partial Thromboplastin Ratio 1.1; Partial Thromboplastin Time 30 Seconds (21-31); Prothrombin Time 13.7 Seconds (9.0-12.0)
[2024-10-07] MEDS: SODIUM CHLORIDE 0.9% 2,000 ML IV ONE (19:59)
[2024-10-07 20:07] LABS: Basophils # (auto) 0.04 K/uL (0.00-0.20); Basophils % (auto) 0.5 %; Dohle Bodies 1+; Eosinophils # (auto) 0.02 K/uL (0.00-0.50); Eosinophils % (auto) 0.2 %; Immature Granulocytes # (auto) 0.04 K/uL (0.01-0.20); Immature Granulocytes % (auto) 0.5 %; Lymphocytes # (auto) 0.25 K/uL (1.20-3.40); Lymphocytes % (auto) 2.9 %; Mean Corpuscular Hemoglobin 22.4 pg (25.0-34.0); Mean Corpuscular Volume 74.8 fL (80.0-100.0); Monocytes # (auto) 0.39 K/uL (0.11-0.59); Monocytes % (auto) 4.6 %; Neutrophils % (auto) 91.3 %; Platelet Count 100 K/uL (130-400); Polychromasia 1+; RDW Coefficient of Variation 19.9 % (11.5-14.5); RDW Standard Deviation 52.8 fL (36.4-46.3); Red Blood Count 4.01 M/uL (4.20-5.40); White Blood Count 8.54 K/ul (4.8-10.8)
[2024-10-07] MEDS: PIPERACILLIN/TAZOBACTAM 4.5 GM/100 ML BAG IV ONE (21:23)
[2024-10-07 21:51] LABS: Appearance Urine Cloudy (Clear); Bacteria Urine Automated None Seen (None Seen); Bilirubin Urine 1+ (Negative); Blood Urine 2+ (Negative); Color Urine Dark Yellow; Glucose Urine UA Negative (Negative); Ketones Urine Negative (Negative); Leukocyte Esterase Urine 2+ (Negative); Nitrite Urine Positive (Negative); Protein Urine Trace (Negative); Specific Gravity Urine 1.024 (1.000-1.030); Urobilinogen Urine Negative (Negative); WBC Urine Automated >50 /hpf (0-5)
[2024-10-07] MEDS ORDERED: VANCOMYCIN CONSULT ACTIVE PRN (22:37)
--- NOTE | 2024-10-07 22:47 | CT Scan Report ---
Exam(s): CT ABDOMEN + PELVIS Without Contrast EXAM: CT Abdomen and Pelvis Without Intravenous Contrast CLINICAL HISTORY: Reason for exam: recent liver transplant; sepsis. TECHNIQUE: Axial computed tomography images of the abdomen and pelvis without intravenous contrast. CTDI is 28 mGy and DLP is 1494 mGy-cm. Automated exposure control was utilized for the study. A dose lowering technique was utilized adhering to the principles of ALARA. COMPARISON: CT abdomen and pelvis 02/16/24 FINDINGS: Patient is status post liver transplant. There is a abxtk-rug-iwa collection within the central liver measuring 5 cm. Catheter extends from this collection through the common bile duct and into the distal duodenum. Gallbladder is absent. There is no biliary dilatation. Spleen is enlarged measuring 17.5 cm craniocaudal. Pancreas and adrenal glands are unremarkable. Kidneys demonstrate persistent nephrogram suggesting recent contrast- enhanced procedure. Aorta is normal in caliber. Small retroperitoneal lymph nodes are noted. There is no free air or significant free fluid. Patient is status post sleeve gastrectomy. There is no evidence of mechanical bowel obstruction. There is no bowel mucosal thickening. Appendix is normal. Urinary bladder is incompletely distended. There is contrast within the bladder. Uterus is absent. There is generalized anasarca. Small fat-containing umbilical hernia is noted. There is a midline laparotomy scar in the abdominal wall. There are no acute osseous findings. IMPRESSION: 1. Status post liver transplant. Tblhf-kep-ycg collection in the central liver measuring 5 cm, potentially abscess in the setting of sepsis. Catheter extends from this collection through the common bile duct and into the distal duodenum. 2. Splenomegaly. Electronically signed by: Jemima Altamirano M.D. 10/07/24 22:46 PM
[2024-10-07] MEDS: VANCOMYCIN HCL 1,750 MG in SODIUM CHLORIDE 0.9% 500 ML IV ONE (23:43)
[2024-10-07] MEDS: SODIUM CHLORIDE 0.9% 500 ML IV SCH (23:47)
[2024-10-07 23:59] LABS: Adenovirus PCR Not Detected (NotDetected); Bordetella parapertussis PCR Not Detected (NotDetected); Bordetella pertussis PCR Not Detected (NotDetected); Chlamydia pneumoniae PCR Not Detected (NotDetected); Coronavirus 229E PCR Not Detected (NotDetected); Coronavirus CoV-2 (COVID19)PCR Not Detected (NotDetected); Coronavirus HKU1 PCR Not Detected (NotDetected); Coronavirus NL63 PCR Not Detected (NotDetected); Coronavirus OC43PCR Not Detected (NotDetected); Human Metapneumovirus PCR Not Detected (NotDetected); Influenza A PCR Not Detected (NotDetected); Influenza B PCR Not Detected (NotDetected); Mycoplasma pneumoniae PCR Not Detected (NotDetected); Parainfluenza Virus 1 PCR Not Detected (NotDetected); Parainfluenza Virus 2 PCR Not Detected (NotDetected); Parainfluenza Virus 3 PCR Not Detected (NotDetected); Parainfluenza Virus 4 PCR Not Detected (NotDetected); Respiratory Syncytial VirusPCR Not Detected (NotDetected); Rhinovirus/Enterovirus PCR Not Detected (NotDetected)
[2024-10-08] MEDS: SODIUM CHLORIDE 0.9% 1,000 ML IV ONE (00:32)
[2024-10-08] MEDS: NOREPINEPHRINE/D5W 4 MG/250 ML IV ONE (01:10)
[2024-10-08] MEDS: NOREPINEPHRINE/D5W 4 MG/250 ML PLCT IV SCH (01:11)
[2024-10-08] MEDS: PIPERACILLIN/TAZOBACTAM 4.5 GM/100 ML BAG IV SCH (01:47)
--- NOTE | 2024-10-08 02:21 | History & Physical Report ---
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
--- NOTE | 2024-10-08 02:43 | Critical Care Consultation ---
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 Confirmed 09/24/24] sennosides 8.6 mg capsule (senna) 17.2 mg PO DAILY 09/14/24 [History Confirmed 09/24/24] sertraline 100 mg tablet 50 mg PO QAM 09/14/24 [History Confirmed 09/24/24] sulfamethoxazole 800 mg-trimethoprim 160 mg tablet (Bactrim DS) 1 tab PO .M/W/F 09/14/24 [History Confirmed 09/24/24] bisacodyl 5 mg tablet,delayed release (Dulcolax (bisacodyl)) 5 mg PO DAILY 09/24/24 [History Confirmed 09/24/24] cyclosporine 100 mg capsule 100 mg PO BID 09/24/24 [History Confirmed 09/24/24] losartan 25 mg tablet 25 mg PO DAILY 09/24/24 [History Confirmed 09/24/24] Active Medications Albuterol (Albut/Ipratrop 3mg/0.5mg Neb 3 Ml Vial) 3 ml NEB Q2H PRN; Protocol PRN Reason: dyspnea Stop: 11/07/24 02:56 Albuterol (Albuterol Hfa 8 Gm Inhaler (Combivent Respimat P&T Subs)) 1 puffs INH QIDR PRN; Protocol PRN Reason: Shortness Of Breath Stop: 11/07/24 03:08 Cyclosporine (Cyclosporine 100 Mg Cap) 100 mg PO BID CHERYLE Stop: 11/07/24 08:59 Dextrose (Dextrose 50% 50 Ml Syringe) 25 - 50 ml IV UD PRN; Protocol PRN Reason: Hypoglycemia Protocol Stop: 11/07/24 02:56 Glucagon (Glucagon For Inj 1 Mg Vial) 1 mg SQ UD PRN; Protocol PRN Reason: Hypoglycemia Protocol Stop: 11/07/24 02:56 Glucose (Glucose 40% Gel 15 Gm Tube) 15 - 30 gm PO UD PRN; Protocol PRN Reason: Hypoglycemia Protocol Stop: 11/07/24 02:56 Glucose (Glucose 10 Tab/Tube) 4 - 8 tab PO UD PRN; Protocol PRN Reason: Hypoglycemia Protocol Stop: 11/07/24 02:56 Piperacillin Sod/Tazobactam Sod (Zosyn) 4.5 gm in 100 mls @ 25 mls/hr IV Q8H [facility]; Protocol Stop: 10/09/24 22:44 Last Admin: 10/08/24 01:47 Dose: 25 mls/hr Norepinephrine Bitartrate (Levophed/D5w) 4 mg in 250 mls @ 17.456 mls/hr IV .[id number] [facility]; Protocol Stop: 11/07/24 01:14 Last Titration: 10/08/24 01:28 Dose: 0.05 mcg/kg/min, 17.5 mls/hr Pantoprazole Sodium (Protonix) 40 mg in 10 mls @ 5 mls/min IV BID [facility] Stop: 11/07/24 08:59 Ipratropium [place] (Ipratropium Hfa Inhaler (Combivent Respimat P&T Subs)) 1 puffs INH QIDR PRN; Protocol PRN Reason: Shortness Of Breath Stop: 11/07/24 03:08 Levothyroxine Sodium (Levothyroxine Sodium 100 Mcg Tablet) 300 mcg PO DAILYBB [facility] Stop: 11/07/24 06:29 Miscellaneous (Icu Protocol For Hyperglycemia) 1 each N/A ACHS [facility] Stop: 10/10/24 07:29 Miscellaneous (Carbohydrates For Hypoglycemia ) 15 - 30 gm PO UD PRN PRN Reason: Hypoglycemia Protocol Stop: 11/07/24 02:56 Miscellaneous (Icu Electrolyte Replacement Protocol) 1 each N/A BID@06,18 CHERYLE; Protocol Stop: 10/15/24 05:59 Miscellaneous Information (Vancomycin Consult Active) 1 each N/A UD PRN PRN Reason: Consult Stop: 11/06/24 22:36 Mycophenolate Mofetil (Mycophenolate Mofetil 250 Mg Cap) 500 mg PO BID [facility] Stop: 11/07/24 08:59 Ondansetron HCl (Ondansetron Inj 2 Mg/Ml 2 Ml Vial) 4 mg IV Q6H PRN PRN Reason: NAUSEA/VOMITING Stop: 11/07/24 02:56 Coding Level of Care Code 74310 CRITICAL CARE 1ST 30-74M Diagnoses Septic shock A41.9; R65.21 Liver abscess, 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
[2024-10-08] MEDS ORDERED: GLUCOSE 10 TAB/TUBE PO PRN (02:57)
[2024-10-08] MEDS ORDERED: DEXTROSE 50% 50 ML SYRINGE IV PRN (02:57)
[2024-10-08] MEDS ORDERED: ALBUT/IPRATROP 3MG/0.5MG NEB 3 ML VIAL NEB PRN (02:57)
[2024-10-08] MEDS ORDERED: GLUCOSE 40% GEL 15 GM TUBE PO PRN (02:57)
[2024-10-08] MEDS ORDERED: CARBOHYDRATES FOR HYPOGLYCEMIA PO PRN (02:57)
[2024-10-08] MEDS ORDERED: GLUCAGON FOR INJ 1 MG VIAL SQ PRN (02:57)
[2024-10-08] MEDS ORDERED: IPRATROPIUM BROMIDE/ALBUTEROL respimat INH INH PRN (02:57)
[2024-10-08] MEDS ORDERED: ONDANSETRON INJ 2 MG/ML 2 ML VIAL IV PRN (02:57)
--- OUTSIDE RECORDS SUMMARY | 2024-10-08 03:00 | External Medical Summary | Summary of Care ---
Author Name Unknown Organization [facility] [address] [facility] [place] [address] Phone [phone] Care Team Providers Care Event Host Name Role Phone Roland Timmons MD Primary Care Provider Unavailabl e Reason for Visit * Reason Comments IV Therapy Venofer 08/28 Encounter Details Date Type Department Care Team (Latest Contact Info) Description 09/24/2024 10:45 AM EST Hem/Onc Treatment Hematology/Oncology Treatment, [place] [address] [place] [address] Michelle, Chair [address] Hem On[address] [place] [address] Iron deficiency anemia, unspecified iron deficiency anemia type*; RLS (restless legs syndrome) Allergies Active Allergy Reactions Criticality Noted Date Comments Codeine Hives 07/18/2012 Metformin Abdominal pain Low 03/30/2013 Ondansetron 06/02/2024 documented as of this encounter (statuses as of 10/02/2024) Medications ONETOUCH ULTRASOFT LANCETS MISCIndications:Typ e II or [...] suspected opioid overdose. Seek immediate medical attention. [email or web address] Prochlorperazine Maleate 5 MG Oral Tablet [...] (5000 UT) Oral Tablet Take by mouth. Activ e Enoxaparin Sodium 100 MG/ML Injection Solution Prefilled Syringe Inject 100 mg under the skin in the morning. Active Omeprazole 40 MG Oral Capsule Delayed Release (PriLOSEC) Take 1 Capsule by mouth in the morning and 1 Capsule before bedtime. Active Klor-Con 20 MEQ Oral Packet Take [...] morning and 1 Tablet before bedtime. Active Hkeoymrlcf-PCDN-Gww feine 50-325-40 MG Oral Tablet (Fioricet) TAKE 2 TABLETS BY MOUTH EVERY 6 HOURS IF NEEDED FOR PAIN - MAX DAILY DOSE OF 8 TABS 07/14/20 23 Active Doxycycline Monohydrate 100 MG Oral Tablet [...] the morning. 90 Tablet 10/03/19 24 Active Spironolactone 100 MG Oral Tablet (Aldactone)Indicati [...] weekly. 100 mL 52 12/10/19 24 Active Pramipexole Dihydrochloride 0.5 MG Oral Tablet Take 1 Tablet by mouth in the morning and 1 Tablet at noon and 1 Tablet before bedtime. Active Clobetasol Propionate 0.05 % External Solution apply to the scalp 1-2 times daily as needed 50 mL 2 03/16/20 24 Active Ozempic (0.25 or 0.5 MG/DOSE) 2 MG/1.5ML Solution Pen-injector (Semaglutide(0.25 or 0.5MG/DOS)) Inject under the skin once a week. Active Potassium Chloride 10 MEQ Oral Packet Take 20 mEq by mouth in the morning and 20 mEq before bedtime. Pt states she is currently taking 40 meq twice daily. Active Sertraline HCl 25 MG Oral Tablet (Zoloft) TAKE 1 TABLET BY MOUTH IN THE MORNING. TAKE WITH 50 MG DOSE FOR A DAILY TOTAL OF 75 MG. 90 Tablet 1 05/24/20 24 Active Bumetanide 1 MG Oral Tablet (Bumex)Indications: 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) Take 3 Tablets by mouth in the morning and 3 Tablets before bedtime. 180 Tablet 1 07/09/20 24 Active documented as of this encounter (statuses as of 10/02/2024) Active Problems Problem Noted Date Diagnosed Date RLS (restless legs syndrome) 04/21/2024 Recurrent major depressive disorder, in partial remission 05/14/2017 Iron deficiency anemia 11/15/2015 Bariatric surgery status 08/10/2015 Liver cirrhosis 08/10/2015 GILLESPIE (nonalcoholic steatohepatitis) 08/10/2015 Type 2 diabetes mellitus wit h hemoglobin A1c goal of less than 8.0% 12/23/2014 Overview (12/21/2015): ICD-10 update of inactive term Dyslipidemia, goal LDL below 100 01/29/2012 BMI 35-39 ISOLATED (SEE ACTUAL BMI) 02/05/2010 Overview (02/05/2010): Per Obesity Protocol, #19 Adult Acne 09/23/2008 Major depressive disorder 07/20/2008 Overview (06/17/2017): ICD-10 update of inactive term Headache 12/16/2007 Overview (11/15/2015): ICD-10 update of inactive term Malignant neoplasm of thyroid gland 10/15/2007 Overview (10/17/2007): 8 mm microfocus of Papillary Cancer--R lobe Adult Acne 10/22/2006 Esophageal reflux Postsurgical hypothyroidism documented as of this encounter (statuses as of 10/02/2024) Resolved Problems Problem Noted Date Diagnosed Date Resolved Date Type 2 diabetes mellitus wit h hemoglobin A1c goal of less than 7.0% 12/16/2013 12/23/2014 Overview (12/19/2015): ICD-10 update of inactive term Dysmenorrhea 09/08/2008 05/14/2017 Hypocalcemia 10/16/2007 05/14/2017 Thyrotoxicosis without menti on of goiter or other cause, without mention of thyrotoxic crisis or storm 06/26/2007 05/14/2017 BREECH PRESENT-ANTEPART 10/30/200512/24 CORD ENTANG NEC-ANTEPAR 10/30/200512/24 Other constipation 09/13/2005 ADVANCE DIRECTIVE INFORMATION 08/06/2005 06/28/2024 Overview (08/06/2005): No, Advance Directive brochure given to patient at prior appointment. Hyperthyroidism 05/21/2005 05/14/2017 Overview (09/13/2005): diag with preg 2004, off PTU since 06/29 Supervision of other high-risk 05/21/2005 01/13/2006 Overview (11/28/2015): 1st del at 34 wks, arrived 6 cm poss clot umbilical vein 2001 elev BP in labor 2003 ICD-10 update of inactive term Encounter for supervision of other normal 04/15/2005 01/13/2006 Overview (12/26/2015): closely spaced pregs: 03/26 PTD at 32w, 08/28 39w ICD-10 update of inactive term Absence of menstruation 04/15/200504/26 Dysplasia of cervix (uteri) 04/24/2004 05/14/2017 Overview (11/28/2015): LG 9/05, Leep 5/04 and 12/06 ICD-10 update of inactive term Headache 10/01/2003 05/21/2005 Overview (11/15/2015): ICD-10 update of inactive term GALACTORRHEA-ANTEPARTUM 03/25/200203/26 Other viral warts 03/25/2002 04/15/2005 Overview (05/26/2017): ICD-10 update of inactive term Other viral warts 03/25/2002 05/21/2005 Overview (05/26/2017): ICD-10 update of inactive term Abnormal findings on screening 03/24/2002 04/15/2005 Menstruation, irregular 09/25 Anemia 05/21/2005 PRESCRIP-ORAL CONTRACEPT Normal , first 03/25 documented as of this encounter (statuses as of 10/02/2024) Immunizations Name Administration Dates Next Due COVID-19, MRNA-LNP, PF, 50 M CG/0.5 mL, 12 YRS AND ABOVE, IM (MODERNA-Spikevax) [...] years and over) Not on file 02/10/2024 Comments No Sex and Gender Information Value Date Recorded Sex Assigned at Not on file Legal Sex Female 5:54 AM EST Gender Identity Not on file Sexual Orientation Not on file 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 Answer Date of Assessment Author Yes 09/01/2023 9:41 AM EST documented as of this encounter Nursing Notes * Bonnie Victoria RN - 09/24/2024 4:12 PM EST Approximately 45 minutes into Venofer infusion, pt complained of pain/tenderness medial to IV insertion site. No signs of infiltration noted. Pump stopped. PIV flushed to assess patency; flushed easily with positive blood return. Pt requested to removed IV. New PIV established in R metacarpal; Venofer infusion resumed. Pt completed treatment without further issues. IV removed. Goals: Pt will remain free from injury. Possible barriers to meeting goals: ambulation with IV pole Stability of the patient: Moderately stable - low risk of patient condition declining or worsening Summary regarding today's goals: Met: . Pt remained free from injury during treatment today. Discharged in stable condition. . * Bonnie Victoria RN - 09/24/2024 11:25 AM EST Chair 12, Venofer 08/28. Pt has no acute concerns to report today. Pt has previously received monoferric IV and stated she tolerated it well. PIV established; Venofer infusing. Safety and Risk for Injury Patient will remain free from injury. Ensure appropriate safety devices are available. Provide and maintain safe environment. Patient instructed on use of heat and massage functions where applicable. Patient shown how to operate the heat function of the chair and to alert nursing staff if the chair feels too warm. Patient instructed on the risk of potential paul while using the heat function. documented in this encounter Plan of Treatment Upcoming Encounters Date Type Department Care Team (Late st Contact Info) Description 10/08/2024 11:00 AM EST Hem/Onc Treatment Hematology/Oncology Treatment, [address] [place] [phone] Michelle, Chair 11 Hem Onc Sc[address] [facility] [place] [place] [address] 10/15/2024 10:45 AM EST Hem/Onc Treatment Hematology/Oncology Treatment, [place] [address] [place] [phone] Park, Chair 7 Hem Onc Scenery [address] [facility] [place], [place] [address] 10/27/2024 1:00 PM EST Office Visit Dermatology [facility] [address] [place] [phone] Saran Knutson PA-C [address] [place] [address] 07/14/2025 8:20 AM EST Office Visit Dermatology [facility] [address] [place] [phone] Saran Knutson PA-C [address] [place] [address] Health Maintenance Due Date Last Done Comments Diabetic Eye Exam 1998 Hepatitis B Vaccine (1 of 3 - 19+ 3-dose series) 12/09/1999 HPV/Co-Test 2010 Cervical Cancer Screening 09/08/2011 Pap Smear 09/08/2011 09/08/2008, 07/25, 01/13/2006, Additional history exists Albumin/Creatinine Ratio 11/25/2015 11/24/2014, 02/2013 Depression Monitoring 10/15/2017 10/15/2016 Diabetic Foot Exam 05/14/2018 05/14/2017, 0 11/15/2015, 12/23/2014 DTap/Tdap Vaccines (2 - Td or Tdap) 05/18/2019 05/18/2009 Mammogram 2020 COVID-19 Vaccine ( season) 2024 11/05/2023, 07/02/2022, 01/23/2022, Additional history exists Influenza Vaccine (FLU shot) (#1) 2024 05/21/2023, 05/09/2023, 07/04/2020, Additional history exists TSH 09/01/2024 09/01/2023, 04/26, 12/19/2016, Additional history exists HbA1c 01/16/2025 07/19/2024, 03/2024, 01/03/2023, Additional history exists B-12 07/26/2025 07/26/2024, 08/19/2018 GFR 09/28/2025 09/28/2024, 08/26, 09/15/2024, Additional history exists Lipid Panel 10/23/2028 10/24/2023, 03/2024, 03/05/2017, Additional history exists Pneumococcal Vaccine: Pediatrics (0 to 5 Years) and At-Risk Patients (6 to 18 Years and 19+ Years) Completed 06/04/2022, 07/04/2020 HPV (Gardasil) Vaccine [...] legs syndrome (RLS) documented in this encounter Administered Medications Inactive Administered Medications - up to 3 most recent administrations Medication Order MAR Action Action Date Dose Rate Site Iron Sucrose (Venofer) 300 mg in NSS 250 mL ivpb 300 mg, IV Piggyback, ONCE, 1 dose, On Fri09/24/24 at 1245, Administer over 90 MinutesIndications:Iron deficiency anemia, unspecified iron deficiency anemia type,RLS (restless legs syndrome) Restarted 09/24/2024 11:50 AM EST 180 mL/hr Start Infusion 09/24/2024 11:04 AM EST 300 mg 180 mL/h r NSS infusion 500 mL, Intravenous, at 50 mL/hr, CONTINUOUS, Starting on Fri09/24/24 at 1215, Until Fri09/24/24 at 2023Indications:Iron deficiency anemia, unspecified iron deficiency anemia type,RLS (restless legs syndrome) Start Infusion 09/24/2024 11:02 AM EST 500 mL 50 mL/hr documented in this encounter Advance Directives * Full Code (Latest Code Status on File) Date Activated Date Inactivated Comments 10/15/2007 5:16 PM 10/17/2007 5:01 PM Care Teams Event Host Relationship Specialty Start Date End Date Roland Timmons MD PCP - General Internal Medicine 09/16/24 documented as of this encounter
--- OUTSIDE RECORDS SUMMARY | 2024-10-08 03:01 | External Medical Summary | Summary of Care ---
Author Name Unknown Organization [facility] Address [address] [facility] [address] Phone [phone] Care Team Providers Care Filling Room Operator Name Role Phone Roland Timmons MD Primary Care Provider Unavailabl e Reason for Visit * Reason Comments Infusion Venofer / Encounter Details Date Type Department Care Team (Latest Contact Info) Description 09/28/2024 2:30 PM EST Hem/Onc Treatment Hematology/Oncology Treatment, [place] [address] [place] [address] Michelle, Chair 10 Hem Onc [address] [place] [address] Iron deficiency anemia, unspecified iron deficiency anemia type*; RLS (restless legs syndrome) Allergies Active Allergy Reactions Criticality Noted Date Comments Codeine Hives 07/18/2012 Metformin Abdominal pain Low 03/30/2013 Ondansetron 06/02/2024 documented as of this encounter (statuses as of 09/29/2024) Medications ONETOUCH ULTRASOFT LANCETS MISCIndications:Typ e II [...] sores 4 Tab 11 05/03/20 16 Active Additional Information Patient not taking.Reported on 09/28/2024 Venlafaxine HCl ER 150 MG Oral Capsule Extended Release 24 Hour Take 1 Capsule by mouth in the morning. Do not cut, crush, or chew.. 30 Cap 5 01/14/20 18 Active LINZESS 290 MCG Capsule TAKE 1 CAPSULE BY MOUTH DAILY 90 Cap 3 03/04/20 18 Active Additional Information Patient not taking.Reported on 09/28/2024 lactulose (CONSTULOSE) 10 GM/15ML solutionIndications :GILLESPIE (nonalcoholic steatohepatitis),Bi liary cirrhosis (HCC) Take 30 ml by mouth three times a day 2700 mL 5 04/01/20 18 Active Additional Information Patient not taking.Reported on 09/28/2024 linagliptin (TRADJENTA) 5 MG Tablet Take 1 [...] suspected opioid overdose. Seek immediate medical attention. [email or web address] Active Prochlorperazine Maleate 5 MG Oral Tablet [...] morning and 1 Tablet before bedtime. Active Mavzoewweg-BYYF-Tsk feine 50-325-40 MG Oral Tablet (Fioricet) TAKE [...] the morning. 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 Answer Date of Assessment Author Yes 09/01/2023 9:41 AM EST documented as of this encounter Nursing Notes * Amena Canseco LPN - 09/28/2024 4:15 PM EST 1610: Pt tolerated Venofer infusion well. PIV removed intact. Pt to return in one week. Discharged in stable condition. * Amena Canseco LPN - 09/28/2024 2:43 PM EST 1430: Pt arrived for Venofer 2/4 infusion. PIV in RFA. Pt tolerated well. VSS- see flowsheet. Pt has no complaints at this time. Patient instructed on use of heat and [...] 11:00 AM EST Hem/Onc Treatment [facility], [place] [address] [facility] [phone] Michelle Chair 11 Hem Onc [facility] [address] [facility] [address] 10/15/2024 10:45 AM EST Hem/Onc Treatment Hematology/Oncology Treatment, [place] [address] [facility] [place] [phone] Park, Chair 7 Hem Onc [address] [place], [place] [address] 07/14/2025 8:20 AM EST Office Visit Dermatology [facility] [address] [place] [address] Saran Knutson PA-C [address] [place], [place] [phone] Health Maintenance Due Date Last Done Comments [...] 12/19/2016, Additional history exists HbA1c 01/16/2025 07/19/2024, 0 03/2024, 01/03/2023, Additional history exists B-12 07/26/2025 07/26/2024, 08/19/2018 GFR 09/20/2025 09/28/2024, 08/26, 09/15/2024, Additional history exists Lipid [...] mg, IV Piggyback, ONCE, 1 dose, On Fri09/28/24 at 1530, Administer over 90 MinutesIndications:Iron deficiency anemia, unspecified iron deficiency anemia type,RLS (restless legs syndrome) Start Infusion 09/28/2024 2:30 PM EST 300 mg 180 mL/hr NSS infusion 500 mL, Intravenous, at 50 mL/hr, CONTINUOUS, Starting on Fri09/28/24 at 1500, Until Fri09/28/24 at 2018Indications:Iron deficiency anemia, unspecified iron deficiency anemia type,RLS (restless legs syndrome) Start Infusion 09/28/2024 2:30 PM EST 500 mL 50 mL/hr documented in this encounter Advance Directives * Full Code (Latest Code Status on File) Date Activated Date Inactivated Comments 10/15/2007 5:16 PM 10/17/2007 5:01 PM Care Teams Filling Room Operator Relationship Specialty Start Date End Date Roland Timmons MD PCP - General Internal Medicine 09/16/24 documented as of this encounter
--- OUTSIDE RECORDS SUMMARY | 2024-10-08 03:01 | External Medical Summary | Summary of Care ---
Author Name Unknown Organization [facility] Address [address] [place] [address] Phone [phone] Care Team Providers Care Affiliate Marketing Specialist Name Role Phone Roland Timmons MD Primary Care Provider Unavailabl e Encounter Details Date Type Department Care Team (Latest Contact Info) Description 09/28/2024 Orders Only Laboratory, [address] [facility] [place] [address] Lyndon Mercado MD [address] [place], [place] [phone] Status post liver transplantation (HCC)*; Long-term use of immunosuppressant medication; Immunocompromised, acquired (HCC) Allergies Active Allergy Reactions Criticality Noted Date Comments Codeine Hives 07/18/2012 Metformin Abdominal pain Low 03/30/2013 Ondansetron 06/02/2024 documented as of this encounter (statuses as of 09/28/2024) Medications ONETOUCH ULTRASOFT LANCETS MISCIndications:Typ e II [...] suspected opioid overdose. Seek immediate medical attention. [email or web address]/[email or web address]?[email or web address] Active Prochlorperazine Maleate 5 MG Oral Tablet [...] morning and 1 Tablet before bedtime. 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 Answer Date of Assessment Author Yes 09/01/2023 9:41 AM EST documented as of this encounter Plan of Treatment Upcoming Encounters Date Type Department Care Team (Late st Contact Info) Description 10/08/2024 11:00 AM EST Hem/Onc Treatment [facility]emat[facility] [place] [facility] [phone] Michelle, Chair 11 Hem Onc Scen[address] [facility] [place] [address] 10/15/2024 10:45 AM EST Hem/Onc Treatment Hematology/Oncology Treatment, [place] [facility] [phone] Michelle, Chair 7 Hem Onc Scenery 200 [facility] [place] [address] 07/14/2025 8:20 AM EST Office Visit Dermatology [address] [phone] Saran Knutson PA-C [address] [place] [phone] Pending Results Name Type Priority Associated Diagnoses Date /Time CYTOMEGALOVIRUS DNA, QUANTITATIVE REAL-TIME PCR Lab Routine Status post liver transplantation (HCC) Long-term use of immunosuppressant medication Immunocompromised, acquired (HCC) 09/28/2024 11:18 AM EST Scheduled Orders Name Type Priority Associated Diagnoses Orde r Schedule CYTOMEGALOVIRUS DNA, QUANTITATIVE REAL-TIME PCR Lab Routine Status post liver transplantation (HCC) Long-term use of immunosuppressant medication Immunocompromised, acquired (HCC) Every Week for 26 Occurrences starting 09/28/2024 until 08/16/2025 Health Maintenance Due Date Last Done Comments [...] exists B-12 07/26/2025 07/26/2024, 08/19/2018 GFR 09/20/2025 09/20/2024, 08/26, 08/30/2024, Additional history exists Lipid Panel 10/23/2028 10/24/2023, 0 03/2024, 03/05/2017, Additional history exists Pneumococcal Vaccine: [...] as of this encounter Visit Diagnoses Diagnosis Status post liver transplantation (HCC)- Primary Liver replaced by transplant Long-term use of immunosuppressant medication Encounter for long-term (current) use of other medications Immunocompromised, acquired (HCC) Unspecified immunity deficiency documented in this encounter Advance Directives * Full Code (Latest Code Status on File) Date Activated Date Inactivated Comments 10/15/2007 5:16 PM 10/17/2007 5:01 PM Care Teams Affiliate Marketing Specialist Relationship Specialty Start Date End Date Roland Timmons MD PCP - General Internal Medicine 09/16/24 documented as of this encounter
--- OUTSIDE RECORDS SUMMARY | 2024-10-08 03:01 | External Medical Summary | Summary of Care ---
Author Name Unknown Organization [facility] Address [address] [facility] [address] Phone [phone] Care Team Providers Care Healthcare Liaison Name Role Phone Roland Timmons MD Primary Care Provider Unavailabl e Encounter Details Date Type Department Care Team ([facility] Contact Info) Description 09/29/2024 [address]phone [address] [phone] Saran Knutson PA-C [address] [place] [phone] Allergies Active Allergy Reactions Criticality Noted [...] the evening. Goal BM=3-4 times daily. 02/15/20 Active Ondansetron HCl 8 MG Oral Tablet [...] suspected opioid overdose. Seek immediate medical attention. [email or web address]?[email or web address] Active Prochlorperazine Maleate 5 MG Oral Tablet [...] morning and 1 Tablet before bedtime. Active Azeamhyeud-TDTW-Mgy feine 50-325-40 MG Oral Tablet (Fioricet) TAKE [...] bedtime. 180 Tablet 1 07/09/20 24 Active Senna 8.6 MG Oral Capsule Take by mouth. 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 Answer Date of Assessment Author Yes 09/01/2023 9:41 AM EST documented as of this encounter Miscellaneous Notes * Telephone Encounter - Salome Cortés OSA - 09/29/2024 2:01 PM EST Spoke with patient and for now she is scheduled with you for 10/27. She is going to talk to her and if they want [place] she will kvng me back and I will get her in sooner. When responding, please reply to the [facility] [place] Pool [[id number]]. Thanks! CHIVO Mckeon * Telephone Encounter - Saran Knutson PA-C - 09/29/2024 12:53 PM EST Received message from patient that she would like her legs evaluated for non- healing wounds. Tried to schedule appointment with Wound Care but notes they would like her to see Dermatology first. documented in this encounter Plan of Treatment Upcoming Encounters Date Type Department Care Team (Late st Contact Info) Description 10/08/2024 11:00 AM EST Hem/Onc Treatment [facility]ematology/[address], [address] [phone] Michelle, Chair 11 Hem Onc [facility] [place] [address] 10/15/2024 10:45 AM EST Hem/Onc Treatment Hematology/Oncology Treatment, [address] [place] [phone] Michelle, Chair 7 Hem Onc [facility] [address] [place] [address] [place] [address] 10/27/2024 1:00 PM EST Office Visit Dermatology [facility] [address] [facility] [place] [phone] Saran Knutson PA-C [address] [place], [place] [address] [place] [address] 07/14/2025 8:20 AM EST Office Visit Dermatology [facility] [address] [facility] [place] [phone] Saran Knutson PA-C [address] [facility] [place] [address] Health Maintenance Due Date Last Done Comments [...] 5:16 PM 10/17/2007 5:01 PM Care Teams Healthcare Liaison Relationship Specialty Start Date End Date Roland Timmons MD PCP - General Internal Medicine 09/16/24 documented as of this encounter
--- OUTSIDE RECORDS SUMMARY | 2024-10-08 03:01 | External Medical Summary | Summary of Care ---
Author Name Unknown Organization [facility] Address [address] [facility] [place] [address] Phone [phone] Care Team Providers Care Millwright Helper Name Role Phone Roland Timmons MD Primary Care Provider Unavailabl e Reason for Visit * Reason Comments Outpatient Testing Encounter Details Date Type Department Care Team (Late st Contact Info) Description 09/28/2024 11:00 AM EST Laboratory [facility] [place] [facility] [address] [place] [address] [place], Laboratory [address] [place] [address] Status post liver transplantation (HCC); Long-term use of immunosuppressant medication; Immunocompromised, acquired [...] suspected opioid overdose. Seek immediate medical attention. [email or web address]?[email or web address] Active Prochlorperazine Maleate 5 MG Oral Tablet [...] morning and 1 Tablet before bedtime. 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 Not on file [...] 11:00 AM EST Hem/Onc Treatment Hematology/Oncology Treatment, [place] [facility] [phone] Michelle, Chair 11 Hem Onc Scenery [address] [facility] [place] [address] 10/15/2024 10:45 AM EST Hem/Onc Treatment Hematology/Oncology Treatment, [place] [address] [facility] [phone] Michelle, Chair 7 Hem Onc [facility] 200 [facility] [place] [address] 07/14/2025 8:20 AM EST Office Visit Dermatology [facility] [address] [place] [phone] Saran Knutson PA-C [address] [place], [place] [phone] Pending Results Name Type Priority Associated Diagnoses Date /Time CBC WITH WBC DIFFERENTIAL Lab Routine Status post liver transplantation (HCC) Long-term use of immunosuppressant medication Immunocompromised, acquired (HCC) 09/28/2024 11:18 AM EST COMPREHENSIVE METABOLIC PANEL Lab Routine Status post liver transplantation (HCC) Long-term use of immunosuppressant medication Immunocompromised, acquired (HCC) 09/28/2024 11:18 AM EST CYCLOSPORINE A TROUGH, LC/MS/MS, BLOOD Lab Routine Status post liver transplantation (HCC) Long-term use of immunosuppressant medication Immunocompromised, acquired (HCC) 09/28/2024 11:18 AM EST GGTP Lab Routine Status post liver transplantation (HCC) Long-term use of immunosuppressant medication Immunocompromised, acquired (HCC) 09/28/2024 11:18 AM EST PT INR Lab Routine Status post liver transplantation (HCC) Long-term use of immunosuppressant medication Immunocompromised, acquired (HCC) 09/28/2024 11:18 AM EST MAGNESIUM Lab Routine Status post liver transplantation (HCC) Long-term use of immunosuppressant medication Immunocompromised, acquired (HCC) 09/28/2024 11:18 AM EST PHOSPHORUS Lab Routine Status post liver transplantation (HCC) Long-term use of immunosuppressant medication Immunocompromised, acquired (HCC) 09/28/2024 11:18 AM EST CYTOMEGALOVIRUS DNA, QUANTITATIVE REAL-TIME PCR Lab Routine Status post liver transplantation (HCC) Long-term use of immunosuppressant medication Immunocompromised, acquired (HCC) 09/28/2024 11:18 AM EST CBC Lab Routine Status post liver transplantation (HCC) Long-term use of immunosuppressant medication Immunocompromised, acquired (HCC) 09/28/2024 11:18 AM EST DIFFERENTIAL, AUTOMATED Lab Routine Status post liver transplantation (HCC) Long-term use of immunosuppressant medication Immunocompromised, acquired (HCC) 09/28/2024 11:18 AM EST Health Maintenance Due Date Last [...] Visit Diagnoses Diagnosis Status post liver transplantation (HCC) Liver replaced by transplant Long-term use of immunosuppressant medication Encounter for long-term (current) use of other medications Immunocompromised, acquired (HCC) Unspecified immunity deficiency documented in this encounter Advance Directives * Full Code (Latest Code Status on File) Date Activated Date Inactivated Comments 10/15/2007 5:16 PM 10/17/2007 5:01 PM Care Teams Millwright Helper Relationship Specialty Start Date End Date Roland Timmons MD PCP - General Internal Medicine 09/16/24 documented as of this encounter
--- OUTSIDE RECORDS SUMMARY | 2024-10-08 03:01 | External Medical Summary | Summary of Care ---
Author Name Unknown Organization [facility] Address [address] [facility] [address] Phone [phone] Care Team Providers Care Qc Scientist Name Role Phone Roland Timmons MD Primary Care Provider Unavailabl e Encounter Details Date Type Department Care Team ([facility] Contact Info) Description 09/29/[address] [phone] Saran Knutson PA-C [address] [place] [address] Allergies Active Allergy Reactions Criticality Noted [...] suspected opioid overdose. Seek immediate medical attention. [email or web address]?v= [email or web address] Active Prochlorperazine Maleate 5 MG Oral Tablet [...] morning and 1 Tablet before bedtime. 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 When responding, please reply to the Derm[facility] [place] Pool [[id number]]. Thanks! CHIVO Mckeon * Telephone Encounter - [...] 11:00 AM EST Hem/Onc Treatment Hematology/[address]cology [address], [address] [phone] Michelle, Chair 11 Hem Onc [facility] [place] [address] 10/15/2024 10:45 AM EST Hem/Onc Treatment Hematology/Oncology Treatment, [address] [place] [phone] Michelle, Chair 7 Hem Onc [facility] [address] [place] [address] [place] [address] 10/27/2024 1:00 PM EST Office Visit Dermatology [facility] 68 [facility] [place] [phone] Saran Knutson PA-C [address] [place], [place] [address] [place] [address] 07/14/2025 8:20 AM EST Office Visit Dermatology [facility] 68 [facility] [place] [phone] Saran Knutson PA-C [facility] [place] [address] Health Maintenance Due Date Last Done Comments [...] 5:16 PM 10/17/2007 5:01 PM Care Teams Qc Scientist Relationship Specialty Start Date End Date Roland Timmons MD PCP - General Internal Medicine 09/16/24 documented as of this encounter
--- OUTSIDE RECORDS SUMMARY | 2024-10-08 03:01 | External Medical Summary | Summary of Care ---
Author Name Unknown Organization [facility] Address [address] [facility] [place] [address] Phone [phone] Care Team Providers Care Cutter Wet Machine Name Role Phone Roland Timmons MD Primary Care Provider Unavailabl e Reason for Visit * Reason Comments Outpatient Testing Encounter Details Date Type Department Care Team (Late st Contact Info) Description 09/28/2024 11:00 AM EST Laboratory [facility], [place] [facility] [address] [place] [address] [place], Laboratory [address] [place] [address] Status post liver transplantation (HCC); Long-term use [...] suspected opioid overdose. Seek immediate medical attention. [email or web address]?v= [email or web address] Active Prochlorperazine Maleate 5 MG Oral Tablet [...] morning and 1 Tablet before bedtime. 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 file [...] 11:00 AM EST Hem/Onc Treatment Hematology/[facility]cology Treatment, [place] [address] [facility] [phone] Michelle, Chair 11 Hem Onc Scenery 200 [facility] [place] [address] 10/15/2024 10:45 AM EST Hem/Onc Treatment Hematology/Oncology Treatment, [place] [address] [facility] [phone] Michelle, Chair 7 Hem Onc [facility] 200 [facility] [place] [address] 07/14/2025 8:20 AM EST Office Visit Dermatology [facility] 68 [place] [phone] Saran Knutson PA-C 68 [place], [place] [phone] Pending Results Name Type Priority Associated Diagnoses [...] 5:16 PM 10/17/2007 5:01 PM Care Teams Cutter Wet Machine Relationship Specialty Start Date End Date Roland Timmons MD PCP - General Internal Medicine 09/16/24 documented as of this encounter
--- OUTSIDE RECORDS SUMMARY | 2024-10-08 03:01 | External Medical Summary | Summary of Care ---
Author Name Unknown Organization [facility] Address [address] [facility] [place] [address] Phone [phone] Care Team Providers Care Broadcast Producer Name Role Phone Roland Timmons MD Primary Care Provider Unavailabl e Reason for Visit * Reason Comments Follow Up Infusion iron Encounter Details Date Type Department Care Team (Late st Contact Info) Description 09/28/2024 2:00 PM EST Office Visit Hematology/Oncology [facility] [address] [facility] [place] [phone] Sandra Evans MD [address] [place] [address] Iron deficiency anemia, unspecified iron deficiency anemia type*; Other cirrhosis of liver (HCC); GILLESPIE (nonalcoholic steatohepatitis); Thrombocytopenia (HCC) Allergies Active Allergy Reactions Criticality Noted [...] suspected opioid overdose. Seek immediate medical attention. [email or web address] Active Prochlorperazine Maleate 5 MG Oral Tablet [...] morning and 20 mEq before bedtime. 06/22/20 23 Active Levothyroxine Sodium 300 MCG Oral Tablet [...] morning and 1 Tablet before bedtime. 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 Not on file Not on file Not on file Not on file Not on file documented as of this encounter Last Filed Vital Signs Vital Sign Reading Time Taken Comments Blood Pressure 116/78 09/28/2024 1:54 PM EST Pulse 100 09/28/2024 1:54 PM EST Temperature 36.2 C (97.2 F) 09/28/2024 1:54 PM ES T Respiratory Rate - - Oxygen Saturation 95% 09/28/2024 1:54 PM EST Inhaled Oxygen Concentration - - Weight 92 kg (202 lb 14.4 oz) 09/28/2024 1:54 PM EST Height - - Body Mass Index 35.07 10/02/2023 2:26 PM EST documented in this encounter Functional Status * Does this person have serious difficulty walking or climbing stairs? Answer Date of Assessment Author Yes 09/01/2023 9:41 AM EST documented as of this encounter Progress Notes * Sandra Evans MD - 09/28/2024 1:58 PM EST Outpatient Consult Note Data Source: Patient, Epic record. Data Source: Patient, Epic record. 09/28/2024 1:58 PM Niesha Gutiérrez [id number] 43 year old Patient Encounter: HEMATOLOGY/ONCOLOGY [facility] Diagnosis: Liver cirrhosis secondary to nonalcoholic steatohepatitis [...] infusion during the recent admission at [facility]. She had a CBC done yesterday [...] and finally she would biopsy done at [facility] and they told her she has liver cirrhosis. She states she has never drank alcohol before and was told this was from GILLESPIE. She denies smoking all drinking alcohol. Family history significant for mother was diagnosed skin cancer. Father was also diagnosed of livercirrhosis. He was alcoholic Interval History: Patient underwent living liver donor transplant on 07/15/2024. Patients postoperative course was complicated by AMS, significant LE edema, and recurrent LE cellulitis. Overall clinically she is feeling better and stronger with a decrease edema. She does not need paracentesis anymore. Last paracentesis was done in May 2024. Her main issue right now is the lower extremity swelling and cellulitis. Overall the swelling is also decreasing. LABS/IMAGING: Results for orders placed or performed in visit on 09/15/24 COMPREHENSIVE METABOLIC PANEL Result Value Ref Range BUN 18 6 - 20 mg/dL CREATININE 1.1 (H) 0.5 - 1.0 mg/dL EGFR 64 >=60 mL/min SODIUM 143 135 - 146 mmol/L POTASSIUM 4.0 3.5 - 5.1 mmol/L CHLORIDE 105 98 - 107 mmol/L CO2 27 22 - 32 mmol/L ANION GAP 11 7 - 15 mmol/L GLUCOSE 123 (H) 70 - 120 mg/dL Albumin 3.3 (L) 3.8 - 5.0 g/dL AST 17 10 - 35 U/L Alkaline Phosphatase 95 35 - 130 U/L Bilirubin, Total 0.3 <=1.2 mg/dL CALCIUM 8.5 8.4 - 10.2 mg/dL Protein 5.9 (L) 6.0 - 8.3 g/dL ALT 7 (L) 10 - 35 U/L FERRITIN Result Value Ref Range Ferritin 45 13 - 150 ng/mL LD Result Value Ref Range LD 166 <=250 U/L IRON SCREEN, INCLUDING TIBC Result Value Ref Range Iron 19 (L) 33 - 151 ug/dL Iron Binding Capacity 354 250 - 425 ug/dL Transferrin Saturation Percent 5 (L) 15 - 55 % RETICULOCYTE PANEL Result Value Ref Range Reticulocyte Percent 1.04 0.80 - 1.90 % Absolute Reticulocyte 30.0 (L) 31.3 - 100.1 K/uL Immature Reticuloctye Fraction 31.8 (H) 2.5 - 20.6 % Reticulocyte Hemoglobin 17.3 (L) 29.7 - 37.4 pg CYCLOSPORINE A TROUGH, LC/MS/MS, BLOOD Result Value Ref Range Cyclosporine Trough, LCMSMS 93 (L) 100 - 300 mcg/L GGTP Result Value Ref Range GGTP 66 (H) <=40 U/L PT INR Result Value Ref Range Prothrombin Time 14.0 11.6 - 15.2 seconds INR 1.1 0.8 - 1.2 MAGNESIUM Result Value Ref Range Magnesium 2.0 1.5 - 2.6 mg/dL PHOSPHORUS Result Value Ref Range Phosphorus 4.0 2.5 - 4.8 mg/dL CBC Result Value Ref Range WBC 3.24 (L) 4.00 - 10.80 K/uL RBC 2.88 3.85 - 5.15 M/uL HGB 6.7 (L) 12.0 - 15.3 g/dL HCT 24.6 (L) 36.0 - 45.2 % MCV 85.4 81.5 - 97.5 fL MCH 23.3 27.0 - 34.0 pg MCHC 27.2 32.0 - 36.0 g/dL RDW 16.0 11.5 - 15.5 % PLT 165 140 - 400 K/uL MPV 10.3 6.6 - 11.1 fL nRBCs 0 <=0 /100 WBCs DIFFERENTIAL, AUTOMATED Result Value Ref Range WBC 3.24 (L) 4.00 - 10.80 K/uL Neutrophils % 76.0 (H) 40.0 - 75.0 % Lymphocytes % 10.5 (L) 18.0 - 42.0 % Monocytes % 8.3 1.0 - 11.0 % Eosinophils % 4.3 0.0 - 6.0 % Basophils % 0.6 0.0 - 2.0 % Immature Granulocytes % 0.3 0.0 - 2.0 % Absolute Neutrophils 2.46 1.80 - 7.70 K/uL Absolute Lymphocytes 0.34 (L) 1.00 - 4.80 K/ul Absolute Monocytes 0.27 0.00 - 1.10 K/uL Absolute Eosinophils 0.14 0.00 - 0.70 K/uL Absolute Basophils 0.02 0.00 - 0.20 K/uL Absolute Immature Granulocytes 0.01 0.00 - 0.20 K/uL *Note: Due to a large number of results and/or encounters for the requested time period, some results have not been displayed. A complete set of results can be found in Results Review. Recent blood test were done on 09/20/2023 which shows creatinine of 0.82 with rest of the electrolytes and LFTs within normal range. GGT was 73, INR was 1.2 which is normal. Last CBC was done on 09/15/2024 which shows WBC count of 3.27, hemoglobin 6.7 and platelet count 165. Because of the low hemoglobin C1 sent to the ED and the repeat hemoglobin in the ED was 7.5. REVIEW OF SYSTEMS: General: No Fever, chills, night sweats HEENT: No change in visual acuity, blurred [...] Medication Sig Dispense Refill ONETOUCH ULTRASOFT LANCETS [facility] use as directed [address] TRET[place] [...] suspected opioid overdose. Seek immediate medical attention. [email or web address] (Patient not taking: Reported on 11/27/2023) Prochlorperazine [...] bedtime. (Patient not taking: Reported on 11/27/2023) Raahzbqyqh-QFDN-Iuyvmsww 50-325-40 MG Oral Tablet (Fioricet) TAKE 2 [...] TOTAL OF 75 MG. 90 Tablet 1 Bumetanide 1 MG Oral Tablet (Bumex) Take 3 Tablets by mouth in the morning and 3 Tablets before bedtime. 180 Tablet 1 No current facility-administered medications for this visit. Facility-Administered Medications Ordered in Other Visits Medication Dose Route Frequency Provider Last Rate Last Admin NSS infusion 500 mL Intravenous Continuous Keely Toscano CRNP hEParin 100 UNIT/ML Lock Flush inj 500 Units 5 mL IV Lock PRN Keely Toscano CRNP sodium chloride 0.9 % flush central line 10 mL 10 mL IV Push PRN Keely Toscano CRNP Iron Sucrose (Venofer) 300 mg in NSS 250 mL ivpb 300 mg IV Piggyback Once Keely Toscano CRNP diphenhydrAMINE (Benadryl) inj 50 mg 50 mg IV Push Once PRN Keely Toscano CRNP Hydrocortisone Sod Suc (PF) (Solu-Cortef) inj 100 mg 100 mg IV Push Once PRN Keely Toscano CRNP EPINEPHrine 1 MG/ML inj 0.3 mg 0.3 mg Intramuscular Once PRN Keely Toscano CRNP oxygen GAS Inhalation Oxygen Keely Toscano CRNP Social History Tobacco Use Smoking status: Never Smokeless tobacco: Never Vaping Use Vaping status: Never Used Substance Use Topics Alcohol use: Not Currently Comment: 3 x yr Drug use: No Review of patient's allergies indicates: Allergen Reactions Codeine Hives Zofran [Ondansetron] Metformin Abdominal pain PHYSICAL EXAMINATION: General Appearance: Healthy appearing patient in no acute distress BP 116/78 (BP Site: Left Arm, BP Position: Sitting, BP Cuff Size: Large) | Pulse 100 | Temp 36.2 C (97.2 F) (Tympanic) | Wt 92 kg (202 lb 14.4 oz) | SpO2 95% | BMI 35.07 kg/m | BSA 2.03 m Vitals reviewed. HEENT: No oral or [...] Extremeties: Good pulses bilaterally, bilateral lower extremity swelling ASSESSMENT: 43-year-old female with a complicated past [...] is not on Lovenox or any anticoagulation. Currently she is only taking aspirin. Patient underwent living liver donor transplant on 07/15/2024. Patients postoperative course was complicated by AMS, significant LE edema, and recurrent LE cellulitis. Overall clinically she is feeling better and stronger with improvement in overall lower extremity edema and decreased frequency of c ellulitis. Liver enzymes are normal and hemoglobin is stable with normal platelet counts. Currently she is receiving Venofer. Discussed with the patient in detail about the diagnosis reviewed all the available blood test result with her. Currently she is also on CellCept and cyclosporine for immunosuppression. She can continue follow her PCP and transplant team for further management. After discussion she agreed. PLAN: As above. She will continue follow her transplant team and PCP for further management. She can be referred back in case if she develops any issues or problem related to the Hematology Oncology. Thank you for the opportunity to participate in the care of this patient. The patient voiced understanding of all of [...] in this encounter Nursing Notes * Amena Awan, MED ASSIST - 09/28/2024 2:05 PM EST Patient identifed by name and birthdate Do [...] it for you? ALREADY ACTIVE Filed Vitals: 09/28/24 1354 BP: 116/78 Pulse: 100 Temp: 36.2 C (97.2 F) TempSrc: Tympanic SpO2: 95% Weight: 92 kg (202 lb 14.4 oz) Patient was instructed to not get [...] 11:00 AM EST Hem/Onc Treatment [facility] [place] [facility] [phone] Michelle, Chair [address] Hem On[address] [facility] [place] [address] 10/15/2024 10:45 AM EST Hem/Onc Treatment [facility]ematology/Oncology [facility], [place] [facility] [phone] Michelle, Chair 7 Hem Onc Scen[address] [facility] [place] [address] 07/14/2025 8:20 AM EST Office Visit Dermatology [facility] [address] [place] [phone] Saran Knutson PA-C [address] [place] [address] Health Maintenance Due Date Last Done Comments [...] anemia, unspecified iron deficiency anemia type- Primary Other cirrhosis of liver (HCC) GILLESPIE (nonalcoholic steatohepatitis) Other chronic nonalcoholic liver disease Thrombocytopenia (HCC) Thrombocytopenia, unspecified documented in this encounter Advance Directives * Full Code (Latest Code Status on File) Date Activated Date Inactivated Comments 10/15/2007 5:16 PM 10/17/2007 5:01 PM Care Teams Broadcast Producer Relationship Specialty Start Date End Date Roland Timmons MD PCP - General Internal Medicine 09/16/24 documented as of this encounter"
--- OUTSIDE RECORDS SUMMARY | 2024-10-08 03:02 | External Medical Summary ---
Author Name Unknown Address Unknown Organization K01:LABORATORY [facility] - [facility] [address] [place] [address] Laboratory Report Ordering Provider Test Date Status JUMA SYKES 09/28/2024 11:18:26 Final Observation Date Value Abnormality Reference (Units ) Status WBC, Total 09/28/2024 11:18:26 4.28 4.00-10.80 (K/uL) Final RBC 09/28/2024 11:18:26 3.79 3.85-5.15 (M/uL) Final Hemoglobin 09/28/2024 11:18:26 8.7 Below low normal 12.0-15.3 (g/dL) Final HCT 09/28/2024 11:18:26 31.5 Below low normal 36.0-45.2 (%) Final MCV 09/28/2024 11:18:26 83.1 81.5-97.5 (fL) Final MCH 09/28/2024 11:18:26 23.0 27.0-34.0 (pg) Final MCHC 09/28/2024 11:18:26 27.6 32.0-36.0 (g/dL) Final RDW 09/28/2024 11:18:26 17.6 11.5-15.5 (%) Final Platelets 09/28/2024 11:18:26 154 140-400 (K/uL) Final MPV 09/28/2024 11:18:26 10.5 6.6-11.1 (fL) Final Nucleated erythrocytes/100 leukocytes [Ratio] in Blood by Automated count 09/28/2024 11:18:26 0 <=0 (/100 WBCs) Final Performing Location LABORATORY [facility] - [address] [place] [address]
--- OUTSIDE RECORDS SUMMARY | 2024-10-08 03:02 | External Medical Summary ---
Author Name Unknown Address Unknown Organization K01:[facility] [place] [address] [place] [address] Laboratory Report Ordering Provider Test Date Status JUMA SYKES 09/28/2024 11:18:26 Final Observation Date Value Abnormality Reference (Units) Status Cytomegalovirus DNA [Presence] in Serum or Plasma by JONATHON with probe detection 09/28/2024 11:18:26 CMV DNA not detected CMV DNA not detected Final Performing Location [facility] - [address] [place] [address]
--- OUTSIDE RECORDS SUMMARY | 2024-10-08 03:02 | External Medical Summary | Summary of Care ---
Author Name Unknown Organization [facility] Address [address] [facility] [place] [address] Phone [phone] Care Team Providers Care Product Demonstrator Name Role Phone Roland Timmons MD Primary Care Provider Unavailabl e Reason for Visit * Reason Comments IV Therapy Venofer 08/28 Encounter Details Date Type Department Care Team (Latest Contact Info) Description 09/24/2024 10:45 AM EST Hem/Onc Treatment Hematology/Oncology Treatment, [place] [address] [place] [phone] Michelle, Chair [address] Hem On[address] [place] [address] Iron deficiency anemia, unspecified iron deficiency anemia type*; RLS (restless legs syndrome) Allergies Active Allergy Reactions Criticality Noted Date Comments Codeine Hives 07/18/2012 Metformin Abdominal pain Low 03/30/2013 Ondansetron 06/02/2024 documented as of this encounter (statuses as of 09/25/2024) Medications ONETOUCH ULTRASOFT LANCETS MISCIndications:Typ e II [...] suspected opioid overdose. Seek immediate medical attention. [email or web address] Active Prochlorperazine Maleate 5 MG Oral Tablet [...] morning and 1 Tablet before bedtime. 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 [place] [address] 10/08/2024 11:00 AM EST Hem/Onc Treatment [address]ematology[address], [address] [phone] Michelle, Chair [address] Hem On[address] [facility] [place] [address] 10/15/2024 10:45 AM EST Hem/Onc Treatment [address]ematology/[address], [address] [phone] Michelle, Chair 7 Hem Onc Sc[address] [facility] [place] [address] 07/14/2025 8:20 AM EST Office Visit Dermatology [facility] [address] [place] [phone] Saran Knutson PA-C [address] [place] [phone] Health Maintenance Due Date Last Done Comments [...] 5:16 PM 10/17/2007 5:01 PM Care Teams Product Demonstrator Relationship Specialty Start Date End Date Roland Timmons MD PCP - General Internal Medicine 09/16/24 documented as of this encounter
--- OUTSIDE RECORDS SUMMARY | 2024-10-08 03:02 | External Medical Summary ---
Author Name Unknown Address Unknown Organization K01:LAB[facility]ATORY [facility] - [address] [place] [address] Laboratory Report Ordering Provider Test Date Status JUMA SYKES 09/28/2024 11:18:26 Final Observation Date Value Abnormality Reference (Units ) Status GGT 09/28/2024 11:18:26 65 Above high normal <= 40 (U/L) Final Performing Location LABORATORY [facility] - [address] [place] [address]
--- OUTSIDE RECORDS SUMMARY | 2024-10-08 03:02 | External Medical Summary | Summary of Care ---
Author Name Unknown Organization [facility] Address [address] [place] [address] Phone [phone] Care Team Providers Care Plant Etiologist Name Role Phone Roland Timmons MD Primary Care Provider Unavailabl e Reason for Visit * Reason Onset Date Comments Advice 09/27/2024 Nathan Encounter Details Date Type Department Care Team (Late st Contact Info) Description 09/27/2024 Telephone Hematology/Oncology [facility] [address] [place] [phone] Services, Scheduling [address] [place] [address] Advice (Nathan) Allergies Active Allergy Reactions Criticality Noted [...] suspected opioid overdose. Seek immediate medical attention. [email or web address] Active Prochlorperazine Maleate 5 MG Oral Tablet [...] morning and 1 Tablet before bedtime. 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 * Telephone Encounter - Cassie Shelton RN - 09/27/2024 2:56 PM EST Reviewed with Dr Evans- this is ok. MyG sent to patient. Scheduling: please cancel iron infusion Friday and add patient for tomorrow after visit with Dr Evans. Dr Evans: please place alteration order "ok to give venofer early on 09/28/24" Thanks! * Telephone Encounter - Bruce Kwong OSA - 09/27/2024 2:14 PM EST Patient calling in to move her 10/01 Infusion to [facility] 09/28/24. Please call documented in this encounter Plan of Treatment Upcoming Encounters Date Type Department Care Team ([facility] st Contact Info) Description 10/08/2024 11:00 AM EST Hem/Onc Treatment [address]ematology/[address] [phone] Michelle, Chair 11 [facility] [address] [place] [address] [place] [address] 10/15/2024 10:45 AM EST Hem/Onc Treatment Hematology/Oncology [address], [address] [phone] Michelle, Chair 7 [facility]c [facility] [address] [place] [address] [place] [address] 07/14/2025 8:20 AM EST Office Visit [address] [place] [phone] Saran Knutson PA-C [address] [facility] [place] [phone] Health Maintenance Due Date Last Done Comments [...] 5:16 PM 10/17/2007 5:01 PM Care Teams Plant Etiologist Relationship Specialty Start Date End Date Roland Timmons MD PCP - General Internal Medicine 09/16/24 documented as of this encounter
--- OUTSIDE RECORDS SUMMARY | 2024-10-08 03:02 | External Medical Summary ---
Author Name Unknown Address Unknown Organization : Laboratory Report Ordering Provider Test Date Status JUMA SYKES 09/28/2024 11:18:26 Final Observation Date Value Abnormality Reference (Units ) Status Cyclosporine 09/28/2024 11:18:26 74 Below low normal 100-300 (mcg/L) Final No definitive therapeutic or toxic ranges have been
established. Optimal blood drug levels are influenced
by type of transplant, patient response, time post-
transplant, co-administration of other drugs, and drug
formulation. The following trough ranges are suggested
guidelines:
Kidney Transplantation: 100-200 mcg/L
Other Organ Transplant: 200-300 mcg/L
This test was developed and its analytical performance
characteristics have been determined by [facility] [place], [place]. It has
not been cleared or approved by the U.S. Food and Drug
Administration. This assay has been validated pursuant
to the CLIA regulations and is used for clinical
purposes.

Test Performed at:
[facility]
[address] [facility] [place] [address]
Forrest Genao M.D., Ph.D.,Director of Laboratories Performing Location
--- OUTSIDE RECORDS SUMMARY | 2024-10-08 03:02 | External Medical Summary | Summary of Care ---
Author Name Unknown Organization [facility] Address [address] [facility] [address] Phone [phone] Care Team Providers Care Business Division Chair Name Role Phone Roland Timmons MD Primary Care Provider Unavailabl e Reason for Visit * Reason Onset Date Comments Test Results Lab 09/16/2024 Encounter Details Date Type Department Care Team (Late st Contact Info) Description 09/16/2024 Telephone Hematology/Oncology [facility] [place] [address] [facility] [address] Keely Toscano CRNP 400 [facility] [place] [address] Test Results Lab Allergies Active Allergy Reactions Criticality Noted Date Comments Codeine Hives 07/18/2012 Metformin Abdominal pain Low 03/30/2013 Ondansetron 06/02/2024 documented as of this encounter (statuses as of 09/17/2024) Medications ONETOUCH ULTRASOFT LANCETS MISCIndications:Typ e II [...] suspected opioid overdose. Seek immediate medical attention. [email or web address] Active Prochlorperazine Maleate 5 MG Oral Tablet [...] morning and 1 Tablet before bedtime. Active Ygjpsrdpxu-RJBY-Moy feine 50-325-40 MG Oral Tablet (Fioricet) TAKE [...] OF 75 MG. 90 Tablet 1 05/24/20 Active Bumetanide 1 MG Oral Tablet (Bumex)Indications: 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) Take 3 Tablets by mouth in the morning and 3 Tablets before bedtime. 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 Thank you!! Under Appointment Notes: "Venofer 1/4" "Venofer 2/4" "Venofer 3/4" "Venofer 4/4" * Telephone Encounter - Ann Ball LPN - 09/17/2024 2:37 PM EST Order received for Venofer [place] plan built and routed to provider No prior authorization required * Telephone Encounter - Forrest Couch RN - 09/17/2024 2:11 PM EST Ildefonso- please see order. Thank you. * Addendum Note - Keely Toscano CRNP - 09/17/2024 1:49 PM ESTAddended by: KEELY TOSCANO on: 09/17/2024 01:49 PM Modules accepted: Orders * Telephone Encounter - Keely Toscano CRNP - 09/17/2024 1:47 PM EST Called and spoke to patient. Offered to order four doses of IV Venofer d/t signs of iron deficiencyon recent lab work. Patient agreeable. Will call and make her transplant team aware as well. Ordersplaced. Will follow up with Dr. Evans as well as already scheduled. * Telephone Encounter - Cassie Shelton RN - 09/17/2024 7:56 AM EST Patient went to ER, hgb 7.7. No transfusion given, patient discharged home. * Telephone Encounter - Forrest Couch RN - 09/16/2024 3:45 PM EST Pt called back into the clinic. She states she spoke with Transplant and they would like her to travel to [place] to have the transfusion tomorrow morning. They are asking to have 2 units transfused. Pt states she isn't driving to [place], she told them she is coming to the ER here. I advised regarding the ER process and that I would message the ER Charge Nurse to let her know of the plan and what was needed. Also advised that transfusions are typically between 2-3 hours per unit. Pt verbalized understanding and agreeable to going to the ER. TT sent to Charge Nurse @ [facility] ER. * Telephone Encounter - Cassie Shelton RN - 09/16/2024 1:37 PM EST Called patient. She notes that she is in bed as she has no energy to do anything. States that she had liver transplant 07/15 in [place], they have been adjusting her medications as her hgb has been decreasing. She is going to call her transplant team to make them aware of her results, but is agreeable to going to ED later today. TT sent to charge nurse role. * Telephone Encounter - Keely ToscanoFRANK rosario - 09/16/2024 1:22 PM EST Results for orders placed or performed in [...] Hemoglobin 17.3 (L) 29.7 - 37.4 pg GGTP Result Value Ref Range GGTP 66 [...] results can be found in Results Review. Please recommend patient present to ED d/t Hgb of 6.7. documented in this encounter Plan of Treatment Upcoming Encounters Date Type Department Care Team (Late st Contact Info) Description 09/24/2024 10:45 AM EST Hem/Onc Treatment Hematology/Oncology Treatment, [place] [address] [place] [address] Michelle, Chair 4 Hem Onc [facility] 200 [facility] [place], [place] [address] 09/28/2024 2:00 PM EST Office Visit Hematology/Oncology [facility] [place] 200 [facility] [place] [phone] Sandra Evans MD 200 [facility] [place] [address] 07/14/2025 8:20 AM EST Office Visit Dermatology [facility] [address] [place] [phone] Saran Knutson PA-C [address] [place] [address] Health Maintenance Due Date Last Done Comments [...] history exists B-12 07/26/2025 07/26/2024, 08/19/2018 GFR 09/15/2025 09/15/2024, 01/2025, 08/16/2024, Additional history exists Lipid Panel 10/23/2028 10/24/2023, [...] PM 10/17/2007 5:01 PM Care Teams Business Division Chair Relationship Specialty Start Date End Date Roland Timmons MD PCP - General Internal Medicine 09/16/24 documented as of this encounter
--- OUTSIDE RECORDS SUMMARY | 2024-10-08 03:02 | External Medical Summary ---
Author Name Unknown Address Unknown Organization K01:[facility] - [address] [place] [address] Laboratory Report Ordering Provider Test Date Status JUMA SYKES 09/28/2024 11:18:26 Final Warfarin Therapy
INR: 2 .0-3.0 conventional anticoagulation
INR: 2.5- 3.5 high intensity anticoagulation Observation Date Value Abnormality Reference (Units ) Status PT 09/28/2024 11:18:26 15.0 11.6-15.2 (seconds) Final INR 09/28/2024 11:18:26 1.2 0.8-1.2 Final Performing Location [facility] - [address] [place] [address]
--- OUTSIDE RECORDS SUMMARY | 2024-10-08 03:02 | External Medical Summary | Summary of Care ---
Author Name Unknown Organization [facility] Address [address] [place] [address] Phone [phone] Care Team Providers Care Advertising Coordinator Name Role Phone Roland Timmons MD Primary Care Provider Unavailabl e Encounter Details Date Type Department Care Team (Late st Contact Info) Description 09/27/2024 Orders Only Hematology/Oncology, [facility] [address] [place] [address] Sandra Evans MD 200 [place] [address] RLS (restless legs syndrome)*; Iron deficiency anemia, unspecified iron deficiency anemia type; Bariatric surgery status Allergies Active Allergy Reactions Criticality Noted Date [...] suspected opioid overdose. Seek immediate medical attention. [email or web address] Active Prochlorperazine Maleate 5 MG Oral Tablet [...] morning and 1 Tablet before bedtime. 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 [...] 09/28/2024 2:00 PM EST Office Visit Hematology/Oncology [facility] [place] [address] [place] [phone] Sandra Evans MD [address] [place] [address] 09/28/2024 2:30 PM EST Hem/Onc Treatment [address]emat[facility] [phone] Michelle, Chair 10 Hem Onc [address] [facility] [place] [address] 10/08/2024 11:00 AM EST Hem/Onc Treatment Hematology/[facility]cology Treatment, [place] [address] [facility] [phone] Michelle, Chair 11 Hem Onc [address] 200 [place] [address] 10/15/2024 10:45 AM EST Hem/Onc Treatment [address]ematology/[address]cology [address] [phone] Michelle, Chair 7 Hem Onc [address] 200 [facility] [place] [address] 07/14/2025 8:20 AM EST Office Visit Dermatology [facility] [address] [place] [phone] Saran Knutson PA-C [address] [place] [address] Health Maintenance Due Date Last Done Comments [...] as of this encounter Visit Diagnoses Diagnosis RLS (restless legs syndrome)- Primary Restless legs syndrome (RLS) Iron deficiency anemia, unspecified iron deficiency anemia type Bariatric surgery status documented in this encounter Advance Directives * Full Code (Latest Code Status on File) Date Activated Date Inactivated Comments 10/15/2007 5:16 PM 10/17/2007 5:01 PM Care Teams Advertising Coordinator Relationship Specialty Start Date End Date Roland Timmons MD PCP - General Internal Medicine 09/16/24 documented as of this encounter
--- OUTSIDE RECORDS SUMMARY | 2024-10-08 03:02 | External Medical Summary ---
Author Name Unknown Address Unknown Organization K01:[facility] - [address] [place] [address] Laboratory Report Ordering Provider Test Date Status JUMA SYKES 09/28/2024 11:18:26 Final Observation Date Value Abnormality Reference (Units ) Status Phosphate 09/28/2024 11:18:26 4.3 2.5-4.8 (m g/dL) Final Performing Location [facility] - [address] [place] [address]
--- OUTSIDE RECORDS SUMMARY | 2024-10-08 03:02 | External Medical Summary ---
Author Name Unknown Address Unknown Organization K01:[facility] - 100 [facility] [place] [address] Laboratory Report Ordering Provider Test Date Status JUMA SYKES 09/28/2024 11:18:26 Final Observation Date Value Abnormality Reference (Units ) Status BUN 09/28/2024 11:18:26 29 Above high normal 6-20 (mg/dL) Final Creatinine 09/28/2024 11:18:26 1.0 0.5-1.0 (mg/dL) Final Glomerular filtration rate/1.73 sq M.predicted [Volume Rate/Area] in Serum, Plasma or Blood by Creatinine-based formula (CKD-EPI) 09/28/2024 11:18:26 72 >=60 (mL/min) Final eGFR is calculated based on the CKD-EPI 2020 equation. Sodium 09/28/2024 11:18:26 140 135-146 (m mol/L) Final Potassium 09/28/2024 11:18:26 4.0 3.5-5.1 (m mol/L) Final Cl 09/28/2024 11:18:26 102 98-107 (mm ol/L) Final CO2 09/28/2024 11:18:26 29 22-32 (mmo l/L) Final Anion gap 09/28/2024 11:18:26 9 7-15 (mmol /L) Final Glucose 09/28/2024 11:18:26 82 70-120 (mg /dL) Final Albumin 09/28/2024 11:18:26 4.0 3.8-5.0 (g /dL) Final AST (Aspartate aminotransferase) 09/28/2024 11:18:26 20 10-35 (U/L) Final Alk Phos 09/28/2024 11:18:26 114 35-130 (U/ L) Final Bilirubin, Total 09/28/2024 11:18:26 0.3 <=1 .2 (mg/dL) Final Calcium 09/28/2024 11:18:26 8.7 8.4-10.2 ( mg/dL) Final Protein 09/28/2024 11:18:26 6.4 6.0-8.3 (g /dL) Final ALT (Alanine aminotransferase) 09/28/2024 11:18:26 11 10-35 (U/L) Final Performing Location [facility] - [facility] [address] [facility] [address]
--- OUTSIDE RECORDS SUMMARY | 2024-10-08 03:02 | External Medical Summary ---
Author Name Unknown Address Unknown Organization K01:[facility] - [address] [place] [address] Laboratory Report Ordering Provider Test Date Status JUMA SYKES 09/28/2024 11:18:26 Final Observation Date Value Abnormality Reference (Units ) Status Magnesium 09/28/2024 11:18:26 2.0 1.5-2.6 (m g/dL) Final Performing Location [facility] - [address] [place] [address]
--- OUTSIDE RECORDS SUMMARY | 2024-10-08 03:02 | External Medical Summary ---
Author Name Unknown Address Unknown Organization K01:[facility] - [address] [facility] [place] [address] Laboratory Report Ordering Provider Test Date Status JUMA SYKES 09/28/2024 11:18:26 Final Observation Date Value Abnormality Reference (Units ) Status SYNC LEUKOCYTES IN BLOOD BY AUTOMATED COUNT 09/28/2024 11:18:26 4.28 4.00-10.80 (K/uL) Final Segs 09/28/2024 11:18:26 66.1 40.0-75.0 (%) Final Lymphs % 09/28/2024 11:18:26 17.1 Below low normal 18.0-42.0 (%) Final Monos 09/28/2024 11:18:26 10.5 1.0-11.0 (%) Final Eosinophils 09/28/2024 11:18:26 5.1 0.0-6.0 (%) Final Basos 09/28/2024 11:18:26 0.7 0.0-2.0 (%) Final Immature Granulocyte, Percent 09/28/2024 11:18:26 0.5 0.0-2.0 (%) Final Absolute Segs 09/28/2024 11:18:26 2.83 1.80-7.70 (K/uL) Final Lymphs, absolute 09/28/2024 11:18:26 0.73 Below low normal 1.00-4.80 (K/ul) Final Monos, Abs 09/28/2024 11:18:26 0.45 0.00-1.10 (K/uL) Final Eos, Abs 09/28/2024 11:18:26 0.22 0.00-0.70 (K/uL) Final Basos, Abs 09/28/2024 11:18:26 0.03 0.00-0.20 (K/uL) Final Immature Granulocytes, Number 09/28/2024 11:18:26 0.02 0.00-0.20 (K/uL) Final Performing Location [facility] - [facility] [place] [address]
--- OUTSIDE RECORDS SUMMARY | 2024-10-08 03:02 | External Medical Summary | Summary of Care ---
Author Name Unknown Organization [facility] Address [address] [facility] [address] Phone [phone] Care Team Providers Care Hospice Fellow Name Role Phone Roland Timmons MD Primary Care Provider Unavailabl e Reason for Visit * Reason Onset Date Comments Test Results Lab 09/16/2024 Encounter Details Date Type Department Care Team (Late st Contact Info) Description 09/16/2024 Telephone Hematology/Oncology [facility] [place] [address] [facility] [address] Keely Toscano CRNP 400 [facility] [place] [address] Test Results [...] suspected opioid overdose. Seek immediate medical attention. [email or web address] Active Prochlorperazine Maleate 5 MG Oral Tablet [...] morning and 1 Tablet before bedtime. 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 They are asking to have 2 units transfused. Pt states she isn't driving to [place], she told them she is coming to the ER here. I advised regarding the ER process and that I would message the ER Charge Nurse to let her know of the plan and what was needed. Also advised that transfusions are typically between 2-3 hours per unit. Pt verbalized understanding and agreeable to going to the ER. TT sent to Charge Nurse @ [facility] ER. * Telephone Encounter - Cassie Shelton RN - 09/16/2024 1:37 PM EST Called patient. She notes that she is in bed as she has no energy to do anything. States that she had liver transplant 07/15 in [place], they have been adjusting her medications as her hgb has been decreasing. She is going to call her transplant team to make them aware of her results, but is agreeable to going to ED later today. TT sent to charge nurse role. * Telephone Encounter - Keely Toscano CRNP - 09/16/2024 1:22 PM EST Results for [...] Visit Hematology/Oncology [facility] [address] [facility] [address] Sandra Evans MD [address] [place] [address] 07/14/2025 8:20 AM EST Office Visit [address] [place] [phone] Saran Knutson PA-C [address] [place] [address] Health Maintenance Due Date Last Done Comments [...] B-12 07/26/2025 07/26/2024, 08/19/2018 GFR 09/15/2025 09/15/2024, 0 01/2025, 08/16/2024, Additional history exists Lipid Panel [...] 5:16 PM 10/17/2007 5:01 PM Care Teams Hospice Fellow Relationship Specialty Start Date End Date Roland Timmons MD PCP - General Internal Medicine 09/16/24 documented as of this encounter
--- OUTSIDE RECORDS SUMMARY | 2024-10-08 03:03 | External Medical Summary | Summary of Care ---
Author Name Unknown Organization [facility] Address [address] [facility] [address] Phone [phone] Care Team Providers Care Track Supervisor Name Role Phone Roland Timmons MD Primary Care Provider Unavailabl e Reason for Visit * Reason Onset Date Comments Test Results Lab 09/16/2024 Encounter Details Date Type Department Care Team (Late st Contact Info) Description 09/16/2024 Telephone Hematology/Oncology [facility] [place] [address] [facility] [address] Keely Toscano CRNP 400 [facility] [place] [address] Test Results Lab Allergies [...] suspected opioid overdose. Seek immediate medical attention. [email or web address] Active Prochlorperazine Maleate 5 MG Oral Tablet [...] morning and 1 Tablet before bedtime. 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 Answer Date of Assessment Author Yes 09/01/2023 9:41 AM EST documented as of this encounter Miscellaneous Notes * Addendum Note - Keely Toscano CRNP [...] they would like her to travel to [place] to have the transfusion tomorrow morning. They are asking to have 2 units transfused. Pt states she isn't driving to [place], she told them she is coming to the ER here. I advised regarding the ER process and that I would message the ER Charge Nurse to let her know of the plan and what was needed. Also advised that transfusions are typically between 2-3 hours per unit. Pt verbalized understanding and agreeable to going to the ER. TT sent to Charge Nurse @ [facility] ER. * Telephone Encounter - Cassie Shelton RN - 09/16/2024 1:37 PM EST Called patient. She notes that she is in bed as she has no energy to do anything. States that she had liver transplant 07/15 in [place], they have been adjusting her medications as [...] Upcoming Encounters Date Type Department Care Team ([facility] st Contact Info) Description 09/28/2024 2:00 PM EST Office Visit Hematology/Oncology [facility] 200 [facility] [place] [address] Sandra Evans MD 200 [facility] [place] [address] 07/14/2025 8:20 AM EST Office Visit Dermatology [facility] [address] [place] [address] Saran Knutson PA-C [address] [place] [address] Health Maintenance Due Date Last Done Comments [...] 5:16 PM 10/17/2007 5:01 PM Care Teams Track Supervisor Relationship Specialty Start Date End Date Roland Timmons MD PCP - General Internal Medicine 09/16/24 documented as of this encounter
--- OUTSIDE RECORDS SUMMARY | 2024-10-08 03:03 | External Medical Summary | Summary of Care ---
Author Name Unknown Organization [facility] Address [address] [facility] [address] Phone [phone] Care Team Providers Care Welfare Eligibility Worker Name Role Phone Roland Timmons MD Primary Care Provider Unavailabl e Reason for Visit * Reason Onset Date Comments Test Results Lab 09/16/2024 Encounter Details Date Type Department Care Team (Late st Contact Info) Description 09/16/2024 Telephone Hematology/Oncology [facility] [place] [address] [facility] [address] Keely Toscano CRNP 400 [facility] [place] [address] Test Results Lab [...] suspected opioid overdose. Seek immediate medical attention. [email or web address] Active Prochlorperazine Maleate 5 MG Oral Tablet [...] morning and 1 Tablet before bedtime. 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 They are asking to have 2 units transfused. Pt states she isn't driving to [place], she told them she is coming to the ER here. I advised regarding the ER process and that I would message the ER Charge Nurse to let her know of the plan and what was needed. Also advised that transfusions are typically between 2-3 hours per unit. Pt verbalized understanding and agreeable to going to the ER. TT sent to Charge Nurse @ [facility] ER. * Telephone Encounter - Cassie Shelton RN - 09/16/2024 1:37 PM EST Called patient. She notes that she is in bed as she has no energy to do anything. States that she had liver transplant 07/15 in [place], they have been adjusting her medications as [...] 09/28/2024 2:00 PM EST Office Visit Hematology/Oncology [facility] 200 [facility] [place] [phone] Sandra Evans MD 200 [facility] [place] [address] 07/14/2025 8:20 AM EST Office Visit Dermatology [facility] [address] [place] [phone] Saran Knutson PA-C [address] [place] [address] Health Maintenance Due Date Last Done Comments [...] B-12 07/26/2025 07/26/2024, 08/19/2018 GFR 09/15/2025 09/15/2024, /0 01/2025, 08/16/2024, Additional history exists Lipid Panel [...] 5:16 PM 10/17/2007 5:01 PM Care Teams Welfare Eligibility Worker Relationship Specialty Start Date End Date Roland Timmons MD PCP - General Internal Medicine 09/16/24 documented as of this encounter
[2024-10-08] MEDS ORDERED: Ipratropium HFA Inhaler (Combivent Respimat P&T Subs) INH PRN (03:09)
[2024-10-08] MEDS ORDERED: Albuterol HFA 8 GM Inhaler (Combivent Respimat P&T Subs) INH PRN (03:09)
[2024-10-08 03:20] LABS: Albumin Globulin Ratio 1.1 (0.9-2); Albumin Level 2.8 gm/dl (3.4-5.0); BUN Creatinine Ratio 19.4 (10-20); Bilirubin,Total 1.5 mg/dl (0.2-1.0); Calcium 7.2 mg/dl (8.6-10.3); Creatinine Clr Calc Pharmacy 21.1 ml/min; Globulin 2.6 gm/dl (2.5-4.0); Magnesium 1.4 mg/dl (1.7-2.4); Potassium 3.9 mmol/L (3.5-5.1); Total Protein 5.4 gm/dl (6.0-8.3)
[2024-10-08 03:32] LABS: INR 1.5 (0.9-1.1); Partial Thromboplastin Ratio 1.3; Partial Thromboplastin Time 34 Seconds (21-31); Prothrombin Time 15.3 Seconds (9.0-12.0)
[2024-10-08 03:35] LABS: Thyroid Stimulating Hormone 0.925 uIu/ml (0.300-4.500)
[2024-10-08 03:39] LABS: Hematocrit (blood only) 28.1 % (37.0-47.0); Hemoglobin 8.5 g/dl (12.0-16.0); Mean Corpuscular Hemoglobin 22.7 pg (25.0-34.0); Mean Corpuscular Hgb Conc 30.2 g/dL (32.0-36.0); Mean Corpuscular Volume 74.9 fL (80.0-100.0); Nucleated RBC # (auto) 0.03 K/uL (0.00-0.12); Nucleated RBC % (auto) 0.2 %; Platelet Count 68 K/uL (130-400); RDW Standard Deviation 53.5 fL (36.4-46.3); Red Blood Count 3.75 M/uL (4.20-5.40)
[2024-10-08 03:40] LABS: Basophils # (auto) 0.05 K/uL (0.00-0.20); Basophils % (auto) 0.3 %; Dohle Bodies 1+; Echinocytes 1+; Eosinophils # (auto) 0.01 K/uL (0.00-0.50); Eosinophils % (auto) 0.1 %; Immature Granulocytes % (auto) 0.7 %; Lymphocytes % (auto) 2.1 %; Monocytes # (auto) 0.93 K/uL (0.11-0.59); Monocytes % (auto) 6.4 %; Neutrophils # (auto) 13.21 K/uL (1.40-6.50); Neutrophils % (auto) 90.4 %; Platelet Estimate Decreased (Normal); Polychromasia 1+; Toxic Vacuolation 1+
[2024-10-08] MEDS ORDERED: ALPRAZolam 0.5 MG TABLET PO PRN (04:02)
[2024-10-08] MEDS: CALCIUM GLUCONATE 1,000 MG/60 ML BAG IV SCH (04:19)
[2024-10-08] MEDS: MAGNESIUM SULFATE / D5W 1 GM/100 ML BAG IV SCH (04:19)
[2024-10-08] MEDS: STAT IV Infusion **Titration per Protocol STA (04:29)
[2024-10-08] MEDS: SODIUM CHLORIDE 0.9% 1,000 ML IV SCH (04:36)
--- NOTE | 2024-10-08 06:00 | Billing Data ---
Date of Service October 08, 2024 Coding Level of Care Code 25512 CRITICAL CARE M
[2024-10-08] MEDS: LEVOTHYROXINE SODIUM 100 MCG TABLET PO SCH (06:13)
[2024-10-08 06:43] LABS: Albumin Globulin Ratio 1.1 (0.9-2); Albumin Level 2.8 gm/dl (3.4-5.0); BUN Creatinine Ratio 20.6 (10-20); Bilirubin,Total 1.5 mg/dl (0.2-1.0); Calcium 7.6 mg/dl (8.6-10.3); Creatinine Clr Calc Pharmacy 23.4 ml/min; Globulin 2.5 gm/dl (2.5-4.0); Phosphorus 5.5 mg/dl (2.5-4.9); Potassium 3.7 mmol/L (3.5-5.1); Total Protein 5.3 gm/dl (6.0-8.3)
[2024-10-08 07:15] LABS: INR 1.4 (0.9-1.1); Prothrombin Time 15.1 Seconds (9.0-12.0)
[2024-10-08 07:41] LABS: Hematocrit (blood only) 25.8 % (37.0-47.0); Hemoglobin 7.8 g/dl (12.0-16.0); Mean Corpuscular Hemoglobin 22.7 pg (25.0-34.0); Mean Corpuscular Hgb Conc 30.2 g/dL (32.0-36.0); Mean Platelet Volume 11.7 fL (9.4-12.4); Platelet Count 63 K/uL (130-400); RDW Standard Deviation 53.5 fL (36.4-46.3); Red Blood Count 3.44 M/uL (4.20-5.40); White Blood Count 17.56 K/ul (4.8-10.8)
[2024-10-08 07:43] LABS: Anisocytosis Present; Basophils # (auto) 0.08 K/uL (0.00-0.20); Basophils % (auto) 0.5 %; Dohle Bodies 1+; Eosinophils # (auto) 0.05 K/uL (0.00-0.50); Eosinophils % (auto) 0.3 %; Hypochromasia Present; Immature Granulocytes % (auto) 0.6 %; Lymphocytes # (auto) 0.39 K/uL (1.20-3.40); Lymphocytes % (auto) 2.2 %; Microcytosis Present; Monocytes % (auto) 9.1 %; Neutrophils # (auto) 15.34 K/uL (1.40-6.50); Neutrophils % (auto) 87.3 %; Ovalocytes 1+; Polychromasia 3+; Tear Drop Cells 1+
--- NOTE | 2024-10-08 07:52 | Critical Care Progress Note ---
Date of Service October 08, 2024 Assessment & Plan (1) Septic shock: (2) Liver abscess, transplanted liver: (3) ARF (acute renal failure): (4) Type 2 diabetes mellitus: (5) JUSTYN (generalized anxiety disorder): (6) Open leg wound: Plan Impression: 43 YOF presents with septic shock with likely liver abscess in transplanted liver as well as biliary stent in place. Requiring Vasopressors with end organ dysfunction. Recommendations: Neuro -slightly encephalopathic this morning. Continue to follow neurologically. Cardiac -septic shock due to liver abscess and an infected indwelling biliary drain. Lactate is gone from 3.3 down to 1.3 with fluid resuscitation. Wean n orepinephrine as tolerated. Check cortisol. For central line Respiratory -await VBG. Oxygen as needed to keep saturations at or above 90%. GI -liver transplant. Liver abscess with likely infected biliary drain. Holding immunosuppression at the recommendation of [facility] transplant. Needs stent removed with GI and drainage of the liver abscess as well as the subhepatic fluid collection. These interventions are not available at our facility. Await transfer to [facility] SICU. Liver specialist Dr. Mercado- [facility] SICU accepting Dr. Barton. AST and ALT stable to slightly decreased today with alk phos stable. INR slightly increased and albumin decreased. Recheck ammonia level and VBG RENAL/LYTES - ARF- non-oliguric, likely secondary to prerenal as well as ATN. ER discussed with nephrology. Some improvement in serum creatinine today. Continue electrolyte replacement. Follow urine output - NO acute needs ENDO -glycemic control per protocol. HEME -thrombocytopenia and anemia without evidence of acute blood loss. White blood cell count elevated today secondary to infection. ID - Septic shock- likely secondary to likely abscess in liver with biliary stent. Currently day #2 Zosyn and vancomycin. Will need infectious disease consult but will defer until she is transferred to [facility] for now LINES/IV ACCESS - Ana Laura DASILVA Continue use of these lines - central line/arterial line may be needed pending clinical course DVT PROPHYLAXIS - SCDS, Heparin 5000 units sub q q12 hours DISPO: ICU while requiring vasopressors and awaiting transfer to tertiary transplant center Patient remains critically ill with multiorgan system dysfunction. Hopefully a bed will be available today for the patient to transfer to [facility] ICU where she can receive definitive care. Will continue to support her while here but as noted above, we lack the technical ability for the procedures that she requires Admission and Anticipated Discharge Date Admission Date: October 08, 2024 Subjective Patient seen and examined. EMR reviewed. Discussed with bedside critical care nurse and on multidisciplinary rounds. The patient is slightly encephalopathic today. She is able to be oriented and does answer questions but appears somewhat confused. Baseline unknown. She is awaiting bed placement at [facility]. She denies any abdominal pain. No nausea or vomiting. No diarrhea. Review of Systems Review of Systems: Unobtainable due to reduced consciousness Physical Exam Constitutional: + lethargic; no acute distress Neck: trachea midline, no thyromegaly Respiratory: normal respiratory effort, lungs clear to auscultation Cardiovascular: RRR, no murmur, no edema Gastrointestinal (Abdomen): normal bowel sounds, soft, nontender, no hepatosplenomegaly Musculoskeletal: Extremities: extremities normal to inspection Skin: no rashes, warm and dry Neurologic: Nonfocal exam Lymphatic: no cervical lymphadenopathy Results & Data Results & Data Vital Signs (Past 12 Hours) Vital Signs Temp Pulse Pulse Resp BP BP BP 10/08/24 07:00 124/79 10/08/24 06:57 36.3 C L 77 20 10/08/24 06:45 119/73 10/08/24 06:45 36.2 C L 78 21 10/08/24 06:36 115/64 10/08/24 06:30 36.3 C L 79 21 10/08/24 06:30 80/47 L 10/08/24 06:15 86/48 L 10/08/24 06:15 86/48 L 10/08/24 06:09 36.7 C 82 19 10/08/24 06:01 89/52 L 10/08/24 05:57 36.7 C 84 22 10/08/24 05:51 36.8 C 83 20 10/08/24 05:45 129/65 10/08/24 05:45 129/65 10/08/24 05:42 36.9 C 85 21 10/08/24 05:33 37.1 C 87 21 10/08/24 05:30 125/61 10/08/24 05:30 125/61 10/08/24 05:30 125/61 10/08/24 05:30 125/61 10/08/24 05:24 37.1 C 87 28 H 02/14/25 05:15 37.2 C 90 23 10/08/24 05:00 126/71 10/08/24 05:00 126/71 10/08/24 04:51 10/08/24 04:45 121/56 L 10/08/24 04:45 121/56 L 10/08/24 04:39 37.2 C 92 H 21 10/08/24 04:33 37.2 C 93 H 27 H 10/08/24 04:30 115/53 L 10/08/24 04:30 115/53 L 10/08/24 04:24 37.1 C 93 H 22 10/08/24 04:21 37.1 C 93 H 26 H 10/08/24 04:15 112/59 L 10/08/24 04:15 112/59 L 10/08/24 04:15 112/59 L 10/08/24 04:08 37.1 C 93 H 22 141/61 H 10/08/24 04:00 95 H 25 H 10/08/24 03:53 141/61 H 10/08/24 03:30 97 H 27 H 10/08/24 03:18 98 H 33 H 10/08/24 03:15 96/66 L 10/08/24 03:15 96/66 L 10/08/24 03:06 95 H 21 10/08/24 03:00 91/49 L 10/08/24 03:00 96 H 23 10/08/24 02:57 10/08/24 02:57 91 H 10/08/24 02:45 90/61 L 10/08/24 02:45 90/61 L 10/08/24 02:45 90/61 L 10/08/24 02:45 96 H 19 10/08/24 02:38 97/57 L 10/08/24 02:38 97/57 L 10/08/24 02:38 97/57 L 10/08/24 02:38 97/57 L 10/08/24 02:30 96 H 28 H 10/08/24 02:30 74/50 L 10/08/24 02:30 74/50 L 10/08/24 02:30 74/50 L 10/08/24 02:18 96 H 33 H 10/08/24 02:15 112/75 0214/25 02:15 112/75 10/08/24 02:15 112/75 10/08/24 02:10 126/60 10/08/24 02:05 114/71 10/08/24 02:05 114/71 10/08/24 02:00 116/76 10/08/24 02:00 116/76 10/08/24 02:00 96 H 24 10/08/24 02:00 36.9 C 96 H 21 116/76 10/08/24 02:00 96 H 21 116/76 10/08/24 01:55 117/66 10/08/24 01:54 95 H 26 H 10/08/24 01:50 118/71 10/08/24 01:50 118/71 10/08/24 01:45 97 H 22 128/71 10/08/24 01:36 95 H 25 H 10/08/24 01:35 120/68 10/08/24 01:33 96 H 21 10/08/24 01:30 96 H 27 H 10/08/24 01:30 137/79 10/08/24 01:30 137/79 10/08/24 01:30 137/79 10/08/24 01:30 97 H 24 137/79 10/08/24 01:15 93 H 24 77/44 L 10/08/24 01:00 91 H 24 66/34 L 10/08/24 00:30 95 H 24 66/36 L 10/08/24 00:00 96 H 23 77/41 L 10/07/24 22:00 96 H 26 H 93/53 L 10/07/24 21:30 37.7 C H 99 H 28 H 103/65 10/07/24 21:00 100 H 23 85/51 L 10/07/24 20:30 102 H 29 H 95/51 L 10/07/24 20:09 106 H 26 H Pulse Ox Pulse Ox O2 Del Method O2 Del Method 10/08/24 07:00 10/08/24 06:57 91 10/08/24 06:45 10/08/24 06:45 94 10/08/24 06:36 10/08/24 06:30 93 10/08/24 06:30 10/08/24 06:15 10/08/24 06:15 10/08/24 06:09 93 10/08/24 06:01 10/08/24 05:57 94 10/08/24 05:51 94 10/08/24 05:45 10/08/24 05:45 10/08/24 05:42 94 10/08/24 05:33 94 10/08/24 05:30 10/08/24 05:30 10/08/24 05:30 10/08/24 05:30 10/08/24 05:24 95 10/08/24 05:15 93 10/08/24 05:00 10/08/24 05:00 10/08/24 04:51 Room Air 10/08/24 04:45 10/08/24 04:45 10/08/24 04:39 93 10/08/24 04:33 94 10/08/24 04:30 10/08/24 04:30 10/08/24 04:24 93 10/08/24 04:21 93 10/08/24 04:15 10/08/24 04:15 10/08/24 04:15 10/08/24 04:08 94 Room Air 10/08/24 04:00 93 10/08/24 03:53 10/08/24 03:30 94 10/08/24 03:18 92 10/08/24 03:15 10/08/24 03:15 10/08/24 03:06 92 10/08/24 03:00 10/08/24 03:00 94 10/08/24 02:57 92 Room Air 10/08/24 02:57 10/08/24 02:45 10/08/24 02:45 10/08/24 02:45 10/08/24 02:45 93 10/08/24 02:38 10/08/24 02:38 10/08/24 02:38 10/08/24 02:38 10/08/24 02:30 93 10/08/24 02:30 10/08/24 02:30 10/08/24 02:30 10/08/24 02:18 93 10/08/24 02:15 10/08/24 02:15 10/08/24 02:15 10/08/24 02:10 10/08/24 02:05 10/08/24 02:05 10/08/24 02:00 10/08/24 02:00 10/08/24 02:00 93 10/08/24 02:00 93 Room Air 10/08/24 02:00 93 Room Air 10/08/24 01:55 10/08/24 01:54 91 10/08/24 01:50 10/08/24 01:50 10/08/24 01:45 92 Room Air 10/08/24 01:36 90 10/08/24 01:35 10/08/24 01:33 90 10/08/24 01:30 91 10/08/24 01:30 10/08/24 01:30 10/08/24 01:30 10/08/24 01:30 91 Room Air 10/08/24 01:15 92 Room Air 10/08/24 01:00 94 Room Air 10/08/24 00:30 94 Room Air 10/08/24 00:00 92 Room Air 10/07/24 22:00 92 10/07/24 21:30 93 Room Air 10/07/24 21:00 10/07/24 20:30 10/07/24 20:09 94 Critical Care Results & Data Vital Signs (Past 12 Hours) Vital Signs Temp Pulse Pulse Resp BP BP BP 10/08/24 07:00 124/79 10/08/24 06:57 36.3 C L 77 20 10/08/24 06:45 119/73 10/08/24 06:45 36.2 C L 78 21 10/08/24 06:36 115/64 10/08/24 06:30 36.3 C L 79 21 10/08/24 06:30 80/47 L 10/08/24 06:15 86/48 L 10/08/24 06:15 86/48 L 10/08/24 06:09 36.7 C 82 19 10/08/24 06:01 89/52 L 10/08/24 05:57 36.7 C 84 22 10/08/24 05:51 36.8 C 83 20 10/08/24 05:45 129/65 10/08/24 05:45 129/65 10/08/24 05:42 36.9 C 85 21 10/08/24 05:33 37.1 C 87 21 10/08/24 05:30 125/61 10/08/24 05:30 125/61 10/08/24 05:30 125/61 10/08/24 05:30 125/61 10/08/24 05:24 37.1 C 87 28 H 10/08/24 05:15 37.2 C 90 23 10/08/24 05:00 126/71 10/08/24 05:00 126/71 10/08/24 04:51 10/08/24 04:45 121/56 L 10/08/24 04:45 121/56 L 10/08/24 04:39 37.2 C 92 H 21 10/08/24 04:33 37.2 C 93 H 27 H 10/08/24 04:30 115/53 L 10/08/24 04:30 115/53 L 10/08/24 04:24 37.1 C 93 H 22 10/08/24 04:21 37.1 C 93 H 26 H 10/08/24 04:15 112/59 L 10/08/24 04:15 112/59 L 10/08/24 04:15 112/59 L 10/08/24 04:08 37.1 C 93 H 22 141/61 H 10/08/24 04:00 95 H 25 H 10/08/24 03:53 141/61 H 10/08/24 03:30 97 H 27 H 10/08/24 03:18 98 H 33 H 10/08/24 03:15 96/66 L 10/08/24 03:15 96/66 L 10/08/24 03:06 95 H 21 10/08/24 03:00 91/49 L 10/08/24 03:00 96 H 23 10/08/24 02:57 10/08/24 02:57 91 H 10/08/24 02:45 90/61 L 10/08/24 02:45 90/61 L 10/08/24 02:45 90/61 L 10/08/24 02:45 96 H 19 10/08/24 02:38 97/57 L 10/08/24 02:38 97/57 L 10/08/24 02:38 97/57 L 10/08/24 02:38 97/57 L 10/08/24 02:30 96 H 28 H 10/08/24 02:30 74/50 L 10/08/24 02:30 74/50 L 10/08/24 02:30 74/50 L 10/08/24 02:18 96 H 33 H 10/08/24 02:15 112/75 10/08/24 02:15 112/75 10/08/24 02:15 112/75 10/08/24 02:10 126/60 10/08/24 02:05 114/71 10/08/24 02:05 114/71 10/08/24 02:00 116/76 10/08/24 02:00 116/76 10/08/24 02:00 96 H 24 10/08/24 02:00 36.9 C 96 H 21 116/76 10/08/24 02:00 96 H 21 116/76 10/08/24 01:55 117/66 10/08/24 01:54 95 H 26 H 10/08/24 01:50 118/71 10/08/24 01:50 118/71 10/08/24 01:45 97 H 22 128/71 10/08/24 01:36 95 H 25 H 10/08/24 01:35 120/68 10/08/24 01:33 96 H 21 10/08/24 01:30 96 H 27 H 10/08/24 01:30 137/79 10/08/24 01:30 137/79 10/08/24 01:30 137/79 10/08/24 01:30 97 H 24 137/79 10/08/24 01:15 93 H 24 77/44 L 10/08/24 01:00 91 H 24 66/34 L 10/08/24 00:30 95 H 24 66/36 L 10/08/24 00:00 96 H 23 77/41 L 10/07/24 22:00 96 H 26 H 93/53 L 10/07/24 21:30 37.7 C H 99 H 28 H 103/65 10/07/24 21:00 100 H 23 85/51 L 10/07/24 20:30 102 H 29 H 95/51 L 10/07/24 20:09 106 H 26 H Pulse Ox Pulse Ox O2 Del Method O2 Del Method 10/08/24 07:00 10/08/24 06:57 91 10/08/24 06:45 10/08/24 06:45 94 10/08/24 06:36 10/08/24 06:30 93 10/08/24 06:30 10/08/24 06:15 10/08/24 06:15 10/08/24 06:09 93 10/08/24 06:01 10/08/24 05:57 94 10/08/24 05:51 94 10/08/24 05:45 10/08/24 05:45 10/08/24 05:42 94 10/08/24 05:33 94 10/08/24 05:30 10/08/24 05:30 10/08/24 05:30 10/08/24 05:30 10/08/24 05:24 95 10/08/24 05:15 93 10/08/24 05:00 10/08/24 05:00 10/08/24 04:51 Room Air 10/08/24 04:45 10/08/24 04:45 10/08/24 04:39 93 10/08/24 04:33 94 10/08/24 04:30 10/08/24 04:30 10/08/24 04:24 93 10/08/24 04:21 93 10/08/24 04:15 10/08/24 04:15 10/08/24 04:15 10/08/24 04:08 94 Room Air 10/08/24 04:00 93 10/08/24 03:53 10/08/24 03:30 94 10/08/24 03:18 92 10/08/24 03:15 10/08/24 03:15 10/08/24 03:06 92 10/08/24 03:00 10/08/24 03:00 94 10/08/24 02:57 92 Room Air 10/08/24 02:57 10/08/24 02:45 10/08/24 02:45 10/08/24 02:45 10/08/24 02:45 93 10/08/24 02:38 10/08/24 02:38 10/08/24 02:38 10/08/24 02:38 10/08/24 02:30 93 10/08/24 02:30 10/08/24 02:30 10/08/24 02:30 10/08/24 02:18 93 10/08/24 02:15 10/08/24 02:15 10/08/24 02:15 10/08/24 02:10 10/08/24 02:05 10/08/24 02:05 10/08/24 02:00 10/08/24 02:00 10/08/24 02:00 93 10/08/24 02:00 93 Room Air 10/08/24 02:00 93 Room Air 10/08/24 01:55 10/08/24 01:54 91 10/08/24 01:50 10/08/24 01:50 10/08/24 01:45 92 Room Air 10/08/24 01:36 90 10/08/24 01:35 10/08/24 01:33 90 10/08/24 01:30 91 10/08/24 01:30 10/08/24 01:30 10/08/24 01:30 10/08/24 01:30 91 Room Air 10/08/24 01:15 92 Room Air 10/08/24 01:00 94 Room Air 10/08/24 00:30 94 Room Air 10/08/24 00:00 92 Room Air 10/07/24 22:00 92 10/07/24 21:30 93 Room Air 10/07/24 21:00 10/07/24 20:30 10/07/24 20:09 94 Lab & Micro Results (Past 24 Hours) RBC 3.44 M/uL (4.20-5.40) L 10/08/24 WBC 17.56 K/ul (4.8-10.8) H 10/08/24 Hgb 7.8 g/dl (12.0-16.0) L 10/08/24 Hct 25.8 % (37.0-47.0) L 10/08/24 MCV 75.0 fL (80.0-100.0) L 10/08/24 MCH 22.7 pg (25.0-34.0) L 10/08/24 MCHC 30.2 g/dL (32.0-36.0) L 10/08/24 RDW Standard Deviation 53.5 fL (36.4-46.3) H 10/08/24 RDW Coefficient of Variation 20.0 % (11.5-14.5) H 10/08/24 Plt Count 63 K/uL (130-400) L 10/08/24 MPV 11.7 fL (9.4-12.4) 10/08/24 Nucleated Red Blood Cells % (auto) 0.2 % 10/08 Nucleated RBC Absolute Count (auto) 0.03 K/uL (0.00-0.12) 0 10/08/24 Neutrophils (%) (Auto) 87.3 % 10/08/24 Lymphocytes (%) (Auto) 2.2 % 10/08/24 Monocytes # (Auto) 1.60 K/uL (0.11-0.59) H 10/08/24 Eosinophils # (Auto) 0.05 K/uL (0.00-0.50) 10/08/24 Immature Granulocyte % (Auto) 0.6 % 10/08/24 Neutrophils # (Auto) 15.34 K/uL (1.40-6.50) H 10/08/24 Lymphocytes # (Auto) 0.39 K/uL (1.20-3.40) L 10/08/24 Monocytes # (Auto) 1.60 K/uL (0.11-0.59) H 10/08/24 Eosinophils # (Auto) 0.05 K/uL (0.00-0.50) 10/08/24 Basophils # (Auto) 0.08 K/uL (0.00-0.20) 10/08/24 Immature Granulocyte # (Auto) 0.10 K/uL (0.01-0.20) 5 Polychromasia 3+ 10/08/24 Hypochromasia Present 10/08/24 Echinocytes 1+ 10/08/24 Anisocytosis Present 10/08/24 Microcytosis Present 10/08/24 Tear Drop Cells 1+ 10/08/24 Ovalocytes 1+ 10/08/24 Toxic Vacuolation 1+ 10/08/24 Dohle Bodies 1+ 10/08/24 Na 133 mmol/L (136-145) L 10/08/24 K 3.7 mmol/L (3.5-5.1) 10/08/24 Cl 101 mmol/L (98-107) 10/08/24 CO2 20 mmol/L (21-32) L 10/08/24 Anion Gap 12 (3-11) H 10/08/24 BUN 72 mg/dl (6-23) H 10/08/24 Creatinine 3.49 mg/dl (0.6-1.2) H 10/08/24 BUN/Creatinine Ratio 20.6 (10-20) H 10/08/24 Glu 108 mg/dl (70-99(Fasting)) H 10/08/24 Ca 7.6 mg/dl (8.6-10.3) L 10/08/24 Phosphorus Level 5.5 mg/dl (2.5-4.9) H 10/08/24 Total Bilirubin 1.5 mg/dl (0.2-1.0) H 10/08/24 AST 338 U/L (13-39) H 10/08/24 ALT 302 U/L (7-52) H 10/08/24 Alkaline Phosphatase 118 U/L (34-104) H 10/08/24 TP 5.3 gm/dl (6.0-8.3) L 10/08/24 Albumin 2.8 gm/dl (3.4-5.0) L 10/08/24 Globulin 2.5 gm/dl (2.5-4.0) 10/08/24 Albumin/Globulin Ratio 1.1 (0.9-2) 10/08/24 Mg 2.0 mg/dl (1.7-2.4) 10/08/24 06:01 Calcium Level 7.6 mg/dl (8.6-10.3) L 10/08/24 06:01 Ionized Calcium 0.95 mmol/L (1.12-1.32) L 10/08/24 02:38 Prothromb Time International Ratio 1.4 (0.9-1.1) H 10/08/24 06 :01 Diagnostic Findings (Past 24 Hours) Abdomen/Pelvis CT 10/07/24 20:33 Exam(s): CT ABDOMEN + PELVIS Without Contrast EXAM: CT Abdomen and Pelvis Without Intravenous Contrast CLINICAL HISTORY: Reason for exam: recent liver transplant; sepsis. TECHNIQUE: Axial computed tomography images of the abdomen and pelvis without intravenous contrast. CTDI is 28 mGy and DLP is 1494 mGy-cm. Automated exposure control was utilized for the study. A dose lowering technique was utilized adhering to the principles of ALARA. COMPARISON: CT abdomen and pelvis 02/16/24 FINDINGS: Patient is status post liver transplant. There is a efsly-nri-nru collection within the central liver measuring 5 cm. Catheter extends from this collection through the common bile duct and into the distal duodenum. Gallbladder is absent. There is no biliary dilatation. Spleen is enlarged measuring 17.5 cm craniocaudal. Pancreas and adrenal glands are unremarkable. Kidneys demonstrate persistent nephrogram suggesting recent contrast- enhanced procedure. Aorta is normal in caliber. Small retroperitoneal lymph nodes are noted. There is no free air or significant free fluid. Patient is status post sleeve gastrectomy. There is no evidence of mechanical bowel obstruction. There is no bowel mucosal thickening. Appendix is normal. Urinary bladder is incompletely distended. There is contrast within the bladder. Uterus is absent. There is generalized anasarca. Small fat-containing umbilical hernia is noted. There is a midline laparotomy scar in the abdominal wall. There are no acute osseous findings. IMPRESSION: 1. Status post liver transplant. Fkwji-wrl-kuy collection in the central liver measuring 5 cm, potentially abscess in the setting of sepsis. Catheter extends from this collection through the common bile duct and into the distal duodenum. 2. Splenomegaly. Electronically signed by: Jemima Altamirano M.D. 10/07/24 22:46 PM I & O Totals 24 Hours 10/07/24 10/08/24 10/09/24 06:59 06:59 06:59 Intake Total 4578.338 / 4578.338 131.5 / 131.5 Output Total 450 / 450 Balance 4128.338 / 4128.338 131.5 / 131.5 Cumulative 10/07/24 18:33 thru 10/08/24 07:12 Intake Total 4709.838 Output Total 450 Balance 4259.838 RT Ventilator Mngmt (Last Documented) Ventilator Ordered Settings Respiratory Rate 20 10/08/24 06:57 Ventilator - PT Measurements Respiratory Rate 20 Coding Level of Care Code 80009 CRITICAL CARE 1ST 30-74M Diagnoses Septic shock A41.9; R65.21 Liver abscess, transplanted liver T86.43; K75.0 ARF (acute renal failure) N17.9 Type 2 diabetes mellitus E11.9 JUSTYN (generalized anxiety disorder) F41.1 Open leg wound S81.801I
[2024-10-08] MEDS: ICU Protocol for HYPERglycemia SCH (08:06)
[2024-10-08] MEDS: PANTOprazole 40 MG/10 ML SYR IV SCH (08:09)
[2024-10-08] MEDS: ICU ELECTROLYTE REPLACEMENT PROTOCOL SCH (08:36)
[2024-10-08 08:44] LABS: Base Excess VBG -6.7 mEq/L; HCO3 VBG 19 mmol/L; Oxygen Saturation VBG 94.6 %; PCO2 VBG 39 mmHg (38-50); PO2 VBG 71 mmHg
[2024-10-08] MEDS ORDERED: MYCOPHENOLATE MOFETIL 250 MG CAP PO SCH (09:00)
[2024-10-08] MEDS ORDERED: cycloSPORINE 100 MG CAP PO SCH (09:00)
[2024-10-08] MEDS: POTASSIUM CHLORIDE 20 MEQ/15 ML UDC PO STA (09:14)
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
[2024-10-08] MEDS: SODIUM BICARB 8.4% INJ 50 MEQ/50 ML SYR IV STA (09:46)
[2024-10-08] MEDS: SODIUM BICARBONATE 8.4% 150 MEQ in WATER, STERILE 1,000 ML IV SCH (10:37)
--- NOTE | 2024-10-08 11:09 | Pharmacy Report ---
Pharmacy PK ABX Note - Date of Service October 08, 2024 - Assessment and Plan Assessment 43 year old F receiving vancomycin and zosyn for treatment of septic shock in setting of liver abscess/infected indwelling biliary drain. History of GILLESPIE cirrhosis with recent liver transplant and biliary stent @ [facility] (). Immunocompromised. Blood/urine cultures pending. (+) JOANNA (SCr 4.03-->3.49, baseline ~1) and requiring vasopressor support. Pending transfer. Day # 2 of antimicrobial therapy. Plan Vancomycin * Loading dose: 1750 mg IV x 1 last night ~ 2300 * Random level this AM (@0750, ~8h level), 19.1mcg/mL. Safe to re-dose. * Vancomycin 1gm IV X 1 dose at noon today. * Given JOANNA and pressor support requirements, will continue to dose by levels. Random level tomorrow AM to guide further dosing. Pharmacy will continue to follow and will adjust dose/frequency as necessary. Thank you. Pharmacy has transitioned to AUC monitoring for vancomycin. AUC/NAJMA is the preferred PK/PD target and is associated with decreased risk of nephrotoxicity compared to traditional trough targets.
--- NOTE | 2024-10-08 11:48 | XCELERA ---
[id number]
[2024-10-08] MEDS: VANCOMYCIN HCL 1,000 MG/270 ML BAG IV ONE (11:53)
[2024-10-08 11:55] LABS: A calco-baum cmplx NotReported Not Detected (NotDetected); Bact fragilis Not Reported Not Detected (NotDetected); Blood Culture Id Panel See PCR Comment (NotDetected); C auris Not Reported Not Detected (NotDetected); CTX-M Resistant Gene Not Detected (NotDetected); Calbicans Not Reported Not Detected (NotDetected); Candida glabrata Not Reported Not Detected (NotDetected); Candida krusei Not Reported Not Detected (NotDetected); Cneoformans/gatti Not Reported Not Detected (NotDetected); Cparapsilosis Not Reported Not Detected (NotDetected); E cloacae compx Not Reported Not Detected (NotDetected); Efaecalis Not Reported Not Detected (NotDetected); Efaecium Not Reported Not Detected (NotDetected); Enterobacterales DETECTED (NotDetected); Enterobacterales Not Reported DETECTED (NotDetected); Escherichia coli Not Reported Not Detected (NotDetected); H influenzae Not Reported Not Detected (NotDetected); IMP Resistant Gene Not Detected (NotDetected); K aerogenes Not Reported Not Detected (NotDetected); KPC Resistant Gene Not Detected (NotDetected); Koxytoca Not Reported DETECTED (NotDetected); Kpneumoniae grp Not Reported Not Detected (NotDetected); Lmonocyt Not Reported Not Detected (NotDetected); N meningitidis Not Reported Not Detected (NotDetected); NDM Resistant Gene Not Detected (NotDetected); OXA 48 Like Resistant Gene Not Detected (NotDetected); P aeruginosa Not Reported Not Detected (NotDetected); Proteus spp Not Reported Not Detected (NotDetected); Salmonella spp Not Reported Not Detected (NotDetected); Staph lugdunensis Not Reported Not Detected (NotDetected); Staph spp. Not Reported Not Detected (NotDetected); Staphaureus Not Reported Not Detected (NotDetected); Staphepi Not Reported Not Detected (NotDetected); Stenmaltophilia Not Reported Not Detected (NotDetected); Strep agal(GrpB) Not Reported Not Detected (NotDetected); Strep pneum Not Reported Not Detected (NotDetected); Strep pyog (GrpA) Not Reported Not Detected (NotDetected); Strep spp Not Reported Not Detected (NotDetected); VIM Resistant Gene Not Detected (NotDetected); mcr-1 Colistin Resistant Gene Not Detected (NotDetected)
--- NOTE | 2024-10-08 12:39 | Electrocardiogram Report ---
Test Reason : Blood Pressure : */* mmHG Vent. Rate : 92 BPM Atrial Rate : 92 BPM P-R Int : 146 ms QRS Dur : 104 ms QT Int : 426 ms P-R-T Axes : 13 -3 14 degrees QTcB Int : 526 ms Normal sinus rhythm Prolonged QT Abnormal ECG When compared with ECG of 16-Sep-2024 17:03, Incomplete right bundle branch block is no longer Present Confirmed by Mikal Blue ([id number]) on 10/08/2024 12:39:23 PM Referred By: REFERRED SELF Confirmed By: Mikal Blue
[2024-10-08 12:54] LABS: Creatinine Urine Random 43.4 mg/dl; Protein Creatinine Ratio Urine 0.4 (0-0.2); Total Protein Urine Random 19.5 mg/dl (0-11.9)
[2024-10-08] MEDS: BENZOCAINE 20% (ORAJEL) 11.9 GM TUBE MT PRN (14:18)
[2024-10-08] MEDS: NYSTATIN SUSP 500,000 U/5 ML UDC PO SCH (14:18)
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
[2024-10-08 15:06] VITALS: RESP 21; TEMP 96.6; O2SAT 98
[2024-10-08 15:32] VITALS: BP 116/76; PULSE 93
--- NOTE | 2024-10-08 15:39 | Discharge Summary ---
Discharge Summary Date of Service October 08, 2024 Principal Dx & Hospital Course #1 = Principal Diagnosis Admission HPI Per Admitting Provider The patient is a 43-year-old female with a past medical history including diabetes mellitus type 2, liver cirrhosis secondary to [place], status post liver transplant 07/15/2024, history of acute kidney injury, thrombocytopenia, history of tremor, cervicogenic headache, generalized anxiety disorder, anasarca, portal vein thrombosis, splenic vein thrombosis, portal vein hypertension, hydrosalpinx, and chronic posttraumatic headache.The patient is a 43-year-old female who presented to the emergency department initially with fever and confusion. She is a liver transplant patient from 07/15/2024 at [facility]. She had been having 3 days of fevers, with a maximum temperature of 101.9 F, and had been seen at the liver transplant office in [place] yesterday, where she had undergone a CT scan abdomen and pelvis which showed fluid and a potential abscess on the liver, for which she was started on ciprofloxacin and discharged to home, with follow-up scheduled for the next month at [place]. The patient did take her first dose of Cipro today, had a temperature 101.9 F, for which her gave her Tylenol 500 mg at 1700 hrs. this evening as directed by [place]. She started to hallucinate, noted to be seeing things, and this prompted him to bring her to the emergency department at [facility] for assessment. She has been taking her CellCept and cyclosporine immunosuppressive agents as directed. After the ED had had several c onversations with the transplant team at [place], the patient been accepted to the SICU there, however, an inpatient bed was not immediately available. After discussion with gastroenterology, nephrology, and teacher of the deaf team at [facility], the patient will admitted by the [facility] hospitalist service to the ICU. Patient had been given vancomycin IV and Zosyn IV, along with IV fluid resuscitation, and blood pressure did drop to the a systolic of 77, requiring the initiation of Levophed for pressure support. Discharge Plan Discharge Items Reason For Visit: SEPTIC SHOCK Follow-up/Referrals: Roland Timmons PA-C [Primary Care Provider] - Medications and DC Order Prescriptions: No Action acetaminophen [Tylenol Extra Strength] 500 mg tablet 500 mg PO Q6H PRN senna 8.6 mg capsule 17.2 mg PO DAILY aspirin 81 mg tablet,chewable 81 mg PO DAILY ondansetron HCl 4 mg tablet 4 mg PO Q8H PRN mycophenolate mofetil [CellCept] 250 mg capsule 500 mg PO BID sulfamethoxazole-trimethoprim [Bactrim DS] 800-160 mg tablet 1 tab PO .M/W/ losartan 25 mg tablet 25 mg PO DAILY bisacodyl [Dulcolax (bisacodyl)] 5 mg tablet,delayed release (DR/EC) 5 mg PO DAILY cyclosporine 100 mg capsule 100 mg PO BID Ubrelvy 50 mg tablet 50 mg PO .COMPLEX PRN (Reason: headache) Qty: 10 6RF Rx Instructions: 50mg prn migraine, may repeat after two hours prn sumatriptan succinate 50 mg tablet 50 mg PO UD PRN (Reason: Migraine Headache) Hold Instructions: Provider's Order Rx Instructions: Pt 1-2 tabs po prn for migraine and if migraine continues one hour later pt takes 1 more tab by mouth. valacyclovir 500 mg Tablet 500 mg PO Q8 PRN (Reason: .BREAKOUTS) triamcinolone acetonide 0.1 % Cream 1 applic EXT TID PRN (Reason: dry, itchy skin on legs/abdominal wall) Qty: 15 0RF Combivent Respimat 20-100 mcg/actuation Mist 1 puff INHALATION QID PRN (Reason: cough/wheeze/shortness of breath) Qty: 1 0RF Rx Instructions: space evenly during waking hours clobetasol 0.05 % solution 1 applic TOPICAL BID PRN (Reason: for scalp) promethazine [Promethegan] 25 mg suppository 25 mg IN UD PRN (Reason: Nausea) famotidine 40 mg tablet 40 mg PO QAM omeprazole 40 mg Capsule,Delayed Release(Dr/Ec) 40 mg PO BID prochlorperazine maleate [Compazine] 5 mg tablet 5 mg PO QID PRN (Reason: Nausea) venlafaxine [Effexor XR] 150 mg capsule,extended release 24hr 150 mg PO DAILY Qty: 30 1RF Rx Instructions: Take 150mg w/ 75mg to equal 225mg by mouth once daily. venlafaxine [Effexor XR] 75 mg capsule,extended release 24hr 75 mg PO DAILY Qty: 30 1RF Rx Instructions: Take 75mg w/ 150mg to equal 225mg by mouth once daily. diclofenac sodium [Voltaren Arthritis Pain] 1 % Gel 4 g EXT QID PRN (Reason: right shoulder pain) Qty: 1 0RF Rx Instructions: purchase [id number]. bumetanide 1 mg tablet 3 mg PO BID Qty: 180 0RF Rx Instructions: take each morning upon awakening and then again in the afternoon. alprazolam 1 mg tablet 1 mg PO BID PRN (Reason: Anxiety) sertraline 50 mg tablet 50 mg PO QAM Rx Instructions: takes with 100 mg tablet for a total daily dose of 150 mg Tirosint-Marisa 200 mcg/mL solution 300 mcg PO QAM (DME) OneTouch Verio test strips Strip See Rx Instructions .Route Qty: 100 1RF Rx Instructions: Check blood sugars 1x/day. (DME) lancets [Microlet Lancet] Misc See Rx Instructions .Route Qty: 100 1RF Rx Instructions: Check blood sugars 1x/day. potassium chloride 20 mEq Packet 40 meq PO BID Qty: 120 1RF sertraline 100 mg tablet 50 mg PO QAM Rx Instructions: takes with 50 mg tablet for total of 150mg daily tizanidine 4 mg tablet 2 mg PO Q6H PRN (Reason: muscle spasms) pramipexole 0.5 mg tablet 0.5 mg PO QID gabapentin 600 mg tablet 600 mg PO TID PRN (Reason: nerve pain) Ozempic 1 mg/dose (4 mg/3 mL) pen injector 0.25 mg SUBCUT WK Rx Instructions: wednesdays Admission Data Admit Date/Time: 10/08/24 02:21 Attending Provider: Yan Rodriguez Admit Provider: Angel Hope Primary Care Provider: Roland Timmons Other Providers: Angel Hope; Kimo Stoddard Stephen M.; Jung Sparks Hospital Stay Data Consultations 10/07/24 23:04 ED Decision to Admit Stat 10/08/24 02:29 Consult Gastroenterology Routine Consult Nephrology Routine 10/08/24 02:57 Consult Retinal Surgeon Routine Diagnostic Imagining Performed 10/07/24 20:33 CT Abd and Pelvis [CT abd pelvis wo con] Stat Coding
[2024-10-09 08:59] LABS: Free T4 Index (T7) DNR (1.4-3.8)
== END 2024-10-08 15:30 | disposition short-term general hospital (02) | DRG 441 ==
LOC: ED 18:33 → 1E 10-08 02:00 → SUATTDRO 10-08 02:21

== ENCOUNTER 2024-10-23 21:06 | Inpatient (IN) ==
--- OUTSIDE RECORDS SUMMARY | 2024-10-23 21:18 | External Medical Summary | Summary of Care ---
Author Name Unknown Organization [facility] Address [address] [place] [address] Phone [phone] Care Team Providers Care Piano Tuner Name Role Phone Roland Timmons MD Primary Care Provider Unavailabl e Reason for Visit * Reason Onset Date Comments No Show 10/08/2024 Encounter Details Date Type Department Care Team (Late st Contact Info) Description 10/08/2024 Telephone Hematology/Oncology, [facility] [address] [place] [address] Keely Toscano CRNP [address], [place] [id number] No Show Allergies Active Allergy Reactions Criticality Noted Date Comments Codeine Hives 07/18/2012 Metformin Abdominal pain Low 03/30/2013 Ondansetron 06/02/2024 documented as of this encounter (statuses as of 10/11/2024) Medications ONETOUCH ULTRASOFT LANCETS MISCIndications:Typ e II [...] suspected opioid overdose. Seek immediate medical attention. [email or web address] Active Prochlorperazine Maleate 5 MG Oral Tablet [...] morning and 1 Tablet before bedtime. 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 Answer Date of Assessment Author Yes 09/01/2023 9:41 AM EST documented as of this encounter Miscellaneous Notes * Telephone Encounter - Gregg Erickson OSA - 10/11/2024 8:51 AM EST Left message and MyG Sent * Telephone Encounter - Amena Canseco LPN - 10/08/2024 12:53 PM EST Pt did not show for her Venofer infusion. Scheduling: Can you please call patient to reschedule? Thank you. NS: FYI documented in this encounter Plan of Treatment Upcoming Encounters Date Type Department Care Team (Late st Contact Info) Description 10/15/2024 10:45 AM EST Hem/Onc Treatment Hematology/Oncology Treatment, [place] [address] [place] [phone] Michelle, Chair [address] [facility] [address] 10/27/2024 1:00 PM EST Office Visit Dermatology [facility] [address] [place] [phone] Saran Knutson PA-C [address] [place] [address] [place] [address] 07/14/2025 8:20 AM EST Office Visit Dermatology [facility] [address] [place] [phone] Saran Knutson PA-C [address] [place] [address] [place] [id number] Health Maintenance Due Date Last Done Comments [...] on patient's age to complete this topic Meningitis B Vaccine (Bexsero/Trumemba) Aged Out No longer eligible based on patient's age to complete this topic documented as of this encounter Medical Devices Not on filedocumented as of this encounter Advance Directives * Full Code (Latest Code Status on File) Date Activated Date Inactivated Comments 10/15/2007 5:16 PM 10/17/2007 5:01 PM Care Teams Piano Tuner Relationship Specialty Start Date End Date Roland Timmons MD PCP - General Internal Medicine 09/16/24 documented as of this encounter
--- OUTSIDE RECORDS SUMMARY | 2024-10-23 21:18 | External Medical Summary | Summary of Care ---
Author Name Unknown Organization [facility] Address [address] [facility] [place] [address] Phone [phone] Care Team Providers Care Mail Weigher Name Role Phone Roland Timmons MD Primary Care Provider Unavailabl e Reason for Visit * Reason Onset Date Comments No Show 10/08/2024 Encounter Details Date Type Department Care Team (Late st Contact Info) Description 10/08/2024 Telephone Hematology/Oncology, [facility] [address] [place] [address] Keely Toscano CRNP [address] [place], [place] [phone] No Show Allergies Active Allergy Reactions Criticality Noted Date Comments Codeine Hives 07/18/2012 Metformin Abdominal pain Low 03/30/2013 Ondansetron 06/02/2024 documented as of this encounter (statuses as of 10/13/2024) Medications ONETOUCH ULTRASOFT LANCETS MISCIndications:Typ e II [...] suspected opioid overdose. Seek immediate medical attention. [email or web address] Active Prochlorperazine Maleate 5 MG Oral Tablet [...] morning and 1 Tablet before bedtime. 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 on file [...] Telephone Encounter - Hilda Cueva OSA - 10/13/2024 9:13 AM EST Left message x3 My g sent Letter sent * Telephone Encounter - Hilda Cueva OSA - 10/12/2024 7:51 AM EST Left message x 2 * Telephone Encounter - Gregg Erickson OSA [...] 10:45 AM EST Hem/Onc Treatment Hematology/Oncology Treatment, [place] [address] [place] [address] Michelle, Chair 7 Hem Onc Sc[address] [facility] [place] [address] 10/27/2024 1:00 PM EST Office Visit Dermatology [facility] [address] [place] [phone] Saran Knutson PA-C [address] [place] [address] 07/14/2025 8:20 AM EST Office Visit Dermatology [facility] [address] [place] [phone] Saran Knutson PA-C [address] [place] [address] Health Maintenance Due Date Last Done Comments [...] 5:16 PM 10/17/2007 5:01 PM Care Teams Mail Weigher Relationship Specialty Start Date End Date Roland Timmons MD PCP - General Internal Medicine 09/16/24 documented as of this encounter
--- OUTSIDE RECORDS SUMMARY | 2024-10-23 21:18 | External Medical Summary ---
Author Name UNSPECIFIED Address Unknown Organization [facility] History of Encounters Reason for Assessment: Transferred to an inpatient facility - patient not discharged from agency Inpatient Facility where the patient been admitted: Hospital
--- OUTSIDE RECORDS SUMMARY | 2024-10-23 21:18 | External Medical Summary | Summary of Care ---
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 Name Role Phone Roland Timmons MD Primary Care Provider Unavailabl e Reason for Visit * Reason Onset Date Comments No Show 10/08/2024 Encounter Details Date Type Department Care Team (Late st Contact Info) Description 10/08/2024 Telephone Hematology/Oncology, [facility] [address] [place] [address] Keely Toscano CRNP [address], [place] [id number] No Show Allergies Active Allergy Reactions Criticality Noted Date Comments Codeine Hives 07/18/2012 Metformin Abdominal pain Low 03/30/2013 Ondansetron 06/02/2024 documented as of this encounter (statuses as of 10/12/2024) Medications ONETOUCH ULTRASOFT LANCETS MISCIndications:Typ e II [...] suspected opioid overdose. Seek immediate medical attention. [email or web address] Active Prochlorperazine Maleate 5 MG Oral Tablet [...] morning and 1 Tablet before bedtime. 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 [place] [id number] Saran Knutson PA-C [address] [facility] [place] [address] Health Maintenance Due Date Last Done Comments [...] 12/19/2016, Additional history exists HbA1c 01/16/2025 07/19/2024, 010 03/2024, 01/03/2023, Additional history exists B-12 07/26/2025 [...] 5:16 PM 10/17/2007 5:01 PM Care Teams Agricultural Produce Washer Relationship Specialty Start Date End Date Roland Timmons MD PCP - General Internal Medicine 09/16/24 documented as of this encounter
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
[2024-10-23 22:45] LABS: Hematocrit (blood only) 26.6 % (37.0-47.0); Hemoglobin 8.2 g/dl (12.0-16.0); Mean Corpuscular Hemoglobin 23.8 pg (25.0-34.0); Mean Corpuscular Hgb Conc 30.8 g/dL (32.0-36.0); Mean Corpuscular Volume 77.3 fL (80.0-100.0); Mean Platelet Volume 11.7 fL (9.4-12.4); Platelet Count 143 K/uL (130-400); RDW Coefficient of Variation 25.4 % (11.5-14.5); RDW Standard Deviation 69.8 fL (36.4-46.3); Red Blood Count 3.44 M/uL (4.20-5.40); White Blood Count 5.47 K/ul (4.8-10.8)
[2024-10-23 22:53] LABS: Adenovirus PCR Not Detected (NotDetected); Bordetella parapertussis PCR Not Detected (NotDetected); Bordetella pertussis PCR Not Detected (NotDetected); Chlamydia pneumoniae PCR Not Detected (NotDetected); Coronavirus 229E PCR Not Detected (NotDetected); Coronavirus CoV-2 (COVID19)PCR Not Detected (NotDetected); Coronavirus HKU1 PCR Not Detected (NotDetected); Coronavirus NL63 PCR Not Detected (NotDetected); Coronavirus OC43PCR Not Detected (NotDetected); Human Metapneumovirus PCR Not Detected (NotDetected); Influenza A PCR Not Detected (NotDetected); Influenza B PCR Not Detected (NotDetected); Mycoplasma pneumoniae PCR Not Detected (NotDetected); Parainfluenza Virus 1 PCR Not Detected (NotDetected); Parainfluenza Virus 2 PCR Not Detected (NotDetected); Parainfluenza Virus 3 PCR Not Detected (NotDetected); Parainfluenza Virus 4 PCR Not Detected (NotDetected); Respiratory Syncytial VirusPCR Not Detected (NotDetected); Rhinovirus/Enterovirus PCR Not Detected (NotDetected)
[2024-10-23 22:55] LABS: Albumin Globulin Ratio 0.8 (0.9-2); Albumin Level 2.6 gm/dl (3.4-5.0); BUN Creatinine Ratio 6.8 (10-20); Bilirubin,Total 2.9 mg/dl (0.2-1.0); Calcium 8.2 mg/dl (8.6-10.3); Creatinine Clr Calc Pharmacy 104.5 ml/min; Globulin 3.1 gm/dl (2.5-4.0); Potassium 3.4 mmol/L (3.5-5.1); Total Protein 5.7 gm/dl (6.0-8.3)
[2024-10-23 22:56] LABS: Anisocytosis Present; Basophils # (auto) 0.03 K/uL (0.00-0.20); Basophils % (auto) 0.5 %; Eosinophils # (auto) 0.09 K/uL (0.00-0.50); Eosinophils % (auto) 1.6 %; Immature Granulocytes # (auto) 0.02 K/uL (0.01-0.20); Immature Granulocytes % (auto) 0.4 %; Lymphocytes # (auto) 0.45 K/uL (1.20-3.40); Lymphocytes % (auto) 8.2 %; Monocytes # (auto) 0.77 K/uL (0.11-0.59); Monocytes % (auto) 14.1 %; Neutrophils # (auto) 4.11 K/uL (1.40-6.50); Neutrophils % (auto) 75.2 %; Target Cells 1+
[2024-10-23] MEDS: OPTIRAY 320 100ml IV ONE (23:15)
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
--- NOTE | 2024-10-24 00:20 | XRay Report ---
Exam(s): XR CXR 1 VIEW EXAM: XR Chest, 1 View CLINICAL HISTORY: Reason for exam: sepsis. TECHNIQUE: Frontal view of the chest. COMPARISON: No relevant prior studies available. FINDINGS: There is a poor inspiratory effort. A PICC line is noted with its tip in the region of the right atrium. Lungs: There is elevation of the right hemidiaphragm. No consolidation. Pleural space: No pleural effusion is seen. No pneumothorax. Heart: The heart appears top normal in size.. Mediastinum: Unremarkable. Bones/joints: There are postoperative changes involving the spine.. IMPRESSION: Poor inspiratory effort. No acute pulmonary disease.. Electronically signed by: Yoseph Arguello MD 10/24/24 00:19 AM
[2024-10-24] MEDS: PIPERACILLIN/TAZOBACTAM 4.5 GM/100 ML BAG IV ONE (01:00)
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
[2024-10-24 02:37] LABS: INR 1.2 (0.9-1.1)
[2024-10-24] MEDS: cycloSPORINE 25 MG CAP PO STA (02:40)
[2024-10-24] MEDS: MYCOPHENOLATE MOFETIL 250 MG CAP PO STA (02:40)
[2024-10-24] MEDS ORDERED: DOCUSATE SODIUM 100 MG CAP PO PRN (04:05)
[2024-10-24] MEDS: ACETAMINOPHEN 500 MG TAB PO PRN (05:22)
[2024-10-24 05:57] LABS: iSTAT Creatinine 0.9 mg/dl (0.6-1.3); iSTAT Hemoglobin 9.2 g/dl (12.0-16.0); iSTAT Potassium 3.4 mmol/L (3.3-5.0)
[2024-10-24] MEDS: AMPICILLIN/SULBACTAM SOD 3,000 MG/100 ML BAG IV SCH (06:08)
[2024-10-24] MEDS: LEVOTHYROXINE SODIUM 100 MCG TABLET PO SCH (07:19)
[2024-10-24] MEDS: PIPERACILLIN/TAZOBACTAM 4.5 GM/100 ML BAG IV SCH (07:20)
[2024-10-24 07:24] LABS: Basophils # (auto) 0.03 K/uL (0.00-0.20); Basophils % (auto) 0.5 %; Eosinophils # (auto) 0.09 K/uL (0.00-0.50); Eosinophils % (auto) 1.5 %; Hematocrit (blood only) 24.9 % (37.0-47.0); Hemoglobin 7.8 g/dl (12.0-16.0); Immature Granulocytes # (auto) 0.02 K/uL (0.01-0.20); Immature Granulocytes % (auto) 0.3 %; Lymphocytes # (auto) 0.42 K/uL (1.20-3.40); Lymphocytes % (auto) 6.9 %; Mean Corpuscular Hemoglobin 23.8 pg (25.0-34.0); Mean Corpuscular Hgb Conc 31.3 g/dL (32.0-36.0); Mean Corpuscular Volume 75.9 fL (80.0-100.0); Mean Platelet Volume 11.4 fL (9.4-12.4); Monocytes # (auto) 1.13 K/uL (0.11-0.59); Monocytes % (auto) 18.6 %; Neutrophils # (auto) 4.37 K/uL (1.40-6.50); Neutrophils % (auto) 72.2 %; Platelet Count 142 K/uL (130-400); RDW Coefficient of Variation 25.8 % (11.5-14.5); RDW Standard Deviation 69.8 fL (36.4-46.3); Red Blood Count 3.28 M/uL (4.20-5.40); White Blood Count 6.06 K/ul (4.8-10.8)
[2024-10-24 07:38] LABS: Albumin Globulin Ratio 0.8 (0.9-2); Albumin Level 2.3 gm/dl (3.4-5.0); BUN Creatinine Ratio 8.2 (10-20); Bilirubin,Total 3.1 mg/dl (0.2-1.0); Calcium 7.3 mg/dl (8.6-10.3); Creatinine Clr Calc Pharmacy 122.5 ml/min; Magnesium 1.3 mg/dl (1.7-2.4); Phosphorus 2.9 mg/dl (2.5-4.9); Potassium 3.4 mmol/L (3.5-5.1); Total Protein 5.3 gm/dl (6.0-8.3)
[2024-10-24 07:47] LABS: INR 1.3 (0.9-1.1); Prothrombin Time 13.5 Seconds (9.0-12.0)
[2024-10-24 07:53] LABS: Anisocytosis Present; Hypochromasia Present; Polychromasia 1+; Target Cells 2+
[2024-10-24] MEDS: MAGNESIUM SULFATE / D5W 1 GM/100 ML BAG IV SCH (07:54)
[2024-10-24] MEDS: POTASSIUM CHLORIDE CRTAB 20 MEQ TABCR PO STA (07:54)
[2024-10-24] MEDS: POTASSIUM CHLORIDE PWD 20 MEQ PACK PO SCH (07:55)
[2024-10-24] MEDS: DOXYCYCLINE HYCLATE 100 MG CAP PO SCH (09:35)
[2024-10-24] MEDS: LOSARTAN POTASSIUM 25 MG TAB PO SCH (09:35)
[2024-10-24] MEDS: BUMETANIDE 1 MG TAB PO SCH (09:35)
[2024-10-24] MEDS: PROMETHAZINE 12.5 MG/50.5 ML BAG IV ONE (11:29)
[2024-10-24] MEDS: MYCOPHENOLATE MOFETIL 250 MG CAP PO SCH (13:24)
[2024-10-24] MEDS: cycloSPORINE (SANDIMMUNE) 25 MG CAP PO SCH (13:24)
[2024-10-24] MEDS: HYDROmorphone INJ 0.5 MG/0.5 ML SYR IV PRN (14:44)
--- NOTE | 2024-10-24 16:59 | Communication Note ---
Date of Service: October 24, 2024 By CMS guidelines, a determination that the admission or continued stay is not medically necessary has been made by a member of the UR committee and a phys ician for this hospital stay, therefore a Code 44 will be completed and the Inpatient admission will be changed to outpatient.
--- NOTE | 2024-10-24 16:59 | Discharge Summary ---
Discharge Summary Date of Service October 24, 2024 Principal Dx & Hospital Course #1 = Principal Diagnosis (1) Liver abscess: (2) Liver transplant status: (3) Hypokalemia: (4) Splenic infarct: Plan Patient is a 43-year-old female s/p liver transplant with a liver abscess that required transfer after recent admission from 10/08-10/11. She was recently discharged from [facility] 2 days ago but today has developed a fever as h igh as 101 F, in ED she is afebrile but took Tylenol at home (she states she can take 2000 Mg daily at home). she stated she was discharged on continuous Unasyn and doxycycline twice daily for 2 weeks. CTAP showed liver lesion has now increased in size to 10.6 x 4.5 x 11.1 cm. Her laboratories are otherwise stable. And a from ER provider stated the patient is excepted at [facility] but they will not have a bed available until tomorrow afternoon 10/24. She is being admitted to the PCU for IV antibiotics with Zosyn and Unasyn (pharmacy to alternate), awaiting transfer. #liver abscess of transplanted liver LFTS stable - ast 35, ALT 27, alk phos 212, INR 1.2 patient noted fever at home of 101 F, took Tylenol and afebrile on admission CT AP showed liver abscess 10.6 x 4.5 x 11.1cm ( increased from previous imaging of 5 cm), ascites, probable anasarca, Percutaneous drainage catheter noted with its tip in the right lobe of liver recently discharged from [facility] with continuous Unasyn pump and doxycycline, however pump appears to be malfunctioning percutaneous drain Will dose Unasyn 3G IV Q6 along with Zosyn for 4.5g Q8 Continue doxycycline Continue antirejection medications of cyclosporine and CellCept, evening dose ordered on admission not septic on admission - no leukocytosis, VSS, lactate follow blood culture - previous cultures grew klebsiella oxytoc sensitive to Unasyn and Zosyn trend CBC, CMP, PT/INR Tylenol as needed for pain and fever with maximum dose of 2G in 24 hours ascites - continue bumex 2mg BID accepted for transfer at [facility], bed available the afternoon of 10/24 #hypokalemia K+ 3.4 on admission continue home KCl 40 meq PO BID #splenic lesion AP CT showed spleen is enlarged with areas of decreased attenuation within the spleen that may represent infarcts splenomegaly noted on previous scans overall nonconcerning, no sign of hemorrhagic trauma from recent procedures Chronic stable diagnoses: anemia - hgb 8.2, trend cbc T2DM - hold Ozempic, defer insulin coverage hypothyroidism - continue levothyroxine htn - continue losartan VTE ppx: SCDs Diet: T2DM Dispo: PCU, transfer to [facility] 10/24 afternoon Admission HPI Per Admitting Provider Patient is a 43-year-old female s/p liver transplant with a liver abscess that required transfer after recent admission from 10/08. She was recently discharged from [facility] 2 days ago but today has developed a fever as high as 101 F, in ED she is afebrile but took Tylenol at home (she states she can take 2000 Mg daily at home). she stated she was discharged on continuous Unasyn and doxycycline twice daily for 2 weeks. CTAP showed liver lesion has now increased in size to 10.6 x 4.5 x 11.1 cm. Her laboratories are otherwise stable. And a from ER provider stated the patient is excepted at [facility] but they will not have a bed available until tomorrow afternoon 10/24. She is being admitted to the PCU for IV antibiotics with Zosyn and Unasyn (pharmacy to [facility]), awaiting transfer. Patient seen at bedside. She stated that she was discharged home from [facility] 2 days ago. The day before she left she did have a fever 3 times a day however hospital staff was overall not concerned with it. she stated that while she was there she had multiple MRCP's and multiple IR procedures. She currently has a drain in place however has not been draining much for the past few days. They did take out 1 stent and did an MRCP and put in a permanent stent. She was on Zosyn and ampicillin while there and on discharge was placed on 14 days of continuous ampicillin via pump and 14 days of doxycycline. She takes Bactrim Fridays chronically. She stated today at home she developed a fever as high as 101 F and took 500 Mg of Tylenol 3 times. She stated that she has a lot of 2000 Mg daily. She also endorses a headache and worsening abdominal pain. She stated her abdomen feels tight, full, and steady. She has gained approximately 50 pounds since recent admission, she takes Bumex 2 Mg twice daily and stated it typically takes for a long time to get her fluid off. She does endorse daily nausea, however chronic and unchanged, and frequent vomiting, roughly 4 times a week and unchanged. She denies current fevers or chills, dizziness, lightheadedness, current headache, current nausea, chest pain, shortness of breath. She did take her morning medications but is due for her evening medications including CellCept and cyclosporine, ordered on admission. She wishes to be full code. Case discussed with supervising physician, ER provider, and pharmacy staff. ER provider stated the patient is excepted at [facility] but they will not have a bed available until the afternoon 10/24. They recommended to restart Zosyn. Will admit to PCU for optimal medical care and IV antibiotics. Pharmacy aware that patient will be on both Zosyn and Unasyn as it appears her continuous pump may be malfunctioning with frequent beeping. Discharge Exam Patient was in mild distress having abdominal pain and back pain Drain in the right abdomen did not have any significant fluid in the [place] bulb Card exam is regular lungs are distant abdomen is protuberant diffusely tender with no focal guarding or rebound Discharge Plan Discharge Items Patient Disposition: Transfer Acute Care Hospital Reason For Visit: LIVER ABSCESS, S/P TRANSPLANT Discharge Diagnosis: Liver abscess/Phlegmon previous culture Klebsiella Activity: Per Instructions section Non-emergency contact: Specialist Call non-emergency contact if: your symptoms worsen Follow-up/Referrals: Roland Timmons PA-C [Primary Care Provider] - Diet: Carb Consistent or DM2 Addtl Attending Provider Instructions: follow up as per transplant team Pending Studies at Discharge: Yes Stand-Alone Forms: [facility], [facility] Skilled Items Patient informed of condition?: Yes DNR: No Discharge Level of Care: Skilled Communicable Disease: No Discharge Prognosis: Other Lines: Peripheral IV Urinary Catheter: No Medications and DC Order Prescriptions: New bumetanide 1 mg Tablet 2 mg PO BID17 Qty: 20 0RF Continued acetaminophen [Tylenol Extra Strength] 500 mg tablet 500 mg PO Q6H PRN Hold Instructions: hold due to abnormal LFTs senna 8.6 mg capsule 17.2 mg PO DAILY ondansetron HCl 4 mg tablet 4 mg PO Q8H PRN mycophenolate mofetil [CellCept] 250 mg capsule 500 mg PO BID losartan 25 mg tablet 25 mg PO DAILY Hold Instructions: hold due to acute renal failure bisacodyl [Dulcolax (bisacodyl)] 5 mg tablet,delayed release (DR/EC) 5 mg PO DAILY cyclosporine 100 mg capsule 100 mg PO BID valacyclovir 500 mg Tablet 500 mg PO Q8 PRN (Reason: .BREAKOUTS) triamcinolone acetonide 0.1 % Cream 1 applic EXT TID PRN (Reason: dry, itchy skin on legs/abdominal wall) Qty: 15 0RF Combivent Respimat 20-100 mcg/actuation Mist 1 puff INHALATION QID PRN (Reason: cough/wheeze/shortness of breath) Qty: 1 0RF Rx Instructions: space evenly during waking hours clobetasol 0.05 % solution 1 applic TOPICAL BID PRN (Reason: for scalp) promethazine [Promethegan] 25 mg suppository 25 mg NH UD PRN (Reason: Nausea) famotidine 40 mg tablet 40 mg PO QAM omeprazole 40 mg Capsule,Delayed Release(Dr/Ec) 40 mg PO BID prochlorperazine maleate [Compazine] 5 mg tablet 5 mg PO QID PRN (Reason: Nausea) Tirosint-Marisa 200 mcg/mL solution 300 mcg PO QAM potassium chloride 20 mEq Packet 40 meq PO BID Qty: 120 1RF Hold Instructions: hold Held aspirin 81 mg tablet,chewable 81 mg PO DAILY Hold Instructions: Provider's Order alprazolam 1 mg tablet 1 mg PO BID PRN (Reason: Anxiety) Hold Instructions: Provider's Order Ozempic 1 mg/dose (4 mg/3 mL) pen injector 0.25 mg SUBCUT WK Hold Instructions: Provider's Order Rx Instructions: wednesdays Discontinued sulfamethoxazole-trimethoprim [Bactrim DS] 800-160 mg tablet 1 tab PO .// Hold Instructions: hold due to acute renal failure Ubrelvy 50 mg tablet 50 mg PO .COMPLEX PRN (Reason: headache) Qty: 10 6RF Rx Instructions: 50mg prn migraine, may repeat after two hours prn sumatriptan succinate 50 mg tablet 50 mg PO UD PRN (Reason: Migraine Headache) Hold Instructions: Provider's Order Rx Instructions: Pt 1-2 tabs po prn for migraine and if migraine continues one hour later pt takes 1 more tab by mouth. venlafaxine [Effexor XR] 150 mg capsule,extended release 24hr 150 mg PO DAILY Qty: 30 1RF Rx Instructions: Take 150mg w/ 75mg to equal 225mg by mouth once daily. venlafaxine [Effexor XR] 75 mg capsule,extended release 24hr 75 mg PO DAILY Qty: 30 1RF Rx Instructions: Take 75mg w/ 150mg to equal 225mg by mouth once daily. diclofenac sodium [Voltaren Arthritis Pain] 1 % Gel 4 g EXT QID PRN (Reason: right shoulder pain) Qty: 1 0RF Hold Instructions: hold Rx Instructions: purchase [id number]. bumetanide 1 mg tablet 3 mg PO BID Qty: 180 0RF Hold Instructions: hold due to acute renal failure Rx Instructions: take each morning upon awakening and then again in the afternoon. sertraline 50 mg tablet 50 mg PO QAM Rx Instructions: takes with 100 mg tablet for a total daily dose of 150 mg sertraline 100 mg tablet 50 mg PO QAM Rx Instructions: takes with 50 mg tablet for total of 150mg daily tizanidine 4 mg tablet 2 mg PO Q6H PRN (Reason: muscle spasms) pramipexole 0.5 mg tablet 0.5 mg PO QID gabapentin 600 mg tablet 600 mg PO TID PRN (Reason: nerve pain) No Action (DME) OneTouch Verio test strips Strip See Rx Instructions .Route Qty: 100 1RF Rx Instructions: Check blood sugars 1x/day. (DME) lancets [Microlet Lancet] Misc See Rx Instructions .Route Qty: 100 1RF Rx Instructions: Check blood sugars 1x/day. Admission Data Admit Date/Time: 10/24/24 01:57 Attending Provider: Everton Figueroa Admit Provider: Pastora Castro Primary Care Provider: Roland Timmons Other Providers: Angel Hope Apache,Home Care Hospital Stay Data Consultations 10/24/24 02:34 ED Decision to Admit Stat 10/24/24 07:02 Burn CD for patient Stat Diagnostic Imagining Performed 10/23/24 21:45 CT abd pelvis IV con only Stat Pending Results Patient Have Any Pending Studies at Discharge: Yes Discharge Instructions Given to Patient (Per Discharging Provider) follow up as per transplant team Total Time Total Time Spent Total Time Spent (In Minutes): It required greater than 30 minutes to prepare this patient for discharge. Coding Level of Care Code 29610 INP/OBS DISCH >30 MIN Diagnoses Liver abscess K75.0 Liver transplant status Z94.4 Hypokalemia E87.6 Splenic infarct D73.5
[2024-10-24 19:13] LABS: A calco-baum cmplx NotReported Not Detected (NotDetected); Bact fragilis Not Reported Not Detected (NotDetected); C auris Not Reported Not Detected (NotDetected); CTX-M Resistant Gene Not Detected (NotDetected); Calbicans Not Reported Not Detected (NotDetected); Candida krusei Not Reported Not Detected (NotDetected); Cneoformans/gatti Not Reported Not Detected (NotDetected); Cparapsilosis Not Reported Not Detected (NotDetected); E cloacae compx Not Reported Not Detected (NotDetected); Efaecalis Not Reported Not Detected (NotDetected); Efaecium Not Reported Not Detected (NotDetected); Enterobacterales Not Reported Not Detected (NotDetected); Escherichia coli Not Reported Not Detected (NotDetected); H influenzae Not Reported Not Detected (NotDetected); IMP Resistant Gene Not Detected (NotDetected); K aerogenes Not Reported Not Detected (NotDetected); KPC Resistant Gene Not Detected (NotDetected); Koxytoca Not Reported Not Detected (NotDetected); Kpneumoniae grp Not Reported Not Detected (NotDetected); Lmonocyt Not Reported Not Detected (NotDetected); N meningitidis Not Reported Not Detected (NotDetected); NDM Resistant Gene Not Detected (NotDetected); Proteus spp Not Reported Not Detected (NotDetected); Salmonella spp Not Reported Not Detected (NotDetected); Staph lugdunensis Not Reported Not Detected (NotDetected); Staph spp. Not Reported Not Detected (NotDetected); Staphaureus Not Reported Not Detected (NotDetected); Staphepi Not Reported Not Detected (NotDetected); Stenmaltophilia Not Reported Not Detected (NotDetected); Strep agal(GrpB) Not Reported Not Detected (NotDetected); Strep pneum Not Reported Not Detected (NotDetected); Strep pyog (GrpA) Not Reported Not Detected (NotDetected); Strep spp Not Reported Not Detected (NotDetected); VIM Resistant Gene Not Detected (NotDetected)
[2024-10-24] MEDS: PROMETHAZINE 12.5 MG/50.5 ML BAG IV STA (19:39)
[2024-10-24 20:25] VITALS: BP 196/80; PULSE 88; RESP 20; TEMP 99.7; O2SAT 92
--- NOTE | 2024-10-24 22:28 | Communication Note ---
Date of Service: October 24, 2024 Roughly one hour after patient left our facility for transfer to [facility], I was informed by microbiology that she has positive blood cultures. Gram - bacilli in one set, Gram + cocci in the other. Discrepant PCR results, no speciation presently. Called [facility] ([phone]) and spoke to a nurse to sign out these results.
[2024-10-25 13:35] LABS: Blood Culture Id Panel See PCR Comment (NotDetected); P aeruginosa Not Reported DETECTED (NotDetected)
[2024-10-25 13:48] LABS: A calco-baum cmplx NotReported Not Detected (NotDetected); Bact fragilis Not Reported Not Detected (NotDetected); Blood Culture Id Panel See PCR Comment (NotDetected); C auris Not Reported Not Detected (NotDetected); CTX-M Resistant Gene Not Detected (NotDetected); Calbicans Not Reported Not Detected (NotDetected); Candida glabrata Not Reported Not Detected (NotDetected); Candida krusei Not Reported Not Detected (NotDetected); Cneoformans/gatti Not Reported Not Detected (NotDetected); Cparapsilosis Not Reported Not Detected (NotDetected); E cloacae compx Not Reported Not Detected (NotDetected); Efaecalis Not Reported Not Detected (NotDetected); Efaecium Not Reported DETECTED (NotDetected); Enterobacterales Not Reported Not Detected (NotDetected); Escherichia coli Not Reported Not Detected (NotDetected); H influenzae Not Reported Not Detected (NotDetected); IMP Resistant Gene Not Detected (NotDetected); K aerogenes Not Reported Not Detected (NotDetected); KPC Resistant Gene Not Detected (NotDetected); Koxytoca Not Reported Not Detected (NotDetected); Kpneumoniae grp Not Reported Not Detected (NotDetected); Lmonocyt Not Reported Not Detected (NotDetected); N meningitidis Not Reported Not Detected (NotDetected); NDM Resistant Gene Not Detected (NotDetected); P aeruginosa Not Reported DETECTED (NotDetected); Proteus spp Not Reported Not Detected (NotDetected); Salmonella spp Not Reported Not Detected (NotDetected); Staph lugdunensis Not Reported Not Detected (NotDetected); Staph spp. Not Reported Not Detected (NotDetected); Staphaureus Not Reported Not Detected (NotDetected); Staphepi Not Reported Not Detected (NotDetected); Stenmaltophilia Not Reported Not Detected (NotDetected); Strep agal(GrpB) Not Reported Not Detected (NotDetected); Strep pneum Not Reported Not Detected (NotDetected); Strep pyog (GrpA) Not Reported Not Detected (NotDetected); Strep spp Not Reported Not Detected (NotDetected); VIM Resistant Gene Not Detected (NotDetected); VanAB Resistant Gene VRE DETECTED (NotDetected)
[2024-10-25 14:29] LABS: Pseudomonas aeruginosa DETECTED (NotDetected)
[2024-10-25 14:29] LABS: Enterococcus faecium DETECTED (NotDetected)
[2024-10-25 14:30] LABS: Pseudomonas aeruginosa DETECTED (NotDetected)
[2024-10-26 07:29] LABS: Microcytosis Present
[2024-10-26 10:41] LABS: A calco-baum cmplx NotReported Not Detected (NotDetected); Bact fragilis Not Reported Not Detected (NotDetected); Blood Culture Id Panel See PCR Comment (NotDetected); C auris Not Reported Not Detected (NotDetected); CTX-M Resistant Gene Not Detected (NotDetected); Calbicans Not Reported Not Detected (NotDetected); Candida glabrata Not Reported DETECTED (NotDetected); Candida krusei Not Reported Not Detected (NotDetected); Cneoformans/gatti Not Reported Not Detected (NotDetected); Cparapsilosis Not Reported Not Detected (NotDetected); E cloacae compx Not Reported Not Detected (NotDetected); Efaecalis Not Reported Not Detected (NotDetected); Efaecium Not Reported Not Detected (NotDetected); Enterobacterales Not Reported Not Detected (NotDetected); Escherichia coli Not Reported Not Detected (NotDetected); H influenzae Not Reported Not Detected (NotDetected); IMP Resistant Gene Not Detected (NotDetected); K aerogenes Not Reported Not Detected (NotDetected); KPC Resistant Gene Not Detected (NotDetected); Koxytoca Not Reported Not Detected (NotDetected); Kpneumoniae grp Not Reported Not Detected (NotDetected); Lmonocyt Not Reported Not Detected (NotDetected); N meningitidis Not Reported Not Detected (NotDetected); NDM Resistant Gene Not Detected (NotDetected); P aeruginosa Not Reported DETECTED (NotDetected); Proteus spp Not Reported Not Detected (NotDetected); Salmonella spp Not Reported Not Detected (NotDetected); Staph lugdunensis Not Reported Not Detected (NotDetected); Staph spp. Not Reported Not Detected (NotDetected); Staphaureus Not Reported Not Detected (NotDetected); Staphepi Not Reported Not Detected (NotDetected); Stenmaltophilia Not Reported Not Detected (NotDetected); Strep agal(GrpB) Not Reported Not Detected (NotDetected); Strep pneum Not Reported Not Detected (NotDetected); Strep pyog (GrpA) Not Reported Not Detected (NotDetected); Strep spp Not Reported Not Detected (NotDetected); VIM Resistant Gene Not Detected (NotDetected)
[2024-10-26 13:41] LABS: Candida glabrata DETECTED (NotDetected); Pseudomonas aeruginosa DETECTED (NotDetected)
[2024-10-26 13:43] LABS: Candida glabrata Not Reported DETECTED (NotDetected)
[2024-10-26 13:44] LABS: Candida glabrata DETECTED (NotDetected)
== END 2024-10-24 20:50 | disposition short-term general hospital (02) | DRG 441 ==
LOC: SUATTDRO → ED 21:06 → SUATTDRO 10-24 01:57 → 2E 10-24 01:57

== ENCOUNTER 2024-11-06 09:24 | Inpatient (IN) ==
--- OUTSIDE RECORDS SUMMARY | 2024-11-06 09:29 | External Medical Summary ---
Author Name UNSPECIFIED Address Unknown Organization [facility] History of Encounters Reason for Assessment: Transferred to an inpatient facility - patient not discharged from agency Inpatient Facility where the patient been admitted: Hospital
--- OUTSIDE RECORDS SUMMARY | 2024-11-06 09:29 | External Medical Summary ---
Author Name UNSPECIFIED Address Unknown Organization [facility] History of Encounters Reason for Assessment: Resumption [...] to take medication(s) at the correct times if given reminders by another person at the appropriate times Current: Management Of Injec table Medications: Unable to take injectable medication unless administered by another person. 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
--- NOTE | 2024-11-06 09:50 | Emergency Department Note ---
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 Blood Pressure Mean 106 106 Blood Pressure Mean [Left Arm] Pulse Oximetry 94 Oxygen Delivery Method Sepsis Recent Fever Within 48 Hours Sepsis New/Unexplained Change in Mental Status Sepsis Action Taken by Nursing 11/06/24 13:12 11/06/24 13:30 11/06/24 13:30 Temperature Temperature Source Pulse Rate 71 Pulse Rate [Apical] Pulse Rate from SpO2 Sensor 72 Respiratory Rate 23 Respiratory Effort / Characteristics Respiratory Depth Blood Pressure 139/98 139/98 Blood Pressure [Left Arm] Blood Pressure Mean 119 119 Blood Pressure Mean [Left Arm] Pulse Oximetry 93 Oxygen Delivery Method Sepsis Recent Fever Within 48 Hours Sepsis New/Unexplained Change in Mental Status Sepsis Action Taken by Nursing 11/06/24 13:30 11/06/24 13:30 11/06/24 13:30 Temperature Temperature Source Pulse Rate 73 Pulse Rate [Apical] Pulse Rate from SpO2 Sensor 77 Respiratory Rate 17 Respiratory Effort / Characteristics Respiratory Depth Blood Pressure 139/98 139/98 Blood Pressure [Left Arm] Blood Pressure Mean 119 119 Blood Pressure Mean [Left Arm] Pulse Oximetry 93 Oxygen Delivery Method Sepsis Recent Fever Within 48 Hours Sepsis New/Unexplained Change in Mental Status Sepsis Action Taken by Nursing 11/06/24 14:30 11/06/24 14:33 11/06/24 14:57 Temperature Temperature Source Pulse Rate 74 103 H Pulse Rate [Apical] Pulse Rate from SpO2 Sensor Respiratory Rate 24 Respiratory Effort / Characteristics Respiratory Depth Blood Pressure 142/92 H 172/101 H Blood Pressure [Left Arm] Blood Pressure Mean 116 124 Blood Pressure Mean [Left Arm] Pulse Oximetry Oxygen Delivery Method Sepsis Recent Fever Within 48 Hours Sepsis New/Unexplained Change in Mental Status Sepsis Action Taken by Nursing 11/06/24 16:57 11/06/24 18:21 Temperature Temperature Source Pulse Rate 77 88 Pulse Rate [Apical] Pulse Rate from SpO2 Sensor Respiratory Rate 22 Respiratory Effort / Characteristics Respiratory Depth Blood Pressure 167/106 H Blood Pressure [Left Arm] Blood Pressure Mean 126 Blood Pressure Mean [Left Arm] Pulse Oximetry 95 Oxygen Delivery Method Sepsis Recent Fever Within 48 Hours Sepsis New/Unexplained Change in Mental Status Sepsis Action Taken by Longterm Medications Current Medication List: was personally reviewed by me Laboratory Data Attestation: I reviewed the patient's lab results. 11/06/24 09:49 11/06/24 09:49 Lab Results 11/06/24 11/06/24 11/06/24 Range/Units 09:49 10:01 15:05 WBC 10.08 (4.8-10.8) K/ul RBC 2.92 L (4.20-5.40) M/uL Hgb 7.0 L (12.0-16.0) g/dl Hct 23.4 L (37.0-47.0) % MCV 80.1 (80.0-100.0) fL MCH 24.0 L (25.0-34.0) pg MCHC 29.9 L (32.0-36.0) g/dL RDW Std Deviation 66.0 H (36.4-46.3) fL RDW Coeff of [place] 24.4 H (11.5-14.5) % Plt Count 123 L (130-400) K/uL MPV 10.4 (9.4-12.4) fL Immature Gran % (Auto) 1.7 % Neut % (Auto) 78.0 % Lymph % (Auto) 7.3 % [place] % (Auto) 9.9 % Eos % (Auto) 2.5 % Baso % (Auto) 0.6 % Neut # (Auto) 7.86 H (1.40-6.50) K/uL Lymph # (Auto) 0.74 L (1.20-3.40) K/uL [place] # (Auto) 1.00 H (0.11-0.59) K/uL Eos # (Auto) 0.25 (0.00-0.50) K/uL Baso # (Auto) 0.06 (0.00-0.20) K/uL Immature Gran # (Auto) 0.17 (0.01-0.20) K/uL Absolute Nucleated RBC 0.04 (0.00-0.12) K/uL Nucleated RBC % (auto) 0.4 % Polychromasia 1+ Hypochromasia Present Anisocytosis Present Stomatocytes 1+ PT 12.0 (9.0-12.0) Seconds INR 1.1 (0.9-1.1) APTT 29 (21-31) Seconds PTT Ratio 1.1 VBG pH 7.36 (7.36-7.41) VBG pCO2 51 H (38-50) mmHg VBG pO2 37 mmHg VBG HCO3 29 mmol/L VBG O2 Saturation 60.4 % VBG Base Excess 2.4 mEq/L Sodium 135 L (136-145) mmol/L Potassium 4.0 (3.5-5.1) mmol/L Chloride 104 (98-107) mmol/L Carbon Dioxide 31 (21-32) mmol/L Anion Gap 0 L (3-11) BUN 6 (6-23) mg/dl Creatinine 0.50 L (0.6-1.2) mg/dl Est Cr Clr Drug Dosing Not Reportable eGFR 119.27 BUN/Creatinine Ratio 12.0 (10-20) Glucose 122 H (70-99(Fasting)) mg/dl Calcium 8.1 L (8.6-10.3) mg/dl Magnesium 1.8 (1.7-2.4) mg/dl Total Bilirubin 1.9 H (0.2-1.0) mg/dl AST 45 H (13-39) U/L ALT 14 (7-52) U/L Alkaline Phosphatase 263 H (34-104) U/L Ammonia 51.0 (18-72) umol/L Total Creatine Kinase 42 (26-192) U/L Troponin I High Sens < 2.3 (0-14) pg/ml Total Protein 6.2 (6.0-8.3) gm/dl Albumin 2.7 L (3.4-5.0) gm/dl Globulin 3.5 (2.5-4.0) gm/dl Albumin/Globulin Ratio 0.8 L (0.9-2) TSH 7.133 H (0.300-4.500) uIu/ml Free T4 1.26 (0.61-1.60) ng/dl Urine Color Yellow Urine Appearance Clear (Clear) Urine pH 7.0 (4.5-7.5) Ur Specific [place] 1.013 (1.000-1.030) Urine Protein Negative (Negative) Urine Glucose (UA) Negative (Negative) Urine Ketones Negative (Negative) Urine Blood Trace H (Negative) Urine Nitrite Negative (Negative) Urine Bilirubin Negative (Negative) Urine Urobilinogen Negative (Negative) Ur Leukocyte Esterase Negative (Negative) Urine WBC (Auto) 0-5 (0-5) /hpf Urine RBC (Auto) 3-5 H (0-2) /hpf U Hyaline Cast (Auto) 0-2 (0-2) /lpf U Epithel Cells (Auto) 0-2 (0-2) /hpf Urine Bacteria (Auto) None Seen (None Seen) Administered Medications Lactated Ringer's (Lr) 1,000 mls @ 100 mls/hr IV .Q10H CHERYLE Stop: 11/07/24 16:44 Last Admin: 11/06/24 17:26 Dose: 100 mls/hr Documented By: TYRELL Discontinued Medications Meropenem 1,000 mg/ Syringe 20 mls @ 2 mls/min IV ONE ONE; Protocol Stop: 11/06/24 13:28 Last Admin: 11/06/24 14:08 Dose: 2 mls/min Documented By: PADMINI Ioversol (Optiray 320 100ml) 93 ml IV ONCE ONE Stop: 11/06/24 10:18 Last Admin: 11/06/24 10:17 Dose: 93 ml Documented By: DARCI Morphine Sulfate (Morphine Sulfate 4 Mg/Ml 1 Ml Carp\\Vial) 4 mg IV NOW STA Stop: 11/06/24 17:20 Last Admin: 11/06/24 17:26 Dose: 4 mg Documented By: TYRELL Ondansetron HCl (Ondansetron Inj 2 Mg/Ml 2 Ml Vial) 4 mg IV NOW STA Stop: 11/06/24 17:20 Last Admin: 11/06/24 17:26 Dose: 4 mg Documented By: TYRELL Imaging Data Attestation: I personally reviewed and interpreted this imaging study as follows: My Impression: CT of the abdomen and pelvis was obtained in the emergency department. My interpretation is no free air, ascites was noted, final report below. CT of the brain was obtained in the emergency department. My interpretation is no intracranial hemorrhage or mass effect, final report below. Radiologist's Impression: Abdomen/Pelvis CT 11/06/24 09:47 HISTORY: Recent liver abscess. TECHNIQUE: Helical CT imaging of the abdomen was performed following uneventful administration of 93 mL of Optiray 320 IV contrast. Only axial images are provided. COMPARISON: CT of the abdomen pelvis with contrast dated 06/15/2023. FINDINGS: Lung Bases/Inferior Mediastinum: Small right pleural effusion with adjacent atelectasis. The left lung base is clear. Normal heart size. Liver: Postsurgical changes of left liver lobectomy or liver transplant. Mixed gas fluid collection in the right hepatic lobe large mixed gas/fluid collection involving segments 5 and 6 of the right hepatic lobe Measuring at least 10 cm in greatest dimension. There is a pigtail catheter within the superior aspect of the collection. Inferiorly, the collection extends to the liver capsule. This is not present on the prior study from 2022. There are no recent comparison studies. Gallbladder: Surgically absent. There is a biliary stent in place with no biliary ductal dilation. There is a large low-density fluid collection along the undersurface of the liver measuring 8.9 x 6.3 cm On series 8 image 42, which could represent biloma, seroma, or less likely abscess. Spleen: Splenomegaly. Large area of Hypodensity in the anterior and superior spleen on series 8 image 19 concerning for infarct. Additional areas of peripheral low-density in the enlarged spleen. AP dimension of the spleen measuring 15.9 cm. Adrenals: Left adrenal gland is normal. Right adrenal gland is normal. Pancreas: Unremarkable Kidneys: Unremarkable Stomach/Bowel: Postsurgical changes of the stomach. Small and large bowel loops are normal in caliber. Lymph nodes: Unremarkable Vasculature: Unremarkable Pelvis: Urinary bladder is unremarkable. The uterus is absent. Soft Tissues: Large volume of ascites throughout the abdomen. Extensive body wall edema. Fluid within a umbilical hernia. Bones: Unremarkable IMPRESSION: * Postsurgical changes of left liver lobectomy or liver transplant. Mixed gas fluid collection in the right hepatic lobe large mixed gas/fluid collection involving segments 5 and 6 of the right hepatic lobe Measuring at least 10 cm in greatest dimension. There is a pigtail catheter within the superior aspect of the collection. Inferiorly, the collection extends to the liver capsule. This is not present on the prior study from 2022. There are no recent comparison studies. * Biliary stent in place with no biliary ductal dilation. * Large low-density fluid collection along the undersurface of the liver measuring 8.9 x 6.3 cm On series 8 image 42, which could represent biloma, seroma, or less likely abscess. * Splenomegaly. Large area of Hypodensity in the anterior and superior spleen on series 8 image 19 concerning for infarct. Additional areas of peripheral low-density in the enlarged spleen. AP dimension of the spleen measuring 15.9 cm. * Large volume of ascites and extensive body wall edema. * Numerous additional chronic and/or incidental findings as above. Electronically signed by Roland Rendon 11-06-2024 10:47 AM Chest X-Ray 11/06/24 09:47 HISTORY: Weakness TECHNIQUE: Portable AP radiograph of the chest. COMPARISON: Chest radiograph dated 10/06/2023. FINDINGS: Small right pleural effusion and adjacent right basilar opacity. Clear left lung. Left-sided PICC with catheter tip at the superior cavoatrial junction. Cardiomegaly. Left-sided aortic arch. Midline trachea. Cervical spine fusion hardware. IMPRESSION: * New small right pleural effusion and adjacent right basilar opacity, which could reflect atelectasis or pneumonia. * Clear left lung. * Cardiomegaly. Electronically signed by Roland Rendon 11-06-2024 10:[address] 11/06/24 09:47 HISTORY: Altered mental status. TECHNIQUE: CT of the head without contrast. Images are presented in axial, sagittal, and coronal reformats. COMPARISON: Head CT dated 07/21/2023. FINDINGS: No evidence of intracranial hemorrhage, abnormal extra-axial fluid collection, mass effect, or midline shift. Stable left basal ganglia hypodensity, which could represent remote lacunar infarct or enlarged perivascular space. Hyatt-white differentiation is maintained. Globes and orbits are unremarkable. Soft tissues about the skull base and scalp are unremarkable. Paranasal sinuses and mastoid air cells are clear. No calvarial fracture. IMPRESSION: * No acute intracranial findings. * Stable focal area of hypodensity in the left basal ganglia, which may represent remote lacunar infarct or enlarged perivascular space Electronically signed by Roland Rendon 11-06-2024 10:39 AM Discharge Plan Visit Data Chief Complaint: Illness Stated Complaint: HALLUCINATIONS S/P LIVER TRANSPLANT JUN 2024 ED Provider: Davide Chance Discharge Problem: Intra-abdominal abscess, 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, Status post liver transplant, Acute alteration in mental status, Anemia Patient Disposition: Transfer Acute Care Hospital Forms Stand Alone Forms: My [facility] Docst[employer] Prescriptions Prescriptions: No Action acetaminophen [Tylenol Extra Strength] 500 mg tablet 500 mg PO Q6H PRN (Reason: Pain) Hold Instructions: hold due to abnormal LFTs senna 8.6 mg capsule 17.2 mg PO DAILY aspirin 81 mg tablet,chewable 81 mg PO DAILY Hold Instructions: Provider's Order ondansetron HCl 4 mg tablet 4 mg PO Q8H PRN (Reason: n/v) losartan 25 mg tablet 25 mg PO DAILY Hold Instructions: hold due to acute renal failure Rx Instructions: not on lsit bisacodyl [Dulcolax (bisacodyl)] 5 mg tablet,delayed release (DR/EC) 5 mg PO DAILY cyclosporine 100 mg capsule 50 mg PO BID valacyclovir 500 mg Tablet 500 mg PO Q8 PRN (Reason: .BREAKOUTS) triamcinolone acetonide 0.1 % Cream 1 applic EXT TID PRN (Reason: dry, itchy skin on legs/abdominal wall) Qty: 15 0RF Combivent Respimat 20-100 mcg/actuation Mist 1 puff INHALATION QID PRN (Reason: cough/wheeze/shortness of breath) Qty: 1 0RF Rx Instructions: space evenly during waking hours clobetasol 0.05 % solution 1 applic TOPICAL BID PRN (Reason: for scalp) promethazine [Promethegan] 25 mg suppository 25 mg [place] UD PRN (Reason: Nausea) famotidine 40 mg tablet 40 mg PO QAM omeprazole 40 mg Capsule,Delayed Release(Dr/Ec) 40 mg PO BID prochlorperazine maleate [Compazine] 5 mg tablet 5 mg PO QID PRN (Reason: Nausea) alprazolam 1 mg tablet 1 mg PO BID PRN (Reason: Anxiety) Hold Instructions: Provider's Order (DME) OneTouch Verio test strips Strip See Rx Instructions .Route Qty: 100 1RF Rx Instructions: Check blood sugars 1x/day. (DME) lancets [Microlet Lancet] Misc See Rx Instructions .Route Qty: 100 1RF Rx Instructions: Check blood sugars 1x/day. potassium chloride 20 mEq Packet 40 meq PO BID Qty: 120 1RF Hold Instructions: hold Ozempic 1 mg/dose (4 mg/3 mL) pen injector 0.25 mg SUBCUT WK Hold Instructions: Provider's Order Rx Instructions: wednesdays bumetanide 1 mg Tablet 2 mg PO BID17 Qty: 20 0RF methocarbamol [Robaxin] 500 mg Tablet 1,000 mg PO QID levothyroxine 300 mcg tablet 300 mcg PO DAILY sumatriptan succinate 50 mg tablet 50 mg PO DIRECTED MDD 200mg/24 PRN (Reason: Migraine Headache) clopidogrel 75 mg tablet 75 mg PO DAILY amlodipine 5 mg tablet 5 mg PO UD Rx Instructions: doesnt see it on her list but he knows she has a medication for high BP. filled in September 2024 sulfamethoxazole-trimethoprim 800-160 mg tablet 1 tab PO .FRI,FRI,FRI levothyroxine 25 mcg tablet 25 mcg PO DAILY pramipexole 0.5 mg tablet 0.5 mg PO TID linezolid 600 mg tablet 300 mg PO DAILY venlafaxine [Effexor] 37.5 mg Tablet 37.5 mg PO DAILY meropenem 1 gram recon soln 1 g IV Q8H Rx Instructions: 6 am, 2pm, 10 pm ursodiol 300 mg capsule 300 mg PO BID albuterol sulfate 90 mcg/actuation Hfa Aerosol Inhaler 1 puff INHALATION DIRECTED PRN (Reason: sob/wheezing) simethicone 80 mg tablet,chewable 80 mg PO UD Rx Instructions: isnt sure of this one. Not on his list oxycodone 5 mg tablet 5 mg PO DIRECTED PRN (Reason: Pain) micafungin 100 mg recon soln 100 mg IV Q24H Rx Instructions: every 24h/100mg Ubrelvy 50 mg Tablet 50 mg PO DIRECTED PRN (Reason: Migraine Headache) Referrals Referrals: Roland Timmons PA-C [Primary Care Provider] -
[2024-11-06 10:13] LABS: Base Excess VBG 2.4 mEq/L; HCO3 VBG 29 mmol/L; Oxygen Saturation VBG 60.4 %; PCO2 VBG 51 mmHg (38-50); PO2 VBG 37 mmHg; pH VBG 7.36 (7.36-7.41)
[2024-11-06] MEDS: OPTIRAY 320 100ml IV ONE (10:17)
[2024-11-06 10:32] LABS: Alanine Aminotransferase 14 U/L (7-52); Albumin Globulin Ratio 0.8 (0.9-2); Albumin Level 2.7 gm/dl (3.4-5.0); Alkaline Phosphatase 263 U/L (34-104); Anion Gap 0 (3-11); Aspartate Aminotransferase 45 U/L (13-39); Bilirubin,Total 1.9 mg/dl (0.2-1.0); Blood Urea Nitrogen 6 mg/dl (6-23); Calcium 8.1 mg/dl (8.6-10.3); Carbon Dioxide 31 mmol/L (21-32); Chloride 104 mmol/L (98-107); Creatine Kinase 42 U/L (26-192); Globulin 3.5 gm/dl (2.5-4.0); Glucose 122 mg/dl (70-99(Fasting)); Magnesium 1.8 mg/dl (1.7-2.4); Sodium 135 mmol/L (136-145); Total Protein 6.2 gm/dl (6.0-8.3)
--- NOTE | 2024-11-06 10:35 | XRay Report ---
HISTORY: Weakness TECHNIQUE: Portable AP radiograph of the chest. COMPARISON: Chest radiograph dated 10/06/2023. FINDINGS: Small right pleural effusion and adjacent right basilar opacity. Clear left lung. Left-sided PICC with catheter tip at the superior cavoatrial junction. Cardiomegaly. Left-sided aortic arch. Midline trachea. Cervical spine fusion hardware. IMPRESSION: * New small right pleural effusion and adjacent right basilar opacity, which could reflect atelectasis or pneumonia. * Clear left lung. * Cardiomegaly. Electronically signed by Roland Rendon 11-06-2024 10:34 AM
[2024-11-06 10:38] LABS: Troponin I High Sensitivity < 2.3 pg/ml (0-14)
--- NOTE | 2024-11-06 10:40 | CT Scan Report ---
HISTORY: Altered mental status. TECHNIQUE: CT of the head without contrast. Images are presented in axial, sagittal, and coronal reformats. COMPARISON: Head CT dated 07/21/2023. FINDINGS: No evidence of intracranial hemorrhage, abnormal extra-axial fluid collection, mass effect, or midline shift. Stable left basal ganglia hypodensity, which could represent remote lacunar infarct or enlarged perivascular space. Hyatt-white differentiation is maintained. Globes and orbits are unremarkable. Soft tissues about the skull base and scalp are unremarkable. Paranasal sinuses and mastoid air cells are clear. No calvarial fracture. IMPRESSION: * No acute intracranial findings. * Stable focal area of hypodensity in the left basal ganglia, which may represent remote lacunar infarct or enlarged perivascular space Electronically signed by Roland Rendon 11-06-2024 10:39 AM
[2024-11-06 10:47] LABS: Thyroid Stimulating Hormone 7.133 uIu/ml (0.300-4.500)
--- NOTE | 2024-11-06 10:47 | CT Scan Report ---
HISTORY: Recent liver abscess. TECHNIQUE: Helical CT imaging of the abdomen was performed following uneventful administration of 93 mL of Optiray 320 IV contrast. Only axial images are provided. COMPARISON: CT of the abdomen pelvis with contrast dated 06/15/2023. FINDINGS: Lung Bases/Inferior Mediastinum: Small right pleural effusion with adjacent atelectasis. The left lung base is clear. Normal heart size. Liver: Postsurgical changes of left liver lobectomy or liver transplant. Mixed gas fluid collection in the right hepatic lobe large mixed gas/fluid collection involving segments 5 and 6 of the right hepatic lobe Measuring at least 10 cm in greatest dimension. There is a pigtail catheter within the superior aspect of the collection. Inferiorly, the collection extends to the liver capsule. This is not present on the prior study from 2022. There are no recent comparison studies. Gallbladder: Surgically absent. There is a biliary stent in place with no biliary ductal dilation. There is a large low-density fluid collection along the undersurface of the liver measuring 8.9 x 6.3 cm On series 8 image 42, which could represent biloma, seroma, or less likely abscess. Spleen: Splenomegaly. Large area of Hypodensity in the anterior and superior spleen on series 8 image 19 concerning for infarct. Additional areas of peripheral low-density in the enlarged spleen. AP dimension of the spleen measuring 15.9 cm. Adrenals: Left adrenal gland is normal. Right adrenal gland is normal. Pancreas: Unremarkable Kidneys: Unremarkable Stomach/Bowel: Postsurgical changes of the stomach. Small and large bowel loops are normal in caliber. Lymph nodes: Unremarkable Vasculature: Unremarkable Pelvis: Urinary bladder is unremarkable. The uterus is absent. Soft Tissues: Large volume of ascites throughout the abdomen. Extensive body wall edema. Fluid within a umbilical hernia. Bones: Unremarkable IMPRESSION: * Postsurgical changes of left liver lobectomy or liver transplant. Mixed gas fluid collection in the right hepatic lobe large mixed gas/fluid collection involving segments 5 and 6 of the right hepatic lobe Measuring at least 10 cm in greatest dimension. There is a pigtail catheter within the superior aspect of the collection. Inferiorly, the collection extends to the liver capsule. This is not present on the prior study from 2022. There are no recent comparison studies. * Biliary stent in place with no biliary ductal dilation. * Large low-density fluid collection along the undersurface of the liver measuring 8.9 x 6.3 cm On series 8 image 42, which could represent biloma, seroma, or less likely abscess. * Splenomegaly. Large area of Hypodensity in the anterior and superior spleen on series 8 image 19 concerning for infarct. Additional areas of peripheral low-density in the enlarged spleen. AP dimension of the spleen measuring 15.9 cm. * Large volume of ascites and extensive body wall edema. * Numerous additional chronic and/or incidental findings as above. Electronically signed by Roland Rendon 11-06-2024 10:47 AM
[2024-11-06 10:52] LABS: Hematocrit (blood only) 23.4 % (37.0-47.0); Mean Corpuscular Hgb Conc 29.9 g/dL (32.0-36.0); Mean Corpuscular Volume 80.1 fL (80.0-100.0); Mean Platelet Volume 10.4 fL (9.4-12.4); Nucleated RBC # (auto) 0.04 K/uL (0.00-0.12); Nucleated RBC % (auto) 0.4 %; Platelet Count 123 K/uL (130-400); RDW Coefficient of Variation 24.4 % (11.5-14.5); Red Blood Count 2.92 M/uL (4.20-5.40); White Blood Count 10.08 K/ul (4.8-10.8)
[2024-11-06 10:53] LABS: INR 1.1 (0.9-1.1); Partial Thromboplastin Ratio 1.1; Partial Thromboplastin Time 29 Seconds (21-31)
[2024-11-06 10:59] LABS: Anisocytosis Present; Basophils # (auto) 0.06 K/uL (0.00-0.20); Basophils % (auto) 0.6 %; Eosinophils # (auto) 0.25 K/uL (0.00-0.50); Eosinophils % (auto) 2.5 %; Hypochromasia Present; Immature Granulocytes # (auto) 0.17 K/uL (0.01-0.20); Immature Granulocytes % (auto) 1.7 %; Lymphocytes # (auto) 0.74 K/uL (1.20-3.40); Lymphocytes % (auto) 7.3 %; Monocytes % (auto) 9.9 %; Neutrophils # (auto) 7.86 K/uL (1.40-6.50); Polychromasia 1+; Stomatocytes 1+
[2024-11-06 11:20] LABS: T4 Free Thyroxine 1.26 ng/dl (0.61-1.60)
[2024-11-06] MEDS: MEROPENEM 1,000 MG in SYRINGE 0 ML IV ONE (14:08)
[2024-11-06 15:18] LABS: Appearance Urine Clear (Clear); Bacteria Urine Automated None Seen (None Seen); Bilirubin Urine Negative (Negative); Blood Urine Trace (Negative); Cast Urine Automated 0-2 /lpf (0-2); Color Urine Yellow; Epithelial Cell Urine Auto 0-2 /hpf (0-2); Glucose Urine UA Negative (Negative); Ketones Urine Negative (Negative); Leukocyte Esterase Urine Negative (Negative); Nitrite Urine Negative (Negative); Protein Urine Negative (Negative); Specific Gravity Urine 1.013 (1.000-1.030); Urobilinogen Urine Negative (Negative); WBC Urine Automated 0-5 /hpf (0-5)
--- NOTE | 2024-11-06 16:34 | Emergency Department Note ---
ED Visit Note I assumed care at the change of shift. The patient had presented somnolent. She is on treatment for an intra-abdominal abscess. She has had a liver transplant. The patient is to be transferred to [facility]. She has been accepted to their facility but we are still waiting on a bed assignment. Given the prolonged time in the ED waiting for transfer, I did consult the hospitalist service. They saw the patient in the ED and have written for daily medications and daily care. The patient has been stable here in the ED. She did require a dose of morphine and Zofran for pain control. She was complaining of back pain. At this point, the patient's case is being assumed by Dr. Reyes at the change of shift. The patient is primarily being managed by the on-call hospitalist service while here in the ED. We await notification from [facility] that a bed is available. .
[2024-11-06] MEDS: MoRPHine SULFATE 4 MG/ML 1 ML CARP\\VIAL IV STA (17:26)
[2024-11-06] MEDS: ONDANSETRON INJ 2 MG/ML 2 ML VIAL IV STA (17:26)
[2024-11-06] MEDS: LACTATED RINGER'S 1,000 ML IV SCH (17:26)
--- NOTE | 2024-11-06 17:36 | Hospitalist Consultation ---
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 fracture. IMPRESSION: * No acute intracranial findings. * Stable focal area of hypodensity in the left basal ganglia, which may represent remote lacunar infarct or enlarged perivascular space Electronically signed by Roland Rendon 11-06-2024 10:39 AM ECG Additional Comments: ECG revealed NSR at 76 bpm; QTc 481 PG Care Time/CCT Total # of Minutes Spent Total Time Spent with Patient: Total time spent is greater than 50% in coordination of care (as documented) at patient's floor/unit and/or counseling patient: Coding [place] [address] IN/OBS CONSULT LVL 5,80M Patient Type Established Medical Decision Making High Complexity Diagnoses Acute alteration in mental status R41.82 Status post liver transplant Z94.4 Intra-abdominal abscess K65.1 Anemia D64.9
[2024-11-06] MEDS ORDERED: GLUCAGON FOR INJ 1 MG VIAL SQ PRN (17:40)
[2024-11-06] MEDS ORDERED: DEXTROSE 50% 50 ML SYRINGE IV PRN (17:40)
[2024-11-06] MEDS ORDERED: GLUCOSE 40% GEL 15 GM TUBE PO PRN (17:40)
[2024-11-06] MEDS ORDERED: CARBOHYDRATES FOR HYPOGLYCEMIA PO PRN (17:40)
[2024-11-06] MEDS ORDERED: GLUCOSE 10 TAB/TUBE PO PRN (17:40)
[2024-11-06] MEDS ORDERED: IPRATROPIUM BROMIDE/ALBUTEROL respimat INH INH PRN (18:22)
[2024-11-06] MEDS ORDERED: ALBUTEROL HFA 8 GM INHALER INH PRN ×2 (18:22→21:35)
[2024-11-06] MEDS ORDERED: SUMAtriptan succinate 50 MG TAB PO PRN (18:22)
[2024-11-06] MEDS ORDERED: ALPRAZolam 0.5 MG TABLET PO PRN (18:22)
[2024-11-06] MEDS ORDERED: oxyCODONE HCL IR 5 MG TAB (IMMEDIATE RELEASE) PO PRN (18:22)
[2024-11-06] MEDS ORDERED: SIMETHICONE 80 MG CHEW PO PRN (18:30)
[2024-11-06 19:15] LABS: Pregnancy Test, Serum Negative (Negative)
[2024-11-06] MEDS ORDERED: SODIUM CHLORIDE 0.9% 50 ML IV PRN (19:26)
[2024-11-06] MEDS ORDERED: SODIUM CHLORIDE 0.9% 100 ML IV PRN (19:26)
[2024-11-06] MEDS: MICAFUNGIN 100 MG IV SCH (19:38)
[2024-11-06] MEDS: BUMETANIDE 1 MG TAB PO ONE ×2 (19:38→19:43)
[2024-11-06 20:11] LABS: Amphetamines+Metham, Urine Neg (Neg); Barbiturates, Urine Neg (Neg); Benzodiazepine, Urine Neg (Neg); Cocaine, Urine Neg (Neg); Fentanyl, Urine Neg (Neg); MDMA (Ecstacy), Urine Neg (Neg); Marijuana, Urine Neg (Neg); Methadone, Urine Neg (Neg); Opiate, Urine Neg (Neg); Phencyclidine, Urine Neg (Neg)
[2024-11-06 20:13] LABS: Adenovirus PCR Not Detected (NotDetected); Bordetella parapertussis PCR Not Detected (NotDetected); Bordetella pertussis PCR Not Detected (NotDetected); Chlamydia pneumoniae PCR Not Detected (NotDetected); Coronavirus 229E PCR Not Detected (NotDetected); Coronavirus CoV-2 (COVID19)PCR Not Detected (NotDetected); Coronavirus HKU1 PCR Not Detected (NotDetected); Coronavirus NL63 PCR Not Detected (NotDetected); Coronavirus OC43PCR Not Detected (NotDetected); Human Metapneumovirus PCR Not Detected (NotDetected); Influenza A PCR Not Detected (NotDetected); Influenza B PCR Not Detected (NotDetected); Mycoplasma pneumoniae PCR Not Detected (NotDetected); Parainfluenza Virus 1 PCR Not Detected (NotDetected); Parainfluenza Virus 2 PCR Not Detected (NotDetected); Parainfluenza Virus 3 PCR Not Detected (NotDetected); Parainfluenza Virus 4 PCR Not Detected (NotDetected); Respiratory Syncytial VirusPCR Not Detected (NotDetected); Rhinovirus/Enterovirus PCR Not Detected (NotDetected)
[2024-11-06] MEDS ORDERED: cycloSPORINE (SANDIMMUNE) 25 MG CAP PO SCH (21:00)
[2024-11-06] MEDS ORDERED: IPRATROPIUM BROMIDE HFA INHALER INH PRN (21:35)
[2024-11-06] MEDS ORDERED: MEROPENEM 1,000 MG in SYRINGE 0 ML IV SCH (22:00)
[2024-11-06] MEDS: cycloSPORINE 25 MG CAP PO SCH (22:07)
[2024-11-06] MEDS: PANTOprazole 40 MG TAB PO SCH (22:07)
[2024-11-06] MEDS: ursodioL 300 MG CAP PO SCH (22:08)
[2024-11-06] MEDS: PRAMIPEXOLE DIHYDROCHLO 0.5 MG TAB PO SCH (22:09)
[2024-11-06] MEDS: METHOCARBAMOL 500 MG TABLET PO SCH (22:09)
[2024-11-06] MEDS: POTASSIUM CHLORIDE PWD 20 MEQ PACK PO SCH (22:11)
[2024-11-06] MEDS: amLODIPine BESYLATE 5 MG TAB PO SCH (22:11)
[2024-11-06] MEDS: DAPTOmycin 500 MG in SYRINGE 0 ML IV SCH (22:12)
[2024-11-06] MEDS: MEROPENEM 2,000 MG in SODIUM CHLORIDE 0.9% 60 ML IV SCH (22:14)
--- NOTE | 2024-11-07 00:35 | Emergency Department Note ---
ED Visit Note The patient was taken in signout from Dr. Chance at the change of shift. Patient seen initially by Dr. Bellamy. Please see that note for details of the patient's presentation on 11/06 0925am. The patient is currently being managed primarily by the [facility] [place] [place] hospitalist service as a consultation while awaiting transfer to [facility] in [place] where she has been accepted for transfer but is awaiting a bed assignment. Patient is a 43-year-old woman with a past medical history of a liver transplant at [facility] in [place] which has been complicated by intra-abdominal abscess being treated with IV antibiotics. The patient was signed out to Dr. Conteh at change of shift.
[2024-11-07] MEDS: oxyCODONE HCL IR 5 MG TAB (IMMEDIATE RELEASE) PO PRN (02:00)
[2024-11-07] MEDS: LEVOTHYROXINE SODIUM 150 MCG TABLET PO SCH (06:28)
[2024-11-07] MEDS: LEVOTHYROXINE SODIUM 25 MCG TABLET PO SCH (06:29)
--- NOTE | 2024-11-07 06:56 | Emergency Department Note ---
ED Visit Note Patient is a 43-year-old female with a liver transplant who presents to the ER with altered mental status who is seen evaluated excepted to [facility] currently awaiting a bed. Hospitalist were consulted for admission but elected to manage in the ER via consult. Please see their notes for further details. Discussed with [facility] at 7:20 AM. There is still no bed availability and there is no ETA on an available bed. I discussed with Dr. Rodriguez who agreed to admit the patient and keep the patient under [facility] care until able to transfer. .
[2024-11-07 07:29] LABS: Albumin Globulin Ratio 0.8 (0.9-2); Albumin Level 2.7 gm/dl (3.4-5.0); BUN Creatinine Ratio 8.6 (10-20); Calcium 8.1 mg/dl (8.6-10.3); Creatinine Clr Calc Pharmacy 151.3 ml/min; Globulin 3.5 gm/dl (2.5-4.0); Potassium 3.9 mmol/L (3.5-5.1); Total Protein 6.2 gm/dl (6.0-8.3)
--- NOTE | 2024-11-07 08:15 | History & Physical Report ---
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 hepatotoxicity thus will avoid. if her stay is prolonged will ask pharmacy to order the micafungin. 3. large liver abscess - continue percutaneous drain, continue IV antibiotics. 4. new fluid collection inferior to liver - will need to review with radiologist. Seroma? additional abscess? Biloma? 5. anemia - multifactorial - repeat CBC am, Tx if Hb <7 will inform transplant team if Transfusion is needed 6. check urine drug screen and resp biofire with ?subjective fever at home and altered mental status ammonia and VBG wnl Yan Rodriguez MD PG Care Time/CCT Total # of Minutes Spent Total Time Spent with Patient: Total time spent is greater than 50% in coordination of care (as documented) at patient's floor/unit and/or counseling patient: Coding [place] [address] INT INP/OBS CARE 3/75MIN Patient Type Established Medical Decision Making High Complexity Diagnoses Acute alteration in mental status R41.82 Status post liver transplant Z94.4 Intra-abdominal abscess K65.1 Anemia D64.9
[2024-11-07] MEDS: bisacodyL 5 MG TABEC PO SCH (08:18)
[2024-11-07] MEDS: BUMETANIDE 1 MG TAB PO SCH (08:21)
[2024-11-07] MEDS: CLOPIDOGREL BISULFATE 75 MG TAB PO SCH (08:22)
[2024-11-07] MEDS: LOSARTAN POTASSIUM 25 MG TAB PO SCH (08:24)
[2024-11-07] MEDS: FAMOTIDINE 40 MG TABLET PO SCH (08:24)
[2024-11-07] MEDS: SENNA 8.6 MG TAB PO SCH (08:27)
[2024-11-07] MEDS: VENLAFAXINE HCL 37.5 MG TAB PO SCH (08:28)
[2024-11-07 08:32] LABS: Estimated Average Glucose 103 mg/dl; Hemoglobin A1C 5.2 % (4.5-5.6)
[2024-11-07] MEDS ORDERED: NON-FORMULARY PATIENT'S OWN MED SCH (09:00)
[2024-11-07] MEDS ORDERED: ASPIRIN 81 MG CHEW PO SCH (09:00)
[2024-11-07] MEDS: LIDOCAINE 5% 1 PATCH TD STA (09:31)
[2024-11-07 10:43] LABS: Hematocrit (blood only) 24.2 % (37.0-47.0); Hemoglobin 7.3 g/dl (12.0-16.0); Mean Corpuscular Hemoglobin 24.9 pg (25.0-34.0); Mean Corpuscular Hgb Conc 30.2 g/dL (32.0-36.0); Mean Corpuscular Volume 82.6 fL (80.0-100.0); Nucleated RBC # (auto) 0.05 K/uL (0.00-0.12); Nucleated RBC % (auto) 0.5 %; RDW Coefficient of Variation 25.2 % (11.5-14.5); RDW Standard Deviation 67.8 fL (36.4-46.3); Red Blood Count 2.93 M/uL (4.20-5.40); White Blood Count 10.42 K/ul (4.8-10.8)
[2024-11-07 10:44] LABS: Anisocytosis Present; Basophils # (auto) 0.05 K/uL (0.00-0.20); Basophils % (auto) 0.5 %; Eosinophils # (auto) 0.19 K/uL (0.00-0.50); Eosinophils % (auto) 1.8 %; Hypochromasia Present; Immature Granulocytes # (auto) 0.07 K/uL (0.01-0.20); Immature Granulocytes % (auto) 0.7 %; Lymphocytes # (auto) 0.77 K/uL (1.20-3.40); Lymphocytes % (auto) 7.4 %; Monocytes # (auto) 0.83 K/uL (0.11-0.59); Neutrophils # (auto) 8.51 K/uL (1.40-6.50); Neutrophils % (auto) 81.6 %; Polychromasia 1+; Tear Drop Cells 1+
[2024-11-07] MEDS: ONDANSETRON INJ 2 MG/ML 2 ML VIAL IV PRN (11:50)
--- NOTE | 2024-11-07 11:57 | Electrocardiogram Report ---
Test Reason : Blood Pressure : */* mmHG Vent. Rate : 76 BPM Atrial Rate : 76 BPM P-R Int : 174 ms QRS Dur : 94 ms QT Int : 428 ms P-R-T Axes : 52 139 14 degrees QTcB Int : 481 ms Normal sinus rhythm Low voltage QRS Incomplete right bundle branch block Left posterior fascicular block Prolonged QT Abnormal ECG When compared with ECG of 07-Oct-2024 19:17, Left posterior fascicular block is now Present Incomplete right bundle branch block is now Present T wave inversion now evident in Anterior leads Confirmed by Mikal Blue ([id number]) on 11/07/2024 11:56:36 AM Referred By: REFERRED SELF Confirmed By: Mikal Blue
[2024-11-07 13:19] VITALS: PULSE 84
[2024-11-07 13:39] VITALS: BP 131/95; RESP 20; TEMP 98.1; O2SAT 95
[2024-11-07] MEDS: MICAFUNGIN SODIUM 100 MG VIAL IV SCH (16:31)
--- NOTE | 2024-11-07 17:59 | Discharge Summary ---
Discharge Summary Date of Service November 07, 2024 Principal Dx & Hospital Course #1 = Principal Diagnosis (1) Acute alteration in mental status: Ms Gutiérrez presented with hallucinations and confusion of about [address] head was negative for acute findings Urine drug screen was negative Respiratory BioFire was negative u/a not suggestive of UTI Blood cultures were collected on 11/06 and remained negative during her brief stay She denied any changes in her chronic psychotropic medications (xanax, effexor, etc) Chest x-ray without any pneumonia Ammonia level was wnl and she had no clinical evidence of hepatic encephalopathy VBG did not show hypercapnia Mental status improved within 12-24 hours of presentation with supportive care alone Thus, exact etiology of her altered mental status was uncertain Differential includes side effects from her antibiotics vs delirium in the setting of recent hospitalization/bacteremia (she became confused 24 hours after discharge from [facility]) vs other etiology Cannot rule out a primary [employer]ACILITY [employer]MINISTRATOR event (e.g. subacute stroke) but much less likely MRI brain was not pursued during her brief stay (2) Status post liver transplant: performed at [facility] 07/15/24 remains on cyclosporine 50mg BID recently was taken off of cellcept by report (3) Intra-abdominal abscess: developed a liver abscess in mid-September 2024 which led to septic shock & bacteremia blood cultures 10/07/24 at [facility] grew klebsiella oxytoca was transferred to [facility] upon discovery of this abscess following transfer had percutaneous drainage catheter placed for the liver abscess and was ultimately discharged home on IV unasyn with doxycycline presented back to [facility] on 10/23/[address] a/p on 10/23/24 showed enlarging liver abscess despite the presence of drainage catheter blood cultures from 10/23/24 at [facility] grew pseudomonas, ca glabrata, and VRE was transferred back to [facility] for ongoing care was later discharged to home ~11/03/24 on combination of IV meropenem, PO linezolid, and IV micafungin via PICC line CT abd/pelvis this admission shows stable to slightly decreased size of the liver abscess with percutaneous catheter in proper position same CT showed a biliary stent unchanged from prior imaging; no biliary ductal dilatation was seen a second fluid collection inferior to the liver is about the same size in comparison to CT done on 10/23/24; this 2nd fluid collection may be a seroma vs biloma vs other during the 11/06-11/07 stay at [facility] she was continued on IV meropenem, IV micafungin, and IV daptomycin was used in ghulam of zyvox while awaiting repeat blood cultures blood cultures from 11/06/24 were negative, fortunately (4) Anemia: discharge hemoglobin was 7.3 she had no overt signs of GI bleeding during this brief visit she did not receive transfusional support while here (5) Diarrhea: patient reported diarrhea at home prior to presentation at [facility] stool c diff was ordered, but she had no diarrhea at [facility] to process consider c diff testing upon transfer to [facility] (6) Hypothyroidism, postablative: TSH 7.1 while here her home synthroid dose of 325mcg daily was not adjusted would recommend repeat TFTs in about 4 weeks and can make adjustments then if necessary (7) Abnormal LFTs: patient with mild elevation of total bili, AST, and alk phos with INR 1.1 (8) Abdominal ascites: patient with worsening ascites on exam and on imaging additionally has had worsening LE edema this is despite use of bumex 2mg BID defer hypervolemia management to her transplant team in [place] Admission HPI Per Admitting Provider Chaparrita Gutiérrez is a 43-year-old female with PMH of [place] liver cirrhosis s/p liver transplant at [facility] (07/15/2024), hepatic encephalopathy, occipital neuralgia, depression, and T2DM. Recent [place] admission on 10/08 for septic shock requiring ICU and transfer to [place] (due to liver abscess and transplanted liver). She then returned on 10/24 for recurrence of fever after being discharged from [facility]; was again transferred to [place]. Patient is currently receiving IV antibiotics (meropenem 2 g IV q8h) through her PICC line. Patient (Augie) is at bedside and provides additional history. Patient was just discharged from [place] on Friday. She then began hallucinating on . reports that she was seeing people, and objects. She would be asking for the nurse. At 1 point she began airing out a towel, even though there was no towel there. She also woke up in the middle night and had knocked off the bulb on her biliary tube. Patient does endorse confusion, and while she is alert and oriented x 3, she reports she feels "like I have hepatic encephalopathy again". While she has reported that she felt like she had a fever at home, she did take her temperature earlier and it was normal at 98 F. She does endorse bilateral flank pain and tightness. She also endorses headache/head pressure. She is not on supplemental oxygen at baseline. Patient did not take her regular morning medicine before coming to the emergency department. Has reports she did get her IV ertapenem earlier, but she is normally takes micafungin at 4 PM, and did not receive it yet. She is taking micafungin for history of a bacterial yeast infection in her PICC line. Patient reports she has had blood transfusions at [facility] in the past, and has always done well with them. She also reports she has had diarrhea since leaving the hospital on Friday (black/green stool). No prior history of GI bleeds to her knowledge. Patient has 3 children (18, 21, and 22 years old). ED course: Meropenem 1000 mg IV Morphine sulfate 4 mg IV Zofran 4 mg IV Lactated Ringer 1000 mL IV Discharge Exam gen - NAD, awake, alert mouth - MMM neck - no JVD heart - RRR, s1 s2, 1/6 EDUARDO LSB lungs - CTA b/l abd - markedly distended with ascites, nontender, BS+, no HSM; catheter present right upper quadrant attached to [place]IE bulb with cloudy fluid contained within ext - edema present from feet to thighs, pulses b/l feet 2+ psych - a/o x 3 neuro - no asterixis skin - no jaundice, no generalized rash Discharge Plan Discharge Items Patient Disposition: Transfer Acute Care Hospital Reason For Visit: ALTERED MENTAL STATUS Discharge Diagnosis: 1. altered mental status - improved; exact etiology uncertain 2. liver transplant status 3. liver abscess with drainage catheter in place 4. recent bacteremia 2nd to pseudomonas/VRE/ca glabrata 5. fluid collection inferior to liver - seroma vs biloma vs other - unchanged in size vs 10/23/24 CT abd/pelvis 6. anemia - discharge hemoglobin 7.3 7. ascites 8. hypothyroidism 9. history of diabetes Activity: Resume your previous activity Non-emergency contact: Primary Care Provider Call non-emergency contact if: you have any medication questions Follow-up/Referrals: Roland Timmons PA-C [Primary Care Provider] - Diet: Low Sodium (2gm) Addtl Attending Provider Instructions: Further instructions to follow after your stay at [facility] in [place]. I would like to thank the transplant team at [facility] for accepting Ms Gutiérrez in transfer for ongoing care. Pending Studies at Discharge: Yes Studies:: blood cultures but thus far negative Stand-Alone Forms: My [facility] Skilled Items Patient informed of condition?: Yes DNR: No Discharge Level of Care: Other Communicable Disease: Yes Discharge Prognosis: Stable Lines: PICC Urinary Catheter: No Medications and DC Order Prescriptions: Continued senna 8.6 mg capsule 17.2 mg PO DAILY aspirin 81 mg tablet,chewable 81 mg PO DAILY Hold Instructions: Provider's Order ondansetron HCl 4 mg tablet 4 mg PO Q8H PRN (Reason: n/v) losartan 25 mg tablet 25 mg PO DAILY Hold Instructions: hold due to acute renal failure Rx Instructions: not on lsit bisacodyl [Dulcolax (bisacodyl)] 5 mg tablet,delayed release (DR/EC) 5 mg PO DAILY cyclosporine 100 mg capsule 50 mg PO BID valacyclovir 500 mg Tablet 500 mg PO Q8 PRN (Reason: .BREAKOUTS) triamcinolone acetonide 0.1 % Cream 1 applic EXT TID PRN (Reason: dry, itchy skin on legs/abdominal wall) Qty: 15 0RF Combivent Respimat 20-100 mcg/actuation Mist 1 puff INHALATION QID PRN (Reason: cough/wheeze/shortness of breath) Qty: 1 0RF Rx Instructions: space evenly during waking hours clobetasol 0.05 % solution 1 applic TOPICAL BID PRN (Reason: for scalp) promethazine [Promethegan] 25 mg suppository 25 mg IL UD PRN (Reason: Nausea) famotidine 40 mg tablet 40 mg PO QAM omeprazole 40 mg Capsule,Delayed Release(Dr/Ec) 40 mg PO BID prochlorperazine maleate [Compazine] 5 mg tablet 5 mg PO QID PRN (Reason: Nausea) alprazolam 1 mg tablet 1 mg PO BID PRN (Reason: Anxiety) Hold Instructions: Provider's Order (DME) OneTouch Verio test strips Strip See Rx Instructions .Route Qty: 100 1RF Rx Instructions: Check blood sugars 1x/day. (DME) lancets [Microlet Lancet] Misc See Rx Instructions .Route Qty: 100 1RF Rx Instructions: Check blood sugars 1x/day. potassium chloride 20 mEq Packet 40 meq PO BID Qty: 120 1RF Hold Instructions: hold Ozempic 1 mg/dose (4 mg/3 mL) pen injector 0.25 mg SUBCUT WK Hold Instructions: Provider's Order Rx Instructions: wednesdays bumetanide 1 mg Tablet 2 mg PO BID17 Qty: 20 0RF methocarbamol [Robaxin] 500 mg Tablet 1,000 mg PO QID levothyroxine 300 mcg tablet 300 mcg PO DAILY sumatriptan succinate 50 mg tablet 50 mg PO DIRECTED MDD 200mg/24 PRN (Reason: Migraine Headache) clopidogrel 75 mg tablet 75 mg PO DAILY sulfamethoxazole-trimethoprim 800-160 mg tablet 1 tab PO .FRI,FRI,FRI levothyroxine 25 mcg tablet 25 mcg PO DAILY pramipexole 0.5 mg tablet 0.5 mg PO TID linezolid 600 mg tablet 300 mg PO DAILY venlafaxine [Effexor] 37.5 mg Tablet 37.5 mg PO DAILY meropenem 1 gram recon soln 1 g IV Q8H Rx Instructions: 6 am, 2pm, 10 pm ursodiol 300 mg capsule 300 mg PO BID albuterol sulfate 90 mcg/actuation Hfa Aerosol Inhaler 1 puff INHALATION DIRECTED PRN (Reason: sob/wheezing) simethicone 80 mg tablet,chewable 80 mg PO UD Rx Instructions: isnt sure of this one. Not on his list oxycodone 5 mg tablet 5 mg PO DIRECTED PRN (Reason: Pain) micafungin 100 mg recon soln 100 mg IV Q24H Rx Instructions: every 24h/100mg Ubrelvy 50 mg Tablet 50 mg PO DIRECTED PRN (Reason: Migraine Headache) acetaminophen [Tylenol Extra Strength] 500 mg tablet 500 mg PO Q6H PRN (Reason: Pain) Qty: 0 0RF Rx Instructions: maximum 2000mg in 24 hours Changed amlodipine 5 mg tablet 5 mg PO DAILY Qty: 0 0RF Discharge Orders: Discharge Order (Routine); Ordered 11/07/24 Ordered By: Yan Rodriguez Admission Data Admit Date/Time: 11/07/24 07:59 Attending Provider: Yan Rodriguez Admit Provider: Yan Rodriguez Primary Care Provider: Roland Timmons Other Providers: Forrest Husain Hospital Stay Data Diagnostic Imagining Performed Abdomen/Pelvis CT 11/06/24 09:47 HISTORY: Recent liver abscess. TECHNIQUE: Helical CT imaging of the abdomen was performed following uneventful administration of 93 mL of Optiray 320 IV contrast. Only axial images are provided. COMPARISON: CT of the abdomen pelvis with contrast dated 06/15/2023. FINDINGS: Lung Bases/Inferior Mediastinum: Small right pleural effusion with adjacent atelectasis. The left lung base is clear. Normal heart size. Liver: Postsurgical changes of left liver lobectomy or liver transplant. Mixed gas fluid collection in the right hepatic lobe large mixed gas/fluid collection involving segments 5 and 6 of the right hepatic lobe Measuring at least 10 cm in greatest dimension. There is a pigtail catheter within the superior aspect of the collection. Inferiorly, the collection extends to the liver capsule. This is not present on the prior study from 2022. There are no recent comparison studies. Gallbladder: Surgically absent. There is a biliary stent in place with no biliary ductal dilation. There is a large low-density fluid collection along the undersurface of the liver measuring 8.9 x 6.3 cm On series 8 image 42, which could represent biloma, seroma, or less likely abscess. Spleen: Splenomegaly. Large area of Hypodensity in the anterior and superior spleen on series 8 image 19 concerning for infarct. Additional areas of peripheral low-density in the enlarged spleen. AP dimension of the spleen measuring 15.9 cm. Adrenals: Left adrenal gland is normal. Right adrenal gland is normal. Pancreas: Unremarkable Kidneys: Unremarkable Stomach/Bowel: Postsurgical changes of the stomach. Small and large bowel loops are normal in caliber. Lymph nodes: Unremarkable Vasculature: Unremarkable Pelvis: Urinary bladder is unremarkable. The uterus is absent. Soft Tissues: Large volume of ascites throughout the abdomen. Extensive body wall edema. Fluid within a umbilical hernia. Bones: Unremarkable IMPRESSION: * Postsurgical changes of left liver lobectomy or liver transplant. Mixed gas fluid collection in the right hepatic lobe large mixed gas/fluid collection involving segments 5 and 6 of the right hepatic lobe Measuring at least 10 cm in greatest dimension. There is a pigtail catheter within the superior aspect of the collection. Inferiorly, the collection extends to the liver capsule. This is not present on the prior study from 2022. There are no recent comparison studies. * Biliary stent in place with no biliary ductal dilation. * Large low-density fluid collection along the undersurface of the liver measuring 8.9 x 6.3 cm On series 8 image 42, which could represent biloma, seroma, or less likely abscess. * Splenomegaly. Large area of Hypodensity in the anterior and superior spleen on series 8 image 19 concerning for infarct. Additional areas of peripheral low-density in the enlarged spleen. AP dimension of the spleen measuring 15.9 cm. * Large volume of ascites and extensive body wall edema. * Numerous additional chronic and/or incidental findings as above. Electronically signed by Roland Rendon 11-06-2024 10:47 AM Chest X-Ray 11/06/24 09:47 HISTORY: Weakness TECHNIQUE: Portable AP radiograph of the chest. COMPARISON: Chest radiograph dated 10/06/2023. FINDINGS: Small right pleural effusion and adjacent right basilar opacity. Clear left lung. Left-sided PICC with catheter tip at the superior cavoatrial junction. Cardiomegaly. Left-sided aortic arch. Midline trachea. Cervical spine fusion hardware. IMPRESSION: * New small right pleural effusion and adjacent right basilar opacity, which could reflect atelectasis or pneumonia. * Clear left lung. * Cardiomegaly. Electronically signed by Rolnad Rendon 11-06-2024 10:[address] 11/06/24 09:47 HISTORY: Altered mental status. TECHNIQUE: CT of the head without contrast. Images are presented in axial, sagittal, and coronal reformats. COMPARISON: Head CT dated 07/21/2023. FINDINGS: No evidence of intracranial hemorrhage, abnormal extra-axial fluid collection, mass effect, or midline shift. Stable left basal ganglia hypodensity, which could represent remote lacunar infarct or enlarged perivascular space. Hyatt-white differentiation is maintained. Globes and orbits are unremarkable. Soft tissues about the skull base and scalp are unremarkable. Paranasal sinuses and mastoid air cells are clear. No calvarial fracture. IMPRESSION: * No acute intracranial findings. * Stable focal area of hypodensity in the left basal ganglia, which may represent remote lacunar infarct or enlarged perivascular space Electronically signed by Roland Rendon 03-15-2025 10:39 AM Pending Results Patient Have Any Pending Studies at Discharge: Yes Discharge Instructions Given to Patient (Per Discharging Provider) Further instructions to follow after your stay at [facility] in [place]. I would like to thank the transplant team at [facility] for accepting Ms Gutiérrez in transfer for ongoing care. Total Time Total Time Spent Total Time Spent (In Minutes): 45 Coding Level of Care Code 24391 INP/OBS DISCH >30 MIN Diagnoses Acute alteration in mental status R41.82 Status post liver transplant Z94.4 Intra-abdominal abscess K65.1 Anemia D64.9 Diarrhea R19.7 Hypothyroidism, postablative E89.0 Abnormal LFTs R79.89 Abdominal ascites R18.8 Ascites type: other type
[2024-11-08] MEDS ORDERED: SULFAMETHOXAZOLE/TRIMETHOPRIM DS 800/160MG TAB PO SCH (09:00)
== END 2024-11-07 19:40 | disposition short-term general hospital (02) | DRG 948 ==
LOC: ED 09:24 → EDINP 11-07 07:59 → 2E 11-07 11:19
DX: Z86.73 Personal history of transient ischemic attack (TIA), and cerebral infarction without residual deficits; R19.7 Diarrhea, unspecified; Z79.85 Long-term (current) use of injectable non-insulin antidiabetic drugs; R41.82 Altered mental status, unspecified; Y71.2 Prosthetic and other implants, materials and accessory cardiovascular devices associated with adverse incidents; Z79.890 Hormone replacement therapy; T82.7XXA Infection and inflammatory reaction due to other cardiac and vascular devices, implants and grafts, initial encounter; D64.9 Anemia, unspecified; Z79.82 Long term (current) use of aspirin; Z88.8 Allergy status to other drugs, medicaments and biological substances; Z87.891 Personal history of nicotine dependence; E03.8 Other specified hypothyroidism; Z79.899 Other long term (current) drug therapy; T86.43 Liver transplant infection; G93.40 Encephalopathy, unspecified; Z88.5 Allergy status to narcotic agent; K21.9 Gastro-esophageal reflux disease without esophagitis

== ENCOUNTER 2024-12-03 08:31 | Inpatient (IN) ==
[2024-12-03] MEDS: OPTIRAY 320 100ml IV ONE (09:21)
[2024-12-03 09:26] LABS: iSTAT Creatinine 0.6 mg/dl (0.6-1.3); iSTAT Hemoglobin 8.5 g/dl (12.0-16.0); iSTAT Ionized Calcium 1.15 mmol/l (1.12-1.32); iSTAT Potassium 4.1 mmol/L (3.3-5.0)
--- NOTE | 2024-12-03 09:27 | Emergency Department Note ---
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 Electronically signed by: Guero Garcia M.D. 12/03/2024 9:[address] 12/03/24 08:52 CT SCAN OF THE CERVICAL SPINE CLINICAL HISTORY: Multiple falls. COMPARISON STUDY: Cervical spine CT March 26, 2023. TECHNIQUE: CT scan of the cervical spine is performed from the skull base to the upper thoracic spine. Images are reviewed in the axial, sagittal, and coronal planes. IV contrast was not administered for this examination. A dose lowering technique was utilized adhering to the principles of ALARA. CT DOSE: 3650.34 mGy.cm FINDINGS: There are stable findings following C5-C7 anterior and posterior fusions. Hardware is intact. No acute cervical spine fractures are present. There is mild disc space narrowing and moderate osteophytosis within the cervical spine. There is no prevertebral edema. IMPRESSION: 1. No acute cervical spine fracture or subluxation. 2. Stable findings following C5-C7 anterior and posterior fusions. ACT 112: Negative or not required by law. Electronically signed by: Guero Garcia M.D. 12/03/2024 10:20 AM Abdomen/Pelvis CT 12/03/24 09:00 CT SCAN OF THE ABDOMEN AND PELVIS WITH IV CONTRAST CLINICAL HISTORY: Multiple falls. Liver transplant in June. COMPARISON STUDY: CT of the abdomen and pelvis November 06, 2024. TECHNIQUE: Following the IV administration of 94 cc of Optiray 320, CT scan of the abdomen and pelvis is performed from the lung bases to the proximal femora. Images are reviewed in the axial, sagittal, and coronal planes. IV contrast was administered without complication. A dose lowering technique was utilized adhering to the principles of ALARA. FINDINGS: A moderate to large right pleural effusion has increased in size since CT of November 06, 2024. Extensive body wall edema has decreased since that exam. A small amount of ascites within the abdomen and pelvis is also decreased since prior CT. Transplanted liver is noted. A percutaneous drain within a gas and fluid containing right hepatic lobe collection is noted. The collection has mildly decreased in size since prior CT. This now measures 4.7 x 1.5 cm. Biliary catheter remains in place. There are no new hepatic collections. 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 These are shown on prior exam. Splenomegaly is unchanged. Abdominal varices are again noted. Adrenal glands, kidneys and pancreas are normal. There is no evidence for traumatic injury to the liver, spleen, adrenal glands, kidneys or pancreas. There is no hydronephrosis. Caliber and wall thickness of small and large bowel are normal. There is no evidence for a bowel obstruction. No lymphadenopathy. Major vasculature is patent. There are no acute fractures within the lumbar spine, pelvis or hips. Postoperative findings suggestive of gastric sleeve are again noted. IMPRESSION: 1. No acute traumatic findings within the abdomen or pelvis. 2. Status post liver transplant. Redemonstration of a percutaneous drain within a right hepatic lobe collection suggestive of an abscess which has mildly decreased in size since prior CT. 3. Redemonstration of several splenic infarcts. Splenomegaly and varices. A small amount of ascites, decreased since prior exam. 4. Extensive body wall edema, improved since prior exam. 5. Moderate to large right pleural effusion, increased since prior CT. ACT 112: Negative or not required by law. Electronically signed by: Guero Garcia M.D. 12/03/2024 10:[address] 12/03/24 09:00 CT SCAN OF THE CHEST WITH IV CONTRAST CLINICAL HISTORY: Multiple falls. Liver transplant in June. COMPARISON STUDY: Chest radiograph November 06, 2024. Chest CT February 16, 2024. CT of the abdomen and pelvis November 06, 2024. TECHNIQUE: Following the IV administration of 94 cc of Optiray 320, CT scan of the thorax was performed from the thoracic inlet to the upper abdomen. Images are reviewed in the axial, sagittal, and coronal planes. IV contrast was administered without complication. A dose lowering technique was utilized adhering to the principles of ALARA. FINDINGS: A left PICC is in place. There is no evidence for traumatic injury to the thoracic aorta. There is no pericardial effusion. No thoracic lymphadenopathy is present. There is no pneumothorax. A moderate to large right pleural effusion has significantly increased in size since abdominal CT of November 06, 2024. Subpleural opacities within the right lungs favor atelectasis. There is no consolidation to suggest pneumonia. Prominent right cardiophrenic angle lymph nodes are similar to abdominal CT of November 06, 2024. Right anterior upper chest wall skin thickening with subcutaneous stranding and several nodular densities measuring up to 1.7 cm is noted. There are collaterals within the chest wall. The transplanted liver, biliary drain, hepatic drain, splenomegaly and suspected splenic infarcts are better depicted on the CT of the abdomen and pelvis which will be reported separately. No acute rib or thoracic spine fractures are present. IMPRESSION: 1. Right upper anterior chest wall skin thickening, subcutaneous stranding and small nodular densities. The findings favor a contusion. An infectious process could appear similar although is considered less likely. 2. Moderate to large right pleural effusion, significantly increased in size since abdominal CT of November 06, 2024. 3. No pneumothorax. No acute fractures within the bony thorax. 4. Transplanted liver, biliary drain, hepatic fluid collection containing a drain, splenomegaly and suspected splenic infarcts better depicted on the CT of the abdomen and pelvis which will be reported separately. ACT 112: Negative or not required by law. Electronically signed by: Guero Garcia M.D. 12/03/2024 9:58 AM Chest X-Ray 12/03/24 16:22 EXAM: Radiograph of the Chest 1 View INDICATION: Line placement TECHNIQUE: Frontal view of the chest. COMPARISON: 11/06/2024 FINDINGS: Lungs and pleural spaces: Significant increase in small to moderate right pleural effusion and dense right basilar airspace consolidation. No pneumothorax. Heart: Shape and configuration within normal limits allowing for technique. Mediastinum: Normal contour. Bones/joints: Visualized portions of anterior and posterior lower cervical fusion hardware grossly intact. Stable deformity, possibly postoperative, of the distal right clavicle which occurred between the 08/05/2024 and 11/06/2024 exams. No acute osseous abnormality. Soft tissues: No abnormality noted. No radiopaque foreign body noted. Tubes, lines and devices: Left peripherally inserted central catheter (PICC) tip in the mid superior vena cava. Stable right basilar pigtail pleural drain. Upper abdomen: No abnormality noted. IMPRESSION: 1. Lines and tubes as above. 2. Significant increase in small to moderate right pleural effusion and dense right basilar airspace consolidation. Compressive atelectasis with or without mucous plugging considered most likely. Pneumonia not excluded. ACT 112: N/A Electronically signed by Christen Castellon 12-03-2024 5:01 PM Discharge Plan Visit Data Chief Complaint: Head Injury, Minor Stated Complaint: FELL, HIT HEAD, VISION DOUBLE ED Provider: Alyce Aaron ED Midlevel Provider: Manisha Foreman Discharge Problem: Pleural effusion, Hypoxia, Liver transplant recipient Patient Disposition: Transfer Acute Care Hospital Forms Stand Alone Forms: My [facility] mCASH Prescriptions Prescriptions: No Action senna 8.6 mg capsule 17.2 mg PO UD Rx Instructions: 17.2 mg po daily. per , medication is on hold due to antibiotics aspirin 81 mg tablet,chewable 81 mg PO DAILY Hold Instructions: Provider's Order losartan 25 mg tablet 25 mg PO UD Hold Instructions: hold due to acute renal failure Rx Instructions: 25 mg po daily. not on husbands list from November 19 bisacodyl [Dulcolax (bisacodyl)] 5 mg tablet,delayed release (DR/EC) 5 mg PO UD Rx Instructions: currently on hold due to antibiotics cyclosporine 100 mg capsule 50 mg PO BID valacyclovir 500 mg Tablet 500 mg PO Q8 PRN (Reason: .BREAKOUTS) triamcinolone acetonide 0.1 % Cream 1 applic EXT TID PRN (Reason: dry, itchy skin on legs/abdominal wall) Qty: 15 0RF Rx Instructions: isnt sure if pt still uses this medication clobetasol 0.05 % solution 1 applic TOPICAL BID PRN (Reason: for scalp) promethazine [Promethegan] 25 mg suppository 25 mg VA UD PRN (Reason: Nausea) famotidine 40 mg tablet 40 mg PO UD Rx Instructions: 40 mg po qam. is unsure not listed on his current list from November 19 omeprazole 40 mg Capsule,Delayed Release(Dr/Ec) 40 mg PO UD Rx Instructions: 40 mg po bid. sounds familiar to but he isnt sure if she still takes it prochlorperazine maleate [Compazine] 5 mg tablet 5 mg PO QID PRN (Reason: Nausea) alprazolam 1 mg tablet 1 mg PO BID PRN (Reason: Anxiety) Hold Instructions: Provider's Order (DME) OneTouch Verio test strips Strip See Rx Instructions .Route Qty: 100 1RF Rx Instructions: Check blood sugars 1x/day. (DME) lancets [Microlet Lancet] Misc See Rx Instructions .Route Qty: 100 1RF Rx Instructions: Check blood sugars 1x/day. potassium chloride 20 mEq Packet 40 meq PO BID Qty: 120 1RF Hold Instructions: hold venlafaxine 150 mg capsule,extended release 24hr 150 mg PO DAILY gabapentin 300 mg Capsule 300 mg PO TID tizanidine 4 mg Tablet 4 mg PO UD Rx Instructions: per , he thinks pt takes this medication but isnt sure. no fill history tramadol 50 mg tablet 50 mg PO UD PRN (Reason: Pain) Rx Instructions: per , he thinks pt takes this medication but isnt sure. Ozempic 1 mg/dose (4 mg/3 mL) pen injector 0.25 mg SUBCUT UD Hold Instructions: Provider's Order Rx Instructions: per medication is still prescribed but pt hasnt had shot in awhile. isnt sure of last date. wednesdays bumetanide 1 mg Tablet 2 mg PO BID17 Qty: 20 0RF methocarbamol 500 mg Tablet 1,000 mg PO UD Rx Instructions: 1000 mg po qid. knows pt has medication but isnt sure if she still takes it levothyroxine 300 mcg tablet 300 mcg PO DAILY sumatriptan succinate 50 mg tablet 50 mg PO DIRECTED MDD 200mg/24 PRN (Reason: Migraine Headache) clopidogrel 75 mg tablet 75 mg PO DAILY sulfamethoxazole-trimethoprim 800-160 mg tablet 1 tab PO .MON,WED,FRI levothyroxine 25 mcg tablet 25 mcg PO DAILY pramipexole 0.5 mg tablet 0.5 mg PO QID linezolid 600 mg tablet 300 mg PO BID venlafaxine 37.5 mg Tablet 75 mg PO DAILY meropenem 1 gram recon soln 1 g IV Q8H Rx Instructions: 6 am, 2pm, 10 pm ursodiol 300 mg capsule 300 mg PO BID albuterol sulfate 90 mcg/actuation Hfa Aerosol Inhaler 1 puff INHALATION DIRECTED PRN (Reason: sob/wheezing) simethicone 80 mg tablet,chewable 80 mg PO UD PRN (Reason: Other) oxycodone 5 mg tablet 5 mg PO DIRECTED PRN (Reason: Pain) micafungin 100 mg recon soln 100 mg IV Q24H Rx Instructions: every 24h/100mg Ubrelvy 50 mg Tablet 50 mg PO DIRECTED PRN (Reason: Migraine Headache) acetaminophen [Tylenol Extra Strength] 500 mg tablet 500 mg PO Q6H PRN (Reason: Pain) Qty: 0 0RF Rx Instructions: maximum 2000mg in 24 hours Referrals Referrals: Roland Timmons PA-C [Primary Care Provider] -
[2024-12-03 09:45] LABS: INR 1.1 (0.9-1.1); Partial Thromboplastin Ratio 0.9; Partial Thromboplastin Time 25 Seconds (21-31); Prothrombin Time 11.7 Seconds (9.0-12.0)
--- NOTE | 2024-12-03 09:49 | CT Scan Report ---
CT SCAN OF THE BRAIN WITHOUT IV CONTRAST CLINICAL HISTORY: Fall. COMPARISON STUDY: Head CT November 06, 2024. TECHNIQUE: Unenhanced axial CT scan of the brain was performed from the vertex to the skull base. A dose lowering technique was utilized adhering to the principles of ALARA. FINDINGS: Brain parenchyma: Mild motion artifact. No acute intracranial hemorrhage, midline shift or mass effec t is present. Hyatt-white matter differentiation is preserved. There are no extra-axial fluid collecti ons. There are no findings to suggest acute dural sinus thrombosis or acute territorial infarct. Ventricles, sulci, cisterns: There is no hydrocephalus. The basal cisterns are patent. Calvarium: There is a small right forehead contusion. There are no calvarial fractures. Sinuses and mastoids: The visualized paranasal sinuses are clear. The mastoid air cells are well pneu matized. Orbits: The bony orbits are grossly intact. IMPRESSION: 1. No acute intracranial findings. 2. Small right forehead contusion. No calvarial fractures. ACT 112: Negative or not required by law. Electronically signed by: Guero Garcia M.D. 12/03/2024 9:47 AM
--- NOTE | 2024-12-03 10:00 | CT Scan Report ---
CT SCAN OF THE CHEST WITH IV CONTRAST CLINICAL HISTORY: Multiple falls. Liver transplant in June. COMPARISON STUDY: Chest radiograph November 06, 2024. Chest CT February 16, 2024. CT of the abdomen and pel vis November 06, 2024. TECHNIQUE: Following the IV administration of 94 cc of Optiray 320, CT scan of the thorax was perform ed from the thoracic inlet to the upper abdomen. Images are reviewed in the axial, sagittal, and alanna nal planes. IV contrast was administered without complication. A dose lowering technique was utilize d adhering to the principles of ALARA. FINDINGS: A left PICC is in place. There is no evidence for traumatic injury to the thoracic aorta. T here is no pericardial effusion. No thoracic lymphadenopathy is present. There is no pneumothorax. A moderate to large right pleural effusion has significantly increased in size since abdominal CT of [facility] 2024. Subpleural opacities within the right lungs favor atelectasis. There is no consolidatio n to suggest pneumonia. Prominent right cardiophrenic angle lymph nodes are similar to abdominal CT o f November 06, 2024. Right anterior upper chest wall skin thickening with subcutaneous stranding and sev eral nodular densities measuring up to 1.7 cm is noted. There are collaterals within the chest wall. The transplanted liver, biliary drain, hepatic drain, splenomegaly and suspected splenic infarcts are better depicted on the CT of the abdomen and pelvis which will be reported separately. No acute rib or thoracic spine fractures are present. IMPRESSION: 1. Right upper anterior chest wall skin thickening, subcutaneous stranding and small nodular densitie s. The findings favor a contusion. An infectious process could appear similar although is considered less likely. 2. Moderate to large right pleural effusion, significantly increased in size since abdominal CT of [facility] 2024. 3. No pneumothorax. No acute fractures within the bony thorax. 4. Transplanted liver, biliary drain, hepatic fluid collection containing a drain, splenomegaly and s uspected splenic infarcts better depicted on the CT of the abdomen and pelvis which will be reported separately. ACT 112: Negative or not required by law. Electronically signed by: Guero Garcia M.D. 12/03/2024 9:58 AM
[2024-12-03 10:03] LABS: Anisocytosis Present; Basophils # (auto) 0.03 K/uL (0.00-0.20); Basophils % (auto) 0.5 %; Eosinophils % (auto) 13.4 %; Hematocrit (blood only) 26.2 % (37.0-47.0); Hemoglobin 7.9 g/dl (12.0-16.0); Immature Granulocytes # (auto) 0.02 K/uL (0.01-0.20); Immature Granulocytes % (auto) 0.3 %; Lymphocytes # (auto) 0.43 K/uL (1.20-3.40); Lymphocytes % (auto) 7.2 %; Mean Corpuscular Hemoglobin 26.1 pg (25.0-34.0); Mean Corpuscular Hgb Conc 30.2 g/dL (32.0-36.0); Mean Corpuscular Volume 86.5 fL (80.0-100.0); Mean Platelet Volume 11.3 fL (9.4-12.4); Monocytes # (auto) 0.65 K/uL (0.11-0.59); Monocytes % (auto) 10.9 %; Neutrophils # (auto) 4.06 K/uL (1.40-6.50); Neutrophils % (auto) 67.7 %; Platelet Count 117 K/uL (130-400); Platelet Estimate Decreased (Normal); Polychromasia 1+; RDW Coefficient of Variation 22.2 % (11.5-14.5); RDW Standard Deviation 71.1 fL (36.4-46.3); Red Blood Count 3.03 M/uL (4.20-5.40); White Blood Count 5.99 K/ul (4.8-10.8)
--- NOTE | 2024-12-03 10:10 | CT Scan Report ---
CT SCAN OF THE ABDOMEN AND PELVIS WITH IV CONTRAST CLINICAL HISTORY: Multiple falls. Liver transplant in June. COMPARISON STUDY: CT of the abdomen and pelvis November 06, 2024. TECHNIQUE: Following the IV administration of 94 cc of Optiray 320, CT scan of the abdomen and pelvi s is performed from the lung bases to the proximal femora. Images are reviewed in the axial, sagittal , and coronal planes. IV contrast was administered without complication. A dose lowering technique wa s utilized adhering to the principles of ALARA. FINDINGS: A moderate to large right pleural effusion has increased in size since CT of November 06, 2024 . Extensive body wall edema has decreased since that exam. A small amount of ascites within the abdom en and pelvis is also decreased since prior CT. Transplanted liver is noted. A percutaneous drain wit hin a gas and fluid containing right hepatic lobe collection is noted. The collection has mildly decr eased in size since prior CT. This now measures 4.7 x 1.5 cm. Biliary catheter remains in place. Ther e are no new hepatic collections. 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 These are shown on prior exam. Splenomegaly is unchanged. Abdominal varices are again noted. Adrenal glands, kidneys and pancreas are normal. There is no evidence for traumatic injury to the liver, spleen, adrenal glands, kidneys or pancreas. There is no hydronephrosis. Caliber and wall thickness of small and large bowel are normal. There is no evidence for a bowel obstruction. No lymphadenopathy. Major vasculature is p atent. There are no acute fractures within the lumbar spine, pelvis or hips. Postoperative findings s uggestive of gastric sleeve are again noted. IMPRESSION: 1. No acute traumatic findings within the abdomen or pelvis. 2. Status post liver transplant. Redemonstration of a percutaneous drain within a right hepatic lobe collection suggestive of an abscess which has mildly decreased in size since prior CT. 3. Redemonstration of several splenic infarcts. Splenomegaly and varices. A small amount of ascites, decreased since prior exam. 4. Extensive body wall edema, improved since prior exam. 5. Moderate to large right pleural effusion, increased since prior CT. ACT 112: Negative or not required by law. Electronically signed by: Guero Garcia M.D. 12/03/2024 10:08 AM
[2024-12-03 10:11] LABS: Appearance Urine Clear (Clear); Bilirubin Urine Negative (Negative); Blood Urine Negative (Negative); Color Urine Yellow; Glucose Urine UA Negative (Negative); Ketones Urine Trace (Negative); Leukocyte Esterase Urine Negative (Negative); Nitrite Urine Negative (Negative); Protein Urine Negative (Negative); Specific Gravity Urine 1.022 (1.000-1.030); Urobilinogen Urine Negative (Negative); pH Urine 6.5 (4.5-7.5)
--- NOTE | 2024-12-03 10:23 | CT Scan Report ---
CT SCAN OF THE CERVICAL SPINE CLINICAL HISTORY: Multiple falls. COMPARISON STUDY: Cervical spine CT March 26, 2023. TECHNIQUE: CT scan of the cervical spine is performed from the skull base to the upper thoracic spine . Images are reviewed in the axial, sagittal, and coronal planes. IV contrast was not administered fo r this examination. A dose lowering technique was utilized adhering to the principles of ALARA. CT DOSE: 3650.34 mGy.cm FINDINGS: There are stable findings following C5-C7 anterior and posterior fusions. Hardware is intac t. No acute cervical spine fractures are present. There is mild disc space narrowing and moderate ost eophytosis within the cervical spine. There is no prevertebral edema. IMPRESSION: 1. No acute cervical spine fracture or subluxation. 2. Stable findings following C5-C7 anterior and posterior fusions. ACT 112: Negative or not required by law. Electronically signed by: Guero Garcia M.D. 12/03/2024 10:20 AM
[2024-12-03 10:40] LABS: Troponin I High Sensitivity < 2.3 pg/ml (0-14)
[2024-12-03 10:45] LABS: Alanine Aminotransferase 28 U/L (7-52); Albumin Globulin Ratio 0.8 (0.9-2); Albumin Level 2.9 gm/dl (3.4-5.0); Alkaline Phosphatase 415 U/L (34-104); Anion Gap 3 (3-11); Aspartate Aminotransferase 75 U/L (13-39); BUN Creatinine Ratio 31.4 (10-20); Bilirubin Direct 0.9 mg/dl (0-0.2); Blood Urea Nitrogen 16 mg/dl (6-23); Calcium 8.2 mg/dl (8.6-10.3); Carbon Dioxide 28 mmol/L (21-32); Chloride 108 mmol/L (98-107); Creatinine Clr Calc Pharmacy 158.6 ml/min; Globulin 3.6 gm/dl (2.5-4.0); Glucose 102 mg/dl (70-99(Fasting)); Potassium 4.1 mmol/L (3.5-5.1); Sodium 139 mmol/L (136-145); Total Protein 6.5 gm/dl (6.0-8.3)
[2024-12-03] MEDS: oxyCODONE HCL IR 5 MG TAB (IMMEDIATE RELEASE) PO STA ×2 (13:46→22:13)
--- NOTE | 2024-12-03 16:15 | Electrocardiogram Report ---
Test Reason : Blood Pressure : */* mmHG Vent. Rate : 78 BPM Atrial Rate : 78 BPM P-R Int : 136 ms QRS Dur : 94 ms QT Int : 434 ms P-R-T Axes : 29 -49 21 degrees QTcB Int : 494 ms Sinus rhythm with Premature atrial complexes Left axis deviation Low voltage QRS Poor R wave progression, consider anterior [place] vs. lead placement vs. LVH Abnormal ECG When compared with ECG of 06-Nov-2024 09:44, Premature atrial complexes are now Present Left posterior fascicular block is no longer Present Minimal criteria for Anterior infarct are now Present Confirmed by Mikal Blue ([id number]) on 12/03/2024 4:15:18 PM Referred By: REFERRED SELF Confirmed By: Mikal Blue
--- NOTE | 2024-12-03 17:02 | XRay Report ---
EXAM: Radiograph of the Chest 1 View INDICATION: Line placement TECHNIQUE: Frontal view of the chest. COMPARISON: 11/06/2024 FINDINGS: Lungs and pleural spaces: Significant increase in small to moderate right pleural effusion and dense right basilar airspace consolidation. No pneumothorax. Heart: Shape and configuration within normal limits allowing for technique. Mediastinum: Normal contour. Bones/joints: Visualized portions of anterior and posterior lower cervical fusion hardware grossly intact. Stable deformity, possibly postoperative, of the distal right clavicle which occurred between the 08/05/2024 and 11/06/2024 exams. No acute osseous abnormality. Soft tissues: No abnormality noted. No radiopaque foreign body noted. Tubes, lines and devices: Left peripherally inserted central catheter (PICC) tip in the mid superior vena cava. Stable right basilar pigtail pleural drain. Upper abdomen: No abnormality noted. IMPRESSION: 1. Lines and tubes as above. 2. Significant increase in small to moderate right pleural effusion and dense right basilar airspace consolidation. Compressive atelectasis with or without mucous plugging considered most likely. Pneumonia not excluded. ACT 112: N/A Electronically signed by Christen Castellon 12-03-2024 5:01 PM
[2024-12-03] MEDS: amLODIPine BESYLATE 5 MG TAB PO ONE (18:33)
--- NOTE | 2024-12-03 19:11 | Emergency Department Note ---
ED Visit Note I received the patient in signout from FRANK Kwong at shift change. The patient was seen here in the emergency department this morning after multiple mechanical falls and concerns for hallucinations caused by her medications. Patient feels that her linezolid is causing her to hallucinate. Please see Manisha's dictation regarding complete history and physical examination at the time of initial evaluation. The patient was reevaluated by myself. Please see physical exam below. Patient was waiting on bed placement and transfer to [facility]. Upon reevaluation the patient states that she is now having some increased pain and worsening restless leg syndrome. Patient was ordered pramipexole, which she takes for restless leg syndrome at home. Patient was also ordered a dose of oxy[facility]one IR [facility] mg[facility] do not have an E[facility] for the patient's bed placement at this time. I reached out to Dr. Metcalf with [facility] to have the patient admitted to the hospital as she has been in the emergency department for nearly 16 hours without any ETA for bed placement at [facility]. Dr. Metcalf stated that she would see the patient in medical consult but due to her stable condition we will keep her in the emergency department. I discussed this plan with the patient who verbalized understanding. I talked to the nursing staff about getting the patient in a hospital bed to help keep the patient more comfortable during her extended stay. Upon subsequent reevaluation the patient states that she still having increased pain and she was ordered a dose of morphine at this time. Patient reported pain relief with the morphine. At shift change the patient was still in the emergency department and being evaluated by the [facility] hospitalist group for medical consult and was awaiting bed placement for transfer at [facility]. The patient will be medically managed by Dr. Metcalf the [facility] while awaiting transfer. Please refer to the [facility]'s documentation for further evaluation and management of this patient. PHYSICAL EXAM: VITALS: Vitals are noted on the nurse's note and reviewed by myself. Vital signs stable. GENERAL: This is a 43-year-old female, in no acute distress, nondiaphoretic, well-developed well-nourished. Patient has multiple ecchymotic areas including her face, back, and chest after multiple mechanical falls at home. SKIN: The skin was without rashes, erythema, or significant edema. There is no tenting of the skin. Capillary refill less than 2 seconds. HEAD: Normocephalic. NECK: Supple without nuchal rigidity. No lymphadenopathy. Cervical spine is nontender. No JVD. HEART: Regular rate and rhythm without murmurs gallops or rubs. LUNGS: Clear to auscultation bilaterally without wheezes, rales or rhonchi. Lung sounds are mildly diminished in the bases. No retractions or accessory muscle use. ABDOMEN: Positive bowel sounds x 4. Normal tympanic percussion. Soft, nontender, without masses or organomegaly. No guarding or rebound tenderness. MUSCULOSKELETAL: No muscle atrophy, erythema, or edema noted. Full range of motion without joint tenderness in all extremities. No tenderness to palpation. Normal gait. Strength 5/5 throughout. NEURO: Patient was alert and oriented to person place and time. No focal neurological deficits. .
[2024-12-03] MEDS: PRAMIPEXOLE DIHYDROCHLO 0.5 MG TAB PO STA (22:13)
[2024-12-04] MEDS: MoRPHine SULFATE 4 MG/ML 1 ML CARP\\VIAL IV STA (00:55)
[2024-12-04] MEDS ORDERED: oxyCODONE HCL IR 5 MG TAB (IMMEDIATE RELEASE) PO PRN (02:13)
[2024-12-04] MEDS ORDERED: ALBUTEROL HFA 8 GM INHALER INH PRN ×2 (02:13→02:22)
[2024-12-04] MEDS ORDERED: LOSARTAN POTASSIUM 25 MG TAB PO SCH (02:15)
--- NOTE | 2024-12-04 03:57 | Hospitalist Consultation ---
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 and dense right basilar airspace consolidation. Compressive atelectasis with or without mucous plugging considered most likely. Pneumonia not excluded. ACT 112: N/A Electronically signed by Christen Castellon 12-03-2024 5:01 PM PG Care Time/CCT Total # of Minutes Spent Total Time Spent with Patient: Total time spent is greater than 50% in coordination of care (as documented) at patient's floor/unit and/or counseling patient: Coding Level of Care Code 55874 IN/OBS CONSULT LVL 3,45M Diagnoses Hallucinations R44.3 Frequent falls R29.6 Liver transplant recipient Z94.4 Abscess of liver K75.0 Hypothyroidism, postablative E89.0 Type 2 diabetes mellitus E11.9
[2024-12-04 05:34] LABS: Magnesium 1.9 mg/dl (1.7-2.4); Phosphorus 2.4 mg/dl (2.5-4.9)
--- NOTE | 2024-12-04 05:38 | Emergency Department Note ---
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 Patient had no events throughout the night. Patient was signed out to oncoming provider pending transfer and further care in stable condition. .
[2024-12-04 05:51] LABS: Thyroid Stimulating Hormone 7.126 uIu/ml (0.300-4.500)
[2024-12-04] MEDS: MEROPENEM 1,000 MG in SYRINGE 0 ML IV SCH (06:28)
[2024-12-04 07:12] LABS: T4 Free Thyroxine 1.02 ng/dl (0.61-1.60)
[2024-12-04] MEDS: LEVOTHYROXINE SODIUM 150 MCG TABLET PO SCH (07:25)
[2024-12-04] MEDS: LEVOTHYROXINE SODIUM 25 MCG TABLET PO SCH (07:25)
[2024-12-04] MEDS: oxyCODONE HCL IR 5 MG TAB (IMMEDIATE RELEASE) PO PRN (07:25)
[2024-12-04] MEDS ORDERED: VENLAFAXINE HCL 37.5 MG TAB PO SCH (09:00)
[2024-12-04] MEDS ORDERED: LEVOTHYROXINE SODIUM 150 MCG TABLET PO SCH (09:00)
[2024-12-04] MEDS ORDERED: VENLAFAXINE HCL XR 150 MG CAPXR PO SCH (09:00)
[2024-12-04] MEDS ORDERED: MEROPENEM 1 GM IV SCH (09:00)
[2024-12-04] MEDS ORDERED: LEVOTHYROXINE SODIUM 25 MCG TABLET PO SCH (09:00)
[2024-12-04] MEDS: PROCHLORPERAZINE MALEATE 5 MG TAB PO PRN (09:39)
[2024-12-04] MEDS: ACETAMINOPHEN 500 MG TAB PO PRN (09:42)
[2024-12-04] MEDS: FAMOTIDINE 40 MG TABLET PO SCH (10:05)
[2024-12-04] MEDS: PRAMIPEXOLE DIHYDROCHLO 0.5 MG TAB PO SCH (10:05)
[2024-12-04] MEDS: ursodioL 300 MG CAP PO SCH (10:05)
[2024-12-04] MEDS: ASPIRIN 81 MG CHEW PO SCH (10:05)
[2024-12-04] MEDS: cycloSPORINE (SANDIMMUNE) 25 MG CAP PO SCH (10:06)
[2024-12-04] MEDS: CLOPIDOGREL BISULFATE 75 MG TAB PO SCH (10:06)
[2024-12-04] MEDS: GABAPENTIN 300 MG CAP PO SCH (10:06)
[2024-12-04] MEDS: LINEZOLID 600 MG TAB PO SCH (10:06)
[2024-12-04] MEDS: POTASSIUM CHLORIDE PWD 20 MEQ PACK PO SCH (10:06)
[2024-12-04] MEDS: BUMETANIDE 1 MG TAB PO SCH (10:06)
[2024-12-04] MEDS: MICAFUNGIN SCH (10:15)
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
[2024-12-04] MEDS ORDERED: GLUCAGON FOR INJ 1 MG VIAL SQ PRN (12:16)
[2024-12-04] MEDS ORDERED: GLUCOSE 10 TAB/TUBE PO PRN (12:16)
[2024-12-04] MEDS ORDERED: GLUCOSE 40% GEL 15 GM TUBE PO PRN (12:16)
[2024-12-04] MEDS ORDERED: CARBOHYDRATES FOR HYPOGLYCEMIA PO PRN (12:16)
[2024-12-04] MEDS ORDERED: DEXTROSE 50% 50 ML SYRINGE IV PRN (12:16)
[2024-12-04 12:39] LABS: Appearance Urine Clear (Clear); Bilirubin Urine Negative (Negative); Blood Urine Negative (Negative); Color Urine Yellow; Glucose Urine UA Negative (Negative); Ketones Urine Negative (Negative); Leukocyte Esterase Urine Negative (Negative); Nitrite Urine Negative (Negative); Protein Urine Negative (Negative); Specific Gravity Urine 1.006 (1.000-1.030); Urobilinogen Urine Negative (Negative); pH Urine 5.5 (4.5-7.5)
--- NOTE | 2024-12-04 12:49 | XRay Report ---
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 No acute fracture or dislocation seen at the right hum erus. No radiopaque foreign body. No evidence of osteomyelitis. IMPRESSION: No fracture seen. ACT 112: Negative or not required by law. Electronically signed by: Spenser Aiken M.D. 12/04/2024 12:47 PM
[2024-12-04] MEDS ORDERED: bisacodyL 5 MG TABEC PO SCH (13:01)
[2024-12-04 13:11] LABS: Albumin Level 2.9 gm/dl (3.4-5.0); BUN Creatinine Ratio 25.6 (10-20); Bilirubin Direct 0.8 mg/dl (0-0.2); Calcium 8.4 mg/dl (8.6-10.3); Creatinine Clr Calc Pharmacy 207.4 ml/min; Potassium 4.2 mmol/L (3.5-5.1); Total Protein 6.5 gm/dl (6.0-8.3)
[2024-12-04 13:45] LABS: Hematocrit (blood only) 27.2 % (37.0-47.0); Hemoglobin 8.2 g/dl (12.0-16.0); Mean Corpuscular Hemoglobin 26.1 pg (25.0-34.0); Mean Corpuscular Hgb Conc 30.1 g/dL (32.0-36.0); Mean Corpuscular Volume 86.6 fL (80.0-100.0); Mean Platelet Volume 11.3 fL (9.4-12.4); Platelet Count 126 K/uL (130-400); RDW Coefficient of Variation 21.9 % (11.5-14.5); Red Blood Count 3.14 M/uL (4.20-5.40); White Blood Count 6.34 K/ul (4.8-10.8)
[2024-12-04] MEDS: ALPRAZolam 0.5 MG TABLET PO PRN (14:57)
[2024-12-04 20:30] LABS: Base Excess VBG 10.5 mEq/L; HCO3 VBG 37 mmol/L; PCO2 VBG 54 mmHg (38-50); PO2 VBG 49 mmHg; pH VBG 7.44 (7.36-7.41)
[2024-12-04 21:15] LABS: Influenza A virus by PCR Negative (Neg); Influenza B virus by PCR Negative (Neg); RSV by PCR Negative (Neg); SARS CoV2 RNA(COVID-19) Ceph NEGATIVE (Negative)
[2024-12-04] MEDS: PANTOprazole 40 MG TAB PO SCH (22:04)
[2024-12-04 23:48] VITALS: TEMP 97.9
[2024-12-05 03:27] VITALS: BP 148/69; PULSE 72; RESP 18; O2SAT 97
--- NOTE | 2024-12-05 07:43 | Discharge Summary ---
Discharge Summary Date of Service date of admission - December 04, 2024 date of discharge - December 05, 2024 Principal Dx & Hospital Course #1 = Principal Diagnosis (1) Hallucinations: (2) Acute metabolic encephalopathy: (3) Liver abscess, transplanted liver: (4) Frequent falls: (5) Liver transplant recipient: (6) Hypothyroidism, postablative: (7) Type 2 diabetes mellitus: (8) History of biliary duct stent placement: (9) Bacteremia: (10) History of cirrhosis: (11) History of CVA (cerebrovascular accident): (12) Recurrent right pleural effusion: (13) Head injury: (14) Diplopia: Plan 43-year-old female with 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 Per the patient's she had been released by [facility] ~11/26/24. Since discharge she had been doing poorly with mild confusion initially then significant worsening in her mental status. expressed concerns that the linezolid was contributing to the confusion. At time of ER presentation on 12/03/24 she had significant bruising mainly on the right side of her body as well as her right forehead. She complained of vertigo, diplopia, ataxia, and severe visual/auditory hallucinations. CBC without leukocytosis. Stable normochromic/normocytic anemia with Hgb = 7.9, HCT = 26 which is near patient's baseline. Thrombocytopenia with platelets = 117 which is near patient's baseline. Coagulation studies were within normal limits, INR = 1.1. Chemistry panel was unremarkable with no anion gap, no electrolyte disturbances, no JOANNA. Lactate was within normal limits. LFTs were mildly abnormal but within patient's baseline range. Ammonia = 38. UA with trace ketones otherwise no evidence of infection. Extensive CT scans without no acute findings. Case was discussed with the transplant team at [facility] in [place]. Patient was accepted in transfer back to [facility] for additional workup & treatment. Since Ms Gutiérrez's liver transplant she has suffered a host of set-backs and complications including: * 10/08/24 - development of large liver abscess with resulting klebsiella oxytoca bacteremia; was in septic shock briefly at [facility], then transferred to [facility] for ongoing care; had percutaneous drain placed into the liver abscess during that stay in [place] * 10/23/24 - presented to [facility] with fever; blood cultures ultimately positive for VRE, pseudomonas, and ca glabrata; 2nd to PICC line infection; required transfer to [facility] once again * 11/07/24 - presented to [facility] with altered mental status; again transferred to [facility] #Hallucinations / encephalopathyetiology unclear at time of admission to [facility] on 12/04/24. Metabolic & toxic factors may have been at play. Brain MRI w/wo contrast was attempted but patient could not complete it unfortunately. Patient does have prior history of stroke several years ago. TSH mildly elevated (7.1) but free T4 was WNL - doubt contributing to presentation. She is on numerous medicines that can affect the brain - venlafaxine, pramipexole, promethazine, prochlorperazine, oxycodone, gabapentin, alprazolam, and linezolid. All of these medicines were placed on hold during her brief stay here including the linezolid. #Frequent fallspossibly due to medication side effects. No neurological deficits or focal weakness noted on exam. Ammonia wnl. Cannot rule out a new infectious process contributing to falls. Patient received head, cervical spine, chest, and abdominal/pelvic CTs on arrival without acute findings. X-ray of the right humerus revealed no acute fracture. #[facility]. Continue Bactrim chronic suppressive therapy q. Friday as previous. Continue cyclosporine 50 mg p.o. twice daily as previous. Transferring to [facility] on 12/05/24. Continue Bumex 2 mg p.o. twice daily as previous. No evidence of decompensation while hospitalized. #Abscess of liver - developed such 09/2024 - s/p percutaneous drain - Patient was afebrile, hemodynamically stable during this brief stay. No evidence of systemic infection or sepsis; blood cultures were negative. Continue home meropenem 1 g IV every 8 hours Had been on linezolid 300 mg p.o. twice daily after discharge from [facility] early November. Note: Patient was unsure why she was switched from daptomycin IV to linezolid upon discharge from [facility] recently; no discharge summary was available for review. Patient's venlafaxine was held as was linezolid due to increased risk of serotonin syndrome (and pt's spouse was concerned the linezolid was causing her confusion). #History of fungemia 2nd PICC line infection - Continue patient's home micafungin 100 mg IV daily. #Post ablative hypothyroidismhas had elevated TSH in the past (peak of 34 in fall 2023); was 7 this admission Continue Synthroid 325 mcg daily; dose was not changed this admission #T2DM - Last A1c 5.2% on 11/07/2024 Diet controlled #Increased urinary frequency UA completely normal while here #recurrent right-sided pleural effusion -per she had the effusion tapped while in [place]; fluid studies, culture results, etc not available for our review -however, her imaging here suggests it has already reacccumulated -defer to team in [place] ongoing management #head injury; c/o diplopia, ataxia, confusion, vertigo -it was uncertain if the neurological symptoms started AFTER her fall with head injury or before-hand -would recommend attempting MRI brain in [place] (we attempted such here without success) to r/o stroke(s) Transferred to [facility] in [place] - accepting provider - Dr. Lyndon Mercado Admission HPI Per Admitting Provider Chaparrita Gutiérrez is a 43-year-old female with PMH of [place] liver cirrhosis s/p liver transplant at [facility] (07/15/2024), hepatic encephalopathy, occipital neuralgia, depression, and T2DM. Recent [place] admissions on 10/08, 10/24, and 11/07 requiring transfer to [facility] where her transplant took place. Patient is being admitted from the ED while awaiting transfer on 12/04, as she is currently been in the emergency department for >24h, and transfer center was alerted this morning, that she would not have a bed for another 24 hours. Patient reports her main concern this morning is head pain/headache. She rates the pain 10/10 at worst, and 9/10 at present. She characterizes it as a constant, "squeezing" pain like her head is about to explode. She has difficulty thinking about what she wants to say. Patient reports she has been having visual hallucinations; "seeing people" such as family members, medical providers, strangers, and friends. For instance, the other night, she thinks she might of fell when she got out of bed because she was scared" trying to get away" from somebody in the bedroom. She has had multiple falls at home. She has been taking oxycodone at home for her head pain. Additional symptoms include nausea (alleviated by Compazine), and increased urinary frequency. Patient denies smoking, tobacco use, recent alcohol use. She does not use supplemental oxygen at home or CPAP at night. ROS: Patient endorses chills, night-sweats, squeezing head pain, confusion, hallucinating, gait instability, recurrent falls, mild pleuritic CP, dry cough, RUQ soreness, nausea, and increased urinary frequency. Patient denies fever, dizziness, lightheadedness, chest pain, chest palpitations, SOB, abdominal pain, vomiting, diarrhea, burning with urination, melena, or blood in the urine/stool. Discharge Exam patient left very early AM of 12/05/24 thus this exam documentation is from her admission exam: gen - severely confused, falling asleep while talking multiple times, eye blinking constantly when trying to fixate on an object, looks sick skin - numerous bruises and extensive ecchymoses on right arm, right chest, right forehead vascular - left arm PICC clean eyes - dilated pupils, at least 5mm in diameter; PERRL; light sensitive; unable to assess fully for nystagmus but does appear to have such neck - no JVD mouth - MM dry heart - RRR, s1 s2, 2/6 EDUARDO LSB lungs - decreased BS on right, about 1/[address] right hemithorax; right apex clear; left lung clear; no respiratory distress abd - soft NT ND BS+; large scar present; percutaneous drain entering right abdomen with bilious type material in [place] drain; tiny umbilical hernia ext - trace edema, pulses 2+ b/l feet neuro - no tremor, no asterixis, does not seem to have a focal motor deficit; finger/nose/finger maneuver - very difficult for her to perform such, but no past-pointing psych - severely confused, oriented to person/place only Discharge Plan Discharge Items Patient Disposition: Transfer Acute Care Hospital Reason For Visit: Falls, altered mental status Discharge Diagnosis: 1. numerous falls 2. head injury 3. severe encephalopathy - metabolic and/or toxic factors 4. diplopia/ataxia/vertigo - due to head injury/concussion? acute stroke? MRI brain attempted without success on 12/04/24 5. liver transplant status 6. liver abscess with percutaneous drain 7. biliary stent status 8. recent bacteremia/fungemia - on meropenem, micofungin, zyvox 9. polypharmacy Activity: As commented below Activity Comment: bedrest Non-emergency contact: Primary Care Provider, Specialist and Commanding [employer] Call non-emergency contact if: you have any medication questions Follow-up/Referrals: Roland Timmons PA-C [Primary Care Provider] - Diet: Low Sodium (2gm) Addtl Attending Provider Instructions: Further instructions to follow after your stay at [facility]. Pending Studies at Discharge: Yes Studies:: blood cultures Stand-Alone Forms: My [facility] Skilled Items Patient informed of condition?: Yes DNR: No Discharge Level of Care: Other Communicable Disease: No Discharge Prognosis: Other Lines: Peripheral IV Urinary Catheter: No Medications and DC Order Prescriptions: Continued senna 8.6 mg capsule 17.2 mg PO UD Rx Instructions: 17.2 mg po daily. per , medication is on hold due to antibiotics aspirin 81 mg tablet,chewable 81 mg PO DAILY Hold Instructions: hold bisacodyl [Dulcolax (bisacodyl)] 5 mg tablet,delayed release (DR/EC) 5 mg PO UD Rx Instructions: currently on hold due to antibiotics cyclosporine 100 mg capsule 50 mg PO BID valacyclovir 500 mg Tablet 500 mg PO Q8 PRN (Reason: .BREAKOUTS) clobetasol 0.05 % solution 1 applic TOPICAL BID PRN (Reason: for scalp) promethazine [Promethegan] 25 mg suppository 25 mg LA UD PRN (Reason: Nausea) famotidine 40 mg tablet 40 mg PO UD Rx Instructions: 40 mg po qam. is unsure not listed on his current list from November 19 omeprazole 40 mg Capsule,Delayed Release(Dr/Ec) 40 mg PO UD Rx Instructions: 40 mg po bid. sounds familiar to but he isnt sure if she still takes it prochlorperazine maleate [Compazine] 5 mg tablet 5 mg PO QID PRN (Reason: Nausea) (DME) OneTouch Verio test strips Strip See Rx Instructions .Route Qty: 100 1RF Rx Instructions: Check blood sugars 1x/day. (DME) lancets [Microlet Lancet] Misc See Rx Instructions .Route Qty: 100 1RF Rx Instructions: Check blood sugars 1x/day. potassium chloride 20 mEq Packet 40 meq PO BID Qty: 120 1RF Hold Instructions: hold bumetanide 1 mg Tablet 2 mg PO BID17 Qty: 20 0RF levothyroxine 300 mcg tablet 300 mcg PO DAILY sumatriptan succinate 50 mg tablet 50 mg PO DIRECTED MDD 200mg/24 PRN (Reason: Migraine Headache) clopidogrel 75 mg tablet 75 mg PO DAILY sulfamethoxazole-trimethoprim 800-160 mg tablet 1 tab PO .MON,WED,FRI levothyroxine 25 mcg tablet 25 mcg PO DAILY meropenem 1 gram recon soln 1 g IV Q8H Rx Instructions: 6 am, 2pm, 10 pm ursodiol 300 mg capsule 300 mg PO BID albuterol sulfate 90 mcg/actuation Hfa Aerosol Inhaler 1 puff INHALATION DIRECTED PRN (Reason: sob/wheezing) simethicone 80 mg tablet,chewable 80 mg PO UD PRN (Reason: Other) micafungin 100 mg recon soln 100 mg IV Q24H Rx Instructions: every 24h/100mg Ubrelvy 50 mg Tablet 50 mg PO DIRECTED PRN (Reason: Migraine Headache) acetaminophen [Tylenol Extra Strength] 500 mg tablet 500 mg PO Q6H PRN (Reason: Pain) Qty: 0 0RF Rx Instructions: maximum 2000mg in 24 hours Held losartan 25 mg tablet 25 mg PO UD Hold Instructions: hold Rx Instructions: 25 mg po daily. not on husbands list from November 19 alprazolam 1 mg tablet 1 mg PO BID PRN (Reason: Anxiety) Hold Instructions: held due to severe encephalopathy/falls venlafaxine 150 mg capsule,extended release 24hr 150 mg PO DAILY Hold Instructions: held due to concomitant zyvox usage gabapentin 300 mg Capsule 300 mg PO TID Hold Instructions: held due to severe encephalopathy/falls Ozempic 1 mg/dose (4 mg/3 mL) pen injector 0.25 mg SUBCUT UD Hold Instructions: hold Rx Instructions: per medication is still prescribed but pt hasnt had shot in awhile. isnt sure of last date. wednesdays pramipexole 0.5 mg tablet 0.5 mg PO QID Hold Instructions: on hold due to severe encephalopathy linezolid 600 mg tablet 300 mg PO BID Hold Instructions: held while at [facility] due to spousal concern it is causing severe encephalopathy venlafaxine 37.5 mg Tablet 75 mg PO DAILY Hold Instructions: held due to concomitant Zyvox usage oxycodone 5 mg tablet 5 mg PO DIRECTED PRN (Reason: Pain) Hold Instructions: on hold due to falls/encephalopathy Discontinued triamcinolone acetonide 0.1 % Cream 1 applic EXT TID PRN (Reason: dry, itchy skin on legs/abdominal wall) Qty: 15 0RF Rx Instructions: isnt sure if pt still uses this medication tizanidine 4 mg Tablet 4 mg PO UD Rx Instructions: per , he thinks pt takes this medication but isnt sure. no fill history tramadol 50 mg tablet 50 mg PO UD PRN (Reason: Pain) Rx Instructions: per , he thinks pt takes this medication but isnt sure. methocarbamol 500 mg Tablet 1,000 mg PO UD Rx Instructions: 1000 mg po qid. knows pt has medication but isnt sure if she still takes it Discharge Orders: Discharge Order (Routine); Ordered 12/05/24 Ordered By: Yan Rodriguez Admission Data Admit Date/Time: 12/04/24 11:53 Attending Provider: Yan Rodriguez Admit Provider: Yan Rodriguez Primary Care Provider: Roland Timmons Other Providers: Christal Metcalf Hospital Stay Data Consultations 12/04/24 06:17 ED Decision to Admit Stat Diagnostic Imagining Performed Head CT 12/03/24 08:51 CT SCAN OF THE BRAIN WITHOUT IV CONTRAST CLINICAL HISTORY: Fall. COMPARISON STUDY: Head CT November 06, 2024. TECHNIQUE: Unenhanced axial CT scan of the brain was performed from the vertex to the skull base. A dose lowering technique was utilized adhering to the principles of ALARA. FINDINGS: Brain parenchyma: Mild motion artifact. No acute intracranial hemorrhage, midline shift or mass effect is present. Hyatt-white matter differentiation is preserved. There are no extra-axial fluid collections. There are no findings to suggest acute dural sinus thrombosis or acute territorial infarct. Ventricles, sulci, cisterns: There is no hydrocephalus. The basal cisterns are patent. Calvarium: There is a small right forehead contusion. There are no calvarial fractures. Sinuses and mastoids: The visualized paranasal sinuses are clear. The mastoid air cells are well pneumatized. Orbits: The bony orbits are grossly intact. IMPRESSION: 1. No acute intracranial findings. 2. Small right forehead contusion. No calvarial fractures. ACT 112: Negative or not required by law. Electronically signed by: Guero Garcia M.D. 12/03/2024 9:[address] 12/03/24 08:52 CT SCAN OF THE CERVICAL SPINE CLINICAL HISTORY: Multiple falls. COMPARISON STUDY: Cervical spine CT March 26, 2023. TECHNIQUE: CT scan of the cervical spine is performed from the skull base to the upper thoracic spine. Images are reviewed in the axial, sagittal, and coronal planes. IV contrast was not administered for this examination. A dose lowering technique was utilized adhering to the principles of ALARA. CT DOSE: 3650.34 mGy.cm FINDINGS: There are stable findings following C5-C7 anterior and posterior fusions. Hardware is intact. No acute cervical spine fractures are present. There is mild disc space narrowing and moderate osteophytosis within the cervical spine. There is no prevertebral edema. IMPRESSION: 1. No acute cervical spine fracture or subluxation. 2. Stable findings following C5-C7 anterior and posterior fusions. ACT 112: Negative or not required by law. Electronically signed by: Guero Garcia M.D. 12/03/2024 10:20 AM Abdomen/Pelvis CT 12/03/24 09:00 CT SCAN OF THE ABDOMEN AND PELVIS WITH IV CONTRAST CLINICAL HISTORY: Multiple falls. Liver transplant in June. COMPARISON STUDY: CT of the abdomen and pelvis November 06, 2024. TECHNIQUE: Following the IV administration of 94 cc of Optiray 320, CT scan of the abdomen and pelvis is performed from the lung bases to the proximal femora. Images are reviewed in the axial, sagittal, and coronal planes. IV contrast was administered without complication. A dose lowering technique was utilized adhering to the principles of ALARA. FINDINGS: A moderate to large right pleural effusion has increased in size since CT of November 06, 2024. Extensive body wall edema has decreased since that exam. A small amount of ascites within the abdomen and pelvis is also decreased since prior CT. Transplanted liver is noted. A percutaneous drain within a gas and fluid containing right hepatic lobe collection is noted. The collection has mildly decreased in size since prior CT. This now measures 4.7 x 1.5 cm. Biliary catheter remains in place. There are no new hepatic collections. 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 These are shown on prior exam. Splenomegaly is unchanged. Abdominal varices are again noted. Adrenal glands, kidneys and pancreas are normal. There is no evidence for traumatic injury to the liver, spleen, adrenal glands, kidneys or pancreas. There is no hydronephrosis. Caliber and wall thickness of small and large bowel are normal. There is no evidence for a bowel obstruction. No lymphadenopathy. Major vasculature is patent. There are no acute fractures within the lumbar spine, pelvis or hips. Postoperative findi ngs suggestive of gastric sleeve are again noted. IMPRESSION: 1. No acute traumatic findings within the abdomen or pelvis. 2. Status post liver transplant. Redemonstration of a percutaneous drain within a right hepatic lobe collection suggestive of an abscess which has mildly decreased in size since prior CT. 3. Redemonstration of several splenic infarcts. Splenomegaly and varices. A sma ll amount of ascites, decreased since prior exam. 4. Extensive body wall edema, improved since prior exam. 5. Moderate to large right pleural effusion, increased since prior CT. ACT 112: Negative or not required by law. Electronically signed by: Guero Garcia M.D. 12/03/2024 10:[address] 12/03/24 09:00 CT SCAN OF THE CHEST WITH IV CONTRAST CLINICAL HISTORY: Multiple falls. Liver transplant in June. COMPARISON STUDY: Chest radiograph November 06, 2024. Chest CT February 16, 2024. CT of the abdomen and pelvis November 06, 2024. TECHNIQUE: Following the IV administration of 94 cc of Optiray 320, CT scan of the thorax was performed from the thoracic inlet to the upper abdomen. Images are reviewed in the axial, sagittal, and coronal planes. IV contrast was administered without complication. A dose lowering technique was utilized adhering to the principles of ALARA. FINDINGS: A left PICC is in place. There is no evidence for traumatic injury to the thoracic aorta. There is no pericardial effusion. No thoracic lymphadenopathy is present. There is no pneumothorax. A moderate to large right pleural effusion has significantly increased in size since abdominal CT of November 06, 2024. Subpleural opacities within the right lungs favor atelectasis. There is no consolidation to suggest pneumonia. Prominent right cardiophrenic angle lymph nodes are similar to abdominal CT of November 06, 2024. Right anterior upper chest wall skin thickening with subcutaneous stranding and several nodular densities measuring up to 1.7 cm is noted. There are collaterals within the chest wall. The transplanted liver, biliary drain, hepatic drain, splenomegaly and suspected splenic infarcts are better depicted on the CT of the abdomen and pelvis which will be reported separately. No acute rib or thoracic spine fractures are present. IMPRESSION: 1. Right upper anterior chest wall skin thickening, subcutaneous stranding and small nodular densities. The findings favor a contusion. An infectious process could appear similar although is considered less likely. 2. Moderate to large right pleural effusion, significantly increased in size since abdominal CT of November 06, 2024. 3. No pneumothorax. No acute fractures within the bony thorax. 4. Transplanted liver, biliary drain, hepatic fluid collection containing a drain, splenomegaly and suspected splenic infarcts better depicted on the CT of the abdomen and pelvis which will be reported separately. ACT 112: Negative or not required by law. Electronically signed by: Guero Garcia M.D. 12/03/2024 9:58 AM Chest X-Ray 12/03/24 16:22 EXAM: Radiograph of the Chest 1 View INDICATION: Line placement TECHNIQUE: Frontal view of the chest. COMPARISON: 11/06/2024 FINDINGS: Lungs and pleural spaces: Significant increase in small to moderate right pleural effusion and dense right basilar airspace consolidation. No pneumothorax. Heart: Shape and configuration within normal limits allowing for technique. Mediastinum: Normal contour. Bones/joints: Visualized portions of anterior and posterior lower cervical fusion hardware grossly intact. Stable deformity, possibly postoperative, of the distal right clavicle which occurred between the 08/05/2024 and 11/06/2024 exams. No acute osseous abnormality. Soft tissues: No abnormality noted. No radiopaque foreign body noted. Tubes, lines and devices: Left peripherally inserted central catheter (PICC) tip in the mid superior vena cava. Stable right basilar pigtail pleural drain. Upper abdomen: No abnormality noted. IMPRESSION: 1. Lines and tubes as above. 2. Significant increase in small to moderate right pleural effusion and dense right basilar airspace consolidation. Compressive atelectasis with or without mucous plugging considered most likely. Pneumonia not excluded. ACT 112: N/A Electronically signed by Christen Castellon 12-03-2024 5:01 PM Humerus X-Ray 12/04/24 12:12 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 No acute fracture or dislocation seen at the right humerus. No radiopaque foreign body. No evidence of osteomyelitis. IMPRESSION: No fracture seen. ACT 112: Negative or not required by law. Electronically signed by: Spenser Aiken M.D. 12/04/2024 12:47 PM Pending Results Patient Have Any Pending Studies at Discharge: Yes Discharge Instructions Given to Patient (Per Discharging Provider) Further instructions to follow after your stay at [facility]. Total Time Total Time Spent Total Time Spent (In Minutes): 45 Coding Level of Care Code 14442 INP/OBS DISCH >30 MIN Diagnoses Hallucinations R44.3 Acute metabolic encephalopathy G93.41 Liver abscess, transplanted liver T86.43; K75.0 Frequent falls R29.6 Liver transplant recipient Z94.4 Hypothyroidism, postablative E89.0 Type 2 diabetes mellitus E11.9 History of biliary duct stent placement Z98.890 Bacteremia R78.81 History of cirrhosis Z87.19 History of CVA (cerebrovascular accident) Z86.73 Recurrent right pleural effusion J90 Head injury S09.90XA Diplopia H53.2
[2024-12-05] MEDS ORDERED: SODIUM CHLORIDE 0.9% IV SCH (09:00)
[2024-12-05] MEDS ORDERED: NON-FORMULARY MEDICATION (Sennosides [Senna] 8.6 mg capsule) PO SCH (09:00)
[2024-12-05] MEDS ORDERED: MICAFUNGIN SODIUM IV SCH (09:00)
[2024-12-06] MEDS ORDERED: SULFAMETHOXAZOLE/TRIMETHOPRIM DS 800/160MG TAB PO SCH (09:00)
--- NOTE | 2024-12-07 09:19 | Coding Query ---
CODING QUERY To promote full compliance with coding requirements relating to patient care, provider participation is requested in all cases of medical insurance coder uncertainty. Please assist us with the question(s) below: Coding Question(s): The following documentation is present throughout the chart, "Hallucinationsetiology unclear at this time. Consider medication side effects. Patient thinks her symptoms are due to to linezolid." Could you please indicate the most likely cause of the patient's hallucinations, if known, by placing an x in the parenthesis below? Hallucinations due to: Adverse effect of linezolid ( ) Adverse effect of other medication (please specify medication) ( ) Adverse effect of unknown medication ( ) Metabolic Encephalopathy (per discharge summary, documentation states "severe encephalopathy - metabolic and/or toxic factors") ( x ) Toxic Encephalopathy ( ) Unknown cause ( ) Other cause ( ) please specify Physician's Response(s): Thank you Kimberley Awan Principal Diagnosis: "that condition established after study, to be chiefly responsible for occasioning the admission of the patient to the hospital for care." Co-Existing Principal Diagnosis: "when two or more diagnoses equally meet the criteria for principal diagnosis as determined by the circumstances of admission, diagnostic work up, and/or therapy provided, and the Alphabetic Index, Tabular List, or another coding guideline does not provide sequencing direction, any one of the diagnoses may be sequenced first." "When the physician has documented what appears to be a current diagnosis in the body of the record, but has not included the diagnosis in the final diagnostic statement, the physician should be asked whether the diagnosis should be added." ([facility] QTR90. p3-4) NATED
== END 2024-12-05 08:07 | disposition short-term general hospital (02) | DRG 70 ==
LOC: SUATTDRO → ED 08:31 → 2S 12-04 11:53
DX: Z88.8 Allergy status to other drugs, medicaments and biological substances; S00.83XA Contusion of other part of head, initial encounter; Z88.5 Allergy status to narcotic agent; Z79.85 Long-term (current) use of injectable non-insulin antidiabetic drugs; Z79.02 Long term (current) use of antithrombotics/antiplatelets; K75.0 Abscess of liver; I25.2 Old myocardial infarction; Z79.620 Long term (current) use of immunosuppressive biologic; S20.213A Contusion of bilateral front wall of thorax, initial encounter; G92.8 Other toxic encephalopathy; Z79.82 Long term (current) use of aspirin; W19.XXXA Unspecified fall, initial encounter; D69.6 Thrombocytopenia, unspecified; K21.9 Gastro-esophageal reflux disease without esophagitis; T50.995A Adverse effect of other drugs, medicaments and biological substances, initial encounter; Z79.2 Long term (current) use of antibiotics; Z86.19 Personal history of other infectious and parasitic diseases; Y71.2 Prosthetic and other implants, materials and accessory cardiovascular devices associated with adverse incidents; I69.398 Other sequelae of cerebral infarction; F41.1 Generalized anxiety disorder; T82.7XXA Infection and inflammatory reaction due to other cardiac and vascular devices, implants and grafts, initial encounter; Z79.899 Other long term (current) drug therapy; Z87.891 Personal history of nicotine dependence; G93.41 Metabolic encephalopathy; B49 Unspecified mycosis; S40.021A Contusion of right upper arm, initial encounter; Z79.890 Hormone replacement therapy; D64.9 Anemia, unspecified; S51.831A Puncture wound without foreign body of right forearm, initial encounter; E89.0 Postprocedural hypothyroidism; E11.43 Type 2 diabetes mellitus with diabetic autonomic (poly)neuropathy; R29.6 Repeated falls; R35.0 Frequency of micturition; G25.81 Restless legs syndrome; T86.43 Liver transplant infection; J90 Pleural effusion, not elsewhere classified